=== PATIENT | male | born 1955 | race Caucasian/White ===

== ENCOUNTER 2022-09-04 12:30 | Outpatient (RCR) | payer OTHER, SELFPAY | END 2022-09-18 13:25 | disposition home or self-care (01) | LOC: PT 12:30 | PROVIDERS: PCP Nurse Practitioner Family | DX: M51.36 Other intervertebral disc degeneration, lumbar region (principal); M54.9 Dorsalgia, unspecified | CPT/HCPCS: 97010; 97014; 97110; 97140; 97163 ==

== ENCOUNTER 2022-09-06 09:55 | Outpatient (OUT) | payer OTHER, SELFPAY ==
--- NOTE | 2022-09-06 10:05 | PM.CN ---
Consult Note: HPI Data of Consult Patient: known to practice within the last 3 years Consult date: 09/06/22 Requesting Physician: CASIE THOMAS NP Primary Care Provider: KATHERINE MARTINEZ Consult Narrative Reason for consult: back pain Narrative: Patient is here for f/u of back pain . Pain today is bilat lumbar area and travels to right thigh with heaviness to right leg . He is seeing neurosurgeon for surgery eval. He is currently undergoing PT. No new sensorimotor or bowel or bladder issues. No adverse medication SE. Medication regimen assists patient with being better able to complete ADLs. cc:: CC: CASIE THOMAS NP Review of Systems ROS Status of ROS 10 or more systems reviewed and unremarkable except as noted in history and below Musculoskeletal Reports: back pain Exam Constitutional Documenting provider has reviewed patient's vital signs: yes Common normals: no apparent distress, average body habitus, oriented x3, healthy appearing, alert and well nourished General appearance: cooperative, comfortable and well developed Orientation/consciousness: Yes awake, Yes oriented to person, Yes oriented to place and Yes oriented to time HENMT Common normals: normocephalic and moist oral mucous membranes Respiratory Common normals: normal respiratory effort, no retractions and no use of accessory muscles Effort & inspection: able to speak in complete sentences and symmetric chest movement Back & Pelvis Lumbar spine/lower back: ROM limited, pain with ROM, lumbar spinal tenderness, paraspinal muscle tenderness, paraspinal muscle spasm and straight leg raise negative bilaterally Other: positive facet loading muscle strength 3/5 right LE, 4/5 left with intact sensation Assessment and Plan Assessment and Plan (1) Lumbar spondylosis: (2) Muscle spasm: Plan yearly UDS do not take NSAIDS with eliquis keep f/u with neurosurgeon
== END 2022-09-06 09:56 | disposition home or self-care (01) ==
LOC: PM 09:55
PROVIDERS: PCP Nurse Practitioner Family; Visit Provider Nurse Practitioner
DX: M47.816 Spondylosis without myelopathy or radiculopathy, lumbar region (principal); M62.838 Other muscle spasm
CPT/HCPCS: G0463

== ENCOUNTER 2022-11-08 10:52 | Observation (INO) | payer OTHER, SELFPAY ==
[2022-11-08 10:55] VITALS: BP 155/101; PULSE 77; RESP 16; TEMP 36.4; O2SAT 96; BMI 27.1
--- NOTE | 2022-11-08 11:04 | ECG_ITS ---
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
--- NOTE | 2022-11-08 11:05 | ED_ITS ---
HPI - General Adult General Chief complaint: Back Pain/Injury Stated complaint: POST OP SURGICAL PROBLEMS Time Seen by Provider: 11/08/22 10:54 Source: patient and family Mode of arrival: Wheelchair Limitations: physical limitation History of Present Illness HPI narrative: 67-year-old male presents for not being able to take care of himself. Four days ago he had lumbar surgery and had hardware installed. He was released home yesterday and he feels he was released too early and he can't take care of himself. He does have a physical complaints such as a fever or vomiting. He is on oxycodone at home for the pain. He's having trouble getting up and moving around and caring for himself. His physicians office directed here. Related Data Home Medications Medication Instructions Recorded Confirmed acetaminophen 325 mg tablet 325 mg PO Q6H PRN pain 09/06/22 11/08/22 (Tylenol) albuterol sulfate 90 mcg/actuation 2 puff inhalation Q4H PRN 09/06/22 11/08/22 aerosol inhaler shortness of breath or wheezing apixaban 5 mg tablet (Eliquis) 5 mg PO Q12H 09/06/22 11/08/22 atorvastatin 40 mg tablet 40 mg PO QDAY 09/06/22 11/08/22 baclofen 10 mg tablet 10 mg PO QDAY 09/06/22 11/08/22 eye promise QDAY 09/06/22 furosemide 20 mg tablet 20 mg PO QDAY 09/06/22 11/08/22 lisinopril 20 mg tablet 20 mg PO QDAY 09/06/22 11/08/22 metoprolol tartrate 25 mg tablet 25 mg PO QDAY 09/06/22 11/08/22 naloxone 4 mg/actuation nasal spray intranasal Q3M 09/06/22 nortriptyline 25 mg capsule 25 mg PO .hs 09/06/22 11/08/22 omeprazole 40 mg capsule,delayed 40 mg PO QDAY 09/06/22 11/08/22 release oxybutynin chloride 10 mg 10 mg PO QDAY 09/06/22 11/08/22 tablet,extended release 24 hr oxycodone-acetaminophen 5 mg-325 1 tab PO BID PRN pain 09/06/22 11/08/22 mg tablet potassium chloride 10 mEq 10 meq PO QDAY 09/06/22 11/08/22 tablet,extended release celecoxib 200 mg capsule (Celebrex) 200 mg PO BID 11/08/22 11/08/22 docusate sodium 100 mg capsule 100 mg PO BID 11/08/22 11/08/22 Previous Rx's Medication Instructions Recorded nortriptyline 25 mg capsule 25 mg PO DAILY pain #30 caps 10/07/22 oxycodone-acetaminophen 5 mg-325 1 tab PO BID PRN pain #60 tabs 10/07/22 mg tablet (Percocet) Allergies Allergy/AdvReac Type Severity Reaction Status Date / Time No Known Drug Allergies Allergy Verified 11/08/22 11:02 Review of Systems ROS Narrative A ten point review of systems is negative except as noted above. Exam Narrative Exam Narrative: Nurses note and vital signs reviewed and patient is not hypoxic. General: The patient appears well and in no apparent distress. Patient is resting comfortably on cart. Skin: Warm, dry, no pallor noted. There is no rash noted. Head: Normocephalic, atraumatic Eye: Normal conjunctiva, no drainage Ears, Nose, Mouth, and Throat: oral mucosa is moist. Nares patent. Cardiovascular: Regular Rate and Rhythm Respiratory: Patient is in no distress, no accessory muscle use, lungs are clear to auscultation, no wheezing, rales or rhonchi Back: surgical dressing in place. No visible erythema GI: soft and nontender Musculoskeletal: The patient has no evidence of calf tenderness, no pitting edema, symmetrical pulses noted bilaterally Neurological: A&O, normal speech Psychiatric: Cooperative Constitutional Vital Signs, click to edit/add: Last Vital Signs Temp 97.5 F L 11/08/22 10:55 Pulse 64 11/08/22 12:31 Resp 16 11/08/22 10:55 BP 153/81 H 11/08/22 12:31 Pulse Ox 96 11/08/22 12:31 O2 Del Method Room Air 11/08/22 10:55 Course Vital Signs Vital signs: Vital Signs Temperature 97.5 F L 11/08/22 10:55 Pulse Rate 77 11/08/22 10:55 Respiratory Rate 16 11/08/22 10:55 Blood Pressure 155/101 H 11/08/22 10:55 Pulse Oximetry 96 11/08/22 10:55 Oxygen Delivery Method Room Air 11/08/22 10:55 Temperature 97.5 F L 11/08/22 10:55 Pulse Rate 64 11/08/22 12:31 Respiratory Rate 16 11/08/22 10:55 Blood Pressure 153/81 H 11/08/22 12:31 Pulse Oximetry 96 11/08/22 12:31 Oxygen Delivery Method Room Air 11/08/22 10:55 Medical Decision Making MDM Narrative Medical decision making narrative: the patient is unable to take care of himself and he'll be admitted for probable ECF placement. Differential Diagnosis Differential Diagnosis: generalized weakness, anemia Lab Data Lab results reviewed: Yes I reviewed the patient's lab results Labs: Lab Results 11/08/22 11/08/22 Range/Units 11:15 12:05 WBC 9.9 (4.0-11.0) 10^3/uL RBC 4.03 L (4.70-6.10) 10^6/uL Hgb 12.6 L (14.0-18.0) g/dL Hct 38.1 L (42.0-54.0) % MCV 94.5 H (80.0-94.0) fL MCH 31.3 (25.9-34.0) pg MCHC 33.1 (29.9-35.2) g/dL RDW 13.7 (11.0-15.0) % Plt Count 222 (150-450) 10^3/uL MPV 10.5 (9.5-13.5) fL Neut % (Auto) 76.7 H (43.0-75.0) % Lymph % (Auto) 11.1 L (20.5-60.0) % [place] % (Auto) 8.6 (1.7-12.0) % Eos % (Auto) 2.2 (0.9-7.0) % Baso % (Auto) 0.8 (0.2-2.0) % Neut # (Auto) 7.6 H (1.4-6.5) 10^3/uL Lymph # (Auto) 1.1 L (1.2-3.8) 10^3/uL [place] # (Auto) 0.9 H (0.3-0.8) 10^3/uL Eos # (Auto) 0.2 (0.0-0.7) 10^3/uL Baso # (Auto) 0.1 (0.0-0.1) 10^3/uL Abs Immat Gran (auto) 0.06 H (0.00-0.03) 10^3/uL Imm/Tot Granulo (auto) 0.6 H (0.0-0.5) % Sodium 136 (136-145) mmol/L Potassium 3.9 (3.5-5.1) mmol/L Chloride 102 (98-107) mmol/L Carbon Dioxide 27.0 (21.0-32.0) mmol/L Anion Gap 10.9 BUN 11.0 (7.0-18.0) mg/dL Creatinine 1.29 (0.70-1.30) mg/dL Est GFR ( Amer) >60 (>=60) Est GFR (Non-Af Amer) 56 L (>=60) BUN/Creatinine Ratio 8.5 Glucose 97 (74-106) mg/dL Calcium 8.5 (8.5-10.1) mg/dL Urine Color Yellow (YELLOW) Urine Clarity Clear (CLEAR) Urine pH 7.0 (5.0-9.0) Ur Specific [place] 1.020 (1.005-1.025) Urine Protein Negative (NEG/TRACE) mg/dL Urine Glucose (UA) Negative (NEGATIVE) mg/dL Urine Ketones Trace A (NEGATIVE) mg/dL Urine Occult Blood Negative (NEGATIVE) Urine Nitrite Negative (NEGATIVE) Urine Bilirubin Negative (NEGATIVE) Urine Urobilinogen 0.2 (0.2-1.0) EU/dL Ur Leukocyte Esterase Negative (NEGATIVE) ECG Data Attestation: I personally reviewed and interpreted this ECG as follows: (EKG on my interpretation shows normal sinus rhythm) Discharge Plan Discharge Chief Complaint: Back Pain/Injury Clinical Impression: Generalized weakness Patient Disposition: Admitted as Observation Time of Disposition Decision: 12:38 Condition: Good Prescriptions / Home Meds: No Action nortriptyline 25 mg capsule 25 mg PO DAILY Qty: 30 2RF oxycodone-acetaminophen [Percocet] 5-325 mg tablet 1 tab PO BID PRN (Reason: pain) Qty: 60 0RF albuterol sulfate 90 mcg/actuation HFA aerosol inhaler 2 puff INHALATION Q4H PRN (Reason: shortness of breath or wheezing) Hold Instructions: Doctor's Order Eliquis 5 mg tablet 5 mg PO Q12H atorvastatin 40 mg tablet 40 mg PO QDAY baclofen 10 mg tablet 10 mg PO QDAY furosemide 20 mg tablet 20 mg PO QDAY lisinopril 20 mg tablet 20 mg PO QDAY metoprolol tartrate 25 mg tablet 25 mg PO QDAY naloxone 4 mg/actuation spray,non-aerosol INTRANASAL Q3M nortriptyline 25 mg capsule 25 mg PO .hs omeprazole 40 mg capsule,delayed release(DR/EC) 40 mg PO QDAY oxybutynin chloride 10 mg tablet extended release 24hr 10 mg PO QDAY oxycodone-acetaminophen 5-325 mg tablet 1 tab PO BID PRN (Reason: pain) potassium chloride 10 mEq tablet extended release 10 meq PO QDAY acetaminophen [Tylenol] 325 mg tablet 325 mg PO Q6H PRN (Reason: pain) eye promise QDAY celecoxib [Celebrex] 200 mg capsule 200 mg PO BID docusate sodium 100 mg capsule 100 mg PO BID Referrals: KATHERINE MARTINEZ [Primary Care Provider] - 1 week
--- NOTE | 2022-11-08 11:12 | PC.NURSE ---
pt had back surgery to correct bulging discs on 11/04. had stayed in hospital for the last few days, and was d/c'd yesterday. Pt worried he is unable to take care of himself at home at this time and believes he needs to go to a rehab facility.
[2022-11-08 11:47] LABS: Basophils Absolute Auto 0.1 10^3/uL (0.0-0.1); Basophils Percent Auto 0.8 % (0.2-2.0); Eosinophils Absolute Auto 0.2 10^3/uL (0.0-0.7); Eosinophils Percent Auto 2.2 % (0.9-7.0); Hematocrit 38.1 % (42.0-54.0); Hemoglobin 12.6 g/dL (14.0-18.0); Immature Granulocytes Abs Auto 0.06 10^3/uL (0.00-0.03); Immature Granulocytes Pct Auto 0.6 % (0.0-0.5); Lymphocytes Absolute Auto 1.1 10^3/uL (1.2-3.8); Lymphocytes Percent Auto 11.1 % (20.5-60.0); Mean Corpuscular HGB Conc 33.1 g/dL (29.9-35.2); Mean Corpuscular Hemoglobin 31.3 pg (25.9-34.0); Mean Corpuscular Volume 94.5 fL (80.0-94.0); Mean Platelet Volume 10.5 fL (9.5-13.5); Monocytes Absolute Auto 0.9 10^3/uL (0.3-0.8); Monocytes Percent Auto 8.6 % (1.7-12.0); Neutrophils Absolute Auto 7.6 10^3/uL (1.4-6.5); Neutrophils Percent Auto 76.7 % (43.0-75.0); Platelet Count 222 10^3/uL (150-450); Red Blood Count 4.03 10^6/uL (4.70-6.10); Red Cell Distribution Width 13.7 % (11.0-15.0); White Blood Count 9.9 10^3/uL (4.0-11.0)
[2022-11-08 11:57] LABS: Anion Gap 10.9; BUN Creatinine Ratio 8.5; Calcium 8.5 mg/dL (8.5-10.1); Chloride 102 mmol/L (98-107); Estimated GFR (African America >60 (>=60); Estimated GFR (Non-African Ame 56 (>=60); Glucose 97 mg/dL (74-106); Potassium 3.9 mmol/L (3.5-5.1); Sodium 136 mmol/L (136-145)
[2022-11-08 12:20] LABS: Bilirubin Urine NEGATIVE (NEGATIVE); Blood Urine NEGATIVE (NEGATIVE); Clarity Urine CLEAR (CLEAR); Color Urine YELLOW (YELLOW); Glucose Urine UA NEGATIVE (NEGATIVE); Ketones Urine TRACE mg/dL (NEGATIVE); Leukocyte Esterase Urine NEGATIVE (NEGATIVE); Nitrite Urine NEGATIVE (NEGATIVE); Protein Urine NEGATIVE (NEG/TRACE); Urobilinogen Urine 0.2 EU/dL (0.2-1.0)
[2022-11-08 12:31] VITALS: BP 153/81; PULSE 64; O2SAT 96
[2022-11-08 12:52] VITALS: BP 154/85; PULSE 65; RESP 18; TEMP 36.5; O2SAT 94
[2022-11-08 13:31] VITALS: BMI 30.7
[2022-11-08 13:46] LABS: Bacteria Urine NONE SEEN #/HPF (NONE SEEN); Cast Seen? NONE SEEN #/LPF (NONE SEEN); Crystals Seen? None Seen #/HPF (None Seen); Mucus Urine NONE SEEN (NONE SEEN); RBC Urine NONE SEEN #/HPF (0-2); Squamous Epithelial Cell Urine RARE #/LPF (NONE/RARE); Urine Culture Indicated NO; WBC Urine NONE SEEN #/HPF (NONE SEEN)
--- NOTE | 2022-11-08 14:23 | SWNOTE1 ---
ARABELLA met with pt to discuss dc needs. Pt lives at home with his brother currently. He had back surgery a few days ago and was discharged yesterday. He was not able to care for himself at home. He stated he was using a walker, but it was not going very good. Pt stated his brother is in worse shape than him so he was not able to help much. Pt wants to go to rehab. 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 Pt would like to go to [facility]. ARABELLA explained to pt he is a precert and SW to see if therapy can see him today to get precert started. SW did let him know it may be a few days before the insurance company approves or denies pt. SW let him know it is possible insurance could deny. Pt voiced understanding. ARABELLA spoke with OT and they are going to see pt and will let PT know as well. ARABELLA sent referral to [facility].
--- NOTE | 2022-11-08 15:52 | SWNOTE1 ---
[facility] can accept once precert goes through. They will start precert once PT/OT is received.
[2022-11-08 16:00] VITALS: O2SAT 92
--- NOTE | 2022-11-08 16:25 | SWNOTE1 ---
PT/OT notes were sent to [facility] for them to start precert.
[2022-11-08 20:10] VITALS: O2SAT 93
[2022-11-08 20:28] VITALS: BP 133/68; PULSE 74; RESP 18; TEMP 36.5; O2SAT 92
[2022-11-08] MEDS: APIXABAN 5 MG TABLET PO (21:53)
[2022-11-08] MEDS: CELECOXIB 200 MG CAPSULE PO (21:53)
[2022-11-08] MEDS: DOCUSATE SODIUM 100 MG CAPSULE PO (21:53)
[2022-11-08] MEDS: METOPROLOL TARTRATE 25 MG TABLET PO (21:53)
[2022-11-08] MEDS: NORTRIPTYLINE HCL 25 MG CAPSULE PO (21:53)
[2022-11-09 04:51] VITALS: BP 130/76; PULSE 66; RESP 16; TEMP 36.5; O2SAT 94
[2022-11-09] MEDS: OXYBUTYNIN CHLORIDE 5 MG TAB XL 10 MG PO (09:47)
[2022-11-09] MEDS: POTASSIUM CHLORIDE 10 MEQ ER TABLET PO (09:47)
[2022-11-09] MEDS: DOCUSATE SODIUM 100 MG CAPSULE PO (09:47)
[2022-11-09] MEDS: APIXABAN 5 MG TABLET PO (09:47)
[2022-11-09] MEDS: METOPROLOL TARTRATE 25 MG TABLET PO (09:47)
[2022-11-09] MEDS: LISINOPRIL 20 MG TABLET PO (09:47)
[2022-11-09] MEDS: ATORVASTATIN CALCIUM 40 MG TABLET PO (09:47)
[2022-11-09] MEDS: OMEPRAZOLE 40 MG CAPSULE.DR PO (09:47)
[2022-11-09] MEDS: FUROSEMIDE 20 MG TABLET PO (09:47)
[2022-11-09] MEDS: CELECOXIB 200 MG CAPSULE PO (09:50)
--- NOTE | 2022-11-09 10:30 | PT.DAILY ---
Physical Therapy Daily Note PT Daily Note/Assess Start: 11/09/22 10:26 Freq: Status: Active Protocol: Document 11/09/22 09:50 RODY (Rec: 11/09/22 10:30 RODY [id number]) Physical Therapy Daily Note/Assessment Time In/Time Out Time In 09:50 Time Out 10:05 Pain In Pain Level 4 Pain Out Pain Level 4 Subjective Subjective Patient reports feeling better , want's to get up and moving. This back surgery has been harder than I thought it would be. Therapeutic Activity Time Therapeutic Activity Minutes (minutes) 15 Therapeutic Activity Units 1 Therapeutic Activity Treatment Bed Mobility Ability Minimum Assist Chair Transfer Ability Standby Assistance Therapeutic Activity Comments Patient requires verbal cues for safe back transfers requiring min assist. Sit to stand at RW SBA. Gait with RW 45 ft. initially with CGA, but as patient fatigues and legs become shaky needed min assist at times with extended standing rest breaks. Total Physical Therapy Time Total Therapy Minutes 15 Total Physical Therapy Units 1 Summary Daily Note Summary Gait is limited with fatigue as legs become shaky after short distances requiring increased assistance. Patient is having increased difficulty completing ADL's in timely manner post SX and would recommend SNF at discharge from acute care facility to improve patient's safety and ability to completed ADL's.
[2022-11-09 10:40] VITALS: O2SAT 94
--- NOTE | 2022-11-09 12:43 | P.HP_ITS ---
H&P: HPI History of Present Illness Chief complaint: POST OP SURGICAL PROBLEMS, GENERALIZED WEAKNESS Narrative: Patient presented to the emergency room with increasing back pain since his back surgery. This can able to manage himself at home. Due to pain control and inability to ambulate safely. Review of Systems ROS Status of ROS 10 or more systems reviewed and unremarkable except as noted in history and below [facility] Medical History (Updated 11/08/22 @ 14:27 by Penelope Yin) Meds Home Medications and Allergies Home Medications Medication Instructions Recorded Confirmed Type acetaminophen 325 mg tablet 325 mg PO Q6H PRN pain 09/06/22 11/08/22 History (Tylenol) albuterol sulfate 90 mcg/actuation 2 puff inhalation Q4H PRN 09/06/22 11/08/22 History aerosol inhaler shortness of breath or wheezing apixaban 5 mg tablet (Eliquis) 5 mg PO Q12H 09/06/22 11/08/22 History atorvastatin 40 mg tablet 40 mg PO QDAY 09/06/22 11/08/22 History baclofen 10 mg tablet 10 mg PO QDAY 09/06/22 11/08/22 History eye promise QDAY 09/06/22 History furosemide 20 mg tablet 20 mg PO QDAY 09/06/22 11/08/22 History lisinopril 20 mg tablet 20 mg PO QDAY 09/06/22 11/08/22 History metoprolol tartrate 25 mg tablet 25 mg PO Q12H 09/06/22 11/08/22 History naloxone 4 mg/actuation nasal spray intranasal Q3M 09/06/22 History nortriptyline 25 mg capsule 25 mg PO BEDTIME 09/06/22 11/08/22 History omeprazole 40 mg capsule,delayed 40 mg PO QDAY 09/06/22 11/08/22 History release oxybutynin chloride 10 mg 10 mg PO QDAY 09/06/22 11/08/22 History tablet,extended release 24 hr oxycodone-acetaminophen 5 mg-325 1 tab PO BID PRN pain 09/06/22 11/08/22 History mg tablet potassium chloride 10 mEq 10 meq PO QDAY 09/06/22 11/08/22 History tablet,extended release celecoxib 200 mg capsule (Celebrex) 200 mg PO BID 09/15/23 09/15/23 History docusate sodium 100 mg capsule 100 mg PO BID 11/08/22 11/08/22 History Allergies Allergy/AdvReac Type Severity Reaction Status Date / Time No Known Drug Allergies Allergy Verified 11/08/22 11:02 Exam Constitutional Vital Signs, click to edit/add: Last Vital Signs Temp 97.7 F 11/09/22 04:51 Pulse 66 11/09/22 04:51 Resp 16 11/09/22 04:51 BP 130/76 11/09/22 04:51 Pulse Ox 94 L 11/09/22 04:51 O2 Del Method Room Air 11/09/22 04:51 Documenting provider has reviewed patient's vital signs: yes Common normals: apparent distress Chest Common normals: inspection of chest normal Respiratory Common normals: normal respiratory effort Cardio Common normals: regular rate, regular rhythm and S2 normal heart sound Back & Pelvis Common normals: no CVA tenderness (Weakness in lower extremity secondary to the pain.) Assessment and Plan Assessment and Plan (1) Muscle spasm: (2) Lumbar spondylosis: (3) Generalized weakness: Plan Weakness in lower extremity secondary to pain secondary to recent back surgery with failed home management. Patient needs rehab for patient safety. Will discuss with the [facility] for discharge once approved by insurance. Follow-up with PCP at discharge from rehab. Medications see list.
[2022-11-09 14:00] VITALS: BP 138/77; PULSE 65; RESP 18; TEMP 36.7; O2SAT 94
== END 2022-11-09 18:01 ==
LOC: ER 13:09 → MS 13:14
PROVIDERS: Admitting Provider Family Medicine; Emergency Provider Emergency Medicine; PCP Nurse Practitioner Family; Visit Provider Family Medicine
DX: R53.1 Weakness (principal); M62.838 Other muscle spasm; M47.816 Spondylosis without myelopathy or radiculopathy, lumbar region; M54.9 Dorsalgia, unspecified; Z79.899 Other long term (current) drug therapy; Z79.01 Long term (current) use of anticoagulants; Z98.890 Other specified postprocedural states
CPT/HCPCS: 36415; 80048; 81001; 85025; 93005; 94761; 97163; 97165; 97530; 99285; G0378

== ENCOUNTER 2022-12-12 09:50 | Outpatient (OUT) | payer OTHER, SELFPAY ==
--- NOTE | 2022-12-12 10:19 | PM.CN ---
Consult Note: HPI Data of Consult Patient: known to practice within the last 3 years Requesting Physician: CASIE THOMAS NP Primary Care Provider: Radames Ricks MD Consult Narrative Reason for consult: F/u Narrative: uGstavo Morales a pleasant 67 year old male presents for evaluation and management of chronic back pain. Patient recently had back surgery, lumbar fusion, and is currently in PT. Patient following up with [facility] in January. Reports 85% pain relief post surgery, continues to benefit from current medication regimen. cc:: CC: CASIE THOMAS NP Review of Systems ROS Status of ROS 10 or more systems reviewed and unremarkable except as noted in history and below Musculoskeletal Reports: back pain PFSH PFSH Medical History Fixation hardware in spine ?Z96.7 - Presence of other bone and tendon implants (ICD-10) Fusion of lumbar spine ?M43.26 - Fusion of spine, lumbar region (ICD-10) Generalized weakness ?R53.1 - Weakness (ICD-10) Pulmonary embolism ?I26.99 - Other pulmonary embolism without acute cor pulmonale (ICD-10) Meds Home Medications and Allergies Home Medications Medication Instructions Recorded Confirmed Type acetaminophen 325 mg tablet 325 mg PO Q6H PRN pain 09/06/22 11/08/22 History (Tylenol) albuterol sulfate 90 mcg/actuation 2 puff inhalation Q4H PRN 09/06/22 11/08/22 History aerosol inhaler shortness of breath or wheezing apixaban 5 mg tablet (Eliquis) 5 mg PO Q12H 09/06/22 11/08/22 History atorvastatin 40 mg tablet 40 mg PO QDAY 09/06/22 11/08/22 History baclofen 10 mg tablet 10 mg PO QDAY 09/06/22 11/08/22 History eye promise QDAY 09/06/22 History furosemide 20 mg tablet 20 mg PO QDAY 09/06/22 11/08/22 History lisinopril 20 mg tablet 20 mg PO QDAY 09/06/22 11/08/22 History metoprolol tartrate 25 mg tablet 25 mg PO Q12H 09/06/22 11/08/22 History naloxone 4 mg/actuation nasal spray intranasal Q3M 09/06/22 History nortriptyline 25 mg capsule 25 mg PO BEDTIME 09/06/22 11/08/22 History omeprazole 40 mg capsule,delayed 40 mg PO QDAY 09/06/22 11/08/22 History release oxybutynin chloride 10 mg 10 mg PO QDAY 09/06/22 11/08/22 History tablet,extended release 24 hr oxycodone-acetaminophen 5 mg-325 1 tab PO BID PRN pain 09/06/22 11/08/22 History mg tablet potassium chloride 10 mEq 10 meq PO QDAY 09/06/22 11/08/22 History tablet,extended release celecoxib 200 mg capsule (Celebrex) 200 mg PO BID 11/08/22 11/08/22 History docusate sodium 100 mg capsule 100 mg PO BID 11/08/22 11/08/22 History oxycodone-acetaminophen 5 mg-325 1 tab PO BID PRN pain #60 tabs 12/12/22 Rx mg tablet (Percocet) Allergies Allergy/AdvReac Type Severity Reaction Status Date / Time No Known Drug Allergies Allergy Verified 11/08/22 11:02 Exam Constitutional Documenting provider has reviewed patient's vital signs: yes Common normals: no apparent distress, oriented x3, healthy appearing, alert and well nourished General appearance: cooperative HENNY Common normals: normocephalic, hearing grossly normal bilaterally and moist oral mucous membranes Head and scalp: normocephalic Eye Common normals: PERRL Pupil: PERRL Neck & C-Spine Common normals: full ROM General: normal visual inspection Chest Common normals: inspection of chest normal Respiratory Common normals: normal respiratory effort, no retractions and no use of accessory muscles Back & Pelvis Lumbar spine/lower back: ROM limited and straight leg raise negative bilaterally Other: surgical scar healed, no redness tenderness or warmth mild back pain no radiculopathy Neuro Common normals: oriented x3, CN's II-XII intact bilaterally, moves all extremities, no focal motor deficits, no sensory deficits noted and deep tendon reflexes 2+ bilaterally Sensorium/orientation: alert Motor exam: strength 5/5 throughout and no movement abnormalities noted Psych Common normals: mental status grossly normal, thought process normal, cooperative, affect normal, speech normal and activity/motor behavior normal Speech: normal speech Thought process: normal thought process Results Additional Findings Additional findings: I have checked an [facility] report on this patient today and there are no aberrancies noted in the prescribing history.?? A drug screen was completed and reviewed within the last year, and if there has not been a drug screen completed we ordered one today to monitor higher risk, state monitored pain medication use. As part of providing excellent, safe, comprehensive care, the following was completed at our patient's visit: 1. A medication reconciliation and review to ensure accurate knowledge of current/active medications, including asking our patients to inform us about any [id number] medications or herbal remedies/nutritional supplements/alternative remedies. 2. A review to specifically ensure our patients have had annual screening for: elevated body mass index (BMI), tobacco use, screening for depression, and screening for unhealthy alcohol use. When screening is concerning, patients are provided with education and the specific recommendation to discuss the concerning health issue and treatment options with their primary care provider. Assessment and Plan Assessment and Plan (1) Lumbar spondylosis: (2) Fusion of lumbar spine: Plan continue current medication regimen, tolerating well without side effects discussed using percocet BID PRN, consistently takes BID f/u with neurosurgery as planned in january f/u 3 months
== END 2022-12-12 09:51 | disposition home or self-care (01) ==
PROVIDERS: PCP Family Medicine; Visit Provider Nurse Practitioner
DX: M47.896 Other spondylosis, lumbar region (principal); M43.27 Fusion of spine, lumbosacral region
CPT/HCPCS: G0463

== ENCOUNTER 2022-12-21 11:49 | Outpatient (OUT) | payer OTHER, SELFPAY ==
[2022-12-21 16:03] LABS: Prostate Specific Antigen Dx <0.13 ng/mL (<=4.00)
== END 2022-12-21 11:50 | disposition home or self-care (01) ==
PROVIDERS: PCP Family Medicine; Visit Provider Urology
DX: Z85.46 Personal history of malignant neoplasm of prostate (principal)
CPT/HCPCS: 36415; 84153

== ENCOUNTER 2023-03-19 09:38 | Outpatient (OUT) | payer OTHER, SELFPAY ==
--- OUTSIDE RECORDS SUMMARY | 2023-03-19 09:43 | XMS_ITS | CCD ---
Author Name Unknown Address [address] [place] [address] Organization [facility] Care Team Providers Care [employer] Con[employer] Finishing Supervisor Name Role Phone Jean Nicholson Unavailable Unavailable Unavailable Julian Matthews Unavailable [phone] Bianka Garcia Unavailable Danna Mcdaniel Unavailable Carmen Witt Unavailable BAMUANN .LAUREN Consulting Unavailable JUAN, KATHERINE Primary Care Unavailable ANDERSON ., DR LORENA Dunham Attending Unavailable ANDERSON ., DR LORENA Dunham Admitting Unavailable BAUMANN .LAUREN Consulting Unavailable JEAN NICHOLSON Primary Care Unavailable ANDERSON ., DR LORENA Dunham Attending Unavailable ANDERSON ., DR LORENA Dunham Admitting Unavailable JUAN, KATHERINE Primary Care Unavailable LAKSHMIPATHY ., MIKE Attending Aracely vailable LAKSHMIPATHY ., MIKE Admitting Aracely vailable HOY ., DR MORALES Consulting Unavailable JUAN, KATHERINE Primary Care Unavailable HOY ., DR MORALES Attending Unavailable HOY ., DR MORALES Admitting Unavailable ZIEBER, DR BRITANY Calabrese Consulting Unavailable ZITOSHA, DR BRITANY Calabrese Consulting Unavailable JUAN, KATHERINE Primary Care Unavailable JUAN, KATHERINE Attending Unavailable JUAN, AKTHERINE Admitting Unavailable JUAN, KATHERINE Consulting Unavailable RAINER ., DR PICHARDO Consulting Unavailable JUAN, KATHERINE Primary Care Unavailable RAINER ., DR PICHARDO Attending Unavailable RAINER ., DR PICHARDO Admitting Unavailable ZIEBER, DR BRITANY Calabrese Consulting Unavailable JUAN, KATHERINE Primary Care Unavailable KATHERINE MARTINEZ Attending Unavailable JUAN, KATHERINE Admitting Unavailable JUAN, KATHERINE Consulting Unavailable SALOMÓN, DR IRAIS Ramos Consulting Unavailable JUAN, KATHERINE Primary Care Unavailable JUAN, KATHERINE Attending Unavailable JUAN, KATHERINE Admitting Unavailable JUAN, KATHERINE Consulting Unavailable JUAN, KATHERINE Consulting Unavailable JUAN, KATHERINE Primary Care Unavailable JUAN, KATHERINE Attending Unavailable JUAN, KATHERINE Admitting Unavailable KUNAL, CYNDI Consulting Unavailable KUNAL, CYNDI Attending Unavailable KUNAL, CYNDI Admitting Unavailable JEAN NICHOLSON Primary Care Unavailable DRAGAN PALENCIA Consulting Unavailable JUSTIN ., DR LORENA Dunham Consulting Unavailable JUAN, KATHERINE Primary Care Unavailable ANDERSON ., DR LORENA Dunham Attending Unavailable ANDERSON ., DR LORENA Dunham Admitting Unavailable BAUMANN ., LAUREN Consulting Unavailable BAUMANN ., LAUREN Consulting Unavailable JUAN, KATHERINE Primary Care Unavailable ANDERSON ., DR LORENA Dunham Attending Unavailable ANDERSON ., DR LORENA Dunham Admitting Unavailable MD Jean Nicholson Primary Care Provider EDEL Garcia Attending Provider Dr. eJan Nicholson Primary Care Leonor Go, Dr. Cecilio Harman Referring Aracely vailable Lyla, Dr. Cecilio Harman Attending Aracely vamaya Witt, Dr. Carmen Fabian Primary Care Unavail able Lyla, Dr. Cecilio Harman Referring Aracely vailable Lyla, Dr. Cecilio Harman Attending Aracely Carmen Connor Unavailable Curtis Meléndez Unavailable Cayden Flores Unavailable Unavailable Cecilio Go Unavailable CECILIO GO Attending Unavailable CARMEN WITT Primary Care Unavailable Millicent, Dr. Carmen Fabian Primary Care Unavail able Ángela, Dr. Curtis Keys Attending Leonor Meléndze, Dr. Curtis Keys Attending Leonor Witt, Dr. Carmen Fabian Primary Care Unavail able Millicent, Dr. Carmen Fabian Primary Care Unavail able Ángela, Dr. Curtis Keys Attending Leonor Meléndez, Dr. Curtis Keys Attending Leonor Witt, Dr. Carmen Fabian Primary Care Unavail harini Witt, Dr. Carmen Fabian Primary Care Unavail harini Meléndez, Dr. Curtis Keys Attending Leonor Go, Dr. Cecilio Harman Attending Aracely Witt, Dr. Carmen Fabian Primary Care Unavail harini Meléndez, Dr. Curtis Keys Attending Leonor Meléndez, Dr. Curtis Keys Admitting Leonor Witt, Dr. Carmen Fabian Referring Unavail harini Witt, Dr. Carmen Fabian Primary Care Unavail Carmen Li Primary Care Physician Marino SPEAR Attending Unavailable Marino SPEAR Attending Unavailable Carmen Witt MD Primary Care Provider [phone] CURTIS MELÉNDEZ Attending Unavailable CARMEN WITT Primary Care Unavailable CURTIS MELÉNDEZ Referring Unavailable CARMEN WITT Primary Care Unavailable MD Jean Nicholson Primary Care Provider JESSICA Mcdaniel Attending Provider Danna Mcdaniel Attending Unavailable Jean Nicholson Primary Care Unavailable Danna Mcdaniel Admitting Unavailable Bianka Garcia Admitting Unavailable Bianka Garcia Attending Unavailable Jean Nicholson [facility] Unavailable Allergies Allergy Classification Reported Allergen(s) Allergy Type Date of Onset Reaction(s) Facility (20 sources) Nitroglycerin; Translations: [nitroglycerin] Drug Allergy 2 Other [facility] (9 sources) Nitroglycerin Drug Allergy Unknown [facility] Other (1 source) Aminolevulinic Acid Drug Allergy [facility] Rep[facility] (1 source) Nitroglycerin Drug Allergy 2 [facility] Repository Medications Current Medications Medication Drug Class(es) Dates Sig (Normalized) Sig (Original) acetaminophen 325 mg / oxyCODONE hydrochloride 5 mg oral tablet (20 sources) Opioid Agonist Start: 11-07-2022 End: 11-13-2022 take 1 tablet by mouth every six hours as needed oxycodone-acetamino phen 5 mg-325 mg oral tablet ; 1 tab(s) orally every 6 hours x 7 days, As Needed Quantity: 28 Refills: 0 Ordered: 07-Nov-2022 Gilda Mcmahon Start: 07-Nov-2022 End: 13-Nov-2022 Generic Substitution Allowed Comments: Caution federal law prohibits the transfer of this drug to any person other than the person for whom it was prescribed.May cause drowsiness. Alcohol may intensify this effect. Use care when operating dangerous machinery.This prescription cannot be refilled.This product contains acetaminophen. Do not use with any other product containing acetaminophen to prevent possible liver damage.Using more of this medication than prescribed may cause serious breathing problems. Start: 02-01-2021 take 1 tablet by siobhan th twice daily Oxycodone-Acetaminophen Active 1 TAB PO Twice daily July 13, 2021 11:00pm Start: 02-01-2021 oxyCODONE-Acet aminophen 5-325 MG Oral Tablet Quantity: 60 Refills: 0 Ordered: 01-Feb-2021 DO Start : 01-Feb-2021 Active Start: 11-16-2018 take 1 tablet by siobhan th every six hours Percocet 325 mg-5 mg Tab tab(s), Oral, q6hr, Refill(s) 0 Start Date: 11/16/18 Status: Ordered Comment on above: Caution federal law prohibits the transfer of this drug to any person other than the person for whom it was prescribed.May cause drowsiness. Alcohol may intensify this effect. Use care when operating dangerous machinery.This prescription cannot be refilled.This product contains acetaminophen. Do not use with any other product containing acetaminophen to prevent possible liver damage.Using more of this medication than prescribed may cause serious breathing problems. [id number] 200 actuat albuterol 0.09 mg/actuat metered dose inhaler (20 sources) beta2-Adrenergic Agonist Start: 07-15-19 take 1 puff(s) by inhalation every four hours Albuterol Sulfate Active 2 PUFF INHALATION Q4H July 13, 2021 11:00pm Start: 01-26-2021 Albuterol Sulf ate HFA 108 (90 Base) MCG/ACT Inhalation Aerosol Solution as directed Quantity: 0 Refills: 0 Ordered: 26-Jan-2021 DO Start : 26-Jan-2021 Active Start: 01-26-2021 Albuterol Sulf ate HFA 108 (90 Base) MCG/ACT Inhalation Aerosol Solution as directed Quantity: 0 Refills: 0 Ordered: 26-Jan-2021 DO Start : 26-Jan-2021 Active take 1 puff(s) by in halation every four hours as needed Albuterol Sulfate HFA 108 (90 Base) MCG/ACT 1 puff as needed Inhalation every 4 hrs Active take 1 puff(s) by in halation every four hours as needed Albuterol Sulfate HFA 108 (90 Base) MCG/ACT 1 puff as needed Inhalation every 4 hrs Active ProAir HFA 108 ( 90 Base) MCG/ACT Inhalation for 17 Active apixaban 5 mg oral tablet (20 sources) Factor Xa Inhibitor Start: 07-16-2021 take 1 tablet by mouth twice daily Apixaban (Eliquis Dvt-Pe Treat 30d Start) 5 mg (74 tabs) Tablets,Dose Pack Active 0 .ROUTE .COMPLEX 74 July 15, 2021 11:00pm orally per package directions then 5mg twice daily after completion of starter pack atorvastatin 40 mg oral tablet (20 sources) HMG-CoA Reductase Inhibitor Start: 07-16-2021 atorvastatin 40 mg Tab Refills(s) 0 Start Date: 12/23/22 Status: Ordered Baclofen (11 sources) gamma-Aminobutyr ic Acid-ergic Agonist Start: 12-23-2022 BACLOFEN 10MG TAB BACLOFEN 10MG TAB Start Date: 12/23/22 Status: Ordered Start: 07-14-2021 take 10 mg by mouth once daily Baclofen Active 10 MG PO Daily July 13, 2021 11:00pm Baclofen Active celecoxib 200 mg oral capsule (1 source) Nonsteroidal Anti-inflammatory Drug Start: 11-07-2022 End: 11-20-2022 take 1 capsule by mouth twice daily at mealtime CeleBREX 200 mg oral capsule ; 1 cap(s) orally 2 times a day x 14 days Quantity: 28 Refills: 0 Ordered: 07-Nov-2022 Gilda Mcmahon Start: 07-Nov-2022 End: 20-Nov-2022 Generic Substitution Allowed Comments: Do not take this drug if you are .Medication should be taken with plenty of water.Obtain medical advice before taking any non-prescription drugs as some may affect the action of this medication.Take with food or milk. Comment on above: Do not take this drug if you are pregnan t.Medication should be taken with plenty of water.Obtain medical advice before taking any non-prescription drugs as some may affect the action of this medication.Take with food or milk. docusate sodium 100 mg oral capsule (2 sources) Start: 11-07-2022 End: 11-07-2023 take 1 capsule by mouth twice daily docusate sodium (Colace) 100 mg capsule TAKE 1 CAPSULE BY MOUTH TWO TIMES A DAY FOR 30 DAYS 60 capsule 0 11/07/2022 11/07/2023 Active Comment on above: Medication should be taken with plenty o f water. furosemide 20 mg oral tablet (20 sources) Loop Diuretic Start: 12-18-2020 take 20 mg by mouth once daily Furosemide Active 20 MG PO Daily at 08July 13, 2021 11:00pm lisinopril 20 mg oral tablet (20 sources) Angiotensin Converting Enzyme Inhibitor Start: 12-18-2020 take 20 mg by mouth once daily Lisinopril Active 20 MG PO Daily July 13, 2021 11:00pm melatonin 10 mg extended release oral tablet (4 sources) Melatonin 10 MG as directed Orally Active metoprolol tartrate 25 mg oral tablet (20 sources) beta-Adrenergic Sushant Start: 02-06-2021 Lopressor 25 mg oral tablet Refills(s) 0 Start Date: 12/23/22 Status: Ordered take 1 tablet by [facility] every twenty-four hours Metoprolol Succinate ER 25 MG 1 tablet Oral Once a day for 30 Active Metoprolol Succi acacia ER 50 MG Oral for 30 Not-Taking Multivitamin preparation (1 source) take 1 tablet by mouth once daily Multiple Vitamins oral tablet ; 1 tab(s) orally once a day Quantity: 0 Refills: 0 Ordered: 21-Oct-2022 Nelli Aj Generic Substitution Allowed nortriptyline 25 mg oral capsule (20 sources) Tricyclic Antidepressant Start: 01-30-20 take 25 mg by mouth at bedtime Nortriptyline Active 25 MG PO Bedtime July 13, 2021 11:00pm omeprazole 40 mg delayed release oral capsule (20 sources) Proton Pump Inhibitor Start: 01-12-20 take 40 mg by mouth once daily Omeprazole Active 40 MG PO Daily at 0800 July 13, 2021 11:00pm Start: 12-18-2020 omeprazole Ora l, Daily, Refills(s) 0 Start Date: 12/18/20 Status: Ordered ondansetron 4 mg disintegrating oral tablet (2 sources) Serotonin-3 Receptor Antagonist Start: 11-07-2022 End: 11-07-2023 take 1 tablet by mouth every eight hours as needed for nausea ondansetron ODT (Zofran-ODT) 4 mg disintegrating tablet DISSOLVE 1 TABLET IN MOUTH EVERY 8 HOURS NEEDED FOR NAUSEA FOR 7 DAYS 12 tablet 0 11/07/2022 11/07/2023 Active 24 hr oxybutynin chloride 10 mg extended release oral tablet (20 sources) Cholinergic Muscarinic Antagonist Start: 12-18-2020 take 10 mg by mouth once daily Oxybutynin Chloride Active 10 MG PO Daily July 13, 2021 11:00pm potassium chloride 10 meq extended release oral tablet (20 sources) Start: 12-18-2020 take 1 tablet by mouth twice daily potassium chloride 10 mEq ER Tab mEq tab(s), Oral, BID, Refills(s) 0 Start Date: 12/18/20 Status: Ordered Start: 10-24-2020 take 10 mEq by mouth once skye y Potassium Chloride Active 10 MEQ PO Daily July 13, 2021 11:00pm predniSONE 10 mg oral tablet (13 sources) Start: 02-01-2021 predniSONE 10 MG Oral Tablet 1 TAB DAILR FIR 90 DAYS Quantity: 0 Refills: 0 Ordered: 01-Feb-2021 DO Start : 01-Feb-2021 Active Start: 11-30-2020 take 10 mg by mouth once daily Prednisone Active 10 MG PO Daily July 15, 2021 11:00pm temazepam 30 mg oral capsule (20 sources) Benzodiazepine Start: 01-11-2021 take 30 mg by mouth at bedtime Temazepam Active 30 MG PO Bedtime July 13, 2021 11:00pm tiZANidine 4 mg oral capsule (20 sources) Central alpha-2 Adrenergic Agonist Start: 07-14-2021 take 4 mg by mouth at bedtime Tizanidine Active 4 MG PO Bedtime July 13, 2021 11:00pm Start: 02-01-2021 take 1 tablet by siobhan th once daily at bedtime tiZANidine (Zanaflex) 4 mg tablet Take 1 tablet (4 mg) by mouth once daily at bedtime. 0 02/01/2021 Active Start: 02-01-2021 take 1 tablet by siobhan th at bedtime tiZANidine HCl - 4 MG Oral Tablet TAKE 1 TABLET AT BEDTIME. Quantity: 0 Refills: 0 Ordered: 01-Feb-2021 DO Start : 01-Feb-2021 Active Start: 12-18-2020 take 1 mg by mouth e very eight hours tiZANidine 4 mg Tab mg tab(s), Oral, q8hr, Refills(s) 0 Start Date: 12/18/20 Status: Ordered traZODone hydrochloride 50 mg oral tablet (1 source) Serotonin Reuptake Inhibitor Start: 12-23-2022 traZODONE 50 mg Tab Refills(s) 0 Start Date: 12/23/22 Status: Ordered Completed/Discontinued Medications Medication Drug Class(es) Dates Sig (Normalized) Sig (Original) aspirin 500 mg oral tablet (3 sources) Platelet Aggregation Inhibitor, Nonsteroidal Anti-inflammatory Drug Aspirin 500 MG TA BS as directed Quantity: 0 Refills: 0 Ordered: 30-Apr-2021 DO Active Aspirin 500 MG T ABS as directed Quantity: 0 Refills: 0 Ordered: 06-Feb-2021 DO Active Eye Vitamins CAPS (4 sources) take 1 capsule into the eye(s) once daily Eye Vitamins CAPS TAKE 1 CAPSULE Daily Quantity: 0 Refills: 0 Ordered: 30-Apr-2021 DO Active Problems Active Problems Problem Classification Problem Date Documented Date Episodic/Chronic Acute and unspecified renal failure (3 sources) Injury of kidney; Translations: [Acute kidney failure, unspecified] Onset: 3 11-05-2022 Episodic Acute myocardial infarction (1 source) Myocardial infarction 09-12-2018 Chronic Aortic; peripheral; and visceral artery aneurysms (20 sources) Abdominal aortic aneurysm; Translations: [Abdominal aneurysm without mention of rupture] Onset: 2 Resolved: 2 Chronic Cancer of prostate (2 sources) Malignant neoplasm of prostate; Translations: [Malignant tumor of prostate] Onset: 3 Chronic Cancer of prostate (6 sources) Personal history of malignant neoplasm of prostate; Translations: [History of malignant neoplasm of prostate] Onset: 2 Episodic Chronic kidney disease (1 source) Chronic kidney disease, unspecified; Translations: [CHRONIC KIDNEY DISEASE UNSPECIFIED] Onset: 2 Chronic Chronic obstructive pulmonary disease and bronchiectasis (9 sources) Chronic obstructive lung disease; Translations: [Chronic obstructive pulmonary disease, unspecified] Onset: 2 Chronic Congestive heart failure; nonhypertensive (1 source) Unspecified diastolic (congestive) heart failure; Translations: [UNSPECIFIED DIASTOLIC HEART FAILURE] Onset: 2 Chronic Coronary atherosclerosis and other heart disease (1 source) Atherosclerotic heart disease of [place] coronary artery without angina pectoris; Translations: [ASHD [place] CA W/O ANGINA PECTORIS] Onset: 2 Chronic Cystic fibrosis (3 sources) Cystic fibrosis, unspecified; Translations: [Cystic fibrosis] Onset: 2 07-14-2021 Chronic Disorders of lipid metabolism (20 sources) Hyperlipidemia; Translations: [Other and unspecified hyperlipidemia] Onset: 3 11-04-2022 Chronic Esophageal disorders (3 sources) Gastroesophageal reflux disease; Translations: [Esophageal reflux] Onset: 3 11-04-2022 Chronic Essential hypertension (20 sources) Essential hypertension; Translations: [Unspecified essential hypertension] Onset: 3 07-14-2021 Chronic Genitourinary symptoms and ill-defined conditions (2 sources) Male urinary stress incontinence; Translations: [Nocturnal enuresis] 09-12-2018 Chronic Genitourinary symptoms and ill-defined conditions (3 sources) Urgent desire to urinate; Translations: [Urgency of urination] Onset: 3 Episodic Heart valve disorders (20 sources) Mitral valve regurgitation; Translations: [Mitral valve disorders] Onset: 3 Chronic Comment on above: mild/moderate; Hypertension with complications and secondary hypertension (5 sources) Hypertensive heart disease with heart failure; Translations: [Hypertensive chronic kidney disease with stage 1 through stage 4 chronic kidney disease, or unspecified chronic kidney disease] Onset: 2 Chronic Osteoarthritis (1 source) Arthritis 09-12-2018 Chronic Other acquired deformities (1 source) Spondylolisthesis, lumbar region; Translations: [Spondylolisthesis, lumbar region] Onset: 3 Episodic Other aftercare (14 sources) Drug therapy finding; Translations: [Long-term (current) use of other medications] Episodic Other aftercare (2 sources) prison (current) use of anticoagulants; Translations: [SHELTER CURRNT USE ANTICOAGULANTS] Onset: 2 Episodic Other and ill-defined heart disease (8 sources) Diastolic dysfunction; Translations: [Other ill-defined heart diseases] Chronic Other and ill-defined heart disease (4 sources) Other ill-defined heart diseases Onset: 2 Resolved: 2 Chronic Other connective tissue disease (1 source) Arthrodesis status; Translations: [Arthrodesis status] Onset: 3 Episodic Other hematologic conditions (1 source) High troponin I level; Translations: [Other specified abnormalities of plasma proteins] 07-14-2021 Episodic Other lower respiratory disease (20 sources) Fibrosis of lung; Translations: [Postinflammatory pulmonary fibrosis] Onset: 3 07-14-2021 Chronic Other lower respiratory disease (9 sources) Parietoalveolar pneumopathy; Translations: [Interstitial pulmonary disease, unspecified] Chronic Other lower respiratory disease (5 sources) Interstitial pulmonary disease, unspecified; Translations: [ILD (interstitial lung disease) J84.9] Onset: 1 Resolved: 2 Chronic Other lower respiratory disease (1 source) Pulmonary fibrosis, unspecified; Translations: [Pulmonary fibrosis, unspecified] Onset: 3 Chronic Other lower respiratory disease (18 sources) History of chronic obstructive airway disease; Translations: [Personal history of other diseases of respiratory system] Resolved: 1 09-12-2018 Episodic Other lower respiratory disease (4 sources) Dyspnea, unspecified; Translations: [Dyspnea R06.00] Onset: 1 Resolved: 1 Episodic Other male genital disorders (1 source) Impotence 07-26-2019 Chronic Other nervous system disorders (1 source) Other chronic pain; Translations: [OTHER CHRONIC PAIN] Onset: 2 Chronic Other nutritional; endocrine; and metabolic disorders (20 sources) Obesity; Translations: [Obesity, unspecified] Onset: 3 Resolved: 1 11-07-2022 Chronic Other nutritional; endocrine; and metabolic disorders (2 sources) Obesity, unspecified; Translations: [Obesity, unspecified] Onset: 3 Chronic Other nutritional; endocrine; and metabolic disorders (2 sources) Body mass index (BMI) 30.0-30.9, adult; Translations: [Body mass index (BMI) 30.0-30.9, adult] Onset: 3 Chronic Other nutritional; endocrine; and metabolic disorders (4 sources) Overweight in adulthood with body mass index of 25 or more but less than 30; Translations: [Overweight] Episodic Other screening for suspected conditions (not mental disorders or infectious disease) (9 sources) Radiology result abnormal; Translations: [Abnormal findings on diagnostic imaging of other specified body structures] Onset: 1 Resolved: 1 Chronic Other screening for suspected conditions (not mental disorders or infectious disease) (19 sources) Electrocardiogram abnormal; Translations: [Nonspecific abnormal electrocardiogram [ECG] [EKG]] Onset: 3 11-07-2022 Episodic Pulmonary heart disease (8 sources) Saddle embolus of pulmonary artery; Translations: [Saddle embolus of pulmonary artery with acute cor pulmonale] Onset: 2 Resolved: 2 Chronic Pulmonary heart disease (20 sources) Pulmonary embolism; Translations: [Other pulmonary embolism and infarction] Onset: 2 07-14-2021 Episodic Residual codes; unclassified (9 sources) Sleep apnea; Translations: [Sleep apnea, unspecified] Chronic Residual codes; unclassified (1 source) Sleep apnea, unspecified; Translations: [Sleep apnea G47.30] Onset: 1 Resolved: 1 Chronic Residual codes; unclassified (1 source) Obstructive sleep apnea (adult) (pediatric); Translations: [OBSTRUCTIVE SLEEP APNEA] Onset: 2 Chronic Screening and history of mental health and substance abuse codes (18 sources) Ex-smoker; Translations: [Personal history of tobacco use] 07-26-2019 Episodic Spondylosis; intervertebral disc disorders; other back problems (9 sources) Spondylosis without myelopathy or radiculopathy, lumbar region; Translations: [Other intervertebral disc degeneration, lumbar region] Onset: 3 11-07-2022 Chronic Spondylosis; intervertebral disc disorders; other back problems (17 sources) Dorsalgia, unspecified; Translations: [Intervertebral disc disorders with radiculopathy, lumbar region] Onset: 2 Episodic Substance-related disorders (1 source) Nicotine dependence, cigarettes, uncomplicated; Translations: [NICOTINE DEPEND CIGARETTES UNCOMP] Onset: 2 Chronic Unclassified (3 sources) LOW BACK PAIN, UNSPECIFIED; Translations: [LOW BACK PAIN, UNSPECIFIED] Onset: 3 Unclassified (1 source) CONTACT W/AND (SUSP) EXPOS COVID-19; Translations: [CONTACT W/AND (SUSP) EXPOS COVID-19] Onset: 2 Unclassified (3 sources) SPINAL STENOSIS, LUMBAR REGION WITHOUT NEUROGENIC EMETERIO 09-19-2022 Comment on above: SPINAL STENOSIS, LUM BAR REGION WITHOUT NEUROGENIC EMETERIO Unclassified (1 source) 6M 06-04-2022 Comment on above: 6M Unclassified (1 source) Primary hypertension 11-04-2022 Unclassified (1 source) Abdominal aortic aneurysm, without rupture, unspecified (CMS/HCC); Translations: [Abdominal aortic aneurysm, without rupture, unspecified (CMS/HCC)] Onset: 3 Unclassified (1 source) Abdominal aortic aneurysm, without rupture, unspecified; Translations: [Abdominal aortic aneurysm, without rupture, unspecified] Onset: 3 Unclassified (1 source) Low back pain, unspecified; Translations: [Low back pain, unspecified] Onset: 4 Unclassified (1 source) Interstitial pulmonary disease, unspecified; Translations: [Interstitial pulmonary disease, unspecified] Onset: 4 Unclassified (1 source) Abdominal aortic aneurysm, without rupture, unspecified; Translations: [Abdominal aortic aneurysm, without rupture, unspecified] Onset: 3 Past or Other Problems Problem Classification Problem Date Documented Date Episodic/Chronic Cardiac dysrhythmias (20 sources) Sinus tachycardia; Translations: [Other specified cardiac dysrhythmias] Onset: 11-07-2022 Episodic Hyperplasia of prostate (1 source) Benign prostatic hypertrophy with outflow obstruction Resolved: 09-12-2018 11-23-2018 Chronic Nonspecific chest pain (3 sources) Other chest pain; Translations: [OTHER CHEST PAIN] Onset: 07-14-2021 Episodic Other aftercare (1 source) Other quality control analyst (current) drug therapy; Translations: [OTH SHELTER CURRENT DRUG THERAPY] Onset: 07-17-2021 Episodic Other circulatory disease (18 sources) Respiratory crackles; Translations: [Abnormal chest sounds] Onset: 11-07-2022 11-07-2022 Episodic Other connective tissue disease (1 source) Pain in right leg; Translations: [Pain in right leg] Onset: 08-23-2022 Episodic Other connective tissue disease (1 source) Pain in left leg; Translations: [Pain in left leg] Onset: 08-23-2022 Episodic Other hematologic conditions (1 source) Other specified abnormalities of plasma proteins; Translations: [OTH SPEC ABNORM PLASMA PROTEINS] Onset: 07-17-2021 Episodic Other lower respiratory disease (20 sources) Dyspnea; Translations: [Other respiratory abnormalities] Onset: 11-07-2022 11-07-2022 Episodic Other lower respiratory disease (4 sources) Other nonspecific abnormal finding of lung field; Translations: [OTH NONSPECIFIC ABN FIND LNG FIELD] Onset: 02-18-2022 Episodic Other lower respiratory disease (1 source) Shortness of breath; Translations: [SHORTNESS OF BREATH] Onset: 02-22-2022 Episodic Other lower respiratory disease (4 sources) Other forms of dyspnea; Translations: [OTHER FORMS OF DYSPNEA] Onset: 11-05-2021 Episodic Other nervous system disorders (17 sources) H/O: respiratory disease; Translations: [Personal history of other specified diseases] Resolved: 02-06-2021 Episodic Other nutritional; endocrine; and metabolic disorders (17 sources) Body mass index 30+ - obesity; Translations: [Body Mass Index 31.0-31.9, adult] Resolved: 02-06-2021 Chronic Unclassified (2 sources) LOW BACK PAIN, UNSPECIFIED; Translations: [LOW BACK PAIN, UNSPECIFIED] Onset: 05-09-2022 Unclassified (1 source) Abdominal aortic aneurysm (AAA) without rupture, unspecified part I71.40 Unclassified (1 source) Abdominal aortic aneurysm, without rupture, unspecified (CMS/HCC); Translations: [Abdominal aortic aneurysm, without rupture, unspecified (CMS/HCC)] Onset: 12-09-2022 Unclassified (1 source) Onset: 12-09-2022 12-09-2022 Results Test Name Value Interpretation Reference Range Facility XR LUMBAR SPINE 2-3 VIEWSon 02-28-2023 XR LUMBAR SPINE 2-3 VIEWS Interpreted By: Curtis Meléndez, STUDY: XR LUMBAR SPINE 2-3 VIEWS; ; 02/28/2023 1:37 pm INDICATION: Signs/Symptoms:low back pain. ACCESSION NUMBER(S): [id number] ORDERING CLINICIAN: CURTIS MELÉNDEZ FINDINGS: AP lateral x-rays of the lumbar spine show a midline laminectomy from L2 down through L4. There is a dowel shaped interbody cage at L4-5 and instrumentation at L4-5 and L5-S1. there is a lateral lumbar fusion at L3-4 with lateral plate and screw construct. The hardware is in good position without any evidence of hardware failure. There is a grade 1 spondylolisthesis at L3-4. There is moderate to severe degenerative changes above the level of the fusion. There is no fractures. Lumbar lordosis is maintained. There is a scoliosis of 10 degrees of the lumbar spine. Bony pelvis is partially visualized and shows surgical clips within the pelvis as well as moderate bilateral SI joint degenerative changes. There is calcification of the anterior vasculature. Signed by: Curtis Meléndez 02/28/2023 3:09 PM Dictation workstation: [id number] [facility] Lab Reportson 12-24-2022 Lab Reports [id number] [facility] Patient Educationon 12-24-19 23 Patient Education Oncology Prostate Cancer Screening Prostate cancer screening is testing that is done to check for the presence of prostate cancer in men. The prostate gland is a walnut-sized gland that is located below the bladder and in front of the rectum in males. The function of the prostate is to add fluid to semen during ejaculation. Prostate cancer is one of the most common types of cancer in men. Who should have prostate cancer screening? Screening recommendations vary based on age and other risk factors, as well as between the professional organizations who make the recommendations. In general, screening is recommended if: ? You are age 50 to 70 and have an average risk for prostate cancer. You should talk with your health care provider about your need for screening and how often screening should be done. Because most prostate cancers are slow growing and will not cause , screening in this age group is generally reserved for men who have a 10- to 15-year life expectancy. ? You are younger than age 50, and you have these risk factors: ? Having a father, brother, or uncle who has been diagnosed with prostate cancer. The risk is higher if your family member's cancer occurred at an early age or if you have multiple family members with prostate cancer at an early age. ? Being a male who is Black or is of [place] or sub-Saharan descent. In general, screening is not recommended if: ? You are younger than age 40. ? You are between the ages of 40 and 49 and you have no risk factors. ? You are 70 years of age or older. At this age, the risks that screening can cause are greater than the benefits that it may provide. If you are at high risk for prostate cancer, your health care provider may recommend that you have screenings more often or that you start screening at a younger age. How is screening for prostate cancer done? The recommended prostate cancer screening test is a blood test called the prostate-specific antigen (PSA) test. PSA is a protein that is made in the prostate. As you age, your prostate naturally produces more PSA. Abnormally high PSA levels may be caused by: ? Prostate cancer. ? An enlarged prostate that is not caused by cancer (benign prostatic hyperplasia, or BPH). This condition is very common in older men. ? A prostate gland infection (prostatitis) or urinary tract infection. ? Certain medicines such as male hormones (like testosterone) or other medicines that raise testosterone levels. A rectal exam may be done as part of prostate cancer screening to help provide information about the size of your prostate gland. When a rectal exam is performed, it should be done after the PSA level is drawn to avoid any effect on the results. Depending on the PSA results, you may need more tests, such as: ? A physical exam to check the size of your prostate gland, if not done as part of screening. ? Blood and imaging tests. ? A procedure to remove tissue samples from your prostate gland for testing (biopsy). This is the only way to know for certain if you have prostate cancer. What are the benefits of prostate cancer screening? ? Screening can help to identify cancer at an early stage, before symptoms start and when the cancer can be treated more easily. ? There is a small chance that screening may lower your risk of dying from prostate cancer. The chance is small because prostate cancer is a slow-growing cancer, and most men with prostate cancer from a different cause. What are the risks of prostate cancer screening? The main risk of prostate cancer screening is diagnosing and treating prostate cancer that would never have caused any symptoms or problems. This is called overdiagnosisand overtreatment. PSA screening cannot tell you if your PSA is high due to cancer or a different cause. A prostate biopsy is the only procedure to diagnose prostate cancer. Even the results of a biopsy may not tell you if your cancer needs to be treated. Slow-growing prostate cancer may not need any treatment other than monitoring, so diagnosing and treating it may cause unnecessary stress or other side effects. Questions to ask your health care provider ? When should I start prostate cancer screening? ? What is my risk for prostate cancer? ? How often do I need screening? ? What type of screening tests do I need? ? How do I get my test results? ? What do my results mean? ? Do I need treatment? Where to find more information ? The [place] [employer]: www.cancer.org ? [employer]: www.auanet.org Contact a health care provider if: ? You have difficulty urinating. ? You have pain when you urinate or ejaculate. ? You have blood in your urine or semen. ? You have pain in your back or in the area of your prostate. Summary ? Prostate cancer is a common type of cancer in men. The prostate gland is located below the bladder and in front of the rectum. This gland adds flu (more content not included)... Normal [facility] Physician Orderon 12-23-2022 Physician Order [id number] Normal [facility] Urology Office/Clinic Noteon 12-23-2022 Urology Office/Clinic Note Chief Complaint Hx of prostate cancer (prostatectomy 2017) HPI Staff 67 yo male here for 1yr f/u with PSA. Previous Dx: h/o prostate ca, nocturia, urgency of urination, pulmonary embolus. S/p prostatectomy 03/21/16. Previous PSA 12/20/21 was <0.13. Current PSA 12/21/22- <0.13. Taking Oxybutynin ER 10mg qd. Dysuria: no Incomplete bladder emptying: no Hematuria: no Frequency: no Urgency: no Nocturia: depends on amount he drinks before bed usually 1x Stream: good stream no straining Leaking: no Post void dripping: no Wearing pads/ Depends: no Urge incontinence: no Stress incontinence: no Incontinence without Sensory Awareness: no Abdominal pain: no Flank pain: recently had a lumbar fusion Sexual complaints: no History of Present Illness Tests reviewed: reviewed UA, PSA I have reviewed the previous health record information and history for this patient from Dr. Spear. I have reviewed and verified the staff HPI to be accurate for this encounter. Review of Systems PHQ Score Initial Depression Screen Score: 0 ROS - Provider Constitutional: denies weight loss, denies hot flashes. Eyes: denies eye problems. Gastrointestinal: denies nausea, denies vomiting. Cardiovascular: denies chest pain or angina. Integumentary: no dryness Musculoskeletal: denies musculoskeletal symptoms. ENMT: denies otolaryngeal symptoms. Respiratory: no shortness of breath. Heme/Lymph: denies easy bleeding tendency, denies easy bruising tendency. Psychiatric: no confusion, no anxiety. Genitourinary: See HPI. Physical Exam Vitals & Measurements HR: 69(Peripheral) RR: 16 BP: 95/62 HT: 69 in HT: 175 cm WT: 81.7 kg WT: 179.74 lb BMI: 26.68 General Appearance: alert, no distress, well nourished, well developed male. Genitourinary: normal scrotum, normal testes, normal urethra, normal epididymis, normal vas deferens/spermatic cord. Flank Pain: none. Bladder: nonpalpable. Assessment/Plan 1. Prostate cancer (C61: Malignant neoplasm of prostate) S/p Prostatectomy done 02/2016. PSA 07/22/19 - <0.05 04/26/20 - <0.05 10/05/20 - <0.05 12/20/21 - <0.13 12/21/22 - <0.13 Discussed PSA levels which remain stable and undetectable. Follow up with PSA in 1 year or sooner if needed. All questions/concerns were discussed. Pt to call the office if he encounters any issues prior. Pt acknowledges understanding. 2. Urgency of urination (R39.15: Urgency of urination) Good stream. Feels he empties completely. Admits he does have to strain some to ensure he is empty. Denies any urgency. UA today negative for blood and infection. Taking Oxybutynin ER 10mg qd. Works well. Cont med wo changes. Follow-up With When Contact Information RAINER JIMENEZ, Marino Calabrese, URL [facility] [address], [place] [phone] Additional Instructions: 1 yr w/ PSA Patient Education Prostate Cancer Screening I, Skye Miller, personally scribed for Dr. Spear on 12/23/2022 11:57:50. . Documentation recorded by the scribe, Skye Miller, accurately reflects the services(s) I performed and decisions made by me. Authenticated by Dr. Spear on 12/23/2022 12:00:59. 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 Medications atorvastatin 40 mg Tab BACLOFEN 10MG TAB, 0 Eliquis 5 mg oral tablet, Oral, BID furosemide 20 mg Tab, Oral, Daily lisinopril 20 mg Tab, Oral, Daily Lopressor 25 mg oral tablet nortriptyline 25 mg Cap omeprazole, Oral, Daily oxybutynin 10 mg ER Tab, 10 mg= 1 tab(s), Oral, Daily, 3 refills Percocet 325 mg-5 mg Tab, Oral, q6hr potassium chloride 10 mEq ER Tab, Oral, BID tiZANidine 4 mg Tab, Oral, q8hr traZODONE 50 mg Tab Allergies nitroglycerin (Hypotension) Social History Alcohol Current, Liquor, Daily, 09/12/2018 Tobacco Former smoker, quit more than 30 days ago Tobacco Use:., 12/18/2020 Former smoker, quit more than 30 days ago Tobacco Use:., 04/21/2020 Former smoker, quit more than 30 days ago Tobacco Use:. Never Smokeless Tobacco Use:. Cigarettes, 07/26/2019 Family History Heart disease: Mother. Hyperlipidemia: Mother. Hypertension: Mother. Kidney disease: Father. Primary malignant neoplasm of female breast: Mother. Lab Results Ambulatory Point of Care Results Bilirubin Urine Dipstick: Negative (more content not included)... Normal [facility] Comment on above: Result Comment: Elec tronically Signed By: Marino SPEAR MD\.br\Date and Time Signed: 12/23/22 12:01 EDT\.br\Electronically Co-Signed By: Skye Miller\.br\Date and Time Co-Signed: 12/23/22 11:59 EDT Post Op (Orthopaedic Surgery )on 11-19-2022 Post Op (Orthopaedic Surgery) Orders Back pain Xray BN Spine, Lumbosacral; 2 or 3 Views; Status:Complete; Done: [id number] 02:21PM Radiologist to Determine Optimal Study : Y What are the patient's signs and symptoms? : pain Provider Impressions ASSESSMENT: Patient is doing well from an L3-L4 lateral lumbar fusion above a prior L4-L5 fusion. We then did an L2-L3, L3-L4 midline laminectomy with a noninstrumented posterolateral fusion. He is doing well. TREATMENT PLAN: We will let him engage in light activities as tolerated, continue with BLT restrictions and using the brace. We will see him back in three months for AP and lateral x-rays of the lumbar spine. Chief Complaint Two weeks out, L3-L4 lateral lumbar fusion with lateral plate and screws, and then an L2-L3, L3-L4 laminectomy with a posterolateral fusion, noninstrumented. L3-4 Lateral Fusion w/Instrumentation Laterally/L2-3, L3-4 Lami 11/04/22, 15 days PO doing good. History of Present IllnessGarry is here for followup. He says he feels good. He is about 70% better with regards to his legs. His back is achy and sore but already feeling better as well. No bowel or bladder changes. No fevers, chills, nausea or vomiting. All in all, he is doing well. Active Problems Problems AAA (abdominal aortic aneurysm) (441.4) (I71.40) Abnormal EKG (794.31) (R94.31) Back pain (724.5) (M54.9) Class 1 obesity with body mass index (BMI) of 30.0 to 30.9 in adult (278.00,V85.30) (E66.9,Z68.30) Dyspnea (786.09) (R06.00) Essential hypertension (401.9) (I10) Former smoker (V15.82) (Z87.891) High risk medication use (V58.69) (Z79.899) Hyperlipidemia (272.4) (E78.5) Lung crackles (786.7) (R09.89) Mitral regurgitation (424.0) (I34.0) mild/moderate Other intervertebral disc degeneration, lumbar region (722.52) (M51.36) Pulmonary embolism (415.19) (I26.99) Pulmonary fibrosis (515) (J84.10) Sinus tachycardia (427.89) (R00.0) Past Medical History Problems History of BMI 31.0-31.9,adult (V85.31) (Z68.31) Resolved Date: 06 Feb 2021 History of Class 1 obesity without serious comorbidity with body mass index (BMI) of 31.0 to 31.9 in adult (278.00,V85.31) (E66.9,Z68.31) Resolved Date: 06 Feb 2021 History of chronic obstructive lung disease (V12.69) (Z87.09) Resolved Date: 06 Feb 2021 History of sleep apnea (V13.89) (Z86.69) Resolved Date: 06 Feb 2021 Surgical History Problems History of Ankle surgery History of Colonoscopy Feb 2017 History of Lung surgery History of Neck surgery History of Prostate surgery History of Prostatectomy History of Spinal surgery History of Tonsillectomy with adenoidectomy Family History Mother Family history of cardiac disorder (V17.49) (Z82.49) Family history of malignant neoplasm (V16.9) (Z80.9) Father Family history of angina pectoris (V17.49) (Z82.49) Family history of hypertension (V17.49) (Z82.49) Family history of malignant neoplasm (V16.9) (Z80.9) Brother Family history of malignant neoplasm (V16.9) (Z80.9) Social History Problems Caffeine use (V49.89) (Z78.9) Former smoker (V15.82) (Z87.891) No alcohol use No illicit drug use Allergies Medication nitroglycerin Adverse Reaction; Hypotension;; Recorded By: Paulette Whitley; 01/23/2021 1:48:33 PM Current Meds Medication NameInstruction Albuterol Sulfate HFA 108 (90 Base) MCG/ACT Inhalation Aerosol Solutionas directed Eliquis 5 MG Oral TabletTake 1 tablet twice daily Furosemide 20 MG Oral TabletTAKE ONE TABLET BY MOUTH DAILY AT 9AM Lipitor 40 MG Oral TabletTAKE 1 TABLET AT BEDTIME. Lisinopril 20 MG Oral TabletTAKE 1 TABLET DAILY. Metoprolol Tartrate 25 MG Oral TabletTake 1 tablet twice a day Nortriptyline HCl - 25 MG Oral CapsuleTAKE 1 CAPSULE AT BEDTIME. Omeprazole 40 MG Oral Capsule Delayed ReleaseTAKE 1 CAPSULE DAILY. oxyBUTYnin Chloride ER 10 MG Oral Tablet Extended Release 24 Hour1 TAB DAILY oxyCODONE-Acetaminophen 5-325 MG Oral TabletTAKE 1 TABLET Twice daily PRN Potassium Chloride ER 10 MEQ Oral Tablet Extended ReleaseTAKE 1 TABLET BY MOUTH EVERY DAY Temazepam 30 MG Oral CapsuleTAKE 1 CAPSULE AT BEDTIME. tiZANidine HCl - 4 MG Oral TabletTAKE 1 TABLET AT BEDTIME. Physical Exam On physical examination, both incisions look good, and they are nicely healed. No redness, warmth, or swelling. He has appropriate back range of motion. He walks appropriately. He has good strength in his legs. Results/Data Xray BN Spine, Lumbosacral; 2 or 3 [id number] 02:21PMCurtis Meléndez Test NameResultFlagReference Xray Lumbar Spine AP + Lateral(Report) FINAL REPORT Interpreted by: CURTIS MELÉNDEZ JON, MD 11/19/22 16:41 Patient Name: ERIK MORALES STUDY: SPINE, LUMBOSACRAL; 2 OR 3 VIEWS; ; 11/19/2022 2:21 pm INDICATION: pain M54.9: Back pain. ACCESSION NUMBER(S): [id number] ORDERING CLINICIAN: CURTIS MELÉNDEZ FINDINGS: AP lateral x-rays of the lumbar spine show an L3-4 lateral lumbar fusion with lateral plate and cage configuration. Cage pl (more content not included)... Normal [facility] 11-[facility]-2022 XR Lumbar spine AP and Lateral [facility]: SPINE, LUMBOSACRAL 2 OR 3 EWSon 11-19-2022 SPINE, LUMBOSACRAL 2 OR 3 VIEWS Patient Name: ERIK MORALES STUDY: SPINE, LUMBOSACRAL; 2 OR 3 VIEWS; ; 11/19/2022 2:21 pm INDICATION: pain M54.9: Back pain. ACCESSION NUMBER(S): [id number] ORDERING CLINICIAN: CURTIS MELÉNDEZ FINDINGS: AP lateral x-rays of the lumbar spine show an L3-4 lateral lumbar fusion with lateral plate and cage configuration. Cage plate and cages are in good position. There is a prior L4-5 L5-S1 fusion which is unchanged from prior x-rays. There is a midline laminectomy from L2 down through L4. Posterolateral fusion masses present from L2 down through L4. Lumbar lordosis is maintained. There is a grade 1 spondylolisthesis at L3-4. There is mild degenerative changes above the levels of the fusion. There is no fractures. There is no scoliosis. Pedicles are visualized at all levels. Bony pelvis and hips are partially visualized and show multiple surgical clips in the pelvis and minimal hip degenerative changes. Electronically signed by: CURTIS MELÉNDEZ MD Normal [facility] BASIC METABOLIC PANELon 10-25 Anion gap [Moles/Vol] 10 mmol/L Normal 10 - 20 [facility] Comment on above: Performed By: #### B MP #### [address] [id number] Calcium [Mass/Vol] 8.9 mg/dL Normal 8.6 - 10.3 [facility] Comment on above: Performed By: #### B MP #### [address] [id number] Chloride [Moles/Vol] 101 mmol/L Normal 98 - 107 [facility] Comment on above: Performed By: #### B MP #### [address] [id number] Creatinine [Mass/Vol] 1.15 mg/dL Normal 0.50 - 1.30 [facility] Comment on above: Performed By: #### B MP #### [address] [id number] GFR/1.73 sq M.predicted among non-blacks MDRD (S/P/Bld) [Vol rate/Area] 70 mL/min/{1.73_m2} Normal >90 [facility] Comment on above: Result Comment: CALC ULATIONS OF ESTIMATED GFR ARE PERFORMED USING THE 2020 CKD-EPI STUDY REFIT EQUATION WITHOUT THE RACE VARIABLE FOR THE IDMS-TRACEABLE CREATININE METHODS. https://jasn.asnjournals.org/content/early//ASN.0153262 988 Performed By: #### B MP #### [address] [id number] Glucose [Mass/Vol] 106 mg/dL High 74 - 99 [facility] Comment on above: Performed By: #### B MP #### [address] [id number] HCO3 (Bld) [Moles/Vol] 29 mmol/L Normal 21 - 32 [facility] Comment on above: Performed By: #### B MP #### [address] [id number] Potassium [Moles/Vol] 4.5 mmol/L Normal 3.5 - 5.3 [facility] Comment on above: Performed By: #### B MP #### [address] [id number] Sodium [Moles/Vol] 135 mmol/L Low 136 - 145 [facility] Comment on above: Performed By: #### B MP #### [address] [id number] Urea nitrogen [Mass/Vol] 13 mg/dL Normal 6 - 23 [facility] Comment on above: Performed By: #### B MP #### [facility] [address] [place], [place] [id number] Daily Progress Note-General Internal Medicineon 11-07-2022 Daily Progress Note-General Internal Medicine Consult Type: subsequent visit/care Service: General Internal Medicine Subjective Data: ERIK MORALES is a 67 year old Male who is Hospital Day # 4 and POD #3 for 1. ;2. ;3. ;4. ;5. Patient examined and seen. Alert and oriented x3, resting comfortably. Patient denies chest pain, shortness of breath, palpitations, abdominal pain, fever or chills. Patient is agreeable to go home when cleared. Reports support system is intact. Objective Data: Objective Information: T PRBPMAPSpO2 [id number]% Date/Time11/07 8: 8: 8: 8: 21:0811/07 8:56 Range(36.7C - 37.1C ) (63 - 97 ) (16 - 18 ) (113 - 145 )/ (69 - 81 ) (97 - 108 ) (94% - 96% ) Highest temp of 37.1 C was recorded at 11/06 8:18 Pain reported at 11/06 23:49: sleeping Physical Exam Narrative: Physical Exam: Constitutional: awake/alert/oriented x3, cooperative Respiratory/Thorax: Patent airways, normal breath sounds Cardiovascular: Regular, rate and rhythm, no murmurs, 2+ equal pulses of the extremities, normal S 1and S 2 Gastrointestinal: Nondistended, soft, non-tender, Musculoskeletal: mild decrease range of motion to lumbar spine s/p sx intervention, good capillary refills bilaterally, Neurological: alert/oriented x 3, speech clear Medication: Medications: CARDIOVASCULAR AGENTS: 1. Metoprolol Tartrate: 25 mg Oral 2 Times a Day CENTRAL NERVOUS SYSTEM AGENTS: 1. Acetaminophen: 650 mg Oral Every 6 Hours 2. Celecoxib (CELEBREX): 200 mg Oral 2 Times a Day With Meals 3. Morphine Injectable: 2 mg IntraVenous Push Every 2 Hours PRN 4. oxyCODONE Immediate Release: 5 mg Oral Every 4 Hours PRN 5. oxyCODONE Immediate Release: 10 mg Oral Every 4 Hours PRN 6. Ondansetron Injectable: 4 mg IntraVenous Push Every 3 Hours PRN 7. diazePAM (VALIUM): 5 mg Oral Every 6 Hours PRN GASTROINTESTINAL AGENTS: 1. Bisacodyl Enteric Coated: 10 mg Oral Daily PRN 2. Docusate: 100 mg Oral 2 Times a Day 3. Polyethylene Glycol: 17 gram(s) Oral 2 Times a Day 4. Pantoprazole: 40 mg Oral Daily METABOLIC AGENTS: 1. Atorvastatin: 40 mg Oral At Bedtime NUTRITIONAL PRODUCTS: 1. Lactated Ringers Infusion: 1000 mL IntraVenous 2. Multivitamin with Minerals: 1 tablet(s) Oral Daily PSYCHOTHERAPEUTIC AGENTS: 1. Nortriptyline: 25 mg Oral Daily RESPIRATORY AGENTS: 1. diphenhydrAMINE: 25 mg Oral Every 6 Hours PRN TOPICAL AGENTS: 1. Sore Throat Lozenge: 1 lozenge(s) Oral Every 4 Hours PRN Currently Suspended Medications ------ 1. Lisinopril: 20 mg Oral Daily 2. Furosemide: 20 mg Oral Daily Recent Lab Results: Results: I have reviewed these laboratory results: Basic Metabolic Panel Trending View [id number] 10:23:00 -Oct-2022 05:48:00 Glucose, [id number] H 95 NA135 L 138 K4.5 4.1 CL101 105 Bicarbonate, Serum29 28 Anion Gap, Serum10 9 L BUN13 14 CREAT1.15 1.37 H GFR Male70 57 A Calcium, Serum8.9 8.6 Assessment and Plan: Code Status: Code StatusFull Code Assessment: Hospitalist team consulted for post op management of HTN. # Lumbar Stenosis, spondylolisthesis Back Pain Orthopedic Team Primary Pain and DVT Prophylaxis per Ortho team PT/OT treatment evaluation Fall precautions Incentive spirometer education and demonstration addressed Discharge planning CBC BMP reviewed Vital signs every 8 # HTN / HLD / Mitral valve regurgitation Hold Lisinopril Continue Lopressor and statin Add Telemetry for arrythmia monitoring Hold Lasix Hemodynamically stable # GERD Continue PPI Stay upright for 30minutes Take pain medications with food # Hx of PEs Eliquis to be resumed per Orthopedics team # JO - Resolved trending down. Today 1.15, WNL Thank you for consult MEDICINE TO SIGN OFF CALL FOR ACUTE NEEDS Hemodynamically stable Time spent 26 minutes obtaining labs, imaging, recommendations, interview, assessment, examination, medication review/ordering, and EMR review. Plan of care was discussed extensively with patient, RN and Ortho ENGINEERING DOCUMENTATION SPECIALIST. Patient verbalized understanding through teach back method. All questions and concerns addressed upon examination. Of note, this documentation is completed using the [employer] system (voice recognition software). There may be spelling and/or grammatical errors that were not corrected prior to final submission. Plan of Care Reviewed With: Plan of Care Reviewed With: patient Electronic Signatures: Heidy Escobar (QUALITY ASSURANCE PROJECT MANAGER-PRINCIPAL LAW CLERK) (Signed 07-Nov-2022 14:59) Authored: Service, Subjective Data, Objective Data, Assessment and Plan, Note Completion Last Updated: 07-Nov-2022 14:59 by Heidy Escobar (QUALITY ASSURANCE PROJECT MANAGER-PRINCIPAL LAW CLERK) Normal [facility] Daily Progress Note-Orthopae dicson 11-07-2022 Daily Progress Note-Orthopaedics Service: Orthopaedics Subjective Data: ERIK MORALES is a 67 year old Male who is Hospital Day # 4 and POD #3 for 1. ;2. ;3. ;4. ;5. Patient seen and examined this morning. No acute events overnight. Objective Data: Objective Information: T PRBPMAPSpO2 [id number]% Date/Time11/06 21: 21: 21: 21: 21: 21:08 Range(36.7C - 37.1C ) (63 - 79 ) (16 - 18 ) (127 - 145 )/ (75 - 81 ) (97 - 108 ) (94% - 95% ) Highest temp of 37.1 C was recorded at 11/06 8:18 Pain reported at 11/06 23:49: sleeping Physical Exam by System: Constitutional: Well developed, awake/alert/oriented x3, no distress, alert and cooperative Eyes: PERRL, EOMI, clear sclera ENMT: mucous membranes moist, no apparent injury, no lesions seen Head/Neck: Neck supple, no apparent injury, thyroid without mass or tenderness, No JVD, trachea midline, no bruits Respiratory/Thorax: Patent airways, CTAB, normal breath sounds with good chest expansion, thorax symmetric Cardiovascular: Regular, rate and rhythm, no murmurs, 2+ equal pulses of the extremities, normal S 1and S 2 Gastrointestinal: Nondistended, soft, non-tender, no rebound tenderness or guarding, no masses palpable, no organomegaly, +BS, no bruits Genitourinary: No Discharge, vesicles or other abnormalities Musculoskeletal: Lumbar dressing clean, dry, and intact. Sensations intact and pedal pulses palpable. Extremities: normal extremities, no cyanosis edema, contusions or wounds, no clubbing Neurological: alert and oriented x3, intact senses, motor, response and reflexes, normal strength Psychological: Appropriate mood and behavior Skin: Warm and dry, no lesions, no rashes Medication: Medications: Continuous Medications ------ 1. Lactated Ringers Infusion: 1000 mL IntraVenous Scheduled Medications ------ 1. Acetaminophen: 650 mg Oral Every 6 Hours 2. Atorvastatin: 40 mg Oral At Bedtime 3. Celecoxib (CELEBREX): 200 mg Oral 2 Times a Day With Meals 4. Docusate: 100 mg Oral 2 Times a Day 5. Metoprolol Tartrate: 25 mg Oral 2 Times a Day 6. Multivitamin with Minerals: 1 tablet(s) Oral Daily 7. Nortriptyline: 25 mg Oral Daily 8. Pantoprazole: 40 mg Oral Daily 9. Polyethylene Glycol: 17 gram(s) Oral 2 Times a Day PRN Medications ------ 1. Bisacodyl Enteric Coated: 10 mg Oral Daily 2. diazePAM (VALIUM): 5 mg Oral Every 6 Hours 3. diphenhydrAMINE: 25 mg Oral Every 6 Hours 4. Morphine Injectable: 2 mg IntraVenous Push Every 2 Hours 5. Ondansetron Injectable: 4 mg IntraVenous Push Every 3 Hours 6. oxyCODONE Immediate Release: 5 mg Oral Every 4 Hours 7. oxyCODONE Immediate Release: 10 mg Oral Every 4 Hours 8. Sore Throat Lozenge: 1 lozenge(s) Oral Every 4 Hours Currently Suspended Medications ------ 1. Furosemide: 20 mg Oral Daily 2. Lisinopril: 20 mg Oral Daily Assessment and Plan: Code Status: Code StatusFull Code Assessment: Subjective Patient resting comfortably in bed. Patient aware of plan of care. Impression S/P laminectomy fusion POD3 Dura tear repair PLAN Pain control TLSO brace when out of bed PT/OT DVT prophylaxis Discharge planning to home today Electronic Signatures: Gilda Mcmahon (QUALITY ASSURANCE PROJECT MANAGER-PRINCIPAL LAW CLERK) (Signed 07-Nov-2022 08:00) Authored: Service, Subjective Data, Objective Data, Assessment and Plan, Note Completion Abner Maldonado) (Signed 07-Nov-2022 11:31) Co-Signer: Service, Subjective Data, Objective Data, Assessment and Plan, Note Completion Last Updated: 07-Nov-2022 11:31 by Abner Maldonado) Normal [facility] Laboratory - Chemistry and C hemistry - challengeon 11-07-2022 Anion gap [Moles/Vol] 10 mmol/L 10 - 20 [facility] Work Phone: Calcium [Mass/Vol] 8.9 mg/dL 8.6 - 10.3 -[facility] [place] Work Phone: Chloride [Moles/Vol] 101 mmol/L 98 - 107 [facility] [place] Work Phone: CO2 [Moles/Vol] 29 mmol/L 21 - 32 -[facility] [place] Work Phone: Creatinine [Mass/Vol] 1.15 mg/dL See Below [facility] Work Phone: Comment on above: Reference Range: 0.5 0 - 1.30 Glucose [Mass/Vol] 106 mg/dL above high threshold 74 - 99 [facility] [place] Work Phone: Potassium [Moles/Vol] 4.5 mmol/L 3.5 - 5.3 [facility] Work Phone: Sodium [Moles/Vol] 135 mmol/L below low threshold 136 - 145 [facility] Work Phone: Urea nitrogen [Mass/Vol] 13 mg/dL 6 - 23 [facility] Work Phone: No Panel Informationon 11-07 70 {mL/min/1.73m2} >90 [facility] Work Phone: Comment on above: CALCULATIONS OF MEGAN MATED GFR ARE PERFORMED USING THE 2020 CKD-EPI STUDY REFIT EQUATION WITHOUT THE RACE VARIABLE FOR THE IDMS-TRACEABLE CREATININE METHODS.https://jasn.asnjournals.org/content//ASN .2351464620 Order Reconciliationon 11-07 Order Reconciliation Page 1 Discharge Reconciliation Document Reconciliation Type: Discharge requested on behalf of Gilda Mcmahon (Advanced Practice Nurse-Admit) done by Gilda Mcmahon (QUALITY ASSURANCE PROJECT MANAGER-[facility]) Discharge - Reconciliation: 07-Nov-2022 09:21 by: Gilda Mcmahon (QUALITY ASSURANCE PROJECT MANAGER-[facility]) Home Medications EnteredHOME MEDICATIONS AT DISCHARGE DateReconciliation Comment/ Additional Information atorvastatin 40 mg oral tablet 1 tab(s) orally once a day (at bedtime) 21-Oct-2022 14:02 atorvastatin 40 mg oral tablet 1 tab(s) orally once a day (at bedtime) 21-Oct-2022 14:02 atorvastatin 40 mg oral tablet is continued as atorvastatin 40 mg oral tablet baclofen 10 mg oral tablet 1 tab(s) orally once a day 21-Oct-2022 14:01 baclofen 10 mg oral tablet 1 tab(s) orally once a day 21-Oct-2022 14:01 baclofen 10 mg oral tablet is continued as baclofen 10 mg oral tablet Eliquis 5 mg oral tablet 1 tab(s) orally 2 times a day---AWARE TO HOLD PRIOR TO PROCEDURE 21-Oct-2022 13:56 Eliquis 5 mg oral tablet 1 tab(s) orally 2 times a day. Resume 11/11/22 Discontinued; Copy/Discontinue Eliquis 5 mg oral tablet is continued and modified furosemide 20 mg oral tablet 1 tab(s) orally once a day 21-Oct-2022 13:56 furosemide 20 mg oral tablet 1 tab(s) orally once a day 21-Oct-2022 13:56 furosemide 20 mg oral tablet is continued as furosemide 20 mg oral tablet lisinopril 20 mg oral tablet 1 tab(s) orally once a day 21-Oct-2022 13:56 lisinopril 20 mg oral tablet 1 tab(s) orally once a day. Resume 11/08/22 Discontinued; Copy/Discontinue lisinopril 20 mg oral tablet is continued and modified metoprolol tartrate 25 mg oral tablet 1 tab(s) orally 2 times a day---AWARE TO TAKE MORNING OF PROCEDUE WITH A SIP OF WATER 21-Oct-2022 13:57 metoprolol tartrate 25 mg oral tablet 1 tab(s) orally 2 times a day---AWARE TO TAKE MORNING OF PROCEDUE WITH A SIP OF WATER 21-Oct-2022 13:57 metoprolol tartrate 25 mg oral tablet is continued as metoprolol tartrate 25 mg oral tablet Multiple Vitamins oral tablet 1 tab(s) orally once a day 21-Oct-2022 14:02 Multiple Vitamins oral tablet 1 tab(s) orally once a day 21-Oct-2022 14:02 Multiple Vitamins oral tablet is continued as Multiple Vitamins oral tablet nortriptyline 25 mg oral capsule orally once a day 04-Nov-2022 05:52 nortriptyline 25 mg oral capsule orally once a day 04-Nov-2022 05:52 nortriptyline 25 mg oral capsule is continued as nortriptyline 25 mg oral capsule omeprazole 40 mg oral delayed release capsule 1 cap(s) orally once a day 21-Oct-2022 13:58 omeprazole 40 mg oral delayed release capsule 1 cap(s) orally once a day 21-Oct-2022 13:58 omeprazole 40 mg oral delayed release capsule is continued as omeprazole 40 mg oral delayed release capsule oxyBUTYnin 10 mg/24 hr oral tablet, extended release 1 tab(s) orally once a day 21-Oct-2022 13:58 oxyBUTYnin 10 mg/24 hr oral tablet, extended release 1 tab(s) orally once a day 21-Oct-2022 13:58 oxyBUTYnin 10 mg/24 hr oral tablet, extended release is continued as oxyBUTYnin 10 mg/24 hr oral tablet, extended release oxycodone-acetaminophen 5 mg-325 mg oral tablet 1 tab(s) orally 2 times a day, As Needed 21-Oct-2022 13:59 Discontinued; Discontinue from ORM oxycodone-acetaminophen 5 mg-325 mg oral tablet is not required Potassium Chloride (Rtd-Tzzj-Erg 10) 10 mEq oral tablet, extended release 1 tab(s) orally once a day 21-Oct-2022 13:59 Potassium Chloride (Fze-Ninz-Qhf 10) 10 mEq oral tablet, extended release 1 tab(s) orally once a day 21-Oct-2022 13:59 Potassium Chloride (Ksd-Lvxe-Wsy 10) 10 mEq oral tablet, extended release is continued as Potassium Chloride (Djc-Ojoc-Rhb 10) 10 mEq oral tablet, extended release Current OrdersDateHOME MEDICATIONS AT DISCHARGE DateReconciliation Comment/ Additional Information Acetaminophen Tablet (TYLENOL)DOSE = 650 mg Oral Every 6 Hours 04-Nov-2022 07:21 Acetaminophen is not required Atorvastatin Tablet (LIPITOR)DOSE = 40 mg Oral At Bedtime 04-Nov-2022 15:50 Atorvastatin is not required Bisacodyl Enteric Coated Enteric Coated Tablet (DULCOLAX)DOSE = 10 mg Oral Daily, PRN ConstipationClinician Notes: If NO result from Senokot. Do NOT use with Senokot. 04-Nov-2022 07:21 Bisacodyl Enteric Coated is not required Celecoxib (CELEBREX) CapsuleDOSE = 200 mg Oral 2 Times a Day With Meals 04-Nov-2022 07:21 Celecoxib (CELEBREX) is not required diazePAM (VALIUM) TabletDOSE = 5 mg Oral Every 6 Hours, PRN Muscle Spasms 04-Nov-2022 07:21 diazePAM (VALIUM) is not required diphenhydrAMINE Capsule (BENADRYL)DOSE = 25 mg Oral Every 6 Hours, PRN Itching 04-Nov-2022 07:21 diphenhydrAMINE is not required Docusate Capsule (COLACE)DOSE = 100 mg Oral 2 Times a Day 04-Nov-2022 07:21 Docusate is not required Furosemide Tablet (LASIX)DOSE = 20 mg Oral Daily 04-Nov-2022 15:48 Furosemide is not required Lactated Ringers Infusion IV Bag Volume = 1,000 mL Run at: 30 mL/hr IntraVenous 21-Oct-2022 14:46 Lactated Ringers (more content not included)... Normal [facility] Rehab Note-senior occupational therapist rohit 11-07-2022 Rehab Note-occupational therapy Rehab: Info: Mode of Treatmentoccupational therapy Time IN07:31 Time OUT08:00 Total Treatment [id number] Patient in ... at end of sessionchair; alarm on; Pt positioned in chair, all needs met and call light within reach. All questions and concerns addressed. Communicated with ... at end of sessionbedside nurse Patient Effortexcellent Treatment Considerations/CommentsL2- 3, L3-4 lami, L3-4 lateral lumbar interbody fusion, L 2-3, L3-4 posterior lateral fusion, thermal ablation L2-3, L3-4 Ángela 11/04/22 TLSO brace when OOB Spinal precautions Falls precautions Patient Response to TreatmentPt seen for skilled OT, cleared by RN for tx. Pt continues to progress towards goals this date. Pt required SBA with adl's and functional transfers. Patient/Family/Caregiver Comments/ObservationsPt reports that he spoke with his brother and confirmed that he will assist with adl's as needed. He also states that his brother located his two reachers and has them ready for him once discharged. Post Treatment SpO2 (%)94 % Post Treatment Oxygen Deliveryroom air Vision/Cognition: Affect/Mental Status (Cognitive)Improved cognition and anxiety this date Mobility/Tone: Bed Mobility Assessment/Interventionssu pine to sit Znknnp-lh-Oef Edgar (Bed Mobility)standby assist; verbal cues; nonverbal cues (demo/gesture) Comment, Bed MobilityEducated pt on log roll technique to maintain spinal precautions. Simulated home s/u and transferred towards right side. Transfer Assessment/Interventionssi t to stand transfer; stand to sit transfer; bed to chair transfer; toilet transfer; shower transfer Comment, TransfersMin verbal cues for hand placement with sit <>stand transfers. Bed-Chair Edgar (Transfers)standby assist Bed-Chair Assistive Device (Transfers)walker, front-wheeled Sit-Stand Edgar (Transfers)standby assist; Multiple sit <>stand transfers performed from various surfaces and surface heights. Pt benefits from elevated surfaces however is able to complete transfers from standard surface heights. Sit-Stand Assistive Device (Transfers)walker, front-wheeled Stand-Sit Edgar (Transfers)standby assist Stand-Sit Assistive Device (Transfers)walker, front-wheeled Shower Edgar (Transfers)Pt reports having shower chair at home which he has used prior to admission. Verbal education provided on safe transfer techniques. Pt also educated to have someone present with transfer for fall prevention. Toilet Edgar (Transfers)standby assist Toilet Assistive Device (Transfer)grab bars/safety frame; Pt reports having elevated toilet with B/L hand rails at home Comment, Gait/Stairs TrainingFunctional/ADL ambulation in room with FWW between ADL tasks (ambulation between bed, chair, toilet, sink) with SBA. Pt educated on ww safety and positioning with functional mobility. Pt tends to lift walker up when taking steps. Pt also educated on PLB with mobility and adl transfers. Pt demo'd fair return demonstration. ADL: BADL Assessment/Interventionlow er body dressing; toileting; grooming; bathing Edgar Level (Bathing)Pt educated on using a food vendor to complete LB bathing vs purchasing a LH sponge. Verbal and visual education provided on technique from seated position on shower chair. Pt verbalized understanding. Edgar Level (Lower Body Dressing)don; pants/bottoms; shoes/slippers Assistive Devices (Lower Body Dressing)food vendor Comment (Lower Body Dressing)Reviewed education on use of food vendor. Wilfredo pants while seated EOB with fair (+) balance. Pt donned LB clothing with SBA. Educated pt on how to use food vendor to wilfredo slip on shoes. Pt reports brother can also assist with donning shoes. Pt educated to not walk in tedhose only, always wear shoes or non-slip socks Edgar Level (Grooming)standby assist Position (Grooming)standing Edgar Level (Toileting)standby assist Position (Toileting)sitting Skilled BADL Treatment/Interventionadap tive equipment training; BADL process/adaptation training; compensatory training; energy conservation Motor: Cfa-mb-Ryqsb (Balance)F+ Standing, Static (Balance)F+ Standing, Dynamic (Balance)F+ Sensory: Pre-Treatment Pain Rating3/10 Post-Treatment Pain Rating3/10 Comment, Pre/Post Treatment Painlow back pain Ice provided at end of tx Outcomes Tools: Putting on and taking off regular lower body clothinga little Bathing (including washing, rinsing, drying)a little Toileting, which includes using toilet, bedpan or urinala little Putting on and taking off regular upper body clothinga little Taking care of personal grooming such as brushing teethnone Eating Mealsnone AM-PAC (OT) Total Score20 Short Term Goals: Functional Transfer: Established [id number] Functional Transfer: Goal Detailspt will transfer to bed ,chair, toilet with modified indep Functional Transfer: Time Frame for Go (more content not included)... Normal [facility] Rehab Note-physical therapyo n 11-07-2022 Rehab Note-physical therapy Rehab: Info: Disciplinephysical therapist Mode of Treatmentphysical therapy Time IN08:16 Time OUT08:48 Total Treatment [id number] Patient in ... at end of sessionchair; alarm on Patient Effortexcellent Treatment Considerations/CommentsSer vices provided by Alta Velez, SPT with direct supervision and guidance from Daniela Scott, PT Patient Response to TreatmentPt cooperative and expresses readiness to return home Mobility/Tone: Bed Mobility Assessment/InterventionsSi tting edge of bed <> sidelying <> supine: 4 trials SBA. Pt required minimal verbal cues during 1st trail for body positioning. Pt able to perform remaining 3 trials with no verbal cues. Pt benefits from positive feedback of his performance Transfer Assessment/InterventionsSi tting in recliner <> stand: SBA with FWW. TLSO brace in place. Pt required no verbal cues for hand placement or walker placement. Pt did not display SOB of dizziness upon standing. Stand <> sit: 4 trials SBA with FWW. TLSO brace in place. Pt was able to demonstrate understanding of hand placement and walker placement during all trials. Stand <> sitting edge of bed: SBA with FWW. TLSO brace in place. PT placed hands over lay out carpenter on walker to cue pt of his hand placement, pt able to self-correct. Gait/Stairs LocomotionTLSO brace in place. Pt ambulated 75'x2 SBA with FWW. Pt ambulated 20' x4 around obstacles making 3 right turns. Pt able to demonstrate proper body position within walker during all trials. Verbal cues required for step length, pt able to correct. Outcomes Tools: Turning from your back to your side while in a flat bed without using bedrails a little Moving from lying on your back to sitting on the side of a flat bed without using bedrailsa little Moving to and from bed to chair (including a wheelchair)a little Standing up from a chair using your arms (e.g. wheelchair or bedside chair)a little To walk in hospital rooma little Climbing 3-5 steps with railinga little AM-PAC (PT) Total Score18 Short Term Goals: Bed Mobility: Date [id number] Bed Mobility: Edgar Level Goalmodified independent; supine <> sidelying <> sitting Transfer: Established [id number] Transfer: Transfer Type Bxhcufh-ex-tzyqo/chair-to- bed; shc-vm-llmzm/qkoya-lt-mzt Transfer: Edgar Level Goalmodified independent Transfer: Assistive Device Goalrolling walker Gait: Established [id number] Gait: Edgar Level Goalmodified independent Gait: Assistive Device Goalrolling walker Gait: Distance [id number]' Education: Learnerpatient Barriers to Learningno barrier Methodverbal Outcome Evaluation1=partially meets; needs review Topicrehab plan of care; precautions; discharge recommendations including destination and/or equipment; fall prevention Education - Topicproper use of FWW for transfers and gait to reduce the risk of fall, reviewed spinal precautions and body mechanics for getting in and out of bed, concerns for discharging home Outcome Summary: Predicted Duration of Therapy [id number] days Progress: Physical Therapyprogress toward functional goals as expected Therapy Frequency (PT Eval)2 times/day Predicted Duration of Therapy [id number] days DC Recommendations: Discharge Recommendation (PT Eval)Pt would benefit from [facility] Electronic Signatures: Daniela Scott (PT) (Signed 07-Nov-2022 15:34) Co-Signer: Info, Mobility/Tone, Outcomes Tools, Short Term Goals, Education, Outcome Summary, DC Recommendations Fior Velez (SPT) (Signed 07-Nov-2022 13:43) Authored: Info, Mobility/Tone, Outcomes Tools, Short Term Goals, Education, Outcome Summary, DC Recommendations Last Updated: 07-Nov-2022 15:34 by Daniela Scott (PT) Normal [facility] BASIC METABOLIC PANELon - Anion gap [Moles/Vol] 9 mmol/L Low 10 - 20 [facility] Comment on above: Performed By: #### B MP #### [address] [id number] Calcium [Mass/Vol] 8.6 mg/dL Normal 8.6 - 10.3 [facility] Comment on above: Performed By: #### B MP #### [address] [id number] Chloride [Moles/Vol] 105 mmol/L Normal 98 - 107 [facility] Comment on above: Performed By: #### B MP #### [address] [id number] Creatinine [Mass/Vol] 1.37 mg/dL High 0.50 - 1.30 [facility] Comment on above: Performed By: #### B MP #### [address] [id number] GFR/1.73 sq M.predicted among non-blacks MDRD (S/P/Bld) [Vol rate/Area] 57 mL/min/{1.73_m2} Abnormal >90 [facility] Comment on above: Result Comment: CALC ULATIONS OF ESTIMATED GFR ARE PERFORMED USING THE 2020 CKD-EPI STUDY REFIT EQUATION WITHOUT THE RACE VARIABLE FOR THE IDMS-TRACEABLE CREATININE METHODS. https://jasn.asnjournals.org/content/early/ASN.4964555 988 Performed By: #### B MP #### [address] [id number] Glucose [Mass/Vol] 95 mg/dL Normal 74 - 99 [facility] Comment on above: Performed By: #### B MP #### [address] [id number] HCO3 (Bld) [Moles/Vol] 28 mmol/L Normal 21 - 32 [facility] Comment on above: Performed By: #### B MP #### [address] [id number] Potassium [Moles/Vol] 4.1 mmol/L Normal 3.5 - 5.3 [facility] Comment on above: Performed By: #### B MP #### [facility] [address] [place], [place] [id number] Sodium [Moles/Vol] 138 mmol/L Normal 136 - 145 [facility] Comment on above: Performed By: #### B MP #### [facility] [address] [place], [place] [id number] Urea nitrogen [Mass/Vol] 14 mg/dL Normal 6 - 23 [facility] Comment on above: Performed By: #### B MP #### [address] [id number] Daily Progress Note-General Internal Medicineon 11-06-2022 Daily Progress Note-General Internal Medicine Service: General Internal Medicine Subjective Data: ERIK MORALES is a 67 year old Male who is Hospital Day # 3 and POD #2 for 1. ;2. ;3. ;4. ;5. Patient examined and seen. Alert and oriented x3, resting comfortably. Patient denies chest pain, shortness of breath, palpitations, abdominal pain, fever or chills. Patient is agreeable to go home when cleared. Reports support system is intact. Objective Data: Objective Information: T PRBPMAPSpO2 [id number]% Date/Time11/06 8: 8: 8: 8: 8: 8:18 Range(36.2C - 37.4C ) (63 - 79 ) (16 - 18 ) (104 - 132 )/ (58 - 77 ) (76 - 97 ) (94% - 96% ) Highest temp of 37.4 C was recorded at 11/05 19:08 Pain reported at 11/06 7:23: sleeping ---- Intake and Output ----- Mn/Dy/Year TimeIntakeOutpres[facility] Nov 06, 2022 6:00 [id number] Nov 05, 2022 10:00 [id number] Nov 05, 2022 2:00 [id number] The Intake and Output Totals for the last 24 hours are: IntakeOutputNet [id number] Physical Exam Narrative: Physical Exam: Constitutional: awake/alert/oriented x3, cooperative Respiratory/Thorax: Patent airways, normal breath sounds Cardiovascular: Regular, rate and rhythm, no murmurs, 2+ equal pulses of the extremities, normal S 1and S 2 Gastrointestinal: Nondistended, soft, non-tender, Musculoskeletal: mild decrease range of motion to lumbar spine s/p sx intervention, good capillary refills bilaterally, +2 pulses, good sensation Extremities: normal extremities, incision covered CDI Skin: warm, dry, intact Neurological: alert/oriented x 3, speech clear Psychiatric: appropriate mood and behavior Medication: Medications: CARDIOVASCULAR AGENTS: 1. Metoprolol Tartrate: 25 mg Oral 2 Times a Day CENTRAL NERVOUS SYSTEM AGENTS: 1. Acetaminophen: 650 mg Oral Every 6 Hours 2. Celecoxib (CELEBREX): 200 mg Oral 2 Times a Day With Meals 3. Morphine Injectable: 2 mg IntraVenous Push Every 2 Hours PRN 4. oxyCODONE Immediate Release: 5 mg Oral Every 4 Hours PRN 5. oxyCODONE Immediate Release: 10 mg Oral Every 4 Hours PRN 6. Ondansetron Injectable: 4 mg IntraVenous Push Every 3 Hours PRN 7. diazePAM (VALIUM): 5 mg Oral Every 6 Hours PRN GASTROINTESTINAL AGENTS: 1. Bisacodyl Enteric Coated: 10 mg Oral Daily PRN 2. Docusate: 100 mg Oral 2 Times a Day 3. Polyethylene Glycol: 17 gram(s) Oral 2 Times a Day 4. Pantoprazole: 40 mg Oral Daily IMMUNOLOGIC AGENTS: 1. Influenza Virus (Inactive) HIGH DOSE Adult Vaccine: 0.7 mL IntraMuscular Once METABOLIC AGENTS: 1. Atorvastatin: 40 mg Oral At Bedtime NUTRITIONAL PRODUCTS: 1. Lactated Ringers Infusion: 1000 mL IntraVenous 2. Multivitamin with Minerals: 1 tablet(s) Oral Daily PSYCHOTHERAPEUTIC AGENTS: 1. Nortriptyline: 25 mg Oral Daily RESPIRATORY AGENTS: 1. diphenhydrAMINE: 25 mg Oral Every 6 Hours PRN TOPICAL AGENTS: 1. Sore Throat Lozenge: 1 lozenge(s) Oral Every 4 Hours PRN Currently Suspended Medications ------ 1. Lisinopril: 20 mg Oral Daily 2. Furosemide: 20 mg Oral Daily Recent Lab Results: Results: BMP: 11/06/2022 05:48 NA+ Cl- BUN / 138 105 14 / ------ Glucose - 95 K+ HCO3- Creat \ 4.1 28 1.37 H \ Calcium : 8.6 Anion Gap : 9 L Assessment and Plan: Code Status: Code StatusFull Code Assessment: Hospitalist team consulted for post op management of HTN. # Lumbar Stenosis, spondylolisthesis Back Pain Orthopedic Team Primary Pain and DVT Prophylaxis per Ortho team PT/OT treatment evaluation Fall precautions Incentive spirometer education and demonstration addressed Discharge planning [facility] reviewed Vital signs every 8 # HTN / HLD / Mitral valve regurgitation Hold Lisinopril Continue Lopressor and statin Add Telemetry for arrythmia monitoring Hold Lasix Hemodynamically stable # GERD Continue PPI Stay upright for 30minutes Take pain medications with food # Hx of PEs Eliquis to be resumed per Orthopedics team # JO 1.75 yesterday IVF given repeat labs shows 1.37 and trending down. on PAT labs 1.29, baseline Thank you for consult MEDICINE TO SIGN OFF CALL FOR ACUTE NEEDS Hemodynamically stable Time spent 36 minutes obtaining labs, imaging, recommendations, interview, assessment, examination, medication review/ordering, and EMR review. Plan of care was discussed extensively with patient, RN and Ortho ENGINEERING DOCUMENTATION SPECIALIST. Patient verbalized understanding through teach back method. All questions and concerns addressed upon examination. Of note, this documentation is completed using the [employer] Dictation system (voice recognition software). There may be spelling and/or grammatical errors that were not corrected prior to final submission. Plan of Care Reviewed With: Plan of Care Reviewed With: patient Elec (more content not included)... [facility] Daily Progress Note-Orthopae frederic 11-06-2022 Daily Progress Note-Orthopaedics Service: Orthopaedics Subjective Data: ERIK MORALES is a 67 year old Male who is Hospital Day # 3 and POD #2 for 1. ;2. ;3. ;4. ;5. Overnight Events: Patient had an uneventful night. Objective Data: Objective Information: T PRBPMAPSpO2 [id number]% Date/Time11/06 8: 8: 8: 8: 8: 8:18 Range(36.2C - 37.4C ) (63 - 79 ) (16 - 18 ) (104 - 132 )/ (58 - 77 ) (76 - 97 ) (94% - 96% ) Highest temp of 37.4 C was recorded at 11/05 19:08 Pain reported at 11/06 7:23: sleeping ---- Intake and Output ----- Mn/Dy/Year TimeIntakeOutputNet Nov 06, 2022 6:00 [id number] Nov 05, 2022 10:00 [id number] Nov 05, 2022 2:00 [id number] The Intake and Output Totals for the last 24 hours are: IntakeOutputNet [id number] T PRBPMAPSpO2 [id number]% Date/Time11/06 8: 8: 8: 8: 8: 8:18 Range(36.2C - 37.4C ) (63 - 79 ) (16 - 18 ) (104 - 132 )/ (58 - 77 ) (76 - 97 ) (94% - 96% ) Highest temp of 37.4 C was recorded at 11/05 19:08 Pain reported at 11/06 7:23: sleeping Physical Exam by System: Eyes: PERRL, EOMI, clear sclera ENMT: mucous membranes moist, no apparent injury, no lesions seen Head/Neck: Neck supple, no apparent injury, thyroid without mass or tenderness, No JVD, trachea midline, no bruits Respiratory/Thorax: Patent airways, CTAB, normal breath sounds with good chest expansion, thorax symmetric Cardiovascular: Regular, rate and rhythm, no murmurs, 2+ equal pulses of the extremities, normal S 1and S 2 Gastrointestinal: Nondistended, soft, non-tender, no rebound tenderness or guarding, no masses palpable, no organomegaly, +BS, no bruits Musculoskeletal: back dressing clean and dry Extremities: Moving all extremities Neurological: alert and oriented x3, intact senses, motor, response and reflexes, normal strength Skin: Warm and dry, no lesions, no rashes Medication: Medications: Continuous Medications ------ 1. Lactated Ringers Infusion: 1000 mL IntraVenous Scheduled Medications ------ 1. Acetaminophen: 650 mg Oral Every 6 Hours 2. Atorvastatin: 40 mg Oral At Bedtime 3. Celecoxib (CELEBREX): 200 mg Oral 2 Times a Day With Meals 4. Docusate: 100 mg Oral 2 Times a Day 5. Influenza Virus (Inactive) HIGH DOSE Adult Vaccine: 0.7 mL IntraMuscular Once 6. Metoprolol Tartrate: 25 mg Oral 2 Times a Day 7. Multivitamin with Minerals: 1 tablet(s) Oral Daily 8. Nortriptyline: 25 mg Oral Daily 9. Pantoprazole: 40 mg Oral Daily 10. Polyethylene Glycol: 17 gram(s) Oral 2 Times a Day PRN Medications ------ 1. Bisacodyl Enteric Coated: 10 mg Oral Daily 2. diazePAM (VALIUM): 5 mg Oral Every 6 Hours 3. diphenhydrAMINE: 25 mg Oral Every 6 Hours 4. Morphine Injectable: 2 mg IntraVenous Push Every 2 Hours 5. Ondansetron Injectable: 4 mg IntraVenous Push Every 3 Hours 6. oxyCODONE Immediate Release: 5 mg Oral Every 4 Hours 7. oxyCODONE Immediate Release: 10 mg Oral Every 4 Hours 8. Sore Throat Lozenge: 1 lozenge(s) Oral Every 4 Hours Currently Suspended Medications ------ 1. Furosemide: 20 mg Oral Daily 2. Lisinopril: 20 mg Oral Daily Recent Lab Results: Results: BMP: 11/06/2022 05:48 NA+ Cl- BUN / 138 105 14 / ------ Glucose - 95 K+ HCO3- Creat \ 4.1 28 1.37 H \ Calcium : 8.6 Anion Gap : 9 L I have reviewed these laboratory results: Basic Metabolic Panel 06-Nov-2022 05:48:00 ResultValue Glucose, Serum 95 NA 138 K 4.1 CL 105 Bicarbonate, Serum 28 Anion Gap, Serum 9 L BUN 14 CREAT 1.37 H GFR Male 57 A Calcium, Serum 8.6 Magnesium, Serum 06-Nov-2022 05:48:00 ResultValue Magnesium, Serum 2.06 Assessment and Plan: Daily Risk Screen: Does patient have an indwelling urinary catheteryes Plan for indwelling urinary catheter removal todayyes Code Status: Code StatusFull Code Assessment: Subjective. Patient's resting quietly states he feels pretty good today he denies having any headaches he is well informed of plan of care Objective. Vital signs stable. Back dressings clean and dry. Impression Laminectomy fusion postop day 2 Dura tear repair plan -PT/OT evaluation and treatment -Pain control -TLSO brace when up out of bed -home today Electronic Signatures: Derrick Cunningham (QUALITY ASSURANCE PROJECT MANAGER-PRINCIPAL LAW CLERK) (Signed 06-Nov-2022 09:07) Authored: Service, Subjective Data, Objective Data, Assessment and Plan, Note Completion Last Updated: 06-Nov-2022 09:07 by Derrick Cunningham (QUALITY ASSURANCE PROJECT MANAGER-PRINCIPAL LAW CLERK) [facility] Discharge [id number] Discharge Profile2 Discharge Orders: Anticipated Discharge Date: Anticipated Discharge [id number] Anticipated Discharge Time12:00 Problem List: Admitting Dx: Back pain: Catalog Name: Dorsalgia, unspecified Hospital Providers: Provider RoleProvider Name Curtis Lira Code Status: Code Status at Discharge: Full Code DNR Order Additional Instructions (peds only): Activity: activity as tolerated. May shower. May not return to school/work until follow-up visit with Instructions: May not drive until follow-up visit. Weight-bearing Instructions: full weight bearing. Other activity instructions: log roll into and out of bed. Diet: Dietresume normal diet Wound Care 1: Wound Siteback Wound Typesurgical incision Change Dressing1 time remove dressing on 11/11/22 Instructionsno lotions, creams, or tub soaks Additional Orders: Additional Instructions Discharge instructions Remove the dressing on your back on 11/11/22 Use the pain medication as needed Use the incentive spirometer ten times every hour Use ice every hour for 15-30 minutes Wear the surgical hose for three weeks Call Provider If (Homegoing Patients): Breathing faster than normal. Breathing harder than normal or having retractions. Fever of 100.4 F (38 C) or higher. Chills. Drinking less than normal. Urinating less than normal, over 1 day. Acting very sleepy and difficult to awaken. Vomiting (throwing up) and not able to eat or drink for 12 hours. 3 or more loose, watery bowel movements in 24 hours (diarrhea). Any new concerning symptoms. Provider FINAL REVIEW of Orders: Final Review: Final Review of Medication Reconciliation and Orders Completedby QUALITY ASSURANCE PROJECT MANAGER Reviewing ProviderFAINA Dwyer at 07-Nov-2022 09:17:40 Appointments: Follow-Up Appointment 01: Physician/Dept/ServiceDr. Meléndez Reason for Referralback Call to Schedule in2 weeks, please call ahead and schedule appointment [id number] Transportation [facility] Phone [phone] Electronic Signatures: Gilda Mcmahon (JESSICA-TRAY) (Signed 07-Nov-2022 09:17) Authored: Discharge Orders, Home Care Orders, Provider FINAL REVIEW of Orders, Appointments, Gold Form - Cannon Pinion Adjuster Summary Last Updated: 07-Nov-2022 09:17 by Gilda Mcmahon (JESSICA-PRINCIPAL LAW CLERK) [facility] Laboratory - Chemistry and C hemistry - challengeon 11-06-2022 Anion gap [Moles/Vol] 9 mmol/L below low threshold 10 - 20 -[place] [facility] Work Phone: Calcium [Mass/Vol] 8.6 mg/dL 8.6 - 10.3 [facility] Work Phone: Chloride [Moles/Vol] 105 mmol/L 98 - 107 [facility] [place] Work Phone: CO2 [Moles/Vol] 28 mmol/L 21 - 32 [facility] [place] Work Phone: Creatinine [Mass/Vol] 1.37 mg/dL above high threshold See Below [facility] Work Phone: Comment on above: Reference Range: 0.5 0 - 1.30 Glucose [Mass/Vol] 95 mg/dL 74 - 99 [facility] [facility] [place] Work Phone: Potassium [Moles/Vol] 4.1 mmol/L 3.5 - 5.3 [facility] [place] Work Phone: Sodium [Moles/Vol] 138 mmol/L 136 - 145 [address] [facility] Work Phone: Urea nitrogen [Mass/Vol] 14 mg/dL 6 - 23 [facility] Work Phone: MAGNESIUMon 11-06-2022 Magnesium [Mass/Vol] 2.06 mg/dL Normal 1.60 - 2.40 [facility] Comment on above: Performed By: #### M G #### [address] [phone] Magnesium, Serumon Magnesium [Mass/Vol] 2.06 mg/dL See Below MP[facility] Work Phone: Comment on above: Reference Range: 1.6 0 - 2.40 No Panel Informationon 11-06 57 {mL/min/1.73m2} Abnormal >[address] [facility] [place] Work Phone: Comment on above: CALCULATIONS OF MEGAN MATED GFR ARE PERFORMED USING THE 2020 CKD-EPI STUDY REFIT EQUATION WITHOUT THE RACE VARIABLE FOR THE IDMS-TRACEABLE CREATININE METHODS.https://jasn.asnjournals.org/content//ASN .2183798752 Rehab Note-senior occupational therapist rohit 11-06-2022 Rehab Note-occupational therapy Rehab: Info: Mode of Treatmentoccupational therapy Time IN10:20 Time OUT10:58 Total Treatment [id number] Patient in ... at end of sessionchair; alarm on; Pt positioned in chair, all needs met and call light within reach. All questions and concerns addressed. Communicated with ... at end of sessionbedside nurse Treatment Considerations/CommentsL2- 3, L3-4 lami, L3-4 lateral lumbar interbody fusion, L 2-3, L3-4 posterior lateral fusion, thermal ablation L2-3, L3-4 Ángela 11/04/22 TLSO brace when OOB Spinal precautions Falls precautions Patient Response to TreatmentPt seen for skilled OT treatment this date. Presents in chair, pt just finished with PT tx. Cleared by nursing for participation. Pt is pleasant and agreeable to OT. Pt concerned with adl impairments and lack of assistance from brother. Pt educated on different types of AE and compensatory techniques to increase independence and safety. Line and Tubestelemetry During Treatment SpO2 (%)94 % During Treatment Oxygen Deliveryroom air Vision/Cognition: Affect/Mental Status (Cognitive)WNL; Mild confusion Orientation Status (Cognition)oriented x 3 Mobility/Tone: Transfer Assessment/Interventionssi t to stand transfer; stand to sit transfer; toilet transfer Comment, TransfersPt requires min verbal cues for safety and hand placement with sit<>stand transfers. Pt aware to sit in chairs with armrests and avoid sitting on sofas and armless chairs. Sit-Stand Edgar (Transfers)contact guard Sit-Stand Assistive Device (Transfers)walker, front-wheeled Stand-Sit Edgar (Transfers)contact guard Stand-Sit Assistive Device (Transfers)walker, front-wheeled Toilet Edgar (Transfers)contact guard Toilet Assistive Device (Transfer)grab bars/safety frame; Pt reports having elevated toilet seat with b/l hand rails Comment, Gait/Stairs TrainingFunctional/ADL ambulation in room with FWW between ADL tasks (ambulation between bed, chair, toilet, sink) with CGA ADL: BADL Assessment/Interventionlow er body dressing; upper body dressing; toileting; grooming Comment (Upper Body Dressing)Pt able to doff/wilfredo TLSO brace from seated level, min assist to readjust brace for proper fit and alignment. UB bathing and dressing with SBA Edgar Level (Lower Body Dressing)don; pants/bottoms; shoes/slippers; minimum assist (75% patient effort) Assistive Devices (Lower Body Dressing)food vendor Comment (Lower Body Dressing)Pt educated on use of food vendor and sock aid for LB dressing with fair understanding and return demonstration. Edgar Level (Grooming)contact guard Comment (Grooming)Pt performed G/H tasks in stance at sink with fair balance x 2 1/2 min Motor: Zry-mb-Zmjeb (Balance)fair balance Standing, Static (Balance)fair balance Standing, Dynamic (Balance)fair balance Balance ActivitiesPt completed stand balance activities at FWW level with fair stand balance; max stand endurance ~3 min with completion of functional activities Sensory: Pre-Treatment Pain Rating4/10 Post-Treatment Pain Rating4/10 Comment, Pre/Post Treatment Painlow back pain and left LE pain Pt declined ice; encouraged pt to use ice later today Outcomes Tools: Putting on and taking off regular lower body clothinga little Bathing (including washing, rinsing, drying)a little Toileting, which includes using toilet, bedpan or urinala little Putting on and taking off regular upper body clothinga little Taking care of personal grooming such as brushing teetha little Eating Mealsa little AM-PAC (OT) Total Score18 Short Term Goals: Functional Transfer: Established Functional Transfer: Goal Detailspt will transfer to bed ,chair, toilet with modified indep Functional Transfer: Time Frame for Goal2 wks Balance: Established Balance: Goal DetailsPt will demo fair + dyn std balance with ADLS Balance: Time Frame for Goal2 wks Upper Body Dressing: Established Upper Body Dressing: Edgar Level Goalstand-by assist Upper Body Dressing: Time Frame for Goal2 wks Lower Body Dressing: Established Lower Body Dressing: Edgar Level Goalminimum assist (75% patients effort) Lower Body Dressing: Time Frame for Goal2 wks Following Precautions: Established Following Precautions: Goal Detailspt will verbalize and adhere to spinal precautions indep Following Precautions: Time Frame for Goal2 wks Education: Learnerpatient Barriers to Learningacuteness of illness barrier; cognitive limitations barrier; physical limitations barrier Methoddemonstration; verbal Outcome Evaluation1=partially meets; needs review Topicrehab plan of care; precautions; ADL/IADL adaptive equipment; discharge recommendations including destination and/or equipment; fall prevention; activity/rest routine to decrease pain; proper positioning to d (more content not included)... [facility] Rehab Note-physical therapyo n 11-06-2022 Rehab Note-physical therapy Rehab: Info: Disciplinephysical therapist Mode of Treatmentphysical therapy Time IN13:41 Time OUT14:07 Total Treatment [id number] Patient in ... at end of sessionbed, 3 railings up; alarm on Patient Effortexcellent Treatment Considerations/CommentsSer vices provided by RAFAEL Holt with direct supervision and guidance from Daniela Scott, PT Patient Response to TreatmentPt cooperative during treatment. Able to implement verbal cues from previous session with less than 25% cueing. Mobility/Tone: Bed Mobility Assessment/InterventionsSu pine <> sidelying <> sitting edge of bed: SBA. Pt able to recall instructions on technique and execute with minimal cueing. Verbal cue required to bring both LEs off the bed during sidelying>sitting transition. Transfer Assessment/InterventionsSi tting edge of bed >stand: SBA with FWW. TLSO brace in place. Verbal cue required for hand placement prior to transition. Pt tries to stand as soon as told without waiting for FWW to be in front of him, needs reminder to not try and stand up without the FWW Stand <> sit in chair: 3 trials. SBA with FWW. Pt able to demonstrate proper hand placement during all transitions. Verbal cues given for pt to bring walker all the way to edge of chair before trying to sit. Stand>sitting edge of bed: SBA with FWW. Pt demonstrated proper walker placement with verbal cues. Failed to release hands from walker and reach back for surface during transition. Gait/Stairs LocomotionTLSO brace in place. Pt ambulated 75'x2 CGA with FWW. Verbal cues required for body position in walker required both times. Pt ambulated 20' x2 around obstacles making 3 right turns. Verbal cues required for pt positioning in walker during turns. Sensory: Pre-Treatment Pain Rating2/10 Post-Treatment Pain Rating2/10 Comment, Pre/Post Treatment PainPt reported 2/10 in his mid-low back at end of session. Ice pack wrapped in a pillowcase put in place after session. Outcomes Tools: Turning from your back to your side while in a flat bed without using bedrails a little Moving from lying on your back to sitting on the side of a flat bed without using bedrailsa little Moving to and from bed to chair (including a wheelchair)a little Standing up from a chair using your arms (e.g. wheelchair or bedside chair)a little To walk in hospital rooma little Climbing 3-5 steps with railinga little AM-PAC (PT) Total Score18 Short Term Goals: Bed Mobility: Date [id number] Bed Mobility: Edgar Level Goalmodified independent; supine <> sidelying <> sitting Transfer: Established Transfer: Transfer Type Vwoytyj-am-qocrn/chair-to- bed; rxx-nl-zmiwb/ticqh-vg-rjn Transfer: Edgar Level Goalmodified independent Transfer: Assistive Device Goalrolling walker Gait: Established Gait: Edgar Level Goalmodified independent Gait: Assistive Device Goalrolling walker Gait: Distance [id number]' Education: Learnerpatient Barriers to Learningno barrier Methodverbal Outcome Evaluation1=partially meets; needs review Topicrehab plan of care; precautions; discharge recommendations including destination and/or equipment; fall prevention Education - Topicproper use of FWW for transfers and gait to reduce the risk of fall, reviewed spinal precautions and body mechanics for getting in and out of bed, concerns for discharging home Outcome Summary: Predicted Duration of Therapy Jfhpvaftafby12 days Progress: Physical Therapyprogress toward functional goals as expected Therapy Frequency (PT Eval)2 times/day Predicted Duration of Therapy [id number] days DC Recommendations: Discharge Recommendation (PT Eval)Pt would benefit from [facility] Electronic Signatures: Daniela Scott (PT) (Signed 07-Nov-2022 03:43) Co-Signer: Info, Mobility/Tone, Motor, Sensory, Outcomes Tools, Short Term Goals, Education, Outcome Summary, DC Recommendations Fior Velez (SPT) (Signed 06-Nov-2022 14:31) Authored: Info, Mobility/Tone, Motor, Sensory, Outcomes Tools, Short Term Goals, Education, Outcome Summary, DC Recommendations Last Updated: 07-Nov-2022 03:43 by Daniela Scott (PT) [facility] Rehab Note-physical therapy Rehab: Info: Mode of Treatmentphysical therapy Time IN09:36 Time OUT10:17 Total Treatment [id number] Patient in ... at end of sessionchair; alarm on Patient Effortgood Symptoms Noted During/After Treatmentfatigue Treatment Considerations/CommentsSer vices provided by Alta Velez, [facility] with direct supervision and guidance from Daniela Scott, PT Patient Response to TreatmentPt cooperative but fatigued very quickly. Began to decline in performance with repetitive tasks Patient/Family/Caregiver Comments/ObservationsPt expressed concerns with returning home due to living with brother who is in questionable health. Is fearful of falling and being able to care for himself at home Pre Treatment Patient Positionstanding Mobility/Tone: Bed Mobility Assessment/InterventionsSi tting edge of bed <> sidelying <> supine: 4 trials CGA. Pt required numerous verbal cues for body mechanics and maintaining spinal precautions. Pt shifted body further into bed during each trail, verbal cues required for pt to reposition his body in both supine and sitting edge of bed. Transfer Assessment/InterventionsSi tting in recliner > stand: SBA with FWW. TLSO brace in place. Pt required verbal cues to push from armrest of chair during transition. Stand <> sitting in chair: CGA with FWW. TLSO brace in place. Pt required verbal cueing to use armrests of chair for transitioning instead of using FWW. Stand <> sitting edge of bed: SBA with FWW. TLSO brace in place. Pt was able to push from bed with UEs during transition. Gait/Stairs LocomotionTLSO brace in place. Pt ambulated 75'x2 CGA with FWW. Verbal cues provided to push walker instead of lifting, keep body within the walker base, and use bigger steps that correlate with distance he pushes out the walker. Outcomes Tools: Turning from your back to your side while in a flat bed without using bedrails a little Moving from lying on your back to sitting on the side of a flat bed without using bedrailsa little Moving to and from bed to chair (including a wheelchair)a little Standing up from a chair using your arms (e.g. wheelchair or bedside chair)a little To walk in hospital rooma little Climbing 3-5 steps with railinga jessica AM-PAC (PT) Total Score18 Short Term Goals: Bed Mobility: Date [id number] Bed Mobility: Edgar Level Goalmodified independent; supine <> sidelying <> sitting Transfer: Established [id number] Transfer: Transfer Type Udmknqg-bf-bmuot/chair-to- bed; xpz-ci-fpcgv/givcp-hk-quy Transfer: Edgar Level Goalmodified independent Transfer: Assistive Device Goalrolling walker Gait: Established [id number] Gait: Edgar Level Goalmodified independent Gait: Assistive Device Goalrolling walker Gait: Distance [id number]' Education: Learnerpatient Methodverbal Topicrehab plan of care; precautions; discharge recommendations including destination and/or equipment; fall prevention Education - Topicproper use of FWW for transfers and gait to reduce the risk of fall, reviewed spinal precautions and body mechanics for getting in and out of bed, concerns for discharging home Outcome Summary: Predicted Duration of Therapy Sbdfogvlckmn08 days Progress: Physical Therapyprogress towards functional goals is fair Therapy Frequency (PT Eval)2 times/day Predicted Duration of Therapy [id number] days DC Recommendations: Discharge Recommendation (PT Eval)Pt would benefit from [facility] Electronic Signatures: Daniela Scott (PT) (Signed 07-Nov-2022 03:43) Co-Signer: Info, Mobility/Tone, Outcomes Tools, Short Term Goals, Education, Outcome Summary, DC Recommendations Fior Velez (SPT) (Signed 06-Nov-2022 14:30) Authored: Info, Mobility/Tone, Outcomes Tools, Short Term Goals, Education, Outcome Summary, DC Recommendations Last Updated: 07-Nov-2022 03:43 by Daniela Scott (PT) Normal [facility] BASIC METABOLIC PANELon - Anion gap [Moles/Vol] 12 mmol/L Normal 10 - 20 [facility] Comment on above: Performed By: #### B MP #### [address] [id number] Calcium [Mass/Vol] 8.8 mg/dL Normal 8.6 - 10.3 [facility] Comment on above: Performed By: #### B MP #### [address] [id number] Chloride [Moles/Vol] 101 mmol/L Normal 98 - 107 [facility] Comment on above: Performed By: #### B MP #### [address] [id number] Creatinine [Mass/Vol] 1.75 mg/dL High 0.50 - 1.30 [facility] Comment on above: Performed By: #### B MP #### [address] [id number] GFR/1.73 sq M.predicted among non-blacks MDRD (S/P/Bld) [Vol rate/Area] 42 mL/min/{1.73_m2} Abnormal >90 [facility] Comment on above: Result Comment: CALC ULATIONS OF ESTIMATED GFR ARE PERFORMED USING THE 2020 CKD-EPI STUDY REFIT EQUATION WITHOUT THE RACE VARIABLE FOR THE IDMS-TRACEABLE CREATININE METHODS. https://jasn.asnjournals.org/content/early//ASN.1142891 988 Performed By: #### B MP #### [address] [id number] Glucose [Mass/Vol] 131 mg/dL High 74 - 99 [facility] Comment on above: Performed By: #### B MP #### [address] [id number] HCO3 (Bld) [Moles/Vol] 26 mmol/L Normal 21 - 32 [facility] Comment on above: Performed By: #### B MP #### [address] [id number] Potassium [Moles/Vol] 4.0 mmol/L Normal 3.5 - 5.3 [facility] Comment on above: Performed By: #### B MP #### [address] [id number] Sodium [Moles/Vol] 135 mmol/L Low 136 - 145 [facility] Comment on above: Performed By: #### B MP #### [address] [id number] Urea nitrogen [Mass/Vol] 14 mg/dL Normal 6 - 23 [facility] Comment on above: Performed By: #### B MP #### [address] [id number] CBCon 11-05-2022 Erythrocyte distribution width (RBC) [Ratio] 13.4 % Normal 11.5 - 14.5 [facility] Comment on above: Performed By: #### C BC #### [address] [id number] Hematocrit (Bld) [Volume fraction] 43.6 % Normal 41.0 - 52.0 [facility] Comment on above: Performed By: #### C BC #### [address] [id number] Hemoglobin (Bld) [Mass/Vol] 14.3 g/dL Normal 13.5 - 17.5 [facility] Comment on above: Performed By: #### C BC #### [address] [id number] MCHC (RBC) [Mass/Vol] 32.8 g/dL Normal 32.0 - 36.0 [facility] Comment on above: Performed By: #### C BC #### [address] [id number] MCV (RBC) [Entitic vol] 96 fL Normal 80 - 100 [facility] Comment on above: Performed By: #### C BC #### [address] [id number] Platelets (Bld) [#/Vol] 244 10*3/uL Normal 150 - 450 [facility] Comment on above: Performed By: #### C BC #### [address] [id number] RBC 4.54 x10E12/L Normal 4.50 - 5.90 [facility] Comment on above: Performed By: #### C BC #### [address] [id number] WBC (Bld) [#/Vol] 16.4 10*3/uL High 4.4 - 11.3 [facility] Comment on above: Performed By: #### C BC #### [address] [id number] Daily Progress Note-General Internal Medicineon 11-05-2022 Daily Progress Note-General Internal Medicine Consult Type: subsequent visit/care Service: General Internal Medicine Subjective Data: ERIK MORALES is a 67 year old Male who is Hospital Day # 2 and POD #1 for 1. ;2. ;3. ;4. ;5. Patient examined and seen. Alert and oriented x3, resting comfortably sitting in chair. Patient denies chest pain, shortness of breath, palpitations, abdominal pain, fever or chills. Patient is agreeable to go home when cleared. Reports support system is intact. Objective Data: Objective Information: T PRBPMAPSpO2 [id number]% Date/Time11/05 7: 0: 0: 7: 7: 7:33 Range(36.1C - 36.8C ) (62 - 79 ) (16 - 20 ) (119 - 144 )/ (70 - 85 ) (92 - 101 ) (95% - 97% ) As of 04-Nov-2022 19:50:00, patient is on 2 L/min of oxygen via room air. Pain reported at 11/05 8:43: 3 = Mild ---- Intake and Output ----- Mn/Dy/Year TimeIntakeOutputNet Nov 05, 2022 6:00 [id number] Nov 04, 2022 10:00 [id number] Nov 04, 2022 2:00 [id number] The Intake and Output Totals for the last 24 hours are: IntakeOutputNet [id number] Physical Exam Narrative: Physical Exam: Constitutional: awake/alert/oriented x3, cooperative Respiratory/Thorax: Patent airways, normal breath sounds Cardiovascular: Regular, rate and rhythm, no murmurs, normal S 1and S 2 Gastrointestinal: Nondistended, soft, non-tender, Musculoskeletal: mild decrease range of motion to lumbar spine s/p sx intervention, good capillary refills bilaterally, +2 pulses, good sensation MICHAEL drain with serosanguineous drainage Extremities: normal extremities, incision covered CDI , brace in place Skin: warm, dry, intact Neurological: alert/oriented x 3, speech clear Psychiatric: appropriate mood and behavior Medication: Medications: CARDIOVASCULAR AGENTS: 1. Metoprolol Tartrate: 25 mg Oral 2 Times a Day CENTRAL NERVOUS SYSTEM AGENTS: 1. Acetaminophen: 650 mg Oral Every 6 Hours 2. Celecoxib (CELEBREX): 200 mg Oral 2 Times a Day With Meals 3. Morphine Injectable: 2 mg IntraVenous Push Every 2 Hours PRN 4. oxyCODONE Immediate Release: 5 mg Oral Every 4 Hours PRN 5. oxyCODONE Immediate Release: 10 mg Oral Every 4 Hours PRN 6. Ondansetron Injectable: 4 mg IntraVenous Push Every 3 Hours PRN 7. diazePAM (VALIUM): 5 mg Oral Every 6 Hours PRN GASTROINTESTINAL AGENTS: 1. Bisacodyl Enteric Coated: 10 mg Oral Daily PRN 2. Docusate: 100 mg Oral 2 Times a Day 3. Polyethylene Glycol: 17 gram(s) Oral 2 Times a Day 4. Pantoprazole: 40 mg Oral Daily IMMUNOLOGIC AGENTS: 1. Influenza Virus (Inactive) HIGH DOSE Adult Vaccine: 0.7 mL IntraMuscular Once METABOLIC AGENTS: 1. Atorvastatin: 40 mg Oral At Bedtime NUTRITIONAL PRODUCTS: 1. Lactated Ringers Infusion: 1000 mL IntraVenous 2. Lactated Ringers Infusion: 1000 mL IntraVenous 3. Multivitamin with Minerals: 1 tablet(s) Oral Daily PSYCHOTHERAPEUTIC AGENTS: 1. Nortriptyline: 25 mg Oral Daily RESPIRATORY AGENTS: 1. diphenhydrAMINE: 25 mg Oral Every 6 Hours PRN TOPICAL AGENTS: 1. Sore Throat Lozenge: 1 lozenge(s) Oral Every 4 Hours PRN Currently Suspended Medications ------ 1. Lisinopril: 20 mg Oral Daily 2. Furosemide: 20 mg Oral Daily Recent Lab Results: Results: I have reviewed these laboratory results: Basic Metabolic Panel 05-Nov-2022 08:44:00 ResultValue Glucose, Serum 131 H NA 135 L K 4.0 CL 101 Bicarbonate, Serum 26 Anion Gap, Serum 12 BUN 14 CREAT 1.75 H GFR Male 42 A Calcium, Serum 8.8 Complete Blood Count 05-Nov-2022 08:43:00 ResultValue White Blood Cell Count 16.4 H Red Blood Cell Count 4.54 HGB 14.3 HCT 43.6 MCV 96 MCHC 32.8 PLT 244 RDW-CV 13.4 Assessment and Plan: Daily Risk Screen: Does patient have an indwelling urinary catheteryes Plan for indwelling urinary catheter removal todayyes Code Status: Code StatusFull Code Assessment: Hospitalist team consulted for post op management of HTN. # Lumbar Stenosis, spondylolisthesis Back Pain Orthopedic Team Primary Pain and DVT Prophylaxis per Ortho team PT/OT treatment evaluation Fall precautions Incentive spirometer education and demonstration addressed Discharge planning CBC BMP reviewed Vital signs every 8 # HTN / HLD / Mitral valve regurgitation Hold Lisinopril Continue Lopressor and statin Add Telemetry for arrythmia monitoring Hold Lasix Hemodynamically stable # GERD Continue PPI Stay upright for 30minutes Take pain medications with food # Hx of PEs Eliquis to be resumed per Orthopedics team # JO Give IVF bolus baseline 1.29 today 1.75 likely pre renal due to ELIZABETH and Diuretic use Hold Lisinopril Repeat labs in AM Thank you for consult Medicine will continue to follow Hemodynamically stable Time spent 37 minutes obtaining labs, imaging, recommendations, interview, assessm (more content not included)... Normal [facility] Daily Progress Note-Orthopae frederic 11-05-2022 Daily Progress Note-Orthopaedics Service: Orthopaedics Subjective Data: ERIK MORALES is a 67 year old Male who is Hospital Day # 2 and POD #1 for 1. ;2. ;3. ;4. ;5. Overnight Events: Patient had an uneventful night. Objective Data: Objective Information: T PRBPMAPSpO2 [id number]% Date/Time11/05 7: 0:40912 0:40912 7:339 7: 7:33 Range(36.1C - 36.8C ) (62 - 79 ) (16 - 20 ) (119 - 144 )/ (70 - 85 ) (92 - 101 ) (95% - 97% ) As of 04-Nov-2022 19:50:00, patient is on 2 L/min of oxygen via nasal cannula. Pain reported at 11/05 7:33: 2 = Mild ---- Intake and Output ----- Mn/Dy/Year TimeIntakeOutputNet Nov 05, 2022 6:00 [id number] Nov 04, 2022 10:00 [id number] Nov 04, 2022 2:00 [id number] The Intake and Output Totals for the last 24 hours are: IntakeOutputNet [id number] T PRBPMAPSpO2 [id number]% Date/Time11/05 7: 0: 0: 7: 7: 7:33 Range(36.1C - 36.8C ) (62 - 79 ) (16 - 20 ) (119 - 144 )/ (70 - 85 ) (92 - 101 ) (95% - 97% ) As of 04-Nov-2022 19:50:00, patient is on 2 L/min of oxygen via nasal cannula. Pain reported at 11/05 7:33: 2 = Mild Physical Exam by System: Eyes: PERRL, EOMI, clear sclera ENMT: mucous membranes moist, no apparent injury, no lesions seen Head/Neck: Neck supple, no apparent injury, thyroid without mass or tenderness, No JVD, trachea midline, no bruits Respiratory/Thorax: Patent airways, CTAB, normal breath sounds with good chest expansion, thorax symmetric Cardiovascular: Regular, rate and rhythm, no murmurs, 2+ equal pulses of the extremities, normal S 1and S 2 Gastrointestinal: Nondistended, soft, non-tender, no rebound tenderness or guarding, no masses palpable, no organomegaly, +BS, no bruits Musculoskeletal: back dressing clean and dry MICHAEL drain in place Extremities: Moving all extremities Neurological: alert and oriented x3, intact senses, motor, response and reflexes, normal strength Skin: Warm and dry, no lesions, no rashes Medication: Medications: Continuous Medications ------ 1. Lactated Ringers Infusion: 1000 mL IntraVenous 2. Lactated Ringers Infusion: 1000 mL IntraVenous Scheduled Medications ------ 1. Acetaminophen: 650 mg Oral Every 6 Hours 2. Atorvastatin: 40 mg Oral At Bedtime 3. Celecoxib (CELEBREX): 200 mg Oral 2 Times a Day With Meals 4. Docusate: 100 mg Oral 2 Times a Day 5. Influenza Virus (Inactive) HIGH DOSE Adult Vaccine: 0.7 mL IntraMuscular Once 6. Metoprolol Tartrate: 25 mg Oral 2 Times a Day 7. Multivitamin with Minerals: 1 tablet(s) Oral Daily 8. Nortriptyline: 25 mg Oral Daily 9. Pantoprazole: 40 mg Oral Daily 10. Polyethylene Glycol: 17 gram(s) Oral 2 Times a Day 11. Vancomycin 1 gram IVPB/ Premixed Soln 200 mL: 1 gram(s) IntraVenous Piggyback Every 12 Hours PRN Medications ------ 1. Bisacodyl Enteric Coated: 10 mg Oral Daily 2. diazePAM (VALIUM): 5 mg Oral Every 6 Hours 3. diphenhydrAMINE: 25 mg Oral Every 6 Hours 4. Morphine Injectable: 2 mg IntraVenous Push Every 2 Hours 5. Ondansetron Injectable: 4 mg IntraVenous Push Every 3 Hours 6. oxyCODONE Immediate Release: 5 mg Oral Every 4 Hours 7. oxyCODONE Immediate Release: 10 mg Oral Every 4 Hours 8. Sore Throat Lozenge: 1 lozenge(s) Oral Every 4 Hours Currently Suspended Medications ------ 1. Furosemide: 20 mg Oral Daily 2. Lisinopril: 20 mg Oral Daily Assessment and Plan: Daily Risk Screen: Does patient have an indwelling urinary catheteryes Plan for indwelling urinary catheter removal todayyes Code Status: Code StatusFull Code Advance Care Planning: Advance Care Planning: I evaluated the patient and determined the patient's capacity to understand the risks, benefits and alternatives to treatment. I elicited the patient's goals for treatment and reviewed advance directives and medical orders for life sustaining treatment. The patient was given an opportunity to review a blank advance directive as appropriate. Assessment: Subjective. Patient's resting quietly states he feels pretty good today he denies having any headaches he is well informed of plan of care Objective. Vital signs stable. Back dressings clean and dry. MICHAEL drain in place Impression Laminectomy fusion postop day 1 Dura tear repair plan -PT/OT evaluation and treatment -Pain control -TLSO brace when up out of bed Electronic Signatures: Derrick Cunningham (QUALITY ASSURANCE PROJECT MANAGER-PRINCIPAL LAW CLERK) (Signed 05-Nov-2022 08:16) Authored: Service, Subjective Data, Objective Data, Assessment and Plan, Note Completion Curtis Maldonado) (Signed 05-Nov-2022 09:30) Co-Signer: Service, Subjective Data, Objective Data, Assessment and Plan, Note Completion Last Updated: 05-Nov-2022 09:30 by Curtis Maldonado) [facility] Laboratory - Chemistry and C hemistry - challengeon 11-05-2022 Anion gap [Moles/Vol] 12 mmol/L 10 - 20 [facility] [place] Work Phone: Calcium [Mass/Vol] 8.8 mg/dL 8.6 - 10.[address] [facility] [place] Work Phone: Chloride [Moles/Vol] 101 mmol/L 98 - 107 [facility] [place] Work Phone: CO2 [Moles/Vol] 26 mmol/L 21 - 32 [facility] [place] Work Phone: Creatinine [Mass/Vol] 1.75 mg/dL above high threshold See Below [facility] [place] Work Phone: Comment on above: Reference Range: 0.5 0 - 1.30 Glucose [Mass/Vol] 131 mg/dL above high threshold 74 - 99 -[place] [facility] [place] [place] Work Phone: Potassium [Moles/Vol] 4.0 mmol/L 3.5 - 5.3 [facility] [place] [place] Work Phone: Sodium [Moles/Vol] 135 mmol/L below low threshold 136 - 145 [facility] [place] [place] Work Phone: Urea nitrogen [Mass/Vol] 14 mg/dL 6 - 23 [facility] [place] Work Phone: Laboratory - Hematology and Cell countson 11-05-2022 Erythrocyte distribution width (RBC) [Ratio] 13.4 % See Below [facility] Work Phone: Comment on above: Reference Range: 11. 5 - 14.5 Hematocrit (Bld) [Volume fraction] 43.6 % See Below [facility] Work Phone: Comment on above: Reference Range: 41. 0 - 52.0 Hemoglobin (Bld) [Mass/Vol] 14.3 g/dL See Below [facility] Work Phone: [phone] Comment on above: Reference Range: 13. 5 - 17.5 MCHC (RBC) [Mass/Vol] 32.8 g/dL See Below [facility] Work Phone: Comment on above: Reference Range: 32. 0 - 36.0 MCV (RBC) [Entitic vol] 96 fL 80 - 100 [facility] Work Phone: [phone] Platelets (Bld) [#/Vol] 244 10*3/uL 150 - 450 [facility] Work Phone: [phone] RBC (Bld) [#/Vol] 4.54 {x10E12/L} See Below [facility] Work Phone: [phone] Comment on above: Reference Range: 4.5 0 - 5.90 WBC (Bld) [#/Vol] 16.4 10*3/uL above high threshold 4.4 - 11.3 [facility] Work Phone: No Panel Informationon 11-05 42 {mL/min/1.73m2} Abnormal >[address] [facility] Work Phone: Comment on above: CALCULATIONS OF MEGAN MATED GFR ARE PERFORMED USING THE 2020 CKD-EPI STUDY REFIT EQUATION WITHOUT THE RACE VARIABLE FOR THE IDMS-TRACEABLE CREATININE METHODS.https://jasn.asnjournals.org/content/early/ASN .2231918461 OT Evaluation v2-occupationa l therapyon 11-05-2022 OT Evaluation v2-occupational therapy Rehab: Info: Mode of Treatmentoccupational therapy Time IN07:41 Time OUT08:05 Total Treatment Minutes0 Patient Effortgood Symptoms Noted During/After Treatmentnone Patient Profile Reviewedyes Onset of Illness/Injury or Date of [id number] Reason for ReferralL2-3, L3-4 lami, L3-4 lateral lumbar interbody fusion, L 2-3, L3-4 posterior lateral fusion, thermal ablation L2-3, L3-4 Ángela 11/04/22 Referring PhysicianÁngela PT/OT eval and tx 11/04/22 General Observations of PatientPt supine in bed, agreeable to OT/PT evals. Pt has MICHAEL drain Pertinent History of Current Functional ProblemPt adm for elective L spine surgery PMH: dyslipidemia, HTN, arthritis, AAA, valvular disease, eliquis, L ankle surgery, PE, neck surgery, prostate CA Hearing Precautions/LimitationsWNL Precautions/Limitationsfal l precautions; spinal precautions; back brace on when OOB Ambulation Skills - Previous Level of Functionindependent owns cane and rollator, denies falls, drives Transfer Skills - Previous Level of Functionindependent ADL Skills - Previous Level of Functionindependent; indep with IADLS including med mgmt Living Arrangementslives with brother, 2 story, bed and bath on 1st floor. Ramp to enter Vision/Cognition: Affect/Mental Status (Cognitive)WNL Orientation Status (Cognition)oriented x 3 Able to Follow Commands (Receptive)follows one step commands; over 90% accuracy; easily distracted ROM: Upper Extremity: Range of MotionB UE AROM and strength WFL 4/5 throughout Mobility/Tone: Bed Mobility Assessment/Interventionssu p to sit CGA with log roll technique Transfer Assessment/Interventionssi t to stand CGA At EOB Gait/Stairs Locomotionpt ambulated 20' with CGA with ww ADL: BADL Assessment/Interventionfee addison indep grooming indep UB ADLs min A to don back brace LB ADLS mod A to don underwear and pants using recaher toileting CGA Motor: Sitting, Static (Balance)good balance Sitting, Dynamic (Balance)good balance Mtn-mq-Hdfcd (Balance)good balance Standing, Static (Balance)fair balance Standing, Dynamic (Balance)fair balance Sensory: Pre-Treatment Pain Rating3/10 Post-Treatment Pain Rating3/10 Comment, Pre/Post Treatment Painlow back pain Sensory General Assessmentno sensation deficits identified Impression: Criteria for Skilled Therapeutic Interventions Met (OT Eval)treatment indicated OT DiagnosisADL impairment Rehab Potential (OT Eval)good, to achieve stated therapy goals Therapy Frequency (OT Eval)2 times/wk Predicted Duration of Therapy [id number] days Functional Limitations in Following Categoriesself-care Planned Therapy Interventions (OT Eval)ADL retraining; balance training; transfer training Outcomes Tools: Putting on and taking off regular lower body clothinga lot Bathing (including washing, rinsing, drying)a lot Toileting, which includes using toilet, bedpan or urinala lot Putting on and taking off regular upper body clothinga little Taking care of personal grooming such as brushing teetha little Eating Mealsnone AM-PAC (OT) Total Score16 Short Term Goals: Functional Transfer: Established Functional Transfer: Goal Detailspt will transfer to bed ,chair, toilet with modified indep Functional Transfer: Time Frame for Goal2 wks Balance: Established Balance: Goal DetailsPt will demo fair + dyn std balance with ADLS Balance: Time Frame for Goal2 wks Upper Body Dressing: Established Upper Body Dressing: Edgar Level Goalstand-by assist Upper Body Dressing: Time Frame for Goal2 wks Lower Body Dressing: Established Lower Body Dressing: Edgar Level Goalminimum assist (75% patients effort) Lower Body Dressing: Time Frame for Goal2 wks Following Precautions: Established Following Precautions: Goal Detailspt will verbalize and adhere to spinal precautions indep Following Precautions: Time Frame for Goal2 wks Education: Learnerpatient Barriers to Learningno barrier Methoddemonstration; verbal Outcome Evaluation0=unable to meet; needs instruction Topicrehab plan of care DC Recommendations: Discharge Recommendationrecommend low intensity OT at dc to address impairments in ADLS and safety with functional transfers in home environment Electronic Signatures: Marianna Hayes (OT) (Signed 05-Nov-2022 09:56) Authored: Info, Vision/Cognition, ROM, Mobility/Tone, ADL, Motor, Sensory, Impression, Outcomes Tools, Short Term Goals, Education, DC Recommendations Last Updated: 05-Nov-2022 09:56 by Marianna Hayes (OT) Normal [facility] PT Evaluation v2-physical th erapyon 11-05-2022 PT Evaluation v2-physical therapy Rehab: Info: Mode of Treatmentphysical therapy Time IN07:45 Time OUT08:05 Patient in ... at end of sessionchair; alarm on Patient Effortgood Patient Profile Reviewedyes Onset of Illness/Injury or Date of [id number] Reason for ReferralSurgery 11.04.2022 L3-4 lateral interbody fusion, L2-3 and L3-4 laminectomy and posterior lateral fusion, L3-4 lateral instrumentation, thermal ablation of median nerve to L2-3 and L3-4 Referring PhysicianPT/OT 11.04.2022 Ángela Lumbosacral brace up Spinal precautions Patient/Family/Caregiver Comments/ObservationsServi bari provided by Alta Velez, SPT with direct supervision and guidance from Daniela Scott, PT General Observations of PatientPt supine in bed with head of bed elevated 50deg. NC in place, 3L O2. Agreeable to PT/OT Pertinent History of Current Functional ProblemRecent L2-4 surgery 11.04.2022 due to L2-3 and L3-4 stenosis and L3-4 spondylolisthesis PMH: hyperlipemia, HTN, OA, GERD, PE, AAA, MVR, PF, prostate cancer, left ankle surgery, PE lung surgery, neck surgery, spinal surgery, prostatectomy Hearing Precautions/LimitationsWFL Precautions/LimitationsLum bosacral brace up Spinal precautions Ambulation Skills - Previous Level of FunctionPer pt report independent with ambulation and transfers with no AD, ADLs, IADLS, and medication management. Pt owns a rollator and QC. No falls within the past [address] Living ArrangementsPer pt report lives with brother in a 2-story home and a ramp to enter. Bed and bath located on the 1st floor with a tub shower that has a shower chair and grab bars. During Treatment Patient Positionsitting During Treatment Heart Rate (beats/min)63 During Treatment SpO2 (%)93 % During Treatment Oxygen Deliveryroom air During Treatment CommentsAfter pt ambulated 15' CGA with FWW Vision/Cognition: Affect/Mental Status (Cognitive)WFL Able to Follow Commands (Receptive)Easily distracted, requires 1-step commands for safety ROM: Upper Extremity: Range of Motionleft upper extremity ROM WFL; right upper extremity ROM WFL Lower Extremity: Range of Motionleft lower extremity ROM WFL; right lower extremity ROM WFL MMT: Upper Extremity: Manual Muscle Testing (MMT)left upper extremity strength WFL; right upper extremity strength WFL Lower Extremity: Manual Muscle Testing (MMT)BLE knee extensor and DF 5/5, hip flexors not assessed secondary to recent spinal surgery Mobility/Tone: Bed Mobility Assessment/InterventionsLo g rolling: Pt educated on log rolling technique, demonstrated understanding. Verbal cues required to move LLE with rest of the body. Supine > sidelying > sitting edge of bed: CGA and use of upper bed rails. Pt required verbal cues for proper body mechanics Transfer Assessment/InterventionsSi tting edge of bed > stand: CGA with FWW. PT able to maintain balance while donning pants and brace. Stand > sitting on toilet: SBA with FWW. Verbal cues required to use grab bar by toilet during transition Sitting on toilet > stand: SBA with FWW. Verbal cues required to use grab bar by toilet during transition Stand > sitting in recliner: SBA with FWW. Pt able to reach back for armrests of recliner and control trunk during transition. Gait/Stairs LocomotionPt ambulated CGA with FWW 15'x2 from edge of bed, to toilet, to recliner. Observed decreased step length and step clearance. Easily distracted. Continuous verbal cues provided for gait dynamics, pt able to correct 25% of the time. Motor: Sitting, Static (Balance)good balance Sitting, Dynamic (Balance)fair balance Axu-zm-Vilct (Balance)fair + Standing, Static (Balance)fair + Standing, Dynamic (Balance)fair + Sensory: Pre-Treatment Pain Rating3/10 Post-Treatment Pain Rating3/10 Comment, Pre/Post Treatment PainPt reports sore in back and left side Sensory General Assessmentno sensation deficits identified Impression: Criteria for Skilled Therapeutic Interventions Met (PT Eval)yes; treatment indicated PT DiagnosisImpaired mobility, gait training Physical Therapy PrognosisPatient will benefit from physical therapy intervention to improve bed mobility, transfer dependence, and gait. System Pathology/Pathophysiology Noted (PT Eval)musculoskeletal Impairments Found (PT Eval)gait, locomotion, and balance Functional Limitations in Following Categoriesmobility/gait Rehab Potential (PT Eval)good, to achieve stated therapy goals Therapy Frequency (PT Eval)2 times/day Predicted Duration of Therapy [id number] days Outcomes Tools: Turning from your back to your side while in a flat bed without using bedrails a little Moving from lying on your back to sitting on the side of a flat bed without using bedrailsa little Moving to and from bed to chair (including a wheelchair)a little Standing up from a chair using your arms (e.g. wheelchair or bedside chair)a little To walk in hosp (more content not included)... Normal [facility] Rehab Note-physical therapyo n 11-05-2022 Rehab Note-physical therapy Rehab: Info: Disciplinephysical physical therapy professor Mode of Treatmentphysical therapy Time IN14:19 Time OUT14:44 Total Treatment Islisay14 Patient in ... at end of sessionbed, 3 railings up; alarm on; call light within reach Patient Effortexcellent Treatment Considerations/Commentscle ared by nursing to participate , pt's brother present , pt supine with TLSO brace in place upon arrival , instructed that he should remove the brae when in bed , needs it for gait , may have it in place or off when seated Patient/Family/Caregiver Comments/Observationsagree able to participate , states that he denies any home going concerns and that his brother can help as needed , brother also denies any concerns Mobility/Tone: Comment, Bed Mobilitytransfers supine <--> sit with CGA and bed flat using log rolling technique with vc for technique Comment, Transferstransfers sit <--> stand with Min A improving to CGA with vc for hand placement Comment, Gait/Stairs Trainingpt ambulating 65 ft with WW and slow slightly uneven gait with CGA, pt needs vc for walker placement and to stay inside WW Sensory: Pain Locationrates pain at surgical sit 4/10 at rest , increasing to 5-6/10 with movement Outcomes Tools: Turning from your back to your side while in a flat bed without using bedrails a little Moving from lying on your back to sitting on the side of a flat bed without using bedrailsa little Moving to and from bed to chair (including a wheelchair)a little Standing up from a chair using your arms (e.g. wheelchair or bedside chair)a little To walk in hospital rooma little Climbing 3-5 steps with railinga jessica AM-PAC (PT) Total Score18 Short Term Goals: Bed Mobility: Date [id number] Bed Mobility: Edgar Level Goalmodified independent; supine <> sidelying <> sitting Transfer: Established [id number] Transfer: Transfer Type Auknyqr-jd-dfzcf/chair-to- bed; dle-cq-qjfey/rnddt-js-qrq Transfer: Edgar Level Goalmodified independent Transfer: Assistive Device Goalrolling walker Gait: Established [id number] Gait: Edgar Level Goalmodified independent Gait: Assistive Device Goalrolling walker Gait: Distance Sipv821' Education: Learnerpatient; family member Methodverbal Outcome Evaluation1=partially meets; needs review Education - Topicpt able to recall spinal precautions , Able to don and doff TLSO brace Outcome Summary: Progress: Physical Therapyprogress toward functional goals as expected Electronic Signatures: Kelsea Cueto (WASHER MACHINE) (Signed 05-Nov-2022 16:34) Authored: Info, Mobility/Tone, Sensory, Outcomes Tools, Short Term Goals, Education, Outcome Summary Daniela Scott (PT) (Signed 06-Nov-2022 03:32) Co-Signer: Info, Mobility/Tone, Sensory, Outcomes Tools, Short Term Goals, Education, Outcome Summary Last Updated: 06-Nov-2022 03:32 by Daniela Scott (PT) Normal [facility] Admission Risk Screen - Adul ton 11-04-2022 Admission Risk Screen - Adult Allergies: Intolerances: nitroglycerin: Unknown Patient Verification: New W ID Band Applied in my Departmentno Type of ID Patient is WearingW wristband, but not applied here Patient Transferred from Other Facility ([facility], [facility],etc)no Patient Identity Verified Bypatient ID Band FULL Name, include Middle, spelling matches patient's ID used for verificationyes ID Band Matches Patient ID used for Verficationyes ID Band MRN Matches EMR MRNyes Visitor Restriction: Coronavirus Visitor Restriction: Reasonable restrictions to in-person visitors will be observed due to current coronavirus pandemic. Travel History: COVID-19 Screening Completedno exposure or symptoms Travel or Exposure Past 30 DaysNO travel to International locations in the past 30 days Ebola AlertFor Ebola-like Symptoms: Isolate Patient and Notify Provider/Artist Consultant For Contact: Notify Provider/Artist Consultant Advance Directive: Advance Directive/DNRyes Advance Directive typeLiving Will, Durable Power of Business Integration Manager for Healthcare Living Will AvailabilityLiving Will not available now Living Will [id number] Durable Power of Business Integration Manager AvailabilityDPOA not available now Durable Power of Business Integration Manager [id number] Durable Power of Business Integration Manager contact (name and number)Dana [phone] [place] Fall Screen: History of falling (immediate or previous)yes (25) Secondary Diagnosisyes (15) Intravenous Therapy/ Heparin/Saline Lockyes (20) Gait/Transferringweak (10) Ambulatory Aidscrutches/walker/cane (15) Mental Statusoriented to own ability (0) Score: Low risk (<25). Moderate risk (25-44). High risk (>44).85 [place] InterventionsHIGH INTERVENTIONS *Low and Moderate Interventions Plus: * supervised toileting at all times Family Violence Screen: Are you or have you been threatened or abused physically, emotionally, or sexually by anyoneno Has anyone ever threatened to hurt your family or your petsno Does anyone try to keep you from having/contacting other friends or doing things outside your homeno Do you feel UNSAFE going back to the place where you are livingno Do you feel anyone has exploited or taken advantage of you financially or of your personal propertyno Clinical assessment: Are there any apparent signs of injuries/behaviors that could be related to abuse/neglectno Social Service Consult for abuse/neglect needed this visitno Functional Screen: Functional Screen: In the recent/past 2-4 weeks, patient or family have noticedno issues that require a speech/language consult at this time AM-PAC- Basic Mobility/Daily Activity: Patient baseline bedboundno Turning from your back to your side while in a flat bed without using bedrailsa little Moving from lying on your back to sitting on the side of a flat bed without using bedrailsa little Moving to and from bed to chair (including a wheelchair)a lot Standing up from a chair using your arms (e.g. wheelchair or bedside chair)a lot To walk in hospital rooma lot Climbing 3-5 steps with railinga lot Basic Mobility - Total Score14 Learning Assessment (Patient): Patient is Able to be Assessed for Learningyes Factors Influencing Readiness to Learnlethargy Factors that Impact Ability to Learnnone Devices/Methods Used to Communicateglasses Learning Preferenceswritten material; verbal instruction; skill demonstration Cultural Considerationsnone Developmental Considerationsnone Methodist Considerationsnone Learning Assessment (Other Learner): Other learner availableno Depression Screen: During the past month, have you often been bothered by feeling down, depressed or hopelessno During the past month, have you often had little interest or pleasure in doing thingsno Have you had any thoughts of harming anyone elseno [place] Suicide: Risk Screen Not Applicable/Able to Answerable to be screened In the Past Month: Have you wished you were or could go to sleep and not wake upno In the Past Month: Have you had any actual thoughts of killing yourselfno Lifetime: Have you ever done, started to do, or prepared to do anything to end your lifeno [place] Suicide Risknegative Adult Nutrition Screen: Have you recently lost weight without tryingno Have you been eating poorly because of a decreased appetiteno Malnutrition Screening Tool Score0 Malnutrition Screening Tool RiskMST = 0 or 1 Not at risk. Eating well with little or no weight loss Nutrition Consult needed this visitno Can Patient Participate in Room Serviceyes Patient requires Paper Dishes/Plastic Utensilsno Pain Screen: Pain Scalenumerical 0-10 Pain Scale Educationteaching provided Current Pain Level6 = Moderate Acceptable Pain Level4 = Moderate Expression of Pain (nonverbal)none Chronic Painyes Chronic Back pain locationlumbar spine Description of Pain (frequency/quality)frequen t; (more content not included)... Normal [facility] Consult-General Internal Med sotero 11-04-2022 Consult-General Internal Medicine Service: Service: General Internal Medicine Consult: Consult requested by (Attending Name): Curtis Meléndez Reason: Medical managment, post op- HTN History of Present Illness: Admission Reason: Lumbar stenosis and spondylolisthesis HPI: ERIK MORALES is a 67 year old Male presents to the Orthopedics team with increase pain and decreased ability to perform ADLS due to lumbar stenosis. After failed conservative treatment, patient underwent surgery with no immediate post op complications, reports minimal pain to site described as dull in nature, mild in severity, responding well to pain meds. No other complaints. Hospitalist services were consulted for management of the patient's medical conditions post/op. Patient examined and seen, resting comfortably. Denies chest pain, shortness of breath, abdominal pain, dizziness, fever or chills. Currently patient vital signs are stable. Plan of care was discussed with patient, verbalized understanding through teach back method. Hospitalist team will continue to follow until discharge. Hospitalist team consulted for post op management of HTN. Past medical history: mitral valve regurgitation, HLD, AAA, pulmonary fibrosis, HTN, prostate CA, pulmonary embolism, left ankle sx, PE lung sx, neck sx, prostatectomy, spinal sx, tonsillecomty Social history: former smoker, denies drug or alcohol use Family history: reviewed, non contributory Review of systems: 10 system were reviewed and were negative except what was mentioned in history of present illness Intolerances: nitroglycerin: Unknown Objective: Objective Information: T PRBPMAPSpO2 [id number]/4802170% Date/Time11/04 15: 15: 15: 15: 15: 15:32 Range(36.1C - 36.1C ) (62 - 62 ) (20 - 20 ) (144 - 144 )/ (70 - 70 ) (101 - 101 ) (97% - 97% ) Physical Exam Narrative: Physical Exam: Constitutional: awake/alert/oriented x3, cooperative Eyes: PERRL, clear sclera ENMT: mucous membranes moist, no apparent injury, no lesions seen Head/Neck: Neck supple, no apparent injury, Respiratory/Thorax: Patent airways, normal breath sounds Cardiovascular: Regular, rate and rhythm, no murmurs, 2+ equal pulses of the extremities, normal S 1and S 2 Gastrointestinal: Nondistended, soft, non-tender, Musculoskeletal: mild decrease range of motion to lumbar spine s/p sx intervention, good capillary refills bilaterally, +2 pulses, good sensation Extremities: normal extremities, incision covered CDI Skin: warm, dry, intact Neurological: alert/oriented x 3, speech clear Psychiatric: appropriate mood and behavior Medications: Medications: ANTI-INFECTIVES: 1. ceFAZolin 2 gram/ D5W 100 mL Premix IVPB: 100 mL IntraVenous Piggyback Every 6 Hours 2. Vancomycin IV Piggy Back: 1 gram(s) IntraVenous Piggyback Every 12 Hours CARDIOVASCULAR AGENTS: 1. Metoprolol Tartrate: 25 mg Oral 2 Times a Day CENTRAL NERVOUS SYSTEM AGENTS: 1. Acetaminophen: 650 mg Oral Every 6 Hours 2. Celecoxib (CELEBREX): 200 mg Oral 2 Times a Day With Meals 3. Morphine Injectable: 2 mg IntraVenous Push Every 2 Hours PRN 4. oxyCODONE Immediate Release: 5 mg Oral Every 4 Hours PRN 5. oxyCODONE Immediate Release: 10 mg Oral Every 4 Hours PRN 6. Ondansetron Injectable: 4 mg IntraVenous Push Every 3 Hours PRN 7. diazePAM (VALIUM): 5 mg Oral Every 6 Hours PRN GASTROINTESTINAL AGENTS: 1. Bisacodyl Enteric Coated: 10 mg Oral Daily PRN 2. Docusate: 100 mg Oral 2 Times a Day 3. Polyethylene Glycol: 17 gram(s) Oral 2 Times a Day 4. Pantoprazole: 40 mg Oral Daily IMMUNOLOGIC AGENTS: 1. Influenza Virus (Inactive) HIGH DOSE Adult Vaccine: 0.7 mL IntraMuscular Once NUTRITIONAL PRODUCTS: 1. Lactated Ringers Infusion: 1000 mL IntraVenous 2. Lactated Ringers Infusion: 1000 mL IntraVenous 3. Multivitamin with Minerals: 1 tablet(s) Oral Daily PSYCHOTHERAPEUTIC AGENTS: 1. Nortriptyline: 25 mg Oral Daily RESPIRATORY AGENTS: 1. diphenhydrAMINE: 25 mg Oral Every 6 Hours PRN TOPICAL AGENTS: 1. Sore Throat Lozenge: 1 lozenge(s) Oral Every 4 Hours PRN Currently Suspended Medications ------ 1. Lisinopril: 20 mg Oral Daily 2. Furosemide: 20 mg Oral Daily Assessment: Hospitalist team consulted for post op management of HTN. # Lumbar Stenosis, spondylolisthesis Back Pain Orthopedic Team Primary Pain and DVT Prophylaxis per Ortho team PT/OT treatment evaluation Fall precautions Incentive spirometer education and demonstration addressed Discharge planning CBC BMP in a.m. Vital signs every 8 # HTN / HLD / Mitral valve regurgitation Hold Lisinopril Continue Lopressor and statin Add Telemetry for arrythnmia monitoring Hold Lasix Hemodynamically stable # GERD Continue PPI Stay upright for 30minutes Take pain medications with food # Hx of PEs Eliquis to b (more content not included)... Normal [facility] Discharge Planning Rjug2hd 0 11-04-2022 Discharge Planning Note2 Discharge Planning: Planned Dispositionhome Discharge Destinationhome [place] Choice Explainedyes Anticipated Discharge [id number] Discharge Planning 11/04/22 @ 1508 hours: Received social work consult for dc planning. Reviewed chart, no social work needs identified. TCC to follow for assessment and discharge planning. TCC will reconsult Social Work if any social work needs should arise. AME Escobedo 11/05/22 1142 TC NOTE: Met with pt , introduced self and explained role. Verified pt information, including visit address and contact numbers. Pt POD 1 Lami and fusions of Lumbar 2-3 and 3-[address] Meléndez. Pt lives with his brother in a 2 story home with a ramp to enter. Bed/bath is on the first floor. 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 Drives. Pt plans to dc home. CT team will continue to monitor care progression and potential dc needs. Darya Jay RN TCC 11/06/22 0900 TCC UPDATE: [facility] score is PT (18) OT (16), PT recommends home no further PT needs. Per rounding report with David Cunningham CNP and team, pt is s/p Lami fusion and dura tear, pt has lumbosacral brace, will DC marian no needs, ADOD today vs tomorrow. CT team will continue monitoring case for progression and potential DC needs. Sultana Jones RN TCC. Assessment: Discharge Planning Assessment [id number] Primary Contact Name and NumberDale (brother) [phone] Lives Withsibling(s) Living Arrangementsmargie PCPHoy [facility]ated [facility] Anticipated at Transitionnone InsuranceDevoted Anticipated Changes Related to Illnessnone Equipment Needed After Dischargenone Anticipated Discharge Facility/Level of Care Needs.Home Discharge Documentation: Code StatusCode Status order at time of discharge: Full Code Electronic Signatures: Darya Jay (RN) (Signed 05-Nov-2022 15:16) Authored: Discharge Planning, Assessment Tanya Quick (ARABELLA) (Signed 04-Nov-2022 15:08) Authored: Discharge Planning, Assessment Sultana Jones (CLIN COOR) (Signed 06-Nov-2022 15:26) Authored: Discharge Planning, Discharge Documentation Last Updated: 06-Nov-2022 15:26 by Sultana Jones (CLIN COOR) [facility] Order Reconciliationon 11-04 Order Reconciliation Page 1 Admission Reconciliation Document Reconciliation Type: Admission requested on behalf of Heidy Escobar (Advanced Practice Nurse) done by Heidy Escobar ([facility]) Admission - Partial Reconciliation: 04-Nov-2022 15:50 by: Heidy Escobar ([facility]) Admission - Reconciliation: 04-Nov-2022 15:50 by: Heidy Escobar ([facility]) Home MedicationsEnteredLast Dose TakenReconciled with current Order Reconciliation Comment/ Additional Information atorvastatin 40 mg oral tablet 1 tab(s) orally once a day (at bedtime) [id number] PM Atorvastatin Tablet (LIPITOR)DOSE = 40 mg Oral At Bedtimeatorvastatin 40 mg oral tablet continued as the inpatient order Atorvastatin baclofen 10 mg oral tablet 1 tab(s) orally once a [id number] PM Reviewed and Held Eliquis 5 mg oral tablet 1 tab(s) orally 2 times a day---AWARE TO HOLD PRIOR TO PROCEDURE Reviewed and Held furosemide 20 mg oral tablet 1 tab(s) orally once a [id number] AM Furosemide Tablet (LASIX)DOSE = 20 mg Oral Dailyfurosemide 20 mg oral tablet is continued and suspended as Furosemide lisinopril 20 mg oral tablet 1 tab(s) orally once a [id number] PM Lisinopril Tablet (PRINIVIL, ZESTRIL)DOSE = 20 mg Oral Dailylisinopril 20 mg oral tablet is continued and suspended as Lisinopril metoprolol tartrate 25 mg oral tablet 1 tab(s) orally 2 times a day---AWARE TO TAKE MORNING OF PROCEDUE WITH A SIP OF [id number]-456 3 02:30 AM Reviewed and Held Multiple Vitamins oral tablet 1 tab(s) orally once a [id number]-Nov-2022 AM Multivitamin with Minerals TabletDOSE = 1 tablet(s) Oral Daily Multiple Vitamins oral tablet continued as the inpatient order Multivitamin with Minerals nortriptyline 25 mg oral capsule orally once a [id number] PM Nortriptyline Capsule (PAMELOR)DOSE = 25 mg Oral Dailynortriptyline 25 mg oral capsule continued as the inpatient order Nortriptyline omeprazole 40 mg oral delayed release capsule 1 cap(s) orally once a day AM Pantoprazole Enteric Coated Tablet (PROTONIX)DOSE = 40 mg Oral Dailyomeprazole 40 mg oral delayed release capsule continued as the inpatient order Pantoprazole oxyBUTYnin 10 mg/24 hr oral tablet, extended release 1 tab(s) orally once a day Reviewed and Held oxycodone-acetaminophen 5 mg-325 mg oral tablet 1 tab(s) orally 2 times a day, As [id number]-05 23 Reviewed and Held Potassium Chloride (Bhw-Zoyw-Rxq 10) 10 mEq oral tablet, extended release 1 tab(s) orally once a [id number] PM Reviewed and Held Additional Current Orders Acetaminophen Tablet (TYLENOL)DOSE = 650 mg Oral Every 6 Hours Bisacodyl Enteric Coated Enteric Coated Tablet (DULCOLAX)DOSE = 10 mg Oral Daily, PRN ConstipationClinician Notes: If NO result from Senokot. Do NOT use with Senokot. ceFAZolin 2 gram/ D5W 100 mL Premix IVPB (ANCEF)Every 6 HoursRecommended Infusion Time: 30 minute(s)Stop After 3 Doses Celecoxib (CELEBREX) CapsuleDOSE = 200 mg Oral 2 Times a Day With Meals diazePAM (VALIUM) TabletDOSE = 5 mg Oral Every 6 Hours, PRN Muscle Spasms diphenhydrAMINE Capsule (BENADRYL)DOSE = 25 mg Oral Every 6 Hours, PRN Itching Docusate Capsule (COLACE)DOSE = 100 mg Oral 2 Times a Day Influenza Virus (Inactive) HIGH DOSE Adult Vaccine (FLUZONE HIGH DOSE)DOSE = 0.7 mL IntraMuscular OnceClinician Notes: :: Must be given prior to discharge. Order entered from Admission Screen. Lactated Ringers Infusion IV Bag Volume = 1,000 mL Run at: 30 mL/hr IntraVenous Lactated Ringers Infusion IV Bag Volume = 1,000 mL Run at: 50 mL/hr IntraVenous Stop After 24 Hours Metoprolol Tartrate Tablet (LOPRESSOR)DOSE = 25 mg Oral 2 Times a Day Morphine Injectable DOSE = 2 mg IntraVenous Push Every 2 Hours, PRN Breakthrough painClinician Notes: If oral and IV narcotics ordered, use oral first and only use IV if oral is ineffective or cannot take oral. Do NOT give oral and IV within one hour of each other unless specificaly ordered. Ondansetron Injectable (ZOFRAN)DOSE = 4 mg IntraVenous Push Every 3 Hours, PRN Nausea and/or Vomiting oxyCODONE Immediate Release Tablet (OXYIR, ROXICODONE)DOSE = 10 mg Oral Every 4 Hours, PRN Pain - Mod (4-6) oxyCODONE Immediate Release Tablet (OXYIR, ROXICODONE)DOSE = 5 mg Oral Every 4 Hours, PRN Pain - Mild (1-3) Polyethylene Glycol Powder for Reconstitution (MIRALAX)DOSE = 17 gram(s) Oral 2 Times a Day Sore Throat Lozenge LozengeDOSE = 1 lozenge(s) Oral Every 4 Hours, PRN Sore ThroatCa lozenge(s)/DOSE x 1 = 1 lozenge(s)/Dose (Daily Total is 6 lozenge(s)) Vancomycin IV Piggy Back in Dextrose 5% in Water 250 mLDOSE = 1 gram(s) Every 12 HoursRecommended Infusion Time: 60 minute(s) Normal [facility] Radiologyon 11-04-2022 Fluoroscopy duration Please click on the link to view the study images [facility]: Established Visit (Orthopaed ic Surgery)on 10-22-2022 Established Visit (Orthopaedic Surgery) Provider Impressions Assessment: A 67-year-old gentleman here for preop visit. He is scheduled to undergo an L3-4 lateral interbody fusion with a lateral plate and then a flip to an open L2-3, L3-4 midline laminectomy with posterolateral fusion. Pre and postoperative information and instructions were given to the patient. The brace was fitted today and brace instructions were given. Risks and benefits were discussed on September 19, 2022, with Dr. Meléndez. Postoperative bending, lifting, and twisting restrictions were discussed. All questions were answered. Treatment Plan: The patient will stop his Eliquis according to his physician four days before the surgery and for four days after the surgery. We will see him back in the office two weeks after the surgery for his postop visit. If he is doing well, we will not need x-rays at that time. Chief Complaint f/u pre op sx 11/04/22, lumbar History of Present IllnessGarry is a 67-year-old gentleman here for preop visit. He is scheduled to undergo an L3-4 lateral fusion with an L3-4 lateral plate and then a flip for an L2-3 and L3-4 midline laminectomy with posterolateral fusion. Pre and postoperative information and instructions were given to the patient. The risks and benefits were discussed with Dr. Meléndez September 19, 2022. The brace was fitted today and brace instructions were given. Lifting, twisting, and bending restrictions were discussed. Postoperative care was discussed. All questions were answered. Patient is ready to proceed with surgery. He will stop his Eliquis according to his doctor four days before the surgery and for four days after. He denies any fever, chills, nausea, vomiting, or night sweats. He has no bowel or bladder complaints. Active Problems Problems AAA (abdominal aortic aneurysm) (441.4) (I71.40) Abnormal EKG (794.31) (R94.31) Back pain (724.5) (M54.9) Class 1 obesity with body mass index (BMI) of 30.0 to 30.9 in adult (278.00,V85.30) (E66.9,Z68.30) Dyspnea (786.09) (R06.00) Essential hypertension (401.9) (I10) Former smoker (V15.82) (Z87.891) High risk medication use (V58.69) (Z79.899) Hyperlipidemia (272.4) (E78.5) Lung crackles (786.7) (R09.89) Mitral regurgitation (424.0) (I34.0) mild/moderate Other intervertebral disc degeneration, lumbar region (722.52) (M51.36) Pulmonary embolism (415.19) (I26.99) Pulmonary fibrosis (515) (J84.10) Sinus tachycardia (427.89) (R00.0) Past Medical History Problems History of BMI 31.0-31.9,adult (V85.31) (Z68.31) Resolved Date: 06 Feb 2021 History of Class 1 obesity without serious comorbidity with body mass index (BMI) of 31.0 to 31.9 in adult (278.00,V85.31) (E66.9,Z68.31) Resolved Date: 06 Feb 2021 History of chronic obstructive lung disease (V12.69) (Z87.09) Resolved Date: 06 Feb 2021 History of sleep apnea (V13.89) (Z86.69) Resolved Date: 06 Feb 2021 Surgical History Problems History of Ankle surgery History of Colonoscopy Feb 2017 History of Lung surgery History of Neck surgery History of Prostate surgery History of Prostatectomy History of Spinal surgery History of Tonsillectomy with adenoidectomy Family History Mother Family history of cardiac disorder (V17.49) (Z82.49) Family history of malignant neoplasm (V16.9) (Z80.9) Father Family history of angina pectoris (V17.49) (Z82.49) Family history of hypertension (V17.49) (Z82.49) Family history of malignant neoplasm (V16.9) (Z80.9) Brother Family history of malignant neoplasm (V16.9) (Z80.9) Social History Problems Caffeine use (V49.89) (Z78.9) Former smoker (V15.82) (Z87.891) No alcohol use No illicit drug use Allergies Medication nitroglycerin Adverse Reaction; Hypotension;; Recorded By: Paulette Whitley; 01/23/2021 1:48:33 PM Current Meds Medication NameInstruction Albuterol Sulfate HFA 108 (90 Base) MCG/ACT Inhalation Aerosol Solutionas directed Eliquis 5 MG Oral TabletTake 1 tablet twice daily Furosemide 20 MG Oral TabletTAKE ONE TABLET BY MOUTH DAILY AT 9AM Lipitor 40 MG Oral TabletTAKE 1 TABLET AT BEDTIME. Lisinopril 20 MG Oral TabletTAKE 1 TABLET DAILY. Metoprolol Tartrate 25 MG Oral TabletTake 1 tablet twice a day Nortriptyline HCl - 25 MG Oral CapsuleTAKE 1 CAPSULE AT BEDTIME. Omeprazole 40 MG Oral Capsule Delayed ReleaseTAKE 1 CAPSULE DAILY. Oxybutynin Chloride ER 10 MG Oral Tablet Extended Release 24 Hour1 TAB DAILY oxyCODONE-Acetaminophen 5-325 MG Oral TabletTAKE 1 TABLET Twice daily PRN Potassium Chloride ER 10 MEQ Oral Tablet Extended ReleaseTAKE 1 TABLET BY MOUTH EVERY DAY Temazepam 30 MG Oral CapsuleTAKE 1 CAPSULE AT BEDTIME. tiZANidine HCl - 4 MG Oral TabletTAKE 1 TABLET AT BEDTIME. Physical Exam Erik is a 67-year-old gentleman here for preop visit. He is scheduled to undergo an L3-4 lateral fusion with an L3-4 lateral plate and then a flip for an L2-3 and L3-4 midline laminectomy with posterolateral fusion. Pre and postoperative information and instructions were (more content not included)... Normal [employer] APTTon 10-21-2022 aPTT Coag (Bld) [Time] 34 s Normal 27 - 38 [facility] Comment on above: Result Comment: Note new reference range as of 08/13/2022 at 10:00am. Performed By: #### A PTT #### [address] [id number] Activated Partial Thrombopla stin Timeon 10-21-2022 aPTT Coag (PPP) [Time] 34 s 27 - 38 [facility] Work Phone: Comment on above: Note new reference r jana as of 08/13/2022 at 10:00am. CBC AND DIFFERENTIALon 10-21 % AUTOMATED IMMATURE GRAN 0.3 % Normal 0.0 - 0.9 [facility] Comment on above: Result Comment: Jovanna ture Granulocyte Count (IG) includes promyelocytes, myelocytes and metamyelocytes but does not include bands. Percent differential counts (%) should be interpreted in the context of the absolute cell counts (cells/L). Performed By: #### C BCDF #### [address] [id number] Basophils (Bld) [#/Vol] 0.11 10*3/uL High 0.00 - 0.10 [facility] Comment on above: Performed By: #### C BCDF #### [address] [id number] Basophils/100 WBC (Bld) 1.2 % Normal 0.0 - 2.0 [facility] Comment on above: Performed By: #### C BCDF #### [address] [id number] Eosinophils (Bld) [#/Vol] 0.21 10*3/uL Normal 0.00 - 0.70 [facility] Comment on above: Performed By: #### C BCDF #### [address] [id number] Eosinophils/100 WBC (Bld) 2.2 % Normal 0.0 - 6.0 [facility] Comment on above: Performed By: #### C BCDF #### [address] [id number] Erythrocyte distribution width (RBC) [Ratio] 13.5 % Normal 11.5 - 14.5 [facility] Comment on above: Performed By: #### C BCDF #### [address] [id number] Hematocrit (Bld) [Volume fraction] 44.9 % Normal 41.0 - 52.0 [facility] Comment on above: Performed By: #### C BCDF #### [address] [id number] Hemoglobin (Bld) [Mass/Vol] 14.8 g/dL Normal 13.5 - 17.5 [facility] Comment on above: Performed By: #### C BCDF #### [address] [id number] Lymphocytes (Bld) [#/Vol] 1.28 10*3/uL Normal 1.20 - 4.80 [facility] Comment on above: Performed By: #### C BCDF #### [address] [id number] Lymphocytes/100 WBC (Bld) 13.6 % Normal 13.0 - 44.0 [facility] Comment on above: Performed By: #### C BCDF #### [address] [id number] MCHC (RBC) [Mass/Vol] 33.0 g/dL Normal 32.0 - 36.0 [facility] Comment on above: Performed By: #### C BCDF #### [address] [id number] MCV (RBC) [Entitic vol] 94 fL Normal 80 - 100 [facility] Comment on above: Performed By: #### C BCDF #### [address] [id number] Monocytes (Bld) [#/Vol] 0.72 10*3/uL Normal 0.10 - 1.00 [facility] Comment on above: Performed By: #### C BCDF #### [address] [id number] Monocytes/100 WBC (Bld) 7.7 % Normal 2.0 - 10.0 [facility] Comment on above: Performed By: #### C BCDF #### [address] [id number] Neutrophils (Bld) [#/Vol] 7.04 10*3/uL Normal 1.20 - 7.70 [facility] Comment on above: Performed By: #### C BCDF #### [address] [id number] Neutrophils/100 WBC (Bld) 75.0 % Normal 40.0 - 80.0 [facility] Comment on above: Performed By: #### C BCDF #### [address] [id number] Platelets (Bld) [#/Vol] 251 10*3/uL Normal 150 - 450 [facility] Comment on above: Performed By: #### C BCDF #### [address] [id number] RBC 4.78 x10E12/L Normal 4.50 - 5.90 [facility] Comment on above: Performed By: #### C BCDF #### [address] [id number] WBC (Bld) [#/Vol] 9.4 10*3/uL Normal 4.4 - 11.3 [facility] Comment on above: Performed By: #### C BCDF #### [address] [id number] COMPREHENSIVE PANELon 2022 Albumin [Mass/Vol] 4.0 g/dL Normal 3.4 - 5.0 [facility] Comment on above: Performed By: #### C BC #### [address] [id number] ALP [Catalytic activity/Vol] 127 U/L Normal 33 - 136 [facility] Comment on above: Performed By: #### C BC #### [address] [id number] ALT [Catalytic activity/Vol] 16 U/L Normal 10 - 52 [facility] Comment on above: Result Comment: Becca ents treated with Sulfasalazine may generate falsely decreased results for ALT. Performed By: #### C BC #### [address] [id number] Anion gap [Moles/Vol] 12 mmol/L Normal 10 - 20 [facility] Comment on above: Performed By: #### C BC #### [address] [id number] AST [Catalytic activity/Vol] 21 U/L Normal 9 - 39 [facility] Comment on above: Performed By: #### C BC #### [address] [id number] Bilirubin [Mass/Vol] 0.6 mg/dL Normal 0.0 - 1.2 [facility] Comment on above: Performed By: #### C BC #### [address] [id number] Calcium [Mass/Vol] 9.3 mg/dL Normal 8.6 - 10.3 [facility] Comment on above: Performed By: #### C BC #### [address] [id number] Chloride [Moles/Vol] 103 mmol/L Normal 98 - 107 [facility] Comment on above: Performed By: #### C BC #### [address] [id number] Creatinine [Mass/Vol] 1.29 mg/dL Normal 0.50 - 1.30 [facility] Comment on above: Performed By: #### C BC #### [address] [id number] GFR/1.73 sq M.predicted among non-blacks MDRD (S/P/Bld) [Vol rate/Area] 61 mL/min/{1.73_m2} Normal >90 [facility] Comment on above: Result Comment: CALC ULATIONS OF ESTIMATED GFR ARE PERFORMED USING THE 2020 CKD-EPI STUDY REFIT EQUATION WITHOUT THE RACE VARIABLE FOR THE IDMS-TRACEABLE CREATININE METHODS. https://jasn.asnjournals.org/content//ASN.3281940 988 Performed By: #### C BC #### [address] [id number] Glucose [Mass/Vol] 103 mg/dL High 74 - 99 [facility] Comment on above: Performed By: #### C BC #### [address] [id number] HCO3 (Bld) [Moles/Vol] 27 mmol/L Normal 21 - 32 [facility] Comment on above: Performed By: #### C BC #### [address] [id number] Potassium [Moles/Vol] 3.8 mmol/L Normal 3.5 - 5.3 [facility] Comment on above: Performed By: #### C BC #### [address] [id number] Protein [Mass/Vol] 7.4 g/dL Normal 6.4 - 8.2 [facility] Comment on above: Performed By: #### C BC #### [address] [id number] Sodium [Moles/Vol] 138 mmol/L Normal 136 - 145 [facility] Comment on above: Performed By: #### C BC #### [address] [id number] Urea nitrogen [Mass/Vol] 11 mg/dL Normal 6 - 23 [facility] Comment on above: Performed By: #### C BC #### [address] [id number] Complete Blood Count + Diffe rentialon 10-21-2022 Basophils/100 WBC (Bld) 1.2 % 0.0 - 2.0 [facility] Work Phone: Erythrocyte distribution width (RBC) [Ratio] 13.5 % See Below [facility] Work Phone: Comment on above: Reference Range: 11. 5 - 14.5 Hematocrit (Bld) [Volume fraction] 44.9 % See Below [facility] Work Phone: Comment on above: Reference Range: 41. 0 - 52.0 Hemoglobin (Bld) [Mass/Vol] 14.8 g/dL See Below [facility] [place] Work Phone: Comment on above: Reference Range: 13. 5 - 17.5 Lymphocytes/100 WBC (Bld) 13.6 % See Below [facility] [place] Work Phone: [phone] Comment on above: Reference Range: 13. 0 - 44.0 MCHC (RBC) [Mass/Vol] 33.0 g/dL See Below [facility] [place] Work Phone: [phone] Comment on above: Reference Range: 32. 0 - 36.0 MCV (RBC) [Entitic vol] 94 fL 80 - 100 [facility] [place] Work Phone: [phone] Monocytes/100 WBC (Bld) 7.7 % 2.0 - 10.0 [facility] [place] Work Phone: [phone] Neutrophils/100 WBC (Bld) 75.0 % See Below [facility] [place] Work Phone: [phone] Comment on above: Reference Range: 40. 0 - 80.0 Platelets (Bld) [#/Vol] 251 10*3/uL 150 - 450 [facility] [place] Work Phone: [phone] RBC (Bld) [#/Vol] 4.78 {x10E12/L} See Below [facility] [place] Work Phone: [phone] Comment on above: Reference Range: 4.5 0 - 5.90 WBC (Bld) [#/Vol] 9.4 10*3/uL 4.4 - 11.3 [facility] [place] Work Phone: [phone] Complete Blood Count + Differential 0.11 {x10E9/L} above high threshold See Below [facility] [place] Work Phone: [phone] Comment on above: Reference Range: 0.0 0 - 0.10 Complete Blood Count + Differential 0.21 {x10E9/L} See Below [facility] Work Phone: Comment on above: Reference Range: 0.0 0 - 0.70 Complete Blood Count + Differential 0.72 {x10E9/L} See Below [facility] Work Phone: Comment on above: Reference Range: 0.1 0 - 1.00 Complete Blood Count + Differential 1.28 {x10E9/L} See Below [facility] Work Phone: Comment on above: Reference Range: 1.2 0 - 4.80 Complete Blood Count + Differential 7.04 {x10E9/L} See Below [facility] Work Phone: Comment on above: Reference Range: 1.2 0 - 7.70 Complete Blood Count + Differential 2.2 % 0.0 - 6.0 [facility] Work Phone: Complete Blood Count + Differential 0.3 % 0.0 - 0.9 [facility] Work Phone: Comment on above: Immature Granulocyte Count (IG) includes promyelocytes, myelocytes and metamyelocytes but does not include bands. Percent differential counts (%) should be interpreted in the context of the absolute cell counts (cells/L). Electrocardiogram 12 Leadon 10-21-2022 Electrocardiogram 12 Lead Ventricular Rate 64 Atrial Rate 64 P-R Interval 172 QRS Duration 84 Q-T Interval 398 QTC Calculation(Bazett) 410 P Rogers 22 R Rogers 17 T Rogers 32 QRS Count 11 Q Onset 225 P Onset 139 P Offset 198 T Offset 424 QTC Fredericia 406 Diagnosis Class Borderline Normal Diagnosis Normal sinus rhythm Early transition Otherwise normal ECG No previous ECGs available Confirmed by Curtis Trejo ([id number]) on 10/24/2022 9:27:12 AM Normal [facility] - Chemistry and C hemistry - challengeon 10-21-2022 Albumin BCP dye [Mass/Vol] 4.0 g/dL 3.4 - 5.0 [facility] Work Phone: [phone] ALP [Catalytic activity/Vol] 127 U/L 33 - 136 -[facility] Work Phone: [phone] ALT With P-5'-P [Catalytic activity/Vol] 16 U/L 10 - 52 -[facility] Work Phone: [phone] Comment on above: Patients treated wit h Sulfasalazine may generate falsely decreased results for ALT. Anion gap [Moles/Vol] 12 mmol/L 10 - 20 -[facility] Work Phone: [phone] AST With P-5'-P [Catalytic activity/Vol] 21 U/L 9 - 39 -[facility] Work Phone: [phone] Bilirubin [Mass/Vol] 0.6 mg/dL 0.0 - 1.2 [facility] Work Phone: [phone] Calcium [Mass/Vol] 9.3 mg/dL 8.6 - 10.[address] Work Phone: [phone] Chloride [Moles/Vol] 103 mmol/L 98 - 107 [facility] Work Phone: [phone] CO2 [Moles/Vol] 27 mmol/L 21 - 32 -[facility] Work Phone: [phone] Creatinine [Mass/Vol] 1.29 mg/dL See Below -[facility] Work Phone: [phone] Comment on above: Reference Range: 0.5 0 - 1.30 Glucose [Mass/Vol] 103 mg/dL above high threshold 74 - 99 -[facility] Work Phone: [phone] Potassium [Moles/Vol] 3.8 mmol/L 3.5 - 5.3 -[facility] [place] Work Phone: [phone] Protein [Mass/Vol] 7.4 g/dL 6.4 - 8.[address] [place] Work Phone: [phone] Sodium [Moles/Vol] 138 mmol/L 136 - [address] [place] Work Phone: [phone] Urea nitrogen [Mass/Vol] 11 mg/dL 6 - 23 -[facility] [place] Work Phone: [phone] - Coagulationon 0 10-21-2022 INR Coag (PPP) [Relative time] 1.4 {INR} above high threshold 0.9 - 1.1 [facility] [place] Work Phone: [phone] PT Coag (PPP) [Time] 16.2 s above high threshold 9.8 - 12.8 [facility] [place] Work Phone: [phone] Comment on above: Note new reference yrn bates as of 08/13/2022 at 10:00am. MRSA Screenon 10-21-2022 Staphylococcus sp identified Org specific cx Nom (Unsp spec) Abnormal [facility] [place] Work Phone: [phone] Panel Informationon 10-21 [email or web address] ?RetrieveTestByDateTime?Pa [email or web address]=[id number]&Date=&Time=14%3a28%3a16% 3a00&TestType=ECG&Site=1&O utputType=PDF&Ext=PDF [facility] [place] Work Phone: [phone] Normal sinus rhythm [facility] [place] Work Phone: [phone] Borderline Normal [facility] [place] Work Phone: -[facility] [place] Work Phone: [phone] -[facility] [place] Work Phone: [phone] [facility] [place] Work Phone: [phone] [facility] [place] Work Phone: [phone] [facility] [place] Work Phone: [phone] [facility] [place] Work Phone: [phone] [facility] [place] Work Phone: [phone] [facility] [place] Work Phone: [phone] [facility] [place] Work Phone: [phone] [facility] [place] Work Phone: [phone] [facility] [place] Work Phone: [phone] [facility] [place] Work Phone: [phone] [facility] [place] Work Phone: [phone] [facility] [place] Work Phone: 61 {mL/min/1.73m2} >90 [facility] [place] Work Phone: Comment on above: CALCULATIONS OF MEGAN MATED GFR ARE PERFORMED USING THE 2020 CKD-EPI STUDY REFIT EQUATION WITHOUT THE RACE VARIABLE FOR THE IDMS-TRACEABLE CREATININE METHODS.https://jasn.asnjournals.org/content/early//ASN .2078249873 PT/INRon 10-21-2022 PT Coag (PPP) [Time] 16.2 s High 9.8 - 12.8 [facility] Comment on above: Result Comment: Note new reference range as of 08/13/2022 at 10:00am. 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 (procedure may be cancelled if no forklift driver), center location, insurance information Prep Instructions Reviewedyes Prep TypeCHG wipes Instructed to Have No Fluids AfterNPO after midnight How to be AddressedGarry Spoken Language PreferredEnglish Source of Informationpatient Stated Reason for AdmissionBack surgery Primary Contact Name and NumberJose Carlos (brother) [phone] Other Contact Names and NumbersDerick Garsia (friend) [phone] Limitations on Visitors/Phone Callsnone Medications Brought to Hospitalno General Health: Weight in kg90.4 kilogram(s) Weight in uqz611.2 pound(s) Weight Methodactual (measured) Scale Typestanding Height in feet5 feet Height in inches8.98 inch(es) Height in cm175.2 centimeter(s) Height Methodstated BMI (kg/m2)29.451 square meter Patient or Family Member Reaction to Anesthesiano previous reaction; no previous family member reaction; metal-lower back, left ankle left ankle surgery colonoscopy PE lung surgery neck surgery prostatectomy spinal surgery tonsillectomy with adenoids teeth extraction Blood Avoidance/Restrictionsnone Previous Transfusion Reactionno Health Mgmt: Symptoms/Conditions Managed at Homecancer; cardiovascular; chronic pain; genitourinary; HEENT (head, eyes, ears, nose, throat); peripheral/neurovascular; musculoskeletal; respiratory Cancer Symptoms/Conditions Commentprostatectomy Cardiovascular Symptoms/Conditionshyperte nsion; valvular disease Cardiovascular Management Strategiesmedication therapy; routine screening Cardiovascular Symptoms/Conditions Commentmitral valve regurgitation, AAA, hyperlipidemia Genitourinary Symptoms/Conditionsinconti nence Genitourinary Management Strategiesincontinence garment/pad; medication therapy Genitourinary Symptoms/Conditions Commentprostatectomy HEENT Symptoms/Conditions Commentglasses, all teeth extracted Musculoskeletal Symptoms/Conditionsback pain; osteoarthritis Musculoskeletal Management Strategiesmedication therapy Chronic Pain Locationback Chronic Pain Relieving Factorsmedication Chronic Pain Symptoms/Conditions CommentPain management Peripheral Neurovascular Management Strategiesmedication therapy Peripheral Neurovascular Symptoms/Conditions Commenth/o PE on Eliquis Respiratory Symptoms/Conditions Commentsnores, COVID vaccinated Barriers to Managing Healthnone Relationship/Environ: Lives Withsibling(s) Living Arrangementshouse Living Environment CommentsLives with brother Resource/Environmental Concernsnone Anticipated Transition [facility] Anticipated at Transitionnone Tobacco Use: Tobacco Useno former cigar smoker, quit 15 years ago Pre-op Checklist: Arrival [id number] Arrival Time09:25 Procedure TypeL2-3, L3-4 LAMINECTOMY, L3-4 INSTRUMENTATION, L2-3, L3-4 POSTERIOR LATERAL FUSION, L3-4LATERAL LUMBAR INTERBODY FUSION NPOyes Last Food [id number] 18:30 Last Clear Fluid [id number] 19:00 ID Band On Patientpatient ID (name), falls risk Consent Signedyes H&P Completeyes Anesthesia Assessment Completedpending EKG Performedsee results tab Chest X-Ray Performednot ordered Preop Antibioticssent to OR Beta-sushant Last Dose Date/[id number] 02:30 Glucose Resultn/a Type and Screen Resultedn/a Chlorhexadine Bath Givencompleted at home, completed morning of surgery Nasal Antiseptic Appliedcompleted in pre-op Soap and Water Bath the Night Before Surgeryyes Hair Washed with Shampooyes Bowel Prepno Otherlower back has hardware but unsure exactly what Surgical Site Infection Preventionyes Pain Scales and Managementyes Additional Information: Information Review: Allergies, Home Meds and Significant Events have been Reviewed and Verified with Patient/Familyyes Allergy, Intolerance, Adverse Event: Allergies: Allergy Status Unknown: Active Electronic Signatures: Moira Marsh) (Signed 04-Nov-2022 05:56) Authored: Initial Info, General Health, Pre-op Checklist, Additional Information Nelli AjRN) (Signed 21-Oct-2022 13:51) Authored: Initial Info, General Health, Health Mgmt, Relationship/Environ, Tobacco Use, Additional Information Last Updated: 04-Nov-2022 05:56 by Moira Marsh (SANTI) Normal [facility] STAPH/MRSA SCREENon 10-22-19 STAPH/MRSA SCREEN PATIENT: ERIK MORALES LOCATION: [facility] BILL#: [id number] : 55 AGE: SEX: M ORDERED BY: CURTIS MELÉNDEZ SOURCE: MISC COLLECTED: 10/21/22 14:18 ANTIBIOTICS AT TEDDY.: RECEIVED : 10/21/22 21:56 SITE: R E S U L T S STAPH/MRSA SCREEN FINAL 10/23/22 12:12 ISOLATE1 : Staphylococcus aureus METHICILLIN SENSITIVE STAPHYLOCOCCUS AUREUS (MSSA) Normal [facility] Comment on above: Performed By: #### S TAPH #### [facility] [address] [place] [address] URINALYSIS WITH CULTURE IF I NDICATEDon 10-21-2022 Appearance (U) CLEAR Normal CLEAR [facility] Comment on above: Performed By: #### U ARFX #### [address] [id number] Bilirubin Ql (U) Negative Normal NEGATIVE [facility] Comment on above: Performed By: #### U ARFX #### [address] [id number] Color (U) YELLOW Normal STRAW,YELLO W [facility] Comment on above: Performed By: #### U ARFX #### [address] [id number] Glucose Ql (U) Negative Normal NEGATIVE [facility] Comment on above: Performed By: #### U ARFX #### [address] [id number] Hemoglobin Ql (U) Negative Normal NEGATIVE [facility] Comment on above: Performed By: #### U ARFX #### [address] [place] [id number] Ketones Ql (U) Negative Normal NEGATIVE [facility] Comment on above: Performed By: #### U ARFX #### [address] [id number] Leukocyte esterase Test strip Ql (U) Negative Normal NEGATIVE [facility] Comment on above: Performed By: #### U ARFX #### [address] [id number] Nitrite Ql (U) Negative Normal NEGATIVE [facility] Comment on above: Performed By: #### U ARFX #### [address] [id number] pH (U) 6.0 [pH] Normal 5.0 - 8.0 [facility] Comment on above: Performed By: #### U ARFX #### [address] [id number] Protein Ql (U) Negative Normal NEGATIVE [facility] Comment on above: Performed By: #### U ARFX #### [address] [id number] Specific gravity (U) [Rel density] 1.010 Normal 1.005 - 1.035 [facility] Comment on above: Performed By: #### U ARFX #### [address] [id number] Urobilinogen (U) [Mass/Vol] mg/dL Normal 0.0 - 1.9 [facility] Comment on above: Performed By: #### U ARFX #### [address] [id number] Color (U) YELLOW See Below -[facility] [place] Work Phone: Comment on above: Reference Range: STR AW,YELLOW Glucose Ql (U) Negative NEGATIVE [facility] Work Phone: Ketones Ql (U) Negative NEGATIVE [facility] Work Phone: Leukocyte esterase Test strip Ql (U) Negative NEGATIVE -[facility] Orientation Phone: pH (U) 6.0 [pH] 5.0 - 8.0 -[facility] [employer] Phone: Protein (U) [Mass/Vol] Negative NEGATIVE -[facility] [employer] Work Phone: [phone] RBC (U) [#/Vol] Negative NEGATIVE -[facility] [employer] Work Phone: Specific gravity (U) [Rel density] 1.010 1 See Below -[facility] [employer] Phone: Comment on above: Reference Range: 1.0 05 - 1.035 URINALYSIS WITH CULTURE IF INDICATED Negative NEGATIVE -[facility] [employer] Phone: URINALYSIS WITH CULTURE IF INDICATED <2.0 0.0 - 1.9 -[facility] [place] Work Phone: URINALYSIS WITH CULTURE IF INDICATED CLEAR CLEAR -[facility] [employer] Phone: Established Visit (Orthopaed ic Surgery)on 09-19-2022 Established Visit (Orthopaedic Surgery) Orders Back pain, Other intervertebral disc degeneration, lumbar region [place] [employer]ace; Status:Need Information - Financial Authorization; Requested for:[id number]; Osteogenesic Stimulator; Status:Active; Requested for:[id number]; Provider Impressions Assessment: At this time, I think if we were to do an operation on him it would be to come in and do a lateral cage at L3-4 with a standalone plate and then roll the patient over and do an L2-3 and L3-4 open laminectomy without any posterolateral fusion or instrumentation. Treatment Plan: For complete plan details, please refer to Dr. Meléndez?s portion of this dictation. In a face to face encounter, I performed a history and physical examination, discussed pertinent diagnostic studies if indicated, and discussed diagnosis and management strategies with both the patient and the midlevel provider. I reviewed the midlevel?s note and agree with the documented findings and plan of care. Erik is here for followup. He had his x-rays at last visit and an MRI this time. He has a history of a TLIF at L4-L5 and instrumentation at L4-L5 and L5-S1. He is now having neurogenic claudication symptoms with heaviness and weakness in his legs and difficulty walking any sort of distance. This is slowly getting progressively worse. He has no bowel or bladder changes. On exam, his posterior incision is well healed. He is clear in his lateral flank. He has got decreased back range of motion. Pretty good strength. No instability. Examination of the lower extremities reveals no point tenderness, swelling, or deformity. Range of motion of the hips, knees, and ankles are full without crepitus, instability, or exacerbation of pain. Strength is 5/5 throughout. X-rays do show a grade 1 spondylolisthesis, which is dynamic at L3-L4, which is above the prior L4-L5 TLIF and L5-S1 instrumented fusion. MRI shows moderate stenosis centrally, approaching severe stenosis centrally at L2-L3 and L3-L4. No real stenosis above that. Assessment is patient with stenosis at L2-L3, L3-L4 and spondylolisthesis at L3-L4, prior fusion at L4-L5 and L5-S1. I told him at this point the options are to live with it, physical therapy, pain management or surgery. He says he cannot live with it. He has failed physical therapy, as he has done that and he is not doing well. He failed pain management and injections. He just wants to proceed with surgery. He understands surgery is elective. He understands surgery comes with more risks than not doing surgery, but he still wants to proceed with surgery. We then talked about surgical options. Option 1 is to do an L2-L3, L3-L4 laminectomy and see how that spondylolisthesis evolves. It is possible it will not move, but it is possible that it will. Option 2 is we could do a fusion also at the L3-L4 level. He wants to proceed on with the most definitive operation possible, even if it requires a more invasive approach. The plan is: All of the risks, benefits, and potential complications for operative and non-operative treatment were discussed at length with the patient. Risks of operative intervention include, but are not limited to: 1) anesthesia complications, 2) extensive blood loss, 3) infection, 4) damage to uninjured structures including, but not limited to the dural sack and nerve roots, 5) blood clots, and 6) lack of improvement or worsening of symptoms. These complications could result in , permanent disability including paralysis, swallowing or speech difficulty, or need for re-operation. Upon leaving the office today, the patient completely understood these risks and wishes to proceed with operative intervention. In addition, this procedure is only done for extremity symptoms and this was explicitly explained to the patient. We are going to do an L3-L4 lateral lumbar fusion coming in from the left side. We will then roll the patient onto his belly in the prone position and do an L2-L3, L3-L4 midline laminectomy with a posterolateral fusion at both levels. When the patient is in the lateral position, we will do a lateral plate and screw construct as well. Chief Complaint F/U Lumbar after therapy, says that he feels about the same. History of Present IllnessGarry is here for followup. He was last seen August 23, 2022. He is having low back pain and he is having claudication-type symptoms in both of his legs. He states that he cannot walk any long distance. He did four visits of physical therapy in the month of August and he feels like it is not helping him. He has no change in symptoms from his previous visit. This is significantly affecting his bodily function and he is here to discuss surgery today. He denies any fever, chills, nausea, vomiting, or night sweats. He has no bowel or bladder complaints. Active Problems Problems AAA (abdominal aortic aneurysm) (441.4) (I71.40) Abnormal EKG (794.31) (R94.31) Back pain (724.5) (M54.9) Class 1 obesity with body mass index (BMI) of 30.0 to 30.9 in adult (278.00,V (more content not included)... Normal [facility] Initial Visit (Orthopaedic S urgery)on 08-23-2022 Initial Visit (Orthopaedic Surgery) Provider Impressions ASSESSMENT: This is a patient with low back pain, radicular pain to both legs, stenosis-type symptoms down the legs. He cannot stand or walk for long periods of time. He is here with his friend who also gives a history on the patient; te patient's symptoms and onset and treatment that he has had. TREATMENT PLAN: Please refer to Dr. Mleéndez?s final assessment and plan for this patient. In a face to face encounter, I performed a history and physical examination, discussed pertinent diagnostic studies if indicated, and discussed diagnosis and management strategies with both the patient and the midlevel provider. I reviewed the midlevel?s note and agree with the documented findings and plan of care. Erik has neurogenic claudication symptoms with heaviness and weakness in his legs, as well as back pain. He had a surgery in the past, which was an L4-L5 and L5-S1 midline laminectomy with instrumentation at both levels and an interbody cage at L4-L5. This surgery was likely many years ago based upon the fact that the plate and screws are Steffee plates and the interbody cage is a Norbert cage. He currently has stenosis at L2-L3 and L3-L4, moderately centrally. In fact, at L2-L3 it is moderate to severe. I do not see any significant foraminal stenosis. There is no clear evidence of a spondylolisthesis on his x-rays, but he does not have flexion and extension x-rays. Assessment is patient with the above described MRI with just stenosis centrally at L2-L3 and L3-L4. I do not think he has any significant instability. I told him at this point his options are to live with it, physical therapy, pain management, or surgery. He says he cannot live with it. He will try some physical therapy. He has already failed epidurals. An operation on him would be an L2-L3 and L3-L4 midline laminectomy. I do not think we need to do any posterolateral fusion or anything like that, but we could consider that given the fact that he does have a fusion adjacent to that with Steffee plates. We could consider a noninstrumented posterolateral fusion. The plan is he will do physical therapy and follow up in a month. We will get some flexion and extension x-rays on the way out. If we ever need to do surgery, we will have an idea if he does have any instability, it is not showing up on his plain AP and lateral x-rays. Chief Complaint new patient. low back pain with RT sided pain to nee x 2 months. h/o sx in 1998. thoracic and lumbar xrays and MRI in [place]. brought a disc. History of Present IllnessErik is a new patient to us, new to the practice. He comes to the office complaining of low back pain. It will go down to both of his legs, especially when he starts to walk. He cannot stand or walk for long periods of time. He feels like there is a ball in the middle of his back. When he walks, it radiates out to the sides. He has no bowel or bladder complaints. No saddle anesthesia. No trauma, accidents or falls to cause it. He had surgery back in 1998, he thinks at the L4-L5 level. It started about two months ago. He has had no recent treatment for it. No therapy. He has had epidurals about four months ago, and he got a couple of hours of relief. Otherwise, no therapy. He has had MRIs and x-rays done. He goes to the pain management center down in [place]. Review of Systems Review of systems, past medical history, social history and family history documented and initialed on the patient information form dated August 23, 2022 and pertinent for eye issues, chest pain, angina, high blood pressure, bleeding problems, clots, numbness and tingling, lung issues. Height, weight, and pulse documented in the office chart and dated August 23, 2022. Active Problems Problems AAA (abdominal aortic aneurysm) (441.4) (I71.40) Abnormal EKG (794.31) (R94.31) Class 1 obesity with body mass index (BMI) of 30.0 to 30.9 in adult (278.00,V85.30) (E66.9,Z68.30) Dyspnea (786.09) (R06.00) Essential hypertension (401.9) (I10) Former smoker (V15.82) (Z87.891) High risk medication use (V58.69) (Z79.899) Hyperlipidemia (272.4) (E78.5) Lung crackles (786.7) (R09.89) Mitral regurgitation (424.0) (I34.0) mild/moderate Pulmonary embolism (415.19) (I26.99) Pulmonary fibrosis (515) (J84.10) Sinus tachycardia (427.89) (R00.0) Past Medical History Problems History of BMI 31.0-31.9,adult (V85.31) (Z68.31) Resolved Date: 06 Feb 2021 History of Class 1 obesity without serious comorbidity with body mass index (BMI) of 31.0 to 31.9 in adult (278.00,V85.31) (E66.9,Z68.31) Resolved Date: 06 Feb 2021 History of chronic obstructive lung disease (V12.69) (Z87.09) Resolved Date: 06 Feb 2021 History of sleep apnea (V13.89) (Z86.69) Resolved Date: 06 Feb 2021 Surgical History Problems History of Ankle surgery History of Colonoscopy Feb 2017 History of Lung surgery History of Neck surgery History of Prostate surgery History of Prostatectomy History of Spinal surgery Histo (more content not included)... Normal [facility] Radiologyon 08-23-2022 XR Lumbar spine AP and Lateral [facility]: SPINE, LUMBOSACRAL 2 OR 3 EWSon 08-23-2022 SPINE, LUMBOSACRAL 2 OR 3 VIEWS Patient Name: ERIK MORALES STUDY: SPINE, LUMBOSACRAL; 2 OR 3 VIEWS; ; 08/23/2022 1:37 pm INDICATION: pain M51.36: Other intervertebral disc degeneration, lumbar region M54.9: Back pain. ACCESSION NUMBER(S): [id number] ORDERING CLINICIAN: CURTIS MELÉNDEZ FINDINGS: Flexion-extension x-rays of the lumbar spine show an L4-5 L5-S1 instrumentation with interbody cage at L4-5. There is a grade 1 spondylolisthesis at L3-4. There is moderate degenerative changes above the L3-4 level. Lumbar lordosis is maintained. There are no fractures. Range of motion with flexion extension is decreased with extension. There is calcification of the anterior vasculature. Electronically signed by: CURTIS MELÉNDEZ MD Normal [facility] US aortaon 08-16-2022 aorta [facility] [place] [address] Ultrasound Report Signed Patient: Erik Morales MR#: [id number] : 1955 Acct:[id number] Age/Sex: 66 / M ADM Date: 08/15/22 Loc: [facility] Room: Type: [facility] Attending Dr: Bianka Garcia ENGINEERING DOCUMENTATION SPECIALIST-C Ordering Provider: Bianka Garcia APRN Date of Service: 08/15/22 US/US aorta: I71.4 Copies to: Bianka Garcia APRN Abdominal aortic ultrasound Indication for study: Abdominal aortic aneurysm PROCEDURE: Color-flow duplex scanning is used to interrogate the infrarenal abdominal aorta. There is a small infrarenal abdominal aortic aneurysm with the largest transverse diameter of 3.4 cm. The iliacs are mildly dilated at 14 mm on the right and 12 mm on the left. US/US aorta IMPRESSION: Small infrarenal abdominal aortic aneurysm at 3.4 cm Impression dictated by: Christopher Thao M.D.08/16/2022 10:23 AM Dictation Location: [facility] Tech: Blanquita Gianna Transcribed By: LUIS 08/16/22 1023 Dictated By: Christopher Thao MD 08/16/22 1022 Signed By: 08/16/22 1023 [facility] VASC LAB Abdominal Aorta/Nancy ac/IVC Ultraon 07-31-2022 VASC LAB Abdominal Aorta/Iliac/IVC Ultra [address], [address] [place] [address] Vascular Lab Report Abdominal Aorta Iliac Ultrasound/IVC Ultrasound Patient Name: ERIK Mckoy Physician: [id number] Cecilio Go MD, [facility] Study Date: 07/31/2022 Referring CECILIO GO Physician: N/PID: [id number] PCP: Carmen Witt Accession/Order#: [id number] CC Report to: Date of : 1955 Technologist: Karol Hull RDCS Dali Gender: M Technologist 2: Admission Status: Outpatient Location Performed: [facility] Diagnosis/ICD: I71.43-Infrarenal abdominal aortic aneurysm, without rupture Indication: HTN, Hyperlipidemia, Obesity, Former Smoker, Dyspnea, Pulmonary Fibrosis Procedure/CPT: 31543 Duplex Aorta/IVC/Iliac/Bypass Graft-[id number] CONCLUSIONS: Aorta/Common Iliac Arteries/IVC: Infrarenal fusiform abdominal aortic aneurysm measuring 3.26 x 3.34 cm in the AP/transverse diameters and 4.17 in length with layered thrombus. When compared to study from 2020 the size of the aneurysm has slightly increased, repeat study in 1 years recommended. Imaging AND Doppler Findings: AORTA AP Lateral PSV Proximal 1.76 cm 2.17 cm 101.0 cm/s Mid 1.90 cm 2.73 cm 112.0 cm/s Distal 3.26 cm 3.34 cm 83.0 cm/s RIGHT AP Lateral PSV KARMA Proximal 1.09 cm 1.50 cm 100.00 cm/s LEFT AP Lateral PSV KARMA Proximal 0.71 cm 0.96 cm 0.96 cm/s [id number] Cecilio Go MD, FACC Final Normal [facility] VASC LAB Abdominal Aorta/Nancy ac/IVC Ultrasoundon 07-31-2022 VASC LAB Abdominal Aorta/Iliac/IVC Ultrasound [facility] [address] DO Work Phone: XR LSPINE 2_3 VIEWSon 2022 XR LSPINE 2_3 VIEWS EXAMINATION: XR LSPI NE 2_3 VIEWS, XR TSPINE 3 VIEWS HISTORY: Pain in thoracic spine COMPARISON: No relevant comparison available. FINDINGS: BONES: Mild dextrocurvature of the thoracic spine. No acute fracture or spondylolisthesis. Mild to moderate diffuse degenerative spondylosis most significant at L2-L3. Moderate facet osteophyte arthropathy. Posterior decompression bilateral transpedicular fusion L4-S1 DISC SPACES: Multilevel narrowing. Interbody spacer L4-L5 PARASPINOUS: Negative. No paraspinous abnormality is seen. OTHER: Extensive atherosclerosis. Dilation of the abdominal aorta only partially visualized IMPRESSION: Moderate diffuse degenerative changes of the thoracic and lumbar spine Electronically authenticated by: IRAIS LORENZANA Date: 2022-07-02 13:50 Normal [facility] Office Visit (Cardiology)on 06-04-2022 Follow-up visit Diagnoses/Problems Assessed Essential hypertension (401.9) (I10) Sinus tachycardia (427.89) (R00.0) Mitral regurgitation (424.0) (I34.0) mild/moderate Pulmonary embolism (415.19) (I26.99) High risk medication use (V58.69) (Z79.899) Hyperlipidemia (272.4) (E78.5) AAA (abdominal aortic aneurysm) (441.4) (I71.40) Class 1 obesity with body mass index (BMI) of 30.0 to 30.9 in adult (278.00,V85.30) (E66.9,Z68.30) Former smoker (V15.82) (Z87.891) Dyspnea (786.09) (R06.00) Lung crackles (786.7) (R09.89) Pulmonary fibrosis (515) (J84.10) Orders Class 1 obesity with body mass index (BMI) of 30.0 to 30.9 in adult Healthy Weight Tips; Status:Complete - Retrospective Authorization; Done: [id number] Some eating tips that can help you lose weight.; Status:Complete - Retrospective Authorization; Done: [id number] SocHx: Former smoker Tobacco Use Screening; Status:Complete; Done: [id number] Patient Instructions Please bring all medicines, vitamins, and herbal supplements with you when you come to the office. Prescriptions will not be filled unless you are compliant with your follow up appointments or have a follow up appointment scheduled as per instruction of your physician. Refills should be requested at the time of your visit. Can hold Eliquis 3 days before dental work Retrieve lab work from pcp Follow up in 6 months Chief Complaint ERIK MORALES is being seen for a 6 month follow-up of. Patient is in the office for follow-up for the problems noted below. Since he was last seen in the office several months ago he has had no events whatsoever. He denies any orthopnea PND or palpitations. He does have abdominal aortic aneurysm that is in need for follow-up with ultrasound. His examination was only remarkable for obesity. Encouragement provided to lose weight. He is currently anticoagulated for history of pulmonary embolism. The patient has pulmonary fibrosis and follows with pulmonary medicine. He does not need oxygen and has only mild crackles on his lung examination today. Assessment/recommendations : 1? 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 The event was unprovoked, will continue to monitor CBC 3-mild mitral regurgitation , last echo 2021, will follow echo in 3 years 4?prostate cancer status post surgery in remission 5?nuclear stress test 2021 normal 6?mild obesity advised patient to reduce calorie intake, he cannot do much exercise due to dyspnea. 7?small abdominal aortic aneurysm less than 3.5 cm by ultrasound May 2020. Patient is reformed smoker, follow-up testing is scheduled ultrasound 8?high risk medication with anticoagulation to be monitored closely Surgical History Problems History of Ankle surgery History of Colonoscopy Feb 2017 History of Lung surgery History of Neck surgery History of Prostate surgery History of Prostatectomy History of Spinal surgery History of Tonsillectomy with adenoidectomy Past Medical History Problems History of BMI 31.0-31.9,adult (V85.31) (Z68.31) Resolved Date: 06 Feb 2021 History of Class 1 obesity without serious comorbidity with body mass index (BMI) of 31.0 to 31.9 in adult (278.00,V85.31) (E66.9,Z68.31) Resolved Date: 06 Feb 2021 History of chronic obstructive lung disease (V12.69) (Z87.09) Resolved Date: 06 Feb 2021 History of sleep apnea (V13.89) (Z86.69) Resolved Date: 06 Feb 2021 Current Meds Medication NameInstruction Albuterol Sulfate HFA 108 (90 Base) MCG/ACT Inhalation Aerosol Solutionas directed Eliquis 5 MG Oral TabletTake 1 tablet twice daily Furosemide 20 MG Oral TabletTAKE ONE TABLET BY MOUTH DAILY AT 9AM Lipitor 40 MG Oral TabletTAKE 1 TABLET AT BEDTIME. Lisinopril 20 MG Oral TabletTAKE 1 TABLET DAILY. Metoprolol Tartrate 25 MG Oral TabletTake 1 tablet twice a day Nortriptyline HCl - 25 MG Oral CapsuleTAKE 1 CAPSULE AT BEDTIME. Omeprazole 40 MG Oral Capsule Delayed ReleaseTAKE 1 CAPSULE DAILY. Oxybutynin Chloride ER 10 MG Oral Tablet Extended Release 24 Hour1 TAB DAILY oxyCODONE-Acetaminophen 5-325 MG Oral TabletTAKE 1 TABLET Twice daily PRN Potassium Chloride ER 10 MEQ Oral Tablet Extended ReleaseTAKE 1 TABLET BY MOUTH EVERY DAY Temazepam 30 MG Oral CapsuleTAKE 1 CAPSULE AT BEDTIME. tiZANidine HCl - 4 MG Oral TabletTAKE 1 TABLET AT BEDTIME. Allergies Medication nitroglycerin Adverse Reaction; Hypotension;; Recorded By: Paulette Whitley; 01/23/2021 1:48:33 PM Social History Problems Caffeine use (V49.89) (Z78.9) Former smoker (V15.82) (Z87.891) No alcohol use No illicit drug use Review of Systems Constitutional: not feeling tired. Cardiovascular: no intermittent leg claudication and as noted in HPI. Respiratory: no cough and no shortness of breath. Gastrointestinal: no change in bowel habits and no blood in stools. Integumentary: no skin rashes. Neurologic (more content not included)... Normal [employer] Tobacco Screening.on 023 Adult depression screening assessment No [facility] [employer] DO Work Phone: Fall risk assessment a) No falls within the last year [facility] [employer] DO Work Phone: Tobacco use status [facility] b) No [facility] [employer] DO Work Phone: CREATININEon 02-18-2022 Creatinine [Mass/Vol] 1.23 mg/dL Normal 0.70-1.30 [facility] Comment on above: Performed By: #### E RUR #### [facility] [address] [address] [address] Arielle Biswas EGFR-AF CONGOLESE >60 Normal >=60 [facility] Comment on above: Performed By: #### E RUR #### [facility] [address] [address] [address] Arielle Biswas EGFR-NON AF CONGOLESE 59 mL/min/1.73m2 Critically low >=60 [facility] Comment on above: Performed By: #### E RUR #### [facility] [address] [place] [address] CHEST W CONon 02-18-2022 CT CHEST W CON EXAMINATION: CT CHES T W CON HISTORY: Lung field abnormal ; follow-up lung base opacities; shortness of breath with exertion COMPARISON: CTA chest 11/05/2021 TECHNIQUE: Multi-planar CT images were created with IV contrast. Axial, Coronal, and Sagittal images. Dose reduction techniques were achieved by using automated exposure control and/or adjustment of mA and/or kV according to patient size and/or use of iterative reconstruction technique. FINDINGS: LUNGS: Stable right apical pleural scarring. Multiple small patchy nodular opacities within right lung base posterior course phrenic angle which have decreased in size. Near complete clearing of left posterior lung base opacities. PLEURA: No mass, effusion, or pneumothorax. VASCULATURE: No abnormality. WILLIE: No mass or adenopathy. MEDIASTINUM: No mass or adenopathy. CARDIAC: No enlargement, pericardial thickening, or significant calcification. AORTA: No aneurysm or dissection. CHEST WALL: No mass or axillary adenopathy. BONES: No bone lesion or fracture. LIMITED ABDOMEN: Stable small round opacity within anterior right hepatic lobe favoring a cyst or hemangioma. The Limited images of the upper abdomen. OTHER: Negative. IMPRESSION: 1. Improved appearance of bibasilar opacities, likely representing resolving infiltrates. Consider additional follow-up in 6 months to document continued improvement/stability. Electronically authenticated by: BRITANY TSANG Date: 2022-02-18 15:28 Normal [facility] Office Visit (Cardiology)on 12-11-2021 Follow-up visit Diagnoses/Problems Assessed AAA (abdominal aortic aneurysm) (441.4) (I71.40) Essential hypertension (401.9) (I10) Hyperlipidemia (272.4) (E78.5) Mitral regurgitation (424.0) (I34.0) mild/moderate Pulmonary embolism (415.19) (I26.99) Pulmonary fibrosis (515) (J84.10) Sinus tachycardia (427.89) (R00.0) High risk medication use (V58.69) (Z79.899) Former smoker (V15.82) (Z87.891) Class 1 obesity with body mass index (BMI) of 30.0 to 30.9 in adult (278.00,V85.30) (E66.9,Z68.30) Dyspnea (786.09) (R06.00) Orders Class 1 obesity with body mass index (BMI) of 30.0 to 30.9 in adult Healthy Weight Tips; Status:Complete - Retrospective Authorization; Done: [id number] Some eating tips that can help you lose weight.; Status:Complete - Retrospective Authorization; Done: [id number] SocHx: Former smoker Tobacco Use Screening; Status:Complete; Done: [id number] Patient Instructions Please bring all medicines, vitamins, and herbal supplements with you when you come to the office. Prescriptions will not be filled unless you are compliant with your follow up appointments or have a follow up appointment scheduled as per instruction of your physician. Refills should be requested at the time of your visit. Patient advised to have dental office send a request to hold Eliquis. Follow up in 6 months Chief Complaint ERIK MORALES is being seen for a 7 month follow-up of. Patient is in the office for follow-up for for pulmonary embolism. Recently follow-up CT scan at [facility] revealed resolution of the pulmonary emboli. Some other pathology was noted with densities requiring follow-up imaging in 3 to 6 months which has been arranged through his PCP. He is currently anticoagulated with Eliquis. The patient is contemplating further dental work in December which he should be able to hold anticoagulation prior to. Recent nuclear stress test at [facility] was reviewed and shared with the patient and was normal. He is also known to have normal ejection fraction. He currently has no complaint to report physical examination was only remarkable for 8 pounds weight gain from last visit. He is now in the obesity range recent medical record from [facility] were reviewed with the patient and reviewed by myself. Assessment/recommendations : 1? 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 The event was unprovoked, will continue to monitor CBC 3-mild mitral regurgitation , last echo 2021 4?prostate cancer status post surgery in remission 5?nuclear stress test 2021 normal 6?mild obesity advised patient to reduce calorie intake, he cannot do much exercise due to dyspnea. 7?small abdominal aortic aneurysm less than 3.5 cm by ultrasound May 2020. Patient is reformed smoker, follow-up testing couple years will be scheduled 8?high risk medication with anticoagulation to be monitored closely Surgical History Problems History of Ankle surgery History of Colonoscopy Feb 2017 History of Lung surgery History of Neck surgery History of Prostate surgery History of Prostatectomy History of Spinal surgery History of Tonsillectomy with adenoidectomy Past Medical History Problems History of BMI 31.0-31.9,adult (V85.31) (Z68.31) Resolved Date: 06 Feb 2021 History of Class 1 obesity without serious comorbidity with body mass index (BMI) of 31.0 to 31.9 in adult (278.00,V85.31) (E66.9,Z68.31) Resolved Date: 06 Feb 2021 History of chronic obstructive lung disease (V12.69) (Z87.09) Resolved Date: 06 Feb 2021 History of sleep apnea (V13.89) (Z86.69) Resolved Date: 06 Feb 2021 Current Meds Medication NameInstruction Albuterol Sulfate HFA 108 (90 Base) MCG/ACT Inhalation Aerosol Solutionas directed Eliquis 5 MG Oral TabletTake 1 tablet twice daily Furosemide 20 MG Oral TabletTAKE ONE TABLET BY MOUTH DAILY AT 9AM Lipitor 40 MG Oral TabletTAKE 1 TABLET AT BEDTIME. Lisinopril 20 MG Oral TabletTAKE 1 TABLET DAILY. Metoprolol Tartrate 25 MG Oral TabletTake 1 tablet twice a day Nortriptyline HCl - 25 MG Oral CapsuleTAKE 1 CAPSULE AT BEDTIME. Omeprazole 40 MG Oral Capsule Delayed ReleaseTAKE 1 CAPSULE DAILY. Oxybutynin Chloride ER 10 MG Oral Tablet Extended Release 24 Hour1 TAB DAILY oxyCODONE-Acetaminophen 5-325 MG Oral TabletTAKE 1 TABLET Twice daily PRN Potassium Chloride ER 10 MEQ Oral Tablet Extended ReleaseTAKE 1 TABLET DAILY. Temazepam 30 MG Oral CapsuleTAKE 1 CAPSULE AT BEDTIME. tiZANidine HCl - 4 MG Oral TabletTAKE 1 TABLET AT BEDTIME. Allergies Medication nitroglycerin Adverse Reaction; Hypotension;; Recorded By: Paulette Whitley; 01/23/2021 1:48:33 PM Social History Problems Caffeine use (V49.89) (Z78.9) Former smoker (V15.82) (Z87.891) No alcohol use No illicit drug use Review of Systems Constitutional: not feeling tired. Cardiovascular: chest pain and palpitations, but (more content not included)... Normal [employer] Tobacco Screening.on 022 Fall risk assessment a) No falls within the last year [facility] [address] DO Work Phone: Tobacco use status [facility] b) No [facility] [address] DO Work Phone: Tobacco Screening. Yes -[facility] [address] DO Work Phone: CTA CHEST WO W CONon 022 CTA CHEST WO W CON EXAMINATION: CTA RIKA ST WO W CON HISTORY: H/O: pulmonary embolus ; acute midsternal chest pain COMPARISON: CT chest 07/13/2021 TECHNIQUE: Multi-planar CT images were created with IV contrast. Axial, Coronal, and Sagittal images. Dose reduction techniques were achieved by using automated exposure control and/or adjustment of mA and/or kV according to patient size and/or use of iterative reconstruction technique. 3-D reconstruction was performed on a separate workstation. FINDINGS: VASCULATURE: Clearing of previously seen pulmonary emboli. LUNGS: Several small irregular nodular opacities within the posterior lung bases, left greater than right; stable on right and slightly improved on left. PLEURA: Right apical pleural scarring. No pleural effusion or pneumothorax. WILLIE: A few small calcified left hilar lymph nodes. MEDIASTINUM: No mass or adenopathy. CARDIAC: No enlargement, pericardial effusion, or pericardial thickening. AORTA: No aneurysm or dissection. CHEST WALL: No mass or axillary adenopathy. BONES: No bone lesion or fracture. LIMITED ABDOMEN: No suspicious findings. Limited images of the upper abdomen. OTHER: Negative. IMPRESSION: 1. Clearing of previously seen pulmonary emboli. 2. Multiple irregular small soft tissue opacities within the posterior lung bases, slightly improved on left; areas of infarction, infiltrates, scarring, or less likely neoplasm. Additional follow-up in 3-6 months to document stability versus change. Electronically authenticated by: BRITANY TSANG Date: 2021-11-05 11:08 Normal [facility] NM STRESS/REST MULTIon 10-17 NM STRESS/REST MULTI Patient: ERIK MORALES Exam Date: 10/17/2021 : 1955 Gender:M Ordering : DR CARMEN WITT . Admission #: [id number] Family : Order #: [id number] CLICK HERE TO VIEW EXAM RADIOLOGY REPORT PROCEDURE: RADIONUCLIDE IMAGING STRESS/REST MULTI COMPARISON: None. INDICATIONS: Dyspnea on exertion TECHNIQUE: Exam Description: Stress/Rest one day protocol gated SPECT Rest Imagin.3 mCi Tc-99m Cardiolite IV on 10/17/2021 Stress Imaging 30.0 mCi Tc-99m Cardiolite IV on 10/17/2021 Exercise Protocol: 0.4 mg Lexiscan given IV Heart Rate (bpm): Rest: 62 Max: 82 PMHR: 52 Blood Pressure: Rest: 142/88 Max: 164/92 Symptoms: Rest and peak stress ECG findings were normal and the exercise portion of the study was normal per attending physician Dr. Luciano . For more details please see separate cardiac stress test report. FINDINGS: QUALITY OF STUDY: Excellent. PERFUSION DEFECT: None. LOCATION: N/A SIZE: N/A. SEVERITY: N/A. TYPE: N/A. WALL MOTION: Normal. LV SIZE: Normal. 90 mL. TID / TCD: None; 0.8 LVEF: Normal. Calculated EF 75%. SUMMARY: Myocardial perfusion imaging study is NORMAL. CONCLUSION: 1. Normal nuclear medicine myocardial perfusion scan. Dictated by: Britany Tsang M.D. on 10/17/2021 at 13:44 Approved by: Britany Tsang M.D. on 10/17/2021 at 13:48 Normal [facility] T4, T3U, FTI LABCORPon 10-10 Free Thyroxine Index 2.1 Normal 1.2-4.9 [facility] Comment on above: Performed By: #### E RUR #### [facility] [address] [address] [address] Arielle Biswas T3 Uptake 28 % Normal 24-39 [facility] Comment on above: Performed By: #### E RUR #### [facility] [address], [place] [address] Dr. Arielle Biswas T4 [Mass/Vol] 7.5 ug/dL Normal 4.5-12.0 [facility] Comment on above: Performed By: #### E RUR #### [facility] [address], [place] [address] Dr. Arielle Biswas BNPon 10-09-2021 Natriuretic peptide B (Bld) [Mass/Vol] 319.0 pg/mL Normal <=900.0 [facility] Comment on above: Performed By: #### B ENGINEERING DOCUMENTATION SPECIALIST, TSH, CMP #### [facility] [address] [place] [address] Dr. Arielle Biswas CBC AUTO DIFFon 10-09-2021 BASO # 0.1 103/ul Normal 0.0-0.1 [facility] Comment on above: Performed By: #### C BC #### [facility] [address] [place] [address] Dr. Arielle Biswas Basophils/100 WBC (Bld) 1.3 % Normal 0.2-2.0 [facility] Comment on above: Performed By: #### C BC #### [facility] [address] [place] [address] Dr. Arielle Biswas EO # 0.2 103/ul Normal 0.0-0.7 [facility] Comment on above: Performed By: #### C BC #### [facility] [address] [place] [address] Dr. Arielle Biswas Eosinophils/100 WBC (Bld) 3.0 % Normal 0.9-7.0 [facility] Comment on above: Performed By: #### C BC #### [facility] [address] [place] [address] Dr. Arielle Biswas Erythrocyte distribution width (RBC) [Ratio] 13.5 % Normal 11.0-15.0 [facility] Comment on above: Performed By: #### C BC #### [facility] [address] [place] [address] Dr. Arielle Biswas Hematocrit (Bld) [Volume fraction] 41.8 % Critically low 42.0-54.0 [facility] Comment on above: Performed By: #### C BC #### [facility] [address] [place] [address] Dr. Arielle Biswas Hemoglobin (Bld) [Mass/Vol] 13.6 g/dL Critically low 14.0-18.0 [facility] Comment on above: Performed By: #### C BC #### [facility] [address] [place] [address] Dr. Arielle Biswas IG # 0.03 10e3/ul Normal 0.00-0.03 [facility] Comment on above: Performed By: #### C BC #### [facility] [address] [place] [address] Dr. Arielle Biswas IG % 0.4 % Normal 0.0-0.5 [facility] Comment on above: Performed By: #### C BC #### [facility] [address] [place] [address] Dr. Arielle Biswas LYMPH # 1.2 103/ul Normal 1.2-3.8 [facility] Comment on above: Performed By: #### C BC #### [facility] [address] [place] [address] Dr. Arielle Biswas Lymphocytes/100 WBC (Bld) 16.5 % Critically low 20.5-60.0 [facility] Comment on above: Performed By: #### C BC #### [facility] [address] [place] [address] Dr. Arielle Biswas MANUAL DIFF REQ NO Normal [facility] Comment on above: Performed By: #### C BC #### [facility] [address] [place] [address] Dr. Arielle Biswas MCH (RBC) [Entitic mass] 31.2 pg Normal 25.9-34.0 [facility] Comment on above: Performed By: #### C BC #### [facility] [address] [place] [address] Dr. Arielle Biswas MCHC (RBC) [Mass/Vol] 32.5 g/dL Normal 29.9-35.2 [facility] Comment on above: Performed By: #### C BC #### [facility] [address] [place] [address] Dr. Arielle Biswas MCV (RBC) [Entitic vol] 95.9 fL Critically high 80.0-94.0 [facility] Comment on above: Performed By: #### C BC #### [facility] [address] [place] [address] Dr. Arielle Biswas MONO # 0.8 103/ul Normal 0.3-0.8 [facility] Comment on above: Performed By: #### C BC #### [facility] [address] [address] [address] Arielle Biswas Monocytes/100 WBC (Bld) 11.5 % Normal 1.7-12.0 [facility] Comment on above: Performed By: #### C BC #### [facility] [address] [address] [address] Arielle Biswas NEUT # 4.7 103/ul Normal 1.4-6.5 [facility] Comment on above: Performed By: #### C BC #### [facility] [address] [place] [address] Dr. Arielle Biswas Neutrophils/100 WBC (Bld) 67.3 % Normal 43.0-75.0 [facility] Comment on above: Performed By: #### C BC #### [facility] [address] [place] [address] Dr. Arielle Biswas Platelet mean volume (Bld) [Entitic vol] 10.2 fL Normal 9.5-13.5 [facility] Comment on above: Performed By: #### C BC #### [facility] [address] [place] [address] Dr. Arielle Biswas PLT 243 103/ul Normal 150-450 [facility] Comment on above: Performed By: #### C BC #### [facility] [address] [place] [address] Dr. Arielle Biswas RBC 4.36 106/ul Critically low 4.70-6.10 [facility] Comment on above: Performed By: #### C BC #### [facility] [address] [place] [address] Dr. Arielle Biswas WBC 7.0 103/ul Normal 4.0-11.0 [facility] Comment on above: Performed By: #### C BC #### [facility] [address] [place] [address] Dr. Arielle Biswas D-DIMERon 10-09-2021 D-DIMER 0.30 mg/L FEU Normal <=0.59 [facility] Comment on above: Performed By: #### E RUR #### [facility] [address] [place] [address] Dr. Arielle Biswas D-DIMER COMMENTS SEE BELOW Normal [facility] Comment on above: Result Comment: Incr eases in D-Dimer concentration observed with thromboembolic events can be variable due to localization, size, and age of the thrombus. Therefore, a thromboembolic event cannot be diagnosed with certainty on the basis of the reference range. D-Dimers may also be elevated for a variety of disorders including: advanced age, , coronary disease, cancer, liver disease, infection, inflammation, hematoma, DIC, trauma, post-surgery, diabetes, thrombolytic or anticoagulant therapy, stress, and generalized hospitalization. Performed By: #### E RUR #### [facility] [address] [place] [address] Dr. Arielle Biswas PROF 14(COMP METB)on 022 Albumin [Mass/Vol] 3.0 g/dL Critically low 3.4-5.0 [facility] Comment on above: Performed By: #### B ENGINEERING DOCUMENTATION SPECIALIST, TSH, CMP #### [facility] [address] [place] [address] Dr. Arielle Biswas Albumin/Globulin [Mass ratio] 0.8 {ratio} Normal [facility] Comment on above: Performed By: #### B ENGINEERING DOCUMENTATION SPECIALIST, TSH, CMP #### [facility] [address] [place] [address] Dr. Arielle Biswas ALP [Catalytic activity/Vol] 120 U/L Critically high 46-116 [facility] Comment on above: Performed By: #### B ENGINEERING DOCUMENTATION SPECIALIST, TSH, CMP #### [facility] [address] [place] [address] Dr. Arielle Biswas ALT [Catalytic activity/Vol] 21 U/L Normal 16-63 [facility] Comment on above: Performed By: #### B ENGINEERING DOCUMENTATION SPECIALIST, TSH, CMP #### [facility] [address] [place] [address] Dr. Arielle Biswas Anion gap [Moles/Vol] 9.9 mmol/L Normal [facility] Comment on above: Performed By: #### B ENGINEERING DOCUMENTATION SPECIALIST, TSH, CMP #### [facility] [address] [address] [address] Arielle Biswas AST [Catalytic activity/Vol] 20 U/L Normal 15-37 [facility] Comment on above: Performed By: #### B ENGINEERING DOCUMENTATION SPECIALIST, TSH, CMP #### [facility] [address] [address] [address] Arielle Biswas Bilirubin [Mass/Vol] 0.6 mg/dL Normal 0.2-1.0 [facility] Comment on above: Performed By: #### B ENGINEERING DOCUMENTATION SPECIALIST, TSH, CMP #### [facility] [address] [address] [address] Arielle Biswas Calcium [Mass/Vol] 8.8 mg/dL Normal 8.5-10.1 [facility] Comment on above: Performed By: #### B ENGINEERING DOCUMENTATION SPECIALIST, TSH, CMP #### [facility] [address] [place] [address] Dr. Arielle Biswas Chloride [Moles/Vol] 103 mmol/L Normal 98-107 [facility] Comment on above: Performed By: #### B ENGINEERING DOCUMENTATION SPECIALIST, TSH, CMP #### [facility] [address] [address] [address] Arielle Biswas CO2 [Moles/Vol] 29.0 mmol/L Normal 21.0-32.0 [facility] Comment on above: Performed By: #### B ENGINEERING DOCUMENTATION SPECIALIST, TSH, CMP #### [facility] [address] [address] [address] Arielle Biswas Creatinine [Mass/Vol] 1.23 mg/dL Normal 0.70-1.30 [facility] Comment on above: Performed By: #### B ENGINEERING DOCUMENTATION SPECIALIST, TSH, CMP #### [facility] [address] [address] [address] Arielle Biswas EGFR-AF CONGOLESE >60 Normal >=60 [facility] Comment on above: Performed By: #### B ENGINEERING DOCUMENTATION SPECIALIST, TSH, CMP #### [facility] [address] [place] [address] Dr. Arielle Biswas EGFR-NON AF CONGOLESE 59 mL/min/1.73m2 Critically low >=60 [facility] Comment on above: Performed By: #### B ENGINEERING DOCUMENTATION SPECIALIST, TSH, CMP #### [facility] [address] [place] [address] Dr. Arielle Biswas Globulin (S) [Mass/Vol] 3.7 g/dL Normal [facility] Comment on above: Performed By: #### B ENGINEERING DOCUMENTATION SPECIALIST, TSH, CMP #### [facility] [address] [place] [address] Dr. Arielle Biswas Glucose [Mass/Vol] 95 mg/dL Normal 74-106 [facility] Comment on above: Performed By: #### B ENGINEERING DOCUMENTATION SPECIALIST, TSH, CMP #### [facility] [address] [place] [address] Dr. Arielle Biswas Potassium [Moles/Vol] 3.9 mmol/L Normal 3.5-5.1 [facility] Comment on above: Performed By: #### B ENGINEERING DOCUMENTATION SPECIALIST, TSH, CMP #### [facility] [address] [place] [address] Dr. Arielle Biswas Protein [Mass/Vol] 6.7 g/dL Normal 6.4-8.2 [facility] Comment on above: Performed By: #### B ENGINEERING DOCUMENTATION SPECIALIST, TSH, CMP #### [facility] [address] [place] [address] Dr. Arielle Biswas Sodium [Moles/Vol] 138 mmol/L Normal 136-145 [facility] Comment on above: Performed By: #### B ENGINEERING DOCUMENTATION SPECIALIST, TSH, CMP #### [facility] [address] [place] [address] Dr. Arielle Biswas Urea nitrogen [Mass/Vol] 13.0 mg/dL Normal 7.0-18.0 [facility] Comment on above: Performed By: #### B ENGINEERING DOCUMENTATION SPECIALIST, TSH, CMP #### [facility] [address] [place] [address] Dr. Arielle Biswas Urea nitrogen/Creatinine [Mass ratio] 10.6 mg/mg Normal [facility] Comment on above: Performed By: #### B ENGINEERING DOCUMENTATION SPECIALIST, TSH, CMP #### [facility] [address] [place] [address] Dr. Arielle Biswas TSHon 10-09-2021 TSH 0.393 uIU/mL Normal 0.358-3.740 [facility] Comment on above: Performed By: #### B ENGINEERING DOCUMENTATION SPECIALIST, TSH, CMP #### [facility] [address] [place] [address] Dr. Arielle Biswas Tobacco Screening.on 022 Adult depression screening assessment No [facility] [address] DO Work Phone: Fall risk assessment a) No falls within the last year [facility] [address] DO Work Phone: Tobacco use status [facility] b) No [facility] [address] DO Work Phone: CARDIAC DAVON 3-6on 2 CK [Catalytic activity/Vol] 80 U/L Normal 39-308 [facility] Comment on above: Performed By: #### E RUR #### [facility] [address] [place] [address] Dr. Arielle Biswas CK.MB [Mass/Vol] 2.19 ng/mL Normal <=3.60 [facility] Comment on above: Performed By: #### E RUR #### [facility] [address] [place] [address] Dr. Arielle Biswas HSTROP 152.1 pg/mL Critically high 4.0-76.1 [facility] Comment on above: Result Comment: CUT- OFF POINTS HAVE BEEN ESTABLISHED BASED ON THE FOURTH UNIVERSAL DEFINITIONS OF MYOCARDIAL INFARCTION. THE UPPER REFERENCE LIMIT (URL) OF TROPONIN, DEFINED THE 99TH PERCENTILE OF cTnI DISTRIBUTION IN A REFERENCE POPULATION, HAS BEEN CONFIRMED THE DECISION THRESHOLD FOR ME DIAGNOSIS. repeated Performed By: #### E RUR #### [facility] [address] [place] [address] Dr. Arielle Biswas CARDIAC DAVON ADMITon 022 CK [Catalytic activity/Vol] 32 U/L Critically low 39-308 [facility] Comment on above: Performed By: #### B MP, CMADM #### [facility] [address] [place] [address] Dr. Arielle Biswas CK.MB [Mass/Vol] 2.01 ng/mL Normal <=3.60 [facility] Comment on above: Performed By: #### B AMANDA ESTES #### [facility] [address] [place] [address] Dr. Arielle Biswas HSTROP 144.5 pg/mL Critically high 4.0-76.1 [facility] Comment on above: Result Comment: CUT- OFF POINTS HAVE BEEN ESTABLISHED BASED ON THE FOURTH UNIVERSAL DEFINITIONS OF MYOCARDIAL INFARCTION. THE UPPER REFERENCE LIMIT (URL) OF TROPONIN, DEFINED THE 99TH PERCENTILE OF cTnI DISTRIBUTION IN A REFERENCE POPULATION, HAS BEEN CONFIRMED THE DECISION THRESHOLD FOR ME DIAGNOSIS. repeated Performed By: #### B AMANDA ESTES #### [facility] [address] [place] [address] Dr. Arielle Biswas PJ 39 ng/mL Normal 16-96 [facility] Comment on above: Performed By: #### B AMANDA ESTES #### [facility] [address] [place] [address] Dr. Arielle Biswas CBC AUTO DIFFon 07-14-2021 BASO # 0.1 103/ul Normal 0.0-0.1 [facility] Comment on above: Performed By: #### E RUR #### [facility] [address] [place] [address] Dr. Arielle Biswas Basophils/100 WBC (Bld) 0.5 % Normal 0.2-2.0 [facility] Comment on above: Performed By: #### E RUR #### [facility] [address] [place] [address] Dr. Arielle Biswas EO # 0.1 103/ul Normal 0.0-0.7 [facility] Comment on above: Performed By: #### E RUR #### [facility] [address] [place] [address] Dr. Arielle Biswas Eosinophils/100 WBC (Bld) 0.6 % Critically low 0.9-7.0 [facility] Comment on above: Performed By: #### E RUR #### [facility] [address] [place] [address] Dr. Arielle Biswas Erythrocyte distribution width (RBC) [Ratio] 14.6 % Normal 11.0-15.0 [facility] Comment on above: Performed By: #### E RUR #### [facility] [address] [place] [address] Dr. Arielle Biswas Hematocrit (Bld) [Volume fraction] 45.5 % Normal 42.0-54.0 [facility] Comment on above: Performed By: #### E RUR #### [facility] [address] [place] [address] Dr. Arielle Biswas Hemoglobin (Bld) [Mass/Vol] 14.5 g/dL Normal 14.0-18.0 [facility] Comment on above: Performed By: #### E RUR #### [facility] [address] [place] [address] Dr. Arielle Biswas IG # 0.13 10e3/ul Critically high 0.00-0.03 [facility] Comment on above: Performed By: #### E RUR #### [facility] [address] [place] [address] Dr. Arielle Biswas IG % 0.8 % Critically high 0.0-0.5 [facility] Comment on above: Performed By: #### E RUR #### [facility] [address] [place] [address] Dr. Arielle Biswas LYMPH # 1.4 103/ul Normal 1.2-3.8 [facility] Comment on above: Performed By: #### E RUR #### [facility] [address] [place] [address] Dr. Arielle Biswas Lymphocytes/100 WBC (Bld) 8.7 % Critically low 20.5-60.0 [facility] Comment on above: Performed By: #### E RUR #### [facility] [address] [place] [address] Dr. Arielle Biswas MANUAL DIFF REQ NO Normal [facility] Comment on above: Performed By: #### E RUR #### [facility] [address] [place] [address] Dr. Arielle Biswas MCH (RBC) [Entitic mass] 30.5 pg Normal 25.9-34.0 [facility] Comment on above: Performed By: #### E RUR #### [facility] [address] [place] [address] Dr. Arielle Biswas MCHC (RBC) [Mass/Vol] 31.9 g/dL Normal 29.9-35.2 [facility] Comment on above: Performed By: #### E RUR #### [facility] [address] [place] [address] Dr. Arielle Biswas MCV (RBC) [Entitic vol] 95.6 fL Critically high 80.0-94.0 [facility] Comment on above: Performed By: #### E RUR #### [facility] [address] [place] [address] Dr. Arielle Biswas MONO # 1.1 103/ul Critically high 0.3-0.8 The [facility] Comment on above: Performed By: #### E RUR #### [facility] [address] [place] [address] Dr. Arielle Biswas Monocytes/100 WBC (Bld) 7.1 % Normal 1.7-12.0 [facility] Comment on above: Performed By: #### E RUR #### [facility] [address] [place] [address] Dr. Arielle Biswas NEUT # 12.9 103/ul Critically high 1.4-6.5 The [facility] Comment on above: Performed By: #### E RUR #### [facility] [address] [place] [address] Dr. Arielle Biswas Neutrophils/100 WBC (Bld) 82.3 % Critically high 43.0-75.0 [facility] Comment on above: Performed By: #### E RUR #### [facility] [address] [place] [address] Dr. Arielle Biswas Platelet mean volume (Bld) [Entitic vol] 9.7 fL Normal 9.5-13.5 [facility] Comment on above: Performed By: #### E RUR #### [facility] [address] [address] [address] Arielle Biswas PLT 206 103/ul Normal 150-450 [facility] Comment on above: Performed By: #### E RUR #### [facility] [address] [address] [address] Arielle Biswas RBC 4.76 106/ul Normal 4.70-6.10 [facility] Comment on above: Performed By: #### E RUR #### [facility] [id number] Arielle Biswas WBC 15.6 103/ul Critically high 4.0-11.0 [facility] Comment on above: Performed By: #### E RUR #### [facility] [address] [place] [address] Dr. Arielle Biswas CTA CHEST WO W CONon 07-14-2 022 CTA CHEST WO W CON EXAM: CTA CHEST WITH IV CONTRAST CTA CHEST WO W CON, CTA ABD/PELVIS WO W CON, EXAM: CTA SCAN OF THE ABDOMEN AND PELVIS WITH INTRAVENOUS CONTRAST DATE: 07/13/2021 10:33 PM EDT HISTORY: CHEST PAIN, UNSPECIFIED in a 65-year-old male COMPARISON: Chest x-ray dated 01/23/2021 TECHNIQUE: Multiple axial images are taken from the level of the thyroid down through the upper abdomen with the use of IV contrast. Images are then reconstructed in the sagittal and coronal planes. This exam was performed according to our departmental dose-optimization program which includes use of Automated Exposure Control, adjustment of the mA and/or kV according to patient size and/or use of iterative reconstruction technique. Postprocessing was performed for CTA with the following as per hospital protocol: Maximum intensity projection (MIPs) Contrast Used: 100 ml of Omnipaque 350 FINDINGS: CTA CHEST: Lungs: Axial series 5 demonstrates Air space opacities are demonstrated in bilateral lower lobes. Bilateral lower lobe nodules are demonstrated with the largest as follows:. Right lung: Axial image 53, there is a cluster of small nodules with the largest measuring 4 mm. Left lung: Axial image 56, there is a 4 mm pulmonary nodule LLL. Pleura: Normal Thyroid: Normal Mediastinum: Aorta: Normal. Pulmonary artery: Bilateral pulmonary emboli are demonstrated. Heart: Mildly enlarged right heart with backflow of contrast into the IVC Trachea/Bronchi: Well aerated. No intraluminal masses. Esophagus: Decompressed which limits evaluation. Normal for the lack of distention. Lymph Nodes: Normal. Chest wall: Normal. Axilla: Normal. Osseous Structures: Postoperative changes of the cervical spine is incompletely imaged. CTA ABDOMEN: Lines and Tubes: None Free Air: None. Liver: On coronal image 18, axial image 85, there is an area decreased attenuation in the right lobe of the liver there are measures 13 mm. Gallbladder: Fluid-filled level in the gallbladder. Common Bile Duct: Normal Pancreas: Fatty infiltration of the pancreas. Spleen: Punctate calcifications in the spleen Adrenal Glands: Right: Normal Left: Normal Kidneys: Right Kidney: Normal. Right Ureter: Normal. Left Kidney: Normal. Left Ureter: Normal. GI Tract: Stomach: Normal Small Bowel: Fluid-filled small bowel measures within normal. Appendix: Normal on axial image 161 Large Bowel: Air-filled rectum Mesentery/Peritoneum: Normal Vasculature: Aorta: The infrarenal aorta is aneurysmal with mural thrombus measuring 3.2 x 3.0 x 2.7cm. Total distance is 3.5 cm. IVC: Normal. Jayme Vein: Normal. Retroperitoneum: Normal Abdominal/Pelvic Wall: Bilateral fat inguinal hernias. CTA PELVIS: Bladder: Normal Reproductive: Normal prostate. Musculoskeletal: Multilevel degenerative disc disease with postoperative changes of the lumbosacral spine. Free Fluid: None. CTA Aorta: Ascending aorta measures 33 x 34 mm. Thoracic aorta: Normal. Descending thoracic aorta: The infrarenal aorta is aneurysmal with mural thrombus measuring 3.2 x 3.0 x 2.7cm. Total distance is 3.5 cm. Abdominal aorta: Normal. Celiac artery: Patent. SMA: Patent. CHRIS: Patent. Renal arteries: Patent. Bilateral common iliacs: Normal. Vascular calcifications present throughout the course of the aorta. IMPRESSION: CTA CHEST: 1. Positive for bilateral acute pulmonary emboli with early right-sided heart strain. 2. Airspace opacities in bilateral lower lobes. Although these may be due to bilateral acute PE, please correlate for pneumonia. 3. Bilateral lung nodules. Short-term follow-up in 3-6 months. CTA ABDOMEN PELVIS: 1. Infrarenal abdominal aortic aneurysm measures up to 3.2 cm with mural thrombus. 2. Fluid-filled small bowel. Please correlate for enteritis. 3. Gallbladder sludge. 4. Normal appendix. 5. Decreased attenuation in the liver incompletely imaged. May represent a cyst and/or hemangioma. However, other etiologies not excluded. Please correlate with patient's LFTs. If clinically indicated MRI may help better delineate. CRITICAL findings: Spoke with Dr. Sibley at 12:50 am EST [facility]NER CRITERIA 2017 SOLID NODULES: Multiple: When multiple nodules are present, the most suspicious nodule should guide further individualized management. Multiple solid nodules <6 mm (<100 mm3) Low-risk patients: no routine follow-up required High-risk patients: optional CT at 12 months Multiple solid nodules >6 mm (>100 mm3) Low-risk patients: CT at 3-6 months, then consider CT at 18-24 months High-risk patients: CT at 3-6 months, then CT at 18-24 months Guideline Exclusions: 1. Patients aged 35 years or younger 2. Patients with known malignancy 3. Immunocompromised patients 4. Lung cancer screening population Low risk: no (or minimal) smoking history, no prior cancer, smooth margin nodule H (more content not included)... Normal [facility] Covid-19 PCR ([facility])on 06-25 SARS-CoV-2 (COVID-19) RNA ELKIN+probe Ql (Unsp spec) Not detected Normal NOT DETECTED [facility] Comment on above: Result Comment: When diagnostic testing is negative, the possibility of a false negative should be considered in the context of a patient's recent exposures and the presence of clinical signs and symptoms consistent with SARS-CoV-2. This test is not yet approved or cleared by the [place] Food and Drug Administration (FDA). This test was developed by [employer], [place], [place]. The performance characteristics of this test were validated by [facility]. The results are not intended to be used as the sole means for clinical diagnosis or patient management decisions. The [facility] is authorized under Clinical Laboratory Improvement Amendments (CLIA) to perform high- complexity testing. This test is not yet approved or cleared by the [place] FDA. When there are no FDA-approved or cleared tests available, and other criteria are met, FDA can make tests available under an emergency access mechanism called an Emergency Use Authorization (EUA). The EUA for this test is supported by the [place] Health and Human Service's declaration that circumstances exist to justify the emergency use of in vitro diagnostics for the detection and/or diagnosis of the virus that causes COVID-19. This EUA will remain in effect for the duration of the COVID-19 declaration justifying emergency of IVDs, unless it is terminated or revoked by the FDA (after which the test may no longer be used). Performed By: #### E RUR #### [facility] [address] [place] [address] Dr. Arielle Biswas ER URINE PROFILEon 2 Bilirubin Ql (U) Negative Normal NEGATIVE [facility] Comment on above: Performed By: #### E RUR #### [facility] [address] [place] [address] Dr. Arielle Biswas Clarity (U) CLEAR Normal CLEAR [facility] Comment on above: Performed By: #### E RUR #### [facility] [address] [place] [address] Dr. Arielle Biswas Color (U) LT. YELLOW Normal YELLOW [facility] Comment on above: Performed By: #### E RUR #### [facility] [address] [place] [address] Dr. Arielle Biswas ERUAHD A micrscopic examina tion will be performed if indicated. Normal [facility] Comment on above: Performed By: #### E RUR #### [facility] [address] [place] [address] Dr. Arielle Biswas Glucose Ql (U) Negative Normal NEGATIVE The [facility] Comment on above: Performed By: #### E RUR #### [facility] [address] [place] [address] Dr. Arielle Biswas Hemoglobin Ql (U) Negative Normal NEGATIVE [facility] Comment on above: Performed By: #### E RUR #### [facility] [address] [place] [address] Dr. Arielle Biswas Ketones Ql (U) Negative Normal NEGATIVE [facility] Comment on above: Performed By: #### E RUR #### [facility] [address] [place] [address] Dr. Arielle Biswas LEUKOCYTES Negative Normal NEGATIVE [facility] Comment on above: Performed By: #### E RUR #### [facility] [address] [place] [address] Dr. Arielle Biswas Nitrite Ql (U) Negative Normal NEGATIVE [facility] Comment on above: Performed By: #### E RUR #### [facility] [address] [place] [address] Dr. Arielle Biswas pH (U) 6.0 [pH] Normal 5-9 [facility] Comment on above: Performed By: #### E RUR #### [facility] [address] [place] [address] Dr. Arielle Biswas SPEC GRAVITY 1.005 Normal 1.005-<=1.0 25 [facility] Comment on above: Performed By: #### E RUR #### [facility] [address] [place] [address] Dr. Arielle Biswas UA PROTEIN Negative Normal NEGATIVE/ TRACE [facility] Comment on above: Performed By: #### E RUR #### [facility] [address] [place] [address] Dr. Arielle Biswas UR MICRO IND NOT INDICATED Normal [facility] Comment on above: Performed By: #### E RUR #### [facility] [address] [place] [address] Dr. Arielle Biswas Urobilinogen Qn (U) 0.2 {Fernando'U}/dL Normal 0.2 - 1. 0 [facility] Comment on above: Performed By: #### E RUR #### [facility] [address] [place] [address] Dr. Arielle Biswas LACTATE/LACTIC ACIDon 2021 Lactate [Moles/Vol] 3.0 mmol/L Critically high 0.4-1.9 [facility] Comment on above: Result Comment: repe ated Performed By: #### E RUR #### [facility] [address] [address] [address] Arielle Biswas PROF CHEM 8 (BAS METB)on Anion gap [Moles/Vol] 14.0 mmol/L Normal [facility] Comment on above: Performed By: #### B FRANKLYN, CMADM #### [facility] [address] [place] [address] Dr. Arielle Biswas Calcium [Mass/Vol] 8.9 mg/dL Normal 8.5-10.1 [facility] Comment on above: Performed By: #### B FRANKLYN, CMADM #### [facility] [address] [address] [address] Arielle Biswas Chloride [Moles/Vol] 96 mmol/L Critically low 98-107 [facility] Comment on above: Performed By: #### B FRANKLYN, CMADM #### [facility] [address] [place] [address] Dr. Arielle Biswas CO2 [Moles/Vol] 26.5 mmol/L Normal 21.0-32.0 [facility] Comment on above: Performed By: #### B FRANKYLN, CMADM #### [facility] [address] [address] [address] Arielle Biswas Creatinine [Mass/Vol] 1.43 mg/dL Critically high 0.70-1.30 [facility] Comment on above: Performed By: #### B FRANKLYN, CMADM #### [facility] [address] [address] [address] Arielle Biswas EGFR-AF CONGOLESE 60 mL/min/1.73m2 Normal >=60 [facility] Comment on above: Performed By: #### B FRANKLYN, CMADM #### [facility] [address] [address] [address] Arielle Biswas EGFR-NON AF CONGOLESE 50 mL/min/1.73m2 Critically low >=60 [facility] Comment on above: Performed By: #### B FRANKLYN, CMADM #### [facility] [address] [address] [address] Arielle Biswas Glucose [Mass/Vol] 122 mg/dL Critically high 74-106 T [facility] Comment on above: Performed By: #### B FRANKLYN, CMADM #### [facility] [address] [place] [address] Dr. Arielle Biswas Potassium [Moles/Vol] 3.5 mmol/L Normal 3.5-5.1 [facility] Comment on above: Performed By: #### B FRANKLYN, CMADM #### [facility] [address] [place] [address] Dr. Arielle Biswas Sodium [Moles/Vol] 133 mmol/L Critically low 136-145 Th [facility] Comment on above: Performed By: #### B FRANKLYN, CMADM #### [facility] [address] [place] [address] Dr. Arielle Biswas Urea nitrogen [Mass/Vol] 12.0 mg/dL Normal 7.0-18.0 [facility] Comment on above: Performed By: #### B FRANKLYN, CMADM #### [facility] [address] [place] [address] Dr. Arielle Biswas Urea nitrogen/Creatinine [Mass ratio] 8.4 mg/mg Normal [facility] Comment on above: Performed By: #### B FRANKLYN, CMADM #### [facility] [address] [place] [address] Dr. Arielle Biswas PROTIMEon 07-14-2021 INR Coag (PPP) [Relative time] 0.99 {INR} Normal [facility] Comment on above: Performed By: #### P TT, PT #### [facility] [address] [place] [address] Dr. Arielle Biswas INR GUIDELINES SEE BELOW Normal [facility] Comment on above: Result Comment: YANG RED INR: 2.0 - 3.0 CONDITIONS NOT LISTED BELOW 2.5 - 3.5 FOR PROSTHETIC HEART VALVE REPLACEMENT 2.5 - 3.5 RECURRENT THROMBOSIS Performed By: #### P TT, PT #### [facility] [address] [place] [address] Dr. Areille Biswas PT Coag (PPP) [Time] 10.7 s Normal 9.0-11.6 [facility] Comment on above: Performed By: #### P TT, PT #### [facility] [address], [place] [address] Dr. Arielle Biswas PTTon 07-14-2021 aPTT Coag (Bld) [Time] 26.6 s Normal 22.3-36.2 [facility] Comment on above: Performed By: #### P TT, PT #### [facility] [address] [place], [place] [address] Dr. Arielle Biswas Tobacco Screening.on 022 Fall risk assessment a) No falls within the last year [facility] [address] DO Work Phone: Tobacco use status [facility] b) No [facility] [address] DO Work Phone: [phone] Tobacco Screening. Yes [facility] [address] DO Work Phone: [phone] Tobacco Screening.on 021 Fall risk assessment a) No falls within the last year [facility] [address] DO Work Phone: [phone] Tobacco use status [facility] b) No [facility] [address] DO Work Phone: [phone] Tobacco Screening.on 021 Fall risk assessment a) No falls within the last year [facility] [address] DO Work Phone: [phone] Tobacco use status [facility] b) No [facility] [place] [address] DO Work Phone: [phone] Vital Signs Date Time Vital Sign Value Performing Clinician Facility 12-23-2022 10:50-0400 Blood Pressure Location Marino SPEAR [facility] 12-23-2022 10:50-0400 Diastolic blood pressure 62 mm[Hg] Marino SPEAR [facility] 12-23-2022 10:50-0400 Heart rate 69 /min Marino SPEAR [facility] 12-23-2022 10:50-0400 Respiratory rate 16 /min Marino SPEAR [facility] 12-23-2022 10:50-0400 Systolic blood pressure 95 mm[Hg] Marino SPEAR [facility] 11-07-2022 10:56-0400 Body temperature 98.6 [degF] Carmen Hoy Other Phone: [facility] 11-07-2022 10:56-0400 Diastolic blood pressure 69 mm[Hg] Carmen Hoy Other Phone: [facility] 11-07-2022 10:56-0400 Heart rate 97 /min Carmen Hoy Other Phone: [facility] 11-07-2022 10:56-0400 Respiratory rate 16 /min Carmen Hoy Other Phone: [facility] 11-07-2022 10:56-0400 SaO2% (BldA) [Mass fraction] 96 % Carmen Hoy Other Phone: [facility] 11-07-2022 10:56-0400 Systolic blood pressure 113 mm[Hg] Carmen Hoy Other Phone: [facility] 10-30-2022 10:00-0400 Body height 175.26 cm Danna Violeta Other [employer] [facility] [employer] Other 10-30-2022 10:00-0400 Body mass index (BMI) [Ratio] 30.27 kg/m2 Danna Violeta Other [employer] Other 10-30-2022 10:00-0400 Body temperature 97 [degF] Danna Violeta Other [employer] Other 10-30-2022 10:00-0400 Body weight 92.99 kg Danna Violeta Other [employer] Other 10-30-2022 10:00-0400 Diastolic blood pressure 75 mm[Hg] Danna Violeta Other [employer] Other 10-30-2022 10:00-0400 Respiratory rate 20 /min Danna Violeta Other [employer] Other 10-30-2022 10:00-0400 SaO2% (BldA) [Mass fraction] 96 % Danna Violeta Other [employer] Other 10-30-2022 10:00-0400 Systolic blood pressure 116 mm[Hg] Danna Violeta Other [employer] Other 08-23-2022 12:57-0400 Body height 175.26 cm [employer] Work Phone: [facility] Work Phone: 08-23-2022 12:57-0400 Body mass index (BMI) [Ratio] 30.57 kg/m2 Carmen [email or web address] [place] Work Phone: [facility] [place] Work Phone: 08-23-2022 12:57-0400 Body surface area Derived from formula 2.1 m2 Ac[email or web address] Work Phone: [facility] Work Phone: 08-23-2022 12:57-0400 Body weight 93.9 kg Carmen M Hoy Work Phone: [facility] [facility] [place] Work Phone: 08-20-2022 11:30-0400 Body height 175.26 cm Danna Violeta Other [employer] Other 08-20-2022 11:30-0400 Body mass index (BMI) [Ratio] 30.42 kg/m2 Danna Violeta Other [employer] Other 08-20-2022 11:30-0400 Body temperature 96.8 [degF] Danna Violeta Other [employer] Other 08-20-2022 11:30-0400 Body weight 93.44 kg Danna Violeta Other [employer] Other 08-20-2022 11:30-0400 Diastolic blood pressure 80 mm[Hg] Danna Violeta Other [employer] Other 08-20-2022 11:30-0400 Respiratory rate 20 /min Danna Violeta Other [employer] Other 08-20-2022 11:30-0400 SaO2% (BldA) [Mass fraction] 97 % Danna Violeta Other [employer] Other 08-20-2022 11:30-0400 Systolic blood pressure 142 mm[Hg] Danna Violeta Other [employer] Other 08-15-2022 09:30-0400 Body height 175.26 cm Bianka Garcia Other [employer] Other 08-15-2022 09:30-0400 Body mass index (BMI) [Ratio] 30.57 kg/m2 Bianka Garcia Other [employer] Other 08-15-2022 09:30-0400 Body temperature 96.7 [degF] Bianka Garcia Other [facility] [employer] Other 08-15-2022 09:30-0400 Body weight 93.9 kg Bianka Garcia Other [employer] Other 08-15-2022 09:30-0400 Diastolic blood pressure 70 mm[Hg] Bianka Garcia Other [employer] Other 08-15-2022 09:30-0400 SaO2% (BldA) [Mass fraction] 98 % Bianka Garcia Other [employer] Other 08-15-2022 09:30-0400 Systolic blood pressure 118 mm[Hg] Bianka Garcia Other [employer] Other 06-04-2022 11:33-0400 Body height 175.26 cm Carmen [employer] Work Phone: [facility] [employer] [address] DO Work Phone: 06-04-2022 11:33-0400 Body mass index (BMI) [Ratio] 30.13 kg/m2 Carmen [email or web address] Work Phone: [facility] [address] DO Work Phone: 06-04-2022 11:33-0400 Body surface area Derived from formula 2.08 m2 Carmen [email or web address] Work Phone: [facility] 250 DO Work Phone: 06-04-2022 11:33-0400 Body weight 92.53 kg Carmen M Hoy Work Phone: [facility] 250 DO Work Phone: 06-04-2022 11:33-0400 Diastolic blood pressure 72 mm[Hg] Carmen M Hoy Work Phone: [facility] [employer] 250 DO Work Phone: 06-04-2022 11:33-0400 Heart rate 68 /min Carmen Witt Work Phone: [facility] 250 DO Work Phone: 06-04-2022 11:33-0400 Systolic blood pressure 110 mm[Hg] Carmen Witt Work Phone: [facility] DO Work Phone: 02-05-2022 15:30-0500 Body height 175.26 cm Danna Violeta Other [employer] Other 02-05-2022 15:30-0500 Body mass index (BMI) [Ratio] 29.97 kg/m2 Danna Violeta Other [employer] Other 02-05-2022 15:30-0500 Body temperature 98.4 [degF] Danna Violeta Other [employer] Other 02-05-2022 15:30-0500 Body weight 92.08 kg Danna Violeta Other [employer] Other 02-05-2022 15:30-0500 Diastolic blood pressure 83 mm[Hg] Danna Violeta Other [employer] Other 02-05-2022 15:30-0500 Respiratory rate 20 /min Danna Violeta Other [employer] Other 02-05-2022 15:30-0500 SaO2% (BldA) [Mass fraction] 96 % Danna Violeta Other [employer] Other 02-05-2022 15:30-0500 Systolic blood pressure 143 mm[Hg] Danna Violeta Other [employer] Other 12-11-2021 11:39-0400 Body height 175.26 cm Jean Saeed Naderer Work Phone: [facility] [facility] DO Work Phone: 12-11-2021 11:39-0400 Body mass index (BMI) [Ratio] 30.72 kg/m2 Jean Saeed Naderer Work Phone: [facility] 250 DO Work Phone: 12-11-2021 11:39-0400 Body surface area Derived from formula 2.1 m2 Jean Saeed Naderer Work Phone: [facility] [employer] 250 DO Work Phone: 12-11-2021 11:39-0400 Body weight 94.35 kg Jean Saeed Naderer Work Phone: [facility] 250 DO Work Phone: 12-11-2021 11:39-0400 Diastolic blood pressure 72 mm[Hg] Jean Christophe Naderer Work Phone: [facility] DO Work Phone: 12-11-2021 11:39-0400 Heart rate 72 /min Jean Saeed Naderer Work Phone: [facility] DO Work Phone: 12-11-2021 11:39-0400 Systolic blood pressure 124 mm[Hg] Jean A Naderer Work Phone: [facility] 250 DO Work Phone: 08-21-2021 15:00-0400 Body height 175.26 cm Danna Mcdaniel Other [employer] Other 08-21-2021 15:00-0400 Body mass index (BMI) [Ratio] 28.35 kg/m2 Danna Violeta Other [employer] Other 08-21-2021 15:00-0400 Body temperature 97.5 [degF] Danna Violeta Other [employer] Other 08-21-2021 15:00-0400 Body weight 87.09 kg Danna Violeta Other [employer] Other 08-21-2021 15:00-0400 Diastolic blood pressure 70 mm[Hg] Danna Violeta Other [employer] Other 08-21-2021 15:00-0400 Respiratory rate 20 /min Danna Violeta Other [employer] Other 08-21-2021 15:00-0400 SaO2% (BldA) [Mass fraction] 94 % Danna Violeta Other [employer] Other 08-21-2021 15:00-0400 Systolic blood pressure 110 mm[Hg] Danna Violeta Other [employer] Other 08-15-2021 11:30-0400 Body height 175.26 cm Julian Matthews Other [employer] Other 08-15-2021 11:30-0400 Body mass index (BMI) [Ratio] 28.06 kg/m2 Julian Matthews Other [employer] Other 08-15-2021 11:30-0400 Body temperature 97.5 [degF] Julian Matthews Other [employer] Other 08-15-2021 11:30-0400 Body weight 86.18 kg Julian Matthews Other [employer] Other 08-15-2021 11:30-0400 Diastolic blood pressure 68 mm[Hg] Julian Matthews Other [employer] Other 08-15-2021 11:30-0400 SaO2% (BldA) [Mass fraction] 98 % Julian Matthews Other [employer] Other 08-15-2021 11:30-0400 Systolic blood pressure 102 mm[Hg] Julian Matthews Other [employer] Other 08-02-2021 08:32-0400 Body height 175.26 cm Jean Saeed Naderer Work Phone: [employer] 250 DO Work Phone: 08-02-2021 08:32-0400 Body mass index (BMI) [Ratio] 28.8 kg/m2 Jean Saeed Naderer Work Phone: [employer] 250 DO Work Phone: 08-02-2021 08:32-0400 Body surface area Derived from formula 2.04 m2 Jean Saeed Naderer Work Phone: [email or web address] 250 DO Work Phone: 08-02-2021 08:32-0400 Body weight 88.45 kg Jean A Naderer Work Phone: [email or web address] 250 DO Work Phone: 08-02-2021 08:32-0400 Diastolic blood pressure 62 mm[Hg] Jean Saeed Naderer Work Phone: [facility] [employer] 250 DO Work Phone: 08-02-2021 08:32-0400 Heart rate 68 /min Jean A Naderer Work Phone: [facility] 250 DO Work Phone: 08-02-2021 08:32-0400 Systolic blood pressure 108 mm[Hg] Jean A Naderer Work Phone: [facility] 250 DO Work Phone: 07-14-2021 00:00-0400 60 1 Jean A Naderer Work Phone: [facility] 250 DO Work Phone: Comment on above: [id number] 04-30-2021 13:22-0500 Body height 175.26 cm Jean A Naderer Work Phone: [facility] 250 DO Work Phone: 04-30-2021 13:22-0500 Body mass index (BMI) [Ratio] 29.45 kg/m2 Jean A Naderer Work Phone: [facility] 250 DO Work Phone: 04-30-2021 13:22-0500 Body surface area Derived from formula 2.06 m2 Jean A Naderer Work Phone: [facility] 250 DO Work Phone: 04-30-2021 13:22-0500 Body weight 90.45 kg Jean A Naderer Work Phone: [facility] 250 DO Work Phone: 04-30-2021 13:22-0500 Diastolic blood pressure 90 mm[Hg] Jean A Naderer Work Phone: [facility] 250 DO Work Phone: 04-30-2021 13:22-0500 Heart rate 69 /min Jean A Naderer Work Phone: [facility] 250 DO Work Phone: 04-30-2021 13:22-0500 Systolic blood pressure 134 mm[Hg] Jean Saeed Naderer Work Phone: [facility] 250 DO Work Phone: 02-20-2021 14:06-0500 Body height 175.26 cm Jean Saeed Naderer Work Phone: [facility] 250 DO Work Phone: 02-20-2021 14:06-0500 Body mass index (BMI) [Ratio] 29.98 kg/m2 Jean Saeed Naderer Work Phone: [facility] 250 DO Work Phone: 02-20-2021 14:06-0500 Body surface area Derived from formula 2.08 m2 Jean Saeed Naderer Work Phone: [facility] 250 DO Work Phone: 02-20-2021 14:06-0500 Body weight 92.08 kg Jean Saeed Naderer Work Phone: [facility] 250 DO Work Phone: 02-20-2021 14:06-0500 Diastolic blood pressure 76 mm[Hg] Jean Christophe Naderer Work Phone: [facility] 250 DO Work Phone: 02-20-2021 14:06-0500 Heart rate 80 /min Jean Christophe Naderer Work Phone: [facility] 250 DO Work Phone: 02-20-2021 14:06-0500 Systolic blood pressure 110 mm[Hg] Jean Christophe Naderer Work Phone: [facility] 250 DO Work Phone: 02-06-2021 16:10-0500 Diastolic blood pressure 84 mm[Hg] Jean Christophe Naderer Work Phone: [facility] 250 DO Work Phone: 02-06-2021 16:10-0500 Systolic blood pressure 130 mm[Hg] Jean A Naderer Work Phone: [facility] 250 DO Work Phone: 02-06-2021 15:37-0500 Body height 175.26 cm Jean A Naderer Work Phone: [facility] 250 DO Work Phone: 02-06-2021 15:37-0500 Body mass index (BMI) [Ratio] 30.13 kg/m2 Jean A Naderer Work Phone: [facility] 250 DO Work Phone: 02-06-2021 15:37-0500 Body surface area Derived from formula 2.08 m2 Jean A Naderer Work Phone: [facility] [employer] 250 DO Work Phone: 02-06-2021 15:37-0500 Body weight 92.53 kg Jean A Naderer Work Phone: [facility] 250 DO Work Phone: 02-06-2021 15:37-0500 Diastolic blood pressure 90 mm[Hg] Jean A Naderer Work Phone: [facility] 250 DO Work Phone: 02-06-2021 15:37-0500 Heart rate 125 /min Jean A Naderer Work Phone: [facility] 250 DO Work Phone: 02-06-2021 15:37-0500 Systolic blood pressure 128 mm[Hg] Jean Nicholson Work Phone: [facility] 250 DO Work Phone: 11-30-2020 11:30-0400 Body height 175.26 cm Danna Violeta Other [employer] Other 11-30-2020 11:30-0400 Body mass index (BMI) [Ratio] 29.68 kg/m2 Danna Violeta Other [employer] Other 11-30-2020 11:30-0400 Body weight 91.17 kg Danna Violeta Other [employer] Other 11-30-2020 11:30-0400 Diastolic blood pressure 83 mm[Hg] Danna Violeta Other [employer] Other 11-30-2020 11:30-0400 Respiratory rate 20 /min Danna Violeta Other [employer] Other 11-30-2020 11:30-0400 SaO2% (BldA) [Mass fraction] 98 % Danna Violeta Other [employer] Other 11-30-2020 11:30-0400 Systolic blood pressure 126 mm[Hg] Danna Violeta Other [employer] Other Encounters Encounter Date Encounter Type Care Provider Facility Start: 12-26-2023 ambulatory Marino Colmenares ty:CHRISTIANO Werner Start: 03-04-2023 End: 03-04-2023 ambulatory Danna Violeta Facility:[facility] Start: 03-04-2023 End: 03-04-2023 ambulatory MD Jean Nicholson Work Phone: [facility] Work Phone: Start: 03-04-2023 End: 03-04-2023 Patient encounter procedure MD Jean Nicholson Work Phone: [facility] Work Phone: Start: 02-28-2023 End: 03-01-2023 ambulatory [facility] Start: 02-28-2023 End: 02-28-2023 Office outpatient visit 15 minutes Curtis Meléndez MD Work Phone: [facility] Comment on above: Low back pain, unspe cified back pain laterality, unspecified chronicity, unspecified whether sciatica present (Primary Dx) Start: 12-23-2022 End: 12-24-2022 ambulatory Marino SPEAR Facility:[facility] [place] Start: 12-23-2022 End: 12-23-2022 Patient encounter procedure Marino SPEAR [facility] Start: 12-09-2022 End: 12-09-2022 ambulatory [facility] Start: 11-19-2022 Patient encounter procedure Carmen Witt Work Phone: [facility] Work Phone: Start: 11-19-[address] Curtis Meléndez Facility:[id number] Start: 11-04-2022 End: 11-07-2022 Evaluation and management of inpatient [facility] 610 [id number] Start: 10-30-2022 End: 10-30-2022 ambulatory Danna Violeta Other [employer] Other Start: 10-30-2022 Office outpatient vi sit 25 minutes Danna Violeta [facility] Start: 10-22-2022 Patient encounter procedure Carmen Witt Work Phone: [facility] Work Phone: Start: 10-22-[address] Curtis Meléndez Facility:[id number] Start: 10-22-2022 Encounter for other preprocedural examination Dr. Curtis Meléndez [facility] Start: 10-21-[address] Carmen Witt Facility:[id number] Start: 10-21-2022 Encounter for preprocedural cardiovascular examination Dr. Curtis Meléndez [facility] Start: 10-21-2022 Encounter for preprocedural laboratory examination Dr. Curtis Meléndez [facility] Start: 09-19-2022 Patient encounter procedure Carmen Witt Work Phone: [facility] Work Phone: Start: 09-19-[address] Carmen Witt Facility:[id number] Start: 08-23-2022 Chart Update Carmen Witt Work Phone: [facility] Work Phone: Start: 08-23-2022 Patient encounter procedure Carmen Witt Work Phone: [facility] Work Phone: Start: 08-23-[address] Carmen Witt Facility:[id number] Start: 08-20-2022 End: 08-20-2022 ambulatory Danna Violeta Other [facility] [facility] [employer] Other Start: 08-20-2022 Office outpatient vi sit 25 minutes Danna Viloeta [facility] Start: 08-15-2022 End: 08-15-2022 Patient encounter procedure Bianka Garcia [facility] Start: 08-15-2022 End: 08-15-2022 ambulatory MD Jean Nicholson Work Phone: [facility] [employer] Other Start: 07-31-2022 Chart Update Carmen Witt Work Phone: [facility] 250 DO Work Phone: Start: 07-31-[address] Cecilio Go Facility:[id number] Start: 07-02-2022 End: 07-03-[address] IRAIS LORENZANA Facility:H1 Start: 06-05-2022 AUDIT Carmen Witt Work Phone: [facility] Work Phone: Start: 06-04-2022 Patient encounter procedure Carmen Álvarez Millicent Work Phone: [facility] 250 DO Work Phone: Start: 06-04-[address] Carmen Witt Facility: Start: 05-09-2022 End: 05-10-2022 ambulatory LAUREN BAUMANN . Facility:H1 Start: 04-19-2022 Rx Renewal Jean Nicholson Work Phone: [facility] 250 DO Work Phone: Start: 02-18-2022 End: 02-19-[address] BRITANY TSANG Facility:H1 Start: 02-07-2022 End: 02-08-2022 ambulatory LAUREN BAUMANN . Facility:H1 Start: 02-05-2022 End: 02-05-2022 ambulatory Danna Mcdaniel Other [facility] [employer] Other Start: 02-05-2022 Office outpatient vi sit 25 minutes Danna Mcdaniel [facility] Start: 12-20-2021 End: 12-21-[address] MARINO SPEAR . Facility:H1 Start: 12-11-2021 Office outpatient vi sit 25 minutes Jean Nicholson Work Phone: [facility] 250 DO Work Phone: Start: 12-11-[address] Jean Nicholson Facility: Start: 11-27-2021 End: 11-28-[address] LORENA ANDERSON . Facility:H1 Start: 11-27-2021 Rx Renewal Jean Nicholson Work Phone: [facility] 250 DO Work Phone: Start: 11-05-2021 End: 11-06-[address] BRITANY TSANG Facility:H1 Start: 10-17-2021 End: 10-18-[address] CARMEN WITT . Facility:H1 Start: 10-12-2021 Rx Renewal Jean Nicholson Work Phone: [facility] 250 DO Work Phone: Start: 10-09-2021 End: 10-10-2021 ambulatory KATHERINE MARTINEZ Facility:H1 Start: 08-30-2021 End: 08-31-2021 ambulatory LAUREN BAUMANN . Facility:H1 Start: 08-21-2021 End: 08-21-2021 ambulatory Danna Violeta Other [employer] Other Start: 08-21-2021 Office outpatient vi sit 25 minutes Danna Violeta [facility] Start: 08-16-2021 End: 08-16-2021 ambulatory Bianka Garcia Other [employer] Other Start: 08-16-2021 Telephone encounter Bianka Lira [facility] Start: 08-15-2021 End: 08-15-2021 ambulatory Julian Matthews Other [employer] Other Start: 08-15-2021 Office outpatient vi sit 25 minutes Julian Matthews [facility] Start: 08-02-2021 Office outpatient vi sit 25 minutes Jean Nicholson Work Phone: [facility] 250 DO Work Phone: Start: 07-20-2021 End: 07-20-2021 ambulatory Bianka Garcia Other [employer] Other Start: 07-20-2021 Telephone encounter Bianka Ruttino [facility] Start: 07-14-2021 End: 07-14-2021 ambulatory CYNDI SIBLEY Facility: Start: 04-30-2021 Office outpatient vi sit 25 minutes Jean Saeed Nadiwonar Work Phone: [facility] [employer] 250 DO Work Phone: Start: 03-26-2021 Rx Renewal Jean A Naderer Work Phone: [facility] [email or web address] 250 DO Work Phone: Start: 02-20-2021 Patient encounter procedure Jean A [facility]aderer [facility]: [facility] 250 DO Work Phone: Start: 11-30-2020 Office outpatient vi sit 25 minutes Danna Violeta [facility] Procedures Date Procedure Procedure Detail Performing Clinician Start: 02-28-2023 XR LUMBAR SPINE 2-3 VIEWS CURTIS MELÉNDEZ Start: 11-04-2022 Lumbar spinal fusion Keaton SPEAR Start: 12-20-2021 PSA screening LAUREN Olmstead Comment on above: Performed By: #### P SAD #### [facility] [address] [place] [address] Dr. Arielle Biswas Start: 07-14-2021 Operation for pulmon brian embolism Marino SPEAR Start: 03-21-2016 Radical prostatectomy P marino SPEAR Start: 01-15-2016 Cystoscopy Marino BATISTA Start: 01-15-2016 Transrectal biopsy o f prostate using ultrasound guidance Marino SPEAR Colonoscopy Jean A Naderer Work Phone: Comment on above: Feb 2017; Colonoscopy Marino SPEAR Extraction of cataract Mario SPEAR Operation on lung Jean A Nad erer Work Phone: Operative procedure on ankle Jean A Naderer Work Phone: Operative procedure on spinal structure Jean Saeed Naderer Work Phone: Procedure on neck Jean Saeed Nad erer Work Phone: Procedure on prostate Jean Saeed Naderer Work Phone: Prostatectomy Jean Saeed Naderer Work Phone: Tonsillectomy and adenoidectomy Jean Saeed Naderer Work Phone: Tooth extraction Marino LIANG Plan of Treatment Date Care Activity Detail Author Start: 01-03-2025 Pneumococcal Vaccine : 65+ Years (3 - PPSV23 or PCV20) Pneumococcal Vaccine: 65+ Years (3 - PPSV23 or PCV20) [facility] Start: 06-17-2023 End: 06-17-2023 Patient encounter procedure 06/17/2023 10:20 AM EDT Office Visit [facility] [address] [id number] Cecilio Go MD [address] [facility] [address], [address] [address] [facility] Start: 02-28-2023 End: 02-29-2024 XR Lumbar spine 2 or 3 Views [facility] Service Area Work Phone: Comment on above: Expected: 02/28/2023 , Expires: 02/29/2024 Start: 12-10-2022 FUV, Provider: Cecilio Go, Status: Pen, Time: 11:10 AM FUV, Provider: Cecilio Go, Status: Pen, Time: 11:10 AM -[place] [address] DO Work Phone: Start: 12-09-2022 FUV, Provider: Cecilio Go, Status: Pen, Time: 3:00 PM FUV, Provider: Cecilio Go, Status: Pen, Time: 3:00 PM [facility] Work Phone: Start: 12-09-2022 Patient encounter procedure [facility] [place] Start: 11-19-2022 Patient encounter procedure [facility] Start: 11-19-2022 POV, Provider: Curtis Meléndez, Status: Pen, Time: 1:30 PM POV, Provider: Curtis Meléndez, Status: Pen, Time: 1:30 PM [facility] [place] Work Phone: Start: 11-05-2022 End: 11-05-2023 [facility] Start: 11-04-2022 End: 11-05-2023 [facility] Comment on above: If oral and IV lucita cotics ordered, use oral first and only use IV if oral is ineffective or cannot take oral. Do NOT give oral and IV within one hour of each other unless specificaly ordered. If NO result from Se nokot. Do NOT use with Senok[employer]. Start: 11-04-2022 [facility], Provider: Curtis Meléndez, Status: Pen, Time: 7:30 AM [facility], Provider: Curtis Meléndez, Status: Pen, Time: 7:30 AM [facility] [place] Work Phone: Start: 10-22-2022 [facility], Provider: Curtis Meléndez, Status: Pen, Time: 1:30 PM [facility], Provider: Curtis Meléndez, Status: Pen, Time: 1:30 PM [facility] [place] Work Phone: Start: 09-24-2022 FUV, Provider: Curtis Meléndez, Status: Pen, Time: 1:30 PM [facility], Provider: Curtis Meléndez, Status: Pen, Time: 1:30 PM [facility] [place] Work Phone: Start: 08-23-2022 NPV, Provider: Curtis Meléndez, Status: Pen, Time: 1:15 PM NPV, Provider: Curtis Meléndez, Status: Pen, Time: 1:15 PM [facility] 250 DO Work Phone: Start: 08-15-2022 US scan of aorta US aorta [facility] Start: 08-15-2022 US Thoracic and abdominal aorta [facility] Start: 08-08-2022 ambulatory Ambulatory Facility:H 1 Start: 07-31-2022 [facility], Provider: FRANKIE LOYAI ULTRASOUND 01,[id number], Status: Pen, Time: 1:30 PM [facility], Provider: FRANKIE HHVI ULTRASOUND 01,[id number], Status: Pen, Time: 1:30 PM [facility] Work Phone: Start: 06-04-2022 FUV, Provider: Cecilio Go, Status: Pen, Time: 11:30 AM [facility]UV, Provider: Cecilio Go, Status: Pen, Time: 11:30 AM -[facility] 250 DO Work Phone: Start: 02-06-2022 FUV, Provider: Cecilio Go, Status: Pen, Time: 8:50 AM [facility]UV, Provider: Cecilio Go, Status: Pen, Time: 8:50 AM -[facility] 250 DO Work Phone: Start: 12-11-2021 FUV, Provider: Cecilio Go, Status: Pen, Time: 11:20 AM [facility]UV, Provider: Cecilio Go, Status: Pen, Time: 11:20 AM [facility] 250 DO Work Phone: Start: 04-30-2021 FUV, Provider: Cecilio Go, Status: Pen, Time: 1:20 PM [facility]UV, Provider: Cecilio Go, Status: Pen, Time: 1:20 PM -[facility] 250 DO Work Phone: Start: 02-15-2021 COVID-19 Vaccine (4 - Moderna series) COVID-19 Vaccine (4 - Moderna series) [facility] Start: 10-18-2005 Zoster Vaccines (1 o f 2) Zoster Vaccines (1 of 2) [facility] Start: 10-18-1977 DTaP/Tdap/Td Vaccine s (1 - Tdap) DTaP/Tdap/Td Vaccines (1 - Tdap) [facility] Start: 10-18-1973 Diabetes mellitus screening Diabetes Screening [facility] Start: 10-18-1973 Hepatitis C screening Hepatitis C Sc lori [facility] Start: 1955 Lipid panel Lipid Panel [facility] Start: 1955 Medicare Annual Wellness Visit Medicare Annual Wellness Visit (AWV) [facility] Start: 1955 Screening for malign ant neoplasm of colon [facility] Immunizations Immunization Date Immunization Notes Care Provider Rhys estevez 11-06-2022 influenza, high dose seasonal, preservative-free Carmen Hoy Other Phone: [facility] 12-26-2021 Fluad Quadrivalent 0 .5 ML Intramuscular Prefilled Syringe Jean Harrisr Work Phone: [facility] [employer] 984 DO Work Phone: 12-26-2021 influenza, seasonal, injectable Curtis Meléndez MD Work Phone: [facility] Work Phone: 12-21-2020 Pfizer-BioNTDinamundo COVID-19 Vacc 30 MCG/0.3ML Intramuscular Suspension Jean Harrisr Work Phone: [facility] 12-21-2020 pneumococcal conjuga te vaccine, 13 valent Jean Nicholson Work Phone: [facility] 12-21-2020 zoster vaccine recombinant Jean Nicholson Work Phone: [facility] DO Work Phone: 12-21-2020 zoster vaccine, unspecified formulation Curtis Meléndez MD Work Phone: [facility] Work Phone: 12-10-2020 Fluad Quadrivalent 0 .5 ML Intramuscular Prefilled Syringe Jean Saede [employer] Work Phone: [place] [address] DO Work Phone: 12-10-2020 influenza, seasonal, injectable Curtis Meléndez MD Work Phone: [facility] Work Phone: 06-21-2020 COVID-19 Vaccine Moderna - Documentation Purposes Only Danna Violeta Other [facility] [employer] Other 05-09-2020 COVID-19 Vaccine Moderna - Documentation Purposes Only Danna Violeta Other [facility] [employer] Other 01-04-2020 influenza, injectabl e, quadrivalent, preservative free Jean A Naderer Work Phone: [place] [address] DO Work Phone: 01-04-2020 influenza, seasonal, injectable Curtis Meléndez MD Work Phone: [facility] Work Phone: 01-04-2020 pneumococcal polysaccharide vaccine, 23 valent Jean A Naderer Work Phone: [facility] 12-20-2019 influenza, seasonal, injectable Jean A Naderer Work Phone: [facility] 10-25-2018 influenza, injectabl e, quadrivalent, preservative free Curtis Meléndez MD Work Phone: [facility] Work Phone: 10-25-2018 influenza, seasonal, injectable Jean A Naderer Work Phone: [place] [address] DO Work Phone: 11-24-2017 influenza virus vaccine, unspecified formulation Jean A Naderer Work Phone: [place] [address] DO Work Phone: 02-25-2016 pneumococcal polysaccharide vaccine, 23 valent Jean A Naderer Work Phone: [facility] Payers Date Payer Category Payer Self-pay [id number] 2022 Unknown 2020 Unknown [id number] [id number] 2020 Unknown [id number] 2.16.840 .[id number] 1959 Unknown [id number] 1955 Unknown [id number] 2.16.84 0.1.737769.3.579.2.593 1955 Unknown [id number] 2.16.84 0.1.441420.3.579.2.593 1955 Unknown [id number] 2.16.84 0.1.948523.3.579.2.593 1955 Unknown [id number] 2.16.84 0.1.681114.3.579.2.593 1955 Unknown [id number] 2.16.84 0.1.001875.3.579.2.593 1955 Unknown [id number] 2.16.84 0.1.936771.3.579.2.593 1955 Unknown [id number] 2.16.84 0.1.250879.3.579.2.593 1955 Unknown [id number] 2.16.84 0.1.758242.3.579.2.593 1955 Unknown [id number] 2.16.84 0.1.619780.3.579.2.593 1955 Unknown [id number] 2.16.84 0.1.957664.3.579.2.593 1955 Unknown [id number] 2.16.84 0.1.553278.3.579.2.593 1955 Unknown [id number] 2.16.84 0.1.549845.3.579.2.593 1955 Unknown [id number] 2.16. 840.1.283207.3.579.2.356 1955 Unknown [id number] 2.16. 840.1.387422.3.579.2.356 1955 Unknown [id number] 2.16.8 40.1.894029.3.579.2.1244 1955 Unknown [id number] 2.16.8 40.1.890824.3.579.2.1068 1955 Unknown [id number] 2.16.8 40.1.902136.3.579.2.1068 1955 Unknown [id number] 2.16.8 40.1.856847.3.579.2.1068 1955 Unknown [id number] 2.16.8 40.1.329341.3.579.2.1068 1955 Unknown [id number] 2.16.8 40.1.976309.3.579.2.1068 1955 Unknown [id number] 2.16.8 40.1.416236.3.579.2.1068 1955 Unknown [id number] 2.16.8 40.1.895077.3.579.2.1068 1955 Unknown [id number] 2.16.8 40.1.582000.3.579.2.727 1955 Unknown [id number] 2.16.8 40.1.711009.3.579.2.727 1955 Unknown [id number] 2.16.84 0.1.283919.3.579.2.1246 1955 Unknown [id number] 2.16.84 0.1.172493.3.579.2.1246 Medicare [id number] 2.1 6.840.1.440031.19 Medicare Bryan MCR PFFS [id number] Medicare [id number] Unknown [id number] 2.16.8 40.1.538090.3.579.2.531 Unknown [id number] 2.16.8 40.1.049224.3.579.2.531 Social History Date Type Detail Facility Start: 12-09-2022 Former smoker Former smoker [facility] 250 DO Work Phone: Start: 12-09-2022 Sex Assigned At F [facility] Start: 07-14-2021 End: 07-14-2021 Tobacco smoking status NHIS Never smoked tobacco (finding) [facility] Start: 1955 Sex Assigned At Male F [facility] Tobacco smoking consumption unknown [facility] Start: 12-18-2020 Tobacco smoking status Ex-smoker (finding) [facility] Start: 12-09-2022 Tobacco use and exposure Smokeless tobacco non-user [facility] Work Phone: Start: 12-09-2022 Alcohol intake Lifetime non-d lalo (finding) [facility] Work Phone: Start: 1955 Sex Assigned At Not on file [facility] Work Phone: Start: 02-18-2023 End: 02-28-2023 Exposure to SARS-CoV-2 (event) Not sure [facility] Functional Status Date Assessment Result Facility 12-23-2022 Functional Status N/A [facility] [place] Functional observable [facility] Mental Status Date Assessment Result Facility 11-06-2022 Cognitive functions [id number] [facility] Clinical Notes 11-30-2020 to 02-28-2023 Curtis Meléndez MD - 02/28/2023 1:15 PM EST Note Date & Type Note Facility 02-28-2023 History of Present illness Narrative Erik Morales is a 67 y.o. male who presents for Follow-up of the Lower Back (L3-4 Lateral lumbar Fusion above prior L4-5 Fusion/L2-3, L3-4 Midline Lami from 11/04/22/3 1/2 months out w/x-rays). HPI: 67-year-old gentleman 3-1/2 months out from lumbar fusion. L3-4 Lateral Fusion w/Instrumentation Laterally/L2-3, L3-4 Lami 11/04/22, He denies any fever chills nausea vomiting night sweats. He has no bowel or bladder complaints. Is here with a family member who is a helpful historian. Physical exam: Well-nourished, well kept.No lymphangitis or lymphadenopathy in the examined extremities. Gait normal. Can walk on heels and toes. Examination of the back shows no tenderness in the paraspinous musculature. There is no decreased range of motion There is good strength and no instability. Examination of the lower extremities reveals no point tenderness, swelling, or deformity. Range of motion of the hips, knees, and ankles are full without crepitance, instability, or exacerbation of pain. Strength is 5/5 throughout. No redness, abrasions, or lesions on extremities Gross sensation intact in the extremities. Affect normal. Alert and oriented 3. Coordination normal. Imaging studies: We ordered and reviewed AP lateral plain films of the lumbar spine. Assessment: 67-year-old gentleman here for follow-up. He is 3 months out from an L3-4 Lateral Fusion w/Instrumentation Laterally/L2-3, L3-4 Lami. Overall he says he is doing much better today, he thinks he is 80% better than he was before surgery. He is engaging in most activities that he likes up to the limitations of his surgical restrictions. He feels like he is improving. He has been wearing his brace as instructed and following postop restrictions. Plan: For complete plan and/or surgical details, please refer to Dr. Meléndez's portion of this split dictation. In a [id number] encounter, I performed a history and physical examination, discussed pertinent diagnostic studies if indicated, and discussed diagnosis and management strategies with both the patient and the midlevel provider. I reviewed the midlevel's note and agree with the documented findings and plan of care. Patient doing quite well after L3-4 lateral lumbar fusion with a laminectomy. He is at least 80% better. Happy with how his legs feels. No bowel or bladder changes. X-rays look good with good positioning of cage and lateral plate and screws. We will let him engage in 50 as tolerated. He says when he stands up without the brace he feels a little tilted and would not mind some physical therapy. Therefore, we will get him into some physical therapy. Will see him back in 3 months for AP lateral x-rays of the lumbar spine. documented in this encounter [facility] Work Phone: 12-23-2022 Hospital Discharge instructions Patient Education 12/23/2022 11:56:06 Prostate Cancer Screening Prostate Cancer Screening Prostate cancer screening is testing that is done to check for the presence of prostate cancer in men. The prostate gland is a walnut-sized gland that is located below the bladder and in front of the rectum in males. The function of the prostate is to add fluid to semen during ejaculation. Prostate cancer is one of the most common types of cancer in men. Who should have prostate cancer screening? Screening recommendations vary based on age and other risk factors, as well as between the professional organizations who make the recommendations. In general, screening is recommended if: You are age 50 to 70 and have an average risk for prostate cancer. You should talk with your health care provider about your need for screening and how often screening should be done. Because most prostate cancers are slow growing and will not cause , screening in this age group is generally reserved for men who have a 10- to 15-year life expectancy. You are younger than age 50, and you have these risk factors: ?Having a father, brother, or uncle who has been diagnosed with prostate cancer. The risk is higher if your family member's cancer occurred at an early age or if you have multiple family members with prostate cancer at an early age. ?Being a male who is Black or is of [place] or sub-Saharan descent. In general, screening is not recommended if: You are younger than age 40. You are between the ages of 40 and 49 and you have no risk factors. You are 70 years of age or older. At this age, the risks that screening can cause are greater than the benefits that it may provide. If you are at high risk for prostate cancer, your health care provider may recommend that you have screenings more often or that you start screening at a younger age. How is screening for prostate cancer done? The recommended prostate cancer screening test is a blood test called the prostate-specific antigen (PSA) test. PSA is a protein that is made in the prostate. As you age, your prostate naturally produces more PSA. Abnormally high PSA levels may be caused by: Prostate cancer. An enlarged prostate that is not caused by cancer (benign prostatic hyperplasia, or BPH). This condition is very common in older men. A prostate gland infection (prostatitis) or urinary tract infection. Certain medicines such as male hormones (like testosterone) or other medicines that raise testosterone levels. A rectal exam may be done as part of prostate cancer screening to help provide information about the size of your prostate gland. When a rectal exam is performed, it should be done after the PSA level is drawn to avoid any effect on the results. Depending on the PSA results, you may need more tests, such as: A physical exam to check the size of your prostate gland, if not done as part of screening. Blood and imaging tests. A procedure to remove tissue samples from your prostate gland for testing (biopsy). This is the only way to know for certain if you have prostate cancer. What are the benefits of prostate cancer screening? Screening can help to identify cancer at an early stage, before symptoms start and when the cancer can be treated more easily. There is a small chance that screening may lower your risk of dying from prostate cancer. The chance is small because prostate cancer is a slow-growing cancer, and most men with prostate cancer from a different cause. What are the risks of prostate cancer screening? The main risk of prostate cancer screening is diagnosing and treating prostate cancer that would never have caused any symptoms or problems. This is called overdiagnosisand overtreatment. PSA screening cannot tell you if your PSA is high due to cancer or a different cause. A prostate biopsy is the only procedure to diagnose prostate cancer. Even the results of a biopsy may not tell you if your cancer needs to be treated. Slow-growing prostate cancer may not need any treatment other than monitoring, so diagnosing and treating it may cause unnecessary stress or other side effects. Questions to ask your health care provider When should I start prostate cancer screening? What is my risk for prostate cancer? How often do I need screening? What type of screening tests do I need? How do I get my test results? What do my results mean? Do I need treatment? Where to find more information The [place] [employer]: www.cancer.org [employer] [employer]: www.auanet.org Contact a health care provider if: You have difficulty urinating. You have pain when you urinate or ejaculate. You have blood in your urine or semen. You have pain in your back or in the area of your prostate. Summary Prostate cancer is a common type of cancer in men. The prostate gland is located below the bladder and in front of the rectum. This gland adds fluid to semen during ejaculation. Prostate cancer screening may identify cancer at an early stage, when the cancer can be treated more easily and is less likely to have spread to other areas of the body. The prostate-specific antigen (PSA) test is the recommended screening test for prostate cancer, but it has associated risks. Discuss the risks and benefits of prostate cancer screening with your health care provider. If you are age 70 or older, the risks that screening can cause are greater than the benefits that it may provide. This information is not intended to replace advice given to you by your health care provider. Make sure you discuss any questions you have with your health care provider. Document Revised: 08/06/2021 Document Reviewed: 08/06/2021 [facility] Patient Education 2022 GoodApril. Follow Up Care 12/21/2021 12:26:12 With:RAINER JIMENEZ, Marino Calabrese, URL Address: [facility] [address] , [place] [address]- [phone] When: Unknown Comments:1 yr w/ PSA [facility] 11-07-2022 Note Send Summary: Discharge Summary Providers: Provider RoleProvider Name Carmen Conner Robert ConsultingKher, Chirag PrimaryHoy, Douglas M Note Recipients: Curtis Meléndez MD - [id number] [Preferred] Carmen Witt MD - [id number] [] Cayden Flores MD Discharge: Summary: Admission Date: .04-Nov-2022 05:14:00 Discharge Date: 07-Nov-2022 Attending Physician at Discharge: Curtis Meléndez Admission Reason: Lumbar stenosis and spondylolisthesis(1) Final Discharge Diagnoses: Back pain Procedures: Date: 04-Nov-2022 13:07:00 Procedure Name: 1. 2. 3. 4. 5. Condition at Discharge: Satisfactory Disposition at Discharge: .Home Vital Signs: T PRBPMAPSpO2 [id number]% Date/Time11/07 8: 8: 8:5611/07 8: 21: 8:56 Range(36.7C - 37.1C ) (63 - 97 ) (16 - 18 ) (113 - 145 )/ (69 - 81 ) (97 - 108 ) (94% - 96% ) Highest temp of 37.1 C was recorded at 11/06 8:18 Date: Weight/Scale Type:Height: 04-Nov-2022 05:4190.4 kg / standing Hospital Course: 67 year old male presented to the clinic with back pain. Risks verus benefits were discussed and it was decided to proceed with a laminectomy and fusion procedure. His hospitalization was without complication. He will be discharged to home in stable condition. Discharge instructions Remove the dressing on your back on 11/11/22 Use the pain medication as needed Use the incentive spirometer ten times every hour Use ice every hour for 15-30 minutes Wear robert hose for three weeks Immunizations: Immunizations: 06-Nov-2022 .Influenza- Influenza Virus: Immunizations, 06-Nov-2022 Discharge Information: and Continuing Care: Lab Results - Pending: None Radiology Results - Pending: None Discharge Instructions: Activity: activity as tolerated. May shower.. May not return to school/work until follow-up visit with. May not drive until follow-up visit. Weight-bearing Instructions: full weight bearing. log roll into and out of bed Nutrition/Diet: resume normal diet Wound Care: Wound Site: back Wound Type: surgical incision Change Dressin time remove dressing on 11/11/22 Instructions: no lotions, creams, or tub soaks Additional Orders: Additional Instructions: Discharge instructions Remove the dressing on your back on 11/11/22 Use the pain medication as needed Use the incentive spirometer ten times every hour Use ice every hour for 15-30 minutes Wear the surgical hose for three weeks Follow Up Appointments: Follow-Up Appointment 01: Physician/Dept/Service: Dr. Meléndez Reason for Referral: back Call to Schedule in: 2 weeks, please call ahead and schedule appointment Location: [address] [facility] Phone Number: [phone] Discharge Medications: Home Medication furosemide 20 mg oral tablet - 1 tab(s) orally once a day metoprolol tartrate 25 mg oral tablet - 1 tab(s) orally 2 times a day---AWARE TO TAKE MORNING OF PROCEDUE WITH A SIP OF WATER omeprazole 40 mg oral delayed release capsule - 1 cap(s) orally once a day oxyBUTYnin 10 mg/24 hr oral tablet, extended release - 1 tab(s) orally once a day Potassium Chloride (Dbu-Pxfa-Hrw 10) 10 mEq oral tablet, extended release - 1 tab(s) orally once a day baclofen 10 mg oral tablet - 1 tab(s) orally once a day atorvastatin 40 mg oral tablet - 1 tab(s) orally once a day (at bedtime) Multiple Vitamins oral tablet - 1 tab(s) orally once a day nortriptyline 25 mg oral capsule - orally once a day lisinopril 20 mg oral tablet - 1 tab(s) orally once a day. Resume 11/08/22 Eliquis 5 mg oral tablet - 1 tab(s) orally 2 times a day. Resume 11/11/22 CeleBREX 200 mg oral capsule - 1 cap(s) orally 2 times a day x 14 days Colace 100 mg oral capsule - 1 cap(s) orally 2 times a day x 30 days PRN Medication ondansetron 4 mg oral tablet, disintegrating - 1 tab(s) orally every 8 hours x 7 days, As Needed oxycodone-acetaminophen 5 mg-325 mg oral tablet - 1 tab(s) orally every 6 hours x 7 days, As Needed DNR Status: Code StatusCode Status order at time of discharge: Full Code Electronic Signatures: Gilda Mcmahon (QUALITY ASSURANCE PROJECT MANAGER-PRINCIPAL LAW CLERK) (Signed 07-Nov-2022 09:26) Authored: Send Summary, Summary Content, Immunizations, Ongoing Care, DNR Status, Note Completion Last Updated: 07-Nov-2022 09:26 by Gilda Mcmahon (QUALITY ASSURANCE PROJECT MANAGER-PRINCIPAL LAW CLERK) References: 1. Data Referenced From Consult-General Internal Medicine 04-Nov-2022 16:29 [facility] 11-04-2022 Note Post Operative Note: Post-Procedure Diagnosis: Lumbar stenosis and spondylolisthesis Procedure: 1. 2. 3. 4. 5. Surgeon: Ángela Resident/Fellow/Other Equity Director: Alice Estimated Blood Loss (mL): 100 cc Specimen: no Findings: Lumbar stenosis and spondylolisthesis Operative Report Dictated: Dictation: not applicable - note contains Operative Report Note Recipients: Curtis Meléndez MD - [id number] [Preferred] Carmen Witt MD - [id number] [] Operative Report: Preoperative diagnosis: L2-3 and L3-4 stenosis. L3-4 spondylolisthesis. Prior L4-5 and L5-S1 instrumented fusion. Lumbar spondylosis Postop diagnosis: Above Procedure: L2-3 and L3-4 laminectomy decompressing the L2, L3 and L4 vertebral segments. L3-4 lateral lumbar interbody fusion. L2-3 and L3-4 posterior lateral fusion. L3-4 lateral instrumentation. Thermal ablation of the medial nerve branch supplying the L2-3 and L3-4 bilateral facets. Surgeon: Curtis Meléndez M.D. Asst.: Sonu HillThe physician retail administrative assistant was present through the entire case. Given the nature of the disease process and the procedure to be performed a skilled surgical supplies sterilizer was necessary during the case. The retail administrative assistant was necessary in order to hold retractors and directly assist in the operation. A certified detention deputy was at the back table managing instruments and supplies for the surgical case. Anesthesia: Gen. HPI: The patient had leg pain from the above-described condition. All of the risks, benefits, and potential complications for operative and nonoperative treatment were discussed at length with the patient. Risks of operative intervention include, but are not limited to: Anesthesia complications, excessive blood loss, infection, damaged to uninjured structures including, but not limited to, the dural sac and nerve roots, blood clots, and lack of improvement or worsening of symptoms. These complications could result in , permanent disability, or need for reoperation. The patient completely understood those risks and wished to proceed with operative intervention. Operative implants: Globus Jelena expandable interbody cage. Globus Signify bone graft. Actifuse putty bone graft Operative procedure: The patient was wheeled from the preanesthesia care unit to the theater. The patient was placed in supine position and all bony prominences were well-padded. For the entire procedure anesthesia maintained control of the patient's head neck. The patient was then rolled to the lateral decubitus position with the left side up. Axillary roll was placed just distal to the axilla. Downside was well-padded. A pillow was placed between the patient's legs. The patient was then taped in a vertical position using tape across the thorax and across the pelvis. Tape was then placed from the greater trochanter down along the knee which was flexed to 60 around the table and up back along across the foot leg and knee and back around the patient's pelvis. This nicely secured the patient to the bed. The bed was then cracked at the patient's waist. This was done minimally. AP lateral x-rays confirmed appropriate positioning of the patient. The bed was manipulated to get perfect perpendicular AP and lateral x-rays with the C-arm. Using a lateral x-ray a wire was then used to davon out the operative level on the skin. Side was then prepped and draped in normal sterile fashion. Timeout was performed, site verification marking was verified, and appropriate antibiotic administration was confirmed. Next, a longitudinal incision over the operative field was performed. Dissection was carried down through the skin with a knife. Bovie was used to dissect down through the superficial fat. Pickups and scissors were used to dissect down to expose the abdominal musculature and the external oblique fascia. Pickups and scissors were used to dissect down through the external oblique to identify the internal oblique. Dissection was taken down to the internal oblique to expose the deep transverse abdominis. Dissection was taken down through the transversus abdominis in line with its fibers. No superficial nerves were identified. Dissection was taken down transversus abdominis fascia into the retroperitoneal space. The retroperitoneal fat was then swept gently from posterior to anterior exposing the psoas muscle. Kitners were then used to spread the psoas muscle in line with its fibers over the L3-4 disc space. Using the small dilator after the disc space was identified x-ray was then used to place a guidewire into the slightly posterior aspect of the disc space centered on lateral x-ray. Spinal cord monitoring was used for the small dilator appropriate readings were obtained. A larger dilator was then placed in appropriate spinal cord monitoring readings were obtained as well. Next, the retractor was placed over the large dilat (more content not included)... [facility] 11-04-2022 Reason for referral (narrative) Reason for Referral: Surgery 11.04.2022 L3-4 lateral interbody fusion, L2-3 and L3-4 laminectomy and posterior lateral fusion, L3-4 lateral instrumentation, thermal ablation of median nerve to L2-3 and L3-4 [facility] 10-30-2022 Evaluation note Encounter Date Diagnosis Assessment Notes Oct, Diastolic dysfunction (ICD-10 - I51.89) Continue all recommendati on/medicatio ns per your Thermal Cutter Helper . Oct, ILD (interstitial lung disease) (ICD-10 - J84.9) Pulmonary Function Test as scheudled prior to next office appointment. [facility] Other 07-27-2023 History of Present illness NarrativeGarelena is a 67-year-old gentleman here for preop visit. He is scheduled to undergo an L3-4 lateral fusion with an L3-4 lateral plate and then a flip for an L2-3 and L3-4 midline laminectomy with posterolateral fusion. Pre and postoperative information and instructions were given to the patient. The risks and benefits were discussed with Dr. Meléndez September 19, 2022. The brace was fitted today and brace instructions were given. Lifting, twisting, and bending restrictions were discussed. Postoperative care was discussed. All questions were answered. Patient is ready to proceed with surgery. He will stop his Eliquis according to his doctor four days before the surgery and for four days after. Hedenies any fever, chills, nausea, vomiting, or night sweats. He has no bowel or bladder complaints.-[facility] Work Phone: [phone] Evaluation note* Encounter Date Diagnosis Assessment Notes Treatment Notes Treatment Clinical Notes Jul, Diastolic dysfunction (ICD-10 - I51.89) Jul, ILD (interstitial lung disease) (ICD-10 - J84.9) I reviewed results and images of your Chest CT completed at [facility] 10/2021 and 01/2022. There is evidence of very mild fibrosis (scarring). Continue with physcial activity as you are. [facility] Other 06-22-2023 Evaluation note* Encounter Date Diagnosis Assessment Notes Treatment Notes Treatment Clinical Notes Jul, Abdominal aortic aneurysm (AAA) without rupture, unspecified part (ICD-10 - I71.40) This patient has a very small AAA. We reviewed his ultrasound findings today which show abdominal aortic aneurysm 3.4 cm in greatest diameter. He has no abdominal complaints whatsoever. We will continue to follow him along and see him again next year with repeat studies. He denies any family history of AAA. He is a non-smoker and his blood pressure is well controlled. His risk for growth are minimum. If aneurysm remains stable will consider every 2-year follow-up from that point. He verbalizes understanding of all discussion, agrees with plan, and denies any questions. [facility] Other 03-16-2023 NoteCONSULTATION CONSULTATION DATE: 05/09/2022 HISTORY: This is a 66-year-old gentleman who returns to the Pain Clinic for a three month follow up for chronic lower back pain. One year ago, the patient did have a #1 and #2 successful medial branch block to his lower lumbar, but was unable to progress to radiofrequency ablation due to multiple PEs. Patient did have a long hospitalization, is currently on Eliquis and not able to hold it for the procedure, and is currently under the care of a director home health. Most recent physician appointment does show that his lungs are slowly improving. He does have a Cardiology appointment on 06/13/2022, and at that time, he will discuss with the senior investment analyst regarding possible use of sedation and holding Eliquis for a procedure. He does rate his pain 3/10 today. It does increase with standing, walking, lifting and physical activity. Medications include ibuprofen 200 mg daily, baclofen 10 mg q.h.s., nortriptyline 25 mg q.h.s., Eliquis, melatonin and Percocet 5/325 b.i.d. He denies any new pain pattern or vasomotor weakness. Patient's REVIEW OF SYSTEMS / PAST MEDICAL HISTORY / ALLERGIES and IMAGES have been reviewed and noted on the chart. PHYSICAL EXAM: VITAL SIGNS: Blood pressure is 139/79. Heart rate is 116. Temperature is 96.8. He is 5'9 , weighs 94 kg. GENERAL IMPRESSION: Pleasant, appropriate, in no acute distress. FOCUSED EXAM - BACK: Range of motion is functional in lateral rotation and flexion/extension. Paravertebral muscles are non-spasmodic. Mild spinal axial pain reproduced upon deep compression along the lumbar facets of L2, L3 and L4, L5, with pain that does not radiate below the knees. MUSCULOSKELETAL: Motor is 4/5 bilaterally. Patient walks unassisted with an antalgic gait. Slight muscle atrophy noted bilateral quadriceps. NEUROLOGICAL: Radicular sensory is intact. Negative polyneuropathy. 2/2 patellar reflexes. DIAGNOSIS: Spinal axial lower back pain, lumbar spondylosis and lumbar degenerative disc disease. PLAN: We will refill his Percocet 5/325 b.i.d. He is to continue his heat application with a menthol heat rub, as well as increasing activity as tolerated daily. U-Tox will be obtained in the clinic today as well. We will see him in three months' time unless otherwise indicated. Patient agrees with this care.[id number] NoteCONSULTATION CONSULTATION DATE: 02/07/2022 HISTORY OF PRESENT ILLNESS: This is a 66-year-old gentleman, well known to our Pain Clinic, who returns for a three month follow up and medication management appointment. He does have chronic lower back pain and was receiving lumbar medial branch blocks in the past, until he had complications from a blood clot. He is still being followed up with Pulmonology in [facility] and, most recently, they feel he is going hypoxic during his sleep. He has additional oxygen sleep studies pending. He has been diagnosed with cystic fibrosis. In regards to his back, he feels that his pain is managed with his medications. He rates his pain 3/10 today, aggravated by standing, walking, pushing, pulling and lifting. He does use heat, which he finds helpful. Medications include Percocet 5/325 b.i.d., nortriptyline 25 mg q.h.s., baclofen 10 mg q.h.s. He denies any new pain pattern. Patient's REVIEW OF SYSTEMS / PAST MEDICAL HISTORY / ALLERGIES and IMAGES have been reviewed and noted in the chart. PHYSICAL EXAM: VITAL SIGNS: Blood pressure is 153/93. Heart rate is 92. Temperature is 96.9. He is 5'9 , weighs 92 kg. GENERAL APPEARANCE: Pleasant, appropriate, no acute distress. FOCUSED EXAM - BACK: Range of motion is functional in lateral rotation and flexion/extension. Minimal spinal axial pain is reproduced with deep compression along the lower lumbar facets of L3, L4, L5. Pain is non-radiating below the knee. Mohsen's point non-tender bilaterally, with negative FABERs and compression tests. MUSCULOSKELETAL: Slight muscle atrophy diffusely noted to bilateral lower extremities. Patient does walk with a slow but steady gait, unassisted. Muscle tone is fair. NEUROLOGICAL: Negative polyneuropathy. Patient is cognitively intact. Bilateral reflexes are +1. DIAGNOSIS: Chronic lower back pain, lumbar spondylosis, lumbar degenerative disc disease. PLAN: We will refill his Percocet and nortriptyline at the set dose and frequency. There will be no additional changes today. I did encourage him to increase the amount of walking exercise he does in addition to home stretches. He will be seen in the clinic for follow up in three months, unless otherwise indicated.[id number]* Encounter Date Diagnosis Assessment Notes Treatment Notes Treatment Clinical Notes Jan, Diastolic dysfunction (ICD-10 - I51.89) Jan, ILD (interstitial lung disease) (ICD-10 - J84.9) I will look at Chest CT from [place] and let you know if any further testing is needed. Jan, Dyspnea (ICD-10 - R06.00) [facility] Other 10-04-2022 NoteCONSULTATION CONSULTATION DATE: 11/27/2021 CHIEF COMPLAINT: Low back pain. HISTORY OF PRESENT ILLNESS: This is a 66-year-old gentleman who has been seen chronically with regards to his pain management. Currently, the patient is being managed with his Percocet 5/325 b.i.d. He rates the pain as a 4/10, a stabbing sensation. Activities aggravate the pain. Lifting, carrying also aggravate the pain. The patient takes Motrin, temazepam, baclofen, nortriptyline and Percocet, along with a recent diagnosis of cystic fibrosis for which he is taking prednisone and is on Eliquis. The patient also takes tizanidine 4 mg h.s. The patient is under the care of Dr. Go, senior investment analyst, who has suggested that the patient not hold the Eliquis for any treatment right now and, as such, we will maintain a conservative approach. IMPRESSION: As such, the patient's current working diagnosis is chronic low back pain, new diagnosis of cystic fibrosis. A recent CT of the lung was performed and the patient is under the care of [facility]. The patient is also under anticoagulation therapy. PLAN: We will refill the patient's Percocet 5/325 b.i.d. The patient will be returning in clinic as needed. The patient has had a rhizotomy, radiofrequency along the low back and, as such, is stable with regards to his low back.[id number] NoteCONSULTATION CONSULTATION DATE: 08/30/2021 This is a pleasant 65-year-old gentleman returning to the clinic for a 3-month follow-up. He was last seen on 05/31/2021 which at that time he was having increased back pain. The patient currently takes Percocet 5/325 b.i.d. which he does need a refill of today. Since his last office visit, the patient was brought to the emergency department with upper thoracic back pain and shortness of breath. The patient states he had a friend drive him to the emergency room as he thought he was having a heart attack. Within the past he had been diagnosed with an ME in addition to an aneurysm and cystic fibrosis. The patient was worked up in the emergency department and it was found that he had multiple PEs in his lungs and in his right lower leg. The patient was transferred to [facility] where the large PE was surgically removed. He was in the ICU for a number of days and has been discharged on Eliquis. The patient is overall doing well but needs to build up endurance with his breathing. In addition to Eliquis he was on Percocet 5/325 b.i.d., temazepam 30 mg q. h.s. and tizanidine 4 mg q.h.s. They did put him on prednisone and a statin. Activities that aggravate his pain are standing, walking, evening hours, lifting, housework and bending. Currently the patient is doing just minimal walking exercise to build up his pulmonary endurance as directed by his cardiovascular surgeon. The patient does apply heat to his back which decreases his pain. REVIEW OF SYSTEMS, PAST MEDICAL HISTORY, ALLERGIES AND IMAGES: Have been reviewed and noted in the chart. PHYSICAL EXAM: VITAL SIGNS: Blood pressure 143/87, heart rate is 85, temperature is 98.2. Height is 5'9 , weighs 87.7 kg. GENERAL APPEARANCE: Pleasant, appropriate, no acute distress. Color is good and pink, able to speak in full but short sentences. FOCUSED EXAM: BACK: Range of motion is functional, lateral rotation flexion extension. No reproduction of spinoaxial pain to direct compression along the posterior elements of the facets. Mohsen's point mildly tender to the left. The patient with no radiating pain. MUSCULOSKELETAL: Diffuse muscle atrophy noted to bilateral lower extremities. The patient walks with an antalgic gait. Does not use assistive device. NEUROLOGICAL: Radicular sensory is intact. Negative polyneuropathy. Bilateral patellar reflexes are +1. DIAGNOSIS: Chronic lower back pain, lumbar radiculitis and lumbar degenerative disk disease. PLAN: We will just continue to medically manage him at that time and hold off on any future interventions until cleared by his vascular and cardiac physicians. We will refill her Percocet 5/325 b.i.d. and maintain him on tizanidine 4 mg q.h.s. He was encouraged to continue with his short walks in addition to vitamins. The patient agrees to the plan of care and will be followed up in three months' time. [facility] Signed and Approved by: LAUREN BAUMANN . 09/06/2021 09:46:00[facility]06-28-2022 Evaluation note* Encounter Date Diagnosis Assessment Notes Treatment Notes Treatment Clinical Notes Jul, Diastolic dysfunction (ICD-10 - I51.89) Jul, ILD (interstitial lung disease) (ICD-10 - J84.9) Begin taking (1/2 tablet) 5mg of prednisone for next 2-3 weeks then stop prednisone completely. Call office if you have questions. Your pulmonary function test showed no obstruction or restriction. Increase daily physcial activity....walk 3-4x a day to start. [employer] Other 06-22-2022 Evaluation note* Encounter Date Diagnosis Assessment Notes Treatment Notes Treatment Clinical Notes Jul, Abdominal aortic aneurysm (AAA) 3.0 cm to 5.5 cm in diameter in male (ICD-10 - I71.4) This patient is a small infrarenal abdominal aortic aneurysm which is currently stable. I recommend repeat abdominal duplex in 1 year for surveillance. There is no indication for any operative repair at this time. Jul, Acute saddle pulmonary embolism with acute cor pulmonale (ICD-10 - I26.02) With regards to the PE the patient should remain on anticoagulation at this time probably for life. As long as he tolerates anticoagulation I suggest he continue its use. The risk-benefit ratio favors long-term anticoagulation for this patient. He understands agrees the plan all his questions were addressed. [facility] Other 10-07-2021 Evaluation note* Encounter Date Diagnosis Assessment Notes Treatment Notes Treatment Clinical Notes Nov, Abnormal chest CT (ICD-10 - R93.89) There is evidence of small amount of scarring to bottom of lungs. Will trial 4 weeks of prednisone to see if this helps with shortness of breath. Nov, ILD (interstitial lung disease) (ICD-10 - J84.9) Nov, Sleep apnea (ICD-10 - G47.30) No evidence of sleep apnea on testing completed. Nov, Dyspnea (ICD-10 - R06.00) Nov, Other Try Mylanta for acid reflux. [facility] Other Evaluation + Plan note Future Appointments Appointment Date:12/26/2023 11:00:00 AM Scheduled Provider:Marino SPEAR MD Location:[facility] Appointment Type:URO Office Visit Diagnostic Tests Pending * PSA Total 12/23/22 [facility] evaluation noteNo InformationNort [employer] Other Evaluation noteNo assessment information available [facility] Work Phone: Evaluation note* Constitutional: Well developed, awake/alert/oriented x3, no distress, alert and cooperativeRespiratory/Thorax: Patent airways, CTAB, normal breath sounds with good chest expansion, thorax symmetricHead/Neck: Neck supple, no apparent injury, thyroid without mass or tenderness, No JVD, trachea midline, no bruitsENMT: mucous membranes moist, no apparent injury, no lesions seenEyes: PERRL, EOMI, clear scleraSkin: Warm and dry, no lesions, no rashesMusculoskeletal: Lumbar dressing clean, dry, and intact. Sensations intact and pedal pulses palpable.Genitourinary: No Discharge, vesicles or other abnormalitiesGastrointestinal: Nondistended, soft, non-tender, no rebound tenderness or guarding, no masses palpable, no organomegaly, +BS, no bruitsCardiovascular: Regular, rate and rhythm, no murmurs, 2+ equal pulses of the extremities, normal S 1and S 2Extremities: normal extremities, no cyanosis edema, contusions or wounds, no clubbingPsychological: Appropriate mood and behaviorNeurological: alert and oriented x3, intact senses, motor, response and reflexes, normal strength [facility]* Diagnosis Low back pain, unspecified back pain laterality, unspecified chronicity, unspecified whether sciatica present- Primary documented in this encounter [facility] Work Phone: History general Narrative - Reported* Type Description Date Medical History COPD Medical History asthma Medical History sleep apnea (negative PSG) Medical History aaa Medical History pe Surgical History spine 2001 Surgical History neck 2004 Surgical History prostate biopsy 2017 Surgical History dental extraction Hospitalization History as above Hospitalization History pe 2021 [facility] Other Hissodl general Narrative - Reported* Type Description Date Medical History NOEL Medical History COPD Medical History asthma Medical History sleep apnea Surgical History spine 2001 Surgical History neck 2004 Surgical History prostate biopsy 2017 Hospitalization History as above [facility] Other Hissgqi general Narrative - Reported* Type Description Date Medical History COPD Medical History asthma Medical History sleep apnea (negative PSG) Surgical History spine 2001 Surgical History neck 2004 Surgical History prostate biopsy 2017 Hospitalization History as above [facility] Other History general Narrative - Reported* Type Description Date Medical History COPD Medical History asthma Medical History sleep apnea (negative PSG) Medical History aaa Medical History pulmonary embolism Surgical History spine 2001 Surgical History neck 2004 Surgical History prostate biopsy 2017 Surgical History dental extraction Hospitalization History as above Hospitalization History pulmonary embolism [facility] 06/2021 [facility] Other Hisastb general Narrative - Reported* Type Description Date Medical History COPD Medical History asthma Medical History sleep apnea (negative PSG) Medical History aaa Medical History pulmonary embolism Medical History interstitial lung disease Medical History diastolic dysfunction Surgical History spine 2001 Surgical History neck 2004 Surgical History prostate biopsy 2017 Surgical History dental extraction Hospitalization History as above Hospitalization History pulmonary embolism [facility] 06/2021 [facility] Other History of Present illness NarrativeErik is a new patient to us, new to the practice. He comes to the office complaining of low back pain. It will go down to both of his legs, especially when he starts to walk. He cannot stand or walkfor long periods of time. He feels like there is a ball in the middle of his back. When he walks, it radiates out to the sides. He has no bowel or bladder complaints. No saddle anesthesia. No trauma,accidents or falls to cause it. He had surgery back in 1998, he thinks at the L4-L5 level. It started about two months ago. He has had no recent treatment for it. No therapy. He has had epidurals about four months ago, and he got a couple of hours of relief. Otherwise, no therapy. He has had MRIs and x-rays done. He goes to the pain management center down in [place].[facility] Work Phone: Hospital course Narrative No data available for this section [facility] Discharge instructions* Activity:activity as tolerated. May shower. May not return to school/work until follow-up visit with Instructions:. May not drive until follow-up visit. Weight-bearing Instructions: full weight bearing. Other activity instructions: log roll into and out of bed. * Wound Care 1:Wound Site: backWound Type: surgical incisionChange Dressin time, remove dressing on 11/11/22Instructions: no lotions, creams, or tub soaks * Additional Orders:Additional Instructions: Discharge instructionsRemove the dressing on your back on 11/11/22Use the pain medication as neededUse the incentive spirometer ten times every hourUse ice every hour for 15-30 minutesWear the surgical hose for three weeks * Call Provider If:Breathing faster than normal. Breathing harder than normal or having retractions. Fever of 100.4 F (38 C) or higher. Chills. Drinking less than normal. Urinating less than normal, over 1 day. Acting very sleepy and difficult to awaken. Vomiting (throwing up) and not able to eat or drink for 12 hours. 3 or more loose, watery bowel movements in 24 hours (diarrhea). Any new concerning symptoms. * Follow Up Appointment 1:Physician/Dept/Service: Dr. Felton for Referral: backCall to Schedule in: 2 weeks, please call ahead and schedule appointmentLocation: [address] [place]Phone Number: [phone] [facility] CenterProgress note No data available for this section [facility] [place] Chief Complaint Pt came in today for EKG due to starting Metoprolol Tartrate by order of Dr. Cecilio Go MD forTachycardia. Patient has been having symptoms at home with increased palpations, SOB and having to sleep at an incline. Verbally reviewed meds with pt. EKG reviewed by Mariola Singer RN.* ERIK MORALES is being seen for a 3 month follow-up of. * Patient is in the office for follow-up for the problems noted below. With beta-sushant therapy and other measures were taken his heart rate has become under control. His blood pressure is also under control. He reports mild dyspnea from his COPD. He denies any orthopnea PND or lower extremity edema. He is somewhat limited physically because of his underlying COPD. His lungs sounded normal and hisheart sounds are normal. 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 Controlled on metoprolol * 4-mild to moderate mitral regurgitation unchanged from previously based on echocardiogram in June 2020, no prolapse is noted * 4 prostate cancer status post surgery in remission * 6 mild obesity advised patient to reduce calorie intake, he cannot do much exercise due to dyspnea. * 7 small abdominal aortic aneurysm less than 3.5 cm by ultrasound May 2020. Patient is reformed smoker, follow-up testing couple years will be scheduled * ERIK MORALES is being seen for follow-up of a hospitalization for s/p ekos. * Patient is in the office for follow-up for recent admission to [facility] with bilateral pulmonary embolism leading to RV dysfunction and pulmonary hypertension. He did well afterwards and has been onEliquis 5 mg twice daily. Has had no bleeding problems and he does not have significant changes in d yspnea from baseline. He is known to have pulmonary fibrosis which has been followed by pulmonary medicine as well. His blood pressure is under control. Recent echocardiogram while he had pulmonary embolism revealed near severe pulmonary hypertension and RV dysfunction. He does have mild mitral regu rgitation. This is chronic. * Assessment/recommendations: * 1 dyspnea caused by pulmonary fibrosis currently on steroid therapy managed by pulmonary medicine * 2-essential hypertension under control * 3 pulmonary embolism that is bilateral 2021 on Eliquis which will be on a long-term basis. The event was unprovoked, will continue to monitor CBC * 4-mild mitral regurgitation , last echo June 2021 * 4 prostate cancer status post surgery in remission * 6 overweight advised patient to reduce calorie intake, he cannot do much exercise due to dyspnea. * 7 small abdominal aortic aneurysm less than 3.5 cm by ultrasound May 2020. Patient is reformed smoker, follow-up testing couple years will be scheduled * 8 high risk medication with anticoagulation to be monitored closely * ERIK MORALES is being seen for a 7 month follow-up of. * Patient is in the office for follow-up for for pulmonary embolism. Recently follow-[facility] CT scan at [facility] revealed resolution of the pulmonary emboli. Some other pathology was noted with densities requiring follow-up imaging in 3 to 6 months which has been arranged through his PCP. He is cu rrently anticoagulated with Eliquis. The patient is contemplating further dental work in December which he should be able to hold anticoagulation prior to. Recent nuclear stress test at [facility] was reviewed and shared with the patient and was normal. He is also known to have normal ejection fraction. He currently has no complaint to report physical examination was only remarkable for 8 pounds weight gain from last visit. He is now in the obesity range recent medical record from [facility] were reviewed with the patient and reviewed by myself. * Assessment/recommendations: * 1 dyspnea caused by pulmonary fibrosis managed through PCP * 2 pulmonary embolism that is bilateral 2021 on Eliquis which will be on a long-term basis. The event was unprovoked, will continue to monitor CBC * 3-mild mitral regurgitation , last echo 2021 * 4 prostate cancer status post surgery in remission * 5 nuclear stress test 2021 normal * 6 mild obesity advised patient to reduce calorie intake, he cannot do much exercise due to dyspnea. * 7 small abdominal aortic aneurysm less than 3.5 cm by ultrasound May 2020. Patient is reformed smoker, follow-up testing couple years will be scheduled * 8 high risk medication with anticoagulation to be monitored closely ERIK THOMASDALILALISA is being seen for a 6 month follow-up of.new patient. low back pain with RT sided pain to nee x 2 months. h/o sx in 1998. thoracic and lumbar xrays and MRI in [place]. brought a disc.new patient. low back pain with RT sided pain to nee x 2 months. h/o sx in 1998. thoracic and lumbar xrays and MRI in [place]. brought a disc.F/U Lumbar after therapy, says that he feels about the same.f/u pre op sx 11/04/22, lumbarL3-4 Lateral Fusion w/Instrumentation Laterally/L2-3, L3-4 Lami 11/04/22, 15 days PO doing good. Family History No Family History Records FoundUnknown Family Member Name Dates Details Family history of malignant neoplasm: Mother, Father, Brother(V16.9, Z80.9) Status:Active Family history of hypertensi on: Father(V17.49, Z82.49) Status:Active Family history of cardiac di sorder: Mother(V17.49, Z82.49) Status:Active Family history of angina pec toris: Father(V17.49, Z82.49) Status:Active Unknown Family Member Name Dates Details Family history of malignant neoplasm: Mother, Father, Brother(V16.9, Z80.9) Status:Active Family history of hypertensi on: Father(V17.49, Z82.49) Status:Active Family history of cardiac di sorder: Mother(V17.49, Z82.49) Status:Active Family history of angina pec toris: Father(V17.49, Z82.49) Status:Active Unknown Family Member Name Dates Details Family history of angina pec toris: Father(V17.49, Z82.49) Status:Active Family history of cardiac di sorder: Mother(V17.49, Z82.49) Status:Active Family history of hypertensi on: Father(V17.49, Z82.49) Status:Active Family history of malignant neoplasm: Mother, Father, Brother(V16.9, Z80.9) Status:Active Unknown Family Member Name Dates Details Family history of angina pec toris: Father(V17.49, Z82.49) Status:Active Family history of cardiac di sorder: Mother(V17.49, Z82.49) Status:Active Family history of hypertensi on: Father(V17.49, Z82.49) Status:Active Family history of malignant neoplasm: Mother, Father, Brother(V16.9, Z80.9) Status:Active Unknown Family Member Name Dates Details Family history of angina pec toris: Father(V17.49, Z82.49) Status:Active Family history of cardiac di sorder: Mother(V17.49, Z82.49) Status:Active Family history of hypertensi on: Father(V17.49, Z82.49) Status:Active Family history of malignant neoplasm: Mother, Father, Brother(V16.9, Z80.9) Status:Active Unknown Family Member Name Dates Details Family history of malignant neoplasm: Mother, Father, Brother(V16.9, Z80.9) Status:Active Family history of hypertensi on: Father(V17.49, Z82.49) Status:Active Family history of cardiac di sorder: Mother(V17.49, Z82.49) Status:Active Family history of angina pec toris: Father(V17.49, Z82.49) Status:Active Unknown Family Member Name Dates Details Family history of angina pec toris: Father(V17.49, Z82.49) Status:Active Family history of cardiac di sorder: Mother(V17.49, Z82.49) Status:Active Family history of hypertensi on: Father(V17.49, Z82.49) Status:Active Family history of malignant neoplasm: Mother, Father, Brother(V16.9, Z80.9) Status:Active Unknown Family Member Name Dates Details Family history of angina pec toris: Father(V17.49, Z82.49) Status:Active Family history of cardiac di sorder: Mother(V17.49, Z82.49) Status:Active Family history of hypertensi on: Father(V17.49, Z82.49) Status:Active Family history of malignant neoplasm: Mother, Father, Brother(V16.9, Z80.9) Status:Active Unknown Family Member Name Dates Details Family history of angina pec toris: Father(V17.49, Z82.49) Status:Active Family history of cardiac di sorder: Mother(V17.49, Z82.49) Status:Active Family history of hypertensi on: Father(V17.49, Z82.49) Status:Active Family history of malignant neoplasm: Mother, Father, Brother(V16.9, Z80.9) Status:Active Unknown Family Member Name Dates Details Family history of angina pec toris: Father(V17.49, Z82.49) Status:Active Family history of cardiac di sorder: Mother(V17.49, Z82.49) Status:Active Family history of hypertensi on: Father(V17.49, Z82.49) Status:Active Family history of malignant neoplasm: Mother, Father, Brother(V16.9, Z80.9) Status:Active Unknown Family Member Name Dates Details Family history of angina pec toris: Father(V17.49, Z82.49) Status:Active Family history of cardiac di sorder: Mother(V17.49, Z82.49) Status:Active Family history of hypertensi on: Father(V17.49, Z82.49) Status:Active Family history of malignant neoplasm: Mother, Father, Brother(V16.9, Z80.9) Status:Active Relationship Condition Age at Onset Recorded Date/T crista Not Specified Malignant neoplasm Unknown Heart disease Unknown father Malignant neoplasm Unknown brother Malignant neoplasm Unknown Unknown Family Member Name Dates Details Family history of angina pec toris: Father(V17.49, Z82.49) Status:Active Family history of cardiac di sorder: Mother(V17.49, Z82.49) Status:Active Family history of hypertensi on: Father(V17.49, Z82.49) Status:Active Family history of malignant neoplasm: Mother, Father, Brother(V16.9, Z80.9) Status:Active Unknown Family Member Name Dates Details Family history of angina pec toris: Father(V17.49, Z82.49) Status:Active Family history of cardiac di sorder: Mother(V17.49, Z82.49) Status:Active Family history of hypertensi on: Father(V17.49, Z82.49) Status:Active Family history of malignant neoplasm: Mother, Father, Brother(V16.9, Z80.9) Status:Active Unknown Family Member Name Dates Details Family history of angina pec toris: Father(V17.49, Z82.49) Status:Active Family history of cardiac di sorder: Mother(V17.49, Z82.49) Status:Active Family history of hypertensi on: Father(V17.49, Z82.49) Status:Active Family history of malignant neoplasm: Mother, Father, Brother(V16.9, Z80.9) Status:Active Unknown Family Member Name Dates Details Family history of angina pec toris: Father(V17.49, Z82.49) Status:Active Family history of cardiac di sorder: Mother(V17.49, Z82.49) Status:Active Family history of hypertensi on: Father(V17.49, Z82.49) Status:Active Family history of malignant neoplasm: Mother, Father, Brother(V16.9, Z80.9) Status:Active Unknown Family Member Name Dates Details Family history of malignant neoplasm: Mother, Father, Brother(V16.9, Z80.9) Status:Active Family history of hypertensi on: Father(V17.49, Z82.49) Status:Active Family history of cardiac di sorder: Mother(V17.49, Z82.49) Status:Active Family history of angina pec toris: Father(V17.49, Z82.49) Status:Active Unknown Family Member Name Dates Details Family history of angina pec toris: Father(V17.49, Z82.49) Status:Active Family history of cardiac di sorder: Mother(V17.49, Z82.49) Status:Active Family history of hypertensi on: Father(V17.49, Z82.49) Status:Active Family history of malignant neoplasm: Mother, Father, Brother(V16.9, Z80.9) Status:Active Summary Purpose Advance Directives No Advanced Directives Records Found Advance Directive Response Recorded Date/ Time Advance Directives No July 27 12:04pm Advance Directive Response Recorded Date/ Time Advance Directives No July 27 11:04am Chief Complaint and Reason for Visit Chief Complaint I71.4 Chief Complaint j84.9 Reason for Referral Specialty Diagnoses / Procedures Referred By Contac t Referred To Contact Radiology Diagnoses Low back pain, unspecified back pain laterality, unspecified chronicity, unspecified whether sciatica present Procedures XR lumbar spine 2-3 views Curtis Meléndez MD [address] [facility], [address] [place] [id number] Referral ID Status Reason Start Date Expiration Date Visits Requested Visits Authorized [id number] Authorized Perform Procedure 02/28/2023 02/28/2024 1 1 Additional Source Comments REASON FOR VISIT (unrecogniz ed section and content) Reason Comments Follow-up L3-4 Lateral lumbar Fusion above prior L4-5 Fusion/L2-3, L3-4 Midline Lami from 1/2 months out w/x-rays (unrecognized sect ion and content) No Status Records FoundNo Status Records FoundNo Status Records FoundNo Status Records FoundNo Status Records FoundNo Status Records FoundNo Status Records FoundNo Status Records Found INFORMATION SOURCE (unrecogn ized section and content) DATE CREATED AUTHOR 07/07/2022 [facility]zog DATE CREATED AUTHOR AUTHOR'S ORGANIZ ATION 10/25/2022 [facility] DATE CREATED AUTHOR AUTHOR'S ORGANIZ ATION 11/29/2022 [employer] DATE CREATED AUTHOR AUTHOR'S ORGANIZ ATION 12/11/2022 [facility] DATE CREATED AUTHOR AUTHOR'S ORGANIZ ATION 12/14/2022 [facility] DATE CREATED AUTHOR AUTHOR'S ORGANIZ ATION 12/24/2022 Kameron Del Angel [facility] DATE CREATED AUTHOR AUTHOR'S ORGANIZ ATION 03/04/2023 [facility] DATE CREATED AUTHOR AUTHOR'S ORGANIZ ATION 03/10/2023 [facility] Care Teams (unrecognized sec tion and content) Team Status: Active Member Role Status Dates Jean Nicholson MD Primary Care Provider Active Team Status: Inactive Member Role Status Dates Jean Nicholson MD Primary Care Provider Active Bianka Garcia NP-C Attending Provider Active [employer] Supervisor Relationship Specialty Start Date End Date Carmen Witt MD [address] [phone] PCP - General 06/04/22 Team Status: Inactive Member Role Status Dates Jean Nicholson MD Primary Care Provider Active Danna Mcdaniel APRN [facility] Attending Provider Active Goals (unrecognized section and content) Goals may be documented in a n alternate section <item> Privacy Markings (unrecogniz ed section and content) Section Author: Tete Kapadia PROHIBITION ON REDISCLOSURE OF CONFIDENTIAL INFORMATION This notice accompanies a disclosure of information concerning a client made to you with the consent of such client. FOR RECORDS PERTAINING TO PATIENTS WHO ARE OR HAVE BEEN ENROLLED IN A CHEMICAL DEPENDENCY/SUBSTANCEABUSE PROGRAM, SOME INFORMATION MAY BE OMITTED. This clinical summary was aggregated from multiple sources. Caution should be exercised in using it in the provision of clinical care. This summary normalizes information from multiple sources, and as a consequence, information in this document may materially change the coding, format and clinical context of patient data. In addition, data may be omitted in some cases. CLINICAL DECISIONS SHOULD BE BASED ON THE PRIMARY CLINICAL RECORDS. [facility]. provides no warranty or guarantee of the accuracy or completeness of information in this document.
--- NOTE | 2023-03-19 09:56 | P.CN_ITS ---
Consult Note: HPI Data of Consult Patient: known to practice within the last 3 years Requesting Physician: Mercedes Massey NP Primary Care Provider: Radames Ricks MD Consult Narrative Reason for consult: F/u Narrative: Gustavo Morales a pleasant 67 year old male presents for evaluation and management of chronic back pain. Patient recently had back surgery, lumbar fusion, and is currently in PT without benefit. Patient has been cleared by NS post lumbar fusion, doing well overall. Continues to have mild to moderate pain daily, intermittently severe, finds great benefit to current medication regimen. Patient would like to discuss chronic right low back and right hip pain today as this pain has increased post surgery and with PT. cc:: CC: Mercedes Massey NP Review of Systems ROS Status of ROS 10 or more systems reviewed and unremark able except as noted in history and below Musculoskeletal Reports: back pain PFSH PFSH Medical History Fixation hardware in spine ?Z96.7 - Presence of other bone and tendon implants (ICD-10) Fusion of lumbar spine ?M43.26 - Fusion of spine, lumbar region (ICD-10) Generalized weakness ?R53.1 - Weakness (ICD-10) Pulmonary embolism ?I26.99 - Other pulmonary embolism without acute cor pulmonale (ICD-10) Meds Home Medications and Allergies Home Medications Medication Instructions Recorded Confirmed Type acetaminophen 325 mg tablet 325 mg PO Q6H PRN pain 09/06/22 11/08/22 History (Tylenol) albuterol sulfate 90 mcg/actuation 2 puff inhalation Q4H PRN 09/06/22 11/08/22 History aerosol inhaler shortness of breath or wheezing apixaban 5 mg tablet (Eliquis) 5 mg PO Q12H 09/06/22 11/08/22 History atorvastatin 40 mg tablet 40 mg PO QDAY 09/06/22 11/08/22 History baclofen 10 mg tablet 10 mg PO QDAY 09/06/22 11/08/22 History eye promise QDAY 09/06/22 History furosemide 20 mg tablet 20 mg PO QDAY 09/06/22 11/08/22 History lisinopril 20 mg tablet 20 mg PO QDAY 09/06/22 11/08/22 History metoprolol tartrate 25 mg tablet 25 mg PO Q12H 09/06/22 11/08/22 History naloxone 4 mg/actuation nasal spray intranasal Q3M 09/06/22 History nortriptyline 25 mg capsule 25 mg PO BEDTIME 09/06/22 11/08/22 History omeprazole 40 mg capsule,delayed 40 mg PO QDAY 09/06/22 11/08/22 History release oxybutynin chloride 10 mg 10 mg PO QDAY 09/06/22 11/08/22 History tablet,extended release 24 hr oxycodone-acetaminophen 5 mg-325 1 tab PO BID PRN pain 09/06/22 11/08/22 History mg tablet potassium chloride 10 mEq 10 meq PO QDAY 09/06/22 11/08/22 History tablet,extended release celecoxib 200 mg capsule (Celebrex) 200 mg PO BID 11/08/22 11/08/22 History docusate sodium 100 mg capsule 100 mg PO BID 11/08/22 11/08/22 History oxycodone-acetaminophen 5 mg-325 1 tab PO BID PRN pain #60 tabs 12/12/22 Rx mg tablet (Percocet) oxycodone-acetaminophen 5 mg-325 1 tab PO BID PRN pain #60 tabs 01/13/23 Rx mg tablet (Percocet) oxycodone-acetaminophen 5 mg-325 1 tab PO BID PRN pain #60 tabs 02/13/23 Rx mg tablet (Percocet) Allergies Allergy/AdvReac Type Severity Reaction Status Date / Time No Known Drug Allergies Allergy Verified 11/08/22 11:02 Exam Constitutional Documenting provider has reviewed patient's vital signs: yes Common normals: no apparent distress, oriented x3, healthy appearing, alert and well nourished General appearance: cooperative [facility] Common normals: normocephalic, hearing grossly normal bilaterally and moist oral mucous membranes Head and scalp: normocephalic Eye Common normals: PERRL Pupil: PERRL Neck & C-Spine Common normals: full ROM General: normal visual inspection Chest Common normals: inspection of chest normal Respiratory Common normals: normal respiratory effort, no retractions and no use of accessory muscles Back & Pelvis Lumbar spine/lower back: ROM limited and straight leg raise negative bilaterally Sacroiliac joints: SI joint(s) abnormal Other: surgical scar healed, no redness tenderness or warmth mild back pain no radiculopathy pain over right PSIS, pain increased with CAS/FAIDIR thigh thrust and gaenslens maneuvers negative internal and external log roll of right hip, no tenderness over right GTB Neuro Common normals: oriented x3, CN's II-XII intact bilaterally, moves all extremities, no focal motor deficits, no sensory deficits noted and deep tendon reflexes 2+ bilaterally Sensorium/orientation: alert Motor exam: strength 5/5 throughout and no movement abnormalities noted Psych Common normals: mental status grossly normal, thought process normal, cooperative, affect normal, speech normal and activity/motor behavior normal Speech: normal speech Thought process: normal thought process Assessment and Plan Assessment and Plan (1) Bilateral sacroiliitis: (2) Lumbar spondylosis: (3) Fusion of lumbar spine: (4) 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 The patient does not report intolerable side effects. The patient is NOT opioid naive and non-pharmacologic and non-opioid treatment has failed to significantly relieve the patient's pain and improve functionality. The patient has a diagnosis that is related to a somatic or visceral pain etiology. ? ?? I reviewed with the patient the potential risks and side effects with the use of? opioid medications including but not limited to respiratory depression,? sedation, and even . I verified the patient has access to naloxone should? these effects occur. I advised the patient to avoid the use of any other? sedation substances including alcohol, THC, and benzodiazepines while? taking opioid medications due to the risk of compounding side effects and? detrimental outcomes. I reviewed the [employer], pain treatment agreement, urine? drug screen, and opioid start talking forms. The patient was advised to let? their family know they had Naloxone in case they would need to administer? the medication.? ?? A drug screen was completed within the last year, and no aberrancies were noted regarding their use of controlled substances. The patient understands they are subject to the terms and conditions of the pain contract that they have signed. ? ?? I have checked an [place] report on this patient today and there are no aberrancies noted in the prescribing history.? (5) Muscle spasm: (6) Failed back syndrome: (7) Obesity: Assessment and Plan: The patient was counseled that proper dietary changes and consistent participation in a home exercise plan can lead to weight loss. Weight loss can help to improve functionality in patients with chronic pain.? Plan nerve block of right nerve innervating the SIJ under fluoroscopy with Dr Leigh continue current medication regimen, tolerating well without side effects discussed using percocet BID PRN has been cleared by NS f/u 2 weeks after injetion
== END 2023-03-19 09:39 | disposition home or self-care (01) ==
PROVIDERS: PCP Family Medicine; Visit Provider Nurse Practitioner
DX: M47.816 Spondylosis without myelopathy or radiculopathy, lumbar region (principal); M46.1 Sacroiliitis, not elsewhere classified; Z79.891 Long term (current) use of opiate analgesic; Z98.1 Arthrodesis status
CPT/HCPCS: G0463

== ENCOUNTER 2023-03-24 07:45 | Day surgery (SDC) | payer OTHER, SELFPAY ==
--- OUTSIDE RECORDS SUMMARY | 2023-03-24 07:49 | XMS_ITS | CCD ---
Author Name Unknown Address [address] [place] [address] Organization [facility] Care Team Providers Care Pre Press Proofer Name Role Phone Jean Nicholson Unavailable Unavailable Unavailable Julian Matthews Unavailable [phone] Bianka Garcia Unavailable Danna Mcdaniel Unavailable Carmen Witt Unavailable BAUMANN .LAUREN Consulting Unavailable JUAN, KATHERINE Primary Care [...] KATHERINE Admitting Unavailable JUAN, KATHERINE Consulting Unavailable RAINER ., DR PICHARDO Consulting Unavailable JUAN, KATHERINE Primary Care Unavailable RAINER ., DR PICHARDO Attending Unavailable RAINER ., DR PICHARDO Admitting Unavailable ZIEBER, DR BRITANY Calabrese Consulting Unavailable JUAN, KATHERINE Primary Care Unavailable KATHERINE MARTINEZ Attending Unavailable JUAN, KATHERINE Admitting Unavailable JUAN, KATHERINE Consulting Unavailable SALOMÓN, DR IRASI Ramos Consulting Unavailable JUAN, KATHERINE Primary Care [...] ANDERSON ., DR LORENA Dunham Attending Unavailable ANDESRON ., DR LORENA Dunham Admitting Unavailable BAUMANN ., LAUREN Consulting Unavailable BAUMANN ., LAUREN Consulting Unavailable JUAN, KATHERINE Primary Care Unavailable ANDERSON ., DR LORENA Dunham Attending Unavailable ANDERSON ., DR LORENA Dunham Admitting Unavailable MD Jean Nicholson Primary Care Provider EDEL Garcia Attending Provider Dr. Jean Nicholson Primary Care Leonor Go, Dr. Cecilio [...] Carmen Witt MD Primary Care Provider [phone]( [phone] CURTIS MELÉNDEZ Attending Unavailable CARMEN WITT Primary Care Unavailable CURTIS MELÉNDEZ Referring Unavailable CARMEN WITT Primary Care Unavailable MD Jean Nicholson Primary Care Provider JESSICA Mcdaniel Attending Provider [phone] Danna Mcdaniel Attending Unavailable Jean Nicholson Primary Care Unavailable Danna Mcdaniel Admitting Unavailable Bianka Garcia Admitting Unavailable Bianka Garcia Attending Unavailable Jean [facility] Unavailable Allergies Allergy Classification Reported Allergen(s) Allergy Type Date of Onset Reaction(s) Facility (20 sources) Nitroglycerin; Translations: [nitroglycerin] Drug Allergy 2 Other (9 sources) Nitroglycerin Drug Allergy Unknown [employer] Other (1 source) Aminolevulinic Acid Drug Allergy [facility] Repository (1 source) Nitroglycerin Drug Allergy 2 Repository Medications Current Medications Medication Drug Class(es) [...] than prescribed may cause serious breathing problems. [id number] actuat albuterol 0.09 mg/actuat metered dose [...] 12/23/22 Status: Ordered take 1 tablet by [facility] every twenty-four hours Metoprolol Succinate ER 25 [...] disease (1 source) Atherosclerotic heart disease of [place] coronary artery without angina pectoris; Translations: [ASHD [place] W/O ANGINA PECTORIS] Onset: 2 Chronic [...] other medications] Episodic Other aftercare (2 sources) [facility] (current) use of anticoagulants; Translations: [SENIOR CARE CURRNT USE ANTICOAGULANTS] Onset: 2 Episodic Other [...] 07-14-2021 Episodic Other aftercare (1 source) 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 ACCESSION NUMBER(S): [id number] ORDERING CLINICIAN: CURTIS MELÉNDEZ FINDINGS: AP lateral [...] Curtis Meléndez 02/28/2023 3:09 PM Dictation workstation: [id number] [facility] Lab Reportson 12-24-2022 Lab Reports [id number] [facility] Patient Educationon 12-24-19 23 Patient Education Oncology [...] Where to find more information ? The [employer]: www.cancer.org ? [employer]: www.auanet.org Contact a health care [...] adds flu (more content not included)... Normal [facility] Physician Orderon 12-23-2022 Physician Order [id number] Normal [facility] Urology Office/Clinic Noteon 12-23-2022 Urology Office/Clinic [...] Urology [address], [place] [address] [id number] Additional Instructions: 1 yr w/ PSA Patient [...] Dipstick: Negative (more content not included)... Normal [facility] Comment on above: Result Comment: Elec tronically Signed By: Marino SPEAR MD\.br\Date and Time Signed: 12/23/22 12:01 EDT\.br\Electronically Co-Signed By: Skye Miller\.br\Date and Time Co-Signed: 12/23/22 11:59 EDT Post Op (Orthopaedic Surgery )on 11-19-2022 Post Op (Orthopaedic Surgery) Orders Back pain Xray BN Spine, Lumbosacral; 2 or 3 Views; Status:Complete; Done: [id number] 02:21PM Radiologist to Determine Optimal Study : [...] Xray BN Spine, Lumbosacral; 2 or 3 [id number] 02:21PMCurtis Meléndez Test NameResultFlagReference Xray Lumbar Spine AP + Lateral(Report) FINAL REPORT Interpreted by: CURTIS MELÉNDEZ JON, MD 11/19/22 16:41 Patient Name: ERIK MORALES STUDY: SPINE, LUMBOSACRAL; 2 OR 3 VIEWS; ; 11/19/2022 2:21 pm INDICATION: pain M54.9: Back pain. ACCESSION NUMBER(S): [id number] ORDERING CLINICIAN: CURTIS MELÉNDEZ FINDINGS: AP lateral x-rays of the lumbar spine show an L3-4 lateral lumbar fusion with lateral plate and cage configuration. Cage pl (more content not included)... Normal [facility] 11-19-2022 XR Lumbar spine AP and Lateral Normal [facility] [facility] Work Phone: SPINE, LUMBOSACRAL 2 OR 3 EWSon 11-19-2022 SPINE, LUMBOSACRAL 2 OR 3 VIEWS Patient Name: ERIK MORALES STUDY: SPINE, LUMBOSACRAL; 2 OR 3 VIEWS; ; 11/19/2022 2:21 pm INDICATION: pain M54.9: Back pain. ACCESSION NUMBER(S): [id number] ORDERING CLINICIAN: CURTIS MELÉNDEZ FINDINGS: AP lateral [...] Electronically signed by: CURTIS MELÉNDEZ MD Normal [facility] BASIC METABOLIC PANELon 10-25 Anion gap [Moles/Vol] 10 mmol/L Normal 10 - 20 [facility] Comment on above: Performed By: #### B MP #### [address] [id number] Calcium [Mass/Vol] 8.9 mg/dL Normal 8.6 - 10.3 [facility] Comment on above: Performed By: #### B MP #### [address] [id number] Chloride [Moles/Vol] 101 mmol/L Normal 98 - 107 [facility] Comment on above: Performed By: #### B MP #### [address] [id number] Creatinine [Mass/Vol] 1.15 mg/dL Normal 0.50 - 1.30 [facility] Comment on above: Performed By: #### B MP #### [address] [id number] GFR/1.73 sq M.predicted among non-blacks MDRD (S/P/Bld) [Vol rate/Area] 70 mL/min/{1.73_m2} Normal >90 [facility] Comment on above: Result Comment: CALC ULATIONS OF ESTIMATED GFR ARE PERFORMED USING THE 2020 CKD-EPI STUDY REFIT EQUATION WITHOUT THE RACE VARIABLE FOR THE IDMS-TRACEABLE CREATININE METHODS. https://jasn.asnjournals.org/content/early//ASN.5909004 988 Performed By: #### B MP #### [address] [id number] Glucose [Mass/Vol] 106 mg/dL High 74 - 99 [facility] Comment on above: Performed By: #### B MP #### [address] [id number] HCO3 (Bld) [Moles/Vol] 29 mmol/L Normal 21 - 32 [facility] Comment on above: Performed By: #### B MP #### [address] [id number] Potassium [Moles/Vol] 4.5 mmol/L Normal 3.5 - 5.3 [facility] Comment on above: Performed By: #### B MP #### [address] [id number] Sodium [Moles/Vol] 135 mmol/L Low 136 - 145 [facility] Comment on above: Performed By: #### B MP #### [address] [id number] Urea nitrogen [Mass/Vol] 13 mg/dL Normal 6 - 23 [facility] Comment on above: Performed By: #### B MP #### [facility] [address] [place], [place] [id number] Daily Progress Note-General Internal Medicineon 11-07-2022 Daily [...] intact. Objective Data: Objective Information: T PRBPMAPSpO2 [id number]/7264002% Date/Time11/07 8: 8: 8: 8: 21:0811/07 8:56 [...] laboratory results: Basic Metabolic Panel Trending View Itcrdv92-Rwe-7329 10:23:00 -Oct-2022 05:48:00 Glucose, Jxdrv253 H 95 NA135 L 138 K4.5 4.1 [...] discussed extensively with patient, RN and Ortho SECTION HAND HELPER. Patient verbalized understanding through teach back method. All questions and concerns addressed upon examination. Of note, this documentation is completed using the [employer] system (voice recognition software). There may be spelling and/or grammatical errors that were not corrected prior to final submission. Plan of Care Reviewed With: Plan of Care Reviewed With: patient Electronic Signatures: Heidy Escobar (MACHINE BINDING FOLDER-STRUCTURAL STEEL DETAILER) (Signed 07-Nov-2022 14:59) Authored: Service, Subjective Data, Objective Data, Assessment and Plan, Note Completion Last Updated: 07-Nov-2022 14:59 by Heidy Escobar (MACHINE BINDING FOLDER-STRUCTURAL STEEL DETAILER) Normal [facility] Daily Progress Note-Orthopae dicson 11-07-2022 Daily Progress Note-Orthopaedics Service: Orthopaedics Subjective Data: ERIK MORALES is a 67 year old Male who is Hospital Day # 4 and POD #3 for 1. ;2. ;3. ;4. ;5. Patient seen and examined this morning. No acute events overnight. Objective Data: Objective Information: T PRBPMAPSpO2 Value36.49349853/5267320% Date/Time11/06 21: 21: 21: 21: 21: 21:08 [...] to home today Electronic Signatures: Gilda Mcmahon (MACHINE BINDING FOLDER-STRUCTURAL STEEL DETAILER) (Signed 07-Nov-2022 08:00) Authored: Service, Subjective Data, Objective Data, Assessment and Plan, Note Completion Abner Maldonado) (Signed 07-Nov-2022 11:31) Co-Signer: Service, Subjective Data, Objective Data, Assessment and Plan, Note Completion Last Updated: 07-Nov-2022 11:31 by Abner Maldonado) Normal [facility] Laboratory - Chemistry and C hemistry - challengeon 11-07-2022 Anion gap [Moles/Vol] 10 mmol/L 10 - 20 [facility] Work Phone: Calcium [Mass/Vol] 8.9 mg/dL 8.6 - 10.3 -[facility] [place] Work Phone: Chloride [Moles/Vol] 101 mmol/L 98 - 107 [facility] [place] Work Phone: CO2 [Moles/Vol] 29 mmol/L 21 - 32 [facility] [place] Work Phone: Creatinine [Mass/Vol] 1.15 mg/dL See Below [facility] Work Phone: Comment on above: Reference Range: 0.5 0 - 1.30 Glucose [Mass/Vol] 106 mg/dL above high threshold 74 - 99 [facility] [place] Work Phone: Potassium [Moles/Vol] 4.5 mmol/L 3.5 - 5.3 [facility] Work Phone: Sodium [Moles/Vol] 135 mmol/L below low threshold 136 - 145 [facility] Work Phone: Urea nitrogen [Mass/Vol] 13 mg/dL 6 - 23 [facility] Work Phone: No Panel Informationon 11-07 70 {mL/min/1.73m2} >90 [facility] Work Phone: Comment on above: CALCULATIONS OF MEGAN MATED GFR ARE PERFORMED USING THE 2020 CKD-EPI STUDY REFIT EQUATION WITHOUT THE RACE VARIABLE FOR THE IDMS-TRACEABLE CREATININE METHODS.https://jasn.asnjournals.org/content//ASN .4335555448 Order Reconciliationon 11-07 Order Reconciliation Page 1 Discharge Reconciliation Document Reconciliation Type: Discharge requested on behalf of Gilda Mcmahon (Advanced Practice Nurse-Admit) done by Gilda Mcmahon (MACHINE BINDING FOLDER-[facility]) Discharge - Reconciliation: 07-Nov-2022 09:21 by: Gilda Mcmahon (MACHINE BINDING FOLDER-[facility]) Home Medications EnteredHOME MEDICATIONS AT DISCHARGE [...] oral tablet is not required Potassium Chloride (Lwe-Xrtb-Gui 10) 10 mEq oral tablet, extended release 1 tab(s) orally once a day 21-Oct-2022 13:59 Potassium Chloride (Qqm-Cbep-Nwz 10) 10 mEq oral tablet, extended release 1 tab(s) orally once a day 21-Oct-2022 13:59 Potassium Chloride (Jyx-Vhht-Goo 10) 10 mEq oral tablet, extended release is continued as Potassium Chloride (Rxy-Xobn-Atq 10) 10 mEq oral tablet, extended release [...] Lactated Ringers (more content not included)... Normal [facility] Rehab Note-occupational therapy co director rohit 11-07-2022 Rehab Note-occupational therapy Rehab: Info: Mode of Treatmentoccupational therapy Time IN07:31 Time OUT08:00 Total Treatment Naigkds41 Patient in ... at end of sessionchair; [...] Mobility/Tone: Bed Mobility Assessment/Interventionssu pine to sit Qnknvl-mo-Sct [place] (Bed Mobility)standby assist; verbal cues; nonverbal cues (demo/gesture) Comment, Bed MobilityEducated pt on log roll technique to maintain spinal precautions. Simulated home s/u and transferred towards right side. Transfer Assessment/Interventionssi t to stand transfer; stand to sit transfer; bed to chair transfer; toilet transfer; shower transfer Comment, TransfersMin verbal cues for hand placement with sit <>stand transfers. Bed-Chair [place] (Transfers)standby assist Bed-Chair Assistive Device (Transfers)walker, front-wheeled Sit-Stand [place] (Transfers)standby assist; Multiple sit <>stand transfers performed from various surfaces and surface heights. Pt benefits from elevated surfaces however is able to complete transfers from standard surface heights. Sit-Stand Assistive Device (Transfers)walker, front-wheeled Stand-Sit [place] (Transfers)standby assist Stand-Sit Assistive Device (Transfers)walker, front-wheeled Shower [place] (Transfers)Pt reports having shower chair at home which he has used prior to admission. Verbal education provided on safe transfer techniques. Pt also educated to have someone present with transfer for fall prevention. Toilet [place] (Transfers)standby assist Toilet Assistive Device (Transfer)grab bars/safety [...] Assessment/Interventionlow er body dressing; toileting; grooming; bathing [place] Level (Bathing)Pt educated on using a pipe joints supervisor to complete LB bathing vs purchasing a LH sponge. Verbal and visual education provided on technique from seated position on shower chair. Pt verbalized understanding. [place] Level (Lower Body Dressing)don; pants/bottoms; shoes/slippers Assistive Devices (Lower Body Dressing)pipe joints supervisor Comment (Lower Body Dressing)Reviewed education on use of pipe joints supervisor. Wilfredo pants while seated EOB with fair (+) balance. Pt donned LB clothing with SBA. Educated pt on how to use pipe joints supervisor to wilfredo slip on shoes. Pt reports brother can also assist with donning shoes. Pt educated to not walk in tedhose only, always wear shoes or non-slip socks [place] Level (Grooming)standby assist Position (Grooming)standing [place] Level (Toileting)standby assist Position (Toileting)sitting Skilled BADL Treatment/Interventionadap tive equipment training; BADL process/adaptation training; compensatory training; energy conservation Motor: Mbj-vd-Wmqgq (Balance)F+ Standing, Static (Balance)F+ Standing, Dynamic (Balance)F+ [...] Score20 Short Term Goals: Functional Transfer: Established Sjbn94-Uvm-4579 Functional Transfer: Goal Detailspt will transfer to bed ,chair, toilet with modified indep Functional Transfer: Time Frame for Go (more content not included)... Normal [facility] Rehab Note-physical therapyo n 11-07-2022 Rehab Note-physical therapy Rehab: Info: Disciplinephysical therapist Mode of Treatmentphysical therapy Time IN08:16 Time OUT08:48 Total Treatment Oopubra70 Patient in ... at end of sessionchair; [...] brace in place. PT placed hands over lap winding machine operator on walker to cue pt of his [...] Score18 Short Term Goals: Bed Mobility: Date Rggcyhywxuf85-Ock-1259 Bed Mobility: Bolivar Level Goalmodified independent; supine <> sidelying <> sitting Transfer: Established Vnbx12-Wfe-9965 Transfer: Transfer Type Banwyen-pk-wkwtr/chair-to- bed; lsc-ep-psxwx/uznpj-ao-dhz Transfer: [place]ar Level Goalmodified independent Transfer: Assistive Device Goalrolling walker Gait: Established Ftei60-Nml-6164 Gait: Bol[place]ar Level Goalmodified independent Gait: Assistive Device Goalrolling walker Gait: Distance Caou192' Education: Learnerpatient Barriers to Learningno barrier Methodverbal [...] home Outcome Summary: Predicted Duration of Therapy Doxbdtkwixjb69 days Progress: Physical Therapyprogress toward functional goals as expected Therapy Frequency (PT Eval)2 times/day Predicted Duration of Therapy Gacfuwbqyyfg64 days DC Recommendations: Discharge Recommendation (PT Eval)Pt would benefit from [facility] Electronic Signatures: Daniela Scott (PT) (Signed 07-Nov-2022 15:34) Co-Signer: Info, Mobility/Tone, Outcomes Tools, Short Term Goals, Education, Outcome Summary, DC Recommendations Fior Velez (SPT) (Signed 07-Nov-2022 13:43) Authored: Info, Mobility/Tone, Outcomes Tools, Short Term Goals, Education, Outcome Summary, DC Recommendations Last Updated: 07-Nov-2022 15:34 by Daniela Scott (PT) Normal [facility] BASIC METABOLIC PANELon - Anion gap [Moles/Vol] 9 mmol/L Low 10 - 20 [facility] Comment on above: Performed By: #### B MP #### [address] [id number] Calcium [Mass/Vol] 8.6 mg/dL Normal 8.6 - 10.3 [facility] Comment on above: Performed By: #### B MP #### [address] [id number] Chloride [Moles/Vol] 105 mmol/L Normal 98 - 107 [facility] Comment on above: Performed By: #### B MP #### [address] [id number] Creatinine [Mass/Vol] 1.37 mg/dL High 0.50 - 1.30 [facility] Comment on above: Performed By: #### B MP #### [address] [id number] GFR/1.73 sq M.predicted among non-blacks MDRD (S/P/Bld) [Vol rate/Area] 57 mL/min/{1.73_m2} Abnormal >90 [facility] Comment on above: Result Comment: CALC ULATIONS OF ESTIMATED GFR ARE PERFORMED USING THE 2020 CKD-EPI STUDY REFIT EQUATION WITHOUT THE RACE VARIABLE FOR THE IDMS-TRACEABLE CREATININE METHODS. https://jasn.asnjournals.org/content/early/ASN.7788732 988 Performed By: #### B MP #### [address] [id number] Glucose [Mass/Vol] 95 mg/dL Normal 74 - 99 [facility] Comment on above: Performed By: #### B MP #### [address] [id number] HCO3 (Bld) [Moles/Vol] 28 mmol/L Normal 21 - 32 [facility] Comment on above: Performed By: #### B MP #### [address] [id number] Potassium [Moles/Vol] 4.1 mmol/L Normal 3.5 - 5.3 [facility] Comment on above: Performed By: #### B MP #### [facility] [address], [place] [id number] Sodium [Moles/Vol] 138 mmol/L Normal 136 - 145 [facility] Comment on above: Performed By: #### B MP #### [facility] [address], [place] [id number] Urea nitrogen [Mass/Vol] 14 mg/dL Normal 6 - 23 [facility] Comment on above: Performed By: #### B MP #### [address] [id number] Daily Progress Note-General Internal Medicineon 11-06-2022 Daily [...] intact. Objective Data: Objective Information: T PRBPMAPSpO2 Value37.21473594/566451% Date/Time11/06 8: 8: 8: 8: 8: 8:18 Range(36.2C - 37.4C ) (63 - 79 ) (16 - 18 ) (104 - 132 )/ (58 - 77 ) (76 - 97 ) (94% - 96% ) Highest temp of 37.4 C was recorded at 11/05 19:08 Pain reported at 11/06 7:23: sleeping ---- Intake and Output ----- Mn/Dy/Year TimeIntakeOutdzilth-na-o-dith-hle health centerNet Nov 06, 2022 6:00 [id number] Nov 05, 2022 10:00 [id number] Nov 05, 2022 2:00 [id number] The Intake and Output Totals for the last 24 hours are: IntakeOutputNet [id number] Physical Exam Narrative: Physical Exam: Constitutional: awake/alert/oriented [...] spirometer education and demonstration addressed Discharge planning [facility] reviewed Vital signs every 8 # HTN [...] discussed extensively with patient, RN and Ortho SECTION HAND HELPER. Patient verbalized understanding through teach back method. All questions and concerns addressed upon examination. Of note, this documentation is completed using the [employer] Dictation system (voice recognition software). There may be spelling and/or grammatical errors that were not corrected prior to final submission. Plan of Care Reviewed With: Plan of Care Reviewed With: patient Elec (more content not included)... Normal [facility] Daily Progress Note-Orthopae frederic 11-06-2022 Daily Progress Note-Orthopaedics Service: Orthopaedics Subjective Data: ERIK MORALES is a 67 year old Male who is Hospital Day # 3 and POD #2 for 1. ;2. ;3. ;4. ;5. Overnight Events: Patient had an uneventful night. Objective Data: Objective Information: T PRBPMAPSpO2 Value37.64419952/853607% Date/Time11/06 8: 8: 8: 8: 8: 8:18 Range(36.2C - 37.4C ) (63 - 79 ) (16 - 18 ) (104 - 132 )/ (58 - 77 ) (76 - 97 ) (94% - 96% ) Highest temp of 37.4 C was recorded at 11/05 19:08 Pain reported at 11/06 7:23: sleeping ---- Intake and Output ----- Mn/Dy/Year TimeIntakeOutputNet Nov 06, 2022 6:00 [id number] Nov 05, 2022 10:00 [id number] Nov 05, 2022 2:00 [id number] The Intake and Output Totals for the last 24 hours are: IntakeOutputNet [id number] T PRBPMAPSpO2 Value37.36221874/048649% Date/Time11/06 8: 8: 8: 8: 8: 8:18 [...] bed -home today Electronic Signatures: Derrick Cunningham (MACHINE BINDING FOLDER-STRUCTURAL STEEL DETAILER) (Signed 06-Nov-2022 09:07) Authored: Service, Subjective Data, Objective Data, Assessment and Plan, Note Completion Last Updated: 06-Nov-2022 09:07 by Derrick Cunningham (MACHINE BINDING FOLDER-STRUCTURAL STEEL DETAILER) Normal [facility] Discharge [id number] 023 Discharge Profile2 Discharge Orders: Anticipated Discharge Date: Anticipated Discharge [id number]-[id number] Anticipated Discharge Time12:00 Problem List: Admitting Dx: [...] Review of Medication Reconciliation and Orders Completedby MACHINE BINDING FOLDER Reviewing ProviderFAINA Dwyer at 07-Nov-2022 09:17:40 Appointments: Follow-Up Appointment 01: Physician/Dept/ServiceDr. Meléndez Reason for Referralback Call to Schedule in2 weeks, please call ahead and schedule appointment [id number] Transportation [facility] Phone [phone] Electronic Signatures: Gilda Mcmahon (JESSICA-TRAY) (Signed 07-Nov-2022 09:17) Authored: Discharge Orders, Home Care Orders, Provider FINAL REVIEW of Orders, Appointments, Gold Form - Peanut Cleaner Summary Last Updated: 07-Nov-2022 09:17 by Gilda Mcmahon (JESSICA-STRUCTURAL STEEL DETAILER) Normal [facility] Laboratory - Chemistry and C hemistry - challengeon 11-06-2022 Anion gap [Moles/Vol] 9 mmol/L below low threshold 10 - 20 -[place] [facility] Work Phone: Calcium [Mass/Vol] 8.6 mg/dL 8.6 - 10.3 [facility] Work Phone: Chloride [Moles/Vol] 105 mmol/L 98 - 107 [facility] [place] Work Phone: CO2 [Moles/Vol] 28 mmol/L 21 - 32 [facility] [place] Work Phone: Creatinine [Mass/Vol] 1.37 mg/dL above high threshold See Below [facility] Work Phone: Comment on above: Reference Range: 0.5 0 - 1.30 Glucose [Mass/Vol] 95 mg/dL 74 - 99 [facility] [facility] [place] Work Phone: Potassium [Moles/Vol] 4.1 mmol/L 3.5 - 5.3 [facility] [place] Work Phone: Sodium [Moles/Vol] 138 mmol/L 136 - 145 [address] [facility] Work Phone: Urea nitrogen [Mass/Vol] 14 mg/dL 6 - 23 [facility] Work Phone: MAGNESIUMon 11-06-2022 Magnesium [Mass/Vol] 2.06 mg/dL Normal 1.60 - 2.40 [facility] Comment on above: Performed By: #### M G #### [address] [id number] Magnesium, Serumon Magnesium [Mass/Vol] 2.06 mg/dL See Below [facility] Work Phone: Comment on above: Reference Range: 1.6 0 - 2.40 No Panel Informationon 11-06 57 {mL/min/1.73m2} Abnormal >[address] [facility] [place] Work Phone: Comment on above: CALCULATIONS OF MEGAN MATED GFR ARE PERFORMED USING THE 2020 CKD-EPI STUDY REFIT EQUATION WITHOUT THE RACE VARIABLE FOR THE IDMS-TRACEABLE CREATININE METHODS.https://jasn.asnjournals.org/content//ASN .1922029163 Rehab Note-occupational therapy co director rohit 11-06-2022 Rehab Note-occupational therapy Rehab: Info: Mode of Treatmentoccupational therapy Time IN10:20 Time OUT10:58 Total Treatment Xoeikur43 Patient in ... at end of sessionchair; [...] sitting on sofas and armless chairs. Sit-Stand [place] (Transfers)contact guard Sit-Stand Assistive Device (Transfers)walker, front-wheeled Stand-Sit [place] (Transfers)contact guard Stand-Sit Assistive Device (Transfers)walker, front-wheeled Toilet Bol[place]ar (Transfers)contact guard Toilet Assistive Device (Transfer)grab bars/safety [...] alignment. UB bathing and dressing with SBA [place] Level (Lower Body Dressing)don; pants/bottoms; shoes/slippers; minimum assist (75% patient effort) Assistive Devices (Lower Body Dressing)pipe joints supervisor Comment (Lower Body Dressing)Pt educated on use of pipe joints supervisor and sock aid for LB dressing with fair understanding and return demonstration. [place]ar Level (Grooming)contact guard Comment (Grooming)Pt performed G/H tasks in stance at sink with fair balance x 2 1/2 min Motor: Fdm-vv-Rrmkg (Balance)fair balance Standing, Static (Balance)fair balance Standing, [...] Upper Body Dressing: Established Upper Body Dressing: Bolivar Level Goalstand-by assist Upper Body Dressing: Time Frame for Goal2 wks Lower Body Dressing: Established Lower Body Dressing: Bol[place]ar Level Goalminimum assist (75% patients effort) Lower [...] to d (more content not included)... Normal [facility] Rehab Note-physical therapyo n 11-06-2022 Rehab Note-physical therapy Rehab: Info: Disciplinephysical therapist Mode of Treatmentphysical therapy Time IN13:41 Time OUT14:07 Total Treatment Lrvglwr37 Patient in ... at end of sessionbed, [...] Score18 Short Term Goals: Bed Mobility: Date Zavlkfhwxfo83-Dhy-4568 Bed Mobility: [place] Level Goalmodified independent; supine <> sidelying <> sitting Transfer: Established Transfer: Transfer Type Scclidg-sb-zekwo/chair-to- bed; jai-pd-dxbdc/fjnca-po-tcf Transfer: [place] Level Goalmodified independent Transfer: Assistive Device Goalrolling walker Gait: Established Gait: [place]ar Level Goalmodified independent Gait: Assistive Device Goalrolling walker Gait: Distance [id number]' Education: Learnerpatient Barriers to Learningno barrier Methodverbal [...] home Outcome Summary: Predicted Duration of Therapy Vpqftezeomuy10 days Progress: Physical Therapyprogress toward functional goals as expected Therapy Frequency (PT Eval)2 times/day Predicted Duration of Therapy Fwmkdoojecot66 days DC Recommendations: Discharge Recommendation (PT Eval)Pt would benefit from [facility] Electronic Signatures: Daniela Scott (PT) (Signed 07-Nov-2022 03:43) Co-Signer: Info, Mobility/Tone, Motor, Sensory, Outcomes Tools, Short Term Goals, Education, Outcome Summary, DC Recommendations Fior Velez (SPT) (Signed 06-Nov-2022 14:31) Authored: Info, Mobility/Tone, Motor, Sensory, Outcomes Tools, Short Term Goals, Education, Outcome Summary, DC Recommendations Last Updated: 07-Nov-2022 03:43 by Daniela Scott (PT) Normal [facility] Rehab Note-physical therapy Rehab: Info: Mode of Treatmentphysical therapy Time IN09:36 Time OUT10:17 Total Treatment Pixvelx59 Patient in ... at end of sessionchair; alarm on Patient Effortgood Symptoms Noted During/After Treatmentfatigue Treatment Considerations/CommentsSer vices provided by Alta Velez, [facility] with direct supervision and guidance from Daniela [...] Score18 Short Term Goals: Bed Mobility: Date Utscrqhksgm21-Xqc-5688 Bed Mobility: [place]ar Level Goalmodified independent; supine <> sidelying <> sitting Transfer: Established Efka17-Nym-9167 Transfer: Transfer Type Ssrdltn-xj-irtck/chair-to- bed; ksh-jq-etugj/quwoz-kx-zni Transfer: [place] Level Goalmodified independent Transfer: Assistive Device Goalrolling walker Gait: Established Ccda97-Ouk-0243 Gait: [place]ar Level Goalmodified independent Gait: Assistive Device Goalrolling walker Gait: Distance [id number]' Education: Learnerpatient Methodverbal Topicrehab plan of care; precautions; discharge recommendations including destination and/or equipment; fall prevention Education - Topicproper use of FWW for transfers and gait to reduce the risk of fall, reviewed spinal precautions and body mechanics for getting in and out of bed, concerns for discharging home Outcome Summary: Predicted Duration of Therapy Xiydhhnjjpdw58 days Progress: Physical Therapyprogress towards functional goals is fair Therapy Frequency (PT Eval)2 times/day Predicted Duration of Therapy Beovascrfomq85 days DC Recommendations: Discharge Recommendation (PT Eval)Pt would benefit from [facility] Electronic Signatures: Daniela Scott (PT) (Signed 07-Nov-2022 03:43) Co-Signer: Info, Mobility/Tone, Outcomes Tools, Short Term Goals, Education, Outcome Summary, DC Recommendations Fior Velez (SPT) (Signed 06-Nov-2022 14:30) Authored: Info, Mobility/Tone, Outcomes Tools, Short Term Goals, Education, Outcome Summary, DC Recommendations Last Updated: 07-Nov-2022 03:43 by Daniela Scott (PT) Normal [facility] BASIC METABOLIC PANELon - Anion gap [Moles/Vol] 12 mmol/L Normal 10 - 20 [facility] Comment on above: Performed By: #### B MP #### [address] [id number] Calcium [Mass/Vol] 8.8 mg/dL Normal 8.6 - 10.3 [facility] Comment on above: Performed By: #### B MP #### [address] [id number] Chloride [Moles/Vol] 101 mmol/L Normal 98 - 107 [facility] Comment on above: Performed By: #### B MP #### [address] [id number] Creatinine [Mass/Vol] 1.75 mg/dL High 0.50 - 1.30 [facility] Comment on above: Performed By: #### B MP #### [address] [id number] GFR/1.73 sq M.predicted among non-blacks MDRD (S/P/Bld) [Vol rate/Area] 42 mL/min/{1.73_m2} Abnormal >90 [facility] Comment on above: Result Comment: CALC ULATIONS OF ESTIMATED GFR ARE PERFORMED USING THE 2020 CKD-EPI STUDY REFIT EQUATION WITHOUT THE RACE VARIABLE FOR THE IDMS-TRACEABLE CREATININE METHODS. https://jasn.asnjournals.org/content/early//ASN.9028220 988 Performed By: #### B MP #### [address] [id number] Glucose [Mass/Vol] 131 mg/dL High 74 - 99 [facility] Comment on above: Performed By: #### B MP #### [address] [id number] HCO3 (Bld) [Moles/Vol] 26 mmol/L Normal 21 - 32 [facility] Comment on above: Performed By: #### B MP #### [address] [id number] Potassium [Moles/Vol] 4.0 mmol/L Normal 3.5 - 5.3 [facility] Comment on above: Performed By: #### B MP #### [address] [id number] Sodium [Moles/Vol] 135 mmol/L Low 136 - 145 [facility] Comment on above: Performed By: #### B MP #### [address] [id number] Urea nitrogen [Mass/Vol] 14 mg/dL Normal 6 - 23 [facility] Comment on above: Performed By: #### B MP #### [address] [id number] CBCon 11-05-2022 Erythrocyte distribution width (RBC) [Ratio] 13.4 % Normal 11.5 - 14.5 [facility] Comment on above: Performed By: #### C BC #### [address] [id number] Hematocrit (Bld) [Volume fraction] 43.6 % Normal 41.0 - 52.0 [facility] Comment on above: Performed By: #### C BC #### [address] [id number] Hemoglobin (Bld) [Mass/Vol] 14.3 g/dL Normal 13.5 - 17.5 [facility] Comment on above: Performed By: #### C BC #### [address] [id number] MCHC (RBC) [Mass/Vol] 32.8 g/dL Normal 32.0 - 36.0 [facility] Comment on above: Performed By: #### C BC #### [address] [id number] MCV (RBC) [Entitic vol] 96 fL Normal 80 - 100 [facility] Comment on above: Performed By: #### C BC #### [address] [id number] Platelets (Bld) [#/Vol] 244 10*3/uL Normal 150 - 450 [facility] Comment on above: Performed By: #### C BC #### [address] [id number] RBC 4.54 x10E12/L Normal 4.50 - 5.90 [facility] Comment on above: Performed By: #### C BC #### [address] [id number] WBC (Bld) [#/Vol] 16.4 10*3/uL High 4.4 - 11.3 [facility] Comment on above: Performed By: #### C BC #### [address] [id number] Daily Progress Note-General Internal Medicineon 11-05-2022 Daily [...] intact. Objective Data: Objective Information: T PRBPMAPSpO2 Value36.97180066/356422% Date/Time11/05 7: 0: 0: 7: 7: 7:33 [...] ----- Mn/Dy/Year TimeIntakeOutputNet Nov 05, 2022 6:00 [id number] Nov 04, 2022 10:00 [id number] Nov 04, 2022 2:00 [id number] The Intake and Output Totals for the last 24 hours are: IntakeOutputNet [id number] Physical Exam Narrative: Physical Exam: Constitutional: awake/alert/oriented [...] interview, assessm (more content not included)... Normal [facility] Daily Progress Note-Orthopae frederic 11-05-2022 Daily Progress Note-Orthopaedics Service: Orthopaedics Subjective Data: ERIK MORALES is a 67 year old Male who is Hospital Day # 2 and POD #1 for 1. ;2. ;3. ;4. ;5. Overnight Events: Patient had an uneventful night. Objective Data: Objective Information: T PRBPMAPSpO2 Value36.79680134/915050% Date/Time11/05 7: 0:40912 0:40912 7:339 7: 7:33 [...] ----- Mn/Dy/Year TimeIntakeOutputNet Nov 05, 2022 6:00 [id number] Nov 04, 2022 10:00 [id number] Nov 04, 2022 2:00 [id number] The Intake and Output Totals for the last 24 hours are: IntakeOutputNet [id number] T PRBPMAPSpO2 Value36.49603223/571639% Date/Time11/05 7: 0: 0: 7: 7: 7:33 [...] out of bed Electronic Signatures: Derrick Cunningham (MACHINE BINDING FOLDER-STRUCTURAL STEEL DETAILER) (Signed 05-Nov-2022 08:16) Authored: Service, Subjective Data, Objective Data, Assessment and Plan, Note Completion Curtis Maldonado) (Signed 05-Nov-2022 09:30) Co-Signer: Service, Subjective Data, Objective Data, Assessment and Plan, Note Completion Last Updated: 05-Nov-2022 09:30 by Curtis Maldonado) [facility] - Chemistry and C hemistry - challengeon 11-05-2022 Anion gap [Moles/Vol] 12 mmol/L 10 - 20 [facility] [place] Work Phone: Calcium [Mass/Vol] 8.8 mg/dL 8.6 - 10.[address] [facility] [place] Work Phone: Chloride [Moles/Vol] 101 mmol/L 98 - 107 [facility] [place] Work Phone: CO2 [Moles/Vol] 26 mmol/L 21 - 32 [facility] [place] Work Phone: Creatinine [Mass/Vol] 1.75 mg/dL above high threshold See Below [facility] [place] Work Phone: Comment on above: Reference Range: 0.5 0 - 1.30 Glucose [Mass/Vol] 131 mg/dL above high threshold 74 - 99 -[place] [facility] [place] Work Phone: Potassium [Moles/Vol] 4.0 mmol/L 3.5 - 5.3 [facility] [place] Work Phone: Sodium [Moles/Vol] 135 mmol/L below low threshold 136 - 145 [facility] [place] Work Phone: Urea nitrogen [Mass/Vol] 14 mg/dL 6 - 23 [facility] [place] Work Phone: Laboratory - Hematology and Cell countson 11-05-2022 Erythrocyte distribution width (RBC) [Ratio] 13.4 % See Below [facility] Work Phone: Comment on above: Reference Range: 11. 5 - 14.5 Hematocrit (Bld) [Volume fraction] 43.6 % See Below [facility] Work Phone: Comment on above: Reference Range: 41. 0 - 52.0 Hemoglobin (Bld) [Mass/Vol] 14.3 g/dL See Below [facility] Work Phone: [phone] Comment on above: Reference Range: 13. 5 - 17.5 MCHC (RBC) [Mass/Vol] 32.8 g/dL See Below [facility] Work Phone: Comment on above: Reference Range: 32. 0 - 36.0 MCV (RBC) [Entitic vol] 96 fL 80 - 100 [facility] Work Phone: [phone] Platelets (Bld) [#/Vol] 244 10*3/uL 150 - 450 [facility] Work Phone: [phone] RBC (Bld) [#/Vol] 4.54 {x10E12/L} See Below [facility] Work Phone: [phone] Comment on above: Reference Range: 4.5 0 - 5.90 WBC (Bld) [#/Vol] 16.4 10*3/uL above high threshold 4.4 - 11.3 [facility] Work Phone: No Panel Informationon 11-05 42 {mL/min/1.73m2} Abnormal >[address] [facility] Work Phone: Comment on above: CALCULATIONS OF MEGAN MATED GFR ARE PERFORMED USING THE 2020 CKD-EPI STUDY REFIT EQUATION WITHOUT THE RACE VARIABLE FOR THE IDMS-TRACEABLE CREATININE METHODS.https://jasn.asnjournals.org/content/early/ASN .6559900360 OT Evaluation v2-occupationa l therapyon 11-05-2022 OT Evaluation v2-occupational therapy Rehab: Info: Mode of Treatmentoccupational therapy Time IN07:41 Time OUT08:05 Total Treatment Minutes0 Patient Effortgood Symptoms Noted During/After Treatmentnone Patient Profile Reviewedyes Onset of Illness/Injury or Date of Eqomogc55-Mqz-5607 Reason for ReferralL2-3, L3-4 lami, L3-4 lateral [...] Static (Balance)good balance Sitting, Dynamic (Balance)good balance Zyi-fd-Zqqqv (Balance)good balance Standing, Static (Balance)fair balance Standing, Dynamic (Balance)fair balance Sensory: Pre-Treatment Pain Rating3/10 Post-Treatment Pain Rating3/10 Comment, Pre/Post Treatment Painlow back pain Sensory General Assessmentno sensation deficits identified Impression: Criteria for Skilled Therapeutic Interventions Met (OT Eval)treatment indicated OT DiagnosisADL impairment Rehab Potential (OT Eval)good, to achieve stated therapy goals Therapy Frequency (OT Eval)2 times/wk Predicted Duration of Therapy Ymkvbznksxpw73 days Functional Limitations in Following Categoriesself-care Planned [...] Upper Body Dressing: Established Upper Body Dressing: Bolivar Level Goalstand-by assist Upper Body Dressing: Time Frame for Goal2 wks Lower Body Dressing: Established Lower Body Dressing: [place]ar Level Goalminimum assist (75% patients effort) Lower [...] 05-Nov-2022 09:56 by Marianna Hayes (OT) Normal [facility] PT Evaluation v2-physical th erapyon 11-05-2022 PT Evaluation v2-physical therapy Rehab: Info: Mode of Treatmentphysical therapy Time IN07:45 Time OUT08:05 Patient in ... at end of sessionchair; alarm on Patient Effortgood Patient Profile Reviewedyes Onset of Illness/Injury or Date of Yqlzdfo77-Aye-7744 Reason for ReferralSurgery 11.04.2022 L3-4 lateral interbody [...] Static (Balance)good balance Sitting, Dynamic (Balance)fair balance Uui-yw-Jjbon (Balance)fair + Standing, Static (Balance)fair + Standing, [...] (PT Eval)2 times/day Predicted Duration of Therapy Jpvpwnhvxdmw97 days Outcomes Tools: Turning from your back [...] in hosp (more content not included)... 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 at end of sessionbed, [...] Score18 Short Term Goals: Bed Mobility: Date Rjpczrzrufo13-Qjo-0866 Bed Mobility: [place]ar Level Goalmodified independent; supine <> sidelying <> sitting Transfer: Established Uiyl69-Wjr-4092 Transfer: Transfer Type Tdatkpr-ta-txlcz/chair-to- bed; pqs-if-wkakn/mtegt-nc-wxh Transfer: [place]ar Level Goalmodified independent Transfer: Assistive Device Goalrolling walker Gait: Established Whij46-Aiq-1408 Gait: [place]ar Level Goalmodified independent Gait: Assistive Device Goalrolling walker Gait: Distance Qcxg123' Education: Learnerpatient; family member Methodverbal Outcome Evaluation1=partially meets; needs review Education - Topicpt able to recall spinal precautions , Able to don and doff TLSO brace Outcome Summary: Progress: Physical Therapyprogress toward functional goals as expected Electronic Signatures: Kelsea Cueto (LOOP CUTTER) (Signed 05-Nov-2022 16:34) Authored: Info, Mobility/Tone, Sensory, Outcomes Tools, Short Term Goals, Education, Outcome Summary Daniela Scott (PT) (Signed 06-Nov-2022 03:32) Co-Signer: Info, Mobility/Tone, Sensory, Outcomes Tools, Short Term Goals, Education, Outcome Summary Last Updated: 06-Nov-2022 03:32 by Daniela Scott (PT) Normal [facility] Admission Risk Screen - Adul ton 11-04-2022 Admission Risk Screen - Adult Allergies: Intolerances: nitroglycerin: Unknown Patient Verification: New W ID Band Applied in my Departmentno Type of ID Patient is WearingW wristband, but not applied here Patient Transferred from Other Facility ([facility], [facility],etc)no Patient Identity Verified Bypatient [...] AlertFor Ebola-like Symptoms: Isolate Patient and Notify Provider/Fiber Worker For Contact: Notify Provider/Fiber Worker Advance Directive: Advance Directive/DNRyes Advance Directive typeLiving Will, Durable Power of Bmet for Healthcare Living Will AvailabilityLiving Will not available now Living Will Cpdpeepmu99-Zxb-8861 Durable Power of Bmet AvailabilityDPOA not available now Durable Power of Bmet Yrflxpvfg85-Vmu-3033 Durable Power of Bmet contact (name and number)Dana [phone] [place] Fall Screen: History of falling (immediate [...] instruction; skill demonstration Cultural Considerationsnone Developmental Considerationsnone Jehovah'S Witness Considerationsnone Learning Assessment (Other Learner): Other learner availableno Depression Screen: During the past month, have you often been bothered by feeling down, depressed or hopelessno During the past month, have you often had little interest or pleasure in doing thingsno Have you had any thoughts of harming anyone elseno [place] Suicide: Risk Screen Not Applicable/Able to Answerable to be screened In the Past Month: Have you wished you were or could go to sleep and not wake upno In the Past Month: Have you had any actual thoughts of killing yourselfno Lifetime: Have you ever done, started to do, or prepared to do anything to end your lifeno [place] Suicide Risknegative Adult Nutrition Screen: Have you [...] (frequency/quality)frequen t; (more content not included)... Normal [facility] Consult-General Internal Med sotero 11-04-2022 Consult-General Internal [...] nitroglycerin: Unknown Objective: Objective Information: T PRBPMAPSpO2 Value36.53122354/8801428% Date/Time11/04 15: 15: 15: 15: 15: 15:32 [...] to b (more content not included)... Normal [facility] Discharge Planning Ldta2gq 0 11-04-2022 Discharge Planning Note2 Discharge Planning: Planned Dispositionhome Discharge Destinationhome [place] of Choice Explainedyes Anticipated Discharge Jqfn51-Pqa-2815 Discharge Planning 11/04/22 @ 1508 hours: Received [...] he is independent of ADLs and IADLs LOOP CUTTER and does not use AD. Drives. Pt plans to dc home. CT team will continue to monitor care progression and potential dc needs. Darya Jay RN TCC 11/06/22 0900 TCC UPDATE: [facility] score is PT (18) OT (16), [...] Jones RN TCC. Assessment: Discharge Planning Assessment Soxe41-Mel-2104 Primary Contact Name and NumberDale (brother) [phone] Lives Withsibling(s) Living Arrangementscedar PCPHoy [facility]ticipated [facility] Anticipated at Transitionnone InsuranceDevoted Anticipated Changes [...] 06-Nov-2022 15:26 by Sultana Jones (CLIN COOR) [facility] Order Reconciliationon 11-04 Order Reconciliation Page 1 Admission Reconciliation Document Reconciliation Type: Admission requested on behalf of Heidy Escobar (Advanced Practice Nurse) done by Heidy Escobar ([facility]) Admission - Partial Reconciliation: 04-Nov-2022 15:50 by: Heidy Escobar ([facility]) Admission - Reconciliation: 04-Nov-2022 15:50 by: Heidy Escobar ([facility]) Home MedicationsEnteredLast Dose TakenReconciled with current Order Reconciliation Comment/ Additional Information atorvastatin 40 mg oral tablet 1 tab(s) orally once a day (at bedtime) [id number]-0403 PM Atorvastatin Tablet (LIPITOR)DOSE = 40 mg Oral At Bedtimeatorvastatin 40 mg oral tablet continued as the inpatient order Atorvastatin baclofen 10 mg oral tablet 1 tab(s) orally once a mpl44-Dqr-539276-Rhn-8929 PM Reviewed and Held Eliquis 5 mg oral tablet 1 tab(s) orally 2 times a day---AWARE TO HOLD PRIOR TO PROCEDURE Reviewed and Held furosemide 20 mg oral tablet 1 tab(s) orally once a aup41-Lka-654500-Hba-4230 AM Furosemide Tablet (LASIX)DOSE = 20 mg Oral Dailyfurosemide 20 mg oral tablet is continued and suspended as Furosemide lisinopril 20 mg oral tablet 1 tab(s) orally once a ofm82-Mzs-993721-Atd-4073 PM Lisinopril Tablet (PRINIVIL, ZESTRIL)DOSE = 20 mg Oral Dailylisinopril 20 mg oral tablet is continued and suspended as Lisinopril metoprolol tartrate 25 mg oral tablet 1 tab(s) orally 2 times a day---AWARE TO TAKE MORNING OF PROCEDUE WITH A SIP OF FKAVC14-Iax-590452-Flc-903 3 02:30 AM Reviewed and Held Multiple Vitamins oral tablet 1 tab(s) orally once a jnv76-Hnf-494004-Nov-2022 AM Multivitamin with Minerals TabletDOSE = 1 tablet(s) Oral Daily Multiple Vitamins oral tablet continued as the inpatient order Multivitamin with Minerals nortriptyline 25 mg oral capsule orally once a xuv69-Mlq-932969-Aur-8423 PM Nortriptyline Capsule (PAMELOR)DOSE = 25 mg [...] tab(s) orally 2 times a day, As Wglnhr84-Eyz-343114-Gfw-03 23 Reviewed and Held Potassium Chloride (Tvf-Bptv-Ttj 10) 10 mEq oral tablet, extended release 1 tab(s) orally once a dee16-Dtd-377243-Fov-9995 PM Reviewed and Held Additional Current Orders [...] HoursRecommended Infusion Time: 60 minute(s) Normal [facility] Radiologyon 11-04-2022 Fluoroscopy duration Please click on the link to view the study images Normal -[place] [facility] Work Phone: Established Visit (Orthopaed ic Surgery)on [...] instructions were (more content not included)... Normal [employer] APTTon 10-21-2022 aPTT Coag (Bld) [Time] 34 s Normal 27 - 38 [facility] Comment on above: Result Comment: Note new reference range as of 08/13/2022 at 10:00am. Performed By: #### A PTT #### [address] [id number] Activated Partial Thrombopla stin Timeon 10-21-2022 aPTT Coag (PPP) [Time] 34 s 27 - 38 -[facility] Work Phone: Comment on above: Note new reference r jana as of 08/13/2022 at 10:00am. CBC AND DIFFERENTIALon 10-21 % AUTOMATED IMMATURE GRAN 0.3 % Normal 0.0 - 0.9 [facility] Comment on above: Result Comment: Jovanna ture Granulocyte Count (IG) includes promyelocytes, myelocytes and metamyelocytes but does not include bands. Percent differential counts (%) should be interpreted in the context of the absolute cell counts (cells/L). Performed By: #### C BCDF #### [address] [id number] Basophils (Bld) [#/Vol] 0.11 10*3/uL High 0.00 - 0.10 [facility] Comment on above: Performed By: #### C BCDF #### [address] [id number] Basophils/100 WBC (Bld) 1.2 % Normal 0.0 - 2.0 [facility] Comment on above: Performed By: #### C BCDF #### [address] [id number] Eosinophils (Bld) [#/Vol] 0.21 10*3/uL Normal 0.00 - 0.70 [facility] Comment on above: Performed By: #### C BCDF #### [address] [id number] Eosinophils/100 WBC (Bld) 2.2 % Normal 0.0 - 6.0 [facility] Comment on above: Performed By: #### C BCDF #### [address] [id number] Erythrocyte distribution width (RBC) [Ratio] 13.5 % Normal 11.5 - 14.5 [facility] Comment on above: Performed By: #### C BCDF #### [address] [id number] Hematocrit (Bld) [Volume fraction] 44.9 % Normal 41.0 - 52.0 [facility] Comment on above: Performed By: #### C BCDF #### [address] [id number] Hemoglobin (Bld) [Mass/Vol] 14.8 g/dL Normal 13.5 - 17.5 [facility] Comment on above: Performed By: #### C BCDF #### [address] [id number] Lymphocytes (Bld) [#/Vol] 1.28 10*3/uL Normal 1.20 - 4.80 [facility] Comment on above: Performed By: #### C BCDF #### [address] [id number] Lymphocytes/100 WBC (Bld) 13.6 % Normal 13.0 - 44.0 [facility] Comment on above: Performed By: #### C BCDF #### [address] [id number] MCHC (RBC) [Mass/Vol] 33.0 g/dL Normal 32.0 - 36.0 [facility] Comment on above: Performed By: #### C BCDF #### [address] [id number] MCV (RBC) [Entitic vol] 94 fL Normal 80 - 100 [facility] Comment on above: Performed By: #### C BCDF #### [address] [id number] Monocytes (Bld) [#/Vol] 0.72 10*3/uL Normal 0.10 - 1.00 [facility] Comment on above: Performed By: #### C BCDF #### [address] [id number] Monocytes/100 WBC (Bld) 7.7 % Normal 2.0 - 10.0 [facility] Comment on above: Performed By: #### C BCDF #### [address] [id number] Neutrophils (Bld) [#/Vol] 7.04 10*3/uL Normal 1.20 - 7.70 [facility] Comment on above: Performed By: #### C BCDF #### [address] [id number] Neutrophils/100 WBC (Bld) 75.0 % Normal 40.0 - 80.0 [facility] Comment on above: Performed By: #### C BCDF #### [address] [id number] Platelets (Bld) [#/Vol] 251 10*3/uL Normal 150 - 450 [facility] Comment on above: Performed By: #### C BCDF #### [address] [id number] RBC 4.78 x10E12/L Normal 4.50 - 5.90 [facility] Comment on above: Performed By: #### C BCDF #### [address] [id number] WBC (Bld) [#/Vol] 9.4 10*3/uL Normal 4.4 - 11.3 [facility] Comment on above: Performed By: #### C BCDF #### [address] [id number] COMPREHENSIVE PANELon 2022 Albumin [Mass/Vol] 4.0 g/dL Normal 3.4 - 5.0 [facility] Comment on above: Performed By: #### C BC #### [address] [id number] ALP [Catalytic activity/Vol] 127 U/L Normal 33 - 136 [facility] Comment on above: Performed By: #### C BC #### [address] [id number] ALT [Catalytic activity/Vol] 16 U/L Normal 10 - 52 [facility] Comment on above: Result Comment: Becca ents treated with Sulfasalazine may generate falsely decreased results for ALT. Performed By: #### C BC #### [address] [id number] Anion gap [Moles/Vol] 12 mmol/L Normal 10 - 20 [facility] Comment on above: Performed By: #### C BC #### [address] [id number] AST [Catalytic activity/Vol] 21 U/L Normal 9 - 39 [facility] Comment on above: Performed By: #### C BC #### [address] [id number] Bilirubin [Mass/Vol] 0.6 mg/dL Normal 0.0 - 1.2 [facility] Comment on above: Performed By: #### C BC #### [address] [id number] Calcium [Mass/Vol] 9.3 mg/dL Normal 8.6 - 10.3 [facility] Comment on above: Performed By: #### C BC #### [address] [id number] Chloride [Moles/Vol] 103 mmol/L Normal 98 - 107 [facility] Comment on above: Performed By: #### C BC #### [address] [id number] Creatinine [Mass/Vol] 1.29 mg/dL Normal 0.50 - 1.30 [facility] Comment on above: Performed By: #### C BC #### [address] [id number] GFR/1.73 sq M.predicted among non-blacks MDRD (S/P/Bld) [Vol rate/Area] 61 mL/min/{1.73_m2} Normal >90 [facility] Comment on above: Result Comment: CALC ULATIONS OF ESTIMATED GFR ARE PERFORMED USING THE 2020 CKD-EPI STUDY REFIT EQUATION WITHOUT THE RACE VARIABLE FOR THE IDMS-TRACEABLE CREATININE METHODS. https://jasn.asnjournals.org/content//ASN.0068359 988 Performed By: #### C BC #### [address] [id number] Glucose [Mass/Vol] 103 mg/dL High 74 - 99 [facility] Comment on above: Performed By: #### C BC #### [address] [id number] HCO3 (Bld) [Moles/Vol] 27 mmol/L Normal 21 - 32 [facility] Comment on above: Performed By: #### C BC #### [address] [id number] Potassium [Moles/Vol] 3.8 mmol/L Normal 3.5 - 5.3 [facility] Comment on above: Performed By: #### C BC #### [address] [id number] Protein [Mass/Vol] 7.4 g/dL Normal 6.4 - 8.2 [facility] Comment on above: Performed By: #### C BC #### [address] [id number] Sodium [Moles/Vol] 138 mmol/L Normal 136 - 145 [facility] Comment on above: Performed By: #### C BC #### [address] [id number] Urea nitrogen [Mass/Vol] 11 mg/dL Normal 6 - 23 [facility] Comment on above: Performed By: #### C BC #### [address] [id number] Complete Blood Count + Diffe rentialon 10-21-2022 Basophils/100 WBC (Bld) 1.2 % 0.0 - 2.0 [facility] Work Phone: Erythrocyte distribution width (RBC) [Ratio] 13.5 % See Below [facility] Work Phone: Comment on above: Reference Range: 11. 5 - 14.5 Hematocrit (Bld) [Volume fraction] 44.9 % See Below [facility] Work Phone: Comment on above: Reference Range: 41. 0 - 52.0 Hemoglobin (Bld) [Mass/Vol] 14.8 g/dL See Below [facility] [place] Work Phone: Comment on above: Reference Range: 13. 5 - 17.5 Lymphocytes/100 WBC (Bld) 13.6 % See Below [facility] [place] Work Phone: [phone] Comment on above: Reference Range: 13. 0 - 44.0 MCHC (RBC) [Mass/Vol] 33.0 g/dL See Below [facility] [place] Work Phone: [phone] Comment on above: Reference Range: 32. 0 - 36.0 MCV (RBC) [Entitic vol] 94 fL 80 - 100 [facility] [place] Work Phone: [phone] Monocytes/100 WBC (Bld) 7.7 % 2.0 - 10.0 [facility] [place] Work Phone: [phone] Neutrophils/100 WBC (Bld) 75.0 % See Below [facility] [place] Work Phone: [phone] Comment on above: Reference Range: 40. 0 - 80.0 Platelets (Bld) [#/Vol] 251 10*3/uL 150 - 450 [facility] [place] Work Phone: [phone] RBC (Bld) [#/Vol] 4.78 {x10E12/L} See Below [facility] [place] Work Phone: [phone] Comment on above: Reference Range: 4.5 0 - 5.90 WBC (Bld) [#/Vol] 9.4 10*3/uL 4.4 - 11.[address] [facility] [place] Work Phone: [phone] Complete Blood Count + Differential 0.11 {x10E9/L} above high threshold See Below [facility] [place] Work Phone: [phone] Comment on above: Reference Range: 0.0 0 - 0.10 Complete Blood Count + Differential 0.21 {x10E9/L} See Below [facility] Work Phone: Comment on above: Reference Range: 0.0 0 - 0.70 Complete Blood Count + Differential 0.72 {x10E9/L} See Below [facility] Work Phone: Comment on above: Reference Range: 0.1 0 - 1.00 Complete Blood Count + Differential 1.28 {x10E9/L} See Below [facility] Work Phone: Comment on above: Reference Range: 1.2 0 - 4.80 Complete Blood Count + Differential 7.04 {x10E9/L} See Below [facility] Work Phone: Comment on above: Reference Range: 1.2 0 - 7.70 Complete Blood Count + Differential 2.2 % 0.0 - 6.0 [facility] Work Phone: Complete Blood Count + Differential 0.3 % 0.0 - 0.9 [facility] Work Phone: Comment on above: Immature Granulocyte Count (IG) includes promyelocytes, myelocytes and metamyelocytes but does not include bands. Percent differential counts (%) should be interpreted in the context of the absolute cell counts (cells/L). Electrocardiogram 12 Leadon 10-21-2022 Electrocardiogram 12 Lead Ventricular Rate 64 Atrial Rate 64 P-R Interval 172 QRS Duration 84 Q-T Interval 398 QTC Calculation(Bazett) 410 P [place] 22 R [place] 17 T [place] 32 QRS Count 11 Q Onset 225 P Onset 139 P Offset 198 T Offset 424 QTC Fredericia 406 Diagnosis Class Borderline Normal Diagnosis Normal sinus rhythm Early transition Otherwise normal ECG No previous ECGs available Confirmed by Curtis Trejo ([id number]) on 10/24/2022 9:27:[address] [facility] Laboratory - Chemistry and C hemistry - challengeon 10-21-2022 Albumin BCP dye [Mass/Vol] 4.0 g/dL 3.4 - 5.0 [facility] Work Phone: [phone] ALP [Catalytic activity/Vol] 127 U/L 33 - 136 -[facility] Work Phone: [phone] ALT With P-5'-P [Catalytic activity/Vol] 16 U/L 10 - 52 -[facility] Work Phone: [phone] Comment on above: Patients treated wit h Sulfasalazine may generate falsely decreased results for ALT. Anion gap [Moles/Vol] 12 mmol/L 10 - 20 -[facility] Work Phone: [phone] AST With P-5'-P [Catalytic activity/Vol] 21 U/L 9 - 39 -[facility] Work Phone: [phone] Bilirubin [Mass/Vol] 0.6 mg/dL 0.0 - 1.2 [facility] Work Phone: [phone] Calcium [Mass/Vol] 9.3 mg/dL 8.6 - 10.[address] Work Phone: [phone] Chloride [Moles/Vol] 103 mmol/L 98 - 107 [facility] Work Phone: [phone] CO2 [Moles/Vol] 27 mmol/L 21 - 32 -[facility] Work Phone: [phone] Creatinine [Mass/Vol] 1.29 mg/dL See Below -[facility] Work Phone: [phone] Comment on above: Reference Range: 0.5 0 - 1.30 Glucose [Mass/Vol] 103 mg/dL above high threshold 74 - 99 -[facility] Work Phone: [phone] Potassium [Moles/Vol] 3.8 mmol/L 3.5 - 5.3 [facility] [place] Work Phone: [phone] Protein [Mass/Vol] 7.4 g/dL 6.4 - 8.[address] [place] Work Phone: [phone] Sodium [Moles/Vol] 138 mmol/L 136 - [address] [facility] [place] Work Phone: [phone] Urea nitrogen [Mass/Vol] 11 mg/dL 6 - 23 [facility] [place] Work Phone: [phone] - Coagulationon 0 10-21-2022 INR Coag (PPP) [Relative time] 1.4 {INR} above high threshold 0.9 - 1.1 [facility] [place] Work Phone: [phone] PT Coag (PPP) [Time] 16.2 s above high threshold 9.8 - 12.8 [facility] [place] Work Phone: [phone] Comment on above: Note new reference yrn bates as of 08/13/2022 at 10:00am. MRSA Screenon 10-21-2022 Staphylococcus sp identified Org specific cx Nom (Unsp spec) Abnormal [facility] [employer] Work Phone: [phone] Panel Informationon 10-21 [email or web address] ?RetrieveTestByDateTime?Pa [id number]&Date=&Time=14%3a28%3a16% 3a00&TestType=ECG&Site=1&O utputType=PDF&Ext=PDF [facility] [place] Work Phone: [phone] Normal sinus rhythm [facility] [place] Work Phone: [phone] Borderline Normal [facility] [place] Work Phone: -[facility] [place] Work Phone: [phone] -[facility] [place] Work Phone: [phone] [facility] [place] Work Phone: [phone] [facility] [place] Work Phone: [phone] [facility] [place] Work Phone: [phone] [facility] [place] Work Phone: [phone] [facility] [place] Work Phone: [phone] [facility] [place] Work Phone: [phone] [facility] [place] Work Phone: [phone] [facility] [place] Work Phone: [phone] [facility] [place] Work Phone: [phone] [facility] [place] Work Phone: [phone] [facility] [place] Work Phone: [phone] [facility] [place] Work Phone: 61 {mL/min/1.73m2} >[address] [facility] [place] Work Phone: Comment on above: CALCULATIONS OF MEGAN MATED GFR ARE PERFORMED USING THE 2020 CKD-EPI STUDY REFIT EQUATION WITHOUT THE RACE VARIABLE FOR THE IDMS-TRACEABLE CREATININE METHODS.https://jasn.asnjournals.org/content/early//ASN .3430251471 PT/INRon 10-21-2022 PT Coag (PPP) [Time] 16.2 s High 9.8 - 12.8 [facility] Comment on above: Result Comment: Note new reference range as of 08/13/2022 at 10:00am. 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 (procedure may be cancelled if no production truck driver), center location, insurance information Prep Instructions Reviewedyes Prep TypeCHG wipes Instructed to Have No Fluids AfterNPO after midnight How to be AddressedGarry Spoken Language PreferredEnglish Source of Informationpatient Stated Reason for AdmissionBack surgery Primary Contact Name and NumberJose Carlos (brother) [phone] Other Contact Names and NumbersDerick Garsia (friend) [phone] Limitations on Visitors/Phone Callsnone Medications Brought to Hospitalno General Health: Weight in kg90.4 kilogram(s) Weight in wyx936.2 pound(s) Weight Methodactual (measured) Scale Typestanding Height [...] CommentsLives with brother Resource/Environmental Concernsnone Anticipated Transition Tojenison Services Anticipated at Transitionnone Tobacco Use: Tobacco Useno former cigar smoker, quit 15 years ago Pre-op Checklist: Arrival [id number] Arrival Time09:25 Procedure TypeL2-3, L3-4 LAMINECTOMY, L3-4 INSTRUMENTATION, L2-3, L3-4 POSTERIOR LATERAL FUSION, L3-4LATERAL LUMBAR INTERBODY FUSION NPOyes Last Food [id number] 18:30 Last Clear Fluid [id number] 19:00 ID Band On Patientpatient ID (name), falls risk Consent Signedyes H&P Completeyes Anesthesia Assessment Completedpending EKG Performedsee results tab Chest X-Ray Performednot ordered Preop Antibioticssent to OR Beta-sushant Last Dose Date/Yqyp30-Rtl-1365 02:30 Glucose Resultn/a Type and Screen Resultedn/a [...] 04-Nov-2022 05:56 by Moira Marsh (SANTI) Normal [facility] STAPH/MRSA SCREENon 10-22-19 STAPH/MRSA SCREEN PATIENT: ERIK MORALES LOCATION: [facility] BILL#: [id number] : [birth year] AGE: SEX: M ORDERED BY: CURTIS MELÉNDEZ SOURCE: MISC COLLECTED: 10/21/22 14:18 ANTIBIOTICS AT TEDDY.: RECEIVED : 10/21/22 21:56 SITE: R E S U L T S STAPH/MRSA SCREEN FINAL 10/23/22 12:12 ISOLATE1 : Staphylococcus aureus METHICILLIN SENSITIVE STAPHYLOCOCCUS AUREUS (MSSA) Normal [facility] Comment on above: Performed By: #### S TAPH #### [facility] [address] [place] [address] URINALYSIS WITH CULTURE IF I NDICATEDon 10-21-2022 Appearance (U) CLEAR Normal CLEAR [facility] Comment on above: Performed By: #### U ARFX #### [address] [id number] Bilirubin Ql (U) Negative Normal NEGATIVE [facility] Comment on above: Performed By: #### U ARFX #### [address] [id number] Color (U) YELLOW Normal STRAW,YELLO W [facility] Comment on above: Performed By: #### U ARFX #### [address] [id number] Glucose Ql (U) Negative Normal NEGATIVE [facility] Comment on above: Performed By: #### U ARFX #### [address] [id number] Hemoglobin Ql (U) Negative Normal NEGATIVE [facility] Comment on above: Performed By: #### U ARFX #### [address] [place] [id number] Ketones Ql (U) Negative Normal NEGATIVE [facility] Comment on above: Performed By: #### U ARFX #### [address] [id number] Leukocyte esterase Test strip Ql (U) Negative Normal NEGATIVE [facility] Comment on above: Performed By: #### U ARFX #### [address] [id number] Nitrite Ql (U) Negative Normal NEGATIVE [facility] Comment on above: Performed By: #### U ARFX #### [address] [id number] pH (U) 6.0 [pH] Normal 5.0 - 8.0 [facility] Comment on above: Performed By: #### U ARFX #### [address] [id number] Protein Ql (U) Negative Normal NEGATIVE [facility] Comment on above: Performed By: #### U ARFX #### [address] [id number] Specific gravity (U) [Rel density] 1.010 Normal 1.005 - 1.035 [facility] Comment on above: Performed By: #### U ARFX #### [address] [id number] Urobilinogen (U) [Mass/Vol] mg/dL Normal 0.0 - 1.9 [facility] Comment on above: Performed By: #### U ARFX #### [address] [id number] Color (U) YELLOW See Below -[facility] Work Phone: Comment on above: Reference Range: STR AW,YELLOW Glucose Ql (U) Negative NEGATIVE [facility] Work Phone: Ketones Ql (U) Negative NEGATIVE [facility] Work Phone: Leukocyte esterase Test strip Ql (U) Negative NEGATIVE -[facility] [employer] Phone: pH (U) 6.0 [pH] 5.0 - 8.0 -[facility] [employer] Phone: Protein (U) [Mass/Vol] Negative NEGATIVE -[facility] [employer] Work Phone: [phone] RBC (U) [#/Vol] Negative NEGATIVE -[facility] [employer] Work Phone: Specific gravity (U) [Rel density] 1.010 1 See Below -[facility] [employer] Phone: Comment on above: Reference Range: 1.0 05 - 1.035 URINALYSIS WITH CULTURE IF INDICATED Negative NEGATIVE -[facility] [employer] Phone: URINALYSIS WITH CULTURE IF INDICATED <2.0 0.0 - 1.9 -[facility] [employer] Work Phone: URINALYSIS WITH CULTURE IF INDICATED CLEAR CLEAR -[facility] [employer] Phone: Established Visit (Orthopaed ic Surgery)on 09-19-2022 Established Visit (Orthopaedic Surgery) Orders Back pain, Other intervertebral disc degeneration, lumbar region [place] [facility]; Status:Need Information - Financial Authorization; Requested for:[id number]; Osteogenesic Stimulator; Status:Active; Requested for:[id number]; Provider Impressions Assessment: At this time, I [...] had. TREATMENT PLAN: Please refer to Dr. Meléndez?s final assessment and plan for this patient. [...] thoracic and lumbar xrays and MRI in [place]. brought a disc. History of Present IllnessErik [...] to the pain management center down in [place]. Review of Systems Review of systems, past [...] XR Lumbar spine AP and Lateral Normal [facility] [facility] Work Phone: SPINE, LUMBOSACRAL 2 OR 3 EWSon 08-23-2022 SPINE, LUMBOSACRAL 2 OR 3 VIEWS Patient Name: ERIK MORALES STUDY: SPINE, LUMBOSACRAL; 2 OR 3 VIEWS; ; 08/23/2022 1:37 pm INDICATION: pain M51.36: Other intervertebral disc degeneration, lumbar region M54.9: Back pain. ACCESSION NUMBER(S): [id number] ORDERING CLINICIAN: CURTIS MELÉNDEZ FINDINGS: Flexion-extension x-rays [...] Electronically signed by: CURTIS MELÉNDEZ MD Normal [facility] US aortaon 08-16-2022 aorta [facility] [address] Ultrasound Report Signed Patient: Erik Morales MR#: [id number] : 1955 Acct:[id number] Age/Sex: 66 / M ADM Date: 08/15/22 Loc: [facility] Room: Type: [facility] Attending Dr: Bianka Garcia SECTION HAND HELPER-C Ordering Provider: Bianka Garcia APRN Date of [...] Christopher Thao M.D.08/16/2022 10:23 AM Dictation Location: [facility] Tech: Blanquita Gianna Transcribed By: LUIS 08/16/22 1023 Dictated By: Christopher Thao MD 08/16/22 1022 Signed By: 08/16/22 1023 [facility] Abdominal Aorta/Nancy ac/IVC Ultraon 07-31-2022 V[facility] LAB Abdominal Aorta/Iliac/IVC Ultra [address], [address] [place] [address] Vascular Lab Report Abdominal Aorta Iliac Ultrasound/IVC Ultrasound Patient Name: ERIK Mckoy Physician: [id number] Cecilio Go MD, [facility]ER [facility] Study Date: 07/31/2022 Referring CECILIO GO Physician: N/PID: [id number] PCP: Carmen Witt Accession/Order#: [id number] CC Report to: Date of : 1955 Technologist: Karol Hull RDCS Dali Gender: M Technologist 2: Admission Status: Outpatient Location Performed: [facility] Diagnosis/ICD: I71.43-Infrarenal abdominal aortic aneurysm, without rupture Indication: HTN, Hyperlipidemia, Obesity, Former Smoker, Dyspnea, Pulmonary Fibrosis Procedure/CPT: 59468 Duplex Aorta/IVC/Iliac/Bypass Graft-[id number] CONCLUSIONS: Aorta/Common Iliac Arteries/IVC: Infrarenal fusiform abdominal [...] Proximal 0.71 cm 0.96 cm 0.96 cm/s [id number] Cecilio Go MD, FACC Final Normal [facility] Abdominal Aorta/Nancy ac/IVC Ultrasoundon 07-31-2022 [facility] LAB Abdominal Aorta/Iliac/IVC Ultrasound [facility] [address] DO Work Phone: XR [...] IRAIS LORENZANA Date: 2022-07-02 13:50 Normal [facility] Office Visit (Cardiology)on 06-04-2022 Follow-up visit Diagnoses/Problems [...] Weight Tips; Status:Complete - Retrospective Authorization; Done: [id number] Some eating tips that can help you lose weight.; Status:Complete - Retrospective Authorization; Done: [id number] SocHx: Former smoker Tobacco Use Screening; Status:Complete; Done: [id number] Patient Instructions Please bring all medicines, vitamins, [...] rashes. Neurologic (more content not included)... Normal [facility] Tobacco Screening.on 023 Adult depression screening assessment No [facility] 250 DO Work Phone: Fall risk assessment a) No falls within the last year [facility] 250 DO Work Phone: Tobacco use status CPHS b) No [facility] 250 DO Work Phone: CREATININEon 02-18-2022 Creatinine [Mass/Vol] 1.23 mg/dL Normal 0.70-1.30 [facility] Comment on above: Performed By: #### E RUR #### [facility] [address] [address] [address] Arielle Biswas EGFR-AF BHUTANESE >60 Normal >=60 [facility] Comment on above: Performed By: #### E RUR #### [facility] [address] [address] [address] Arielle Biswas EGFR-NON AF BHUTANESE 59 mL/min/1.73m2 Critically low >=60 [facility] Comment on above: Performed By: #### E RUR #### [facility] [address] [place] [address] CHEST W CONon [...] BRITANY TSANG Date: 2022-02-18 15:28 Normal [facility] Office Visit (Cardiology)on 12-11-2021 Follow-up visit Diagnoses/Problems [...] Weight Tips; Status:Complete - Retrospective Authorization; Done: [id number] Some eating tips that can help you lose weight.; Status:Complete - Retrospective Authorization; Done: [id number] SocHx: Former smoker Tobacco Use Screening; Status:Complete; Done: [id number] Patient Instructions Please bring all medicines, vitamins, [...] pulmonary embolism. Recently follow-up CT scan at [facility] revealed resolution of the pulmonary emboli. Some other pathology was noted with densities requiring follow-up imaging in 3 to 6 months which has been arranged through his PCP. He is currently anticoagulated with Eliquis. The patient is contemplating further dental work in December which he should be able to hold anticoagulation prior to. Recent nuclear stress test at [facility] was reviewed and shared with the patient and was normal. He is also known to have normal ejection fraction. He currently has no complaint to report physical examination was only remarkable for 8 pounds weight gain from last visit. He is now in the obesity range recent medical record from [facility] were reviewed with the patient and reviewed [...] palpitations, but (more content not included)... Normal [facility] Tobacco Screening.on 022 Fall risk assessment a) No falls within the last year [facility] [place] 250 DO Work Phone: Tobacco use status CPHS b) No [facility] 250 DO Work Phone: Tobacco Screening. Yes -[facility] [place] 250 DO Work Phone: CTA [...] by: BRITANY TSANG Date: 2021-11-05 11:08 Normal [facility] NM STRESS/REST MULTIon 10-17 NM STRESS/REST MULTI Patient: ERIK MORALES Exam Date: 10/17/2021 : 1955 Gender:M Ordering : DR CARMEN WITT . Admission #: [id number] Family : Order #: [id number] CLICK HERE TO VIEW EXAM RADIOLOGY REPORT [...] M.D. on 10/17/2021 at 13:48 Normal [facility] T4, T3U, FTI LABCORPon 10-10 Free Thyroxine Index 2.1 Normal 1.2-4.9 [facility] Comment on above: Performed By: #### E RUR #### [facility] [address] [address] [address] Arielle Biswas T3 Uptake 28 % Normal 24-39 [facility] Comment on above: Performed By: #### E RUR #### [facility] [address] [place], [place] [address] Dr. Arielle Biswas T4 [Mass/Vol] 7.5 ug/dL Normal 4.5-12.[address] [facility] Comment on above: Performed By: #### E RUR #### [facility] [address] [place], [place] [address] Dr. Arielle Biswas BNPon 10-09-2021 Natriuretic peptide B (Bld) [Mass/Vol] 319.0 pg/mL Normal <=900.0 [facility] Comment on above: Performed By: #### B SECTION HAND HELPER, TSH, CMP #### [facility] [address] [place] [address] Dr. Arielle Biswas CBC AUTO DIFFon 10-09-2021 BASO # 0.1 103/ul Normal 0.0-0.1 [facility] Comment on above: Performed By: #### C BC #### [facility] [address] [place] [address] Dr. Arielle Biswas Basophils/100 WBC (Bld) 1.3 % Normal 0.2-2.0 [facility] Comment on above: Performed By: #### C BC #### [facility] [address] [place] [address] Dr. Arielle Biswas EO # 0.2 103/ul Normal 0.0-0.7 [facility] Comment on above: Performed By: #### C BC #### [facility] [address] [place] [address] Dr. Arielle Biswas Eosinophils/100 WBC (Bld) 3.0 % Normal 0.9-7.0 [facility] Comment on above: Performed By: #### C BC #### [facility] [address] [place] [address] Dr. Arielle Biswas Erythrocyte distribution width (RBC) [Ratio] 13.5 % Normal 11.0-15.0 [facility] Comment on above: Performed By: #### C BC #### [facility] [address] [place] [address] Dr. Arielle Biswas Hematocrit (Bld) [Volume fraction] 41.8 % Critically low 42.0-54.0 [facility] Comment on above: Performed By: #### C BC #### [facility] [address] [place] [address] Dr. Arielle Biswas Hemoglobin (Bld) [Mass/Vol] 13.6 g/dL Critically low 14.0-18.0 [facility] Comment on above: Performed By: #### C BC #### [facility] [address] [place] [address] Dr. Arielle Biswas IG # 0.03 10e3/ul Normal 0.00-0.03 [facility] Comment on above: Performed By: #### C BC #### [facility] [address] [place] [address] Dr. Arielle Biswas IG % 0.4 % Normal 0.0-0.5 [facility] Comment on above: Performed By: #### C BC #### [facility] [address] [place] [address] Dr. Arielle Biswas LYMPH # 1.2 103/ul Normal 1.2-3.8 [facility] Comment on above: Performed By: #### C BC #### [facility] [address] [place] [address] Dr. Arielle Biswas Lymphocytes/100 WBC (Bld) 16.5 % Critically low 20.5-60.0 [facility] Comment on above: Performed By: #### C BC #### [facility] [address] [place] [address] Dr. Arielle Biswas MANUAL DIFF REQ NO Normal [facility] Comment on above: Performed By: #### C BC #### [facility] [address] [place] [address] Dr. Arielle Biswas MCH (RBC) [Entitic mass] 31.2 pg Normal 25.9-34.0 [facility] Comment on above: Performed By: #### C BC #### [facility] [address] [place] [address] Dr. Arielle Biswas MCHC (RBC) [Mass/Vol] 32.5 g/dL Normal 29.9-35.2 [facility] Comment on above: Performed By: #### C BC #### [facility] [address] [place] [address] Dr. Arielle Biswas MCV (RBC) [Entitic vol] 95.9 fL Critically high 80.0-94.0 [facility] Comment on above: Performed By: #### C BC #### [facility] [address] [place] [address] Dr. Arielle Biswas MONO # 0.8 103/ul Normal 0.3-0.8 [facility] Comment on above: Performed By: #### C BC #### [facility] [address] [address] [address] Arielle Biswas Monocytes/100 WBC (Bld) 11.5 % Normal 1.7-12.0 [facility] Comment on above: Performed By: #### C BC #### [facility] [address] [address] [address] Arielle Biswas NEUT # 4.7 103/ul Normal 1.4-6.5 [facility] Comment on above: Performed By: #### C BC #### [facility] [address] [place] [address] Dr. Arielle Biswas Neutrophils/100 WBC (Bld) 67.3 % Normal 43.0-75.0 [facility] Comment on above: Performed By: #### C BC #### [facility] [address] [place] [address] Dr. Arielle Biswas Platelet mean volume (Bld) [Entitic vol] 10.2 fL Normal 9.5-13.5 [facility] Comment on above: Performed By: #### C BC #### [facility] [address] [place] [address] Dr. Arielle Biswas PLT 243 103/ul Normal 150-450 [facility] Comment on above: Performed By: #### C BC #### [facility] [address] [place] [address] Dr. Arielle Biswas RBC 4.36 106/ul Critically low 4.70-6.10 [facility] Comment on above: Performed By: #### C BC #### [facility] [address] [place] [address] Dr. Arielle Biswas WBC 7.0 103/ul Normal 4.0-11.0 [facility] Comment on above: Performed By: #### C BC #### [facility] [address] [place] [address] Dr. Arielle Biswas D-DIMERon 10-09-2021 D-DIMER 0.30 mg/L FEU Normal <=0.[address] [facility] Comment on above: Performed By: #### E RUR #### [facility] [address] [place] [address] Dr. Arielle Biswas D-DIMER COMMENTS SEE BELOW Normal [facility] Comment on above: Result Comment: Incr eases [...] hospitalization. Performed By: #### E RUR #### [facility] [address] [place] [address] Dr. Arielle Biswas PROF 14(COMP METB)on 022 Albumin [Mass/Vol] 3.0 g/dL Critically low 3.4-5.0 [facility] Comment on above: Performed By: #### B SECTION HAND HELPER, TSH, CMP #### [facility] [address] [place] [address] Dr. Arielle Biswas Albumin/Globulin [Mass ratio] 0.8 {ratio} Normal [facility] Comment on above: Performed By: #### B SECTION HAND HELPER, TSH, CMP #### [facility] [address] [place] [address] Dr. Arielle Biswas ALP [Catalytic activity/Vol] 120 U/L Critically high 46-116 [facility] Comment on above: Performed By: #### B SECTION HAND HELPER, TSH, CMP #### [facility] [address] [place] [address] Dr. Arielle Biswas ALT [Catalytic activity/Vol] 21 U/L Normal 16-63 [facility] Comment on above: Performed By: #### B SECTION HAND HELPER, TSH, CMP #### [facility] [address] [place] [address] Dr. Arielle Biswas Anion gap [Moles/Vol] 9.9 mmol/L Normal [facility] Comment on above: Performed By: #### B SECTION HAND HELPER, TSH, CMP #### [facility] [address] [address] [address] Arielle Biswas AST [Catalytic activity/Vol] 20 U/L Normal 15-37 [facility] Comment on above: Performed By: #### B SECTION HAND HELPER, TSH, CMP #### [facility] [address] [address] [address] Arielle Biswas Bilirubin [Mass/Vol] 0.6 mg/dL Normal 0.2-1.0 [facility] Comment on above: Performed By: #### B SECTION HAND HELPER, TSH, CMP #### [facility] [address] [address] [address] Arielle Biswas Calcium [Mass/Vol] 8.8 mg/dL Normal 8.5-10.1 [facility] Comment on above: Performed By: #### B SECTION HAND HELPER, TSH, CMP #### [facility] [address] [place] [address] Dr. Arielle Biswas Chloride [Moles/Vol] 103 mmol/L Normal 98-107 [facility] Comment on above: Performed By: #### B SECTION HAND HELPER, TSH, CMP #### [facility] [address] [address] [address] Arielle Biswas CO2 [Moles/Vol] 29.0 mmol/L Normal 21.0-32.0 [facility] Comment on above: Performed By: #### B SECTION HAND HELPER, TSH, CMP #### [facility] [address] [address] [address] Arielle Biswas Creatinine [Mass/Vol] 1.23 mg/dL Normal 0.70-1.30 [facility] Comment on above: Performed By: #### B SECTION HAND HELPER, TSH, CMP #### [facility] [address] [address] [address] Arielle Biswas EGFR-AF BHUTANESE >60 Normal >=60 [facility] Comment on above: Performed By: #### B SECTION HAND HELPER, TSH, CMP #### [facility] [address] [place] [address] Dr. Arielle Biswas EGFR-NON AF BHUTANESE 59 mL/min/1.73m2 Critically low >=60 [facility] Comment on above: Performed By: #### B SECTION HAND HELPER, TSH, CMP #### [facility] [address] [place] [address] Dr. Arielle Biswas Globulin (S) [Mass/Vol] 3.7 g/dL Normal [facility] Comment on above: Performed By: #### B SECTION HAND HELPER, TSH, CMP #### [facility] [address] [place] [address] Dr. Arielle Biswas Glucose [Mass/Vol] 95 mg/dL Normal 74-106 [facility] Comment on above: Performed By: #### B SECTION HAND HELPER, TSH, CMP #### [facility] [address] [place] [address] Dr. Arielle Biswas Potassium [Moles/Vol] 3.9 mmol/L Normal 3.5-5.1 [facility] Comment on above: Performed By: #### B SECTION HAND HELPER, TSH, CMP #### [facility] [address] [place] [address] Dr. Arielle Biswas Protein [Mass/Vol] 6.7 g/dL Normal 6.4-8.2 [facility] Comment on above: Performed By: #### B SECTION HAND HELPER, TSH, CMP #### [facility] [address] [place] [address] Dr. Arielle Biswas Sodium [Moles/Vol] 138 mmol/L Normal 136-145 [facility] Comment on above: Performed By: #### B SECTION HAND HELPER, TSH, CMP #### [facility] [address] [place] [address] Dr. Arielle Biswas Urea nitrogen [Mass/Vol] 13.0 mg/dL Normal 7.0-18.0 [facility] Comment on above: Performed By: #### B SECTION HAND HELPER, TSH, CMP #### [facility] [address] [place] [address] Dr. Arielle Biswas Urea nitrogen/Creatinine [Mass ratio] 10.6 mg/mg Normal [facility] Comment on above: Performed By: #### B SECTION HAND HELPER, TSH, CMP #### [facility] [address] [place] [address] Dr. Arielle Biswas TSHon 10-09-2021 TSH 0.393 uIU/mL Normal 0.358-3.[address] [facility] Comment on above: Performed By: #### B SECTION HAND HELPER, TSH, CMP #### [facility] [address] [place] [address] Dr. Arielle Biswas Tobacco Screening.on 022 Adult depression screening assessment No [facility] 250 DO Work Phone: Fall risk assessment a) No falls within the last year [facility] 250 DO Work Phone: Tobacco use status CPHS b) No [facility] [place] 250 DO Work Phone: CARDIAC DAVON 3-6on 2 CK [Catalytic activity/Vol] 80 U/L Normal 39-308 [facility] Comment on above: Performed By: #### E RUR #### [facility] [address] [place] [address] Dr. Arielle Biswas CK.MB [Mass/Vol] 2.19 ng/mL Normal <=3.60 [facility] Comment on above: Performed By: #### E RUR #### [facility] [address] [place] [address] Dr. Arielle Biswas HSTROP 152.1 pg/mL Critically high 4.0-76.1 [facility] Comment on above: Result Comment: CUT- OFF POINTS HAVE BEEN ESTABLISHED BASED ON THE FOURTH UNIVERSAL DEFINITIONS OF MYOCARDIAL INFARCTION. THE UPPER REFERENCE LIMIT (URL) OF TROPONIN, DEFINED THE 99TH PERCENTILE OF cTnI DISTRIBUTION IN A REFERENCE POPULATION, HAS BEEN CONFIRMED THE DECISION THRESHOLD FOR NM DIAGNOSIS. repeated Performed By: #### E RUR #### [facility] [address] [place] [address] Dr. Arielle Biswas CARDIAC DAVON ADMITon 022 CK [Catalytic activity/Vol] 32 U/L Critically low 39-308 [facility] Comment on above: Performed By: #### B MP, CMADM #### [facility] [address] [place] [address] Dr. Arielle Biswas CK.MB [Mass/Vol] 2.01 ng/mL Normal <=3.60 [facility] Comment on above: Performed By: #### B AMANDA ESTES #### [facility] [address] [place] [address] Dr. Arielle Biswas HSTROP 144.5 pg/mL Critically high 4.0-76.1 [facility] Comment on above: Result Comment: CUT- OFF POINTS HAVE BEEN ESTABLISHED BASED ON THE FOURTH UNIVERSAL DEFINITIONS OF MYOCARDIAL INFARCTION. THE UPPER REFERENCE LIMIT (URL) OF TROPONIN, DEFINED THE 99TH PERCENTILE OF cTnI DISTRIBUTION IN A REFERENCE POPULATION, HAS BEEN CONFIRMED THE DECISION THRESHOLD FOR NM DIAGNOSIS. repeated Performed By: #### B AMANDA ESTES #### [facility] [address] [place] [address] Dr. Arielle Biswas PJ 39 ng/mL Normal 16-96 [facility] Comment on above: Performed By: #### B AMANDA ESTES #### [facility] [address] [place] [address] Dr. Arielle Biswas CBC AUTO DIFFon 07-14-2021 BASO # 0.1 103/ul Normal 0.0-0.1 [facility] Comment on above: Performed By: #### E RUR #### [facility] [address] [place] [address] Dr. Arielle Biswas Basophils/100 WBC (Bld) 0.5 % Normal 0.2-2.0 [facility] Comment on above: Performed By: #### E RUR #### [facility] [address] [place] [address] Dr. Arielle Biswas EO # 0.1 103/ul Normal 0.0-0.7 [facility] Comment on above: Performed By: #### E RUR #### [facility] [address] [place] [address] Dr. Arielle Biswas Eosinophils/100 WBC (Bld) 0.6 % Critically low 0.9-7.0 [facility] Comment on above: Performed By: #### E RUR #### [facility] [address] [place] [address] Dr. Arielle Biswas Erythrocyte distribution width (RBC) [Ratio] 14.6 % Normal 11.0-15.0 [facility] Comment on above: Performed By: #### E RUR #### [facility] [address] [place] [address] Dr. Arielle Biswas Hematocrit (Bld) [Volume fraction] 45.5 % Normal 42.0-54.0 [facility] Comment on above: Performed By: #### E RUR #### [facility] [address] [place] [address] Dr. Arielle Biswas Hemoglobin (Bld) [Mass/Vol] 14.5 g/dL Normal 14.0-18.0 [facility] Comment on above: Performed By: #### E RUR #### [facility] [address] [place] [address] Dr. Arielle Biswas IG # 0.13 10e3/ul Critically high 0.00-0.03 [facility] Comment on above: Performed By: #### E RUR #### [facility] [address] [place] [address] Dr. Arielle Biswas IG % 0.8 % Critically high 0.0-0.5 [facility] Comment on above: Performed By: #### E RUR #### [facility] [address] [place] [address] Dr. Arielle Biswas LYMPH # 1.4 103/ul Normal 1.2-3.8 [facility] Comment on above: Performed By: #### E RUR #### [facility] [address] [place] [address] Dr. Arielle Biswas Lymphocytes/100 WBC (Bld) 8.7 % Critically low 20.5-60.0 [facility] Comment on above: Performed By: #### E RUR #### [facility] [address] [place] [address] Dr. Arielle Biswas MANUAL DIFF REQ NO Normal [facility] Comment on above: Performed By: #### E RUR #### [facility] [address] [place] [address] Dr. Arielle Biswas MCH (RBC) [Entitic mass] 30.5 pg Normal 25.9-34.0 [facility] Comment on above: Performed By: #### E RUR #### [facility] [address] [place] [address] Dr. Arielle Biswas MCHC (RBC) [Mass/Vol] 31.9 g/dL Normal 29.9-35.2 [facility] Comment on above: Performed By: #### E RUR #### [facility] [address] [place] [address] Dr. Arielle Biswas MCV (RBC) [Entitic vol] 95.6 fL Critically high 80.0-94.0 [facility] Comment on above: Performed By: #### E RUR #### [facility] [address] [place] [address] Dr. Arielle Biswas MONO # 1.1 103/ul Critically high 0.3-0.8 [facility] Comment on above: Performed By: #### E RUR #### [facility] [address] [place] [address] Dr. Arielle Biswas Monocytes/100 WBC (Bld) 7.1 % Normal 1.7-12.0 [facility] Comment on above: Performed By: #### E RUR #### [facility] [address] [place] [address] Dr. Arielle Biswas NEUT # 12.9 103/ul Critically high 1.4-6.5 [facility] Comment on above: Performed By: #### E RUR #### [facility] [address] [place] [address] Dr. Arielle Biswas Neutrophils/100 WBC (Bld) 82.3 % Critically high 43.0-75.0 [facility] Comment on above: Performed By: #### E RUR #### [facility] [address] [place] [address] Dr. Arielle Biswas Platelet mean volume (Bld) [Entitic vol] 9.7 fL Normal 9.5-13.5 [facility] Comment on above: Performed By: #### E RUR #### [facility] [address] [address] [address] Arielle Biswas PLT 206 103/ul Normal 150-450 [facility] Comment on above: Performed By: #### E RUR #### [facility] [address] [address] [address] Arielle Biswas RBC 4.76 106/ul Normal 4.70-6.10 [facility] Comment on above: Performed By: #### E RUR #### [facility] [id number] Arielle Biswas WBC 15.6 103/ul Critically high 4.0-11.0 [facility] Comment on above: Performed By: #### E RUR #### [facility] [address] [place] [address] Dr. Arielle Biswas CTA CHEST WO W [...] H (more content not included)... Normal [facility] Covid-19 PCR ([facility])on 06-25 SARS-CoV-2 (COVID-19) RNA ELKIN+probe Ql (Unsp spec) Not detected Normal NOT DETECTED [facility] Comment on above: Result Comment: When diagnostic testing is negative, the possibility of a false negative should be considered in the context of a patient's recent exposures and the presence of clinical signs and symptoms consistent with SARS-CoV-2. This test is not yet approved or cleared by the [place] Food and Drug Administration (FDA). This test was developed by [employer], [place], [place]. The performance characteristics of this test were validated by [facility]. The results are not intended to be used as the sole means for clinical diagnosis or patient management decisions. [facility] is authorized under Clinical Laboratory Improvement Amendments [...] for this test is supported by the [place] of Health and Human Service's declaration that [...] used). Performed By: #### E RUR #### [facility] [address] [place] [address] Dr. Arielle Biswas ER URINE PROFILEon 2 Bilirubin Ql (U) Negative Normal NEGATIVE [facility] Comment on above: Performed By: #### E RUR #### [facility] [address] [place] [address] Dr. Arielle Biswas Clarity (U) CLEAR Normal CLEAR [facility] Comment on above: Performed By: #### E RUR #### [facility] [address] [place] [address] Dr. Arielle Biswas Color (U) LT. YELLOW Normal YELLOW [facility] Comment on above: Performed By: #### E RUR #### [facility] [address] [place] [address] Dr. Arielle Biwsas ERUAHD A micrscopic examina tion will be performed if indicated. Normal [facility] Comment on above: Performed By: #### E RUR #### [facility] [address] [place] [address] Dr. Arielle Biswas Glucose Ql (U) Negative Normal NEGATIVE The [facility] Comment on above: Performed By: #### E RUR #### [facility] [address] [place] [address] Dr. Arielle Biswas Hemoglobin Ql (U) Negative Normal NEGATIVE The [facility] [place] Comment on above: Performed By: #### E RUR #### [facility] [address] [place] [address] Dr. Arielle Biwsas Ketones Ql (U) Negative Normal NEGATIVE The [facility] Comment on above: Performed By: #### E RUR #### [facility] [address] [place] [address] Dr. Arielle Biswas LEUKOCYTES Negative Normal NEGATIVE [facility] Comment on above: Performed By: #### E RUR #### [facility] [address] [place] [address] Dr. Arielle Biswas Nitrite Ql (U) Negative Normal NEGATIVE The [facility] Comment on above: Performed By: #### E RUR #### [facility] [address] [place] [address] Dr. Arielle Biswas pH (U) 6.0 [pH] Normal 5-9 [facility] Comment on above: Performed By: #### E RUR #### [facility] [address] [place] [address] Dr. Arielle Biswas SPEC GRAVITY 1.005 Normal 1.005-<=1.0 25 [facility] Comment on above: Performed By: #### E RUR #### [facility] [address] [place] [address] Dr. Arielle Biswas UA PROTEIN Negative Normal NEGATIVE/ TRACE [facility] Comment on above: Performed By: #### E RUR #### [facility] [address] [place] [address] Dr. Arielle Biswas UR MICRO IND NOT INDICATED Normal The [facility] Comment on above: Performed By: #### E RUR #### [facility] [address] [place] [address] Dr. Arielle Biswas Urobilinogen Qn (U) 0.2 {Fernando'U}/dL Normal 0.2 - 1. 0 [facility] Comment on above: Performed By: #### E RUR #### [facility] [address] [place] [address] Dr. Arielle Biswas LACTATE/LACTIC ACIDon 2021 Lactate [Moles/Vol] 3.0 mmol/L Critically high 0.4-1.9 [facility] Comment on above: Result Comment: repe ated Performed By: #### E RUR #### [facility] [address] [address] [address] Arielle Biswas PROF CHEM 8 (BAS METB)on Anion gap [Moles/Vol] 14.0 mmol/L Normal [facility] Comment on above: Performed By: #### B FRANKLYN, CMADM #### [facility] [address] [place] [address] Dr. Arielle Biswas Calcium [Mass/Vol] 8.9 mg/dL Normal 8.5-10.1 [facility] Comment on above: Performed By: #### B FRANKLYN, CMADM #### [facility] [address] [address] [address] Arielle Biswas Chloride [Moles/Vol] 96 mmol/L Critically low 98-107 [facility] Comment on above: Performed By: #### B FRANKLYN, CMADM #### [facility] [address] [place] [address] Dr. Arielle Biswas CO2 [Moles/Vol] 26.5 mmol/L Normal 21.0-32.0 [facility] Comment on above: Performed By: #### B FRANKLYN, CMADM #### [facility] [address] [address] [address] Arielle Biswas Creatinine [Mass/Vol] 1.43 mg/dL Critically high 0.70-1.30 [facility] Comment on above: Performed By: #### B FRANKLYN, CMADM #### [facility] [address] [address] [address] Arielle Biswas EGFR-AF BHUTANESE 60 mL/min/1.73m2 Normal >=60 [facility] Comment on above: Performed By: #### B FRANKLYN, CMADM #### [facility] [address] [address] [address] Arielle Biswas EGFR-NON AF BHUTANESE 50 mL/min/1.73m2 Critically low >=60 [facility] Comment on above: Performed By: #### B FRNAKLYN, CMADM #### [facility] [address] [address] [address] Arielle Biswas Glucose [Mass/Vol] 122 mg/dL Critically high 74-106 T [facility] Comment on above: Performed By: #### B FRANKLYN, CMADM #### [facility] [address] [place] [address] Dr. Arielle Biswas Potassium [Moles/Vol] 3.5 mmol/L Normal 3.5-5.1 [facility] Comment on above: Performed By: #### B FRANKLYN, CMADM #### [facility] [address] [place] [address] Dr. Arielle Biswas Sodium [Moles/Vol] 133 mmol/L Critically low 136-145 [facility] Comment on above: Performed By: #### B FRANKLYN, CMADM #### [facility] [address] [place] [address] Dr. Arielle Biswas Urea nitrogen [Mass/Vol] 12.0 mg/dL Normal 7.0-18.0 [facility] Comment on above: Performed By: #### B FRANKLYN, CMADM #### [facility] [address] [place] [address] Dr. Arielle Biswas Urea nitrogen/Creatinine [Mass ratio] 8.4 mg/mg Normal [facility] Comment on above: Performed By: #### B FRANKLYN, CMADM #### [facility] [address] [place] [address] Dr. Arielle Biswas PROTIMEon 07-14-2021 INR Coag (PPP) [Relative time] 0.99 {INR} Normal [facility] Comment on above: Performed By: #### P TT, PT #### [facility] [address] [place] [address] Dr. Arielle Biswas INR GUIDELINES SEE BELOW Normal [facility] Comment on above: Result Comment: YANG RED INR: 2.0 - 3.0 CONDITIONS NOT LISTED BELOW 2.5 - 3.5 FOR PROSTHETIC HEART VALVE REPLACEMENT 2.5 - 3.5 RECURRENT THROMBOSIS Performed By: #### P TT, PT #### [facility] [address] [place] [address] Dr. Arielle Biswas PT Coag (PPP) [Time] 10.7 s Normal 9.0-11.6 [facility] Comment on above: Performed By: #### P TT, PT #### [facility] [address] [place], [place] [address] Dr. Arielle Biswas PTTon 07-14-2021 aPTT Coag (Bld) [Time] 26.6 s Normal 22.3-36.2 [facility] Comment on above: Performed By: #### P TT, PT #### [facility] [address] [place], [place] [address] Dr. Arielle Biswas Tobacco Screening.on 022 Fall risk assessment a) No falls within the last year [facility] [place] [address] DO Work Phone: Tobacco use status CPHS b) No [facility] [place] [address] DO Work Phone: [phone] Tobacco Screening. Yes [facility] [address] DO Work Phone: [phone] Tobacco Screening.on 021 Fall risk assessment a) No falls within the last year [facility] [place] [address] DO Work Phone: [phone] Tobacco use status CPHS b) No [facility] [place] [address] DO Work Phone: [phone] Tobacco Screening.on 021 Fall risk assessment a) No falls within the last year [facility] [place] 250 DO Work Phone: [phone] Tobacco use status CPHS b) No [facility] [place] 250 DO Work Phone: [phone] Vital Signs Date Time Vital Sign Value Performing Clinician Facility 12-23-2022 10:50-0400 Blood Pressure Location Marino SPEAR [facility] 12-23-2022 10:50-0400 Diastolic blood pressure 62 mm[Hg] Marino SPEAR [facility] 12-23-2022 10:50-0400 Heart rate 69 /min Marino SPEAR [facility] 12-23-2022 10:50-0400 Respiratory rate 16 /min Marino SPEAR [facility] 12-23-2022 10:50-0400 Systolic blood pressure 95 mm[Hg] Marino SPEAR [facility] 11-07-2022 10:56-0400 Body temperature 98.6 [degF] Carmen Hoy Other Phone: [facility] 11-07-2022 10:56-0400 Diastolic blood pressure 69 mm[Hg] Carmen Hoy Other Phone: [facility] 11-07-2022 10:56-0400 Heart rate 97 /min Carmen Hoy Other Phone: [facility] 11-07-2022 10:56-0400 Respiratory rate 16 /min Carmen Hoy Other Phone: [facility] 11-07-2022 10:56-0400 SaO2% (BldA) [Mass fraction] 96 % Carmen Hoy Other Phone: [facility] 11-07-2022 10:56-0400 Systolic blood pressure 113 mm[Hg] Carmen Hoy Other Phone: [facility] 10-30-2022 10:00-0400 Body height 175.26 cm Danna Violeta Other [employer] [facility] Other 10-30-2022 10:00-0400 Body mass index (BMI) [Ratio] 30.27 kg/m2 Danna Violeta Other [employer] Other 10-30-2022 10:00-0400 Body temperature 97 [degF] Danna Violeta Other [employer] Other 10-30-2022 10:00-0400 Body weight 92.99 kg Danna Violeta Other [employer] Other 10-30-2022 10:00-0400 Diastolic blood pressure 75 mm[Hg] Danna Violeta Other [employer] Other 10-30-2022 10:00-0400 Respiratory rate 20 /min Danna Violeta Other [employer] Other 10-30-2022 10:00-0400 SaO2% (BldA) [Mass fraction] 96 % Danna Violeta Other [employer] Other 10-30-2022 10:00-0400 Systolic blood pressure 116 mm[Hg] Danna Violeta Other [employer] Other 08-23-2022 12:57-0400 Body height 175.26 cm [employer] Work Phone: [facility] [place] Work Phone: 08-23-2022 12:57-0400 Body mass index (BMI) [Ratio] 30.57 kg/m2 Carmen [employer] [place] Work Phone: [facility] [place] Work Phone: 08-23-2022 12:57-0400 Body surface area Derived from formula 2.1 m2 Carmen [employer] [place] Work Phone: [facility] [place] Work Phone: 08-23-2022 12:57-0400 Body weight 93.9 kg Carmen M Hoy Work Phone: [facility] [place] Work Phone: 08-20-2022 11:30-0400 Body height 175.26 cm Danna Violeta Other [employer] Other 08-20-2022 11:30-0400 Body mass index (BMI) [Ratio] 30.42 kg/m2 Danna Violeta Other [employer] Other 08-20-2022 11:30-0400 Body temperature 96.8 [degF] Danna Violeta Other [employer] Other 08-20-2022 11:30-0400 Body weight 93.44 kg Danna Violeta Other [employer] Other 08-20-2022 11:30-0400 Diastolic blood pressure 80 mm[Hg] Danna Violeta Other [employer] Other 08-20-2022 11:30-0400 Respiratory rate 20 /min Danna Violeta Other [employer] Other 08-20-2022 11:30-0400 SaO2% (BldA) [Mass fraction] 97 % Danna Violeta Other [employer] Other 08-20-2022 11:30-0400 Systolic blood pressure 142 mm[Hg] Danna Violeta Other [employer] Other 08-15-2022 09:30-0400 Body height 175.26 cm Bianka Garcia Other [employer] Other 08-15-2022 09:30-0400 Body mass index (BMI) [Ratio] 30.57 kg/m2 Bianka Garcia Other [employer] Other 08-15-2022 09:30-0400 Body temperature 96.7 [degF] Bianka Garcia Other [facility] Other 08-15-2022 09:30-0400 Body weight 93.9 kg Bianka Garcia Other [employer] Other 08-15-2022 09:30-0400 Diastolic blood pressure 70 mm[Hg] Bianka Garcia Other [employer] Other 08-15-2022 09:30-0400 SaO2% (BldA) [Mass fraction] 98 % Bianka Garcia Other [employer] Other 08-15-2022 09:30-0400 Systolic blood pressure 118 mm[Hg] Bianka Garcia Other [employer] Other 06-04-2022 11:33-0400 Body height 175.26 cm Carmen [employer] Work Phone: [facility] [address] DO Work Phone: 06-04-2022 11:33-0400 Body mass index (BMI) [Ratio] 30.13 kg/m2 Carmen [employer] [place] Work Phone: [facility] [address] DO Work Phone: 06-04-2022 11:33-0400 Body surface area Derived from formula 2.08 m2 Carmen [employer] [place] Work Phone: [facility] 250 DO Work Phone: 06-04-2022 11:33-0400 Body weight 92.53 kg Carmen M Hoy Work Phone: [facility] 250 DO Work Phone: 06-04-2022 11:33-0400 Diastolic blood pressure 72 mm[Hg] Carmen M Hoy Work Phone: [facility] [address] DO Work Phone: 06-04-2022 11:33-0400 Heart rate 68 /min Carmen Witt Work Phone: [facility] 250 DO Work Phone: 06-04-2022 11:33-0400 Systolic blood pressure 110 mm[Hg] Carmen Witt Work Phone: [facility] 250 DO Work Phone: 02-05-2022 15:30-0500 Body height 175.26 cm Danna Violeta Other [employer] Other 02-05-2022 15:30-0500 Body mass index (BMI) [Ratio] 29.97 kg/m2 Danna Violeta Other [employer] Other 02-05-2022 15:30-0500 Body temperature 98.4 [degF] Danna Violeta Other [employer] Other 02-05-2022 15:30-0500 Body weight 92.08 kg Danna Violeta Other [employer] Other 02-05-2022 15:30-0500 Diastolic blood pressure 83 mm[Hg] Danna Violeta Other [employer] Other 02-05-2022 15:30-0500 Respiratory rate 20 /min Danna Violeta Other [employer] Other 02-05-2022 15:30-0500 SaO2% (BldA) [Mass fraction] 96 % Danna Violeta Other [employer] Other 02-05-2022 15:30-0500 Systolic blood pressure 143 mm[Hg] Danna Violeta Other [employer] Other 12-11-2021 11:39-0400 Body height 175.26 cm Jean Saeed Naderer Work Phone: [facility] 250 DO Work Phone: 12-11-2021 11:39-0400 Body mass index (BMI) [Ratio] 30.72 kg/m2 Jean Saeed Naderer Work Phone: [facility] 250 DO Work Phone: 12-11-2021 11:39-0400 Body surface area Derived from formula 2.1 m2 Jean Saeed Naderer Work Phone: [facility] [facility] DO Work Phone: 12-11-2021 11:39-0400 Body weight 94.35 kg Jean Saeed Naderer Work Phone: [facility] [place] 250 DO Work Phone: 12-11-2021 11:39-0400 Diastolic blood pressure 72 mm[Hg] Jean Christophe Naderer Work Phone: [facility] DO Work Phone: 12-11-2021 11:39-0400 Heart rate 72 /min Jean Saeed Naderer Work Phone: [facility] DO Work Phone: 12-11-2021 11:39-0400 Systolic blood pressure 124 mm[Hg] Jean A Naderer Work Phone: [facility] 250 DO Work Phone: 08-21-2021 15:00-0400 Body height 175.26 cm Danna Mcdaniel Other [employer] Other 08-21-2021 15:00-0400 Body mass index (BMI) [Ratio] 28.35 kg/m2 Danna Violeta Other [employer] Other 08-21-2021 15:00-0400 Body temperature 97.5 [degF] Danna Violeta Other [employer] Other 08-21-2021 15:00-0400 Body weight 87.09 kg Danna Violeta Other [employer] Other 08-21-2021 15:00-0400 Diastolic blood pressure 70 mm[Hg] Danna Violeta Other [employer] Other 08-21-2021 15:00-0400 Respiratory rate 20 /min Danna Violeta Other [employer] Other 08-21-2021 15:00-0400 SaO2% (BldA) [Mass fraction] 94 % Danna Violeta Other [employer] Other 08-21-2021 15:00-0400 Systolic blood pressure 110 mm[Hg] Danna Violeta Other [employer] Other 08-15-2021 11:30-0400 Body height 175.26 cm Julian Matthews Other [employer] Other 08-15-2021 11:30-0400 Body mass index (BMI) [Ratio] 28.06 kg/m2 Julian Matthews Other [employer] Other 08-15-2021 11:30-0400 Body temperature 97.5 [degF] Julian Matthews Other [employer] Other 08-15-2021 11:30-0400 Body weight 86.18 kg Julian Matthews Other [employer] Other 08-15-2021 11:30-0400 Diastolic blood pressure 68 mm[Hg] Julian Matthews Other [employer] Other 08-15-2021 11:30-0400 SaO2% (BldA) [Mass fraction] 98 % Julian Matthews Other [employer] Other 08-15-2021 11:30-0400 Systolic blood pressure 102 mm[Hg] Julian Matthews Other [employer] Other 08-02-2021 08:32-0400 Body height 175.26 cm Jean Saeed Naderer Work Phone: [employer] [address] DO Work Phone: 08-02-2021 08:32-0400 Body mass index (BMI) [Ratio] 28.8 kg/m2 Jean Saeed Naderer Work Phone: [facility] 250 DO Work Phone: 08-02-2021 08:32-0400 Body surface area Derived from formula 2.04 m2 Jean Saeed Naderer Work Phone: [employer] [employer] 250 DO Work Phone: 08-02-2021 08:32-0400 Body weight 88.45 kg Jean A Naderer Work Phone: [facility] [employer] 250 DO Work Phone: 08-02-2021 08:32-0400 Diastolic blood pressure 62 mm[Hg] Jean Saeed Naderer Work Phone: [facility] Work Phone: 08-02-2021 08:32-0400 Heart rate 68 /min Jean A Naderer Work Phone: [facility] DO Work Phone: 08-02-2021 08:32-0400 Systolic blood pressure 108 mm[Hg] Jean A Naderer Work Phone: [facility] 250 DO Work Phone: 07-14-2021 00:00-0400 60 1 Jean A Naderer Work Phone: [facility] DO Work Phone: Comment on above: [id number] 04-30-2021 13:22-0500 Body height 175.26 cm Jean A Naderer Work Phone: [facility] [place] 250 DO Work Phone: 04-30-2021 13:22-0500 Body mass index (BMI) [Ratio] 29.45 kg/m2 Jean A Naderer Work Phone: [facility] 250 DO Work Phone: 04-30-2021 13:22-0500 Body surface area Derived from formula 2.06 m2 Jean A Naderer Work Phone: [facility] [place] 250 DO Work Phone: 04-30-2021 13:22-0500 Body weight 90.45 kg Jean A Naderer Work Phone: [facility] DO Work Phone: 04-30-2021 13:22-0500 Diastolic blood pressure 90 mm[Hg] Jean A Naderer Work Phone: [facility] DO Work Phone: 04-30-2021 13:22-0500 Heart rate 69 /min Jean A Naderer Work Phone: [facility] [place] 250 DO Work Phone: 04-30-2021 13:22-0500 Systolic blood pressure 134 mm[Hg] Jean Saeed Naderer Work Phone: [facility] 250 DO Work Phone: 02-20-2021 14:06-0500 Body height 175.26 cm Jean Saeed Naderer Work Phone: [facility] DO Work Phone: 02-20-2021 14:06-0500 Body mass index (BMI) [Ratio] 29.98 kg/m2 Jean Saeed Naderer Work Phone: [facility] DO Work Phone: 02-20-2021 14:06-0500 Body surface area Derived from formula 2.08 m2 Jean Saeed Naderer Work Phone: [facility] [place] 250 DO Work Phone: 02-20-2021 14:06-0500 Body weight 92.08 kg Jean Saeed Naderer Work Phone: [facility] 250 DO Work Phone: 02-20-2021 14:06-0500 Diastolic blood pressure 76 mm[Hg] Jean Christophe Naderer Work Phone: [facility] 250 DO Work Phone: 02-20-2021 14:06-0500 Heart rate 80 /min Jean Christophe Naderer Work Phone: [facility] 250 DO Work Phone: 02-20-2021 14:06-0500 Systolic blood pressure 110 mm[Hg] Jean Christophe Naderer Work Phone: [facility] DO Work Phone: 02-06-2021 16:10-0500 Diastolic blood pressure 84 mm[Hg] Jean Christophe Naderer Work Phone: [facility] DO Work Phone: 02-06-2021 16:10-0500 Systolic blood pressure 130 mm[Hg] Jean A Naderer Work Phone: [facility] 250 DO Work Phone: 02-06-2021 15:37-0500 Body height 175.26 cm Jean A Naderer Work Phone: [facility] DO Work Phone: 02-06-2021 15:37-0500 Body mass index (BMI) [Ratio] 30.13 kg/m2 Jean A Naderer Work Phone: [facility] 250 DO Work Phone: 02-06-2021 15:37-0500 Body surface area Derived from formula 2.08 m2 Jean A Naderer Work Phone: [facility] 250 DO Work Phone: 02-06-2021 15:37-0500 Body weight 92.53 kg Jean A Naderer Work Phone: [facility] 250 DO Work Phone: 02-06-2021 15:37-0500 Diastolic blood pressure 90 mm[Hg] Jean A Naderer Work Phone: [facility] 250 DO Work Phone: 02-06-2021 15:37-0500 Heart rate 125 /min Jean A Naderer Work Phone: [facility] 250 DO Work Phone: 02-06-2021 15:37-0500 Systolic blood pressure 128 mm[Hg] Jean Nicholson Work Phone: [facility] 250 DO Work Phone: 11-30-2020 11:30-0400 Body height 175.26 cm Danna Violeta Other [employer] Other 11-30-2020 11:30-0400 Body mass index (BMI) [Ratio] 29.68 kg/m2 Danna Violeta Other [employer] Other 11-30-2020 11:30-0400 Body weight 91.17 kg Danna Violeta Other [employer] Other 11-30-2020 11:30-0400 Diastolic blood pressure 83 mm[Hg] Danna Violeta Other [employer] Other 11-30-2020 11:30-0400 Respiratory rate 20 /min Danna Violeta Other [employer] Other 11-30-2020 11:30-0400 SaO2% (BldA) [Mass fraction] 98 % Danna Violeta Other [employer] Other 11-30-2020 11:30-0400 Systolic blood pressure 126 mm[Hg] Danna Violeta Other [employer] Other Encounters Encounter Date Encounter Type Care Provider Facility Start: 12-26-2023 ambulatory Marino Colmenares ty:CHRISTIANO Werner Start: 03-04-2023 End: 03-04-2023 ambulatory Danna Violeta Facility: Start: 03-04-2023 End: 03-04-2023 ambulatory MD Jean Nicholson Work Phone: [facility] Work Phone: Start: 03-04-2023 End: 03-04-2023 Patient encounter procedure MD Jean Nicholson Work Phone: [facility] Work Phone: Start: 02-28-2023 End: 03-01-2023 ambulatory [facility] Start: 02-28-2023 End: 02-28-2023 Office outpatient visit 15 minutes Curtis Meléndez MD Work Phone: [facility] Comment on above: Low back pain, unspe cified back pain laterality, unspecified chronicity, unspecified whether sciatica present (Primary Dx) Start: 12-23-2022 End: 12-24-2022 ambulatory Marino SPEAR Facility:[facility] Start: 12-23-2022 End: 12-23-2022 Patient encounter procedure Marino SPEAR [facility] Start: 12-09-2022 End: 12-09-2022 ambulatory [facility] Ambulatory Start: 11-19-2022 Patient encounter procedure Carmen Witt Work Phone: [facility] Work Phone: Start: 11-19-[address] Curtis Meléndez Facility:[id number] Start: 11-04-2022 End: 11-07-2022 Evaluation and management of inpatient [facility] 610 01 Start: 10-30-2022 End: 10-30-2022 ambulatory Danna Violeta Other [employer] Other Start: 10-30-2022 Office outpatient vi sit 25 minutes Danna Violeta [facility] Start: 10-22-2022 Patient encounter procedure Carmen Witt Work Phone: [facility] Work Phone: Start: 10-22-[address] Curtis Meléndez Facility:[id number] Start: 10-22-2022 Encounter for other preprocedural examination Dr. Curtis Meléndez [facility] Start: 10-21-[address] Carmen Witt Facility:[id number] Start: 10-21-2022 Encounter for preprocedural cardiovascular examination Dr. Curtis Meléndez [facility] Start: 10-21-2022 Encounter for preprocedural laboratory examination Dr. Curtis Meléndez [facility] Start: 09-19-2022 Patient encounter procedure Carmen Witt Work Phone: [facility] Work Phone: Start: 09-19-[address] Carmen Witt Facility:[id number] Start: 08-23-2022 Chart Update Carmen Witt Work Phone: [facility] [place] Work Phone: Start: 08-23-2022 Patient encounter procedure Carmen Witt Work Phone: [facility] [place] Work Phone: Start: 08-23-[address] Carmen Witt Facility:[id number] Start: 08-20-2022 End: 08-20-2022 ambulatory Danna Violeta Other [employer] [facility] [place] Other Start: 08-20-2022 Office outpatient vi sit 25 minutes Danna Violeta [facility] Start: 08-15-2022 End: 08-15-2022 Patient encounter procedure Bianka Garcia [facility] Start: 08-15-2022 End: 08-15-2022 ambulatory MD Jean Nicholson Work Phone: [facility] [place] Other Start: 07-31-2022 Chart Update Carmen Witt Work Phone: [facility] 250 DO Work Phone: Start: 07-31-[address] Cecilio Go Facility:[id number] Start: 07-02-2022 End: 07-03-[address] IRAIS LORENZANA Facility:H1 Start: 06-05-2022 AUDIT Carmen Witt Work Phone: [facility] Work Phone: Start: 06-04-2022 Patient encounter procedure Carmen Álvarez Millicent Work Phone: [facility] 250 DO Work Phone: Start: 06-04-[address] Carmen Witt Facility: Start: 05-09-2022 End: 05-10-2022 ambulatory LAUREN BAUMANN . Facility:H1 Start: 04-19-2022 Rx Renewal Jean Nicholson Work Phone: [facility] 250 DO Work Phone: Start: 02-18-2022 End: 02-19-[address] BRITANY TSANG Facility:H1 Start: 02-07-2022 End: 02-08-2022 ambulatory LAUREN BAUMANN . Facility:H1 Start: 02-05-2022 End: 02-05-2022 ambulatory Danna Mcdaniel Other [facility] [place] Other Start: 02-05-2022 Office outpatient vi sit 25 minutes Danna Mcdaniel [facility] Start: 12-20-2021 End: 12-21-[address] MARINO SPEAR . Facility:H1 Start: 12-11-2021 Office outpatient vi sit 25 minutes Jean Nicholson Work Phone: [facility] 250 DO Work Phone: Start: 12-11-[address] Jean Nicholson Facility: Start: 11-27-2021 End: 11-28-[address] LORENA ANDERSON . Facility:H1 Start: 11-27-2021 Rx Renewal Jean Nicholson Work Phone: [facility] 250 DO Work Phone: Start: 11-05-2021 End: 11-06-[address] BRITANY TSANG Facility:H1 Start: 10-17-2021 End: 10-18-[address] CARMEN WITT . Facility:H1 Start: 10-12-2021 Rx Renewal Jean Nicholson Work Phone: [facility] 250 DO Work Phone: Start: 10-09-2021 End: 10-10-2021 ambulatory KATHERINE MARTINEZ Facility:H1 Start: 08-30-2021 End: 08-31-2021 ambulatory LAUREN BAUMANN . Facility:H1 Start: 08-21-2021 End: 08-21-2021 ambulatory Danna Violeta Other [employer] Other Start: 08-21-2021 Office outpatient vi sit 25 minutes Danna Violeta [facility] Start: 08-16-2021 End: 08-16-2021 ambulatory Bianka Garcia Other [employer] Other Start: 08-16-2021 Telephone encounter Bianka Lira [facility] Start: 08-15-2021 End: 08-15-2021 ambulatory Julina Matthews Other [employer] Other Start: 08-15-2021 Office outpatient vi sit 25 minutes Julian Matthews [facility] Start: 08-02-2021 Office outpatient vi sit 25 minutes Jean Nicholson Work Phone: [facility] 250 DO Work Phone: Start: 07-20-2021 End: 07-20-2021 ambulatory Bianka Garcia Other [employer] Other Start: 07-20-2021 Telephone encounter Bianka Ruttino [facility] Start: 07-14-2021 End: 07-14-2021 ambulatory CYNDI SIBLEY Facility: Start: 04-30-2021 Office outpatient vi sit 25 minutes Jean Saeed Nadiwonar Work Phone: [facility] 250 DO Work Phone: Start: 03-26-2021 Rx Renewal Jean A Naderer Work Phone: [facility] [place] 250 DO Work Phone: Start: 02-20-2021 Patient encounter procedure Jean [facility]aderer [facility] Work Phone: Start: 11-30-2020 Office outpatient vi sit 25 minutes Danna Violeta [facility] Procedures Date Procedure Procedure Detail Performing Clinician Start: 02-28-2023 XR LUMBAR SPINE 2-3 VIEWS CURTIS MELÉNDEZ Start: 11-04-2022 Lumbar spinal fusion Keaton SPEAR Start: 12-20-2021 PSA screening LAUREN Olmstead Comment on above: Performed By: #### P SAD #### [facility] [address] [place] [address] Dr. Arielle Biswas Start: 07-14-2021 Operation for [...] 65+ Years (3 - PPSV23 or PCV20) [facility] Start: 06-17-2023 End: 06-17-2023 Patient encounter procedure 06/17/2023 10:20 AM EDT Office Visit [facility] [address] [id number] Cecilio Go MD [address] [facility] [address], [address] [address] [facility] Start: 02-28-2023 End: 02-29-2024 XR Lumbar spine 2 or 3 Views [facility] Service Area Work Phone: Comment on above: Expected: 02/28/2023 , Expires: 02/29/2024 Start: 12-10-2022 FUV, Provider: Cecilio Go, Status: Pen, Time: 11:10 AM FUV, Provider: Cecilio Go, Status: Pen, Time: 11:10 AM -[place] [address] DO Work Phone: Start: 12-09-2022 FUV, Provider: Cecilio Go, Status: Pen, Time: 3:00 PM FUV, Provider: Cecilio Go, Status: Pen, Time: 3:00 PM -[place] [facility] Work Phone: Start: 12-09-2022 Patient encounter procedure [facility] Cardiology Frankie Start: 11-19-2022 Patient encounter procedure [facility] Orth[facility] Start: 11-19-2022 POV, Provider: Curtis Meléndez, Status: Pen, Time: 1:30 PM POV, Provider: Curtis Meléndez, Status: Pen, Time: 1:30 PM [facility] [place] Work Phone: Start: 11-05-2022 End: 11-05-2023 [facility] Start: 11-04-2022 End: 11-05-2023 [facility] Comment on above: If oral and IV lucita cotics ordered, use oral first and only use IV if oral is ineffective or cannot take oral. Do NOT give oral and IV within one hour of each other unless specificaly ordered. If NO result from Se nokot. Do NOT use with Senokot. Start: 11-04-2022 [facility], Provider: Curtis Meléndez, Status: Pen, Time: 7:30 AM [facility], Provider: Curtis Meléndez, Status: Pen, Time: 7:30 [...] Curtis Meléndez, Status: Pen, Time: 1:15 PM [facility] 250 DO Work Phone: Start: 08-15-2022 US scan of aorta US aorta [facility] Start: 08-15-2022 US Thoracic and abdominal aorta Start: 08-08-2022 ambulatory Ambulatory Facility:H 1 Start: 07-31-2022 [facility], Provider: FRANKIE LOAYI ULTRASOUND 01,[id number], Status: Pen, Time: 1:30 PM [facility], Provider: FRANKIE HHVI ULTRASOUND 01,[id number], Status: Pen, Time: 1:30 PM [facility] Work Phone: Start: 06-04-2022 FUV, Provider: Cecilio Go, Status: Pen, Time: 11:30 AM FUV, Provider: Cecilio Go, Status: Pen, Time: 11:30 AM -[facility] 250 DO Work Phone: Start: 02-06-2022 FUV, Provider: Cecilio Go, Status: Pen, Time: 8:50 AM FUV, Provider: Cecilio Go, Status: Pen, Time: 8:50 AM -[facility] 250 DO Work Phone: Start: 12-11-2021 FUV, Provider: Cecilio Go, Status: Pen, Time: 11:20 AM FUV, Provider: Cecilio Go, Status: Pen, Time: 11:20 AM [facility] 250 DO Work Phone: Start: 04-30-2021 FUV, Provider: Cecilio Go, Status: Pen, Time: 1:20 PM FUV, Provider: Cecilio Go, Status: Pen, Time: 1:20 PM -[facility] 250 DO Work Phone: Start: 02-15-2021 COVID-19 Vaccine (4 - Moderna series) COVID-19 Vaccine (4 - Moderna series) [facility] Start: 10-18-2005 Zoster Vaccines (1 o f 2) Zoster Vaccines (1 of 2) [facility] Start: 10-18-1977 DTaP/Tdap/Td Vaccine s (1 - Tdap) DTaP/Tdap/Td Vaccines (1 - Tdap) [facility] Start: 10-18-1973 Diabetes mellitus screening Diabetes Screening [facility] Start: 10-18-1973 Hepatitis C screening Hepatitis C Sc lori [facility] Start: 1955 Lipid panel Lipid Panel [facility] Start: 1955 Medicare Annual Wellness Visit Medicare Annual Wellness Visit (AWV) [facility] Start: 1955 Screening for malign ant neoplasm of colon [facility] Immunizations Immunization Date Immunization Notes Care Provider Rhys estevez 11-06-2022 influenza, high dose seasonal, preservative-free Carmen Hoy Other Phone: [facility] 12-26-2021 Fluad Quadrivalent 0 .5 ML Intramuscular Prefilled Syringe Jean Harrisr Work Phone: [facility] 271 DO Work Phone: 12-26-2021 influenza, seasonal, injectable Curtis Meléndez MD Work Phone: [facility] Work Phone: 12-21-2020 Pfizer-BioNTMahindra REVA COVID-19 Vacc 30 MCG/0.3ML Intramuscular Suspension Jean Harrisr Work Phone: [facility] 12-21-2020 pneumococcal conjuga te vaccine, 13 valent Jean Nicholson Work Phone: [facility] 12-21-2020 zoster vaccine recombinant Jean Nicholson Work Phone: [facility] DO Work Phone: 12-21-2020 zoster vaccine, unspecified formulation Curtis Meléndez MD Work Phone: [facility] Work Phone: 12-10-2020 Fluad Quadrivalent 0 .5 ML Intramuscular Prefilled Syringe Jean Saeed [facility] [employer] Work Phone: [place] [address] DO Work Phone: 12-10-2020 influenza, seasonal, injectable Curtis Meléndez MD Work Phone: [facility] Work Phone: 06-21-2020 COVID-19 Vaccine Moderna - Documentation Purposes Only Danna Violeta Other [facility] [place] Other 05-09-2020 COVID-19 Vaccine Moderna - Documentation Purposes Only Danna Violeta Other [facility] Other 01-04-2020 influenza, injectabl e, quadrivalent, preservative free Jean A Naderer Work Phone: [place] [address] DO Work Phone: 01-04-2020 influenza, seasonal, injectable Curtis Meléndez MD Work Phone: [facility] Work Phone: 01-04-2020 pneumococcal polysaccharide vaccine, 23 valent Jean A Naderer Work Phone: [facility] 12-20-2019 influenza, seasonal, injectable Jean A Naderer Work Phone: [facility] 10-25-2018 influenza, injectabl e, quadrivalent, preservative free Curtis Meléndez MD Work Phone: [facility] Work Phone: 10-25-2018 influenza, seasonal, injectable Jean A Naderer Work Phone: [place] [address] DO Work Phone: 11-24-2017 influenza virus vaccine, unspecified formulation Jean A Naderer Work Phone: [place] [address] DO Work Phone: 02-25-2016 pneumococcal polysaccharide vaccine, 23 valent Jean A Naderer Work Phone: [facility] Payers Date Payer Category Payer Self-pay [id number] 2022 Unknown 2020 Unknown [id number] 2.16 .[id number] 2020 Unknown [id number] 2.16.840 .1.561782.19 1959 Unknown [id number] 1955 Unknown [id number] 2.16.84 0.1.481551.3.579.2.593 1955 Unknown [id number] 2.16.84 0.1.317722.3.579.2.593 1955 Unknown [id number] 2.16.84 0.1.514455.3.579.2.593 1955 Unknown [id number] 2.16.84 0.1.094769.3.579.2.593 1955 Unknown [id number] 2.16.84 0.1.873560.3.579.2.593 1955 Unknown [id number] 2.16.84 0.1.706431.3.579.2.593 1955 Unknown [id number] 2.16.84 0.1.900246.3.579.2.593 1955 Unknown [id number] 2.16.84 0.1.818339.3.579.2.593 1955 Unknown [id number] 2.16.84 0.1.140407.3.579.2.593 1955 Unknown [id number] 2.16.84 0.1.254324.3.579.2.593 1955 Unknown [id number] 2.16.84 0.1.533949.3.579.2.593 1955 Unknown [id number] 2.16.84 0.1.008887.3.579.2.593 1955 Unknown [id number] 2.16. 840.1.193108.3.579.2.356 1955 Unknown [id number] 2.16. 840.1.735601.3.579.2.356 1955 Unknown [id number] 2.16.8 40.1.113527.3.579.2.1244 1955 Unknown [id number] 2.16.8 40.1.908356.3.579.2.1068 1955 Unknown [id number] 2.16.8 40.1.839220.3.579.2.1068 1955 Unknown [id number] 2.16.8 40.1.156478.3.579.2.1068 1955 Unknown [id number] 2.16.8 40.1.881536.3.579.2.1068 1955 Unknown [id number] 2.16.8 40.1.610166.3.579.2.1068 1955 Unknown [id number] 2.16.8 40.1.574708.3.579.2.1068 1955 Unknown [id number] 2.16.8 40.1.345768.3.579.2.1068 1955 Unknown [id number] 2.16.8 40.1.636586.3.579.2.727 1955 Unknown [id number] 2.16.8 40.1.111174.3.579.2.727 1955 Unknown [id number] 2.16.84 0.1.340294.3.579.2.1246 1955 Unknown [id number] 2.16.84 0.1.620091.3.579.2.1246 Medicare [id number] 2.1 6.840.1.489153.19 Medicare [place] M[place] PFFS [id number] Medicare [id number] Unknown [id number] 2.16.8 40.1.705184.3.579.2.531 Unknown [id number] 2.16.8 40.1.268564.3.579.2.531 Social History Date Type Detail Facility Start: 12-09-2022 Former smoker Former smoker [facility] 250 DO Work Phone: Start: 12-09-2022 Sex Assigned At F [facility] Start: 07-14-2021 End: 07-14-2021 Tobacco smoking status NHIS Never smoked tobacco (finding) Start: 1955 Sex Assigned At Male F [facility] Tobacco smoking consumption unknown [facility] Start: 12-18-2020 Tobacco smoking status Ex-smoker (finding) [facility] Start: 12-09-2022 Tobacco use and exposure Smokeless tobacco non-user [facility] Work Phone: Start: 12-09-2022 Alcohol intake Lifetime non-d lalo (finding) [facility] Work Phone: Start: 1955 Sex Assigned At Not on file U [facility] Work Phone: Start: 02-18-2023 End: 02-28-2023 Exposure to SARS-CoV-2 (event) Not sure [facility] Functional Status Date Assessment Result Facility 12-23-2022 Functional Status N/A [facility] [place] Functional observable [facility] Mental Status Date Assessment Result Facility 11-06-2022 Cognitive functions [id number] [facility] Clinical Notes 11-30-2020 to 02-28-2023 Curtis Meléndez [...] portion of this split dictation. In a zreh-cc-[id number] encounter, I performed a history and physical [...] the lumbar spine. documented in this encounter [facility] Work Phone: 12-23-2022 Hospital Discharge instructions Patient [...] treatment? Where to find more information [employer]: www.cancer.org [employer]: www.auanet.org Contact a health care [...] provider. Document Revised: 08/06/2021 Document Reviewed: 08/06/2021 [employer] Patient Education 2022 [employer]. Follow Up Care 12/21/2021 12:26:12 With:RAINER JIMENEZ, Marino Calabrese, URL Address: [facility] [address] , [place] [address]- [phone] When: Unknown Comments:1 yr w/ PSA [facility] 11-07-2022 Note Send Summary: Discharge Summary Providers: Provider RoleProvider Name Carmen Conner Robert ConsultingKher, Chirag PrimaryHoy, Douglas M Note Recipients: Curtis Meléndez MD - [id number] [Preferred] Carmen Witt MD - [id number] [] Cayden Flores MD Discharge: Summary: Admission Date: .04-Nov-2022 05:14:00 Discharge Date: 07-Nov-2022 Attending Physician at Discharge: Curtis Meléndez Admission Reason: Lumbar stenosis and spondylolisthesis(1) Final Discharge Diagnoses: Back pain Procedures: Date: 04-Nov-2022 13:07:00 Procedure Name: 1. 2. 3. 4. 5. Condition at Discharge: Satisfactory Disposition at Discharge: .Home Vital Signs: T PRBPMAPSpO2 [id number]% Date/Time11/07 8: 8: 8:5611/07 8: 21: 8:56 [...] please call ahead and schedule appointment Location: [address] [facility] Phone Number: [phone] Discharge Medications: Home Medication furosemide 20 mg [...] tab(s) orally once a day Potassium Chloride (Cwu-Kbjk-Sdq 10) 10 mEq oral tablet, extended release [...] discharge: Full Code Electronic Signatures: Gilda Mcmahon (MACHINE BINDING FOLDER-STRUCTURAL STEEL DETAILER) (Signed 07-Nov-2022 09:26) Authored: Send Summary, Summary Content, Immunizations, Ongoing Care, DNR Status, Note Completion Last Updated: 07-Nov-2022 09:26 by Gilda Mcmahon (MACHINE BINDING FOLDER-STRUCTURAL STEEL DETAILER) References: 1. Data Referenced From Consult-General Internal Medicine 04-Nov-2022 16:29 [facility] 11-04-2022 Note Post Operative Note: Post-Procedure Diagnosis: Lumbar stenosis and spondylolisthesis Procedure: 1. 2. 3. 4. 5. Surgeon: Ángela Resident/Fellow/Other Jewel Stripper: Alice Estimated Blood Loss (mL): 100 cc Specimen: no Findings: Lumbar stenosis and spondylolisthesis Operative Report Dictated: Dictation: not applicable - note contains Operative Report Note Recipients: Curtis Meléndez MD - [id number] [Preferred] Carmen Witt MD - [id number] [] Operative Report: Preoperative diagnosis: L2-3 and [...] Curtis Meléndez M.D. Asst.: Sonu HillThe physician optometric assistant was present through the entire case. Given the nature of the disease process and the procedure to be performed a skilled surgical manager was necessary during the case. The optometric assistant was necessary in order to hold retractors and directly assist in the operation. A certified pharmacist assistant was at the back table managing instruments [...] the large dilat (more content not included)... [facility] 11-04-2022 Reason for referral (narrative) Reason for Referral: Surgery 11.04.2022 L3-4 lateral interbody fusion, L2-3 and L3-4 laminectomy and posterior lateral fusion, L3-4 lateral instrumentation, thermal ablation of median nerve to L2-3 and L3-4 [facility] 10-30-2022 Evaluation note Encounter Date Diagnosis Assessment Notes Oct, Diastolic dysfunction (ICD-10 - I51.89) Continue all recommendati on/medicatio ns per your Shipping Receiving Clerk . Oct, ILD (interstitial lung disease) (ICD-10 - J84.9) Pulmonary Function Test as scheudled prior to next office appointment. [employer] Other 07-27-2023 History of Present illness NarrativeGarelena [...] has no bowel or bladder complaints.-[facility] Work Phone: 1(403) 497-845206-27-2023 Evaluation note* Encounter Date Diagnosis Assessment Notes Treatment Notes Treatment Clinical Notes Jul, Diastolic dysfunction (ICD-10 - I51.89) Jul, ILD (interstitial lung disease) (ICD-10 - J84.9) I reviewed results and images of your Chest CT completed at [facility] 10/2021 and 01/2022. There is evidence of very mild fibrosis (scarring). Continue with physcial activity as you are. [employer] Other 06-22-2023 Evaluation note* Encounter Date Diagnosis [...] agrees with plan, and denies any questions. [employer] Other 03-16-2023 NoteCONSULTATION CONSULTATION DATE: 05/09/2022 HISTORY: [...] is currently under the care of a dietary aid. Most recent physician appointment does show that his lungs are slowly improving. He does have a Cardiology appointment on 06/13/2022, and at that time, he will discuss with the hash slinger regarding possible use of sedation and holding [...] otherwise indicated. Patient agrees with this care.[facility] [id number] NoteCONSULTATION CONSULTATION DATE: 02/07/2022 HISTORY OF PRESENT [...] still being followed up with Pulmonology in [facility] and, most recently, they feel he [...] up in three months, unless otherwise indicated.[facility] [id number] Evaluation note* Encounter Date Diagnosis Assessment Notes Treatment Notes Treatment Clinical Notes Jan, Diastolic dysfunction (ICD-10 - I51.89) Jan, ILD (interstitial lung disease) (ICD-10 - J84.9) I will look at Chest CT from [place] and let you know if any further testing is needed. Jan, Dyspnea (ICD-10 - R06.00) [employer] Other 10-04-2022 NoteCONSULTATION CONSULTATION DATE: 11/27/2021 CHIEF [...] is under the care of Dr. Go, hash slinger, who has suggested that the patient not hold the Eliquis for any treatment right now and, as such, we will maintain a conservative approach. IMPRESSION: As such, the patient's current working diagnosis is chronic low back pain, new diagnosis of cystic fibrosis. A recent CT of the lung was performed and the patient is under the care of [facility]. The patient is also under anticoagulation therapy. PLAN: We will refill the patient's Percocet 5/325 b.i.d. The patient will be returning in clinic as needed. 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 The patient was worked up in the emergency department and it was found that he had multiple PEs in his lungs and in his right lower leg. The patient was transferred to [facility] where the large PE was surgically removed. [...] be followed up in three months' time. [facility] Signed and Approved by: LAUREN BAUMANN . 09/06/2021 09:46:00[facility]06-28-2022 Evaluation note* Encounter Date Diagnosis Assessment Notes [...] the plan all his questions were addressed. [employer] Other 10-07-2021 Evaluation note* Encounter Date Diagnosis [...] Nov, Other Try Mylanta for acid reflux. [employer] Other Evaluation + Plan note Future Appointments Appointment Date:12/26/2023 11:00:00 AM Scheduled Provider:Marino SPEAR MD Location:[facility] Appointment Type:URO Office Visit Diagnostic Tests Pending * PSA Total 12/23/22 [facility] evaluation noteNo InformationNort Holidu Other Evaluation noteNo assessment information available [facility] Work Phone: Evaluation note* Constitutional: Well [...] senses, motor, response and reflexes, normal strength [facility]* Diagnosis Low back pain, unspecified back pain laterality, unspecified chronicity, unspecified whether sciatica present- Primary documented in this encounter [facility] Work Phone: History general Narrative - Reported* Type Description Date Medical History COPD Medical History asthma Medical History sleep apnea (negative PSG) Medical History aaa Medical History pe Surgical History spine 2001 Surgical History neck 2004 Surgical History prostate biopsy 2017 Surgical History dental extraction Hospitalization History as above Hospitalization History pe 2021 [employer] Other Hisjmuj general Narrative - Reported* Type Description Date Medical History NOEL Medical History COPD Medical History asthma Medical History sleep apnea Surgical History spine 2001 Surgical History neck 2004 Surgical History prostate biopsy 2017 Hospitalization History as above [employer] Other Hisheqn general Narrative - Reported* Type Description Date Medical History COPD Medical History asthma Medical History sleep apnea (negative PSG) Surgical History spine 2001 Surgical History neck 2004 Surgical History prostate biopsy 2017 Hospitalization History as above [employer] Other History general Narrative - Reported* Type Description Date Medical History COPD Medical History asthma Medical History sleep apnea (negative PSG) Medical History aaa Medical History pulmonary embolism Surgical History spine 2001 Surgical History neck 2004 Surgical History prostate biopsy 2017 Surgical History dental extraction Hospitalization History as above Hospitalization History pulmonary embolism [facility] 06/2021 [employer] Other Hisbyak general Narrative - Reported* Type Description Date Medical History COPD Medical History asthma Medical History sleep apnea (negative PSG) Medical History aaa Medical History pulmonary embolism Medical History interstitial lung disease Medical History diastolic dysfunction Surgical History spine 2001 Surgical History neck 2004 Surgical History prostate biopsy 2017 Surgical History dental extraction Hospitalization History as above Hospitalization History pulmonary embolism [facility] 06/2021 [employer] Other History of Present illness NarrativeErik is [...] to the pain management center down in [place] Work Phone: Hospital course Narrative No data available for this section [facility] Hospital Discharge instructions* Activity:activity as [...] ahead and schedule appointmentLocation: [address] [place]Phone Number: [phone] [facility] No data available for this section [facility] Chief Complaint Pt came in today [...] office for follow-up for recent admission to [facility] with bilateral pulmonary embolism leading to RV [...] pulmonary embolism. Recently follow-up CT scan at [facility] revealed resolution of the pulmonary emboli. Some other pathology was noted with densities requiring follow-up imaging in 3 to 6 months which has been arranged through his PCP. He is cu rrently anticoagulated with Eliquis. The patient is contemplating further dental work in December which he should be able to hold anticoagulation prior to. Recent nuclear stress test at [facility] was reviewed and shared with the patient and was normal. He is also known to have normal ejection fraction. He currently has no complaint to report physical examination was only remarkable for 8 pounds weight gain from last visit. He is now in the obesity range recent medical record from [facility] were reviewed with the patient and reviewed [...] thoracic and lumbar xrays and MRI in [place]. brought a disc.new patient. low back pain with RT sided pain to nee x 2 months. h/o sx in 1998. thoracic and lumbar xrays and MRI in [place]. brought a disc.F/U Lumbar after therapy, says [...] 2-3 views Curtis Meléndez MD [address] [facility], [address] [place] [id number] Referral ID Status Reason Start Date Expiration Date Visits Requested Visits Authorized [id number] Authorized Perform Procedure 02/28/2023 02/28/2024 1 1 [...] DATE CREATED AUTHOR AUTHOR'S ORGANIZ ATION 10/25/2022 [facility] DATE CREATED AUTHOR AUTHOR'S ORGANIZ ATION 11/29/2022 [employer] DATE CREATED AUTHOR AUTHOR'S ORGANIZ ATION 12/11/2022 [facility] DATE CREATED AUTHOR AUTHOR'S ORGANIZ ATION 12/14/2022 [facility] DATE CREATED AUTHOR AUTHOR'S ORGANIZ ATION 12/24/2022 K[facility] Del Angel [facility] DATE CREATED AUTHOR AUTHOR'S ORGANIZ ATION 03/04/2023 [facility] DATE CREATED AUTHOR AUTHOR'S ORGANIZ ATION 03/10/2023 [facility] Care Teams (unrecognized sec tion and content) Team Status: Active Member Role Status Dates Jean Nicholson MD Primary Care Provider Active Team Status: Inactive Member Role Status Dates Jean Nicholson MD Primary Care Provider Active Bianka Garcia NP-C Attending Provider Active Pre [employer] Proofer Relationship Specialty Start Date End Date Carmen Witt MD [address] [phone] PCP - General 06/04/22 Team Status: Inactive Member Role Status Dates Jean Nicholson MD Primary Care Provider Active Danna Mcdaniel APRN [facility] Attending Provider Active Goals (unrecognized section and [...] BE BASED ON THE PRIMARY CLINICAL RECORDS. [facility]. provides no warranty or guarantee of the accuracy or completeness of information in this document.
[2023-03-24 08:20] VITALS: BP 143/75; PULSE 77; RESP 18; TEMP 36.6; O2SAT 98
[2023-03-24 08:55] VITALS: RESP 18
[2023-03-24] MEDS: IOHEXOL 240 MG/ML - 10 ML VIAL INJ (08:59)
[2023-03-24] MEDS: BUPIVACAINE HCL 0.25% PF 25 MG/10 ML VIAL INJ (08:59)
[2023-03-24] MEDS: TRIAMCINOLONE ACETONIDE 40 MG/ML VIAL INJ (08:59)
[2023-03-24] MEDS: LIDOCAINE HCL 2% PF 100 MG/5 ML VIAL INJ (08:59)
[2023-03-24 09:00] VITALS: BP 137/83; PULSE 72; O2SAT 97
[2023-03-24 09:01] VITALS: BP 123/73; PULSE 73; O2SAT 97
--- NOTE | 2023-03-24 09:02 | W.PM.PROCNOT ---
Date of procedure: 03/24/23 Pre-op diagnosis: Sacroiliitis, right Post-op diagnosis: same as pre-op Procedure: Procedure: Right block of the nerve innervating the sacroiliac joint Medications: Bupivacaine 0.25% 3cc, kenalog 40mg After informed consent was obtained, the patient was brought to the medical procedure unit and placed in the prone position, when a timeout was completed verifying correct patient, procedure, site, positioning, implant, and/or special equipment.? The skin overlying the area was prepped and draped in standard sterile fashion using alcohol.? A 25-gauge needle was inserted towards the right nerve innervating the sacroiliac joint under direct fluoroscopic imaging.? Needle tip was advanced until the nerve was encountered.? We instilled a total of 3 mL of solution.? Postoperatively needles were removed.? The patient tolerated the procedure well without complication.? The patient reported reduction in pain symptoms postoperatively. Anesthesia: Local Surgeon: Maribell Leigh Pathology: none sent Condition: stable Disposition: no change
== END 2023-03-24 09:08 | disposition home or self-care (01) ==
PROVIDERS: PCP Family Medicine; Visit Provider Anesthesiology
DX: M46.1 Sacroiliitis, not elsewhere classified (principal)
CPT/HCPCS: 64451; J0665; J3301; Q9966

== ENCOUNTER 2023-04-03 10:14 | Outpatient (OUT) | payer OTHER, SELFPAY ==
--- NOTE | 2023-04-03 10:48 | P.CN_ITS ---
Consult Note: HPI Data of Consult Patient: known to practice within the last 3 years Requesting Physician: Mercedes Massey NP Primary Care Provider: Radames Ricks MD Consult Narrative Reason for consult: F/u Narrative: Gustavo Morales a pleasant 67 year old male presents for evaluation and management of chronic back pain and right hip pain. Today pain 4-5 sharp in mid low back and right hip. Pain is increased with walking, twisting, bending, and activity. recently underwent right SIJ injection with 90% improvement for 2 days, continues to have moderate to severe low back and right hip pain. Patient would like to discuss additional options at this time cc:: CC: Mercedes Massey NP Review of Systems ROS Status of ROS 10 or more systems reviewed and unremark able except as noted in h istory and below Musculoskeletal Reports: back pain and joint pain PFSH PFSH Medical History Fixation hardware in spine ?Z96.7 - Presence of other bone and tendon implants (ICD-10) Fusion of lumbar spine ?M43.26 - Fusion of spine, lumbar region (ICD-10) Generalized weakness ?R53.1 - Weakness (ICD-10) Pulmonary embolism ?I26.99 - Other pulmonary embolism without acute cor pulmonale (ICD-10) Meds Home Medications and Allergies Home Medications Medication Instructions Recorded Confirmed Type acetaminophen 325 mg tablet 325 mg PO Q6H PRN pain 09/06/22 03/24/23 History (Tylenol) albuterol sulfate 90 mcg/actuation 2 puff inhalation Q4H PRN 09/06/22 03/24/23 History aerosol inhaler shortness of breath or wheezing apixaban 5 mg tablet (Eliquis) 5 mg PO Q12H 09/06/22 03/24/23 History atorvastatin 40 mg tablet 40 mg PO QDAY 09/06/22 03/24/23 History baclofen 10 mg tablet 10 mg PO QDAY 09/06/22 03/24/23 History eye promise QDAY 09/06/22 History furosemide 20 mg tablet 20 mg PO QDAY 09/06/22 03/24/23 History lisinopril 20 mg tablet 20 mg PO QDAY 09/06/22 03/24/23 History metoprolol tartrate 25 mg tablet 25 mg PO Q12H 09/06/22 03/24/23 History nortriptyline 25 mg capsule 25 mg PO BEDTIME 09/06/22 03/24/23 History omeprazole 40 mg capsule,delayed 40 mg PO QDAY 09/06/22 03/24/23 History release oxybutynin chloride 10 mg 10 mg PO QDAY 09/06/22 03/24/23 History tablet,extended release 24 hr oxycodone-acetaminophen 5 mg-325 1 tab PO BID PRN pain 09/06/22 03/24/23 History mg tablet potassium chloride 10 mEq 10 meq PO QDAY 09/06/22 03/24/23 History tablet,extended release celecoxib 200 mg capsule (Celebrex) 200 mg PO BID 11/08/22 03/24/23 History docusate sodium 100 mg capsule 100 mg PO BID 11/08/22 03/24/23 History oxycodone-acetaminophen 5 mg-325 1 tab PO BID PRN pain #60 tabs 01/13/23 03/24/23 Rx mg tablet (Percocet) Allergies Allergy/AdvReac Type Severity Reaction Status Date / Time No Known Drug Allergies Allergy Verified 03/24/23 08:14 Exam Constitutional Documenting provider has reviewed patient's vital signs: yes Common normals: no apparent distress, oriented x3, healthy appearing, alert and well nourished General appearance: cooperative HENMT Common normals: normocephalic, hearing grossly normal bilaterally and moist oral mucous membranes Head and scalp: normocephalic Eye Common normals: PERRL Pupil: PERRL Neck & C-Spine Common normals: full ROM General: normal visual inspection Chest Common normals: inspection of chest normal Respiratory Common normals: normal respiratory effort, no retractions and no use of accessory muscles Back & Pelvis Lumbar spine/lower back: ROM limited and straight leg raise negative bilaterally Sacroiliac joints: SI joint(s) abnormal Other: surgical scar healed, no redness tenderness or warmth mild back pain no radiculopathy positive facet loading, pain over l4-5 l5-s1 facets pain over right PSIS, pain increased with CAS/FAIDIR thigh thrust and gaenslens maneuvers negative internal and external log roll of right hip, moderate to severe tenderness over right GTB Extremity Common normals: normal to inspection and full ROM Neuro Common normals: oriented x3, CN's II-XII intact bilaterally, moves all extremities, no focal motor deficits, no sensory deficits noted and deep tendon reflexes 2+ bilaterally Sensorium/orientation: alert Motor exam: strength 5/5 throughout and no movement abnormalities noted Psych Common normals: mental status grossly normal, thought process normal, cooperative, affect normal, speech normal and activity/motor behavior normal Speech: normal speech Thought process: normal thought process Assessment and Plan Assessment and Plan (1) Lumbar spondylosis: Assessment and Plan: The patient has had over 3 months of moderate to severe low back pain with functional impairment and inadequate response to conservative care including NSAIDS (unless there are contraindication such as concurrent blood thinners), multiple oral or topical pain medications, and home exercise program/physical therapy.? Patient has completed >6 weeks of guided home exercise program and/or formal physical therapy program without relief of their symptoms.? I have reviewed the imaging of the lumbar spine and no red flags were identified.? The imaging reveals radiographic findings consistent with lumbar spondylosis We discussed the risks and benefits of the procedure with the patient, and we are NOT planning on using sedation as outlined in the guidelines from Medicare unless there is a documented reason that sedation would be strongly recommended.?? ?The procedure will be completed with fluoroscopic guidance.? (2) Greater trochanteric bursitis: (3) Muscle spasm: (4) 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 The patient does not report intolerable side effects. The patient is NOT opioid naive and non-pharmacologic and non-opioid treatment has failed to significantly relieve the patient's pain and improve functionality. The patient has a diagnosis that is related to a somatic or visceral pain etiology. ? ?? I reviewed with the patient the potential risks and side effects with the use of? opioid medications including but not limited to respiratory depression,? sedation, and even . I verified the patient has access to naloxone should? these effects occur. I advised the patient to avoid the use of any other? sedation substances including alcohol, THC, and benzodiazepines while? taking opioid medications due to the risk of compounding side effects and? detrimental outcomes. I reviewed the [employer], pain treatment agreement, urine? drug screen, and opioid start talking forms. The patient was advised to let? their family know they had Naloxone in case they would need to administer? the medication.? ?? A drug screen was completed within the last year, and no aberrancies were noted regarding their use of controlled substances. The patient understands they are subject to the terms and conditions of the pain contract that they have signed. ? ?? I have checked an [place]AR[place] report on this patient today and there are no aberrancies noted in the prescribing history.? (5) Bilateral sacroiliitis: (6) Failed back syndrome: Plan right GTB injection bilateral L4-5 L5-S1 facet medial branch block x2 working towards thermal RFA continue PT/HEP as tolerated continue current medications, finding benefit without side effects f/u after injection
== END 2023-04-03 10:15 | disposition home or self-care (01) ==
LOC: PM 10:14
PROVIDERS: PCP Family Medicine; Visit Provider Nurse Practitioner
DX: M47.816 Spondylosis without myelopathy or radiculopathy, lumbar region (principal); M70.60 Trochanteric bursitis, unspecified hip; M62.838 Other muscle spasm; Z79.891 Long term (current) use of opiate analgesic; M46.1 Sacroiliitis, not elsewhere classified
CPT/HCPCS: G0463

== ENCOUNTER 2023-04-07 11:55 | Outpatient (OUT) | payer OTHER, SELFPAY ==
--- OUTSIDE RECORDS SUMMARY | 2023-04-07 11:58 | XMS_ITS | CCD ---
Author Name Unknown Address [address] [place] [address] Organization [facility] Care Team Providers Care Telegraphic Typewriter Repairer Name Role Phone Jean Nicholson Unavailable Unavailable Unavailable Julian Matthews Unavailable Bianka Garcia Unavailable Danna Mcdaniel Unavailable Carmen [...] KATHERINE Primary Care Unavailable ANDERSON ., DR LROENA Dunham Attending Unavailable ANDERSON ., DR LORENA [...] Go Unavailable CECILIO GO Attending Unavailable CARMEN WTIT Primary Care Unavailable Millicent, Dr. Carmen Fabian [...] Unavailable Carmen Witt MD Primary Care Provider CURTIS MELÉNDEZ Attending Unavailable CARMEN WITT Primary Care Unavailable CURTIS MELÉNDEZ Referring Unavailable CARMEN WITT Primary Care Unavailable MD Jean Nicholson Primary Care Provider JESSICA Mcdaniel Attending Provider Danna Mcdaniel Attending Unavailable Jean Nicholson Primary Care Unavailable Danna Mcdaniel Admitting Unavailable Bianka Garcia Admitting Unavailable Bianka Garcia Attending Unavailable Jean Nicholson [facility] Unavailable Allergies Allergy Classification Reported Allergen(s) Allergy Type Date of Onset Reaction(s) Facility (20 sources) Nitroglycerin; Translations: [nitroglycerin] Drug Allergy 2 Other [facility] (9 sources) Nitroglycerin Drug Allergy Unknown [employer] Other (1 source) Aminolevulinic Acid Drug Allergy [facility] (1 source) Nitroglycerin Drug Allergy 2 [facility] Repository Medications Current Medications Medication Drug Class(es) [...] than prescribed may cause serious breathing problems. 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 ACCESSION NUMBER(S): [id number] ORDERING CLINICIAN: CURTIS MELÉNDEZ FINDINGS: AP lateral [...] Curtis Meléndez 02/28/2023 3:09 PM Dictation workstation: [id number] [facility] Lab Reportson 12-24-2022 Lab Reports [id number] [facility] Patient Educationon 12-24-19 23 Patient [...] Where to find more information ? The [place] [employer]: www.cancer.org ? [place] [employer]: www.auanet.org Contact a health care [...] adds flu (more content not included)... [facility] Physician Orderon 12-23-2022 Physician Order [id number] [facility] Urology Office/Clinic Noteon 12-23-2022 Urology Office/Clinic [...] Urology [address], [place] [address] [phone] Additional Instructions: 1 yr w/ PSA Patient [...] Dipstick: Negative (more content not included)... [facility] Comment on above: Result Comment: Elec tronically Signed By: Marino SPEAR MD\.br\Date and Time Signed: 12/23/22 12:01 EDT\.br\Electronically Co-Signed By: Skye Miller\.br\Date and Time Co-Signed: 12/23/22 11:59 EDT Post Op (Orthopaedic Surgery )on 11-19-2022 Post Op (Orthopaedic Surgery) Orders Back pain Xray BN Spine, Lumbosacral; 2 or 3 Views; Status:Complete; Done: [id number] 02:21PM Radiologist to Determine Optimal Study : [...] Xray BN Spine, Lumbosacral; 2 or 3 [id number] 02:21PMCurtis Meléndez Test NameResultFlagReference Xray Lumbar Spine AP + Lateral(Report) FINAL REPORT Interpreted by: CURTIS MELÉNDEZ JON, MD 11/19/22 16:41 Patient Name: ERIK MORALES STUDY: SPINE, LUMBOSACRAL; 2 OR 3 VIEWS; ; 11/19/2022 2:21 pm INDICATION: pain M54.9: Back pain. ACCESSION NUMBER(S): [id number] ORDERING CLINICIAN: CURTIS MELÉNDEZ FINDINGS: AP lateral x-rays of the lumbar spine show an L3-4 lateral lumbar fusion with lateral plate and cage configuration. Cage pl (more content not included)... Normal [facility] 11-19-2022 XR Lumbar spine AP and Lateral Normal [facility] [facility] Work Phone: SPINE, LUMBOSACRAL 2 OR 3 EWSon 11-19-2022 SPINE, LUMBOSACRAL 2 OR 3 VIEWS Patient Name: ERIK MORALES STUDY: SPINE, LUMBOSACRAL; 2 OR 3 VIEWS; ; 11/19/2022 2:21 pm INDICATION: pain M54.9: Back pain. ACCESSION NUMBER(S): [id number] ORDERING CLINICIAN: CURTIS MELÉNDEZ FINDINGS: AP lateral [...] Electronically signed by: CURTIS MELÉNDEZ MD Normal [facility] BASIC METABOLIC PANELon 10-25 Anion gap [Moles/Vol] 10 mmol/L Normal 10 - 20 [facility] Comment on above: Performed By: #### B MP #### [address] [id number] Calcium [Mass/Vol] 8.9 mg/dL Normal 8.6 - 10.3 [facility] Comment on above: Performed By: #### B MP #### [address] [id number] Chloride [Moles/Vol] 101 mmol/L Normal 98 - 107 [facility] Comment on above: Performed By: #### B MP #### [address] [id number] Creatinine [Mass/Vol] 1.15 mg/dL Normal 0.50 - 1.30 [facility] Comment on above: Performed By: #### B MP #### [address] [id number] GFR/1.73 sq M.predicted among non-blacks MDRD (S/P/Bld) [Vol rate/Area] 70 mL/min/{1.73_m2} Normal >90 [facility] Comment on above: Result Comment: CALC ULATIONS OF ESTIMATED GFR ARE PERFORMED USING THE 2020 CKD-EPI STUDY REFIT EQUATION WITHOUT THE RACE VARIABLE FOR THE IDMS-TRACEABLE CREATININE METHODS. https://jasn.asnjournals.org/content/early//ASN.3112121 988 Performed By: #### B MP #### [address] [id number] Glucose [Mass/Vol] 106 mg/dL High 74 - 99 [facility] Comment on above: Performed By: #### B MP #### [address] [id number] HCO3 (Bld) [Moles/Vol] 29 mmol/L Normal 21 - 32 [facility] Comment on above: Performed By: #### B MP #### [address] [id number] Potassium [Moles/Vol] 4.5 mmol/L Normal 3.5 - 5.3 [facility] Comment on above: Performed By: #### B MP #### [address] [id number] Sodium [Moles/Vol] 135 mmol/L Low 136 - 145 [facility] Comment on above: Performed By: #### B MP #### [address] [id number] Urea nitrogen [Mass/Vol] 13 mg/dL Normal 6 - 23 [facility] Comment on above: Performed By: #### B MP #### [facility] [address] [place], [place] [id number] Daily Progress Note-General Internal Medicineon 11-07-2022 Daily [...] intact. Objective Data: Objective Information: T PRBPMAPSpO2 [id number]/[id number]% Date/Time11/07 8: 8: 8: 8: 21:0811/07 8:56 [...] laboratory results: Basic Metabolic Panel Trending View [id number] 10:23:00 -Oct-2022 05:48:00 Glucose, Rjwqc577 H 95 NA135 L 138 K4.5 4.1 [...] discussed extensively with patient, RN and Ortho CORRECTIONAL SUPPLY SUPERVISOR. Patient verbalized understanding through teach back method. All questions and concerns addressed upon examination. Of note, this documentation is completed using the WorkWith.meation system (voice recognition software). There may be spelling and/or grammatical errors that were not corrected prior to final submission. Plan of Care Reviewed With: Plan of Care Reviewed With: patient Electronic Signatures: Heidy Escobar (INSTRUCTIONAL TECHNOLOGY INSTRUCTOR-CASE MANAGEMENT ASSOCIATE) (Signed 07-Nov-2022 14:59) Authored: Service, Subjective Data, Objective Data, Assessment and Plan, Note Completion Last Updated: 07-Nov-2022 14:59 by Heidy Escobar (INSTRUCTIONAL TECHNOLOGY INSTRUCTOR-CASE MANAGEMENT ASSOCIATE) Normal [facility] Daily Progress Note-Orthopae dicson 11-07-2022 Daily Progress Note-Orthopaedics Service: Orthopaedics Subjective Data: ERIK MORALES is a 67 year old Male who is Hospital Day # 4 and POD #3 for 1. ;2. ;3. ;4. ;5. Patient seen and examined this morning. No acute events overnight. Objective Data: Objective Information: T PRBPMAPSpO2 Value36.20719980/7837818% Date/Time11/06 21: 21: 21: 21: 21: 21:08 [...] to home today Electronic Signatures: Gilda Mcmahon (INSTRUCTIONAL TECHNOLOGY INSTRUCTOR-CASE MANAGEMENT ASSOCIATE) (Signed 07-Nov-2022 08:00) Authored: Service, Subjective Data, Objective Data, Assessment and Plan, Note Completion Abner Maldonado) (Signed 07-Nov-2022 11:31) Co-Signer: Service, Subjective Data, Objective Data, Assessment and Plan, Note Completion Last Updated: 07-Nov-2022 11:31 by Abner Maldonado) Normal [facility] Laboratory - Chemistry and C hemistry - challengeon 11-07-2022 Anion gap [Moles/Vol] 10 mmol/L 10 - 20 [facility] Work Phone: Calcium [Mass/Vol] 8.9 mg/dL 8.6 - 10.3 [facility] [place] Work Phone: Chloride [Moles/Vol] 101 mmol/L 98 - 107 [facility] [place] Work Phone: CO2 [Moles/Vol] 29 mmol/L 21 - 32 [facility] [place] Work Phone: Creatinine [Mass/Vol] 1.15 mg/dL See Below [facility] Work Phone: Comment on above: Reference Range: 0.5 0 - 1.30 Glucose [Mass/Vol] 106 mg/dL above high threshold 74 - 99 [facility] [place] Work Phone: Potassium [Moles/Vol] 4.5 mmol/L 3.5 - 5.3 [facility] Work Phone: Sodium [Moles/Vol] 135 mmol/L below low threshold 136 - 145 [facility] Work Phone: Urea nitrogen [Mass/Vol] 13 mg/dL 6 - 23 [facility] Work Phone: No Panel Informationon 11-07 70 {mL/min/1.73m2} >90 [facility] Work Phone: Comment on above: CALCULATIONS OF MEGAN MATED GFR ARE PERFORMED USING THE 2020 CKD-EPI STUDY REFIT EQUATION WITHOUT THE RACE VARIABLE FOR THE IDMS-TRACEABLE CREATININE METHODS.https://jasn.asnjournals.org/content//ASN .7071031586 Order Reconciliationon 11-07 Order Reconciliation Page 1 Discharge Reconciliation Document Reconciliation Type: Discharge requested on behalf of Gilda Mcmahon (Advanced Practice Nurse-Admit) done by Gilda Mcmahon (INSTRUCTIONAL TECHNOLOGY INSTRUCTOR-[facility]) Discharge - Reconciliation: 07-Nov-2022 09:21 by: Gilda Mcmahon (INSTRUCTIONAL TECHNOLOGY INSTRUCTOR-[facility]) Home Medications EnteredHOME MEDICATIONS AT DISCHARGE [...] oral tablet is not required Potassium Chloride (Tpq-Bpmi-Aij 10) 10 mEq oral tablet, extended release 1 tab(s) orally once a day 21-Oct-2022 13:59 Potassium Chloride (Brv-Fxed-Dba 10) 10 mEq oral tablet, extended release 1 tab(s) orally once a day 21-Oct-2022 13:59 Potassium Chloride (Wnw-Zicm-Ibs 10) 10 mEq oral tablet, extended release is continued as Potassium Chloride (Rvj-Ioji-Oea 10) 10 mEq oral tablet, extended release [...] Lactated Ringers (more content not included)... Normal [facility] Rehab Note-occupational therapist aide rohit 11-07-2022 Rehab Note-occupational therapy Rehab: Info: Mode of Treatmentoccupational therapy Time IN07:31 Time OUT08:00 Total Treatment [id number] Patient in ... at end of sessionchair; [...] Mobility/Tone: Bed Mobility Assessment/Interventionssu pine to sit Xcmhgc-bi-Vct [place] (Bed Mobility)standby assist; verbal cues; nonverbal cues (demo/gesture) Comment, Bed MobilityEducated pt on log roll technique to maintain spinal precautions. Simulated home s/u and transferred towards right side. Transfer Assessment/Interventionssi t to stand transfer; stand to sit transfer; bed to chair transfer; toilet transfer; shower transfer Comment, TransfersMin verbal cues for hand placement with sit <>stand transfers. Bed-Chair [place] (Transfers)standby assist Bed-Chair Assistive Device (Transfers)walker, front-wheeled Sit-Stand [place] (Transfers)standby assist; Multiple sit <>stand transfers performed from various surfaces and surface heights. Pt benefits from elevated surfaces however is able to complete transfers from standard surface heights. Sit-Stand Assistive Device (Transfers)walker, front-wheeled Stand-Sit [place] (Transfers)standby assist Stand-Sit Assistive Device (Transfers)walker, front-wheeled Shower [place] (Transfers)Pt reports having shower chair at home which he has used prior to admission. Verbal education provided on safe transfer techniques. Pt also educated to have someone present with transfer for fall prevention. Toilet [place] (Transfers)standby assist Toilet Assistive Device (Transfer)grab bars/safety [...] Assessment/Interventionlow er body dressing; toileting; grooming; bathing [place] Level (Bathing)Pt educated on using a sound controller to complete LB bathing vs purchasing a LH sponge. Verbal and visual education provided on technique from seated position on shower chair. Pt verbalized understanding. [place] Level (Lower Body Dressing)don; pants/bottoms; shoes/slippers Assistive Devices (Lower Body Dressing)sound controller Comment (Lower Body Dressing)Reviewed education on use of sound controller. Wilfredo pants while seated EOB with fair (+) balance. Pt donned LB clothing with SBA. Educated pt on how to use sound controller to wilfredo slip on shoes. Pt reports brother can also assist with donning shoes. Pt educated to not walk in tedhose only, always wear shoes or non-slip socks [place] Level (Grooming)standby assist Position (Grooming)standing [place] Level (Toileting)standby assist Position (Toileting)sitting Skilled BADL Treatment/Interventionadap tive equipment training; BADL process/adaptation training; compensatory training; energy conservation Motor: Pmb-za-Qzjep (Balance)F+ Standing, Static (Balance)F+ Standing, Dynamic (Balance)F+ [...] Score20 Short Term Goals: Functional Transfer: Established [id number] Functional Transfer: Goal Detailspt will transfer to bed ,chair, toilet with modified indep Functional Transfer: Time Frame for Go (more content not included)... Normal [facility] Rehab Note-physical therapyo n 11-07-2022 Rehab Note-physical therapy Rehab: Info: Disciplinephysical therapist Mode of Treatmentphysical therapy Time IN08:16 Time OUT08:48 Total Treatment Bmrqzli25 Patient in ... at end of sessionchair; [...] brace in place. PT placed hands over statuary painter on walker to cue pt of his [...] Score18 Short Term Goals: Bed Mobility: Date Tsfgbzwwcvi65-Wvd-0857 Bed Mobility: [place] Level Goalmodified independent; supine <> sidelying <> sitting Transfer: Established Eivq45-Yyd-0546 Transfer: Transfer Type Dkscavh-kq-gmgdw/chair-to- bed; qmg-vc-ylkot/prslc-ov-hdb Transfer: [place] Level Goalmodified independent Transfer: Assistive Device Goalrolling walker Gait: Established Lvsp42-Keh-4275 Gait: [place] Level Goalmodified independent Gait: Assistive Device Goalrolling walker Gait: Distance Fhhd052' Education: Learnerpatient Barriers to Learningno barrier Methodverbal [...] home Outcome Summary: Predicted Duration of Therapy Hktziwviqgpj04 days Progress: Physical Therapyprogress toward functional goals as expected Therapy Frequency (PT Eval)2 times/day Predicted Duration of Therapy Xhpsydreiudu02 days DC Recommendations: Discharge Recommendation (PT Eval)Pt would benefit from [facility] Electronic Signatures: Daniela Scott (PT) (Signed 07-Nov-2022 15:34) Co-Signer: Info, Mobility/Tone, Outcomes Tools, Short Term Goals, Education, Outcome Summary, DC Recommendations Fior Velez (SPT) (Signed 07-Nov-2022 13:43) Authored: Info, Mobility/Tone, Outcomes Tools, Short Term Goals, Education, Outcome Summary, DC Recommendations Last Updated: 07-Nov-2022 15:34 by Daniela Scott (PT) Normal [facility] BASIC METABOLIC PANELon - Anion gap [Moles/Vol] 9 mmol/L Low 10 - 20 [facility] Comment on above: Performed By: #### B MP #### [address] [id number] Calcium [Mass/Vol] 8.6 mg/dL Normal 8.6 - 10.3 [facility] Comment on above: Performed By: #### B MP #### [address] [id number] Chloride [Moles/Vol] 105 mmol/L Normal 98 - 107 [facility] Comment on above: Performed By: #### B MP #### [address] [id number] Creatinine [Mass/Vol] 1.37 mg/dL High 0.50 - 1.30 [facility] Comment on above: Performed By: #### B MP #### [address] [id number] GFR/1.73 sq M.predicted among non-blacks MDRD (S/P/Bld) [Vol rate/Area] 57 mL/min/{1.73_m2} Abnormal >90 [facility] Comment on above: Result Comment: CALC ULATIONS OF ESTIMATED GFR ARE PERFORMED USING THE 2020 CKD-EPI STUDY REFIT EQUATION WITHOUT THE RACE VARIABLE FOR THE IDMS-TRACEABLE CREATININE METHODS. https://jasn.asnjournals.org/content/early/ASN.0031306 988 Performed By: #### B MP #### [address] [id number] Glucose [Mass/Vol] 95 mg/dL Normal 74 - 99 [facility] Comment on above: Performed By: #### B MP #### [address] [id number] HCO3 (Bld) [Moles/Vol] 28 mmol/L Normal 21 - 32 [facility] Comment on above: Performed By: #### B MP #### [address] [id number] Potassium [Moles/Vol] 4.1 mmol/L Normal 3.5 - 5.3 [facility] Comment on above: Performed By: #### B MP #### [facility] [address] [place], [place] [id number] Sodium [Moles/Vol] 138 mmol/L Normal 136 - 145 [facility] Comment on above: Performed By: #### B MP #### [facility] [address] [place], [place] [id number] Urea nitrogen [Mass/Vol] 14 mg/dL Normal 6 - 23 [facility] Comment on above: Performed By: #### B MP #### [address] [id number] Daily Progress Note-General Internal Medicineon 11-06-2022 Daily [...] intact. Objective Data: Objective Information: T PRBPMAPSpO2 Value37.74705633/409833% Date/Time11/06 8: 8: 8: 8: 8: 8:18 Range(36.2C - 37.4C ) (63 - 79 ) (16 - 18 ) (104 - 132 )/ (58 - 77 ) (76 - 97 ) (94% - 96% ) Highest temp of 37.4 C was recorded at 11/05 19:08 Pain reported at 11/06 7:23: sleeping ---- Intake and Output ----- Mn/Dy/Year TimeIntakeOutgu[facility] hospitalNet Nov 06, 2022 6:00 [id number] Nov 05, 2022 10:00 [id number] Nov 05, 2022 2:00 [id number] The Intake and Output Totals for the last 24 hours are: IntakeOutputNet [id number] Physical Exam Narrative: Physical Exam: Constitutional: awake/alert/oriented [...] spirometer education and demonstration addressed Discharge planning [facility] reviewed Vital signs every 8 # HTN [...] discussed extensively with patient, RN and Ortho CORRECTIONAL SUPPLY SUPERVISOR. Patient verbalized understanding through teach back method. All questions and concerns addressed upon examination. Of note, this documentation is completed using the Dr. Scribbles Dictation system (voice recognition software). There may be spelling and/or grammatical errors that were not corrected prior to final submission. Plan of Care Reviewed With: Plan of Care Reviewed With: patient Elec (more content not included)... Normal [facility] Daily Progress Note-Orthopae frederic 11-06-2022 Daily Progress Note-Orthopaedics Service: Orthopaedics Subjective Data: ERIK MORALES is a 67 year old Male who is Hospital Day # 3 and POD #2 for 1. ;2. ;3. ;4. ;5. Overnight Events: Patient had an uneventful night. Objective Data: Objective Information: T PRBPMAPSpO2 Value37.04010153/857018% Date/Time11/06 8: 8: 8: 8: 8: 8:18 Range(36.2C - 37.4C ) (63 - 79 ) (16 - 18 ) (104 - 132 )/ (58 - 77 ) (76 - 97 ) (94% - 96% ) Highest temp of 37.4 C was recorded at 11/05 19:08 Pain reported at 11/06 7:23: sleeping ---- Intake and Output ----- Mn/Dy/Year TimeIntakeOutputNet Nov 06, 2022 6:00 [id number] Nov 05, 2022 10:00 [id number] Nov 05, 2022 2:00 [id number] The Intake and Output Totals for the last 24 hours are: IntakeOutputNet [id number] T PRBPMAPSpO2 Value37.16293653/220105% Date/Time11/06 8: 8: 8: 8: 8: 8:18 [...] bed -home today Electronic Signatures: Derrick Cunningham (INSTRUCTIONAL TECHNOLOGY INSTRUCTOR-CASE MANAGEMENT ASSOCIATE) (Signed 06-Nov-2022 09:07) Authored: Service, Subjective Data, Objective Data, Assessment and Plan, Note Completion Last Updated: 06-Nov-2022 09:07 by Derrick Cunningham (INSTRUCTIONAL TECHNOLOGY INSTRUCTOR-CASE MANAGEMENT ASSOCIATE) Normal [facility] Discharge Upjwibr5id 023 Discharge Profile2 Discharge Orders: Anticipated Discharge Date: Anticipated Discharge [id number]-4757 Anticipated Discharge Time12:00 Problem List: Admitting Dx: [...] Review of Medication Reconciliation and Orders Completedby INSTRUCTIONAL TECHNOLOGY INSTRUCTOR Reviewing ProviderFAINA Dwyer at 07-Nov-2022 09:17:40 Appointments: Follow-Up Appointment 01: Physician/Dept/ServiceDr. Meléndez Reason for Referralback Call to Schedule in2 weeks, please call ahead and schedule appointment [id number] Transportation [facility] Phone [phone] Electronic Signatures: Gilda Mcmahon (JESSICA-TRAY) (Signed 07-Nov-2022 09:17) Authored: Discharge Orders, Home Care Orders, Provider FINAL REVIEW of Orders, Appointments, Gold Form - Dance Historian Summary Last Updated: 07-Nov-2022 09:17 by Gilda Mcmahon (JESSICA-CASE MANAGEMENT ASSOCIATE) Normal [facility] Laboratory - Chemistry and C hemistry - challengeon 11-06-2022 Anion gap [Moles/Vol] 9 mmol/L below low threshold 10 - 20 -[facility] [facility] Work Phone: Calcium [Mass/Vol] 8.6 mg/dL 8.6 - 10.3 [facility] Work Phone: Chloride [Moles/Vol] 105 mmol/L 98 - 107 [facility] [place] Work Phone: CO2 [Moles/Vol] 28 mmol/L 21 - 32 [facility] [place] Work Phone: Creatinine [Mass/Vol] 1.37 mg/dL above high threshold See Below [facility] Work Phone: Comment on above: Reference Range: 0.5 0 - 1.30 Glucose [Mass/Vol] 95 mg/dL 74 - [address] [facility] [place] Work Phone: Potassium [Moles/Vol] 4.1 mmol/L 3.5 - 5.3 [facility] [place] Work Phone: Sodium [Moles/Vol] 138 mmol/L 136 - [address] [facility] [facility] Work Phone: Urea nitrogen [Mass/Vol] 14 mg/dL 6 - 23 [facility] Work Phone: MAGNESIUMon 11-06-2022 Magnesium [Mass/Vol] 2.06 mg/dL Normal 1.60 - 2.40 [facility] Comment on above: Performed By: #### M G #### [address] [id number] Magnesium, Serumon Magnesium [Mass/Vol] 2.06 mg/dL See Below [facility] Work Phone: Comment on above: Reference Range: 1.6 0 - 2.40 No Panel Informationon 11-06 57 {mL/min/1.73m2} Abnormal >90 [facility] [facility] [place] Work Phone: Comment on above: CALCULATIONS OF MEGAN MATED GFR ARE PERFORMED USING THE 2020 CKD-EPI STUDY REFIT EQUATION WITHOUT THE RACE VARIABLE FOR THE IDMS-TRACEABLE CREATININE METHODS.https://jasn.asnjournals.org/content//ASN .0662051972 Rehab Note-occupational therapist aide rohit 11-06-2022 Rehab Note-occupational therapy Rehab: Info: Mode of Treatmentoccupational therapy Time IN10:20 Time OUT10:58 Total Treatment [id number] Patient in ... at end of sessionchair; [...] sitting on sofas and armless chairs. Sit-Stand [place] (Transfers)contact guard Sit-Stand Assistive Device (Transfers)walker, front-wheeled Stand-Sit [place] (Transfers)contact guard Stand-Sit Assistive Device (Transfers)walker, front-wheeled Toilet [place] (Transfers)contact guard Toilet Assistive Device (Transfer)grab bars/safety [...] alignment. UB bathing and dressing with SBA [place] Level (Lower Body Dressing)don; pants/bottoms; shoes/slippers; minimum assist (75% patient effort) Assistive Devices (Lower Body Dressing)sound controller Comment (Lower Body Dressing)Pt educated on use of sound controller and sock aid for LB dressing with fair understanding and return demonstration. [place] Level (Grooming)contact guard Comment (Grooming)Pt performed G/H tasks in stance at sink with fair balance x 2 1/2 min Motor: Guj-vh-Qorij (Balance)fair balance Standing, Static (Balance)fair balance Standing, [...] Upper Body Dressing: Established Upper Body Dressing: [place] Level Goalstand-by assist Upper Body Dressing: Time Frame for Goal2 wks Lower Body Dressing: Established Lower Body Dressing: [place] Level Goalminimum assist (75% patients effort) Lower [...] to d (more content not included)... Normal [facility] Rehab Note-physical therapyo n 11-06-2022 Rehab Note-physical therapy Rehab: Info: Disciplinephysical therapist Mode of Treatmentphysical therapy Time IN13:41 Time OUT14:07 Total Treatment Grgtaxq69 Patient in ... at end of sessionbed, [...] Score18 Short Term Goals: Bed Mobility: Date Qacqogzzfjk24-Jgv-5998 Bed Mobility: [place] Level Goalmodified independent; supine <> sidelying <> sitting Transfer: Established Transfer: Transfer Type Ezptkxz-hb-eirul/chair-to- bed; yum-lo-aebsg/vxsoy-sl-kvc Transfer: [place] Level Goalmodified independent Transfer: Assistive Device Goalrolling walker Gait: Established Gait: [place] Level Goalmodified independent Gait: Assistive Device Goalrolling walker Gait: Distance Rcxn764' Education: Learnerpatient Barriers to Learningno barrier Methodverbal [...] home Outcome Summary: Predicted Duration of Therapy Rbvhldconggs50 days Progress: Physical Therapyprogress toward functional goals as expected Therapy Frequency (PT Eval)2 times/day Predicted Duration of Therapy Oqykggrygdnj63 days DC Recommendations: Discharge Recommendation (PT Eval)Pt would benefit from [facility] Electronic Signatures: Daniela Scott (PT) (Signed 07-Nov-2022 03:43) Co-Signer: Info, Mobility/Tone, Motor, Sensory, Outcomes Tools, Short Term Goals, Education, Outcome Summary, DC Recommendations Fior Velez (SPT) (Signed 06-Nov-2022 14:31) Authored: Info, Mobility/Tone, Motor, Sensory, Outcomes Tools, Short Term Goals, Education, Outcome Summary, DC Recommendations Last Updated: 07-Nov-2022 03:43 by Daniela Scott (PT) Normal [facility] Rehab Note-physical therapy Rehab: Info: Mode of Treatmentphysical therapy Time IN09:36 Time OUT10:17 Total Treatment Divyykn72 Patient in ... at end of sessionchair; alarm on Patient Effortgood Symptoms Noted During/After Treatmentfatigue Treatment Considerations/CommentsSer vices provided by Alta Velez, [facility] with direct supervision and guidance from Daniela [...] Score18 Short Term Goals: Bed Mobility: Date Ywaenxzltfw40-Huv-6640 Bed Mobility: [place] Level Goalmodified independent; supine <> sidelying <> sitting Transfer: Established Pgxh75-Hjv-6615 Transfer: Transfer Type Oyjxede-de-qdpas/chair-to- bed; lmy-bw-utadr/bubas-qw-jfh Transfer: [place] Level Goalmodified independent Transfer: Assistive Device Goalrolling walker Gait: Established Yfmd06-Ybx-9759 Gait: [place] Level Goalmodified independent Gait: Assistive Device Goalrolling walker Gait: Distance Mcdk862' Education: Learnerpatient Methodverbal Topicrehab plan of care; precautions; discharge recommendations including destination and/or equipment; fall prevention Education - Topicproper use of FWW for transfers and gait to reduce the risk of fall, reviewed spinal precautions and body mechanics for getting in and out of bed, concerns for discharging home Outcome Summary: Predicted Duration of Therapy Oxgasvqnwupf36 days Progress: Physical Therapyprogress towards functional goals is fair Therapy Frequency (PT Eval)2 times/day Predicted Duration of Therapy Esivwanavcwm60 days DC Recommendations: Discharge Recommendation (PT Eval)Pt would benefit from [facility] Electronic Signatures: Daniela Scott (PT) (Signed 07-Nov-2022 03:43) Co-Signer: Info, Mobility/Tone, Outcomes Tools, Short Term Goals, Education, Outcome Summary, DC Recommendations Fior Velez (SPT) (Signed 06-Nov-2022 14:30) Authored: Info, Mobility/Tone, Outcomes Tools, Short Term Goals, Education, Outcome Summary, DC Recommendations Last Updated: 07-Nov-2022 03:43 by Daniela Scott (PT) Normal [facility] BASIC METABOLIC PANELon - Anion gap [Moles/Vol] 12 mmol/L Normal 10 - 20 [facility] Comment on above: Performed By: #### B MP #### [address] [id number] Calcium [Mass/Vol] 8.8 mg/dL Normal 8.6 - 10.3 [facility] Comment on above: Performed By: #### B MP #### [address] [id number] Chloride [Moles/Vol] 101 mmol/L Normal 98 - 107 [facility] Comment on above: Performed By: #### B MP #### [address] [id number] Creatinine [Mass/Vol] 1.75 mg/dL High 0.50 - 1.30 [facility] Comment on above: Performed By: #### B MP #### [address] [id number] GFR/1.73 sq M.predicted among non-blacks MDRD (S/P/Bld) [Vol rate/Area] 42 mL/min/{1.73_m2} Abnormal >90 [facility] Comment on above: Result Comment: CALC ULATIONS OF ESTIMATED GFR ARE PERFORMED USING THE 2020 CKD-EPI STUDY REFIT EQUATION WITHOUT THE RACE VARIABLE FOR THE IDMS-TRACEABLE CREATININE METHODS. https://jasn.asnjournals.org/content/early//ASN.2151837 988 Performed By: #### B MP #### [address] [id number] Glucose [Mass/Vol] 131 mg/dL High 74 - 99 [facility] Comment on above: Performed By: #### B MP #### [address] [id number] HCO3 (Bld) [Moles/Vol] 26 mmol/L Normal 21 - 32 [facility] Comment on above: Performed By: #### B MP #### [address] [id number] Potassium [Moles/Vol] 4.0 mmol/L Normal 3.5 - 5.3 [facility] Comment on above: Performed By: #### B MP #### [address] [id number] Sodium [Moles/Vol] 135 mmol/L Low 136 - 145 [facility] Comment on above: Performed By: #### B MP #### [address] [id number] Urea nitrogen [Mass/Vol] 14 mg/dL Normal 6 - 23 [facility] Comment on above: Performed By: #### B MP #### [address] [id number] CBCon 11-05-2022 Erythrocyte distribution width (RBC) [Ratio] 13.4 % Normal 11.5 - 14.5 [facility] Comment on above: Performed By: #### C BC #### [address] [id number] Hematocrit (Bld) [Volume fraction] 43.6 % Normal 41.0 - 52.0 [facility] Comment on above: Performed By: #### C BC #### [address] [id number] Hemoglobin (Bld) [Mass/Vol] 14.3 g/dL Normal 13.5 - 17.5 [facility] Comment on above: Performed By: #### C BC #### [address] [id number] MCHC (RBC) [Mass/Vol] 32.8 g/dL Normal 32.0 - 36.0 [facility] Comment on above: Performed By: #### C BC #### [address] [id number] MCV (RBC) [Entitic vol] 96 fL Normal 80 - 100 [facility] Comment on above: Performed By: #### C BC #### [address] [id number] Platelets (Bld) [#/Vol] 244 10*3/uL Normal 150 - 450 [facility] Comment on above: Performed By: #### C BC #### [address] [id number] RBC 4.54 x10E12/L Normal 4.50 - 5.90 [facility] Comment on above: Performed By: #### C BC #### [address] [id number] WBC (Bld) [#/Vol] 16.4 10*3/uL High 4.4 - 11.3 [facility] Comment on above: Performed By: #### C BC #### [address] [id number] Daily Progress Note-General Internal Medicineon 11-05-2022 Daily [...] intact. Objective Data: Objective Information: T PRBPMAPSpO2 Value36.81984876/488589% Date/Time11/05 7: 0: 0: 7: 7: 7:33 [...] ----- Mn/Dy/Year TimeIntakeOutputNet Nov 05, 2022 6:00 [id number] Nov 04, 2022 10:00 [id number] Nov 04, 2022 2:00 [id number] The Intake and Output Totals for the last 24 hours are: IntakeOutputNet [id number] Physical Exam Narrative: Physical Exam: Constitutional: awake/alert/oriented [...] interview, assessm (more content not included)... Normal [facility] Daily Progress Note-Orthopae frederic 11-05-2022 Daily Progress Note-Orthopaedics Service: Orthopaedics Subjective Data: ERIK MORALES is a 67 year old Male who is Hospital Day # 2 and POD #1 for 1. ;2. ;3. ;4. ;5. Overnight Events: Patient had an uneventful night. Objective Data: Objective Information: T PRBPMAPSpO2 Value36.29766088/218600% Date/Time11/05 7: 0:40912 0:40912 7:339 7: 7:33 [...] ----- Mn/Dy/Year TimeIntakeOutputNet Nov 05, 2022 6:00 [id number] Nov 04, 2022 10:00 [id number] Nov 04, 2022 2:00 [id number] The Intake and Output Totals for the last 24 hours are: IntakeOutputNet [id number] T PRBPMAPSpO2 Value36.61462643/939434% Date/Time11/05 7: 0: 0: 7: 7: 7:33 [...] out of bed Electronic Signatures: Derrick Cunningham (INSTRUCTIONAL TECHNOLOGY INSTRUCTOR-CASE MANAGEMENT ASSOCIATE) (Signed 05-Nov-2022 08:16) Authored: Service, Subjective Data, Objective Data, Assessment and Plan, Note Completion Curtis Maldonado) (Signed 05-Nov-2022 09:30) Co-Signer: Service, Subjective Data, Objective Data, Assessment and Plan, Note Completion Last Updated: 05-Nov-2022 09:30 by Curtis Maldonado) [facility] Laboratory - Chemistry and C hemistry - challengeon 11-05-2022 Anion gap [Moles/Vol] 12 mmol/L 10 - 20 [facility] [place] Work Phone: Calcium [Mass/Vol] 8.8 mg/dL 8.6 - 10.[address] [facility] [place] Work Phone: Chloride [Moles/Vol] 101 mmol/L 98 - 107 [facility] [place] Work Phone: CO2 [Moles/Vol] 26 mmol/L 21 - 32 [facility] [place] Work Phone: Creatinine [Mass/Vol] 1.75 mg/dL above high threshold See Below [facility] [place] Work Phone: Comment on above: Reference Range: 0.5 0 - 1.30 Glucose [Mass/Vol] 131 mg/dL above high threshold 74 - 99 -[place] [facility] [place] Work Phone: Potassium [Moles/Vol] 4.0 mmol/L 3.5 - 5.3 [facility] [place] Work Phone: Sodium [Moles/Vol] 135 mmol/L below low threshold 136 - 145 [facility] [place] Work Phone: Urea nitrogen [Mass/Vol] 14 mg/dL 6 - 23 [facility] [place] Work Phone: Laboratory - Hematology and Cell countson 11-05-2022 Erythrocyte distribution width (RBC) [Ratio] 13.4 % See Below [facility] Work Phone: Comment on above: Reference Range: 11. 5 - 14.5 Hematocrit (Bld) [Volume fraction] 43.6 % See Below [facility] Work Phone: Comment on above: Reference Range: 41. 0 - 52.0 Hemoglobin (Bld) [Mass/Vol] 14.3 g/dL See Below [facility] Work Phone: [phone] Comment on above: Reference Range: 13. 5 - 17.5 MCHC (RBC) [Mass/Vol] 32.8 g/dL See Below [facility] Work Phone: Comment on above: Reference Range: 32. 0 - 36.0 MCV (RBC) [Entitic vol] 96 fL 80 - 100 [facility] Work Phone: [phone] Platelets (Bld) [#/Vol] 244 10*3/uL 150 - 450 [facility] Work Phone: [phone] RBC (Bld) [#/Vol] 4.54 {x10E12/L} See Below [facility] Work Phone: [phone] Comment on above: Reference Range: 4.5 0 - 5.90 WBC (Bld) [#/Vol] 16.4 10*3/uL above high threshold 4.4 - 11.3 [facility] Work Phone: No Panel Informationon 11-05 42 {mL/min/1.73m2} Abnormal >[address] [facility] Work Phone: Comment on above: CALCULATIONS OF MEGAN MATED GFR ARE PERFORMED USING THE 2020 CKD-EPI STUDY REFIT EQUATION WITHOUT THE RACE VARIABLE FOR THE IDMS-TRACEABLE CREATININE METHODS.https://jasn.asnjournals.org/content/early/ASN .6021638206 OT Evaluation v2-occupationa l therapyon 11-05-2022 OT Evaluation v2-occupational therapy Rehab: Info: Mode of Treatmentoccupational therapy Time IN07:41 Time OUT08:05 Total Treatment Minutes0 Patient Effortgood Symptoms Noted During/After Treatmentnone Patient Profile Reviewedyes Onset of Illness/Injury or Date of Kdvffdh27-Kev-5263 Reason for ReferralL2-3, L3-4 lami, L3-4 lateral [...] Static (Balance)good balance Sitting, Dynamic (Balance)good balance Bnd-dp-Ouoas (Balance)good balance Standing, Static (Balance)fair balance Standing, Dynamic (Balance)fair balance Sensory: Pre-Treatment Pain Rating3/10 Post-Treatment Pain Rating3/10 Comment, Pre/Post Treatment Painlow back pain Sensory General Assessmentno sensation deficits identified Impression: Criteria for Skilled Therapeutic Interventions Met (OT Eval)treatment indicated OT DiagnosisADL impairment Rehab Potential (OT Eval)good, to achieve stated therapy goals Therapy Frequency (OT Eval)2 times/wk Predicted Duration of Therapy Aqkfpxltqwjg09 days Functional Limitations in Following Categoriesself-care Planned [...] Upper Body Dressing: Established Upper Body Dressing: [place] Level Goalstand-by assist Upper Body Dressing: Time Frame for Goal2 wks Lower Body Dressing: Established Lower Body Dressing: [place] Level Goalminimum assist (75% patients effort) Lower [...] 05-Nov-2022 09:56 by Marianna Hayes (OT) Normal [facility] PT Evaluation v2-physical th erapyon 11-05-2022 PT Evaluation v2-physical therapy Rehab: Info: Mode of Treatmentphysical therapy Time IN07:45 Time OUT08:05 Patient in ... at end of sessionchair; alarm on Patient Effortgood Patient Profile Reviewedyes Onset of Illness/Injury or Date of Llqnffd06-Bfv-6957 Reason for ReferralSurgery 11.04.2022 L3-4 lateral interbody [...] Static (Balance)good balance Sitting, Dynamic (Balance)fair balance Obz-hh-Hklja (Balance)fair + Standing, Static (Balance)fair + Standing, [...] (PT Eval)2 times/day Predicted Duration of Therapy Zhnelceqhleb50 days Outcomes Tools: Turning from your back [...] in hosp (more content not included)... Normal [facility] Rehab Note-physical therapyo n 11-05-2022 Rehab Note-physical therapy Rehab: Info: Disciplinephysical educational therapy teacher Mode of Treatmentphysical therapy Time IN14:19 Time OUT14:44 Total Treatment Jnttxsh55 Patient in ... at end of sessionbed, [...] Score18 Short Term Goals: Bed Mobility: Date Qqbjnecdgna70-Ufz-3205 Bed Mobility: [place] Level Goalmodified independent; supine <> sidelying <> sitting Transfer: Established Cepx82-Fij-8091 Transfer: Transfer Type Wyiuyky-jg-hjgnt/chair-to- bed; fng-qf-tocjg/ldjpm-uo-gfl Transfer: [place] Level Goalmodified independent Transfer: Assistive Device Goalrolling walker Gait: Established Fzfc94-Fww-8814 Gait: [place] Level Goalmodified independent Gait: Assistive Device Goalrolling walker Gait: Distance Lffg288' Education: Learnerpatient; family member Methodverbal Outcome Evaluation1=partially meets; needs review Education - Topicpt able to recall spinal precautions , Able to don and doff TLSO brace Outcome Summary: Progress: Physical Therapyprogress toward functional goals as expected Electronic Signatures: Kelsea Cueto (ORTHOPEDIC CAST SPECIALIST) (Signed 05-Nov-2022 16:34) Authored: Info, Mobility/Tone, Sensory, Outcomes Tools, Short Term Goals, Education, Outcome Summary Daniela Scott (PT) (Signed 06-Nov-2022 03:32) Co-Signer: Info, Mobility/Tone, Sensory, Outcomes Tools, Short Term Goals, Education, Outcome Summary Last Updated: 06-Nov-2022 03:32 by Daniela Scott (PT) Normal [facility] Admission Risk Screen - Adul ton 11-04-2022 Admission Risk Screen - Adult Allergies: Intolerances: nitroglycerin: Unknown Patient Verification: New W ID Band Applied in my Departmentno Type of ID Patient is WearingW wristband, but not applied here Patient [facility] Other [facility] ([facility], [facility],etc)no Patient Identity Verified Bypatient ID [...] AlertFor Ebola-like Symptoms: Isolate Patient and Notify Provider/Business Partner For Contact: Notify Provider/Business Partner Advance Directive: Advance Directive/DNRyes Advance Directive typeLiving Will, Durable Power of Independent Driver for Healthcare Living Will AvailabilityLiving Will not available now Living Will Dnuannqqz36-Cmy-5207 Durable Power of Independent Driver AvailabilityDPOA not available now Durable Power of Independent Driver Ekymzfefx88-Aml-1092 Durable Power of Independent Driver contact (name and number)Dana [phone] [place] Fall Screen: History of falling (immediate [...] instruction; skill demonstration Cultural Considerationsnone Developmental Considerationsnone Confucianism Considerationsnone Learning Assessment (Other Learner): Other learner availableno Depression Screen: During the past month, have you often been bothered by feeling down, depressed or hopelessno During the past month, have you often had little interest or pleasure in doing thingsno Have you had any thoughts of harming anyone elseno Pettus Suicide: Risk Screen Not Applicable/Able to Answerable to be screened In the Past Month: Have you wished you were or could go to sleep and not wake upno In the Past Month: Have you had any actual thoughts of killing yourselfno Lifetime: Have you ever done, started to do, or prepared to do anything to end your lifeno Pettus Suicide Risknegative Adult Nutrition Screen: Have you [...] (frequency/quality)frequen t; (more content not included)... Normal [facility] Consult-General Internal Med sotero 11-04-2022 Consult-General [...] nitroglycerin: Unknown Objective: Objective Information: T PRBPMAPSpO2 Value36.31380449/9506961% Date/Time11/04 15: 15: 15: 15: 15: 15:32 [...] to b (more content not included)... Normal [facility] Discharge Planning Qlrj7gq 0 11-04-2022 Discharge Planning Note2 Discharge Planning: Planned Dispositionhome Discharge Destinationhome [place] of Choice Explainedyes Anticipated Discharge [place]45-Sjk-8946 Discharge Planning 11/04/22 @ 1508 hours: Received [...] he is independent of ADLs and IADLs ORTHOPEDIC CAST SPECIALIST and does not use AD. Drives. Pt plans to dc home. CT team will continue to monitor care progression and potential dc needs. Darya Jay RN TCC 11/06/22 0900 TCC UPDATE: [facility] score is PT (18) OT (16), PT recommends home no further PT needs. Per rounding report with David Cunningham CNP and team, pt is s/p Lami fusion and dura tear, pt has lumbosacral brace, will DC marian no needs, ADOD today vs tomorrow. CT team will continue monitoring case for progression and potential DC needs. Sultana Jones RN TCC. Assessment: Discharge Planning Assessment Bbdq61-Bfi-3135 Primary Contact Name and NumberDale (brother) [phone] Lives Withsibling(s) [place] [facility] Anticipated at Transitionnone InsuranceDevoted Anticipated Changes [...] 06-Nov-2022 15:26 by Sultana Jones (CLIN [employer]OR) [facility] Order Reconciliationon 11-04 Order Reconciliation Page 1 Admission Reconciliation Document Reconciliation Type: Admission requested on behalf of Heidy Escobar (Advanced Practice Nurse) done by Heidy Escobar ([facility]) Admission - Partial Reconciliation: 04-Nov-2022 15:50 by: Heidy Escobar ([facility]) Admission - Reconciliation: 04-Nov-2022 15:50 by: Heidy Escobar ([facility]) Home MedicationsEnteredLast Dose TakenReconciled with current Order Reconciliation Comment/ Additional Information atorvastatin 40 mg oral tablet 1 tab(s) orally once a day (at bedtime) [id number]-2533 PM Atorvastatin Tablet (LIPITOR)DOSE = 40 mg Oral At Bedtimeatorvastatin 40 mg oral tablet continued as the inpatient order Atorvastatin baclofen 10 mg oral tablet 1 tab(s) orally once a pdh03-Vud-926865-Tuu-0941 PM Reviewed and Held Eliquis 5 mg oral tablet 1 tab(s) orally 2 times a day---AWARE TO HOLD PRIOR TO PROCEDURE Reviewed and Held furosemide 20 mg oral tablet 1 tab(s) orally once a mco71-Mxd-552695-Par-8393 AM Furosemide Tablet (LASIX)DOSE = 20 mg Oral Dailyfurosemide 20 mg oral tablet is continued and suspended as Furosemide lisinopril 20 mg oral tablet 1 tab(s) orally once a qpl90-Fbt-095799-Qlg-7621 PM Lisinopril Tablet (PRINIVIL, ZESTRIL)DOSE = 20 mg Oral Dailylisinopril 20 mg oral tablet is continued and suspended as Lisinopril metoprolol tartrate 25 mg oral tablet 1 tab(s) orally 2 times a day---AWARE TO TAKE MORNING OF PROCEDUE WITH A SIP OF TFTYB67-Wot-855374-Gjv-451 3 02:30 AM Reviewed and Held Multiple Vitamins oral tablet 1 tab(s) orally once a kpu29-Kui-904804-Nov-2022 AM Multivitamin with Minerals TabletDOSE = 1 tablet(s) Oral Daily Multiple Vitamins oral tablet continued as the inpatient order Multivitamin with Minerals nortriptyline 25 mg oral capsule orally once a cye37-Ggv-581073-Drf-7024 PM Nortriptyline Capsule (PAMELOR)DOSE = 25 mg [...] tab(s) orally 2 times a day, As Lmkcxm77-Crr-079590-Cuc-79 23 Reviewed and Held Potassium Chloride (Kql-Pmhv-Gcd 10) 10 mEq oral tablet, extended release 1 tab(s) orally once a eja30-Btu-406832-Ezj-6718 PM Reviewed and Held Additional Current Orders [...] HoursRecommended Infusion Time: 60 minute(s) Normal [facility] Radiologyon 11-04-2022 Fluoroscopy duration Please click on the link to view the study images Normal [facility] [facility] Work Phone: Established Visit (Orthopaed ic Surgery)on [...] instructions were (more content not included)... Normal [employer] APTTon 10-21-2022 aPTT Coag (Bld) [Time] 34 s Normal 27 - 38 [facility] Comment on above: Result Comment: Note new reference range as of 08/13/2022 at 10:00am. Performed By: #### A PTT #### [address] [id number] Activated Partial Thrombopla stin Timeon 10-21-2022 aPTT Coag (PPP) [Time] 34 s 27 - 38 -[facility] Work Phone: Comment on above: Note new reference r jana as of 08/13/2022 at 10:00am. CBC AND DIFFERENTIALon 10-21 % AUTOMATED IMMATURE GRAN 0.3 % Normal 0.0 - 0.9 [facility] Comment on above: Result Comment: Jovanna ture Granulocyte Count (IG) includes promyelocytes, myelocytes and metamyelocytes but does not include bands. Percent differential counts (%) should be interpreted in the context of the absolute cell counts (cells/L). Performed By: #### C BCDF #### [address] [id number] Basophils (Bld) [#/Vol] 0.11 10*3/uL High 0.00 - 0.10 [facility] Comment on above: Performed By: #### C BCDF #### [address] [id number] Basophils/100 WBC (Bld) 1.2 % Normal 0.0 - 2.0 [facility] Comment on above: Performed By: #### C BCDF #### [address] [id number] Eosinophils (Bld) [#/Vol] 0.21 10*3/uL Normal 0.00 - 0.70 [facility] Comment on above: Performed By: #### C BCDF #### [address] [id number] Eosinophils/100 WBC (Bld) 2.2 % Normal 0.0 - 6.0 [facility] Comment on above: Performed By: #### C BCDF #### [address] [id number] Erythrocyte distribution width (RBC) [Ratio] 13.5 % Normal 11.5 - 14.5 [facility] Comment on above: Performed By: #### C BCDF #### [address] [id number] Hematocrit (Bld) [Volume fraction] 44.9 % Normal 41.0 - 52.0 [facility] Comment on above: Performed By: #### C BCDF #### [address] [id number] Hemoglobin (Bld) [Mass/Vol] 14.8 g/dL Normal 13.5 - 17.5 [facility] Comment on above: Performed By: #### C BCDF #### [address] [id number] Lymphocytes (Bld) [#/Vol] 1.28 10*3/uL Normal 1.20 - 4.80 [facility] Comment on above: Performed By: #### C BCDF #### [address] [id number] Lymphocytes/100 WBC (Bld) 13.6 % Normal 13.0 - 44.0 [facility] Comment on above: Performed By: #### C BCDF #### [address] [id number] MCHC (RBC) [Mass/Vol] 33.0 g/dL Normal 32.0 - 36.0 [facility] Comment on above: Performed By: #### C BCDF #### [address] [id number] MCV (RBC) [Entitic vol] 94 fL Normal 80 - 100 [facility] Comment on above: Performed By: #### C BCDF #### [address] [id number] Monocytes (Bld) [#/Vol] 0.72 10*3/uL Normal 0.10 - 1.00 [facility] Comment on above: Performed By: #### C BCDF #### [address] [id number] Monocytes/100 WBC (Bld) 7.7 % Normal 2.0 - 10.0 [facility] Comment on above: Performed By: #### C BCDF #### [address] [id number] Neutrophils (Bld) [#/Vol] 7.04 10*3/uL Normal 1.20 - 7.70 [facility] Comment on above: Performed By: #### C BCDF #### [address] [id number] Neutrophils/100 WBC (Bld) 75.0 % Normal 40.0 - 80.0 [facility] Comment on above: Performed By: #### C BCDF #### [address] [id number] Platelets (Bld) [#/Vol] 251 10*3/uL Normal 150 - 450 [facility] Comment on above: Performed By: #### C BCDF #### [address] [id number] RBC 4.78 x10E12/L Normal 4.50 - 5.90 [facility] Comment on above: Performed By: #### C BCDF #### [address] [id number] WBC (Bld) [#/Vol] 9.4 10*3/uL Normal 4.4 - 11.3 [facility] Comment on above: Performed By: #### C BCDF #### [address] [id number] COMPREHENSIVE PANELon 2022 Albumin [Mass/Vol] 4.0 g/dL Normal 3.4 - 5.0 [facility] Comment on above: Performed By: #### C BC #### [address] [id number] ALP [Catalytic activity/Vol] 127 U/L Normal 33 - 136 [facility] Comment on above: Performed By: #### C BC #### [address] [id number] ALT [Catalytic activity/Vol] 16 U/L Normal 10 - 52 [facility] Comment on above: Result Comment: Becca ents treated with Sulfasalazine may generate falsely decreased results for ALT. Performed By: #### C BC #### [address] [id number] Anion gap [Moles/Vol] 12 mmol/L Normal 10 - 20 [facility] Comment on above: Performed By: #### C BC #### [address] [id number] AST [Catalytic activity/Vol] 21 U/L Normal 9 - 39 [facility] Comment on above: Performed By: #### C BC #### [address] [id number] Bilirubin [Mass/Vol] 0.6 mg/dL Normal 0.0 - 1.2 [facility] Comment on above: Performed By: #### C BC #### [address] [id number] Calcium [Mass/Vol] 9.3 mg/dL Normal 8.6 - 10.3 [facility] Comment on above: Performed By: #### C BC #### [address] [id number] Chloride [Moles/Vol] 103 mmol/L Normal 98 - 107 [facility] Comment on above: Performed By: #### C BC #### [address] [id number] Creatinine [Mass/Vol] 1.29 mg/dL Normal 0.50 - 1.30 [facility] Comment on above: Performed By: #### C BC #### [address] [id number] GFR/1.73 sq M.predicted among non-blacks MDRD (S/P/Bld) [Vol rate/Area] 61 mL/min/{1.73_m2} Normal >90 [facility] Comment on above: Result Comment: CALC ULATIONS OF ESTIMATED GFR ARE PERFORMED USING THE 2020 CKD-EPI STUDY REFIT EQUATION WITHOUT THE RACE VARIABLE FOR THE IDMS-TRACEABLE CREATININE METHODS. https://jasn.asnjournals.org/content//ASN.7240934 988 Performed By: #### C BC #### [address] [id number] Glucose [Mass/Vol] 103 mg/dL High 74 - 99 [facility] Comment on above: Performed By: #### C BC #### [address] [id number] HCO3 (Bld) [Moles/Vol] 27 mmol/L Normal 21 - 32 [facility] Comment on above: Performed By: #### C BC #### [address] [id number] Potassium [Moles/Vol] 3.8 mmol/L Normal 3.5 - 5.3 [facility] Comment on above: Performed By: #### C BC #### [address] [id number] Protein [Mass/Vol] 7.4 g/dL Normal 6.4 - 8.2 [facility] Comment on above: Performed By: #### C BC #### [address] [id number] Sodium [Moles/Vol] 138 mmol/L Normal 136 - 145 [facility] Comment on above: Performed By: #### C BC #### [address] [id number] Urea nitrogen [Mass/Vol] 11 mg/dL Normal 6 - 23 [facility] Comment on above: Performed By: #### C BC #### [address] [id number] Complete Blood Count + Diffe rentialon 10-21-2022 Basophils/100 WBC (Bld) 1.2 % 0.0 - 2.0 [facility] Work Phone: Erythrocyte distribution width (RBC) [Ratio] 13.5 % See Below [facility] Work Phone: Comment on above: Reference Range: 11. 5 - 14.5 Hematocrit (Bld) [Volume fraction] 44.9 % See Below [facility] Work Phone: Comment on above: Reference Range: 41. 0 - 52.0 Hemoglobin (Bld) [Mass/Vol] 14.8 g/dL See Below [facility] [place] Work Phone: Comment on above: Reference Range: 13. 5 - 17.5 Lymphocytes/100 WBC (Bld) 13.6 % See Below [facility] [place] Work Phone: [phone] Comment on above: Reference Range: 13. 0 - 44.0 MCHC (RBC) [Mass/Vol] 33.0 g/dL See Below [facility] [place] Work Phone: [phone] Comment on above: Reference Range: 32. 0 - 36.0 MCV (RBC) [Entitic vol] 94 fL 80 - 100 [facility] [place] Work Phone: [phone] Monocytes/100 WBC (Bld) 7.7 % 2.0 - 10.0 [facility] [place] Work Phone: [phone] Neutrophils/100 WBC (Bld) 75.0 % See Below [facility] [place] Work Phone: [phone] Comment on above: Reference Range: 40. 0 - 80.0 Platelets (Bld) [#/Vol] 251 10*3/uL 150 - 450 [facility] [place] Work Phone: [phone] RBC (Bld) [#/Vol] 4.78 {x10E12/L} See Below [facility] [place] Work Phone: [phone] Comment on above: Reference Range: 4.5 0 - 5.90 WBC (Bld) [#/Vol] 9.4 10*3/uL 4.4 - 11.3 [facility] [place] Work Phone: [phone] Complete Blood Count + Differential 0.11 {x10E9/L} above high threshold See Below [facility] [place] Work Phone: [phone] Comment on above: Reference Range: 0.0 0 - 0.10 Complete Blood Count + Differential 0.21 {x10E9/L} See Below [facility] Work Phone: Comment on above: Reference Range: 0.0 0 - 0.70 Complete Blood Count + Differential 0.72 {x10E9/L} See Below [facility] Work Phone: Comment on above: Reference Range: 0.1 0 - 1.00 Complete Blood Count + Differential 1.28 {x10E9/L} See Below [facility] Work Phone: Comment on above: Reference Range: 1.2 0 - 4.80 Complete Blood Count + Differential 7.04 {x10E9/L} See Below [facility] Work Phone: Comment on above: Reference Range: 1.2 0 - 7.70 Complete Blood Count + Differential 2.2 % 0.0 - 6.0 [facility] Work Phone: Complete Blood Count + Differential 0.3 % 0.0 - 0.9 [facility] Work Phone: Comment on above: Immature Granulocyte Count (IG) includes promyelocytes, myelocytes and metamyelocytes but does not include bands. Percent differential counts (%) should be interpreted in the context of the absolute cell counts (cells/L). Electrocardiogram 12 Leadon 10-21-2022 Electrocardiogram 12 Lead Ventricular Rate 64 Atrial Rate 64 P-R Interval 172 QRS Duration 84 Q-T Interval 398 QTC Calculation(Bazett) 410 P Rudyard 22 R Rudyard 17 T Rudyard 32 QRS Count 11 Q Onset 225 P Onset 139 P Offset 198 T Offset 424 QTC Fredericia 406 Diagnosis Class Borderline Normal Diagnosis Normal sinus rhythm Early transition Otherwise normal ECG No previous ECGs available Confirmed by Curtis Trejo ([id number]) on 10/24/2022 9:27:12 AM Normal [facility] - Chemistry and C hemistry - challengeon 10-21-2022 Albumin BCP dye [Mass/Vol] 4.0 g/dL 3.4 - 5.0 [facility] Work Phone: [phone] ALP [Catalytic activity/Vol] 127 U/L 33 - 136 [facility] Work Phone: [phone] ALT With P-5'-P [Catalytic activity/Vol] 16 U/L 10 - 52 [facility] Work Phone: [phone] Comment on above: Patients treated wit h Sulfasalazine may generate falsely decreased results for ALT. Anion gap [Moles/Vol] 12 mmol/L 10 - 20 [facility] Work Phone: [phone] AST With P-5'-P [Catalytic activity/Vol] 21 U/L 9 - 39 [facility] Work Phone: [phone] Bilirubin [Mass/Vol] 0.6 mg/dL 0.0 - 1.2 [facility] Work Phone: [phone] Calcium [Mass/Vol] 9.3 mg/dL 8.6 - 10.[address] [facility] Work Phone: [phone] Chloride [Moles/Vol] 103 mmol/L 98 - 107 [facility] Work Phone: [phone] CO2 [Moles/Vol] 27 mmol/L 21 - 32 [facility] Work Phone: [phone] Creatinine [Mass/Vol] 1.29 mg/dL See Below -[facility] Work Phone: [phone] Comment on above: Reference Range: 0.5 0 - 1.30 Glucose [Mass/Vol] 103 mg/dL above high threshold 74 - 99 -[facility] Work Phone: [phone] Potassium [Moles/Vol] 3.8 mmol/L 3.5 - 5.3 -[facility] [place] Work Phone: [phone] Protein [Mass/Vol] 7.4 g/dL 6.4 - 8.[address] [facility] [place] Work Phone: [phone] Sodium [Moles/Vol] 138 mmol/L 136 - [address] [facility] [place] Work Phone: [phone] Urea nitrogen [Mass/Vol] 11 mg/dL 6 - 23 [facility] [place] Work Phone: [phone] - Coagulationon 0 10-21-2022 INR Coag (PPP) [Relative time] 1.4 {INR} above high threshold 0.9 - 1.1 [facility] [place] Work Phone: [phone] PT Coag (PPP) [Time] 16.2 s above high threshold 9.8 - 12.8 [facility] [place] Work Phone: [phone] Comment on above: Note new reference yrn bates as of 08/13/2022 at 10:00am. MRSA Screenon 10-21-2022 Staphylococcus sp identified Org specific cx Nom (Unsp spec) Abnormal [facility] [employer] Work Phone: [phone] Panel Informationon 10-21 [email or web address] ?RetrieveTestByDateTime?Pa jyeguPP=[id number]&Date=&Time=14%3a28%3a16% 3a00&TestType=ECG&Site=1&O utputType=PDF&Ext=PDF [facility] [place] Work Phone: [phone] Normal sinus rhythm [facility] [place] Work Phone: [phone] Borderline Normal [facility] [place] Work Phone: -[facility] [place] Work Phone: [phone] -[facility] [place] Work Phone: [phone] [facility] [place] Work Phone: [phone] [facility] [place] Work Phone: [phone] [facility] [place] Work Phone: [phone] [facility] [place] Work Phone: [phone] [facility] [place] Work Phone: [phone] [facility] [place] Work Phone: [phone] [facility] [place] Work Phone: [phone] [facility] [place] Work Phone: [phone] [facility] [place] Work Phone: [phone] [facility] [place] Work Phone: [phone] [facility] [place] Work Phone: [phone] [facility] [place] Work Phone: 61 {mL/min/1.73m2} >90 [facility] [place] Work Phone: Comment on above: CALCULATIONS OF MEGAN MATED GFR ARE PERFORMED USING THE 2020 CKD-EPI STUDY REFIT EQUATION WITHOUT THE RACE VARIABLE FOR THE IDMS-TRACEABLE CREATININE METHODS.https://jasn.asnjournals.org/content/early//ASN .8364710729 PT/INRon 10-21-2022 PT Coag (PPP) [Time] 16.2 s High 9.8 - 12.8 [facility] Comment on above: Result Comment: Note new reference range as of 08/13/2022 at 10:00am. Performed By: #### P TINR #### [address] [id number] PT, INR 1.4 High 0.9 - 1.1 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 (procedure may be cancelled if no route driver coin machines), center location, insurance information Prep Instructions Reviewedyes Prep TypeCHG wipes Instructed to Have No Fluids AfterNPO after midnight How to be AddressedGarry Spoken Language PreferredEnglish Source of Informationpatient Stated Reason for AdmissionBack surgery Primary Contact Name and NumberJose Carlos (brother) [phone] Other Contact Names and NumbersDerick Garsia (friend) [phone] Limitations on Visitors/Phone Callsnone Medications Brought to Hospitalno General Health: Weight in kg90.4 kilogram(s) Weight in qtk189.2 pound(s) Weight Methodactual (measured) Scale Typestanding Height [...] CommentsLives with brother Resource/Environmental Concernsnone Anticipated Transition [facility] Anticipated at Transitionnone Tobacco Use: Tobacco Useno former cigar smoker, quit 15 years ago Pre-op Checklist: Arrival [id number] Arrival Time09:25 Procedure TypeL2-3, L3-4 LAMINECTOMY, L3-4 INSTRUMENTATION, L2-3, L3-4 POSTERIOR LATERAL FUSION, L3-4LATERAL LUMBAR INTERBODY FUSION NPOyes Last Food Maslnx42-[id number]-2080 18:30 Last Clear Fluid Dhnica45-Fdv-8134 19:00 ID Band On Patientpatient ID (name), falls risk Consent Signedyes H&P Completeyes Anesthesia Assessment Completedpending EKG Performedsee results tab Chest X-Ray Performednot ordered Preop Antibioticssent to OR Beta-sushant Last Dose Date/Gkda07-Exn-6305 02:30 Glucose Resultn/a Type and Screen Resultedn/a [...] 04-Nov-2022 05:56 by Moira [place] (SANTI) Normal [facility] STAPH/MRSA SCREENon 10-22-19 STAPH/MRSA SCREEN PATIENT: ERIK MORALES LOCATION: [facility] BILL#: [id number] : [birth year] AGE: SEX: M ORDERED BY: CURTIS MELÉNDEZ SOURCE: MISC COLLECTED: 10/21/22 14:18 ANTIBIOTICS AT TEDDY.: RECEIVED : 10/21/22 21:56 SITE: R E S U L T S STAPH/MRSA SCREEN FINAL 10/23/22 12:12 ISOLATE1 : Staphylococcus aureus METHICILLIN SENSITIVE STAPHYLOCOCCUS AUREUS (MSSA) Normal [facility] Comment on above: Performed By: #### S TAPH #### [facility] [address] [place] [address] URINALYSIS WITH CULTURE IF I NDICATEDon 10-21-2022 Appearance (U) CLEAR Normal CLEAR [facility] Comment on above: Performed By: #### U ARFX #### [address] [id number] Bilirubin Ql (U) Negative Normal NEGATIVE [facility] Comment on above: Performed By: #### U ARFX #### [address] [id number] Color (U) YELLOW Normal STRAW,YELLO W [facility] Comment on above: Performed By: #### U ARFX #### [address] [id number] Glucose Ql (U) Negative Normal NEGATIVE [facility] Comment on above: Performed By: #### U ARFX #### [address] [id number] Hemoglobin Ql (U) Negative Normal NEGATIVE [facility] Comment on above: Performed By: #### U ARFX #### [address] [place] [id number] Ketones Ql (U) Negative Normal NEGATIVE [facility] Comment on above: Performed By: #### U ARFX #### [address] [id number] Leukocyte esterase Test strip Ql (U) Negative Normal NEGATIVE [facility] Comment on above: Performed By: #### U ARFX #### [address] [id number] Nitrite Ql (U) Negative Normal NEGATIVE [facility] Comment on above: Performed By: #### U ARFX #### [address] [id number] pH (U) 6.0 [pH] Normal 5.0 - 8.0 [facility] Comment on above: Performed By: #### U ARFX #### [address] [id number] Protein Ql (U) Negative Normal NEGATIVE [facility] Comment on above: Performed By: #### U ARFX #### [address] [id number] Specific gravity (U) [Rel density] 1.010 Normal 1.005 - 1.035 [facility] Comment on above: Performed By: #### U ARFX #### [address] [id number] Urobilinogen (U) [Mass/Vol] mg/dL Normal 0.0 - 1.9 [facility] Comment on above: Performed By: #### U ARFX #### [address] [id number] Color (U) YELLOW See Below -[facility] Work Phone: Comment on above: Reference Range: STR AW,YELLOW Glucose Ql (U) Negative NEGATIVE [facility] Work Phone: Ketones Ql (U) Negative NEGATIVE [facility] Work Phone: Leukocyte esterase Test strip Ql (U) Negative NEGATIVE -[facility] [employer] Phone: pH (U) 6.0 [pH] 5.0 - 8.0 -[facility] [employer] Phone: Protein (U) [Mass/Vol] Negative NEGATIVE -[place] [facility] [employer] Work Phone: [phone] RBC (U) [#/Vol] Negative NEGATIVE -[place] [facility] [employer] Work Phone: Specific gravity (U) [Rel density] 1.010 1 See Below -[facility] [employer] Phone: Comment on above: Reference Range: 1.0 05 - 1.035 URINALYSIS WITH CULTURE IF INDICATED Negative NEGATIVE -[place] [facility] [employer] Phone: URINALYSIS WITH CULTURE IF INDICATED <2.0 0.0 - 1.9 -[place] [facility] [employer] Work Phone: URINALYSIS WITH CULTURE IF INDICATED CLEAR CLEAR -[place] [facility] [employer] Phone: Established Visit (Orthopaed ic Surgery)on 09-19-2022 Established Visit (Orthopaedic Surgery) Orders Back pain, Other intervertebral disc degeneration, lumbar region [place] [facility]; Status:Need Information - Financial Authorization; Requested for:[id number]; Osteogenesic Stimulator; Status:Active; Requested for:[id number]; Provider Impressions Assessment: At this time, I [...] plates and the interbody cage is a Hampton cage. He currently has stenosis at L2-L3 [...] thoracic and lumbar xrays and MRI in [place]. brought a disc. History of Present IllnessErik [...] to the pain management center down in [place]. Review of Systems Review of systems, past [...] XR Lumbar spine AP and Lateral Normal [facility] [facility] Work Phone: SPINE, LUMBOSACRAL 2 OR 3 EWSon 08-23-2022 SPINE, LUMBOSACRAL 2 OR 3 VIEWS Patient Name: ERIK MORALES STUDY: SPINE, LUMBOSACRAL; 2 OR 3 VIEWS; ; 08/23/2022 1:37 pm INDICATION: pain M51.36: Other intervertebral disc degeneration, lumbar region M54.9: Back pain. ACCESSION NUMBER(S): [id number] ORDERING CLINICIAN: CURTIS MELÉNDEZ FINDINGS: Flexion-extension x-rays [...] Electronically signed by: CURTIS MELÉNDEZ MD Normal [facility] US aortaon 08-16-2022 aorta [facility] [place] [address] Ultrasound Report Signed Patient: Erik Morales MR#: [id number] : 1955 Acct:[id number] Age/Sex: 66 / M ADM Date: 08/15/22 Loc: [facility] Room: Type: [facility] Attending Dr: Bianka Garcia [employer]CTION[employer]Y SUPERVISOR-C Ordering Provider: Bianka Garcia APRN Date of [...] Christopher Thao M.D.08/16/2022 10:23 AM Dictation Location: [facility] Tech: Blanquita Gianna Transcribed By: LUIS 08/16/22 1023 Dictated By: Christopher Thao MD 08/16/22 1022 Signed By: 08/16/22 1023 [facility] V[facility] Abdominal Aorta/Nancy ac/IVC Ultraon 07-31-2022 VASC LAB Abdominal Aorta/Iliac/IVC Ultra [address], [address] [place] [address] Vascular Lab Report Abdominal Aorta Iliac Ultrasound/IVC Ultrasound Patient Name: ERIK Mckoy Physician: [id number] Cecilio Go MD, [facility] Study Date: 07/31/2022 Referring CECILIO GO Physician: N/PID: [id number] PCP: Carmen Witt Accession/Order#: [id number] CC Report to: Date of : 1955 Technologist: Karol Hull RDCS Dali Gender: M Technologist 2: Admission Status: Outpatient Location Performed: [facility] Diagnosis/ICD: I71.43-Infrarenal abdominal aortic aneurysm, without rupture Indication: HTN, Hyperlipidemia, Obesity, Former Smoker, Dyspnea, Pulmonary Fibrosis Procedure/CPT: 68892 Duplex Aorta/IVC/Iliac/Bypass Graft-30324 CONCLUSIONS: Aorta/Common Iliac Arteries/IVC: Infrarenal fusiform abdominal [...] cm 83.0 cm/s RIGHT AP Lateral PSV KRAMA Proximal 1.09 cm 1.50 cm 100.00 cm/s LEFT AP Lateral PSV KARMA Proximal 0.71 cm 0.96 cm 0.96 cm/s [id number] Cceilio Go MD, FACC Final Normal [facility]ASC LAB Abdominal Aorta/Nancy ac/IVC Ultrasoundon 07-31-2022 VASC LAB Abdominal Aorta/Iliac/IVC Ultrasound [facility] [address] DO Work Phone: [...] IRAIS LORENZANA Date: 2022-07-02 13:50 Normal [facility] Office Visit (Cardiology)on 06-04-2022 Follow-up [...] Weight Tips; Status:Complete - Retrospective Authorization; Done: [id number] Some eating tips that can help you lose weight.; Status:Complete - Retrospective Authorization; Done: [id number] SocHx: Former smoker Tobacco Use Screening; Status:Complete; Done: 07Ali1750 Patient Instructions Please bring all medicines, vitamins, [...] rashes. Neurologic (more content not included)... Normal [facility] Tobacco Screening.on 023 Adult depression screening assessment No [facility] 250 DO Work Phone: Fall risk assessment a) No falls within the last year [facility] 250 DO Work Phone: Tobacco use status [facility] b) No [facility] 250 DO Work Phone: CREATININEon 02-18-2022 Creatinine [Mass/Vol] 1.23 mg/dL Normal 0.70-1.30 [facility] Comment on above: Performed By: #### E RUR #### [facility] [address] [address] [address] Arielle Biswas EGFR-AF MONTSERRATIAN >60 Normal >=60 [facility] Comment on above: Performed By: #### E RUR #### [facility] [address] [address] [address] Arielle Biswas EGFR-NON AF MONTSERRATIAN 59 mL/min/1.73m2 Critically low >=60 [facility] Comment on above: Performed By: #### E RUR #### [facility] [address] [place] [address] CHEST W CONon [...] BRITANY TSANG Date: 2022-02-18 15:28 Normal [facility] Office Visit (Cardiology)on 12-11-2021 Follow-up [...] Weight Tips; Status:Complete - Retrospective Authorization; Done: [id number] Some eating tips that can help you lose weight.; Status:Complete - Retrospective Authorization; Done: [id number] SocHx: Former smoker Tobacco Use Screening; Status:Complete; Done: [id number] Patient Instructions Please bring all medicines, vitamins, [...] pulmonary embolism. Recently follow-up CT scan at [facility] revealed resolution of the pulmonary emboli. Some other pathology was noted with densities requiring follow-up imaging in 3 to 6 months which has been arranged through his PCP. He is currently anticoagulated with Eliquis. The patient is contemplating further dental work in December which he should be able to hold anticoagulation prior to. Recent nuclear stress test at [facility] was reviewed and shared with the patient and was normal. He is also known to have normal ejection fraction. He currently has no complaint to report physical examination was only remarkable for 8 pounds weight gain from last visit. He is now in the obesity range recent medical record from [facility] were reviewed with the patient [...] palpitations, but (more content not included)... Normal [facility] Tobacco Screening.on 022 Fall risk assessment a) No falls within the last year [facility] [address] DO Work Phone: Tobacco use status [facility] b) No [facility] [address] DO Work Phone: Tobacco Screening. Yes -[facility] [address] DO Work Phone: [...] by: BRITANY TSANG Date: 2021-11-05 11:08 Normal [facility] NM STRESS/REST MULTIon 10-17 NM STRESS/REST MULTI Patient: ERIK MORALES Exam Date: 10/17/2021 : 1955 Gender:M Ordering : DR CARMEN WITT . Admission #: [id number] Family : Order #: [id number] CLICK HERE TO VIEW EXAM RADIOLOGY REPORT [...] M.D. on 10/17/2021 at 13:48 Normal [facility] T4, T3U, FTI LABCORPon 10-10 Free Thyroxine Index 2.1 Normal 1.2-4.9 [facility] Comment on above: Performed By: #### E RUR #### [facility] [address] [address] [address] Arielle Biswas T3 Uptake 28 % Normal 24-39 [facility] Comment on above: Performed By: #### E RUR #### [facility] [address] [place], [place] [address] Dr. Arielle Biswas T4 [Mass/Vol] 7.5 ug/dL Normal 4.5-12.0 [facility] Comment on above: Performed By: #### E RUR #### [facility] [address] [place], [place] [address] Dr. Arielle Biswas BNPon 10-09-2021 Natriuretic peptide B (Bld) [Mass/Vol] 319.0 pg/mL Normal <=900.0 [facility] Comment on above: Performed By: #### B CORRECTIONAL SUPPLY SUPERVISOR, TSH, CMP #### [facility] [address] [place] [address] Dr. Arielle Biswas CBC AUTO DIFFon 10-09-2021 BASO # 0.1 103/ul Normal 0.0-0.1 [facility] Comment on above: Performed By: #### C BC #### [facility] [address] [place] [address] Dr. Arielle Biswas Basophils/100 WBC (Bld) 1.3 % Normal 0.2-2.0 [facility] Comment on above: Performed By: #### C BC #### [facility] [address] [place] [address] Dr. Arielle Biswas EO # 0.2 103/ul Normal 0.0-0.7 [facility] Comment on above: Performed By: #### C BC #### [facility] [address] [place] [address] Dr. Arielle Biswas Eosinophils/100 WBC (Bld) 3.0 % Normal 0.9-7.0 [facility] Comment on above: Performed By: #### C BC #### [facility] [address] [place] [address] Dr. Arielle Biswas Erythrocyte distribution width (RBC) [Ratio] 13.5 % Normal 11.0-15.0 [facility] Comment on above: Performed By: #### C BC #### [facility] [address] [place] [address] Dr. Arielle Biswas Hematocrit (Bld) [Volume fraction] 41.8 % Critically low 42.0-54.0 [facility] Comment on above: Performed By: #### C BC #### [facility] [address] [place] [address] Dr. Arielle Biswas Hemoglobin (Bld) [Mass/Vol] 13.6 g/dL Critically low 14.0-18.0 [facility] Comment on above: Performed By: #### C BC #### [facility] [address] [place] [address] Dr. Arielle Biswas IG # 0.03 10e3/ul Normal 0.00-0.03 [facility] Comment on above: Performed By: #### C BC #### [facility] [address] [place] [address] Dr. Arielle Biswas IG % 0.4 % Normal 0.0-0.5 [facility] Comment on above: Performed By: #### C BC #### [facility] [address] [place] [address] Dr. Arielle Biswas LYMPH # 1.2 103/ul Normal 1.2-3.8 [facility] Comment on above: Performed By: #### C BC #### [facility] [address] [place] [address] Dr. Arielle Biswas Lymphocytes/100 WBC (Bld) 16.5 % Critically low 20.5-60.0 [facility] Comment on above: Performed By: #### C BC #### [facility] [address] [place] [address] Dr. Arielle Biswas MANUAL DIFF REQ NO Normal [facility] Comment on above: Performed By: #### C BC #### [facility] [address] [place] [address] Dr. Arielle Biswas MCH (RBC) [Entitic mass] 31.2 pg Normal 25.9-34.0 [facility] Comment on above: Performed By: #### C BC #### [facility] [address] [place] [address] Dr. Arielle Biswas MCHC (RBC) [Mass/Vol] 32.5 g/dL Normal 29.9-35.2 [facility] Comment on above: Performed By: #### C BC #### [facility] [address] [place] [address] Dr. Arielle Biswas MCV (RBC) [Entitic vol] 95.9 fL Critically high 80.0-94.0 [facility] Comment on above: Performed By: #### C BC #### [facility] [address] [place] [address] Dr. Arielle Biswas MONO # 0.8 103/ul Normal 0.3-0.8 [facility] Comment on above: Performed By: #### C BC #### [facility] [address] [address] [address] Arielle Biswas Monocytes/100 WBC (Bld) 11.5 % Normal 1.7-12.0 [facility] Comment on above: Performed By: #### C BC #### [facility] [address] [address] [address] Arielle Biswas NEUT # 4.7 103/ul Normal 1.4-6.5 [facility] Comment on above: Performed By: #### C BC #### [facility] [address] [place] [address] Dr. Arielle Biswas Neutrophils/100 WBC (Bld) 67.3 % Normal 43.0-75.0 [facility] Comment on above: Performed By: #### C BC #### [facility] [address] [place] [address] Dr. Arielle Biswas Platelet mean volume (Bld) [Entitic vol] 10.2 fL Normal 9.5-13.5 [facility] Comment on above: Performed By: #### C BC #### [facility] [address] [place] [address] Dr. Arielle Biswas PLT 243 103/ul Normal 150-450 [facility] Comment on above: Performed By: #### C BC #### [facility] [address] [place] [address] Dr. Arielle Biswas RBC 4.36 106/ul Critically low 4.70-6.10 [facility] Comment on above: Performed By: #### C BC #### [facility] [address] [place] [address] Dr. Arielle Biswas WBC 7.0 103/ul Normal 4.0-11.0 [facility] Comment on above: Performed By: #### C BC #### [facility] [address] [place] [address] Dr. Arielle Biswas D-DIMERon 10-09-2021 D-DIMER 0.30 mg/L FEU Normal <=0.59 [facility] Comment on above: Performed By: #### E RUR #### [facility] [address] [place] [address] Dr. Arielle Biswas D-DIMER COMMENTS SEE BELOW Normal [facility] Comment on above: Result Comment: Incr eases [...] hospitalization. Performed By: #### E RUR #### [facility] [address] [place] [address] Dr. Arielle Biswas PROF 14(COMP METB)on 022 Albumin [Mass/Vol] 3.0 g/dL Critically low 3.4-5.0 [facility] Comment on above: Performed By: #### B CORRECTIONAL SUPPLY SUPERVISOR, TSH, CMP #### [facility] [address] [place] [address] Dr. Arielle Biswas Albumin/Globulin [Mass ratio] 0.8 {ratio} Normal [facility] Comment on above: Performed By: #### B CORRECTIONAL SUPPLY SUPERVISOR, TSH, CMP #### [facility] [address] [place] [address] Dr. Arielle Biswas ALP [Catalytic activity/Vol] 120 U/L Critically high 46-116 [facility] Comment on above: Performed By: #### B CORRECTIONAL SUPPLY SUPERVISOR, TSH, CMP #### [facility] [address] [place] [address] Dr. Arielle Biswas ALT [Catalytic activity/Vol] 21 U/L Normal 16-63 [facility] Comment on above: Performed By: #### B CORRECTIONAL SUPPLY SUPERVISOR, TSH, CMP #### [facility] [address] [place] [address] Dr. Arielle Biswas Anion gap [Moles/Vol] 9.9 mmol/L Normal [facility] Comment on above: Performed By: #### B CORRECTIONAL SUPPLY SUPERVISOR, TSH, CMP #### [facility] [address] [address] [address] Arielle Biswas AST [Catalytic activity/Vol] 20 U/L Normal 15-37 [facility] Comment on above: Performed By: #### B CORRECTIONAL SUPPLY SUPERVISOR, TSH, CMP #### [facility] [address] [address] [address] Arielle Biswas Bilirubin [Mass/Vol] 0.6 mg/dL Normal 0.2-1.0 [facility] Comment on above: Performed By: #### B CORRECTIONAL SUPPLY SUPERVISOR, TSH, CMP #### [facility] [address] [address] [address] Arielle Biswas Calcium [Mass/Vol] 8.8 mg/dL Normal 8.5-10.1 [facility] Comment on above: Performed By: #### B CORRECTIONAL SUPPLY SUPERVISOR, TSH, CMP #### [facility] [address] [place] [address] Dr. Arielle Biswas Chloride [Moles/Vol] 103 mmol/L Normal 98-107 [facility] Comment on above: Performed By: #### B CORRECTIONAL SUPPLY SUPERVISOR, TSH, CMP #### [facility] [address] [address] [address] Arielle Biswas CO2 [Moles/Vol] 29.0 mmol/L Normal 21.0-32.0 [facility] Comment on above: Performed By: #### B CORRECTIONAL SUPPLY SUPERVISOR, TSH, CMP #### [facility] [address] [address] [address] Arielle Biswas Creatinine [Mass/Vol] 1.23 mg/dL Normal 0.70-1.30 [facility] Comment on above: Performed By: #### B CORRECTIONAL SUPPLY SUPERVISOR, TSH, CMP #### [facility] [address] [address] [address] Arielle Biswas EGFR-AF MONTSERRATIAN >60 Normal >=60 [facility] Comment on above: Performed By: #### B CORRECTIONAL SUPPLY SUPERVISOR, TSH, CMP #### [facility] [address] [place] [address] Dr. Arielle Biswas EGFR-NON AF MONTSERRATIAN 59 mL/min/1.73m2 Critically low >=60 [facility] Comment on above: Performed By: #### B CORRECTIONAL SUPPLY SUPERVISOR, TSH, CMP #### [facility] [address] [place] [address] Dr. Arielle Biswas Globulin (S) [Mass/Vol] 3.7 g/dL Normal [facility] Comment on above: Performed By: #### B CORRECTIONAL SUPPLY SUPERVISOR, TSH, CMP #### [facility] [address] [place] [address] Dr. Arielle Biswas Glucose [Mass/Vol] 95 mg/dL Normal 74-106 [facility] Comment on above: Performed By: #### B CORRECTIONAL SUPPLY SUPERVISOR, TSH, CMP #### [facility] [address] [place] [address] Dr. Arielle Biswas Potassium [Moles/Vol] 3.9 mmol/L Normal 3.5-5.1 [facility] Comment on above: Performed By: #### B CORRECTIONAL SUPPLY SUPERVISOR, TSH, CMP #### [facility] [address] [place] [address] Dr. Arielle Biswas Protein [Mass/Vol] 6.7 g/dL Normal 6.4-8.2 [facility] Comment on above: Performed By: #### B CORRECTIONAL SUPPLY SUPERVISOR, TSH, CMP #### [facility] [address] [place] [address] Dr. Arielle Biswas Sodium [Moles/Vol] 138 mmol/L Normal 136-145 [facility] Comment on above: Performed By: #### B CORRECTIONAL SUPPLY SUPERVISOR, TSH, CMP #### [facility] [address] [place] [address] Dr. Arielle Biswas Urea nitrogen [Mass/Vol] 13.0 mg/dL Normal 7.0-18.0 [facility] Comment on above: Performed By: #### B CORRECTIONAL SUPPLY SUPERVISOR, TSH, CMP #### [facility] [address] [place] [address] Dr. Arielle Biswas Urea nitrogen/Creatinine [Mass ratio] 10.6 mg/mg Normal [facility] Comment on above: Performed By: #### B CORRECTIONAL SUPPLY SUPERVISOR, TSH, CMP #### [facility] [address] [place] [address] Dr. Arielle Biswas TSHon 10-09-2021 TSH 0.393 uIU/mL Normal 0.358-3.740 [facility] Comment on above: Performed By: #### B CORRECTIONAL SUPPLY SUPERVISOR, TSH, CMP #### [facility] [address] [place] [address] Dr. Arielle Biswas Tobacco Screening.on 022 Adult depression screening assessment No [facility] [place] [address] DO Work Phone: Fall risk assessment a) No falls within the last year [facility] [place] [address] DO Work Phone: Tobacco use status [facility] b) No [facility] [place] [address] DO Work Phone: CARDIAC DAVON 3-6on 2 CK [Catalytic activity/Vol] 80 U/L Normal 39-308 [facility] Comment on above: Performed By: #### E RUR #### [facility] [address] [place] [address] Dr. Arielle Biswas CK.MB [Mass/Vol] 2.19 ng/mL Normal <=3.60 [facility] Comment on above: Performed By: #### E RUR #### [facility] [address] [place] [address] Dr. Arielle Biswas HSTROP 152.1 pg/mL Critically high 4.0-76.1 [facility] Comment on above: Result Comment: CUT- OFF POINTS HAVE BEEN ESTABLISHED BASED ON THE FOURTH UNIVERSAL DEFINITIONS OF MYOCARDIAL INFARCTION. THE UPPER REFERENCE LIMIT (URL) OF TROPONIN, DEFINED THE 99TH PERCENTILE OF cTnI DISTRIBUTION IN A REFERENCE POPULATION, HAS BEEN CONFIRMED THE DECISION THRESHOLD FOR WI DIAGNOSIS. repeated Performed By: #### E RUR #### [facility] [address] [place] [address] Dr. Arielle Biswas CARDIAC DAVON ADMITon 022 CK [Catalytic activity/Vol] 32 U/L Critically low 39-308 [facility] Comment on above: Performed By: #### B MP, CMADM #### [facility] [address] [place] [address] Dr. Arielle Biswas CK.MB [Mass/Vol] 2.01 ng/mL Normal <=3.60 [facility] Comment on above: Performed By: #### B AMANDA ESTES #### [facility] [address] [place] [address] Dr. Arielle Biswas HSTROP 144.5 pg/mL Critically high 4.0-76.1 [facility] Comment on above: Result Comment: CUT- OFF POINTS HAVE BEEN ESTABLISHED BASED ON THE FOURTH UNIVERSAL DEFINITIONS OF MYOCARDIAL INFARCTION. THE UPPER REFERENCE LIMIT (URL) OF TROPONIN, DEFINED THE 99TH PERCENTILE OF cTnI DISTRIBUTION IN A REFERENCE POPULATION, HAS BEEN CONFIRMED THE DECISION THRESHOLD FOR [place] DIAGNOSIS. repeated Performed By: #### B AMANDA ESTES #### [facility] [address] [place] [address] Dr. Arielle Biswas PJ 39 ng/mL Normal 16-96 [facility] Comment on above: Performed By: #### B AMANDA ESTES #### [facility] [address] [place] [address] Dr. Arielle Biswas CBC AUTO DIFFon 07-14-2021 BASO # 0.1 103/ul Normal 0.0-0.1 [facility] Comment on above: Performed By: #### E RUR #### [facility] [address] [place] [address] Dr. Arielle Biswas Basophils/100 WBC (Bld) 0.5 % Normal 0.2-2.0 [facility] Comment on above: Performed By: #### E RUR #### [facility] [address] [place] [address] Dr. Arielle Biswas EO # 0.1 103/ul Normal 0.0-0.7 [facility] Comment on above: Performed By: #### E RUR #### [facility] [address] [place] [address] Dr. Arielle Biswas Eosinophils/100 WBC (Bld) 0.6 % Critically low 0.9-7.0 [facility] Comment on above: Performed By: #### E RUR #### [facility] [address] [place] [address] Dr. Arielle Biswas Erythrocyte distribution width (RBC) [Ratio] 14.6 % Normal 11.0-15.0 [facility] Comment on above: Performed By: #### E RUR #### [facility] [address] [place] [address] Dr. Arielle Biswas Hematocrit (Bld) [Volume fraction] 45.5 % Normal 42.0-54.0 [facility] Comment on above: Performed By: #### E RUR #### [facility] [address] [place] [address] Dr. Arielle Biswas Hemoglobin (Bld) [Mass/Vol] 14.5 g/dL Normal 14.0-18.0 [facility] Comment on above: Performed By: #### E RUR #### [facility] [address] [place] [address] Dr. Arielle Biswas IG # 0.13 10e3/ul Critically high 0.00-0.03 [facility] Comment on above: Performed By: #### E RUR #### [facility] [address] [place] [address] Dr. Arielle Biswas IG % 0.8 % Critically high 0.0-0.5 [facility] Comment on above: Performed By: #### E RUR #### [facility] [address] [place] [address] Dr. Arielle Biswas LYMPH # 1.4 103/ul Normal 1.2-3.8 [facility] Comment on above: Performed By: #### E RUR #### [facility] [address] [place] [address] Dr. Arielle Biswas Lymphocytes/100 WBC (Bld) 8.7 % Critically low 20.5-60.0 [facility] Comment on above: Performed By: #### E RUR #### [facility] [address] [place] [address] Dr. Arielle Biswas MANUAL DIFF REQ NO Normal [facility] Comment on above: Performed By: #### E RUR #### [facility] [address] [place] [address] Dr. Arielle Biswas MCH (RBC) [Entitic mass] 30.5 pg Normal 25.9-34.0 [facility] Comment on above: Performed By: #### E RUR #### [facility] [address] [place] [address] Dr. Arielle Biswas MCHC (RBC) [Mass/Vol] 31.9 g/dL Normal 29.9-35.2 [facility] Comment on above: Performed By: #### E RUR #### [facility] [address] [place] [address] Dr. Arielle Biswas MCV (RBC) [Entitic vol] 95.6 fL Critically high 80.0-94.0 [facility] Comment on above: Performed By: #### E RUR #### [facility] [address] [place] [address] Dr. Arielle Biswas MONO # 1.1 103/ul Critically high 0.3-0.8 [facility] Comment on above: Performed By: #### E RUR #### [facility] [address] [place] [address] Dr. Arielle Biswas Monocytes/100 WBC (Bld) 7.1 % Normal 1.7-12.0 [facility] Comment on above: Performed By: #### E RUR #### [facility] [address] [place] [address] Dr. Arielle Biswas NEUT # 12.9 103/ul Critically high 1.4-6.5 [facility] Comment on above: Performed By: #### E RUR #### [facility] [address] [place] [address] Dr. Arielle Biswas Neutrophils/100 WBC (Bld) 82.3 % Critically high 43.0-75.0 [facility] Comment on above: Performed By: #### E RUR #### [facility] [address] [place] [address] Dr. Arielle Biswas Platelet mean volume (Bld) [Entitic vol] 9.7 fL Normal 9.5-13.5 [facility] Comment on above: Performed By: #### E RUR #### [facility] [address] [address] [address] Arielle Biswas PLT 206 103/ul Normal 150-450 [facility] Comment on above: Performed By: #### E RUR #### [facility] [address] [address] [address] Arielle Biswas RBC 4.76 106/ul Normal 4.70-6.10 [facility] Comment on above: Performed By: #### E RUR #### [facility] [address] [id number] Arielle Biswas WBC 15.6 103/ul Critically high 4.0-11.0 [facility] Comment on above: Performed By: #### E RUR #### [facility] [address] [place] [address] Dr. Arielle Biswas CTA CHEST WO W [...] H (more content not included)... Normal [facility] Covid-19 PCR ([facility])on 06-25 SARS-CoV-2 (COVID-19) RNA ELKIN+probe Ql (Unsp spec) Not detected Normal NOT DETECTED [facility] Comment on above: Result Comment: When diagnostic testing is negative, the possibility of a false negative should be considered in the context of a patient's recent exposures and the presence of clinical signs and symptoms consistent with SARS-CoV-2. This test is not yet approved or cleared by the [place] Food and Drug Administration (FDA). This test was developed by [employer], [place], [place]. The performance characteristics of this test were validated by [facility]. The results are not intended to be used as the sole means for clinical diagnosis or patient management decisions. [facility] is authorized under Clinical Laboratory [...] for this test is supported by the [place] of Health and Human Service's declaration that [...] used). Performed By: #### E RUR #### [facility] [address] [place] [address] Dr. Arielle Biswas ER URINE PROFILEon 2 Bilirubin Ql (U) Negative Normal NEGATIVE [facility] Comment on above: Performed By: #### E RUR #### [facility] [address] [place] [address] Dr. Arielle Biswas Clarity (U) CLEAR Normal CLEAR [facility] Comment on above: Performed By: #### E RUR #### [facility] [address] [place] [address] Dr. Arielle Biswas Color (U) LT. YELLOW Normal YELLOW [facility] Comment on above: Performed By: #### E RUR #### [facility] [address] [place] [address] Dr. Arielle Biswas ERUAHD A micrscopic examina tion will be performed if indicated. Normal [facility] Comment on above: Performed By: #### E RUR #### [facility] [address] [place] [address] Dr. Arielle Biswas Glucose Ql (U) Negative Normal NEGATIVE [facility] Comment on above: Performed By: #### E RUR #### [facility] [address] [place] [address] Dr. Arielle Biswas Hemoglobin Ql (U) Negative Normal NEGATIVE [facility] Comment on above: Performed By: #### E RUR #### [facility] [address] [place] [address] Dr. Arielle Biswas Ketones Ql (U) Negative Normal NEGATIVE [facility] Comment on above: Performed By: #### E RUR #### [facility] [address] [place] [address] Dr. Arielle Biswas LEUKOCYTES Negative Normal NEGATIVE [facility] Comment on above: Performed By: #### E RUR #### [facility] [address] [place] [address] Dr. Arielle Biswas Nitrite Ql (U) Negative Normal NEGATIVE [facility] Comment on above: Performed By: #### E RUR #### [facility] [address] [place] [address] Dr. Arielle Biswas pH (U) 6.0 [pH] Normal 5-9 [facility] Comment on above: Performed By: #### E RUR #### [facility] [address] [place] [address] Dr. Arielle Biswas SPEC GRAVITY 1.005 Normal 1.005-<=1.0 25 [facility] Comment on above: Performed By: #### E RUR #### [facility] [address] [place] [address] Dr. Arielle Biswas UA PROTEIN Negative Normal NEGATIVE/ TRACE [facility] Comment on above: Performed By: #### E RUR #### [facility] [address] [place] [address] Dr. Arielle Biswas UR MICRO IND NOT INDICATED Normal [facility] Comment on above: Performed By: #### E RUR #### [facility] [address] [place] [address] Dr. Arielle Biswas Urobilinogen Qn (U) 0.2 {Fernando'U}/dL Normal 0.2 - 1. 0 [facility] Comment on above: Performed By: #### E RUR #### [facility] [address] [place] [address] Dr. Arielle Biswas LACTATE/LACTIC ACIDon 2021 Lactate [Moles/Vol] 3.0 mmol/L Critically high 0.4-1.9 [facility] Comment on above: Result Comment: repe ated Performed By: #### E RUR #### [facility] [address] [address] [address] Arielle Biswas PROF CHEM 8 (BAS METB)on Anion gap [Moles/Vol] 14.0 mmol/L Normal [facility] Comment on above: Performed By: #### B FRANKLYN, CMADM #### [facility] [address] [place] [address] Dr. Arielle Biswas Calcium [Mass/Vol] 8.9 mg/dL Normal 8.5-10.1 [facility] Comment on above: Performed By: #### B FRANKLYN, CMADM #### [facility] [address] [address] [address] Arielle Biswas Chloride [Moles/Vol] 96 mmol/L Critically low 98-107 [facility] Comment on above: Performed By: #### B FRANKLYN, CMADM #### [facility] [address] [place] [address] Dr. Arielle Biswas CO2 [Moles/Vol] 26.5 mmol/L Normal 21.0-32.0 [facility] Comment on above: Performed By: #### B FRANKLYN, CMADM #### [facility] [address] [address] [address] Arielle Biswas Creatinine [Mass/Vol] 1.43 mg/dL Critically high 0.70-1.30 [facility] Comment on above: Performed By: #### B FRANKLYN, CMADM #### [facility] [address] [address] [address] Arielle Biswas EGFR-AF MONTSERRATIAN 60 mL/min/1.73m2 Normal >=60 [facility] Comment on above: Performed By: #### B FRANKLYN, CMADM #### [facility] [address] [address] [address] Arielle Biswas EGFR-NON AF MONTSERRATIAN 50 mL/min/1.73m2 Critically low >=60 [facility] Comment on above: Performed By: #### B FRANKLYN, CMADM #### [facility] [address] [address] [address] Arielle Biswas Glucose [Mass/Vol] 122 mg/dL Critically high 74-106 [facility] Comment on above: Performed By: #### B FRANKLYN, CMADM #### [facility] [address] [place] [address] Dr. Arielle Biswas Potassium [Moles/Vol] 3.5 mmol/L Normal 3.5-5.1 [facility] Comment on above: Performed By: #### B FRANKLYN, CMADM #### [facility] [address] [place] [address] Dr. Arielle Biswas Sodium [Moles/Vol] 133 mmol/L Critically low 136-145 [facility] Comment on above: Performed By: #### B FRANKLYN, CMADM #### [facility] [address] [place] [address] Dr. Arielle Biswas Urea nitrogen [Mass/Vol] 12.0 mg/dL Normal 7.0-18.0 [facility] Comment on above: Performed By: #### B FRANKLYN, CMADM #### [facility] [address] [place] [address] Dr. Arielle Biswas Urea nitrogen/Creatinine [Mass ratio] 8.4 mg/mg Normal [facility] Comment on above: Performed By: #### B FRANKLYN, CMADM #### [facility] [address] [place] [address] Dr. Arielle Biswas PROTIMEon 07-14-2021 INR Coag (PPP) [Relative time] 0.99 {INR} Normal [facility] Comment on above: Performed By: #### P TT, PT #### [facility] [address] [place] [address] Dr. Arielle Biswas INR GUIDELINES SEE BELOW Normal [facility] Comment on above: Result Comment: YANG RED INR: 2.0 - 3.0 CONDITIONS NOT LISTED BELOW 2.5 - 3.5 FOR PROSTHETIC HEART VALVE REPLACEMENT 2.5 - 3.5 RECURRENT THROMBOSIS Performed By: #### P TT, PT #### [facility] [address] [place] [address] Dr. Arielle Biswas PT Coag (PPP) [Time] 10.7 s Normal 9.0-11.6 [facility] Comment on above: Performed By: #### P TT, PT #### [facility] [address] [place], [place] [address] Dr. Arielle Biswas PTTon 07-14-2021 aPTT Coag (Bld) [Time] 26.6 s Normal 22.3-36.2 [facility] Comment on above: Performed By: #### P TT, PT #### [facility] [address] [place], [place] [address] Dr. Arielle Biswas Tobacco Screening.on 022 Fall risk assessment a) No falls within the last year [facility] [facility] DO Work Phone: Tobacco use status CPHS b) No [facility] [place] [facility] DO Work Phone: [phone] Tobacco Screening. Yes [facility] 250 DO Work Phone: [phone] Tobacco Screening.on 021 Fall risk assessment a) No falls within the last year [facility] 250 DO Work Phone: [phone] Tobacco use status CPHS b) No [facility] 250 DO Work Phone: [phone] Tobacco Screening.on 021 Fall risk assessment a) No falls within the last year [facility] 250 DO Work Phone: [phone] Tobacco use status CPHS b) No [facility] 250 DO Work Phone: [phone] Vital Signs Date Time Vital Sign Value Performing Clinician Facility 12-23-2022 10:50-0400 Blood Pressure Location Marino SPEAR [facility] 12-23-2022 10:50-0400 Diastolic blood pressure 62 mm[Hg] Marino SPEAR [facility] 12-23-2022 10:50-0400 Heart rate 69 /min Marino SPEAR [facility] 12-23-2022 10:50-0400 Respiratory rate 16 /min Marino SPEAR [facility] 12-23-2022 10:50-0400 Systolic blood pressure 95 mm[Hg] Marino SPEAR [facility] 11-07-2022 10:56-0400 Body temperature 98.6 [degF] Carmen Hoy Other Phone: [facility] 11-07-2022 10:56-0400 Diastolic blood pressure 69 mm[Hg] Carmen Hoy Other Phone: [facility] 11-07-2022 10:56-0400 Heart rate 97 /min Carmen Hoy Other Phone: [facility] 11-07-2022 10:56-0400 Respiratory rate 16 /min Carmen Hoy Other Phone: [facility] 11-07-2022 10:56-0400 SaO2% (BldA) [Mass fraction] 96 % Carmen Hoy Other Phone: [facility] 11-07-2022 10:56-0400 Systolic blood pressure 113 mm[Hg] Carmen Hoy Other Phone: [facility] 10-30-2022 10:00-0400 Body height 175.26 cm Danna Violeta Other [employer] [facility] [employer] Other 10-30-2022 10:00-0400 Body mass index (BMI) [Ratio] 30.27 kg/m2 Danna Violeta Other [employer] Other 10-30-2022 10:00-0400 Body temperature 97 [degF] Danna Violeta Other [employer] Other 10-30-2022 10:00-0400 Body weight 92.99 kg Danna Violeta Other [employer] Other 10-30-2022 10:00-0400 Diastolic blood pressure 75 mm[Hg] Danna Violeta Other [employer] Other 10-30-2022 10:00-0400 Respiratory rate 20 /min Danna Violeta Other [employer] Other 10-30-2022 10:00-0400 SaO2% (BldA) [Mass fraction] 96 % Danna Violeta Other [employer] Other 10-30-2022 10:00-0400 Systolic blood pressure 116 mm[Hg] Danna Violeta Other [employer] Other 08-23-2022 12:57-0400 Body height 175.26 cm Mark Forgedy Work Phone: [facility] [place] Work Phone: 08-23-2022 12:57-0400 Body mass index (BMI) [Ratio] 30.57 kg/m2 Carmen [employer] [place] Work Phone: [facility] [place] Work Phone: 08-23-2022 12:57-0400 Body surface area Derived from formula 2.1 m2 Carmen [employer] [place] Work Phone: [facility] [place] Work Phone: 08-23-2022 12:57-0400 Body weight 93.9 kg Carmen M Hoy Work Phone: [facility] [place] Work Phone: 08-20-2022 11:30-0400 Body height 175.26 cm Danna Violeta Other [employer] Other 08-20-2022 11:30-0400 Body mass index (BMI) [Ratio] 30.42 kg/m2 Danna Violeta Other [employer] Other 08-20-2022 11:30-0400 Body temperature 96.8 [degF] Danna Violeta Other [employer] Other 08-20-2022 11:30-0400 Body weight 93.44 kg Danna Violeta Other [employer] Other 08-20-2022 11:30-0400 Diastolic blood pressure 80 mm[Hg] Danna Violeta Other [employer] Other 08-20-2022 11:30-0400 Respiratory rate 20 /min Danna Violeta Other [employer] Other 08-20-2022 11:30-0400 SaO2% (BldA) [Mass fraction] 97 % Danna Violeta Other [employer] Other 08-20-2022 11:30-0400 Systolic blood pressure 142 mm[Hg] Danna Violeta Other [employer] Other 08-15-2022 09:30-0400 Body height 175.26 cm Bianka Garcia Other [employer] Other 08-15-2022 09:30-0400 Body mass index (BMI) [Ratio] 30.57 kg/m2 Bianka Garcia Other [employer] Other 08-15-2022 09:30-0400 Body temperature 96.7 [degF] Bianka Garcia Other [facility] [employer] Other 08-15-2022 09:30-0400 Body weight 93.9 kg Bianka Garcia Other [employer] Other 08-15-2022 09:30-0400 Diastolic blood pressure 70 mm[Hg] Bianka Garcia Other [employer] Other 08-15-2022 09:30-0400 SaO2% (BldA) [Mass fraction] 98 % Bianka Garcia Other [employer] Other 08-15-2022 09:30-0400 Systolic blood pressure 118 mm[Hg] Bianka Garcia Other [employer] Other 06-04-2022 11:33-0400 Body height 175.26 cm Carmen [employer] Work Phone: [facility] 250 DO Work Phone: 06-04-2022 11:33-0400 Body mass index (BMI) [Ratio] 30.13 kg/m2 [employer] Work Phone: [facility] 250 DO Work Phone: 06-04-2022 11:33-0400 Body surface area Derived from formula 2.08 m2 [employer] Work Phone: [facility] 250 DO Work Phone: 06-04-2022 11:33-0400 Body weight 92.53 kg Carmen M Hoy Work Phone: [facility] 250 DO Work Phone: 06-04-2022 11:33-0400 Diastolic blood pressure 72 mm[Hg] Carmen M Hoy Work Phone: [facility] 250 DO Work Phone: 06-04-2022 11:33-0400 Heart rate 68 /min Carmen Witt Work Phone: [facility] 250 DO Work Phone: 06-04-2022 11:33-0400 Systolic blood pressure 110 mm[Hg] Carmen Witt Work Phone: [facility] 250 DO Work Phone: 02-05-2022 15:30-0500 Body height 175.26 cm Danna Violeta Other [employer] Other 02-05-2022 15:30-0500 Body mass index (BMI) [Ratio] 29.97 kg/m2 Danna Violeta Other [employer] Other 02-05-2022 15:30-0500 Body temperature 98.4 [degF] Danna Violeta Other [employer] Other 02-05-2022 15:30-0500 Body weight 92.08 kg Danna Violeta Other [employer] Other 02-05-2022 15:30-0500 Diastolic blood pressure 83 mm[Hg] Danna Violeta Other [employer] Other 02-05-2022 15:30-0500 Respiratory rate 20 /min Danna Violeta Other [employer] Other 02-05-2022 15:30-0500 SaO2% (BldA) [Mass fraction] 96 % Danna Violeta Other [employer] Other 02-05-2022 15:30-0500 Systolic blood pressure 143 mm[Hg] Danna Violeta Other [employer] Other 12-11-2021 11:39-0400 Body height 175.26 cm Jean Saeed Naderer Work Phone: [facility] 250 DO Work Phone: 12-11-2021 11:39-0400 Body mass index (BMI) [Ratio] 30.72 kg/m2 Jean Saeed Naderer Work Phone: [facility] 250 DO Work Phone: 12-11-2021 11:39-0400 Body surface area Derived from formula 2.1 m2 Jean Saeed Naderer Work Phone: [facility] 250 DO Work Phone: 12-11-2021 11:39-0400 Body weight 94.35 kg Jean Saeed Naderer Work Phone: [facility] 250 DO Work Phone: 12-11-2021 11:39-0400 Diastolic blood pressure 72 mm[Hg] Jean Christophe Naderer Work Phone: [facility] 250 DO Work Phone: 12-11-2021 11:39-0400 Heart rate 72 /min Jean Saeed Naderer Work Phone: [facility] 250 DO Work Phone: 12-11-2021 11:39-0400 Systolic blood pressure 124 mm[Hg] Jean A Naderer Work Phone: [facility] 250 DO Work Phone: 08-21-2021 15:00-0400 Body height 175.26 cm Danna Mcdnaiel Other [employer] Other 08-21-2021 15:00-0400 Body mass index (BMI) [Ratio] 28.35 kg/m2 Danna Violeta Other [employer] Other 08-21-2021 15:00-0400 Body temperature 97.5 [degF] Danna Violeta Other [employer] Other 08-21-2021 15:00-0400 Body weight 87.09 kg Danna Violeta Other [employer] Other 08-21-2021 15:00-0400 Diastolic blood pressure 70 mm[Hg] Danna Violeta Other [employer] Other 08-21-2021 15:00-0400 Respiratory rate 20 /min Danna Violeta Other [employer] Other 08-21-2021 15:00-0400 SaO2% (BldA) [Mass fraction] 94 % Danna Violeta Other [employer] Other 08-21-2021 15:00-0400 Systolic blood pressure 110 mm[Hg] Danna Violeta Other [employer] Other 08-15-2021 11:30-0400 Body height 175.26 cm Julian Matthews Other [employer] Other 08-15-2021 11:30-0400 Body mass index (BMI) [Ratio] 28.06 kg/m2 Julian Matthews Other [employer] Other 08-15-2021 11:30-0400 Body temperature 97.5 [degF] Julian Matthews Other [employer] Other 08-15-2021 11:30-0400 Body weight 86.18 kg Julian Matthews Other [employer] Other 08-15-2021 11:30-0400 Diastolic blood pressure 68 mm[Hg] Julian Matthews Other [employer] Other 08-15-2021 11:30-0400 SaO2% (BldA) [Mass fraction] 98 % Julian Matthews Other [employer] Other 08-15-2021 11:30-0400 Systolic blood pressure 102 mm[Hg] Julian Matthews Other [employer] Other 08-02-2021 08:32-0400 Body height 175.26 cm Jean Saeed Naderer Work Phone: [employer] 250 DO Work Phone: 08-02-2021 08:32-0400 Body mass index (BMI) [Ratio] 28.8 kg/m2 Jean Saeed Naderer Work Phone: [employer] 250 DO Work Phone: 08-02-2021 08:32-0400 Body surface area Derived from formula 2.04 m2 Jean Saeed Naderer Work Phone: [employer] [place] 250 DO Work Phone: 08-02-2021 08:32-0400 Body weight 88.45 kg Jean A Naderer Work Phone: [employer] [place] 250 DO Work Phone: 08-02-2021 08:32-0400 Diastolic blood pressure 62 mm[Hg] Jean Saeed Naderer Work Phone: [facility] [facility] DO Work Phone: 08-02-2021 08:32-0400 Heart rate 68 /min Jean A Naderer Work Phone: [facility] 250 DO Work Phone: 08-02-2021 08:32-0400 Systolic blood pressure 108 mm[Hg] Jean A Naderer Work Phone: [facility] 250 DO Work Phone: 07-14-2021 00:00-0400 60 1 Jean A Naderer Work Phone: [facility] 250 DO Work Phone: Comment on above: [id number] 04-30-2021 13:22-0500 Body height 175.26 cm Jean A Naderer Work Phone: [facility] 250 DO Work Phone: 04-30-2021 13:22-0500 Body mass index (BMI) [Ratio] 29.45 kg/m2 Jean A Naderer Work Phone: [facility] 250 DO Work Phone: 04-30-2021 13:22-0500 Body surface area Derived from formula 2.06 m2 Jean A Naderer Work Phone: [facility] 250 DO Work Phone: 04-30-2021 13:22-0500 Body weight 90.45 kg Jean A Naderer Work Phone: [facility] 250 DO Work Phone: 04-30-2021 13:22-0500 Diastolic blood pressure 90 mm[Hg] Jean A Naderer Work Phone: [facility] 250 DO Work Phone: 04-30-2021 13:22-0500 Heart rate 69 /min Jean A Naderer Work Phone: [facility] 250 DO Work Phone: 04-30-2021 13:22-0500 Systolic blood pressure 134 mm[Hg] Jean Saeed Naderer Work Phone: [facility] [place] 250 DO Work Phone: 02-20-2021 14:06-0500 Body height 175.26 cm Jean Saeed Naderer Work Phone: [facility] 250 DO Work Phone: 02-20-2021 14:06-0500 Body mass index (BMI) [Ratio] 29.98 kg/m2 Jean Saeed Naderer Work Phone: [facility] [place] 250 DO Work Phone: 02-20-2021 14:06-0500 Body surface area Derived from formula 2.08 m2 Jean Saeed Naderer Work Phone: [facility] 250 DO Work Phone: 02-20-2021 14:06-0500 Body weight 92.08 kg Jean Saeed Naderer Work Phone: [facility] [place] 250 DO Work Phone: 02-20-2021 14:06-0500 Diastolic blood pressure 76 mm[Hg] Jean Christophe Naderer Work Phone: [facility] [place] 250 DO Work Phone: 02-20-2021 14:06-0500 Heart rate 80 /min Jean Christophe Naderer Work Phone: [facility] [place] 250 DO Work Phone: 02-20-2021 14:06-0500 Systolic blood pressure 110 mm[Hg] Jean Christophe Naderer Work Phone: [facility] [place] 250 DO Work Phone: 02-06-2021 16:10-0500 Diastolic blood pressure 84 mm[Hg] Jean Christophe Naderer Work Phone: [facility] 250 DO Work Phone: 02-06-2021 16:10-0500 Systolic blood pressure 130 mm[Hg] Jean A Naderer Work Phone: [facility] [place] 250 DO Work Phone: 02-06-2021 15:37-0500 Body height 175.26 cm Jean A Naderer Work Phone: [facility] 250 DO Work Phone: 02-06-2021 15:37-0500 Body mass index (BMI) [Ratio] 30.13 kg/m2 Jean A Naderer Work Phone: [facility] 250 DO Work Phone: 02-06-2021 15:37-0500 Body surface area Derived from formula 2.08 m2 Jean A Naderer Work Phone: [facility] 250 DO Work Phone: 02-06-2021 15:37-0500 Body weight 92.53 kg Jean A Naderer Work Phone: [facility] 250 DO Work Phone: 02-06-2021 15:37-0500 Diastolic blood pressure 90 mm[Hg] Jean A Naderer Work Phone: [facility] [place] 250 DO Work Phone: 02-06-2021 15:37-0500 Heart rate 125 /min Jean A Naderer Work Phone: [facility] [place] 250 DO Work Phone: 02-06-2021 15:37-0500 Systolic blood pressure 128 mm[Hg] Jean Nicholson Work Phone: [facility] [place] 250 DO Work Phone: 11-30-2020 11:30-0400 Body height 175.26 cm Danna Violeta Other [employer] Other 11-30-2020 11:30-0400 Body mass index (BMI) [Ratio] 29.68 kg/m2 Danna Violeta Other [employer] Other 11-30-2020 11:30-0400 Body weight 91.17 kg Danna Violeta Other [employer] Other 11-30-2020 11:30-0400 Diastolic blood pressure 83 mm[Hg] Danna Violeta Other [employer] Other 11-30-2020 11:30-0400 Respiratory rate 20 /min Danna Violeta Other [employer] Other 11-30-2020 11:30-0400 SaO2% (BldA) [Mass fraction] 98 % Danna Violeta Other [employer] Other 11-30-2020 11:30-0400 Systolic blood pressure 126 mm[Hg] Danna Violeta Other [employer] Other Encounters Encounter Date Encounter Type Care Provider Facility Start: 12-26-2023 ambulatory Marino Colmenares ty:CHRISTIANO Werner Start: 03-04-2023 End: 03-04-2023 ambulatory Danna Violeta Facility:[facility] Start: 03-04-2023 End: 03-04-2023 ambulatory MD Jean Nicholson Work Phone: [facility] Work Phone: Start: 03-04-2023 End: 03-04-2023 Patient encounter procedure MD Jean Nicholson Work Phone: [facility] Work Phone: Start: 02-28-2023 End: 03-01-2023 ambulatory [facility] Start: 02-28-2023 End: 02-28-2023 Office outpatient visit 15 minutes Curtis Meléndez MD Work Phone: [facility] Comment on above: Low back pain, unspe cified back pain laterality, unspecified chronicity, unspecified whether sciatica present (Primary Dx) Start: 12-23-2022 End: 12-24-2022 ambulatory Marino SPEAR Facility:[facility] [place] Start: 12-23-2022 End: 12-23-2022 Patient encounter procedure Marino SPEAR [facility] Start: 12-09-2022 End: 12-09-2022 ambulatory [facility] Start: 11-19-2022 Patient encounter procedure Carmen Witt Work Phone: [facility] Work Phone: Start: 11-19-[address] Curtis Meléndez Facility:[id number] Start: 11-04-2022 End: 11-07-2022 Evaluation and management of inpatient [facility] 610 [id number] Start: 10-30-2022 End: 10-30-2022 ambulatory Danna Violeta Other [employer] Other Start: 10-30-2022 Office outpatient vi sit 25 minutes Danna Violeta [facility] Start: 10-22-2022 Patient encounter procedure Carmen Witt Work Phone: [facility] Work Phone: Start: 10-22-[address] Curtis Meléndez Facility:[id number] Start: 10-22-2022 Encounter for other preprocedural examination Dr. Curtis Meléndez [facility] Start: 10-21-[address] Carmen Witt Facility:[id number] Start: 10-21-2022 Encounter for preprocedural cardiovascular examination Dr. Curtis Meléndez [facility] Start: 10-21-2022 Encounter for preprocedural laboratory examination Dr. Curtis Meléndez [facility] Start: 09-19-2022 Patient encounter procedure Carmen Witt Work Phone: [facility] Work Phone: Start: 09-19-[address] Carmen Witt Facility:[id number] Start: 08-23-2022 Chart Update Carmen Witt Work Phone: [facility] Work Phone: Start: 08-23-2022 Patient encounter procedure Carmen Witt Work Phone: [facility] Work Phone: Start: 08-23-[address] Carmen Witt Facility:[id number] Start: 08-20-2022 End: 08-20-2022 ambulatory Danna Violeta Other [employer] [facility] [employer] Other Start: 08-20-2022 Office outpatient vi sit 25 minutes Danna Violeta [facility] Start: 08-15-2022 End: 08-15-2022 Patient encounter procedure Bianka Garcia [facility] Start: 08-15-2022 End: 08-15-2022 ambulatory MD Jean Nicholson Work Phone: [facility] [employer] Other Start: 07-31-2022 Chart Update Carmen Witt Work Phone: [facility] 250 DO Work Phone: Start: 07-31-[address] Cecilio Go Facility:[id number] Start: 07-02-2022 End: 07-03-[address] IRAIS LORENZANA Facility:[facility]1 Start: 06-05-2022 AUDIT Carmen Witt Work Phone: [facility] Work Phone: Start: 06-04-2022 Patient encounter procedure Carmen Álvarez Millicent Work Phone: [facility] 250 DO Work Phone: Start: 06-04-[address] Carmen Witt Facility: Start: 05-09-2022 End: 05-10-2022 ambulatory LAUREN BAUMANN . Facility:[facility] Start: 04-19-2022 Rx Renewal Jean Nicholson Work Phone: [facility] 250 DO Work Phone: Start: 02-18-2022 End: 02-19-[address] BRITANY TSANG Facility:[facility] Start: 02-07-2022 End: 02-08-2022 ambulatory LAUREN BAUMANN . Facility:[facility] Start: 02-05-2022 End: 02-05-2022 ambulatory Danna Mcdaniel Other [facility] [employer] Other Start: 02-05-2022 Office outpatient vi sit 25 minutes Danna Mcdaniel [facility] Start: 12-20-2021 End: 12-21-[address] MARINO SPEAR . Facility:[facility] Start: 12-11-2021 Office outpatient vi sit 25 minutes Jean Nicholson Work Phone: [facility] 250 DO Work Phone: Start: 12-11-[address] Jean Nicholson Facility: Start: 11-27-2021 End: 11-28-[address] LORENA ANDERSON . Facility:[facility] Start: 11-27-2021 Rx Renewal Jean Nicholson Work Phone: [facility] [place] 250 DO Work Phone: Start: 11-05-2021 End: 11-06-[address] BRITANY TSANG Facility:[facility] Start: 10-17-2021 End: 10-18-[address] CARMEN WITT . Facility:[facility] Start: 10-12-2021 Rx Renewal Jean Nicholson Work Phone: [facility] 250 DO Work Phone: Start: 10-09-2021 End: 10-10-2021 ambulatory KATHERINE MARTINEZ Facility:[facility] Start: 08-30-2021 End: 08-31-2021 ambulatory LAUREN BAUMANN . Facility:[facility] Start: 08-21-2021 End: 08-21-2021 ambulatory Danna Violeta Other [employer] Other Start: 08-21-2021 Office outpatient vi sit 25 minutes Danna Violeta [facility] Start: 08-16-2021 End: 08-16-2021 ambulatory Bianka Garcia Other [employer] Other Start: 08-16-2021 Telephone encounter Bianka Lira [facility] Start: 08-15-2021 End: 08-15-2021 ambulatory Julian Matthews Other [employer] Other Start: 08-15-2021 Office outpatient vi sit 25 minutes Julian Matthews [facility] Start: 08-02-2021 Office outpatient vi sit 25 minutes Jean Nicholson Work Phone: [facility] 250 DO Work Phone: Start: 07-20-2021 End: 07-20-2021 ambulatory Bianka Garcia Other Net[employer] Other Start: 07-20-2021 Telephone encounter Bianka Ruttino [facility] Start: 07-14-2021 End: 07-14-2021 ambulatory CYNDI SIBLEY Facility: Start: 04-30-2021 Office outpatient vi sit 25 minutes Jean Saeed Nadiwonar Work Phone: [facility] 250 DO Work Phone: Start: 03-26-2021 Rx Renewal Jean A Naderer Work Phone: [facility] [place] 250 DO Work Phone: Start: 02-20-2021 Patient encounter procedure [facility] DO Work Phone: Start: 11-30-2020 Office outpatient vi sit 25 minutes Danna Violeta [facility] Procedures Date Procedure Procedure Detail Performing Clinician Start: 02-28-2023 XR LUMBAR SPINE 2-3 VIEWS CURTIS MELÉNDEZ Start: 11-04-2022 Lumbar spinal fusion Keaton SPEAR Start: 12-20-2021 PSA screening LAUREN Olmstead Comment on above: Performed By: #### P SAD #### [facility] [address] [place] [address] Dr. Arielle Biswas Start: 07-14-2021 Operation for [...] 65+ Years (3 - PPSV23 or PCV20) [facility] Start: 06-17-2023 End: 06-17-2023 Patient encounter procedure 06/17/2023 10:20 AM EDT Office Visit [facility] [address] [id number] Cecilio Go MD [address] [facility] [address], [address] [address] [facility] Start: 02-28-2023 End: 02-29-2024 XR Lumbar spine 2 or 3 Views [facility] Service Area Work Phone: Comment on above: Expected: 02/28/2023 , Expires: 02/29/2024 Start: 12-10-2022 FUV, Provider: Cecilio Go, Status: Pen, Time: 11:10 AM FUV, Provider: Cecilio Go, Status: Pen, Time: 11:10 AM -[place] [address] DO Work Phone: Start: 12-09-2022 FUV, Provider: Cecilio Go, Status: Pen, Time: 3:00 PM FUV, Provider: Cecilio Go, Status: Pen, Time: 3:00 PM [facility] Work Phone: Start: 12-09-2022 Patient encounter procedure [facility] [place] Start: 11-19-2022 Patient encounter procedure [facility] Start: 11-19-2022 POV, Provider: Curtis Meléndez, Status: Pen, Time: 1:30 PM POV, Provider: Curtis Meléndez, Status: Pen, Time: 1:30 PM [facility] [place] Work Phone: Start: 11-05-2022 End: 11-05-2023 [facility] Start: 11-04-2022 End: 11-05-2023 [facility] Comment on above: If oral and IV lucita cotics ordered, use oral first and only use IV if oral is ineffective or cannot take oral. Do NOT give oral and IV within one hour of each other unless specificaly ordered. If NO result from Se nokot. Do NOT use with Senokot. Start: 11-04-2022 [facility], Provider: Curtis Meléndez, Status: Pen, Time: 7:30 AM [facility], Provider: Curtis Meléndez, Status: Pen, Time: 7:30 AM [facility] [place] Work Phone: Start: 10-22-2022 [facility], Provider: Curtis Meléndez, Status: Pen, Time: 1:30 PM [facility], Provider: Curtis Meléndez, Status: Pen, Time: 1:30 PM [facility] [place] Work Phone: Start: 09-24-2022 FUV, Provider: Curtis Meléndez, Status: Pen, Time: 1:30 PM FUV, Provider: Curtis Meléndez, Status: Pen, Time: 1:30 PM [facility] [place] Work Phone: Start: 08-23-2022 NPV, Provider: Curtis Meléndez, Status: Pen, Time: 1:15 PM NPV, Provider: Curtis Meléndez, Status: Pen, Time: 1:15 PM [facility] 250 DO Work Phone: Start: 08-15-2022 US scan of aorta US aorta [facility] Start: 08-15-2022 US Thoracic and abdominal aorta [facility] Start: 08-08-2022 ambulatory Ambulatory Facility:H 1 Start: 07-31-2022 AOILIVC, Provider: FRANKIE LOYAI ULTRASOUND 01,[id number], Status: Pen, Time: 1:30 PM AOILIVC, Provider: FRANKIE HHVI ULTRASOUND 01,[id number], Status: Pen, Time: 1:30 PM [facility] Work Phone: Start: 06-04-2022 FUV, Provider: Cecilio Go, Status: Pen, Time: 11:30 AM FUV, Provider: Cecilio Go, Status: Pen, Time: 11:30 AM -[facility] 250 DO Work Phone: Start: 02-06-2022 FUV, Provider: Cecilio Go, Status: Pen, Time: 8:50 AM FUV, Provider: Cecilio Go, Status: Pen, Time: 8:50 AM -[facility] 250 DO Work Phone: Start: 12-11-2021 FUV, Provider: Cecilio Go, Status: Pen, Time: 11:20 AM FUV, Provider: Cecilio Go, Status: Pen, Time: 11:20 AM [facility] 250 DO Work Phone: Start: 04-30-2021 FUV, Provider: Cecilio Go, Status: Pen, Time: 1:20 PM FUV, Provider: Cecilio Go, Status: Pen, Time: 1:20 PM -[facility] 250 DO Work Phone: Start: 02-15-2021 COVID-19 Vaccine (4 - Moderna series) COVID-19 Vaccine (4 - Moderna series) [facility] Start: 10-18-2005 Zoster Vaccines (1 o f 2) Zoster Vaccines (1 of 2) [facility] Start: 10-18-1977 DTaP/Tdap/Td Vaccine s (1 - Tdap) DTaP/Tdap/Td Vaccines (1 - Tdap) [facility] Start: 10-18-1973 Diabetes mellitus screening Diabetes Screening [facility] Start: 10-18-1973 Hepatitis C screening Hepatitis C Sc lori [facility] Start: 1955 Lipid panel Lipid Panel [facility] Start: 1955 Medicare Annual Wellness Visit Medicare Annual Wellness Visit (AWV) [facility] Start: 1955 Screening for malign ant neoplasm of colon [facility] Immunizations Immunization Date Immunization Notes Care Provider Rhys estevez 11-06-2022 influenza, high dose seasonal, preservative-free Carmen Hoy Other Phone: [facility] 12-26-2021 Fluad Quadrivalent 0 .5 ML Intramuscular Prefilled Syringe Jean Harrisr Work Phone: [facility] 887 DO Work Phone: 12-26-2021 influenza, seasonal, injectable Curtis Meléndez MD Work Phone: [facility] Work Phone: 12-21-2020 Pfizer-BioNTPhotoFix [place] COVID-19 Vacc 30 MCG/0.3ML Intramuscular Suspension Jean Harrisr Work Phone: [facility] 12-21-2020 pneumococcal conjuga te vaccine, 13 valent Jean Nicholson Work Phone: [facility] 12-21-2020 zoster vaccine recombinant Jean Nicholson [facility] DO Work Phone: 12-21-2020 zoster vaccine, unspecified formulation Curtis Meléndez MD Work Phone: [facility] Work Phone: 12-10-2020 Fluad Quadrivalent 0 .5 ML Intramuscular Prefilled Syringe Jean Saeed Splasherer Work Phone: [place] [address] DO Work Phone: 12-10-2020 influenza, seasonal, injectable Curtis Meléndez MD Work Phone: [facility] Work Phone: 06-21-2020 COVID-19 Vaccine Moderna - Documentation Purposes Only Danna Violeta Other [facility] [employer] Other 05-09-2020 COVID-19 Vaccine Moderna - Documentation Purposes Only Danna Violeta Other [facility] [employer] Other 01-04-2020 influenza, injectabl e, quadrivalent, preservative free Jean A Naderer Work Phone: [place] [address] DO Work Phone: 01-04-2020 influenza, seasonal, injectable Curtis Meléndez MD Work Phone: [facility] Work Phone: 01-04-2020 pneumococcal polysaccharide vaccine, 23 valent Jean A Naderer Work Phone: [facility] 12-20-2019 influenza, seasonal, injectable Jean A Naderer Work Phone: [facility] 10-25-2018 influenza, injectabl e, quadrivalent, preservative free Curtis Meléndez MD Work Phone: [facility] Work Phone: 10-25-2018 influenza, seasonal, injectable Jean A Naderer Work Phone: [place] [address] DO Work Phone: 11-24-2017 influenza virus vaccine, unspecified formulation Jean A Naderer Work Phone: [place] [address] DO Work Phone: 02-25-2016 pneumococcal polysaccharide vaccine, 23 valent Jean A Naderer Work Phone: [facility] Payers Date Payer Category Payer Self-pay [id number] 2022 Unknown 2020 Unknown [id number] 2.16 .[id number] 2020 Unknown [id number] 2.16.840 .[id number] 1959 Unknown [id number] 1955 Unknown [id number] 2.16.84 0.1.767728.3.579.2.593 1955 Unknown [id number] 2.16.84 0.1.941541.3.579.2.593 1955 Unknown [id number] 2.16.84 0.1.111953.3.579.2.593 1955 Unknown [id number] 2.16.84 0.1.659783.3.579.2.593 1955 Unknown [id number] 2.16.84 0.1.045384.3.579.2.593 1955 Unknown [id number] 2.16.84 0.1.297541.3.579.2.593 1955 Unknown [id number] 2.16.84 0.1.351713.3.579.2.593 1955 Unknown [id number] 2.16.84 0.1.287122.3.579.2.593 1955 Unknown [id number] 2.16.84 0.1.098160.3.579.2.593 1955 Unknown [id number] 2.16.84 0.1.152153.3.579.2.593 1955 Unknown [id number] 2.16.84 0.1.730975.3.579.2.593 1955 Unknown [id number] 2.16.84 0.1.332845.3.579.2.593 1955 Unknown [id number] 2.16. 840.1.500892.3.579.2.356 1955 Unknown [id number] 2.16. 840.1.991266.3.579.2.356 1955 Unknown [id number] 2.16.8 40.1.044720.3.579.2.1244 1955 Unknown [id number] 2.16.8 40.1.108209.3.579.2.1068 1955 Unknown [id number] 2.16.8 40.1.012178.3.579.2.1068 1955 Unknown [id number] 2.16.8 40.1.943670.3.579.2.1068 1955 Unknown [id number] 2.16.8 40.1.089908.3.579.2.1068 1955 Unknown [id number] 2.16.8 40.1.048551.3.579.2.1068 1955 Unknown [id number] 2.16.8 40.1.777999.3.579.2.1068 1955 Unknown [id number] 2.16.8 40.1.358208.3.579.2.1068 1955 Unknown [id number] 2.16.8 40.1.416337.3.579.2.727 1955 Unknown [id number] 2.16.8 40.1.179282.3.579.2.727 1955 Unknown [id number] 2.16.84 0.1.399869.3.579.2.1246 1955 Unknown [id number] 2.16.84 0.1.411034.3.579.2.1246 Medicare [id number] 2.1 6.840.1.292748.19 Medicare Barnum MCR PFFS [id number] Medicare [id number] Unknown [id number] 2.16.8 40.1.441249.3.579.2.531 Unknown [id number] 2.16.8 40.1.644155.3.579.2.531 Social History Date Type Detail Facility Start: 12-09-2022 Former smoker Former smoker [facility] 250 DO Work Phone: Start: 12-09-2022 Sex Assigned At F [facility] Start: 07-14-2021 End: 07-14-2021 Tobacco smoking status NHIS Never smoked tobacco (finding) [facility] Start: 1955 Sex Assigned At Male F [facility] Tobacco smoking consumption unknown [facility] Start: 12-18-2020 Tobacco smoking status Ex-smoker (finding) [facility] Start: 12-09-2022 Tobacco use and exposure Smokeless tobacco non-user [facility] Work Phone: Start: 12-09-2022 Alcohol intake Lifetime non-d lalo (finding) [facility] Work Phone: Start: 1955 Sex Assigned At Not on file U [facility] Work Phone: Start: 02-18-2023 End: 02-28-2023 Exposure to SARS-CoV-2 (event) Not sure [facility] Functional Status Date Assessment Result Facility 12-23-2022 Functional Status N/A [facility] [place] Functional observable [facility] Mental Status Date Assessment Result Facility 11-06-2022 Cognitive functions [id number] [facility] Clinical Notes 11-30-2020 to 02-28-2023 Curtis [...] portion of this split dictation. In a dequ-nu-cmek encounter, I performed a history and physical [...] the lumbar spine. documented in this encounter [facility] Work Phone: 12-23-2022 Hospital Discharge instructions [...] treatment? Where to find more information [employer]: www.cancer.org [place] [employer]: www.auanet.org Contact a health care [...] provider. Document Revised: 08/06/2021 Document Reviewed: 08/06/2021 [employer] Patient Education 2022 App[employer]ift. Follow Up Care 12/21/2021 12:26:12 With:RAINER JIMENEZ, Marino Calabrese, URL Address: [facility] [address] , [place] [address]- [phone] When: Unknown Comments:1 yr w/ PSA [facility] 11-07-2022 Note Send Summary: Discharge Summary Providers: Provider RoleProvider Name Carmen Conner Robert ConsultingKher, Chirag PrimaryHoy, Douglas M Note Recipients: Curtis Meléndez MD - [id number] [Preferred] Carmen Witt MD - [id number] [] Cayden Flores MD Discharge: Summary: Admission Date: .04-Nov-2022 05:14:00 Discharge Date: 07-Nov-2022 Attending Physician at Discharge: Curtis Meléndez Admission Reason: Lumbar stenosis and spondylolisthesis(1) Final Discharge Diagnoses: Back pain Procedures: Date: 04-Nov-2022 13:07:00 Procedure Name: 1. 2. 3. 4. 5. Condition at Discharge: Satisfactory Disposition at Discharge: .Home Vital Signs: T PRBPMAPSpO2 [id number]% Date/Time11/07 8: 8: 8:5611/07 8: 21: 8:56 [...] please call ahead and schedule appointment Location: [address] [facility] Phone Number: [phone] Discharge Medications: Home Medication furosemide 20 mg [...] tab(s) orally once a day Potassium Chloride (Uox-Ojww-Gmr 10) 10 mEq oral tablet, extended release [...] discharge: Full Code Electronic Signatures: Gilda Mcmahon (INSTRUCTIONAL TECHNOLOGY INSTRUCTOR-CASE MANAGEMENT ASSOCIATE) (Signed 07-Nov-2022 09:26) Authored: Send Summary, Summary Content, Immunizations, Ongoing Care, DNR Status, Note Completion Last Updated: 07-Nov-2022 09:26 by Gilda Mcmahon (INSTRUCTIONAL TECHNOLOGY INSTRUCTOR-CASE MANAGEMENT ASSOCIATE) References: 1. Data Referenced From Consult-General Internal Medicine 04-Nov-2022 16:29 [facility] 11-04-2022 Note Post Operative Note: Post-Procedure Diagnosis: Lumbar stenosis and spondylolisthesis Procedure: 1. 2. 3. 4. 5. Surgeon: Ángela Resident/Fellow/Other Software Quality Test Engineer: Alice Estimated Blood Loss (mL): 100 cc Specimen: no Findings: Lumbar stenosis and spondylolisthesis Operative Report Dictated: Dictation: not applicable - note contains Operative Report Note Recipients: Curtis Meléndez MD - [id number] [Preferred] Carmen Witt MD - [id number] [] Operative Report: Preoperative diagnosis: L2-3 and [...] Curtis Meléndez M.D. Asst.: Sonu HillThe physician assistant at surgery was present through the entire case. Given the nature of the disease process and the procedure to be performed a skilled surgical nurse was necessary during the case. The assistant at surgery was necessary in order to hold retractors and directly assist in the operation. A cisco certified network professional was at the back table managing instruments [...] the large dilat (more content not included)... [facility] 11-04-2022 Reason for referral (narrative) Reason for Referral: Surgery 11.04.2022 L3-4 lateral interbody fusion, L2-3 and L3-4 laminectomy and posterior lateral fusion, L3-4 lateral instrumentation, thermal ablation of median nerve to L2-3 and L3-4 [facility] 10-30-2022 Evaluation note Encounter Date Diagnosis Assessment Notes Oct, Diastolic dysfunction (ICD-10 - I51.89) Continue all recommendati on/medicatio ns per your Technical Services Librarian . Oct, ILD (interstitial lung disease) (ICD-10 - J84.9) Pulmonary Function Test as scheudled prior to next office appointment. [employer] Other 07-27-2023 History of Present illness NarrativeGarelena [...] has no bowel or bladder complaints[facility] Work Phone: [phone]) 255-473606-27-2023 Evaluation note* Encounter Date Diagnosis Assessment Notes Treatment Notes Treatment Clinical Notes Jul, Diastolic dysfunction (ICD-10 - I51.89) Jul, ILD (interstitial lung disease) (ICD-10 - J84.9) I reviewed results and images of your Chest CT completed at [facility] 10/2021 and 01/2022. There is evidence of very mild fibrosis (scarring). Continue with physcial activity as you are. [employer] Other 06-22-2023 Evaluation note* Encounter Date Diagnosis [...] agrees with plan, and denies any questions. [employer] Other 03-16-2023 NoteCONSULTATION CONSULTATION DATE: 05/09/2022 HISTORY: [...] is currently under the care of a general cargo clerk. Most recent physician appointment does show that his lungs are slowly improving. He does have a Cardiology appointment on 06/13/2022, and at that time, he will discuss with the forest nursery supervisor regarding possible use of sedation and holding [...] otherwise indicated. Patient agrees with this care.[facility] [id number] NoteCONSULTATION CONSULTATION DATE: 02/07/2022 HISTORY OF PRESENT [...] still being followed up with Pulmonology in [facility] and, most recently, they feel he is [...] up in three months, unless otherwise indicated.[facility] [id number] Evaluation note* Encounter Date Diagnosis Assessment Notes Treatment Notes Treatment Clinical Notes Jan, Diastolic dysfunction (ICD-10 - I51.89) Jan, ILD (interstitial lung disease) (ICD-10 - J84.9) I will look at Chest CT from [place] and let you know if any further testing is needed. Jan, Dyspnea (ICD-10 - R06.00) [employer] Other 10-04-2022 NoteCONSULTATION CONSULTATION DATE: 11/27/2021 CHIEF [...] is under the care of Dr. Go, forest nursery supervisor, who has suggested that the patient not hold the Eliquis for any treatment right now and, as such, we will maintain a conservative approach. IMPRESSION: As such, the patient's current working diagnosis is chronic low back pain, new diagnosis of cystic fibrosis. A recent CT of the lung was performed and the patient is under the care of [facility]. The patient is also under anticoagulation therapy. PLAN: We will refill the patient's Percocet 5/325 b.i.d. The patient will be returning in clinic as needed. 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 The patient was worked up in the emergency department and it was found that he had multiple PEs in his lungs and in his right lower leg. The patient was transferred to [facility] where the large PE was surgically [...] and Approved by: LAUREN BAUMANN . 09/06/2021 09:46:00[facility]06-28-2022 Evaluation note* Encounter Date Diagnosis Assessment Notes [...] the plan all his questions were addressed. [employer] Other 10-07-2021 Evaluation note* Encounter Date Diagnosis [...] Nov, Other Try Mylanta for acid reflux. [employer] Other Evaluation + Plan note Future Appointments Appointment Date:12/26/2023 11:00:00 AM Scheduled Provider:Marino SPEAR MD Location:[facility] Appointment Type:URO Office Visit Diagnostic Tests Pending * PSA Total 12/23/22 [facility] evaluation noteNo InformationNort Care2Manage Other Evaluation noteNo assessment information available [facility] Work Phone: Evaluation note* Constitutional: Well [...] senses, motor, response and reflexes, normal strength [facility] Diagnosis Low back pain, unspecified back pain laterality, unspecified chronicity, unspecified whether sciatica present- Primary documented in this encounter [facility] Work Phone: History general Narrative - Reported* Type Description Date Medical History COPD Medical History asthma Medical History sleep apnea (negative PSG) Medical History aaa Medical History pe Surgical History spine 2001 Surgical History neck 2004 Surgical History prostate biopsy 2017 Surgical History dental extraction Hospitalization History as above Hospitalization History pe 2021 Netbooks Other Hisiqoh general Narrative - Reported* Type Description Date Medical History NOEL Medical History COPD Medical History asthma Medical History sleep apnea Surgical History spine 2001 Surgical History neck 2004 Surgical History prostate biopsy 2017 Hospitalization History as above [employer] Other Hiszwel general Narrative - Reported* Type Description Date Medical History COPD Medical History asthma Medical History sleep apnea (negative PSG) Surgical History spine 2001 Surgical History neck 2004 Surgical History prostate biopsy 2017 Hospitalization History as above [employer] Other History general Narrative - Reported* Type Description Date Medical History COPD Medical History asthma Medical History sleep apnea (negative PSG) Medical History aaa Medical History pulmonary embolism Surgical History spine 2001 Surgical History neck 2004 Surgical History prostate biopsy 2017 Surgical History dental extraction Hospitalization History as above Hospitalization History pulmonary embolism [facility] 06/2021 Netbooks Other Hisfgal general Narrative - Reported* Type Description Date Medical History COPD Medical History asthma Medical History sleep apnea (negative PSG) Medical History aaa Medical History pulmonary embolism Medical History interstitial lung disease Medical History diastolic dysfunction Surgical History spine 2001 Surgical History neck 2004 Surgical History prostate biopsy 2017 Surgical History dental extraction Hospitalization History as above Hospitalization History pulmonary embolism [facility] 06/2021 [employer] Other History of Present illness NarrativeErik is [...] to the pain management center [facility] [place].[facility] Work Phone: Hospital course Narrative No data available for this section [facility] Hospital Discharge instructions* Activity:activity as tolerated. May [...] ahead and schedule appointmentLocation: [address] [place]: [phone] [facility] No data available for this section [facility] [place] Chief Complaint Pt came in today [...] office for follow-up for recent admission to [facility] with bilateral pulmonary embolism leading to [...] pulmonary embolism. Recently follow-up CT scan at [facility] revealed resolution of the pulmonary emboli. Some other pathology was noted with densities requiring follow-up imaging in 3 to 6 months which has been arranged through his PCP. He is cu rrently anticoagulated with Eliquis. The patient is contemplating further dental work in December which he should be able to hold anticoagulation prior to. Recent nuclear stress test at [facility] was reviewed and shared with the patient and was normal. He is also known to have normal ejection fraction. He currently has no complaint to report physical examination was only remarkable for 8 pounds weight gain from last visit. He is now in the obesity range recent medical record from [facility] were reviewed with the patient [...] thoracic and lumbar xrays and MRI in [place]. brought a disc.new patient. low back pain with RT sided pain to nee x 2 months. h/o sx in 1998. thoracic and lumbar xrays and MRI in [place]. brought a disc.F/U Lumbar after therapy, says [...] 2-3 views Curtis Meléndez MD [address] [facility], [address] [place] [id number] Referral ID Status Reason Start Date Expiration Date Visits Requested Visits Authorized [id number] Authorized Perform Procedure 02/28/2023 02/28/2024 1 1 [...] DATE CREATED AUTHOR AUTHOR'S ORGANIZ ATION 10/25/2022 [facility] DATE CREATED AUTHOR AUTHOR'S ORGANIZ ATION 11/29/2022 [facility] DATE CREATED AUTHOR AUTHOR'S ORGANIZ ATION 12/11/2022 [facility] DATE CREATED AUTHOR AUTHOR'S ORGANIZ ATION 12/14/2022 [facility] DATE CREATED AUTHOR AUTHOR'S ORGANIZ ATION 12/24/2022 [facility]Kmeron Del Angel [facility] DATE CREATED AUTHOR AUTHOR'S ORGANIZ ATION 03/04/2023 [facility] DATE CREATED AUTHOR AUTHOR'S ORGANIZ ATION 03/10/2023 [facility] Care Teams (unrecognized sec tion and content) Team Status: Active Member Role Status Dates Jean Nicholson MD Primary Care Provider Active Team Status: Inactive Member Role Status Dates Jean Nicholson MD Primary Care Provider Active Bianka Garcia NP-C Attending Provider Active 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 [facility]. provides no warranty or guarantee of the accuracy or completeness of information in this document.
--- NOTE | 2023-04-07 13:35 | P.CN_ITS ---
Consult Note: HPI Data of Consult Patient: known to practice within the last 3 years Consult date: 04/07/23 Requesting Physician: Maribell Leigh MD Primary Care Provider: Radames Ricks MD Consult Narrative Reason for consult: right hip, right low back, right leg pain Narrative: 67yom who presents for assessment. worsening right low back, leg, hip pain. imaging reviewed, which shows multilevel degenerative changes and stenosis, as well as fusion from l4-s1. has continued in provider directed home exercise pro gram >6 weeks, with minimal benefit. tender over right greater trochanter. uses celebrex and baclofen as needed. denies adverse med side effects. cc:: CC: Maribell Leigh MD Review of Systems ROS Status of ROS 10 or more systems reviewed and unremark able except as noted in history and below PFSH PFSH Medical History Fixation hardware in spine ?Z96.7 - Presence of other bone and tendon implants (ICD-10) Fusion of lumbar spine ?M43.26 - Fusion of spine, lumbar region (ICD-10) Pulmonary embolism ?I26.99 - Other pulmonary embolism without acute cor pulmonale (ICD-10) Generalized weakness ?R53.1 - Weakness (ICD-10) Meds Home Medications and Allergies Home Medications Medication Instructions Recorded Confirmed Type acetaminophen 325 mg tablet 325 mg PO Q6H PRN pain 09/06/22 03/24/23 History (Tylenol) albuterol sulfate 90 mcg/actuation 2 puff inhalation Q4H PRN 09/06/22 03/24/23 History aerosol inhaler shortness of breath or wheezing apixaban 5 mg tablet (Eliquis) 5 mg PO Q12H 09/06/22 03/24/23 History atorvastatin 40 mg tablet 40 mg PO QDAY 09/06/22 03/24/23 History baclofen 10 mg tablet 10 mg PO QDAY 09/06/22 03/24/23 History eye promise QDAY 09/06/22 History furosemide 20 mg tablet 20 mg PO QDAY 09/06/22 03/24/23 History lisinopril 20 mg tablet 20 mg PO QDAY 09/06/22 03/24/23 History metoprolol tartrate 25 mg tablet 25 mg PO Q12H 09/06/22 03/24/23 History nortriptyline 25 mg capsule 25 mg PO BEDTIME 09/06/22 03/24/23 History omeprazole 40 mg capsule,delayed 40 mg PO QDAY 09/06/22 03/24/23 History release oxybutynin chloride 10 mg 10 mg PO QDAY 09/06/22 03/24/23 History tablet,extended release 24 hr oxycodone-acetaminophen 5 mg-325 1 tab PO BID PRN pain 09/06/22 03/24/23 History mg tablet potassium chloride 10 mEq 10 meq PO QDAY 09/06/22 03/24/23 History tablet,extended release celecoxib 200 mg capsule (Celebrex) 200 mg PO BID 11/08/22 03/24/23 History docusate sodium 100 mg capsule 100 mg PO BID 11/08/22 03/24/23 History oxycodone-acetaminophen 5 mg-325 1 tab PO BID PRN pain #60 tabs 01/13/23 03/24/23 Rx mg tablet (Percocet) Allergies Allergy/AdvReac Type Severity Reaction Status Date / Time No Known Drug Allergies Allergy Verified 03/24/23 08:14 Exam Narrative Exam Narrative: Psych-alert and oriented x 3. Attentive and appropriate, constitutionally normal, displays normal mood and affect per situation. There are no obvious deficits in memory, reasoning, or intellect.? Skin-no obvious rashes, bruising, erythema noted to the patient's area of pain.? Extremities- extremities are warm with minimal edema and palpable pulses. Tender to palpation over right greater trochanter. Lumbar-tenderness to palpation noted in the lumbar spine and paraspinal musculature. Pain is not elicited with flexion, extension, and lateral rotation of the lumbar spine. Range of motion is not diminished with these motions. Facet loading maneuvers are negative.? Strength-noted to be unremarkable Sensory-no notable sensory deficits in the bilateral lower extremities to touch or pinprick in all dermatomal distributions with the exception to decreased sensation to the right L4, 5 dermatomal distribution Coordination remains intact.? Gait remains non-antalgic. Assessment and Plan Assessment and Plan (1) Greater trochanteric bursitis: Qualifiers: Laterality: right Qualified Code(s): M70.61 - Trochanteric bursitis, right hip (2) Lumbar postlaminectomy syndrome: (3) Lumbar stenosis with neurogenic claudication: Plan 67yom who presents for assessment. worsening right hip and low back, leg pain. imaging reviewed, as noted. given tenderness over right trochanter, prudent to attempt right troch bursa injection. he is in agreement. in terms of low back and right leg pain, prudent to attempt caudal epidural steroid injection. he is in agreement. will hold eliquis x3 days. meds reviewed, no changes. follow up after procedure. Procedure: Right trochanteric bursa injection Medications: Bupivacaine 0.25% 3cc, kenalog 40mg I explained the details of the procedure to the patient including the risks, benefits and alternatives. We had an informed discussion and the patient verbalized understanding and signed the consent form. All questions were answere d appropriately.? A time out was performed.? The skin overlying the right lateral hip was prepped with alcohol x3. A sterile syringe containing the above medication was attached to a 25 gauge, 3.5 inch needle under strict aseptic technique. The greater trochanter and point of tenderness was palpated. At this point, the needle was then advanced through the subcutaneous tissue down to os. The needle was withdrawn slightly and the contents of the syringe were gently injected without any resistance. The needle was removed and pressure was applied to the injection site to decrease the incidence of ecchymosis and hematoma formation.? A sterile bandage was applied. Post procedural instructions were given to the patient.
== END 2023-04-07 11:56 | disposition home or self-care (01) ==
LOC: PM 11:55
PROVIDERS: PCP Family Medicine; Visit Provider Anesthesiology
DX: M70.61 Trochanteric bursitis, right hip (principal); M96.1 Postlaminectomy syndrome, not elsewhere classified; M48.062 Spinal stenosis, lumbar region with neurogenic claudication
CPT/HCPCS: 20610; J0665; J3301

== ENCOUNTER 2023-05-19 09:00 | Day surgery (SDC) | payer OTHER, SELFPAY ==
[2023-05-19 09:55] VITALS: BP 116/85; PULSE 70; RESP 16; TEMP 36.7; O2SAT 99
[2023-05-19 10:49] VITALS: BP 125/64; PULSE 74; RESP 18; O2SAT 96
[2023-05-19] MEDS: IOHEXOL 240 MG/ML - 10 ML VIAL 36 MG IV (10:50)
[2023-05-19] MEDS: LIDOCAINE HCL 2% PF 100 MG/5 ML VIAL 3 ML INJ (10:50)
[2023-05-19] MEDS: 0.9 % SODIUM CHLORIDE 10 ML SYRINGE - SALINE FLUSH 2 ML INJ (10:50)
[2023-05-19] MEDS: BUPIVACAINE HCL 0.25% PF 25 MG/10 ML VIAL 2 ML INJ (10:50)
[2023-05-19] MEDS: TRIAMCINOLONE ACETONIDE 40 MG/ML VIAL 80 MG INJ (10:50)
[2023-05-19 10:51] VITALS: BP 120/58; PULSE 67; RESP 18; O2SAT 97
--- NOTE | 2023-05-19 10:55 | W.PM.PROCNOT ---
Date of procedure: 05/19/23 Pre-op diagnosis: Lumbar stenosis with neurogenic claudication, M96.1 Post-op diagnosis: same as pre-op Procedure: Procedure: Caudal epidural steroid injection Medications: Bupivacaine 0.25% 4cc, kenalog 40mg After informed consent was obtained, the patient was brought to the medical procedure unit and placed in the prone position.? A timeout was completed identifying correct patient, procedure, site, positioning, and special equipment.? The skin overlying the area was prepped and draped in standard sterile fashion using alcohol, after which a 25-gauge needle was used to raise a skin wheal over the sacral hiatus identified under fluoroscopy.? Subsequently a 17-gauge Tuohy needle was inserted through anesthetized area and directed toward the sacral hiatus under fluoroscopic guidance.? After piercing the sacrococcygeal membrane, needle tip placement was confirmed by injection of Omnipaque dye.? Then 5 mL of steroid solution was instilled.? Postoperatively, needles were removed and the catheter was removed with the tip intact.? The patient was transferred to the recovery area in stable condition to be discharged after meeting criteria. Anesthesia: Local Surgeon: Maribell Leigh Pathology: none sent Condition: stable Disposition: no change
== END 2023-05-19 11:00 | disposition home or self-care (01) ==
PROVIDERS: PCP Family Medicine; Visit Provider Anesthesiology
DX: M48.062 Spinal stenosis, lumbar region with neurogenic claudication (principal); M96.1 Postlaminectomy syndrome, not elsewhere classified
CPT/HCPCS: 62323; Q9966

== ENCOUNTER 2023-05-28 13:55 | Outpatient (OUT) | payer OTHER, SELFPAY ==
--- NOTE | 2023-05-28 14:26 | P.CN_ITS ---
Consult Note: HPI Data of Consult Patient: known to practice within the last 3 years Consult date: 04/07/23 Requesting Physician: Mercedes Massey NP Primary Care Provider: Radames Ricks MD Consult Narrative Reason for consult: right hip, right low back, right leg pain Narrative: 67yom who presents for assessment. worsening right low back, leg, hip pain. imaging reviewed, which shows multilevel degenerative changes and stenosis, as well as fusion from l4-s1. has continued in provider directed home exercise program >6 weeks, with minimal benefit. tender over right greater trochanter. uses celebrex and baclofen as needed. denies adverse med side effects. recently underwent caudal BRIAN with 80% improvement ongoing. Patient find mild to moderate benefit from right GTB injection. Today pain in right hip 05/03. cc:: CC: Mercedes Massey NP Review of Systems ROS Status of ROS 10 or more systems reviewed and unremark able except as noted in history and below Musculoskeletal Reports: back pain PFSH PFSH Medical History Fixation hardware in spine ?Z96.7 - Presence of other bone and tendon implants (ICD-10) Fusion of lumbar spine ?M43.26 - Fusion of spine, lumbar region (ICD-10) Pulmonary embolism ?I26.99 - Other pulmonary embolism without acute cor pulmonale (ICD-10) Generalized weakness ?R53.1 - Weakness (ICD-10) Meds Home Medications and Allergies Home Medications ?Medication ?Instructions ?Recorded ?Confirmed ?Type acetaminophen 325 mg tablet 325 mg PO Q6H PRN pain 09/06/22 05/19/23 History (Tylenol) albuterol sulfate 90 mcg/actuation 2 puff inhalation Q4H PRN 09/06/22 05/19/23 History aerosol inhaler shortness of breath or wheezing apixaban 5 mg tablet (Eliquis) 5 mg PO Q12H 09/06/22 05/19/23 History atorvastatin 40 mg tablet 40 mg PO QDAY 09/06/22 05/19/23 History baclofen 10 mg tablet 10 mg PO QDAY 09/06/22 05/19/23 History furosemide 20 mg tablet 20 mg PO QDAY 09/06/22 05/19/23 History lisinopril 20 mg tablet 20 mg PO QDAY 09/06/22 05/19/23 History metoprolol tartrate 25 mg tablet 25 mg PO Q12H 09/06/22 05/19/23 History nortriptyline 25 mg capsule 25 mg PO BEDTIME 09/06/22 05/19/23 History omeprazole 40 mg capsule,delayed 40 mg PO QDAY 09/06/22 05/19/23 History release oxybutynin chloride 10 mg 10 mg PO QDAY 09/06/22 05/19/23 History tablet,extended release 24 hr oxycodone-acetaminophen 5 mg-325 1 tab PO BID PRN pain 09/06/22 05/19/23 History mg tablet potassium chloride 10 mEq 10 meq PO QDAY 09/06/22 05/19/23 History tablet,extended release docusate sodium 100 mg capsule 100 mg PO BID 11/08/22 05/19/23 History Allergies Allergy/AdvReac Type Severity Reaction Status Date / Time No Known Drug Allergies Allergy Verified 05/19/23 09:58 Exam Constitutional Documenting provider has reviewed patient's vital signs: yes Common normals: no apparent distress, oriented x3, healthy appearing, alert and well nourished General appearance: cooperative [facility] Common normals: normocephalic, hearing grossly normal bilaterally and moist oral mucous membranes Head and scalp: normocephalic Eye Common normals: PERRL Pupil: PERRL Neck & C-Spine Common normals: full ROM General: normal visual inspection Chest Common normals: inspection of chest normal Respiratory Common normals: normal respiratory effort, no retractions and no use of accessory muscles Back & Pelvis Lumbar spine/lower back: ROM limited and straight leg raise negative bilaterally Sacroiliac joints: SI joints normal Other: surgical scar healed, no redness tenderness or warmth mild back pain no radiculopathy on exam no pain over right PSIS, pain increased with CAS/FAIDIR thigh thrust and gaenslens maneuvers negative internal and external log roll of right hip, mild tenderness over right GTB Extremity Common normals: normal to inspection and full ROM Neuro Common normals: oriented x3, CN's II-XII intact bilaterally, moves all extremities, no focal motor deficits, no sensory deficits noted, deep tendon reflexes 2+ bilaterally and gait normal Sensorium/orientation: alert Motor exam: strength 5/5 throughout and no movement abnormalities noted Psych Common normals: mental status grossly normal, thought process normal, cooperative, affect normal, speech normal and activity/motor behavior normal Speech: normal speech Thought process: normal thought process Results Additional Findings Additional findings: If on a controlled substance or opioids, I have checked an [place] report on this patient and there are no aberrancies noted in the prescribing history.??If on a controlled substance or opioid a drug screen was completed and reviewed within the last year, and if there has not been a drug screen completed we ordered one today to monitor higher risk, state monitored pain medication use. As part of providing excellent, safe, comprehensive care, the following was completed at our patient's visit: 1. A medication reconciliation and review to ensure accurate knowledge of current/active medications, including asking our patients to inform us about any [id number] medications or herbal remedies/nutritional supplements/alternative remedies. 2. A review to specifically ensure our patients have had annual screening for screening for depression, screening for tobacco use, and screening for unhealthy alcohol use. For concerning screenings had a discussion with the patient, provided patient education, and recommended follow-up with primary care provider when appropriate. If patient noted with a risk of falling, they received education on strength, gait, and balance training to prevent future risk of falling. Assessment and Plan Assessment and Plan (1) Lumbar stenosis with neurogenic claudication: Assessment and Plan: >80% improvement ongoing from caudal BRIAN (2) Lumbar postlaminectomy syndrome: (3) Greater trochanteric bursitis: Qualifiers: Laterality: right Qualified Code(s): M70.61 - Trochanteric bursitis, right hip (4) Failed back syndrome: (5) Encounter for long-term use of opiate analgesic: Assessment and Plan: I feel these medications are improving the patient's quality of life and allow them to tolerate activities of daily living as well as participate in recreational activity.? The patient does not report intolerable side effects. The patient is NOT opioid naive and non-pharmacologic and non-opioid treatment has failed to significantly relieve the patient's pain and improve functionality. The patient has a diagnosis that is related to a somatic or visceral pain etiology. ? ?? I reviewed with the patient the potential risks and side effects with the use of? opioid medications including but not limited to respiratory depression,? sedation, and even . I verified the patient has access to naloxone should? these effects occur. I advised the patient to avoid the use of any other? sedation substances including alcohol, THC, and benzodiazepines while? taking opioid medications due to the risk of compounding side effects and? detrimental outcomes. I reviewed the PERSONAL CAREGIVER, pain treatment agreement, urine? drug screen, and opioid start talking forms. The patient was advised to let? their family know they had Naloxone in case they would need to administer? the medication.? ?? A drug screen was completed within the last year, and no aberrancies were noted regarding their use of controlled substances. The patient understands they are subject to the terms and conditions of the pain contract that they have signed. ? ?? I have checked an [place] report on this patient today and there are no aberrancies noted in the prescribing history.? Plan continue current medication regimen, reporting functional improvement without side effects f/u 3 months, sooner if needed
== END 2023-05-28 13:56 | disposition home or self-care (01) ==
PROVIDERS: PCP Family Medicine; Visit Provider Nurse Practitioner
DX: M48.062 Spinal stenosis, lumbar region with neurogenic claudication (principal); M96.1 Postlaminectomy syndrome, not elsewhere classified; M70.61 Trochanteric bursitis, right hip; Z79.891 Long term (current) use of opiate analgesic
CPT/HCPCS: G0463

== ENCOUNTER 2023-07-30 11:17 | Outpatient (OUT) | payer OTHER, SELFPAY ==
[2023-07-30 12:35] LABS: Estimated Average Glucose 126 mg/dL
[2023-07-30 12:45] LABS: Basophils Absolute Auto 0.1 10^3/uL (0.0-0.1); Basophils Percent Auto 1.4 % (0.2-2.0); Eosinophils Absolute Auto 0.2 10^3/uL (0.0-0.7); Eosinophils Percent Auto 1.9 % (0.9-7.0); Hematocrit 41.5 % (42.0-54.0); Hemoglobin 13.6 g/dL (14.0-18.0); Immature Granulocytes Abs Auto 0.03 10^3/uL (0.00-0.03); Immature Granulocytes Pct Auto 0.4 % (0.0-0.5); Lymphocytes Absolute Auto 1.1 10^3/uL (1.2-3.8); Lymphocytes Percent Auto 14.7 % (20.5-60.0); Mean Corpuscular HGB Conc 32.8 g/dL (29.9-35.2); Mean Corpuscular Hemoglobin 31.6 pg (25.9-34.0); Mean Corpuscular Volume 96.5 fL (80.0-94.0); Mean Platelet Volume 11.1 fL (9.5-13.5); Monocytes Absolute Auto 0.7 10^3/uL (0.3-0.8); Monocytes Percent Auto 9.3 % (1.7-12.0); Neutrophils Absolute Auto 5.6 10^3/uL (1.4-6.5); Neutrophils Percent Auto 72.3 % (43.0-75.0); Platelet Count 224 10^3/uL (150-450); Red Cell Distribution Width 14.1 % (11.0-15.0); White Blood Count 7.8 10^3/uL (4.0-11.0)
[2023-07-30 13:03] LABS: Alanine Aminotransferase 15 U/L (16-63); Albumin Globulin Ratio 0.8; Albumin Level 3.2 g/dL (3.4-5.0); Alkaline Phosphatase 124 U/L (46-116); Anion Gap 11.3; Aspartate Amino Transferase 14 U/L (15-37); Bilirubin Total 0.6 mg/dL (0.2-1.0); Calcium 8.9 mg/dL (8.5-10.1); Carbon Dioxide 26.8 mmol/L (21.0-32.0); Chloride 106 mmol/L (98-107); Chol HDL Ratio 3.3; Cholesterol 144 mg/dL (<=200); Estimated GFR (African America 60 (>=60); Estimated GFR (Non-African Ame 49 (>=60); Free T3 2.55 pg/mL (2.18-3.98); Globulin 3.9 g/dL; Glucose 98 mg/dL (74-106); HDL Cholesterol 44 mg/dL (40-60); LDL Cholesterol Calculated 84.2 mg/dL; Potassium 4.1 mmol/L (3.5-5.1); Sodium 140 mmol/L (136-145); Thyroid Stimulating Hormone 0.261 uIU/mL (0.358-3.740); Total Protein 7.1 g/dL (6.4-8.2); Triglycerides 79 mg/dL (<=150); VLDL CHOLESTEROL 15.8 mg/dL
[2023-07-30 13:07] LABS: Prostate Specific Antigen Scrn <0.13 ng/mL (<=4.00)
[2023-07-31 03:08] LABS: Insulin 5.4 uIU/mL (2.6-24.9)
== END 2023-07-30 11:18 | disposition home or self-care (01) ==
LOC: LAB 11:21
PROVIDERS: PCP Family Medicine; Visit Provider Nurse Practitioner Family
DX: E78.5 Hyperlipidemia, unspecified (principal); R53.83 Other fatigue; I10 Essential (primary) hypertension; M25.59 Pain in other specified joint; Z12.12 Encounter for screening for malignant neoplasm of rectum; R73.09 Other abnormal glucose
CPT/HCPCS: 36415; 80053; 80061; 83036; 83525; 84436; 84443; 84481; 84550; 85025; G0103

== ENCOUNTER 2023-08-29 08:57 | Outpatient (OUT) | payer OTHER, SELFPAY ==
--- OUTSIDE RECORDS SUMMARY | 2023-08-29 09:03 | XMS_ITS | CCD ---
Author Organization [facility] Care Team Providers Care Sweeper Operator Highways Name Role Phone Jean Nicholson Unavailable Unavailable Unavailable Julian Matthews Unavailable [phone] Bianka Garcia Unavailable Danna Mcdaniel Unavailable Carmen Witt Unavailable BAUMANN ., LAUREN Consulting Unavailable JUAN, KATHERINE Primary Care Unavailable ANDERSON ., DR LOERNA Dunham Attending Unavailable ANDERSON ., DR LORENA [...] Unavailable HOY ., DR MORALES Attending Unavailable MIRYAM ., DR MORALES Admitting Unavailable ZITOSHA, DR BRITANY Calabrese Consulting Unavailable SHARAN, DR BRITANY Calabrese Consulting Unavailable JUAN, KATHERINE [...] Admitting Unavailable JEAN NICHOLSON Primary Care Unavailable PALENCIA, DRAGAN Consulting Unavailable JUSTIN ., DR LORENA Dunham Consulting Unavailable JUAN, KATHERINE Primary Care Unavailable ANDERSON ., DR LORENA Duhnam Attending Unavailable ANDERSON ., DR LORENA Dunham Admitting Unavailable BAUMANN ., LAUREN Consulting Unavailable BAUMANN ., LAUREN Consulting Unavailable JUAN, KATHERINE Primary Care Unavailable ANDERSON ., DR LORENA Dunham Attending Unavailable ANDERSON ., DR LORENA Dunham Admitting Unavailable MD Jean Nicholson Primary Care Provider EDEL Garcia Attending Provider Gina, Dr. Jean Carvajal Primary Care Unagabbi Go, Dr. Cecilio Harman Referring Aracely vailable Lyla, Dr. Cecilio Harman Attending Aracely vailable Miryam, Dr. Carmen Fabian Primary Care Unavail able Go, Dr. Cecilio Harman Referring Aracely vailable Lyla, Dr. Cecilio Harman Attending Aracely Carmen Connor Unavailable Curtis Meléndez Unavailable Cayden Flores Unavailable Unavailable Cecilio Go Unavailable CECILIO GO Attending Unavailable CARMEN WITT Primary Care Unavailable Miryam, Dr. Carmen Fabian Primary Care Unavail able Ángela, Dr. Curtis Keys Attending Leonor Meléndez, Dr. Curtis Keys Attending Leonor Witt, Dr. Carmen Fabian Primary Care Unavail able Miryam, Dr. Carmen Fabian Primary Care Unavail able Ángela, Dr. Curtis Keys Attending Leonor Meléndez, Dr. Curtis Keys Attending Leonor Witt, Dr. Carmen Fabian Primary Care Unavail able Miryam, Dr. Carmen Fabian Primary Care Unavail able Ángela, Dr. Curtis Keys [facility]ending [facility], Dr. Cecilio Harman Attending Aracely vailable Hoy, Dr. Carmen Fabian Primary Care Unavail able Ángela, Dr. Curtis Keys Attending Leonor Meléndez, Dr. Curtis Keys Admitting Leonor Witt, Dr. Carmen Fabian Referring Unavail able Dr. Carmen Witt Primary Care Unavail able Carmen Witt Primary Care Physician Marino SPEAR Attending Unavailable Marino SPEAR Attending Unavailable Carmen Witt MD Primary Care Provider MD Jean Nicholson Primary Care Provider [phone] JESSICA Mcdaniel Attending Provider MD Carmen Witt Primary Care Provider [phone] CURTIS MELÉNDEZ Attending Unavailable CARMEN WITT Primary Care Unavailable CURTIS MELÉNDEZ Referring Unavailable CARMEN WITT Primary Care Unavailable CURTIS MELÉNDEZ Attending Unavailable CARMEN WITT Primary Care Unavailable CURTIS MELÉNDEZ Referring Unavailable CARMEN WITT Primary Care Unavailable Reese JIMENEZ, Maribell Boland Attending Unavailable Reese JIMENEZ, Maribell Boland Attending Unavailable Reese JIMENEZ, Maribell Boland Attending Unavailable MD Carmen Witt Primary Care Provider EDEL Garcia Attending Provider Bianka Garcia Attending Unavailable Bianka Garcia Admitting Unavailable Carmen Witt Primary Care Unavailable VioletaAugustinDanna Attending Unavailable Augustin Mcdanielidi Admitting Unavailable Carmen Witt Primary Care Unavailable Violeta Danna Admitting Unavailable Jean Nicholson Primary Care Unavailable Danna Mcdaniel Attending Unavailable Allergies Allergy Classification Reported Allergen(s) Allergy Type Date of Onset Reaction(s) Facility Nitrate Vasodilator (1 source) Nitroglycerin Drug Allergy 4 Unresponsive [facility] (20 sources) Nitroglycerin; Translations: [nitroglycerin] Drug Allergy 2 Other [facility] (9 sources) Nitroglycerin Drug Allergy Unknown [facility] Other (1 source) Aminolevulinic Acid Drug Allergy [facility] Repository (2 sources) Nitroglycerin Drug Allergy [address] [place] [address] Repository Medications Current Medications Medication Drug Class(es) [...] Active 1 TAB PO Twice daily July 14, 2021 12:00am Start: 02-01-2021 oxyCODONE-Acet aminophen 5-325 MG Oral [...] than prescribed may cause serious breathing problems. [id number] 200 actuat albuterol 0.09 mg/actuat metered dose inhaler (20 sources) beta2-Adrenergic Agonist Start: 07-15-19 take 1 puff(s) by inhalation every four hours Albuterol Sulfate Active 2 PUFF INHALATION Q4H July 14, 2021 12:00am Start: 01-26-2021 Albuterol Sulf ate HFA 108 [...] tablet (20 sources) Factor Xa Inhibitor Start: 04-09-2023 take 1 mg by mouth every twelve hours Apixaban (Eliquis) 5 mg tablet Active MG PO Every 12 hours April 09, 2023 1:00am Start: 07-16-2021 End: 04-09-2023 take 1 tablet by mouth twice daily Apixaban (Eliquis Dvt-Pe Treat 30d Start) 5 mg (74 tabs) Tablets,Dose Pack Discontinued 0 .ROUTE .COMPLEX July 16, 2021 12:00am April 09, 2023 11:29am orally per package directions then 5mg twice daily after completion of starter pack atorvastatin 40 mg oral tablet (20 sources) HMG-CoA Reductase Inhibitor Start: 07-16-2021 take 40 mg by mouth once daily in the evening Atorvastatin Active 40 MG PO Every evening July 16, 2021 12:00am Baclofen (14 sources) gamma-Aminobutyr ic Acid-ergic Agonist Start: 12-23-2022 BACLOFEN 10MG TAB BACLOFEN 10MG TAB Start Date: 10/30/23 Status: Ordered Start: 07-14-2021 take 10 mg by mouth once daily Baclofen Active 10 MG PO Daily July 14, 2021 12:00am Baclofen Active celecoxib 200 mg oral capsule (1 source) Nonsteroidal Anti-inflammatory Drug Start: 11-07-2022 End: 11-20-2022 take 1 capsule by mouth twice daily at mealtime CeleBREX 200 mg oral capsule ; 1 cap(s) orally 2 times a day x 14 days Quantity: 28 Refills: 0 Ordered: 07-Nov-2022 Lisandro, Gilda Start: 07-Nov-2022 End: 20-Nov-2022 Generic Substitution Allowed [...] milk. docusate sodium 100 mg oral capsule (5 sources) Start: 11-07-2022 End: 11-07-2023 take 1 capsule by mouth twice daily docusate sodium (Colace) 100 mg capsule TAKE 1 CAPSULE BY MOUTH TWO TIMES A DAY FOR 30 DAYS 60 capsule 11/07/2022 11/07/2023 Active Comment on above: Medication should be taken with plenty o f water. furosemide 20 mg oral tablet (20 sources) Loop Diuretic Start: 12-18-2020 take 20 mg by mouth once daily Furosemide Active 20 MG PO Daily at 0800 July 14, 2021 12:00am lisinopril 20 mg oral tablet (20 sources) Angiotensin Converting Enzyme Inhibitor Start: 12-18-2020 take 20 mg by mouth once daily Lisinopril Active 20 MG PO Daily July 14, 2021 12:00am melatonin 10 mg extended release oral tablet (4 sources) Melatonin 10 MG as directed Orally Active metoprolol tartrate 25 mg oral tablet (20 sources) beta-Adrenergic Sushant Start: 02-06-2021 take 25 mg by mouth twice daily Metoprolol Tartrate Active 25 MG PO Twice daily July 14, 2021 12:00am take 1 tablet by siobhan th every twenty-four hours Metoprolol Succinate ER 25 [...] Nortriptyline Active 25 MG PO Bedtime July 14, 2021 12:00am omeprazole 40 mg delayed release oral capsule (20 sources) Proton Pump Inhibitor Start: 01-12-20 take 40 mg by mouth once daily Omeprazole Active 40 MG PO Daily at 0800 July 14, 2021 12:00am Start: 12-18-2020 omeprazole Ora l, Daily, Refills(s) 0 Start Date: 12/18/20 Status: Ordered ondansetron 4 mg disintegrating oral tablet (5 sources) Serotonin-3 Receptor Antagonist Start: 11-07-2022 End: 11-07-2023 take 1 tablet by mouth every eight hours as needed for nausea ondansetron ODT (Zofran-ODT) 4 mg disintegrating tablet DISSOLVE 1 TABLET IN MOUTH EVERY 8 HOURS NEEDED FOR NAUSEA FOR 7 DAYS 12 tablet 11/07/2022 11/07/2023 Active 24 hr oxybutynin chloride 10 mg extended release oral tablet (20 sources) Cholinergic Muscarinic Antagonist Start: 12-18-2020 take 10 mg by mouth once daily Oxybutynin Chloride Active 10 MG PO Daily July 14, 2021 12:00am potassium chloride 10 meq extended release oral tablet (20 sources) Start: 12-18-2020 take 1 tablet by mouth twice daily potassium chloride 10 mEq ER Tab mEq tab(s), Oral, BID, Refills(s) 0 Start Date: 12/18/20 Status: Ordered Start: 10-24-2020 take 10 mEq by mouth once skye y Potassium Chloride Active 10 MEQ PO Daily July 14, 2021 12:00am temazepam 30 mg oral capsule (20 sources) Benzodiazepine Start: 01-11-2021 take 30 mg by mouth at bedtime Temazepam Active 30 MG PO Bedtime July 14, 2021 12:00am tiZANidine 4 mg oral capsule (20 sources) Central alpha-2 Adrenergic Agonist Start: 07-14-2021 take 4 mg by mouth at bedtime Tizanidine Active 4 MG PO Bedtime July 14, 2021 12:00am Start: 02-01-2021 take 1 tablet by siobhan th once daily at bedtime tiZANidine (Zanaflex) 4 mg tablet Take 1 tablet (4 mg) by mouth once daily at bedtime. 02/01/2021 Active Start: 02-01-2021 take 1 tablet [...] 0 Refills: 0 Ordered: 30-Apr-2021 DO Active predniSONE 10 mg oral tablet (16 sources) Start: 02-01-2021 predniSONE 10 MG Oral Tablet 1 TAB DAILR FIR 90 DAYS Quantity: 0 Refills: 0 Ordered: 01-Feb-2021 DO Start : 01-Feb-2021 Active Start: 11-30-2020 End: 04-09-2023 take 10 mg by mouth once daily Prednisone Discontinued 10 MG PO Daily July 16, 2021 12:00am April 09, 2023 11:12am Problems Active Problems Problem Classification Problem Date [...] disease (1 source) Atherosclerotic heart disease of [place] coronary artery without angina pectoris; Translations: [ASHD KAKE CA W/O ANGINA PECTORIS] Onset: 2 Chronic Cystic fibrosis (6 sources) Cystic fibrosis, unspecified; Translations: [Cystic fibrosis] [...] other medications] Episodic Other aftercare (2 sources) 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; 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] Onset: 2 Episodic Other and ill-defined heart disease (11 sources) Diastolic dysfunction; Translations: [Other ill-defined heart diseases] 04-08-2023 Chronic Other and ill-defined heart disease (6 sources) Other ill-defined heart diseases; Translations: [Heart disease, unspecified] Onset: 2 Resolved: 2 Chronic Other connective [...] Resolved: 2 Chronic Other lower respiratory disease (4 sources) Pulmonary fibrosis, unspecified; Translations: [Postinflammatory pulmonary fibrosis] Onset: 3 04-09-2023 Chronic Other lower respiratory disease (3 sources) Interstitial lung disease; Translations: [Interstitial pulmonary disease, unspecified] 04-09-2023 Chronic Other lower respiratory disease (18 sources) [...] conditions (not mental disorders or infectious disease) (20 sources) Electrocardiogram abnormal; Translations: [Nonspecific abnormal electrocardiogram [...] Spondylosis; intervertebral disc disorders; other back problems (12 sources) Spondylosis without myelopathy or radiculopathy, lumbar region; Translations: [Other intervertebral disc degeneration, lumbar region] Onset: 3 11-07-2022 Chronic Spondylosis; intervertebral disc disorders; other back problems (20 sources) Dorsalgia, unspecified; Translations: [Intervertebral disc disorders [...] Translations: [Interstitial pulmonary disease, unspecified] Onset: 4 Past or Other Problems Problem Classification Problem Date Documented Date Episodic/Chronic Cardiac dysrhythmias (20 sources) Sinus tachycardia; Translations: [Other specified cardiac dysrhythmias] Onset: 11-07-2022 Episodic Hyperplasia of prostate (1 source) Benign prostatic hypertrophy with outflow obstruction Resolved: 09-12-2018 11-23-2018 Chronic Nonspecific chest pain (3 sources) Other chest pain; Translations: [OTHER CHEST PAIN] Onset: 07-14-2021 Episodic Other aftercare (1 source) Other medical terminologist (current) drug therapy; Translations: [OTH 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 TRUCK 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 CURRENT DRUG THERAPY] Onset: 07-17-2021 Episodic Other circulatory disease (20 sources) Respiratory crackles; Translations: [Abnormal chest sounds] [...] without rupture, unspecified (CMS/HCC)] Onset: 12-09-2022 Unclassified (4 sources) Onset: 12-09-2022 12-09-2022 Results Test Name Value Interpretation Reference Range Facility US aorta 08-21-2023 US aorta [facility] [address] [place] [address] Ultrasound Report Signed Patient: Erik Morales MR#: [id number] : 1955 Acct:[id number] Age/Sex: 67 / M ADM Date: 08/21/23 Loc: [facility] Room: Type: [facility] Attending Dr: Bianka Garcia SHIFT COORDINATOR-C Ordering Provider: Bianka Garcia APRN Date of Service: 08/21/23 US/US aorta: I71.4 Copies to: Bianka Garcia APRN ULTRASOUND OF THE ABDOMINAL AORTA: CLINICAL INFORMATION: Renato aortic aneurysm. COMPARISON : 3.4 cm infrarenal abdominal aortic aneurysm based on ultrasound duplex from July 2022. TECHNIQUE AND FINDINGS: Multiple ultrasonographic scans of the abdominal aorta were obtained and show: Following measurement were obtained: Proximal height: 2.53 cm width : 2.12 cm Mid height: 2.78 cm width : 2.41 cm Distal height: 3.36 cm width : 2.96 cm US/US aorta IMPRESSION: Stable, small, 3.4 cm infrarenal abdominal aortic aneurysm without complicating features. Impression dictated by: Julian Matthews MD08/21/2023 2:21 PM Dictation Location: [place] [address] Tech: Elham Rivera Transcribed By: [facility] 08/21/23 1421 Dictated By: Julian Matthews MD 08/21/23 1419 Signed By: 08/21/23 1421 [facility] XR LUMBAR SPINE 2-3 VIEWSon 06-03-2023 XR LUMBAR SPINE 2-3 VIEWS Interpreted By: Curtis Meléndez, STUDY: XR LUMBAR SPINE 2-3 VIEWS; 06/03/2023 1:42 pm INDICATION: Signs/Symptoms:pain. ACCESSION NUMBER(S): [id number] ORDERING CLINICIAN: CURTIS MELÉNDEZ FINDINGS: AP lateral x-rays of the lumbar spine show an L3-4 lateral lumbar fusion with lateral plate and screw construct. Patient has instrumentation at L4-5 and L5-S1 with pedicle screws and stuffy plates. Interbody cage is present at L4-5. Posterolateral fusion masses present. There is moderate degenerative changes above the level of the fusion. Lumbar lordosis is maintained but decreased from normal. There is a scoliosis of 10 degrees of the lumbar spine. There is calcification and dilatation of the anterior aorta. Bony pelvis and hips are partially visualized on show multiple surgical clips in the pelvis. Signed by: Curtis Meléndez 06/03/2023 1:56 PM Dictation workstation: [id number] [facility] XR Lumbar spine 2 or 3 Views on 06-03-2023 Interpreted By: Curtis Love, STUDY: XR LUMBAR SPINE 2-3 VIEWS; 06/03/2023 1:42 pm INDICATION: Signs/Symptoms:pain. ACCESSION NUMBER(S): [id number] ORDERING CLINICIAN: CURTIS MELÉNDEZ FINDINGS: AP lateral x-rays of the lumbar spine show an L3-4 lateral lumbar fusion with lateral plate and screw construct. Patient has instrumentation at L4-5 and L5-S1 with pedicle screws and stuffy plates. Interbody cage is present at L4-5. Posterolateral fusion masses present. There is moderate degenerative changes above the level of the fusion. Lumbar lordosis is maintained but decreased from normal. There is a scoliosis of 10 degrees of the lumbar spine. There is calcification and dilatation of the anterior aorta. Bony pelvis and hips are partially visualized on show multiple surgical clips in the pelvis. Signed by: Curtis Meléndez 06/03/2023 1:56 PM Dictation workstation: [id number] [facility] Curtis Meléndez MD - 06/03/2023 Interpreted By: Curtis Meléndez, STUDY: XR LUMBAR SPINE 2-3 VIEWS; 06/03/2023 1:42 pm INDICATION: Signs/Symptoms:pain. ACCESSION NUMBER(S): [id number] ORDERING CLINICIAN: CURTIS MELÉNDEZ FINDINGS: AP lateral x-rays of the lumbar spine show an L3-4 lateral lumbar fusion with lateral plate and screw construct. Patient has instrumentation at L4-5 and L5-S1 with pedicle screws and stuffy plates. Interbody cage is present at L4-5. Posterolateral fusion masses present. There is moderate degenerative changes above the level of the fusion. Lumbar lordosis is maintained but decreased from normal. There is a scoliosis of 10 degrees of the lumbar spine. There is calcification and dilatation of the anterior aorta. Bony pelvis and hips are partially visualized on show multiple surgical clips in the pelvis. Signed by: Curtis Meléndez 06/03/2023 1:56 PM Dictation workstation: [id number] [facility] Work Phone: [facility] Work Phone: Radiology Study observation (narrative) [facility] Work Phone: CT chest wo con high reson 0 04-15-2023 CT chest wo con high res [facility] [place] [address] CT Scan Report Signed Patient: Erik Morales MR#: [id number] : 1955 Acct:[id number] Age/Sex: 67 / M ADM Date: 04/14/23 Loc: CT Room: Type: [facility] Attending Dr: Danna Mcdaniel APRN, ISATU Copies to: Danna Mcdaniel APRN, ISATU Ordering Provider: Danna Mcdaniel APRN, ACNP-BC Date of Service: 04/14/23 CT/CT chest wo con high res: J84.10 CT Chest high resolution without contrast TECHNIQUE: Axial imaging with 2-D reconstruction. The CT exam was performed using one or more the following dose reduction techniques: Automated exposure control, adjustment of the MA and/or Kv according to patient size, or use of the iterative reconstruction technique. History: Breathing problems. Pulmonary disease. COMPARISON: 12 03/21/2021 THYROID: Unremarkable TRACHEA AND BRONCHI: Central cylindrical bronchiectasis. ESOPHAGUS: Unremarkable. HEART: Within normal limits PERICARDIAL EFFUSION: None CORONARY ARTERY CALCIFICATION: None MEDIASTINUM: No adenopathy. No pneumoperitoneum. No mediastinal hematoma. Calcified mediastinal lymph nodes. PULMONARY WILLIE: No hilar mass or adenopathy is seen. Calcified hilar lymph nodes. THORACIC AORTA Unremarkable LUNG NODULE None LUNGS: Similar posterior basilar atelectasis/scarring with mild thickening of the interlobular septa present. No new findings. Central cylindrical bronchiectasis present. PLEURAL EFFUSION: None PNEUMOTHORAX: No pneumothorax seen. CHEST WALL: No abnormality AXILLA:Unremarkable BONY STRUCTURES and thoracic hyperostosis. Cervical spine fixation hardware. UPPER ABDOMEN: Images of the upper abdomen are noncontributory. CT/CT chest wo con high res IMPRESSION: Similar basilar interstitial changes. central cylindrical bronchiectasis. Impression dictated by: Christopher Cline M.D.04/15/2023 9:21 AM Dictation Location: [place] [address] Transcribed By: [facility] 04/15/23920 Dictated By: Christopher Cline DO 04/15/23 0904 Signed By: 04/15/23 09 Normal [facility] XR LUMBAR SPINE 2-3 VIEWSon 02-28-2023 XR LUMBAR SPINE 2-3 VIEWS Interpreted By: Curtis Meléndez, STUDY: XR LUMBAR SPINE 2-3 VIEWS; ; 02/28/2023 1:37 pm INDICATION: Signs/Symptoms:low back pain. ACCESSION NUMBER(S): [id number] ORDERING CLINICIAN: CURTIS MELÉNDEZ FINDINGS: AP lateral [...] Curtis Meléndez 02/28/2023 3:09 PM Dictation workstation: [id number] [facility] Lab Reportson 12-24-2022 Lab Reports [id number] [facility] Patient Educationon 12-24-19 Patient Education Oncology Prostate Cancer Screening Prostate [...] Where to find more information ? The [place] [employer]: www.cancer.org ? [place] [employer]: www.auanet.org Contact a health care [...] adds flu (more content not included)... Normal [facility] Physician Orderon 12-23-2022 Physician Order [id number] [facility] Urology Office/Clinic Noteon 12-23-2022 Urology Office/Clinic [...] URL [facility] [address], [place] [address]- [phone] Additional Instructions: 1 yr w/ PSA Patient Education Prostate Cancer Screening I, Skye Miller, personally scribed for Dr. Spear on 12/23/2022 11:57:50. . Documentation recorded by the gomezibSkye goodman, accurately reflects the services(s) I performed and [...] Dipstick: Negative (more content not included)... Normal [facility] Comment on above: Result Comment: Elec tronically Signed By: RAINER JIMENEZ, Marino R\.br\Date and Time Signed: 12/23/22 12:01 EDT\.br\Electronically Co-Signed By: Skye Miller\.br\Date and Time Co-Signed: 12/23/22 11:59 EDT Post Op (Orthopaedic Surgery )on 11-19-2022 Post Op (Orthopaedic Surgery) Orders Back pain Xray BN Spine, Lumbosacral; 2 or 3 Views; Status:Complete; Done: [id number] 02:21PM Radiologist to Determine Optimal Study : [...] Xray BN Spine, Lumbosacral; 2 or 3 [id number] 02:21PMCurtis Meléndez Test NameResultFlagReference Xray Lumbar Spine AP + Lateral(Report) FINAL REPORT Interpreted by: CURTIS MELÉNDEZ JON, MD 11/19/22 16:41 Patient Name: LANCERolyERIK SANTOYO STUDY: SPINE, LUMBOSACRAL; 2 OR 3 VIEWS; ; 11/19/2022 2:21 pm INDICATION: pain M54.9: Back pain. ACCESSION NUMBER(S): [id number] ORDERING CLINICIAN: CURTIS MELÉNDEZ FINDINGS: AP lateral x-rays of the lumbar spine show an L3-4 lateral lumbar fusion with lateral plate and cage configuration. Cage pl (more content not included)... Normal [facility] 11-19-2022 XR Lumbar spine AP and Lateral [facility]: SPINE, LUMBOSACRAL 2 OR 3 EWSon 11-19-2022 SPINE, LUMBOSACRAL 2 OR 3 VIEWS Patient Name: ERIK MORALES STUDY: SPINE, LUMBOSACRAL; 2 OR 3 VIEWS; ; 11/19/2022 2:21 pm INDICATION: pain M54.9: Back pain. ACCESSION NUMBER(S): [id number] ORDERING CLINICIAN: CURTIS MELÉNDEZ FINDINGS: AP lateral [...] Electronically signed by: CURTIS MELÉNDEZ MD Normal [facility] BASIC METABOLIC PANELon 10-25 Anion gap [Moles/Vol] 10 mmol/L Normal 10 - 20 [facility] Comment on above: Performed By: #### B MP #### [address] [id number] Calcium [Mass/Vol] 8.9 mg/dL Normal 8.6 - 10.3 [facility] Comment on above: Performed By: #### B MP #### [address] [id number] Chloride [Moles/Vol] 101 mmol/L Normal 98 - 107 [facility] Comment on above: Performed By: #### B MP #### [address] [id number] Creatinine [Mass/Vol] 1.15 mg/dL Normal 0.50 - 1.30 [facility] Comment on above: Performed By: #### B MP #### [address] [id number] GFR/1.73 sq M.predicted among non-blacks MDRD (S/P/Bld) [Vol rate/Area] 70 mL/min/{1.73_m2} Normal >90 [facility] Comment on above: Result Comment: CALC ULATIONS OF ESTIMATED GFR ARE PERFORMED USING THE 2020 CKD-EPI STUDY REFIT EQUATION WITHOUT THE RACE VARIABLE FOR THE IDMS-TRACEABLE CREATININE METHODS. https://jasn.asnjournals.org/content/early/ASN.7416148 988 Performed By: #### B MP #### [address] [id number] Glucose [Mass/Vol] 106 mg/dL High 74 - 99 [facility] Comment on above: Performed By: #### B MP #### [address] [id number] HCO3 (Bld) [Moles/Vol] 29 mmol/L Normal 21 - 32 [facility] Comment on above: Performed By: #### B MP #### [address] [id number] Potassium [Moles/Vol] 4.5 mmol/L Normal 3.5 - 5.3 [facility] Comment on above: Performed By: #### B MP #### [address] [id number] Sodium [Moles/Vol] 135 mmol/L Low 136 - 145 [facility] Comment on above: Performed By: #### B MP #### [address] [id number] Urea nitrogen [Mass/Vol] 13 mg/dL Normal 6 - 23 [facility] Comment on above: Performed By: #### B MP #### [address] [id number] Daily Progress Note-General Internal Medicineon 11-07-2022 Daily [...] intact. Objective Data: Objective Information: T PRBPMAPSpO2 [id number]% Date/Time11/07 8: 8: 8: 8: 21:0811/07 8:56 [...] laboratory results: Basic Metabolic Panel Trending View [id number] 10:23:00 06-Nov-2022 05:48:00 Glucose, [id number] H 95 NA135 L 138 K4.5 4.1 [...] discussed extensively with patient, RN and Ortho SHIFT COORDINATOR. Patient verbalized understanding through teach back method. All questions and concerns addressed upon examination. Of note, this documentation is completed using the [employer] Corporationation system (voice recognition software). There may be spelling and/or grammatical errors that were not corrected prior to final submission. Plan of Care Reviewed With: Plan of Care Reviewed With: patient Electronic Signatures: Heidy Escobar (AUTISM MOTOR SPECIALIST-LOSS PREVENTION ANALYST) (Signed 07-Nov-2022 14:59) Authored: Service, Subjective Data, Objective Data, Assessment and Plan, Note Completion Last Updated: 07-Nov-2022 14:59 by Heidy Escobar (AUTISM MOTOR SPECIALIST-LOSS PREVENTION ANALYST) Normal [facility] Daily Progress Note-Orthopae dicson 11-07-2022 Daily Progress Note-Orthopaedics Service: Orthopaedics Subjective Data: ERIK MORALES is a 67 year old Male who is Hospital Day # 4 and POD #3 for 1. ;2. ;3. ;4. ;5. Patient seen and examined this morning. No acute events overnight. Objective Data: Objective Information: T PRBPMAPSpO2 [id number]% Date/Time11/06 21: 21: 21: 21: 21: 21:08 [...] to home today Electronic Signatures: Gilda Mcmahon (AUTISM MOTOR SPECIALIST-LOSS PREVENTION ANALYST) (Signed 07-Nov-2022 08:00) Authored: Service, Subjective Data, Objective Data, Assessment and Plan, Note Completion Abner Maldonado) (Signed 07-Nov-2022 11:31) Co-Signer: Service, Subjective Data, Objective Data, Assessment and Plan, Note Completion Last Updated: 07-Nov-2022 11:31 by Abner Maldonado) [facility] - Chemistry and C hemistry - challengeon 11-07-2022 Anion gap [Moles/Vol] 10 mmol/L 10 - 20 -[facility] [place] Work Phone: Calcium [Mass/Vol] 8.9 mg/dL 8.6 - 10.[address] [facility] [place] Work Phone: Chloride [Moles/Vol] 101 mmol/L 98 - 107 [facility] [place] Work Phone: CO2 [Moles/Vol] 29 mmol/L 21 - 32 -[facility] [place] Work Phone: Creatinine [Mass/Vol] 1.15 mg/dL See Below -[facility] [place] Work Phone: Comment on above: Reference Range: 0.5 0 - 1.30 Glucose [Mass/Vol] 106 mg/dL above high threshold 74 - 99 -[facility] [place] Work Phone: Potassium [Moles/Vol] 4.5 mmol/L 3.5 - 5.3 -[facility] [place] Work Phone: Sodium [Moles/Vol] 135 mmol/L below low threshold 136 - 145 -[facility] [place] Work Phone: Urea nitrogen [Mass/Vol] 13 mg/dL 6 - 23 -[facility] [place] Work Phone: No Panel Informationon 11-07 70 {mL/min/1.73m2} >90 -[facility] Work Phone: Comment on above: CALCULATIONS OF MEGAN MATED GFR ARE PERFORMED USING THE 2020 CKD-EPI STUDY REFIT EQUATION WITHOUT THE RACE VARIABLE FOR THE IDMS-TRACEABLE CREATININE METHODS.https://jasn.asnjournals.org/content//ASN .8741126473 Order Reconciliationon 11-07 Order Reconciliation Page 1 Discharge Reconciliation Document Reconciliation Type: Discharge requested on behalf of Gilda Mcmahon (Advanced Practice Nurse-Admit) done by Gilda Mcmahon (AUTISM MOTOR SPECIALIST-LOSS PREVENTION ANALYST) Discharge - Reconciliation: 07-Nov-2022 09:21 by: Gilda Mcmahon (AUTISM MOTOR SPECIALIST-LOSS PREVENTION ANALYST) Home Medications EnteredHOME MEDICATIONS AT DISCHARGE DateReconciliation [...] oral tablet is not required Potassium Chloride (Qzb-Iwer-Ads 10) 10 mEq oral tablet, extended release 1 tab(s) orally once a day 21-Oct-2022 13:59 Potassium Chloride (Myc-Okoe-Kuk 10) 10 mEq oral tablet, extended release 1 tab(s) orally once a day 21-Oct-2022 13:59 Potassium Chloride (Eri-Fgzb-Svo 10) 10 mEq oral tablet, extended release is continued as Potassium Chloride (Jhj-Urpm-Prq 10) 10 mEq oral tablet, extended release [...] Lactated Ringers (more content not included)... Normal [facility] Rehab Note-home health occupational therapist apyon 11-07-2022 Rehab Note-occupational therapy Rehab: Info: Mode of Treatmentoccupational therapy Time IN07:31 Time OUT08:00 Total Treatment [id number] Patient in ... at end of sessionchair; [...] Mobility/Tone: Bed Mobility Assessment/Interventionssu pine to sit Zsgoig-pn-Vfw [place] (Bed Mobility)standby assist; verbal cues; nonverbal cues (demo/gesture) Comment, Bed MobilityEducated pt on log roll technique to maintain spinal precautions. Simulated home s/u and transferred towards right side. Transfer Assessment/Interventionssi t to stand transfer; stand to sit transfer; bed to chair transfer; toilet transfer; shower transfer Comment, TransfersMin verbal cues for hand placement with sit <>stand transfers. Bed-Chair [place] (Transfers)standby assist Bed-Chair Assistive Device (Transfers)walker, front-wheeled Sit-Stand [place] (Transfers)standby assist; Multiple sit <>stand transfers performed from various surfaces and surface heights. Pt benefits from elevated surfaces however is able to complete transfers from standard surface heights. Sit-Stand Assistive Device (Transfers)walker, front-wheeled Stand-Sit [place] (Transfers)standby assist Stand-Sit Assistive Device (Transfers)walker, front-wheeled Shower [place] (Transfers)Pt reports having shower chair at home which he has used prior to admission. Verbal education provided on safe transfer techniques. Pt also educated to have someone present with transfer for fall prevention. Toilet [place] (Transfers)standby assist Toilet Assistive Device (Transfer)grab bars/safety [...] Assessment/Interventionlow er body dressing; toileting; grooming; bathing [place] Level (Bathing)Pt educated on using a medical records supervisor to complete LB bathing vs purchasing a LH sponge. Verbal and visual education provided on technique from seated position on shower chair. Pt verbalized understanding. [place] Level (Lower Body Dressing)don; pants/bottoms; shoes/slippers Assistive Devices (Lower Body Dressing)medical records supervisor Comment (Lower Body Dressing)Reviewed education on use of medical records supervisor. Wilfredo pants while seated EOB with fair (+) balance. Pt donned LB clothing with SBA. Educated pt on how to use medical records supervisor to wilfredo slip on shoes. Pt reports brother can also assist with donning shoes. Pt educated to not walk in tedhose only, always wear shoes or non-slip socks [place] Level (Grooming)standby assist Position (Grooming)standing [place] Level (Toileting)standby assist Position (Toileting)sitting Skilled BADL Treatment/Interventionadap tive equipment training; BADL process/adaptation training; compensatory training; energy conservation Motor: Lno-co-Xixyy (Balance)F+ Standing, Static (Balance)F+ Standing, Dynamic (Balance)F+ [...] Score20 Short Term Goals: Functional Transfer: Established [id number]-[id number] Functional Transfer: Goal Detailspt will transfer to bed ,chair, toilet with modified indep Functional Transfer: Time Frame for Go (more content not included)... Normal [facility] Rehab Note-physical therapyo n 11-07-2022 Rehab Note-physical therapy Rehab: Info: Disciplinephysical therapist Mode of Treatmentphysical therapy Time IN08:16 Time OUT08:48 Total Treatment [id number] Patient in ... at end of sessionchair; alarm on Patient Effortexcellent Treatment Considerations/CommentsSer vices provided by Alta Velez SPT with direct supervision and guidance from [...] brace in place. PT placed hands over assembler trim on walker to cue pt of his [...] Score18 Short Term Goals: Bed Mobility: Date Sdurzvgxlfv95-Efi-4356 Bed Mobility: [place] Level Goalmodified independent; supine <> sidelying <> sitting Transfer: Established [id number]-Obv-9386 Transfer: Transfer Type Aydvdsk-tj-cvcxd/chair-to- bed; hmc-hv-dugre/iolly-oh-xko Transfer: [place] Level Goalmodified independent Transfer: Assistive Device Goalrolling walker Gait: Established Lxvu42-Fve-1410 Gait: [place] Level Goalmodified independent Gait: Assistive Device Goalrolling walker Gait: Distance [id number]' Education: Learnerpatient Barriers to Learningno barrier Methodverbal [...] home Outcome Summary: Predicted Duration of Therapy Udyslvphpefx33 days Progress: Physical Therapyprogress toward functional goals as expected Therapy Frequency (PT Eval)2 times/day Predicted Duration of Therapy Wodsgrfjfgnx54 days DC Recommendations: Discharge Recommendation (PT Eval)Pt would benefit from [facility] Electronic Signatures: Daniela Scott (PT) (Signed 07-Nov-2022 15:34) Co-Signer: Info, Mobility/Tone, Outcomes Tools, Short Term Goals, Education, Outcome Summary, DC Recommendations Fior Velez (SPT) (Signed 07-Nov-2022 13:43) Authored: Info, Mobility/Tone, Outcomes Tools, Short Term Goals, Education, Outcome Summary, DC Recommendations Last Updated: 07-Nov-2022 15:34 by Daniela Scott (PT) Normal [facility] BASIC METABOLIC PANELon 09-1 Anion gap [Moles/Vol] 9 mmol/L Low 10 - 20 [facility] Comment on above: Performed By: #### B MP #### [address] [id number] Calcium [Mass/Vol] 8.6 mg/dL Normal 8.6 - 10.3 [facility] Comment on above: Performed By: #### B MP #### [address] [id number] Chloride [Moles/Vol] 105 mmol/L Normal 98 - 107 [facility] Comment on above: Performed By: #### B MP #### [address] [id number] Creatinine [Mass/Vol] 1.37 mg/dL High 0.50 - 1.30 [facility] Comment on above: Performed By: #### B MP #### [address] [id number] GFR/1.73 sq M.predicted among non-blacks MDRD (S/P/Bld) [Vol rate/Area] 57 mL/min/{1.73_m2} Abnormal >90 [facility] Comment on above: Result Comment: CALC ULATIONS OF ESTIMATED GFR ARE PERFORMED USING THE 2020 CKD-EPI STUDY REFIT EQUATION WITHOUT THE RACE VARIABLE FOR THE IDMS-TRACEABLE CREATININE METHODS. https://jasn.asnjournals.org/content/early//ASN.3916513 988 Performed By: #### B MP #### [address] [id number] Glucose [Mass/Vol] 95 mg/dL Normal 74 - 99 [facility] Comment on above: Performed By: #### B MP #### [address] [id number] HCO3 (Bld) [Moles/Vol] 28 mmol/L Normal 21 - 32 [facility] Comment on above: Performed By: #### B MP #### [address] [id number] Potassium [Moles/Vol] 4.1 mmol/L Normal 3.5 - 5.3 [facility] Comment on above: Performed By: #### B MP #### [address] [id number] Sodium [Moles/Vol] 138 mmol/L Normal 136 - 145 [facility] Comment on above: Performed By: #### B MP #### [address] [id number] Urea nitrogen [Mass/Vol] 14 mg/dL Normal 6 - 23 [facility] Comment on above: Performed By: #### B MP #### [address] [id number] Daily Progress Note-General Internal Medicineon 11-06-2022 Daily [...] intact. Objective Data: Objective Information: T PRBPMAPSpO2 [id number]/621712% Date/Time11/06 8: 8: 8: 8: 8: 8:18 Range(36.2C - 37.4C ) (63 - 79 ) (16 - 18 ) (104 - 132 )/ (58 - 77 ) (76 - 97 ) (94% - 96% ) Highest temp of 37.4 C was recorded at 11/05 19:08 Pain reported at 11/06 7:23: sleeping ---- Intake and Output ----- Mn/Dy/Year TimeIntakeOutputNet Nov 06, 2022 6:00 [id number] Nov 05, 2022 10:00 [id number] Nov 05, 2022 2:00 [id number] The Intake and Output Totals for the last 24 hours are: IntakeOutputNet [id number] Physical Exam Narrative: Physical Exam: Constitutional: awake/alert/oriented [...] discussed extensively with patient, RN and Ortho SHIFT COORDINATOR. Patient verbalized understanding through teach back method. All questions and concerns addressed upon examination. Of note, this documentation is completed using the [employer] Dictation system (voice recognition software). There may be spelling and/or grammatical errors that were not corrected prior to final submission. Plan of Care Reviewed With: Plan of Care Reviewed With: patient Elec (more content not included)... Normal [facility] Daily Progress Note-Orthopae ibrahimason 11-06-2022 Daily Progress Note-Orthopaedics Service: Orthopaedics Subjective Data: ERIK MORALES is a 67 year old Male who is Hospital Day # 3 and POD #2 for 1. ;2. ;3. ;4. ;5. Overnight Events: Patient had an uneventful night. Objective Data: Objective Information: T PRBPMAPSpO2 [id number]/923519% Date/Time11/06 8: 8: 8: 8: 8: 8:18 Range(36.2C - 37.4C ) (63 - 79 ) (16 - 18 ) (104 - 132 )/ (58 - 77 ) (76 - 97 ) (94% - 96% ) Highest temp of 37.4 C was recorded at 11/05 19:08 Pain reported at 11/06 7:23: sleeping ---- Intake and Output ----- Mn/Dy/Year TimeIntakeOutputNet Nov 06, 2022 6:00 [id number] Nov 05, 2022 10:00 [id number] Nov 05, 2022 2:00 [id number] The Intake and Output Totals for the last 24 hours are: IntakeOutputNet [id number] T PRBPMAPSpO2 [id number]/122781% Date/Time11/06 8: 8: 8: 8: 8: 8:18 [...] bed -home today Electronic Signatures: Derrick Cunningham (AUTISM MOTOR SPECIALIST-LOSS PREVENTION ANALYST) (Signed 06-Nov-2022 09:07) Authored: Service, Subjective Data, Objective Data, Assessment and Plan, Note Completion Last Updated: 06-Nov-2022 09:07 by Derrick Cunningham (AUTISM MOTOR SPECIALIST-LOSS PREVENTION ANALYST) Normal [facility] Discharge Ornsugb7ed 023 Discharge Profile2 Discharge Orders: Anticipated Discharge Date: Anticipated Discharge [id number]-[id number] Anticipated Discharge Time12:00 Problem List: Admitting Dx: [...] Review of Medication Reconciliation and Orders Completedby AUTISM MOTOR SPECIALIST Reviewing ProviderFAINA Dwyer at 07-Nov-2022 09:17:40 Appointments: Follow-Up Appointment 01: Physician/Dept/ServiceDr. Meléndez Reason for Referralback Call to Schedule in2 weeks, please call ahead and schedule appointment [id number] [facility] Phone [phone] Electronic Signatures: Gilda Mcmahon (JESSICA-LOSS PREVENTION ANALYST) (Signed 07-Nov-2022 09:17) Authored: Discharge Orders, Home Care Orders, Provider FINAL REVIEW of Orders, Appointments, Gold Form - Wound Specialist Summary Last Updated: 07-Nov-2022 09:17 by Gilda Mcmahon (AUTISM MOTOR SPECIALIST-LOSS PREVENTION ANALYST) Normal [facility] Laboratory - Chemistry and C hemistry - challengeon 11-06-2022 Anion gap [Moles/Vol] 9 mmol/L below low threshold 10 - 20 [facility] [place] [facility]: Calcium [Mass/Vol] 8.6 mg/dL 8.6 - 10.[address] [facility] [place] Work [facility]: Chloride [Moles/Vol] 105 mmol/L 98 - 107 [facility] [place] Work [facility]: CO2 [Moles/Vol] 28 mmol[facility]L 21 - 32 [facility]: Creatinine [Mass/Vol] 1.37 mg/dL above high threshold See Below -[place] [facility] [place] Work [facility]: Comment on above: Reference Range: 0.5 0 - 1.30 Glucose [Mass/Vol] 95 mg/dL 74 - [address] [facility] [place] Work Phone: Potassium [Moles/Vol] 4.1 mmol/L 3.5 - 5.3 [facility] [place] Work Phone: Sodium [Moles/Vol] 138 mmol/L 136 - [address] [facility] [place] Work Phone: Urea nitrogen [Mass/Vol] 14 mg/dL 6 - 23 -[place] [facility] [place] Work Phone: MAGNESIUMon 11-06-2022 Magnesium [Mass/Vol] 2.06 mg/dL Normal 1.60 - 2.40 [facility] Comment on above: Performed By: #### M G #### [address] [id number] Magnesium, Serumon Magnesium [Mass/Vol] 2.06 mg/dL See Below [facility] Work [facility]: Comment on above: Reference Range: 1.6 0 - 2.40 No Panel Informationon 11-06 57 {mL/min/1.73m2} Abnormal >[address] [facility] [facility]: Comment on above: CALCULATIONS OF MEGAN MATED GFR ARE PERFORMED USING THE 2020 CKD-EPI STUDY REFIT EQUATION WITHOUT THE RACE VARIABLE FOR THE IDMS-TRACEABLE CREATININE METHODS.https://jasn.asnjournals.org/content//ASN .5464203716 Rehab Note-home health occupational therapist rohit 11-06-2022 Rehab Note-occupational therapy Rehab: Info: Mode of Treatmentoccupational therapy Time IN10:20 Time OUT10:58 Total Treatment [id number] Patient in ... at end of sessionchair; [...] sitting on sofas and armless chairs. Sit-Stand [place] (Transfers)contact guard Sit-Stand Assistive Device (Transfers)walker, front-wheeled Stand-Sit [place] (Transfers)contact guard Stand-Sit Assistive Device (Transfers)walker, front-wheeled Toilet [place] (Transfers)contact guard Toilet Assistive Device (Transfer)grab bars/safety [...] alignment. UB bathing and dressing with SBA [place] Level (Lower Body Dressing)don; pants/bottoms; shoes/slippers; minimum assist (75% patient effort) Assistive Devices (Lower Body Dressing)medical records supervisor Comment (Lower Body Dressing)Pt educated on use of medical records supervisor and sock aid for LB dressing with fair understanding and return demonstration. [place] Level (Grooming)contact guard Comment (Grooming)Pt performed G/H tasks in stance at sink with fair balance x 2 1/2 min Motor: Gno-hl-Efjrz (Balance)fair balance Standing, Static (Balance)fair balance Standing, [...] Score18 Short Term Goals: Functional Transfer: Established Gavp63-Ytd-8338 Functional Transfer: Goal Detailspt will transfer to bed ,chair, toilet with modified indep Functional Transfer: Time Frame for Goal2 wks Balance: Established Balance: Goal DetailsPt will demo fair + dyn std balance with ADLS Balance: Time Frame for Goal2 wks Upper Body Dressing: Established Upper Body Dressing: [place] Level Goalstand-by assist Upper Body Dressing: Time Frame for Goal2 wks Lower Body Dressing: Established Lower Body Dressing: [place] Level Goalminimum assist (75% patients effort) Lower Body Dressing: Time Frame for Goal2 wks Following Precautions: Established Ykzj82-Dub-0129 Following Precautions: Goal Detailspt will verbalize and [...] to d (more content not included)... Normal [facility] Rehab Note-physical therapyo n 11-06-2022 Rehab Note-physical therapy Rehab: Info: Disciplinephysical therapist Mode of Treatmentphysical therapy Time IN13:41 Time OUT14:07 Total Treatment [id number] Patient in ... at end of sessionbed, 3 railings up; alarm on Patient Effortexcellent Treatment Considerations/CommentsSer vices provided by Alta Velez SPT with direct supervision and guidance from [...] Score18 Short Term Goals: Bed Mobility: Date Oobxyrpkhhg01-Bai-0277 Bed Mobility: [place] Level Goalmodified independent; supine <> sidelying <> sitting Transfer: Established Ewtg86-Zwb-6334 Transfer: Transfer Type Bntslhh-oh-qlhgn/chair-to- bed; ipc-iz-nzgon/mgbht-mv-fkb Transfer: [place] Level Goalmodified independent Transfer: Assistive Device Goalrolling walker Gait: Established Onay87-Zny-5210 Gait: [place] Level Goalmodified independent Gait: Assistive Device Goalrolling walker Gait: Distance Bvbn310' Education: Learnerpatient Barriers to Learningno barrier Methodverbal [...] home Outcome Summary: Predicted Duration of Therapy Fuuwcjilposx09 days Progress: Physical Therapyprogress toward functional goals as expected Therapy Frequency (PT Eval)2 times/day Predicted Duration of Therapy Excljawzanof02 days DC Recommendations: Discharge Recommendation (PT Eval)Pt would benefit from [facility] Electronic Signatures: Daniela Scott (PT) (Signed 07-Nov-2022 03:43) Co-Signer: Info, Mobility/Tone, Motor, Sensory, Outcomes Tools, Short Term Goals, Education, Outcome Summary, DC Recommendations Fior Velez (SPT) (Signed 06-Nov-2022 14:31) Authored: Info, Mobility/Tone, Motor, Sensory, Outcomes Tools, Short Term Goals, Education, Outcome Summary, DC Recommendations Last Updated: 07-Nov-2022 03:43 by Daniela Scott (PT) [facility] Rehab Note-physical therapy Rehab: Info: Mode of Treatmentphysical therapy Time IN09:36 Time OUT10:17 Total Treatment Pkrizey68 Patient in ... at end of sessionchair; alarm on Patient Effortgood Symptoms Noted During/After Treatmentfatigue Treatment Considerations/CommentsSer vices provided by Alta Velez SPT with direct supervision and guidance from [...] Score18 Short Term Goals: Bed Mobility: Date Xaybvhbubnw20-Aaa-4225 Bed Mobility: [place] Level Goalmodified independent; supine <> sidelying <> sitting Transfer: Established Cdfg55-Zld-3758 Transfer: Transfer Type Fqycqsu-ld-bblhx/chair-to- bed; xqu-jc-qeuth/evbsw-ai-lkc Transfer: [place] Level Goalmodified independent Transfer: Assistive Device Goalrolling walker Gait: Established Qqke00-Yna-8478 Gait: [place] Level Goalmodified independent Gait: Assistive Device Goalrolling walker Gait: Distance Eioi873' Education: Learnerpatient Methodverbal Topicrehab plan of care; precautions; discharge recommendations including destination and/or equipment; fall prevention Education - Topicproper use of FWW for transfers and gait to reduce the risk of fall, reviewed spinal precautions and body mechanics for getting in and out of bed, concerns for discharging home Outcome Summary: Predicted Duration of Therapy Gagzgsjlcwfj70 days Progress: Physical Therapyprogress towards functional goals is fair Therapy Frequency (PT Eval)2 times/day Predicted Duration of Therapy Dadqrwresmif32 days DC Recommendations: Discharge Recommendation (PT Eval)Pt would benefit from [facility] Electronic Signatures: Daniela Scott (PT) (Signed 07-Nov-2022 03:43) Co-Signer: Info, Mobility/Tone, Outcomes Tools, Short Term Goals, Education, Outcome Summary, DC Recommendations Fior Velez (SPT) (Signed 06-Nov-2022 14:30) Authored: Info, Mobility/Tone, Outcomes Tools, Short Term Goals, Education, Outcome Summary, DC Recommendations Last Updated: 07-Nov-2022 03:43 by Daniela Scott (PT) Normal [facility] BASIC METABOLIC PANELon 09- Anion gap [Moles/Vol] 12 mmol/L Normal 10 - 20 [facility] Comment on above: Performed By: #### B MP #### [address] [id number] Calcium [Mass/Vol] 8.8 mg/dL Normal 8.6 - 10.3 [facility] Comment on above: Performed By: #### B MP #### [address] [id number] Chloride [Moles/Vol] 101 mmol/L Normal 98 - 107 [facility] Comment on above: Performed By: #### B MP #### [address] [id number] Creatinine [Mass/Vol] 1.75 mg/dL High 0.50 - 1.30 [facility] Comment on above: Performed By: #### B MP #### [address] [id number] GFR/1.73 sq M.predicted among non-blacks MDRD (S/P/Bld) [Vol rate/Area] 42 mL/min/{1.73_m2} Abnormal >90 [facility] Comment on above: Result Comment: CALC ULATIONS OF ESTIMATED GFR ARE PERFORMED USING THE 2020 CKD-EPI STUDY REFIT EQUATION WITHOUT THE RACE VARIABLE FOR THE IDMS-TRACEABLE CREATININE METHODS. https://jasn.asnjournals.org/content//ASN.3745138 988 Performed By: #### B MP #### [address] [id number] Glucose [Mass/Vol] 131 mg/dL High 74 - 99 [facility] Comment on above: Performed By: #### B MP #### [address] [id number] HCO3 (Bld) [Moles/Vol] 26 mmol/L Normal 21 - 32 [facility] Comment on above: Performed By: #### B MP #### [address] [id number] Potassium [Moles/Vol] 4.0 mmol/L Normal 3.5 - 5.3 [facility] Comment on above: Performed By: #### B MP #### [address] [id number] Sodium [Moles/Vol] 135 mmol/L Low 136 - 145 [facility] Comment on above: Performed By: #### B MP #### [address] [id number] Urea nitrogen [Mass/Vol] 14 mg/dL Normal 6 - 23 [facility] Comment on above: Performed By: #### B MP #### [address] [id number] CBCon 11-05-2022 Erythrocyte distribution width (RBC) [Ratio] 13.4 % Normal 11.5 - 14.5 [facility] Comment on above: Performed By: #### C BC #### [address] [id number] Hematocrit (Bld) [Volume fraction] 43.6 % Normal 41.0 - 52.0 [facility] Comment on above: Performed By: #### C BC #### [address] [id number] Hemoglobin (Bld) [Mass/Vol] 14.3 g/dL Normal 13.5 - 17.5 [facility] Comment on above: Performed By: #### C BC #### [address] [id number] MCHC (RBC) [Mass/Vol] 32.8 g/dL Normal 32.0 - 36.0 [facility] Comment on above: Performed By: #### C BC #### [address] [id number] MCV (RBC) [Entitic vol] 96 fL Normal 80 - 100 [facility] Comment on above: Performed By: #### C BC #### [address] [id number] Platelets (Bld) [#/Vol] 244 10*3/uL Normal 150 - 450 [facility] [facility] Comment on above: Performed By: #### C BC #### [address] [id number] RBC 4.54 x10E12/L Normal 4.50 - 5.90 [facility] Comment on above: Performed By: #### C BC #### [address] [id number] WBC (Bld) [#/Vol] 16.4 10*3/uL High 4.4 - 11.3 [facility] Comment on above: Performed By: #### C BC #### [address] [place] [id number] Daily Progress Note-General Internal Medicineon 11-05-2022 Daily [...] intact. Objective Data: Objective Information: T PRBPMAPSpO2 [id number]/811764% Date/Time11/05 7: 0: 0: 7: 7: 7:33 [...] ----- Mn/Dy/Year TimeIntakeOutputNet Nov 05, 2022 6:00 [id number] Nov 04, 2022 10:00 [id number] Nov 04, 2022 2:00 [id number] The Intake and Output Totals for the last 24 hours are: IntakeOutputNet [id number] Physical Exam Narrative: Physical Exam: Constitutional: awake/alert/oriented [...] interview, assessm (more content not included)... Normal [facility] Daily Progress Note-Orthopae ibrahimason 11-05-2022 Daily Progress Note-Orthopaedics Service: Orthopaedics Subjective Data: ERIK MORALES is a 67 year old Male who is Hospital Day # 2 and POD #1 for 1. ;2. ;3. ;4. ;5. Overnight Events: Patient had an uneventful night. Objective Data: Objective Information: T PRBPMAPSpO2 [id number]/103521% Date/Time11/05 7: 0:40912 0:40912 7:339 7:339 7:33 Range(36.1C - 36.8C ) (62 - 79 ) (16 - 20 ) (119 - 144 )/ (70 - 85 ) (92 - 101 ) (95% - 97% ) As of 04-Nov-2022 19:50:00, patient is on 2 L/min of oxygen via nasal cannula. Pain reported at 11/05 7:33: 2 = Mild ---- Intake and Output ----- Mn/Dy/Year TimeIntakeOutputNet Nov 05, 2022 6:00 [id number] Nov 04, 2022 10:00 [id number] Nov 04, 2022 2:00 [id number] The Intake and Output Totals for the last 24 hours are: IntakeOutputNet [id number] T PRBPMAPSpO2 Value36.84725092/833375% Date/Time11/05 7: 0:409 0:40912 7: 7: 7:33 Range(36.1C - 36.8C ) [...] out of bed Electronic Signatures: Derrick Cunningham (AUTISM MOTOR SPECIALIST-LOSS PREVENTION ANALYST) (Signed 05-Nov-2022 08:16) Authored: Service, Subjective Data, Objective Data, Assessment and Plan, Note Completion Curtis Maldonado) (Signed 05-Nov-2022 09:30) Co-Signer: Service, Subjective Data, Objective Data, Assessment and Plan, Note Completion Last Updated: 05-Nov-2022 09:30 by Curtis Maldonado) [facility] Laboratory - Chemistry and C hemistry - challengeon 11-05-2022 Anion gap [Moles/Vol] 12 mmol/L 10 - 20 -[facility] [place] Work Phone: Calcium [Mass/Vol] 8.8 mg/dL 8.6 - 10.[address] [facility] [place] Work Phone: Chloride [Moles/Vol] 101 mmol/L 98 - 107 [facility] [place] Work Phone: CO2 [Moles/Vol] 26 mmol/L 21 - 32 -[facility] [place] Work Phone: Creatinine [Mass/Vol] 1.75 mg/dL above high threshold See Below -[facility] [place] Work Phone: Comment on above: Reference Range: 0.5 0 - 1.30 Glucose [Mass/Vol] 131 mg/dL above high threshold 74 - 99 -[facility] [place] Work Phone: Potassium [Moles/Vol] 4.0 mmol/L 3.5 - 5.3 -[facility] [place] Work Phone: Sodium [Moles/Vol] 135 mmol/L below low threshold 136 - 145 -[facility] [place] Work Phone: Urea nitrogen [Mass/Vol] 14 mg/dL 6 - 23 -[facility] [place] Work Phone: Laboratory - Hematology and Cell countson 11-05-2022 Erythrocyte distribution width (RBC) [Ratio] 13.4 % See Below [facility] [place] Work Phone: [phone] Comment on above: Reference Range: 11. 5 - 14.5 Hematocrit (Bld) [Volume fraction] 43.6 % See Below [facility] [place] Work Phone: [phone] Comment on above: Reference Range: 41. 0 - 52.0 Hemoglobin (Bld) [Mass/Vol] 14.3 g/dL See Below [facility] [place] Work Phone: Comment on above: Reference Range: 13. 5 - 17.5 MCHC (RBC) [Mass/Vol] 32.8 g/dL See Below [facility] [place] Work Phone: Comment on above: Reference Range: 32. 0 - 36.0 MCV (RBC) [Entitic vol] 96 fL 80 - [address] [facility] [place] Work Phone: [phone] Platelets (Bld) [#/Vol] 244 10*3/uL 150 - [address] [facility] [place] Work Phone: RBC (Bld) [#/Vol] 4.54 {x10E12/L} See Below [facility] Work Phone: Comment on above: Reference Range: 4.5 0 - 5.90 WBC (Bld) [#/Vol] 16.4 10*3/uL above high threshold 4.4 - 11.[address] [facility] [place] Work Phone: No Panel Informationon 11-05 42 {mL/min/1.73m2} Abnormal >90 [facility] [place] Work Phone: [phone] Comment on above: CALCULATIONS OF MEGAN MATED GFR ARE PERFORMED USING THE 2020 CKD-EPI STUDY REFIT EQUATION WITHOUT THE RACE VARIABLE FOR THE IDMS-TRACEABLE CREATININE METHODS.https://jasn.asnjournals.org/content/early//ASN .5579720145 OT Evaluation v2-occupationa l therapyon 11-05-2022 OT Evaluation v2-occupational therapy Rehab: Info: Mode of Treatmentoccupational therapy Time IN07:41 Time OUT08:05 Total Treatment Minutes0 Patient Effortgood Symptoms Noted During/After Treatmentnone Patient Profile Reviewedyes Onset of Illness/Injury or Date of Slzfwmb84-Hoa-1597 Reason for ReferralL2-3, L3-4 lami, L3-4 lateral [...] with CGA with ww ADL: BADL Assessment/Interventionfee ding indep grooming indep UB ADLs min A to don back brace LB ADLS mod A to don underwear and pants using recaher toileting CGA Motor: Sitting, Static (Balance)good balance Sitting, Dynamic (Balance)good balance Pav-ca-Qhugx (Balance)good balance Standing, Static (Balance)fair balance Standing, Dynamic (Balance)fair balance Sensory: Pre-Treatment Pain Rating3/10 Post-Treatment Pain Rating3/10 Comment, Pre/Post Treatment Painlow back pain Sensory General Assessmentno sensation deficits identified Impression: Criteria for Skilled Therapeutic Interventions Met (OT Eval)treatment indicated OT DiagnosisADL impairment Rehab Potential (OT Eval)good, to achieve stated therapy goals Therapy Frequency (OT Eval)2 times/wk Predicted Duration of Therapy Tgnjeqhcgbbw30 days Functional Limitations in Following Categoriesself-care Planned [...] Score16 Short Term Goals: Functional Transfer: Established [id number]-3177 Functional Transfer: Goal Detailspt will transfer to bed ,chair, toilet with modified indep Functional Transfer: Time Frame for Goal2 wks Balance: Established Yzgo72-Gty-5616 Balance: Goal DetailsPt will demo fair + dyn std balance with ADLS Balance: Time Frame for Goal2 wks Upper Body Dressing: Established Upper Body Dressing: [place] Level Goalstand-by assist Upper Body Dressing: Time Frame for Goal2 wks Lower Body Dressing: Established Lower Body Dressing: [place] Level Goalminimum assist (75% patients effort) Lower Body Dressing: Time Frame for Goal2 wks Following Precautions: Established Cmok32-Dkb-0432 Following Precautions: Goal Detailspt will verbalize and [...] Updated: 05-Nov-2022 09:56 by Marianna Hayes (OT) Katerina [facility] PT Evaluation v2-physical th erajoseon 11-05-2022 PT Evaluation v2-physical therapy Rehab: Info: Mode of Treatmentphysical therapy Time IN07:45 Time OUT08:05 Patient in ... at end of sessionchair; alarm on Patient Effortgood Patient Profile Reviewedyes Onset of Illness/Injury or Date of Gauyebc80-Dyf-8909 Reason for ReferralSurgery 11.04.2022 L3-4 lateral interbody [...] Static (Balance)good balance Sitting, Dynamic (Balance)fair balance Eqp-jp-Qmqii (Balance)fair + Standing, Static (Balance)fair + Standing, [...] (PT Eval)2 times/day Predicted Duration of Therapy Pyajielhfphj81 days Outcomes Tools: Turning from your back [...] in hosp (more content not included)... Normal [facility] Rehab Note-physical therapyo n 11-05-2022 Rehab Note-physical therapy Rehab: Info: Disciplinephysical director child abuse therapy Mode of Treatmentphysical therapy Time IN14:19 Time OUT14:44 Total Treatment [id number] Patient in ... at end of sessionbed, [...] Score18 Short Term Goals: Bed Mobility: Date Koiaozzdodw59-Vkm-4495 Bed Mobility: [place] Level Goalmodified independent; supine <> sidelying <> sitting Transfer: Established Ybuq28-Txj-0389 Transfer: Transfer Type Lznuaxx-jb-bsfbi/chair-to- bed; edr-tb-ipwej/pafjd-vt-ktv Transfer: [place] Level Goalmodified independent Transfer: Assistive Device Goalrolling walker Gait: Established Zhvs85-Fci-1160 Gait: [place] Level Goalmodified independent Gait: Assistive Device Goalrolling walker Gait: Distance Nkxn811' Education: Learnerpatient; family member Methodverbal Outcome Evaluation1=partially meets; needs review Education - Topicpt able to recall spinal precautions , Able to don and doff TLSO brace Outcome Summary: Progress: Physical Therapyprogress toward functional goals as expected Electronic Signatures: Kelsea Cueto (GAS SCRUBBER OPERATOR) (Signed 05-Nov-2022 16:34) Authored: Info, Mobility/Tone, Sensory, Outcomes Tools, Short Term Goals, Education, Outcome Summary Daniela Scott (PT) (Signed 06-Nov-2022 03:32) Co-Signer: Info, Mobility/Tone, Sensory, Outcomes Tools, Short Term Goals, Education, Outcome Summary Last Updated: 06-Nov-2022 03:32 by Daniela Scott (PT) Normal [facility] Admission Risk Screen - Adul ton 11-04-2022 Admission Risk Screen - Adult Allergies: Intolerances: nitroglycerin: Unknown Patient Verification: New W ID Band Applied in my Departmentno Type of ID Patient is WearingW wristband, but not applied here Patient Transferred from Other [facility] ([facility])no Patient Identity Verified Bypatient ID Band FULL [...] AlertFor Ebola-like Symptoms: Isolate Patient and Notify Provider/Carroting Machine Operator For Contact: Notify Provider/Carroting Machine Operator Advance Directive: Advance Directive/DNRyes Advance Directive typeLiving Will, Durable Power of Sprayer Operator for Healthcare Living Will AvailabilityLiving Will not available now Living Will Uthmprntn56-Sai-4911 Durable Power of Sprayer Operator AvailabilityDPOA not available now Durable Power of Sprayer Operator Gfsbwneet27-Haq-9507 Durable Power of Sprayer Operator contact (name and number)Dana [phone] [place] Fall Screen: History of falling (immediate or previous)yes (25) Secondary Diagnosisyes (15) Intravenous Therapy/ Heparin/Saline Lockyes (20) Gait/Transferringweak (10) Ambulatory Aidscrutches/walker/cane (15) Mental Statusoriented to own ability (0) Score: Low risk (<25). Moderate risk (25-44). High risk (>44).85 Esthela InterventionsHIGH INTERVENTIONS *Low and Moderate Interventions Plus: [...] instruction; skill demonstration Cultural Considerationsnone Developmental Considerationsnone Episcopal Considerationsnone Learning Assessment (Other Learner): Other learner availableno Depression Screen: During the past month, have you often been bothered by feeling down, depressed or hopelessno During the past month, have you often had little interest or pleasure in doing thingsno Have you had any thoughts of harming anyone elseno [place] Suicide: Risk Screen Not Applicable/Able to Answerable to be screened In the Past Month: Have you wished you were or could go to sleep and not wake upno In the Past Month: Have you had any actual thoughts of killing yourselfno Lifetime: Have you ever done, started to do, or prepared to do anything to end your lifeno [place] Suicide Risknegative Adult Nutrition Screen: Have you [...] (frequency/quality)frequen t; (more content not included)... Normal [facility] Consult-General Internal Med sotero 11-04-2022 Consult-General [...] nitroglycerin: Unknown Objective: Objective Information: T PRBPMAPSpO2 Value36.77555368/0848438% Date/Time11/04 15: 15: 15: 15: 15: 15:32 [...] to b (more content not included)... Normal [facility] Discharge Planning Qndx8ha 0 11-04-2022 Discharge Planning Note2 Discharge Planning: Planned Dispositionhome Discharge Destinationhome [place] of Choice Explainedyes Anticipated Discharge Puxw70-Khw-5433 Discharge Planning 11/04/22 @ 1508 hours: Received social work consult for dc planning. Reviewed chart, no social work needs identified. TCC to follow for assessment and discharge planning. TCC will reconsult Social Work if any social work needs should arise. TanyaAME Becerra 11/05/22 1142 TC NOTE: Met with pt [...] he is independent of ADLs and IADLs GAS SCRUBBER OPERATOR and does not use AD. Drives. Pt plans to dc home. CT team will continue to monitor care progression and potential dc needs. Darya Jay RN TCC 11/06/22 0900 TCC UPDATE: [facility] [address] score is PT (18) OT (16), PT recommends home no further PT needs. Per rounding report with David Cunningham CNP and team, pt is s/p Lami fusion and dura tear, pt has lumbosacral brace, will DC marian no needs, ADOD today vs tomorrow. CT team will continue monitoring case for progression and potential DC needs. Sultana Jones RN TCC. Assessment: Discharge Planning Assessment Tlur95-Ywh-1884 Primary Contact Name and NumberDale (brother) [phone] Lives Withsibling(s) Living Arrangementshouse PCPHoy [facility] Anticipated at Transitionnone InsuranceDevoted Anticipated Changes Related to Illnessnone Equipment Needed After Dischargenone Anticipated Discharge Facility/Level of Care Needs.Home Discharge Documentation: Code StatusCode Status order at time of discharge: Full Code Electronic Signatures: Darya Jay (MARGAUX) (Signed 05-Nov-2022 15:16) Authored: Discharge Planning, Assessment Seman, Tanya () (Signed 04-Nov-2022 15:08) Authored: Discharge Planning, Assessment Sultana Jones (CLIN COOR) (Signed 06-Nov-2022 15:26) Authored: Discharge Planning, Discharge Documentation Last Updated: 06-Nov-2022 15:26 by Sultana Jones (CLIN COOR) [facility] Order Reconciliationon 11-04 Order Reconciliation Page 1 Admission Reconciliation Document Reconciliation Type: Admission requested on behalf of Heidy Escobar (Advanced Practice Nurse) done by Heidy Escobar ([facility]) Admission - Partial Reconciliation: 04-Nov-2022 15:50 by: Heidy Escobar ([facility]) Admission - Reconciliation: 04-Nov-2022 15:50 by: Heidy Escobar ([facility]) Home MedicationsEnteredLast Dose TakenReconciled with current Order Reconciliation Comment/ Additional Information atorvastatin 40 mg oral tablet 1 tab(s) orally once a day (at bedtime) [id number]-8746 PM Atorvastatin Tablet (LIPITOR)DOSE = 40 mg Oral At Bedtimeatorvastatin 40 mg oral tablet continued as the inpatient order Atorvastatin baclofen 10 mg oral tablet 1 tab(s) orally once a sed91-Add-131492-Bnn-5475 PM Reviewed and Held Eliquis 5 mg oral tablet 1 tab(s) orally 2 times a day---AWARE TO HOLD PRIOR TO PROCEDURE Reviewed and Held furosemide 20 mg oral tablet 1 tab(s) orally once a gyt58-Fmq-908948-Had-0761 AM Furosemide Tablet (LASIX)DOSE = 20 mg Oral Dailyfurosemide 20 mg oral tablet is continued and suspended as Furosemide lisinopril 20 mg oral tablet 1 tab(s) orally once a jiq65-Whz-862009-Opa-6669 PM Lisinopril Tablet (PRINIVIL, ZESTRIL)DOSE = 20 mg Oral Dailylisinopril 20 mg oral tablet is continued and suspended as Lisinopril metoprolol tartrate 25 mg oral tablet 1 tab(s) orally 2 times a day---AWARE TO TAKE MORNING OF PROCEDUE WITH A SIP OF CJTDD66-Rbs-291661-Esl-181 3 02:30 AM Reviewed and Held Multiple Vitamins oral tablet 1 tab(s) orally once a sxs37-Bgq-555604-Nov-2022 AM Multivitamin with Minerals TabletDOSE = 1 tablet(s) Oral Daily Multiple Vitamins oral tablet continued as the inpatient order Multivitamin with Minerals nortriptyline 25 mg oral capsule orally once a gko53-Rtu-605084-Kqs-8911 PM Nortriptyline Capsule (PAMELOR)DOSE = 25 mg [...] tab(s) orally 2 times a day, As Ehutrl14-Chu-276033-Hyr-62 23 Reviewed and Held Potassium Chloride (Gdl-Gdra-Qje 10) 10 mEq oral tablet, extended release 1 tab(s) orally once a ymc41-Pls-089211-Pdr-5701 PM Reviewed and Held Additional Current Orders [...] 12 HoursRecommended Infusion Time: 60 minute(s) Normal [facility] Radiologyon 11-04-2022 Fluoroscopy duration Please click on the link to view the study images Normal [facility] [facility] Work Phone: Established Visit (Orthopaed [...] instructions were (more content not included)... Normal [facility] APTTon 10-21-2022 aPTT Coag (Bld) [Time] 34 s Normal 27 - 38 [facility] Comment on above: Result Comment: Note new reference range as of 08/13/2022 at 10:00am. Performed By: #### A PTT #### [address] [id number] Activated Partial Thrombopla stin Timeon 10-21-2022 aPTT Coag (PPP) [Time] 34 s 27 - 38 [facility] Work Phone: Comment on above: Note new reference r jana as of 08/13/2022 at 10:00am. CBC AND DIFFERENTIALon 10-21 % AUTOMATED IMMATURE GRAN 0.3 % Normal 0.0 - 0.9 [facility] Comment on above: Result Comment: Jovanna ture Granulocyte Count (IG) includes promyelocytes, myelocytes and metamyelocytes but does not include bands. Percent differential counts (%) should be interpreted in the context of the absolute cell counts (cells/L). Performed By: #### C BCDF #### [address] [id number] Basophils (Bld) [#/Vol] 0.11 10*3/uL High 0.00 - 0.10 [facility] Comment on above: Performed By: #### C BCDF #### [address] [id number] Basophils/100 WBC (Bld) 1.2 % Normal 0.0 - 2.0 [facility] Comment on above: Performed By: #### C BCDF #### [address] [id number] Eosinophils (Bld) [#/Vol] 0.21 10*3/uL Normal 0.00 - 0.70 [facility] Comment on above: Performed By: #### C BCDF #### [address] [id number] Eosinophils/100 WBC (Bld) 2.2 % Normal 0.0 - 6.0 [facility] Comment on above: Performed By: #### C BCDF #### [address] [id number] Erythrocyte distribution width (RBC) [Ratio] 13.5 % Normal 11.5 - 14.5 [facility] Comment on above: Performed By: #### C BCDF #### [address] [id number] Hematocrit (Bld) [Volume fraction] 44.9 % Normal 41.0 - 52.0 [facility] Comment on above: Performed By: #### C BCDF #### [address] [id number] Hemoglobin (Bld) [Mass/Vol] 14.8 g/dL Normal 13.5 - 17.5 [facility] Comment on above: Performed By: #### C BCDF #### [address] [id number] Lymphocytes (Bld) [#/Vol] 1.28 10*3/uL Normal 1.20 - 4.80 [facility] Comment on above: Performed By: #### C BCDF #### [address] [id number] Lymphocytes/100 WBC (Bld) 13.6 % Normal 13.0 - 44.0 [facility] Comment on above: Performed By: #### C BCDF #### [address] [id number] MCHC (RBC) [Mass/Vol] 33.0 g/dL Normal 32.0 - 36.0 [facility] Comment on above: Performed By: #### C BCDF #### [address] [id number] MCV (RBC) [Entitic vol] 94 fL Normal 80 - 100 [facility] Comment on above: Performed By: #### C BCDF #### [address] [id number] Monocytes (Bld) [#/Vol] 0.72 10*3/uL Normal 0.10 - 1.00 [facility] Comment on above: Performed By: #### C BCDF #### [address] [id number] Monocytes/100 WBC (Bld) 7.7 % Normal 2.0 - 10.0 [facility] Comment on above: Performed By: #### C BCDF #### [address] [id number] Neutrophils (Bld) [#/Vol] 7.04 10*3/uL Normal 1.20 - 7.70 [facility] Comment on above: Performed By: #### C BCDF #### [address] [id number] Neutrophils/100 WBC (Bld) 75.0 % Normal 40.0 - 80.0 [facility] Comment on above: Performed By: #### C BCDF #### [address] [id number] Platelets (Bld) [#/Vol] 251 10*3/uL Normal 150 - 450 [facility] Comment on above: Performed By: #### C BCDF #### [address] [id number] RBC 4.78 x10E12/L Normal 4.50 - 5.90 [facility] Comment on above: Performed By: #### C BCDF #### [address] [id number] WBC (Bld) [#/Vol] 9.4 10*3/uL Normal 4.4 - 11.3 [facility] Comment on above: Performed By: #### C BCDF #### [address] [id number] COMPREHENSIVE PANELon 2022 Albumin [Mass/Vol] 4.0 g/dL Normal 3.4 - 5.0 [facility] Comment on above: Performed By: #### C BC #### [address] [id number] ALP [Catalytic activity/Vol] 127 U/L Normal 33 - 136 [facility] Comment on above: Performed By: #### C BC #### [address] [id number] ALT [Catalytic activity/Vol] 16 U/L Normal 10 - 52 [facility] Comment on above: Result Comment: Becca ents treated with Sulfasalazine may generate falsely decreased results for ALT. Performed By: #### C BC #### [address] [id number] Anion gap [Moles/Vol] 12 mmol/L Normal 10 - 20 [facility] Comment on above: Performed By: #### C BC #### [address] [id number] AST [Catalytic activity/Vol] 21 U/L Normal 9 - 39 [facility] Comment on above: Performed By: #### C BC #### [address] [place] [id number] Bilirubin [Mass/Vol] 0.6 mg/dL Normal 0.0 - 1.2 [facility] Comment on above: Performed By: #### C BC #### [address] [id number] Calcium [Mass/Vol] 9.3 mg/dL Normal 8.6 - 10.3 [facility] Comment on above: Performed By: #### C BC #### [address] [id number] Chloride [Moles/Vol] 103 mmol/L Normal 98 - 107 [facility] Comment on above: Performed By: #### C BC #### [address] [id number] Creatinine [Mass/Vol] 1.29 mg/dL Normal 0.50 - 1.30 [facility] Comment on above: Performed By: #### C BC #### [address] [id number] GFR/1.73 sq M.predicted among non-blacks MDRD (S/P/Bld) [Vol rate/Area] 61 mL/min/{1.73_m2} Normal >90 [facility] Comment on above: Result Comment: CALC ULATIONS OF ESTIMATED GFR ARE PERFORMED USING THE 2020 CKD-EPI STUDY REFIT EQUATION WITHOUT THE RACE VARIABLE FOR THE IDMS-TRACEABLE CREATININE METHODS. https://jasn.asnjournals.org/content/early//ASN.7410821 988 Performed By: #### C BC #### [address] [id number] Glucose [Mass/Vol] 103 mg/dL High 74 - 99 [facility] Comment on above: Performed By: #### C BC #### [address] [id number] HCO3 (Bld) [Moles/Vol] 27 mmol/L Normal 21 - 32 [facility] Comment on above: Performed By: #### C BC #### [address] [id number] Potassium [Moles/Vol] 3.8 mmol/L Normal 3.5 - 5.3 [facility] Comment on above: Performed By: #### C BC #### [address] [id number] Protein [Mass/Vol] 7.4 g/dL Normal 6.4 - 8.2 [facility] Comment on above: Performed By: #### C BC #### [address] [id number] Sodium [Moles/Vol] 138 mmol/L Normal 136 - 145 [facility] Comment on above: Performed By: #### C BC #### [address] [id number] Urea nitrogen [Mass/Vol] 11 mg/dL Normal 6 - 23 [facility] Comment on above: Performed By: #### C BC #### [address] [id number] Complete Blood Count + Diffe rentialon 10-21-2022 Basophils/100 WBC (Bld) 1.2 % 0.0 - 2.0 [facility] Work Phone: Erythrocyte distribution width (RBC) [Ratio] 13.5 % See Below [facility] Work Phone: Comment on above: Reference Range: 11. 5 - 14.5 Hematocrit (Bld) [Volume fraction] 44.9 % See Below [facility] Work Phone: Comment on above: Reference Range: 41. 0 - 52.0 Hemoglobin (Bld) [Mass/Vol] 14.8 g/dL See Below [facility] Work Phone: Comment on above: Reference Range: 13. 5 - 17.5 Lymphocytes/100 WBC (Bld) 13.6 % See Below [facility] Work Phone: Comment on above: Reference Range: 13. 0 - 44.0 MCHC (RBC) [Mass/Vol] 33.0 g/dL See Below [facility] [facility] [place] Work Phone: [phone] Comment on above: Reference Range: 32. 0 - 36.0 MCV (RBC) [Entitic vol] 94 fL 80 - 100 [facility] [place] Work Phone: [phone] Monocytes/100 WBC (Bld) 7.7 % 2.0 - 10.0 [facility] [place] Work Phone: [phone] Neutrophils/100 WBC (Bld) 75.0 % See Below [facility] [place] Work Phone: [phone] Comment on above: Reference Range: 40. 0 - 80.0 Platelets (Bld) [#/Vol] 251 10*3/uL 150 - [address] [facility] [place] Work Phone: [phone] RBC (Bld) [#/Vol] 4.78 {x10E12/L} See Below [facility] [place] Work Phone: [phone] Comment on above: Reference Range: 4.5 0 - 5.90 WBC (Bld) [#/Vol] 9.4 10*3/uL 4.4 - 11.[address] [facility] [address] [facility] [place] Work Phone: [phone] Blood Count + Differential 0.11 {x10E9/L} above high threshold See Below [facility] [place] Work Phone: [phone] Comment on above: Reference Range: 0.0 0 - 0.10 Complete Blood Count + Differential 0.21 {x10E9/L} See Below [facility] [place] Work Phone: [phone] Comment on above: Reference Range: 0.0 0 - 0.70 Complete Blood Count + Differential 0.72 {x10E9/L} See Below [facility] [place] Work Phone: Comment on above: Reference Range: 0.1 0 - 1.00 Complete Blood Count + Differential 1.28 {x10E9/L} See Below [facility] Work Phone: [phone] Comment on above: Reference Range: 1.2 0 - 4.80 Complete Blood Count + Differential 7.04 {x10E9/L} See Below [facility] Work Phone: Comment on above: Reference Range: 1.2 0 - 7.70 Complete Blood Count + Differential 2.2 % 0.0 - 6.0 [facility] Work Phone: Complete Blood Count + Differential 0.3 % 0.0 - 0.9 [facility] Work Phone: Comment on above: Immature Granulocyte Count (IG) includes promyelocytes, myelocytes and metamyelocytes but does not include bands. Percent differential counts (%) should be interpreted in the context of the absolute cell counts (cells/L). Electrocardiogram 12 Leadon 10-21-2022 Electrocardiogram 12 Lead Ventricular Rate 64 Atrial Rate 64 P-R Interval 172 QRS Duration 84 Q-T Interval 398 QTC Calculation(Bazett) 410 P Rose 22 R Rose 17 T Rose 32 QRS Count 11 Q Onset 225 P Onset 139 P Offset 198 T Offset 424 QTC Fredericia 406 Diagnosis Class Borderline Normal Diagnosis Normal sinus rhythm Early transition Otherwise normal ECG No previous ECGs available Confirmed by Curtis Trejo ([id number]) on 10/24/2022 9:27:12 AM Normal [facility] - Chemistry and C hemistry - challengeon 10-21-2022 Albumin BCP dye [Mass/Vol] 4.0 g/dL 3.4 - 5.0 [facility] Work Phone: [phone] ALP [Catalytic activity/Vol] 127 U/L 33 - 136 [facility] Work Phone: [phone] ALT With P-5'-P [Catalytic activity/Vol] 16 U/L 10 - 52 [facility] [place] Work Phone: Comment on above: Patients treated wit h Sulfasalazine may generate falsely decreased results for ALT. Anion gap [Moles/Vol] 12 mmol/L 10 - 20 [facility] Work Phone: [phone] AST With P-5'-P [Catalytic activity/Vol] 21 U/L 9 - 39 [facility] Work Phone: [phone] Bilirubin [Mass/Vol] 0.6 mg/dL 0.0 - 1.2 [facility] Work Phone: [phone] Calcium [Mass/Vol] 9.3 mg/dL 8.6 - 10.[address] [facility] Work Phone: [phone] Chloride [Moles/Vol] 103 mmol/L 98 - 107 [facility] Work Phone: [phone] CO2 [Moles/Vol] 27 mmol/L 21 - [address] [facility] Work Phone: [phone] Creatinine [Mass/Vol] 1.29 mg/dL See Below [facility] Work Phone: [phone] Comment on above: Reference Range: 0.5 0 - 1.30 Glucose [Mass/Vol] 103 mg/dL above high threshold 74 - 99 [facility] Work Phone: [phone] Potassium [Moles/Vol] 3.8 mmol/L 3.5 - 5.3 -[place] [facility] Work Phone: [phone] Protein [Mass/Vol] 7.4 g/dL 6.4 - 8.[address] [facility] [address] [facility] Work Phone: [phone] Sodium [Moles/Vol] 138 mmol/L 136 - [address] [facility] Work Phone: [phone] Urea nitrogen [Mass/Vol] 11 mg/dL 6 - 23 [facility] [place] Work Phone: Laboratory - Coagulationon 0 10-21-2022 INR Coag (PPP) [Relative time] 1.4 {INR} above high threshold 0.9 - 1.1 [facility] [place] Work Phone: [phone] PT Coag (PPP) [Time] 16.2 s above high threshold 9.8 - 12.8 [facility] [place] Work Phone: [phone] Comment on above: Note new reference r jana as of 08/13/2022 at 10:00am. MRSA Screenon 10-21-2022 Staphylococcus sp identified Org specific cx Nom (Unsp spec) Abnormal -[facility] [place] Work Phone: [phone] Panel Informationon 10-21 [email or web address] ?RetrieveTestByDateTime?Pa nbrzvCP=[id number]&Date=&Time=14%3a28%3a16% 3a00&TestType=ECG&Site=1&O utputType=PDF&Ext=PDF -[facility] [place] Work Phone: [phone] Normal sinus rhythm [facility] [place] Work Phone: [phone] Borderline Normal [facility] [place] Work Phone: [phone] -[facility] [place] Work Phone: [phone] -[facility] [place] Work Phone: [phone] [facility] [place] Work Phone: [phone] [facility] [place] Work Phone: [phone] -[facility] [place] Work Phone: 1 -[facility] [place] Work Phone: [phone] -[facility] [place] Work Phone: [phone] [facility] [place] Work Phone: [phone] [facility] [place] Work Phone: [phone] [facility] [place] Work Phone: [phone] -[facility] [place] Work Phone: [phone] -[facility] [place] Work Phone: [phone] -[facility] [place] Work Phone: [phone] -[facility] [place] Work Phone: {mL/min/1.73m2} >90 -[facility] [place] Work Phone: Comment on above: CALCULATIONS OF MEGAN MATED GFR ARE PERFORMED USING THE 2020 CKD-EPI STUDY REFIT EQUATION WITHOUT THE RACE VARIABLE FOR THE IDMS-TRACEABLE CREATININE METHODS.https://jasn.asnjournals.org/content/early//ASN .9059060745 PT/INRon 10-21-2022 PT Coag (PPP) [Time] 16.2 s High 9.8 - 12.8 [facility] Comment on above: Result Comment: Note new reference range as of 08/13/2022 at 10:00am. Performed By: #### P TINR #### [address] [id number] PT, INR 1.4 High 0.9 - 1.1 [facility] Comment on above: Performed By: #### P TINR #### [address] [id number] Patient Profile - Preop v3on 10-21-2022 Patient Profile - Preop v3 Patient Profile - Preop: Initial Info: Patient DemographicsName: ERIK MORALES Date: 1955 [address]: [address] [place] [address] Date/Time [id number] 13:33 Primary Phone [phone] Instructions Givenappropriate clothing, bring responsible adult as the stage driver (procedure may be cancelled if no stage driver), center location, insurance information Prep Instructions Reviewedyes Prep TypeCHG wipes Instructed to Have No Fluids AfterNPO after midnight How to be AddressedGarry Spoken Language PreferredEnglish Source of Informationpatient Stated Reason for AdmissionBack surgery Primary Contact Name and NumberJose Carlos (brother) [phone] Other Contact Names and NumbersDerick Garsia (friend) [phone] Limitations on Visitors/Phone Callsnone Medications Brought to Hospitalno General Health: Weight in kg90.4 kilogram(s) Weight in tbp319.2 pound(s) Weight Methodactual (measured) Scale Typestanding Height [...] CommentsLives with brother Resource/Environmental Concernsnone Anticipated Transition [place] [facility] Anticipated at Transitionnone Tobacco Use: Tobacco Useno former cigar smoker, quit 15 years ago Pre-op Checklist: Arrival [id number] Arrival Time09:25 Procedure TypeL2-3, L3-4 LAMINECTOMY, L3-4 INSTRUMENTATION, L2-3, L3-4 POSTERIOR LATERAL FUSION, L3-4LATERAL LUMBAR INTERBODY FUSION NPOyes Last Food [id number] 18:30 Last Clear Fluid [id number] 19:00 ID Band On Patientpatient ID (name), falls risk Consent Signedyes H&P Completeyes Anesthesia Assessment Completedpending EKG Performedsee results tab Chest X-Ray Performednot ordered Preop Antibioticssent to OR Beta-sushant Last Dose Date/[id number] 02:30 Glucose Resultn/a Type and Screen Resultedn/a [...] Allergy Status Unknown: Active Electronic Signatures: Moira Marsh (SANTI) (Signed 04-Nov-2022 05:56) Authored: Initial Info, General Health, Pre-op Checklist, Additional Information Nelli Aj) (Signed 21-Oct-2022 13:51) Authored: Initial Info, General Health, Health Mgmt, Relationship/Environ, Tobacco Use, Additional Information Last Updated: 04-Nov-2022 05:56 by Moira Marsh) Normal [facility] STAPH/MRSA SCREENon 10-22-19 23 STAPH/MRSA SCREEN PATIENT: ERIK MORALES LOCATION: [facility] BILL#: [id number] : 55 AGE: SEX: M ORDERED BY: CURTIS MELÉNDEZ SOURCE: MISC COLLECTED: 10/21/22 14:18 ANTIBIOTICS AT TEDDY.: RECEIVED : 10/21/22 21:56 SITE: Bharati Dunham U Ekta T S STAPH/MRSA SCREEN FINAL 10/23/22 12:12 ISOLATE1 : Staphylococcus aureus METHICILLIN SENSITIVE STAPHYLOCOCCUS AUREUS (MSSA) Normal [facility] Comment on above: Performed By: #### S TAP #### [facility] [address] [place] [address] URINALYSIS WITH CULTURE IF I NDICATEDon 10-21-2022 Appearance (U) CLEAR Normal CLEAR [facility] Comment on above: Performed By: #### U ARFX #### [address] [id number] Bilirubin Ql (U) Negative Normal NEGATIVE [facility] [place] Comment on above: Performed By: #### U ARFX #### [address] [id number] Color (U) YELLOW Normal STRAW,YELLO W [facility] Comment on above: Performed By: #### U ARFX #### [address] [id number] Glucose Ql (U) Negative Normal NEGATIVE [facility] Comment on above: Performed By: #### U ARFX #### [address] [id number] Hemoglobin Ql (U) Negative Normal NEGATIVE [facility] Comment on above: Performed By: #### U ARFX #### [address] [id number] Ketones Ql (U) Negative Normal NEGATIVE [facility] Comment on above: Performed By: #### U ARFX #### [address] [id number] Leukocyte esterase Test strip Ql (U) Negative Normal NEGATIVE [facility] Comment on above: Performed By: #### U ARFX #### [address], [place] [id number] Nitrite Ql (U) Negative Normal NEGATIVE [facility] Comment on above: Performed By: #### U ARFX #### [address] [id number] pH (U) 6.0 [pH] Normal 5.0 - 8.0 [facility] Comment on above: Performed By: #### U ARFX #### [address] [id number] Protein Ql (U) Negative Normal NEGATIVE [facility] Comment on above: Performed By: #### U ARFX #### [address] [id number] Specific gravity (U) [Rel density] 1.010 Normal 1.005 - 1.035 [facility] Comment on above: Performed By: #### U ARFX #### [address] [id number] Urobilinogen (U) [Mass/Vol] mg/dL Normal 0.0 - 1.9 [facility] Comment on above: Performed By: #### U ARFX #### [address] [id number] Color (U) YELLOW See Below [facility] Work Phone: Comment on above: Reference Range: STR AW,YELLOW Glucose Ql (U) Negative NEGATIVE [facility] [place] Work Phone: Ketones Ql (U) Negative NEGATIVE [facility] Work Phone: Leukocyte esterase Test strip Ql (U) Negative NEGATIVE [facility] Work Phone: pH (U) 6.0 [pH] 5.0 - 8.0 [facility] [place] Work Phone: Protein (U) [Mass/Vol] Negative NEGATIVE [facility] [place] Work Phone: RBC (U) [#/Vol] Negative NEGATIVE -[place] [facility] Work Phone: Specific gravity (U) [Rel density] 1.010 [address] See Below [facility] Work Phone: Comment on above: Reference Range: 1.0 05 - 1.035 URINALYSIS WITH CULTURE IF INDICATED Negative NEGATIVE -[facility] Work Phone: URINALYSIS WITH CULTURE IF INDICATED <2.0 0.0 - 1.9 -[place] [facility] Work Phone: URINALYSIS WITH CULTURE IF INDICATED CLEAR CLEAR [facility] Work Phone: Established Visit (Orthopaed ic Surgery)on 09-19-2022 Established Visit (Orthopaedic Surgery) Orders Back pain, Other intervertebral disc degeneration, lumbar region [place] [facility]; Status:Need Information - Financial Authorization; Requested for:[id number]; Osteogenesic Stimulator; Status:Active; Requested for:[id number]; Provider Impressions Assessment: At this time, I [...] complete plan details, please refer to Dr. Meléndze?s portion of this dictation. In a face [...] adult (278.00,V (more content not included)... Normal [facility] Initial [place] ([place]on 08-23-2022 Initial Visit (Orthopaedic Surgery) Provider Impressions [...] thoracic and lumbar xrays and MRI in [place]. brought a disc. History of Present IllnessErik [...] to the pain management center down in [place]. Review of Systems Review of systems, past [...] XR Lumbar spine AP and Lateral Normal -[place] [facility] Work Phone: SPINE, LUMBOSACRAL 2 OR 3 EWSon 08-23-2022 SPINE, LUMBOSACRAL 2 OR 3 VIEWS Patient Name: ERIK MORALES STUDY: SPINE, LUMBOSACRAL; 2 OR 3 VIEWS; ; 08/23/2022 1:37 pm INDICATION: pain M51.36: Other intervertebral disc degeneration, lumbar region M54.9: Back pain. ACCESSION NUMBER(S): [id number] ORDERING CLINICIAN: CURTIS MELÉNDEZ FINDINGS: Flexion-extension x-rays [...] Electronically signed by: CURTIS MELÉNDEZ MD Normal [facility] VASC LAB Abdominal Aorta/Nancy ac/IVC Ultraon 07-31-2022 VASC LAB Abdominal Aorta/Iliac/IVC Ultra [address], [address] [address] Vascular Lab Report Abdominal Aorta Iliac Ultrasound/IVC Ultrasound Patient Name: ERIK Mckoy Physician: [id number] Cecilio Go MD, [facility] Study Date: 07/31/2022 Referring CECILIO GO Physician: MRN/PID: [id number] PCP: Carmen Witt Accession/Order#: [id number] CC Report to: Date of : 1955 Technologist: Karol Hull RDCS, RVT Gender: M Technologist 2: Admission Status: Outpatient Location Performed: [facility] Diagnosis/ICD: I71.43-Infrarenal abdominal aortic aneurysm, without rupture Indication: HTN, Hyperlipidemia, Obesity, Former Smoker, Dyspnea, Pulmonary Fibrosis Procedure/CPT: 10629 Duplex Aorta/IVC/Iliac/Bypass Graft-00042 CONCLUSIONS: Aorta/Common Iliac Arteries/IVC: Infrarenal fusiform abdominal [...] Proximal 0.71 cm 0.96 cm 0.96 cm/s [id number] Cecilio Go MD, FACC Final Normal [facility] VASC LAB Abdominal Aorta/Nancy ac/IVC Ultrasoundon 07-31-2022 VASC LAB Abdominal Aorta/Iliac/IVC Ultrasound -[facility] [address] DO Work Phone: XR [...] IRAIS LORENZANA Date: 2022-07-02 13:50 Normal [facility] Office Visit (Cardiology)on 06-04-2022 Follow-up visit Diagnoses/Problems [...] Weight Tips; Status:Complete - Retrospective Authorization; Done: [id number] Some eating tips that can help you lose weight.; Status:Complete - Retrospective Authorization; Done: [id number] SocHx: Former smoker Tobacco Use Screening; Status:Complete; Done: 36Neh9599 Patient Instructions Please bring all medicines, vitamins, [...] rashes. Neurologic (more content not included)... Normal [employer] Tobacco Screening.on 023 Adult depression screening assessment No [facility] [employer] 250 DO Work Phone: Fall risk assessment a) No falls within the last year [facility] [employer] 250 DO Work Phone: Tobacco use status [facility] b) No [facility] [employer] 250 DO Work Phone: CREATININEon 02-18-2022 Creatinine [Mass/Vol] 1.23 mg/dL Normal 0.70-1.30 [facility] Comment on above: Performed By: #### E RUR #### [facility] [address] [place] [address] [address] Arielle Biswas EGFR-AF ROMANIAN >60 Normal >=60 [facility] Comment on above: Performed By: #### E RUR #### [facility] [address] [place] [address] [address] Arielle Biswas EGFR-NON AF ROMANIAN 59 mL/min/1.73m2 Critically low >=60 [facility] Comment on above: Performed By: #### E RUR #### [facility] [address] [place] [address] [address] CHEST W CONon [...] BRITANY TSANG Date: 2022-02-18 15:28 Normal [facility] Office Visit (Cardiology)on 12-11-2021 Follow-up visit Diagnoses/Problems [...] Weight Tips; Status:Complete - Retrospective Authorization; Done: 11Dec2021 Some eating tips that can help you lose weight.; Status:Complete - Retrospective Authorization; Done: 11Dec2021 SocHx: Former smoker Tobacco Use Screening; Status:Complete; Done: 11Dec2021 Patient Instructions Please bring all medicines, vitamins, [...] pulmonary embolism. Recently follow-up CT scan at [facility] revealed resolution of the pulmonary emboli. Some other pathology was noted with densities requiring follow-up imaging in 3 to 6 months which has been arranged through his PCP. He is currently anticoagulated with Eliquis. The patient is contemplating further dental work in December which he should be able to hold anticoagulation prior to. Recent nuclear stress test at [facility] was reviewed and shared with the patient and was normal. He is also known to have normal ejection fraction. He currently has no complaint to report physical examination was only remarkable for 8 pounds weight gain from last visit. He is now in the obesity range recent medical record from [facility] were reviewed with the patient and reviewed [...] palpitations, but (more content not included)... Normal [employer] Tobacco Screening.on Fall risk assessment a) No falls within the last year -[facility] [address] DO Work Phone: Tobacco use status [facility] b) No [facility] [address] DO Work Phone: [phone] Tobacco Screening. Yes [facility] [address] DO Work Phone: CTA CHEST WO W CONon CTA CHEST WO W CON EXAMINATION: CTA [...] by: BRITANY TSANG Date: 2021-11-05 11:08 Normal [facility] NM STRESS/REST MULTIon 10-17 NM STRESS/REST MULTI Patient: ERIK MORALES Exam Date: 10/17/2021 : 1955 Gender:M Ordering : DR CARMEN WITT . Admission #: [id number] Family : Order #: [id number] CLICK HERE TO VIEW EXAM RADIOLOGY REPORT [...] M.D. on 10/17/2021 at 13:48 Normal [facility] T4, T3U, FTI LABCORPon 10-10 Free Thyroxine Index 2.1 Normal 1.2-4.9 [facility] Comment on above: Performed By: #### E RUR #### [facility] [address] [place] [address] [address] Arielle Biswas T3 Uptake 28 % Normal 24-39 [facility] Comment on above: Performed By: #### E RUR #### [facility] [address] [place] [address] [address] Arielle Biswas T4 [Mass/Vol] 7.5 ug/dL Normal 4.5-12.0 [facility] Comment on above: Performed By: #### E RUR #### [facility] [address] [place] [address] Dr. Arielle Biswas BNPon 10-09-2021 Natriuretic peptide B (Bld) [Mass/Vol] 319.0 pg/mL Normal <=900.0 [facility] Comment on above: Performed By: #### B SHIFT COORDINATOR, TSH, CMP #### [facility] [address] [place] [address] Dr. Arielle Biswas CBC AUTO DIFFon 10-09-2021 BASO # 0.1 103/ul Normal 0.0-0.1 [facility] Comment on above: Performed By: #### C BC #### [facility] [address] [place] [address] Dr. Arielle Biswas Basophils/100 WBC (Bld) 1.3 % Normal 0.2-2.0 [facility] Comment on above: Performed By: #### C BC #### [facility] [address] [place] [address] Dr. Arielle Biswas EO # 0.2 103/ul Normal 0.0-0.7 [facility] Comment on above: Performed By: #### C BC #### [facility] [address] [place] [address] Dr. Arielle Biswas Eosinophils/100 WBC (Bld) 3.0 % Normal 0.9-7.0 [facility] Comment on above: Performed By: #### C BC #### [facility] [address] [place] [address] Dr. Arielle Biswas Erythrocyte distribution width (RBC) [Ratio] 13.5 % Normal 11.0-15.0 [facility] Comment on above: Performed By: #### C BC #### [facility] [address] [place] [address] Dr. Arielle Biswas Hematocrit (Bld) [Volume fraction] 41.8 % Critically low 42.0-54.0 [facility] Comment on above: Performed By: #### C BC #### [facility] [address] [place] [address] Dr. Arielle Biswas Hemoglobin (Bld) [Mass/Vol] 13.6 g/dL Critically low 14.0-18.0 [facility] Comment on above: Performed By: #### C BC #### [facility] [address] [place] [address] Dr. Arielle Biswas IG # 0.03 10e3/ul Normal 0.00-0.03 [facility] Comment on above: Performed By: #### C BC #### [facility] [address] [place] [address] Dr. Arielle Biswas IG % 0.4 % Normal 0.0-0.5 [facility] Comment on above: Performed By: #### C BC #### [facility] [address] [place] [address] Dr. Arielle Biswas LYMPH # 1.2 103/ul Normal 1.2-3.8 [facility] Comment on above: Performed By: #### C BC #### [facility] [address] [place] [address] Dr. Arielle Biswas Lymphocytes/100 WBC (Bld) 16.5 % Critically low 20.5-60.0 [facility] Comment on above: Performed By: #### C BC #### [facility] [address] [place] [address] Dr. Arielle Biswas MANUAL DIFF REQ NO Normal [facility] Comment on above: Performed By: #### C BC #### [facility] [address] [place] [address] Dr. Arielle Biswas MCH (RBC) [Entitic mass] 31.2 pg Normal 25.9-34.0 [facility] Comment on above: Performed By: #### C BC #### [facility] [address] [place] [address] Dr. Arielle Biswas MCHC (RBC) [Mass/Vol] 32.5 g/dL Normal 29.9-35.2 [facility] Comment on above: Performed By: #### C BC #### [facility] [address] [place] [address] Dr. Arielle Biswas MCV (RBC) [Entitic vol] 95.9 fL Critically high 80.0-94.0 [facility] Comment on above: Performed By: #### C BC #### [facility] [address] [place] [address] [address] Arielle Biswas MONO # 0.8 103/ul Normal 0.3-0.8 [facility] Comment on above: Performed By: #### C BC #### [facility] [address] [place] [address] [address] Arielle Biswas Monocytes/100 WBC (Bld) 11.5 % Normal 1.7-12.0 [facility] Comment on above: Performed By: #### C BC #### [facility] [address] [address] [address] Arielle Biswas NEUT # 4.7 103/ul Normal 1.4-6.5 [facility] Comment on above: Performed By: #### C BC #### [facility] [address] [place] [address] Dr. Arielle Biswas Neutrophils/100 WBC (Bld) 67.3 % Normal 43.0-75.0 [facility] Comment on above: Performed By: #### C BC #### [facility] [address] [place] [address] Dr. Arielle Biswas Platelet mean volume (Bld) [Entitic vol] 10.2 fL Normal 9.5-13.5 [facility] Comment on above: Performed By: #### C BC #### [facility] [address] [place] [address] Dr. Arielle Biswas PLT 243 103/ul Normal 150-450 [facility] Comment on above: Performed By: #### C BC #### [facility] [address] [address] [address] Arielle Biswas RBC 4.36 106/ul Critically low 4.70-6.10 [facility] Comment on above: Performed By: #### C BC #### [facility] [address] [address] [address] Arielle Biswas WBC 7.0 103/ul Normal 4.0-11.0 [facility] Comment on above: Performed By: #### C BC #### [facility] [address] [place] [address] Dr. Arielle Biswas D-DIMERon 10-09-2021 D-DIMER 0.30 mg/L FEU Normal <=0.59 [facility] Comment on above: Performed By: #### E RUR #### [facility] [address] [place] [address] Dr. Arielle Biswas D-DIMER COMMENTS SEE BELOW Normal [facility] Comment on above: Result Comment: Incr [...] hospitalization. Performed By: #### E RUR #### [facility] [address] [place] [address] Dr. Arielle Biswas PROF 14(COMP METB)on 022 Albumin [Mass/Vol] 3.0 g/dL Critically low 3.4-5.0 [facility] Comment on above: Performed By: #### B SHIFT COORDINATOR, TSH, CMP #### [facility] [address] [place] [address] Dr. Arielle Biswas Albumin/Globulin [Mass ratio] 0.8 {ratio} Normal [facility] Comment on above: Performed By: #### B SHIFT COORDINATOR, TSH, CMP #### [facility] [address] [place] [address] Dr. Arielle Biswas ALP [Catalytic activity/Vol] 120 U/L Critically high 46-116 [facility] Comment on above: Performed By: #### B SHIFT COORDINATOR, TSH, CMP #### [facility] [address] [place] [address] Dr. Arielle Biswas ALT [Catalytic activity/Vol] 21 U/L Normal 16-63 [facility] Comment on above: Performed By: #### B SHIFT COORDINATOR, TSH, CMP #### [facility] [address] [address] [address] Arielle Biswas Anion gap [Moles/Vol] 9.9 mmol/L Normal [facility] Comment on above: Performed By: #### B SHIFT COORDINATOR, TSH, CMP #### [facility] [address] [place] [address] Dr. Arielle Biswas AST [Catalytic activity/Vol] 20 U/L Normal 15-37 [facility] Comment on above: Performed By: #### B SHIFT COORDINATOR, TSH, CMP #### [facility] [address] [place] [address] Dr. Arielle Biswas Bilirubin [Mass/Vol] 0.6 mg/dL Normal 0.2-1.0 [facility] Comment on above: Performed By: #### B SHIFT COORDINATOR, TSH, CMP #### [facility] [address] [place] [address] Dr. Arielle Biswas Calcium [Mass/Vol] 8.8 mg/dL Normal 8.5-10.1 [facility] Comment on above: Performed By: #### B SHIFT COORDINATOR, TSH, CMP #### [facility] [address] [place] [address] Dr. Arielle Biswas Chloride [Moles/Vol] 103 mmol/L Normal 98-107 [facility] Comment on above: Performed By: #### B SHIFT COORDINATOR, TSH, CMP #### [facility] [address] [place] [address] Dr. Arielle Biswas CO2 [Moles/Vol] 29.0 mmol/L Normal 21.0-32.0 [facility] Comment on above: Performed By: #### B SHIFT COORDINATOR, TSH, CMP #### [facility] [address] [place] [address] Dr. Arielle Biswas Creatinine [Mass/Vol] 1.23 mg/dL Normal 0.70-1.30 [facility] Comment on above: Performed By: #### B SHIFT COORDINATOR, TSH, CMP #### [facility] [address] [place] [address] Dr. Arielle Biswas EGFR-AF ROMANIAN >60 Normal >=60 [facility] Comment on above: Performed By: #### B SHIFT COORDINATOR, TSH, CMP #### [facility] [address] [address] [address] Arielle Biswas EGFR-NON AF ROMANIAN 59 mL/min/1.73m2 Critically low >=60 [facility] Comment on above: Performed By: #### B SHIFT COORDINATOR, TSH, CMP #### [facility] [address] [address] [address] Arielle Biswas Globulin (S) [Mass/Vol] 3.7 g/dL Normal [facility] Comment on above: Performed By: #### B SHIFT COORDINATOR, TSH, CMP #### [facility] [address] [address] [address] Arielle Biswas Glucose [Mass/Vol] 95 mg/dL Normal 74-106 [facility] Comment on above: Performed By: #### B SHIFT COORDINATOR, TSH, CMP #### [facility] [address] [place] [address] Dr. Arielle Biswas Potassium [Moles/Vol] 3.9 mmol/L Normal 3.5-5.1 [facility] Comment on above: Performed By: #### B SHIFT COORDINATOR, TSH, CMP #### [facility] [address] [address] [address] Arielle Biswas Protein [Mass/Vol] 6.7 g/dL Normal 6.4-8.2 [facility] Comment on above: Performed By: #### B SHIFT COORDINATOR, TSH, CMP #### [facility] [address] [address] [address] Arielle Biswas Sodium [Moles/Vol] 138 mmol/L Normal 136-145 [facility] Comment on above: Performed By: #### B SHIFT COORDINATOR, TSH, CMP #### [facility] [address] [address] [address] Arielle Biswas Urea nitrogen [Mass/Vol] 13.0 mg/dL Normal 7.0-18.0 [facility] Comment on above: Performed By: #### B SHIFT COORDINATOR, TSH, CMP #### [facility] [address] [address] [address] Arielle Biswas Urea nitrogen/Creatinine [Mass ratio] 10.6 mg/mg Normal [facility] Comment on above: Performed By: #### B SHIFT COORDINATOR, TSH, CMP #### [facility] [address] [address] [address] Arielle Biswas TSHon 10-09-2021 TSH 0.393 uIU/mL Normal 0.358-3.740 [facility] Comment on above: Performed By: #### B SHIFT COORDINATOR, TSH, CMP #### [facility] [address] [address] [address] Arielle Biswas Tobacco Screening.on 022 Adult depression screening assessment No [facility] [place] [address] DO Work Phone: Fall risk assessment a) No falls within the last year [facility] [place] [address] DO Work Phone: Tobacco use status CPHS b) No [facility] [place] [address] DO Work Phone: CARDIAC DAVON 3-6on 2 CK [Catalytic activity/Vol] 80 U/L Normal 39-308 [facility] Comment on above: Performed By: #### E RUR #### [facility] [address] [place] [address] Dr. Arielle Biswas CK.MB [Mass/Vol] 2.19 ng/mL Normal <=3.60 [facility] Comment on above: Performed By: #### E RUR #### [facility] [address] [place] [address] Dr. Arielle Biswas HSTROP 152.1 pg/mL Critically high 4.0-76.1 [facility] Comment on above: Result Comment: CUT- OFF POINTS HAVE BEEN ESTABLISHED BASED ON THE FOURTH UNIVERSAL DEFINITIONS OF MYOCARDIAL INFARCTION. THE UPPER REFERENCE LIMIT (URL) OF TROPONIN, DEFINED THE 99TH PERCENTILE OF cTnI DISTRIBUTION IN A REFERENCE POPULATION, HAS BEEN CONFIRMED THE DECISION THRESHOLD FOR NE DIAGNOSIS. repeated Performed By: #### E RUR #### [facility] [address] [place] [address] Dr. Arielle Biswas CARDIAC DAVON ADMITon 022 CK [Catalytic activity/Vol] 32 U/L Critically low 39-308 [facility] Comment on above: Performed By: #### B FRANKLYN, CMADM #### [facility] [address] [place] [address] Dr. Arielle Biswas CK.MB [Mass/Vol] 2.01 ng/mL Normal <=3.60 [facility] Comment on above: Performed By: #### B FRANKLYN, MANJULADM #### [facility] [address] [place] [address] Dr. Arielle Biswas HSTROP 144.5 pg/mL Critically high 4.0-76.1 [facility] Comment on above: Result Comment: CUT- OFF POINTS HAVE BEEN ESTABLISHED BASED ON THE FOURTH UNIVERSAL DEFINITIONS OF MYOCARDIAL INFARCTION. THE UPPER REFERENCE LIMIT (URL) OF TROPONIN, DEFINED THE 99TH PERCENTILE OF cTnI DISTRIBUTION IN A REFERENCE POPULATION, HAS BEEN CONFIRMED THE DECISION THRESHOLD FOR NE DIAGNOSIS. repeated Performed By: #### B FRANKLYN, AMANDA #### [facility] [address] [place] [address] Dr. Arielle Biswas PJ 39 ng/mL Normal 16-96 [facility] Comment on above: Performed By: #### B AMANDA ESTES #### [facility] [address] [place] [address] Dr. Arielle Biswas CBC AUTO DIFFon 07-14-2021 BASO # 0.1 103/ul Normal 0.0-0.1 [facility] Comment on above: Performed By: #### E RUR #### [facility] [address] [place] [address] Dr. Arielle Biswas Basophils/100 WBC (Bld) 0.5 % Normal 0.2-2.0 [facility] Comment on above: Performed By: #### E RUR #### [facility] [address] [place] [address] Dr. Arielle Biswas EO # 0.1 103/ul Normal 0.0-0.7 [facility] Comment on above: Performed By: #### E RUR #### [facility] [address] [place] [address] Dr. Arielle Biswas Eosinophils/100 WBC (Bld) 0.6 % Critically low 0.9-7.0 [facility] Comment on above: Performed By: #### E RUR #### [facility] [address] [place] [address] Dr. Arielle Biswas Erythrocyte distribution width (RBC) [Ratio] 14.6 % Normal 11.0-15.0 [facility] Comment on above: Performed By: #### E RUR #### [facility] [address] [place] [address] Dr. Arielle Biswas Hematocrit (Bld) [Volume fraction] 45.5 % Normal 42.0-54.0 [facility] Comment on above: Performed By: #### E RUR #### [facility] [address] [place] [address] Dr. Arielle Biswas Hemoglobin (Bld) [Mass/Vol] 14.5 g/dL Normal 14.0-18.0 [facility] Comment on above: Performed By: #### E RUR #### [facility] [address] [place] [address] Dr. Arielle Biswas IG # 0.13 10e3/ul Critically high 0.00-0.03 [facility] Comment on above: Performed By: #### E RUR #### [facility] [address] [place] [address] Dr. Arielle Biswas IG % 0.8 % Critically high 0.0-0.5 [facility] Comment on above: Performed By: #### E RUR #### [facility] [address] [place] [address] Dr. Arielle Biswas LYMPH # 1.4 103/ul Normal 1.2-3.8 [facility] Comment on above: Performed By: #### E RUR #### [facility] [address] [place] [address] Dr. Arielle Biswas Lymphocytes/100 WBC (Bld) 8.7 % Critically low 20.5-60.0 [facility] Comment on above: Performed By: #### E RUR #### [facility] [address] [place] [address] Dr. Arielle Biswas MANUAL DIFF REQ NO Normal [facility] Comment on above: Performed By: #### E RUR #### [facility] [address] [place] [address] Dr. Arielle Biswas MCH (RBC) [Entitic mass] 30.5 pg Normal 25.9-34.0 [facility] Comment on above: Performed By: #### E RUR #### [facility] [address] [place] [address] Dr. Arielle Biswas MCHC (RBC) [Mass/Vol] 31.9 g/dL Normal 29.9-35.2 [facility] Comment on above: Performed By: #### E RUR #### [facility] [address] [place] [address] Dr. Arielle Biswas MCV (RBC) [Entitic vol] 95.6 fL Critically high 80.0-94.0 [facility] Comment on above: Performed By: #### E RUR #### [facility] [address] [place] [address] Dr. Arielle Biswas MONO # 1.1 103/ul Critically high 0.3-0.8 [facility] Comment on above: Performed By: #### E RUR #### [facility] [address] [place] [address] Dr. Arielle Biswas Monocytes/100 WBC (Bld) 7.1 % Normal 1.7-12.0 [facility] Comment on above: Performed By: #### E RUR #### [facility] [address] [place] [address] Dr. Arielle Biswas NEUT # 12.9 103/ul Critically high 1.4-6.5 [facility] Comment on above: Performed By: #### E RUR #### [facility] [address] [place] [address] Dr. Arielle Biswas Neutrophils/100 WBC (Bld) 82.3 % Critically high 43.0-75.0 [facility] Comment on above: Performed By: #### E RUR #### [facility] [address] [place] [address] Dr. Arielle Biswas Platelet mean volume (Bld) [Entitic vol] 9.7 fL Normal 9.5-13.5 [facility] Comment on above: Performed By: #### E RUR #### [facility] [address] [place] [address] Dr. Arielle Biswas PLT 206 103/ul Normal 150-450 [facility] Comment on above: Performed By: #### E RUR #### [facility] [address] [place] [address] Dr. Arielle Biswas RBC 4.76 106/ul Normal 4.70-6.10 [facility] Comment on above: Performed By: #### E RUR #### [facility] [address] [place] [address] Dr. Arielle Biswas WBC 15.6 103/ul Critically high 4.0-11.0 [facility] Comment on above: Performed By: #### E RUR #### [facility] [address] [place] [address] Dr. Arielle Biswas CTA CHEST WO W CONon 07-14- 022 CTA CHEST WO W CON EXAM: [...] H (more content not included)... Normal [facility]on 06-25 SARS-CoV-2 (COVID-19) RNA ELKIN+probe Ql (Unsp spec) Not detected Normal NOT DETECTED [facility] Comment on above: Result Comment: When diagnostic testing is negative, the possibility of a false negative should be considered in the context of a patient's recent exposures and the presence of clinical signs and symptoms consistent with SARS-CoV-2. This test is not yet approved or cleared by the [place] Food and Drug Administration (FDA). This test was developed by [employer], [place], [place]. The performance characteristics of this test were validated by [facility]. The results are not intended to be used as the sole means for clinical diagnosis or patient management decisions. [facility] is authorized under Clinical Laboratory Improvement Amendments [...] for this test is supported by the [place] of Health and Human Service's declaration that [...] used). Performed By: #### E RUR #### [facility] [address] [place] [address] Dr. Arielle Biswas ER URINE PROFILEon 2 Bilirubin Ql (U) Negative Normal NEGATIVE [facility] Comment on above: Performed By: #### E RUR #### [facility] [address] [place] [address] Dr. Arielle Biswas Clarity (U) CLEAR Normal CLEAR [facility] Comment on above: Performed By: #### E RUR #### [facility] [address] [place] [address] Dr. Arielle Biswas Color (U) LT. YELLOW Normal YELLOW [facility] Comment on above: Performed By: #### E RUR #### [facility] [address] [place] [address] Dr. Arielle Biswas ERUAHD A micrscopic examina tion will be performed if indicated. Normal [facility] Comment on above: Performed By: #### E RUR #### [facility] [address] [place] [address] Dr. Arielle Biswas Glucose Ql (U) Negative Normal NEGATIVE [facility] Comment on above: Performed By: #### E RUR #### [facility] [address] [place] [address] Dr. Arielle Biswas Hemoglobin Ql (U) Negative Normal NEGATIVE The [facility] Comment on above: Performed By: #### E RUR #### [facility] [address] [place] [address] Dr. Arielle Biswas Ketones Ql (U) Negative Normal NEGATIVE [facility] Comment on above: Performed By: #### E RUR #### [facility] [address] [place] [address] Dr. Arielle Biswas LEUKOCYTES Negative Normal NEGATIVE [facility] Comment on above: Performed By: #### E RUR #### [facility] [address] [place] [address] Dr. Arielle Biswas Nitrite Ql (U) Negative Normal NEGATIVE [facility] Comment on above: Performed By: #### E RUR #### [facility] [address] [place] [address] Dr. Arielle Biswas pH (U) 6.0 [pH] Normal 5-9 [facility] Comment on above: Performed By: #### E RUR #### [facility] [address] [place] [address] Dr. Arielle Biswas SPEC GRAVITY 1.005 Normal 1.005-<=1.0 25 [facility] Comment on above: Performed By: #### E RUR #### [facility] [address] [place] [address] Dr. Arielle Biswas UA PROTEIN Negative Normal NEGATIVE/ TRACE [facility] Comment on above: Performed By: #### E RUR #### [facility] [address] [place] [address] Dr. Arielle Biswas UR MICRO IND NOT INDICATED Normal [facility] Comment on above: Performed By: #### E RUR #### [facility] [address] [place] [address] Dr. Arielle Biswas Urobilinogen Qn (U) 0.2 {Fernando'U}/dL Normal 0.2 - 1. 0 [facility] Comment on above: Performed By: #### E RUR #### [facility] [address] [place] [address] Dr. Arielle Biswas LACTATE/LACTIC ACIDon 2021 Lactate [Moles/Vol] 3.0 mmol/L Critically high 0.4-1.9 [facility] Comment on above: Result Comment: repe ated Performed By: #### E RUR #### [facility] [address] [place] [address] Dr. Arielle Biswas PROF CHEM 8 (BAS METB)on Anion gap [Moles/Vol] 14.0 mmol/L Normal [facility] Comment on above: Performed By: #### B FRANKLYN, CMADM #### [facility] [address] [place] [address] Dr. Arielle Biswas Calcium [Mass/Vol] 8.9 mg/dL Normal 8.5-10.1 [facility] Comment on above: Performed By: #### B FRANKLNY, CMADM #### [facility] [address] [place] [address] Dr. Arielle Biswas Chloride [Moles/Vol] 96 mmol/L Critically low 98-107 [facility] Comment on above: Performed By: #### B FRANKLYN, CMADM #### [facility] [address] [place] [address] Dr. Arielle Biswas CO2 [Moles/Vol] 26.5 mmol/L Normal 21.0-32.0 [facility] Comment on above: Performed By: #### B FRANKLYN, CMADM #### [facility] [address] [place] [address] Dr. Arielle Biswas Creatinine [Mass/Vol] 1.43 mg/dL Critically high 0.70-1.30 [facility] Comment on above: Performed By: #### B FRANKLYN, CMADM #### [facility] [address] [place] [address] Dr. Arielle Biswas EGFR-AF ROMANIAN 60 mL/min/1.73m2 Normal >=60 [facility] Comment on above: Performed By: #### B FRANKLYN, CMADM #### [facility] [address] [place] [address] Dr. Arielle Biswas EGFR-NON AF ROMANIAN 50 mL/min/1.73m2 Critically low >=60 [facility] Comment on above: Performed By: #### B FRANKLYN, CMADM #### [facility] [address] [address] [address] Arielle Biswas Glucose [Mass/Vol] 122 mg/dL Critically high 74-106 T [facility] Comment on above: Performed By: #### B MP, CMADM #### [facility] [address] [place] [address] Dr. Arielle Biswas Potassium [Moles/Vol] 3.5 mmol/L Normal 3.5-5.1 [facility] Comment on above: Performed By: #### B FRANKLYN, CMADM #### [facility] [address] [place] [address] Dr. Arielle Biswas Sodium [Moles/Vol] 133 mmol/L Critically low 136-145 Th [facility] Comment on above: Performed By: #### B FRANKLYN, CMADM #### [facility] [address] [place] [address] Dr. Arielle Biswas Urea nitrogen [Mass/Vol] 12.0 mg/dL Normal 7.0-18.0 [facility] Comment on above: Performed By: #### B FRANKLYN, CMADM #### [facility] [address] [place] [address] Dr. Arielle Biswas Urea nitrogen/Creatinine [Mass ratio] 8.4 mg/mg Normal [facility] Comment on above: Performed By: #### B FRANKLYN, CMADM #### [facility] [address] [place] [address] Dr. Arielle Biswas PROTIMEon 07-14-2021 INR Coag (PPP) [Relative time] 0.99 {INR} Normal [facility] Comment on above: Performed By: #### P TT, PT #### [facility] [address] [place] [address] Dr. Arielle Biswas INR GUIDELINES SEE BELOW Normal [facility] Comment on above: Result Comment: YANG RED INR: 2.0 - 3.0 CONDITIONS NOT LISTED BELOW 2.5 - 3.5 FOR PROSTHETIC HEART VALVE REPLACEMENT 2.5 - 3.5 RECURRENT THROMBOSIS Performed By: #### P TT, PT #### [facility] [address], [place] [address] Dr. Arielle Biswas PT Coag (PPP) [Time] 10.7 s Normal 9.0-11.6 [facility] Comment on above: Performed By: #### P TT, PT #### [facility] [address], [place] [address] Dr. Arielle Biswas PTTon 07-14-2021 aPTT Coag (Bld) [Time] 26.6 s Normal 22.3-36.2 [facility] Comment on above: Performed By: #### P TT, PT #### [facility] [address], [place] [address] Dr. Arielle Biswas Tobacco Screening.on 022 Fall risk assessment a) No falls within the last year [facility] [place] [address] DO Work Phone: Tobacco use status CP b) No [facility] [place] [address] DO Work Phone: Tobacco Screening. Yes [facility] [place] [address] DO Work Phone: [phone] Tobacco Screening.on 021 Fall risk assessment a) No falls within the last year [facility] [place] [address] DO Work Phone: Tobacco use status CP b) No [facility] [place] [address] DO Work Phone: [phone] Tobacco Screening.on 021 Fall risk assessment a) No falls within the last year [facility] [facility] DO Work Phone: Tobacco use status CPHS b) No [facility] 250 DO Work Phone: Vital Signs Date Time Vital Sign Value Performing Clinician Facility 08-21-2023 11: Body height 175.26 cm MD Carmen Witt Work Phone: [facility] 08-21-2023 11: Body mass index (BMI) [Ratio] 29.9 kg/m2 MD Carmen Witt Work Phone: [facility] 08-21-2023 11:11-0400 Body temperature 96.1 [degF] MD Carmen Witt Work Phone: [facility] 08-21-2023 11:11-0400 Body weight 92.07 kg MD Carmen Witt Work Phone: [facility] 08-21-2023 11:11-0400 Diastolic blood pressure 80 mm[Hg] MD Carmen Witt Work Phone: [facility] 08-21-2023 11:11-0400 Heart rate 77 /min MD Carmen Witt Work Phone: [facility] 08-21-2023 11:11-0400 SaO2% (BldA) [Mass fraction] 97 % MD Carmen Witt Work Phone: [facility] 08-21-2023 11:11-0400 Systolic blood pressure 140 mm[Hg] MD Carmen Witt Work Phone: [facility] 04-09-2023 10:04-0500 Body height 175.26 cm MD Jean Nicholson Work Phone: [facility] 04-09-2023 10:04-0500 Body mass index (BMI) [Ratio] 29.9 kg/m2 MD Jean Nicholson Work Phone: [facility] 04-09-2023 10:04-0500 Body temperature 96.7 [degF] MD Jean Nicholson Work Phone: [facility] 04-09-2023 10:04-0500 Body weight 92.07 kg MD Jean Nicholson Work Phone: [facility] 04-09-2023 10:04-0500 Diastolic blood pressure 93 mm[Hg] MD Jean Nicholson Work Phone: [facility] 04-09-2023 10:04-0500 Heart rate 98 /min MD Jean Nicholson Work Phone: [facility] 04-09-2023 10:04-0500 Respiratory rate 20 /min MD Jean Nicholson Work Phone: [facility] 04-09-2023 10:04-0500 SaO2% (BldA) [Mass fraction] 100 % MD Jean Nicholson Work Phone: [facility] 04-09-2023 10:04-0500 Systolic blood pressure 152 mm[Hg] MD Jean Nicholson Work Phone: [facility] 12-23-2022 10:50-0400 Blood Pressure Location Marino SPEAR [facility] 12-23-2022 10:50-0400 Diastolic blood pressure 62 mm[Hg] Marino SPEAR [facility] 12-23-2022 10:50-0400 Heart rate 69 /min Marino SPEAR [facility] 12-23-2022 10:50-0400 Respiratory rate 16 /min Marino SPEAR [facility] 12-23-2022 10:50-0400 Systolic blood pressure 95 mm[Hg] Marino SPEAR [facility] 11-07-2022 10:56-0400 Body temperature 98.6 [degF] Carmen Hoy Other Phone: [facility] 11-07-2022 10:56-0400 Diastolic blood pressure 69 mm[Hg] Carmen Hoy Other Phone: [facility] 11-07-2022 10:56-0400 Heart rate 97 /min Carmen Hoy Other Phone: [facility] 11-07-2022 10:56-0400 Respiratory rate 16 /min Carmen Hoy Other Phone: [facility] 11-07-2022 10:56-0400 SaO2% (BldA) [Mass fraction] 96 % Carmen Hoy Other Phone: [facility] 11-07-2022 10:56-0400 Systolic blood pressure 113 mm[Hg] Carmen Hoy Other Phone: [facility] 10-30-2022 10:00-0400 Body height 175.26 cm Danna Violeta Other [employer] [facility] [employer] Other 10-30-2022 10:00-0400 Body mass index (BMI) [Ratio] 30.27 kg/m2 Danna Violeta Other [employer] Other 10-30-2022 10:00-0400 Body temperature 97 [degF] Danna Violeta Other [employer] Other 10-30-2022 10:00-0400 Body weight 92.99 kg Danna Violeta Other [employer] Other 10-30-2022 10:00-0400 Diastolic blood pressure 75 mm[Hg] Danna Violeta Other [facility] Other 10-30-2022 10:00-0400 Respiratory rate 20 /min Danna Violeta Other [employer] Other 10-30-2022 10:00-0400 SaO2% (BldA) [Mass fraction] 96 % Danna Violeta Other [employer] Other 10-30-2022 10:00-0400 Systolic blood pressure 116 mm[Hg] Danna Violeta Other [employer] Other 08-23-2022 12:57-0400 Body height 175.26 cm Carmen Álvarez Hoy Work Phone: [facility] [place] Work Phone: 08-23-2022 12:57-0400 Body mass index (BMI) [Ratio] 30.57 kg/m2 Carmen Álvarez Hoy Work Phone: [facility] [place] Work Phone: 08-23-2022 12:57-0400 Body surface area Derived from formula 2.1 m2 Carmen Álvarez Hoy Work Phone: [facility] [place] Work Phone: 08-23-2022 12:57-0400 Body weight 93.9 kg Carmen Álvarez Hoy Work Phone: [facility] [place] Work Phone: 08-20-2022 11:30-0400 Body height 175.26 cm Danna Violeta Other [employer] Other 08-20-2022 11:30-0400 Body mass index (BMI) [Ratio] 30.42 kg/m2 Danna Violeta Other [employer] Other 08-20-2022 11:30-0400 Body temperature 96.8 [degF] Danna Violeta Other [employer] Other 08-20-2022 11:30-0400 Body weight 93.44 kg Danna Violeta Other [employer] Other 08-20-2022 11:30-0400 Diastolic blood pressure 80 mm[Hg] Danna Violeta Other [employer] Other 08-20-2022 11:30-0400 Respiratory rate 20 /min Danna Violeta Other [employer] Other 08-20-2022 11:30-0400 SaO2% (BldA) [Mass fraction] 97 % Danna Violeta Other [employer] Other 08-20-2022 11:30-0400 Systolic blood pressure 142 mm[Hg] Danna Violeta Other [employer] Other 08-15-2022 09:30-0400 Body height 175.26 cm Bianka Rosszhnag Other [facility] Other 08-15-2022 09:30-0400 Body mass index (BMI) [Ratio] 30.57 kg/m2 Bianka Rossareliso Other [facility] Other 08-15-2022 09:30-0400 Body temperature 96.7 [degF] Bianka Merritto Other [employer] Other 08-15-2022 09:30-0400 Body weight 93.9 kg Bianka Merritto Other [employer] Other 08-15-2022 09:30-0400 Diastolic blood pressure 70 mm[Hg] Bianka Rossareliso Other [employer] Other 08-15-2022 09:30-0400 SaO2% (BldA) [Mass fraction] 98 % Bianka Rossareliso Other [employer] Other 08-15-2022 09:30-0400 Systolic blood pressure 118 mm[Hg] Bianka Rossareliso Other [employer] Other 06-04-2022 11:33-0400 Body height 175.26 cm Carmen M Hoy Work Phone: [facility] 250 DO Work Phone: 06-04-2022 11:33-0400 Body mass index (BMI) [Ratio] 30.13 kg/m2 Carmen M Hoy Work Phone: [facility] 250 DO Work Phone: 06-04-2022 11:33-0400 Body surface area Derived from formula 2.08 m2 Carmen M Hoy Work Phone: [facility] 250 DO Work Phone: 06-04-2022 11:33-0400 Body weight 92.53 kg Carmen M Hoy Work Phone: [facility] 250 DO Work Phone: 06-04-2022 11:33-0400 Diastolic blood pressure 72 mm[Hg] Carmen M Hoy Work Phone: [facility] 250 DO Work Phone: 06-04-2022 11:33-0400 Heart rate 68 /min Carmen M Hoy Work Phone: [facility] 250 DO Work Phone: 06-04-2022 11:33-0400 Systolic blood pressure 110 mm[Hg] Carmen M Hoy Work Phone: [facility] 250 DO Work Phone: 02-05-2022 15:30-0500 Body height 175.26 cm Danna Violeta Other [employer] Other 02-05-2022 15:30-0500 Body mass index (BMI) [Ratio] 29.97 kg/m2 Danna Violeta Other [employer] Other 02-05-2022 15:30-0500 Body temperature 98.4 [degF] Danna Violeta Other [employer] Other 02-05-2022 15:30-0500 Body weight 92.08 kg Danna Violeta Other [employer] Other 02-05-2022 15:30-0500 Diastolic blood pressure 83 mm[Hg] Danna Violeta Other [employer] Other 02-05-2022 15:30-0500 Respiratory rate 20 /min Danna Violeta Other [employer] Other 02-05-2022 15:30-0500 SaO2% (BldA) [Mass fraction] 96 % Danna Violeta Other [employer] Other 02-05-2022 15:30-0500 Systolic blood pressure 143 mm[Hg] Danna Violeta Other [employer] Other 12-11-2021 11:39-0400 Body height 175.26 cm Jean Saeed [employer] Work Phone: [email or web address] 250 DO Work Phone: 12-11-2021 11:39-0400 Body mass index (BMI) [Ratio] 30.72 kg/m2 Jean Saeed [employer] Work Phone: [email or web address] 250 DO Work Phone: 12-11-2021 11:39-0400 Body surface area Derived from formula 2.1 m2 Jean Saeed Naderer Work Phone: [email or web address] 250 DO Work Phone: 12-11-2021 11:39-0400 Body weight 94.35 kg Jean Saeed Naderer Work Phone: [facility] [employer] 250 DO Work Phone: 12-11-2021 11:39-0400 Diastolic blood pressure 72 mm[Hg] Jean Saeed Naderer Work Phone: [facility] [employer] [place] 250 DO Work Phone: 12-11-2021 11:39-0400 Heart rate 72 /min Jean Saeed Naderer Work Phone: [facility] [place] 250 DO Work Phone: 12-11-2021 11:39-0400 Systolic blood pressure 124 mm[Hg] Jean Saeed Naderer Work Phone: [facility] [employer] 250 DO Work Phone: 08-21-2021 15:00-0400 Body height 175.26 cm Danna Violeta Other [employer] Other 08-21-2021 15:00-0400 Body mass index (BMI) [Ratio] 28.35 kg/m2 Danna Violeta Other [employer] Other 08-21-2021 15:00-0400 Body temperature 97.5 [degF] Danna Violeta Other [employer] Other 08-21-2021 15:00-0400 Body weight 87.09 kg Danna Violeta Other [employer] Other 08-21-2021 15:00-0400 Diastolic blood pressure 70 mm[Hg] Danna Violeta Other [employer] Other 08-21-2021 15:00-0400 Respiratory rate 20 /min Danna Violeta Other [employer] Other 08-21-2021 15:00-0400 SaO2% (BldA) [Mass fraction] 94 % Danna Violeta Other [employer] Other 08-21-2021 15:00-0400 Systolic blood pressure 110 mm[Hg] Danna Violeta Other [employer] Other 08-15-2021 11:30-0400 Body height 175.26 cm Julian Matthews Other [employer] Other 08-15-2021 11:30-0400 Body mass index (BMI) [Ratio] 28.06 kg/m2 Julian Matthews Other [employer] Other 08-15-2021 11:30-0400 Body temperature 97.5 [degF] Julian Matthews Other [employer] Other 08-15-2021 11:30-0400 Body weight 86.18 kg Julian Matthews Other [employer] Other 08-15-2021 11:30-0400 Diastolic blood pressure 68 mm[Hg] Julian Matthews Other [employer] Other 08-15-2021 11:30-0400 SaO2% (BldA) [Mass fraction] 98 % Julian Matthews Other [employer] Other 08-15-2021 11:30-0400 Systolic blood pressure 102 mm[Hg] Julian Matthews Other [employer] Other 08-02-2021 08:32-0400 Body height 175.26 cm Jean Nicholson Work Phone: [facility] 250 DO Work Phone: 08-02-2021 08:32-0400 Body mass index (BMI) [Ratio] 28.8 kg/m2 Jean A Naderer Work Phone: [facility] 250 DO Work Phone: 08-02-2021 08:32-0400 Body surface area Derived from formula 2.04 m2 Jean A Naderer Work Phone: [facility] 250 DO Work Phone: 08-02-2021 08:32-0400 Body weight 88.45 kg Jean A Naderer Work Phone: [facility] 250 DO Work Phone: 08-02-2021 08:32-0400 Diastolic blood pressure 62 mm[Hg] Jean Saeed Naderer Work Phone: [facility] 250 DO Work Phone: 08-02-2021 08:32-0400 Heart rate 68 /min Jean Saeed Naderer Work Phone: [facility] 250 DO Work Phone: 08-02-2021 08:32-0400 Systolic blood pressure 108 mm[Hg] Jean Saeed Naderer Work Phone: [facility] 250 DO Work Phone: 07-14-2021 00:00-0400 60 1 Jean A Naderer Work Phone: [facility] 250 DO Work Phone: Comment on above: [id number] 04-30-2021 13:22-0500 Body height 175.26 cm Jean Saeed Naderer Work Phone: [facility] 250 DO Work Phone: 04-30-2021 13:22-0500 Body mass index (BMI) [Ratio] 29.45 kg/m2 Jean Saeed Naderer Work Phone: [facility] 250 DO Work Phone: 04-30-2021 13:22-0500 Body surface area Derived from formula 2.06 m2 Jean A Naderer Work Phone: [facility] 250 DO Work Phone: 04-30-2021 13:22-0500 Body weight 90.45 kg Jean A Naderer Work Phone: [facility] 250 DO Work Phone: 04-30-2021 13:22-0500 Diastolic blood pressure 90 mm[Hg] Jean A Naderer Work Phone: [facility] 250 DO Work Phone: 04-30-2021 13:22-0500 Heart rate 69 /min Jean Saeed Naderer Work Phone: [facility] 250 DO Work Phone: 04-30-2021 13:22-0500 Systolic blood pressure 134 mm[Hg] Jean Saeed Naderer Work Phone: [facility] 250 DO Work Phone: 02-20-2021 14:06-0500 Body height 175.26 cm Jean A Naderer Work Phone: [facility] 250 DO Work Phone: 02-20-2021 14:06-0500 Body mass index (BMI) [Ratio] 29.98 kg/m2 Jean A Naderer Work Phone: [facility] 250 DO Work Phone: 02-20-2021 14:06-0500 Body surface area Derived from formula 2.08 m2 Jean A Naderer Work Phone: [facility] 250 DO Work Phone: 02-20-2021 14:06-0500 Body weight 92.08 kg Jean Christophe Naderer Work Phone: [facility] 250 DO Work Phone: 02-20-2021 14:06-0500 Diastolic blood pressure 76 mm[Hg] Jean Saeed Naderer Work Phone: [facility] 250 DO Work Phone: 02-20-2021 14:06-0500 Heart rate 80 /min Jean Saeed Naderer Work Phone: [facility] 250 DO Work Phone: 02-20-2021 14:06-0500 Systolic blood pressure 110 mm[Hg] Jean Saeed Naderer Work Phone: [facility] 250 DO Work Phone: 02-06-2021 16:10-0500 Diastolic blood pressure 84 mm[Hg] Jean Saeed Naderer Work Phone: [facility] 250 DO Work Phone: 02-06-2021 16:10-0500 Systolic blood pressure 130 mm[Hg] Jean Saeed Naderer Work Phone: [facility] 250 DO Work Phone: 02-06-2021 15:37-0500 Body height 175.26 cm Jean Saeed Naderer Work Phone: [facility] 250 DO Work Phone: 02-06-2021 15:37-0500 Body mass index (BMI) [Ratio] 30.13 kg/m2 Jean Saeed Naderer Work Phone: [facility] 250 DO Work Phone: 02-06-2021 15:37-0500 Body surface area Derived from formula 2.08 m2 Jean Saeed Naderer Work Phone: [facility] 250 DO Work Phone: 02-06-2021 15:37-0500 Body weight 92.53 kg Jean A Naderer Work Phone: [facility] 250 DO Work Phone: 02-06-2021 15:37-0500 Diastolic blood pressure 90 mm[Hg] Jean Saeed Naderer Work Phone: [facility] 250 DO Work Phone: 02-06-2021 15:37-0500 Heart rate 125 /min Jean Saeed Naderer Work Phone: [facility] 250 DO Work Phone: 02-06-2021 15:37-0500 Systolic blood pressure 128 mm[Hg] Jean Saeed Naderer Work Phone: [facility] 250 DO Work Phone: 11-30-2020 11:30-0400 Body height 175.26 cm Danna Violeta Other [employer] Other 11-30-2020 11:30-0400 Body mass index (BMI) [Ratio] 29.68 kg/m2 Danna Violeta Other [employer] Other 11-30-2020 11:30-0400 Body weight 91.17 kg Danna Violeta Other [employer] Other 11-30-2020 11:30-0400 Diastolic blood pressure 83 mm[Hg] Danna Violeta Other [employer] Other 11-30-2020 11:30-0400 Respiratory rate 20 /min Danna Violeta Other [employer] Other 11-30-2020 11:30-0400 SaO2% (BldA) [Mass fraction] 98 % Danna Violeta Other [employer] Other 11-30-2020 11:30-0400 Systolic blood pressure 126 mm[Hg] Danna Violeta Other [employer] Other Encounters Encounter Date Encounter Type Care Provider Facility Start: 12-26-2023 ambulatory Marnio Colmenares ty:CHRISTIANO [facility] Start: 08-21-2023 End: 08-21-2023 ambulatory MD Carmen Witt Work Phone: [facility] Work Phone: Start: 08-21-2023 End: 08-21-2023 Patient encounter procedure MD Carmen Witt Work Phone: [facility] Vascular Surgery Work Phone: Start: 06-03-2023 End: 06-04-2023 ambulatory CURTIS Krista MELÉNDEZ [facility] Start: 06-03-2023 End: 06-03-2023 Office outpatient visit 15 minutes Curtis Meléndez MD Work Phone: [facility] Comment on above: Low back pain, unspe cified back pain laterality, unspecified chronicity, unspecified whether sciatica present (Primary Dx); Lumbar pain Start: 06-03-2023 End: 06-03-2023 Subsequent hospital visit by physician Serene Shetty X-Ray 2 [facility] Comment on above: Lumbar pain Start: 05-19-2023 End: 05-20-2023 ambulatory Maribell Leigh MD Facility:[facility] Start: 04-14-2023 End: 04-14-2023 Patient encounter procedure MD Jean Nicholson Work Phone: [facility] [place] Work Phone: Start: 04-14-2023 End: 04-14-2023 ambulatory MD Jean Nicholson Work Phone: [facility] Work Phone: Start: 04-09-2023 End: 04-09-2023 ambulatory MD Jean Nicholson Work Phone: [facility] Work Phone: Start: 04-09-2023 End: 04-09-2023 Patient encounter procedure MD Jean Nicholson Work Phone: [facility] Work Phone: Start: 04-07-2023 End: 04-08-2023 ambulatory Maribell Leigh MD Facility:[facility] Start: 03-24-2023 End: 03-25-2023 ambulatory Maribell Leigh MD Facility:[facility] Start: 03-04-2023 End: 03-04-2023 Patient encounter procedure MD Jean Nicholson Work Phone: [facility]Res[facility] Therapy Work Phone: Start: 03-04-2023 End: 03-04-2023 ambulatory MD Jean Nicholson Work Phone: [facility] Work Phone: Start: 02-28-2023 End: 03-01-2023 ambulatory CURTIS MELÉNDEZ [facility] Start: 02-28-2023 End: 02-28-2023 Office outpatient visit 15 minutes Curtis Meléndez MD Work Phone: [facility] Comment on above: Low back pain, unspe cified back pain laterality, unspecified chronicity, unspecified whether sciatica present (Primary Dx) Start: 12-23-2022 End: 12-24-2022 ambulatory Marino SPEAR Facility: [place] Start: 12-23-2022 End: 12-23-2022 Patient encounter procedure Marino Bharati SPEAR [facility] Start: 12-09-2022 End: 12-09-2022 ambulatory [facility] Ambulatory Start: 11-19-2022 Patient encounter procedure Carmen Witt Work Phone: [facility] Work Phone: Start: 11-19-[address] Curtis Meléndez Facility:[id number] Start: 11-04-2022 End: 11-07-2022 Evaluation and management of inpatient Curtis [facility] Start: 10-30-2022 End: 10-30-2022 ambulatory Danna Violeta Other [employer] Other Start: 10-30-2022 Office outpatient vi sit 25 minutes Danan Violeta [facility] Start: 10-22-2022 Patient encounter procedure Carmen Witt Work Phone: [facility] Work Phone: Start: 10-22-[address] Curtis Meléndez Facility:[id number] Start: 10-22-2022 Encounter for other preprocedural examination Dr. Curtis Meléndez [facility] Start: 10-21-[address] Carmen Witt Facility:[id number] Start: 10-21-2022 Encounter for preprocedural cardiovascular examination Dr. Curtis Meléndez [facility] Start: 10-21-2022 Encounter for preprocedural laboratory examination Dr. Curtis Meléndez [facility] Start: 09-19-2022 Patient encounter procedure Carmen Witt Work Phone: [facility] Work Phone: Start: 09-19-[address] Carmen Witt Facility:[id number] Start: 08-23-2022 Chart Update Carmen Witt Work Phone: [facility] Work Phone: Start: 08-23-2022 Patient encounter procedure Carmen Witt Work Phone: [facility] Work Phone: Start: 08-23-[address] Carmen Witt Facility:[id number] Start: 08-20-2022 End: 08-20-2022 ambulatory Danna Violeta Other [employer] [facility] [employer] Other Start: 08-20-2022 Office outpatient vi sit 25 minutes Danna Violeta [facility] Start: 08-15-2022 End: 08-15-2022 Patient encounter procedure Bianka Garcia [facility] Vascular Surgery Start: 08-15-2022 End: 08-15-2022 ambulatory MD Jean Nicholson Work Phone: [facility] [employer] Other Start: 07-31-2022 Chart Update Carmen Witt Work Phone: [facility] 250 DO Work Phone: Start: 07-31-[address] Cecilio Go Facility:[id number] Start: 07-02-2022 End: 07-03-[address] IRAIS LORENZANA Facility:[facility]1 Start: 06-05-2022 AUDIT Carmen Witt Work Phone: [facility] Work Phone: Start: 06-04-2022 Patient encounter procedure Carmen Witt Work Phone: [facility] 250 DO Work Phone: Start: 06-04-[address] Carmen Witt Facility:[id number] Start: 05-09-2022 End: 05-10-2022 ambulatory LAUREN BAUMANN . Facility:[facility]1 Start: 04-19-2022 Rx Renewal Jean Nicholson Work Phone: [facility] 250 DO Work Phone: Start: 02-18-2022 End: 02-19-[address] BRITANY TSANG Facility:[facility]1 Start: 02-07-2022 End: 02-08-2022 ambulatory LAUREN BAUMANN . Facility:[facility]1 Start: 02-05-2022 End: 02-05-2022 ambulatory Danna Violeta Other [facility] [employer] Other Start: 02-05-2022 Office outpatient vi sit 25 minutes Danna Violeta [facility] Start: 12-20-2021 End: 12-21-[address] MARINO SPEAR . Facility:[facility]1 Start: 12-11-2021 Office outpatient vi sit 25 minutes Jean Nicholson Work Phone: [facility] 250 DO Work Phone: Start: 12-11-[address] Jean Nicholson Facility: Start: 11-27-2021 End: 11-28-[address] LORENA ANDERSON . Facility:[facility]1 Start: 11-27-2021 Rx Renewal Jean Nicholson Work Phone: [facility] 250 DO Work Phone: Start: 11-05-2021 End: 11-06-[address] BRITANY TSANG Facility:[facility]1 Start: 10-17-2021 End: 10-18-[address] CARMEN WITT . Facility:[facility]1 Start: 10-12-2021 Rx Renewal Jean Nicholson Work Phone: [facility] 250 DO Work Phone: Start: 10-09-2021 End: 10-10-2021 ambulatory KATHERINE MARTINEZ Facility:[facility]1 Start: 08-30-2021 End: 08-31-2021 ambulatory LAUREN BAUMANN . Facility:[facility]1 Start: 08-21-2021 End: 08-21-2021 ambulatory Danna Violeta Other [employer] Other Start: 08-21-2021 Office outpatient vi sit 25 minutes Danna Violeta [facility] Start: 08-16-2021 End: 08-16-2021 ambulatory Bianka Garcia Other [employer] Other Start: 08-16-2021 Telephone encounter Bianka Lira [facility] Start: 08-15-2021 End: 08-15-2021 ambulatory Julian Matthews Other [employer] Other Start: 08-15-2021 Office outpatient vi sit 25 minutes Julian Byron [facility] Vascular Surgery Start: 08-02-2021 Office outpatient vi sit 25 minutes [facility]: [facility] Work Phone: Start: 07-20-2021 End: 07-20-2021 ambulatory Bianka Garcia Other [employer] Other Start: 07-20-2021 Telephone encounter Bianka Lira [facility] Start: 07-14-2021 End: 07-14-2021 ambulatory CYNDI SIBLEY Facility: Start: 04-30-2021 Office outpatient vi sit 25 minutes Jean A Naderer [facility] DO Work Phone: Start: 03-26-2021 Rx Renewal Jean A Naderer Work [facility]: [facility] DO Work Phone: Start: 02-20-2021 Patient encounter procedure [facility] Work Phone: Start: 10-07-2021 Office outpatient vi sit 25 minutes Danna Violeta [facility] Procedures Date Procedure Procedure Detail Performing Clinician Start: 08-21-2023 US scan of aorta MD Mike Witt Work Phone: Start: 06-03-2023 XR LUMBAR SPINE 2-3 VIEWS CURTIS MELÉNDEZ Start: 06-03-2023 Radex spine lumbosac ral 2/3 views Curtis Meléndez MD Work Phone: Start: 02-28-2023 XR LUMBAR SPINE 2-3 VIEWS CURTIS MELÉNDEZ Start: 11-04-2022 Lumbar spinal fusion Keaton SPEAR Start: 12-20-2021 PSA screening LAUREN Ol[place] Comment on above: Performed By: #### P SAD #### [facility] [address] [place] [address] Dr. Arielle Biswas Start: 07-14-2021 Operation for [...] Phone: Operative procedure on spinal structure Jean A Naderer Work Phone: Procedure on neck Jean A Nad erer Work Phone: Procedure on prostate Jean A Naderer Work Phone: Prostatectomy Jean A Naderer Work Phone: Tonsillectomy and adenoidectomy Jean A Naderer Work Phone: Tooth extraction Marino LIANG Plan of Treatment Date Care Activity Detail Author Start: 01-03-2025 Pneumococcal Vaccine : 65+ Years (3 - PPSV23 or PCV20) Pneumococcal Vaccine: 65+ Years (3 - PPSV23 or PCV20) [facility] Start: 01-03-2025 Pneumococcal Vaccine : 65+ Years (3 of 3 - PPSV23 or PCV20) Pneumococcal Vaccine: 65+ Years (3 of 3 - PPSV23 or PCV20) [facility] Start: 12-05-2023 End: 12-05-2023 Patient encounter procedure 12/05/2023 1:30 PM EDT Office Visit [facility] [address] [address] Curtis Meléndez MD [address] [facility], [address] [place] [address] [id number] [facility] Start: 06-17-2023 End: 06-17-2023 Patient encounter procedure 06/17/2023 10:20 AM EDT Office Visit [facility] [address] [facility] [address] [place] [address] Cecilio Go MD 7[address] [facility] 2, [facility] [address] [place] [address] [facility] Start: 04-14-2023 CT Chest WO contrast [facility] Start: 04-14-2023 CT of chest without contrast CT chest wo con high res [facility] Start: 02-28-2023 End: 02-29-2024 XR Lumbar spine 2 or 3 Views [facility] Service Area Work Phone: Comment on above: Expected: 02/28/2023 , Expires: 02/29/2024 Start: 12-10-2022 FUV, Provider: Cecilio Go, Status: Pen, Time: 11:10 AM FUV, Provider: Cecilio Go, Status: Pen, Time: 11:10 AM -[facility] 250 DO Work Phone: Start: 12-09-2022 FUV, Provider: Cecilio Go, Status: Pen, Time: 3:00 PM FUV, Provider: Cecilio Go, Status: Pen, Time: 3:00 PM [facility] [place] Work Phone: Start: 12-09-2022 Patient encounter procedure [facility] Cardiology Frankie Start: 11-19-2022 Patient encounter procedure [facility] Orthopedics Start: 11-19-2022 POV, Provider: Curtis Meléndez, Status: Pen, Time: 1:30 PM POV, Provider: Curtis Meléndez, Status: Pen, Time: 1:30 PM [facility] [place] Work Phone: Start: 11-05-2022 End: 11-05-2023 [facility] Start: 11-04-2022 End: 11-05-2023 [facility] Comment on above: If oral and IV lucita cotics ordered, use oral first and only use IV if oral is ineffective or cannot take oral. Do NOT give oral and IV within one hour of each other unless specificaly ordered. If NO result from Se nokot. Do NOT use with Senokot. Start: 11-04-2022 [facility], Provider: Curtis Meléndez, Status: Pen, Time: 7:30 AM [facility], Provider: Curtis Meléndez, Status: Pen, Time: 7:30 AM [facility] [place] Work Phone: Start: 10-25-2022 COVID-19 Vaccine ( season) COVID-19 Vaccine ( season) [facility] Start: 10-22-2022 PREADMIT, Provider: Curtis Meléndez, Status: Pen, Time: 1:30 PM PREADMIT, Provider: Curtis Meléndez, Status: Pen, Time: 1:30 PM [facility] [place] Work Phone: Start: 09-24-2022 FUV, Provider: Curtis Meléndez, Status: Pen, Time: 1:30 PM FUV, Provider: Curtis eMléndez, Status: Pen, Time: 1:30 PM [facility] Work Phone: Start: 08-23-2022 NPV, Provider: Curtis Meléndez, Status: Pen, Time: 1:15 PM NPV, Provider: Curtis Meléndez, Status: Pen, Time: 1:15 PM -[facility] 250 DO Work Phone: Start: 08-15-2022 US scan of aorta US aorta [facility] Start: 08-15-2022 US Thoracic and abdominal aorta [facility] Start: 08-08-2022 ambulatory Ambulatory Facility:H 1 Start: 07-31-2022 AOILIVC, Provider: FRANKIE LOYAI ULTRASOUND 01,[id number], Status: Pen, Time: 1:30 PM AOILIVC, Provider: FRANKIE HHVI ULTRASOUND 01,[id number], Status: Pen, Time: 1:30 PM [facility] Work Phone: Start: 06-04-2022 FUV, Provider: Cecilio Go, Status: Pen, Time: 11:30 AM FUV, Provider: Cecilio Go, Status: Pen, Time: 11:30 AM [facility] 250 DO Work Phone: Start: 02-06-2022 FUV, Provider: Cecilio Go, Status: Pen, Time: 8:50 AM FUV, Provider: Cecilio Go, Status: Pen, Time: 8:50 AM [facility] 250 DO Work Phone: Start: 12-11-2021 FUV, Provider: Cecilio Go, Status: Pen, Time: 11:20 AM FUV, Provider: Cecilio Go, Status: Pen, Time: 11:20 AM [facility] 250 DO Work Phone: Start: 04-30-2021 FUV, Provider: Cecilio Go, Status: Pen, Time: 1:20 PM FUV, Provider: Cecilio Go, Status: Pen, Time: 1:20 PM [facility] 250 DO Work Phone: Start: 02-15-2021 COVID-19 Vaccine (4 - Moderna series) COVID-19 Vaccine (4 - Moderna series) [facility] Start: 10-18-2005 Zoster Vaccines (1 o f 2) Zoster Vaccines (1 of 2) [facility] Start: 10-18-1977 DTaP/Tdap/Td Vaccine s (1 - Tdap) DTaP/Tdap/Td Vaccines (1 - Tdap) [facility] Start: 10-18-1973 Diabetes mellitus screening Diabetes Screening [facility] Start: 10-18-1973 Hepatitis C screening Hepatitis C [facility] Start: 1955 Lipid panel Lipid Panel [facility] Start: 1955 Medicare Annual Wellness Visit Medicare Annual Wellness Visit (AWV) [facility] Start: 1955 Screening for malignant neoplasm of colon [facility] CT Chest WO contrast [facility] Immunizations Immunization Date Immunization Notes Care Provider Rhys estevez 11-06-2022 influenza, high dose seasonal, preservative-free Carmen Miryam Other Phone: [facility] 12-26-2021 Fluad Quadrivalent 0 .5 ML Intramuscular Prefilled Syringe Jean Nicholson Work Phone: [facility] 250 DO Work Phone: 12-26-2021 influenza, seasonal, injectable Curtis Meléndez MD Work Phone: [facility] Work Phone: 12-21-2020 Pfizer-BioNTSummize COVID-19 Vacc 30 MCG/0.3ML Intramuscular Suspension Jean Nicholson Work Phone: [facility] 12-21-2020 pneumococcal conjuga te vaccine, 13 valent Jean Nicholson Work Phone: [facility] 12-21-2020 zoster vaccine recombinant Jean Nicholson Work Phone: [place] [address] DO Work Phone: 12-21-2020 zoster vaccine, unspecified formulation Curtis Meléndez MD Work Phone: [facility] Work Phone: 12-10-2020 Fluad Quadrivalent 0 .5 ML Intramuscular Prefilled Syringe Jean Nicholson Work Phone: [place] [address] DO Work Phone: 12-10-2020 influenza, seasonal, injectable Curtis Meléndez MD Work Phone: [facility] Work Phone: 06-21-2020 COVID-19 Vaccine Moderna - Documentation Purposes Only Danna Mcdaniel Other [facility] [employer] Other 05-09-2020 COVID-19 Vaccine Moderna - Documentation Purposes Only Danna Mcdaniel Other [facility] [employer] Other 01-04-2020 influenza, injectabl e, quadrivalent, preservative free Jean Nicholson Work Phone: [place] [address] DO Work Phone: 01-04-2020 influenza, seasonal, injectable Curtis Meléndez MD Work Phone: [facility] Work Phone: 01-04-2020 pneumococcal polysaccharide vaccine, 23 valent Jean Nicholson Work Phone: [facility] 12-20-2019 influenza, seasonal, injectable Jean Nicholson Work Phone: [facility] 10-25-2018 influenza, injectabl e, quadrivalent, preservative free Curtis Meléndez MD Work Phone: [facility] Work Phone: 10-25-2018 influenza, seasonal, injectable Jean Nicholson Work Phone: [facility] 250 DO Work Phone: 11-24-2017 influenza virus vaccine, unspecified formulation Jean Nicholson Work Phone: [facility] 250 DO Work Phone: 02-25-2016 pneumococcal polysaccharide vaccine, 23 valent Jean Saeed Gina Work Phone: [facility] Payers Date Payer Category Payer Medicare 2022 Self-pay [id number] 2022 Unknown 2020 Unknown [id number] 2.16 .[id number] 2020 Unknown [id number] 2.16.840 .1.692894.19 1959 Unknown [id number] 1955 Unknown [id number] 2.16.84 0.1.953126.3.579.2.593 1955 Unknown [id number] 2.16.84 0.1.396538.3.579.2.593 1955 Unknown [id number] 2.16.84 0.1.818479.3.579.2.593 1955 Unknown [id number] 2.16.84 0.1.964024.3.579.2.593 1955 Unknown [id number] 2.16.84 0.1.358056.3.579.2.593 1955 Unknown [id number] 2.16.84 0.1.799666.3.579.2.593 1955 Unknown [id number] 2.16.84 0.1.714679.3.579.2.593 1955 Unknown [id number] 2.16.84 0.1.984272.3.579.2.593 1955 Unknown [id number] 2.16.84 0.1.793805.3.579.2.593 1955 Unknown [id number] 2.16.84 0.1.397266.3.579.2.593 1955 Unknown [id number] 2.16.84 0.1.462389.3.579.2.593 1955 Unknown [id number] 2.16.84 0.1.040491.3.579.2.593 1955 Unknown [id number] 2.16. 840.1.620454.3.579.2.356 1955 Unknown [id number] 2.16. 840.1.744836.3.579.2.356 1955 Unknown [id number] 2.16.8 40.1.500329.3.579.2.1244 1955 Unknown [id number] 2.16.8 40.1.769527.3.579.2.8 1955 Unknown [id number] 2.16.8 40.1.373714.3.579.2.1068 1955 Unknown [id number] 2.16.8 40.1.676099.3.579.2.1068 1955 Unknown [id number] 2.16.8 40.1.421685.3.579.2.106 1955 Unknown [id number] 2.16.8 40.1.477723.3.579.2.8 1955 Unknown [id number] 2.16.8 40.1.481789.3.579.2.1068 1955 Unknown [id number] 2.16.8 40.1.045301.3.579.2.1068 1955 Unknown [id number] 2.16.8 40.1.190269.3.579.2.727 1955 Unknown [id number] 2.16.8 40.1.390272.3.579.2.727 1955 Unknown [id number] 2.16.84 0.1.969195.3.579.2.1246 1955 Unknown [id number] 2.16.84 0.1.159016.3.579.2.1246 1955 Unknown [id number] 2.16.84 0.1.949326.3.579.2.1246 1955 Unknown [id number] 2.16.84 0.1.725328.3.579.2.1246 1955 Unknown [id number] 2.16. 840.1.325754.3.579.2.196 1955 Unknown [id number] 2.16. 840.1.475827.3.579.2.196 1955 Unknown [id number] 2.16. 840.1.586977.3.579.2.196 Medicare [id number] 2.1 6.840.1.436213.19 Medicare [facility] [id number] Medicare [id number] Unknown [id number] 2.16.8 40.1.960676.3.579.2.531 Unknown [id number] 2.16.8 40.1.115181.3.579.2.531 Unknown [id number] 2.16.8 40.1.191831.3.579.2.531 Social History Date Type Detail Facility Start: 12-09-2022 Former smoker Former smoker -[facility] 250 DO Work Phone: Start: 12-09-2022 Sex Assigned At F [facility] Start: 07-14-2021 End: 12-09-2022 Tobacco smoking status NHIS Never smoked tobacco (finding) [facility] Start: 1955 Sex Assigned At Male F [facility] Tobacco smoking consumption unknown [facility] Start: 12-18-2020 End: 08-21-2023 Tobacco smoking status Ex-smoker (finding) [facility] Start: 12-09-2022 Tobacco use and exposure Smokeless tobacco non-user [facility] Work Phone: Start: 12-09-2022 Alcohol intake Lifetime non-d lalo (finding) [facility] Work Phone: Start: 1955 Sex Assigned At Not on file [facility] Work Phone: Start: 02-18-2023 End: 06-03-2023 Exposure to SARS-CoV-2 (event) Not sure [facility] Functional Status Date Assessment Result Facility 12-23-2022 Functional Status N/A [facility] [place] Functional observable [facility] Mental Status Date Assessment Result Facility 11-06-2022 Cognitive functions 48589:[id number] [facility] Clinical Notes 11-30-2020 to 06-03-2023 Curtis Meléndez MD - 06/03/2023 1:45 PM Melani Melnédez MD - 02/28/2023 1:15 PM EST Note Date & Type Note Facility 06-03-2023 History of Present illness Narrative Erik Morales is a 67 y.o. male who presents for Follow-up of the Lower Back ((L3-4 Lateral lumbar Fusion above prior L4-5 Fusion/L2-3, L3-4 Midline Lami from 11/04/22, xrays 6 months out). HPI: 67-year-old gentleman here for surgical follow-up. He is 6 months out from an L3-4 stand-alone lateral lumbar fusion above a prior construct. He denies any fever chills nausea vomiting night sweats. He has no bowel or bladder complaints. Physical exam: Well-nourished, well kept.No lymphangitis or lymphadenopathy in the examined extremities. Gait normal. Can can on heels and toes. Examination of the back shows minimal tenderness in the paraspinous musculature. There is no significant decreased range of motion in all directions due to guarding/muscle spasms and pain at extremes. There is good strength and no instability. Examination of the lower extremities reveals no point tenderness, swelling, or deformity. Range of motion of the hips, knees, and ankles are full without crepitance, instability, or exacerbation of pain. Strength is 5/5 throughout. No redness, abrasions, or lesions on extremities Gross sensation intact in the extremities. Affect normal. Alert and oriented 3. Coordination normal. Incision on the left lateral side is very well-healed. Imaging studies: AP lateral plain films were ordered and reviewed today of the lumbar spine. Assessment: 67-year-old gentleman is here for surgical follow-up he is 6 months out from an L3-4 stand-alone lateral lumbar fusion above a prior construct. He is doing well today. He says he is probably 90% better. He gets a little ache and stiffness here and there but overall he is doing well. He did do some physical therapy since his last visit and is doing home exercises now. For complete plan and/or surgical details, please refer to Dr. Meléndez's portion of this split dictation. -Nicolas Kohli PA-C In a [id number] encounter, I performed a history and physical examination, discussed pertinent diagnostic studies if indicated, and discussed diagnosis and management strategies with both the patient and the midlevel provider. I reviewed the midlevel's note and agree with the documented findings and plan of care. Patient doing very well 6 months out from an L3-4 lateral lumbar fusion above a prior L4-5 L5-S1 fusion. He is 90% improved. If he feels limited pain he does backs off and when he is doing and then he feels better again. He still doing his home therapy exercises. X-rays look good today with good positioning of hardware. We are going to let him engage in activities as tolerated and follow-up with us in 6 months for AP lateral x-rays of the lumbar spine. Curtis Meléndez MD Orthopedic surgery documented in this encounter [facility] Work Phone: 02-28-2023 History of Present illness Narrative Erik [...] portion of this split dictation. In a [id number] encounter, I performed a history and physical [...] the lumbar spine. documented in this encounter [facility] Work Phone: 12-23-2022 Hospital Discharge instructions [...] treatment? Where to find more information [employer]: www.cancer.org [employer]: www.auanet.org Contact a health care [...] provider. Document Revised: 08/06/2021 Document Reviewed: 08/06/2021 [employer] Patient Education 2022 [email or web address]. Follow Up Care 12/21/2021 12:26:12 With:RAINER JIMENEZ, Marino Calabrese, URL Address: [facility] [address] , [place] [phone] When: Unknown Comments:1 yr w/ PSA [facility] 11-07-2022 Note Send Summary: Discharge Summary Providers: Provider RoleProvider Name Carmen Conner Robert ConsultingKher, Cayden PrimaryHoy, Carmen M Note Recipients: Curtis Meléndez MD - [id number] [Preferred] Carmen Witt MD - [id number] [] Cayden Flores MD Discharge: Summary: Admission Date: .04-Nov-2022 05:14:00 Discharge Date: 07-Nov-2022 Attending Physician at Discharge: Curtis Meléndez Admission Reason: Lumbar stenosis and spondylolisthesis(1) Final Discharge Diagnoses: Back pain Procedures: Date: 04-Nov-2022 13:07:00 Procedure Name: 1. 2. 3. 4. 5. Condition at Discharge: Satisfactory Disposition at Discharge: .Home Vital Signs: T PRBPMAPSpO2 [id number]% Date/Time11/07 8:5611/07 8:5611/07 8:5611/07 8: 21:0811/07 8:56 Range(36.7C - 37.1C ) [...] ice every hour for 15-30 minutes Wear orbert hose for three weeks Immunizations: Immunizations: 06-Nov-2022 [...] please call ahead and schedule appointment Location: [address] [facility] Phone Number: [phone] Discharge Medications: Home Medication furosemide 20 mg [...] tab(s) orally once a day Potassium Chloride (Ggu-Nbei-Scy 10) 10 mEq oral tablet, extended release [...] time of discharge: Full Code Electronic Signatures: LisandroGilda guzmán (AUTISM MOTOR SPECIALIST-LOSS PREVENTION ANALYST) (Signed 07-Nov-2022 09:26) Authored: Send Summary, Summary Content, Immunizations, Ongoing Care, DNR Status, Note Completion Last Updated: 07-Nov-2022 09:26 by Gilda Mcmahon (AUTISM MOTOR SPECIALIST-LOSS PREVENTION ANALYST) References: 1. Data Referenced From [facility] Internal Medicine 04-Nov-2022 16:29 [facility] 11-04-2022 Note Post Operative Note: Post-Procedure Diagnosis: Lumbar stenosis and spondylolisthesis Procedure: 1. 2. 3. 4. 5. Surgeon: Ángela Resident/Fellow/Other Train Engineer: Alice Estimated Blood Loss (mL): 100 cc Specimen: no Findings: Lumbar stenosis and spondylolisthesis Operative Report Dictated: Dictation: not applicable - note contains Operative Report Note Recipients: Curtis Meléndez MD - [id number] [Preferred] Carmen Witt MD - [id number] [] Operative Report: Preoperative diagnosis: L2-3 and [...] Curtis Meléndez M.D. Asst.: Sonu HillThe physician sound assistant was present through the entire case. Given the nature of the disease process and the procedure to be performed a skilled surgical appliances salesperson was necessary during the case. The sound assistant was necessary in order to hold retractors and directly assist in the operation. A certified solid waste facility operator was at the back table managing instruments [...] the large dilat (more content not included)... [facility] 11-04-2022 Reason for referral (narrative) Reason for Referral: Surgery 11.04.2022 L3-4 lateral interbody fusion, L2-3 and L3-4 laminectomy and posterior lateral fusion, L3-4 lateral instrumentation, thermal ablation of median nerve to L2-3 and L3-4 [facility] 10-30-2022 Evaluation note Encounter Date Diagnosis Assessment Notes Oct, Diastolic dysfunction (ICD-10 - I51.89) Continue all recommendati on/medicatio ns per your Vp Director Of Creative Strategy . Oct, ILD (interstitial lung disease) (ICD-10 - J84.9) Pulmonary Function Test as scheudled prior to next office appointment. [facility] Other 07-27-2023 History of Present illness NarrativeGarry is a 67-year-old gentleman here for preop [...] has no bowel or bladder complaints[facility] Work Phone: [phone]) 621-925406-27-2023 Evaluation note* Encounter Date Diagnosis Assessment Notes Treatment Notes Treatment Clinical Notes Jul, Diastolic dysfunction (ICD-10 - I51.89) Jul, ILD (interstitial lung disease) (ICD-10 - J84.9) I reviewed results and images of your Chest CT completed at [facility] 10/2021 and 01/2022. There is evidence of very mild fibrosis (scarring). Continue with physcial activity as you are. [facility] Other 06-22-2023 Evaluation note* Encounter Date Diagnosis [...] agrees with plan, and denies any questions. [facility] Other 03-16-2023 NoteCONSULTATION CONSULTATION DATE: 05/09/2022 HISTORY: [...] is currently under the care of a masking machine operator. Most recent physician appointment does show that his lungs are slowly improving. He does have a Cardiology appointment on 06/13/2022, and at that time, he will discuss with the conference assistant regarding possible use of sedation and holding [...] otherwise indicated. Patient agrees with this care.[facility] [id number] NoteCONSULTATION CONSULTATION DATE: 02/07/2022 HISTORY OF PRESENT [...] still being followed up with Pulmonology in [place] at [facility] and, most recently, they feel he [...] up in three months, unless otherwise indicated.[facility] [id number] Evaluation note* Encounter Date Diagnosis Assessment Notes Treatment Notes Treatment Clinical Notes Jan, Diastolic dysfunction (ICD-10 - I51.89) Jan, ILD (interstitial lung disease) (ICD-10 - J84.9) I will look at Chest CT from [place] and let you know if any further testing is needed. Jan, Dyspnea (ICD-10 - R06.00) [facility] Other 10-04-2022 NoteCONSULTATION CONSULTATION DATE: 11/27/2021 CHIEF [...] is under the care of Dr. Go, conference assistant, who has suggested that the patient not hold the Eliquis for any treatment right now and, as such, we will maintain a conservative approach. IMPRESSION: As such, the patient's current working diagnosis is chronic low back pain, new diagnosis of cystic fibrosis. A recent CT of the lung was performed and the patient is under the care of [facility]. The patient is also under anticoagulation therapy. PLAN: We will refill the patient's Percocet 5/325 b.i.d. The patient will be returning in clinic as needed. The patient has had a rhizotomy, radiofrequency along the low back and, as such, is stable with regards to his low back.[facility] [id number] NoteCONSULTATION CONSULTATION DATE: 08/30/2021 This is a [...] past he had been diagnosed with an NE in addition to an aneurysm and cystic fibrosis. The patient was worked up in the emergency department and it was found that he had multiple PEs in his lungs and in his right lower leg. The patient was transferred to [facility] where the large PE was surgically removed. [...] and Approved by: LAUREN BAUMANN . 09/06/2021 09:46:00[facility]06-28-2022 Evaluation note* Encounter Date Diagnosis Assessment [...] physcial activity....walk 3-4x a day to start. [facility] Other 06-22-2022 Evaluation note* Encounter Date Diagnosis [...] the plan all his questions were addressed. [facility] Other 10-07-2021 Evaluation note* Encounter Date Diagnosis [...] Nov, Other Try Mylanta for acid reflux. [facility] Other Evaluation + Plan note Future Appointments Appointment Date:12/26/2023 11:00:00 AM Scheduled Provider:Marino SPEAR MD Location:[facility] Appointment Type:URO Office Visit Diagnostic Tests Pending * PSA Total 12/23/22 [facility] Alphonso evaluation noteNo InformationNort [employer] Other Evaluation noteNo assessment information available [facility] Work Phone: Evaluation note* Constitutional: Well [...] senses, motor, response and reflexes, normal strength [facility] Diagnosis Low back pain, unspecified back pain laterality, unspecified chronicity, unspecified whether sciatica present- Primary documented in this encounter [facility] Work Phone: Evaluation note* Diagnosis Onset Date Resolution Status Grade I diastolic dysfunction acute Pulmonary fibrosis acute [facility] Work Phone: Evaluation note* Diagnosis Low back pain, unspecified back pain laterality, unspecified chronicity, unspecified whether sciatica present- Primary Lumbar pain Lumbago documented in this encounter [facility] Work Phone: Evaluation note* Diagnosis Lumbar pain Lumbago documented in this encounter [facility] Work Phone: Evaluation note* Diagnosis Onset Date Resolution Status AAA (abdominal aortic aneurysm) acute [facility] Work Phone: Hisvehf general Narrative - Reported* Type Description Date Medical History COPD Medical History asthma Medical History sleep apnea (negative PSG) Medical History aaa Medical History pe Surgical History spine 2001 Surgical History neck 2004 Surgical History prostate biopsy 2017 Surgical History dental extraction Hospitalization History as above Hospitalization History pe 2021 [facility] Other Hiszgnr general Narrative - Reported* Type Description Date Medical History NOEL Medical History COPD Medical History asthma Medical History sleep apnea Surgical History spine 2001 Surgical History neck 2004 Surgical History prostate biopsy 2017 Hospitalization History as above [facility] Other Hisdfcb general Narrative - Reported* Type Description Date Medical History COPD Medical History asthma Medical History sleep apnea (negative PSG) Surgical History spine 2001 Surgical History neck 2004 Surgical History prostate biopsy 2017 Hospitalization History as above Skai Other Hisgkcr general Narrative - Reported* Type Description Date Medical History COPD Medical History asthma Medical History sleep apnea (negative PSG) Medical History aaa Medical History pulmonary embolism Surgical History spine 2001 Surgical History neck 2004 Surgical History prostate biopsy 2017 Surgical History dental extraction Hospitalization History as above Hospitalization History pulmonary embolism [facility] 06/2021 Skai Other Hisswdh general Narrative - Reported* Type Description Date Medical History COPD Medical History asthma Medical History sleep apnea (negative PSG) Medical History aaa Medical History pulmonary embolism Medical History interstitial lung disease Medical History diastolic dysfunction Surgical History spine 2001 Surgical History neck 2004 Surgical History prostate biopsy 2017 Surgical History dental extraction Hospitalization History as above Hospitalization History pulmonary embolism [facility] 06/2021 Skai Other History of Present illness NarrativeErik is [...] to the pain management center down in [place].[facility] Work Phone: Hospital course Narrative No data available for this section [facility] Hospital Discharge instructions* Activity:activity as tolerated. May [...] weeks, please call ahead and schedule appointmentLocation: [address] [facility]: [phone] [facility] No data available for this section [facility] Chief Complaint Pt came in today for [...] office for follow-up for recent admission to [facility] with bilateral pulmonary embolism leading to RV [...] pulmonary embolism. Recently follow-up CT scan at [facility] revealed resolution of the pulmonary emboli. Some other pathology was noted with densities requiring follow-up imaging in 3 to 6 months which has been arranged through his PCP. He is cu rrently anticoagulated with Eliquis. The patient is contemplating further dental work in December which he should be able to hold anticoagulation prior to. Recent nuclear stress test at [facility] was reviewed and shared with the patient and was normal. He is also known to have normal ejection fraction. He currently has no complaint to report physical examination was only remarkable for 8 pounds weight gain from last visit. He is now in the obesity range recent medical record from [facility] were reviewed with the patient and reviewed [...] with anticoagulation to be monitored closely ERIK MORALES is being seen for a 6 month follow-up of.new patient. low back pain with RT sided pain to nee x 2 months. h/o sx in 1998. thoracic and lumbar xrays and MRI in [place]. brought a disc.new patient. low back pain with RT sided pain to nee x 2 months. h/o sx in 1998. thoracic and lumbar xrays and MRI in [place]. brought a disc.F/U Lumbar after therapy, says [...] Malignant neoplasm Unknown brother Malignant neoplasm Unknown brother Heart disease Unknown Malignant neoplasm Unknown Hypertension Unknown Diabetes mellitus Unknown Unknown family member Unknown Not Specified Heart disease Unknown Relationship Condition Age at Onset Recorded Date/T crista mother Malignant neoplasm Unknown Heart disease Unknown father Malignant neoplasm Unknown brother Malignant neoplasm Unknown brother Heart disease Unknown Malignant neoplasm Unknown Hypertension Unknown Diabetes mellitus Unknown Unknown family member Unknown mother Heart disease Unknown Summary Purpose Advance Directives No Advanced Directives Records Found Advance Directive Response Recorded Date/ Time Advance Directives No July 27 12:04pm Advance Directive Response Recorded Date/ Time Advance Directives No July 27 11:04am Advance Directive Response Recorded Date/ Time Advance Directives Yes March 10:44am Advance Directive Response Recorded Date/ Time Advance Directives Yes March 11:44am Chief Complaint and Reason for Visit Chief Complaint I71.4 Chief Complaint j84.9 Chief Complaint j84.9 6 Month f/u- Interstitial Lung Disease Reason for Visit Grade I diastolic dy sfunction Pulmonary fibrosis Chief Complaint j84.9 6 Month f/u- Interstitial Lung Disease J84.10 Reason for Visit Grade I diastolic dy sfunction Pulmonary fibrosis Chief Complaint 1 YR F/U; ABD U/S 10 A I71.4 Reason for Visit AAA (abdominal aorti c aneurysm) Reason for Referral Specialty Diagnoses / Procedures Referred By Contac t Referred To Contact Radiology Diagnoses Lumbar pain Procedures XR lumbar spine 2-3 views Curtis Meléndez MD [address] [facility], [address] [place] [id number] Referral ID Status Reason Start Date Expiration Date Visits Requested Visits Authorized [id number] Authorized Perform Procedure 06/03/2023 06/02/2024 1 1 Specialty Diagnoses / Procedures Referred By Contac t Referred To Contact Radiology Diagnoses Low back pain, unspecified back pain laterality, unspecified chronicity, unspecified whether sciatica present Procedures XR lumbar spine 2-3 views Curtis Meléndez MD [address] [facility], [address] [place] [id number] Referral ID Status Reason Start Date Expiration Date Visits Requested Visits Authorized [id number] Authorized Perform Procedure 02/28/2023 02/28/2024 1 1 Additional Source Comments REASON FOR VISIT (unrecogniz ed section and content) Reason Comments Follow-up L3-4 Lateral lumbar Fusion above prior L4-5 Fusion/L2-3, L3-4 Midline Lami from 1/2 months out w/x-rays Reason Comments Follow-up (L3-4 Lateral lumbar Fusion above prior L4-5 Fusion/L2-3, L3-4 Midline Lami from 11/04/22, xrays 6 months out Specialty Diagnoses / Procedures Referred By Contac t Referred To Contact Radiology Diagnoses Lumbar pain Procedures XR lumbar spine 2-3 views Ángela, Curtis J, MD [address] [facility], [address] [place] [id number] Referral ID Status Reason Start Date Expiration Date Visits Requested Visits Authorized [id number] Authorized Perform Procedure 06/03/2023 06/02/2024 1 1 (unrecognized sect ion and content) No Status Records FoundNo Status Records FoundNo Status Records FoundNo Status Records FoundNo Status Records FoundNo Status Records FoundNo Status Records FoundNo Status Records FoundNo Status Records Found INFORMATION SOURCE (unrecogn ized section and content) DATE CREATED AUTHOR 07/07/2022 [facility] [place] [facility] DATE CREATED AUTHOR AUTHOR'S ORGANIZ ATION 10/25/2022 [facility] DATE CREATED AUTHOR AUTHOR'S ORGANIZ ATION 11/29/2022 [employer] DATE CREATED AUTHOR AUTHOR'S ORGANIZ ATION 12/11/2022 [facility] DATE CREATED AUTHOR AUTHOR'S ORGANIZ ATION 12/14/2022 [facility] DATE CREATED AUTHOR AUTHOR'S ORGANIZ ATION 12/24/2022 [facility] DATE CREATED AUTHOR AUTHOR'S ORGANIZ ATION 06/08/2023 [facility] DATE CREATED AUTHOR AUTHOR'S ORGANIZ ATION 07/01/2023 [facility] DATE CREATED AUTHOR AUTHOR'S ORGANIZ ATION 08/22/2023 [facility] Care Teams (unrecognized sec tion and content) Team Status: Active Member Role Status Dates Jean Nicholson MD Primary Care Provider Active Team Status: Inactive Member Role Status Dates Jean Nicholson MD Primary Care Provider Active EDEL Ervin Attending Provider Active 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 Start Date End Date Carmen Witt MD [address] [place] [address] PCP - General 06/04/22 Team Status: Inactive Member Role Status Dates Jean Nicholson MD Primary Care Provider Active Danna Mcdaniel APRN [facility] Attending Provider Active Team Status: Inactive Member Role Status Dates Jean Nicholson MD Primary Care Provider Active S tart: March 04, 2023 End: March 04, 2023 Danna Mcdaniel APRN [facility] Attending Provider Active Start: March 04, 2023 End: March 04, 2023 Team Status: Inactive Member Role Status Dates Jean Nicholson MD Primary Care Provider Active S tart: April 09, 2023 End: April 09, 2023 Danna Mcdaniel APRN [facility] Attending Provider Active Start: April 09, 2023 End: April 09, 2023 Team Status: Active Member Role Status Dates Carmen Witt MD Primary Care Provider Active Team Status: Inactive Member Role Status Dates Danna Mcdaniel APRN [facility] Attending Provider Active Start: April 14, 2023 End: April 14, 2023 Carmen Witt MD Primary Care Provider Active Start: April 14, 2023 End: April 14, 2023 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 Start Date End Date Carmen Witt MD [address] [place] [address] PCP - General 06/04/22 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 Start Date End Date Carmen Witt MD [address] [place] [address] PCP - General 06/04/22 Team Status: Inactive Member Role Status Dates Julian Matthews MD Attending Provider Active Start: August 21, 2023 End: August 21, 2023 Carmen Witt MD Primary Care Provider Active Start: August 21, 2023 End: August 21, 2023 Team Status: Inactive Member Role Status Dates Carmen Witt MD Primary Care Provider Active Start: August 21, 2023 End: August 21, 2023 Bianka Garcia NP-C Attending Provider Active Start: August 21, 2023 End: August 21, 2023 Goals (unrecognized section and content) Goals may [...] BE BASED ON THE PRIMARY CLINICAL RECORDS. [employer] [facility]. provides no warranty or guarantee of the accuracy or completeness of information in this document.
[2023-08-29 10:43] LABS: Free T3 3.13 pg/mL (2.18-3.98); Thyroid Stimulating Hormone 0.644 uIU/mL (0.358-3.740)
== END 2023-08-29 08:58 | disposition home or self-care (01) ==
LOC: LAB 08:59
PROVIDERS: PCP Family Medicine; Visit Provider Nurse Practitioner Family
DX: E03.9 Hypothyroidism, unspecified (principal)
CPT/HCPCS: 36415; 84436; 84443; 84481

== ENCOUNTER 2023-09-04 13:10 | Outpatient (OUT) | payer OTHER, SELFPAY ==
--- NOTE | 2023-09-04 13:34 | PM.CN ---
Consult Note: HPI Data of Consult Patient: known to practice within the last 3 years Consult date: 04/07/23 Requesting Physician: Mercedes Massey NP Primary Care Provider: Radames Ricks MD Consult Narrative Reason for consult: right hip, right low back, right leg pain Narrative: 67yom who presents for assessment. worsening right low back, leg, hip pain. imaging reviewed, which shows multilevel degenerative changes and stenosis, as well as fusion from l4-s1. has continued in provider directed home exercise program >6 weeks, with minimal benefit. tender over right greater trochanter. uses celebrex and baclofen as needed. denies adverse med side effects. Previously underwent caudal BRIAN with >50% improvement greater than 3 months. Patient find mild to moderate benefit from right GTB injection. Today pain in right hip 3/10. Pain in low back and legs increasing to 10/10 with standing and walking. cc:: CC: Mercedes Massey NP Review of Systems ROS Status of ROS 10 or more systems reviewed and unremarkable except as noted in history and below Musculoskeletal Reports: back pain, extremity pain and joint pain PFSH PFSH Medical History Fixation hardware in spine ?Z96.7 - Presence of other bone and tendon implants (ICD-10) Fusion of lumbar spine ?M43.26 - Fusion of spine, lumbar region (ICD-10) Pulmonary embolism ?I26.99 - Other pulmonary embolism without acute cor pulmonale (ICD-10) Generalized weakness ?R53.1 - Weakness (ICD-10) Meds Home Medications and Allergies Home Medications ?Medication ?Instructions ?Recorded ?Confirmed ?Type acetaminophen 325 mg tablet 325 mg PO Q6H PRN pain 09/06/22 05/19/23 History (Tylenol) albuterol sulfate 90 mcg/actuation 2 puff inhalation Q4H PRN 09/06/22 05/19/23 History aerosol inhaler shortness of breath or wheezing apixaban 5 mg tablet (Eliquis) 5 mg PO Q12H 09/06/22 05/19/23 History atorvastatin 40 mg tablet 40 mg PO QDAY 09/06/22 05/19/23 History baclofen 10 mg tablet 10 mg PO QDAY 09/06/22 05/19/23 History furosemide 20 mg tablet 20 mg PO QDAY 09/06/22 05/19/23 History lisinopril 20 mg tablet 20 mg PO QDAY 09/06/22 05/19/23 History metoprolol tartrate 25 mg tablet 25 mg PO Q12H 09/06/22 05/19/23 History nortriptyline 25 mg capsule 25 mg PO BEDTIME 09/06/22 05/19/23 History omeprazole 40 mg capsule,delayed 40 mg PO QDAY 09/06/22 05/19/23 History release oxybutynin chloride 10 mg 10 mg PO QDAY 09/06/22 05/19/23 History tablet,extended release 24 hr oxycodone-acetaminophen 5 mg-325 1 tab PO BID PRN pain 09/06/22 05/19/23 History mg tablet potassium chloride 10 mEq 10 meq PO QDAY 09/06/22 05/19/23 History tablet,extended release docusate sodium 100 mg capsule 100 mg PO BID 11/08/22 05/19/23 History oxycodone-acetaminophen 5 mg-325 1 tab PO BID PRN pain #60 tabs 05/28/23 Rx mg tablet (Percocet) nortriptyline 25 mg capsule 25 mg PO .hs #30 caps 06/30/23 Rx oxycodone-acetaminophen 5 mg-325 1 tab PO BID PRN pain #60 tabs 06/30/23 Rx mg tablet (Percocet) oxycodone-acetaminophen 5 mg-325 1 tab PO BID PRN pain #60 tabs 07/29/23 Rx mg tablet (Percocet) Allergies Allergy/AdvReac Type Severity Reaction Status Date / Time No Known Drug Allergies Allergy Verified 05/19/23 09:58 Exam Constitutional Documenting provider has reviewed patient's vital signs: yes Common normals: no apparent distress, oriented x3, healthy appearing, alert and well nourished General appearance: cooperative [facility] Common normals: normocephalic, hearing grossly normal bilaterally and moist oral mucous membranes Head and scalp: normocephalic Eye Common normals: PERRL Pupil: PERRL Neck & C-Spine Common normals: full ROM General: normal visual inspection Chest Common normals: inspection of chest normal Respiratory Common normals: normal respiratory effort, no retractions and no use of accessory muscles Back & Pelvis Lumbar spine/lower back: ROM limited, pain with ROM, straight leg raise positive right and straight leg raise positive left Sacroiliac joints: SI joints normal Other: surgical scar healed, no redness tenderness or warmth Extremity Common normals: normal to inspection and full ROM Neuro Common normals: oriented x3, CN's II-XII intact bilaterally, moves all extremities, no focal motor deficits, no sensory deficits noted and deep tendon reflexes 2+ bilaterally Sensorium/orientation: alert Motor exam: no movement abnormalities noted and strength abnormal (4/5 in BLE) Psych Common normals: mental status grossly normal, thought process normal, cooperative, affect normal, speech normal and activity/motor behavior normal Speech: normal speech Thought process: normal thought process Results Additional Findings Additional findings: If on a controlled substance or opioids, I have checked an [place]AR[place] report on this patient and there are no aberrancies noted in the prescribing history.??If on a controlled substance or opioid a drug screen was completed and reviewed within the last year, and if there has not been a drug screen completed we ordered one today to monitor higher risk, state monitored pain medication use. As part of providing excellent, safe, comprehensive care, the following was completed at our patient's visit: 1. A medication reconciliation and review to ensure accurate knowledge of current/active medications, including asking our patients to inform us about any [id number] medications or herbal remedies/nutritional supplements/alternative remedies. 2. A review to specifically ensure our patients have had annual screening for screening for depression, screening for tobacco use, and screening for unhealthy alcohol use. For concerning screenings had a discussion with the patient, provided patient education, and recommended follow-up with primary care provider when appropriate. If patient noted with a risk of falling, they received education on strength, gait, and balance training to prevent future risk of falling. Assessment and Plan Assessment and Plan (1) Lumbar stenosis with neurogenic claudication: Assessment and Plan: >80% improvement ongoing from caudal BRIAN (2) Lumbar postlaminectomy syndrome: (3) Greater trochanteric bursitis: Qualifiers: Laterality: right Qualified Code(s): M70.61 - Trochanteric bursitis, right hip (4) Failed back syndrome: (5) Encounter for long-term use of opiate analgesic: Assessment and Plan: I feel these medications are improving the patient's quality of life and allow them to tolerate activities of daily living as well as participate in recreational activity.? The patient does not report intolerable side effects. The patient is NOT opioid naive and non-pharmacologic and non-opioid treatment has failed to significantly relieve the patient's pain and improve functionality. The patient has a diagnosis that is related to a somatic or visceral pain etiology. ? ?? I reviewed with the patient the potential risks and side effects with the use of? opioid medications including but not limited to respiratory depression,? sedation, and even . I verified the patient has access to naloxone should? these effects occur. I advised the patient to avoid the use of any other? sedation substances including alcohol, THC, and benzodiazepines while? taking opioid medications due to the risk of compounding side effects and? detrimental outcomes. I reviewed the RECEPTION SPECIALIST, pain treatment agreement, urine? drug screen, and opioid start talking forms. The patient was advised to let? their family know they had Naloxone in case they would need to administer? the medication.? ?? A drug screen was completed within the last year, and no aberrancies were noted regarding their use of controlled substances. The patient understands they are subject to the terms and conditions of the pain contract that they have signed. ? ?? I have checked an [place]AR[place] report on this patient today and there are no aberrancies noted in the prescribing history.? Plan repeat caudal BRIAN under fluoroscopy, previous BRIAN provided >50% improvement in pain and functional ability greater than 3 months, we will request 3 day hold of eliquis continue current medications, tolerating well without side effects UDS today OFFICE SYSTEMS TECHNOLOGY INSTRUCTOR reviewed and signed f/u 2 weeks after BRIAN
== END 2023-09-04 13:11 ==
LOC: PM 13:10
PROVIDERS: PCP Family Medicine; Visit Provider Nurse Practitioner
DX: M48.062 Spinal stenosis, lumbar region with neurogenic claudication (principal); M96.1 Postlaminectomy syndrome, not elsewhere classified; M70.61 Trochanteric bursitis, right hip; Z79.899 Other long term (current) drug therapy
CPT/HCPCS: G0463

== ENCOUNTER 2023-09-22 09:30 | Day surgery (SDC) | payer OTHER, SELFPAY ==
[2023-09-22 09:38] VITALS: BP 114/75; PULSE 70; TEMP 36.2; O2SAT 95
--- OUTSIDE RECORDS SUMMARY | 2023-09-22 09:42 | XMS_ITS | CCD ---
Author Organization [facility] Care Team Providers Care Clinical Law Professor Name Role Phone Jean Nicholson Unavailable Unavailable Unavailable Julian Matthews Unavailable [phone] Bianka Garcia Unavailable Danna Mcdaniel Unavailable [...] Unavailable MD Jean Nicholson Primary Care Provider [phone] EDEL Garcia Attending Provider Gina, Dr. Jaen Carvajal Primary Care Unagabbi Go, Dr. Cecilio [...] Unavail able Ángela, Dr. Curtis Keys Attending [facility] dionna Millsahim, Dr. Cecilio Harman Attending [...] Provider MD Jean Nicholson Primary Care Provider [phone] JESSICA Mcdaniel Attending Provider [phone] MD Carmen Witt Primary Care Provider [phone] CURTIS MELÉNDEZ Attending Unavailable CARMEN WITT [...] (1 source) Nitroglycerin Drug Allergy 4 Unresponsive [facility] (20 sources) Nitroglycerin; Translations: [nitroglycerin] Drug Allergy 2 Other [facility] (9 sources) Nitroglycerin Drug Allergy Unknown [employer] Other (1 source) Aminolevulinic Acid Drug Allergy [facility] Repository (2 sources) Nitroglycerin Drug Allergy [address] [place] [address] Repository Medications Current Medications Medication Drug Class(es) [...] than prescribed may cause serious breathing problems. 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) drug therapy; Translations: [OTH HADOOP ADMINISTRATOR CURRENT DRUG THERAPY] Onset: 07-17-2021 Episodic Other [...] Range Facility US aorta 08-21-2023 US aorta [facility] [address] [place] [address] Ultrasound Report Signed Patient: Erik Morales MR#: [id number] : 1955 Acct:[id number] Age/Sex: 67 / M ADM Date: 08/21/23 Loc: [facility] Room: Type: [facility] Attending Dr: Bianka Garcia JIG WORKER-C Ordering Provider: Bianka Garcia APRN Date of Service: 08/21/23 US/US aorta: I71.4 Copies to: Bianka Garcia APRN ULTRASOUND OF THE ABDOMINAL AORTA: CLINICAL INFORMATION: [place] aortic aneurysm. COMPARISON : 3.4 cm infrarenal [...] Julian Matthews MD08/21/2023 2:21 PM Dictation Location: [place] [address] Tech: Elham Rivera Transcribed By: [facility] 08/21/23 1421 Dictated By: Julian Matthews MD 08/21/23 1419 Signed By: 08/21/23 1421 [facility] XR LUMBAR SPINE 2-3 VIEWSon 06-03-2023 XR LUMBAR SPINE 2-3 VIEWS Interpreted By: Curtis Meléndez, STUDY: XR LUMBAR SPINE 2-3 VIEWS; 06/03/2023 1:42 pm INDICATION: Signs/Symptoms:pain. ACCESSION NUMBER(S): [id number] ORDERING CLINICIAN: CURTIS MELÉNDEZ FINDINGS: AP lateral [...] Curtis Meléndez 06/03/2023 1:56 PM Dictation workstation: [id number] [facility] XR Lumbar spine 2 or 3 Views on 06-03-2023 Interpreted By: Curtis Love, STUDY: XR LUMBAR SPINE 2-3 VIEWS; 06/03/2023 1:42 pm INDICATION: Signs/Symptoms:pain. ACCESSION NUMBER(S): [id number] ORDERING CLINICIAN: CURTIS MELÉNDEZ FINDINGS: AP lateral [...] Curtis Meléndez 06/03/2023 1:56 PM Dictation workstation: [id number] Curtis Meléndez MD - 06/03/2023 Interpreted By: Curtis Meléndez, STUDY: XR LUMBAR SPINE 2-3 VIEWS; 06/03/2023 1:42 pm INDICATION: Signs/Symptoms:pain. ACCESSION NUMBER(S): [id number] ORDERING CLINICIAN: CURTIS MELÉNDEZ FINDINGS: AP lateral [...] Curtis Meléndez 06/03/2023 1:56 PM Dictation workstation: [id number] [facility] Work Phone: [facility] Work Phone: Radiology Study observation (narrative) [facility] Work Phone: CT chest wo con high reson 0 04-15-2023 CT chest wo con high res [facility] [place] [address] CT Scan Report Signed Patient: Erik Morales MR#: [id number] : 1955 Acct:[id number] Age/Sex: 67 / M ADM Date: 04/14/23 Loc: CT Room: Type: [facility] Attending Dr: Danna Mcdaniel APRN, ISATU Copies [...] Christopher Cline M.D.04/15/2023 9:21 AM Dictation Location: [place] [address] Transcribed By: [facility] 04/15/23920 Dictated By: Christopher Cline DO 04/15/23 0904 Signed By: 04/15/23 09 Normal [facility] XR LUMBAR SPINE 2-3 VIEWSon 02-28-2023 XR LUMBAR SPINE 2-3 VIEWS Interpreted By: Curtis Meléndez, STUDY: XR LUMBAR SPINE 2-3 VIEWS; ; 02/28/2023 1:37 pm INDICATION: Signs/Symptoms:low back pain. ACCESSION NUMBER(S): [id number] ORDERING CLINICIAN: CURTIS MELÉNDEZ FINDINGS: AP lateral [...] Curtis Meléndez 02/28/2023 3:09 PM Dictation workstation: [id number] [facility] Lab Reportson 12-24-2022 Lab Reports [id number]#[id number] [facility] Patient Educationon 12-24-19 Patient Education Oncology Prostate [...] Where to find more information ? The [place] [employer]: www.cancer.org ? [place] [employer]: www.auanet.org Contact a health care [...] adds flu (more content not included)... Normal [facility] Physician Orderon 12-23-2022 Physician Order [id number]#1.00TIFF [facility] Urology Office/Clinic Noteon 12-23-2022 Urology Office/Clinic Note [...] [facility] [address], [place] [phone] Additional Instructions: 1 yr w/ PSA Patient [...] Dipstick: Negative (more content not included)... Normal [facility] Comment on above: Result Comment: Elec tronically Signed By: RAINER JIMENEZ, Marino R\.br\Date and Time Signed: 12/23/22 12:01 EDT\.br\Electronically Co-Signed By: Skye Miller\.br\Date and Time Co-Signed: 12/23/22 11:59 EDT Post Op (Orthopaedic Surgery )on 11-19-2022 Post Op (Orthopaedic Surgery) Orders Back pain Xray BN Spine, Lumbosacral; 2 or 3 Views; Status:Complete; Done: [id number] 02:21PM Radiologist to Determine Optimal Study : [...] Xray BN Spine, Lumbosacral; 2 or 3 [id number] 02:21PMCurtis Meléndez Test NameResultFlagReference Xray Lumbar Spine AP + Lateral(Report) FINAL REPORT Interpreted by: CURTIS EMLÉNDEZ JON, MD 11/19/22 16:41 Patient Name: LANCERolyERIK SANTOYO STUDY: SPINE, LUMBOSACRAL; 2 OR 3 VIEWS; ; 11/19/2022 2:21 pm INDICATION: pain M54.9: Back pain. ACCESSION NUMBER(S): [id number] ORDERING CLINICIAN: CURTIS MELÉNDEZ FINDINGS: AP lateral x-rays of the lumbar spine show an L3-4 lateral lumbar fusion with lateral plate and cage configuration. Cage pl (more content not included)... Normal [facility] 11-19-2022 XR Lumbar spine AP and Lateral [facility]: SPINE, LUMBOSACRAL 2 OR 3 EWSon 11-19-2022 SPINE, LUMBOSACRAL 2 OR 3 VIEWS Patient Name: ERIK MORALES STUDY: SPINE, LUMBOSACRAL; 2 OR 3 VIEWS; ; 11/19/2022 2:21 pm INDICATION: pain M54.9: Back pain. ACCESSION NUMBER(S): [id number] ORDERING CLINICIAN: CURTIS MELÉNDEZ FINDINGS: AP lateral [...] Electronically signed by: CURTIS MELÉNDEZ MD Normal [facility] BASIC METABOLIC PANELon 10-25 Anion gap [Moles/Vol] 10 mmol/L Normal 10 - 20 [facility] Comment on above: Performed By: #### B MP #### [address] [id number] Calcium [Mass/Vol] 8.9 mg/dL Normal 8.6 - 10.3 [facility] Comment on above: Performed By: #### B MP #### [address] [id number] Chloride [Moles/Vol] 101 mmol/L Normal 98 - 107 [facility] Comment on above: Performed By: #### B MP #### [address] [id number] Creatinine [Mass/Vol] 1.15 mg/dL Normal 0.50 - 1.30 [facility] Comment on above: Performed By: #### B MP #### [address] [id number] GFR/1.73 sq M.predicted among non-blacks MDRD (S/P/Bld) [Vol rate/Area] 70 mL/min/{1.73_m2} Normal >90 [facility] Comment on above: Result Comment: CALC ULATIONS OF ESTIMATED GFR ARE PERFORMED USING THE 2020 CKD-EPI STUDY REFIT EQUATION WITHOUT THE RACE VARIABLE FOR THE IDMS-TRACEABLE CREATININE METHODS. https://jasn.asnjournals.org/content/early/ASN.7333794 988 Performed By: #### B MP #### [address] [id number] Glucose [Mass/Vol] 106 mg/dL High 74 - 99 [facility] Comment on above: Performed By: #### B MP #### [address] [id number] HCO3 (Bld) [Moles/Vol] 29 mmol/L Normal 21 - 32 [facility] Comment on above: Performed By: #### B MP #### [address] [id number] Potassium [Moles/Vol] 4.5 mmol/L Normal 3.5 - 5.3 [facility] Comment on above: Performed By: #### B MP #### [address] [id number] Sodium [Moles/Vol] 135 mmol/L Low 136 - 145 [facility] Comment on above: Performed By: #### B MP #### [address] [id number] Urea nitrogen [Mass/Vol] 13 mg/dL Normal 6 - 23 [facility] Comment on above: Performed By: #### B MP #### [address] [id number] Daily Progress Note-General Internal Medicineon 11-07-2022 Daily [...] intact. Objective Data: Objective Information: T PRBPMAPSpO2 [id number]% Date/Time11/07 8: 8: 8: 8: 21:0811/07 8:56 [...] laboratory results: Basic Metabolic Panel Trending View [id number] 10:23:00 06-Nov-2022 05:48:00 Glucose, Tcvfm085 H 95 NA135 L 138 K4.5 4.1 [...] discussed extensively with patient, RN and Ortho JIG WORKER. Patient verbalized understanding through teach back method. All questions and concerns addressed upon examination. Of note, this documentation is completed using the [employer] system (voice recognition software). There may be spelling and/or grammatical errors that were not corrected prior to final submission. Plan of Care Reviewed With: Plan of Care Reviewed With: patient Electronic Signatures: Heidy Escobar (LABORER HEADING-GREEK PROFESSOR) (Signed 07-Nov-2022 14:59) Authored: Service, Subjective Data, Objective Data, Assessment and Plan, Note Completion Last Updated: 07-Nov-2022 14:59 by Heidy Escobar (LABORER HEADING-GREEK PROFESSOR) Normal [facility] Daily Progress Note-Orthopae dicson 11-07-2022 Daily Progress Note-Orthopaedics Service: Orthopaedics Subjective Data: ERIK MORALES is a 67 year old Male who is Hospital Day # 4 and POD #3 for 1. ;2. ;3. ;4. ;5. Patient seen and examined this morning. No acute events overnight. Objective Data: Objective Information: T PRBPMAPSpO2 Value36.49001980/5330593% Date/Time11/06 21: 21: 21: 21: 21: 21:08 [...] to home today Electronic Signatures: Gilda Mcmahon (LABORER HEADING-GREEK PROFESSOR) (Signed 07-Nov-2022 08:00) Authored: Service, Subjective Data, Objective Data, Assessment and Plan, Note Completion Abner Maldonado) (Signed 07-Nov-2022 11:31) Co-Signer: Service, Subjective Data, Objective Data, Assessment and Plan, Note Completion Last Updated: 07-Nov-2022 11:31 by Abner Maldonado) [facility] - Chemistry and C hemistry - challengeon 11-07-2022 Anion gap [Moles/Vol] 10 mmol/L 10 - 20 [facility] [place] Work Phone: Calcium [Mass/Vol] 8.9 mg/dL 8.6 - 10.[address] [place] Work Phone: Chloride [Moles/Vol] 101 mmol/L 98 - 107 [facility] [place] Work Phone: CO2 [Moles/Vol] 29 mmol/L 21 - 32 -[facility] [place] Work Phone: Creatinine [Mass/Vol] 1.15 mg/dL See Below -[facility] [place] Work Phone: Comment on above: Reference Range: 0.5 0 - 1.30 Glucose [Mass/Vol] 106 mg/dL above high threshold 74 - 99 -[facility] [place] Work Phone: Potassium [Moles/Vol] 4.5 mmol/L 3.5 - 5.3 -[facility] [place] Work Phone: Sodium [Moles/Vol] 135 mmol/L below low threshold 136 - 145 -[facility] [place] Work Phone: Urea nitrogen [Mass/Vol] 13 mg/dL 6 - 23 -[facility] [place] Work Phone: No Panel Informationon 11-07 70 {mL/min/1.73m2} >90 -[facility] Work Phone: Comment on above: CALCULATIONS OF MEGAN MATED GFR ARE PERFORMED USING THE 2020 CKD-EPI STUDY REFIT EQUATION WITHOUT THE RACE VARIABLE FOR THE IDMS-TRACEABLE CREATININE METHODS.https://jasn.asnjournals.org/content//ASN .8121867691 Order Reconciliationon 11-07 Order Reconciliation Page 1 Discharge Reconciliation Document Reconciliation Type: Discharge requested on behalf of Gilda Mcmahon (Advanced Practice Nurse-Admit) done by Gilda Mcmahon (LABORER HEADING-GREEK PROFESSOR) Discharge - Reconciliation: 07-Nov-2022 09:21 by: Gilda Mcmahon (LABORER HEADING-GREEK PROFESSOR) Home Medications EnteredHOME MEDICATIONS AT DISCHARGE DateReconciliation [...] oral tablet is not required Potassium Chloride (Swq-Ctmh-Znh 10) 10 mEq oral tablet, extended release 1 tab(s) orally once a day 21-Oct-2022 13:59 Potassium Chloride (Inf-Cajf-Cdz 10) 10 mEq oral tablet, extended release 1 tab(s) orally once a day 21-Oct-2022 13:59 Potassium Chloride (Yki-Fvar-Xph 10) 10 mEq oral tablet, extended release is continued as Potassium Chloride (Elj-Udbo-Emj 10) 10 mEq oral tablet, extended release [...] Lactated Ringers (more content not included)... Normal [facility] Rehab Note-respiratory therapy aide apyon 11-07-2022 Rehab Note-occupational therapy Rehab: Info: Mode of Treatmentoccupational therapy Time IN07:31 Time OUT08:00 Total Treatment Mrnctxq44 Patient in ... at end of sessionchair; [...] Mobility/Tone: Bed Mobility Assessment/Interventionssu pine to sit Jizkbt-kf-Xbi [place] (Bed Mobility)standby assist; verbal cues; nonverbal cues (demo/gesture) Comment, Bed MobilityEducated pt on log roll technique to maintain spinal precautions. Simulated home s/u and transferred towards right side. Transfer Assessment/Interventionssi t to stand transfer; stand to sit transfer; bed to chair transfer; toilet transfer; shower transfer Comment, TransfersMin verbal cues for hand placement with sit <>stand transfers. Bed-Chair [place] (Transfers)standby assist Bed-Chair Assistive Device (Transfers)walker, front-wheeled Sit-Stand [place] (Transfers)standby assist; Multiple sit <>stand transfers performed from various surfaces and surface heights. Pt benefits from elevated surfaces however is able to complete transfers from standard surface heights. Sit-Stand Assistive Device (Transfers)walker, front-wheeled Stand-Sit [place] (Transfers)standby assist Stand-Sit Assistive Device (Transfers)walker, front-wheeled Shower [place] (Transfers)Pt reports having shower chair at home which he has used prior to admission. Verbal education provided on safe transfer techniques. Pt also educated to have someone present with transfer for fall prevention. Toilet [place] (Transfers)standby assist Toilet Assistive Device (Transfer)grab bars/safety [...] Assessment/Interventionlow er body dressing; toileting; grooming; bathing [place] Level (Bathing)Pt educated on using a junior mechanical engineer to complete LB bathing vs purchasing a LH sponge. Verbal and visual education provided on technique from seated position on shower chair. Pt verbalized understanding. [place] Level (Lower Body Dressing)don; pants/bottoms; shoes/slippers Assistive Devices (Lower Body Dressing)junior mechanical engineer Comment (Lower Body Dressing)Reviewed education on use of junior mechanical engineer. Wilfredo pants while seated EOB with fair (+) balance. Pt donned LB clothing with SBA. Educated pt on how to use junior mechanical engineer to wilfredo slip on shoes. Pt reports brother can also assist with donning shoes. Pt educated to not walk in tedhose only, always wear shoes or non-slip socks [place] Level (Grooming)standby assist Position (Grooming)standing [place] Level (Toileting)standby assist Position (Toileting)sitting Skilled BADL Treatment/Interventionadap tive equipment training; BADL process/adaptation training; compensatory training; energy conservation Motor: Cyc-bf-Dnikq (Balance)F+ Standing, Static (Balance)F+ Standing, Dynamic (Balance)F+ [...] Score20 Short Term Goals: Functional Transfer: Established Oozq29-Gwi-0428 Functional Transfer: Goal Detailspt will transfer to bed ,chair, toilet with modified indep Functional Transfer: Time Frame for Go (more content not included)... Normal [facility] Rehab Note-physical therapyo n 11-07-2022 Rehab Note-physical therapy Rehab: Info: Disciplinephysical therapist Mode of Treatmentphysical therapy Time IN08:16 Time OUT08:48 Total Treatment Qyrdxdo07 Patient in ... at end of sessionchair; [...] brace in place. PT placed hands over planner intern on walker to cue pt of his [...] Score18 Short Term Goals: Bed Mobility: Date Srbzxmxuasx87-Ddk-2819 Bed Mobility: [place] Level Goalmodified independent; supine <> sidelying <> sitting Transfer: Established Slff14-Lpr-7946 Transfer: Transfer Type Ejfryhh-ao-jeyou/chair-to- bed; esv-lj-uhzxk/szevx-un-lfx Transfer: [place] Level Goalmodified independent Transfer: Assistive Device Goalrolling walker Gait: Established Vzon57-Spr-0111 Gait: [place] Level Goalmodified independent Gait: Assistive Device Goalrolling walker Gait: Distance Ialp946' Education: Learnerpatient Barriers to Learningno barrier Methodverbal [...] home Outcome Summary: Predicted Duration of Therapy Yaepgpfetxpv99 days Progress: Physical Therapyprogress toward functional goals as expected Therapy Frequency (PT Eval)2 times/day Predicted Duration of Therapy Sbsmfciugvxa95 days DC Recommendations: Discharge Recommendation (PT Eval)Pt would benefit from [facility] Electronic Signatures: Daniela Scott (PT) (Signed 07-Nov-2022 15:34) Co-Signer: Info, Mobility/Tone, Outcomes Tools, Short Term Goals, Education, Outcome Summary, DC Recommendations Fior Velez (SPT) (Signed 07-Nov-2022 13:43) Authored: Info, Mobility/Tone, Outcomes Tools, Short Term Goals, Education, Outcome Summary, DC Recommendations Last Updated: 07-Nov-2022 15:34 by Daniela Sctot (PT) Normal [facility] BASIC METABOLIC PANELon 09-1 Anion gap [Moles/Vol] 9 mmol/L Low 10 - 20 [facility] Comment on above: Performed By: #### B MP #### [address] [id number] Calcium [Mass/Vol] 8.6 mg/dL Normal 8.6 - 10.3 [facility] Comment on above: Performed By: #### B MP #### [address] [id number] Chloride [Moles/Vol] 105 mmol/L Normal 98 - 107 [facility] Comment on above: Performed By: #### B MP #### [address] [id number] Creatinine [Mass/Vol] 1.37 mg/dL High 0.50 - 1.30 [facility] Comment on above: Performed By: #### B MP #### [address] [id number] GFR/1.73 sq M.predicted among non-blacks MDRD (S/P/Bld) [Vol rate/Area] 57 mL/min/{1.73_m2} Abnormal >90 [facility] Comment on above: Result Comment: CALC ULATIONS OF ESTIMATED GFR ARE PERFORMED USING THE 2020 CKD-EPI STUDY REFIT EQUATION WITHOUT THE RACE VARIABLE FOR THE IDMS-TRACEABLE CREATININE METHODS. https://jasn.asnjournals.org/content/early//ASN.2454425 988 Performed By: #### B MP #### [address] [id number] Glucose [Mass/Vol] 95 mg/dL Normal 74 - 99 [facility] Comment on above: Performed By: #### B MP #### [address] [id number] HCO3 (Bld) [Moles/Vol] 28 mmol/L Normal 21 - 32 [facility] Comment on above: Performed By: #### B MP #### [address] [id number] Potassium [Moles/Vol] 4.1 mmol/L Normal 3.5 - 5.3 [facility] Comment on above: Performed By: #### B MP #### [address] [id number] Sodium [Moles/Vol] 138 mmol/L Normal 136 - 145 [facility] Comment on above: Performed By: #### B MP #### [address] [id number] Urea nitrogen [Mass/Vol] 14 mg/dL Normal 6 - 23 [facility] Comment on above: Performed By: #### B MP #### [address] [id number] Daily Progress Note-General Internal Medicineon 11-06-2022 Daily [...] intact. Objective Data: Objective Information: T PRBPMAPSpO2 Value37.98847411/084754% Date/Time11/06 8: 8: 8: 8: 8: 8:18 Range(36.2C - 37.4C ) (63 - 79 ) (16 - 18 ) (104 - 132 )/ (58 - 77 ) (76 - 97 ) (94% - 96% ) Highest temp of 37.4 C was recorded at 11/05 19:08 Pain reported at 11/06 7:23: sleeping ---- Intake and Output ----- Mn/Dy/Year TimeIntakeOutputNet Nov 06, 2022 6:00 [id number] Nov 05, 2022 10:00 [id number] Nov 05, 2022 2:00 [id number] The Intake and Output Totals for the last 24 hours are: IntakeOutputNet [id number] Physical Exam Narrative: Physical Exam: Constitutional: awake/alert/oriented [...] discussed extensively with patient, RN and Ortho JIG WORKER. Patient verbalized understanding through teach back method. All questions and concerns addressed upon examination. Of note, this documentation is completed using the [employer] Dictation system (voice recognition software). There may be spelling and/or grammatical errors that were not corrected prior to final submission. Plan of Care Reviewed With: Plan of Care Reviewed With: patient Elec (more content not included)... Normal [facility] Daily Progress Note-Orthopae ibrahimason 11-06-2022 Daily Progress Note-Orthopaedics Service: Orthopaedics Subjective Data: ERIK MORALES is a 67 year old Male who is Hospital Day # 3 and POD #2 for 1. ;2. ;3. ;4. ;5. Overnight Events: Patient had an uneventful night. Objective Data: Objective Information: T PRBPMAPSpO2 Value37.97581821/602284% Date/Time11/06 8: 8: 8: 8: 8: 8:18 Range(36.2C - 37.4C ) (63 - 79 ) (16 - 18 ) (104 - 132 )/ (58 - 77 ) (76 - 97 ) (94% - 96% ) Highest temp of 37.4 C was recorded at 11/05 19:08 Pain reported at 11/06 7:23: sleeping ---- Intake and Output ----- Mn/Dy/Year TimeIntakeOutputNet Nov 06, 2022 6:00 [id number] Nov 05, 2022 10:00 [id number] Nov 05, 2022 2:00 [id number] The Intake and Output Totals for the last 24 hours are: IntakeOutputNet [id number] T PRBPMAPSpO2 Value37.17160349/685950% Date/Time11/06 8: 8: 8: 8: 8: 8:18 [...] bed -home today Electronic Signatures: Derrick Cunningham (LABORER HEADING-GREEK PROFESSOR) (Signed 06-Nov-2022 09:07) Authored: Service, Subjective Data, Objective Data, Assessment and Plan, Note Completion Last Updated: 06-Nov-2022 09:07 by Derrick Cunningham (LABORER HEADING-GREEK PROFESSOR) Normal [facility] Discharge [id number] 023 Discharge Profile2 Discharge Orders: Anticipated Discharge Date: Anticipated Discharge Sxpq73-Osy-7120 Anticipated Discharge Time12:00 Problem List: Admitting Dx: [...] Review of Medication Reconciliation and Orders Completedby LABORER HEADING Reviewing ProviderFAINA Dwyer at 07-Nov-2022 09:17:40 Appointments: Follow-Up Appointment 01: Physician/Dept/ServiceDr. Meléndez Reason for Referralback Call to Schedule in2 weeks, please call ahead and schedule appointment [id number] [facility] Phone [phone] Electronic Signatures: Gilda Mcmahon (JESSICA-GREEK PROFESSOR) (Signed 07-Nov-2022 09:17) Authored: Discharge Orders, Home Care Orders, Provider FINAL REVIEW of Orders, Appointments, Gold Form - Sodium Chlorite Operator Summary Last Updated: 07-Nov-2022 09:17 by Gilda Mcmahon (LABORER HEADING-GREEK PROFESSOR) Normal [facility] Laboratory - Chemistry and C hemistry - challengeon 11-06-2022 Anion gap [Moles/Vol] 9 mmol/L below low threshold 10 - 20 [facility] [place] Work Phone: Calcium [Mass/Vol] 8.6 mg/dL 8.6 - 10.[address] [facility] [place] Work [facility]: Chloride [Moles/Vol] 105 mmol/L 98 - 107 [facility] [place] Work [facility]: CO2 [Moles/Vol] 28 mmol/L 21 - 32 [facility] Work [facility]: Creatinine [Mass/Vol] 1.37 mg/dL above high threshold See Below [facility] [facility] [place] Work Phone: Comment on above: Reference Range: 0.5 0 - 1.30 Glucose [Mass/Vol] 95 mg/dL 74 - [address] [facility] [place] Work Phone: Potassium [Moles/Vol] 4.1 mmol/L 3.5 - 5.3 [facility] [place] Work Phone: Sodium [Moles/Vol] 138 mmol/L 136 - [address] [facility] [place] Work Phone: Urea nitrogen [Mass/Vol] 14 mg/dL 6 - 23 -[place] [facility] [place] Work Phone: MAGNESIUMon 11-06-2022 Magnesium [Mass/Vol] 2.06 mg/dL Normal 1.60 - 2.40 [facility] Comment on above: Performed By: #### M G #### [address] [id number] Magnesium, Serumon Magnesium [Mass/Vol] 2.06 mg/dL See Below [facility] Work Phone: Comment on above: Reference Range: 1.6 0 - 2.40 No Panel Informationon 11-06 57 {mL/min/1.73m2} Abnormal >[address] Work Phone: Comment on above: CALCULATIONS OF MEGAN MATED GFR ARE PERFORMED USING THE 2020 CKD-EPI STUDY REFIT EQUATION WITHOUT THE RACE VARIABLE FOR THE IDMS-TRACEABLE CREATININE METHODS.https://jasn.asnjournals.org/content//ASN .0167600374 Rehab Note-respiratory therapy aide rohit 11-06-2022 Rehab Note-occupational therapy Rehab: Info: Mode of Treatmentoccupational therapy Time IN10:20 Time OUT10:58 Total Treatment Nvwuegz82 Patient in ... at end of sessionchair; [...] sitting on sofas and armless chairs. Sit-Stand Cypress (Transfers)contact guard Sit-Stand Assistive Device (Transfers)walker, front-wheeled Stand-Sit [place] (Transfers)contact guard Stand-Sit Assistive Device (Transfers)walker, front-wheeled Toilet Cypress (Transfers)contact guard Toilet Assistive Device (Transfer)grab bars/safety [...] alignment. UB bathing and dressing with SBA Cypress Level (Lower Body Dressing)don; pants/bottoms; shoes/slippers; minimum assist (75% patient effort) Assistive Devices (Lower Body Dressing)junior mechanical engineer Comment (Lower Body Dressing)Pt educated on use of junior mechanical engineer and sock aid for LB dressing with fair understanding and return demonstration. Cypress Level (Grooming)contact guard Comment (Grooming)Pt performed G/H tasks in stance at sink with fair balance x 2 1/2 min Motor: Frs-pd-Prukt (Balance)fair balance Standing, Static (Balance)fair balance Standing, [...] Score18 Short Term Goals: Functional Transfer: Established Uief35-Yhq-4300 Functional Transfer: Goal Detailspt will transfer to bed ,chair, toilet with modified indep Functional Transfer: Time Frame for Goal2 wks Balance: Established Balance: Goal DetailsPt will demo fair + dyn std balance with ADLS Balance: Time Frame for Goal2 wks Upper Body Dressing: Established Upper Body Dressing: Cypress Level Goalstand-by assist Upper Body Dressing: Time Frame for Goal2 wks Lower Body Dressing: Established Lower Body Dressing: Cypress Level Goalminimum assist (75% patients effort) Lower Body Dressing: Time Frame for Goal2 wks Following Precautions: Established Fldr06-Tiy-1795 Following Precautions: Goal Detailspt will verbalize and [...] to d (more content not included)... Normal [facility] Rehab Note-physical therapyo n 11-06-2022 Rehab Note-physical therapy Rehab: Info: Disciplinephysical therapist Mode of Treatmentphysical therapy Time IN13:41 Time OUT14:07 Total Treatment Bwfnubf62 Patient in ... at end of sessionbed, [...] Score18 Short Term Goals: Bed Mobility: Date Fqmjmzkjmxk08-Xke-4423 Bed Mobility: Cypress Level Goalmodified independent; supine <> sidelying <> sitting Transfer: Established Snti32-Ncx-1024 Transfer: Transfer Type Porqjbt-qv-iqoai/chair-to- bed; sue-qp-prrla/vowxy-av-qmf Transfer: [place] Level Goalmodified independent Transfer: Assistive Device Goalrolling walker Gait: Established Vkvf40-Ops-9364 Gait: Cypress Level Goalmodified independent Gait: Assistive Device Goalrolling walker Gait: Distance Ehxf027' Education: Learnerpatient Barriers to Learningno barrier Methodverbal [...] home Outcome Summary: Predicted Duration of Therapy Wgdijhbgupaz16 days Progress: Physical Therapyprogress toward functional goals as expected Therapy Frequency (PT Eval)2 times/day Predicted Duration of Therapy Jfgkzuhovotk42 days DC Recommendations: Discharge Recommendation (PT Eval)Pt would benefit from [facility] Electronic Signatures: Daniela Scott (PT) (Signed 07-Nov-2022 03:43) Co-Signer: Info, Mobility/Tone, Motor, Sensory, Outcomes Tools, Short Term Goals, Education, Outcome Summary, DC Recommendations Fior Velez (SPT) (Signed 06-Nov-2022 14:31) Authored: Info, Mobility/Tone, Motor, Sensory, Outcomes Tools, Short Term Goals, Education, Outcome Summary, DC Recommendations Last Updated: 07-Nov-2022 03:43 by Daniela Scott (PT) [facility] Rehab Note-physical therapy Rehab: Info: Mode of Treatmentphysical therapy Time IN09:36 Time OUT10:17 Total Treatment Iccghfj21 Patient in ... at end of sessionchair; [...] Score18 Short Term Goals: Bed Mobility: Date Ylqoxoqnmuv52-Skd-1003 Bed Mobility: Cypress Level Goalmodified independent; supine <> sidelying <> sitting Transfer: Established Eolm65-Gta-3956 Transfer: Transfer Type Gypbyeq-vm-lapae/chair-to- bed; hyb-ws-bfmko/yuopd-mx-rvu Transfer: [place] Level Goalmodified independent Transfer: Assistive Device Goalrolling walker Gait: Established Owma13-Raw-1183 Gait: Cypress Level Goalmodified independent Gait: Assistive Device Goalrolling walker Gait: Distance Ovsl336' Education: Learnerpatient Methodverbal Topicrehab plan of care; precautions; discharge recommendations including destination and/or equipment; fall prevention Education - Topicproper use of FWW for transfers and gait to reduce the risk of fall, reviewed spinal precautions and body mechanics for getting in and out of bed, concerns for discharging home Outcome Summary: Predicted Duration of Therapy Gegjeicnzjyf87 days Progress: Physical Therapyprogress towards functional goals is fair Therapy Frequency (PT Eval)2 times/day Predicted Duration of Therapy Bgslwxamgvpk23 days DC Recommendations: Discharge Recommendation (PT Eval)Pt would benefit from [facility] Electronic Signatures: Daniela Scott (PT) (Signed 07-Nov-2022 03:43) Co-Signer: Info, Mobility/Tone, Outcomes Tools, Short Term Goals, Education, Outcome Summary, DC Recommendations Fior Velez (SPT) (Signed 06-Nov-2022 14:30) Authored: Info, Mobility/Tone, Outcomes Tools, Short Term Goals, Education, Outcome Summary, DC Recommendations Last Updated: 07-Nov-2022 03:43 by Daniela Scott (PT) Normal [facility] BASIC METABOLIC PANELon 09- Anion gap [Moles/Vol] 12 mmol/L Normal 10 - 20 [facility] Comment on above: Performed By: #### B MP #### [address] [id number] Calcium [Mass/Vol] 8.8 mg/dL Normal 8.6 - 10.3 [facility] Comment on above: Performed By: #### B MP #### [address] [id number] Chloride [Moles/Vol] 101 mmol/L Normal 98 - 107 [facility] Comment on above: Performed By: #### B MP #### [address] [id number] Creatinine [Mass/Vol] 1.75 mg/dL High 0.50 - 1.30 [facility] Comment on above: Performed By: #### B MP #### [address] [id number] GFR/1.73 sq M.predicted among non-blacks MDRD (S/P/Bld) [Vol rate/Area] 42 mL/min/{1.73_m2} Abnormal >90 [facility] Comment on above: Result Comment: CALC ULATIONS OF ESTIMATED GFR ARE PERFORMED USING THE 2020 CKD-EPI STUDY REFIT EQUATION WITHOUT THE RACE VARIABLE FOR THE IDMS-TRACEABLE CREATININE METHODS. https://jasn.asnjournals.org/content//ASN.8805544 988 Performed By: #### B MP #### [address] [id number] Glucose [Mass/Vol] 131 mg/dL High 74 - 99 [facility] Comment on above: Performed By: #### B MP #### [address] [id number] HCO3 (Bld) [Moles/Vol] 26 mmol/L Normal 21 - 32 [facility] Comment on above: Performed By: #### B MP #### [address] [id number] Potassium [Moles/Vol] 4.0 mmol/L Normal 3.5 - 5.3 [facility] Comment on above: Performed By: #### B MP #### [address] [id number] Sodium [Moles/Vol] 135 mmol/L Low 136 - 145 [facility] Comment on above: Performed By: #### B MP #### [address] [id number] Urea nitrogen [Mass/Vol] 14 mg/dL Normal 6 - 23 [facility] Comment on above: Performed By: #### B MP #### [address] [id number] CBCon 11-05-2022 Erythrocyte distribution width (RBC) [Ratio] 13.4 % Normal 11.5 - 14.5 [facility] Comment on above: Performed By: #### C BC #### [address] [id number] Hematocrit (Bld) [Volume fraction] 43.6 % Normal 41.0 - 52.0 [facility] Comment on above: Performed By: #### C BC #### [address] [id number] Hemoglobin (Bld) [Mass/Vol] 14.3 g/dL Normal 13.5 - 17.5 [facility] Comment on above: Performed By: #### C BC #### [address] [id number] MCHC (RBC) [Mass/Vol] 32.8 g/dL Normal 32.0 - 36.0 [facility] Comment on above: Performed By: #### C BC #### [address] [id number] MCV (RBC) [Entitic vol] 96 fL Normal 80 - 100 [facility] Comment on above: Performed By: #### C BC #### [address] [id number] Platelets (Bld) [#/Vol] 244 10*3/uL Normal 150 - 450 [facility] Comment on above: Performed By: #### C BC #### [address] [id number] RBC 4.54 x10E12/L Normal 4.50 - 5.90 [facility] Comment on above: Performed By: #### C BC #### [address] [id number] WBC (Bld) [#/Vol] 16.4 10*3/uL High 4.4 - 11.3 [facility] Comment on above: Performed By: #### C BC #### [address] [place] [id number] Daily Progress Note-General Internal Medicineon 11-05-2022 Daily [...] intact. Objective Data: Objective Information: T PRBPMAPSpO2 Value36.20252245/127271% Date/Time11/05 7: 0: 0: 7: 7: 7:33 [...] ----- Mn/Dy/Year TimeIntakeOutputNet Nov 05, 2022 6:00 [id number] Nov 04, 2022 10:00 [id number] Nov 04, 2022 2:00 [id number] The Intake and Output Totals for the last 24 hours are: IntakeOutputNet [id number] Physical Exam Narrative: Physical Exam: Constitutional: awake/alert/oriented [...] interview, assessm (more content not included)... Normal [facility] Daily Progress Note-Orthopae ibrahimason 11-05-2022 Daily Progress Note-Orthopaedics Service: Orthopaedics Subjective Data: ERIK MORALES is a 67 year old Male who is Hospital Day # 2 and POD #1 for 1. ;2. ;3. ;4. ;5. Overnight Events: Patient had an uneventful night. Objective Data: Objective Information: T PRBPMAPSpO2 Value36.77476331/885744% Date/Time11/05 7: 0:40912 0:40912 7:339 7:339 7:33 [...] ----- Mn/Dy/Year TimeIntakeOutputNet Nov 05, 2022 6:00 [id number] Nov 04, 2022 10:00 [id number] Nov 04, 2022 2:00 [id number] The Intake and Output Totals for the last 24 hours are: IntakeOutputNet [id number] T PRBPMAPSpO2 Value36.65919065/754863% Date/Time11/05 7: 0:409 0:40912 7: 7: 7:33 [...] out of bed Electronic Signatures: Derrick Cunningham (LABORER HEADING-GREEK PROFESSOR) (Signed 05-Nov-2022 08:16) Authored: Service, Subjective Data, Objective Data, Assessment and Plan, Note Completion Curtis Maldonado) (Signed 05-Nov-2022 09:30) Co-Signer: Service, Subjective Data, Objective Data, Assessment and Plan, Note Completion Last Updated: 05-Nov-2022 09:30 by Curtis Maldonado) [facility] - Chemistry and C hemistry - challengeon 11-05-2022 Anion gap [Moles/Vol] 12 mmol/L 10 - 20 [facility] [place] Work Phone: Calcium [Mass/Vol] 8.8 mg/dL 8.6 - 10.[address] [place] Work Phone: Chloride [Moles/Vol] 101 mmol/L 98 - 107 [facility] [place] Work Phone: CO2 [Moles/Vol] 26 mmol/L 21 - 32 [facility] [place] Work Phone: Creatinine [Mass/Vol] 1.75 mg/dL above high threshold See Below -[facility] [place] Work Phone: Comment on above: Reference Range: 0.5 0 - 1.30 Glucose [Mass/Vol] 131 mg/dL above high threshold 74 - 99 -[facility] [place] Work Phone: Potassium [Moles/Vol] 4.0 mmol/L 3.5 - 5.3 [facility] [place] Work Phone: Sodium [Moles/Vol] 135 mmol/L below low threshold 136 - 145 -[facility] [place] Work Phone: Urea nitrogen [Mass/Vol] 14 mg/dL 6 - 23 -[facility] [place] Work Phone: Laboratory - Hematology and Cell countson 11-05-2022 Erythrocyte distribution width (RBC) [Ratio] 13.4 % See Below [facility] [place] Work Phone: [phone] Comment on above: Reference Range: 11. 5 - 14.5 Hematocrit (Bld) [Volume fraction] 43.6 % See Below [facility] [place] Work Phone: [phone] Comment on above: Reference Range: 41. 0 - 52.0 Hemoglobin (Bld) [Mass/Vol] 14.3 g/dL See Below [facility] [place] Work Phone: Comment on above: Reference Range: 13. 5 - 17.5 MCHC (RBC) [Mass/Vol] 32.8 g/dL See Below [facility] [place] Work Phone: Comment on above: Reference Range: 32. 0 - 36.0 MCV (RBC) [Entitic vol] 96 fL 80 - 100 [facility] [place] Work Phone: [phone] Platelets (Bld) [#/Vol] 244 10*3/uL 150 - 450 [facility] For [facility] [place] Work Phone: RBC (Bld) [#/Vol] 4.54 {x10E12/L} See Below [facility] Work Phone: Comment on above: Reference Range: 4.5 0 - 5.90 WBC (Bld) [#/Vol] 16.4 10*3/uL above high threshold 4.4 - 11.3 [facility] For [facility] [place] Work Phone: No Panel Informationon 11-05 42 {mL/min/1.73m2} Abnormal >90 [facility] [place] Work Phone: [phone] Comment on above: CALCULATIONS OF MEGAN MATED GFR ARE PERFORMED USING THE 2020 CKD-EPI STUDY REFIT EQUATION WITHOUT THE RACE VARIABLE FOR THE IDMS-TRACEABLE CREATININE METHODS.https://jasn.asnjournals.org/content/early//ASN .7093354470 OT Evaluation v2-occupationa l therapyon 11-05-2022 OT Evaluation v2-occupational therapy Rehab: Info: Mode of Treatmentoccupational therapy Time IN07:41 Time OUT08:05 Total Treatment Minutes0 Patient Effortgood Symptoms Noted During/After Treatmentnone Patient Profile Reviewedyes Onset of Illness/Injury or Date of Qbeajvy07-Tqy-5224 Reason for ReferralL2-3, L3-4 lami, L3-4 lateral [...] Static (Balance)good balance Sitting, Dynamic (Balance)good balance Iwm-sy-Sfqwx (Balance)good balance Standing, Static (Balance)fair balance Standing, Dynamic (Balance)fair balance Sensory: Pre-Treatment Pain Rating3/10 Post-Treatment Pain Rating3/10 Comment, Pre/Post Treatment Painlow back pain Sensory General Assessmentno sensation deficits identified Impression: Criteria for Skilled Therapeutic Interventions Met (OT Eval)treatment indicated OT DiagnosisADL impairment Rehab Potential (OT Eval)good, to achieve stated therapy goals Therapy Frequency (OT Eval)2 times/wk Predicted Duration of Therapy Ftsmyoejchuc94 days Functional Limitations in Following Categoriesself-care Planned [...] Score16 Short Term Goals: Functional Transfer: Established Rgti51-Cfw-8421 Functional Transfer: Goal Detailspt will transfer to bed ,chair, toilet with modified indep Functional Transfer: Time Frame for Goal2 wks Balance: Established Nadz88-Sbc-2501 Balance: Goal DetailsPt will demo fair + dyn std balance with ADLS Balance: Time Frame for Goal2 wks Upper Body Dressing: Established Upper Body Dressing: Cypress Level Goalstand-by assist Upper Body Dressing: Time Frame for Goal2 wks Lower Body Dressing: Established Lower Body Dressing: Cypress Level Goalminimum assist (75% patients effort) Lower Body Dressing: Time Frame for Goal2 wks Following Precautions: Established Frgp43-Lgc-8692 Following Precautions: Goal Detailspt will verbalize and [...] 05-Nov-2022 09:56 by Marianna Hayes (OT) Katerina [facility] PT Evaluation v2-physical th erajoseon 11-05-2022 PT Evaluation v2-physical therapy Rehab: Info: Mode of Treatmentphysical therapy Time IN07:45 Time OUT08:05 Patient in ... at end of sessionchair; alarm on Patient Effortgood Patient Profile Reviewedyes Onset of Illness/Injury or Date of Csiphax58-Iqf-8100 Reason for ReferralSurgery 11.04.2022 L3-4 lateral interbody [...] Static (Balance)good balance Sitting, Dynamic (Balance)fair balance Pgg-bz-Tcidg (Balance)fair + Standing, Static (Balance)fair + Standing, [...] (PT Eval)2 times/day Predicted Duration of Therapy Rffttsdbgdtv58 days Outcomes Tools: Turning from your back [...] in hosp (more content not included)... Normal [facility] Rehab Note-physical therapyo n 11-05-2022 Rehab Note-physical therapy Rehab: Info: Disciplinephysical respiratory therapy aide Mode of Treatmentphysical therapy Time IN14:19 Time OUT14:44 Total Treatment Gflxnit52 Patient in ... at end of sessionbed, [...] Score18 Short Term Goals: Bed Mobility: Date Litxuqcgoep96-Kur-0031 Bed Mobility: Cypress Level Goalmodified independent; supine <> sidelying <> sitting Transfer: Established Krgw02-Bpl-9282 Transfer: Transfer Type Ftgkndo-fy-iprkc/chair-to- bed; hwv-js-sprwm/ipfga-dg-uhs Transfer: [place]ress Level Goalmodified independent Transfer: Assistive Device Goalrolling walker Gait: Established Jlla23-Qkb-8433 Gait: [place]ress Level Goalmodified independent Gait: Assistive Device Goalrolling walker Gait: Distance Rywq053' Education: Learnerpatient; family member Methodverbal Outcome Evaluation1=partially meets; needs review Education - Topicpt able to recall spinal precautions , Able to don and doff TLSO brace Outcome Summary: Progress: Physical Therapyprogress toward functional goals as expected Electronic Signatures: Kelsea Cueto (DIE CAST SUPERVISOR) (Signed 05-Nov-2022 16:34) Authored: Info, Mobility/Tone, Sensory, Outcomes Tools, Short Term Goals, Education, Outcome Summary Daniela Scott (PT) (Signed 06-Nov-2022 03:32) Co-Signer: Info, Mobility/Tone, Sensory, Outcomes Tools, Short Term Goals, Education, Outcome Summary Last Updated: 06-Nov-2022 03:32 by Daniela Scott (PT) Normal [facility] Admission Risk Screen - Adul ton 11-04-2022 Admission Risk Screen - Adult Allergies: Intolerances: nitroglycerin: Unknown Patient Verification: New W ID Band Applied in my Departmentno Type of ID Patient is WearingW wristband, but not applied here Patient Transferred from Other Facility ([facility], [facility],etc)no Patient Identity Verified Bypatient ID Band [...] AlertFor Ebola-like Symptoms: Isolate Patient and Notify Provider/Fabrication Manager For Contact: Notify Provider/Fabrication Manager Advance Directive: Advance Directive/DNRyes Advance Directive typeLiving Will, Durable Power of Clinical Science Consultant for Healthcare Living Will AvailabilityLiving Will not available now Living Will Vvpchhmql56-Llo-6837 Durable Power of Clinical Science Consultant AvailabilityDPOA not available now Durable Power of Clinical Science Consultant Hfuuzsaou65-Qyk-5954 Durable Power of Clinical Science Consultant contact (name and number)Dana [phone] [place] Fall Screen: History of falling (immediate [...] instruction; skill demonstration Cultural Considerationsnone Developmental Considerationsnone Amish Considerationsnone Learning Assessment (Other Learner): Other learner availableno Depression Screen: During the past month, have you often been bothered by feeling down, depressed or hopelessno During the past month, have you often had little interest or pleasure in doing thingsno Have you had any thoughts of harming anyone elseno [place] Suicide: Risk Screen Not Applicable/Able to Answerable to be screened In the Past Month: Have you wished you were or could go to sleep and not wake upno In the Past Month: Have you had any actual thoughts of killing yourselfno Lifetime: Have you ever done, started to do, or prepared to do anything to end your lifeno [place] Suicide Risknegative Adult Nutrition Screen: Have you [...] (frequency/quality)frequen t; (more content not included)... Normal [facility] Consult-General Internal Med sotero 11-04-2022 Consult-General [...] nitroglycerin: Unknown Objective: Objective Information: T PRBPMAPSpO2 Value36.22976171/6407669% Date/Time11/04 15: 15: 15: 15: 15: 15:32 [...] to b (more content not included)... Normal [facility] Discharge Planning Rjho4fh 0 11-04-2022 Discharge Planning Note2 Discharge Planning: Planned Dispositionhome Discharge Destinationhome [place] of Choice Explainedyes Anticipated Discharge Ylxj62-Mcm-5417 Discharge Planning 11/04/22 @ 1508 hours: Received [...] he is independent of ADLs and IADLs DIE CAST SUPERVISOR and does not use AD. Drives. Pt plans to dc home. CT team will continue to monitor care progression and potential dc needs. Darya Jay RN TCC 11/06/22 0900 TCC UPDATE: [facility] score is PT (18) OT (16), [...] Jones RN TCC. Assessment: Discharge Planning Assessment Qkkf89-Cub-6878 Primary Contact Name and NumberDale (brother) [phone] Lives Withsibling(s) Living Arrangementshouse PCPHoy [facility] Anticipated at Transitionnone InsuranceDevoted [...] 06-Nov-2022 15:26 by Sultana Jones (CLIN COOR) [facility] Order Reconciliationon 11-04 Order Reconciliation Page 1 Admission Reconciliation Document Reconciliation Type: Admission requested on behalf of Heidy Escobar (Advanced Practice Nurse) done by Heidy Escobar ([facility]) Admission - Partial Reconciliation: 04-Nov-2022 15:50 by: Heidy Escobar ([facility]) Admission - Reconciliation: 04-Nov-2022 15:50 by: Heidy Escobar ([facility]) Home MedicationsEnteredLast Dose TakenReconciled with current Order Reconciliation Comment/ Additional Information atorvastatin 40 mg oral tablet 1 tab(s) orally once a day (at bedtime) [id number]-[id number]-2046 PM Atorvastatin Tablet (LIPITOR)DOSE = 40 mg Oral At Bedtimeatorvastatin 40 mg oral tablet continued as the inpatient order Atorvastatin baclofen 10 mg oral tablet 1 tab(s) orally once a sgk66-Hdn-445979-Fcb-2680 PM Reviewed and Held Eliquis 5 mg oral tablet 1 tab(s) orally 2 times a day---AWARE TO HOLD PRIOR TO PROCEDURE Reviewed and Held furosemide 20 mg oral tablet 1 tab(s) orally once a xuq56-Qkw-976105-Cre-8670 AM Furosemide Tablet (LASIX)DOSE = 20 mg Oral Dailyfurosemide 20 mg oral tablet is continued and suspended as Furosemide lisinopril 20 mg oral tablet 1 tab(s) orally once a rax07-Mlc-948297-Qqh-8819 PM Lisinopril Tablet (PRINIVIL, ZESTRIL)DOSE = 20 mg Oral Dailylisinopril 20 mg oral tablet is continued and suspended as Lisinopril metoprolol tartrate 25 mg oral tablet 1 tab(s) orally 2 times a day---AWARE TO TAKE MORNING OF PROCEDUE WITH A SIP OF XMEXE52-Lch-967615-Bot-920 3 02:30 AM Reviewed and Held Multiple Vitamins oral tablet 1 tab(s) orally once a ysb32-Qtu-884804-Nov-2022 AM Multivitamin with Minerals TabletDOSE = 1 tablet(s) Oral Daily Multiple Vitamins oral tablet continued as the inpatient order Multivitamin with Minerals nortriptyline 25 mg oral capsule orally once a pjv35-Vfw-348337-Qzu-5855 PM Nortriptyline Capsule (PAMELOR)DOSE = 25 mg [...] tab(s) orally 2 times a day, As Tjtmuf40-Erc-824299-Hlg-89 23 Reviewed and Held Potassium Chloride (Wzc-Unuv-Ryb 10) 10 mEq oral tablet, extended release 1 tab(s) orally once a bdy42-Wlr-041543-Apu-3364 PM Reviewed and Held Additional Current Orders [...] 12 HoursRecommended Infusion Time: 60 minute(s) Normal [facility] Radiologyon 11-04-2022 Fluoroscopy duration Please click on the link to view the study images Normal [facility] [facility] Work Phone: Established Visit (Orthopaed [...] [Time] 34 s Normal 27 - 38 [facility] Comment on above: Result Comment: Note new reference range as of 08/13/2022 at 10:00am. Performed By: #### A PTT #### [address] [id number] Activated Partial Thrombopla stin Timeon 10-21-2022 aPTT Coag (PPP) [Time] 34 s 27 - 38 [facility] Work Phone: Comment on above: Note new reference r jana as of 08/13/2022 at 10:00am. CBC AND DIFFERENTIALon 10-21 % AUTOMATED IMMATURE GRAN 0.3 % Normal 0.0 - 0.9 [facility] Comment on above: Result Comment: Jovanna ture Granulocyte Count (IG) includes promyelocytes, myelocytes and metamyelocytes but does not include bands. Percent differential counts (%) should be interpreted in the context of the absolute cell counts (cells/L). Performed By: #### C BCDF #### [address] [id number] Basophils (Bld) [#/Vol] 0.11 10*3/uL High 0.00 - 0.10 [facility] Comment on above: Performed By: #### C BCDF #### [address] [id number] Basophils/100 WBC (Bld) 1.2 % Normal 0.0 - 2.0 [facility] Comment on above: Performed By: #### C BCDF #### [address] [id number] Eosinophils (Bld) [#/Vol] 0.21 10*3/uL Normal 0.00 - 0.70 [facility] Comment on above: Performed By: #### C BCDF #### [address] [id number] Eosinophils/100 WBC (Bld) 2.2 % Normal 0.0 - 6.0 [facility] Comment on above: Performed By: #### C BCDF #### [address] [id number] Erythrocyte distribution width (RBC) [Ratio] 13.5 % Normal 11.5 - 14.5 [facility] Comment on above: Performed By: #### C BCDF #### [address] [id number] Hematocrit (Bld) [Volume fraction] 44.9 % Normal 41.0 - 52.0 [facility] Comment on above: Performed By: #### C BCDF #### [address] [id number] Hemoglobin (Bld) [Mass/Vol] 14.8 g/dL Normal 13.5 - 17.5 [facility] Comment on above: Performed By: #### C BCDF #### [address] [id number] Lymphocytes (Bld) [#/Vol] 1.28 10*3/uL Normal 1.20 - 4.80 [facility] Comment on above: Performed By: #### C BCDF #### [address] [id number] Lymphocytes/100 WBC (Bld) 13.6 % Normal 13.0 - 44.0 [facility] Comment on above: Performed By: #### C BCDF #### [address] [id number] MCHC (RBC) [Mass/Vol] 33.0 g/dL Normal 32.0 - 36.0 [facility] Comment on above: Performed By: #### C BCDF #### [address] [id number] MCV (RBC) [Entitic vol] 94 fL Normal 80 - 100 [facility] Comment on above: Performed By: #### C BCDF #### [address] [id number] Monocytes (Bld) [#/Vol] 0.72 10*3/uL Normal 0.10 - 1.00 [facility] Comment on above: Performed By: #### C BCDF #### [address] [id number] Monocytes/100 WBC (Bld) 7.7 % Normal 2.0 - 10.0 [facility] Comment on above: Performed By: #### C BCDF #### [address] [id number] Neutrophils (Bld) [#/Vol] 7.04 10*3/uL Normal 1.20 - 7.70 [facility] Comment on above: Performed By: #### C BCDF #### [address] [id number] Neutrophils/100 WBC (Bld) 75.0 % Normal 40.0 - 80.0 [facility] Comment on above: Performed By: #### C BCDF #### [address] [id number] Platelets (Bld) [#/Vol] 251 10*3/uL Normal 150 - 450 [facility] Comment on above: Performed By: #### C BCDF #### [address] [id number] RBC 4.78 x10E12/L Normal 4.50 - 5.90 [facility] Comment on above: Performed By: #### C BCDF #### [address] [id number] WBC (Bld) [#/Vol] 9.4 10*3/uL Normal 4.4 - 11.3 [facility] Comment on above: Performed By: #### C BCDF #### [address] [id number] COMPREHENSIVE PANELon 2022 Albumin [Mass/Vol] 4.0 g/dL Normal 3.4 - 5.0 [facility] Comment on above: Performed By: #### C BC #### [address] [id number] ALP [Catalytic activity/Vol] 127 U/L Normal 33 - 136 [facility] Comment on above: Performed By: #### C BC #### [address] [id number] ALT [Catalytic activity/Vol] 16 U/L Normal 10 - 52 [facility] Comment on above: Result Comment: Becca ents treated with Sulfasalazine may generate falsely decreased results for ALT. Performed By: #### C BC #### [address] [id number] Anion gap [Moles/Vol] 12 mmol/L Normal 10 - 20 [facility] Comment on above: Performed By: #### C BC #### [address] [id number] AST [Catalytic activity/Vol] 21 U/L Normal 9 - 39 [facility] Comment on above: Performed By: #### C BC #### [address] [place] [id number] Bilirubin [Mass/Vol] 0.6 mg/dL Normal 0.0 - 1.2 [facility] Comment on above: Performed By: #### C BC #### [address] [id number] Calcium [Mass/Vol] 9.3 mg/dL Normal 8.6 - 10.3 [facility] Comment on above: Performed By: #### C BC #### [address] [id number] Chloride [Moles/Vol] 103 mmol/L Normal 98 - 107 [facility] Comment on above: Performed By: #### C BC #### [address] [id number] Creatinine [Mass/Vol] 1.29 mg/dL Normal 0.50 - 1.30 [facility] Comment on above: Performed By: #### C BC #### [address] [id number] GFR/1.73 sq M.predicted among non-blacks MDRD (S/P/Bld) [Vol rate/Area] 61 mL/min/{1.73_m2} Normal >90 [facility] Comment on above: Result Comment: CALC ULATIONS OF ESTIMATED GFR ARE PERFORMED USING THE 2020 CKD-EPI STUDY REFIT EQUATION WITHOUT THE RACE VARIABLE FOR THE IDMS-TRACEABLE CREATININE METHODS. https://jasn.asnjournals.org/content/early//ASN.2258416 988 Performed By: #### C BC #### [address] [id number] Glucose [Mass/Vol] 103 mg/dL High 74 - 99 [facility] Comment on above: Performed By: #### C BC #### [address] [id number] HCO3 (Bld) [Moles/Vol] 27 mmol/L Normal 21 - 32 [facility] Comment on above: Performed By: #### C BC #### [address] [id number] Potassium [Moles/Vol] 3.8 mmol/L Normal 3.5 - 5.3 [facility] Comment on above: Performed By: #### C BC #### [address] [id number] Protein [Mass/Vol] 7.4 g/dL Normal 6.4 - 8.2 [facility] Comment on above: Performed By: #### C BC #### [address] [id number] Sodium [Moles/Vol] 138 mmol/L Normal 136 - 145 [facility] Comment on above: Performed By: #### C BC #### [address] [id number] Urea nitrogen [Mass/Vol] 11 mg/dL Normal 6 - 23 [facility] Comment on above: Performed By: #### C BC #### [address] [id number] Complete Blood Count + Diffe rentialon 10-21-2022 Basophils/100 WBC (Bld) 1.2 % 0.0 - 2.0 [facility] Work Phone: Erythrocyte distribution width (RBC) [Ratio] 13.5 % See Below [facility] Work Phone: Comment on above: Reference Range: 11. 5 - 14.5 Hematocrit (Bld) [Volume fraction] 44.9 % See Below [facility] Work Phone: Comment on above: Reference Range: 41. 0 - 52.0 Hemoglobin (Bld) [Mass/Vol] 14.8 g/dL See Below [facility] Work Phone: Comment on above: Reference Range: 13. 5 - 17.5 Lymphocytes/100 WBC (Bld) 13.6 % See Below [facility] Work Phone: Comment on above: Reference Range: 13. 0 - 44.0 MCHC (RBC) [Mass/Vol] 33.0 g/dL See Below [facility] [place] Work Phone: [phone] Comment on above: Reference Range: 32. 0 - 36.0 MCV (RBC) [Entitic vol] 94 fL 80 - 100 [facility] [place] Work Phone: [phone] Monocytes/100 WBC (Bld) 7.7 % 2.0 - 10.0 [facility] [place] Work Phone: [phone] Neutrophils/100 WBC (Bld) 75.0 % See Below [facility] [place] Work Phone: [phone] Comment on above: Reference Range: 40. 0 - 80.0 Platelets (Bld) [#/Vol] 251 10*3/uL 150 - 450 [facility] [place] Work Phone: [phone] RBC (Bld) [#/Vol] 4.78 {x10E12/L} See Below [facility] [place] Work Phone: [phone] Comment on above: Reference Range: 4.5 0 - 5.90 WBC (Bld) [#/Vol] 9.4 10*3/uL 4.4 - 11.3 [facility] [place] Work Phone: [phone] Blood Count + Differential 0.11 {x10E9/L} above high threshold See Below [facility] [place] Work Phone: [phone] Comment on above: Reference Range: 0.0 0 - 0.10 Complete Blood Count + Differential 0.21 {x10E9/L} See Below [facility] [place] Work Phone: [phone] Comment on above: Reference Range: 0.0 0 - 0.70 Complete Blood Count + Differential 0.72 {x10E9/L} See Below [facility] [place] Work Phone: Comment on above: Reference Range: 0.1 0 - 1.00 Complete Blood Count + Differential 1.28 {x10E9/L} See Below [facility] Work Phone: [phone] Comment on above: Reference Range: 1.2 0 - 4.80 Complete Blood Count + Differential 7.04 {x10E9/L} See Below [facility] Work Phone: Comment on above: Reference Range: 1.2 0 - 7.70 Complete Blood Count + Differential 2.2 % 0.0 - 6.0 [facility] Work Phone: Complete Blood Count + Differential 0.3 % 0.0 - 0.9 [facility] Work Phone: Comment on above: Immature Granulocyte Count (IG) includes promyelocytes, myelocytes and metamyelocytes but does not include bands. Percent differential counts (%) should be interpreted in the context of the absolute cell counts (cells/L). Electrocardiogram 12 Leadon 10-21-2022 Electrocardiogram 12 Lead Ventricular Rate 64 Atrial Rate 64 P-R Interval 172 QRS Duration 84 Q-T Interval 398 QTC Calculation(Bazett) 410 P Bejou 22 R Bejou 17 T Bejou 32 QRS Count 11 Q Onset 225 P Onset 139 P Offset 198 T Offset 424 QTC Fredericia 406 Diagnosis Class Borderline Normal Diagnosis Normal sinus rhythm Early transition Otherwise normal ECG No previous ECGs available Confirmed by Curtis Trejo ([id number]) on 10/24/2022 9:27:12 AM Normal [facility] - Chemistry and C hemistry - challengeon 10-21-2022 Albumin BCP dye [Mass/Vol] 4.0 g/dL 3.4 - 5.0 [facility] Work Phone: [phone] ALP [Catalytic activity/Vol] 127 U/L 33 - 136 [facility] Work Phone: [phone] ALT With P-5'-P [Catalytic activity/Vol] 16 U/L 10 - 52 [facility] [place] Work Phone: Comment on above: Patients treated wit h Sulfasalazine may generate falsely decreased results for ALT. Anion gap [Moles/Vol] 12 mmol/L 10 - 20 [facility] Work Phone: [phone] AST With P-5'-P [Catalytic activity/Vol] 21 U/L 9 - 39 [facility] Work Phone: [phone] Bilirubin [Mass/Vol] 0.6 mg/dL 0.0 - 1.2 [facility] Work Phone: [phone] Calcium [Mass/Vol] 9.3 mg/dL 8.6 - 10.[address] [facility] Work Phone: [phone] Chloride [Moles/Vol] 103 mmol/L 98 - 107 [facility] Work Phone: [phone] CO2 [Moles/Vol] 27 mmol/L 21 - 32 [facility] Work Phone: [phone] Creatinine [Mass/Vol] 1.29 mg/dL See Below [facility] Work Phone: [phone] Comment on above: Reference Range: 0.5 0 - 1.30 Glucose [Mass/Vol] 103 mg/dL above high threshold 74 - 99 [facility] Work Phone: [phone] Potassium [Moles/Vol] 3.8 mmol/L 3.5 - 5.3 -[place] [facility] Work Phone: [phone] Protein [Mass/Vol] 7.4 g/dL 6.4 - 8.[address] [facility] Work Phone: [phone] Sodium [Moles/Vol] 138 mmol/L 136 - [address] [facility] Work Phone: [phone] Urea nitrogen [Mass/Vol] 11 mg/dL 6 - 23 [facility] [place] Work Phone: Laboratory - Coagulationon 0 10-21-2022 INR Coag (PPP) [Relative time] 1.4 {INR} above high threshold 0.9 - 1.1 [facility] [place] Work Phone: [phone] PT Coag (PPP) [Time] 16.2 s above high threshold 9.8 - 12.8 [facility] [place] Work Phone: [phone] Comment on above: Note new reference r jana as of 08/13/2022 at 10:00am. MRSA Screenon 10-21-2022 Staphylococcus sp identified Org specific cx Nom (Unsp spec) Abnormal -[facility] [place] Work Phone: [phone] No Panel Informationon 10-21 [email or web address] ?RetrieveTestByDateTime?Pa [email or web address]&Date=&Time=14%3a28%3a16% 3a00&TestType=ECG&Site=1&O utputType=PDF&Ext=PDF -[facility] [place] Work Phone: [phone] Normal sinus rhythm [facility] [place] Work Phone: [phone] Borderline Normal [facility] [place] Work Phone: [phone] 1 -[facility] [place] Work Phone: [phone] 1 -[facility] [place] Work Phone: [phone] [facility] [place] Work Phone: [phone] [facility] [place] Work Phone: [phone] 1 -[facility] [place] Work Phone: 1 -[facility] [place] Work Phone: [phone] -[facility] [place] Work Phone: [phone] [facility] [place] Work Phone: [phone] [facility] [place] Work Phone: [phone] [facility] [place] Work Phone: [phone] -[facility] [place] Work Phone: [phone] -[facility] [place] Work Phone: [phone] -[facility] [place] Work Phone: [phone] -[facility] [place] Work Phone: {mL/min/1.73m2} >90 -[facility] [place] Work Phone: Comment on above: CALCULATIONS OF MEGAN MATED GFR ARE PERFORMED USING THE 2020 CKD-EPI STUDY REFIT EQUATION WITHOUT THE RACE VARIABLE FOR THE IDMS-TRACEABLE CREATININE METHODS.https://jasn.asnjournals.org/content/early//ASN .5505871997 PT/INRon 10-21-2022 PT Coag (PPP) [Time] 16.2 s High 9.8 - 12.8 [facility] Comment on above: Result Comment: Note new reference range as of 08/13/2022 at 10:00am. Performed By: #### P TINR #### [address] [id number] PT, INR 1.4 High 0.9 - 1.1 [facility] Comment on above: Performed By: #### P TINR #### [address] [id number] Patient Profile - Preop v3on 10-21-2022 Patient Profile - Preop v3 Patient Profile - Preop: Initial Info: Patient DemographicsName: ERIK MORALES Date: 1955 Address: [address] [place] [address] Date/Time [id number] 13:33 Primary Phone [phone] Instructions Givenappropriate clothing, bring responsible adult as the dray driver (procedure may be cancelled if no dray driver), center location, insurance information Prep Instructions Reviewedyes Prep TypeCHG wipes Instructed to Have No Fluids AfterNPO after midnight How to be AddressedGarry Spoken Language PreferredEnglish Source of Informationpatient Stated Reason for AdmissionBack surgery Primary Contact Name and NumberJose Carlos (brother) [phone] Other Contact Names and NumbersDerick Garsia (friend) [phone] Limitations on Visitors/Phone Callsnone Medications Brought to Hospitalno General Health: Weight in kg90.4 kilogram(s) Weight in xxj476.2 pound(s) Weight Methodactual (measured) Scale Typestanding Height [...] CommentsLives with brother Resource/Environmental Concernsnone Anticipated Transition [place] [facility] Anticipated at Transitionnone Tobacco Use: Tobacco Useno former cigar smoker, quit 15 years ago Pre-op Checklist: Arrival [id number] Arrival Time09:25 Procedure TypeL2-3, L3-4 LAMINECTOMY, L3-4 INSTRUMENTATION, L2-3, L3-4 POSTERIOR LATERAL FUSION, L3-4LATERAL LUMBAR INTERBODY FUSION NPOyes Last Food [id number] 18:30 Last Clear Fluid [id number] 19:00 ID Band On Patientpatient ID (name), falls risk Consent Signedyes H&P Completeyes Anesthesia Assessment Completedpending EKG Performedsee results tab Chest X-Ray Performednot ordered Preop Antibioticssent to OR Beta-sushant Last Dose Date/[id number] 02:30 Glucose Resultn/a Type and Screen Resultedn/a [...] Updated: 04-Nov-2022 05:56 by Moira Marsh) Normal [facility] STAPH/MRSA SCREENon 10-22-19 23 STAPH/MRSA SCREEN PATIENT: ERIK MORALES [facility] BILL#: [id number] : 55 AGE: SEX: M ORDERED BY: CURTIS MELÉNDEZ SOURCE: MISC COLLECTED: 10/21/22 14:18 ANTIBIOTICS AT TEDDY.: RECEIVED : 10/21/22 21:56 SITE: Bharati Dunham U Ekta T S STAPH/MRSA SCREEN FINAL 10/23/22 12:12 ISOLATE1 : Staphylococcus aureus METHICILLIN SENSITIVE STAPHYLOCOCCUS AUREUS (MSSA) Normal [facility] Comment on above: Performed By: #### S TAP #### [facility] [id number] [place] [address] URINALYSIS WITH CULTURE IF I NDICATEDon 10-21-2022 Appearance (U) CLEAR Normal CLEAR [facility] Comment on above: Performed By: #### U ARFX #### [address] [id number] Bilirubin Ql (U) Negative Normal NEGATIVE [facility] Comment on above: Performed By: #### U ARFX #### [address] [id number] Color (U) YELLOW Normal STRAW,YELLO W [facility] Comment on above: Performed By: #### U ARFX #### [address] [id number] Glucose Ql (U) Negative Normal NEGATIVE [facility] Comment on above: Performed By: #### U ARFX #### [address] [id number] Hemoglobin Ql (U) Negative Normal NEGATIVE [facility] Comment on above: Performed By: #### U ARFX #### [address] [id number] Ketones Ql (U) Negative Normal NEGATIVE [facility] Comment on above: Performed By: #### U ARFX #### [address] [id number] Leukocyte esterase Test strip Ql (U) Negative Normal NEGATIVE [facility] Comment on above: Performed By: #### U ARFX #### [address], [place] [id number] Nitrite Ql (U) Negative Normal NEGATIVE [facility] Comment on above: Performed By: #### U ARFX #### [address] [id number] pH (U) 6.0 [pH] Normal 5.0 - 8.0 [facility] Comment on above: Performed By: #### U ARFX #### [address] [id number] Protein Ql (U) Negative Normal NEGATIVE [facility] Comment on above: Performed By: #### U ARFX #### [address] [id number] Specific gravity (U) [Rel density] 1.010 Normal 1.005 - 1.035 [facility] Comment on above: Performed By: #### U ARFX #### [address] [id number] Urobilinogen (U) [Mass/Vol] mg/dL Normal 0.0 - 1.9 [facility] Comment on above: Performed By: #### U ARFX #### [address] [id number] Color (U) YELLOW See Below [facility] Work Phone: Comment on above: Reference Range: STR AW,YELLOW Glucose Ql (U) Negative NEGATIVE -[facility] [place] Work Phone: Ketones Ql (U) Negative NEGATIVE [facility] Work Phone: Leukocyte esterase Test strip Ql (U) Negative NEGATIVE [facility] Work Phone: pH (U) 6.0 [pH] 5.0 - 8.0 -[facility] [place] Work Phone: Protein (U) [Mass/Vol] Negative NEGATIVE -[facility] [place] Work Phone: RBC (U) [#/Vol] Negative NEGATIVE -[place] [facility] Work Phone: Specific gravity (U) [Rel density] 1.010 1 See Below [facility] Work Phone: Comment on above: Reference Range: 1.0 05 - 1.035 URINALYSIS WITH CULTURE IF INDICATED Negative NEGATIVE -[facility] Work Phone: URINALYSIS WITH CULTURE IF INDICATED <2.0 0.0 - 1.9 -[place] [facility] Work Phone: URINALYSIS WITH CULTURE IF INDICATED CLEAR CLEAR [facility] Work Phone: Established Visit (Orthopaed ic Surgery)on 09-19-2022 Established Visit (Orthopaedic Surgery) Orders Back pain, Other intervertebral disc degeneration, lumbar region Walker Back Brace; Status:Need Information - Financial Authorization; Requested for:[id number]; Osteogenesic Stimulator; Status:Active; Requested for:[id number]; Provider Impressions Assessment: At this time, I [...] included)... Normal [facility] [place]on 08-23-2022 Initial Visit (Orthopaedic Surgery) Provider [...] thoracic and lumbar xrays and MRI in [place]. brought a disc. History of Present IllnessErik [...] to the pain management center down in [place]. Review of Systems Review of systems, past [...] XR Lumbar spine AP and Lateral Normal -[place] [facility] Work Phone: SPINE, LUMBOSACRAL 2 OR 3 EWSon 08-23-2022 SPINE, LUMBOSACRAL 2 OR 3 VIEWS Patient Name: ERIK MORALES STUDY: SPINE, LUMBOSACRAL; 2 OR 3 VIEWS; ; 08/23/2022 1:37 pm INDICATION: pain M51.36: Other intervertebral disc degeneration, lumbar region M54.9: Back pain. ACCESSION NUMBER(S): [id number] ORDERING CLINICIAN: CURTIS MELÉNDEZ FINDINGS: Flexion-extension x-rays [...] Electronically signed by: CURTIS MELÉNDEZ MD Normal [facility] Abdominal Aorta/Nancy ac/IVC Ultraon 07-31-2022 VASC LAB Abdominal Aorta/Iliac/IVC Ultra [address], [address] [address] Vascular Lab Report Abdominal Aorta Iliac Ultrasound/IVC Ultrasound Patient Name: ERIK Mckoy Physician: [id number] Cecilio Go MD, [facility] Study Date: 07/31/2022 Referring CECILIO GO Physician: MRN/PID: [id number] PCP: Carmen Witt Accession/Order#: [id number] CC Report to: Date of : 1955 Technologist: Karol Hull RDCS, RVT Gender: M Technologist 2: Admission Status: Outpatient Location Performed: [facility] Diagnosis/ICD: I71.43-Infrarenal abdominal aortic aneurysm, without rupture Indication: HTN, Hyperlipidemia, Obesity, Former Smoker, Dyspnea, Pulmonary Fibrosis Procedure/CPT: 73727 Duplex Aorta/IVC/Iliac/Bypass [id number] CONCLUSIONS: Aorta/Common Iliac Arteries/IVC: Infrarenal fusiform abdominal [...] Proximal 0.71 cm 0.96 cm 0.96 cm/s [id number] Cecilio Go MD, FACC Final Normal [facility] Abdominal Aorta/Nancy ac/IVC Ultrasoundon 07-31-2022 VASC LAB Abdominal Aorta/Iliac/IVC Ultrasound -[facility] [address] DO Work [...] IRAIS LORENZANA Date: 2022-07-02 13:50 Normal [facility] Office Visit (Cardiology)on 06-04-2022 Follow-up [...] Weight Tips; Status:Complete - Retrospective Authorization; Done: [id number] Some eating tips that can help you lose weight.; Status:Complete - Retrospective Authorization; Done: [id number] SocHx: Former smoker Tobacco Use Screening; Status:Complete; Done: [id number] Patient Instructions Please bring all medicines, vitamins, [...] rashes. Neurologic (more content not included)... Normal Hyperoptic Tobacco Screening.on 023 Adult depression screening assessment No [facility] [employer] 250 DO Work Phone: Fall risk assessment a) No falls within the last year [facility] [employer] 250 DO Work Phone: Tobacco use status [facility] b) No [facility] [employer] 250 DO Work Phone: CREATININEon 02-18-2022 Creatinine [Mass/Vol] 1.23 mg/dL Normal 0.70-1.30 [facility] Comment on above: Performed By: #### E RUR #### [facility] [address] [place] [address] [address] Arielle Biswas EGFR-AF SWISS >60 Normal >=60 [facility] Comment on above: Performed By: #### E RUR #### [facility] [address] [place] [address] [address] Arielle Biswas EGFR-NON AF SWISS 59 mL/min/1.73m2 Critically low >=60 [facility] Comment on above: Performed By: #### E RUR #### [facility] [address] [place] [address] [address] CHEST W CONon [...] BRITANY TSANG Date: 2022-02-18 15:28 Normal [facility] Office Visit (Cardiology)on 12-11-2021 Follow-up [...] pulmonary embolism. Recently follow-up CT scan at [facility] revealed resolution of the pulmonary emboli. Some other pathology was noted with densities requiring follow-up imaging in 3 to 6 months which has been arranged through his PCP. He is currently anticoagulated with Eliquis. The patient is contemplating further dental work in December which he should be able to hold anticoagulation prior to. Recent nuclear stress test at [facility] was reviewed and shared with the patient and was normal. He is also known to have normal ejection fraction. He currently has no complaint to report physical examination was only remarkable for 8 pounds weight gain from last visit. He is now in the obesity range recent medical record from [facility] were reviewed with the patient [...] palpitations, but (more content not included)... Normal Hyperoptic Tobacco Screening.on Fall risk assessment a) No falls within the last year -[facility] [address] DO Work Phone: Tobacco use status [facility]PH[facility] b) No [facility] [address] DO Work Phone: [phone] Tobacco Screening. Yes [facility] [...] by: BRITANY TSANG Date: 2021-11-05 11:08 Normal [facility] NM STRESS/REST MULTIon 10-17 NM STRESS/REST MULTI Patient: ERIK MORALES Exam Date: 10/17/2021 : 1955 Gender:M Ordering : DR CARMEN WITT . Admission #: [id number] Family : Order #: [id number] CLICK HERE TO VIEW EXAM RADIOLOGY REPORT [...] M.D. on 10/17/2021 at 13:48 Normal [facility] T4, T3U, FTI LABCORPon 10-10 Free Thyroxine Index 2.1 Normal 1.2-4.9 [facility] Comment on above: Performed By: #### E RUR #### [facility] [address] [address] [address] Arielle Biwsas T3 Uptake 28 % Normal 24-39 [facility] Comment on above: Performed By: #### E RUR #### [facility] [address] [address] [address] Arielle Biswas T4 [Mass/Vol] 7.5 ug/dL Normal 4.5-12.0 [facility] Comment on above: Performed By: #### E RUR #### [facility] [address] [place] [address] Dr. Arielle Biswas BNPon 10-09-2021 Natriuretic peptide B (Bld) [Mass/Vol] 319.0 pg/mL Normal <=900.0 [facility] Comment on above: Performed By: #### B JIG WORKER, TSH, CMP #### [facility] [address] [place] [address] Dr. Arielle Biswas CBC AUTO DIFFon 10-09-2021 BASO # 0.1 103/ul Normal 0.0-0.1 [facility] Comment on above: Performed By: #### C BC #### [facility] [address] [place] [address] Dr. Arielle Biswas Basophils/100 WBC (Bld) 1.3 % Normal 0.2-2.0 [facility] Comment on above: Performed By: #### C BC #### [facility] [address] [place] [address] Dr. Arielle Biswas EO # 0.2 103/ul Normal 0.0-0.7 [facility] Comment on above: Performed By: #### C BC #### [facility] [address] [place] [address] Dr. Arielle Biswas Eosinophils/100 WBC (Bld) 3.0 % Normal 0.9-7.0 [facility] Comment on above: Performed By: #### C BC #### [facility] [address] [place] [address] Dr. Arielle Biswas Erythrocyte distribution width (RBC) [Ratio] 13.5 % Normal 11.0-15.0 [facility] Comment on above: Performed By: #### C BC #### [facility] [address] [place] [address] Dr. Arielle Biswas Hematocrit (Bld) [Volume fraction] 41.8 % Critically low 42.0-54.0 [facility] Comment on above: Performed By: #### C BC #### [facility] [address] [place] [address] Dr. Arielle Biswas Hemoglobin (Bld) [Mass/Vol] 13.6 g/dL Critically low 14.0-18.0 [facility] Comment on above: Performed By: #### C BC #### [facility] [address] [place] [address] Dr. Arielle Biswas IG # 0.03 10e3/ul Normal 0.00-0.03 [facility] Comment on above: Performed By: #### C BC #### [facility] [address] [place] [address] Dr. Arielle Biswas IG % 0.4 % Normal 0.0-0.5 [facility] Comment on above: Performed By: #### C BC #### [facility] [address] [place] [address] Dr. Arielle Biswas LYMPH # 1.2 103/ul Normal 1.2-3.8 [facility] Comment on above: Performed By: #### C BC #### [facility] [address] [place] [address] Dr. Arielle Biswas Lymphocytes/100 WBC (Bld) 16.5 % Critically low 20.5-60.0 [facility] Comment on above: Performed By: #### C BC #### [facility] [address] [place] [address] Dr. Arielle Biswas MANUAL DIFF REQ NO Normal [facility] Comment on above: Performed By: #### C BC #### [facility] [address] [place] [address] Dr. Arielle Biswas MCH (RBC) [Entitic mass] 31.2 pg Normal 25.9-34.0 [facility] Comment on above: Performed By: #### C BC #### [facility] [address] [place] [address] Dr. Arielle Biswas MCHC (RBC) [Mass/Vol] 32.5 g/dL Normal 29.9-35.2 [facility] Comment on above: Performed By: #### C BC #### [facility] [address] [place] [address] Dr. Arielle Biswas MCV (RBC) [Entitic vol] 95.9 fL Critically high 80.0-94.0 [facility] Comment on above: Performed By: #### C BC #### [facility] [address] [address] [address] Arielle Biswas MONO # 0.8 103/ul Normal 0.3-0.8 [facility] Comment on above: Performed By: #### C BC #### [facility] [address] [address] [address] Arielle Biswas Monocytes/100 WBC (Bld) 11.5 % Normal 1.7-12.0 [facility] Comment on above: Performed By: #### C BC #### [facility] [address] [address] [address] Arielle Biswas NEUT # 4.7 103/ul Normal 1.4-6.5 [facility] Comment on above: Performed By: #### C BC #### [facility] [address] [place] [address] Dr. Arielle Biswas Neutrophils/100 WBC (Bld) 67.3 % Normal 43.0-75.0 [facility] Comment on above: Performed By: #### C BC #### [facility] [address] [place] [address] Dr. Arielle Biswas Platelet mean volume (Bld) [Entitic vol] 10.2 fL Normal 9.5-13.5 [facility] Comment on above: Performed By: #### C BC #### [facility] [address] [place] [address] Dr. Arielle Biswas PLT 243 103/ul Normal 150-450 [facility] Comment on above: Performed By: #### C BC #### [facility] [address] [address] [address] Arielle Biswas RBC 4.36 106/ul Critically low 4.70-6.10 [facility] Comment on above: Performed By: #### C BC #### [facility] [address] [address] [address] Arielle Biswas WBC 7.0 103/ul Normal 4.0-11.0 [facility] Comment on above: Performed By: #### C BC #### [facility] [address] [place] [address] Dr. Arielle Biswas D-DIMERon 10-09-2021 D-DIMER 0.30 mg/L FEU Normal <=0.59 [facility] Comment on above: Performed By: #### E RUR #### [facility] [address] [place] [address] Dr. Arielle Biswas D-DIMER COMMENTS SEE BELOW [facility] Comment on above: Result Comment: Incr [...] hospitalization. Performed By: #### E RUR #### [facility] [address] [place] [address] Dr. Arielle Biswas PROF 14(COMP METB)on 022 Albumin [Mass/Vol] 3.0 g/dL Critically low 3.4-5.0 [facility] Comment on above: Performed By: #### B JIG WORKER, TSH, CMP #### [facility] [address] [place] [address] Dr. Arielle Biswas Albumin/Globulin [Mass ratio] 0.8 {ratio} Normal [facility] Comment on above: Performed By: #### B JIG WORKER, TSH, CMP #### [facility] [address] [place] [address] Dr. Arielle Biswas ALP [Catalytic activity/Vol] 120 U/L Critically high 46-116 [facility] Comment on above: Performed By: #### B JIG WORKER, TSH, CMP #### [facility] [address] [place] [address] Dr. Arielle Biswas ALT [Catalytic activity/Vol] 21 U/L Normal 16-63 [facility] Comment on above: Performed By: #### B JIG WORKER, TSH, CMP #### [facility] [address] [address] [address] Arielle Biswas Anion gap [Moles/Vol] 9.9 mmol/L Normal [facility] Comment on above: Performed By: #### B JIG WORKER, TSH, CMP #### [facility] [address] [place] [address] Dr. Arielle Biswas AST [Catalytic activity/Vol] 20 U/L Normal 15-37 [facility] Comment on above: Performed By: #### B JIG WORKER, TSH, CMP #### [facility] [address] [place] [address] Dr. Arielle Biswas Bilirubin [Mass/Vol] 0.6 mg/dL Normal 0.2-1.0 [facility] Comment on above: Performed By: #### B JIG WORKER, TSH, CMP #### [facility] [address] [place] [address] Dr. Arielle Biswas Calcium [Mass/Vol] 8.8 mg/dL Normal 8.5-10.1 [facility] Comment on above: Performed By: #### B JIG WORKER, TSH, CMP #### [facility] [address] [place] [address] Dr. Arielle Biswas Chloride [Moles/Vol] 103 mmol/L Normal 98-107 [facility] Comment on above: Performed By: #### B JIG WORKER, TSH, CMP #### [facility] [address] [place] [address] Dr. Arielle Biswas CO2 [Moles/Vol] 29.0 mmol/L Normal 21.0-32.0 [facility] Comment on above: Performed By: #### B JIG WORKER, TSH, CMP #### [facility] [address] [place] [address] Dr. Arielle Biswas Creatinine [Mass/Vol] 1.23 mg/dL Normal 0.70-1.30 [facility] Comment on above: Performed By: #### B JIG WORKER, TSH, CMP #### [facility] [address] [place] [address] Dr. Arielle Biswas EGFR-AF SWISS >60 Normal >=60 [facility] Comment on above: Performed By: #### B JIG WORKER, TSH, CMP #### [facility] [address] [address] [address] Arielle Biswas EGFR-NON AF SWISS 59 mL/min/1.73m2 Critically low >=60 [facility] Comment on above: Performed By: #### B JIG WORKER, TSH, CMP #### [facility] [address] [address] [address] Arielle Biswas Globulin (S) [Mass/Vol] 3.7 g/dL Normal [facility] Comment on above: Performed By: #### B JIG WORKER, TSH, CMP #### [facility] [address] [address] [address] Arielle Biswas Glucose [Mass/Vol] 95 mg/dL Normal 74-106 [facility] Comment on above: Performed By: #### B JIG WORKER, TSH, CMP #### [facility] [address] [place] [address] Dr. Arielle Biswas Potassium [Moles/Vol] 3.9 mmol/L Normal 3.5-5.1 [facility] Comment on above: Performed By: #### B JIG WORKER, TSH, CMP #### [facility] [address] [address] [address] Arielle Biswas Protein [Mass/Vol] 6.7 g/dL Normal 6.4-8.2 [facility] Comment on above: Performed By: #### B JIG WORKER, TSH, CMP #### [facility] [address] [address] [address] Arielle Biswas Sodium [Moles/Vol] 138 mmol/L Normal 136-145 [facility] Comment on above: Performed By: #### B JIG WORKER, TSH, CMP #### [facility] [address] [address] [address] Arielle Biswas Urea nitrogen [Mass/Vol] 13.0 mg/dL Normal 7.0-18.0 [facility] Comment on above: Performed By: #### B JIG WORKER, TSH, CMP #### [facility] [address] [address] [address] Arielle Biswas Urea nitrogen/Creatinine [Mass ratio] 10.6 mg/mg Normal [facility] Comment on above: Performed By: #### B JIG WORKER, TSH, CMP #### [facility] [address] [address] [address] Arielle Biswas TSHon 10-09-2021 TSH 0.393 uIU/mL Normal 0.358-3.[address] [facility] Comment on above: Performed By: #### B JIG WORKER, TSH, CMP #### [facility] [address] [address] [address] Arielle Biswas Tobacco Screening.on 022 Adult depression screening assessment No [facility] [address] DO Work Phone: Fall risk assessment a) No falls within the last year [facility] [address] DO Work Phone: Tobacco use status [facility]PHS b) No [facility] [address] DO Work Phone: CARDIAC DAVON 3-6on 2 CK [Catalytic activity/Vol] 80 U/L Normal 39-308 [facility] Comment on above: Performed By: #### E RUR #### [facility] [address] [place] [address] Dr. Arielle Biswas CK.MB [Mass/Vol] 2.19 ng/mL Normal <=3.60 [facility] Comment on above: Performed By: #### E RUR #### [facility] [address] [place] [address] Dr. Arielle Biswas HSTROP 152.1 pg/mL Critically high 4.0-76.1 [facility] Comment on above: Result Comment: CUT- OFF POINTS HAVE BEEN ESTABLISHED BASED ON THE FOURTH UNIVERSAL DEFINITIONS OF MYOCARDIAL INFARCTION. THE UPPER REFERENCE LIMIT (URL) OF TROPONIN, DEFINED THE 99TH PERCENTILE OF cTnI DISTRIBUTION IN A REFERENCE POPULATION, HAS BEEN CONFIRMED THE DECISION THRESHOLD FOR [place] DIAGNOSIS. repeated Performed By: #### E RUR #### [facility] [address] [place] [address] Dr. Arielle Biswas CARDIAC DAVON ADMITon 022 CK [Catalytic activity/Vol] 32 U/L Critically low 39-308 [facility] Comment on above: Performed By: #### B FRANKLYN, CMADM #### [facility] [address] [place] [address] Dr. Arielle Biswas CK.MB [Mass/Vol] 2.01 ng/mL Normal <=3.60 [facility] Comment on above: Performed By: #### B FRANKLYN, MANJULADM #### [facility] [address] [place] [address] Dr. Arielle Biswas HSTROP 144.5 pg/mL Critically high 4.0-76.1 [facility] Comment on above: Result Comment: CUT- OFF POINTS HAVE BEEN ESTABLISHED BASED ON THE FOURTH UNIVERSAL DEFINITIONS OF MYOCARDIAL INFARCTION. THE UPPER REFERENCE LIMIT (URL) OF TROPONIN, DEFINED THE 99TH PERCENTILE OF cTnI DISTRIBUTION IN A REFERENCE POPULATION, HAS BEEN CONFIRMED THE DECISION THRESHOLD FOR TN DIAGNOSIS. repeated Performed By: #### B FRANKLYN, AMANDA #### [facility] [address] [place] [address] Dr. Arielle Biswas PJ 39 ng/mL Normal 16-96 [facility] Comment on above: Performed By: #### B AMANDA ESTES #### [facility] [address] [place] [address] Dr. Arielle Biswas CBC AUTO DIFFon 07-14-2021 BASO # 0.1 103/ul Normal 0.0-0.1 [facility] Comment on above: Performed By: #### E RUR #### [facility] [address] [place] [address] Dr. Arielle Biswas Basophils/100 WBC (Bld) 0.5 % Normal 0.2-2.0 [facility] Comment on above: Performed By: #### E RUR #### [facility] [address] [place] [address] Dr. Arielle Biswas EO # 0.1 103/ul Normal 0.0-0.7 [facility] Comment on above: Performed By: #### E RUR #### [facility] [address] [place] [address] Dr. Arielle Biswas Eosinophils/100 WBC (Bld) 0.6 % Critically low 0.9-7.0 [facility] Comment on above: Performed By: #### E RUR #### [facility] [address] [place] [address] Dr. Arielle Biswas Erythrocyte distribution width (RBC) [Ratio] 14.6 % Normal 11.0-15.0 [facility] Comment on above: Performed By: #### E RUR #### [facility] [address] [place] [address] Dr. Arielle Biswas Hematocrit (Bld) [Volume fraction] 45.5 % Normal 42.0-54.0 [facility] Comment on above: Performed By: #### E RUR #### [facility] [address] [place] [address] Dr. Arielle Biswas Hemoglobin (Bld) [Mass/Vol] 14.5 g/dL Normal 14.0-18.0 [facility] Comment on above: Performed By: #### E RUR #### [facility] [address] [place] [address] Dr. Arielle Biswas IG # 0.13 10e3/ul Critically high 0.00-0.03 [facility] Comment on above: Performed By: #### E RUR #### [facility] [address] [place] [address] Dr. Arielle Biswas IG % 0.8 % Critically high 0.0-0.5 [facility] Comment on above: Performed By: #### E RUR #### [facility] [address] [place] [address] Dr. Arielle Biswas LYMPH # 1.4 103/ul Normal 1.2-3.8 [facility] Comment on above: Performed By: #### E RUR #### [facility] [address] [place] [address] Dr. Arielle Biswas Lymphocytes/100 WBC (Bld) 8.7 % Critically low 20.5-60.0 [facility] Comment on above: Performed By: #### E RUR #### [facility] [address] [place] [address] Dr. Arielle Biswas MANUAL DIFF REQ NO Normal [facility] Comment on above: Performed By: #### E RUR #### [facility] [address] [place] [address] Dr. Arielle Biswas MCH (RBC) [Entitic mass] 30.5 pg Normal 25.9-34.0 [facility] Comment on above: Performed By: #### E RUR #### [facility] [address] [place] [address] Dr. Arielle Biswas MCHC (RBC) [Mass/Vol] 31.9 g/dL Normal 29.9-35.2 [facility] Comment on above: Performed By: #### E RUR #### [facility] [address] [place] [address] Dr. Arielle Biswas MCV (RBC) [Entitic vol] 95.6 fL Critically high 80.0-94.0 [facility] Comment on above: Performed By: #### E RUR #### [facility] [address] [place] [address] Dr. Arielle Biswas MONO # 1.1 103/ul Critically high 0.3-0.8 [facility] Comment on above: Performed By: #### E RUR #### [facility] [address] [place] [address] Dr. Arielle Biswas Monocytes/100 WBC (Bld) 7.1 % Normal 1.7-12.0 [facility] Comment on above: Performed By: #### E RUR #### [facility] [address] [place] [address] Dr. Arielle Biswas NEUT # 12.9 103/ul Critically high 1.4-6.5 [facility] Comment on above: Performed By: #### E RUR #### [facility] [address] [place] [address] Dr. Arielle Biswas Neutrophils/100 WBC (Bld) 82.3 % Critically high 43.0-75.0 [facility] Comment on above: Performed By: #### E RUR #### [facility] [address] [place] [address] Dr. Arielle Biswas Platelet mean volume (Bld) [Entitic vol] 9.7 fL Normal 9.5-13.5 [facility] Comment on above: Performed By: #### E RUR #### [facility] [address] [place] [address] Dr. Arielle Biswas PLT 206 103/ul Normal 150-450 [facility] Comment on above: Performed By: #### E RUR #### [facility] [address] [place] [address] Dr. Arielle Biswas RBC 4.76 106/ul Normal 4.70-6.10 [facility] Comment on above: Performed By: #### E RUR #### [facility] [address] [place] [address] Dr. Arielle Biswas WBC 15.6 103/ul Critically high 4.0-11.0 [facility] Comment on above: Performed By: #### E RUR #### [facility] [address] [place] [address] Dr. Arielle Biswas CTA CHEST WO W [...] H (more content not included)... Normal [facility] SARS-CoV-2 (COVID-19) RNA ELKIN+probe Ql (Unsp spec) Not detected Normal NOT DETECTED [facility] Comment on above: Result Comment: When diagnostic testing is negative, the possibility of a false negative should be considered in the context of a patient's recent exposures and the presence of clinical signs and symptoms consistent with SARS-CoV-2. This test is not yet approved or cleared by the [place] Food and Drug Administration (FDA). This test was developed by [employer], [place], [place]. The performance characteristics of this test were validated by [facility]. The results are not intended to be used as the sole means for clinical diagnosis or patient management decisions. [facility] is authorized under Clinical Laboratory [...] for this test is supported by the Field Service Analyst of Health and Human Service's declaration that [...] used). Performed By: #### E RUR #### [facility] [address] [place] [address] Dr. Arielle Biswas ER URINE PROFILEon 2 Bilirubin Ql (U) Negative Normal NEGATIVE [facility] Comment on above: Performed By: #### E RUR #### [facility] [address] [place] [address] Dr. Arielle Biswas Clarity (U) CLEAR Normal CLEAR [facility] Comment on above: Performed By: #### E RUR #### [facility] [address] [place] [address] Dr. Arielle Biswas Color (U) LT. YELLOW Normal YELLOW [facility] Comment on above: Performed By: #### E RUR #### [facility] [address] [place] [address] Dr. Arielle Biswas ERUAHD A micrscopic examina tion will be performed if indicated. Normal [facility] Comment on above: Performed By: #### E RUR #### [facility] [address] [place] [address] Dr. Arielle Biswas Glucose Ql (U) Negative Normal NEGATIVE [facility] Comment on above: Performed By: #### E RUR #### [facility] [address] [place] [address] Dr. Arielle Biswas Hemoglobin Ql (U) Negative Normal NEGATIVE [facility] Comment on above: Performed By: #### E RUR #### [facility] [address] [place] [address] Dr. Arielle Biswas Ketones Ql (U) Negative Normal NEGATIVE [facility] Comment on above: Performed By: #### E RUR #### [facility] [address] [place] [address] Dr. Arielle Biswas LEUKOCYTES Negative Normal NEGATIVE [facility] Comment on above: Performed By: #### E RUR #### [facility] [address] [place] [address] Dr. Arielle Biswas Nitrite Ql (U) Negative Normal NEGATIVE [facility] Comment on above: Performed By: #### E RUR #### [facility] [address] [place] [address] Dr. Arielle Biswas pH (U) 6.0 [pH] Normal 5-9 [facility] Comment on above: Performed By: #### E RUR #### [facility] [address] [place] [address] Dr. Arielle Biswas SPEC GRAVITY 1.005 Normal 1.005-<=1.0 25 [facility] Comment on above: Performed By: #### E RUR #### [facility] [address] [place] [address] Dr. Arielle Biswas UA PROTEIN Negative Normal NEGATIVE/ TRACE [facility] Comment on above: Performed By: #### E RUR #### [facility] [address] [place] [address] Dr. Arielle Biswas UR MICRO IND NOT INDICATED Normal [facility] Comment on above: Performed By: #### E RUR #### [facility] [address] [place] [address] Dr. Arielle Biswas Urobilinogen Qn (U) 0.2 {Fernando'U}/dL Normal 0.2 - 1. 0 [facility] Comment on above: Performed By: #### E RUR #### [facility] [address] [place] [address] Dr. Arielle Biswas LACTATE/LACTIC ACIDon 2021 Lactate [Moles/Vol] 3.0 mmol/L Critically high 0.4-1.9 [facility] Comment on above: Result Comment: repe ated Performed By: #### E RUR #### [facility] [address] [place] [address] Dr. Arielle Biswas PROF CHEM 8 (BAS METB)on Anion gap [Moles/Vol] 14.0 mmol/L Normal [facility] Comment on above: Performed By: #### B FRANKLYN, CMADM #### [facility] [address] [place] [address] Dr. Arielle Biswas Calcium [Mass/Vol] 8.9 mg/dL Normal 8.5-10.1 [facility] Comment on above: Performed By: #### B FRANKLYN, CMADM #### [facility] [address] [place] [address] Dr. Arielle Biswas Chloride [Moles/Vol] 96 mmol/L Critically low 98-107 [facility] Comment on above: Performed By: #### B FRANKLYN, CMADM #### [facility] [address] [place] [address] Dr. Arielle Biswas CO2 [Moles/Vol] 26.5 mmol/L [facility] 21[facility]0-32.0 [facility] Comment on above: Performed By: #### B FRANKLYN, CMADM #### [facility] [address] [place] [address] Dr. Arielle Biswas Creatinine [Mass/Vol] 1.43 mg/dL Critically high 0.70-1.30 [facility] Comment on above: Performed By: #### B FRANKLYN, CMADM #### [facility] [address] [place] [address] Dr. Arielle Biswas EGFR-AF SWISS 60 mL/min/1.73m2 Normal >=60 [facility] Comment on above: Performed By: #### B FRANKLYN, CMADM #### [facility] [address] [place] [address] Dr. Arielle Biswas EGFR-NON AF SWISS 50 mL/min/1.73m2 Critically low >=60 [facility] Comment on above: Performed By: #### B FRANKLYN, CMADM #### [facility] [address] [address] [address] Arielle Biswas Glucose [Mass/Vol] 122 mg/dL Critically high 74-106 [facility] Comment on above: Performed By: #### B MP, CMADM #### [facility] [address] [place] [address] Dr. Arielle Biswas Potassium [Moles/Vol] 3.5 mmol/L Normal 3.5-5.1 [facility] Comment on above: Performed By: #### B FRANKLYN, CMADM #### [facility] [address] [place] [address] Dr. Arielle Biswas Sodium [Moles/Vol] 133 mmol/L Critically low 136-145 Th [facility] Comment on above: Performed By: #### B FRANKLYN, CMADM #### [facility] [address] [place] [address] Dr. Arielle Biswas Urea nitrogen [Mass/Vol] 12.0 mg/dL Normal 7.0-18.0 [facility] Comment on above: Performed By: #### B FRANKLYN, CMADM #### [facility] [address] [place] [address] Dr. Arielle Biswas Urea nitrogen/Creatinine [Mass ratio] 8.4 mg/mg Normal [facility] Comment on above: Performed By: #### B FRANKLYN, CMADM #### [facility] [address] [place] [address] Dr. Arielle Biswas PROTIMEon 07-14-2021 INR Coag (PPP) [Relative time] 0.99 {INR} Normal [facility] Comment on above: Performed By: #### P TT, PT #### [facility] [address] [place] [address] Dr. Arielle Biswas INR GUIDELINES SEE BELOW Normal [facility] Comment on above: Result Comment: YANG RED INR: 2.0 - 3.0 CONDITIONS NOT LISTED BELOW 2.5 - 3.5 FOR PROSTHETIC HEART VALVE REPLACEMENT 2.5 - 3.5 RECURRENT THROMBOSIS Performed By: #### P TT, PT #### [facility] [address] [place], [place] [address] Dr. Arielle Biswas PT Coag (PPP) [Time] 10.7 s Normal 9.0-11.6 [facility] Comment on above: Performed By: #### P TT, PT #### [facility] [address] [place], [place] [address] Dr. Arielle Biswas PTTon 07-14-2021 aPTT Coag (Bld) [Time] 26.6 s Normal 22.3-36.2 [facility] Comment on above: Performed By: #### P TT, PT #### [facility] [address] [place], [place] [address] Dr. Arielle Biswas Tobacco Screening.on 022 Fall risk assessment a) No falls within the last year [facility] [place] [facility] DO Work Phone: Tobacco use status CP b) No [facility] [facility] DO Work Phone: Tobacco Screening. Yes [facility] [facility] DO Work Phone: [phone] Tobacco Screening.on 021 Fall risk assessment a) No falls within the last year [facility] 250 DO Work Phone: Tobacco use status CP b) No [facility] 250 DO Work Phone: [phone] Tobacco Screening.on 021 Fall risk assessment a) No falls within the last year [facility] 250 DO Work Phone: Tobacco use status CPHS b) No [facility] [facility] DO Work Phone: Vital Signs Date Time Vital Sign Value Performing Clinician Facility 08-21-2023 11: Body height 175.26 cm MD Carmen Witt Work Phone: [facility] 08-21-2023 11: Body mass index (BMI) [Ratio] 29.9 kg/m2 MD Carmen Witt Work Phone: [facility] 08-21-2023 11:11-0400 Body temperature 96.1 [degF] MD Carmen Witt Work Phone: [facility] 08-21-2023 11:11-0400 Body weight 92.07 kg MD Carmen Witt Work Phone: [facility] 08-21-2023 11:11-0400 Diastolic blood pressure 80 mm[Hg] MD Carmen Witt Work Phone: [facility] 08-21-2023 11:11-0400 Heart rate 77 /min MD Carmen Witt Work Phone: [facility] 08-21-2023 11:11-0400 SaO2% (BldA) [Mass fraction] 97 % MD Carmen Witt Work Phone: [facility] 08-21-2023 11:11-0400 Systolic blood pressure 140 mm[Hg] MD Carmen Witt Work Phone: [facility] 04-09-2023 10:04-0500 Body height 175.26 cm MD Jean Nicholson Work Phone: [facility] 04-09-2023 10:04-0500 Body mass index (BMI) [Ratio] 29.9 kg/m2 MD Jean Nicholson Work Phone: [facility] 04-09-2023 10:04-0500 Body temperature 96.7 [degF] MD Jean Nicholson Work Phone: [facility] 04-09-2023 10:04-0500 Body weight 92.07 kg MD Jean Nicholson Work Phone: [facility] 04-09-2023 10:04-0500 Diastolic blood pressure 93 mm[Hg] MD Jean Nicholson Work Phone: [facility] 04-09-2023 10:04-0500 Heart rate 98 /min MD Jean Nicholson Work Phone: [facility] 04-09-2023 10:04-0500 Respiratory rate 20 /min MD Jean Nicholson Work Phone: [facility] 04-09-2023 10:04-0500 SaO2% (BldA) [Mass fraction] 100 % MD Jean Nicholson Work Phone: [facility] 04-09-2023 10:04-0500 Systolic blood pressure 152 mm[Hg] MD Jean Nicholson Work Phone: [facility] 12-23-2022 10:50-0400 Blood Pressure Location Marino SPEAR [facility] 12-23-2022 10:50-0400 Diastolic blood pressure 62 mm[Hg] Marino SPEAR [facility] 12-23-2022 10:50-0400 Heart rate 69 /min Marino SPEAR [facility] 12-23-2022 10:50-0400 Respiratory rate 16 /min Marino SPEAR [facility] 12-23-2022 10:50-0400 Systolic blood pressure 95 mm[Hg] Marino SPEAR [facility] 11-07-2022 10:56-0400 Body temperature 98.6 [degF] Carmen Hoy Other Phone: [facility] 11-07-2022 10:56-0400 Diastolic blood pressure 69 mm[Hg] Carmen Hoy Other Phone: [facility] 11-07-2022 10:56-0400 Heart rate 97 /min Carmen Hoy Other Phone: [facility] 11-07-2022 10:56-0400 Respiratory rate 16 /min Carmen Hoy Other Phone: [facility] 11-07-2022 10:56-0400 SaO2% (BldA) [Mass fraction] 96 % Carmen Hoy Other Phone: [facility] 11-07-2022 10:56-0400 Systolic blood pressure 113 mm[Hg] Carmen Hoy Other Phone: [facility] 10-30-2022 10:00-0400 Body height 175.26 cm Danna Violeta Other [employer] [facility] [employer] Other 10-30-2022 10:00-0400 Body mass index (BMI) [Ratio] 30.27 kg/m2 Danna Violeta Other [employer] Other 10-30-2022 10:00-0400 Body temperature 97 [degF] Danna Violeta Other [employer] Other 10-30-2022 10:00-0400 Body weight 92.99 kg Danna Violeta Other [employer] Other 10-30-2022 10:00-0400 Diastolic blood pressure 75 mm[Hg] Danna Violeta Other [employer] Other 10-30-2022 10:00-0400 Respiratory rate 20 /min Danna Violeta Other [employer] Other 10-30-2022 10:00-0400 SaO2% (BldA) [Mass fraction] 96 % Danna Violeta Other [employer] Other 10-30-2022 10:00-0400 Systolic blood pressure 116 mm[Hg] Danna Violeta Other [employer] Other 08-23-2022 12:57-0400 Body height 175.26 cm Carmen Álvarez Hoy Work Phone: [facility] [place] Work Phone: 08-23-2022 12:57-0400 Body mass index (BMI) [Ratio] 30.57 kg/m2 Carmen Álvarez Hoy Work Phone: [facility] [place] Work Phone: 08-23-2022 12:57-0400 Body surface area Derived from formula 2.1 m2 Carmen Álvarez Hoy Work Phone: [facility] [place] Work Phone: 08-23-2022 12:57-0400 Body weight 93.9 kg Carmen Álvarez Hoy Work Phone: [facility] [place] Work Phone: 08-20-2022 11:30-0400 Body height 175.26 cm Danna Violeta Other [employer] Other 08-20-2022 11:30-0400 Body mass index (BMI) [Ratio] 30.42 kg/m2 Danna Violeta Other [employer] Other 08-20-2022 11:30-0400 Body temperature 96.8 [degF] Danna Violeta Other [employer] Other 08-20-2022 11:30-0400 Body weight 93.44 kg Danna Violeta Other [employer] Other 08-20-2022 11:30-0400 Diastolic blood pressure 80 mm[Hg] Danna Violeta Other [employer] Other 08-20-2022 11:30-0400 Respiratory rate 20 /min Danna Violeta Other [employer] Other 08-20-2022 11:30-0400 SaO2% (BldA) [Mass fraction] 97 % Danna Violeta Other [employer] Other 08-20-2022 11:30-0400 Systolic blood pressure 142 mm[Hg] Danna Violeta Other [employer] Other 08-15-2022 09:30-0400 Body height 175.26 cm Bianka Rosszhang Other [employer] Other 08-15-2022 09:30-0400 Body mass index (BMI) [Ratio] 30.57 kg/m2 Bianka Rossareliso Other [employer] Other 08-15-2022 09:30-0400 Body temperature 96.7 [degF] Bianka Merritto Other [employer] Other 08-15-2022 09:30-0400 Body weight 93.9 kg Bianka Merritto Other [employer] Other 08-15-2022 09:30-0400 Diastolic blood pressure 70 mm[Hg] Bianka Rossareliso Other [employer] Other 08-15-2022 09:30-0400 SaO2% (BldA) [Mass fraction] 98 % Bianka Rossareliso Other [employer] Other 08-15-2022 09:30-0400 Systolic blood pressure 118 mm[Hg] Bianka Rossareliso Other [employer] Other 06-04-2022 11:33-0400 Body height 175.26 cm Carmen M Hoy Work Phone: [facility] DO Work Phone: 06-04-2022 11:33-0400 Body mass index (BMI) [Ratio] 30.13 kg/m2 Carmen M Hoy Work Phone: [facility] 250 DO Work Phone: 06-04-2022 11:33-0400 Body surface area Derived from formula 2.08 m2 Carmen M Hoy Work Phone: [facility] 250 DO Work Phone: 06-04-2022 11:33-0400 Body weight 92.53 kg Carmen M Hoy Work Phone: [facility] 250 DO Work Phone: 06-04-2022 11:33-0400 Diastolic blood pressure 72 mm[Hg] Carmen M Hoy Work Phone: [facility] 250 DO Work Phone: 06-04-2022 11:33-0400 Heart rate 68 /min Carmen M Hoy Work Phone: [facility] 250 DO Work Phone: 06-04-2022 11:33-0400 Systolic blood pressure 110 mm[Hg] Carmen M Hoy Work Phone: [facility] 250 DO Work Phone: 02-05-2022 15:30-0500 Body height 175.26 cm Danna Violeta Other [employer] Other 02-05-2022 15:30-0500 Body mass index (BMI) [Ratio] 29.97 kg/m2 Danna Violeta Other [employer] Other 02-05-2022 15:30-0500 Body temperature 98.4 [degF] Danna Violeta Other [employer] Other 02-05-2022 15:30-0500 Body weight 92.08 kg Danna Violeta Other [employer] Other 02-05-2022 15:30-0500 Diastolic blood pressure 83 mm[Hg] Danna Violeta Other [employer] Other 02-05-2022 15:30-0500 Respiratory rate 20 /min Danna Violeta Other [employer] Other 02-05-2022 15:30-0500 SaO2% (BldA) [Mass fraction] 96 % Danna Violeta Other [employer] Other 02-05-2022 15:30-0500 Systolic blood pressure 143 mm[Hg] Danna Violeta Other [employer] Other 12-11-2021 11:39-0400 Body height 175.26 cm Jean Saeed [email or web address] Work Phone: [employer] 250 DO Work Phone: 12-11-2021 11:39-0400 Body mass index (BMI) [Ratio] 30.72 kg/m2 Jean Saeed [employer] Work Phone: [employer] 250 DO Work Phone: 12-11-2021 11:39-0400 Body surface area Derived from formula 2.1 m2 Jean Saeed Naderer Work Phone: [employer] 250 DO Work Phone: 12-11-2021 11:39-0400 Body weight 94.35 kg Jean Saeed Naderer Work Phone: [facility] [email or web address] 250 DO Work Phone: 12-11-2021 11:39-0400 Diastolic blood pressure 72 mm[Hg] Jean Saeed Naderer Work Phone: [facility] [email or web address] 250 DO Work Phone: 12-11-2021 11:39-0400 Heart rate 72 /min Jean Saeed Naderer Work Phone: [facility] [email or web address] 250 DO Work Phone: 12-11-2021 11:39-0400 Systolic blood pressure 124 mm[Hg] Jean Saeed Naderer Work Phone: [facility] [employer] 250 DO Work Phone: 08-21-2021 15:00-0400 Body height 175.26 cm Danna Violeta Other [employer] Other 08-21-2021 15:00-0400 Body mass index (BMI) [Ratio] 28.35 kg/m2 Danna Violeta Other [employer] Other 08-21-2021 15:00-0400 Body temperature 97.5 [degF] Danna Violeta Other [employer] Other 08-21-2021 15:00-0400 Body weight 87.09 kg Danna Violeta Other [employer] Other 08-21-2021 15:00-0400 Diastolic blood pressure 70 mm[Hg] Danna Violeta Other [employer] Other 08-21-2021 15:00-0400 Respiratory rate 20 /min Danna Violeta Other [employer] Other 08-21-2021 15:00-0400 SaO2% (BldA) [Mass fraction] 94 % Danna Violeta Other [employer] Other 08-21-2021 15:00-0400 Systolic blood pressure 110 mm[Hg] Danna Violeta Other [employer] Other 08-15-2021 11:30-0400 Body height 175.26 cm Julian Matthews Other [employer] Other 08-15-2021 11:30-0400 Body mass index (BMI) [Ratio] 28.06 kg/m2 Julian Matthews Other [employer] Other 08-15-2021 11:30-0400 Body temperature 97.5 [degF] Julian Matthews Other [employer] Other 08-15-2021 11:30-0400 Body weight 86.18 kg Julian Matthews Other [employer] Other 08-15-2021 11:30-0400 Diastolic blood pressure 68 mm[Hg] Julian Matthews Other [employer] Other 08-15-2021 11:30-0400 SaO2% (BldA) [Mass fraction] 98 % Julian Matthews Other [employer] Other 08-15-2021 11:30-0400 Systolic blood pressure 102 mm[Hg] Julian Matthews Other [employer] Other 08-02-2021 08:32-0400 Body height 175.26 cm Jean Nicholson Work Phone: [facility] 250 DO Work Phone: 08-02-2021 08:32-0400 Body mass index (BMI) [Ratio] 28.8 kg/m2 Jean A Naderer Work Phone: [facility] 250 DO Work Phone: 08-02-2021 08:32-0400 Body surface area Derived from formula 2.04 m2 Jean A Naderer Work Phone: [facility] 250 DO Work Phone: 08-02-2021 08:32-0400 Body weight 88.45 kg Jean A Naderer Work Phone: [facility] 250 DO Work Phone: 08-02-2021 08:32-0400 Diastolic blood pressure 62 mm[Hg] Jean Saeed Naderer Work Phone: [facility] 250 DO Work Phone: 08-02-2021 08:32-0400 Heart rate 68 /min Jean Saeed Naderer Work Phone: [facility] 250 DO Work Phone: 08-02-2021 08:32-0400 Systolic blood pressure 108 mm[Hg] Jean Saeed Naderer Work Phone: [facility] 250 DO Work Phone: 07-14-2021 00:00-0400 60 1 Jean A Naderer Work Phone: [facility] 250 DO Work Phone: Comment on above: [id number] 04-30-2021 13:22-0500 Body height 175.26 cm Jean Saeed Naderer Work Phone: [facility] 250 DO Work Phone: 04-30-2021 13:22-0500 Body mass index (BMI) [Ratio] 29.45 kg/m2 Jean Saeed Naderer Work Phone: [facility] 250 DO Work Phone: 04-30-2021 13:22-0500 Body surface area Derived from formula 2.06 m2 Jean A Naderer Work Phone: [facility] 250 DO Work Phone: 04-30-2021 13:22-0500 Body weight 90.45 kg Jean A Naderer Work Phone: [facility] 250 DO Work Phone: 04-30-2021 13:22-0500 Diastolic blood pressure 90 mm[Hg] Jean A Naderer Work Phone: [facility] 250 DO Work Phone: 04-30-2021 13:22-0500 Heart rate 69 /min Jean Saeed Naderer Work Phone: [facility] 250 DO Work Phone: 04-30-2021 13:22-0500 Systolic blood pressure 134 mm[Hg] Jean Saeed Naderer Work Phone: [facility] DO Work Phone: 02-20-2021 14:06-0500 Body height 175.26 cm Jean A Naderer Work Phone: [facility] 250 DO Work Phone: 02-20-2021 14:06-0500 Body mass index (BMI) [Ratio] 29.98 kg/m2 Jean A Naderer Work Phone: [facility] 250 DO Work Phone: 02-20-2021 14:06-0500 Body surface area Derived from formula 2.08 m2 Jean A Naderer Work Phone: [facility] 250 DO Work Phone: 02-20-2021 14:06-0500 Body weight 92.08 kg Jean Christophe Naderer Work Phone: [facility] 250 DO Work Phone: 02-20-2021 14:06-0500 Diastolic blood pressure 76 mm[Hg] Jean Saeed Naderer Work Phone: [facility] 250 DO Work Phone: 02-20-2021 14:06-0500 Heart rate 80 /min Jean Saeed Naderer Work Phone: [facility] 250 DO Work Phone: 02-20-2021 14:06-0500 Systolic blood pressure 110 mm[Hg] Jean Saeed Naderer Work Phone: [facility] 250 DO Work Phone: 02-06-2021 16:10-0500 Diastolic blood pressure 84 mm[Hg] Jean Saeed Naderer Work Phone: [facility] 250 DO Work Phone: 02-06-2021 16:10-0500 Systolic blood pressure 130 mm[Hg] Jean Saeed Naderer Work Phone: [facility] 250 DO Work Phone: 02-06-2021 15:37-0500 Body height 175.26 cm Jean Saeed Naderer Work Phone: [facility] 250 DO Work Phone: 02-06-2021 15:37-0500 Body mass index (BMI) [Ratio] 30.13 kg/m2 Jean Saeed Naderer Work Phone: [facility] 250 DO Work Phone: 02-06-2021 15:37-0500 Body surface area Derived from formula 2.08 m2 Jean Saeed Naderer Work Phone: [facility] 250 DO Work Phone: 02-06-2021 15:37-0500 Body weight 92.53 kg Jean A Naderer Work Phone: [facility] 250 DO Work Phone: 02-06-2021 15:37-0500 Diastolic blood pressure 90 mm[Hg] Jean Saeed Naderer Work Phone: [facility] [facility] DO Work Phone: 02-06-2021 15:37-0500 Heart rate 125 /min Jean Saeed Naderer Work Phone: [facility] 250 DO Work Phone: 02-06-2021 15:37-0500 Systolic blood pressure 128 mm[Hg] Jean Saeed Naderer Work Phone: [facility] [facility] DO Work Phone: 11-30-2020 11:30-0400 Body height 175.26 cm Danna Violeta Other [employer] Other 11-30-2020 11:30-0400 Body mass index (BMI) [Ratio] 29.68 kg/m2 Danna Violeta Other [employer] Other 11-30-2020 11:30-0400 Body weight 91.17 kg Danna Violeta Other [employer] Other 11-30-2020 11:30-0400 Diastolic blood pressure 83 mm[Hg] Danna Violeta Other [employer] Other 11-30-2020 11:30-0400 Respiratory rate 20 /min Danna Violeta Other [employer] Other 11-30-2020 11:30-0400 SaO2% (BldA) [Mass fraction] 98 % Danna Violeta Other [employer] Other 11-30-2020 11:30-0400 Systolic blood pressure 126 mm[Hg] Danna Violeta Other [employer] Other Encounters Encounter Date Encounter Type Care Provider Facility Start: 12-26-2023 ambulatory Marino Colmenares ty:[facility] Start: 08-21-2023 End: 08-21-2023 ambulatory MD Carmen Witt Work Phone: [facility] Work Phone: Start: 08-21-2023 End: 08-21-2023 Patient encounter procedure MD Carmen Witt Work Phone: [facility] V[facility] Work Phone: Start: 06-03-2023 End: 06-04-2023 ambulatory [facility] Start: 06-03-2023 End: 06-03-2023 Office outpatient visit 15 minutes Curtis Meléndez MD Work Phone: [facility] Comment on above: Low back pain, unspe cified back pain laterality, unspecified chronicity, unspecified whether sciatica present (Primary Dx); Lumbar pain Start: 06-03-2023 End: 06-03-2023 Subsequent hospital visit by physician Serene Shetty X-Ray 2 [facility] Comment on above: Lumbar pain Start: 05-19-2023 End: 05-20-2023 ambulatory Maribell Leigh MD Facility:[facility] Start: 04-14-2023 End: 04-14-2023 Patient encounter procedure MD Jean Nicholson Work Phone: [facility] [place] Work Phone: Start: 04-14-2023 End: 04-14-2023 ambulatory MD Jean Nicholson Work Phone: [facility] Work Phone: Start: 04-09-2023 End: 04-09-2023 ambulatory MD Jean Nicholson Work Phone: [facility] Work Phone: Start: 04-09-2023 End: 04-09-2023 Patient encounter procedure MD Jean Nicholson Work Phone: [facility] Work Phone: Start: 04-07-2023 End: 04-08-2023 ambulatory Maribell Leigh MD Facility:[facility] Start: 03-24-2023 End: 03-25-2023 ambulatory Maribell Leigh MD Facility:[facility] Start: 03-04-2023 End: 03-04-2023 Patient encounter procedure MD Jean Nicholson Work Phone: [facility] Work Phone: Start: 03-04-2023 End: 03-04-2023 ambulatory MD Jean Nicholson Work Phone: [facility] Work Phone: Start: 02-28-2023 End: 03-01-2023 ambulatory [facility] Start: 02-28-2023 End: 02-28-2023 Office outpatient visit 15 minutes Curtis Meléndez MD Work Phone: [facility] Comment on above: Low back pain, unspe cified back pain laterality, unspecified chronicity, unspecified whether sciatica present (Primary Dx) Start: 12-23-2022 End: 12-24-2022 ambulatory Marino SPEAR Facility: [facility] Start: 12-23-2022 End: 12-23-2022 Patient encounter procedure Marino Bharati SPEAR [facility] Start: 12-09-2022 End: 12-09-2022 ambulatory [facility] Start: 11-19-2022 Patient encounter procedure Carmen Witt Work Phone: [facility] Work Phone: Start: 11-19-[address] Curtis Meléndez Facility:[id number] Start: 11-04-2022 End: 11-07-2022 Evaluation and management of inpatient Curtis [facility] Start: 10-30-2022 End: 10-30-2022 ambulatory Danna Violeta Other [employer] Other Start: 10-30-2022 Office outpatient vi sit 25 minutes Danna Violeta [facility] Start: 10-22-2022 Patient encounter procedure Carmen Witt Work Phone: [facility] [place] Work Phone: Start: 10-22-[address] Curtis Meléndez Facility:[id number] Start: 10-22-2022 Encounter for other preprocedural examination Dr. Curtis Meléndez [facility] Start: 10-21-[address] Carmen Witt Facility:[id number] Start: 10-21-2022 Encounter for preprocedural cardiovascular examination Dr. Curtis Meléndez [facility] Start: 10-21-2022 Encounter for preprocedural laboratory examination Dr. Curtis Meléndez [facility] Start: 09-19-2022 Patient encounter procedure Carmen Witt Work Phone: [facility] [place] Work Phone: Start: 09-19-[address] Carmen Witt Facility:[id number] Start: 08-23-2022 Chart Update Carmen Witt Work Phone: [facility] [place] Work Phone: Start: 08-23-2022 Patient encounter procedure Carmen Witt Work Phone: [facility] [place] Work Phone: Start: 08-23-[address] Carmen Witt Facility:[id number] Start: 08-20-2022 End: 08-20-2022 ambulatory Danna Violeta Other [facility] Other Start: 08-20-2022 Office outpatient vi sit 25 minutes Danna Violeta [facility] Start: 08-15-2022 End: 08-15-2022 Patient encounter procedure Bianka Garcia [facility] Vascular Surgery Start: 08-15-2022 End: 08-15-2022 ambulatory MD Jean Nicholson Work Phone: [facility] [employer] Other Start: 07-31-2022 Chart Update Carmen Witt Work Phone: [facility] 250 DO Work Phone: Start: 07-31-[address] Cecilio Go Facility:[id number] Start: 07-02-2022 End: 07-03-[address] IRAIS LORENZANA Facility:H1 Start: 06-05-2022 AUDIT Carmen Witt Work Phone: [facility] Work Phone: Start: 06-04-2022 Patient encounter procedure Carmen Witt Work Phone: [facility] DO Work Phone: Start: 06-04-[address] Carmen Witt Facility:[id number] Start: 05-09-2022 End: 05-10-2022 ambulatory LAUREN BAUMANN . Facility:H1 Start: 04-19-2022 Rx Renewal Jean Nicholson Work Phone: [facility] 250 DO Work Phone: Start: 02-18-2022 End: 02-19-[address] BRITANY TSANG Facility:H1 Start: 02-07-2022 End: 02-08-2022 ambulatory LAUREN BAUMANN . Facility:H1 Start: 02-05-2022 End: 02-05-2022 ambulatory Danna Violeta Other [facility] Other Start: 02-05-2022 Office outpatient vi sit 25 minutes Danna Violeta [facility] Start: 12-20-2021 End: 12-21-[address] MARINO SPEAR . Facility:H1 Start: 12-11-2021 Office outpatient vi sit 25 minutes Jean Nicholson Work Phone: [facility] 250 DO Work Phone: Start: 12-11-[address] Jean Nicholson Facility: Start: 11-27-2021 End: 11-28-[address] LORENA ANDERSON . Facility:H1 Start: 11-27-2021 Rx Renewal Jean Nicholson Work Phone: [facility] 250 DO Work Phone: Start: 11-05-2021 End: 11-06-[address] BRITANY TSANG Facility:H1 Start: 10-17-2021 End: 10-18-[address] CARMEN WITT . Facility:H1 Start: 10-12-2021 Rx Renewal Jean Nicholson Work Phone: [facility] 250 DO Work Phone: Start: 10-09-2021 End: 10-10-2021 ambulatory KATHERINE MARTINEZ Facility:H1 Start: 08-30-2021 End: 08-31-2021 ambulatory LAUREN BAUMANN . Facility:H1 Start: 08-21-2021 End: 08-21-2021 ambulatory Danna Violeta Other [employer] Other Start: 08-21-2021 Office outpatient vi sit 25 minutes Danna Violeta [facility] Start: 08-16-2021 End: 08-16-2021 ambulatory Bianka Garcia Other [employer] Other Start: 08-16-2021 Telephone encounter Bianka Lira [facility] Start: 08-15-2021 End: 08-15-2021 ambulatory Julian Matthews Other [employer] Other Start: 08-15-2021 Office outpatient vi sit 25 minutes Julian Byron [facility] Vascular Surgery Start: 08-02-2021 Office outpatient vi sit 25 minutes [facility] DO Work Phone: Start: 07-20-2021 End: 07-20-2021 ambulatory Bianka Garcia Other [employer] Other Start: 07-20-2021 Telephone encounter Bianka Lira [facility] Start: 07-14-2021 End: 07-14-2021 ambulatory CYNDI SIBLEY Facility: Start: 04-30-2021 Office outpatient vi sit 25 minutes [facility] Work Phone: Start: 03-26-2021 Rx Renewal Jean [facility] DO Work Phone: Start: 02-20-2021 Patient encounter procedure Jean [facility]rer [facility] [employer] 250 DO Work Phone: Start: 10-07-2021 Office [...] above: Performed By: #### P SAD #### [facility] [address] [place] [address] Dr. Arielle Biswas Start: 07-14-2021 Operation for [...] 65+ Years (3 - PPSV23 or PCV20) [facility] Start: 01-03-2025 Pneumococcal Vaccine : 65+ Years (3 of 3 - PPSV23 or PCV20) Pneumococcal Vaccine: 65+ Years (3 of 3 - PPSV23 or PCV20) [facility] Start: 12-05-2023 End: 12-05-2023 Patient encounter procedure 12/05/2023 1:30 PM EDT Office Visit [facility] [address] [address] Curtis Meléndez MD [address] [facility], [address] [place] [address] [id number] [facility] Start: 06-17-2023 End: 06-17-2023 Patient encounter procedure 06/17/2023 10:20 AM EDT Office Visit [facility] [address] [facility] [address] [place] [address] Cecilio Go MD [address] [facility] 2, [email or web address] [address] [place] [address] [facility] Start: 04-14-2023 CT Chest WO contrast [facility] Start: 04-14-2023 CT of chest without contrast CT chest wo con high res [facility] Start: 02-28-2023 End: 02-29-2024 XR Lumbar spine 2 or 3 Views [facility] Service Area Work Phone: Comment on above: Expected: 02/28/2023 , Expires: 02/29/2024 Start: 12-10-2022 FUV, Provider: Cecilio Go, Status: Pen, Time: 11:10 AM FUV, Provider: Cecilio Go, Status: Pen, Time: 11:10 AM -[facility] 250 DO Work Phone: Start: 12-09-2022 FUV, Provider: Cecilio Go, Status: Pen, Time: 3:00 PM FUV, Provider: Cecilio Go, Status: Pen, Time: 3:00 PM [facility] [place] Work Phone: Start: 12-09-2022 Patient encounter procedure [facility] Cardiology Frankie Start: 11-19-2022 Patient encounter procedure [facility] Start: 11-19-2022 POV, Provider: Curtis Meléndez, Status: Pen, Time: 1:30 PM POV, Provider: Curtis Meléndez, Status: Pen, Time: 1:30 PM [facility] [place] Work Phone: Start: 11-05-2022 End: 11-05-2023 [facility] Start: 11-04-2022 End: 11-05-2023 [facility] Comment on above: If oral and IV lucita cotics ordered, use oral first and only use IV if oral is ineffective or cannot take oral. Do NOT give oral and IV within one hour of each other unless specificaly ordered. If NO result from Se nokot. Do NOT use with Senokot. Start: 11-04-2022 [facility], Provider: Curtis Meléndez, Status: Pen, Time: 7:30 AM [facility], Provider: Curtis Melédnez, Status: Pen, Time: 7:30 AM [facility] [place] Work Phone: Start: 10-25-2022 COVID-19 Vaccine ( season) COVID-19 Vaccine ( season) [facility] Start: 10-22-2022 [facility], Provider: Curtis Meléndez, Status: Pen, Time: 1:30 PM [facility], Provider: Curtis Meléndez, Status: Pen, Time: 1:30 PM [facility] [place] Work Phone: Start: 09-24-2022 FUV, Provider: Curtis Meléndez, Status: Pen, Time: 1:30 PM [facility]UV, Provider: Curtis Meléndez, Status: Pen, Time: 1:30 PM [facility] Work Phone: Start: 08-23-2022 NPV, Provider: Curtis Meléndez, Status: Pen, Time: 1:15 PM NPV, Provider: Curtis Meléndez, Status: Pen, Time: 1:15 PM -[facility] 250 DO Work Phone: Start: 08-15-2022 US scan of aorta US aorta [facility] Start: 08-15-2022 US Thoracic and abdominal aorta [facility] Start: 08-08-2022 ambulatory Ambulatory Facility:H 1 Start: 07-31-2022 AOIL[facility]C, Provider: FRANKIE LOYAI ULTRASOUND 01,[id number], Status: Pen, Time: 1:30 PM [facility], Provider: FRANKIE HHVI ULTRASOUND 01,[id number], Status: Pen, Time: 1:30 PM [facility] Work Phone: Start: 06-04-2022 FUV, Provider: Cecilio Go, Status: Pen, Time: 11:30 AM FUV, Provider: Cecilio Go, Status: Pen, Time: 11:30 AM [facility] 250 DO Work Phone: Start: 02-06-2022 FUV, Provider: Cecilio Go, Status: Pen, Time: 8:50 AM FUV, Provider: Cecilio Go, Status: Pen, Time: 8:50 AM [facility] 250 DO Work Phone: Start: 12-11-2021 FUV, Provider: Cecilio Go, Status: Pen, Time: 11:20 AM FUV, Provider: Cecilio Go, Status: Pen, Time: 11:20 AM [facility] 250 DO Work Phone: Start: 04-30-2021 FUV, Provider: Cecilio Go, Status: Pen, Time: 1:20 PM FUV, Provider: Cecilio Go, Status: Pen, Time: 1:20 PM [facility] 250 DO Work Phone: Start: 02-15-2021 COVID-19 Vaccine (4 - Moderna series) COVID-19 Vaccine (4 - Moderna series) [facility] Start: 10-18-2005 Zoster Vaccines (1 o f 2) Zoster Vaccines (1 of 2) [facility] Start: 10-18-1977 DTaP/Tdap/Td Vaccine s (1 - Tdap) DTaP/Tdap/Td Vaccines (1 - Tdap) [facility] Start: 10-18-1973 Diabetes mellitus screening Diabetes Screening [facility] Start: 10-18-1973 Hepatitis C screening Hepatitis C [facility] Start: 1955 Lipid panel Lipid Panel [facility] Start: 1955 Medicare Annual Wellness Visit Medicare Annual Wellness Visit (AWV) [facility] Start: 1955 Screening for malignant neoplasm of colon [facility] CT Chest WO contrast [facility] Immunizations Immunization Date Immunization Notes Care Provider Rhys estevez 11-06-2022 influenza, high dose seasonal, preservative-free Carmen Miryam Other Phone: [facility] 12-26-2021 Fluad Quadrivalent 0 .5 ML Intramuscular Prefilled Syringe Jean Nicholson Work Phone: [facility] 250 DO Work Phone: 12-26-2021 influenza, seasonal, injectable Curtis Meléndez MD Work Phone: [facility] Work Phone: 12-21-2020 [employer] COVID-19 Vacc 30 MCG/0.3ML Intramuscular Suspension Jean Nicholson Work Phone: [facility] 12-21-2020 pneumococcal conjuga te vaccine, 13 valent Jean Nicholson Work Phone: [facility] 12-21-2020 zoster vaccine recombinant Jean Nicholson Work Phone: [place] [address] DO Work Phone: 12-21-2020 zoster vaccine, unspecified formulation Curtis Meléndez MD Work Phone: [facility] Work Phone: 12-10-2020 Fluad Quadrivalent 0 .5 ML Intramuscular Prefilled Syringe Jean Nicholson Work Phone: [place] [address] DO Work Phone: 12-10-2020 influenza, seasonal, injectable Curtis Meléndez MD Work Phone: [facility] Work Phone: 06-21-2020 COVID-19 Vaccine Moderna - Documentation Purposes Only Danna Mcdaniel Other [facility] [employer] Other 05-09-2020 COVID-19 Vaccine Moderna - Documentation Purposes Only Danna Mcdaniel Other [facility] Other 01-04-2020 influenza, injectabl e, quadrivalent, preservative free Jean Nicholson Work Phone: [place] [address] DO Work Phone: 01-04-2020 influenza, seasonal, injectable Curtis Meléndez MD Work Phone: [facility] Work Phone: 01-04-2020 pneumococcal polysaccharide vaccine, 23 valent Jean Nicholson Work Phone: [facility] 12-20-2019 influenza, seasonal, injectable Jean Nicholson Work Phone: [facility] 10-25-2018 influenza, injectabl e, quadrivalent, preservative free Curtis Meléndez MD Work Phone: [facility] Work Phone: 10-25-2018 influenza, seasonal, injectable Jean Nicholson Work Phone: [facility] 250 DO Work Phone: 11-24-2017 influenza virus vaccine, unspecified formulation Jean Nicholson Work Phone: [facility] 250 DO Work Phone: 02-25-2016 pneumococcal polysaccharide vaccine, 23 valent Jean Saeed Gina Work Phone: [facility] Payers Date Payer Category Payer Medicare 2022 Self-pay [id number] 2022 Unknown 2020 Unknown [id number] 2.16 .[id number] 2020 Unknown [id number] 2.16.840 .1.475049.19 1959 Unknown [id number] 1955 Unknown [id number] 2.16.84 0.1.954438.3.579.2.593 1955 Unknown [id number] 2.16.84 0.1.924853.3.579.2.593 1955 Unknown [id number] 2.16.84 0.1.401803.3.579.2.593 1955 Unknown [id number] 2.16.84 0.1.404489.3.579.2.593 1955 Unknown [id number] 2.16.84 0.1.710186.3.579.2.593 1955 Unknown [id number] 2.16.84 0.1.261201.3.579.2.593 1955 Unknown [id number] 2.16.84 0.1.165301.3.579.2.593 1955 Unknown [id number] 2.16.84 0.1.051094.3.579.2.593 1955 Unknown [id number] 2.16.84 0.1.107077.3.579.2.593 1955 Unknown [id number] 2.16.84 0.1.060185.3.579.2.593 1955 Unknown [id number] 2.16.84 0.1.979405.3.579.2.593 1955 Unknown [id number] 2.16.84 0.1.842839.3.579.2.593 1955 Unknown [id number] 2.16. 840.1.209650.3.579.2.356 1955 Unknown [id number] 2.16. 840.1.347601.3.579.2.356 1955 Unknown [id number] 2.16.8 40.1.876741.3.579.2.1244 1955 Unknown [id number] 2.16.8 40.1.940752.3.579.2.8 1955 Unknown [id number] 2.16.8 40.1.115590.3.579.2.1068 1955 Unknown [id number] 2.16.8 40.1.285729.3.579.2.1068 1955 Unknown [id number] 2.16.8 40.1.797511.3.579.2.106 1955 Unknown [id number] 2.16.8 40.1.642590.3.579.2.8 1955 Unknown [id number] 2.16.8 40.1.298011.3.579.2.1068 1955 Unknown [id number] 2.16.8 40.1.283038.3.579.2.1068 1955 Unknown [id number] 2.16.8 40.1.042214.3.579.2.727 1955 Unknown [id number] 2.16.8 40.1.334891.3.579.2.727 1955 Unknown [id number] 2.16.84 0.1.533902.3.579.2.1246 1955 Unknown [id number] 2.16.84 0.1.803117.3.579.2.1246 1955 Unknown [id number] 2.16.84 0.1.935493.3.579.2.1246 1955 Unknown [id number] 2.16.84 0.1.091863.3.579.2.1246 1955 Unknown [id number] 2.16. 840.1.607932.3.579.2.196 1955 Unknown [id number] 2.16. 840.1.456319.3.579.2.196 1955 Unknown [id number] 2.16. 840.1.885155.3.579.2.196 Medicare [id number] 2.1 6.840.1.883036.19 Medicare [facility] [id number] Medicare [id number] Unknown [id number] 2.16.8 40.1.348070.3.579.2.531 Unknown [id number] 2.16.8 40.1.454991.3.579.2.531 Unknown [id number] 2.16.8 40.1.619590.3.579.2.531 Social History Date Type Detail Facility Start: 12-09-2022 Former smoker Former smoker -[facility] 250 DO Work Phone: Start: 12-09-2022 Sex Assigned At F [facility] Start: 07-14-2021 End: 12-09-2022 Tobacco smoking status NHIS Never smoked tobacco (finding) [facility] Start: 1955 Sex Assigned At Male F [facility] Tobacco smoking consumption unknown [facility] Start: 12-18-2020 End: 08-21-2023 Tobacco smoking status Ex-smoker (finding) [facility] Start: 12-09-2022 Tobacco use and exposure Smokeless tobacco non-user [facility] Work Phone: Start: 12-09-2022 Alcohol intake Lifetime non-d lalo (finding) [facility] Work Phone: Start: 1955 Sex Assigned At Not on file [facility] Work Phone: Start: 02-18-2023 End: 06-03-2023 Exposure to SARS-CoV-2 (event) Not sure [facility] Functional Status Date Assessment Result Facility 12-23-2022 Functional Status N/A [facility] Functional observable [facility] Mental Status Date Assessment Result Facility 11-06-2022 Cognitive functions [id number] [facility] Clinical Notes 11-30-2020 to 06-03-2023 Curtis Meléndez MD - 06/03/2023 1:45 PM Melani Meléndez MD - 02/28/2023 1:15 PM EST [...] split dictation. -Nicolas Kohli PA-C In a cnfv-bd-[id number] encounter, I performed a history and physical [...] MD Orthopedic surgery documented in this encounter [facility] Work Phone: 02-28-2023 History of Present [...] portion of this split dictation. In a [id number] encounter, I performed a history and physical [...] the lumbar spine. documented in this encounter [facility] Work Phone: 12-23-2022 Hospital Discharge instructions [...] treatment? Where to find more information [employer]: www.cancer.org [employer] [employer]: www.auanet.org Contact a health care [...] provider. Document Revised: 08/06/2021 Document Reviewed: 08/06/2021 [email or web address] Patient Education 2022 Health Global Connect. Follow Up Care 12/21/2021 12:26:12 With:RAINER JIMENEZ, Marino Calabrese, URL Address: [facility] [address] , [place] [phone] When: Unknown Comments:1 yr w/ PSA [facility] 11-07-2022 Note Send Summary: Discharge Summary Providers: Provider RoleProvider Name Carmen Conner Robert ConsultingKher, Cayden PrimaryHoy, Carmen M Note Recipients: Curtis Meléndez MD - [id number] [Preferred] Carmen Witt MD - [id number] [] Cayden Flores MD Discharge: Summary: Admission Date: .04-Nov-2022 05:14:00 Discharge Date: 07-Nov-2022 Attending Physician at Discharge: Curtis Meléndez Admission Reason: Lumbar stenosis and spondylolisthesis(1) Final Discharge Diagnoses: Back pain Procedures: Date: 04-Nov-2022 13:07:00 Procedure Name: 1. 2. 3. 4. 5. Condition at Discharge: Satisfactory Disposition at Discharge: .Home Vital Signs: T PRBPMAPSpO2 [id number]% Date/Time11/07 8:5611/07 8:5611/07 8:5611/07 8: 21:0811/07 8:56 [...] please call ahead and schedule appointment Location: [address] [facility] Phone Number: [phone] Discharge Medications: Home Medication furosemide 20 mg [...] tab(s) orally once a day Potassium Chloride (Mxv-Qjfe-Hfc 10) 10 mEq oral tablet, extended release [...] discharge: Full Code Electronic Signatures: LisandroGilda guzmán (LABORER HEADING-GREEK PROFESSOR) (Signed 07-Nov-2022 09:26) Authored: Send Summary, Summary Content, Immunizations, Ongoing Care, DNR Status, Note Completion Last Updated: 07-Nov-2022 09:26 by Gilda Mcmahon (LABORER HEADING-GREEK PROFESSOR) References: 1. Data Referenced From [facility] 04-Nov-2022 16:29 [facility] 11-04-2022 Note Post Operative Note: Post-Procedure Diagnosis: Lumbar stenosis and spondylolisthesis Procedure: 1. 2. 3. 4. 5. Surgeon: Ángela Resident/Fellow/Other Certified Alcohol Drug Counselor: Alice Estimated Blood Loss (mL): 100 cc Specimen: no Findings: Lumbar stenosis and spondylolisthesis Operative Report Dictated: Dictation: not applicable - note contains Operative Report Note Recipients: Curtis Meléndez MD - [id number] [Preferred] Carmen Witt MD - [id number] [] Operative Report: Preoperative diagnosis: L2-3 and [...] Curtis Meléndez M.D. Asst.: Sonu HillThe physician medical receptionist assistant was present through the entire case. Given the nature of the disease process and the procedure to be performed a skilled surgical dressing maker was necessary during the case. The medical receptionist assistant was necessary in order to hold retractors and directly assist in the operation. A certified shorthand reporter was at the back table managing instruments [...] the large dilat (more content not included)... [facility] 11-04-2022 Reason for referral (narrative) Reason for Referral: Surgery 11.04.2022 L3-4 lateral interbody fusion, L2-3 and L3-4 laminectomy and posterior lateral fusion, L3-4 lateral instrumentation, thermal ablation of median nerve to L2-3 and L3-4 [facility] 10-30-2022 Evaluation note Encounter Date Diagnosis Assessment Notes Oct, Diastolic dysfunction (ICD-10 - I51.89) Continue all recommendati on/medicatio ns per your Art Specialist . Oct, ILD (interstitial lung disease) (ICD-10 - J84.9) Pulmonary Function Test as scheudled prior to next office appointment. [employer] Other 07-27-2023 History of Present illness NarrativeGarry [...] has no bowel or bladder complaints[facility] Work Phone: [phone]) 393-324306-27-2023 Evaluation note* Encounter Date Diagnosis Assessment Notes Treatment Notes Treatment Clinical Notes Jul, Diastolic dysfunction (ICD-10 - I51.89) Jul, ILD (interstitial lung disease) (ICD-10 - J84.9) I reviewed results and images of your Chest CT completed at [facility] 10/2021 and 01/2022. There is evidence of very mild fibrosis (scarring). Continue with physcial activity as you are. [employer] Other 06-22-2023 Evaluation note* Encounter Date Diagnosis [...] agrees with plan, and denies any questions. [employer] Other 03-16-2023 NoteCONSULTATION CONSULTATION DATE: 05/09/2022 HISTORY: [...] is currently under the care of a clinical supervisor. Most recent physician appointment does show that his lungs are slowly improving. He does have a Cardiology appointment on 06/13/2022, and at that time, he will discuss with the home theatre technician regarding possible use of sedation and holding [...] otherwise indicated. Patient agrees with this care.[facility] [id number] NoteCONSULTATION CONSULTATION DATE: 02/07/2022 HISTORY OF PRESENT [...] still being followed up with Pulmonology in [place] at [facility] and, most recently, they feel [...] up in three months, unless otherwise indicated.[facility] [id number] Evaluation note* Encounter Date Diagnosis Assessment Notes Treatment Notes Treatment Clinical Notes Jan, Diastolic dysfunction (ICD-10 - I51.89) Jan, ILD (interstitial lung disease) (ICD-10 - J84.9) I will look at Chest CT from [place] and let you know if any further testing is needed. Jan, Dyspnea (ICD-10 - R06.00) [employer] Other 10-04-2022 NoteCONSULTATION CONSULTATION DATE: 11/27/2021 CHIEF [...] is under the care of Dr. Go, home theatre technician, who has suggested that the patient not hold the Eliquis for any treatment right now and, as such, we will maintain a conservative approach. IMPRESSION: As such, the patient's current working diagnosis is chronic low back pain, new diagnosis of cystic fibrosis. A recent CT of the lung was performed and the patient is under the care of [facility]. The patient is also under anticoagulation therapy. PLAN: We will refill the patient's Percocet 5/325 b.i.d. The patient will be returning in clinic as needed. The patient has had a rhizotomy, radiofrequency along the low back and, as such, is stable with regards to his low back.[facility] [id number] NoteCONSULTATION CONSULTATION DATE: 08/30/2021 This is a [...] past he had been diagnosed with an TN in addition to an aneurysm and cystic fibrosis. The patient was worked up in the emergency department and it was found that he had multiple PEs in his lungs and in his right lower leg. The patient was transferred to [facility] where the large PE was surgically [...] be followed up in three months' time. [facility] Signed and Approved by: LAUREN BAUMANN . 09/06/2021 09:46:00[facility]06[facility]28-20[facility] Evaluation note* Encounter Date Diagnosis [...] physcial activity....walk 3-4x a day to start. [employer] Other 06-22-2022 Evaluation note* Encounter Date Diagnosis [...] the plan all his questions were addressed. [employer] Other 10-07-2021 Evaluation note* Encounter Date Diagnosis [...] Nov, Other Try Mylanta for acid reflux. [employer] Other Evaluation + Plan note Future Appointments Appointment Date:12/26/2023 11:00:00 AM Scheduled Provider:Marino SPEAR MD Location:[facility] Appointment Type:URO Office Visit Diagnostic Tests Pending * PSA Total 12/23/22 [facility] evaluation noteNo InformationNort Host Committee Other Evaluation noteNo assessment information available [facility] Work Phone: Evaluation note* Constitutional: Well [...] senses, motor, response and reflexes, normal strength [facility] Diagnosis Low back pain, unspecified back pain laterality, unspecified chronicity, unspecified whether sciatica present- Primary documented in this encounter [facility] Work Phone: Evaluation note* Diagnosis Onset Date Resolution Status Grade I diastolic dysfunction acute Pulmonary fibrosis acute [facility] Work Phone: Evaluation note* Diagnosis Low back pain, unspecified back pain laterality, unspecified chronicity, unspecified whether sciatica present- Primary Lumbar pain Lumbago documented in this encounter [facility] Work Phone: Evaluation note* Diagnosis Lumbar pain Lumbago documented in this encounter [facility] Work Phone: Evaluation note* Diagnosis Onset Date Resolution Status AAA (abdominal aortic aneurysm) acute [facility] Work Phone: Hisupwh general Narrative - Reported* Type Description Date Medical History COPD Medical History asthma Medical History sleep apnea (negative PSG) Medical History aaa Medical History pe Surgical History spine 2001 Surgical History neck 2004 Surgical History prostate biopsy 2017 Surgical History dental extraction Hospitalization History as above Hospitalization History pe 2021 [employer] Other Hisaxig general Narrative - Reported* Type Description Date Medical History NOEL Medical History COPD Medical History asthma Medical History sleep apnea Surgical History spine 2001 Surgical History neck 2004 Surgical History prostate biopsy 2017 Hospitalization History as above [employer] Other Hisezbe general Narrative - Reported* Type Description Date Medical History COPD Medical History asthma Medical History sleep apnea (negative PSG) Surgical History spine 2001 Surgical History neck 2004 Surgical History prostate biopsy 2017 Hospitalization History as above [employer] Other Hisyvqi general Narrative - Reported* Type Description Date Medical History COPD Medical History asthma Medical History sleep apnea (negative PSG) Medical History aaa Medical History pulmonary embolism Surgical History spine 2001 Surgical History neck 2004 Surgical History prostate biopsy 2017 Surgical History dental extraction Hospitalization History as above Hospitalization History pulmonary embolism [facility] 06/2021 [employer] Other Hisoqsm general Narrative - Reported* Type Description Date Medical History COPD Medical History asthma Medical History sleep apnea (negative PSG) Medical History aaa Medical History pulmonary embolism Medical History interstitial lung disease Medical History diastolic dysfunction Surgical History spine 2001 Surgical History neck 2004 Surgical History prostate biopsy 2017 Surgical History dental extraction Hospitalization History as above Hospitalization History pulmonary embolism [facility] 06/2021 [employer] Other History of Present illness NarrativeErik is [...] to the pain management center down in [place].[facility] Work Phone: Hospital course Narrative No data available for this section [facility] Hospital Discharge instructions* Activity:activity as tolerated. [...] weeks, please call ahead and schedule appointmentLocation: [address] [facility]: [phone] [facility] No data available for this section [facility] Chief Complaint Pt came in today for [...] office for follow-up for recent admission to [facility] with bilateral pulmonary embolism leading to [...] pulmonary embolism. Recently follow-up CT scan at [facility] revealed resolution of the pulmonary emboli. Some other pathology was noted with densities requiring follow-up imaging in 3 to 6 months which has been arranged through his PCP. He is cu rrently anticoagulated with Eliquis. The patient is contemplating further dental work in December which he should be able to hold anticoagulation prior to. Recent nuclear stress test at [facility] was reviewed and shared with the patient and was normal. He is also known to have normal ejection fraction. He currently has no complaint to report physical examination was only remarkable for 8 pounds weight gain from last visit. He is now in the obesity range recent medical record from [facility] were reviewed with the patient [...] thoracic and lumbar xrays and MRI in [place]. brought a disc.new patient. low back pain with RT sided pain to nee x 2 months. h/o sx in 1998. thoracic and lumbar xrays and MRI in [place]. brought a disc.F/U Lumbar after therapy, says [...] lumbar spine 2-3 views Curtis Meléndez MD [address] [facility], [address] [place] [id number] Referral ID Status Reason Start Date Expiration Date Visits Requested Visits Authorized [id number] Authorized Perform Procedure 06/03/2023 06/02/2024 1 1 Specialty Diagnoses / Procedures Referred By Contac t Referred To Contact Radiology Diagnoses Low back pain, unspecified back pain laterality, unspecified chronicity, unspecified whether sciatica present Procedures XR lumbar spine 2-3 views Curtis Meléndez MD [address] [facility], [address] [place] [id number] Referral ID Status Reason Start Date Expiration Date Visits Requested Visits Authorized [id number] Authorized Perform Procedure 02/28/2023 02/28/2024 1 1 [...] spine 2-3 views Ángela, Curtis J, MD [address] [facility], [address] [place] [id number] Referral ID Status Reason Start Date Expiration Date Visits Requested Visits Authorized [id number] Authorized Perform Procedure 06/03/2023 06/02/2024 1 1 (unrecognized sect ion and content) No Status Records FoundNo Status Records FoundNo Status Records FoundNo Status Records FoundNo Status Records FoundNo Status Records FoundNo Status Records FoundNo Status Records FoundNo Status Records Found INFORMATION SOURCE (unrecogn ized section and content) DATE CREATED AUTHOR 07/07/2022 [facility] DATE CREATED AUTHOR AUTHOR'S ORGANIZ ATION 10/25/2022 [facility] DATE CREATED AUTHOR AUTHOR'S ORGANIZ ATION 11/29/2022 [employer] DATE CREATED AUTHOR AUTHOR'S ORGANIZ ATION 12/11/2022 [facility] DATE CREATED AUTHOR AUTHOR'S ORGANIZ ATION 12/14/2022 [facility] DATE CREATED AUTHOR AUTHOR'S ORGANIZ ATION 12/24/2022 [facility] DATE CREATED AUTHOR AUTHOR'S ORGANIZ ATION 06/08/2023 [facility] DATE CREATED AUTHOR AUTHOR'S ORGANIZ ATION 07/01/2023 [facility] DATE CREATED AUTHOR AUTHOR'S ORGANIZ ATION 08/22/2023 [facility] Care Teams (unrecognized sec tion and content) Team Status: Active Member Role Status Dates Jean Nicholson MD Primary Care Provider Active Team Status: Inactive Member Role Status Dates Jean Nicholson MD Primary Care Provider Active EDEL Ervin Attending Provider Active Clinical Law Professor Relationship Specialty Start Date End Date Carmen Witt MD [address] [facility] [place] [address] PCP - General 06/04/22 Team Status: Inactive Member Role Status Dates Jean Nicholson MD Primary Care Provider Active Danna Mcdaniel APRN [facility] Attending Provider Active Team Status: Inactive Member Role Status Dates Jean Nicholson MD Primary Care Provider Active S tart: March 04, 2023 End: March 04, 2023 Danna Mcdaniel APRN [facility] Attending Provider Active Start: March 04, 2023 End: March 04, 2023 Team Status: Inactive Member Role Status Dates Jean Nicholson MD Primary Care Provider Active S tart: April 09, 2023 End: April 09, 2023 Danna Mcdaniel APRN [facility] Attending Provider Active Start: April 09, 2023 End: April 09, 2023 Team Status: Active Member Role Status Dates Carmen Witt MD Primary Care Provider Active Team Status: Inactive Member Role Status Dates Danna Mcdaniel APRN [facility] Attending Provider Active Start: April 14, 2023 End: April 14, 2023 Carmen Witt MD Primary Care Provider Active Start: April 14, 2023 End: April 14, 2023 Clinical Law Professor Relationship Specialty Start Date End Date Carmen Witt MD [address] [place] [address] PCP - General 06/04/22 Clinical Law Professor Relationship Specialty Start Date End Date Carmen Witt MD [address] [place] [address] PCP - General 06/04/22 Team Status: Inactive [...] BE BASED ON THE PRIMARY CLINICAL RECORDS. [employer] [facility]. provides no warranty or guarantee of the accuracy or completeness of information in this document.
[2023-09-22 10:40] VITALS: BP 124/68; PULSE 73; O2SAT 92
[2023-09-22] MEDS: 0.9 % SODIUM CHLORIDE 10 ML SYRINGE - SALINE FLUSH 7 ML INJ (10:42)
[2023-09-22] MEDS: BUPIVACAINE HCL 0.25% PF 25 MG/10 ML VIAL 2 ML INJ (10:42)
[2023-09-22] MEDS: IOHEXOL 240 MG/ML - 10 ML VIAL 24 MG IV (10:43)
[2023-09-22] MEDS: LIDOCAINE HCL 2% 400 MG/20 ML MDV 3 ML INJ (10:43)
[2023-09-22] MEDS: TRIAMCINOLONE ACETONIDE 40 MG/ML VIAL 80 MG INJ (10:43)
[2023-09-22 10:45] VITALS: BP 127/71; PULSE 57; O2SAT 96
--- NOTE | 2023-09-22 10:47 | P.ON_ITS ---
Date of procedure: 09/22/23 Pre-op diagnosis: Pain due to lumbar stenosis with neurogenic claudication Post-op diagnosis: same as pre-op Procedure: Procedure: Caudal epidural steroid injection Medications: Bupivacaine 0.25% 4cc, normal saline 0.9% 4cc, kenalog 80mg After informed consent was obtained, the patient was brought to the medical procedure unit and placed in the prone position.? A timeout was completed identifying correct patient, procedure, site, positioning, and special equipment.? The skin overlying the area was prepped and draped in standard sterile fashion using alcohol, after which a 25-gauge needle was used to raise a skin wheal over the sacral hiatus identified under fluoroscopy.? Subsequently a 17-gauge Tuohy needle was inserted through anesthetized area and directed toward the sacral hiatus under fluoroscopic guidance.? After piercing the sacrococc ygeal membrane, needle tip placement was confirmed by injection of Omnipaque dye.? Then 10 mL of steroid solution was instilled.? Postoperatively, needles were removed and the catheter was removed with the tip intact.? The patient was transferred to the recovery area in stable condition to be discharged after meeting criteria. Anesthesia: Local Surgeon: Maribell Leigh Pathology: none sent Condition: stable Disposition: no change
== END 2023-09-22 10:51 | disposition home or self-care (01) ==
LOC: SURGOUT 09:31
PROVIDERS: PCP Family Medicine; Visit Provider Anesthesiology
DX: M48.062 Spinal stenosis, lumbar region with neurogenic claudication (principal)
CPT/HCPCS: 62323; J0665; J3301; Q9966

== ENCOUNTER 2023-10-09 12:18 | Outpatient (OUT) | payer OTHER, SELFPAY ==
--- OUTSIDE RECORDS SUMMARY | 2023-10-09 12:29 | XMS_ITS | CCD ---
Author Organization [facility] Care Team Providers Care Lithographic Retoucher Apprentice Name Role Phone Jean Nicholson Christophe Unavailable Unavailable Unavailable Julian Matthews Unavailable [phone] Bianka Garcia Unavailable Danna Mcdaniel Unavailable [...] vailable HOY ., DR MORALES Consulting Unavailable JUNA, KATHERINE Primary Care Unavailable HOY ., DR [...] Consulting Unavailable JUAN, KATHERINE Primary Care Unavailable JUSTIN ., DR LORENA Dunham Attending Unavailable ANDERSON ., DR LORENA Dunham Admitting Unavailable MD Jean Nicholson Primary Care Provider EDEL Garcia Attending Provider Dr. Jean Nicholson Primary Care Unagabbi Go, Dr. Cecilio Harman [...] able Ángela, Dr. Curtis Keys Attending Leonor Go, Dr. Cecilio Harman Attending Aracely olga Witt, Dr. Carmen Fabian Primary Care Unavail able Ángela, Dr. Curtis Keys Attending Leonor Meléndez, Dr. Curtis Keys Admitting Leonor Witt, Dr. Carmen Fabian Referring Unavail harini Witt, Dr. Carmen Fabian Primary Care Unavail able Carmen Witt Primary Care Physician [phone] Marino SPEAR Attending Unavailable Marino SPEAR Attending Unavailable Carmen Witt MD Primary Care Provider [phone] MD Jean Nicholson Primary Care Provider [phone] JESSICA Mcdaniel Attending Provider [phone] MD Carmen Witt Primary Care Provider [phone] CURTIS MELÉNDEZ Attending Unavailable CARMEN WITT Primary Care Unavailable CURTIS MELÉNDEZ Referring Unavailable CARMEN WITT Primary Care Unavailable CURTIS MELÉNDEZ Attending Unavailable CARMEN WITT Primary Care Unavailable CURTIS MELÉNDEZ Referring Unavailable CARMEN WITT Primary Care Unavailable MD Carmen Witt Primary Care Provider [phone] EDEL Garcia Attending Provider Bianka Garcia Attending Unavailable Bianka Garcia Admitting Unavailable Carmen Witt Primary Care Unavailable Danna Mcdaniel Attending Unavailable Danna Mcdaniel Admitting Unavailable Carmen Witt Primary Care Unavailable Danna Mcdaniel Admitting Unavailable Jean Nicholson Primary Care Unavailable Danna Mcdaniel Attending Unavailable Reese JIMENEZ, Maribell Boland Attending Unavailable Reese JIMENEZ, Andrius Boland Attending Unavailable Reese JIMENEZ, Andrius Boland Attending Unavailable Reese JIMENEZ, Maribell Boland Attending Unavailable Allergies Allergy Classification Reported Allergen(s) Allergy Type Date of Onset Reaction(s) Facility Nitrate Vasodilator (1 source) Nitroglycerin Drug Allergy 4 Unresponsive [facility] (20 sources) Nitroglycerin; Translations: [nitroglycerin] Drug Allergy 2 Other [facility] (9 sources) Nitroglycerin Drug Allergy Unknown [facility] Other (1 source) Aminolevulinic Acid Drug Allergy [facility] (2 sources) Nitroglycerin Drug Allergy 2 [facility] Repository Medications Current Medications Medication [...] 11/16/18 Status: Ordered Comment on above: Caution [place] law prohibits the transfer of this drug [...] than prescribed may cause serious breathing problems. [id number] actuat albuterol 0.09 mg/actuat metered dose [...] Atorvastatin Active 40 MG PO Every evening 30 July 16, 2021 12:00am Baclofen (14 sources) [...] 2021 12:00am take 1 tablet by siobhan every twenty-four hours Metoprolol Succinate ER 25 [...] disease (1 source) Atherosclerotic heart disease of [place] coronary artery without angina pectoris; Translations: [ASHD FL[place]RE[place] CA W/O ANGINA PECTORIS] Onset: 2 Chronic [...] other medications] Episodic Other aftercare (2 sources) longterm (current) use of anticoagulants; Translations: [FCI CURRNT USE ANTICOAGULANTS] Onset: 2 Episodic Other [...] sources) SPINAL STENOSIS, LUMBAR REGION WITHOUT NEUROGENIC EMETREIO 09-19-2022 Comment on above: SPINAL STENOSIS, LUM [...] 07-14-2021 Episodic Other aftercare (1 source) Other detention (current) drug therapy; Translations: [OTH [facility]CI CURRENT DRUG THERAPY] Onset: 07-17-2021 Episodic Other [...] Name Value Interpretation Reference Range Facility US aortaon 08-21-2023 US aorta [facility] [address] [place] [address] Ultrasound Report Signed Patient: Erik Morales MR#: [id number] : 1955 Acct:[id number] Age/Sex: 67 / M ADM Date: 08/21/23 Loc: [facility] Room: Type: [facility] Attending Dr: Bianka Garcia SPEECH LANGUAGE PATHOLOGY ASSISTANT-C Ordering Provider: Bianka Garcia APRN Date of [...] Julian Matthews MD08/21/2023 2:21 PM Dictation Location: [place] [address] Tech: Elham Rivera Transcribed By: LUIS 08/21/23 1421 Dictated By: Julian Matthews MD 08/21/23 1419 Signed By: 08/21/23 1421 Normal [facility] XR LUMBAR SPINE 2-3 VIEWSon 06-03-2023 XR LUMBAR SPINE 2-3 VIEWS Interpreted By: Curtis Meléndez, STUDY: XR LUMBAR SPINE 2-3 VIEWS; 06/03/2023 1:42 pm INDICATION: Signs/Symptoms:pain. ACCESSION NUMBER(S): [id number] ORDERING CLINICIAN: CURTIS MELÉNDEZ FINDINGS: AP lateral [...] Curtis Meléndez 06/03/2023 1:56 PM Dictation workstation: [id number] [facility] XR Lumbar spine 2 or 3 Views on 06-03-2023 Interpreted By: Curtis Love, STUDY: XR LUMBAR SPINE 2-3 VIEWS; 06/03/2023 1:42 pm INDICATION: Signs/Symptoms:pain. ACCESSION NUMBER(S): [id number] ORDERING CLINICIAN: CURTIS MELÉNDEZ FINDINGS: AP lateral [...] Curtis Meléndez 06/03/2023 1:56 PM Dictation workstation: [id number] [id number] Curtis Meléndez MD - 06/03/2023 Interpreted By: Curtis Meléndez, STUDY: XR LUMBAR SPINE 2-3 VIEWS; 06/03/2023 1:42 pm INDICATION: Signs/Symptoms:pain. ACCESSION NUMBER(S): [id number] ORDERING CLINICIAN: CURTIS MELÉNDEZ FINDINGS: AP lateral [...] Curtis Meléndez 06/03/2023 1:56 PM Dictation workstation: [id number] [facility] Work Phone: [facility] Work Phone: Radiology Study observation (narrative) [facility] Work Phone: CT chest wo con high reson 0 04-15-2023 CT chest wo con high res [facility] [address] CT Scan Report Signed Patient: Erik Morales MR#: [id number] : 1955 Acct:[id number] Age/Sex: 67 / M ADM Date: 04/14/23 Loc: CT Room: Type: DEP CLI Attending Dr: ISATU Gomez APRN Copies to: Danna Mcdaniel APRN, ACNP-BC Ordering Provider: Danna Mcdaniel APRN, ACNP-BC Date [...] Christopher Cline M.D.04/15/2023 9:21 AM Dictation Location: [place] [address] Transcribed By: [facility] 04/15/23920 Dictated By: Christopher Cline DO 04/15/23 0904 Signed By: 04/15/23920 Normal [facility] XR LUMBAR SPINE 2-3 VIEWSon 02-28-2023 XR LUMBAR SPINE 2-3 VIEWS Interpreted By: Curtis Meléndez, STUDY: XR LUMBAR SPINE 2-3 VIEWS; ; 02/28/2023 1:37 pm INDICATION: Signs/Symptoms:low back pain. ACCESSION NUMBER(S): [id number] ORDERING CLINICIAN: CURTIS MELÉNDEZ FINDINGS: AP lateral [...] Curtis Meléndez 02/28/2023 3:09 PM Dictation workstation: [id number] [facility] Lab Reportson 12-24-2022 Lab Reports [id number] [facility] Patient Educationon 12-24-19 23 Patient [...] Where to find more information ? [employer] [place] [employer]: www.cancer.org ? [place] [employer]: www.auanet.org Contact a health care [...] adds flu (more content not included)... Normal [facility] Physician Orderon 12-23-2022 Physician Order [id number] Normal [facility] Urology Office/Clinic Noteon 12-23-2022 Urology [...] [facility] [address], [place] [address]- [id number] Additional Instructions: 1 yr w/ PSA Patient [...] Dipstick: Negative (more content not included)... Normal [facility] Comment on above: Result Comment: Elec tronically Signed By: Marino SPEAR MD\.br\Date and Time Signed: 12/23/22 12:01 EDT\.br\Electronically Co-Signed By: Skye Miller\.br\Date and Time Co-Signed: 12/23/22 11:59 EDT Post Op (Orthopaedic Surgery )on 11-19-2022 Post Op (Orthopaedic Surgery) Orders Back pain Xray BN Spine, Lumbosacral; 2 or 3 Views; Status:Complete; Done: [id number] 02:21PM Radiologist to Determine Optimal Study : [...] Xray BN Spine, Lumbosacral; 2 or 3 [id number] 02:21PMCurtis Meléndez Test NameResultFlagReference Xray Lumbar Spine AP + Lateral(Report) FINAL REPORT Interpreted by: CURTIS MELÉNDEZ JON, MD 11/19/22 16:41 Patient Name: ERIK MORALES STUDY: SPINE, LUMBOSACRAL; 2 OR 3 VIEWS; ; 11/19/2022 2:21 pm INDICATION: pain M54.9: Back pain. ACCESSION NUMBER(S): [id number] ORDERING CLINICIAN: CURTIS MELÉNDEZ FINDINGS: AP lateral x-rays of the lumbar spine show an L3-4 lateral lumbar fusion with lateral plate and cage configuration. Cage pl (more content not included)... Normal [facility] 11-19-2022 XR Lumbar spine AP and Lateral [facility] Phone: SPINE, LUMBOSACRAL 2 OR 3 EWSon 11-19-2022 SPINE, LUMBOSACRAL 2 OR 3 VIEWS Patient Name: ERIK MORALES STUDY: SPINE, LUMBOSACRAL; 2 OR 3 VIEWS; ; 11/19/2022 2:21 pm INDICATION: pain M54.9: Back pain. ACCESSION NUMBER(S): [id number] ORDERING CLINICIAN: CURTIS MELÉNDEZ FINDINGS: AP lateral [...] above: Performed By: #### B MP #### [address] [id number] Calcium [Mass/Vol] 8.9 mg/dL Normal 8.6 - 10.3 [facility] Comment on above: Performed By: #### B MP #### [address] [id number] Chloride [Moles/Vol] 101 mmol/L Normal 98 - 107 [facility] Comment on above: Performed By: #### B MP #### [address] [id number] Creatinine [Mass/Vol] 1.15 mg/dL Normal 0.50 - 1.30 [facility] Comment on above: Performed By: #### B MP #### [address] [id number] GFR/1.73 sq M.predicted among non-blacks MDRD (S/P/Bld) [Vol rate/Area] 70 mL/min/{1.73_m2} Normal >90 [facility] Comment on above: Result Comment: CALC ULATIONS OF ESTIMATED GFR ARE PERFORMED USING THE 2020 CKD-EPI STUDY REFIT EQUATION WITHOUT THE RACE VARIABLE FOR THE IDMS-TRACEABLE CREATININE METHODS. https://jasn.asnjournals.org/content/early//ASN.3539122 988 Performed By: #### B MP #### [address] [id number] Glucose [Mass/Vol] 106 mg/dL High 74 - 99 [facility] Comment on above: Performed By: #### B MP #### [address] [id number] HCO3 (Bld) [Moles/Vol] 29 mmol/L Normal 21 - 32 [facility] Comment on above: Performed By: #### B MP #### [address] [id number] Potassium [Moles/Vol] 4.5 mmol/L Normal 3.5 - 5.3 [facility] Comment on above: Performed By: #### B MP #### [address] [id number] Sodium [Moles/Vol] 135 mmol/L Low 136 - 145 [facility] Comment on above: Performed By: #### B MP #### [address] [id number] Urea nitrogen [Mass/Vol] 13 mg/dL Normal 6 - 23 [facility] Comment on above: Performed By: #### B MP #### [address] [id number] Daily Progress Note-General Internal Medicineon 11-07-2022 Daily [...] intact. Objective Data: Objective Information: T PRBPMAPSpO2 [id number]/[id number]% Date/Time11/07 8: 8: 8: 8: 21: 8:56 Range(36.7C - 37.1C ) [...] laboratory results: Basic Metabolic Panel Trending View [id number] 10:23:00 06-Nov-2022 05:48:00 Glucose, Knbeo235 H 95 NA135 L 138 K4.5 4.1 [...] discussed extensively with patient, RN and Ortho SPEECH LANGUAGE PATHOLOGY ASSISTANT. Patient verbalized understanding through teach back method. All questions and concerns addressed upon examination. Of note, this documentation is completed using the Dragon Dictation system (voice recognition software). There may be spelling and/or grammatical errors that were not corrected prior to final submission. Plan of Care Reviewed With: Plan of Care Reviewed With: patient Electronic Signatures: Heidy Escobar (BUFFING AND SUEDING MACHINE OPERATOR-AIRCRAFT INSTRUMENT REPAIRER) (Signed 07-Nov-2022 14:59) Authored: Service, Subjective Data, Objective Data, Assessment and Plan, Note Completion Last Updated: 07-Nov-2022 14:59 by Heidy Escobar (BUFFING AND SUEDING MACHINE OPERATOR-AIRCRAFT INSTRUMENT REPAIRER) Normal [facility] Daily Progress Note-Orthopae dicson 11-07-2022 Daily Progress Note-Orthopaedics Service: Orthopaedics Subjective Data: ERIK MORALES is a 67 year old Male who is Hospital Day # 4 and POD #3 for 1. ;2. ;3. ;4. ;5. Patient seen and examined this morning. No acute events overnight. Objective Data: Objective Information: T PRBPMAPSpO2 [id number]/0580019% Date/Time11/06 21: 21: 21: 21: 21: 21:08 [...] Discharge planning to home today Electronic Signatures: LisandroGilda (BUFFING AND SUEDING MACHINE OPERATOR-AIRCRAFT INSTRUMENT REPAIRER) (Signed 07-Nov-2022 08:00) Authored: Service, Subjective Data, Objective Data, Assessment and Plan, Note Completion Abner Maldonado) (Signed 07-Nov-2022 11:31) Co-Signer: Service, Subjective Data, Objective Data, Assessment and Plan, Note Completion Last Updated: 07-Nov-2022 11:31 by Abner Maldonado) Normal [facility] Laboratory - Chemistry and C hemistry - challengeon 11-07-2022 Anion gap [Moles/Vol] 10 mmol/L 10 - 20 [facility] [place] Work Phone: Calcium [Mass/Vol] 8.9 mg/dL 8.6 - 10.[address] [place] Work Phone: Chloride [Moles/Vol] 101 mmol/L 98 - 107 [facility] [place] Work Phone: CO2 [Moles/Vol] 29 mmol/L 21 - 32 -[place] [facility] [place] Work Phone: Creatinine [Mass/Vol] 1.15 mg/dL See Below [facility] [place] Work Phone: Comment on above: Reference Range: 0.5 0 - 1.30 Glucose [Mass/Vol] 106 mg/dL above high threshold 74 - 99 -[facility] [place] Work Phone: Potassium [Moles/Vol] 4.5 mmol/L 3.5 - 5.3 [facility] [place] Work Phone: Sodium [Moles/Vol] 135 mmol/L below low threshold 136 - 145 -[place] [facility] [place] Work Phone: Urea nitrogen [Mass/Vol] 13 mg/dL 6 - 23 [facility] Work Phone: No Panel Informationon 11-07 70 {mL/min/1.73m2} >90 [facility] Work Phone: Comment on above: CALCULATIONS OF MEGAN MATED GFR ARE PERFORMED USING THE 2020 CKD-EPI STUDY REFIT EQUATION WITHOUT THE RACE VARIABLE FOR THE IDMS-TRACEABLE CREATININE METHODS.https://jasn.asnjournals.org/content/early//ASN .7314710702 Order Reconciliationon 11-07 Order Reconciliation Page 1 Discharge Reconciliation Document Reconciliation Type: Discharge requested on behalf of Gilda Mcmahon (Advanced Practice Nurse-Admit) done by Gilda Mcmahon (BUFFING AND SUEDING MACHINE OPERATOR-[facility]) Discharge - Reconciliation: 07-Nov-2022 09:21 by: Gilda Mcmahon (BUFFING AND SUEDING MACHINE OPERATOR-[facility]) Home Medications EnteredHOME MEDICATIONS AT DISCHARGE [...] oral tablet is not required Potassium Chloride (Vix-Tzml-Auq 10) 10 mEq oral tablet, extended release 1 tab(s) orally once a day 21-Oct-2022 13:59 Potassium Chloride (Wvt-Jstd-Kmg 10) 10 mEq oral tablet, extended release 1 tab(s) orally once a day 21-Oct-2022 13:59 Potassium Chloride (Kpy-Ypkv-Cxx 10) 10 mEq oral tablet, extended release is continued as Potassium Chloride (Zny-Stfv-Eak 10) 10 mEq oral tablet, extended release [...] Lactated Ringers (more content not included)... Normal [facility] Rehab Note-occupational therapy manager rohit 11-07-2022 Rehab Note-occupational therapy Rehab: Info: Mode of Treatmentoccupational therapy Time IN07:31 Time OUT08:00 Total Treatment [id number] Patient in ... at end of sessionchair; [...] Mobility/Tone: Bed Mobility Assessment/Interventionssu pine to sit Fbyhqz-wo-Jww Armstrong (Bed Mobility)standby assist; verbal cues; nonverbal cues (demo/gesture) Comment, Bed MobilityEducated pt on log roll technique to maintain spinal precautions. Simulated home s/u and transferred towards right side. Transfer Assessment/Interventionssi t to stand transfer; stand to sit transfer; bed to chair transfer; toilet transfer; shower transfer Comment, TransfersMin verbal cues for hand placement with sit <>stand transfers. Bed-Chair Armstrong (Transfers)standby assist Bed-Chair Assistive Device (Transfers)walker, front-wheeled Sit-Stand Armstrong (Transfers)standby assist; Multiple sit <>stand transfers performed from various surfaces and surface heights. Pt benefits from elevated surfaces however is able to complete transfers from standard surface heights. Sit-Stand Assistive Device (Transfers)walker, front-wheeled Stand-Sit Armstrong (Transfers)standby assist Stand-Sit Assistive Device (Transfers)walker, front-wheeled Shower Armstrong (Transfers)Pt reports having shower chair at home which he has used prior to admission. Verbal education provided on safe transfer techniques. Pt also educated to have someone present with transfer for fall prevention. Toilet Armstrong (Transfers)standby assist Toilet Assistive Device (Transfer)grab bars/safety [...] Assessment/Interventionlow er body dressing; toileting; grooming; bathing Armstrong Level (Bathing)Pt educated on using a roofing laborer to complete LB bathing vs purchasing a LH sponge. Verbal and visual education provided on technique from seated position on shower chair. Pt verbalized understanding. Armstrong Level (Lower Body Dressing)don; pants/bottoms; shoes/slippers Assistive Devices (Lower Body Dressing)roofing laborer Comment (Lower Body Dressing)Reviewed education on use of roofing laborer. Wilfredo pants while seated EOB with fair (+) balance. Pt donned LB clothing with SBA. Educated pt on how to use roofing laborer to wilfredo slip on shoes. Pt reports brother can also assist with donning shoes. Pt educated to not walk in tedhose only, always wear shoes or non-slip socks Armstrong Level (Grooming)standby assist Position (Grooming)standing Armstrong Level (Toileting)standby assist Position (Toileting)sitting Skilled BADL Treatment/Interventionadap tive equipment training; BADL process/adaptation training; compensatory training; energy conservation Motor: Zpa-in-Itgqb (Balance)F+ Standing, Static (Balance)F+ Standing, Dynamic (Balance)F+ [...] Score20 Short Term Goals: Functional Transfer: Established [id number]-2906 Functional Transfer: Goal Detailspt will transfer to bed ,chair, toilet with modified indep Functional Transfer: Time Frame for Go (more content not included)... Normal [facility] Rehab Note-physical therapyo n 11-07-2022 Rehab Note-physical therapy Rehab: Info: Disciplinephysical therapist Mode of Treatmentphysical therapy Time IN08:16 Time OUT08:48 Total Treatment [id number] Patient in ... at end of sessionchair; [...] brace in place. PT placed hands over gas welder on walker to cue pt of his [...] Score18 Short Term Goals: Bed Mobility: Date Gihrwnithga84-Shh-2892 Bed Mobility: Armstrong Level Goalmodified independent; supine <> sidelying <> sitting Transfer: Established [id number]-6220 Transfer: Transfer Type Iaslmlv-ld-djpzu/chair-to- bed; wqk-hz-zvldv/klymv-ck-cup Transfer: Armstrong Level Goalmodified independent Transfer: Assistive Device Goalrolling walker Gait: Established [id number]-Ogj-8966 Gait: Armstrong Level Goalmodified independent Gait: Assistive Device Goalrolling walker Gait: Distance Psyb210' Education: Learnerpatient Barriers to Learningno barrier Methodverbal [...] home Outcome Summary: Predicted Duration of Therapy Iqvzqxdaxpun33 days Progress: Physical Therapyprogress toward functional goals as expected Therapy Frequency (PT Eval)2 times/day Predicted Duration of Therapy Hutfsjufiamo21 days DC Recommendations: Discharge Recommendation (PT Eval)Pt would benefit from [facility] Electronic Signatures: Daniela Scott (PT) (Signed 07-Nov-2022 15:34) Co-Signer: Info, Mobility/Tone, Outcomes Tools, Short Term Goals, Education, Outcome Summary, DC Recommendations Fior Velez (SPT) (Signed 07-Nov-2022 13:43) Authored: Info, Mobility/Tone, Outcomes Tools, Short Term Goals, Education, Outcome Summary, DC Recommendations Last Updated: 07-Nov-2022 15:34 by Daniela Scott (PT) Normal [facility] BASIC METABOLIC PANELon 09-1 Anion gap [Moles/Vol] 9 mmol/L Low 10 - 20 [facility] Comment on above: Performed By: #### B MP #### [address] [id number] Calcium [Mass/Vol] 8.6 mg/dL Normal 8.6 - 10.3 [facility] Comment on above: Performed By: #### B MP #### [address] [id number] Chloride [Moles/Vol] 105 mmol/L Normal 98 - 107 [facility] Comment on above: Performed By: #### B MP #### [address] [id number] Creatinine [Mass/Vol] 1.37 mg/dL High 0.50 - 1.30 [facility] Comment on above: Performed By: #### B MP #### [address] [id number] GFR/1.73 sq M.predicted among non-blacks MDRD (S/P/Bld) [Vol rate/Area] 57 mL/min/{1.73_m2} Abnormal >90 [facility] Comment on above: Result Comment: CALC ULATIONS OF ESTIMATED GFR ARE PERFORMED USING THE 2020 CKD-EPI STUDY REFIT EQUATION WITHOUT THE RACE VARIABLE FOR THE IDMS-TRACEABLE CREATININE METHODS. https://jasn.asnjournals.org/content/early//ASN.3489424 988 Performed By: #### B MP #### [address] [id number] Glucose [Mass/Vol] 95 mg/dL Normal 74 - 99 [facility] Comment on above: Performed By: #### B MP #### [address] [id number] HCO3 (Bld) [Moles/Vol] 28 mmol/L Normal 21 - 32 [facility] Comment on above: Performed By: #### B MP #### [address] [id number] Potassium [Moles/Vol] 4.1 mmol/L Normal 3.5 - 5.3 [facility] Comment on above: Performed By: #### B MP #### [address] [id number] Sodium [Moles/Vol] 138 mmol/L Normal 136 - 145 [facility] Comment on above: Performed By: #### B MP #### [facility] [address] [place], [place] [id number] Urea nitrogen [Mass/Vol] 14 mg/dL Normal 6 - 23 [facility] Comment on above: Performed By: #### B MP #### [facility] [address] [place], [place] [id number] Daily Progress Note-General Internal Medicineon 11-06-2022 Daily [...] intact. Objective Data: Objective Information: T PRBPMAPSpO2 Value37.48483997/049856% Date/Time11/06 8: 8: 8: 8: 8: 8:18 Range(36.2C - 37.4C ) (63 - 79 ) (16 - 18 ) (104 - 132 )/ (58 - 77 ) (76 - 97 ) (94% - 96% ) Highest temp of 37.4 C was recorded at 11/05 19:08 Pain reported at 11/06 7:23: sleeping ---- Intake and Output ----- Mn/Dy/Year TimeIntakeOutputNet Nov 06, 2022 6:00 [id number] Nov 05, 2022 10:00 [id number] Nov 05, 2022 2:00 [id number] The Intake and Output Totals for the last 24 hours are: IntakeOutputNet [id number] Physical Exam Narrative: Physical Exam: Constitutional: awake/alert/oriented [...] discussed extensively with patient, RN and Ortho SPEECH LANGUAGE PATHOLOGY ASSISTANT. Patient verbalized understanding through teach back method. All questions and concerns addressed upon examination. Of note, this documentation is completed using the Playroom Dictation system (voice recognition software). There may be spelling and/or grammatical errors that were not corrected prior to final submission. Plan of Care Reviewed With: Plan of Care Reviewed With: patient Elec (more content not included)... Normal [facility] Daily Progress Note-Orthopae dicson 11-06-2022 Daily Progress Note-Orthopaedics Service: Orthopaedics Subjective Data: ERIK MORALES is a 67 year old Male who is Hospital Day # 3 and POD #2 for 1. ;2. ;3. ;4. ;5. Overnight Events: Patient had an uneventful night. Objective Data: Objective Information: T PRBPMAPSpO2 Value37.51848945/811112% Date/Time11/06 8: 8: 8: 8: 8: 8:18 Range(36.2C - 37.4C ) (63 - 79 ) (16 - 18 ) (104 - 132 )/ (58 - 77 ) (76 - 97 ) (94% - 96% ) Highest temp of 37.4 C was recorded at 11/05 19:08 Pain reported at 11/06 7:23: sleeping ---- Intake and Output ----- Mn/Dy/Year TimeIntakeOutputNet Nov 06, 2022 6:00 [id number] Nov 05, 2022 10:00 [id number] Nov 05, 2022 2:00 [id number] The Intake and Output Totals for the last 24 hours are: IntakeOutputNet [id number] T PRBPMAPSpO2 [id number]/408362% Date/Time11/06 8: 8: 8: 8: 8: 8:18 [...] bed -home today Electronic Signatures: Derrick Cunningham (BUFFING AND SUEDING MACHINE OPERATOR-AIRCRAFT INSTRUMENT REPAIRER) (Signed 06-Nov-2022 09:07) Authored: Service, Subjective Data, Objective Data, Assessment and Plan, Note Completion Last Updated: 06-Nov-2022 09:07 by Derrick Cunningham (BUFFING AND SUEDING MACHINE OPERATOR-AIRCRAFT INSTRUMENT REPAIRER) Normal [facility] Discharge Lxvzwyg3yb 023 Discharge Profile2 Discharge Orders: Anticipated Discharge Date: Anticipated Discharge Eelg55-Wto-5693 Anticipated Discharge Time12:00 Problem List: Admitting Dx: [...] Review of Medication Reconciliation and Orders Completedby BUFFING AND SUEDING MACHINE OPERATOR Reviewing ProviderFAINA Dwyer at 07-Nov-2022 09:17:40 Appointments: Follow-Up Appointment 01: Physician/Dept/ServiceDr. Meléndez Reason for Referralback Call to Schedule in2 weeks, please call ahead and schedule appointment Dbybldmk2873 Transportation [facility] Phone [phone] Electronic Signatures: Gilda Mcmahon (JESSICA-AIRCRAFT INSTRUMENT REPAIRER) (Signed 07-Nov-2022 09:17) Authored: Discharge Orders, Home Care Orders, Provider FINAL REVIEW of Orders, Appointments, Gold Form - Sort Supervisor Summary Last Updated: 07-Nov-2022 09:17 by Gilda Mcmahon (BUFFING AND SUEDING MACHINE OPERATOR-AIRCRAFT INSTRUMENT REPAIRER) Normal [facility] Laboratory - Chemistry and C hemistry - challengeon 11-06-2022 Anion gap [Moles/Vol] 9 mmol/L below low threshold 10 - 20 [facility] Work Phone: Calcium [Mass/Vol] 8.6 mg/dL 8.6 - 10.[address] [facility] Work Phone: Chloride [Moles/Vol] 105 mmol/L 98 - 107 [facility] Work Phone: CO2 [Moles/Vol] 28 mmol/L 21 - 32 [facility] Work Phone: Creatinine [Mass/Vol] 1.37 mg/dL above high threshold See Below -[facility] [place] Work Phone: Comment on above: Reference Range: 0.5 0 - 1.30 Glucose [Mass/Vol] 95 mg/dL 74 - [address] [address] [facility] [place] Work Phone: Potassium [Moles/Vol] 4.1 mmol/L 3.5 - 5.3 -[facility] [place] Work Phone: Sodium [Moles/Vol] 138 mmol/L 136 - [address] [facility] [place] Work Phone: Urea nitrogen [Mass/Vol] 14 mg/dL 6 - 23 [facility] [place] Work Phone: MAGNESIUMon 11-06-2022 Magnesium [Mass/Vol] 2.06 mg/dL Normal 1.60 - 2.40 [facility] Comment on above: Performed By: #### M G #### [address] [id number] Magnesium, Serumon Magnesium [Mass/Vol] 2.06 mg/dL See Below - [facility] [place] Work Phone: Comment on above: Reference Range: 1.6 0 - 2.40 No Panel Informationon 11-06 57 {mL/min/1.73m2} Abnormal >90 -[facility] [place] Work Phone: Comment on above: CALCULATIONS OF MEGAN MATED GFR ARE PERFORMED USING THE 2020 CKD-EPI STUDY REFIT EQUATION WITHOUT THE RACE VARIABLE FOR THE IDMS-TRACEABLE CREATININE METHODS.https://jasn.asnjournals.org/content//ASN .2049430140 Rehab Note-occupational therapy manager apyon 11-06-2022 Rehab Note-occupational therapy Rehab: Info: Mode of Treatmentoccupational therapy Time IN10:20 Time OUT10:58 Total Treatment Wqnirtr03 Patient in ... at end of sessionchair; [...] sitting on sofas and armless chairs. Sit-Stand Armstrong (Transfers)contact guard Sit-Stand Assistive Device (Transfers)walker, front-wheeled Stand-Sit Armstrong (Transfers)contact guard Stand-Sit Assistive Device (Transfers)walker, front-wheeled Toilet Armstrong (Transfers)contact guard Toilet Assistive Device (Transfer)grab bars/safety [...] alignment. UB bathing and dressing with SBA Armstrong Level (Lower Body Dressing)don; pants/bottoms; shoes/slippers; minimum assist (75% patient effort) Assistive Devices (Lower Body Dressing)roofing laborer Comment (Lower Body Dressing)Pt educated on use of roofing laborer and sock aid for LB dressing with fair understanding and return demonstration. Armstrong Level (Grooming)contact guard Comment (Grooming)Pt performed G/H tasks in stance at sink with fair balance x 2 1/2 min Motor: Kgs-td-Xtrfn (Balance)fair balance Standing, Static (Balance)fair balance Standing, [...] Score18 Short Term Goals: Functional Transfer: Established Ikhs47-Glw-1104 Functional Transfer: Goal Detailspt will transfer to bed ,chair, toilet with modified indep Functional Transfer: Time Frame for Goal2 wks Balance: Established Balance: Goal DetailsPt will demo fair + dyn std balance with ADLS Balance: Time Frame for Goal2 wks Upper Body Dressing: Established Upper Body Dressing: Armstrong Level Goalstand-by assist Upper Body Dressing: Time Frame for Goal2 wks Lower Body Dressing: Established Lower Body Dressing: Armstrong Level Goalminimum assist (75% patients effort) Lower [...] therapy Time IN13:41 Time OUT14:07 Total Treatment Irzgrpo00 Patient in ... at end of sessionbed, [...] Score18 Short Term Goals: Bed Mobility: Date Vdvoffpcvns83-Gme-7999 Bed Mobility: Armstrong Level Goalmodified independent; supine <> sidelying <> sitting Transfer: Established Bsue63-Vua-9975 Transfer: Transfer Type Fqhbcgq-ky-plqfk/chair-to- bed; lbc-wv-opnry/numoh-av-tvj Transfer: Armstrong Level Goalmodified independent Transfer: Assistive Device Goalrolling walker Gait: Established Utin74-Bvf-4052 Gait: Armstrong Level Goalmodified independent Gait: Assistive Device Goalrolling walker Gait: Distance Fofe648' Education: Learnerpatient Barriers to Learningno barrier Methodverbal [...] home Outcome Summary: Predicted Duration of Therapy Qbwbhfwzuwxa47 days Progress: Physical Therapyprogress toward functional goals as expected Therapy Frequency (PT Eval)2 times/day Predicted Duration of Therapy Hkytsyiuzptg73 days DC Recommendations: Discharge Recommendation (PT Eval)Pt would benefit from [facility] Electronic Signatures: Daniela Scott (PT) (Signed 07-Nov-2022 03:43) Co-Signer: Info, Mobility/Tone, Motor, Sensory, Outcomes Tools, Short Term Goals, Education, Outcome Summary, DC Recommendations Fior Velez (SPT) (Signed 06-Nov-2022 14:31) Authored: Info, Mobility/Tone, Motor, Sensory, Outcomes Tools, Short Term Goals, Education, Outcome Summary, DC Recommendations Last Updated: 07-Nov-2022 03:43 by Danieal Scott (PT) [facility] Rehab Note-physical therapy Rehab: Info: Mode of Treatmentphysical therapy Time IN09:36 Time OUT10:17 Total Treatment Nlbnwaf23 Patient in ... at end of sessionchair; [...] Score18 Short Term Goals: Bed Mobility: Date Ovwcgyrttqs98-Dzb-1406 Bed Mobility: Armstrong Level Goalmodified independent; supine <> sidelying <> sitting Transfer: Established Hqce46-Ogz-0721 Transfer: Transfer Type Hsenfqj-eb-yhcth/chair-to- bed; ool-ay-dxzvu/bojno-sh-mko Transfer: Armstrong Level Goalmodified independent Transfer: Assistive Device Goalrolling walker Gait: Established Kkvs61-Dtc-6949 Gait: Armstrong Level Goalmodified independent Gait: Assistive Device Goalrolling walker Gait: Distance Txsa054' Education: Learnerpatient Methodverbal Topicrehab plan of care; precautions; discharge recommendations including destination and/or equipment; fall prevention Education - Topicproper use of FWW for transfers and gait to reduce the risk of fall, reviewed spinal precautions and body mechanics for getting in and out of bed, concerns for discharging home Outcome Summary: Predicted Duration of Therapy Dldaragamflh30 days Progress: Physical Therapyprogress towards functional goals is fair Therapy Frequency (PT Eval)2 times/day Predicted Duration of Therapy Ydnckizuzaor12 days DC Recommendations: Discharge Recommendation (PT Eval)Pt would benefit from [facility] Electronic Signatures: Daniela Scott (PT) (Signed 07-Nov-2022 03:43) Co-Signer: Info, Mobility/Tone, Outcomes Tools, Short Term Goals, Education, Outcome Summary, DC Recommendations Fior Velez (SPT) (Signed 06-Nov-2022 14:30) Authored: Info, Mobility/Tone, Outcomes Tools, Short Term Goals, Education, Outcome Summary, DC Recommendations Last Updated: 07-Nov-2022 03:43 by Daniela Scott (PT) Normal [facility] BASIC METABOLIC PANELon 09- Anion gap [Moles/Vol] 12 mmol/L Normal 10 - 20 [facility] Comment on above: Performed By: #### B MP #### [address] [id number] Calcium [Mass/Vol] 8.8 mg/dL Normal 8.6 - 10.3 [facility] Comment on above: Performed By: #### B MP #### [address] [id number] Chloride [Moles/Vol] 101 mmol/L Normal 98 - 107 [facility] Comment on above: Performed By: #### B MP #### [address] [id number] Creatinine [Mass/Vol] 1.75 mg/dL High 0.50 - 1.30 [facility] Comment on above: Performed By: #### B MP #### [address] [id number] GFR/1.73 sq M.predicted among non-blacks MDRD (S/P/Bld) [Vol rate/Area] 42 mL/min/{1.73_m2} Abnormal >90 [facility] Comment on above: Result Comment: CALC ULATIONS OF ESTIMATED GFR ARE PERFORMED USING THE 2020 CKD-EPI STUDY REFIT EQUATION WITHOUT THE RACE VARIABLE FOR THE IDMS-TRACEABLE CREATININE METHODS. https://jasn.asnjournals.org/content/early/ASN.2298208 988 Performed By: #### B MP #### [address] [id number] Glucose [Mass/Vol] 131 mg/dL High 74 - 99 [facility] Comment on above: Performed By: #### B MP #### [address] [id number] HCO3 (Bld) [Moles/Vol] 26 mmol/L Normal 21 - 32 [facility] Comment on above: Performed By: #### B MP #### [address] [id number] Potassium [Moles/Vol] 4.0 mmol/L Normal 3.5 - 5.3 [facility] Comment on above: Performed By: #### B MP #### [address] [id number] Sodium [Moles/Vol] 135 mmol/L Low 136 - 145 [facility] Comment on above: Performed By: #### B MP #### [address] [id number] Urea nitrogen [Mass/Vol] 14 mg/dL Normal 6 - 23 [facility] Comment on above: Performed By: #### B MP #### [address] [id number] CBCon 11-05-2022 Erythrocyte distribution width (RBC) [Ratio] 13.4 % Normal 11.5 - 14.5 [facility] Comment on above: Performed By: #### C BC #### [address] [id number] Hematocrit (Bld) [Volume fraction] 43.6 % Normal 41.0 - 52.0 [facility] Comment on above: Performed By: #### C BC #### [address] [id number] Hemoglobin (Bld) [Mass/Vol] 14.3 g/dL Normal 13.5 - 17.5 [facility] Comment on above: Performed By: #### C BC #### [address] [id number] MCHC (RBC) [Mass/Vol] 32.8 g/dL Normal 32.0 - 36.0 [facility] Comment on above: Performed By: #### C BC #### [address] [id number] MCV (RBC) [Entitic vol] 96 fL Normal 80 - 100 [facility] Comment on above: Performed By: #### C BC #### [address] [id number] Platelets (Bld) [#/Vol] 244 10*3/uL Normal 150 - 450 [facility] Comment on above: Performed By: #### C BC #### [address] [id number] RBC 4.54 x10E12/L Normal 4.50 - 5.90 [facility] Comment on above: Performed By: #### C BC #### [address] [id number] WBC (Bld) [#/Vol] 16.4 10*3/uL High 4.4 - 11.3 [facility] Comment on above: Performed By: #### C #### [address] [id number] Daily Progress Note-General Internal Medicineon 11-05-2022 Daily [...] intact. Objective Data: Objective Information: T PRBPMAPSpO2 Value36.33693414/451592% Date/Time11/05 7: 0: 0: 7: 7: 7:33 [...] ----- Mn/Dy/Year TimeIntakeOutputNet Nov 05, 2022 6:00 [id number] Nov 04, 2022 10:00 [id number] Nov 04, 2022 2:00 [id number] The Intake and Output Totals for the last 24 hours are: IntakeOutputNet [id number] Physical Exam Narrative: Physical Exam: Constitutional: awake/alert/oriented [...] night. Objective Data: Objective Information: T PRBPMAPSpO2 Value36.79933661/452638% Date/Time11/05 7: 0: 0:409 7: 7: 7:33 Range(36.1C - 36.8C ) [...] ----- Mn/Dy/Year TimeIntakeOutputNet Nov 05, 2022 6:00 [id number] Nov 04, 2022 10:00 [id number] Nov 04, 2022 2:00 [id number] The Intake and Output Totals for the last 24 hours are: IntakeOutputNet [id number] T PRBPMAPSpO2 Value36.37610853/336742% Date/Time11/05 7: 0: 0: 7: 7: 7:33 [...] out of bed Electronic Signatures: Derrick Cunningham (BUFFING AND SUEDING MACHINE OPERATOR-AIRCRAFT INSTRUMENT REPAIRER) (Signed 05-Nov-2022 08:16) Authored: Service, Subjective Data, Objective Data, Assessment and Plan, Note Completion Curtis Maldonado) (Signed 05-Nov-2022 09:30) Co-Signer: Service, Subjective Data, Objective Data, Assessment and Plan, Note Completion Last Updated: 05-Nov-2022 09:30 by Curtis Maldonado) [facility] Laboratory - Chemistry and C hemistry - challengeon 11-05-2022 Anion gap [Moles/Vol] 12 mmol/L 10 - 20 -[facility] [place] Work Phone: Calcium [Mass/Vol] 8.8 mg/dL 8.6 - 10.[address] [facility] [place] Work Phone: Chloride [Moles/Vol] 101 mmol/L 98 - 107 [facility] [place] Work Phone: CO2 [Moles/Vol] 26 mmol/L 21 - 32 -[facility] [place] Work Phone: Creatinine [Mass/Vol] 1.75 mg/dL above high threshold See Below -[facility] [place] Work Phone: Comment on above: Reference Range: 0.5 0 - 1.30 Glucose [Mass/Vol] 131 mg/dL above high threshold 74 - 99 -[facility] [place] Work Phone: Potassium [Moles/Vol] 4.0 mmol/L 3.5 - 5.3 -[facility] [place] Work Phone: Sodium [Moles/Vol] 135 mmol/L below low threshold 136 - 145 -[facility] [place] Work Phone: Urea nitrogen [Mass/Vol] 14 mg/dL 6 - 23 [facility] [place] Work Phone: [phone] Laboratory - Hematology and Cell countson 11-05-2022 Erythrocyte distribution width (RBC) [Ratio] 13.4 % See Below [facility] Work Phone: Comment on above: Reference Range: 11. 5 - 14.5 Hematocrit (Bld) [Volume fraction] 43.6 % See Below [facility] [place] Work Phone: [phone] Comment on above: Reference Range: 41. 0 - 52.0 Hemoglobin (Bld) [Mass/Vol] 14.3 g/dL See Below [facility] [place] Work Phone: [phone] Comment on above: Reference Range: 13. 5 - 17.5 MCHC (RBC) [Mass/Vol] 32.8 g/dL See Below [facility] Work Phone: [phone] Comment on above: Reference Range: 32. 0 - 36.0 MCV (RBC) [Entitic vol] 96 fL 80 - 100 [facility] Work Phone: [phone] Platelets (Bld) [#/Vol] 244 10*3/uL 150 - 450 [facility] Work Phone: [phone] RBC (Bld) [#/Vol] 4.54 {x10E12/L} See Below [facility] [place] Work Phone: [phone] Comment on above: Reference Range: 4.5 0 - 5.90 WBC (Bld) [#/Vol] 16.4 10*3/uL above high threshold 4.4 - 11.3 [facility] [place] Work Phone: [phone] No Panel Informationon 11-05 42 {mL/min/1.73m2} Abnormal >90 [facility] [place] Work Phone: Comment on above: CALCULATIONS OF MEGAN MATED GFR ARE PERFORMED USING THE 2020 CKD-EPI STUDY REFIT EQUATION WITHOUT THE RACE VARIABLE FOR THE IDMS-TRACEABLE CREATININE METHODS.https://jasn.asnjournals.org/content/early/ASN .3117932440 OT Evaluation v2-occupationa l therapyon 11-05-2022 OT Evaluation v2-occupational therapy Rehab: Info: Mode of Treatmentoccupational therapy Time IN07:41 Time OUT08:05 Total Treatment Minutes0 Patient Effortgood Symptoms Noted During/After Treatmentnone Patient Profile Reviewedyes Onset of Illness/Injury or Date of Rvzuvsu83-Wdi-4653 Reason for ReferralL2-3, L3-4 lami, L3-4 lateral [...] Static (Balance)good balance Sitting, Dynamic (Balance)good balance Csk-nt-Uvdgc (Balance)good balance Standing, Static (Balance)fair balance Standing, Dynamic (Balance)fair balance Sensory: Pre-Treatment Pain Rating3/10 Post-Treatment Pain Rating3/10 Comment, Pre/Post Treatment Painlow back pain Sensory General Assessmentno sensation deficits identified Impression: Criteria for Skilled Therapeutic Interventions Met (OT Eval)treatment indicated OT DiagnosisADL impairment Rehab Potential (OT Eval)good, to achieve stated therapy goals Therapy Frequency (OT Eval)2 times/wk Predicted Duration of Therapy Tntokzbtyztk93 days Functional Limitations in Following Categoriesself-care Planned [...] Score16 Short Term Goals: Functional Transfer: Established Jvyp75-Qbj-1515 Functional Transfer: Goal Detailspt will transfer to bed ,chair, toilet with modified indep Functional Transfer: Time Frame for Goal2 wks Balance: Established Balance: Goal DetailsPt will demo fair + dyn std balance with ADLS Balance: Time Frame for Goal2 wks Upper Body Dressing: Established Upper Body Dressing: Armstrong Level Goalstand-by assist Upper Body Dressing: Time Frame for Goal2 wks Lower Body Dressing: Established Lower Body Dressing: Armstrong Level Goalminimum assist (75% patients effort) Lower Body Dressing: Time Frame for Goal2 wks Following Precautions: Established Following Precautions: Goal Detailspt will verbalize and adhere to spinal precautions indep Following Precautions: Time Frame for Goal2 wks Education: Learnerpatient Barriers to Learningno barrier Methoddemonstration; verbal Outcome Evaluation0=unable to meet; needs instruction Topicrehab plan of care DC Recommendations: Discharge Recommendationrecommend low intensity OT at md to address impairments in ADLS and safety [...] Reviewedyes Onset of Illness/Injury or Date of Gvvcezf78-Uvw-2731 Reason for ReferralSurgery 11.04.2022 L3-4 lateral interbody fusion, L2-3 and L3-4 laminectomy and posterior lateral fusion, L3-4 lateral instrumentation, thermal ablation of median nerve to L2-3 and L3-4 Referring PhysicianPT/OT 11.04.2022 Ángela Lumbosacral brace up Spinal precautions Patient/Family/Caregiver Comments/ObservationsServi bari provided by Alta Velez, SPT with direct supervision and guidance from Daniela Scott PT General Observations of PatientPt supine in [...] Static (Balance)good balance Sitting, Dynamic (Balance)fair balance Bwm-hu-Bqpqr (Balance)fair + Standing, Static (Balance)fair + Standing, [...] (PT Eval)2 times/day Predicted Duration of Therapy Adebtlvzivsf04 days Outcomes Tools: Turning from your back [...] 11-05-2022 Rehab Note-physical therapy Rehab: Info: Disciplinephysical therapy director Mode of Treatmentphysical therapy Time IN14:19 Time OUT14:44 Total Treatment Clwnsbt90 Patient in ... at end of sessionbed, [...] Score18 Short Term Goals: Bed Mobility: Date Rnzkixqyuaq78-Hnf-1066 Bed Mobility: Armstrong Level Goalmodified independent; supine <> sidelying <> sitting Transfer: Established Jyyr07-Xvy-7994 Transfer: Transfer Type Ioistat-sq-qozfw/chair-to- bed; upz-wg-buwzc/hgvgs-va-epb Transfer: Armstrong Level Goalmodified independent Transfer: Assistive Device Goalrolling walker Gait: Established Atbc01-Rkj-9691 Gait: Armstrong Level Goalmodified independent Gait: Assistive Device Goalrolling walker Gait: Distance Gsck378' Education: Learnerpatient; family member Methodverbal Outcome Evaluation1=partially meets; needs review Education - Topicpt able to recall spinal precautions , Able to don and doff TLSO brace Outcome Summary: Progress: Physical Therapyprogress toward functional goals as expected Electronic Signatures: Kelsea Cueto (EMBLEM MAKER) (Signed 05-Nov-2022 16:34) Authored: Info, Mobility/Tone, Sensory, [...] applied here Patient Transferred from Other Facility ([facility], [facility],etc)no Patient Identity Verified Bypatient ID Band [...] AlertFor Ebola-like Symptoms: Isolate Patient and Notify Provider/Hotel Maintenance Engineer For Contact: Notify Provider/Hotel Maintenance Engineer Advance Directive: Advance Directive/DNRyes Advance Directive typeLiving Will, Durable Power of Ecd for Healthcare Living Will AvailabilityLiving Will not available now Living Will Cbzmzgvmr59-Pir-2735 Durable Power of Ecd AvailabilityDPOA not available now Durable Power of Ecd Mhclwrysj97-Eoa-3304 Durable Power of Ecd contact (name and number)Dana [phone] [place] Fall Screen: History of falling (immediate [...] instruction; skill demonstration Cultural Considerationsnone Developmental Considerationsnone Sabianist Considerationsnone Learning Assessment (Other Learner): Other learner availableno Depression Screen: During the past month, have you often been bothered by feeling down, depressed or hopelessno During the past month, have you often had little interest or pleasure in doing thingsno Have you had any thoughts of harming anyone elseno [place] Suicide: Risk Screen Not Applicable/Able to Answerable to be screened In the Past Month: Have you wished you were or could go to sleep and not wake upno In the Past Month: Have you had any actual thoughts of killing yourselfno Lifetime: Have you ever done, started to do, or prepared to do anything to end your lifeno [place] Suicide Risknegative Adult Nutrition Screen: Have you [...] nitroglycerin: Unknown Objective: Objective Information: T PRBPMAPSpO2 Value36.26117735/4781287% Date/Time11/04 15: 15: 15: 15: 15: 15:32 [...] included)... Normal [facility] Discharge Planning Vrbo8ox 0 11-04-2022 Discharge Planning Note2 Discharge Planning: Planned Dispositionhome Discharge Destinationhome [place] [facility] Explainedyes Anticipated Discharge Yffz35-Jut-0449 Discharge Planning 11/04/22 @ 1508 hours: Received [...] he is independent of ADLs and IADLs EMBLEM MAKER and does not use AD. Drives. Pt plans to dc home. CT team will continue to monitor care progression and potential dc needs. Darya Jay RN TCC 11/06/22 0900 TCC UPDATE: [facility] score is PT (18) OT (16), [...] Jones RN TCC. Assessment: Discharge Planning Assessment Gdcf84-Gsd-2325 Primary Contact Name and NumberDale (brother) [phone] Lives Withsibling(s) Living Arrangementshouse PCPHoy [facility] Anticipated at Transitionnone [...] 06-Nov-2022 15:26 by Sultana Jones (CLIN COOR) [facility] Order Reconciliationon 11-04 Order Reconciliation Page 1 Admission Reconciliation Document Reconciliation Type: Admission requested on behalf of Heidy Escobar (Advanced Practice Nurse) done by Heidy Escobar ([facility]) Admission - Partial Reconciliation: 04-Nov-2022 15:50 by: Heidy Escobar ([facility]) Admission - Reconciliation: 04-Nov-2022 15:50 by: Heidy Escobar ([facility]) Home MedicationsEnteredLast Dose TakenReconciled with current Order Reconciliation Comment/ Additional Information atorvastatin 40 mg oral tablet 1 tab(s) orally once a day (at bedtime) PM Atorvastatin Tablet (LIPITOR)DOSE = 40 mg Oral At Bedtimeatorvastatin 40 mg oral tablet continued as the inpatient order Atorvastatin baclofen 10 mg oral tablet 1 tab(s) orally once a kzy54-Ngv-603388-Kup-7592 PM Reviewed and Held Eliquis 5 mg oral tablet 1 tab(s) orally 2 times a day---AWARE TO HOLD PRIOR TO PROCEDURE Reviewed and Held furosemide 20 mg oral tablet 1 tab(s) orally once a aht51-Lhd-355601-Zai-4021 AM Furosemide Tablet (LASIX)DOSE = 20 mg Oral Dailyfurosemide 20 mg oral tablet is continued and suspended as Furosemide lisinopril 20 mg oral tablet 1 tab(s) orally once a ppj59-Nwf-833540-Jqm-0066 PM Lisinopril Tablet (PRINIVIL, ZESTRIL)DOSE = 20 mg Oral Dailylisinopril 20 mg oral tablet is continued and suspended as Lisinopril metoprolol tartrate 25 mg oral tablet 1 tab(s) orally 2 times a day---AWARE TO TAKE MORNING OF PROCEDUE WITH A SIP OF [id number] 3 02:30 AM Reviewed and Held Multiple Vitamins oral tablet 1 tab(s) orally once a [id number]-Nov-2022 AM Multivitamin with Minerals TabletDOSE = 1 tablet(s) Oral Daily Multiple Vitamins oral tablet continued as the inpatient order Multivitamin with Minerals nortriptyline 25 mg oral capsule orally once a [id number]-[id number]-0465 PM Nortriptyline Capsule (PAMELOR)DOSE = 25 mg [...] tab(s) orally 2 times a day, As [id number]-[id number] 23 Reviewed and Held Potassium Chloride (Lcp-Eqju-Wjs 10) 10 mEq oral tablet, extended release 1 tab(s) orally once a [id number]-[id number]-Tse-4252 PM Reviewed and Held Additional Current Orders [...] 12 HoursRecommended Infusion Time: 60 minute(s) Normal [facility] Radiologyon 11-04-2022 Fluoroscopy duration Please click on the link to view the study images Normal [facility] [facility] Work Phone: Established Visit (Orthopaed ic Surgery)on [...] instructions were (more content not included)... Normal [place] APTTon 10-21-2022 aPTT Coag (Bld) [Time] 34 s Normal 27 - 38 [facility] Comment on above: Result Comment: Note new reference range as of 08/13/2022 at 10:00am. Performed By: #### A PTT #### [address] [id number] Activated Partial Thrombopla stin Timeon 10-21-2022 aPTT Coag (PPP) [Time] 34 s 27 - 38 [facility] Work Phone: Comment on above: Note new [...] (cells/L). Performed By: #### C BCDF #### [address] [id number] Basophils (Bld) [#/Vol] 0.11 10*3/uL High 0.00 - 0.10 [facility] Comment on above: Performed By: #### C BCDF #### [address] [id number] Basophils/100 WBC (Bld) 1.2 % Normal 0.0 - 2.0 [facility] Comment on above: Performed By: #### C BCDF #### [address] [id number] Eosinophils (Bld) [#/Vol] 0.21 10*3/uL Normal 0.00 - 0.70 [facility] Comment on above: Performed By: #### C BCDF #### [address] [id number] Eosinophils/100 WBC (Bld) 2.2 % Normal 0.0 - 6.0 [facility] Comment on above: Performed By: #### C BCDF #### [address] [id number] Erythrocyte distribution width (RBC) [Ratio] 13.5 % Normal 11.5 - 14.5 [facility] Comment on above: Performed By: #### C BCDF #### [address] [id number] Hematocrit (Bld) [Volume fraction] 44.9 % Normal 41.0 - 52.0 [facility] Comment on above: Performed By: #### C BCDF #### [address] [id number] Hemoglobin (Bld) [Mass/Vol] 14.8 g/dL Normal 13.5 - 17.5 [facility] Comment on above: Performed By: #### C BCDF #### [address] [id number] Lymphocytes (Bld) [#/Vol] 1.28 10*3/uL Normal 1.20 - 4.80 [facility] Comment on above: Performed By: #### C BCDF #### [address] [id number] Lymphocytes/100 WBC (Bld) 13.6 % Normal 13.0 - 44.0 [facility] Comment on above: Performed By: #### C BCDF #### [address] [id number] MCHC (RBC) [Mass/Vol] 33.0 g/dL Normal 32.0 - 36.0 [facility] Comment on above: Performed By: #### C BCDF #### [address] [id number] MCV (RBC) [Entitic vol] 94 fL Normal 80 - 100 [facility] Comment on above: Performed By: #### C BCDF #### [address] [id number] Monocytes (Bld) [#/Vol] 0.72 10*3/uL Normal 0.10 - 1.00 [facility] Comment on above: Performed By: #### C BCDF #### [address] [id number] Monocytes/100 WBC (Bld) 7.7 % Normal 2.0 - 10.0 [facility] Comment on above: Performed By: #### C BCDF #### [address] [id number] Neutrophils (Bld) [#/Vol] 7.04 10*3/uL Normal 1.20 - 7.70 [facility] Comment on above: Performed By: #### C BCDF #### [address] [id number] Neutrophils/100 WBC (Bld) 75.0 % Normal 40.0 - 80.0 [facility] Comment on above: Performed By: #### C BCDF #### [address] [id number] Platelets (Bld) [#/Vol] 251 10*3/uL Normal 150 - 450 [facility] Comment on above: Performed By: #### C BCDF #### [address] [id number] RBC 4.78 x10E12/L Normal 4.50 - 5.90 [facility] Comment on above: Performed By: #### C BCDF #### [address] [id number] WBC (Bld) [#/Vol] 9.4 10*3/uL Normal 4.4 - 11.3 [facility] Comment on above: Performed By: #### C BCDF #### [address] [id number] COMPREHENSIVE PANELon 2022 Albumin [Mass/Vol] 4.0 g/dL Normal 3.4 - 5.0 [facility] Comment on above: Performed By: #### C BC #### [address] [id number] ALP [Catalytic activity/Vol] 127 U/L Normal 33 - 136 [facility] Comment on above: Performed By: #### C BC #### [address] [id number] ALT [Catalytic activity/Vol] 16 U/L Normal 10 - 52 [facility] Comment on above: Result Comment: Becca ents treated with Sulfasalazine may generate falsely decreased results for ALT. Performed By: #### C BC #### [address] [id number] Anion gap [Moles/Vol] 12 mmol/L Normal 10 - 20 [facility] Comment on above: Performed By: #### C BC #### [address] [id number] AST [Catalytic activity/Vol] 21 U/L Normal 9 - 39 [facility] Comment on above: Performed By: #### C BC #### [address] [id number] Bilirubin [Mass/Vol] 0.6 mg/dL Normal 0.0 - 1.2 [facility] Comment on above: Performed By: #### C BC #### [address] [id number] Calcium [Mass/Vol] 9.3 mg/dL Normal 8.6 - 10.3 [facility] Comment on above: Performed By: #### C BC #### [address] [id number] Chloride [Moles/Vol] 103 mmol/L Normal 98 - 107 [facility] Comment on above: Performed By: #### C BC #### [address] [id number] Creatinine [Mass/Vol] 1.29 mg/dL Normal 0.50 - 1.30 [facility] Comment on above: Performed By: #### C BC #### [address] [id number] GFR/1.73 sq M.predicted among non-blacks MDRD (S/P/Bld) [Vol rate/Area] 61 mL/min/{1.73_m2} Normal >90 [facility] Comment on above: Result Comment: CALC ULATIONS OF ESTIMATED GFR ARE PERFORMED USING THE 2020 CKD-EPI STUDY REFIT EQUATION WITHOUT THE RACE VARIABLE FOR THE IDMS-TRACEABLE CREATININE METHODS. https://jasn.asnjournals.org/content//ASN.0388417 988 Performed By: #### C BC #### [address] [id number] Glucose [Mass/Vol] 103 mg/dL High 74 - 99 [facility] Comment on above: Performed By: #### C BC #### [address] [id number] HCO3 (Bld) [Moles/Vol] 27 mmol/L Normal 21 - 32 [facility] Comment on above: Performed By: #### C BC #### [address] [id number] Potassium [Moles/Vol] 3.8 mmol/L Normal 3.5 - 5.3 [facility] Comment on above: Performed By: #### C BC #### [address] [id number] Protein [Mass/Vol] 7.4 g/dL Normal 6.4 - 8.2 [facility] Comment on above: Performed By: #### C BC #### [address] [id number] Sodium [Moles/Vol] 138 mmol/L Normal 136 - 145 [facility] Comment on above: Performed By: #### C BC #### [address] [id number] Urea nitrogen [Mass/Vol] 11 mg/dL Normal 6 - 23 [facility] Comment on above: Performed By: #### C BC #### [address] [id number] Complete Blood Count + Diffe rentialon 10-21-2022 Basophils/100 WBC (Bld) 1.2 % 0.0 - 2.0 [facility] Work Phone: Erythrocyte distribution width (RBC) [Ratio] 13.5 % See Below [facility] Work Phone: Comment on above: Reference Range: 11. 5 - 14.5 Hematocrit (Bld) [Volume fraction] 44.9 % See Below [facility] Work Phone: Comment on above: Reference Range: 41. 0 - 52.0 Hemoglobin (Bld) [Mass/Vol] 14.8 g/dL See Below [facility] Work Phone: Comment on above: Reference Range: 13. 5 - 17.5 Lymphocytes/100 WBC (Bld) 13.6 % See Below [facility] [place] Work Phone: Comment on above: Reference Range: 13. 0 - 44.0 MCHC (RBC) [Mass/Vol] 33.0 g/dL See Below [facility] [place] Work Phone: [phone] Comment on above: Reference Range: 32. 0 - 36.0 MCV (RBC) [Entitic vol] 94 fL 80 - 100 [facility] [place] Work Phone: [phone] Monocytes/100 WBC (Bld) 7.7 % 2.0 - 10.0 [facility] [place] Work Phone: Neutrophils/100 WBC (Bld) 75.0 % See Below [facility] [place] Work Phone: [phone] Comment on above: Reference Range: 40. 0 - 80.0 Platelets (Bld) [#/Vol] 251 10*3/uL 150 - 450 [facility] [place] Work Phone: [phone] RBC (Bld) [#/Vol] 4.78 {x10E12/L} See Below [facility] [place] Work Phone: Comment on above: Reference Range: 4.5 0 - 5.90 WBC (Bld) [#/Vol] 9.4 10*3/uL 4.4 - 11.3 [facility] [place] Work Phone: Complete Blood Count + Differential 0.11 {x10E9/L} above high threshold See Below [facility] [place] Work Phone: [phone] Comment on above: Reference Range: 0.0 0 - 0.10 Complete Blood Count + Differential 0.21 {x10E9/L} See Below [facility] [place] Work Phone: [phone] Comment on above: Reference Range: 0.0 0 - 0.70 Complete Blood Count + Differential 0.72 {x10E9/L} See Below [facility] Work Phone: Comment on above: Reference Range: 0.1 0 - 1.00 Complete Blood Count + Differential 1.28 {x10E9/L} See Below [facility] Work Phone: Comment on above: Reference Range: 1.2 0 - 4.80 Complete Blood Count + Differential 7.04 {x10E9/L} See Below [facility] Work Phone: Comment on above: Reference Range: 1.2 0 - 7.70 Complete Blood Count + Differential 2.2 % 0.0 - 6.0 [facility] Work Phone: Complete Blood Count + Differential 0.3 % 0.0 - 0.9 [facility] Work Phone: Comment on above: Immature Granulocyte Count (IG) includes promyelocytes, myelocytes and metamyelocytes but does not include bands. Percent differential counts (%) should be interpreted in the context of the absolute cell counts (cells/L). Electrocardiogram 12 Leadon 10-21-2022 Electrocardiogram 12 Lead Ventricular Rate 64 Atrial Rate 64 P-R Interval 172 QRS Duration 84 Q-T Interval 398 QTC Calculation(Bazett) 410 P Sycamore 22 R Sycamore 17 T Sycamore 32 QRS Count 11 Q Onset 225 P Onset 139 P Offset 198 T Offset 424 QTC Fredericia 406 Diagnosis Class Borderline Normal Diagnosis Normal sinus rhythm Early transition Otherwise normal ECG No previous ECGs available Confirmed by Curtis Trejo ([id number]) on 10/24/2022 9:27:12 AM Normal [facility] Laboratory - Chemistry and C hemistry - challengeon 10-21-2022 Albumin BCP dye [Mass/Vol] 4.0 g/dL 3.4 - 5.0 [facility] Work Phone: ALP [Catalytic activity/Vol] 127 U/L 33 - 136 [facility] Work Phone: [phone] ALT With P-5'-P [Catalytic activity/Vol] 16 U/L 10 - 52 [facility] Work Phone: [phone] Comment on above: Patients treated wit h Sulfasalazine may generate falsely decreased results for ALT. Anion gap [Moles/Vol] 12 mmol/L 10 - 20 [facility] Work Phone: [phone] AST With P-5'-P [Catalytic activity/Vol] 21 U/L 9 - 39 [facility] Work Phone: [phone] Bilirubin [Mass/Vol] 0.6 mg/dL 0.0 - 1.2 [facility] Work Phone: [phone] Calcium [Mass/Vol] 9.3 mg/dL 8.6 - 10.[address] [facility] Work Phone: [phone] Chloride [Moles/Vol] 103 mmol/L 98 - 107 [facility] Work Phone: [phone] CO2 [Moles/Vol] 27 mmol/L 21 - 32 -[facility] Work Phone: [phone] Creatinine [Mass/Vol] 1.29 mg/dL See Below -[facility] Work Phone: [phone] Comment on above: Reference Range: 0.5 0 - 1.30 Glucose [Mass/Vol] 103 mg/dL above high threshold 74 - 99 [facility] Work Phone: [phone] Potassium [Moles/Vol] 3.8 mmol/L 3.5 - 5.3 [facility] Work Phone: [phone] Protein [Mass/Vol] 7.4 g/dL 6.4 - 8.[address] [facility] Work Phone: [phone] Sodium [Moles/Vol] 138 mmol/L 136 - [address] [address] [facility] [place] Work Phone: [phone] nitrogen [Mass/Vol] 11 mg/dL 6 - 23 [facility] [place] Work Phone: [phone] Laboratory - Coagulationon 0 10-21-2022 INR Coag (PPP) [Relative time] 1.4 {INR} above high threshold 0.9 - 1.1 [facility] [place] Work Phone: [phone] PT Coag (PPP) [Time] 16.2 s above high threshold 9.8 - 12.8 [facility] [place] Work Phone: [phone] Comment on above: Note new reference yrn duponte as of 08/13/2022 at 10:00am. MRSA Screenon 10-21-2022 Staphylococcus sp identified Org specific cx Nom (Unsp spec) Abnormal -[facility] Work Phone: [phone] Panel Informationon 10-21 [email or web address] ?RetrieveTestByDateTime?Pa ermofZP=[id number]&Date=&Time=14%3a28%3a16% 3a00&TestType=ECG&Site=1&O utputType=PDF&Ext=PDF -[facility] [place] Work Phone: [phone] Normal sinus rhythm [facility] [place] Work Phone: [phone] Borderline Normal [facility] [place] Work Phone: [phone] -[facility] [place] Work Phone: [phone] -[facility] [place] Work Phone: [phone] -[facility] [place] Work Phone: [phone] -[facility] [place] Work Phone: [phone] [facility] [place] Work Phone: [phone] [facility] [place] Work Phone: [phone] [facility] [place] Work Phone: [phone] [facility] [place] Work Phone: [phone] [facility] [place] Work Phone: [phone] [facility] [place] Work Phone: [phone] [facility] [place] Work Phone: [phone] [facility] [place] Work Phone: [phone] [facility] [place] Work Phone: [phone] [facility] [place] Work Phone: [phone] {mL/min/1.73m2} >[address] [place] Work Phone: Comment on above: CALCULATIONS OF MEGAN MATED GFR ARE PERFORMED USING THE 2020 CKD-EPI STUDY REFIT EQUATION WITHOUT THE RACE VARIABLE FOR THE IDMS-TRACEABLE CREATININE METHODS.https://jasn.asnjournals.org/content/early/ASN .6788195650 PT/INRon 10-21-2022 PT Coag (PPP) [Time] 16.2 s High 9.8 - 12.8 [facility] Comment on above: Result Comment: Note new reference range as of 08/13/2022 at 10:00am. Performed By: #### P TINR #### [address] [id number] PT, INR 1.4 High 0.9 - 1.1 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 (procedure may be cancelled if no hydraulic lift driver), center location, insurance information Prep Instructions Reviewedyes Prep TypeCHG wipes Instructed to Have No Fluids AfterNPO after midnight How to be AddressedGarry Spoken Language PreferredEnglish Source of Informationpatient Stated Reason for AdmissionBack surgery Primary Contact Name and NumberJose Carlos (brother) [phone] Other Contact Names and NumbersDerick Garsia (friend) [phone] Limitations on Visitors/Phone Callsnone Medications Brought to Hospitalno General Health: Weight in kg90.4 kilogram(s) Weight in fhz171.2 pound(s) Weight Methodactual (measured) Scale Typestanding Height [...] CommentsLives with brother Resource/Environmental Concernsnone Anticipated [place] [facility] Anticipated at Transitionnone Tobacco Use: Tobacco Useno former cigar smoker, quit 15 years ago Pre-op Checklist: Arrival [id number] Arrival Time09:25 Procedure TypeL2-3, L3-4 LAMINECTOMY, L3-4 INSTRUMENTATION, L2-3, L3-4 POSTERIOR LATERAL FUSION, L3-4LATERAL LUMBAR INTERBODY FUSION NPOyes Last Food Rdghrs07-Egm-1525 18:30 Last Clear Fluid Pbgbvo93-Qub-5173 19:00 ID Band On Patientpatient ID (name), falls risk Consent Signedyes H&P Completeyes Anesthesia Assessment Completedpending EKG Performedsee results tab Chest X-Ray Performednot ordered Preop Antibioticssent to OR Beta-sushant Last Dose Date/Ymak75-Sdd-9576 02:30 Glucose Resultn/a Type and Screen Resultedn/a [...] Last Updated: 04-Nov-2022 05:56 by Moira Marsh) [facility] STAPH/MRSA SCREENon 08-28-20 23 STAPH/MRSA SCREEN PATIENT: ERIK MORALES LOCATION: [facility] BILL#: [id number] : 55 AGE: SEX: M ORDERED BY: CURTIS MELÉNDEZ SOURCE: MISC COLLECTED: 10/21/22 14:18 ANTIBIOTICS AT TEDDY.: RECEIVED : 10/21/22 21:56 SITE: R E S U L T S STAPH/MRSA SCREEN FINAL 10/23/22 12:12 ISOLATE1 : Staphylococcus aureus METHICILLIN SENSITIVE STAPHYLOCOCCUS AUREUS (MSSA) Normal [facility] Comment on above: Performed By: #### S TAPH #### [facility] [address] [place] [address] URINALYSIS WITH CULTURE IF I NDICATEDon 10-21-2022 Appearance (U) CLEAR Normal CLEAR [facility] Comment on above: Performed By: #### U ARFX #### [address] [id number] Bilirubin Ql (U) Negative Normal NEGATIVE [facility] Comment on above: Performed By: #### U ARFX #### [address] [id number] Color (U) YELLOW Normal STRAW,YELLO W [facility] Comment on above: Performed By: #### U ARFX #### [address] [id number] Glucose Ql (U) Negative Normal NEGATIVE [facility] Comment on above: Performed By: #### U ARFX #### [address] [id number] Hemoglobin Ql (U) Negative Normal NEGATIVE [facility] Comment on above: Performed By: #### U ARFX #### [address] [id number] Ketones Ql (U) Negative Normal NEGATIVE [facility] Comment on above: Performed By: #### U ARFX #### [address] [id number] Leukocyte esterase Test strip Ql (U) Negative Normal NEGATIVE [facility] Comment on above: Performed By: #### U ARFX #### [address] [id number] Nitrite Ql (U) Negative Normal NEGATIVE [facility] Comment on above: Performed By: #### U ARFX #### [address] [id number] pH (U) 6.0 [pH] Normal 5.0 - 8.0 [facility] Comment on above: Performed By: #### U ARFX #### [address] [id number] Protein Ql (U) Negative Normal NEGATIVE [facility] Comment on above: Performed By: #### U ARFX #### [address] [id number] Specific gravity (U) [Rel density] 1.010 Normal 1.005 - 1.035 [facility] Comment on above: Performed By: #### U ARFX #### [address] [id number] Urobilinogen (U) [Mass/Vol] mg/dL Normal 0.0 - 1.9 [facility] Comment on above: Performed By: #### U ARFX #### [address] [id number] Color (U) YELLOW See Below -[facility] Work Phone: Comment on above: Reference Range: STR AW,YELLOW Glucose Ql (U) Negative NEGATIVE -[facility] Work Phone: Ketones Ql (U) Negative NEGATIVE -[place] [facility] Work Phone: Leukocyte esterase Test strip Ql (U) Negative NEGATIVE -[place] [facility] Work Phone: pH (U) 6.0 [pH] 5.0 - 8.0 -[facility] Work Phone: Protein (U) [Mass/Vol] Negative NEGATIVE -[facility] Work Phone: RBC (U) [#/Vol] Negative NEGATIVE -[facility] Work Phone: Specific gravity (U) [Rel density] 1.010 1 See Below -[facility] Work Phone: Comment on above: Reference Range: 1.0 05 - 1.035 URINALYSIS WITH CULTURE IF INDICATED Negative NEGATIVE -[facility] Work Phone: URINALYSIS WITH CULTURE IF INDICATED <2.0 0.0 - 1.9 -[place] [facility] Work Phone: URINALYSIS WITH CULTURE IF INDICATED CLEAR CLEAR -[place] [facility] Work Phone: Established Visit (Orthopaed ic Surgery)on 09-19-2022 Established Visit (Orthopaedic Surgery) Orders Back pain, Other intervertebral disc degeneration, lumbar region [place] [facility]; Status:Need Information - Financial Authorization; Requested for:[id number]; Osteogenesic Stimulator; Status:Active; Requested for:[id number]; Provider Impressions Assessment: At this time, I [...] adult (278.00,V (more content not included)... Normal [facility] Initial Visit (Orthopaedic S urgery)on 08-23-2022 Initial [...] plates and the interbody cage is a Boron cage. He currently has stenosis at L2-L3 [...] thoracic and lumbar xrays and MRI in [place]. brought a disc. History of Present IllnessErik [...] to the pain management center down in [place]. Review of Systems Review of systems, past [...] XR Lumbar spine AP and Lateral Normal -[place] [facility] Work Phone: SPINE, LUMBOSACRAL 2 OR 3 EWSon 08-23-2022 SPINE, LUMBOSACRAL 2 OR 3 VIEWS Patient Name: ERIK MORALES STUDY: SPINE, LUMBOSACRAL; 2 OR 3 VIEWS; ; 08/23/2022 1:37 pm INDICATION: pain M51.36: Other intervertebral disc degeneration, lumbar region M54.9: Back pain. ACCESSION NUMBER(S): [id number] ORDERING CLINICIAN: CURTIS MELÉNDEZ FINDINGS: Flexion-extension x-rays [...] CURTIS MELÉNDEZ MD Normal [facility] VASC LAB Abdominal Aorta/Nancy ac/IVC Ultraon 07-31-2022 VASC LAB Abdominal Aorta/Iliac/IVC Ultra [address], [address], [place] [address] Vascular Lab Report Abdominal Aorta Iliac Ultrasound/IVC Ultrasound Patient Name: ERIK Mckoy Physician: [id number] Cecilio Go MD, [facility] Study Date: 07/31/2022 Referring CECILIO GO Physician: MRN/PID: [id number] PCP: Carmen Witt Accession/Order#: [id number] CC Report to: Date of : 1955 Technologist: Karol Hull RDCS T Gender: M Technologist 2: Admission Status: Outpatient Location Performed: [facility] Diagnosis/ICD: I71.43-Infrarenal abdominal aortic aneurysm, without rupture Indication: HTN, Hyperlipidemia, Obesity, Former Smoker, Dyspnea, Pulmonary Fibrosis Procedure/CPT: 34932 Duplex Aorta/IVC/Iliac/Bypass Graft-[id number] CONCLUSIONS: Aorta/Common Iliac Arteries/IVC: Infrarenal fusiform abdominal [...] Proximal 0.71 cm 0.96 cm 0.96 cm/s [id number] Cecilio Go MD, FACC Final Normal [facility] VASC LAB Abdominal Aorta/Nancy ac/IVC Ultrasoundon 07-31-2022 VASC LAB Abdominal Aorta/Iliac/IVC Ultrasound -[facility] [address] DO Work Phone: [...] IRAIS LORENZANA Date: 2022-07-02 13:50 Normal [facility] Office Visit (Cardiology)on 06-04-2022 Follow-up visit [...] Weight Tips; Status:Complete - Retrospective Authorization; Done: [id number] Some eating tips that can help you lose weight.; Status:Complete - Retrospective Authorization; Done: [id number] SocHx: Former smoker Tobacco Use Screening; Status:Complete; Done: [id number] Patient Instructions Please bring all medicines, vitamins, [...] rashes. Neurologic (more content not included)... Normal [place] Tobacco Screening.on 023 Adult depression screening assessment No [facility] [employer] DO Work Phone: Fall risk assessment a) No falls within the last year [facility] [employer] 250 DO Work Phone: Tobacco use status [facility] b) No [facility] [employer] 250 DO Work Phone: CREATININEon 02-18-2022 Creatinine [Mass/Vol] 1.23 mg/dL Normal 0.70-1.30 [facility] Comment on above: Performed By: #### E RUR #### [facility] [address] [address] [address] Arielle Biswas EGFR-AF UKRAINIAN >60 Normal >=[address] [facility] Comment on above: Performed By: #### E RUR #### [facility] [address] [address] [address] Arielle Biswas EGFR-NON AF UKRAINIAN 59 mL/min/1.73m2 Critically low >=60 [facility] Comment on above: Performed By: #### E RUR #### [facility] [address] [address] [address] CHEST W CONon [...] BRITANY TSANG Date: 2022-02-18 15:28 Normal [facility] Office Visit (Cardiology)on 12-11-2021 Follow-up visit [...] Weight Tips; Status:Complete - Retrospective Authorization; Done: [id number] Some eating tips that can help you lose weight.; Status:Complete - Retrospective Authorization; Done: [id number] SocHx: Former smoker Tobacco Use Screening; Status:Complete; Done: [id number] Patient Instructions Please bring all medicines, vitamins, [...] pulmonary embolism. Recently follow-up CT scan at [facility] revealed resolution of the pulmonary emboli. Some other pathology was noted with densities requiring follow-up imaging in 3 to 6 months which has been arranged through his PCP. He is currently anticoagulated with Eliquis. The patient is contemplating further dental work in December which he should be able to hold anticoagulation prior to. Recent nuclear stress test at [facility] was reviewed and shared with the patient and was normal. He is also known to have normal ejection fraction. He currently has no complaint to report physical examination was only remarkable for 8 pounds weight gain from last visit. He is now in the obesity range recent medical record from [facility] were reviewed with the patient and [...] palpitations, but (more content not included)... Normal [place] Tobacco Screening.on Fall risk assessment a) No falls within the last year [facility] [address] DO Work Phone: [phone] Tobacco use status CPHS b) No [facility] [address] DO Work Phone: [phone] Tobacco Screening. Yes [facility] [...] by: BRITANY TSANG Date: 2021-11-05 11:08 Normal [facility] NM STRESS/REST MULTIon 10-17 NM STRESS/REST MULTI Patient: ERIK MORALES Exam Date: 10/17/2021 : 1955 Gender:M Ordering : DR CARMEN WITT . Admission #: [id number] Family : Order #: [id number] CLICK HERE TO VIEW EXAM RADIOLOGY REPORT [...] Tsang M.D. on 10/17/2021 at 13:48 Normal [facility] T4, T3U, FTI LABCORPon 10-10 Free Thyroxine Index 2.1 Normal 1.2-4.9 [facility] Comment on above: Performed By: #### E RUR #### [facility] [address] [place] [address] Dr. Arielle Biswas T3 Uptake 28 % Normal 24-39 [facility] Comment on above: Performed By: #### E RUR #### [facility] [address] [address] [address] Arielle Biswas T4 [Mass/Vol] 7.5 ug/dL Normal 4.5-12.0 [facility] Comment on above: Performed By: #### E RUR #### [facility] [address] [place] [address] Dr. Arielle Biswas BNPon 10-09-2021 Natriuretic peptide B (Bld) [Mass/Vol] 319.0 pg/mL Normal <=900.0 [facility] Comment on above: Performed By: #### B SPEECH LANGUAGE PATHOLOGY ASSISTANT, TSH, CMP #### [facility] [address] [place] [address] Dr. Arielle Biswas CBC AUTO DIFFon 10-09-2021 BASO # 0.1 103/ul Normal 0.0-0.1 [facility] Comment on above: Performed By: #### C BC #### [facility] [address] [place] [address] Dr. Arielle Biswas Basophils/100 WBC (Bld) 1.3 % Normal 0.2-2.0 [facility] Comment on above: Performed By: #### C BC #### [facility] [address] [place] [address] Dr. Arielle Biswas EO # 0.2 103/ul Normal 0.0-0.7 [facility] Comment on above: Performed By: #### C BC #### [facility] [address] [place] [address] Dr. Arielle Biswas Eosinophils/100 WBC (Bld) 3.0 % Normal 0.9-7.0 [facility] Comment on above: Performed By: #### C BC #### [facility] [address] [place] [address] Dr. Arielle Biswas Erythrocyte distribution width (RBC) [Ratio] 13.5 % Normal 11.0-15.0 [facility] Comment on above: Performed By: #### C BC #### [facility] [address] [place] [address] Dr. Arielle Biswas Hematocrit (Bld) [Volume fraction] 41.8 % Critically low 42.0-54.0 [facility] Comment on above: Performed By: #### C BC #### [facility] [address] [address] [address] Arielle Biswas Hemoglobin (Bld) [Mass/Vol] 13.6 g/dL Critically low 14.0-18.0 [facility] Comment on above: Performed By: #### C BC #### [facility] [address] [address] [address] Arielle Biswas IG # 0.03 10e3/ul Normal 0.00-0.03 [facility] Comment on above: Performed By: #### C BC #### [facility] [address] [place] [address] Dr. Arielle Biswas IG % 0.4 % Normal 0.0-0.5 [facility] Comment on above: Performed By: #### C BC #### [facility] [address] [place] [address] Dr. Arielle Biswas LYMPH # 1.2 103/ul Normal 1.2-3.8 [facility] Comment on above: Performed By: #### C BC #### [facility] [address] [place] [address] Dr. Arielle Biswas Lymphocytes/100 WBC (Bld) 16.5 % Critically low 20.5-60.0 [facility] Comment on above: Performed By: #### C BC #### [facility] [address] [place] [address] Dr. Arielle Biswas MANUAL DIFF REQ NO Normal [facility] Comment on above: Performed By: #### C BC #### [facility] [address] [place] [address] Dr. Arielle Biswas MCH (RBC) [Entitic mass] 31.2 pg Normal 25.9-34.0 [facility] Comment on above: Performed By: #### C BC #### [facility] [address] [place] [address] Dr. Arielle Biswas MCHC (RBC) [Mass/Vol] 32.5 g/dL Normal 29.9-35.2 [facility] Comment on above: Performed By: #### C BC #### [facility] [address] [place] [address] Dr. Arielle Biswas MCV (RBC) [Entitic vol] 95.9 fL Critically high 80.0-94.0 [facility] Comment on above: Performed By: #### C BC #### [facility] [address] [place] [address] Dr. Arielle Biswas MONO # 0.8 103/ul Normal 0.3-0.8 [facility] Comment on above: Performed By: #### C BC #### [facility] [address] [place] [address] Dr. Arielle Biswas Monocytes/100 WBC (Bld) 11.5 % Normal 1.7-12.0 [facility] Comment on above: Performed By: #### C BC #### [facility] [address] [place] [address] Dr. Arielle Biswas NEUT # 4.7 103/ul Normal 1.4-6.5 [facility] Comment on above: Performed By: #### C BC #### [facility] [address] [place] [address] Dr. Arielle Biswas Neutrophils/100 WBC (Bld) 67.3 % Normal 43.0-75.0 [facility] Comment on above: Performed By: #### C BC #### [facility] [address] [place] [address] Dr. Arielle Biswas Platelet mean volume (Bld) [Entitic vol] 10.2 fL Normal 9.5-13.5 [facility] Comment on above: Performed By: #### C BC #### [facility] [address] [place] [address] Dr. Arielle Biswas PLT 243 103/ul Normal 150-450 [facility] Comment on above: Performed By: #### C BC #### [facility] [address] [place], [place] [id number] Dr. Arielle Biswas RBC 4.36 106/ul Critically low 4.70-6.10 [facility] Comment on above: Performed By: #### C BC #### [facility] [address] [place] [address] Dr. Arielle Biswas WBC 7.0 103/ul Normal 4.0-11.0 [facility] Comment on above: Performed By: #### C BC #### [facility] [address] [place] [address] Dr. Arielle Biswas D-DIMERon 10-09-2021 D-DIMER 0.30 mg/L FEU Normal <=0.59 [facility] Comment on above: Performed By: #### E RUR #### [facility] [address] [place] [address] Dr. Arielle Biswas D-DIMER COMMENTS SEE BELOW Normal [facility] Comment on above: Result Comment: [...] hospitalization. Performed By: #### E RUR #### [facility] [address] [place] [address] Dr. Arielle Biswas PROF 14(COMP METB)on 022 Albumin [Mass/Vol] 3.0 g/dL Critically low 3.4-5.0 [facility] Comment on above: Performed By: #### B SPEECH LANGUAGE PATHOLOGY ASSISTANT, TSH, CMP #### [facility] [address] [place] [address] Dr. Arielle Biswas Albumin/Globulin [Mass ratio] 0.8 {ratio} Normal [facility] Comment on above: Performed By: #### B SPEECH LANGUAGE PATHOLOGY ASSISTANT, TSH, CMP #### [facility] [address] [place] [address] Dr. Arielle Biswas ALP [Catalytic activity/Vol] 120 U/L Critically high 46-116 [facility] Comment on above: Performed By: #### B SPEECH LANGUAGE PATHOLOGY ASSISTANT, TSH, CMP #### [facility] [address] [place] [address] Dr. Arielle Biswas ALT [Catalytic activity/Vol] 21 U/L Normal 16-63 [facility] Comment on above: Performed By: #### B SPEECH LANGUAGE PATHOLOGY ASSISTANT, TSH, CMP #### [facility] [address] [place] [address] Dr. Arielle Biswas Anion gap [Moles/Vol] 9.9 mmol/L Normal [facility] Comment on above: Performed By: #### B SPEECH LANGUAGE PATHOLOGY ASSISTANT, TSH, CMP #### [facility] [address] [place] [address] Dr. Arielle Biswas AST [Catalytic activity/Vol] 20 U/L Normal 15-37 [facility] Comment on above: Performed By: #### B SPEECH LANGUAGE PATHOLOGY ASSISTANT, TSH, CMP #### [facility] [address] [place] [address] Dr. Arielle Biswas Bilirubin [Mass/Vol] 0.6 mg/dL Normal 0.2-1.0 [facility] Comment on above: Performed By: #### B SPEECH LANGUAGE PATHOLOGY ASSISTANT, TSH, CMP #### [facility] [address] [place] [address] Dr. Arielle Biswas Calcium [Mass/Vol] 8.8 mg/dL Normal 8.5-10.1 [facility] Comment on above: Performed By: #### B SPEECH LANGUAGE PATHOLOGY ASSISTANT, TSH, CMP #### [facility] [address] [place] [address] Dr. Arielle Biswas Chloride [Moles/Vol] 103 mmol/L Normal 98-107 [facility] Comment on above: Performed By: #### B SPEECH LANGUAGE PATHOLOGY ASSISTANT, TSH, CMP #### [facility] [address] [place] [address] Dr. Arielle Biswas CO2 [Moles/Vol] 29.0 mmol/L Normal 21.0-32.[address] [facility] Comment on above: Performed By: #### B SPEECH LANGUAGE PATHOLOGY ASSISTANT, TSH, CMP #### [facility] [address] [place] [address] Dr. Arielle Biswas Creatinine [Mass/Vol] 1.23 mg/dL Normal 0.70-1.30 [facility] Comment on above: Performed By: #### B SPEECH LANGUAGE PATHOLOGY ASSISTANT, TSH, CMP #### [facility] [address] [address] [address] Arielle Biswas EGFR-AF UKRAINIAN >60 Normal >=[address] [facility] Comment on above: Performed By: #### B SPEECH LANGUAGE PATHOLOGY ASSISTANT, TSH, CMP #### [facility] [address] [place] [address] Dr. Arielle Biswas EGFR-NON AF UKRAINIAN 59 mL/min/1.73m2 Critically low >=60 [facility] Comment on above: Performed By: #### B SPEECH LANGUAGE PATHOLOGY ASSISTANT, TSH, CMP #### [facility] [address] [place] [address] Dr. Arielle Biswas Globulin (S) [Mass/Vol] 3.7 g/dL Normal [facility] Comment on above: Performed By: #### B SPEECH LANGUAGE PATHOLOGY ASSISTANT, TSH, CMP #### [facility] [address] [place] [address] Dr. Arielle Biswas Glucose [Mass/Vol] 95 mg/dL Normal 74-106 [facility] Comment on above: Performed By: #### B SPEECH LANGUAGE PATHOLOGY ASSISTANT, TSH, CMP #### [facility] [address] [place] [address] Dr. Arielle Biswas Potassium [Moles/Vol] 3.9 mmol/L Normal 3.5-5.1 [facility] Comment on above: Performed By: #### B SPEECH LANGUAGE PATHOLOGY ASSISTANT, TSH, CMP #### [facility] [address] [place] [address] Dr. Arielle Biswas Protein [Mass/Vol] 6.7 g/dL Normal 6.4-8.2 [facility] Comment on above: Performed By: #### B SPEECH LANGUAGE PATHOLOGY ASSISTANT, TSH, CMP #### [facility] [address] [place] [address] Dr. Arielle Biswas Sodium [Moles/Vol] 138 mmol/L Normal 136-145 [facility] Comment on above: Performed By: #### B SPEECH LANGUAGE PATHOLOGY ASSISTANT, TSH, CMP #### [facility] [address] [place] [address] Dr. Arielle Biswas Urea nitrogen [Mass/Vol] 13.0 mg/dL Normal 7.0-18.0 [facility] Comment on above: Performed By: #### B SPEECH LANGUAGE PATHOLOGY ASSISTANT, TSH, CMP #### [facility] [address] [address] [address] Arielle Biswas Urea nitrogen/Creatinine [Mass ratio] 10.6 mg/mg Normal [facility] Comment on above: Performed By: #### B SPEECH LANGUAGE PATHOLOGY ASSISTANT, TSH, CMP #### [facility] [address] [address] [address] Arielle Biswas TSHon 10-09-2021 TSH 0.393 uIU/mL Normal 0.358-3.740 [facility] Comment on above: Performed By: #### B SPEECH LANGUAGE PATHOLOGY ASSISTANT, TSH, CMP #### [facility] [address] [place] [address] Dr. Arielle Biswas Tobacco Screening.on 022 Adult depression screening assessment No [facility] [place] [facility] Work Phone: Fall risk assessment a) No falls within the last year [facility] [employer] [place] [facility] [place] Work Phone: Tobacco use status CPHS b) No [facility] [address] DO Work Phone: CARDIAC DAVON 3-6on 2 CK [Catalytic activity/Vol] 80 U/L Normal 39-308 [facility] Comment on above: Performed By: #### E RUR #### [facility] [address] [place] [address] Dr. Arielle Biswas CK.MB [Mass/Vol] 2.19 ng/mL Normal <=3.[address] [facility] Comment on above: Performed By: #### E RUR #### [facility] [address] [place] [address] Dr. Arielle Biswas HSTROP 152.1 pg/mL Critically high 4.0-76.[address] [facility] Comment on above: Result Comment: CUT- OFF POINTS HAVE BEEN ESTABLISHED BASED ON THE FOURTH UNIVERSAL DEFINITIONS OF MYOCARDIAL INFARCTION. THE UPPER REFERENCE LIMIT (URL) OF TROPONIN, DEFINED THE 99TH PERCENTILE OF cTnI DISTRIBUTION IN A REFERENCE POPULATION, HAS BEEN CONFIRMED THE DECISION THRESHOLD FOR OH DIAGNOSIS. repeated Performed By: #### E RUR #### [facility] [address] [place] [address] Dr. Arielle Biswas CARDIAC DAVON ADMITon 022 CK [Catalytic activity/Vol] 32 U/L Critically low 39-308 [facility] Comment on above: Performed By: #### B FRANKLYN, CMADM #### [facility] [address] [place] [address] Dr. Arielle Biswas CK.MB [Mass/Vol] 2.01 ng/mL Normal <=3.[address] [facility] Comment on above: Performed By: #### B FRANKLYN, MANJULADM #### [facility] [address] [place] [address] Dr. Arielle Biswas HSTROP 144.5 pg/mL Critically high 4.0-76.[address] [facility] Comment on above: Result Comment: CUT- OFF POINTS HAVE BEEN ESTABLISHED BASED ON THE FOURTH UNIVERSAL DEFINITIONS OF MYOCARDIAL INFARCTION. THE UPPER REFERENCE LIMIT (URL) OF TROPONIN, DEFINED THE 99TH PERCENTILE OF cTnI DISTRIBUTION IN A REFERENCE POPULATION, HAS BEEN CONFIRMED THE DECISION THRESHOLD FOR OH DIAGNOSIS. repeated Performed By: #### B FRANKLYN, MANJULADM #### [facility] [address] [place] [address] Dr. Arielle Biswas PJ 39 ng/mL Normal 16-96 [facility] Comment on above: Performed By: #### B FRANKLYN, MANJULADM #### [facility] [address] [place] [address] Dr. Arielle Biswas CBC AUTO DIFFon 07-14-2021 BASO # 0.1 103/ul Normal 0.0-0.1 [facility] Comment on above: Performed By: #### E RUR #### [facility] [address] [place] [address] Dr. Arielle Biswas Basophils/100 WBC (Bld) 0.5 % Normal 0.2-2.0 [facility] Comment on above: Performed By: #### E RUR #### [facility] [address] [place] [address] Dr. Arielle Biswas EO # 0.1 103/ul Normal 0.0-0.7 [facility] Comment on above: Performed By: #### E RUR #### [facility] [address] [address] [address] Arielle Biswas Eosinophils/100 WBC (Bld) 0.6 % Critically low 0.9-7.0 [facility] Comment on above: Performed By: #### E RUR #### [facility] [address] [place] [address] Dr. Arielle Biswas Erythrocyte distribution width (RBC) [Ratio] 14.6 % Normal 11.0-15.0 [facility] Comment on above: Performed By: #### E RUR #### [facility] [address] [place] [address] Dr. Arielle Biswas Hematocrit (Bld) [Volume fraction] 45.5 % Normal 42.0-54.0 [facility] Comment on above: Performed By: #### E RUR #### [facility] [address] [place] [address] Dr. Arielle Biswas Hemoglobin (Bld) [Mass/Vol] 14.5 g/dL Normal 14.0-18.0 [facility] Comment on above: Performed By: #### E RUR #### [facility] [address] [place] [address] Dr. Arielle Biswas IG # 0.13 10e3/ul Critically high 0.00-0.03 [facility] Comment on above: Performed By: #### E RUR #### [facility] [address] [place] [address] Dr. Arielle Biswas IG % 0.8 % Critically high 0.0-0.[address] [facility] Comment on above: Performed By: #### E RUR #### [facility] [address] [place] [address] Dr. Arielle Biswas LYMPH # 1.4 103/ul Normal 1.2-3.8 [facility] Comment on above: Performed By: #### E RUR #### [facility] [address] [place] [address] Dr. Arielle Biswas Lymphocytes/100 WBC (Bld) 8.7 % Critically low 20.5-60.0 [facility] Comment on above: Performed By: #### E RUR #### [facility] [address] [address] [address] Arielle Biswas MANUAL DIFF REQ NO Normal [facility] Comment on above: Performed By: #### E RUR #### [facility] [address] [place] [address] Dr. Arielle Biswas MCH (RBC) [Entitic mass] 30.5 pg Normal 25.9-34.0 [facility] Comment on above: Performed By: #### E RUR #### [facility] [address] [place] [address] Dr. Arielle Biswas MCHC (RBC) [Mass/Vol] 31.9 g/dL Normal 29.9-35.2 [facility] Comment on above: Performed By: #### E RUR #### [facility] [address] [place] [address] Dr. Arielle Biswas MCV (RBC) [Entitic vol] 95.6 fL Critically high 80.0-94.0 [facility] Comment on above: Performed By: #### E RUR #### [facility] [address] [place] [address] Dr. Arielle Biswas MONO # 1.1 103/ul Critically high 0.3-0.[address] [facility] Comment on above: Performed By: #### E RUR #### [facility] [address] [place] [address] Dr. Arielle Biswas Monocytes/100 WBC (Bld) 7.1 % Normal 1.7-12.0 [facility] Comment on above: Performed By: #### E RUR #### [facility] [address] [place] [address] Dr. Arielle Biswas NEUT # 12.9 103/ul Critically high 1.4-6.[address] [facility] Comment on above: Performed By: #### E RUR #### [facility] [address] [place] [address] Dr. Arielle Biswas Neutrophils/100 WBC (Bld) 82.3 % Critically high 43.0-75.0 [facility] Comment on above: Performed By: #### E RUR #### [facility] [address] [address] [address] Arielle Biswas Platelet mean volume (Bld) [Entitic vol] 9.7 fL Normal 9.5-13.5 [facility] Comment on above: Performed By: #### E RUR #### [facility] [address] [address] [address] Arielle Biswas PLT 206 103/ul Normal 150-450 [facility] Comment on above: Performed By: #### E RUR #### [facility] [address] [address] [address] Arielle Biswas RBC 4.76 106/ul Normal 4.70-6.10 [facility] Comment on above: Performed By: #### E RUR #### [facility] [address] [address] [address] Arielle Biswas WBC 15.6 103/ul Critically high 4.0-11.[address] [facility] Comment on above: Performed By: #### E RUR #### [facility] [address] [address] [address] Arielle Biswas CTA CHEST WO W CONon 05-21-2 022 CTA CHEST WO W CON EXAM: [...] better delineate. CRITICAL findings: Spoke with Dr. Syed at 12:50 am EST [facility] CRITERIA 2017 [...] H (more content not included)... Normal [facility] Covid-19 PCR (CVDTB)on 06-25 SARS-CoV-2 (COVID-19) RNA ELKIN+probe Ql (Unsp spec) Not detected Normal NOT DETECTED [facility] Comment on above: Result Comment: When diagnostic testing is negative, the possibility of a false negative should be considered in the context of a patient's recent exposures and the presence of clinical signs and symptoms consistent with SARS-CoV-2. This test is not yet approved or cleared by the [place] Food and Drug Administration (FDA). This test was developed by [employer] [place], [place]. The performance characteristics of this test were validated by [facility]. The results are not intended to be used as the sole means for clinical diagnosis or patient management decisions. [facility] is authorized under Clinical Laboratory Improvement [...] for this test is supported by the [place] of Health and Human Service's declaration that [...] used). Performed By: #### E RUR #### [facility] [address] [place] [address] Dr. Arielle Biswas ER URINE PROFILEon 2 Bilirubin Ql (U) Negative Normal NEGATIVE [facility] Comment on above: Performed By: #### E RUR #### [facility] [address] [place] [address] Dr. Arielle Biswas Clarity (U) CLEAR Normal CLEAR [facility] Comment on above: Performed By: #### E RUR #### [facility] [address] [place] [address] Dr. Arielle Biswas Color (U) LT. YELLOW Normal YELLOW [facility] Comment on above: Performed By: #### E RUR #### [facility] [address] [place] [address] Dr. Arielle Biswas ERUAHD A micrscopic examina tion will be performed if indicated. Normal [facility] Comment on above: Performed By: #### E RUR #### [facility] [address] [place] [address] Dr. Arielle Biswas Glucose Ql (U) Negative Normal NEGATIVE [facility] Comment on above: Performed By: #### E RUR #### [facility] [address] [place] [address] Dr. Arielle Biswas Hemoglobin Ql (U) Negative Normal NEGATIVE [facility] Comment on above: Performed By: #### E RUR #### [facility] [address] [place] [address] Dr. Arielle Biswas Ketones Ql (U) Negative Normal NEGATIVE [facility] Comment on above: Performed By: #### E RUR #### [facility] [address] [place] [address] Dr. Arielle Biswas LEUKOCYTES Negative Normal NEGATIVE [facility] Comment on above: Performed By: #### E RUR #### [facility] [address] [place] [address] Dr. Arielle Biswas Nitrite Ql (U) Negative Normal NEGATIVE [facility] Comment on above: Performed By: #### E RUR #### [facility] [address] [place] [address] Dr. Arielle Biswas pH (U) 6.0 [pH] Normal 5-9 [facility] [facility] Comment on above: Performed By: #### E RUR #### [facility] [address] [place] [address] Dr. Arielle Biswas SPEC GRAVITY 1.005 Normal 1.005-<=1.0 25 [facility] Comment on above: Performed By: #### E RUR #### [facility] [address] [place] [address] Dr. Arielle Biswas UA PROTEIN Negative Normal NEGATIVE/ TRACE [facility] Comment on above: Performed By: #### E RUR #### [facility] [address] [place] [address] Dr. Arielle Biswas UR MICRO IND NOT INDICATED Normal [facility] Comment on above: Performed By: #### E RUR #### [facility] [address] [place] [address] Dr. Arielle Biswas Urobilinogen Qn (U) 0.2 {Fernando'U}/dL Normal 0.2 - 1. 0 [facility] Comment on above: Performed By: #### E RUR #### [facility] [address] [address] [address] Arielle Biswas LACTATE/LACTIC ACIDon 2021 Lactate [Moles/Vol] 3.0 mmol/L Critically high 0.4-1.9 [facility] Comment on above: Result Comment: repe ated Performed By: #### E RUR #### [facility] [address] [place] [address] Dr. Arielle Biswas PROF CHEM 8 (BAS METB)on Anion gap [Moles/Vol] 14.0 mmol/L Normal [facility] Comment on above: Performed By: #### B AMANDA ESTES #### [facility] [address] [place] [address] Dr. Arielle Biswas Calcium [Mass/Vol] 8.9 mg/dL Normal 8.5-10.1 [facility] Comment on above: Performed By: #### AMANDA Lindsay MP #### [facility] [address] [address] [address] Arielle Biswas Chloride [Moles/Vol] 96 mmol/L Critically low 98-107 [facility] Comment on above: Performed By: #### AMANDA Lindsay MP #### [facility] [address] [place] [address] Dr. Arielle Biswas CO2 [Moles/Vol] 26.5 mmol/L Normal 21.0-32.0 [facility] Comment on above: Performed By: #### AMANDA Lindsay MP #### [facility] [address] [place] [address] Dr. Arielle Biswas Creatinine [Mass/Vol] 1.43 mg/dL Critically high 0.70-1.30 [facility] Comment on above: Performed By: #### AMANDA Lindsay MP #### [facility] [address] [place] [address] Dr. Arielle Biswas EGFR-AF UKRAINIAN 60 mL/min/1.73m2 Normal >=60 [facility] Comment on above: Performed By: #### AMANDA Lindsay MP #### [facility] [address] [address] [address] Arielle Biswas EGFR-NON AF UKRAINIAN 50 mL/min/1.73m2 Critically low >=60 [facility] Comment on above: Performed By: #### B FRANKLYN, CMADM #### [facility] [address] [place] [address] Dr. Arielle Biswas Glucose [Mass/Vol] 122 mg/dL Critically high 74-106 T [facility] Comment on above: Performed By: #### B FRANKLYN, CMADM #### [facility] [address] [place] [address] Dr. Arielle Biswas Potassium [Moles/Vol] 3.5 mmol/L Normal 3.5-5.1 [facility] Comment on above: Performed By: #### B FRANKLYN, CMADM #### [facility] [address] [place] [address] Dr. Arielle Biswas Sodium [Moles/Vol] 133 mmol/L Critically low 136-145 Th [facility] Comment on above: Performed By: #### B FRANKLYN, CMADM #### [facility] [address] [place] [address] Dr. Arielle Biswas Urea nitrogen [Mass/Vol] 12.0 mg/dL Normal 7.0-18.0 [facility] Comment on above: Performed By: #### B FRANKLYN, CMADM #### [facility] [address] [place] [address] Dr. Arielle Biswas Urea nitrogen/Creatinine [Mass ratio] 8.4 mg/mg Normal [facility] Comment on above: Performed By: #### B FRANKLYN, CMADM #### [facility] [address] [place] [address] Dr. Arielle Biswas PROTIMEon 07-14-2021 INR Coag (PPP) [Relative time] 0.99 {INR} Normal [facility] Comment on above: Performed By: #### P TT, PT #### [facility] [address] [place] [address] Dr. Arielle Biswas INR GUIDELINES SEE BELOW Normal [facility] Comment on above: Result Comment: YANG RED INR: 2.0 - 3.0 CONDITIONS NOT LISTED BELOW 2.5 - 3.5 FOR PROSTHETIC HEART VALVE REPLACEMENT 2.5 - 3.5 RECURRENT THROMBOSIS Performed By: #### P TT, PT #### [facility] [address] [address] [address] Arielle Biswas PT Coag (PPP) [Time] 10.7 s Normal 9.0-11.6 [facility] Comment on above: Performed By: #### P TT, PT #### [facility] [address] [address] [address] Arielle Biswas PTTon 07-14-2021 aPTT Coag (Bld) [Time] 26.6 s Normal 22.3-36.2 [facility] Comment on above: Performed By: #### P TT, PT #### [facility] [address] [place] [address] Dr. Arielle Biswas Tobacco Screening.on Fall risk assessment a) No falls within the last year [facility] [address] DO Work Phone: [phone] Tobacco use status CP b) No [facility] [address] DO Work Phone: Tobacco Screening. Yes [facility] [address] DO Work Phone: Tobacco Screening.on Fall risk assessment a) No falls within the last year [facility] [address] DO Work Phone: Tobacco use status CP b) No [facility] [address] DO Work Phone: Tobacco Screening.on Fall risk assessment a) No falls within the last year [facility] [address] DO Work Phone: Tobacco use status CPHS b) No [facility] [address] DO Work Phone: Vital Signs Date Time Vital Sign Value Performing Clinician Facility 08-21-2023 [id number] Body height 175.26 cm MD Carmen Witt Work Phone: [facility] 08-21-2023 11:11-0400 Body mass index (BMI) [Ratio] 29.9 kg/m2 MD Carmen Witt Work Phone: [facility] 08-21-2023 11:11-0400 Body temperature 96.1 [degF] MD Carmen Witt Work Phone: [facility] 08-21-2023 11:11-0400 Body weight 92.07 kg MD Carmen Witt Work Phone: [facility] 08-21-2023 11:11-0400 Diastolic blood pressure 80 mm[Hg] MD Carmen Witt Work Phone: [facility] 08-21-2023 11:11-0400 Heart rate 77 /min MD Carmen Witt Work Phone: [facility] 08-21-2023 11:11-0400 SaO2% (BldA) [Mass fraction] 97 % MD Carmen Witt Work Phone: [facility] 08-21-2023 11:11-0400 Systolic blood pressure 140 mm[Hg] MD Carmen Witt Work Phone: [facility] 04-09-2023 10:04-0500 Body height 175.26 cm MD Jean Nicholson Work Phone: [facility] 04-09-2023 10:04-0500 Body mass index (BMI) [Ratio] 29.9 kg/m2 MD Jean Nicholson Work Phone: [facility] 04-09-2023 10:04-0500 Body temperature 96.7 [degF] MD Jean Nicholson Work Phone: [facility] 04-09-2023 10:04-0500 Body weight 92.07 kg MD Jean Nicholson Work Phone: [facility] 04-09-2023 10:04-0500 Diastolic blood pressure 93 mm[Hg] MD Jean Nicholson Work Phone: [facility] 04-09-2023 10:04-0500 Heart rate 98 /min MD Jean Nicholson Work Phone: [facility] 04-09-2023 10:04-0500 Respiratory rate 20 /min MD Jean Nicholson Work Phone: [facility] 04-09-2023 10:04-0500 SaO2% (BldA) [Mass fraction] 100 % MD Jean Nicholson Work Phone: [facility] 04-09-2023 10:04-0500 Systolic blood pressure 152 mm[Hg] MD Jean Nicholson Work Phone: [facility] 12-23-2022 10:50-0400 Blood Pressure Location Marinoantoinette SPEAR [facility] 12-23-2022 10:50-0400 Diastolic blood pressure 62 mm[Hg] Marino SPEAR [facility] 12-23-2022 10:50-0400 Heart rate 69 /min Marino SPEAR [facility] 12-23-2022 10:50-0400 Respiratory rate 16 /min Marino SPEAR [facility] 12-23-2022 10:50-0400 Systolic blood pressure 95 mm[Hg] Marino SPEAR [facility] 11-07-2022 10:56-0400 Body temperature 98.6 [degF] [...] Body height 175.26 cm Danna Violeta Other [employer] [employer] Other 10-30-2022 10:00-0400 Body mass index (BMI) [Ratio] 30.27 kg/m2 Danna Violeta Other [employer] Other 10-30-2022 10:00-0400 Body temperature 97 [degF] Danna Violeta Other [employer] Other 10-30-2022 10:00-0400 Body weight 92.99 kg Danna Violeta Other [employer] Other 10-30-2022 10:00-0400 Diastolic blood pressure 75 mm[Hg] Danna Violeta Other [employer] Other 10-30-2022 10:00-0400 Respiratory rate 20 /min Danna Violeta Other [employer] Other 10-30-2022 10:00-0400 SaO2% (BldA) [Mass fraction] 96 % Danna Violeta Other [employer] Other 10-30-2022 10:00-0400 Systolic blood pressure 116 mm[Hg] Danna Violeta Other [employer] Other 08-23-2022 12:57-0400 Body height 175.26 cm Carmen Witt Work Phone: [facility] [place] Work Phone: 08-23-2022 12:57-0400 Body mass index (BMI) [Ratio] 30.57 kg/m2 Carmen Álvarez Hoy Work Phone: [facility] [place] Work Phone: 08-23-2022 12:57-0400 Body surface area Derived from formula 2.1 m2 Carmen Gloriay Work Phone: [facility] [place] Work Phone: 08-23-2022 12:57-0400 Body weight 93.9 kg Carmen Witt Work Phone: [facility] [place] Work Phone: 08-20-2022 11:30-0400 Body height 175.26 cm Danna Violeta Other [employer] Other 08-20-2022 11:30-0400 Body mass index (BMI) [Ratio] 30.42 kg/m2 Danna Violeta Other [employer] Other 08-20-2022 11:30-0400 Body temperature 96.8 [degF] Danna Violeta Other [employer] Other 08-20-2022 11:30-0400 Body weight 93.44 kg Danna Violeta Other [employer] Other 08-20-2022 11:30-0400 Diastolic blood pressure 80 mm[Hg] Danna Violeta Other [employer] Other 08-20-2022 11:30-0400 Respiratory rate 20 /min Danna Violeta Other [employer] Other 08-20-2022 11:30-0400 SaO2% (BldA) [Mass fraction] 97 % Danna Violeta Other [employer] Other 08-20-2022 11:30-0400 Systolic blood pressure 142 mm[Hg] Danna Violeta Other [employer] Other 08-15-2022 09:30-0400 Body height 175.26 cm Biankaomar Garcia Other [employer] Other 08-15-2022 09:30-0400 Body mass index (BMI) [Ratio] 30.57 kg/m2 Bianka Garcia Other [employer] Other 08-15-2022 09:30-0400 Body temperature 96.7 [degF] Biankaomar Garcia Other [employer] Other 08-15-2022 09:30-0400 Body weight 93.9 kg Bianka Jose Other [employer] Other 08-15-2022 09:30-0400 Diastolic blood pressure 70 mm[Hg] Bianka Garcia Other [employer] Other 08-15-2022 09:30-0400 SaO2% (BldA) [Mass fraction] 98 % Bianka Garcia Other [employer] Other 08-15-2022 09:30-0400 Systolic blood pressure 118 mm[Hg] Bianka Garcia Other [employer] Other 06-04-2022 11:33-0400 Body height 175.26 cm Carmen M Hoy Work Phone: [facility] [address] DO Work Phone: 06-04-2022 11:33-0400 Body mass index (BMI) [Ratio] 30.13 kg/m2 Carmen M Hoy Work Phone: [facility] [address] DO Work Phone: 06-04-2022 11:33-0400 Body surface area Derived from formula 2.08 m2 Carmen M Hoy Work Phone: [facility] [facility] DO Work Phone: 06-04-2022 11:33-0400 Body weight 92.53 kg Carmen M Hoy Work Phone: [facility] [address] DO Work Phone: 06-04-2022 11:33-0400 Diastolic blood pressure 72 mm[Hg] Carmen M Hoy Work Phone: [facility] [facility] DO Work Phone: 06-04-2022 11:33-0400 Heart rate 68 /min Carmen M Hoy Work Phone: [facility] [facility] DO Work Phone: 06-04-2022 11:33-0400 Systolic blood pressure 110 mm[Hg] Carmen M Hoy Work Phone: [facility] [facility] DO Work Phone: 02-05-2022 15:30-0500 Body height 175.26 cm Danna Mcdaniel Other [facility] [employer] Other 02-05-2022 15:30-0500 Body mass index (BMI) [Ratio] 29.97 kg/m2 Danna Violeta Other [employer] Other 02-05-2022 15:30-0500 Body temperature 98.4 [degF] Danna Violeta Other [employer] Other 02-05-2022 15:30-0500 Body weight 92.08 kg Danna Violeta Other [employer] Other 02-05-2022 15:30-0500 Diastolic blood pressure 83 mm[Hg] Danna Violeta Other [employer] Other 02-05-2022 15:30-0500 Respiratory rate 20 /min Danna Violeta Other [employer] Other 02-05-2022 15:30-0500 SaO2% (BldA) [Mass fraction] 96 % Danna Violeta Other [employer] Other 02-05-2022 15:30-0500 Systolic blood pressure 143 mm[Hg] Danna Violeta Other [employer] Other 12-11-2021 11:39-0400 Body height 175.26 cm Jean Saeed [employer] Work Phone: [employer] [place] Work Phone: 12-11-2021 11:39-0400 Body mass index (BMI) [Ratio] 30.72 kg/m2 Jean Saeed [employer] Phone: [employer] DO Work Phone: 12-11-2021 11:39-0400 Body surface area Derived from formula 2.1 m2 Jean Saeed [place] [employer] Work Phone: [employer] [place] Work Phone: 12-11-2021 11:39-0400 Body weight 94.35 kg Jean Saeed [employer] Work Phone: [facility] [employer] [facility] DO Work Phone: 12-11-2021 11:39-0400 Diastolic blood pressure 72 mm[Hg] Jean Saeed Naderer Work Phone: [facility] [employer] [facility] DO Work Phone: 12-11-2021 11:39-0400 Heart rate 72 /min Jena Saeed Naderer Work Phone: [facility] [employer] [facility] DO Work Phone: 12-11-2021 11:39-0400 Systolic blood pressure 124 mm[Hg] Jean Saeed Naderer Work Phone: [facility] [employer] 250 DO Work Phone: 08-21-2021 15:00-0400 Body height 175.26 cm Danna Violeta Other [employer] Other 08-21-2021 15:00-0400 Body mass index (BMI) [Ratio] 28.35 kg/m2 Danna Violeta Other [employer] Other 08-21-2021 15:00-0400 Body temperature 97.5 [degF] Danna Violeta Other [employer] Other 08-21-2021 15:00-0400 Body weight 87.09 kg Danna Violeta Other [employer] Other 08-21-2021 15:00-0400 Diastolic blood pressure 70 mm[Hg] Danna Violeta Other [employer] Other 08-21-2021 15:00-0400 Respiratory rate 20 /min Danna Violeta Other [employer] Other 08-21-2021 15:00-0400 SaO2% (BldA) [Mass fraction] 94 % Danna Violeta Other [employer] Other 08-21-2021 15:00-0400 Systolic blood pressure 110 mm[Hg] Danna Violeta Other [employer] Other 08-15-2021 11:30-0400 Body height 175.26 cm Julian Matthews Other [employer] Other 08-15-2021 11:30-0400 Body mass index (BMI) [Ratio] 28.06 kg/m2 Julian Matthews Other [employer] Other 08-15-2021 11:30-0400 Body temperature 97.5 [degF] Julian Matthews Other [employer] Other 08-15-2021 11:30-0400 Body weight 86.18 kg Julian Matthews Other [employer] Other 08-15-2021 11:30-0400 Diastolic blood pressure 68 mm[Hg] Julian Matthews Other [employer] Other 08-15-2021 11:30-0400 SaO2% (BldA) [Mass fraction] 98 % Julian Matthews Other [employer] Other 08-15-2021 11:30-0400 Systolic blood pressure 102 mm[Hg] Julian Matthews Other [employer] Other 08-02-2021 08:32-0400 Body height 175.26 cm Jean A Naderer Work Phone: [facility] [facility] DO Work Phone: 08-02-2021 08:32-0400 Body mass index (BMI) [Ratio] 28.8 kg/m2 Jean A Naderer Work Phone: [facility] [facility] DO Work Phone: 08-02-2021 08:32-0400 Body surface area Derived from formula 2.04 m2 Jean A Naderer Work Phone: [facility] [facility] DO Work Phone: 08-02-2021 08:32-0400 Body weight 88.45 kg Jean A Naderer Work Phone: [facility] [facility] DO Work Phone: 08-02-2021 08:32-0400 Diastolic blood pressure 62 mm[Hg] Jean A Naderer Work Phone: [facility] [facility] DO Work Phone: 08-02-2021 08:32-0400 Heart rate 68 /min Jean A Naderer Work Phone: [facility] [facility] DO Work Phone: 08-02-2021 08:32-0400 Systolic blood pressure 108 mm[Hg] Jean A Naderer Work Phone: [facility] [facility] DO Work Phone: 07-14-2021 00:00-0400 60 1 Jean A Naderer Work Phone: [facility] [facility] DO Work Phone: Comment on above: [id number] 04-30-2021 13:22-0500 Body height 175.26 cm Jean A Naderer Work Phone: [facility] [facility] DO Work Phone: 04-30-2021 13:22-0500 Body mass index (BMI) [Ratio] 29.45 kg/m2 Jean Saeed Naderer Work Phone: [facility] [facility] DO Work Phone: 04-30-2021 13:22-0500 Body surface area Derived from formula 2.06 m2 Jean Saeed Naderer Work Phone: [facility] [facility] DO Work Phone: 04-30-2021 13:22-0500 Body weight 90.45 kg Jean Saeed Naderer Work Phone: [facility] [facility] DO Work Phone: 04-30-2021 13:22-0500 Diastolic blood pressure 90 mm[Hg] Jean Saeed Naderer Work Phone: [facility] [facility] DO Work Phone: 04-30-2021 13:22-0500 Heart rate 69 /min Jean Mejiaerer Work Phone: [facility] [facility] DO Work Phone: 04-30-2021 13:22-0500 Systolic blood pressure 134 mm[Hg] Jean Christophe Naderer Work Phone: [facility] [facility] DO Work Phone: 02-20-2021 14:06-0500 Body height 175.26 cm Jean Saeed Naderer Work Phone: [facility] [facility] DO Work Phone: 02-20-2021 14:06-0500 Body mass index (BMI) [Ratio] 29.98 kg/m2 Jean Christophe Naderer Work Phone: [facility] [facility] DO Work Phone: 02-20-2021 14:06-0500 Body surface area Derived from formula 2.08 m2 Jean A Naderer Work Phone: [facility] [facility] DO Work Phone: 02-20-2021 14:06-0500 Body weight 92.08 kg Jean A Naderer Work Phone: [facility] [facility] DO Work Phone: 02-20-2021 14:06-0500 Diastolic blood pressure 76 mm[Hg] Jean A Naderer Work Phone: [facility] [facility] DO Work Phone: 02-20-2021 14:06-0500 Heart rate 80 /min Jean A Naderer Work Phone: [facility] [facility] DO Work Phone: 02-20-2021 14:06-0500 Systolic blood pressure 110 mm[Hg] Jean A Naderer Work Phone: [facility] [facility] DO Work Phone: 02-06-2021 16:10-0500 Diastolic blood pressure 84 mm[Hg] Jean A Naderer Work Phone: [facility] [facility] DO Work Phone: 02-06-2021 16:10-0500 Systolic blood pressure 130 mm[Hg] Jean A Naderer Work Phone: [facility] [facility] DO Work Phone: 02-06-2021 15:37-0500 Body height 175.26 cm Jean A Naderer Work Phone: [facility] [facility] DO Work Phone: 02-06-2021 15:37-0500 Body mass index (BMI) [Ratio] 30.13 kg/m2 Jean Saeed Naderer Work Phone: [facility] [facility] DO Work Phone: 02-06-2021 15:37-0500 Body surface area Derived from formula 2.08 m2 Jean Saeed Naderer Work Phone: [facility] [employer] [facility] DO Work Phone: 02-06-2021 15:37-0500 Body weight 92.53 kg Jean Saeed Naderer Work Phone: [facility] [facility] DO Work Phone: 02-06-2021 15:37-0500 Diastolic blood pressure 90 mm[Hg] Jean Saeed Naderer Work Phone: [facility] [employer] [facility] DO Work Phone: 02-06-2021 15:37-0500 Heart rate 125 /min Jean Saeed Naderer Work Phone: [facility] [facility] DO Work Phone: 02-06-2021 15:37-0500 Systolic blood pressure 128 mm[Hg] Jean Saeed Naderer Work Phone: [facility] [employer] [facility] DO Work Phone: 11-30-2020 11:30-0400 Body height 175.26 cm Danna Violeta Other [employer] Other 11-30-2020 11:30-0400 Body mass index (BMI) [Ratio] 29.68 kg/m2 Danna Violeta Other [employer] Other 11-30-2020 11:30-0400 Body weight 91.17 kg Danna Violeta Other [employer] Other 11-30-2020 11:30-0400 Diastolic blood pressure 83 mm[Hg] Danna Violeta Other [facility] Other 11-30-2020 11:30-0400 Respiratory rate 20 /min Danna Violeta Other [employer] Other 11-30-2020 11:30-0400 SaO2% (BldA) [Mass fraction] 98 % Danna Violeta Other [facility] Other 11-30-2020 11:30-0400 Systolic blood pressure 126 mm[Hg] Danna Violeta Other [employer] Other Encounters Encounter Date Encounter Type Care Provider Facility Start: 12-26-2023 ambulatory Marino Colmenares ty:[facility] Start: 09-22-2023 End: 09-22-2023 ambulatory Maribell Leigh MD Facility:[facility] Start: 08-21-2023 End: 08-21-2023 ambulatory MD Carmen Witt Work Phone: [facility] Work Phone: Start: 08-21-2023 End: 08-21-2023 Patient encounter procedure MD Carmen Witt Work Phone: [facility] Work Phone: Start: 06-03-2023 End: 06-04-2023 ambulatory CURTIS MELÉNDEZ [facility] Start: 06-03-2023 End: 06-03-2023 Office outpatient visit 15 minutes Curtis Meléndez MD Work Phone: [facility] Comment on above: Low back pain, unspe cified back pain laterality, unspecified chronicity, unspecified whether sciatica present (Primary Dx); Lumbar pain Start: 06-03-2023 End: 06-03-2023 Subsequent hospital visit by physician Serene Ayers101 X-Ray 2 [facility] Comment on above: Lumbar pain Start: 05-19-2023 End: 05-19-2023 ambulatory Maribell Leigh MD Facility: [facility] Start: 04-14-2023 End: 04-14-2023 Patient encounter procedure MD Jean Nicholson Work Phone: [facility] [place] Work Phone: Start: 04-14-2023 End: 04-14-2023 ambulatory MD Jean Nicholson Work Phone: [facility] Work Phone: Start: 04-09-2023 End: 04-09-2023 ambulatory MD Jean Nicholson Work Phone: [facility] Work Phone: Start: 04-09-2023 End: 04-09-2023 Patient encounter procedure MD Jean Nicholson Work Phone: [facility] Work Phone: Start: 04-07-2023 End: 04-07-2023 ambulatory Maribell Leigh MD Facility:[facility] Start: 03-24-2023 End: 03-24-2023 ambulatory Maribell Leigh MD Facility: [facility] Start: 03-04-2023 End: 03-04-2023 Patient encounter procedure MD Jean Nicholson Work Phone: [facility] Work Phone: Start: 03-04-2023 End: 03-04-2023 ambulatory MD Jean Nicholson Work Phone: [facility] Work Phone: Start: 02-28-2023 End: 03-01-2023 ambulatory CURTIS MELÉNDEZ [facility] Start: 02-28-2023 End: 02-28-2023 Office outpatient visit 15 minutes Curtis Meléndez MD Work Phone: [facility] Comment on above: Low back pain, unspe cified back pain laterality, unspecified chronicity, unspecified whether sciatica present (Primary Dx) Start: 12-23-2022 End: 12-24-2022 ambulatory Marino SPEAR Facility:[facility] Start: 12-23-2022 End: 12-23-2022 Patient encounter procedure Marino SPEAR [facility] Start: 12-09-2022 End: 12-09-2022 ambulatory [facility]ulatory Start: 11-19-2022 Patient encounter procedure Carmen Witt Work Phone: [facility] Work Phone: Start: 11-19-[address] Curtis Meléndez Facility:[id number] Start: 11-04-2022 End: 11-07-2022 Evaluation and management of inpatient Curtis Miller [id number] Start: 10-30-2022 End: 10-30-2022 ambulatory Danna Violeta Other [employer] Other Start: 10-30-2022 Office outpatient vi sit 25 minutes Danna Violeta [facility] Start: 10-22-2022 Patient encounter procedure Carmen Witt Work Phone: [facility] [place] Work Phone: Start: 10-22-[address] Curtis Meléndez Facility:[id number] Start: 10-22-2022 Encounter for other preprocedural examination Dr. Curtis Meléndez [facility] Start: 10-21-[address] Carmen Witt Facility:[id number] Start: 10-21-2022 Encounter for preprocedural cardiovascular examination Dr. Curtis Meléndez [facility] Start: 10-21-2022 Encounter for preprocedural laboratory examination Dr. Curtis Meléndez [facility] Start: 09-19-2022 Patient encounter procedure Carmen Witt Work Phone: [facility] Work Phone: Start: 09-19-[address] Carmen Witt Facility:[id number] Start: 08-23-2022 Chart Update Carmen Witt Work Phone: [facility] Work Phone: Start: 08-23-2022 Patient encounter procedure Carmen Witt Work Phone: [facility] Work Phone: Start: 08-23-[address] Carmen Witt Facility:[id number] Start: 08-20-2022 End: 08-20-2022 ambulatory Danna Violeta Other [facility] Other Start: 08-20-2022 Office outpatient vi sit 25 minutes Danna Violeta [facility] Start: 08-15-2022 End: 08-15-2022 Patient encounter procedure Bianka Garcia [facility] V[facility] Surgery Start: 08-15-2022 End: 08-15-2022 ambulatory MD Jean Nicholson Work Phone: [facility] Other Start: 07-31-2022 Chart Update Carmen Witt Work Phone: [facility] 250 DO Work Phone: Start: 07-31-[address] Cecilio Go Facility:[id number] Start: 07-02-2022 End: 07-03-[address] IRAIS LORENZANA Facility:H1 Start: 06-05-2022 AUDIT Carmen Witt Work Phone: [facility] Work Phone: Start: 06-04-2022 Patient encounter procedure Carmen Witt Work Phone: [facility] DO Work Phone: Start: 06-04-[address] Carmen Witt Facility: Start: 05-09-2022 End: 05-10-2022 ambulatory LAUREN BAUMANN . Facility:H1 Start: 04-19-2022 Rx Renewal Jean Nicholson Work Phone: [facility] DO Work Phone: Start: 02-18-2022 End: 02-19-[address] BRITANY TSANG Facility:H1 Start: 02-07-2022 End: 02-08-2022 ambulatory LAUREN BAUMANN . Facility:H1 Start: 02-05-2022 End: 02-05-2022 ambulatory Danna Violeta Other [facility] [employer] Other Start: 02-05-2022 Office outpatient vi sit 25 minutes Danna Violeta [facility] Start: 12-20-2021 End: 12-21-[address] MARINO SPEAR . Facility:H1 Start: 12-11-2021 Office outpatient vi sit 25 minutes Jean Nicholson [facility]: [facility] Work Phone: Start: 12-11-[address] Jean Nicholson Facility: Start: 11-27-2021 End: 11-28-[address] LORENA ANDERSON . Facility:H1 Start: 11-27-2021 Rx Renewal Jean Nicholson Work Phone: [facility] DO Work Phone: Start: 11-05-2021 End: 11-06-[address] BRITANY TSANG Facility:H1 Start: 10-17-2021 End: 10-18-[address] CARMEN WITT . Facility:H1 Start: 10-12-2021 Rx Renewal Jean Nicholson Work Phone: [facility] 250 DO Work Phone: Start: 10-09-2021 End: 10-10-2021 ambulatory KATHERINE MARTINEZ Facility:H1 Start: 08-30-2021 End: 08-31-2021 ambulatory LAUREN BAUMANN . Facility:H1 Start: 08-21-2021 End: 08-21-2021 ambulatory Danna Violeta Other [facility] Other Start: 08-21-2021 Office outpatient vi sit 25 minutes Danna Violeta [facility] Start: 08-16-2021 End: 08-16-2021 ambulatory Bianka Garcia Other [facility] Other Start: 08-16-2021 Telephone encounter Bianka Lira [facility] Start: 08-15-2021 End: 08-15-2021 ambulatory Julian Matthews Other [facility] Other Start: 08-15-2021 Office outpatient vi sit 25 minutes Julian Matthews [facility] Start: 08-02-2021 Office outpatient vi sit 25 minutes Jean A Naderer Work Phone: [facility] 250 DO Work Phone: Start: 07-20-2021 End: 07-20-2021 ambulatory Bianka Garcia Other [facility] Other Start: 07-20-2021 Telephone encounter Bianka Lira [facility] Start: 07-14-2021 End: 07-14-2021 ambulatory CYNDI SYED Facility:H1 Start: 04-30-2021 Office outpatient vi sit 25 minutes Jean A Naderer Work Phone: [facility] 250 DO Work Phone: Start: 03-26-2021 Rx Renewal Jean A [facility]aderer Work Phone: [facility] Work Phone: Start: 02-20-2021 Patient encounter procedure Jean A Naderer Work Phone: [facility] 250 DO Work Phone: Start: 11-30-2020 Office [...] above: Performed By: #### P SAD #### [facility] [address] [place] [address] Dr. Arielle Biswas Start: 07-14-2021 Operation for [...] Jean A Naderer Work Phone: Prostatectomy Jean Saeed Naderer Work Phone: Tonsillectomy and adenoidectomy Jean Saeed Naderer Work Phone: Tooth extraction Marino LIANG Plan of Treatment Date Care Activity Detail Author Start: 01-03-2025 Pneumococcal Vaccine : 65+ Years (3 - PPSV23 or PCV20) Pneumococcal Vaccine: 65+ Years (3 - PPSV23 or PCV20) [facility] Start: 01-03-2025 Pneumococcal Vaccine : 65+ Years (3 of 3 - PPSV23 or PCV20) Pneumococcal Vaccine: 65+ Years (3 of 3 - PPSV23 or PCV20) [facility] Start: 12-05-2023 End: 12-05-2023 Patient encounter procedure 12/05/2023 1:30 PM EDT Office Visit [facility] [address] [phone] Curtis Meléndez MD [address] [facility], [address] [place] [address] [facility] Start: 06-17-2023 End: 06-17-2023 Patient encounter procedure 06/17/2023 10:20 AM EDT Office Visit [facility] [address] [facility] [address] [place] [address] Cecilio Go MD [address] [facility] [address] [place] [address] [facility] Start: 04-14-2023 CT Chest WO contrast [facility] Start: 04-14-2023 CT of chest without contrast CT chest wo con high res [facility] Start: 02-28-2023 End: 02-29-2024 XR Lumbar spine 2 or 3 Views [facility] Service Area Work Phone: Comment on above: Expected: 02/28/2023 , Expires: 02/29/2024 Start: 12-10-2022 FUV, Provider: Cecilio Go, Status: Pen, Time: 11:10 AM FUV, Provider: Cecilio Go, Status: Pen, Time: 11:10 AM [facility] 250 DO Work Phone: Start: 12-09-2022 FUV, Provider: Cecilio Go, Status: Pen, Time: 3:00 PM FUV, Provider: Cecilio Go, Status: Pen, Time: 3:00 PM [facility] Work Phone: Start: 12-09-2022 Patient encounter procedure [facility] [place] Start: 11-19-2022 Patient encounter procedure [facility] Start: 11-19-2022 POV, Provider: Curtis Meléndez, Status: Pen, Time: 1:30 PM POV, Provider: Curtis Meléndez, Status: Pen, Time: 1:30 PM [facility] Work Phone: Start: 11-05-2022 End: 11-05-2023 St. [...] Do NOT use with Senokot. Start: 11-04-2022 [facility], Provider: Curtis Meléndez, Status: Pen, Time: 7:30 AM [facility], Provider: Curtis Meléndez, Status: Pen, Time: 7:30 AM [facility] Work Phone: Start: 10-25-2022 COVID-19 Vaccine ( season) COVID-19 Vaccine ( season) [facility] Start: 10-22-2022 [facility], Provider: Curtis eMléndez, Status: Pen, Time: 1:30 PM [facility], Provider: Curtis Meléndez, Status: Pen, Time: 1:30 PM [facility] Work Phone: Start: 09-24-2022 FUV, Provider: Curtis Meléndez, Status: Pen, Time: 1:30 PM FUV, Provider: Curtis Meléndez, Status: Pen, Time: 1:30 PM [facility] Work Phone: Start: 08-23-2022 NPV, Provider: Curtis Meléndez, Status: Pen, Time: 1:15 PM NPV, Provider: Curtis Meléndez, Status: Pen, Time: 1:15 PM [facility] 250 DO Work Phone: Start: 08-15-2022 US scan of aorta US aorta [facility] Start: 08-15-2022 US Thoracic and abdominal aorta [facility] Start: 08-08-2022 ambulatory Ambulatory Facility:H 1 Start: 07-31-2022 AOILIVC, Provider: FRANKIE KEE ULTRASOUND 01,[id number], Status: Pen, Time: 1:30 PM AOILIVC, Provider: FRANKIE LOYAI ULTRASOUND 01,[id number], Status: Pen, Time: 1:[address] [facility] Work Phone: Start: 06-04-2022 FUV, Provider: Cecilio Go, Status: Pen, Time: 11:30 AM FUV, Provider: Cecilio Go, Status: Pen, Time: 11:30 AM [facility] Work Phone: Start: 02-06-2022 FUV, Provider: Cecilio Go, Status: Pen, Time: 8:50 AM FUV, Provider: Cecilio Go, Status: Pen, Time: 8:50 AM [facility] 250 DO Work Phone: Start: 12-11-2021 FUV, Provider: Cecilio Go, Status: Pen, Time: 11:20 AM FUV, Provider: Cecilio Go, Status: Pen, Time: 11:20 AM [facility] 250 DO Work Phone: Start: 04-30-2021 FUV, Provider: Cecilio Go, Status: Pen, Time: 1:20 PM FUV, Provider: Cecilio Go, Status: Pen, Time: 1:20 PM [facility] 250 DO Work Phone: Start: 02-15-2021 COVID-19 Vaccine (4 - Moderna series) COVID-19 Vaccine (4 - Moderna series) [facility] Start: 10-18-2005 Zoster Vaccines (1 o f 2) Zoster Vaccines (1 of 2) [facility] Start: 10-18-1977 DTaP/Tdap/Td Vaccine s (1 - Tdap) DTaP/Tdap/Td Vaccines (1 - Tdap) [facility] Start: 10-18-1973 Diabetes mellitus screening Diabetes Screening [facility] Start: 10-18-1973 Hepatitis C screening Hepatitis C Sc reening [facility] Start: 1955 Lipid panel Lipid Panel [facility] Start: 1955 Medicare Annual Wellness Visit Medicare Annual Wellness Visit (AWV) [facility] Start: 1955 Screening for malignant neoplasm of colon [facility] Immunizations Immunization Date Immunization Notes Care Provider Rhys estevez 11-06-2022 influenza, high dose seasonal, preservative-free Carmen Witt Other Phone: [facility] 12-26-2021 Fluad Quadrivalent 0 .5 ML Intramuscular Prefilled Syringe Jean Nicholson Work Phone: [facility] 250 DO Work Phone: 12-26-2021 influenza, seasonal, injectable Curtis Meléndez MD Work Phone: [facility] Work Phone: 12-21-2020 [employer] COVID-19 Vacc 30 MCG/0.3ML Intramuscular Suspension Jean Christophe Jackieiwonayrn Work Phone: [facility] 12-21-2020 pneumococcal conjuga te vaccine, 13 valent Jean Christophe Gina Work Phone: [facility] 12-21-2020 zoster vaccine recombinant Jean Nicholson Work Phone: [facility] Work Phone: 12-21-2020 zoster vaccine, unspecified formulation Curtis Meléndez MD Work Phone: [facility] Work Phone: 12-10-2020 Fluad Quadrivalent 0 .5 ML Intramuscular Prefilled Syringe Jean Christophe Gina Work Phone: [facility] [employer] DO Work Phone: 12-10-2020 influenza, seasonal, injectable Curtis Meléndez MD Work Phone: [facility] Work Phone: 06-21-2020 COVID-19 Vaccine Moderna - Documentation Purposes Only [employer] Other [employer] [facility] [employer] Other 05-09-2020 COVID-19 Vaccine Moderna - Documentation Purposes Only Danna Violeta Other [facility] [employer] Other 01-04-2020 influenza, injectabl e, quadrivalent, preservative free Jean Saeed Jackieiwonayrn Work Phone: [facility] 250 DO Work Phone: 01-04-2020 influenza, seasonal, injectable Curtis Meléndez MD Work Phone: [facility] Work Phone: 01-04-2020 pneumococcal polysaccharide vaccine, 23 valent Jean Harrisr Work Phone: [facility] 12-20-2019 influenza, seasonal, injectable Jean Harrisr Work Phone: [facility] 10-25-2018 influenza, injectabl e, quadrivalent, preservative free Curtis Meléndez MD Work Phone: [facility] Work Phone: 10-25-2018 influenza, seasonal, injectable Jean Harrisr Work Phone: [facility] 250 DO Work Phone: 11-24-2017 influenza virus vaccine, unspecified formulation Jean Harrisr Work Phone: [facility] 250 DO Work Phone: 02-25-2016 pneumococcal polysaccharide vaccine, 23 valent Jean Nicholson Work Phone: [facility] Payers Date Payer Category Payer Medicare 2022 Self-pay [id number] 2022 Unknown 2020 Unknown [id number] . [id number] 2020 Unknown [id number] 1959 Unknown [id number] 1955 Unknown [id number] 2.16.84 0.1.031048.3.579.2.593 1955 Unknown [id number] 2.16.84 0.1.167832.3.579.2.593 1955 Unknown [id number] 2.16.84 0.1.527423.3.579.2.593 1955 Unknown [id number] 2.16.84 0.1.065628.3.579.2.593 1955 Unknown [id number] 2.16.84 0.1.808843.3.579.2.593 1955 Unknown [id number] 2.16.84 0.1.365248.3.579.2.593 1955 Unknown [id number] 2.16.84 0.1.179533.3.579.2.593 1955 Unknown [id number] 2.16.84 0.1.422783.3.579.2.593 1955 Unknown [id number] 2.16.84 0.1.564336.3.579.2.593 1955 Unknown [id number] 2.16.84 0.1.198143.3.579.2.593 1955 Unknown [id number] 2.16.84 0.1.186858.3.579.2.593 1955 Unknown [id number] 2.16.84 0.1.607332.3.579.2.593 1955 Unknown [id number] 2.16. 840.1.940945.3.579.2.356 1955 Unknown [id number] 2.16. 840.1.087281.3.579.2.356 1955 Unknown [id number] 2.16.8 40.1.810305.3.579.2.1244 1955 Unknown [id number] 2.16.8 40.1.486265.3.579.2.1068 1955 Unknown [id number] 2.16.8 40.1.495804.3.579.2.1068 1955 Unknown [id number] 2.16.8 40.1.609352.3.579.2.1068 1955 Unknown [id number] 2.16.8 40.1.745284.3.579.2.1068 1955 Unknown [id number] 2.16.8 40.1.451248.3.579.2.1068 1955 Unknown [id number] 2.16.8 40.1.407130.3.579.2.8 1955 Unknown [id number] 2.16.8 40.1.805132.3.579.2.8 1955 Unknown [id number] 2.16.8 40.1.589012.3.579.2.727 1955 Unknown [id number] 2.16.8 40.1.928983.3.579.2.727 1955 Unknown [id number] 2.16.84 0.1.958431.3.579.2.6 1955 Unknown [id number] 2.16.84 0.1.782810.3.579.2.6 1955 Unknown [id number] 2.16.84 0.1.280851.3.579.2.6 1955 Unknown [id number] 2.16.84 0.1.572168.3.579.2.6 1955 Unknown [id number] 2.16. 840.1.113451.3.579.2.196 1955 Unknown [id number] 2.16. 840.1.873268.3.579.2.196 1955 Unknown [id number] 2.16. 840.1.335384.3.579.2.196 1955 Unknown [id number] 2.16. 840.1.088848.3.579.2.196 Medicare [id number] 2.1 6.840.1.055524.19 Medicare [place] [facility] PFFS [id number] Medicare [id number] Unknown [id number] 2.16.8 40.1.888556.3.579.2.531 Unknown [id number] 2.16.8 40.1.042808.3.579.2.531 Unknown [id number] 2.16.8 40.1.050806.3.579.2.531 Social History Date Type Detail Facility Start: 12-09-2022 Former smoker Former smoker -[facility] 250 DO Work Phone: Start: 12-09-2022 Sex Assigned At F [facility] Start: 07-14-2021 End: 12-09-2022 Tobacco smoking status NHIS Never smoked tobacco (finding) [facility] Start: 1955 Sex Assigned At Male F [facility] Tobacco smoking consumption unknown [facility] Start: 12-18-2020 End: 08-21-2023 Tobacco smoking status Ex-smoker (finding) [facility] Start: 12-09-2022 Tobacco use and exposure Smokeless tobacco non-user [facility] Work Phone: Start: 12-09-2022 Alcohol intake Lifetime non-d lalo (finding) [facility] Work Phone: Start: 1955 Sex Assigned At Not on file [facility] Work Phone: Start: 02-18-2023 End: 06-03-2023 Exposure to SARS-CoV-2 (event) Not sure [facility] Functional Status Date Assessment Result Facility 12-23-2022 Functional Status N/A [facility] [place] Functional observable [facility] Mental Status Date Assessment Result Facility 11-06-2022 Cognitive functions [id number]:[id number] [facility] Clinical Notes 11-30-2020 to 06-03-2023 Curtis [...] split dictation. -Nicolas Kohli PA-C In a card-vc-pfan encounter, I performed a history and physical [...] MD Orthopedic surgery documented in this encounter [facility] Work Phone: 02-28-2023 History of Present [...] portion of this split dictation. In a tbxm-dg-qngp encounter, I performed a history and physical [...] the lumbar spine. documented in this encounter [facility] Work Phone: 12-23-2022 Hospital Discharge instructions [...] treatment? Where to find more information [employer]: www.cancer.org [employer]: www.auanet.org Contact a health care [...] provider. Document Revised: 08/06/2021 Document Reviewed: 08/06/2021 [employer] Patient Education 2022 [employer]. Follow Up Care 12/21/2021 12:26:12 With:RAINER JIMENEZ, Marino Calabrese, URL Address: [facility] [address], [place] [address] [phone] When: Unknown Comments:1 yr w/ PSA [facility] 11-07-2022 Note Send Summary: Discharge Summary Providers: Provider RoleProvider Name Carmen Conner AttendingCurtis Meléndez Chirag PrimaryHoy, Douglas M Note Recipients: Curtis Meléndez MD - [id number] [Preferred] Carmen Witt MD - [id number] [] Cayden Flores MD Discharge: Summary: Admission Date: .04-Nov-2022 05:14:00 Discharge Date: 07-Nov-2022 Attending Physician at Discharge: Curtis Meléndez Admission Reason: Lumbar stenosis and spondylolisthesis(1) Final Discharge Diagnoses: Back pain Procedures: Date: 04-Nov-2022 13:07:00 Procedure Name: 1. 2. 3. 4. 5. Condition at Discharge: Satisfactory Disposition at Discharge: .Home Vital Signs: T PRBPMAPSpO2 [id number]% Date/Time11/07 8:5611/07 8:5611/07 8:5611/07 8:5611/06 21:0811/07 8:56 Range(36.7C - 37.1C ) (63 [...] please call ahead and schedule appointment Location: [address] [facility] Phone Number: [phone] Discharge Medications: Home Medication furosemide 20 mg [...] tab(s) orally once a day Potassium Chloride (Uya-Gmgp-Yyv 10) 10 mEq oral tablet, extended release [...] discharge: Full Code Electronic Signatures: Gilda Mcmahon (BUFFING AND SUEDING MACHINE OPERATOR-AIRCRAFT INSTRUMENT REPAIRER) (Signed 07-Nov-2022 09:26) Authored: Send Summary, Summary Content, Immunizations, Ongoing Care, DNR Status, Note Completion Last Updated: 07-Nov-2022 09:26 by Gilda Mcmahon (BUFFING AND SUEDING MACHINE OPERATOR-[facility]) References: 1. Data Referenced From Consult-General Internal Medicine 04-Nov-2022 16:29 [facility] 11-04-2022 Note Post Operative Note: Post-Procedure Diagnosis: Lumbar stenosis and spondylolisthesis Procedure: 1. 2. 3. 4. 5. Surgeon: Ángela Resident/Fellow/Other Assembler Clip On Sunglasses: Alice Estimated Blood Loss (mL): 100 cc Specimen: no Findings: Lumbar stenosis and spondylolisthesis Operative Report Dictated: Dictation: not applicable - note contains Operative Report Note Recipients: Curtis Meléndez MD - [id number] [Preferred] Carmen Witt MD - [id number] [] Operative Report: Preoperative diagnosis: L2-3 and [...] Curtis Meléndez M.D. Asst.: Sonu HillThe physician speech language pathology assistant was present through the entire case. Given the nature of the disease process and the procedure to be performed a skilled medical library assistant was necessary during the case. The speech language pathology assistant was necessary in order to hold retractors and directly assist in the operation. A certified pharmacy tech was at the back table managing instruments [...] Continue all recommendati on/medicatio ns per your Lighter Captain . Oct, ILD (interstitial lung disease) (ICD-10 - J84.9) Pulmonary Function Test as scheudled prior to next office appointment. [facility] Other 07-27-2023 History of Present illness NarrativeGarry [...] sweats. He has no bowel or bladder complaints.-[facility] Work Phone: 1(364) 615-480606-27-2023 Evaluation note* Encounter Date Diagnosis Assessment Notes Treatment Notes Treatment Clinical Notes Jul, Diastolic dysfunction (ICD-10 - I51.89) Jul, ILD (interstitial lung disease) (ICD-10 - J84.9) I reviewed results and images of your Chest CT completed at [facility] 10/2021 and 01/2022. There is evidence of very mild fibrosis (scarring). Continue with physcial activity as you are. [facility] Other 06-22-2023 Evaluation note* Encounter Date Diagnosis [...] agrees with plan, and denies any questions. [facility] Other 03-16-2023 NoteCONSULTATION CONSULTATION DATE: 05/09/2022 HISTORY: [...] is currently under the care of a oil well service operator. Most recent physician appointment does show that his lungs are slowly improving. He does have a Cardiology appointment on 06/13/2022, and at that time, he will discuss with the events associate regarding possible use of sedation and holding [...] otherwise indicated. Patient agrees with this care.[facility] [id number] NoteCONSULTATION CONSULTATION DATE: 02/07/2022 HISTORY OF PRESENT [...] still being followed up with Pulmonology in [facility] and, most recently, they feel he [...] up in three months, unless otherwise indicated.[facility] [id number] Evaluation note* Encounter Date Diagnosis Assessment Notes Treatment Notes Treatment Clinical Notes Jan, Diastolic dysfunction (ICD-10 - I51.89) Jan, ILD (interstitial lung disease) (ICD-10 - J84.9) I will look at Chest CT from [place] and let you know if any further testing is needed. Jan, Dyspnea (ICD-10 - R06.00) [facility] Other 10-04-2022 NoteCONSULTATION CONSULTATION DATE: 11/27/2021 CHIEF [...] is under the care of Dr. Go, events associate, who has suggested that the patient not hold the Eliquis for any treatment right now and, as such, we will maintain a conservative approach. IMPRESSION: As such, the patient's current working diagnosis is chronic low back pain, new diagnosis of cystic fibrosis. A recent CT of the lung was performed and the patient is under the care of [facility]. The patient is also under anticoagulation therapy. PLAN: We will refill the patient's Percocet 5/325 b.i.d. The patient will be returning in clinic as needed. The patient has had a rhizotomy, radiofrequency along the low back and, as such, is stable with regards to his low back.[facility] [id number] NoteCONSULTATION CONSULTATION DATE: 08/30/2021 This is a [...] past he had been diagnosed with an OH in addition to an aneurysm and cystic fibrosis. The patient was worked up in the emergency department and it was found that he had multiple PEs in his lungs and in his right lower leg. The patient was transferred to [facility] where the large PE was surgically removed. [...] be followed up in three months' time. [facility] Signed and Approved by: LAUREN BAUMANN . 09/06/2021 09:46:00[facility]06-28-2022 Evaluation note* Encounter Date Diagnosis Assessment [...] physcial activity....walk 3-4x a day to start. [facility] Other 06-22-2022 Evaluation note* Encounter Date Diagnosis [...] the plan all his questions were addressed. [facility] Other 10-07-2021 Evaluation note* Encounter Date Diagnosis [...] Nov, Other Try Mylanta for acid reflux. [facility] Other Evaluation + Plan note Future Appointments Appointment Date:12/26/2023 11:00:00 AM Scheduled Provider:Marino SPEAR MD Location:[facility] Appointment Type:URO Office Visit Diagnostic Tests Pending * PSA Total 12/23/22 [facility] evaluation noteNo InformationNort GI-View Other Evaluation noteNo assessment information available [facility] Work Phone: Evaluation note* Constitutional: Well [...] sciatica present- Primary documented in this encounter [facility] Work Phone: Evaluation note* Diagnosis Onset Date Resolution Status Grade I diastolic dysfunction acute Pulmonary fibrosis acute [facility] Work Phone: Evaluation note* Diagnosis Low back pain, unspecified back pain laterality, unspecified chronicity, unspecified whether sciatica present- Primary Lumbar pain Lumbago documented in this encounter [facility] Work Phone: Evaluation note* Diagnosis Lumbar pain Lumbago documented in this encounter [facility] Work Phone: Evaluation note* Diagnosis Onset Date Resolution Status AAA (abdominal aortic aneurysm) [facility] Work Phone: History general Narrative - Reported* Type Description Date Medical History COPD Medical History asthma Medical History sleep apnea (negative PSG) Medical History aaa Medical History pe Surgical History spine 2001 Surgical History neck 2003 Surgical History prostate biopsy 2017 Surgical History dental extraction Hospitalization History as above Hospitalization History pe 2021 [facility] general Narrative - Reported* Type Description Date Medical History NOEL Medical History COPD Medical History asthma Medical History sleep apnea Surgical History spine 2001 Surgical History neck 2004 Surgical History prostate biopsy 2017 Hospitalization History as above [facility] Other [facility] general Narrative - Reported* Type Description Date Medical History COPD Medical History asthma Medical History sleep apnea (negative PSG) Surgical History spine 2001 Surgical History neck 2004 Surgical History prostate biopsy 2017 Hospitalization History as above [facility] Other [facility] general Narrative - Reported* Type Description Date Medical History COPD Medical History asthma Medical History sleep apnea (negative PSG) Medical History aaa Medical History pulmonary embolism Surgical History spine 2001 Surgical History neck 2004 Surgical History prostate biopsy 2017 Surgical History dental extraction Hospitalization History as above Hospitalization History pulmonary embolism [facility] 06/2021 [facility] Other [facility] general Narrative - Reported* Type Description Date Medical History COPD Medical History asthma Medical History sleep apnea (negative PSG) Medical History aaa Medical History pulmonary embolism Medical History interstitial lung disease Medical History diastolic dysfunction Surgical History spine 2001 Surgical History neck 2004 Surgical History prostate biopsy 2017 Surgical History dental extraction Hospitalization History as above Hospitalization History pulmonary embolism [facility] 06/2021 [facility] Other History of Present illness NarrativeGarry is a new patient to us, new [...] to the pain management center down in [place].[facility] Work Phone: Hospital course Narrative No data available for this section [facility] Hospital Discharge instructions* Activity:activity as tolerated. [...] ahead and schedule appointmentLocation: [address] SpannPhone Number: [phone] [facility] No data available for this section [facility] [employer] Chief Complaint Pt came in today for [...] office for follow-up for recent admission to [facility] with bilateral pulmonary embolism leading to RV [...] pulmonary embolism. Recently follow-up CT scan at [facility] revealed resolution of the pulmonary emboli. Some other pathology was noted with densities requiring follow-up imaging in 3 to 6 months which has been arranged through his PCP. He is cu rrently anticoagulated with Eliquis. The patient is contemplating further dental work in December which he should be able to hold anticoagulation prior to. Recent nuclear stress test at [facility] was reviewed and shared with the patient and was normal. He is also known to have normal ejection fraction. He currently has no complaint to report physical examination was only remarkable for 8 pounds weight gain from last visit. He is now in the obesity range recent medical record from [facility] were reviewed with the patient and [...] thoracic and lumbar xrays and MRI in [place]. brought a disc.new patient. low back pain with RT sided pain to nee x 2 months. h/o sx in 1998. thoracic and lumbar xrays and MRI in [place]. brought a disc.F/U Lumbar after therapy, says [...] 2-3 views Curtis Meléndez MD [address] [facility], [address] [place], [place] [id number] Referral ID Status Reason Start Date Expiration Date Visits Requested Visits Authorized [id number] Authorized Perform Procedure 06/03/2023 06/02/2024 1 1 Specialty Diagnoses / Procedures Referred By Contac t Referred To Contact Radiology Diagnoses Low back pain, unspecified back pain laterality, unspecified chronicity, unspecified whether sciatica present Procedures XR lumbar spine 2-3 views Curtis Meléndez MD [address] [facility], [address] [place] [id number] Referral ID Status Reason Start Date Expiration Date Visits Requested Visits Authorized [id number] Authorized Perform Procedure 02/28/2023 02/28/2024 1 1 [...] lumbar spine 2-3 views Curtis Meléndez MD [address] [facility], [address] [place] [id number] Referral ID Status Reason Start Date Expiration Date Visits Requested Visits Authorized [id number] Authorized Perform Procedure 06/03/2023 06/02/2024 1 1 (unrecognized sect ion and content) No Status Records FoundNo Status Records FoundNo Status Records FoundNo Status Records FoundNo Status Records FoundNo Status Records FoundNo Status Records FoundNo Status Records FoundNo Status Records Found INFORMATION SOURCE (unrecogn ized section and content) DATE CREATED AUTHOR 07/07/2022 [facility] [place] [facility] DATE CREATED AUTHOR AUTHOR'S ORGANIZ ATION 10/25/2022 [facility] DATE CREATED AUTHOR AUTHOR'S ORGANIZ ATION 11/29/2022 [employer] DATE CREATED AUTHOR AUTHOR'S ORGANIZ ATION 12/11/2022 [facility] DATE CREATED AUTHOR AUTHOR'S ORGANIZ ATION 12/14/2022 [facility] DATE CREATED AUTHOR AUTHOR'S ORGANIZ ATION 12/24/2022 [facility] DATE CREATED AUTHOR AUTHOR'S ORGANIZ ATION 06/08/2023 [facility] DATE CREATED AUTHOR AUTHOR'S ORGANIZ ATION 08/22/2023 [facility] DATE CREATED AUTHOR AUTHOR'S ORGANIZ ATION 10/07/2023 [facility] Care Teams (unrecognized sec tion and content) Team Status: Active Member Role Status Dates Jean Nicholson MD Primary Care Provider Active Team Status: Inactive Member Role Status Dates Jean Nicholson MD Primary Care Provider Active Bianka Garcia SPEECH LANGUAGE PATHOLOGY ASSISTANT-C Attending Provider Active Lithographic Retoucher Apprentice Relationship Specialty Start Date End Date Carmen Witt MD [address] [place] [address] [place] [address] PCP - General 06/04/22 Team Status: Inactive Member Role Status Dates Jean Nicholson MD Primary Care Provider Active Danna Mcdaniel APRN ACNP-BC Attending Provider Active Team Status: Inactive Member Role Status Dates Jean Nicholson MD Primary Care Provider Active S tart: March 04, 2023 End: March 04, 2023 Danna Mcdaniel APRN ACNP-BC Attending Provider Active Start: March 04, 2023 End: March 04, 2023 Team Status: Inactive Member Role Status Dates Jean Nicholson MD Primary Care Provider Active S tart: April 09, 2023 End: April 09, 2023 Danna Mcdaniel APRN ACNP-BC Attending Provider Active Start: April 09, 2023 End: April 09, 2023 Team Status: Active Member Role Status Dates Carmen Witt MD Primary Care Provider Active Team Status: Inactive Member Role Status Dates Danna Mcdaniel APRN ACNP-BC Attending Provider Active Start: April 14, 2023 End: April 14, 2023 Carmen Witt MD Primary Care Provider Active Start: April 14, 2023 End: April 14, 2023 Lithographic Retoucher Apprentice Relationship Specialty Start Date End Date Carmen Witt MD [address] [place] [address] [place] [address] PCP - General 06/04/22 Lithographic Retoucher Apprentice Relationship Specialty Start Date End Date Carmen Witt MD [address] [place] [address] [place] [address] PCP - General 06/04/22 Team Status: Inactive [...] BE BASED ON THE PRIMARY CLINICAL RECORDS. [employer] provides no warranty or guarantee of the accuracy or completeness of information in this document.
--- NOTE | 2023-10-09 12:32 | P.CN_ITS ---
Consult Note: HPI Data of Consult Patient: known to practice within the last 3 years Consult date: 04/07/23 Requesting Physician: Mercedes Massey NP Primary Care Provider: Radames Ricks MD Consult Narrative Reason for consult: right hip, right low back, right leg pain Narrative: 67yom who presents for assessment. worsening right low back, leg, hip pain. imaging reviewed, which shows multilevel degenerative changes and stenosis, as well as fusion from l4-s1. has continued in provider directed home exercise program >6 weeks, with minimal benefit. uses percocet 5-325mg BID PRN, nortriptyline 25mg hs, celebrex and baclofen as needed. denies adverse med side effects. Today pain in right hip 3/10. Pain in low back and legs increasing to 5/10 with standing and walking. recent caudal BRIAN providing 80% improvement in pain and functional ability ongoing per patient, noticing improvement in ability to stand and walk for longer periods of time. cc:: CC: Mercedes Massey NP Review of Systems ROS Status of ROS 10 or more systems reviewed and unremark able except as noted in history and below PFSH PFSH Medical History Fixation hardware in spine ?Z96.7 - Presence of other bone and tendon implants (ICD-10) Fusion of lumbar spine ?M43.26 - Fusion of spine, lumbar region (ICD-10) Pulmonary embolism ?I26.99 - Other pulmonary embolism without acute cor pulmonale (ICD-10) Generalized weakness ?R53.1 - Weakness (ICD-10) Meds Home Medications and Allergies Home Medications ?Medication ?Instructions ?Recorded ?Confirmed ?Type acetaminophen 325 mg tablet 325 mg PO Q6H PRN pain 09/06/22 09/22/23 History (Tylenol) albuterol sulfate 90 mcg/actuation 2 puff inhalation Q4H PRN 09/06/22 09/22/23 History aerosol inhaler shortness of breath or wheezing apixaban 5 mg tablet (Eliquis) 5 mg PO Q12H 09/06/22 09/22/23 History atorvastatin 40 mg tablet 40 mg PO QDAY 09/06/22 09/22/23 History baclofen 10 mg tablet 10 mg PO QDAY 09/06/22 09/22/23 History furosemide 20 mg tablet 20 mg PO QDAY 09/06/22 09/22/23 History lisinopril 20 mg tablet 20 mg PO QDAY 09/06/22 09/22/23 History metoprolol tartrate 25 mg tablet 25 mg PO Q12H 09/06/22 09/22/23 History nortriptyline 25 mg capsule 25 mg PO BEDTIME 09/06/22 09/22/23 History omeprazole 40 mg capsule,delayed 40 mg PO QDAY 09/06/22 09/22/23 History release oxybutynin chloride 10 mg 10 mg PO QDAY 09/06/22 09/22/23 History tablet,extended release 24 hr potassium chloride 10 mEq 10 meq PO QDAY 09/06/22 09/22/23 History tablet,extended release docusate sodium 100 mg capsule 100 mg PO BID 11/08/22 09/22/23 History nortriptyline 25 mg capsule 25 mg PO .hs #30 caps 06/30/23 09/22/23 Rx oxycodone-acetaminophen 5 mg-325 1 tab PO BID PRN pain #60 tabs 07/29/23 09/22/23 Rx mg tablet (Percocet) oxycodone-acetaminophen 5 mg-325 1 tab PO BID PRN pain #60 tabs 10/02/23 Rx mg tablet (Percocet) Allergies Allergy/AdvReac Type Severity Reaction Status Date / Time No Known Drug Allergies Allergy Verified 05/19/23 09:58 Exam Constitutional Documenting provider has reviewed patient's vital signs: yes Common normals: no apparent distress, oriented x3, healthy appearing, alert and well nourished General appearance: cooperative [facility] Common normals: normocephalic, hearing grossly normal bilaterally and moist oral mucous membranes Head and scalp: normocephalic Eye Common normals: PERRL Pupil: PERRL Neck & C-Spine Common normals: full ROM General: normal visual inspection Chest Common normals: inspection of chest normal Respiratory Common normals: normal respiratory effort, no retractions and no use of accessory muscles Back & Pelvis Lumbar spine/lower back: ROM limited and straight leg raise negative bilaterally Sacroiliac joints: SI joints normal Other: surgical scar healed, no redness tenderness or warmth Extremity Common normals: normal to inspection and full ROM Neuro Common normals: oriented x3, CN's II-XII intact bilaterally, moves all extremities, no focal motor deficits, no sensory deficits noted and deep tendon reflexes 2+ bilaterally Sensorium/orientation: alert Motor exam: strength 5/5 throughout and no movement abnormalities noted Psych Common normals: mental status grossly normal, thought process normal, cooperative, affect normal, speech normal and activity/motor behavior normal Speech: normal speech Thought process: normal thought process Results Additional Findings Additional findings: If on a controlled substance or opioids, I have checked an [place]AR[place] report on this patient and there are no aberrancies noted in the prescribing history.??If on a controlled substance or opioid a drug screen was completed and reviewed within the last year, and if there has not been a drug screen completed we ordered one today to monitor higher risk, state monitored pain medication use. As part of providing excellent, safe, comprehensive care, the following was completed at our patient's visit: 1. A medication reconciliation and review to ensure accurate knowledge of current/active medications, including asking our patients to inform us about any [id number] medications or herbal remedies/nutritional supplements/alternative remedies. 2. A review to specifically ensure our patients have had annual screening for screening for depression, screening for tobacco use, and screening for unhealthy alcohol use. For concerning screenings had a discussion with the patient, provided patient education, and recommended follow-up with primary care provider when appropriate. If patient noted with a risk of falling, they received education on strength, gait, and balance training to prevent future risk of falling. Assessment and Plan Assessment and Plan (1) Lumbar stenosis with neurogenic claudication: Assessment and Plan: >80% improvement ongoing from caudal BRIAN (2) Lumbar postlaminectomy syndrome: (3) Failed back syndrome: (4) Encounter for long-term use of opiate analgesic: Assessment and Plan: I feel these medications are improving the patient's quality of life and allow them to tolerate activities of daily living as well as participate in recreational activity.? The patient does not report intolerable side effects. The patient is NOT opioid naive and non-pharmacologic and non-opioid treatment has failed to significantly relieve the patient's pain and improve functionality. The patient has a diagnosis that is related to a somatic or visceral pain etiology. ? ?? I reviewed with the patient the potential risks and side effects with the use of? opioid medications including but not limited to respiratory depression,? sedation, and even . I verified the patient has access to naloxone should? these effects occur. I advised the patient to avoid the use of any other? sedation substances including alcohol, THC, and benzodiazepines while? taking opioid medications due to the risk of compounding side effects and? detrimental outcomes. I reviewed the FITNESS SALES CONSULTANT, pain treatment agreement, urine? drug screen, and opioid start talking forms. The patient was advised to let? their family know they had Naloxone in case they would need to administer? the medication.? ?? A drug screen was completed within the last year, and no aberrancies were noted regarding their use of controlled substances. The patient understands they are subject to the terms and conditions of the pain contract that they have signed. ? ?? I have checked an OARRS report on this patient today and there are no aberrancies noted in the prescribing history.? Plan continue current medications, tolerating well without side effects continue HEP as tolerated f/u 3 months, sooner if needed
== END 2023-10-09 12:19 | disposition home or self-care (01) ==
LOC: PM 12:19
PROVIDERS: PCP Family Medicine; Visit Provider Nurse Practitioner
DX: M48.062 Spinal stenosis, lumbar region with neurogenic claudication (principal); M96.1 Postlaminectomy syndrome, not elsewhere classified; Z79.891 Long term (current) use of opiate analgesic
CPT/HCPCS: G0463

== ENCOUNTER 2023-12-09 10:36 | Outpatient (OUT) | payer MEDICARE, SELFPAY ==
--- OUTSIDE RECORDS SUMMARY | 2023-12-09 10:50 | XMS_ITS | CCD ---
Author Organization [facility] Care Team Providers Care Varnishing Machine Operator Name Role Phone Jean Nicholson Unavailable Unavailable Unavailable Julian Matthews Unavailable Bianka Garcia Unavailable Danna Mcdaniel Unavailable Carmen Witt Unavailable BAUMANN ., LAUREN Consulting Unavailable JUAN, KATHERINE Primary Care Unavailable ANDERSON ., DR LORENA Dunham Attending Unavailable ANDERSON ., DR LORENA Dunham Admitting Unavailable BAUMANN .LAUREN Consulting Unavailable JENA NICHOLSON Primary Care Unavailable ANDERSON ., DR LORENA Dunham Attending Unavailable ANDERSON ., DR LORENA Dunham Admitting Unavailable JUAN, KATHERINE Primary Care Unavailable LAKSHMIPATHY ., MIKE Attending Aracely vailable LAKSHMIPATHY ., MIKE Admitting Aracely vailable HOY ., DR MORALES Consulting Unavailable JUAN, KATHERINE Primary Care Unavailable HOY ., DR MORALES Attending Unavailable HOMargie ., DR MORALES Admitting Unavailable ZITOSHA, DR [...] Lyla, Dr. Cecilio Harman Attending Aracely vailable Millicent, Dr. Carmen Fabian Primary Care Unavail [...] Unavail able Ángela, Dr. Curtis Keys [facility] dionna Millsahim, Dr. Cecilio Harman Attending Aracely vailable Hoy, Dr. Carmen Fabian Primary Care Unavail harini Meléndez, Dr. Curtis Keys Attending Leonor Meléndez, Dr. Curtis Keys Admitting Leonor Witt, Dr. Carmen Fabian Referring Unavail able Millicent, Dr. Carmen Fabian Primary Care Unavail able Carmen Witt Primary Care Physician Marino SPEAR Attending Unavailable Marino SPEAR Attending Unavailable Carmen Witt MD Primary Care Provider [phone] MD Jean Nicholson Primary Care Provider [phone] Violeta MARINE FUEL DOCK ATTENDANT Danna Attending Provider [phone] MD Carmen Witt Primary Care Provider [id number] MD Carmen Witt Primary Care Provider EDEL Garcia Attending Provider Bianka Garcia Attending Unavailable Bianka Garcia Admitting Unavailable Carmen Witt Primary Care Unavailable Violeta, Danna Attending Unavailable Violeta, Danna Admitting Unavailable Carmen Witt Primary Care Unavailable Violeta, Danna Admitting Unavailable Jean Nicholson Primary Care Unavailable Violeta, Danna Attending Unavailable Reese JIMENEZ, Andrius Boland Attending Unavailable Reese JIMENEZ, Andregla Boland Attending Unavailable Reese JIMENEZ, Andrius Boland Attending Unavailable Reese JIMENEZ, Andrius Boland Attending Unavailable CURTIS MELÉNDEZ Attending Unavailable CARMEN WITT Primary Care Unavailable CURTIS MELÉNDEZ Referring Unavailable CARMEN WITT Primary Care Unavailable CURTIS MELÉNDEZ Attending Unavailable CECILIO GO Referring Unavailable CARMEN WITT Primary Care Unavailable CURTIS MELÉNDEZ Referring Unavailable CARMEN WITT Primary Care Unavailable CURTIS MELÉNDEZ Attending Unavailable CARMEN WITT Primary Care Unavailable CURTIS MELÉNDEZ Referring Unavailable CARMEN WITT Primary Care Unavailable Allergies Allergy Classification Reported Allergen(s) Allergy Type Date of Onset Reaction(s) Facility Nitrate Vasodilator (1 source) Nitroglycerin Drug Allergy 4 [facility] (20 sources) Nitroglycerin; Translations: [nitroglycerin] Drug Allergy 2 Other [facility] (9 sources) Nitroglycerin Drug Allergy Unknown [employer] Other (1 source) Aminolevulinic Acid Drug Allergy [facility] (2 sources) Nitroglycerin Drug Allergy 2 [facility] Medications Current Medications Medication Drug Class(es) [...] than prescribed may cause serious breathing problems. albuterol 0.83 mg/ml inhalation solution (20 sources) beta2-Adrenergic Agonist Start: 11-17-19 take 2.5 mg by inhalation every six hours Albuterol Sulfate Active 2.5 MG INHALATION Q6H 360 30 November 17, 2023 12:00am Start: 07-14-2021 take 1 puff(s) by in halation every four hours Albuterol Sulfate Active 2 [...] tabs) Tablets,Dose Pack Discontinued 0 .ROUTE .COMPLEX 74 July 16, 2021 12:00am April 09, 2023 11:29am orally per package directions then 5mg twice daily after completion of starter pack atorvastatin 40 mg oral tablet (20 sources) HMG-CoA Reductase Inhibitor Start: 07-16-2021 take 40 mg by mouth once daily in the evening Atorvastatin Active 40 MG PO Every evening July 16, 2021 12:00am Baclofen (15 sources) gamma-Aminobutyr ic Acid-ergic Agonist Start: 12-23-2022 [...] DO Active predniSONE 10 mg oral tablet (17 sources) Start: 02-01-2021 predniSONE 10 MG Oral [...] of rupture] Onset: 2 Resolved: 2 Chronic Asthma (1 source) Asthma; Translations: [Unspecified asthma, uncomplicated] 11-04-2023 Chronic Cancer of prostate (2 sources) Malignant neoplasm of prostate; Translations: [Malignant tumor of prostate] Onset: 3 Chronic Cancer of prostate (6 sources) Personal history of malignant neoplasm of prostate; Translations: [History of malignant neoplasm of prostate] Onset: 2 Episodic Chronic kidney disease (1 source) Chronic kidney disease, unspecified; Translations: [CHRONIC KIDNEY DISEASE UNSPECIFIED] Onset: 2 Chronic Chronic obstructive pulmonary disease and bronchiectasis (11 sources) Chronic obstructive lung disease; Translations: [Chronic obstructive pulmonary disease, unspecified] Onset: 2 11-17-2023 Chronic Congestive heart failure; nonhypertensive (1 source) Unspecified diastolic (congestive) heart failure; Translations: [UNSPECIFIED DIASTOLIC HEART FAILURE] Onset: 2 Chronic Coronary atherosclerosis and other heart disease (1 source) Atherosclerotic heart disease of [place] coronary artery without angina pectoris; Translations: [ASHD [place] W/O ANGINA PECTORIS] Onset: 2 Chronic Cystic fibrosis (7 sources) Cystic fibrosis, unspecified; Translations: [Cystic fibrosis] [...] other medications] Episodic Other aftercare (2 sources) [facility] (current) use of anticoagulants; Translations: [[facility] CURRNT USE ANTICOAGULANTS] Onset: 2 Episodic Other and ill-defined heart disease (13 sources) Diastolic dysfunction; Translations: [Other ill-defined heart diseases] 04-08-2023 Chronic Other and ill-defined heart disease (7 sources) Other ill-defined heart diseases; Translations: [Heart disease, unspecified] Onset: 2 Resolved: 2 Chronic Other connective tissue disease (1 source) Arthrodesis status; Translations: [Arthrodesis status] Onset: 3 Episodic Other hematologic conditions (1 source) High troponin I level; Translations: [Other specified abnormalities of plasma proteins] 05-21-2022 Episodic Other lower respiratory disease (20 sources) Fibrosis of lung; Translations: [Postinflammatory pulmonary fibrosis] Onset: 3 07-14-2021 Chronic Other lower respiratory disease (9 sources) Parietoalveolar pneumopathy; Translations: [Interstitial pulmonary disease, unspecified] Chronic Other lower respiratory disease (5 sources) Interstitial pulmonary disease, unspecified; Translations: [ILD (interstitial lung disease) J84.9] Onset: 1 Resolved: 2 Chronic Other lower respiratory disease (5 sources) Pulmonary fibrosis, unspecified; Translations: [Postinflammatory pulmonary fibrosis] Onset: 3 04-09-2023 Chronic Other lower respiratory disease (4 sources) Interstitial lung disease; Translations: [Interstitial pulmonary [...] Onset: 2 07-14-2021 Episodic Residual codes; unclassified (10 sources) Sleep apnea; Translations: [Sleep apnea, unspecified] 11-04-2023 Chronic Residual codes; unclassified (1 source) Sleep [...] rupture, unspecified] Onset: 3 Unclassified (1 source) Interstitial pulmonary disease, unspecified; Translations: [Interstitial pulmonary disease, unspecified] Onset: 4 Unclassified (1 source) Low back pain, unspecified; Translations: [Low back pain, unspecified] Onset: 4 Past or Other Problems Problem Classification Problem Date Documented Date Episodic/Chronic Cardiac dysrhythmias (20 sources) Sinus tachycardia; Translations: [Other specified cardiac dysrhythmias] Onset: 11-07-2022 Episodic Hyperplasia of prostate (1 source) Benign prostatic hypertrophy with outflow obstruction Resolved: 09-12-2018 11-23-2018 Chronic Nonspecific chest pain (3 sources) Other chest pain; Translations: [OTHER CHEST PAIN] Onset: 07-14-2021 Episodic Other aftercare (1 source) 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 ACCESSION NUMBER(S): [id number] ORDERING CLINICIAN: CURTIS MELÉNDEZ FINDINGS: AP lateral x-rays of the lumbar spine show L3-4 lateral lumbar fusion above a prior L4-5 L5-S1 fusion. Lateral cage plate and screw construct are in good position without any evidence of failure. There is moderate degenerative changes above the level of the fusion. There is no fractures. Lumbar lordosis is maintained. Scoliosis of 10 degrees persists. Pedicles are visualized above the level of fusion. Midline laminectomy appears to go up to the L2 level. Bony pelvis and hips are partially visualized on show mild bilateral hip degenerative changes and multiple surgical clips. Signed by: Curtis Meléndez 11/11/2023 9:36 AM Dictation workstation: [id number] [facility] US aortaon 08-21-2023 US aorta [facility] [address] [place] [address] Ultrasound Report Signed Patient: Erik Morales MR#: [id number] : 1955 Acct:[id number] Age/Sex: 67 / M ADM Date: 08/21/23 Loc: [facility] Room: Type: [facility] Attending Dr: Bianka Garcia STATEMENT CLERKS SUPERVISOR-C Ordering Provider: Bianka Garcia APRN Date [...] Julian Matthews MD08/21/2023 2:21 PM Dictation Location: RAD-DOC-04 Tech: Elham Rivera Transcribed By: LUIS 08/21/23 1421 Dictated By: Julian Matthews MD 08/21/23 1419 Signed By: 08/21/23 1421 [place] [facility] XR LUMBAR SPINE 2-3 VIEWSon 06-03-2023 XR LUMBAR SPINE 2-3 VIEWS Interpreted By: Curtis Meléndez, STUDY: XR LUMBAR SPINE 2-3 VIEWS; 06/03/2023 1:42 pm INDICATION: Signs/Symptoms:pain. ACCESSION NUMBER(S): [id number] ORDERING CLINICIAN: CURTIS MELÉNDEZ FINDINGS: AP lateral [...] Curtis Meléndez 06/03/2023 1:56 PM Dictation workstation: [id number] [facility] XR Lumbar spine 2 or 3 Views on 06-03-2023 Interpreted By: Curtis Love, STUDY: XR LUMBAR SPINE 2-3 VIEWS; 06/03/2023 1:42 pm INDICATION: Signs/Symptoms:pain. ACCESSION NUMBER(S): [id number] ORDERING CLINICIAN: CURTIS MELÉNDEZ FINDINGS: AP lateral [...] Curtis Meléndez 06/03/2023 1:56 PM Dictation workstation: [id number] Curtis Wise MD - 06/03/2023 Interpreted By: Curtis Meléndez, STUDY: XR LUMBAR SPINE 2-3 VIEWS; 06/03/2023 1:42 pm INDICATION: Signs/Symptoms:pain. ACCESSION NUMBER(S): [id number] ORDERING CLINICIAN: CURTIS MELÉNDEZ FINDINGS: AP lateral [...] Curtis Meléndez 06/03/2023 1:56 PM Dictation workstation: [id number] [facility] Work Phone: [facility] Work Phone: Radiology Study observation (narrative) [facility] Work Phone: CT chest wo con high reson 0 04-15-2023 CT chest wo con high res [facility] [place] [place] [address] CT Scan Report Signed Patient: Erik Morales MR#: [id number] : 1955 Acct:[id number] Age/Sex: 67 / M ADM Date: 04/14/23 Loc: CT Room: Type: [facility] Attending Dr: ISATU Gomez APRN Copies to: [...] Christopher Cline M.D.04/15/2023 9:21 AM Dictation Location: [place] [address] Transcribed By: [facility] 04/15/23920 Dictated By: Christopher Cline DO 04/15/23903 Signed By: 04/15/23920 [facility] XR LUMBAR SPINE 2-3 VIEWSon 02-28-2023 XR LUMBAR SPINE 2-3 VIEWS Interpreted By: Curtis Meléndez, STUDY: XR LUMBAR SPINE 2-3 VIEWS; ; 02/28/2023 1:37 pm INDICATION: Signs/Symptoms:low back pain. ACCESSION NUMBER(S): [id number] ORDERING CLINICIAN: CURTIS MELÉNDEZ FINDINGS: AP lateral [...] Curtis Meléndez 02/28/2023 3:09 PM Dictation workstation: [id number] [facility] Lab Reportson 12-24-2022 Lab Reports [id number] Katerina [facility] Patient Educationon 12-24-19 23 Patient Education [...] Where to find more information ? [employer]: www.cancer.org ? [employer]: www.auanet.org Contact a health care [...] adds flu (more content not included)... Normal [facility] Physician Orderon 12-23-2022 Physician Order [id number]#[id number] Normal [facility] Urology Office/Clinic Noteon 12-23-2022 Urology Office/Clinic [...] changes. Follow-up With When Contact Information RAINER JIMNEEZ, Marino Calabrese, [facility] [address] [place] [address] [phone] Additional Instructions: 1 yr w/ PSA Patient Education Prostate Cancer Screening Skye Edwards, personally scribed for Dr. Spear on 12/23/2022 [...] Dipstick: Negative (more content not included)... Normal [facility] Comment on above: Result Comment: Elec tronically Signed By: Marino SPEAR MD\.br\Date and Time Signed: 12/23/22 12:01 EDT\.br\Electronically Co-Signed By: Skye Miller\.br\Date and Time Co-Signed: 12/23/22 11:59 EDT Post Op (Orthopaedic Surgery )on 11-19-2022 Post Op (Orthopaedic Surgery) Orders Back pain Xray BN Spine, Lumbosacral; 2 or 3 Views; Status:Complete; Done: [id number] 02:21PM Radiologist to Determine Optimal Study : [...] Xray BN Spine, Lumbosacral; 2 or 3 [id number] 02:21PMCurtis Meléndez Test NameResultFlagReference Xray Lumbar Spine AP + Lateral(Report) FINAL REPORT Interpreted by: CURTIS MELÉNDEZ JON, MD 11/19/22 16:41 Patient Name: ERIK MORALES STUDY: SPINE, LUMBOSACRAL; 2 OR 3 VIEWS; ; 11/19/2022 2:21 pm INDICATION: pain M54.9: Back pain. ACCESSION NUMBER(S): [id number] ORDERING CLINICIAN: CURTIS MELÉNDEZ FINDINGS: AP lateral x-rays of the lumbar spine show an L3-4 lateral lumbar fusion with lateral plate and cage configuration. Cage pl (more content not included)... Normal [facility] 11-19-2022 XR Lumbar spine AP and Lateral [facility] Work [facility]: SPINE, LUMBOSACRAL 2 OR 3 EWSon 11-19-2022 SPINE, LUMBOSACRAL 2 OR 3 VIEWS Patient Name: ERIK MORALES STUDY: SPINE, LUMBOSACRAL; 2 OR 3 VIEWS; ; 11/19/2022 2:21 pm INDICATION: pain M54.9: Back pain. ACCESSION NUMBER(S): [id number] ORDERING CLINICIAN: CURTIS MELÉNDEZ FINDINGS: AP lateral [...] BASIC METABOLIC PANELon 09- Anion gap [Moles/Vol] 10 mmol/L Normal 10 - 20 [facility] Comment on above: Performed By: #### B MP #### [address] [id number] Calcium [Mass/Vol] 8.9 mg/dL Normal 8.6 - 10.3 [facility] Comment on above: Performed By: #### B MP #### [address] [id number] Chloride [Moles/Vol] 101 mmol/L Normal 98 - 107 [facility] Comment on above: Performed By: #### B MP #### [address] [id number] Creatinine [Mass/Vol] 1.15 mg/dL Normal 0.50 - 1.30 [facility] Comment on above: Performed By: #### B MP #### [address] [id number] GFR/1.73 sq M.predicted among non-blacks MDRD (S/P/Bld) [Vol rate/Area] 70 mL/min/{1.73_m2} Normal >90 [facility] Comment on above: Result Comment: CALC ULATIONS OF ESTIMATED GFR ARE PERFORMED USING THE 2020 CKD-EPI STUDY REFIT EQUATION WITHOUT THE RACE VARIABLE FOR THE IDMS-TRACEABLE CREATININE METHODS. https://jasn.asnjournals.org/content/early//ASN.8280512 988 Performed By: #### B MP #### [address] [id number] Glucose [Mass/Vol] 106 mg/dL High 74 - 99 [facility] Comment on above: Performed By: #### B MP #### [address] [id number] HCO3 (Bld) [Moles/Vol] 29 mmol/L Normal 21 - 32 [facility] Comment on above: Performed By: #### B MP #### [address] [id number] Potassium [Moles/Vol] 4.5 mmol/L Normal 3.5 - 5.3 [facility] Comment on above: Performed By: #### B MP #### [address] [id number] Sodium [Moles/Vol] 135 mmol/L Low 136 - 145 [facility] Comment on above: Performed By: #### B MP #### [address] [id number] Urea nitrogen [Mass/Vol] 13 mg/dL Normal 6 - 23 [facility] Comment on above: Performed By: #### B MP #### [address] [id number] Daily Progress Note-General Internal Medicineon 11-07-2022 Daily [...] intact. Objective Data: Objective Information: T PRBPMAPSpO2 [id number]/2428224% Date/Time11/07 8: 8: 8: 8: 21: 8:56 [...] laboratory results: Basic Metabolic Panel Trending View [id number] 10:23:00 06-Nov-2022 05:48:00 Glucose, Qpjdu805 H 95 NA135 L 138 K4.5 4.1 [...] discussed extensively with patient, RN and Ortho STATEMENT CLERKS SUPERVISOR. Patient verbalized understanding through teach back method. All questions and concerns addressed upon examination. Of note, this documentation is completed using the [employer] Dictation system (voice recognition software). There may be spelling and/or grammatical errors that were not corrected prior to final submission. Plan of Care Reviewed With: Plan of Care Reviewed With: patient Electronic Signatures: Heidy Escobar (MARINE FUEL DOCK ATTENDANT-ORACLE HRMS DEVELOPER) (Signed 07-Nov-2022 14:59) Authored: Service, Subjective Data, Objective Data, Assessment and Plan, Note Completion Last Updated: 07-Nov-2022 14:59 by Heidy Escobar (MARINE FUEL DOCK ATTENDANT-ORACLE HRMS DEVELOPER) Normal [facility] Daily Progress Note-Orthopae ibrahimason 11-07-2022 Daily Progress Note-Orthopaedics Service: Orthopaedics Subjective Data: ERIK MORALES is a 67 year old Male who is Hospital Day # 4 and POD #3 for 1. ;2. ;3. ;4. ;5. Patient seen and examined this morning. No acute events overnight. Objective Data: Objective Information: T PRBPMAPSpO2 Value36.02566684/1225165% Date/Time11/06 20: 21: 21: 21: 21: 21:08 Range(36.7C - [...] to home today Electronic Signatures: Gilda Mcmahon (MARINE FUEL DOCK ATTENDANT-ORACLE HRMS DEVELOPER) (Signed 07-Nov-2022 08:00) Authored: Service, Subjective Data, Objective Data, Assessment and Plan, Note Completion Abner Maldonado) (Signed 07-Nov-2022 11:31) Co-Signer: Service, Subjective Data, Objective Data, Assessment and Plan, Note Completion Last Updated: 07-Nov-2022 11:31 by Abner Maldonado) Normal [facility] Laboratory - Chemistry and C hemistry - challengeon 11-07-2022 Anion gap [Moles/Vol] 10 mmol/L 10 - 20 [facility] [place] Work Phone: Calcium [Mass/Vol] 8.9 mg/dL 8.6 - 10.[address] [facility] [place] Work Phone: Chloride [Moles/Vol] 101 mmol/L 98 - 107 [facility] [place] Work Phone: CO2 [Moles/Vol] 29 mmol/L 21 - 32 [facility] [place] Work Phone: Creatinine [Mass/Vol] 1.15 mg/dL See Below [facility] [place] Work Phone: Comment on above: Reference Range: 0.5 0 - 1.30 Glucose [Mass/Vol] 106 mg/dL above high threshold 74 - 99 [facility] [place] Work Phone: Potassium [Moles/Vol] 4.5 mmol/L 3.5 - 5.3 [facility] [place] Work Phone: Sodium [Moles/Vol] 135 mmol/L below low threshold 136 - 145 [facility] [place] Work Phone: Urea nitrogen [Mass/Vol] 13 mg/dL 6 - 23 [facility] [place] Work Phone: No Panel Informationon 11-07 70 {mL/min/1.73m2} >90 -[facility] [place] Work Phone: Comment on above: CALCULATIONS OF MEGAN MATED GFR ARE PERFORMED USING THE 2020 CKD-EPI STUDY REFIT EQUATION WITHOUT THE RACE VARIABLE FOR THE IDMS-TRACEABLE CREATININE METHODS.https://jasn.asnjournals.org/content//ASN .8778327847 Order Reconciliationon 11-07 Order Reconciliation Page 1 Discharge Reconciliation Document Reconciliation Type: Discharge requested on behalf of Gilda Mcmahon (Advanced Practice Nurse-Admit) done by Gilda Mcmahon (MARINE FUEL DOCK ATTENDANT-[facility]) Discharge - Reconciliation: 07-Nov-2022 09:21 by: Gilda Mcmahon (MARINE FUEL DOCK ATTENDANT-[facility]) Home Medications EnteredHOME MEDICATIONS AT DISCHARGE [...] oral tablet is not required Potassium Chloride (Qxx-Qxmd-Gal 10) 10 mEq oral tablet, extended release 1 tab(s) orally once a day 21-Oct-2022 13:59 Potassium Chloride (Fsr-Vclj-Bvx 10) 10 mEq oral tablet, extended release 1 tab(s) orally once a day 21-Oct-2022 13:59 Potassium Chloride (Gop-Vohw-Mxo 10) 10 mEq oral tablet, extended release is continued as Potassium Chloride (Peu-Ijya-Diz 10) 10 mEq oral tablet, extended release [...] not included)... Normal [facility] Rehab Note-occupational physician rohit 11-07-2022 Rehab Note-occupational therapy Rehab: Info: Mode of Treatmentoccupational therapy Time IN07:31 Time OUT08:00 Total Treatment [id number] Patient in ... at end of sessionchair; [...] Mobility/Tone: Bed Mobility Assessment/Interventionssu pine to sit Ckycxr-zx-Gep Gifford (Bed Mobility)standby assist; verbal cues; nonverbal cues (demo/gesture) Comment, Bed MobilityEducated pt on log roll technique to maintain spinal precautions. Simulated home s/u and transferred towards right side. Transfer Assessment/Interventionssi t to stand transfer; stand to sit transfer; bed to chair transfer; toilet transfer; shower transfer Comment, TransfersMin verbal cues for hand placement with sit <>stand transfers. Bed-Chair [place] (Transfers)standby assist Bed-Chair Assistive Device (Transfers)walker, front-wheeled Sit-Stand [place] (Transfers)standby assist; Multiple sit <>stand transfers performed from various surfaces and surface heights. Pt benefits from elevated surfaces however is able to complete transfers from standard surface heights. Sit-Stand Assistive Device (Transfers)walker, front-wheeled Stand-Sit [place]ifford (Transfers)standby assist Stand-Sit Assistive Device (Transfers)walker, front-wheeled Shower Gifford (Transfers)Pt reports having shower chair at home which he has used prior to admission. Verbal education provided on safe transfer techniques. Pt also educated to have someone present with transfer for fall prevention. Toilet [place] (Transfers)standby assist Toilet Assistive Device (Transfer)grab bars/safety [...] Assessment/Interventionlow er body dressing; toileting; grooming; bathing Gifford Level (Bathing)Pt educated on using a dural mechanic to complete LB bathing vs purchasing a LH sponge. Verbal and visual education provided on technique from seated position on shower chair. Pt verbalized understanding. [place]ifford Level (Lower Body Dressing)don; pants/bottoms; shoes/slippers Assistive Devices (Lower Body Dressing)dural mechanic Comment (Lower Body Dressing)Reviewed education on use of dural mechanic. Wilfredo pants while seated EOB with fair (+) balance. Pt donned LB clothing with SBA. Educated pt on how to use dural mechanic to wilfredo slip on shoes. Pt reports brother can also assist with donning shoes. Pt educated to not walk in tedhose only, always wear shoes or non-slip socks [place]ifford Level (Grooming)standby assist Position (Grooming)standing [place] Level (Toileting)standby assist Position (Toileting)sitting Skilled BADL Treatment/Interventionadap tive equipment training; BADL process/adaptation training; compensatory training; energy conservation Motor: Uho-rb-Eibva (Balance)F+ Standing, Static (Balance)F+ Standing, Dynamic (Balance)F+ [...] Score20 Short Term Goals: Functional Transfer: Established [id number] Functional Transfer: Goal Detailspt will transfer to bed ,chair, toilet with modified indep Functional Transfer: Time Frame for Go (more content not included)... Normal [facility] Rehab Note-physical therapyo n 11-07-2022 Rehab Note-physical therapy Rehab: Info: Disciplinephysical therapist Mode of Treatmentphysical therapy Time IN08:16 Time OUT08:48 Total Treatment [id number] Patient in ... at end of sessionchair; [...] brace in place. PT placed hands over marble machine operator on walker to cue pt [...] Score18 Short Term Goals: Bed Mobility: Date [id number]-2237 Bed Mobility: Gifford Level Goalmodified independent; supine <> sidelying <> sitting Transfer: Established Transfer: Transfer Type Urinhur-xm-mgydg/chair-to- bed; bsc-rv-oxnns/hrqmh-jd-jor Transfer: Gifford Level Goalmodified independent Transfer: Assistive Device Goalrolling walker Gait: Established Gait: Gifford Level Goalmodified independent Gait: Assistive Device Goalrolling walker Gait: Distance Lwaw770' Education: Learnerpatient Barriers to Learningno barrier Methodverbal [...] home Outcome Summary: Predicted Duration of Therapy Oignlewvkupu83 days Progress: Physical Therapyprogress toward functional goals as expected Therapy Frequency (PT Eval)2 times/day Predicted Duration of Therapy Volncifsbopx35 days DC Recommendations: Discharge Recommendation (PT Eval)Pt would benefit from [facility] [place] Electronic Signatures: Daniela Scott (PT) (Signed 07-Nov-2022 15:34) Co-Signer: Info, Mobility/Tone, Outcomes Tools, Short Term Goals, Education, Outcome Summary, DC Recommendations Fior Velez (SPT) (Signed 07-Nov-2022 13:43) Authored: Info, Mobility/Tone, Outcomes Tools, Short Term Goals, Education, Outcome Summary, DC Recommendations Last Updated: 07-Nov-2022 15:34 by Daniela Scott (PT) Normal [facility] BASIC METABOLIC PANELon 09-1 Anion gap [Moles/Vol] 9 mmol/L Low 10 - 20 [facility] Comment on above: Performed By: #### B MP #### [address] [id number] Calcium [Mass/Vol] 8.6 mg/dL Normal 8.6 - 10.3 [facility] Comment on above: Performed By: #### B MP #### [address] [id number] Chloride [Moles/Vol] 105 mmol/L Normal 98 - 107 [facility] Comment on above: Performed By: #### B MP #### [address] [id number] Creatinine [Mass/Vol] 1.37 mg/dL High 0.50 - 1.30 [facility] Comment on above: Performed By: #### B MP #### [address] [id number] GFR/1.73 sq M.predicted among non-blacks MDRD (S/P/Bld) [Vol rate/Area] 57 mL/min/{1.73_m2} Abnormal >90 [facility] Comment on above: Result Comment: CALC ULATIONS OF ESTIMATED GFR ARE PERFORMED USING THE 2020 CKD-EPI STUDY REFIT EQUATION WITHOUT THE RACE VARIABLE FOR THE IDMS-TRACEABLE CREATININE METHODS. https://jasn.asnjournals.org/content/early//ASN.6438348 988 Performed By: #### B MP #### [address] [id number] Glucose [Mass/Vol] 95 mg/dL Normal 74 - 99 [facility] Comment on above: Performed By: #### B MP #### [address] [id number] HCO3 (Bld) [Moles/Vol] 28 mmol/L Normal 21 - 32 [facility] Comment on above: Performed By: #### B MP #### [address] [id number] Potassium [Moles/Vol] 4.1 mmol/L Normal 3.5 - 5.3 [facility] Comment on above: Performed By: #### B MP #### [address] [id number] Sodium [Moles/Vol] 138 mmol/L Normal 136 - 145 [facility] Comment on above: Performed By: #### B MP #### [address] [id number] Urea nitrogen [Mass/Vol] 14 mg/dL Normal 6 - 23 [facility] Comment on above: Performed By: #### B MP #### [address] [id number] Daily Progress Note-General Internal Medicineon 11-06-2022 Daily Progress Note-General Internal Medicine Service: General Internal Medicine Subjective Data: RAIFSNIDER, ERIK is a 67 year old Male who is Hospital Day # 3 and POD #2 for 1. ;2. ;3. ;4. ;5. Patient examined and seen. Alert and oriented x3, resting comfortably. Patient denies chest pain, shortness of breath, palpitations, abdominal pain, fever or chills. Patient is agreeable to go home when cleared. Reports support system is intact. Objective Data: Objective Information: T PRBPMAPSpO2 [id number]/950491% Date/Time11/06 8: 8: 8: 8: 8: 8:18 Range(36.2C - 37.4C ) (63 - 79 ) (16 - 18 ) (104 - 132 )/ (58 - 77 ) (76 - 97 ) (94% - 96% ) Highest temp of 37.4 C was recorded at 11/05 19:08 Pain reported at 11/06 7:23: sleeping ---- Intake and Output ----- Mn/Dy/Year TimeIntakeOutputNet Nov 06, 2022 6:00 [id number] Nov 05, 2022 10:00 [id number] Nov 05, 2022 2:00 [id number] The Intake and Output Totals for the last 24 hours are: IntakeOutputNet [id number] Physical Exam Narrative: Physical Exam: Constitutional: awake/alert/oriented [...] discussed extensively with patient, RN and Ortho STATEMENT CLERKS SUPERVISOR. Patient verbalized understanding through teach back method. All questions and concerns addressed upon examination. Of note, this documentation is completed using the Postmasteration system (voice recognition software). There may be spelling and/or grammatical errors that were not corrected prior to final submission. Plan of Care Reviewed With: Plan of Care Reviewed With: patient Elec (more content not included)... Normal [facility] Daily Progress Note-Orthopae frederic 11-06-2022 Daily Progress Note-Orthopaedics Service: Orthopaedics Subjective Data: ERIK MORALES is a 67 year old Male who is Hospital Day # 3 and POD #2 for 1. ;2. ;3. ;4. ;5. Overnight Events: Patient had an uneventful night. Objective Data: Objective Information: T PRBPMAPSpO2 [id number]/494204% Date/Time11/06 8: 8: 8: 8: 8: 8:18 Range(36.2C - 37.4C ) (63 - 79 ) (16 - 18 ) (104 - 132 )/ (58 - 77 ) (76 - 97 ) (94% - 96% ) Highest temp of 37.4 C was recorded at 11/05 19:08 Pain reported at 11/06 7:23: sleeping ---- Intake and Output ----- Mn/Dy/Year TimeIntakeOutputNet Nov 06, 2022 6:00 [id number] Nov 05, 2022 10:00 [id number] Nov 05, 2022 2:00 [id number] The Intake and Output Totals for the last 24 hours are: IntakeOutputNet [id number] T PRBPMAPSpO2 Value37.63561977/281691% Date/Time11/06 8: 8: 8: 8: 8: 8:18 [...] bed -home today Electronic Signatures: Derrick Cunningham (MARINE FUEL DOCK ATTENDANT-ORACLE HRMS DEVELOPER) (Signed 06-Nov-2022 09:07) Authored: Service, Subjective Data, Objective Data, Assessment and Plan, Note Completion Last Updated: 06-Nov-2022 09:07 by Derrick Cunningham (MARINE FUEL DOCK ATTENDANT-ORACLE HRMS DEVELOPER) Normal [facility] Discharge Kvnssyr1ag 023 Discharge Profile2 Discharge Orders: Anticipated Discharge Date: Anticipated Discharge [id number]-[id number]-9529 Anticipated Discharge Time12:00 Problem List: Admitting Dx: [...] Review of Medication Reconciliation and Orders Completedby MARINE FUEL DOCK ATTENDANT Reviewing ProviderFAINA Dwyer at 07-Nov-2022 09:17:40 Appointments: Follow-Up Appointment 01: Physician/Dept/ServiceDr. Meléndez Reason for Referralback Call to Schedule in2 weeks, please call ahead and schedule appointment [id number] [facility] Phone [phone] Electronic Signatures: Gilda Mcmahon (JESSICA-TRAY) (Signed 07-Nov-2022 09:17) Authored: Discharge Orders, Home Care Orders, Provider FINAL REVIEW of Orders, Appointments, Gold Form - Director Mobile Summary Last Updated: 07-Nov-2022 09:17 by Gilda Mcmahon (MARINE FUEL DOCK ATTENDANT-ORACLE HRMS DEVELOPER) Normal [facility] Laboratory - Chemistry and C hemistry - challengeon 11-06-2022 Anion gap [Moles/Vol] 9 mmol/L below low threshold 10 - 20 [facility] [place] Work Phone: Calcium [Mass/Vol] 8.6 mg/dL 8.6 - 10.[address] [facility] [place] Work Phone: Chloride [Moles/Vol] 105 mmol/L 98 - 107 [facility] [place] Work Phone: CO2 [Moles/Vol] 28 mmol/L 21 - 32 [facility] [place] Work Phone: Creatinine [Mass/Vol] 1.37 mg/dL above high threshold See Below [facility] [place] Work Phone: Comment on above: Reference Range: 0.5 0 - 1.30 Glucose [Mass/Vol] 95 mg/dL 74 - [address] [facility] [place] Work Phone: Potassium [Moles/Vol] 4.1 mmol/L 3.5 - 5.3 -[facility] [place] Work Phone: Sodium [Moles/Vol] 138 mmol/L 136 - [address] [facility] [place] Work Phone: Urea nitrogen [Mass/Vol] 14 mg/dL 6 - [facility] Work Phone: MAGNESIUMon 11-06-2022 Magnesium [Mass/Vol] 2.06 mg/dL Normal 1.60 - 2.40 [facility] Comment on above: Performed By: #### M G #### [facility] [address] [place], [place] [id number] Magnesium, Serumon 3 Magnesium [Mass/Vol] 2.06 mg/dL See Below [facility] Work Phone: Comment on above: Reference Range: 1.6 0 - 2.40 No Panel Informationon 11-06 57 {mL/min/1.73m2} Abnormal >90 [facility] Work Phone: Comment on above: CALCULATIONS OF MEGAN MATED GFR ARE PERFORMED USING THE 2020 CKD-EPI STUDY REFIT EQUATION WITHOUT THE RACE VARIABLE FOR THE IDMS-TRACEABLE CREATININE METHODS.https://jasn.asnjournals.org/content/early//ASN .8248672613 Rehab Note-occupational physician rohit 11-06-2022 Rehab Note-occupational therapy Rehab: Info: Mode of Treatmentoccupational therapy Time IN10:20 Time OUT10:58 Total Treatment Pxznkgj74 Patient in ... at end of sessionchair; [...] sitting on sofas and armless chairs. Sit-Stand Gifford (Transfers)contact guard Sit-Stand Assistive Device (Transfers)walker, front-wheeled Stand-Sit Gifford (Transfers)contact guard Stand-Sit Assistive Device (Transfers)walker, front-wheeled Toilet Gifford (Transfers)contact guard Toilet Assistive Device (Transfer)grab bars/safety [...] alignment. UB bathing and dressing with SBA Gifford Level (Lower Body Dressing)don; pants/bottoms; shoes/slippers; minimum assist (75% patient effort) Assistive Devices (Lower Body Dressing)dural mechanic Comment (Lower Body Dressing)Pt educated on use of dural mechanic and sock aid for LB dressing with fair understanding and return demonstration. Gifford Level (Grooming)contact guard Comment (Grooming)Pt performed G/H tasks in stance at sink with fair balance x 2 1/2 min Motor: Zub-go-Xbirl (Balance)fair balance Standing, Static (Balance)fair balance Standing, [...] Score18 Short Term Goals: Functional Transfer: Established Aukx28-Evu-1469 Functional Transfer: Goal Detailspt will transfer to bed ,chair, toilet with modified indep Functional Transfer: Time Frame for Goal2 wks Balance: Established Balance: Goal DetailsPt will demo fair + dyn std balance with ADLS Balance: Time Frame for Goal2 wks Upper Body Dressing: Established Upper Body Dressing: Gifford Level Goalstand-by assist Upper Body Dressing: Time Frame for Goal2 wks Lower Body Dressing: Established Lower Body Dressing: Gifford Level Goalminimum assist (75% patients effort) Lower [...] therapy Time IN13:41 Time OUT14:07 Total Treatment Hhanspz96 Patient in ... at end of sessionbed, [...] Score18 Short Term Goals: Bed Mobility: Date Lxapmqjvesp39-Pfb-5905 Bed Mobility: Gifford Level Goalmodified independent; supine <> sidelying <> sitting Transfer: Established [id number]-9486 Transfer: Transfer Type Nsrlgea-ha-sfltx/chair-to- bed; ugq-dh-vozxh/qcasn-zv-rpx Transfer: Gifford Level Goalmodified independent Transfer: Assistive Device Goalrolling walker Gait: Established [id number]-2655 Gait: Gifford Level Goalmodified independent Gait: Assistive Device Goalrolling walker Gait: Distance Msee301' Education: Learnerpatient Barriers to Learningno barrier Methodverbal [...] home Outcome Summary: Predicted Duration of Therapy Matlgyvzcela73 days Progress: Physical Therapyprogress toward functional goals as expected Therapy Frequency (PT Eval)2 times/day Predicted Duration of Therapy Gjjrhpuidzdx13 days DC Recommendations: Discharge Recommendation (PT Eval)Pt would benefit from [facility] [place] Electronic Signatures: Daniela Scott (PT) (Signed 07-Nov-2022 03:43) Co-Signer: Info, Mobility/Tone, Motor, Sensory, Outcomes Tools, Short Term Goals, Education, Outcome Summary, DC Recommendations Fior Velez (SPT) (Signed 06-Nov-2022 14:31) Authored: Info, Mobility/Tone, Motor, Sensory, Outcomes Tools, Short Term Goals, Education, Outcome Summary, DC Recommendations Last Updated: 07-Nov-2022 03:43 by Daniela Scott (PT) Normal [facility] Rehab Note-physical therapy Rehab: Info: Mode of Treatmentphysical therapy Time IN09:36 Time OUT10:17 Total Treatment Stqodej00 Patient in ... at end of sessionchair; alarm on Patient Effortgood Symptoms Noted During/After Treatmentfatigue Treatment Considerations/CommentsSer vices provided by RAFAEL Holt [...] Score18 Short Term Goals: Bed Mobility: Date Egwcmkizdkg06-Vpp-5183 Bed Mobility: Gifford Level Goalmodified independent; supine <> sidelying <> sitting Transfer: Established Transfer: Transfer Type Xbbwmfx-fk-qkgpo/chair-to- bed; dih-ie-rrdmb/lnrac-lm-omw Transfer: Gifford Level Goalmodified independent Transfer: Assistive Device Goalrolling walker Gait: Established Rulx15-Spt-9338 Gait: Gifford Level Goalmodified independent Gait: Assistive Device Goalrolling walker Gait: Distance Ahku346' Education: Learnerpatient Methodverbal Topicrehab plan of care; precautions; discharge recommendations including destination and/or equipment; fall prevention Education - Topicproper use of FWW for transfers and gait to reduce the risk of fall, reviewed spinal precautions and body mechanics for getting in and out of bed, concerns for discharging home Outcome Summary: Predicted Duration of Therapy Pflyqpdmibcs31 days Progress: Physical Therapyprogress towards functional goals is fair Therapy Frequency (PT Eval)2 times/day Predicted Duration of Therapy Cyhjaxpwebnq29 days DC Recommendations: Discharge Recommendation (PT Eval)Pt would benefit from [facility] [place] Electronic Signatures: Daniela Scott (PT) (Signed 07-Nov-2022 03:43) Co-Signer: Info, Mobility/Tone, Outcomes Tools, Short Term Goals, Education, Outcome Summary, DC Recommendations Fior Velez (SPT) (Signed 06-Nov-2022 14:30) Authored: Info, Mobility/Tone, Outcomes Tools, Short Term Goals, Education, Outcome Summary, DC Recommendations Last Updated: 07-Nov-2022 03:43 by Daniela Scott (PT) Normal [facility] BASIC METABOLIC PANELon 10-25 Anion gap [Moles/Vol] 12 mmol/L Normal 10 - 20 [facility] Comment on above: Performed By: #### B MP #### [address] [id number] Calcium [Mass/Vol] 8.8 mg/dL Normal 8.6 - 10.3 [facility] Comment on above: Performed By: #### B MP #### [address] [id number] Chloride [Moles/Vol] 101 mmol/L Normal 98 - 107 [facility] Comment on above: Performed By: #### B MP #### [address] [id number] Creatinine [Mass/Vol] 1.75 mg/dL High 0.50 - 1.30 [facility] Comment on above: Performed By: #### B MP #### [address] [id number] GFR/1.73 sq M.predicted among non-blacks MDRD (S/P/Bld) [Vol rate/Area] 42 mL/min/{1.73_m2} Abnormal >90 [facility] Comment on above: Result Comment: CALC ULATIONS OF ESTIMATED GFR ARE PERFORMED USING THE 2020 CKD-EPI STUDY REFIT EQUATION WITHOUT THE RACE VARIABLE FOR THE IDMS-TRACEABLE CREATININE METHODS. https://jasn.asnjournals.org/content//ASN.4720856 988 Performed By: #### B MP #### [address] [id number] Glucose [Mass/Vol] 131 mg/dL High 74 - 99 [facility] Comment on above: Performed By: #### B MP #### [address] [id number] HCO3 (Bld) [Moles/Vol] 26 mmol/L Normal 21 - 32 [facility] Comment on above: Performed By: #### B MP #### [address] [id number] Potassium [Moles/Vol] 4.0 mmol/L Normal 3.5 - 5.3 [facility] Comment on above: Performed By: #### B MP #### [address] [id number] Sodium [Moles/Vol] 135 mmol/L Low 136 - 145 [facility] Comment on above: Performed By: #### B MP #### [address] [id number] Urea nitrogen [Mass/Vol] 14 mg/dL Normal 6 - 23 [facility] Comment on above: Performed By: #### B MP #### [address] [id number] CBCon 11-05-2022 Erythrocyte distribution width (RBC) [Ratio] 13.4 % Normal 11.5 - 14.5 [facility] Comment on above: Performed By: #### C BC #### [address] [id number] Hematocrit (Bld) [Volume fraction] 43.6 % Normal 41.0 - 52.0 [facility] Comment on above: Performed By: #### C BC #### [address] [id number] Hemoglobin (Bld) [Mass/Vol] 14.3 g/dL Normal 13.5 - 17.5 [facility] Comment on above: Performed By: #### C BC #### [address] [id number] MCHC (RBC) [Mass/Vol] 32.8 g/dL Normal 32.0 - 36.0 [facility] Comment on above: Performed By: #### C BC #### [address] [id number] MCV (RBC) [Entitic vol] 96 fL Normal 80 - 100 [facility] Comment on above: Performed By: #### C BC #### [address] [id number] Platelets (Bld) [#/Vol] 244 10*3/uL Normal 150 - 450 [facility] Comment on above: Performed By: #### C BC #### [address] [id number] RBC 4.54 x10E12/L Normal 4.50 - 5.90 [facility] Comment on above: Performed By: #### C BC #### [address] [id number] WBC (Bld) [#/Vol] 16.4 10*3/uL High 4.4 - 11.3 [facility] Comment on above: Performed By: #### C BC #### [address] [id number] Daily Progress Note-General Internal Medicineon 11-05-2022 Daily [...] intact. Objective Data: Objective Information: T PRBPMAPSpO2 Value36.56155436/274476% Date/Time11/05 7: 0: 0: 7: 7: 7:33 [...] ----- Mn/Dy/Year TimeIntakeOutputNet Nov 05, 2022 6:00 [id number] Nov 04, 2022 10:00 [id number] Nov 04, 2022 2:00 [id number] The Intake and Output Totals for the last 24 hours are: IntakeOutputNet [id number] Physical Exam Narrative: Physical Exam: Constitutional: awake/alert/oriented [...] [facility] Daily Progress Note-Orthopae dicson 11-05-2022 Daily Progress Note-Orthopaedics Service: Orthopaedics Subjective Data: ERIK MORALES is a 67 year old Male who is Hospital Day # 2 and POD #1 for 1. ;2. ;3. ;4. ;5. Overnight Events: Patient had an uneventful night. Objective Data: Objective Information: T PRBPMAPSpO2 Value36.23248279/102786% Date/Time11/05: 0: 0: 7: 7: 7:33 Range(36.1C - [...] ----- Mn/Dy/Year TimeIntakeOutputNet Nov 05, 2022 6:00 [id number] Nov 04, 2022 10:00 [id number] Nov 04, 2022 2:00 [id number] The Intake and Output Totals for the last 24 hours are: IntakeOutputNet [id number] T PRBPMAPSpO2 Value36.46273606/873715% Date/Time11/05: 0: 0: 7: 7: 7:33 Range(36.1C - [...] out of bed Electronic Signatures: Derrick Cunningham (MARINE FUEL DOCK ATTENDANT-ORACLE HRMS DEVELOPER) (Signed 05-Nov-2022 08:16) Authored: Service, Subjective Data, Objective Data, Assessment and Plan, Note Completion Curtis Maldonado) (Signed 05-Nov-2022 09:30) Co-Signer: Service, Subjective Data, Objective Data, Assessment and Plan, Note Completion Last Updated: 05-Nov-2022 09:30 by Curtis Maldonado) [facility] Laboratory - Chemistry and C hemistry - challengeon 11-05-2022 Anion gap [Moles/Vol] 12 mmol/L 10 - 20 [facility] [place] Work Phone: Calcium [Mass/Vol] 8.8 mg/dL 8.6 - 10.[address] [facility] [place] Work Phone: Chloride [Moles/Vol] 101 mmol/L 98 - 107 [facility] [place] Work Phone: CO2 [Moles/Vol] 26 mmol/L 21 - 32 [facility] [place] Work Phone: Creatinine [Mass/Vol] 1.75 mg/dL above high threshold See Below [facility] [place] Work Phone: Comment on above: Reference Range: 0.5 0 - 1.30 Glucose [Mass/Vol] 131 mg/dL above high threshold 74 - 99 [facility] [place] Work Phone: Potassium [Moles/Vol] 4.0 mmol/L 3.5 - 5.3 [facility] [place] Work Phone: Sodium [Moles/Vol] 135 mmol/L below low threshold 136 - 145 [facility] [place] Work Phone: Urea nitrogen [Mass/Vol] 14 mg/dL 6 - 23 [facility] [place] Work Phone: Laboratory - Hematology and Cell countson 11-05-2022 Erythrocyte distribution width (RBC) [Ratio] 13.4 % See Below [facility] [place] Work Phone: Comment on above: Reference Range: 11. 5 - 14.5 Hematocrit (Bld) [Volume fraction] 43.6 % See Below [facility] [place] Work Phone: Comment on above: Reference Range: 41. 0 - 52.0 Hemoglobin (Bld) [Mass/Vol] 14.3 g/dL See Below [facility] Work Phone: Comment on above: Reference Range: 13. 5 - 17.5 MCHC (RBC) [Mass/Vol] 32.8 g/dL See Below [facility] Work Phone: Comment on above: Reference Range: 32. 0 - 36.0 MCV (RBC) [Entitic vol] 96 fL 80 - 100 [facility] Work Phone: Platelets (Bld) [#/Vol] 244 10*3/uL 150 - 450 [facility] Work Phone: RBC (Bld) [#/Vol] 4.54 {x10E12/L} See Below [facility] Work Phone: Comment on above: Reference Range: 4.5 0 - 5.90 WBC (Bld) [#/Vol] 16.4 10*3/uL above high threshold 4.4 - 11.3 [facility] Work Phone: No Panel Informationon 11-05 42 {mL/min/1.73m2} Abnormal >90 [facility] Work Phone: Comment on above: CALCULATIONS OF MEGAN MATED GFR ARE PERFORMED USING THE 2020 CKD-EPI STUDY REFIT EQUATION WITHOUT THE RACE VARIABLE FOR THE IDMS-TRACEABLE CREATININE METHODS.https://jasn.asnjournals.org/content//ASN .1091640651 OT Evaluation v2-occupationa l therapyon 11-05-2022 OT Evaluation v2-occupational therapy Rehab: Info: Mode of Treatmentoccupational therapy Time IN07:41 Time OUT08:05 Total Treatment Minutes0 Patient Effortgood Symptoms Noted During/After Treatmentnone Patient Profile Reviewedyes Onset of Illness/Injury or Date of Ozbrmjr58-Haw-4001 Reason for ReferralL2-3, L3-4 lami, L3-4 lateral [...] Static (Balance)good balance Sitting, Dynamic (Balance)good balance Axf-mc-Ntdve (Balance)good balance Standing, Static (Balance)fair balance Standing, Dynamic (Balance)fair balance Sensory: Pre-Treatment Pain Rating3/10 Post-Treatment Pain Rating3/10 Comment, Pre/Post Treatment Painlow back pain Sensory General Assessmentno sensation deficits identified Impression: Criteria for Skilled Therapeutic Interventions Met (OT Eval)treatment indicated OT DiagnosisADL impairment Rehab Potential (OT Eval)good, to achieve stated therapy goals Therapy Frequency (OT Eval)2 times/wk Predicted Duration of Therapy Panvnxpdwidl40 days Functional Limitations in Following Categoriesself-care Planned [...] Score16 Short Term Goals: Functional Transfer: Established Awdr57-Ntv-0789 Functional Transfer: Goal Detailspt will transfer to bed ,chair, toilet with modified indep Functional Transfer: Time Frame for Goal2 wks Balance: Established Ozmo52-Rue-3752 Balance: Goal DetailsPt will demo fair + dyn std balance with ADLS Balance: Time Frame for Goal2 wks Upper Body Dressing: Established Upper Body Dressing: Gifford Level Goalstand-by assist Upper Body Dressing: Time Frame for Goal2 wks Lower Body Dressing: Established Lower Body Dressing: Gifford Level Goalminimum assist (75% patients effort) Lower Body Dressing: Time Frame for Goal2 wks Following Precautions: Established Bkys38-Mld-0909 Following Precautions: Goal Detailspt will verbalize and [...] Updated: 05-Nov-2022 09:56 by Marianna Hayes (OT) [facility] PT Evaluation v2-physical th erapyon 11-05-2022 PT Evaluation v2-physical therapy Rehab: Info: Mode of Treatmentphysical therapy Time IN07:45 Time OUT08:05 Patient in ... at end of sessionchair; alarm on Patient Effortgood Patient Profile Reviewedyes Onset of Illness/Injury or Date of Befszhk97-Ece-3838 Reason for ReferralSurgery 9.11.2023 L3-4 lateral interbody fusion, L2-3 and L3-4 laminectomy and posterior lateral fusion, L3-4 lateral instrumentation, thermal ablation of median nerve to L2-3 and L3-4 Referring PhysicianPT/OT 11.04.2022 Ángela Lumbosacral brace up Spinal precautions Patient/Family/Caregiver Comments/ObservationsServi bari provided by Alta Velez SPT with direct [...] Static (Balance)good balance Sitting, Dynamic (Balance)fair balance Vdi-ef-Ptaze (Balance)fair + Standing, Static (Balance)fair + Standing, [...] (PT Eval)2 times/day Predicted Duration of Therapy Klszuveipzvp08 days Outcomes Tools: Turning from your back [...] Note-physical therapy Rehab: Info: Disciplinephysical respiratory therapy assistant Mode of Treatmentphysical therapy Time IN14:19 Time OUT14:44 Total Treatment [id number] Patient in ... at end of sessionbed, [...] Score18 Short Term Goals: Bed Mobility: Date Axcwmhtjfhw59-Fsc-1682 Bed Mobility: Gifford Level Goalmodified independent; supine <> sidelying <> sitting Transfer: Established Cdpj14-Uxn-6011 Transfer: Transfer Type Tuuviwg-ic-cljfz/chair-to- bed; nxd-lb-zyzbn/ceais-zz-fqq Transfer: Gifford Level Goalmodified independent Transfer: Assistive Device Goalrolling walker Gait: Established Bgwi75-Suy-9381 Gait: Gifford Level Goalmodified independent Gait: Assistive Device Goalrolling walker Gait: Distance Wyxs300' Education: Learnerpatient; family member Methodverbal Outcome Evaluation1=partially meets; needs review Education - Topicpt able to recall spinal precautions , Able to don and doff TLSO brace Outcome Summary: Progress: Physical Therapyprogress toward functional goals as expected Electronic Signatures: Kelsea Cueto ([employer]CHOOL MATH TEACHER) (Signed 05-Nov-2022 16:34) Authored: Info, Mobility/Tone, Sensory, [...] applied here Patient Transferred from Other Facility ([facility], [facility], [place],etc)no Patient Identity Verified Bypatient ID Band FULL [...] AlertFor Ebola-like Symptoms: Isolate Patient and Notify Provider/Waste Recycler For Contact: Notify Provider/Waste Recycler Advance Directive: Advance Directive/DNRyes Advance Directive typeLiving Will, Durable Power of Hand Crocheter for Healthcare Living Will AvailabilityLiving Will not available now Living Will Ucswtweve15-Hgq-6609 Durable Power of Hand Crocheter AvailabilityDPOA not available now Durable Power of Hand Crocheter Xqazknnju29-Qrh-8835 Durable Power of Hand Crocheter contact (name and number)Dana [phone] [place] Fall Screen: History of falling (immediate [...] instruction; skill demonstration Cultural Considerationsnone Developmental Considerationsnone Samaritan Considerationsnone Learning Assessment (Other Learner): Other learner availableno Depression Screen: During the past month, have you often been bothered by feeling down, depressed or hopelessno During the past month, have you often had little interest or pleasure in doing thingsno Have you had any thoughts of harming anyone elseno [place] Suicide: Risk Screen Not Applicable/Able to Answerable to be screened In the Past Month: Have you wished you were or could go to sleep and not wake upno In the Past Month: Have you had any actual thoughts of killing yourselfno Lifetime: Have you ever done, started to do, or prepared to do anything to end your lifeno [place] Suicide Risknegative Adult Nutrition Screen: Have you [...] Normal [facility] Consult-General Internal Med [facility] 11-04-2022 Consult-General Internal Medicine Service: Service: General [...] nitroglycerin: Unknown Objective: Objective Information: T PRBPMAPSpO2 [id number]% Date/Time11/04 15: 15: 15: 15: 15: 15:32 [...] included)... Normal [facility] Discharge Planning Tybp2md 0 11-04-2022 Discharge Planning Note2 Discharge Planning: Planned Dispositionhome Discharge Destinationhome Porter of Choice Explainedyes Anticipated Discharge Gnni49-Fkj-7409 Discharge Planning 11/04/22 @ 1508 hours: Received social work consult for dc planning. Reviewed chart, no social work needs identified. TCC to follow for assessment and discharge planning. TCC will reconsult Social Work if any social work needs should arise. 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 Drives. Pt plans to dc home. CT team will continue to monitor care progression and potential dc needs. Darya Jay RN TCC 11/06/22 0900 TCC UPDATE: [facility] score is PT (18) OT (16), PT recommends home no further PT needs. Per rounding report with David Cunningham CNP and team, pt is s/p Lami fusion and dura tear, pt has lumbosacral brace, will DC marian no needs, ADOD today vs tomorrow. CT team will continue monitoring case for progression and potential DC needs. Sultana Jones RN TCC. Assessment: Discharge Planning Assessment Eysw01-Trs-5172 Primary Contact Name and NumberDale (brother) [phone] Lives Withsibling(s) Living Arrangementshouse PCPHoy Anticipated Transition [facility] Anticipated at Transitionnone InsuranceDevoted Anticipated [...] 06-Nov-2022 15:26 by Sultana Jones (CLIN COOR) Normal [facility] Order Reconciliationon 11-04 Order Reconciliation Page 1 Admission Reconciliation Document Reconciliation Type: Admission requested on behalf of Heidy Escobar (Advanced Practice Nurse) done by Heidy Escobar ([facility]) Admission - Partial Reconciliation: 04-Nov-2022 15:50 by: Heidy Escobar ([facility]) Admission - Reconciliation: 04-Nov-2022 15:50 by: Heidy Escobar ([facility]) Home MedicationsEnteredLast Dose TakenReconciled with current Order Reconciliation Comment/ Additional Information atorvastatin 40 mg oral tablet 1 tab(s) orally once a day (at bedtime) PM Atorvastatin Tablet (LIPITOR)DOSE = 40 mg Oral At Bedtimeatorvastatin 40 mg oral tablet continued as the inpatient order Atorvastatin baclofen 10 mg oral tablet 1 tab(s) orally once a huw63-Rwg-486925-Nwq-8907 PM Reviewed and Held Eliquis 5 mg oral tablet 1 tab(s) orally 2 times a day---AWARE TO HOLD PRIOR TO PROCEDURE Reviewed and Held furosemide 20 mg oral tablet 1 tab(s) orally once a vla67-Slp-646074-Roo-9565 AM Furosemide Tablet (LASIX)DOSE = 20 mg Oral Dailyfurosemide 20 mg oral tablet is continued and suspended as Furosemide lisinopril 20 mg oral tablet 1 tab(s) orally once a tep38-Syo-464820-Fpe-5534 PM Lisinopril Tablet (PRINIVIL, ZESTRIL)DOSE = 20 mg Oral Dailylisinopril 20 mg oral tablet is continued and suspended as Lisinopril metoprolol tartrate 25 mg oral tablet 1 tab(s) orally 2 times a day---AWARE TO TAKE MORNING OF PROCEDUE WITH A SIP OF KNAIS52-Akm-326035-Hzy-576 3 02:30 AM Reviewed and Held Multiple Vitamins oral tablet 1 tab(s) orally once a slm77-Bpt-936904-Nov-2022 AM Multivitamin with Minerals TabletDOSE = 1 tablet(s) Oral Daily Multiple Vitamins oral tablet continued as the inpatient order Multivitamin with Minerals nortriptyline 25 mg oral capsule orally once a wgf88-Sil-578677-Sqw-5614 PM Nortriptyline Capsule (PAMELOR)DOSE = 25 mg [...] release 1 tab(s) orally once a day PM Reviewed and Held oxycodone-acetaminophen 5 mg-325 mg oral tablet 1 tab(s) orally 2 times a day, As Wfqoay82-Vnz-997161-Jhe-46 23 Reviewed and Held Potassium Chloride (Dxy-Lnzm-Stw 10) 10 mEq oral tablet, extended release 1 tab(s) orally once a yrt12-Owr-511607-Gfh-3897 PM Reviewed and Held Additional Current Orders [...] link to view the study images [facility] Work Phone: Established Visit (Orthopaed ic [...] op sx 11/04/22, lumbar History of Present IllnessGiorgiry is a 67-year-old gentleman here for preop [...] 10:00am. Performed By: #### A PTT #### [address] [id number] Activated Partial Thrombopla stin Timeon 10-21-2022 aPTT Coag (PPP) [Time] 34 s 27 - 38 [facility] Work Phone: Comment on above: Note [...] (cells/L). Performed By: #### C BCDF #### [address] [id number] Basophils (Bld) [#/Vol] 0.11 10*3/uL High 0.00 - 0.10 [facility] Comment on above: Performed By: #### C BCDF #### [address] [id number] Basophils/100 WBC (Bld) 1.2 % Normal 0.0 - 2.0 [facility] Comment on above: Performed By: #### C BCDF #### [address] [place] [id number] Eosinophils (Bld) [#/Vol] 0.21 10*3/uL Normal 0.00 - 0.70 [facility] Comment on above: Performed By: #### C BCDF #### [address] [id number] Eosinophils/100 WBC (Bld) 2.2 % Normal 0.0 - 6.0 [facility] Comment on above: Performed By: #### C BCDF #### [address] [id number] Erythrocyte distribution width (RBC) [Ratio] 13.5 % Normal 11.5 - 14.5 [facility] Comment on above: Performed By: #### C BCDF #### [address] [id number] Hematocrit (Bld) [Volume fraction] 44.9 % Normal 41.0 - 52.0 [facility] Comment on above: Performed By: #### C BCDF #### [address] [id number] Hemoglobin (Bld) [Mass/Vol] 14.8 g/dL Normal 13.5 - 17.5 [facility] Comment on above: Performed By: #### C BCDF #### [address] [id number] Lymphocytes (Bld) [#/Vol] 1.28 10*3/uL Normal 1.20 - 4.80 [facility] Comment on above: Performed By: #### C BCDF #### [address] [id number] Lymphocytes/100 WBC (Bld) 13.6 % Normal 13.0 - 44.0 [facility] Comment on above: Performed By: #### C BCDF #### [address] [id number] MCHC (RBC) [Mass/Vol] 33.0 g/dL Normal 32.0 - 36.0 [facility] Comment on above: Performed By: #### C BCDF #### [address] [id number] MCV (RBC) [Entitic vol] 94 fL Normal 80 - 100 [facility] Comment on above: Performed By: #### C BCDF #### [address] [id number] Monocytes (Bld) [#/Vol] 0.72 10*3/uL Normal 0.10 - 1.00 [facility] Comment on above: Performed By: #### C BCDF #### [address] [id number] Monocytes/100 WBC (Bld) 7.7 % Normal 2.0 - 10.0 [facility] Comment on above: Performed By: #### C BCDF #### [address] [id number] Neutrophils (Bld) [#/Vol] 7.04 10*3/uL Normal 1.20 - 7.70 [facility] Comment on above: Performed By: #### C BCDF #### [address] [id number] Neutrophils/100 WBC (Bld) 75.0 % Normal 40.0 - 80.0 [facility] Comment on above: Performed By: #### C BCDF #### [address] [id number] Platelets (Bld) [#/Vol] 251 10*3/uL Normal 150 - 450 [facility] Comment on above: Performed By: #### C BCDF #### [address] [id number] RBC 4.78 x10E12/L Normal 4.50 - 5.90 [facility] Comment on above: Performed By: #### C BCDF #### [address] [id number] WBC (Bld) [#/Vol] 9.4 10*3/uL Normal 4.4 - 11.3 [facility] Comment on above: Performed By: #### C BCDF #### [address] [id number] COMPREHENSIVE PANELon 2022 Albumin [Mass/Vol] 4.0 g/dL Normal 3.4 - 5.0 [facility] Comment on above: Performed By: #### C BC #### [address] [id number] ALP [Catalytic activity/Vol] 127 U/L Normal 33 - 136 [facility] Comment on above: Performed By: #### C BC #### [address] [id number] ALT [Catalytic activity/Vol] 16 U/L Normal 10 - 52 [facility] Comment on above: Result Comment: Becca ents treated with Sulfasalazine may generate falsely decreased results for ALT. Performed By: #### C BC #### [address] [id number] Anion gap [Moles/Vol] 12 mmol/L Normal 10 - 20 [facility] Comment on above: Performed By: #### C BC #### [address] [id number] AST [Catalytic activity/Vol] 21 U/L Normal 9 - 39 [facility] Comment on above: Performed By: #### C BC #### [address] [id number] Bilirubin [Mass/Vol] 0.6 mg/dL Normal 0.0 - 1.2 [facility] Comment on above: Performed By: #### C BC #### [address] [id number] Calcium [Mass/Vol] 9.3 mg/dL Normal 8.6 - 10.3 [facility] Comment on above: Performed By: #### C BC #### [address] [id number] Chloride [Moles/Vol] 103 mmol/L Normal 98 - 107 [facility] Comment on above: Performed By: #### C BC #### [address] [id number] Creatinine [Mass/Vol] 1.29 mg/dL Normal 0.50 - 1.30 [facility] Comment on above: Performed By: #### C BC #### [address] [id number] GFR/1.73 sq M.predicted among non-blacks MDRD (S/P/Bld) [Vol rate/Area] 61 mL/min/{1.73_m2} Normal >90 [facility] Comment on above: Result Comment: CALC ULATIONS OF ESTIMATED GFR ARE PERFORMED USING THE 2020 CKD-EPI STUDY REFIT EQUATION WITHOUT THE RACE VARIABLE FOR THE IDMS-TRACEABLE CREATININE METHODS. https://jasn.asnjournals.org/content//ASN.5932911 988 Performed By: #### C BC #### [address] [id number] Glucose [Mass/Vol] 103 mg/dL High 74 - 99 [facility] Comment on above: Performed By: #### C BC #### [address] [id number] HCO3 (Bld) [Moles/Vol] 27 mmol/L Normal 21 - 32 [facility] Comment on above: Performed By: #### C BC #### [address] [id number] Potassium [Moles/Vol] 3.8 mmol/L Normal 3.5 - 5.3 [facility] Comment on above: Performed By: #### C BC #### [address] [id number] Protein [Mass/Vol] 7.4 g/dL Normal 6.4 - 8.2 [facility] Comment on above: Performed By: #### C BC #### [address] [id number] Sodium [Moles/Vol] 138 mmol/L Normal 136 - 145 [facility] Comment on above: Performed By: #### C BC #### [address] [id number] Urea nitrogen [Mass/Vol] 11 mg/dL Normal 6 - 23 [facility] Comment on above: Performed By: #### C BC #### [address] [id number] Complete Blood Count + Diffe rentialon 10-21-2022 Basophils/100 WBC (Bld) 1.2 % 0.0 - 2.0 [facility] Work Phone: [phone] distribution width (RBC) [Ratio] 13.5 % See Below [facility] Work Phone: Comment on above: Reference Range: 11. 5 - 14.5 Hematocrit (Bld) [Volume fraction] 44.9 % See Below [facility] Work Phone: Comment on above: Reference Range: 41. 0 - 52.0 Hemoglobin (Bld) [Mass/Vol] 14.8 g/dL See Below [facility] Work Phone: Comment on above: Reference Range: 13. 5 - 17.5 Lymphocytes/100 WBC (Bld) 13.6 % See Below [facility] Work Phone: Comment on above: Reference Range: 13. 0 - 44.0 MCHC (RBC) [Mass/Vol] 33.0 g/dL See Below [facility] Work Phone: [phone] Comment on above: Reference Range: 32. 0 - 36.0 MCV (RBC) [Entitic vol] 94 fL 80 - 100 [facility] Work Phone: [phone] Monocytes/100 WBC (Bld) 7.7 % 2.0 - 10.0 [facility] Work Phone: Neutrophils/100 WBC (Bld) 75.0 % See Below [facility] Work Phone: [phone] Comment on above: Reference Range: 40. 0 - 80.0 Platelets (Bld) [#/Vol] 251 10*3/uL 150 - 450 [facility] Work Phone: [phone] RBC (Bld) [#/Vol] 4.78 {x10E12/L} See Below [facility] Work Phone: [phone] Comment on above: Reference Range: 4.5 0 - 5.90 WBC (Bld) [#/Vol] 9.4 10*3/uL 4.4 - 11.3 [facility] Work Phone: [phone] Complete Blood Count + Differential 0.11 {x10E9/L} above high threshold See Below [facility] Work Phone: [phone] Comment on above: Reference Range: 0.0 0 - 0.10 Complete Blood Count + Differential 0.21 {x10E9/L} See Below [facility] Work Phone: [phone] Comment on above: Reference Range: 0.0 0 - 0.70 Complete Blood Count + Differential 0.72 {x10E9/L} See Below [facility] Work Phone: [phone] Comment on above: Reference Range: 0.1 0 - 1.00 Complete Blood Count + Differential 1.28 {x10E9/L} See Below [facility] Work Phone: [phone] Comment on above: Reference Range: 1.2 0 - 4.80 Complete Blood Count + Differential 7.04 {x10E9/L} See Below [facility] Work Phone: [phone] Comment on above: Reference Range: 1.2 0 - 7.70 Complete Blood Count + Differential 2.2 % 0.0 - 6.0 [facility] Work Phone: Complete Blood Count + Differential 0.3 % 0.0 - 0.9 [facility] Work Phone: Comment on above: Immature Granulocyte Count (IG) includes promyelocytes, myelocytes and metamyelocytes but does not include bands. Percent differential counts (%) should be interpreted in the context of the absolute cell counts (cells/L). Electrocardiogram 12 Leadon 10-21-2022 Electrocardiogram 12 Lead Ventricular Rate 64 Atrial Rate 64 P-R Interval 172 QRS Duration 84 Q-T Interval 398 QTC Calculation(Bazett) 410 P [place] 22 R [place] 17 T [place] 32 QRS Count 11 Q Onset 225 P Onset 139 P Offset 198 T Offset 424 QTC Fredericia 406 Diagnosis Class Borderline Normal Diagnosis Normal sinus rhythm Early transition Otherwise normal ECG No previous ECGs available Confirmed by Curtis Trejo ([id number]) on 10/24/2022 9:27:12 AM Normal [facility] [place] [facility] - Chemistry and C hemistry - challengeon 10-21-2022 Albumin BCP dye [Mass/Vol] 4.0 g/dL 3.4 - 5.0 [facility] Work Phone: ALP [Catalytic activity/Vol] 127 U/L 33 - 136 [facility] Work Phone: ALT With P-5'-P [Catalytic activity/Vol] 16 U/L 10 - 52 [facility] Work Phone: Comment on above: Patients treated wit h Sulfasalazine may generate falsely decreased results for ALT. Anion gap [Moles/Vol] 12 mmol/L 10 - 20 [facility] Work Phone: AST With P-5'-P [Catalytic activity/Vol] 21 U/L 9 - 39 [facility] Work Phone: Bilirubin [Mass/Vol] 0.6 mg/dL 0.0 - 1.2 [facility] [place] Work Phone: Calcium [Mass/Vol] 9.3 mg/dL 8.6 - 10.[address] [facility] [place] Work Phone: Chloride [Moles/Vol] 103 mmol/L 98 - 107 [facility] [place] Work Phone: CO2 [Moles/Vol] 27 mmol/L 21 - 32 [facility] [place] Work Phone: Creatinine [Mass/Vol] 1.29 mg/dL See Below -[facility] [place] Work Phone: Comment on above: Reference Range: 0.5 0 - 1.30 Glucose [Mass/Vol] 103 mg/dL above high threshold 74 - 99 [facility] [place] Work Phone: Potassium [Moles/Vol] 3.8 mmol/L 3.5 - 5.3 [facility] [place] Work Phone: Protein [Mass/Vol] 7.4 g/dL 6.4 - 8.[address] [facility] [place] Work Phone: Sodium [Moles/Vol] 138 mmol/L 136 - [address] [facility] [place] Work Phone: Urea nitrogen [Mass/Vol] 11 mg/dL 6 - 23 [facility] [place] Work Phone: Laboratory - Coagulationon 0 - INR Coag (PPP) [Relative time] 1.4 {INR} above high threshold 0.9 - 1.1 [facility] [place] Work Phone: PT Coag (PPP) [Time] 16.2 s above high threshold 9.8 - 12.8 [facility] [place] Work Phone: Comment on above: Note new reference r jana as of 08/13/2022 at 10:00am. MRSA Screenon 10-21-2022 Staphylococcus sp identified Org specific cx Nom (Unsp spec) Abnormal [facility] [place] Work Phone: No Panel Informationon 10-21 [email or web address] ?RetrieveTestByDateTime?Pa brozzSM=[id number]&Date=&Time=14%3a28%3a16% 3a00&TestType=ECG&Site=1&O utputType=PDF&Ext=PDF [facility] [place] Work Phone: Normal sinus rhythm [facility] [place] Work Phone: [phone] Borderline Normal [facility] [place] Work Phone: [phone] [facility] [place] Work Phone: [phone] [facility] [place] Work Phone: [phone] [facility] [place] Work Phone: [phone] [facility] [place] Work Phone: [phone] [facility] [place] Work Phone: [phone] [facility] [place] Work Phone: [phone] [facility] [place] Work Phone: [phone] [facility] [place] Work Phone: [phone] [facility] [place] Work Phone: [phone] [facility] [place] Work Phone: [phone] [facility] [place] Work Phone: [phone] [facility] [place] Work Phone: [phone] [facility] [place] Work Phone: 1 -[facility] [place] Work Phone: {mL/min/1.73m2} >90 [facility] [place] Work Phone: Comment on above: CALCULATIONS OF MEGAN MATED GFR ARE PERFORMED USING THE 2020 CKD-EPI STUDY REFIT EQUATION WITHOUT THE RACE VARIABLE FOR THE IDMS-TRACEABLE CREATININE METHODS.https://jasn.asnjournals.org/content/early/ASN .6768264494 PT/INRon 10-21-2022 PT Coag (PPP) [Time] 16.2 s High 9.8 - 12.8 [facility] Comment on above: Result Comment: Note new reference range as of 08/13/2022 at 10:00am. 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 (procedure may be cancelled if no regional intermodal truck driver), center location, insurance information Prep Instructions Reviewedyes Prep TypeCHG wipes Instructed to Have No Fluids AfterNPO after midnight How to be AddressedGarry Spoken Language PreferredEnglish Source of Informationpatient Stated Reason for AdmissionBack surgery Primary Contact Name and NumberJose Carlos (brother) [phone] Other Contact Names and NumbersDon Ady (friend) [phone] Limitations on Visitors/Phone Callsnone Medications Brought to Hospitalno General Health: Weight in kg90.4 kilogram(s) Weight in wir528.2 pound(s) Weight Methodactual (measured) Scale Typestanding Height [...] CommentsLives with brother Resource/Environmental Concernsnone Anticipated Transition Toorion Services Anticipated at Transitionnone Tobacco Use: Tobacco Useno former cigar smoker, quit 15 years ago Pre-op Checklist: Arrival [id number]-Tmz-0266 Arrival Time09:25 Procedure TypeL2-3, L3-4 LAMINECTOMY, L3-4 INSTRUMENTATION, L2-3, L3-4 POSTERIOR LATERAL FUSION, L3-4LATERAL LUMBAR INTERBODY FUSION NPOyes Last Food Sshxlz89-Tvs-0178 18:30 Last Clear Fluid Afmrij83-Aut-4515 19:00 ID Band On Patientpatient ID (name), falls risk Consent Signedyes H&P Completeyes Anesthesia Assessment Completedpending EKG Performedsee results tab Chest X-Ray Performednot ordered Preop Antibioticssent to OR Beta-sushant Last Dose Date/Bhcx30-Qjf-7737 02:30 Glucose Resultn/a Type and Screen Resultedn/a [...] 04-Nov-2022 05:56 by Moira Marsh (SANTI) Normal [facility] STAPH/MRSA SCREENon 10-22-19 STAPH/MRSA SCREEN PATIENT: ERIK MORALES LOCATION: [facility]#: [id number] : 55 AGE: SEX: M ORDERED BY: CURTIS MELÉNDEZ SOURCE: [facility] COLLECTED: 10/21/22 14:18 ANTIBIOTICS AT TEDDY.: RECEIVED : 10/21/22 21:56 SITE: R E S U L T S STAPH/MRSA SCREEN FINAL 10/23/22 12:12 ISOLATE1 : Staphylococcus aureus METHICILLIN SENSITIVE STAPHYLOCOCCUS AUREUS (MSSA) Normal [facility] Comment on above: Performed By: #### S TAPH #### [facility] [address] [place] [address] URINALYSIS WITH CULTURE IF I NDICATEDon 10-21-2022 Appearance (U) CLEAR Normal CLEAR [facility] Comment on above: Performed By: #### U ARFX #### [address] [id number] Bilirubin Ql (U) Negative Normal NEGATIVE [facility] Comment on above: Performed By: #### U ARFX #### [address] [id number] Color (U) YELLOW Normal STRAW,YELLO W [facility] Comment on above: Performed By: #### U ARFX #### [address] [id number] Glucose Ql (U) Negative Normal NEGATIVE [facility] Comment on above: Performed By: #### U ARFX #### [address] [id number] Hemoglobin Ql (U) Negative Normal NEGATIVE [facility] Comment on above: Performed By: #### U ARFX #### [address] [id number] Ketones Ql (U) Negative Normal NEGATIVE [facility] Comment on above: Performed By: #### U ARFX #### [address] [id number] Leukocyte esterase Test strip Ql (U) Negative Normal NEGATIVE [facility] Comment on above: Performed By: #### U ARFX #### [address] [id number] Nitrite Ql (U) Negative Normal NEGATIVE [facility] Comment on above: Performed By: #### U ARFX #### [address] [id number] pH (U) 6.0 [pH] Normal 5.0 - 8.0 [facility] Comment on above: Performed By: #### U ARFX #### [address] [id number] Protein Ql (U) Negative Normal NEGATIVE [facility] Comment on above: Performed By: #### U ARFX #### [address] [id number] Specific gravity (U) [Rel density] 1.010 Normal 1.005 - 1.035 [facility] Comment on above: Performed By: #### U ARFX #### [address] [id number] Urobilinogen (U) [Mass/Vol] mg/dL Normal 0.0 - 1.9 [facility] Comment on above: Performed By: #### U ARFX #### [address] [id number] Color (U) YELLOW See Below [facility] Work Phone: [phone] Comment on above: Reference Range: STR AW,YELLOW Glucose Ql (U) Negative NEGATIVE [facility] Work Phone: [phone] Ketones Ql (U) Negative NEGATIVE [facility] [place] Work Phone: [phone] Leukocyte esterase Test strip Ql (U) Negative NEGATIVE [facility] Work Phone: [phone] pH (U) 6.0 [pH] 5.0 - 8.0 [facility] Work Phone: [phone] Protein (U) [Mass/Vol] Negative NEGATIVE -[facility] [place] Work Phone: [phone] RBC (U) [#/Vol] Negative NEGATIVE [facility] [place] Work Phone: [phone] Specific gravity (U) [Rel density] 1.010 1 See Below -[facility] Work Phone: [phone] Comment on above: Reference Range: 1.0 05 - 1.035 URINALYSIS WITH CULTURE IF INDICATED Negative NEGATIVE [facility] [place] Work Phone: [phone] URINALYSIS WITH CULTURE IF INDICATED <2.0 0.0 - 1.9 [facility] Work Phone: URINALYSIS WITH CULTURE IF INDICATED CLEAR CLEAR [facility] Work Phone: Established Visit (Orthopaed ic Surgery)on 09-19-2022 Established Visit (Orthopaedic Surgery) Orders Back pain, Other intervertebral disc degeneration, lumbar region [facility]; Status:Need Information - Financial Authorization; Requested for:[id number]; Osteogenesic Stimulator; Status:Active; Requested for:[id number]; Provider Impressions Assessment: At this time, I [...] included)... Normal [employer] Initial Visit (Orthopaedic [facility])on 08-23-2022 Initial Visit (Orthopaedic Surgery) Provider Impressions [...] plates and the interbody cage is a [place] cage. He currently has stenosis at L2-L3 [...] back pain with RT sided pain to [facility] x 2 months. h/o sx in 1998. thoracic and lumbar xrays and MRI in [place]. brought a disc. History of Present IllnessGarry is a new patient to us, new [...] to the pain management center down in [place]. Review of Systems Review of systems, past [...] XR Lumbar spine AP and Lateral Normal [facility] Work Phone: SPINE, LUMBOSACRAL 2 OR 3 EWSon 08-23-2022 SPINE, LUMBOSACRAL 2 OR 3 VIEWS Patient Name: ERIK MORALES STUDY: SPINE, LUMBOSACRAL; 2 OR 3 VIEWS; ; 08/23/2022 1:37 pm INDICATION: pain M51.36: Other intervertebral disc degeneration, lumbar region M54.9: Back pain. ACCESSION NUMBER(S): [id number] ORDERING CLINICIAN: CURTIS MELÉNDEZ FINDINGS: Flexion-extension x-rays [...] vasculature. Electronically signed by: CURTIS MELÉNDEZ MD [facility] VASC LAB Abdominal Aorta/Nancy ac/IVC Ultraon 07-31-2022 VASC LAB Abdominal Aorta/Iliac/IVC Ultra [address], [address] [place] [address] Vascular Lab Report Abdominal Aorta Iliac Ultrasound/IVC Ultrasound Patient Name: ERIK Mckoy Physician: [id number] Cecilio Go MD, [facility] Study Date: 07/31/2022 Referring CECILIO GO Physician: MRN/PID: [id number] PCP: Carmen Witt Accession/Order#: [id number] CC Report to: Date of : 1955 Technologist: Karol Hull RDCS Dali Gender: M Technologist 2: Admission Status: Outpatient Location Performed: [facility] Diagnosis/ICD: I71.43-Infrarenal abdominal aortic aneurysm, without rupture Indication: HTN, Hyperlipidemia, Obesity, Former Smoker, Dyspnea, Pulmonary Fibrosis Procedure/CPT: 34190 Duplex Aorta/IVC/Iliac/Bypass Graft-[id number] CONCLUSIONS: Aorta/Common Iliac Arteries/IVC: Infrarenal fusiform abdominal [...] Proximal 0.71 cm 0.96 cm 0.96 cm/s [id number] Cecilio Go MD, FACC Final Normal [facility] VAS LAB Abdominal Aorta/Nancy ac/IVC Ultrasoundon 07-31-2022 VAS LAB Abdominal Aorta/Iliac/IVC Ultrasound -[facility] [address] DO Work Phone: [...] IRAIS LORENZANA Date: 2022-07-02 13:50 Normal [facility] Office Visit (Cardiology)on 06-04-2022 Follow-up visit [...] Weight Tips; Status:Complete - Retrospective Authorization; Done: [id number] Some eating tips that can help you lose weight.; Status:Complete - Retrospective Authorization; Done: [id number] SocHx: Former smoker Tobacco Use Screening; Status:Complete; Done: [id number] Patient Instructions Please bring all medicines, vitamins, [...] rashes. Neurologic (more content not included)... Normal [employer] Tobacco Screening.on 023 Adult depression screening assessment No [facility] [address] DO Work Phone: Fall risk assessment a) No falls within the last year [facility] [employer] [place] [address] DO Work Phone: Tobacco use status [facility] b) No [facility] [place] [facility] [place] Work Phone: CREATININEon 02-18-2022 Creatinine [Mass/Vol] 1.23 mg/dL Normal 0.70-1.30 [facility] Comment on above: Performed By: #### E RUR #### [facility] [address] [address] [address] Arielle Biswas EGFR-AF ARGENTINE >60 Normal >=60 [facility] Comment on above: Performed By: #### E RUR #### [facility] [address] [place] [address] Dr. Arielle Biswas EGFR-NON AF ARGENTINE 59 mL/min/1.73m2 Critically low >=60 [facility] Comment on above: Performed By: #### E RUR #### [facility] [address] [place] [address] CHEST W CONon [...] BRITANY TSANG Date: 2022-02-18 15:28 Normal [facility] Office Visit (Cardiology)on 12-11-2021 Follow-up visit [...] pulmonary embolism. Recently follow-up CT scan at [facility] revealed resolution of the pulmonary emboli. Some other pathology was noted with densities requiring follow-up imaging in 3 to 6 months which has been arranged through his PCP. He is currently anticoagulated with Eliquis. The patient is contemplating further dental work in December which he should be able to hold anticoagulation prior to. Recent nuclear stress test at [facility] was reviewed and shared with the patient and was normal. He is also known to have normal ejection fraction. He currently has no complaint to report physical examination was only remarkable for 8 pounds weight gain from last visit. He is now in the obesity range recent medical record from [facility] were reviewed with the patient and [...] palpitations, but (more content not included)... Normal [employer] Tobacco Screening.on Fall risk assessment a) No falls within the last year [facility] [employer] 250 DO Work Phone: Tobacco use status [facility] b) No [facility] [employer] 250 DO Work Phone: Tobacco Screening. Yes [facility] [employer] [place] 250 DO Work Phone: CTA CHEST [...] by: BRITANY TSANG Date: 2021-11-05 11:08 Normal [facility] NM STRESS/REST MULTIon 10-17 HI STRESS/REST MULTI Patient: ERIK MORALES Exam Date: 10/17/2021 : 1955 Gender:M Ordering : DR CARMEN WITT . Admission #: [id number] Family : Order #: [id number] CLICK HERE TO VIEW EXAM RADIOLOGY REPORT [...] M.D. on 10/17/2021 at 13:48 Normal [facility] T4, T3U, FTI LABCORPon 10-10 Free Thyroxine Index 2.1 Normal 1.2-4.9 [facility] Comment on above: Performed By: #### E RUR #### [facility] [address] [place] [address] Dr. Arielle Biswas T3 Uptake 28 % Normal 24-39 [facility] Comment on above: Performed By: #### E RUR #### [facility] [address] [place] [address] Dr. Arielle Biswas T4 [Mass/Vol] 7.5 ug/dL Normal 4.5-12.0 [facility] Comment on above: Performed By: #### E RUR #### [facility] [address] [place] [address] Dr. Arielle Biswas BNPon 10-09-2021 Natriuretic peptide B (Bld) [Mass/Vol] 319.0 pg/mL Normal <=900.0 [facility] Comment on above: Performed By: #### B STATEMENT CLERKS SUPERVISOR, TSH, CMP #### [facility] [address] [place] [address] Dr. Arielle Biswas CBC AUTO DIFFon 10-09-2021 BASO # 0.1 103/ul Normal 0.0-0.1 [facility] Comment on above: Performed By: #### C BC #### [facility] [address] [place] [address] Dr. Arielle Biswas Basophils/100 WBC (Bld) 1.3 % Normal 0.2-2.0 [facility] Comment on above: Performed By: #### C BC #### [facility] [address] [place] [address] Dr. Arielle Biswas EO # 0.2 103/ul Normal 0.0-0.7 [facility] Comment on above: Performed By: #### C BC #### [facility] [address] [place] [address] Dr. Arielle Biswas Eosinophils/100 WBC (Bld) 3.0 % Normal 0.9-7.0 [facility] Comment on above: Performed By: #### C BC #### [facility] [address] [place] [address] Dr. Arielle Biswas Erythrocyte distribution width (RBC) [Ratio] 13.5 % Normal 11.0-15.0 [facility] Comment on above: Performed By: #### C BC #### [facility] [address] [place] [address] Dr. Arielle Biswas Hematocrit (Bld) [Volume fraction] 41.8 % Critically low 42.0-54.0 [facility] Comment on above: Performed By: #### C BC #### [facility] [address] [place] [address] Dr. Arielle Biswas Hemoglobin (Bld) [Mass/Vol] 13.6 g/dL Critically low 14.0-18.0 [facility] Comment on above: Performed By: #### C BC #### [facility] [address] [place] [address] Dr. Arielle Biswas IG # 0.03 10e3/ul Normal 0.00-0.03 [facility] Comment on above: Performed By: #### C BC #### [facility] [address] [place] [address] Dr. Arielle Biswas IG % 0.4 % Normal 0.0-0.5 [facility] Comment on above: Performed By: #### C BC #### [facility] [address] [address] [address] Arielle Biswas LYMPH # 1.2 103/ul Normal 1.2-3.8 [facility] Comment on above: Performed By: #### C BC #### [facility] [address] [address] [address] Arielle Biswas Lymphocytes/100 WBC (Bld) 16.5 % Critically low 20.5-60.0 [facility] Comment on above: Performed By: #### C BC #### [facility] [address] [place] [address] Dr. Arielle Biswas MANUAL DIFF REQ NO Normal [facility] Comment on above: Performed By: #### C BC #### [facility] [address] [place] [address] Dr. Arielle Biswas MCH (RBC) [Entitic mass] 31.2 pg Normal 25.9-34.0 [facility] Comment on above: Performed By: #### C BC #### [facility] [address] [place] [address] Dr. Arielle Biswas MCHC (RBC) [Mass/Vol] 32.5 g/dL Normal 29.9-35.2 [facility] Comment on above: Performed By: #### C BC #### [facility] [address] [place] [address] Dr. Arielle Biswas MCV (RBC) [Entitic vol] 95.9 fL Critically high 80.0-94.0 [facility] Comment on above: Performed By: #### C BC #### [facility] [address] [place] [address] Dr. Arielle Biswas MONO # 0.8 103/ul Normal 0.3-0.8 [facility] Comment on above: Performed By: #### C BC #### [facility] [address] [place] [address] Dr. Arielle Biswas Monocytes/100 WBC (Bld) 11.5 % Normal 1.7-12.0 [facility] Comment on above: Performed By: #### C BC #### [facility] [address] [address] [address] Arielle Biswas NEUT # 4.7 103/ul Normal 1.4-6.5 [facility] Comment on above: Performed By: #### C BC #### [facility] [address] [address] [address] Arielle Biswas Neutrophils/100 WBC (Bld) 67.3 % Normal 43.0-75.0 [facility] Comment on above: Performed By: #### C BC #### [facility] [address] [place] [address] Dr. Arielle Biswas Platelet mean volume (Bld) [Entitic vol] 10.2 fL Normal 9.5-13.5 [facility] Comment on above: Performed By: #### C BC #### [facility] [address] [place] [address] Dr. Arielle Biswas PLT 243 103/ul Normal 150-450 [facility] Comment on above: Performed By: #### C BC #### [facility] [address] [place] [address] Dr. Arielle Biswas RBC 4.36 106/ul Critically low 4.70-6.10 [facility] Comment on above: Performed By: #### C BC #### [facility] [address] [place] [address] Dr. Arielle Biswas WBC 7.0 103/ul Normal 4.0-11.0 [facility] Comment on above: Performed By: #### C BC #### [facility] [address] [place] [address] Dr. Arielle Biswas D-DIMERon 10-09-2021 D-DIMER 0.30 mg/L FEU Normal <=0.59 [facility] Comment on above: Performed By: #### E RUR #### [facility] [address] [place] [address] Dr. Arielle Biswas D-DIMER COMMENTS SEE BELOW Normal [facility] Comment on above: Result Comment: Incr [...] hospitalization. Performed By: #### E RUR #### [facility] [address] [place] [address] Dr. Arielle Biswas PROF 14(COMP METB)on 022 Albumin [Mass/Vol] 3.0 g/dL Critically low 3.4-5.0 [facility] Comment on above: Performed By: #### B STATEMENT CLERKS SUPERVISOR, TSH, CMP #### [facility] [address] [place] [address] Dr. Arielle Biswas Albumin/Globulin [Mass ratio] 0.8 {ratio} Normal [facility] Comment on above: Performed By: #### B STATEMENT CLERKS SUPERVISOR, TSH, CMP #### [facility] [address] [place] [address] Dr. Arielle Biswas ALP [Catalytic activity/Vol] 120 U/L Critically high 46-116 [facility] Comment on above: Performed By: #### B STATEMENT CLERKS SUPERVISOR, TSH, CMP #### [facility] [address] [place] [address] Dr. Arielle Biswas ALT [Catalytic activity/Vol] 21 U/L Normal 16-63 [facility] Comment on above: Performed By: #### B STATEMENT CLERKS SUPERVISOR, TSH, CMP #### [facility] [address] [place] [address] Dr. Arielle Biswas Anion gap [Moles/Vol] 9.9 mmol/L Normal [facility] Comment on above: Performed By: #### B STATEMENT CLERKS SUPERVISOR, TSH, CMP #### [facility] [address] [place] [address] Dr. Arielle Biswas AST [Catalytic activity/Vol] 20 U/L Normal 15-37 [facility] Comment on above: Performed By: #### B STATEMENT CLERKS SUPERVISOR, TSH, CMP #### [facility] [address] [place] [address] Dr. Arielle Biswas Bilirubin [Mass/Vol] 0.6 mg/dL Normal 0.2-1.0 [facility] Comment on above: Performed By: #### B STATEMENT CLERKS SUPERVISOR, TSH, CMP #### [facility] [address] [place] [address] Dr. Arielle Biswas Calcium [Mass/Vol] 8.8 mg/dL Normal 8.5-10.1 [facility] Comment on above: Performed By: #### B STATEMENT CLERKS SUPERVISOR, TSH, CMP #### [facility] [address] [place] [address] Dr. Arielle Biswas Chloride [Moles/Vol] 103 mmol/L Normal 98-107 [facility] Comment on above: Performed By: #### B STATEMENT CLERKS SUPERVISOR, TSH, CMP #### [facility] [address] [place] [address] Dr. Arielle Biswas CO2 [Moles/Vol] 29.0 mmol/L Normal 21.0-32.0 [facility] Comment on above: Performed By: #### B STATEMENT CLERKS SUPERVISOR, TSH, CMP #### [facility] [address] [place] [address] Dr. Arielle Biswas Creatinine [Mass/Vol] 1.23 mg/dL Normal 0.70-1.30 [facility] Comment on above: Performed By: #### B STATEMENT CLERKS SUPERVISOR, TSH, CMP #### [facility] [address] [place] [address] Dr. Arielle Biswas EGFR-AF ARGENTINE >60 Normal >=60 [facility] Comment on above: Performed By: #### B STATEMENT CLERKS SUPERVISOR, TSH, CMP #### [facility] [address] [place] [address] Dr. Arielle Biswas EGFR-NON AF ARGENTINE 59 mL/min/1.73m2 Critically low >=60 [facility] Comment on above: Performed By: #### B STATEMENT CLERKS SUPERVISOR, TSH, CMP #### [facility] [address] [place] [address] Dr. Arielle Biswas Globulin (S) [Mass/Vol] 3.7 g/dL Normal [facility] Comment on above: Performed By: #### B STATEMENT CLERKS SUPERVISOR, TSH, CMP #### [facility] [address] [address] [address] Arielle Biswas Glucose [Mass/Vol] 95 mg/dL Normal 74-106 [facility] Comment on above: Performed By: #### B STATEMENT CLERKS SUPERVISOR, TSH, CMP #### [facility] [address] [address] [address] Arielle Biswas Potassium [Moles/Vol] 3.9 mmol/L Normal 3.5-5.1 [facility] Comment on above: Performed By: #### B STATEMENT CLERKS SUPERVISOR, TSH, CMP #### [facility] [address] [address] [address] Arielle Biswas Protein [Mass/Vol] 6.7 g/dL Normal 6.4-8.2 [facility] Comment on above: Performed By: #### B STATEMENT CLERKS SUPERVISOR, TSH, CMP #### [facility] [address] [place] [address] Dr. Arielle Biswas Sodium [Moles/Vol] 138 mmol/L Normal 136-145 [facility] Comment on above: Performed By: #### B STATEMENT CLERKS SUPERVISOR, TSH, CMP #### [facility] [address] [address] [address] Arielle Biswas Urea nitrogen [Mass/Vol] 13.0 mg/dL Normal 7.0-18.0 [facility] Comment on above: Performed By: #### B STATEMENT CLERKS SUPERVISOR, TSH, CMP #### [facility] [address] [place] [address] Dr. Arielle Biswas Urea nitrogen/Creatinine [Mass ratio] 10.6 mg/mg Normal [facility] Comment on above: Performed By: #### B STATEMENT CLERKS SUPERVISOR, TSH, CMP #### [facility] [address] [place] [address] Dr. Arielle Biswas TSHon 10-09-2021 TSH 0.393 uIU/mL Normal 0.358-3.740 [facility] Comment on above: Performed By: #### B STATEMENT CLERKS SUPERVISOR, TSH, CMP #### [facility] [address] [place] [address] Dr. Arielle Biswas Tobacco Screening.on 022 [facility] depression [facility] [place] [facility] [place] Work Phone: Fall risk assessment a) No falls within the last year [facility] [place] [address] DO Work Phone: Tobacco use status [facility] b) No [facility] [place] [address] DO Work Phone: CARDIAC DAVON 3-6on 2 CK [Catalytic activity/Vol] 80 U/L Normal 39-308 [facility] Comment on above: Performed By: #### E RUR #### [facility] [address] [place] [address] Dr. Arielle Biswas CK.MB [Mass/Vol] 2.19 ng/mL Normal <=3.60 [facility] Comment on above: Performed By: #### E RUR #### [facility] [address] [place] [address] Dr. Arielle Biswas HSTROP 152.1 pg/mL Critically high 4.0-76.1 [facility] Comment on above: Result Comment: CUT- OFF POINTS HAVE BEEN ESTABLISHED BASED ON THE FOURTH UNIVERSAL DEFINITIONS OF MYOCARDIAL INFARCTION. THE UPPER REFERENCE LIMIT (URL) OF TROPONIN, DEFINED THE 99TH PERCENTILE OF cTnI DISTRIBUTION IN A REFERENCE POPULATION, HAS BEEN CONFIRMED THE DECISION THRESHOLD FOR [place] DIAGNOSIS. repeated Performed By: #### E RUR #### [facility] [address] [place] [address] Dr. Arielle Biswas CARDIAC DAVON ADMITon 022 CK [Catalytic activity/Vol] 32 U/L Critically low 39-308 [facility] Comment on above: Performed By: #### B MANJULA ESTESDM #### [facility] [address] [place] [address] Dr. Arielle Biswas CK.MB [Mass/Vol] 2.01 ng/mL Normal <=3.60 [facility] Comment on above: Performed By: #### B MANJULA ESTESDM #### [facility] [address] [place] [address] Dr. Arielle Biswas HSTROP 144.5 pg/mL Critically high 4.0-76.1 [facility] Comment on above: Result Comment: CUT- OFF POINTS HAVE BEEN ESTABLISHED BASED ON THE FOURTH UNIVERSAL DEFINITIONS OF MYOCARDIAL INFARCTION. THE UPPER REFERENCE LIMIT (URL) OF TROPONIN, DEFINED THE 99TH PERCENTILE OF cTnI DISTRIBUTION IN A REFERENCE POPULATION, HAS BEEN CONFIRMED THE DECISION THRESHOLD FOR [place] DIAGNOSIS. repeated Performed By: #### B FRANKLYN, CMADM #### [facility] [address] [place] [address] Dr. Arielle Biswas PJ 39 ng/mL Normal 16-96 [facility] Comment on above: Performed By: #### B FRANKLYN, CMADM #### [facility] [address] [place] [address] Dr. Arielle Biswas CBC AUTO DIFFon 07-14-2021 BASO # 0.1 103/ul Normal 0.0-0.1 [facility] Comment on above: Performed By: #### E RUR #### [facility] [address] [place] [address] Dr. Arielle Biswas Basophils/100 WBC (Bld) 0.5 % Normal 0.2-2.0 [facility] Comment on above: Performed By: #### E RUR #### [facility] [address] [place] [address] Dr. Arielle Biswas EO # 0.1 103/ul Normal 0.0-0.7 [facility] Comment on above: Performed By: #### E RUR #### [facility] [address] [place] [address] Dr. Arielle Biswas Eosinophils/100 WBC (Bld) 0.6 % Critically low 0.9-7.0 [facility] Comment on above: Performed By: #### E RUR #### [facility] [address] [place] [address] Dr. Arielle Biswas Erythrocyte distribution width (RBC) [Ratio] 14.6 % Normal 11.0-15.0 [facility] Comment on above: Performed By: #### E RUR #### [facility] [address] [place] [address] Dr. Arielle Biswas Hematocrit (Bld) [Volume fraction] 45.5 % Normal 42.0-54.0 [facility] Comment on above: Performed By: #### E RUR #### [facility] [address] [address] [address] Arielle Biswas Hemoglobin (Bld) [Mass/Vol] 14.5 g/dL Normal 14.0-18.0 [facility] Comment on above: Performed By: #### E RUR #### [facility] [address] [address] [address] Arielle Biswas IG # 0.13 10e3/ul Critically high 0.00-0.03 [facility] Comment on above: Performed By: #### E RUR #### [facility] [address] [place] [address] Dr. Arielle Biswas IG % 0.8 % Critically high 0.0-0.5 [facility] Comment on above: Performed By: #### E RUR #### [facility] [address] [place] [address] Dr. Arielle Biswas LYMPH # 1.4 103/ul Normal 1.2-3.8 [facility] Comment on above: Performed By: #### E RUR #### [facility] [facility] [address] [place] [address] Dr. Arielle Biswas Lymphocytes/100 WBC (Bld) 8.7 % Critically low 20.5-60.0 [facility] Comment on above: Performed By: #### E RUR #### [facility] [address] [place] [address] Dr. Arielle Biswas MANUAL DIFF REQ NO Normal [facility] Comment on above: Performed By: #### E RUR #### [facility] [address] [place] [address] Dr. Arielle Biswas MCH (RBC) [Entitic mass] 30.5 pg Normal 25.9-34.0 [facility] Comment on above: Performed By: #### E RUR #### [facility] [address] [place] [address] Dr. Arielle Biswas MCHC (RBC) [Mass/Vol] 31.9 g/dL Normal 29.9-35.2 [facility] Comment on above: Performed By: #### E RUR #### [facility] [address] [address] [address] Arielle Biswas MCV (RBC) [Entitic vol] 95.6 fL Critically high 80.0-94.0 [facility] Comment on above: Performed By: #### E RUR #### [facility] [address] [address] [address] Arielle Biswas MONO # 1.1 103/ul Critically high 0.3-0.8 [facility] Comment on above: Performed By: #### E RUR #### [facility] [address] [address] [address] Arielle Biswas Monocytes/100 WBC (Bld) 7.1 % Normal 1.7-12.0 [facility] Comment on above: Performed By: #### E RUR #### [facility] [address] [place] [address] Dr. Arielle Biswas NEUT # 12.9 103/ul Critically high 1.4-6.5 [facility] Comment on above: Performed By: #### E RUR #### [facility] [address] [place] [address] Dr. Arielle Biswas Neutrophils/100 WBC (Bld) 82.3 % Critically high 43.0-75.0 [facility] Comment on above: Performed By: #### E RUR #### [facility] [address] [place] [address] Dr. Arielle Biswas Platelet mean volume (Bld) [Entitic vol] 9.7 fL Normal 9.5-13.5 [facility] Comment on above: Performed By: #### E RUR #### [facility] [address] [place] [address] Dr. Arielle Biswas PLT 206 103/ul Normal 150-450 [facility] Comment on above: Performed By: #### E RUR #### [facility] [address] [place] [address] Dr. Arielle Biswas RBC 4.76 106/ul Normal 4.70-6.10 [facility] Comment on above: Performed By: #### E RUR #### [facility] [address] [place], [place] [address] Dr. Arielle Biswas WBC 15.6 103/ul Critically high 4.0-11.0 [facility] Comment on above: Performed By: #### E RUR #### [facility] [address] [place], [place] [address] Dr. Arielle Biswas CTA CHEST WO W CONon 022 CTA CHEST WO W CON EXAM: [...] H (more content not included)... Normal [facility] Covid-19 PCR (CVDTBH)on 06-25 SARS-CoV-2 (COVID-19) RNA ELKIN+probe Ql (Unsp spec) Not detected Normal NOT DETECTED [facility] Comment on above: Result Comment: When diagnostic testing is negative, the possibility of a false negative should be considered in the context of a patient's recent exposures and the presence of clinical signs and symptoms consistent with SARS-CoV-2. This test is not yet approved or cleared by the [place] Food and Drug Administration (FDA). This test was developed by [employer], [place], [place]. The performance characteristics of this test were validated by [facility]. The results are not intended to be used as the sole means for clinical diagnosis or patient management decisions. [facility] is authorized under Clinical Laboratory Improvement [...] for this test is supported by the [employer] of Health and Human Service's declaration that [...] used). Performed By: #### E RUR #### [facility] [address] [place] [address] Dr. Arielle Biswas ER URINE PROFILEon 2 Bilirubin Ql (U) Negative Normal NEGATIVE [facility] Comment on above: Performed By: #### E RUR #### [facility] [address] [place] [address] Dr. Arielle Biswas Clarity (U) CLEAR Normal CLEAR [facility] Comment on above: Performed By: #### E RUR #### [facility] [address] [place] [address] Dr. Arielle Biswas Color (U) LT. YELLOW Normal YELLOW [facility] Comment on above: Performed By: #### E RUR #### [facility] [address] [place] [address] Dr. Arielle Biswas ERUAHD A micrscopic examina tion will be performed if indicated. Normal [facility] Comment on above: Performed By: #### E RUR #### [facility] [address] [place] [address] Dr. Arielle Biswas Glucose Ql (U) Negative Normal NEGATIVE [facility] Comment on above: Performed By: #### E RUR #### [facility] [address] [place] [address] Dr. Arielle Biswas Hemoglobin Ql (U) Negative Normal NEGATIVE [facility] Comment on above: Performed By: #### E RUR #### [facility] [address] [place] [address] Dr. Arielle Biswas Ketones Ql (U) Negative Normal NEGATIVE [facility] Comment on above: Performed By: #### E RUR #### [facility] [address] [place] [address] Dr. Arielle Biswas LEUKOCYTES Negative Normal NEGATIVE [facility] Comment on above: Performed By: #### E RUR #### [facility] [address] [place] [address] Dr. Arielle Biswas Nitrite Ql (U) Negative Normal NEGATIVE [facility] Comment on above: Performed By: #### E RUR #### [facility] [address] [place] [address] Dr. Arielle Biswas pH (U) 6.0 [pH] Normal 5-9 [facility] Comment on above: Performed By: #### E RUR #### [facility] [address] [place] [address] Dr. Arielle Biswas SPEC GRAVITY 1.005 Normal 1.005-<=1.0 25 [facility] Comment on above: Performed By: #### E RUR #### [facility] [address] [place] [address] Dr. Arielle Biswas UA PROTEIN Negative Normal NEGATIVE/ TRACE [facility] Comment on above: Performed By: #### E RUR #### [facility] [address] [place] [address] Dr. Arielle Biswas UR MICRO IND NOT INDICATED Normal [facility] Comment on above: Performed By: #### E RUR #### [facility] [address] [place] [address] Dr. Arielle Biswas Urobilinogen Qn (U) 0.2 {Fernando'U}/dL Normal 0.2 - 1. 0 [facility] Comment on above: Performed By: #### E RUR #### [facility] [address] [place] [address] Dr. Arielle Biswas LACTATE/LACTIC ACIDon 2021 Lactate [Moles/Vol] 3.0 mmol/L Critically high 0.4-1.9 [facility] Comment on above: Result Comment: repe ated Performed By: #### E RUR #### [facility] [address] [place] [address] Dr. Arielle Biswas PROF CHEM 8 (BAS METB)on Anion gap [Moles/Vol] 14.0 mmol/L Normal [facility] Comment on above: Performed By: #### B MP, CMADM #### [facility] [address] [place] [address] Dr. Arielle Biswas Calcium [Mass/Vol] 8.9 mg/dL Normal 8.5-10.1 [facility] Comment on above: Performed By: #### B FRANKLYN, CMADM #### [facility] [address] [address] [address] Arielle Biswas Chloride [Moles/Vol] 96 mmol/L Critically low 98-107 [facility] Comment on above: Performed By: #### B FRANKLYN, CMADM #### [facility] [address] [address] [address] Arielle Biswas CO2 [Moles/Vol] 26.5 mmol/L Normal 21.0-32.0 [facility] Comment on above: Performed By: #### B FRANKLYN, CMADM #### [facility] [address] [place] [address] Dr. Arielle Biswas Creatinine [Mass/Vol] 1.43 mg/dL Critically high 0.70-1.30 [facility] Comment on above: Performed By: #### B FRANKLYN, CMADM #### [facility] [address] [place] [address] Dr. Arielle Biswas EGFR-AF ARGENTINE 60 mL/min/1.73m2 Normal >=60 [facility] Comment on above: Performed By: #### B FRANKLYN, CMADM #### [facility] [address] [place] [address] Dr. Arielle Biswas EGFR-NON AF ARGENTINE 50 mL/min/1.73m2 Critically low >=60 [facility] Comment on above: Performed By: #### B FRANKLYN, CMADM #### [facility] [address] [address] [address] Arielle Biswas Glucose [Mass/Vol] 122 mg/dL Critically high 74-106 [facility] Comment on above: Performed By: #### B FRANKLYN, CMADM #### [facility] [address] [place] [address] Dr. Arielle Biswas Potassium [Moles/Vol] 3.5 mmol/L Normal 3.5-5.1 [facility] Comment on above: Performed By: #### B FRANKLYN, CMADM #### [facility] [address] [place] [address] Dr. Arielle Biswas Sodium [Moles/Vol] 133 mmol/L Critically low 136-145 [facility] Comment on above: Performed By: #### B FRANKLYN, CMADM #### [facility] [address] [place] [address] Dr. Arielle Biswas Urea nitrogen [Mass/Vol] 12.0 mg/dL Normal 7.0-18.0 [facility] Comment on above: Performed By: #### B FRANKLYN, CMADM #### [facility] [address] [place] [address] Dr. Arielle Biswas Urea nitrogen/Creatinine [Mass ratio] 8.4 mg/mg Normal [facility] Comment on above: Performed By: #### B FRANKLYN, MANJULADM #### [facility] [address] [place] [address] Dr. Arielle Biswas PROTIMEon 07-14-2021 INR Coag (PPP) [Relative time] 0.99 {INR} Normal [facility] Comment on above: Performed By: #### P TT, PT #### [facility] [address] [place] [address] Dr. Arielle Biswas INR GUIDELINES SEE BELOW Normal [facility] Comment on above: Result Comment: YANG RED INR: 2.0 - 3.0 CONDITIONS NOT LISTED BELOW 2.5 - 3.5 FOR PROSTHETIC HEART VALVE REPLACEMENT 2.5 - 3.5 RECURRENT THROMBOSIS Performed By: #### P TT, PT #### [facility] [address] [place] [address] Dr. Arielle Biswas PT Coag (PPP) [Time] 10.7 s Normal 9.0-11.6 [facility] Comment on above: Performed By: #### P TT, PT #### [facility] [address] [place] [address] Dr. Arielle Biswas PTTon 07-14-2021 aPTT Coag (Bld) [Time] 26.6 s Normal 22.3-36.2 [facility] Comment on above: Performed By: #### P TT, PT #### [facility] [address] [address] [address] Arielle Biswas Tobacco Screening.on Fall risk assessment a) No falls within the last year [facility] [address] DO Work Phone: [phone] Tobacco use status CPHS b) No [facility] [address] DO Work Phone: [phone] Tobacco Screening. Yes [facility] [address] DO Work Phone: [phone] Tobacco Screening.on Fall risk assessment a) No falls within the last year [facility] [address] DO Work Phone: [phone] Tobacco use status CPHS b) No [facility] [address] DO Work Phone: [phone] Tobacco Screening.on Fall risk assessment a) No falls within the last year [facility] [address] DO Work Phone: [phone] Tobacco use status CPHS b) No [facility] [address] DO Work Phone: [phone] Vital Signs Date Time Vital Sign Value Performing Clinician Facility 11-17-2023 10:20-0400 Body height 175.26 cm MD Carmen Witt Work Phone: [facility] 11-17-2023 10:20-0400 Body mass index (BMI) [Ratio] 30.4 kg/m2 MD Carmen Witt Work Phone: [facility] 11-17-2023 10:20-0400 Body temperature 97.4 [degF] MD Carmen Witt Work Phone: [facility] 11-17-2023 10:20-0400 Body weight 93.44 kg MD Carmen Witt Work Phone: [facility] 11-17-2023 10:20-0400 Diastolic blood pressure 83 mm[Hg] MD Carmen Witt Work Phone: [facility] 11-17-2023 10:20-0400 Heart rate 69 /min MD Carmen Bess Phone: [facility] 11-17-2023 10:20-0400 Respiratory rate 20 /min MD Carmen Witt Work Phone: [facility] 11-17-2023 10:20-0400 SaO2% (BldA) [Mass fraction] 95 % MD Carmen Witt Work Phone: [facility] 11-17-2023 10:20-0400 Systolic blood pressure 164 mm[Hg] MD Carmen Witt Work Phone: [facility] 08-21-2023 11:11-0400 Body height 175.26 cm MD Carmen Witt Work Phone: [facility] 08-21-2023 11:11-0400 Body mass index (BMI) [Ratio] 29.9 kg/m2 MD Carmen Witt Work Phone: [facility] 08-21-2023 11:11-0400 Body temperature 96.1 [degF] MD Carmen Witt Work Phone: [facility] 08-21-2023 11:11-0400 Body weight 92.07 kg MD Carmen Witt Work Phone: [facility] 08-21-2023 11:11-0400 Diastolic blood pressure 80 mm[Hg] MD Carmen Witt Work Phone: [facility] 08-21-2023 11:11-0400 Heart rate 77 /min MD Carmen Witt Work Phone: [facility] 08-21-2023 11:11-0400 SaO2% (BldA) [Mass fraction] 97 % MD Carmen Witt Work Phone: [facility] 08-21-2023 11:11-0400 Systolic blood pressure 140 mm[Hg] MD Carmen Witt Work Phone: [facility] 04-09-2023 10:04-0500 Body height 175.26 cm MD Jean Nicholson Work Phone: [facility] 04-09-2023 10:04-0500 Body mass index (BMI) [Ratio] 29.9 kg/m2 MD Jean Nicholson Work Phone: [facility] 04-09-2023 10:04-0500 Body temperature 96.7 [degF] MD Jean Nicholson Work Phone: [facility] 04-09-2023 10:04-0500 Body weight 92.07 kg MD Jean Nicholson Work Phone: [facility] 04-09-2023 10:04-0500 Diastolic blood pressure 93 mm[Hg] MD Jean Nicholson Work Phone: [facility] 04-09-2023 10:04-0500 Heart rate 98 /min MD Jean Nicholson Work Phone: [facility] 04-09-2023 10:04-0500 Respiratory rate 20 /min MD Jean Nicholson Work Phone: [facility] 04-09-2023 10:04-0500 SaO2% (BldA) [Mass fraction] 100 % MD Jean Nicholson Work Phone: [facility] 04-09-2023 10:04-0500 Systolic blood pressure 152 mm[Hg] MD Jean Nicholson Work Phone: [facility] 12-23-2022 10:50-0400 Blood Pressure Location Marino SPEAR [facility] 12-23-2022 10:50-0400 Diastolic blood pressure 62 mm[Hg] Marino SPEAR [facility] 12-23-2022 10:50-0400 Heart rate 69 /min Marino SPEAR [facility] 12-23-2022 10:50-0400 Respiratory rate 16 /min Marino SPEAR [facility] 12-23-2022 10:50-0400 Systolic blood pressure 95 mm[Hg] Marino SPEAR [facility] 11-07-2022 10:56-0400 Body temperature 98.6 [degF] [...] Body height 175.26 cm Danna Violeta Other [facility] [employer] Other 10-30-2022 10:00-0400 Body mass index (BMI) [Ratio] 30.27 kg/m2 Danna Violeta Other [employer] Other 10-30-2022 10:00-0400 Body temperature 97 [degF] Danna Violeta Other [facility] [employer] Other 10-30-2022 10:00-0400 Body weight 92.99 kg Danna Violeta Other [employer] Other 10-30-2022 10:00-0400 Diastolic blood pressure 75 mm[Hg] Danna Violeta Other [employer] Other 10-30-2022 10:00-0400 Respiratory rate 20 /min Danna Violeta Other [employer] Other 10-30-2022 10:00-0400 SaO2% (BldA) [Mass fraction] 96 % Danna Violeta Other [employer] Other 10-30-2022 10:00-0400 Systolic blood pressure 116 mm[Hg] Danna Violeta Other [employer] Other 08-23-2022 12:57-0400 Body height 175.26 cm Carmen Preeti Hoy Work Phone: [facility] [place] Work Phone: 08-23-2022 12:57-0400 Body mass index (BMI) [Ratio] 30.57 kg/m2 Carmen M Hoy Work Phone: [facility] [place] Work Phone: 08-23-2022 12:57-0400 Body surface area Derived from formula 2.1 m2 Carmen M Hoy Work Phone: [facility] [facility] [place] Work Phone: 08-23-2022 12:57-0400 Body weight 93.9 kg Carmen M Hoy Work Phone: [facility] [place] Work Phone: 08-20-2022 11:30-0400 Body height 175.26 cm Danna Violeta Other [employer] Other 08-20-2022 11:30-0400 Body mass index (BMI) [Ratio] 30.42 kg/m2 Danna Violeta Other [employer] Other 08-20-2022 11:30-0400 Body temperature 96.8 [degF] Danna Violeta Other [employer] Other 08-20-2022 11:30-0400 Body weight 93.44 kg Danna Violeta Other [employer] Other 08-20-2022 11:30-0400 Diastolic blood pressure 80 mm[Hg] Danna Violeta Other [employer] Other 08-20-2022 11:30-0400 Respiratory rate 20 /min Danna Violeta Other [employer] Other 08-20-2022 11:30-0400 SaO2% (BldA) [Mass fraction] 97 % Danna Violeta Other [employer] Other 08-20-2022 11:30-0400 Systolic blood pressure 142 mm[Hg] Danna Violeta Other [employer] Other 08-15-2022 09:30-0400 Body height 175.26 cm Bianka Garcia Other [employer] Other 08-15-2022 09:30-0400 Body mass index (BMI) [Ratio] 30.57 kg/m2 Bianka Garcia Other [employer] Other 08-15-2022 09:30-0400 Body temperature 96.7 [degF] Bianka Garcia Other [employer] Other 08-15-2022 09:30-0400 Body weight 93.9 kg Bianka Garcia Other [facility] [employer] Other 08-15-2022 09:30-0400 Diastolic blood pressure 70 mm[Hg] Bianka Garcia Other [facility] [employer] Other 08-15-2022 09:30-0400 SaO2% (BldA) [Mass fraction] 98 % Bianka Garcia Other [facility] [employer] Other 08-15-2022 09:30-0400 Systolic blood pressure 118 mm[Hg] Bianka Garcia Other [facility] [employer] Other 06-04-2022 11:33-0400 Body height 175.26 cm Carmen [employer] Work Phone: [facility] [employer] [address] DO Work Phone: 06-04-2022 11:33-0400 Body mass index (BMI) [Ratio] 30.13 kg/m2 Carmen [employer] Hoy Work Phone: [facility] [employer] 250 DO Work Phone: 06-04-2022 11:33-0400 Body surface area Derived from formula 2.08 m2 Carmen [employer] Hoy Work Phone: [facility] 250 DO Work Phone: 06-04-2022 11:33-0400 Body weight 92.53 kg Carmen M Hoy Work Phone: [facility] 250 DO Work Phone: 06-04-2022 11:33-0400 Diastolic blood pressure 72 mm[Hg] Carmen M Hoy Work Phone: [facility] 250 DO Work Phone: 06-04-2022 11:33-0400 Heart rate 68 /min Carmen Álvarez Hoy Work Phone: [facility] [employer] 250 DO Work Phone: 06-04-2022 11:33-0400 Systolic blood pressure 110 mm[Hg] Carmen Álvarez Hoy Work Phone: [facility] [employer] 250 DO Work Phone: 02-05-2022 15:30-0500 Body height 175.26 cm Danna Violeta Other [employer] Other 02-05-2022 15:30-0500 Body mass index (BMI) [Ratio] 29.97 kg/m2 Danna Violeta Other [employer] Other 02-05-2022 15:30-0500 Body temperature 98.4 [degF] Danna Violeta Other [employer] Other 02-05-2022 15:30-0500 Body weight 92.08 kg Danna Violeta Other [employer] Other 02-05-2022 15:30-0500 Diastolic blood pressure 83 mm[Hg] Danna Violeta Other [employer] Other 02-05-2022 15:30-0500 Respiratory rate 20 /min Danna Violeta Other [employer] Other 02-05-2022 15:30-0500 SaO2% (BldA) [Mass fraction] 96 % Danna Violeta Other [employer] Other 02-05-2022 15:30-0500 Systolic blood pressure 143 mm[Hg] Danna Violeta Other [employer] Other 12-11-2021 11:39-0400 Body height 175.26 cm Jean Saeed Naderer Work Phone: [facility] [employer] 250 DO Work Phone: 12-11-2021 11:39-0400 Body mass index (BMI) [Ratio] 30.72 kg/m2 Jean Christophe Naderer Work Phone: [facility] 250 DO Work Phone: 12-11-2021 11:39-0400 Body surface area Derived from formula 2.1 m2 Jean Christophe Naderer Work Phone: [facility] 250 DO Work Phone: 12-11-2021 11:39-0400 Body weight 94.35 kg Jean Saeed Naderer Work Phone: [facility] 250 DO Work Phone: 12-11-2021 11:39-0400 Diastolic blood pressure 72 mm[Hg] Jean Saeed Naderer Work Phone: [facility] [employer] 250 DO Work Phone: 12-11-2021 11:39-0400 Heart rate 72 /min Jean Christophe Naderer Work Phone: [facility] 250 DO Work Phone: 12-11-2021 11:39-0400 Systolic blood pressure 124 mm[Hg] Jean Saeed Naderer Work Phone: [facility] 250 DO Work Phone: 08-21-2021 15:00-0400 Body height 175.26 cm Danna Mcdaniel Other [employer] Other 08-21-2021 15:00-0400 Body mass index (BMI) [Ratio] 28.35 kg/m2 Danna Violeta Other [employer] Other 08-21-2021 15:00-0400 Body temperature 97.5 [degF] Danna Violeta Other [employer] Other 08-21-2021 15:00-0400 Body weight 87.09 kg Danna Violeta Other [employer] Other 08-21-2021 15:00-0400 Diastolic blood pressure 70 mm[Hg] Danna Violeta Other [employer] Other 08-21-2021 15:00-0400 Respiratory rate 20 /min Danna Violeta Other [employer] Other 08-21-2021 15:00-0400 SaO2% (BldA) [Mass fraction] 94 % Danna Violeta Other [employer] Other 08-21-2021 15:00-0400 Systolic blood pressure 110 mm[Hg] Danna Violeta Other [employer] Other 08-15-2021 11:30-0400 Body height 175.26 cm Julian Matthews Other [employer] Other 08-15-2021 11:30-0400 Body mass index (BMI) [Ratio] 28.06 kg/m2 Julian Matthews Other [employer] Other 08-15-2021 11:30-0400 Body temperature 97.5 [degF] Julian Matthews Other [employer] Other 08-15-2021 11:30-0400 Body weight 86.18 kg Julian Matthews Other [employer] Other 08-15-2021 11:30-0400 Diastolic blood pressure 68 mm[Hg] Julian Matthews Other [employer] Other 08-15-2021 11:30-0400 SaO2% (BldA) [Mass fraction] 98 % Julian Byron Other [employer] Other 08-15-2021 11:30-0400 Systolic blood pressure 102 mm[Hg] Julian Byron Other [employer] Other 08-02-2021 08:32-0400 Body height 175.26 cm Jean Saeed Naderer Work Phone: [employer] [address] DO Work Phone: 08-02-2021 08:32-0400 Body mass index (BMI) [Ratio] 28.8 kg/m2 Jean Saeed Naderer Work Phone: [employer] [employer] 250 DO Work Phone: 08-02-2021 08:32-0400 Body surface area Derived from formula 2.04 m2 Jean Saeed Naderer Work Phone: [facility] [employer] [address] DO Work Phone: 08-02-2021 08:32-0400 Body weight 88.45 kg Jean A Naderer Work Phone: [employer] [employer] [address] DO Work Phone: 08-02-2021 08:32-0400 Diastolic blood pressure 62 mm[Hg] Jean Saeed Naderer Work Phone: [facility] [employer] [address] DO Work Phone: 08-02-2021 08:32-0400 Heart rate 68 /min Jean Saeed Naderer Work Phone: [facility] 250 DO Work Phone: 08-02-2021 08:32-0400 Systolic blood pressure 108 mm[Hg] Jean Saeed Naderer Work Phone: [facility] 250 DO Work Phone: 07-14-2021 00:00-0400 60 1 Jean Saeed Naderer Work Phone: [facility] 250 DO Work Phone: Comment on above: [id number] 04-30-2021 13:22-0500 Body height 175.26 cm Jean Saeed Naderer Work Phone: [facility] 250 DO Work Phone: 04-30-2021 13:22-0500 Body mass index (BMI) [Ratio] 29.45 kg/m2 Jean Saeed Naderer Work Phone: [facility] 250 DO Work Phone: 04-30-2021 13:22-0500 Body surface area Derived from formula 2.06 m2 Jean Saeed Naderer Work Phone: [facility] 250 DO Work Phone: 04-30-2021 13:22-0500 Body weight 90.45 kg Jean Saeed Naderer Work Phone: [facility] 250 DO Work Phone: 04-30-2021 13:22-0500 Diastolic blood pressure 90 mm[Hg] Jean Saeed Naderer Work Phone: [facility] 250 DO Work Phone: 04-30-2021 13:22-0500 Heart rate 69 /min Jean Saeed Naderer Work Phone: [facility] 250 DO Work Phone: 04-30-2021 13:22-0500 Systolic blood pressure 134 mm[Hg] Jean Saeed Naderer Work Phone: [facility] 250 DO Work Phone: 02-20-2021 14:06-0500 Body height 175.26 cm Jean Saeed Naderer Work Phone: [facility] 250 DO Work Phone: 02-20-2021 14:06-0500 Body mass index (BMI) [Ratio] 29.98 kg/m2 Jean Saeed Naderer Work Phone: [facility] 250 DO Work Phone: 02-20-2021 14:06-0500 Body surface area Derived from formula 2.08 m2 Jean Saeed Naderer Work Phone: [facility] 250 DO Work Phone: 02-20-2021 14:06-0500 Body weight 92.08 kg Jean Saeed Naderer Work Phone: [facility] 250 DO Work Phone: 02-20-2021 14:06-0500 Diastolic blood pressure 76 mm[Hg] Jean Saeed Naderer Work Phone: [facility] 250 DO Work Phone: 02-20-2021 14:06-0500 Heart rate 80 /min Jean Saeed Naderer Work Phone: [facility] 250 DO Work Phone: 02-20-2021 14:06-0500 Systolic blood pressure 110 mm[Hg] Jean Saeed Naderer Work Phone: [facility] 250 DO Work Phone: 02-06-2021 16:10-0500 Diastolic blood pressure 84 mm[Hg] Jean Saeed Naderer Work Phone: [facility] 250 DO Work Phone: 02-06-2021 16:10-0500 Systolic blood pressure 130 mm[Hg] Jean A Naderer Work Phone: [facility] 250 DO Work Phone: 02-06-2021 15:37-0500 Body height 175.26 cm Jean A Naderer Work Phone: [facility] 250 DO Work Phone: 02-06-2021 15:37-0500 Body mass index (BMI) [Ratio] 30.13 kg/m2 Jean A Naderer Work Phone: [facility] [employer] 250 DO Work Phone: 02-06-2021 15:37-0500 Body surface area Derived from formula 2.08 m2 Jean Saeed Naderer Work Phone: [facility] 250 DO Work Phone: 02-06-2021 15:37-0500 Body weight 92.53 kg Jean Saeed Naderer Work Phone: [facility] 250 DO Work Phone: 02-06-2021 15:37-0500 Diastolic blood pressure 90 mm[Hg] Jean A Naderer Work Phone: [facility] 250 DO Work Phone: 02-06-2021 15:37-0500 Heart rate 125 /min Jean A Naderer Work Phone: [facility] 250 DO Work Phone: 02-06-2021 15:37-0500 Systolic blood pressure 128 mm[Hg] Jean A Naderer Work Phone: [facility] 250 DO Work Phone: 11-30-2020 11:30-0400 Body height 175.26 cm Danna Violeta Other [employer] Other 11-30-2020 11:30-0400 Body mass index (BMI) [Ratio] 29.68 kg/m2 Danna Violeta Other [employer] Other 11-30-2020 11:30-0400 Body weight 91.17 kg Danna Violeta Other [employer] Other 11-30-2020 11:30-0400 Diastolic blood pressure 83 mm[Hg] Danna Violeta Other [employer] Other 11-30-2020 11:30-0400 Respiratory rate 20 /min Danna Violeta Other [employer] Other 11-30-2020 11:30-0400 SaO2% (BldA) [Mass fraction] 98 % Danna Violeta Other [employer] Other 11-30-2020 11:30-0400 Systolic blood pressure 126 mm[Hg] Danna Violeta Other [employer] Other Encounters Encounter Date Encounter Type Care Provider Facility Start: 12-26-2023 ambulatory Marino Colmenares ty:[facility] Start: 11-17-2023 End: 11-17-2023 ambulatory MD Carmen Witt Work Phone: [facility] Work Phone: Start: 11-17-2023 End: 11-17-2023 Patient encounter procedure MD Carmen Witt Work Phone: [facility] Work Phone: Start: 11-11-2023 End: 11-11-2023 ambulatory [facility] Start: 09-22-2023 End: 09-22-2023 ambulatory Maribell Leigh MD Facility:[facility] [place] Start: 08-21-2023 End: 08-21-2023 ambulatory MD Carmen Witt Work Phone: [facility] Work Phone: Start: 08-21-2023 End: 08-21-2023 Patient encounter procedure MD Carmen Witt Work Phone: [facility] Vascular Surgery Work Phone: Start: 06-03-2023 End: 06-03-2023 Office outpatient visit 15 minutes Curtis Meléndez MD Work Phone: [facility] Comment on above: Low back pain, unspe cified back pain laterality, unspecified chronicity, unspecified whether sciatica present (Primary Dx); Lumbar pain Start: 06-03-2023 End: 06-03-2023 Subsequent hospital visit by physician Serene Ayers101 X-Ray 2 [facility] Comment on above: Lumbar pain Start: 06-03-2023 End: 06-03-2023 ambulatory [facility] Start: 05-19-2023 End: 05-19-2023 ambulatory Maribell Leigh MD Facility:[facility] Start: 04-14-2023 End: 04-14-2023 Patient encounter procedure MD Jean Nicholson Work Phone: [facility] [place] Work Phone: Start: 04-14-2023 End: 04-14-2023 ambulatory MD Jean Nicholson Work Phone: [facility] Work Phone: Start: 04-09-2023 End: 04-09-2023 ambulatory MD Jean Nicholson Work Phone: [facility] Work Phone: Start: 04-09-2023 End: 04-09-2023 Patient encounter procedure MD Jean Nicholson Work Phone: [facility] Work Phone: Start: 04-07-2023 End: 04-07-2023 ambulatory Joseus Kya Goodmanitis Facility:[facility] [place] Start: 03-24-2023 End: 03-24-2023 ambulatory Maribell Leigh MD Facility:[facility] [place] Start: 03-04-2023 End: 03-04-2023 Patient encounter procedure MD Jean Nicholson Work Phone: [facility]Respiratory Therapy Work Phone: Start: 03-04-2023 End: 03-04-2023 ambulatory MD Jean Nicholson Work Phone: [facility] Work Phone: Start: 02-28-2023 End: 02-28-2023 Office outpatient visit 15 minutes Curtis Meléndez MD Work Phone: [facility] Comment on above: Low back pain, unspe cified back pain laterality, unspecified chronicity, unspecified whether sciatica present (Primary Dx) Start: 02-28-2023 End: 02-28-2023 ambulatory [facility] Start: 12-23-2022 End: 12-24-2022 ambulatory Marino SPEAR Facility: [place] Start: 12-23-2022 End: 12-23-2022 Patient encounter procedure Marino SPEAR [facility] Start: 12-09-2022 End: 12-09-2022 ambulatory [facility] Ambulatory Start: 11-19-2022 Patient encounter procedure Carmen Witt [facility] [place] Work Phone: Start: 11-19-[address] Curtis Meléndez Facility:[id number] Start: 11-04-2022 End: 11-07-2022 Evaluation and management of inpatient Curtis Hernandezwimalina Miller [facility] 610 01 Start: 10-30-2022 End: 10-30-2022 ambulatory Danna Violeta Other [facility] [employer] Other Start: 10-30-2022 Office outpatient vi sit 25 minutes Danna Violeta [facility] Start: 10-22-2022 Patient encounter procedure Carmen Witt Work Phone: [facility] [place] Work Phone: Start: 10-22-[address] Curtis Meléndez Facility:[id number] Start: 10-22-2022 Encounter for other preprocedural examination Dr. uCrtis Meléndez [facility] Start: 10-21-[address] Carmen Witt Facility:[id number] Start: 10-21-2022 Encounter for preprocedural cardiovascular examination Dr. Curtis Meléndez [facility] Start: 10-21-2022 Encounter for preprocedural laboratory examination Dr. Curtis Meléndez [facility] Start: 09-19-2022 Patient encounter procedure Carmen Witt Work Phone: [facility] [place] Work Phone: Start: 09-19-[address] Carmen Witt Facility:[id number] Start: 08-23-2022 Chart Update Carmen Witt Work Phone: [facility] [place] Work Phone: Start: 08-23-2022 Patient encounter procedure Carmen Witt Work Phone: [facility] [place] Work Phone: Start: 08-23-[address] Carmen Witt Facility:[id number] Start: 08-20-2022 End: 08-20-2022 ambulatory Danna Violeta Other [facility] [employer] Other Start: 08-20-2022 Office outpatient vi sit 25 minutes Danna Violeta [facility] Start: 08-15-2022 End: 08-15-2022 Patient encounter procedure Bianka Garcia [facility] Start: 08-15-2022 End: 08-15-2022 ambulatory MD Jean Nicholson Work Phone: [facility] [employer] Other Start: 07-31-2022 Chart Update [facility] Witt [facility] Work Phone: Start: 07-31-[address] Cecilio Go Facility:[id number] Start: 07-02-2022 End: 07-03-[address] IRAIS LORENZANA Facility:H1 Start: 06-05-2022 AUDIT Carmen Witt Work Phone: [facility] Work Phone: Start: 06-04-2022 Patient encounter procedure Carmen Witt Work Phone: [facility] Work Phone: Start: 06-04-[address] Carmen Witt Facility: Start: 05-09-2022 End: 05-10-2022 ambulatory LAUREN BAUMANN . Facility:H1 Start: 04-19-2022 Rx Renewal [facility] Work Phone: Start: 02-18-2022 End: 02-19-[address] BRITANY TSANG Facility:H1 Start: 02-07-2022 End: 02-08-2022 ambulatory LAUREN BAUMANN . Facility:H1 Start: 02-05-2022 End: 02-05-2022 ambulatory Danna Violeta Other [facility] [employer] Other Start: 02-05-2022 Office outpatient vi sit 25 minutes Danna Violeta [facility] Start: 12-20-2021 End: 12-21-[address] MARINO SPEAR . Facility:H1 Start: 12-11-2021 Office outpatient vi sit 25 minutes Jean Nicholson [facility] Work Phone: Start: 12-11-[address] Jean Nicholson Facility: Start: 11-27-2021 End: 11-28-[address] LORENA ANDERSON . Facility:H1 Start: 11-27-2021 Rx Renewal Jean Nicholson Work Phone: [facility] 250 DO Work Phone: Start: 11-05-2021 End: 11-06-[address] BRITANY TSANG Facility:H1 Start: 10-17-2021 End: 10-18-[address] CARMEN WITT . Facility:H1 Start: 10-12-2021 Rx Renewal [facility]: [facility] Work Phone: Start: 10-09-2021 End: 10-10-2021 ambulatory KATHERINE MARTINEZ Facility:H1 Start: 08-30-2021 End: 08-31-2021 ambulatory LAUREN BAUMANN . Facility:H1 Start: 08-21-2021 End: 08-21-2021 ambulatory Danna Violeta Other [employer] Other Start: 08-21-2021 Office outpatient vi sit 25 minutes Danna Violeta [facility] Start: 08-16-2021 End: 08-16-2021 ambulatory Bianka Garcia Other [employer] Other Start: 08-16-2021 Telephone encounter Bianka Lira [facility] Start: 08-15-2021 End: 08-15-2021 ambulatory Julian Matthews Other [facility] [employer] Other Start: 08-15-2021 Office outpatient vi sit 25 minutes Julian Matthews [facility] Vascular Surgery Start: 08-02-2021 Office outpatient vi sit 25 minutes Jean A Naderer Work Phone: [facility] Work Phone: Start: 07-20-2021 End: 07-20-2021 ambulatory Bianka Garcia Other [facility] [employer] Other Start: 07-20-2021 Telephone encounter Bianka Lira [facility] Start: 07-14-2021 End: 07-14-2021 ambulatory CYNDI WASHINGTON Facility: Start: 04-30-2021 Office outpatient vi sit 25 minutes Jean A Naderer Work Phone: [facility] 250 DO Work Phone: Start: 03-26-2021 Rx Renewal Jean A Naderer Work Phone: [facility] 250 DO Work Phone: Start: 02-20-2021 Patient encounter procedure Jean A [facility]aderer [facility] Work Phone: Start: 11-30-2020 Office outpatient vi sit 25 minutes Danna Mcdaniel [facility] Procedures Date Procedure Procedure [...] above: Performed By: #### P SAD #### [facility] [address] [address] [address] Arielle Biswas Start: 07-14-2021 Operation for pulmon brian embolism Marino SPEAR Start: 03-21-2016 Radical prostatectomy Cesario SPEAR Start: 01-15-2016 Cystoscopy Marino BATISTA Start: 01-15-2016 Transrectal biopsy o f prostate using ultrasound guidance Marino SPEAR Colonoscopy Jean Saeed Naderer Work Phone: Comment on above: Feb [...] 65+ Years (3 - PPSV23 or PCV20) [facility] Start: 01-03-2025 Pneumococcal Vaccine : 65+ Years (3 of 3 - PPSV23 or PCV20) Pneumococcal Vaccine: 65+ Years (3 of 3 - PPSV23 or PCV20) [facility] Start: 12-05-2023 End: 12-05-2023 Patient encounter procedure 12/05/2023 1:30 PM EDT Office Visit [facility] [address] [place] [id number] Curtis Meléndez MD [address] [facility], [address] [place] [address], [place] [address] [facility] Start: 06-17-2023 End: 06-17-2023 Patient encounter procedure 06/17/2023 10:20 AM EDT Office Visit [facility] [address] [facility] [address] [place] [address] Cecilio Go MD [address] [facility] [address], [facility] [address] [place] [address] [facility] Start: 04-14-2023 CT Chest WO contrast [facility] Start: 04-14-2023 CT of chest without contrast CT chest wo con high res [facility] Start: 02-28-2023 End: 02-29-2024 XR Lumbar spine 2 or 3 Views [facility] Service Area Work Phone: Comment on above: Expected: 02/28/2023 , Expires: 02/29/2024 Start: 12-10-2022 FUV, Provider: Cecilio Go, Status: Pen, Time: 11:10 AM FUV, Provider: Cecilio Go, Status: Pen, Time: 11:10 AM [place] [address] DO Work Phone: Start: 12-09-2022 FUV, Provider: Cecilio Go, Status: Pen, Time: 3:00 PM FUV, Provider: Cecilio Go, Status: Pen, Time: 3:00 PM [facility] Work Phone: Start: 12-09-2022 Patient encounter procedure [facility] [place] Start: 11-19-2022 Patient encounter procedure [facility] Start: 11-19-2022 POV, Provider: Curtis Meléndez, Status: Pen, Time: 1:30 PM POV, Provider: Curtis Meléndez, Status: Pen, Time: 1:30 PM -[facility] Work Phone: Start: 11-05-2022 End: 11-05-2023 [place] [...] Curtis Meléndez, Status: Pen, Time: 7:30 AM [facility] Work Phone: Start: 10-25-2022 COVID-19 Vaccine ( season) COVID-19 Vaccine ( season) [facility] Start: 10-22-2022 PREADMIT, Provider: Curtis Meléndez, Status: Deven, Time: 1:30 PM PREADMIT, Provider: Curtis Meléndez, Status: Pen, Time: 1:30 PM -[facility] [place] Work Phone: Start: 09-24-2022 FUV, Provider: Curtis Meléndez, Status: Deven, Time: 1:30 PM FUV, Provider: Curtis Meléndez, Status: Pen, Time: 1:30 PM -[facility] Work Phone: Start: 08-23-2022 NPV, Provider: Curtis Meléndez, Status: Pen, Time: 1:15 PM NPV, Provider: Curtis Meléndez, Status: Pen, Time: 1:15 PM -[facility] 250 DO Work Phone: Start: 08-15-2022 US scan of aorta US aorta [facility] Start: 08-15-2022 US Thoracic and abdominal aorta [facility] Start: 08-08-2022 ambulatory Ambulatory Facility:H 1 Start: 07-31-2022 AOILIVC, Provider: [facility] ULTRASOUND 01,[id number], Status: Pen, Time: 1:30 PM AOILIVC, Provider: [facility]TR[facility] 01,[id number], Status: Pen, Time: 1:30 PM [facility] Work Phone: Start: 06-04-2022 FUV, Provider: Cecilio Go, Status: Pen, Time: 11:30 AM FUV, Provider: Cecilio Go, Status: Pen, Time: 11:[address] [facility] 250 DO Work Phone: Start: 02-06-2022 FUV, Provider: Cecilio Go, Status: Pen, Time: 8:50 AM FUV, Provider: Cecilio Go, Status: Pen, Time: 8:50 AM [facility] 250 DO Work Phone: Start: 12-11-2021 FUV, Provider: Cecilio Go, Status: Pen, Time: 11:20 AM FUV, Provider: Cecilio Go, Status: Pen, Time: 11:[address] [facility] 250 DO Work Phone: Start: 04-30-2021 FUV, Provider: Cecilio Go, Status: Pen, Time: 1:20 PM FUV, Provider: Cecilio Go, Status: Pen, Time: 1:[address] [facility] 250 DO Work Phone: Start: 02-15-2021 COVID-19 Vaccine (4 - Moderna series) COVID-19 Vaccine (4 - Moderna series) [facility] Start: 10-18-2005 Zoster Vaccines (1 o f 2) Zoster Vaccines (1 of 2) [facility] Start: 10-18-1977 DTaP/Tdap/Td Vaccine s (1 - Tdap) DTaP/Tdap/Td Vaccines (1 - Tdap) [facility] Start: 10-18-1973 Diabetes mellitus screening Diabetes Screening [facility] Start: 10-18-1973 Hepatitis C screening Hepatitis C Sc reening [facility] Start: 1955 Lipid panel Lipid Panel [facility] Start: 1955 Medicare Annual Wellness Visit Medicare Annual Wellness Visit (AWV) [facility] Start: 1955 Screening for malignant neoplasm of colon [facility] CT Chest WO contrast [facility] Immunizations Immunization Date Immunization Notes Care Provider Fa zenaida 11-06-2022 influenza, high dose seasonal, preservative-free Carmen Witt Other Phone: [facility] 12-26-2021 Fluad Quadrivalent 0 .5 ML Intramuscular Prefilled Syringe Jean Nicholson Work Phone: [facility] 563 DO Work Phone: 12-26-2021 influenza, seasonal, injectable Curtis Meléndez MD Work Phone: [facility] Work Phone: 12-21-2020 [email or web address] COVID-19 Vacc 30 MCG/0.3ML Intramuscular Suspension Jean Nicholson Work Phone: [facility] 12-21-2020 pneumococcal conjuga te vaccine, 13 valent Jean Nicholson Work Phone: [facility] 12-21-2020 zoster vaccine recombinant Jean Nicholson Work Phone: [facility] 250 DO Work Phone: 12-21-2020 zoster vaccine, unspecified formulation Curtis Meléndez MD Work Phone: [facility] Work Phone: 12-10-2020 Fluad Quadrivalent 0 .5 ML Intramuscular Prefilled Syringe Jean Harrisr Work Phone: [place] [address] DO Work Phone: 12-10-2020 influenza, seasonal, injectable Curtis Meléndez MD Work Phone: [facility] Work Phone: 06-21-2020 COVID-19 Vaccine Moderna - Documentation Purposes Only Danna Violeta Other [facility] [employer] Other 05-09-2020 COVID-19 Vaccine Moderna - Documentation Purposes Only Danna Violeta Other [facility] [employer] Other 01-04-2020 influenza, injectabl e, quadrivalent, preservative free Jean Harrisr Work Phone: [place] [address] DO Work Phone: 01-04-2020 influenza, seasonal, injectable Curtis Meléndez MD Work Phone: [facility] Work Phone: 01-04-2020 pneumococcal polysaccharide vaccine, 23 valent Jean Nicholson Work Phone: [facility] 12-20-2019 influenza, seasonal, injectable Jean Harrisr Work Phone: [facility] 10-25-2018 influenza, injectabl e, quadrivalent, preservative free Curtis Meléndez MD Work Phone: [facility] Work Phone: 10-25-2018 influenza, seasonal, injectable Jean A Jackieerer Work Phone: [place] [address] DO Work Phone: 11-24-2017 influenza virus vaccine, unspecified formulation Jean Nicholson Work Phone: -[facility] 250 DO Work Phone: 02-25-2016 pneumococcal polysaccharide vaccine, 23 valent Jean Nicholson Work Phone: [facility] Payers Date Payer Category Payer Private Health Insurance [id number] 2023 Medicare 2022 Self-pay [id number] 2022 Unknown 2020 Unknown [id number] 2.16 .840.1.170529.19 2020 Medicaid [id number] 2020 Unknown [id number] 2.16.840 .1.999440.19 1959 Unknown [id number] 1955 Unknown [id number] 2.16.840.1.414222.3.579.2.593 1955 Unknown [id number] 2.16.840.1.903770.3.579.2.593 1955 Unknown [id number] 2.16.840.1.900197.3.579.2.593 1955 Unknown [id number] 2.16.840.1.746318.3.579.2.593 1955 Unknown [id number] 2.16.840.1.927505.3.579.2.593 1955 Unknown [id number] 2.16.840.1.330704.3.579.2.593 1955 Unknown [id number] 2.16.840.1.000228.3.579.2.593 1955 Unknown [id number] 2.16.840.1.199816.3.579.2.593 1955 Unknown [id number] 2.16.840.1.699700.3.579.2.593 1955 Unknown [id number] 2.16.840.1.220179.3.579.2.593 1955 Unknown [id number] 2.16.840.1.459112.3.579.2.593 1955 Unknown [id number] 2.16840.1.652017.3.579.2.593 1955 Unknown [id number] 2.16840.1.754121.3.579.2.356 1955 Unknown [id number] 2.16840.1.982648.3.579.2.356 1955 Unknown [id number] 2.840.1.148664.3.579.2.1244 1955 Unknown [id number] 2.840.1.942699.3.579.2.1068 1955 Unknown [id number] 2.840.1.952434.3.579.2.8 1955 Unknown [id number] 2.840.1.659678.3.579.2.1068 1955 Unknown [id number] 2.840.1.562785.3.579.2.106 1955 Unknown [id number] 2.16840.1.501865.3.579.2.1068 1955 Unknown [id number] 2.16840.1.518517.3.579.2.1067 1955 Unknown [id number] 2.16.840.1.221100.3.579.2.1068 1955 Unknown [id number] 2.16840.1.880086.3.579.2.727 1955 Unknown [id number] 2.16.840.1.795736.3.579.2.727 1955 Unknown [id number] 2.16.840.1.162696.3.579.2.196 1955 Unknown [id number] 2.16.840.1.857019.3.579.2.196 1955 Unknown [id number] 2.16.840.1.325134.3.579.2.196 1955 Unknown [id number] 2.16.840.1.983351.3.579.2.196 1955 Unknown [id number] 2.16.840.1.418909.3.579.2.1246 1955 Unknown [id number] 2.16.840.1.225245.3.579.2.1246 1955 Unknown [id number] 2.16.840.1.073524.3.579.2.124 1955 Unknown [id number] 2.16.840.1.600062.3.579.2.124 1955 Unknown [id number] 2.16.840.1.834537.3.579.2.124 1955 Unknown [id number] 2.16.840.1.700147.3.579.2.1246 Medicare [id number] 2.1 6.840.1.255753.19 Medicare Anthem MCR PFFS [id number] Medicare [id number] Unknown [id number] 2.16.840.1.538418.3.579.2.531 Unknown [id number] 2.16.840.1.134051.3.579.2.531 Unknown [id number] 2.16.840.1.370491.3.579.2.531 Social History Date Type Detail Facility Start: 12-09-2022 Former smoker Former smoker [facility] 250 DO Work Phone: Start: 12-09-2022 Sex Assigned At F [facility] Start: 07-14-2021 End: 12-09-2022 Tobacco smoking status NHIS Never smoked tobacco (finding) [facility] Start: 1955 Sex Assigned At Male F [facility] Tobacco smoking consumption unknown [facility] Start: 12-18-2020 End: 11-17-2023 Tobacco smoking status Ex-smoker (finding) [facility] Start: 12-09-2022 Tobacco use and exposure Smokeless tobacco non-user [facility] Work Phone: Start: 12-09-2022 Alcohol intake Lifetime non-d lalo (finding) [facility] Work Phone: Start: 1955 Sex Assigned At Not on file [facility] Work Phone: Start: 02-18-2023 End: 06-03-2023 Exposure to SARS-CoV-2 (event) Not sure [facility] Functional Status Date Assessment Result Facility 12-23-2022 Functional Status N/A [facility] [place] Functional observable [facility] Mental Status Date Assessment Result Facility 11-06-2022 Cognitive functions 18607:[id number] [facility] Clinical Notes 11-30-2020 to [...] split dictation. -Nicolas Kohli PA-C In a [id number] encounter, I performed a history and physical [...] MD Orthopedic surgery documented in this encounter [facility] Work Phone: 02-28-2023 History of Present illness [...] portion of this split dictation. In a [id number] encounter, I performed a history and physical [...] the lumbar spine. documented in this encounter [facility] Work Phone: 12-23-2022 Hospital Discharge instructions Patient [...] treatment? Where to find more information [employer]: www.cancer.org [employer]: www.auanet.org Contact a health care [...] provider. Document Revised: 08/06/2021 Document Reviewed: 08/06/2021 [employer] Patient Education 2022 [employer]. Follow Up Care 12/21/2021 12:26:12 With:RAINER JIMENEZ, Marino Calabrese, URL Address: [facility] [address] [place] [phone] When: Unknown Comments:1 yr w/ PSA [facility] 11-07-2022 Note Send Summary: Discharge Summary Providers: Provider RoleProvider Name Carmen Conner Robert ConsultingKher, Chirag PrimaryHoy, Douglas M Note Recipients: Curtis Meléndez MD - [id number] [Preferred] Carmen Witt MD - [id number] [] Cayden Flores MD Discharge: Summary: Admission Date: .04-Nov-2022 05:14:00 Discharge Date: 07-Nov-2022 Attending Physician at Discharge: Curtis Meléndez Admission Reason: Lumbar stenosis and spondylolisthesis(1) Final Discharge Diagnoses: Back pain Procedures: Date: 04-Nov-2022 13:07:00 Procedure Name: 1. 2. 3. 4. 5. Condition at Discharge: Satisfactory Disposition at Discharge: .Home Vital Signs: T PRBPMAPSpO2 [id number]% Date/Time11/07 8: 8:5611/07 8:5611/07 8:5611/06 21:0811/07 8:56 Range(36.7C - [...] please call ahead and schedule appointment Location: [facility] [address] [facility] Phone Number: [phone] Discharge Medications: Home Medication furosemide 20 mg [...] tab(s) orally once a day Potassium Chloride (Xvi-Ikhu-Ysz 10) 10 mEq oral tablet, extended release [...] discharge: Full Code Electronic Signatures: Gilda Mcmahon (MARINE FUEL DOCK ATTENDANT-ORACLE HRMS DEVELOPER) (Signed 07-Nov-2022 09:26) Authored: Send Summary, Summary Content, Immunizations, Ongoing Care, DNR Status, Note Completion Last Updated: 07-Nov-2022 09:26 by Gilda Mcmahon (MARINE FUEL DOCK ATTENDANT-ORACLE HRMS DEVELOPER) References: 1. Data Referenced From Consult-General Internal Medicine 04-Nov-2022 16:29 [facility] 11-04-2022 Note Post Operative Note: Post-Procedure Diagnosis: Lumbar stenosis and spondylolisthesis Procedure: 1. 2. 3. 4. 5. Surgeon: Ángela Resident/Fellow/Other Control Specialist: Alice Estimated Blood Loss (mL): 100 cc Specimen: no Findings: Lumbar stenosis and spondylolisthesis Operative Report Dictated: Dictation: not applicable - note contains Operative Report Note Recipients: Curtis Meléndez MD - [id number] [Preferred] Carmen Witt MD - [id number] [] Operative Report: Preoperative diagnosis: L2-3 and [...] Curtis Meléndez M.D. Asst.: Sonu HillThe physician respiratory therapy assistant was present through the entire case. Given the nature of the disease process and the procedure to be performed a skilled certified surgical tech/first assistant was necessary during the case. The respiratory therapy assistant was necessary in order to hold [...] Continue all recommendati on/medicatio ns per your Dynamometer Tuner . Oct, ILD (interstitial lung disease) (ICD-10 - J84.9) Pulmonary Function Test as scheudled prior to next office appointment. [employer] Other 07-27-2023 History of Present illness NarrativeGarry [...] the surgery and for four days after. [place] any fever, chills, nausea, vomiting, or night sweats. He has no bowel or bladder complaints.-[facility] Work Phone: [phone] 604-897406-27-2023 Evaluation note* Encounter Date Diagnosis Assessment Notes Treatment Notes Treatment Clinical Notes Jul, Diastolic dysfunction (ICD-10 - I51.89) Jul, ILD (interstitial lung disease) (ICD-10 - J84.9) I reviewed results and images of your Chest CT completed at [facility] 10/2021 and 01/2022. There is evidence of very mild fibrosis (scarring). Continue with physcial activity as you are. [employer] Other 06-22-2023 Evaluation note* Encounter Date Diagnosis [...] agrees with plan, and denies any questions. [employer] Other 03-16-2023 NoteCONSULTATION CONSULTATION DATE: 05/09/2022 HISTORY: [...] is currently under the care of a hand tennis ball coverer. Most recent physician appointment does show that his lungs are slowly improving. He does have a Cardiology appointment on 06/13/2022, and at that time, he will discuss with the elastic assembler regarding possible use of sedation and holding [...] otherwise indicated. Patient agrees with this care.[facility] [id number] NoteCONSULTATION CONSULTATION DATE: 02/07/2022 HISTORY OF PRESENT [...] still being followed up with Pulmonology in [facility] and, most recently, they feel [...] up in three months, unless otherwise indicated.[facility] [id number] Evaluation note* Encounter Date Diagnosis Assessment Notes Treatment Notes Treatment Clinical Notes Jan, Diastolic dysfunction (ICD-10 - I51.89) Jan, ILD (interstitial lung disease) (ICD-10 - J84.9) I will look at Chest CT from [place] and let you know if any further testing is needed. Jan, Dyspnea (ICD-10 - R06.00) [employer] Other 10-04-2022 NoteCONSULTATION CONSULTATION DATE: 11/27/2021 CHIEF [...] is under the care of Dr. Go, elastic assembler, who has suggested that the patient not hold the Eliquis for any treatment right now and, as such, we will maintain a conservative approach. IMPRESSION: As such, the patient's current working diagnosis is chronic low back pain, new diagnosis of cystic fibrosis. A recent CT of the lung was performed and the patient is under the care of [facility]. The patient is also under anticoagulation therapy. PLAN: We will refill the patient's Percocet 5/325 b.i.d. The patient will be returning in clinic as needed. The patient has had a rhizotomy, radiofrequency along the low back and, as such, is stable with regards to his low back.[facility] [id number] NoteCONSULTATION CONSULTATION DATE: 08/30/2021 This is a [...] The patient was transferred to [facility] where the large PE was [...] be followed up in three months' time. [facility] Signed and Approved by: LAUREN BAUMANN . 09/06/2021 09:46:00[facility]06-28-20[facility] Evaluation note* Encounter Date Diagnosis [...] physcial activity....walk 3-4x a day to start. [employer] Other 06-22-2022 Evaluation note* Encounter Date Diagnosis [...] the plan all his questions were addressed. [employer] Other 10-07-2021 Evaluation note* Encounter Date Diagnosis [...] Nov, Other Try Mylanta for acid reflux. [employer] Other Evaluation + Plan note Future Appointments Appointment Date:12/26/2023 11:00:00 AM Scheduled Provider:Marino SPEAR MD Location:[facility] Appointment Type:URO Office Visit Diagnostic Tests Pending * PSA Total 12/23/22 [facility] evaluation noteNo InformationNort Fitfu Other Evaluation noteNo assessment information available [facility] Work Phone: Evaluation note* Constitutional: Well developed, [...] sciatica present- Primary documented in this encounter [facility] Work Phone: Evaluation note* Diagnosis Onset Date Resolution Status Grade I diastolic dysfunction acute Pulmonary fibrosis acute [facility] Work Phone: Evaluation note* Diagnosis Low back pain, unspecified back pain laterality, unspecified chronicity, unspecified whether sciatica present- Primary Lumbar pain Lumbago documented in this encounter [facility] Work Phone: Evaluation note* Diagnosis Lumbar pain Lumbago documented in this encounter [facility] Work Phone: Evaluation note* Diagnosis Onset Date Resolution Status AAA (abdominal aortic aneurysm) acute [facility] Work Phone: Evaluation note* Diagnosis Onset Date Resolution Status AAA (abdominal aortic aneurysm) acute Bronchiectasis acute Grade I diastolic dysfunction acute Pulmonary fibrosis acute [facility] Work Phone: Hishozz general Narrative - Reported* Type Description Date Medical History COPD Medical History asthma Medical History sleep apnea (negative PSG) Medical History aaa Medical History pe Surgical History spine 2001 Surgical History neck 2004 Surgical History prostate biopsy 2017 Surgical History dental extraction Hospitalization History as above Hospitalization History pe 2021 [employer] Other Hiswqeb general Narrative - Reported* Type Description Date Medical History NOEL Medical History COPD Medical History asthma Medical History sleep apnea Surgical History spine 2001 Surgical History neck 2004 Surgical History prostate biopsy 2017 Hospitalization History as above [employer] Other Hisztrv general Narrative - Reported* Type Description Date Medical History COPD Medical History asthma Medical History sleep apnea (negative PSG) Surgical History spine 2001 Surgical History neck 2004 Surgical History prostate biopsy 2017 Hospitalization History as above [employer] Other history general Narrative - Reported* Type Description Date Medical History COPD Medical History asthma Medical History sleep apnea (negative PSG) Medical History aaa Medical History pulmonary embolism Surgical History spine 2001 Surgical History neck 2004 Surgical History prostate biopsy 2017 Surgical History dental extraction Hospitalization History as above Hospitalization History pulmonary embolism [facility] 06/2021 [employer] Other Hisqyjc general Narrative - Reported* Type Description Date Medical History COPD Medical History asthma Medical History sleep apnea (negative PSG) Medical History aaa Medical History pulmonary embolism Medical History interstitial lung disease Medical History diastolic dysfunction Surgical History spine 2001 Surgical History neck 2004 Surgical History prostate biopsy 2017 Surgical History dental extraction Hospitalization History as above Hospitalization History pulmonary embolism [facility] 06/2021 [employer] Other History of Present illness Xi is a new patient to us, new [...] to the pain management center down in [place].[facility] Work Phone: Hospital course Narrative No data available for this section [facility] Hospital Discharge instructions* Activity:activity as [...] ahead and schedule appointmentLocation: [address] [place]Phone Number: [phone] [facility] No data available for this section [facility] Chief Complaint Pt came in [...] follow-up for recent admission to [facility] with bilateral pulmonary embolism leading [...] pulmonary embolism. Recently follow-up CT scan at [facility] revealed resolution of the pulmonary emboli. Some other pathology was noted with densities requiring follow-up imaging in 3 to 6 months which has been arranged through his PCP. He is cu rrently anticoagulated with Eliquis. The patient is contemplating further dental work in December which he should be able to hold anticoagulation prior to. Recent nuclear stress test at [facility] was reviewed and shared with the patient and was normal. He is also known to have normal ejection fraction. He currently has no complaint to report physical examination was only remarkable for 8 pounds weight gain from last visit. He is now in the obesity range recent medical record from [facility] were reviewed with the patient and [...] thoracic and lumbar xrays and MRI in [place]. brought a disc.new patient. low back pain with RT sided pain to nee x 2 months. h/o sx in 1998. thoracic and lumbar xrays and MRI in [place]. brought a disc.F/U Lumbar after therapy, says [...] family member Unknown mother Heart disease Unknown Relationship Condition Age at Onset Recorded Date/T crista mother Malignant neoplasm Unknown Heart disease Unknown Unknown father Malignant neoplasm Unknown brother Malignant neoplasm Unknown Diabetes mellitus Unknown Hypertension Unknown family member Unknown Summary Purpose Advance Directives No Advanced [...] for Visit AAA (abdominal aorti c aneurysm) Chief Complaint 1 YR F/U; ABD U/S 10 A I71.4 H mo f/u ILD Reason for Visit AAA (abdominal aorti c aneurysm) Bronchiectasis Grade I diastolic dysfunction Pulmonary fibrosis Reason for Referral Specialty Diagnoses / Procedures Referred By Rona t Referred To Contact Radiology Diagnoses Lumbar pain Procedures XR lumbar spine 2-3 views Curtis Meléndez MD [address] [facility], [address] [place] [id number] Referral ID Status Reason Start Date Expiration Date Visits Requested Visits Authorized [id number] Authorized Perform Procedure 06/03/2023 06/02/2024 1 1 Specialty Diagnoses / Procedures Referred By Contac t Referred To Contact Radiology Diagnoses Low back pain, unspecified back pain laterality, unspecified chronicity, unspecified whether sciatica present Procedures XR lumbar spine 2-3 views Curtis Meléndez MD [address] [facility], [address] [place] [id number] Referral ID Status Reason Start Date Expiration Date Visits Requested Visits Authorized [id number] Authorized Perform Procedure 02/28/2023 02/28/2024 1 1 [...] 2-3 views Curtis Meléndez MD [address] [facility], [address] [place] [id number] Referral ID Status Reason Start Date Expiration Date Visits Requested Visits Authorized [id number] Authorized Perform Procedure 06/03/2023 06/02/2024 1 1 (unrecognized sect ion and content) No Status Records FoundNo Status Records FoundNo Status Records FoundNo Status Records FoundNo Status Records FoundNo Status Records FoundNo Status Records FoundNo Status Records FoundNo Status Records Found INFORMATION SOURCE (unrecogn ized section and content) DATE CREATED AUTHOR 07/07/2022 [facility] DATE CREATED AUTHOR AUTHOR'S ORGANIZ ATION 10/25/2022 [facility] DATE CREATED AUTHOR AUTHOR'S ORGANIZ ATION 11/29/2022 [employer] DATE CREATED AUTHOR AUTHOR'S ORGANIZ ATION 12/11/2022 [facility] DATE CREATED AUTHOR AUTHOR'S ORGANIZ ATION 12/14/[address] [facility] DATE CREATED AUTHOR AUTHOR'S ORGANIZ ATION 12/24/2022 [facility] DATE CREATED AUTHOR AUTHOR'S ORGANIZ ATION 08/22/2023 [facility] DATE CREATED AUTHOR AUTHOR'S ORGANIZ ATION 10/07/2023 [facility] DATE CREATED AUTHOR AUTHOR'S ORGANIZ ATION 11/17/2023 [facility] Care Teams (unrecognized sec tion and content) Team Status: Active Member Role Status Dates Jean Nicholson MD Primary Care Provider Active Team Status: Inactive Member Role Status Dates Jean Nicholson MD Primary Care Provider Active Bianka Garcia STATEMENT CLERKS SUPERVISOR-C Attending Provider Active Varnishing Machine Operator Relationship Specialty Start Date End Date Carmen Witt MD [address] [place] [address] PCP - General 06/04/22 Team Status: Inactive [...] April 14, 2023 End: April 14, 2023 Varnishing Machine Operator Relationship Specialty Start Date End Date Carmen Witt MD [address] [place] [address] PCP - General 06/04/22 Varnishing Machine Operator Relationship Specialty Start Date End Date Carmen Witt MD [address] [place] [address] PCP - General 06/04/22 Team Status: Inactive Member Role Status Dates Julian Matthews MD Attending Provider Active Start: August 21, 2023 End: August 21, 2023 Carmen Witt MD Primary Care Provider Active Start: August 21, 2023 End: August 21, 2023 Team Status: Inactive Member Role Status Dates Carmen Witt MD Primary Care Provider Active Start: August 21, 2023 End: August 21, 2023 CIRO ErvinC Attending Provider Active Start: August 21, 2023 End: August 21, 2023 Team Status: Inactive Member Role Status Dates Carmen Witt MD Primary Care Provider Active Start: November 17, 2023 End: November 17, 2023 Danna Mcdaniel APRN [facility] Attending Provider Active Start: November 17, 2023 End: November 17, 2023 Goals (unrecognized section and content) Goals [...] BE BASED ON THE PRIMARY CLINICAL RECORDS. [facility]. provides no warranty or guarantee of the accuracy or completeness of information in this document.
[2023-12-09 11:02] LABS: Basophils Absolute Auto 0.1 10^3/uL (0.0-0.1); Basophils Percent Auto 1.2 % (0.2-2.0); Eosinophils Absolute Auto 0.2 10^3/uL (0.0-0.7); Eosinophils Percent Auto 2.2 % (0.9-7.0); Hematocrit 44.9 % (42.0-54.0); Hemoglobin 14.8 g/dL (14.0-18.0); Immature Granulocytes Abs Auto 0.03 10^3/uL (0.00-0.03); Immature Granulocytes Pct Auto 0.4 % (0.0-0.5); Lymphocytes Absolute Auto 1.1 10^3/uL (1.2-3.8); Lymphocytes Percent Auto 14.1 % (20.5-60.0); Mean Corpuscular Hemoglobin 32.1 pg (25.9-34.0); Mean Corpuscular Volume 97.4 fL (80.0-94.0); Mean Platelet Volume 10.4 fL (9.5-13.5); Monocytes Absolute Auto 0.8 10^3/uL (0.3-0.8); Monocytes Percent Auto 9.6 % (1.7-12.0); Neutrophils Absolute Auto 5.8 10^3/uL (1.4-6.5); Neutrophils Percent Auto 72.5 % (43.0-75.0); Platelet Count 218 10^3/uL (150-450); Red Blood Count 4.61 10^6/uL (4.70-6.10); Red Cell Distribution Width 13.8 % (11.0-15.0)
[2023-12-09 12:07] LABS: Alanine Aminotransferase 15 U/L (16-63); Albumin Globulin Ratio 0.8; Albumin Level 3.1 g/dL (3.4-5.0); Alkaline Phosphatase 152 U/L (46-116); Aspartate Amino Transferase 14 U/L (15-37); BUN Creatinine Ratio 11.6; Bilirubin Total 0.5 mg/dL (0.2-1.0); Calcium 9.4 mg/dL (8.5-10.1); Carbon Dioxide 28.1 mmol/L (21.0-32.0); Chloride 105 mmol/L (98-107); Estimated GFR (African America >60 (>=60 mL/min/1.73m^2); Estimated GFR (Non-African Ame 55 (>=60 mL/min/1.73m^2); Globulin 4.1 g/dL; Glucose 107 mg/dL (74-106); Potassium 4.1 mmol/L (3.5-5.1); Sodium 139 mmol/L (136-145); Total Protein 7.2 g/dL (6.4-8.2)
== END 2023-12-09 10:37 | disposition home or self-care (01) ==
LOC: LAB 10:40
PROVIDERS: PCP Family Medicine; Visit Provider Nurse Practitioner Family
DX: D64.9 Anemia, unspecified (principal); N18.2 Chronic kidney disease, stage 2 (mild)
CPT/HCPCS: 36415; 80053; 85025

== ENCOUNTER 2024-01-08 12:14 | Outpatient (OUT) | payer MEDICARE, SELFPAY ==
--- OUTSIDE RECORDS SUMMARY | 2024-01-08 12:20 | XMS_ITS | CCD ---
Author Organization [facility] Care Team Providers Care Union Representative Name Role Phone Jean Nicholson Unavailable Unavailable [...] ., DR LORENA Dunham Admitting Unavailable JUAN, KATHERNIE Primary Care Unavailable LAKSHMIPATHY ., MIKE Attending [...] KATHERINE Admitting Unavailable JUAN, KATHERINE Consulting Unavailable ANTIOCH, DR IRAIS Ramos Consulting Unavailable JUAN, KATHERINE Primary Care Unavailable JUAN, KATHERINE Attending Unavailable JUAN, KATHERINE Admitting Unavailable JUAN, KATHERINE Consulting Unavailable JUAN, KATHERINE Consulting Unavailable JUAN, KATHERINE Primary Care Unavailable JUAN, KATHERINE Attending Unavailable JUAN, KATHERINE Admitting Unavailable KUNAL, CYNDI Consulting Unavailable KUNAL, CYNDI Attending Unavailable KUNAL, CYNDI Admitting Unavailable JEAN NICHOLSON Primary Care Unavailable DRAGAN PALENCIA Unavailable JUSTIN ., DR LORENA Dunham Consulting [...] Lyla, Dr. Cecilio Harman Referring Aracely vailable Go, Dr. Cecilio Harman Attending Aracely vaCarmen Pollack Unavailable Curtis Meléndez Unavailable Cayden Flores Unavailable [...] Leonor Go, Dr. Cecilio Harman Attending Aracely vailamk Witt, Dr. Carmen Fabian Primary Care Unavail able Ángela, Dr. Curtis Keys Attending Leonor Meléndez, Dr. Curtis Keys Admitting Leonor Witt, Dr. Carmen Fabian Referring Unavail able Millicent, Dr. Carmen Fabian Primary Care Unavail able Carmen Witt Primary Care Physician [phone] Marino SPEAR Attending Unavailable Marino SPEAR Attending Unavailable Carmen Witt MD Primary Care Provider [phone] MD Jean Nihcolson Primary Care Provider JESISCA Mcdaniel Attending Provider MD Carmen Witt Primary Care Provider [phone] MD Carmen Witt Primary Care Provider [phone] EDEL Garcia Attending Provider Bianka Garcia Attending Unavailable Bianka Gacria Admitting Unavailable Carmen Witt Primary Care Unavailable VioletaAugustinDanna Attending Unavailable VioletaAugustinDanna Admitting Unavailable Carmen Witt Primary Care Unavailable Violeta Danna Admitting Unavailable Jean Nicholson [facility] Unavailable Danna Mcdaniel Attending Unavailable Reese JIMENEZ, Maribell Boland Attending Unavailable Reese JIMENEZ, Maribell Boland Attending Unavailable Reese JIMENEZ, Maribell Boland Attending Unavailable Reese JIMENEZ, Maribell Boland Attending Unavailable CURTIS MELÉNDEZ Attending Unavailable [...] (1 source) Nitroglycerin Drug Allergy 4 Unresponsive [facility] (20 sources) Nitroglycerin; Translations: [nitroglycerin] Drug Allergy 2 Other [facility] (9 sources) Nitroglycerin Drug Allergy Unknown [facility] Other (1 source) Aminolevulinic Acid Drug Allergy [facility] Rep[facility] (2 sources) Nitroglycerin Drug Allergy 2 [facility] Medications Current Medications Medication Drug Class(es) [...] may cause serious breathing problems. Start: 02-01-2021 oxyCODONE-acet aminophen (Percocet) 5-325 mg tablet TAKE 1 TABLET Twice daily PRN 02/01/2021 Active Start: 02-01-2021 oxyCODONE-Acet aminophen 5-325 MG Oral [...] Albuterol Sulfate Active 2.5 MG INHALATION Q6H November 17, 2023 12:00am Start: 07-14-2021 take [...] tablet (20 sources) Loop Diuretic Start: 12-18-2020 End: 11-05-2024 take 1 tablet by mouth once daily before mealtime furosemide (Lasix) 20 mg tablet Indications: Essential hypertension Take 1 tablet (20 mg) by mouth once daily in the morning. Take before meals. 90 tablet 11/06/2023 11/05/2024 Active lisinopril 20 mg oral tablet (20 sources) Angiotensin Converting Enzyme Inhibitor Start: 12-18-2020 take 1 tablet by mouth once daily lisinopril 20 mg tablet Take 1 tablet (20 mg) by mouth once daily. 01/11/2021 Active melatonin 10 mg extended release oral tablet (4 sources) Melatonin 10 MG as directed Orally Active metoprolol tartrate 25 mg oral tablet (20 sources) beta-Adrenergic Sushant Start: 02-06-2021 End: 11-05-2024 take 1 tablet by mouth twice daily metoprolol tartrate (Lopressor) 25 mg tablet Indications: Sinus tachycardia , Essential hypertension Take 1 tablet (25 mg) by mouth 2 times a day. 180 tablet 11/06/2023 11/05/2024 Active take 1 tablet by siobhan th every [...] (20 sources) Tricyclic Antidepressant Start: 01-30-20 take 1 capsule by mouth once daily at bedtime nortriptyline (Pamelor) 25 mg capsule Take 1 capsule (25 mg) by mouth once daily at bedtime. 01/29/2021 Active omeprazole 40 mg delayed release oral capsule (20 sources) Proton Pump Inhibitor Start: 01-12-20 take 1 capsule by mouth once daily omeprazole (PriLOSEC) [address] capsule Take 1 capsule (40 mg) by mouth once daily. 01/11/2021 Active Start: 12-18-2020 omeprazole Ora l, Daily, Refills(s) [...] sources) Cholinergic Muscarinic Antagonist Start: 12-18-2020 take 1 tablet by mouth once daily oxybutynin XL (Ditropan-XL) 10 mg 24 hr tablet Take 1 tablet (10 mg) by mouth once daily. 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 or intermediate school principal (current) drug therapy TAKE 1 TABLET BY MOUTH EVERY DAY 90 tablet 3 04/11/2023 Active temazepam 30 mg oral capsule (20 sources) [...] tab(s), Oral, q8hr, Refills(s) 0 Start Date: 10/25/21 Status: Ordered traZODone hydrochloride 50 mg oral [...] kidney; Translations: [Acute kidney failure, unspecified] Onset: 11-07-2022 11-05-2022 Episodic Acute myocardial infarction (1 source) Myocardial infarction 09-12-2018 Chronic Aortic; peripheral; and visceral artery aneurysms (20 sources) Abdominal aortic aneurysm; Translations: [Abdominal aneurysm without mention of rupture] Onset: 08-15-2021 Resolved: 08-15-2021 Chronic Asthma (1 source) Asthma; Translations: [Unspecified asthma, uncomplicated] 11-04-2023 Chronic Cancer of prostate (2 sources) Malignant neoplasm of prostate; Translations: [Malignant tumor of prostate] Onset: 12-23-2022 Chronic Cancer of prostate (6 sources) Personal history of malignant neoplasm of prostate; Translations: [History of malignant neoplasm of prostate] Onset: 12-20-2021 Episodic Chronic kidney disease (1 source) Chronic kidney disease, unspecified; Translations: [CHRONIC KIDNEY DISEASE UNSPECIFIED] Onset: 07-17-2021 Chronic Chronic obstructive pulmonary disease and bronchiectasis (11 sources) Chronic obstructive lung disease; Translations: [Chronic obstructive pulmonary disease, unspecified] Onset: 07-17-2021 11-17-2023 Chronic Congestive heart failure; nonhypertensive (1 source) Unspecified diastolic (congestive) heart failure; Translations: [UNSPECIFIED DIASTOLIC HEART FAILURE] Onset: 10-10-2021 Chronic Coronary atherosclerosis and other heart disease (1 source) Atherosclerotic heart disease of [place] coronary artery without angina pectoris; Translations: [ASHD [place] W/O ANGINA PECTORIS] Onset: 07-17-2021 Chronic Cystic fibrosis (7 sources) Cystic fibrosis, unspecified; Translations: [Cystic fibrosis] Onset: 11-29-2021 07-14-2021 Chronic Disorders of lipid metabolism (20 sources) Hyperlipidemia; Translations: [Other and unspecified hyperlipidemia] Onset: 11-07-2022 11-04-2022 Chronic Esophageal disorders (3 sources) Gastroesophageal reflux disease; Translations: [Esophageal reflux] Onset: 11-07-2022 11-04-2022 Chronic Essential hypertension (20 sources) Essential hypertension; Translations: [Unspecified essential hypertension] Onset: 11-07-2022 07-14-2021 Chronic Genitourinary symptoms and ill-defined conditions (2 sources) Male urinary stress incontinence; Translations: [Nocturnal enuresis] 09-12-2018 Chronic Genitourinary symptoms and ill-defined conditions (3 sources) Urgent desire to urinate; Translations: [Urgency of urination] Onset: 12-23-2022 Episodic Heart valve disorders (20 sources) Mitral valve regurgitation; Translations: [Mitral valve disorders] Onset: 11-07-2022 Chronic Comment on above: mild/moderate; Hypertension with complications and secondary hypertension (5 sources) Hypertensive heart disease with heart failure; Translations: [Hypertensive chronic kidney disease with stage 1 through stage 4 chronic kidney disease, or unspecified chronic kidney disease] Onset: 07-17-2021 Chronic Osteoarthritis (1 source) Arthritis 09-12-2018 Chronic Other acquired deformities (1 source) Spondylolisthesis, lumbar region; Translations: [Spondylolisthesis, lumbar region] Onset: 11-19-2022 Episodic Other aftercare (14 sources) Drug therapy finding; Translations: [Long-term (current) use of other medications] Episodic Other aftercare (2 sources) middle or intermediate school principal (current) use of anticoagulants; Translations: [EQUIPMENT PROCESSOR CURRNT USE ANTICOAGULANTS] Onset: 11-29-2021 Episodic Other and ill-defined heart disease (13 sources) Diastolic dysfunction; Translations: [Other ill-defined heart diseases] 04-08-2023 Chronic Other and ill-defined heart disease (7 sources) Other ill-defined heart diseases; Translations: [Heart disease, unspecified] Onset: 08-21-2021 Resolved: 08-21-2021 Chronic Other circulatory disease (20 sources) Respiratory crackles; Translations: [Abnormal chest sounds] Onset: 11-07-2022 11-07-2022 Episodic Other connective tissue disease (1 source) Arthrodesis status; Translations: [Arthrodesis status] Onset: 09-19-2022 Episodic Other hematologic conditions (1 source) High troponin I level; Translations: [Other specified abnormalities of plasma proteins] 07-14-2021 Episodic Other lower respiratory disease (20 sources) Fibrosis of lung; Translations: [Postinflammatory pulmonary fibrosis] Onset: 11-07-2022 07-14-2021 Chronic Other lower respiratory disease (9 sources) Parietoalveolar pneumopathy; Translations: [Interstitial pulmonary disease, unspecified] Chronic Other lower respiratory disease (5 sources) Interstitial pulmonary disease, unspecified; Translations: [ILD (interstitial lung disease) J84.9] Onset: 11-30-2020 Resolved: 08-21-2021 Chronic Other lower respiratory disease (5 sources) Pulmonary fibrosis, unspecified; Translations: [Postinflammatory pulmonary fibrosis] Onset: 11-07-2022 04-09-2023 Chronic Other lower respiratory disease (4 sources) Interstitial lung disease; Translations: [Interstitial pulmonary disease, unspecified] 04-09-2023 Chronic Other lower respiratory disease (18 sources) History of chronic obstructive airway disease; Translations: [Personal history of other diseases of respiratory system] Resolved: 02-06-2021 09-12-2018 Episodic Other lower respiratory disease (4 sources) Dyspnea, unspecified; Translations: [Dyspnea R06.00] Onset: 11-30-2020 Resolved: 11-30-2020 Episodic Other male genital disorders (1 source) Impotence 07-26-2019 Chronic Other nervous system disorders (1 source) Other chronic pain; Translations: [OTHER CHRONIC PAIN] Onset: 11-29-2021 Chronic Other nutritional; endocrine; and metabolic disorders (20 sources) Obesity; Translations: [Obesity, unspecified] Onset: 11-07-2022 Resolved: 02-06-2021 11-07-2022 Chronic Other nutritional; endocrine; and metabolic disorders (2 sources) Obesity, unspecified; Translations: [Obesity, unspecified] Onset: 11-07-2022 Chronic Other nutritional; endocrine; and metabolic disorders (2 sources) Body mass index (BMI) 30.0-30.9, adult; Translations: [Body mass index (BMI) 30.0-30.9, adult] Onset: 11-07-2022 Chronic Other nutritional; endocrine; and metabolic disorders (1 source) Obesity caused by energy imbalance; Translations: [Class 1 obesity due to excess calories without serious comorbidity with body mass index (BMI) of 30.0 to 30.9 in adult] 01-08-2024 Chronic Other nutritional; endocrine; and metabolic disorders (4 sources) Overweight in adulthood with body mass index of 25 or more but less than 30; Translations: [Overweight] Episodic Other screening for suspected conditions (not mental disorders or infectious disease) (9 sources) Radiology result abnormal; Translations: [Abnormal findings on diagnostic imaging of other specified body structures] Onset: 11-30-2020 Resolved: 11-30-2020 Chronic Pulmonary heart disease (8 sources) Saddle embolus of pulmonary artery; Translations: [Saddle embolus of pulmonary artery with acute cor pulmonale] Onset: 08-15-2021 Resolved: 08-15-2021 Chronic Pulmonary heart disease (20 sources) Pulmonary embolism; Translations: [Other pulmonary embolism and infarction] Onset: 07-17-2021 07-14-2021 Episodic Residual codes; unclassified (10 sources) Sleep apnea; Translations: [Sleep apnea, unspecified] 11-04-2023 Chronic Residual codes; unclassified (1 source) Sleep apnea, unspecified; Translations: [Sleep apnea G47.30] Onset: 11-30-2020 Resolved: 11-30-2020 Chronic Residual codes; unclassified (1 source) Obstructive sleep apnea (adult) (pediatric); Translations: [OBSTRUCTIVE SLEEP APNEA] Onset: 07-17-2021 Chronic Screening and history of mental health and substance abuse codes (18 sources) Ex-smoker; Translations: [Personal history of tobacco use] 07-26-2019 Episodic Spondylosis; intervertebral disc disorders; other back problems (13 sources) Spondylosis without myelopathy or radiculopathy, lumbar region; Translations: [Other intervertebral disc degeneration, lumbar region] Onset: 05-17-2022 11-07-2022 Chronic Spondylosis; intervertebral disc disorders; other back problems (20 sources) Dorsalgia, unspecified; Translations: [Intervertebral disc disorders with radiculopathy, lumbar region] Onset: 09-04-2021 Episodic Substance-related disorders (1 source) Nicotine dependence, cigarettes, uncomplicated; Translations: [NICOTINE DEPEND CIGARETTES UNCOMP] Onset: 07-17-2021 Chronic Unclassified (3 sources) LOW BACK PAIN, UNSPECIFIED; Translations: [LOW BACK PAIN, UNSPECIFIED] Onset: 05-17-2022 Unclassified (1 source) CONTACT W/AND (SUSP) EXPOS COVID-19; Translations: [CONTACT W/AND (SUSP) EXPOS COVID-19] Onset: 07-17-2021 Unclassified (3 sources) SPINAL STENOSIS, LUMBAR REGION WITHOUT NEUROGENIC EMETERIO 09-19-2022 Comment on above: SPINAL STENOSIS, LUM BAR REGION WITHOUT NEUROGENIC EMETERIO Unclassified (1 source) 6M 06-04-2022 Comment on above: 6M Unclassified (1 source) Primary hypertension 11-04-2022 Unclassified (1 source) Abdominal aortic aneurysm, without rupture, unspecified (CMS/HCC); Translations: [Abdominal aortic aneurysm, without rupture, unspecified (CMS/HCC)] Onset: 11-07-2022 Unclassified (1 source) Abdominal aortic aneurysm, without rupture, unspecified; Translations: [Abdominal aortic aneurysm, without rupture, unspecified] Onset: 07-31-2022 Unclassified (1 source) Interstitial pulmonary disease, unspecified; Translations: [Interstitial pulmonary disease, unspecified] Onset: 03-04-2023 Unclassified (1 source) Low back pain, unspecified; Translations: [Low back pain, unspecified] Onset: 06-03-2023 Past or Other Problems Problem Classification Problem Date Documented Date Episodic/Chronic Cardiac dysrhythmias (20 sources) Sinus tachycardia; Translations: [Other specified cardiac dysrhythmias] Onset: 11-07-2022 Episodic Hyperplasia of prostate (1 source) Benign prostatic hypertrophy with outflow obstruction Resolved: 09-12-2018 11-23-2018 Chronic Nonspecific chest pain (3 sources) Other chest pain; Translations: [OTHER CHEST PAIN] Onset: 07-14-2021 Episodic Other aftercare (1 source) Other middle or intermediate school principal (current) drug therapy; Translations: [OTH FDC CURRENT DRUG THERAPY] Onset: 07-17-2021 Episodic Other connective tissue disease (1 source) [...] Mass Index 31.0-31.9, adult] Resolved: 02-06-2021 Chronic Other screening for suspected conditions (not mental disorders or infectious disease) (20 sources) Electrocardiogram abnormal; Translations: [Nonspecific abnormal electrocardiogram [ECG] [EKG]] Onset: 11-07-2022 11-07-2022 Episodic Unclassified (2 sources) LOW BACK PAIN, UNSPECIFIED; Translations: [LOW BACK PAIN, UNSPECIFIED] Onset: 05-09-2022 Unclassified (1 source) Abdominal aortic aneurysm (AAA) without rupture, unspecified part I71.40 Unclassified (1 source) Abdominal aortic aneurysm, without rupture, unspecified (CMS/HCC); Translations: [Abdominal aortic aneurysm, without rupture, unspecified (CMS/HCC)] Onset: 12-09-2022 Unclassified (5 sources) Onset: 12-09-2022 Resolved: 01-08-2024 12-09-2022 Results Test Name Value Interpretation Reference Range Facility XR LUMBAR SPINE 2-3 VIEWSon 11-11-2023 XR LUMBAR SPINE 2-3 VIEWS Interpreted By: Curtis Meléndez, STUDY: XR LUMBAR SPINE 2-3 VIEWS; 11/11/2023 8:52 am INDICATION: Signs/Symptoms:pain. ACCESSION NUMBER(S): [id number] ORDERING CLINICIAN: CURTIS MELÉNDEZ FINDINGS: AP lateral [...] Curtis Meléndez 11/11/2023 9:36 AM Dictation workstation: [id number] [facility] US aortaon 08-21-2023 aorta [facility] [address] [place] [address] Ultrasound Report Signed Patient: Erik Morales MR#: [id number] : 1955 Acct:[id number] Age/Sex: 67 / M ADM Date: 08/21/23 Loc: [facility] Room: Type: [facility] Attending Dr: Bianka Garcia VOLUNTEER RECRUITER-C Ordering Provider: Bianka Garcia APRN Date of [...] Julian Matthews MD08/21/2023 2:21 PM [facility]ation [facility] Tech: Elham Rivera Transcribed By: LUIS 08/21/23 1421 Dictated By: Julian Matthews MD 08/21/23 1419 Signed By: 08/21/[address] [facility] XR LUMBAR SPINE 2-3 VIEWSon 06-03-2023 XR LUMBAR SPINE 2-3 VIEWS Interpreted By: Curtis Meléndez, STUDY: XR LUMBAR SPINE 2-3 VIEWS; 06/03/2023 1:42 pm INDICATION: Signs/Symptoms:pain. ACCESSION NUMBER(S): [id number] ORDERING CLINICIAN: CURTIS MELÉNDEZ FINDINGS: AP lateral [...] Curtis Meléndez 06/03/2023 1:56 PM Dictation workstation: [id number] [facility] XR Lumbar spine 2 or 3 Views on 06-03-2023 Interpreted By: Curtis Love, STUDY: XR LUMBAR SPINE 2-3 VIEWS; 06/03/2023 1:42 pm INDICATION: Signs/Symptoms:pain. ACCESSION NUMBER(S): [id number] ORDERING CLINICIAN: CURTIS MELÉNDEZ FINDINGS: AP lateral [...] Curtis Meléndez 06/03/2023 1:56 PM Dictation workstation: [id number] Curtis Wise MD - 06/03/2023 Interpreted By: Curtis Meléndez, STUDY: XR LUMBAR SPINE 2-3 VIEWS; 06/03/2023 1:42 pm INDICATION: Signs/Symptoms:pain. ACCESSION NUMBER(S): [id number] ORDERING CLINICIAN: CURTIS MELÉNDEZ FINDINGS: AP lateral [...] Curtis Meléndez 06/03/2023 1:56 PM Dictation workstation: [id number] [facility] Work Phone: [facility] Work Phone: Radiology Study observation (narrative) [facility] Work Phone: CT chest wo con high reson 0 04-15-2023 CT chest wo con high res [facility] Main [place] [address] [place] [address] CT Scan Report Signed Patient: Erik Morales MR#: [id number] : 1955 Acct:[id number] Age/Sex: 67 / M ADM Date: 04/14/23 Loc: CT Room: Type: [facility] Attending Dr: ISATU Gomez APRN Copies to: [...] Christopher Cline M.D.04/15/2023 9:21 AM Dictation Location: [place] [address] Transcribed By: [facility] 04/15/23920 Dictated By: Christopher Cline DO 04/15/23903 Signed By: 04/15/23920 Normal [facility] XR LUMBAR SPINE 2-3 VIEWSon 02-28-2023 XR LUMBAR SPINE 2-3 VIEWS Interpreted By: Curtis Meléndez, STUDY: XR LUMBAR SPINE 2-3 VIEWS; ; 02/28/2023 1:37 pm INDICATION: Signs/Symptoms:low back pain. ACCESSION NUMBER(S): [id number] ORDERING CLINICIAN: CURTIS MELÉNDEZ FINDINGS: AP lateral [...] Curtis Meléndez 02/28/2023 3:09 PM Dictation workstation: [id number] [facility] Lab Reportson 12-24-2022 Lab Reports [id number] [facility] Patient Educationon 12-24-19 23 Patient Education Oncology [...] Where to find more information ? The [place] [employer]: www.cancer.org ? [place] [employer]: www.auanet.org Contact a health care [...] flu (more content not included)... Normal [facility] Physician Orderon 12-23-2022 Physician Order [id number] Normal [facility] Urology Office/Clinic Noteon 12-23-2022 Urology Office/Clinic Note Chief Complaint Hx of prostate cancer (prostatectomy 2017) [facility] Staff 67 yo male here for 1yr [...] Urology [address], [place] [address]- [phone] Additional Instructions: 1 yr w/ PSA Patient [...] Negative (more content not included)... Normal [facility] Comment on above: Result Comment: Elec tronically Signed By: Marino SPEAR MD\.br\Date and Time Signed: 12/23/22 12:01 EDT\.br\Electronically Co-Signed By: Skye Miller\.br\Date and Time Co-Signed: 12/23/22 11:59 EDT Post Op (Orthopaedic Surgery )on 11-19-2022 Post Op (Orthopaedic Surgery) Orders Back pain Xray BN Spine, Lumbosacral; 2 or 3 Views; Status:Complete; Done: 19Nov2022 02:21PM Radiologist to Determine Optimal Study : [...] Xray BN Spine, Lumbosacral; 2 or 3 [id number] 02:21PMCurtis Meléndez Test NameResultFlagReference Xray Lumbar Spine AP + Lateral(Report) FINAL REPORT Interpreted by: CURTIS MELÉNDEZ JON, MD 11/19/22 16:41 Patient Name: ERIK MORALES STUDY: SPINE, LUMBOSACRAL; 2 OR 3 VIEWS; ; 11/19/2022 2:21 pm INDICATION: pain M54.9: Back pain. ACCESSION NUMBER(S): [id number] ORDERING CLINICIAN: CURTIS MELÉNDEZ FINDINGS: AP lateral x-rays of the lumbar spine show an L3-4 lateral lumbar fusion with lateral plate and cage configuration. Cage pl (more content not included)... Normal [facility] 11-19-2022 XR Lumbar spine AP and Lateral [facility]: SPINE, LUMBOSACRAL 2 OR 3 EWSon 11-19-2022 SPINE, LUMBOSACRAL 2 OR 3 VIEWS Patient Name: ERIK MORALES STUDY: SPINE, LUMBOSACRAL; 2 OR 3 VIEWS; ; 11/19/2022 2:21 pm INDICATION: pain M54.9: Back pain. ACCESSION NUMBER(S): [id number] ORDERING CLINICIAN: CURTIS MELÉNDEZ FINDINGS: AP lateral [...] Electronically signed by: CURTIS MELÉNDEZ MD Normal [facility] BASIC METABOLIC PANELon 10-25 Anion gap [Moles/Vol] 10 mmol/L Normal 10 - 20 [facility] Comment on above: Performed By: #### B MP #### [address] [phone] Calcium [Mass/Vol] 8.9 mg/dL Normal 8.6 - 10.3 [facility] Comment on above: Performed By: #### B MP #### [address] [id number] Chloride [Moles/Vol] 101 mmol/L Normal 98 - 107 [facility] Comment on above: Performed By: #### B MP #### [address] [id number] Creatinine [Mass/Vol] 1.15 mg/dL Normal 0.50 - 1.30 [facility] Comment on above: Performed By: #### B MP #### [address] [phone] GFR/1.73 sq M.predicted among non-blacks MDRD (S/P/Bld) [Vol rate/Area] 70 mL/min/{1.73_m2} Normal >90 [facility] Comment on above: Result Comment: CALC ULATIONS OF ESTIMATED GFR ARE PERFORMED USING THE 2020 CKD-EPI STUDY REFIT EQUATION WITHOUT THE RACE VARIABLE FOR THE IDMS-TRACEABLE CREATININE METHODS. https://jasn.asnjournals.org/content/early//ASN.8339619 988 Performed By: #### B MP #### [address] [id number] Glucose [Mass/Vol] 106 mg/dL High 74 - 99 [facility] Comment on above: Performed By: #### B MP #### [address] [id number] HCO3 (Bld) [Moles/Vol] 29 mmol/L Normal 21 - 32 [facility] Comment on above: Performed By: #### B MP #### [address] [id number] Potassium [Moles/Vol] 4.5 mmol/L Normal 3.5 - 5.3 [facility] Comment on above: Performed By: #### B MP #### [address] [id number] Sodium [Moles/Vol] 135 mmol/L Low 136 - 145 [facility] Comment on above: Performed By: #### B MP #### [address] [id number] Urea nitrogen [Mass/Vol] 13 mg/dL Normal 6 - 23 [facility] Comment on above: Performed By: #### B MP #### [address] [id number] Daily Progress Note-General Internal Medicineon 11-07-2022 Daily [...] intact. Objective Data: Objective Information: T PRBPMAPSpO2 [id number]% Date/Time11/07 8: 8: 8: 8: 21: 8:56 [...] laboratory results: Basic Metabolic Panel Trending View Efhetm14-Wmy-7000 10:23:00 -Oct-2022 05:48:00 Glucose, Jrypl201 H 95 NA135 L 138 K4.5 4.1 [...] discussed extensively with patient, RN and Ortho VOLUNTEER RECRUITER. Patient verbalized understanding through teach back method. All questions and concerns addressed upon examination. Of note, this documentation is completed using the [employer] system (voice recognition software). There may be spelling and/or grammatical errors that were not corrected prior to final submission. Plan of Care Reviewed With: Plan of Care Reviewed With: patient Electronic Signatures: Heidy Escobar (DOOR CORE ASSEMBLER-SERVICE LINE COORDINATOR) (Signed 07-Nov-2022 14:59) Authored: Service, Subjective Data, Objective Data, Assessment and Plan, Note Completion Last Updated: 07-Nov-2022 14:59 by Heidy Escobar (DOOR CORE ASSEMBLER-SERVICE LINE COORDINATOR) Normal [facility] Daily Progress Note-Orthopae dicson 11-07-2022 Daily Progress Note-Orthopaedics Service: Orthopaedics Subjective Data: ERIK MORALES is a 67 year old Male who is Hospital Day # 4 and POD #3 for 1. ;2. ;3. ;4. ;5. Patient seen and examined this morning. No acute events overnight. Objective Data: Objective Information: T PRBPMAPSpO2 [id number]% Date/Time11/06 21: 21: 21: 21: 21: 21:08 [...] to home today Electronic Signatures: Gilda Mcmahon (DOOR CORE ASSEMBLER-SERVICE LINE COORDINATOR) (Signed 07-Nov-2022 08:00) Authored: Service, Subjective Data, Objective Data, Assessment and Plan, Note Completion Abner Maldonado) (Signed 07-Nov-2022 11:31) Co-Signer: Service, Subjective Data, Objective Data, Assessment and Plan, Note Completion Last Updated: 07-Nov-2022 11:31 by Abner Maldonado) Normal [facility] Laboratory - Chemistry and C hemistry - challengeon 11-07-2022 Anion gap [Moles/Vol] 10 mmol/L 10 - 20 [facility] [place] Work Phone: Calcium [Mass/Vol] 8.9 mg/dL 8.6 - 10.[address] [facility] [place] Work Phone: Chloride [Moles/Vol] 101 mmol/L 98 - 107 [facility] [place] Work Phone: CO2 [Moles/Vol] 29 mmol/L 21 - 32 -[facility] [place] Work Phone: Creatinine [Mass/Vol] 1.15 mg/dL See Below [facility] [place] Work Phone: Comment on above: Reference Range: 0.5 0 - 1.30 Glucose [Mass/Vol] 106 mg/dL above high threshold 74 - 99 -[facility] [place] Work Phone: Potassium [Moles/Vol] 4.5 mmol/L 3.5 - 5.3 [facility] Work Phone: Sodium [Moles/Vol] 135 mmol/L below low threshold 136 - 145 [facility] Work Phone: Urea nitrogen [Mass/Vol] 13 mg/dL 6 - 23 [facility] Work Phone: No Panel Informationon 11-07 70 {mL/min/1.73m2} >90 [facility] Work Phone: Comment on above: CALCULATIONS OF MEGAN MATED GFR ARE PERFORMED USING THE 2020 CKD-EPI STUDY REFIT EQUATION WITHOUT THE RACE VARIABLE FOR THE IDMS-TRACEABLE CREATININE METHODS.https://jasn.asnjournals.org/content//09/22/ASN .5122595171 Order Reconciliationon 11-07 Order Reconciliation Page 1 Discharge Reconciliation Document Reconciliation Type: Discharge requested on behalf of Gilda Mcmahon (Advanced Practice Nurse-Admit) done by Gilda Mcmahon (DOOR CORE ASSEMBLER-SERVICE LINE COORDINATOR) Discharge - Reconciliation: 07-Nov-2022 09:21 by: Gilda Mcmahon (DOOR CORE ASSEMBLER-[facility]) Home Medications EnteredHOME MEDICATIONS AT DISCHARGE [...] oral tablet is not required Potassium Chloride (Ljq-Rueo-Jgn 10) 10 mEq oral tablet, extended release 1 tab(s) orally once a day 21-Oct-2022 13:59 Potassium Chloride (Wwr-Vois-Ocj 10) 10 mEq oral tablet, extended release 1 tab(s) orally once a day 21-Oct-2022 13:59 Potassium Chloride (Hok-Zcsj-Uxl 10) 10 mEq oral tablet, extended release is continued as Potassium Chloride (Dpz-Zvuw-Ktt 10) 10 mEq oral tablet, extended release [...] Lactated Ringers (more content not included)... Normal [facility] Rehab Note-occupational therapy assist rohit 11-07-2022 Rehab Note-occupational therapy Rehab: Info: Mode of Treatmentoccupational therapy Time IN07:31 Time OUT08:00 Total Treatment [id number] Patient in ... at end of sessionchair; [...] Mobility/Tone: Bed Mobility Assessment/Interventionssu pine to sit Gndsor-qo-Imo Miracle (Bed Mobility)standby assist; verbal cues; nonverbal cues (demo/gesture) Comment, Bed MobilityEducated pt on log roll technique to maintain spinal precautions. Simulated home s/u and transferred towards right side. Transfer Assessment/Interventionssi t to stand transfer; stand to sit transfer; bed to chair transfer; toilet transfer; shower transfer Comment, TransfersMin verbal cues for hand placement with sit <>stand transfers. Bed-Chair Miracle (Transfers)standby assist Bed-Chair Assistive Device (Transfers)walker, front-wheeled Sit-Stand Miracle (Transfers)standby assist; Multiple sit <>stand transfers performed from various surfaces and surface heights. Pt benefits from elevated surfaces however is able to complete transfers from standard surface heights. Sit-Stand Assistive Device (Transfers)walker, front-wheeled Stand-Sit Miracle (Transfers)standby assist Stand-Sit Assistive Device (Transfers)walker, front-wheeled Shower Miracle (Transfers)Pt reports having shower chair at home which he has used prior to admission. Verbal education provided on safe transfer techniques. Pt also educated to have someone present with transfer for fall prevention. Toilet Miracle (Transfers)standby assist Toilet Assistive Device (Transfer)grab bars/safety [...] Assessment/Interventionlow er body dressing; toileting; grooming; bathing Miracle Level (Bathing)Pt educated on using a site monitor to complete LB bathing vs purchasing a LH sponge. Verbal and visual education provided on technique from seated position on shower chair. Pt verbalized understanding. Miracle Level (Lower Body Dressing)don; pants/bottoms; shoes/slippers Assistive Devices (Lower Body Dressing)site monitor Comment (Lower Body Dressing)Reviewed education on use of site monitor. Wilfredo pants while seated EOB with fair (+) balance. Pt donned LB clothing with SBA. Educated pt on how to use site monitor to wilfredo slip on shoes. Pt reports brother can also assist with donning shoes. Pt educated to not walk in tedhose only, always wear shoes or non-slip socks Miracle Level (Grooming)standby assist Position (Grooming)standing Miracle Level (Toileting)standby assist Position (Toileting)sitting Skilled BADL Treatment/Interventionadap tive equipment training; BADL process/adaptation training; compensatory training; energy conservation Motor: Gam-ii-Amhsm (Balance)F+ Standing, Static (Balance)F+ Standing, Dynamic (Balance)F+ [...] Score20 Short Term Goals: Functional Transfer: Established Zqnh42-Bsf-8480 Functional Transfer: Goal Detailspt will transfer to bed ,chair, toilet with modified indep Functional Transfer: Time Frame for Go (more content not included)... Normal [facility] Rehab Note-physical therapyo n 11-07-2022 Rehab Note-physical therapy Rehab: Info: Disciplinephysical therapist Mode of Treatmentphysical therapy Time IN08:16 Time OUT08:48 Total Treatment Omhzdmr65 Patient in ... at end of sessionchair; [...] brace in place. PT placed hands over production control planner on walker to cue pt of his [...] Score18 Short Term Goals: Bed Mobility: Date Qvusvxtjigh19-Ore-0852 Bed Mobility: Miracle Level Goalmodified independent; supine <> sidelying <> sitting Transfer: Established Wxks39-Djf-9100 Transfer: Transfer Type Uqfilfy-ps-xhhst/chair-to- bed; zhn-pc-hwevq/ftsth-nt-ksp Transfer: Miracle Level Goalmodified independent Transfer: Assistive Device Goalrolling walker Gait: Established Wqwi21-Ygq-4591 Gait: Miracle Level Goalmodified independent Gait: Assistive Device Goalrolling walker Gait: Distance Lxua230' Education: Learnerpatient Barriers to Learningno barrier Methodverbal [...] home Outcome Summary: Predicted Duration of Therapy Ystzrexgkxie56 days Progress: Physical Therapyprogress toward functional goals as expected Therapy Frequency (PT Eval)2 times/day Predicted Duration of Therapy Cvfchqbnunxn03 days DC Recommendations: Discharge Recommendation (PT Eval)Pt would benefit from [facility] Electronic Signatures: Daniela Scott (PT) (Signed 07-Nov-2022 15:34) Co-Signer: Info, Mobility/Tone, Outcomes Tools, Short Term Goals, Education, Outcome Summary, DC Recommendations Fior Velez (SPT) (Signed 07-Nov-2022 13:43) Authored: Info, Mobility/Tone, Outcomes Tools, Short Term Goals, Education, Outcome Summary, DC Recommendations Last Updated: 07-Nov-2022 15:34 by Daniela Scott (PT) Normal [facility] BASIC METABOLIC PANELon 09- Anion gap [Moles/Vol] 9 mmol/L Low 10 - 20 [facility] Comment on above: Performed By: #### B MP #### [address] [id number] Calcium [Mass/Vol] 8.6 mg/dL Normal 8.6 - 10.3 [facility] Comment on above: Performed By: #### B MP #### [address] [id number] Chloride [Moles/Vol] 105 mmol/L Normal 98 - 107 [facility] Comment on above: Performed By: #### B MP #### [address] [id number] Creatinine [Mass/Vol] 1.37 mg/dL High 0.50 - 1.30 [facility] Comment on above: Performed By: #### B MP #### [address] [id number] GFR/1.73 sq M.predicted among non-blacks MDRD (S/P/Bld) [Vol rate/Area] 57 mL/min/{1.73_m2} Abnormal >90 [facility] Comment on above: Result Comment: CALC ULATIONS OF ESTIMATED GFR ARE PERFORMED USING THE 2020 CKD-EPI STUDY REFIT EQUATION WITHOUT THE RACE VARIABLE FOR THE IDMS-TRACEABLE CREATININE METHODS. https://jasn.asnjournals.org/content/early//ASN.9753832 988 Performed By: #### B MP #### [address] [id number] Glucose [Mass/Vol] 95 mg/dL Normal 74 - 99 [facility] Comment on above: Performed By: #### B MP #### [address] [id number] HCO3 (Bld) [Moles/Vol] 28 mmol/L Normal 21 - 32 [facility] Comment on above: Performed By: #### B MP #### [address] [id number] Potassium [Moles/Vol] 4.1 mmol/L Normal 3.5 - 5.3 [facility] Comment on above: Performed By: #### B MP #### [facility] [address] [place], [place] [id number] Sodium [Moles/Vol] 138 mmol/L Normal 136 - 145 [facility] Comment on above: Performed By: #### B MP #### [address] [id number] Urea nitrogen [Mass/Vol] 14 mg/dL Normal 6 - 23 [facility] Comment on above: Performed By: #### B MP #### [address] [id number] Daily Progress Note-General Internal Medicineon 11-06-2022 Daily [...] intact. Objective Data: Objective Information: T PRBPMAPSpO2 [id number]/437503% Date/Time11/06 8: 8: 8: 8: 8: 8:18 Range(36.2C - 37.4C ) (63 - 79 ) (16 - 18 ) (104 - 132 )/ (58 - 77 ) (76 - 97 ) (94% - 96% ) Highest temp of 37.4 C was recorded at 11/05 19:08 Pain reported at 11/06 7:23: sleeping ---- Intake and Output ----- Mn/Dy/[facility]Out[facility] Nov 06, 2022 6:00 [id number] Nov 05, 2022 10:00 [id number] Nov 05, 2022 2:00 [id number] The Intake and Output Totals for the last 24 hours are: IntakeOutputNet [id number] Physical Exam Narrative: Physical Exam: Constitutional: awake/alert/oriented [...] spirometer education and demonstration addressed Discharge planning [facility] reviewed Vital signs every 8 # HTN [...] discussed extensively with patient, RN and Ortho VOLUNTEER RECRUITER. Patient verbalized understanding through teach back method. All questions and concerns addressed upon examination. Of note, this documentation is completed using the [employer] Dictation system (voice recognition software). There may be spelling and/or grammatical errors that were not corrected prior to final submission. Plan of Care Reviewed With: Plan of Care Reviewed With: patient Elec (more content not included)... Normal [facility] Daily Progress Note-Orthopae frederic 11-06-2022 Daily Progress Note-Orthopaedics Service: Orthopaedics Subjective Data: ERIK MORALES is a 67 year old Male who is Hospital Day # 3 and POD #2 for 1. ;2. ;3. ;4. ;5. Overnight Events: Patient had an uneventful night. Objective Data: Objective Information: T PRBPMAPSpO2 Value37.07284637/098154% Date/Time11/06 8: 8: 8: 8: 8: 8:18 Range(36.2C - 37.4C ) (63 - 79 ) (16 - 18 ) (104 - 132 )/ (58 - 77 ) (76 - 97 ) (94% - 96% ) Highest temp of 37.4 C was recorded at 11/05 19:08 Pain reported at 11/06 7:23: sleeping ---- Intake and Output ----- Mn/Dy/Year TimeIntakeOutputNet Nov 06, 2022 6:00 [id number] Nov 05, 2022 10:00 [id number] Nov 05, 2022 2:00 [id number] The Intake and Output Totals for the last 24 hours are: IntakeOutputNet [id number] T PRBPMAPSpO2 [id number]/261465% Date/Time11/06 8: 8: 8: 8: 8: 8:18 [...] bed -home today Electronic Signatures: Derrick Cunningham (DOOR CORE ASSEMBLER-SERVICE LINE COORDINATOR) (Signed 06-Nov-2022 09:07) Authored: Service, Subjective Data, Objective Data, Assessment and Plan, Note Completion Last Updated: 06-Nov-2022 09:07 by Derrick Cunningham (DOOR CORE ASSEMBLER-SERVICE LINE COORDINATOR) Normal [facility] Discharge Mtopejw7nr 023 Discharge Profile2 Discharge Orders: Anticipated Discharge Date: Anticipated Discharge Dirb20-Qwv-5704 Anticipated Discharge Time12:00 Problem List: Admitting Dx: [...] Review of Medication Reconciliation and Orders Completedby DOOR CORE ASSEMBLER Reviewing ProviderFAINA Dwyer at 07-Nov-2022 09:17:40 Appointments: Follow-Up Appointment 01: Physician/Dept/ServiceDr. Meléndez Reason for Referralback Call to Schedule in2 weeks, please call ahead and schedule appointment [id number] Transportation [facility] Phone [phone] Electronic Signatures: Gilda Mcmahon (JESSICA-TRAY) (Signed 07-Nov-2022 09:17) Authored: Discharge Orders, Home Care Orders, Provider FINAL REVIEW of Orders, Appointments, Gold Form - Conductor Pullman Summary Last Updated: 07-Nov-2022 09:17 by Gilda Mcmahon (JESSICA-SERVICE LINE COORDINATOR) Normal [facility] Laboratory - Chemistry and C hemistry - challengeon 11-06-2022 Anion gap [Moles/Vol] 9 mmol/L below low threshold 10 - 20 [facility] Work Phone: Calcium [Mass/Vol] 8.6 mg/dL 8.6 - 10.3 [facility] Work Phone: Chloride [Moles/Vol] 105 mmol/L 98 - 107 [facility] [place] Work Phone: CO2 [Moles/Vol] 28 mmol/L 21 - 32 [facility] [place] Work Phone: Creatinine [Mass/Vol] 1.37 mg/dL above high threshold See Below [facility] Work Phone: Comment on above: Reference Range: 0.5 0 - 1.30 Glucose [Mass/Vol] 95 mg/dL 74 - [address] [facility] [place] Work Phone: Potassium [Moles/Vol] 4.1 mmol/L 3.5 - 5.3 [facility] Work Phone: Sodium [Moles/Vol] 138 mmol/L 136 - 145 [facility] Work Phone: Urea nitrogen [Mass/Vol] 14 mg/dL 6 - 23 -[facility] Work Phone: MAGNESIUMon 11-06-2022 Magnesium [Mass/Vol] 2.06 mg/dL Normal 1.60 - 2.40 [facility] Comment on above: Performed By: #### M G #### [address] [id number] Magnesium, Serumon Magnesium [Mass/Vol] 2.06 mg/dL See Below [facility] Work Phone: Comment on above: Reference Range: 1.6 0 - 2.40 No Panel Informationon 11-06 57 {mL/min/1.73m2} Abnormal >[address] [facility] Work Phone: Comment on above: CALCULATIONS OF MEGAN MATED GFR ARE PERFORMED USING THE 2020 CKD-EPI STUDY REFIT EQUATION WITHOUT THE RACE VARIABLE FOR THE IDMS-TRACEABLE CREATININE METHODS.https://jasn.asnjournals.org/content//ASN .1902851176 Rehab Note-occupational therapy assist rohit 11-06-2022 Rehab Note-occupational therapy Rehab: Info: Mode of Treatmentoccupational therapy Time IN10:20 Time OUT10:58 Total Treatment [id number] Patient in ... at end of sessionchair; [...] sitting on sofas and armless chairs. Sit-Stand Miracle (Transfers)contact guard Sit-Stand Assistive Device (Transfers)walker, front-wheeled Stand-Sit Miracle (Transfers)contact guard Stand-Sit Assistive Device (Transfers)walker, front-wheeled Toilet Miracle (Transfers)contact guard Toilet Assistive Device (Transfer)grab bars/safety [...] alignment. UB bathing and dressing with SBA Miracle Level (Lower Body Dressing)don; pants/bottoms; shoes/slippers; minimum assist (75% patient effort) Assistive Devices (Lower Body Dressing)site monitor Comment (Lower Body Dressing)Pt educated on use of site monitor and sock aid for LB dressing with fair understanding and return demonstration. Miracle Level (Grooming)contact guard Comment (Grooming)Pt performed G/H tasks in stance at sink with fair balance x 2 1/2 min Motor: Yna-xa-Lrhwq (Balance)fair balance Standing, Static (Balance)fair balance Standing, [...] Score18 Short Term Goals: Functional Transfer: Established Jglg38-Exs-5410 Functional Transfer: Goal Detailspt will transfer to bed ,chair, toilet with modified indep Functional Transfer: Time Frame for Goal2 wks Balance: Established Balance: Goal DetailsPt will demo fair + dyn std balance with ADLS Balance: Time Frame for Goal2 wks Upper Body Dressing: Established Upper Body Dressing: Miracle Level Goalstand-by assist Upper Body Dressing: Time Frame for Goal2 wks Lower Body Dressing: Established Lower Body Dressing: Miracle Level Goalminimum assist (75% patients effort) Lower [...] to d (more content not included)... Normal [facility] Rehab Note-physical therapyo n 11-06-2022 Rehab Note-physical therapy Rehab: Info: Disciplinephysical therapist Mode of Treatmentphysical therapy Time IN13:41 Time OUT14:07 Total Treatment Ntnownv78 Patient in ... at end of sessionbed, [...] Score18 Short Term Goals: Bed Mobility: Date Mvkxryuiknq43-Gtq-6513 Bed Mobility: Miracle Level Goalmodified independent; supine <> sidelying <> sitting Transfer: Established Jqqj33-Jrd-8990 Transfer: Transfer Type Gstfgaj-pk-luqjn/chair-to- bed; zfj-vr-pxxrp/jkrov-yt-vmc Transfer: Miracle Level Goalmodified independent Transfer: Assistive Device Goalrolling walker Gait: Established Cidk39-Gnb-5664 Gait: Miracle Level Goalmodified independent Gait: Assistive Device Goalrolling walker Gait: Distance Oatw359' Education: Learnerpatient Barriers to Learningno barrier Methodverbal [...] home Outcome Summary: Predicted Duration of Therapy Utdnzguwdsgc30 days Progress: Physical Therapyprogress toward functional goals as expected Therapy Frequency (PT Eval)2 times/day Predicted Duration of Therapy Wztmmynhewtp64 days DC Recommendations: Discharge Recommendation (PT Eval)Pt would benefit from [facility] Electronic Signatures: Daniela Scott (PT) (Signed 07-Nov-2022 03:43) Co-Signer: Info, Mobility/Tone, Motor, Sensory, Outcomes Tools, Short Term Goals, Education, Outcome Summary, DC Recommendations Fior Velez (SPT) (Signed 06-Nov-2022 14:31) Authored: Info, Mobility/Tone, Motor, Sensory, Outcomes Tools, Short Term Goals, Education, Outcome Summary, DC Recommendations Last Updated: 07-Nov-2022 03:43 by Daniela Scott (PT) Normal [facility] Rehab Note-physical therapy Rehab: Info: Mode of Treatmentphysical therapy Time IN09:36 Time OUT10:17 Total Treatment Reqzpnq59 Patient in ... at end of sessionchair; alarm on Patient Effortgood Symptoms Noted During/After Treatmentfatigue Treatment Considerations/CommentsSer vices provided by Alta Velez, [facility] with direct supervision and guidance from [...] Score18 Short Term Goals: Bed Mobility: Date Lyhqpbecbpv25-Dvl-1802 Bed Mobility: Miracle Level Goalmodified independent; supine <> sidelying <> sitting Transfer: Established Ckcd77-Adv-4257 Transfer: Transfer Type Belcqvu-eq-fnrdr/chair-to- bed; knn-yo-xoksn/jauft-qe-xaf Transfer: Miracle Level Goalmodified independent Transfer: Assistive Device Goalrolling walker Gait: Established Gnwl74-Rqn-5278 Gait: Miracle Level Goalmodified independent Gait: Assistive Device Goalrolling walker Gait: Distance Gjwm613' Education: Learnerpatient Methodverbal Topicrehab plan of care; precautions; discharge recommendations including destination and/or equipment; fall prevention Education - Topicproper use of FWW for transfers and gait to reduce the risk of fall, reviewed spinal precautions and body mechanics for getting in and out of bed, concerns for discharging home Outcome Summary: Predicted Duration of Therapy Jgldubaeumil27 days Progress: Physical Therapyprogress towards functional goals is fair Therapy Frequency (PT Eval)2 times/day Predicted Duration of Therapy Jcxvyjvaowgt97 days DC Recommendations: Discharge Recommendation (PT Eval)Pt would benefit from [facility] Electronic Signatures: Daniela Scott (PT) (Signed 07-Nov-2022 03:43) Co-Signer: Info, Mobility/Tone, Outcomes Tools, Short Term Goals, Education, Outcome Summary, DC Recommendations Fior Velez (SPT) (Signed 06-Nov-2022 14:30) Authored: Info, Mobility/Tone, Outcomes Tools, Short Term Goals, Education, Outcome Summary, DC Recommendations Last Updated: 07-Nov-2022 03:43 by Daniela Scott (PT) Normal [facility] BASIC METABOLIC PANELon 10-25 Anion gap [Moles/Vol] 12 mmol/L Normal 10 - 20 [facility] Comment on above: Performed By: #### B MP #### [address] [id number] Calcium [Mass/Vol] 8.8 mg/dL Normal 8.6 - 10.3 [facility] Comment on above: Performed By: #### B MP #### [address] [id number] Chloride [Moles/Vol] 101 mmol/L Normal 98 - 107 [facility] Comment on above: Performed By: #### B MP #### [address] [id number] Creatinine [Mass/Vol] 1.75 mg/dL High 0.50 - 1.30 [facility] Comment on above: Performed By: #### B MP #### [address] [id number] GFR/1.73 sq M.predicted among non-blacks MDRD (S/P/Bld) [Vol rate/Area] 42 mL/min/{1.73_m2} Abnormal >90 [facility] Comment on above: Result Comment: CALC ULATIONS OF ESTIMATED GFR ARE PERFORMED USING THE 2020 CKD-EPI STUDY REFIT EQUATION WITHOUT THE RACE VARIABLE FOR THE IDMS-TRACEABLE CREATININE METHODS. https://jasn.asnjournals.org/content/early/ASN.0031571 988 Performed By: #### B MP #### [address] [id number] Glucose [Mass/Vol] 131 mg/dL High 74 - 99 [facility] Comment on above: Performed By: #### B MP #### [address] [id number] HCO3 (Bld) [Moles/Vol] 26 mmol/L Normal 21 - 32 [facility] Comment on above: Performed By: #### B MP #### [address] [id number] Potassium [Moles/Vol] 4.0 mmol/L Normal 3.5 - 5.3 [facility] Comment on above: Performed By: #### B MP #### [address] [id number] Sodium [Moles/Vol] 135 mmol/L Low 136 - 145 [facility] Comment on above: Performed By: #### B MP #### [address] [id number] Urea nitrogen [Mass/Vol] 14 mg/dL Normal 6 - 23 [facility] Comment on above: Performed By: #### B MP #### [address] [id number] CBCon 11-05-2022 Erythrocyte distribution width (RBC) [Ratio] 13.4 % Normal 11.5 - 14.5 [facility] [facility] Comment on above: Performed By: #### C BC #### [address] [id number] Hematocrit (Bld) [Volume fraction] 43.6 % Normal 41.0 - 52.0 [facility] Comment on above: Performed By: #### C BC #### [address] [id number] Hemoglobin (Bld) [Mass/Vol] 14.3 g/dL Normal 13.5 - 17.5 [facility] Comment on above: Performed By: #### C BC #### [address] [id number] MCHC (RBC) [Mass/Vol] 32.8 g/dL Normal 32.0 - 36.0 [facility] Comment on above: Performed By: #### C BC #### [address] [id number] MCV (RBC) [Entitic vol] 96 fL Normal 80 - 100 [facility] Comment on above: Performed By: #### C BC #### [address] [id number] Platelets (Bld) [#/Vol] 244 10*3/uL Normal 150 - 450 [facility] Comment on above: Performed By: #### C BC #### [address] [id number] RBC 4.54 x10E12/L Normal 4.50 - 5.90 [facility] Comment on above: Performed By: #### C BC #### [address] [id number] WBC (Bld) [#/Vol] 16.4 10*3/uL High 4.4 - 11.3 [facility] Comment on above: Performed By: #### C BC #### [address] [id number] Daily Progress Note-General Internal Medicineon 11-05-2022 Daily [...] intact. Objective Data: Objective Information: T PRBPMAPSpO2 [id number]/658375% Date/Time11/05 7: 0: 0: 7: 7: 7:33 [...] ----- Mn/Dy/Year TimeIntakeOutputNet Nov 05, 2022 6:00 [id number] Nov 04, 2022 10:00 [id number] Nov 04, 2022 2:00 [id number] The Intake and Output Totals for the last 24 hours are: IntakeOutputNet [id number] Physical Exam Narrative: Physical Exam: Constitutional: awake/alert/oriented [...] interview, assessm (more content not included)... Normal [facility] Daily Progress Note-Orthopae frederic 11-05-2022 Daily Progress Note-Orthopaedics Service: Orthopaedics Subjective Data: ERIK MORALES is a 67 year old Male who is Hospital Day # 2 and POD #1 for 1. ;2. ;3. ;4. ;5. Overnight Events: Patient had an uneventful night. Objective Data: Objective Information: T PRBPMAPSpO2 Value36.35872877/908374% Date/Time11/05 7:339 0:40912 0:40912 7:339 7: 7:33 Range(36.1C - [...] ----- Mn/Dy/Year TimeIntakeOutputNet Nov 05, 2022 6:00 [id number] Nov 04, 2022 10:00 [id number] Nov 04, 2022 2:00 [id number] The Intake and Output Totals for the last 24 hours are: IntakeOutputNet [id number] T PRBPMAPSpO2 Value36.35939140/612077% Date/Time11/05 7: 0: 0: 7: 7: 7:33 [...] out of bed Electronic Signatures: Derrick Cunningham (DOOR CORE ASSEMBLER-SERVICE LINE COORDINATOR) (Signed 05-Nov-2022 08:16) Authored: Service, Subjective Data, Objective Data, Assessment and Plan, Note Completion Curtis Maldonado) (Signed 05-Nov-2022 09:30) Co-Signer: Service, Subjective Data, Objective Data, Assessment and Plan, Note Completion Last Updated: 05-Nov-2022 09:30 by Curtis Maldonado) [facility] Laboratory - Chemistry and C hemistry - challengeon 11-05-2022 Anion gap [Moles/Vol] 12 mmol/L 10 - 20 [facility] [place] Work Phone: Calcium [Mass/Vol] 8.8 mg/dL 8.6 - 10.[address] [place] Work Phone: Chloride [Moles/Vol] 101 mmol/L 98 - 107 [facility] [place] Work Phone: CO2 [Moles/Vol] 26 mmol/L 21 - 32 -[facility] [place] Work Phone: Creatinine [Mass/Vol] 1.75 mg/dL above high threshold See Below -[facility] [place] Work Phone: Comment on above: Reference Range: 0.5 0 - 1.30 Glucose [Mass/Vol] 131 mg/dL above high threshold 74 - 99 [facility] [place] Work Phone: Potassium [Moles/Vol] 4.0 mmol/L 3.5 - 5.3 [facility] Work Phone: [phone] Sodium [Moles/Vol] 135 mmol/L below low threshold 136 - 145 [facility] Work Phone: [phone] Urea nitrogen [Mass/Vol] 14 mg/dL 6 - 23 [facility] Work Phone: [phone] Laboratory - Hematology and Cell countson 11-05-2022 Erythrocyte distribution width (RBC) [Ratio] 13.4 % See Below [facility] Work Phone: [phone] Comment on above: Reference Range: 11. 5 - 14.5 Hematocrit (Bld) [Volume fraction] 43.6 % See Below [facility] Work Phone: Comment on above: Reference Range: 41. 0 - 52.0 Hemoglobin (Bld) [Mass/Vol] 14.3 g/dL See Below [facility] Work Phone: [phone] Comment on above: Reference Range: 13. 5 - 17.5 MCHC (RBC) [Mass/Vol] 32.8 g/dL See Below [facility] Work Phone: Comment on above: Reference Range: 32. 0 - 36.0 MCV (RBC) [Entitic vol] 96 fL 80 - 100 [facility] Work Phone: [phone] Platelets (Bld) [#/Vol] 244 10*3/uL 150 - 450 [facility] Work Phone: [phone] RBC (Bld) [#/Vol] 4.54 {x10E12/L} See Below [facility] Work Phone: [phone] Comment on above: Reference Range: 4.5 0 - 5.90 WBC (Bld) [#/Vol] 16.4 10*3/uL above high threshold 4.4 - 11.3 [facility] [place] Work Phone: No Panel Informationon 11-05 42 {mL/min/1.73m2} Abnormal >90 [facility] Work Phone: Comment on above: CALCULATIONS OF MEGAN MATED GFR ARE PERFORMED USING THE 2020 CKD-EPI STUDY REFIT EQUATION WITHOUT THE RACE VARIABLE FOR THE IDMS-TRACEABLE CREATININE METHODS.https://jasn.asnjournals.org/content/early//ASN .2289159306 OT Evaluation v2-occupationa l therapyon 11-05-2022 OT Evaluation v2-occupational therapy Rehab: Info: Mode of Treatmentoccupational therapy Time IN07:41 Time OUT08:05 Total Treatment Minutes0 Patient Effortgood Symptoms Noted During/After Treatmentnone Patient Profile Reviewedyes Onset of Illness/Injury or Date of Nfpelkk39-Zbg-2962 Reason for ReferralL2-3, L3-4 lami, L3-4 lateral [...] Static (Balance)good balance Sitting, Dynamic (Balance)good balance Svp-ta-Qrwrw (Balance)good balance Standing, Static (Balance)fair balance Standing, Dynamic (Balance)fair balance Sensory: Pre-Treatment Pain Rating3/10 Post-Treatment Pain Rating3/10 Comment, Pre/Post Treatment Painlow back pain Sensory General Assessmentno sensation deficits identified Impression: Criteria for Skilled Therapeutic Interventions Met (OT Eval)treatment indicated OT DiagnosisADL impairment Rehab Potential (OT Eval)good, to achieve stated therapy goals Therapy Frequency (OT Eval)2 times/wk Predicted Duration of Therapy Xepgbsthdxsa77 days Functional Limitations in Following Categoriesself-care Planned [...] Upper Body Dressing: Established Upper Body Dressing: Miracle Level Goalstand-by assist Upper Body Dressing: Time Frame for Goal2 wks Lower Body Dressing: Established Lower Body Dressing: Miracle Level Goalminimum assist (75% patients effort) Lower [...] Updated: 05-Nov-2022 09:56 by Marianna Hayes (OT) [facility] PT Evaluation v2-physical th erapyon 11-05-2022 PT Evaluation v2-physical therapy Rehab: Info: Mode of Treatmentphysical therapy Time IN07:45 Time OUT08:05 Patient in ... at end of sessionchair; alarm on Patient Effortgood Patient Profile Reviewedyes Onset of Illness/Injury or Date of Zsmtvzj84-Rmh-1168 Reason for ReferralSurgery 11.04.2022 L3-4 lateral interbody [...] Static (Balance)good balance Sitting, Dynamic (Balance)fair balance Btw-ru-Usalp (Balance)fair + Standing, Static (Balance)fair + Standing, [...] (PT Eval)2 times/day Predicted Duration of Therapy Cmkucqqpdgwm34 days Outcomes Tools: Turning from your back [...] in hosp (more content not included)... Normal [facility] Rehab Note-physical therapyo n 11-05-2022 Rehab Note-physical therapy Rehab: Info: Disciplinephysical director physical therapy Mode of Treatmentphysical therapy Time IN14:19 Time OUT14:44 Total Treatment [id number] Patient in ... at end of sessionbed, [...] Score18 Short Term Goals: Bed Mobility: Date Ljmccfnetmr60-Rzw-4517 Bed Mobility: Miracle Level Goalmodified independent; supine <> sidelying <> sitting Transfer: Established Oxet48-Brz-0375 Transfer: Transfer Type Ehqnpyi-dg-ppgxm/chair-to- bed; vrt-mx-mswea/huayw-xo-sam Transfer: Miracle Level Goalmodified independent Transfer: Assistive Device Goalrolling walker Gait: Established Diib31-Atq-3541 Gait: Miracle Level Goalmodified independent Gait: Assistive Device Goalrolling walker Gait: Distance Jaxp194' Education: Learnerpatient; family member Methodverbal Outcome Evaluation1=partially meets; needs review Education - Topicpt able to recall spinal precautions , Able to don and doff TLSO brace Outcome Summary: Progress: Physical Therapyprogress toward functional goals as expected Electronic Signatures: Kelsea Cueto (DISTRIBUTION SUPERINTENDENT) (Signed 05-Nov-2022 16:34) Authored: Info, Mobility/Tone, Sensory, Outcomes Tools, Short Term Goals, Education, Outcome Summary Daniela Scott (PT) (Signed 06-Nov-2022 03:32) Co-Signer: Info, Mobility/Tone, Sensory, Outcomes Tools, Short Term Goals, Education, Outcome Summary Last Updated: 06-Nov-2022 03:32 by Daniela Scott (PT) Normal [facility] Admission Risk Screen - Adul ton 11-04-2022 Admission Risk Screen - Adult Allergies: Intolerances: nitroglycerin: Unknown Patient Verification: New W ID Band Applied in my Departmentno Type of ID Patient is WearingW wristband, but not applied here Patient Transferred from Other Facility ([facility], [facility],etc)no Patient Identity Verified Bypatient [...] AlertFor Ebola-like Symptoms: Isolate Patient and Notify Provider/Hose Maker For Contact: Notify Provider/Hose Maker Advance Directive: Advance Directive/DNRyes Advance Directive typeLiving Will, Durable Power of Section Housekeeper for Healthcare Living Will AvailabilityLiving Will not available now Living Will Lwpqmwskk35-Efs-1796 Durable Power of Section Housekeeper AvailabilityDPOA not available now Durable Power of Section Housekeeper Spbsmtzev98-Tvf-7908 Durable Power of Section Housekeeper contact (name and number)Dana [phone] [place] Fall Screen: History of falling (immediate [...] instruction; skill demonstration Cultural Considerationsnone Developmental Considerationsnone Judaism Considerationsnone Learning Assessment (Other Learner): Other learner availableno Depression Screen: During the past month, have you often been bothered by feeling down, depressed or hopelessno During the past month, have you often had little interest or pleasure in doing thingsno Have you had any thoughts of harming anyone elseno [place] Suicide: Risk Screen Not Applicable/Able to Answerable to be screened In the Past Month: Have you wished you were or could go to sleep and not wake upno In the Past Month: Have you had any actual thoughts of killing yourselfno Lifetime: Have you ever done, started to do, or prepared to do anything to end your lifeno [place] Suicide Risknegative Adult Nutrition Screen: Have you [...] (frequency/quality)frequen t; (more content not included)... Normal [facility] Consult-General Internal Med sotero 11-04-2022 [...] nitroglycerin: Unknown Objective: Objective Information: T PRBPMAPSpO2 Value36.19698436/8528162% Date/Time11/04 15: 15: 15: 15: 15: 15:32 [...] to b (more content not included)... Normal [facility] Discharge Planning Tyzl4bp 0 11-04-2022 Discharge Planning Note2 Discharge Planning: Planned Dispositionhome Discharge Destinationhome [place] of Choice Explainedyes Anticipated Discharge Hanj10-Ool-0965 Discharge Planning 11/04/22 @ 1508 hours: Received [...] he is independent of ADLs and IADLs DISTRIBUTION SUPERINTENDENT and does not use AD. Drives. Pt plans to dc home. CT team will continue to monitor care progression and potential dc needs. Darya Jay RN TCC 11/06/22 0900 TCC UPDATE: [facility] score is PT (18) OT (16), [...] Jones RN TCC. Assessment: Discharge Planning Assessment Dgrp82-Mcn-4461 Primary Contact Name and NumberDale (brother) [phone] Lives Withsibling(s) Living Arrangementshouse PCPHoy Anticipated Transition [facility] Services Anticipated at Transitionnone InsuranceDevoted Anticipated Changes [...] 06-Nov-2022 15:26 by Sultana Jones (CLIN COOR) [facility] Order Reconciliationon 11-04 Order Reconciliation Page 1 Admission Reconciliation Document Reconciliation Type: Admission requested on behalf of Heidy Escobar (Advanced Practice Nurse) done by Heidy Escobar (DOOR CORE ASSEMBLER-[facility]) Admission - Partial Reconciliation: 04-Nov-2022 15:50 by: Heidy Escobar (DOOR CORE ASSEMBLER-[facility]) Admission - Reconciliation: 04-Nov-2022 15:50 by: Heidy Escobar ([facility]) Home MedicationsEnteredLast Dose TakenReconciled with current Order Reconciliation Comment/ Additional Information atorvastatin 40 mg oral tablet 1 tab(s) orally once a day (at bedtime) [id number]-1063 PM Atorvastatin Tablet (LIPITOR)DOSE = 40 mg Oral At Bedtimeatorvastatin 40 mg oral tablet continued as the inpatient order Atorvastatin baclofen 10 mg oral tablet 1 tab(s) orally once a vsh76-Qkg-435097-Vwx-3813 PM Reviewed and Held Eliquis 5 mg oral tablet 1 tab(s) orally 2 times a day---AWARE TO HOLD PRIOR TO PROCEDURE Reviewed and Held furosemide 20 mg oral tablet 1 tab(s) orally once a idn99-Huy-423290-Ziv-1500 AM Furosemide Tablet (LASIX)DOSE = 20 mg Oral Dailyfurosemide 20 mg oral tablet is continued and suspended as Furosemide lisinopril 20 mg oral tablet 1 tab(s) orally once a qwh45-Ijj-604063-Fay-7367 PM Lisinopril Tablet (PRINIVIL, ZESTRIL)DOSE = 20 mg Oral Dailylisinopril 20 mg oral tablet is continued and suspended as Lisinopril metoprolol tartrate 25 mg oral tablet 1 tab(s) orally 2 times a day---AWARE TO TAKE MORNING OF PROCEDUE WITH A SIP OF IGNCO01-Xbi-590647-Phu-702 3 02:30 AM Reviewed and Held Multiple Vitamins oral tablet 1 tab(s) orally once a hfd43-Kkq-543404-Nov-2022 AM Multivitamin with Minerals TabletDOSE = 1 tablet(s) Oral Daily Multiple Vitamins oral tablet continued as the inpatient order Multivitamin with Minerals nortriptyline 25 mg oral capsule orally once a pnn76-Yfd-479472-Wiy-6146 PM Nortriptyline Capsule (PAMELOR)DOSE = 25 mg [...] tab(s) orally 2 times a day, As Fblbnl44-Lif-606555-Ygd-10 23 Reviewed and Held Potassium Chloride (Qmt-Rbpv-Hez 10) 10 mEq oral tablet, extended release 1 tab(s) orally once a wwv28-Qsm-020508-Jsm-1880 PM Reviewed and Held Additional Current Orders [...] 12 HoursRecommended Infusion Time: 60 minute(s) Normal [facility] Radiologyon 11-04-2022 Fluoroscopy duration Please click on the link to view the study images Normal [facility] Work Phone: Established Visit (Orthopaed [...] instructions were (more content not included)... Normal InformedDNAworks APTTon 10-21-2022 aPTT Coag (Bld) [Time] 34 s Normal 27 - 38 [facility] Comment on above: Result Comment: Note new reference range as of 08/13/2022 at 10:00am. Performed By: #### A PTT #### [address] [id number] Activated Partial Thrombopla stin Timeon 10-21-2022 aPTT Coag (PPP) [Time] 34 s 27 - 38 -[facility] Work Phone: Comment on above: Note new reference r jana as of 08/13/2022 at 10:00am. CBC AND DIFFERENTIALon 10-21 % AUTOMATED IMMATURE GRAN 0.3 % Normal 0.0 - 0.9 [facility] Comment on above: Result Comment: Jovanna ture Granulocyte Count (IG) includes promyelocytes, myelocytes and metamyelocytes but does not include bands. Percent differential counts (%) should be interpreted in the context of the absolute cell counts (cells/L). Performed By: #### C BCDF #### [address] [id number] Basophils (Bld) [#/Vol] 0.11 10*3/uL High 0.00 - 0.10 [facility] Comment on above: Performed By: #### C BCDF #### [address] [id number] Basophils/100 WBC (Bld) 1.2 % Normal 0.0 - 2.0 [facility] Comment on above: Performed By: #### C BCDF #### [address] [id number] Eosinophils (Bld) [#/Vol] 0.21 10*3/uL Normal 0.00 - 0.70 [facility] Comment on above: Performed By: #### C BCDF #### [address] [id number] Eosinophils/100 WBC (Bld) 2.2 % Normal 0.0 - 6.0 [facility] Comment on above: Performed By: #### C BCDF #### [address] [id number] Erythrocyte distribution width (RBC) [Ratio] 13.5 % Normal 11.5 - 14.5 [facility] Comment on above: Performed By: #### C BCDF #### [address] [id number] Hematocrit (Bld) [Volume fraction] 44.9 % Normal 41.0 - 52.0 [facility] Comment on above: Performed By: #### C BCDF #### [address] [id number] Hemoglobin (Bld) [Mass/Vol] 14.8 g/dL Normal 13.5 - 17.5 [facility] Comment on above: Performed By: #### C BCDF #### [address] [id number] Lymphocytes (Bld) [#/Vol] 1.28 10*3/uL Normal 1.20 - 4.80 [facility] Comment on above: Performed By: #### C BCDF #### [address] [id number] Lymphocytes/100 WBC (Bld) 13.6 % Normal 13.0 - 44.0 [facility] Comment on above: Performed By: #### C BCDF #### [address] [id number] MCHC (RBC) [Mass/Vol] 33.0 g/dL Normal 32.0 - 36.0 [facility] Comment on above: Performed By: #### C BCDF #### [address] [id number] MCV (RBC) [Entitic vol] 94 fL Normal 80 - 100 [facility] Comment on above: Performed By: #### C BCDF #### [address] [id number] Monocytes (Bld) [#/Vol] 0.72 10*3/uL Normal 0.10 - 1.00 [facility] Comment on above: Performed By: #### C BCDF #### [address] [id number] Monocytes/100 WBC (Bld) 7.7 % Normal 2.0 - 10.0 [facility] Comment on above: Performed By: #### C BCDF #### [address] [id number] Neutrophils (Bld) [#/Vol] 7.04 10*3/uL Normal 1.20 - 7.70 [facility] Comment on above: Performed By: #### C BCDF #### [address] [id number] Neutrophils/100 WBC (Bld) 75.0 % Normal 40.0 - 80.0 [facility] Comment on above: Performed By: #### C BCDF #### [address] [id number] Platelets (Bld) [#/Vol] 251 10*3/uL Normal 150 - 450 [facility] Comment on above: Performed By: #### C BCDF #### [address] [id number] RBC 4.78 x10E12/L Normal 4.50 - 5.90 [facility] Comment on above: Performed By: #### C BCDF #### [address] [id number] WBC (Bld) [#/Vol] 9.4 10*3/uL Normal 4.4 - 11.3 [facility] Comment on above: Performed By: #### C BCDF #### [address] [id number] COMPREHENSIVE PANELon 2022 Albumin [Mass/Vol] 4.0 g/dL Normal 3.4 - 5.0 [facility] Comment on above: Performed By: #### C BC #### [address] [id number] ALP [Catalytic activity/Vol] 127 U/L Normal 33 - 136 [facility] Comment on above: Performed By: #### C BC #### [address] [id number] ALT [Catalytic activity/Vol] 16 U/L Normal 10 - 52 [facility] Comment on above: Result Comment: Becca ents treated with Sulfasalazine may generate falsely decreased results for ALT. Performed By: #### C BC #### [address] [id number] Anion gap [Moles/Vol] 12 mmol/L Normal 10 - 20 [facility] Comment on above: Performed By: #### C BC #### [address] [id number] AST [Catalytic activity/Vol] 21 U/L Normal 9 - 39 [facility] Comment on above: Performed By: #### C BC #### [address] [id number] Bilirubin [Mass/Vol] 0.6 mg/dL Normal 0.0 - 1.2 [facility] Comment on above: Performed By: #### C BC #### [address] [id number] Calcium [Mass/Vol] 9.3 mg/dL Normal 8.6 - 10.3 [facility] Comment on above: Performed By: #### C BC #### [address] [id number] Chloride [Moles/Vol] 103 mmol/L Normal 98 - 107 [facility] Comment on above: Performed By: #### C BC #### [address] [id number] Creatinine [Mass/Vol] 1.29 mg/dL Normal 0.50 - 1.30 [facility] Comment on above: Performed By: #### C BC #### [address] [id number] GFR/1.73 sq M.predicted among non-blacks MDRD (S/P/Bld) [Vol rate/Area] 61 mL/min/{1.73_m2} Normal >90 [facility] Comment on above: Result Comment: CALC ULATIONS OF ESTIMATED GFR ARE PERFORMED USING THE 2020 CKD-EPI STUDY REFIT EQUATION WITHOUT THE RACE VARIABLE FOR THE IDMS-TRACEABLE CREATININE METHODS. https://jasn.asnjournals.org/content//ASN.5510484 988 Performed By: #### C BC #### [address] [id number] Glucose [Mass/Vol] 103 mg/dL High 74 - 99 [facility] Comment on above: Performed By: #### C BC #### [address] [id number] HCO3 (Bld) [Moles/Vol] 27 mmol/L Normal 21 - 32 [facility] Comment on above: Performed By: #### C BC #### [address] [id number] Potassium [Moles/Vol] 3.8 mmol/L Normal 3.5 - 5.3 [facility] Comment on above: Performed By: #### C BC #### [address] [id number] Protein [Mass/Vol] 7.4 g/dL Normal 6.4 - 8.2 [facility] Comment on above: Performed By: #### C BC #### [address] [id number] Sodium [Moles/Vol] 138 mmol/L Normal 136 - 145 [facility] Comment on above: Performed By: #### C BC #### [address] [id number] Urea nitrogen [Mass/Vol] 11 mg/dL Normal 6 - 23 [facility] Comment on above: Performed By: #### C BC #### [address] [id number] Complete Blood Count + Diffe rentialon 10-21-2022 Basophils/100 WBC (Bld) 1.2 % 0.0 - 2.0 [facility] Work Phone: Erythrocyte distribution width (RBC) [Ratio] 13.5 % See Below [facility] Work Phone: Comment on above: Reference Range: 11. 5 - 14.5 Hematocrit (Bld) [Volume fraction] 44.9 % See Below [facility] [place] Work Phone: Comment on above: Reference Range: 41. 0 - 52.0 Hemoglobin (Bld) [Mass/Vol] 14.8 g/dL See Below [facility] [place] Work Phone: [phone] Comment on above: Reference Range: 13. 5 - 17.5 Lymphocytes/100 WBC (Bld) 13.6 % See Below [facility] [place] Work Phone: [phone] Comment on above: Reference Range: 13. 0 - 44.0 MCHC (RBC) [Mass/Vol] 33.0 g/dL See Below [facility] [place] Work Phone: [phone] Comment on above: Reference Range: 32. 0 - 36.0 MCV (RBC) [Entitic vol] 94 fL 80 - 100 [facility] Work Phone: [phone] Monocytes/100 WBC (Bld) 7.7 % 2.0 - 10.0 [facility] Work Phone: [phone] Neutrophils/100 WBC (Bld) 75.0 % See Below [facility] Work Phone: [phone] Comment on above: Reference Range: 40. 0 - 80.0 Platelets (Bld) [#/Vol] 251 10*3/uL 150 - 450 [facility] [place] Work Phone: [phone] RBC (Bld) [#/Vol] 4.78 {x10E12/L} See Below [facility] [place] Work Phone: [phone] Comment on above: Reference Range: 4.5 0 - 5.90 WBC (Bld) [#/Vol] 9.4 10*3/uL 4.4 - 11.3 [facility] [place] Work Phone: [phone] Complete Blood Count + Differential 0.11 {x10E9/L} above high threshold See Below [facility] [place] Work Phone: Comment on above: Reference Range: 0.0 0 - 0.10 Complete Blood Count + Differential 0.21 {x10E9/L} See Below [facility] Work Phone: Comment on above: Reference Range: 0.0 0 - 0.70 Complete Blood Count + Differential 0.72 {x10E9/L} See Below [facility] Work Phone: Comment on above: Reference Range: 0.1 0 - 1.00 Complete Blood Count + Differential 1.28 {x10E9/L} See Below [facility] Work Phone: Comment on above: Reference Range: 1.2 0 - 4.80 Complete Blood Count + Differential 7.04 {x10E9/L} See Below [facility] Work Phone: Comment on above: Reference Range: 1.2 0 - 7.70 Complete Blood Count + Differential 2.2 % 0.0 - 6.0 [facility] Work Phone: Complete Blood Count + Differential 0.3 % 0.0 - 0.9 [facility] Work Phone: Comment on above: Immature Granulocyte Count (IG) includes promyelocytes, myelocytes and metamyelocytes but does not include bands. Percent differential counts (%) should be interpreted in the context of the absolute cell counts (cells/L). Electrocardiogram 12 Leadon 10-21-2022 Electrocardiogram 12 Lead Ventricular Rate 64 Atrial Rate 64 P-R Interval 172 QRS Duration 84 Q-T Interval 398 QTC Calculation(Bazett) 410 P [place] 22 R [place] 17 T [place] 32 QRS Count 11 Q Onset 225 P Onset 139 P Offset 198 T Offset 424 QTC Fredericia 406 Diagnosis Class Borderline Normal Diagnosis Normal sinus rhythm Early transition Otherwise normal ECG No previous ECGs available Confirmed by Curtis Trejo ([id number]) on 10/24/2022 9:27:12 AM Normal [facility] Laboratory - Chemistry and C hemistry - challengeon 10-21-2022 Albumin BCP dye [Mass/Vol] 4.0 g/dL 3.4 - 5.0 [facility] Work Phone: [phone] ALP [Catalytic activity/Vol] 127 U/L 33 - 136 -[facility] Work Phone: [phone] ALT With P-5'-P [Catalytic activity/Vol] 16 U/L 10 - 52 [facility] Work Phone: [phone] Comment on above: Patients treated wit h Sulfasalazine may generate falsely decreased results for ALT. Anion gap [Moles/Vol] 12 mmol/L 10 - 20 -[facility] Work Phone: [phone] AST With P-5'-P [Catalytic activity/Vol] 21 U/L 9 - 39 -[facility] Work Phone: Bilirubin [Mass/Vol] 0.6 mg/dL 0.0 - 1.2 [facility] Work Phone: Calcium [Mass/Vol] 9.3 mg/dL 8.6 - 10.[address] [facility] Work Phone: Chloride [Moles/Vol] 103 mmol/L 98 - 107 [facility] Work Phone: [phone] CO2 [Moles/Vol] 27 mmol/L 21 - 32 [facility] Work Phone: [phone] Creatinine [Mass/Vol] 1.29 mg/dL See Below [facility] Work Phone: Comment on above: Reference Range: 0.5 0 - 1.30 Glucose [Mass/Vol] 103 mg/dL above high threshold 74 - 99 -[facility] Work Phone: Potassium [Moles/Vol] 3.8 mmol/L 3.5 - 5.3 [facility] Work Phone: [phone] Protein [Mass/Vol] 7.4 g/dL 6.4 - 8.2 [facility] Work Phone: [phone] Sodium [Moles/Vol] 138 mmol/L 136 - [address] [facility] [address] [facility] Work Phone: [phone] Urea nitrogen [Mass/Vol] 11 mg/dL 6 - 23 [facility] Work Phone: [phone] Laboratory - Coagulationon 0 10-21-2022 INR Coag (PPP) [Relative time] 1.4 {INR} above high threshold 0.9 - 1.1 [facility] Work Phone: [phone] PT Coag (PPP) [Time] 16.2 s above high threshold 9.8 - 12.8 [facility] Work Phone: [phone] Comment on above: Note new reference yrn bates as of 08/13/2022 at 10:00am. MRSA Screenon 10-21-2022 Staphylococcus sp identified Org specific cx Nom (Unsp spec) Abnormal [facility] Work Phone: [phone] Panel Informationon 10-21 [email or web address] ?RetrieveTestByDateTime?Keaton rmgmdVE=[email or web address]&Date=&Time=14%3a28%3a16% 3a00&TestType=ECG&Site=1&O utputType=PDF&Ext=PDF [facility] Work Phone: [phone] Normal sinus rhythm [facility] Work Phone: [phone] Borderline Normal [facility] Work Phone: -[facility] Work Phone: [phone] [facility] [place] Work Phone: [phone] [facility] [place] Work Phone: [phone] [facility] [place] Work Phone: [phone] [facility] [place] Work Phone: [phone] [facility] [place] Work Phone: [phone] [facility] [place] Work Phone: [phone] [facility] [place] Work Phone: [phone] [facility] [place] Work Phone: [phone] [facility] [place] Work Phone: [phone] [facility] [place] Work Phone: [phone] [facility] [place] Work Phone: [phone] [facility] [place] Work Phone: [phone] [facility] [place] Work Phone: [phone] {mL/min/1.73m2} >[address] [facility] [place] Work Phone: [phone] Comment on above: CALCULATIONS OF MEGAN MATED GFR ARE PERFORMED USING THE 2020 CKD-EPI STUDY REFIT EQUATION WITHOUT THE RACE VARIABLE FOR THE IDMS-TRACEABLE CREATININE METHODS.https://jasn.asnjournals.org/content/early//ASN .0932032428 PT/INRon 10-21-2022 PT Coag (PPP) [Time] 16.2 s High 9.8 - 12.8 [facility] Comment on above: Result Comment: Note new reference range as of 08/13/2022 at 10:00am. Performed By: #### P TINR #### [address] [id number] PT, INR 1.4 High 0.9 - 1.1 [facility] Comment on above: Performed By: #### P TINR #### [facility] [address] [place], [place] [id number] Patient Profile - Preop v3on 10-21-2022 Patient Profile - Preop v3 Patient Profile - Preop: Initial Info: Patient DemographicsName: ERIK MORALES Date: 1955 Address: [address] [place] [address] Date/Time [id number] 13:33 Primary Phone [phone] Instructions Givenappropriate clothing, bring responsible adult as the motor vehicle escort driver (procedure may be cancelled if no motor vehicle escort driver), center location, insurance information Prep Instructions Reviewedyes Prep TypeCHG wipes Instructed to Have No Fluids AfterNPO after midnight How to be AddressedGarry Spoken Language PreferredEnglish Source of Informationpatient Stated Reason for AdmissionBack surgery Primary Contact Name and NumberJose Carlos (brother) [phone] Other Contact Names and NumbersDerick Garsia (friend) [phone] Limitations on Visitors/Phone Callsnone Medications Brought to Hospital[facility] General Health: Weight in kg90.4 kilogram(s) Weight in ade004.2 pound(s) Weight Methodactual (measured) Scale Typestanding Height [...] CommentsLives with brother Resource/Environmental Concernsnone Anticipated Transition Tobayside Services Anticipated at Transitionnone Tobacco Use: Tobacco Useno former cigar smoker, quit 15 years ago Pre-op Checklist: Arrival [id number] Arrival Time09:25 Procedure TypeL2-3, L3-4 LAMINECTOMY, L3-4 INSTRUMENTATION, L2-3, L3-4 POSTERIOR LATERAL FUSION, L3-4LATERAL LUMBAR INTERBODY FUSION NPOyes Last Food [id number] 18:30 Last Clear Fluid [id number] 19:00 ID Band On Patientpatient ID (name), falls risk Consent Signedyes H&P Completeyes Anesthesia Assessment Completedpending EKG Performedsee results tab Chest X-Ray Performednot ordered Preop Antibioticssent to OR Beta-sushant Last Dose Date/Fhph88-[id number]-0126 02:30 Glucose Resultn/a Type and Screen Resultedn/a [...] 04-Nov-2022 05:56 by Moira Marsh (SANTI) Normal [facility] STAPH/MRSA SCREENon 10-22-19 STAPH/MRSA SCREEN PATIENT: ERIK MORALES LOCATION: [facility] BILL#: [id number] : 55 AGE: SEX: M ORDERED BY: CURTIS MELÉNDEZ SOURCE: MISC COLLECTED: 10/21/22 14:18 ANTIBIOTICS AT TEDDY.: RECEIVED : 10/21/22 21:56 SITE: R E S U L T S STAPH/MRSA SCREEN FINAL 10/23/22 12:12 ISOLATE1 : Staphylococcus aureus METHICILLIN SENSITIVE STAPHYLOCOCCUS AUREUS (MSSA) Normal [facility] Comment on above: Performed By: #### S TAPH #### [facility] [address] [place] [address] URINALYSIS WITH CULTURE IF I NDICATEDon 10-21-2022 Appearance (U) CLEAR Normal CLEAR [facility] Comment on above: Performed By: #### U ARFX #### [address] [id number] Bilirubin Ql (U) Negative Normal NEGATIVE [facility] Comment on above: Performed By: #### U ARFX #### [address] [id number] Color (U) YELLOW Normal STRAW,YELLO W [facility] Comment on above: Performed By: #### U ARFX #### [address] [id number] Glucose Ql (U) Negative Normal NEGATIVE [facility] Comment on above: Performed By: #### U ARFX #### [address] [id number] Hemoglobin Ql (U) Negative Normal NEGATIVE [facility] Comment on above: Performed By: #### U ARFX #### [address] [id number] Ketones Ql (U) Negative Normal NEGATIVE [facility] Comment on above: Performed By: #### U ARFX #### [address] [id number] Leukocyte esterase Test strip Ql (U) Negative Normal NEGATIVE [facility] Comment on above: Performed By: #### U ARFX #### [address] [id number] Nitrite Ql (U) Negative Normal NEGATIVE [facility] Comment on above: Performed By: #### U ARFX #### [address] [id number] pH (U) 6.0 [pH] Normal 5.0 - 8.0 [facility] Comment on above: Performed By: #### U ARFX #### [address] [id number] Protein Ql (U) Negative Normal NEGATIVE [facility] Comment on above: Performed By: #### U ARFX #### [address] [id number] Specific gravity (U) [Rel density] 1.010 Normal 1.005 - 1.035 [facility] Comment on above: Performed By: #### U ARFX #### [address] [id number] Urobilinogen (U) [Mass/Vol] mg/dL Normal 0.0 - 1.9 [facility] Comment on above: Performed By: #### U ARFX #### [address] [id number] Color (U) YELLOW See Below -[facility] Work Phone: Comment on above: Reference Range: STR AW,YELLOW Glucose Ql (U) Negative NEGATIVE -[facility] Work Phone: Ketones Ql (U) Negative NEGATIVE [facility] Work Phone: Leukocyte esterase Test strip Ql (U) Negative NEGATIVE -[facility] [employer] Phone: pH (U) 6.0 [pH] 5.0 - 8.0 -[facility] Work Phone: Protein (U) [Mass/Vol] Negative NEGATIVE -[facility] Work Phone: [phone] RBC (U) [#/Vol] Negative NEGATIVE -[facility] Work Phone: Specific gravity (U) [Rel density] 1.010 1 See Below -[facility] [employer] Phone: Comment on above: Reference Range: 1.0 05 - 1.035 URINALYSIS WITH CULTURE IF INDICATED Negative NEGATIVE -[facility] [employer] Phone: URINALYSIS WITH CULTURE IF INDICATED <2.0 0.0 - 1.9 -[facility] [employer] Phone: URINALYSIS WITH CULTURE IF INDICATED CLEAR CLEAR -[facility] [employer] Phone: Established Visit (Orthopaed ic Surgery)on 09-19-2022 Established Visit (Orthopaedic Surgery) Orders Back pain, Other intervertebral disc degeneration, lumbar region [place] [facility]; Status:Need Information - Financial Authorization; Requested for:[id number]; Osteogenesic Stimulator; Status:Active; Requested for:[id number]; Provider Impressions Assessment: At this time, I [...] Normal [facility] 08-23-2022 Initial Visit (Orthopaedic Surgery) [...] plates and the interbody cage is a [place] cage. He currently has stenosis at L2-L3 [...] thoracic and lumbar xrays and MRI in [place]. brought a disc. History of Present IllnessErik [...] to the pain management center down in [place]. Review of Systems Review of systems, past [...] XR Lumbar spine AP and Lateral Normal [facility] Work Phone: SPINE, LUMBOSACRAL 2 OR 3 EWSon 08-23-2022 SPINE, LUMBOSACRAL 2 OR 3 VIEWS Patient Name: ERIK MORALES STUDY: SPINE, LUMBOSACRAL; 2 OR 3 VIEWS; ; 08/23/2022 1:37 pm INDICATION: pain M51.36: Other intervertebral disc degeneration, lumbar region M54.9: Back pain. ACCESSION NUMBER(S): [id number] ORDERING CLINICIAN: CURTIS MELÉNDEZ FINDINGS: Flexion-extension x-rays [...] Electronically signed by: CURTIS MELÉNDEZ MD Normal [facility]ASC LAB Abdominal Aorta/Nancy ac/IVC Ultraon 07-31-2022 VASC LAB Abdominal Aorta/Iliac/IVC Ultra [address], [address] [place] [address] Vascular Lab Report Abdominal Aorta Iliac Ultrasound/IVC Ultrasound Patient Name: ERIK Mckoy Physician: [id number] VICKEY Sparks MD [facility] Study Date: 07/31/2022 Referring CECILIO GO Physician: MRN/PID: [id number] PCP: Carmen Witt Accession/Order#: [id number] CC Report to: Date of : 1955 Technologist: Karol Hull RD, T Gender: M Technologist 2: Admission Status: Outpatient Location Performed: [facility] Diagnosis/ICD: I71.43-Infrarenal abdominal aortic aneurysm, without rupture Indication: HTN, Hyperlipidemia, Obesity, Former Smoker, Dyspnea, Pulmonary Fibrosis Procedure/CPT: 67959 Duplex Aorta/IVC/Iliac/Bypass Graft-[id number] CONCLUSIONS: Aorta/Common Iliac Arteries/IVC: Infrarenal fusiform abdominal [...] Proximal 0.71 cm 0.96 cm 0.96 cm/s [id number] Cecilio Go MD, [facility] Final Normal [facility] LAB Abdominal Aorta/Nancy ac/IVC Ultrasoundon 07-31-2022 VASC LAB Abdominal Aorta/Iliac/IVC Ultrasound [facility] [address] DO Work Phone: [...] IRAIS LORENZANA Date: 2022-07-02 13:50 Normal [facility] Office Visit (Cardiology)on 06-04-2022 Follow-up [...] Weight Tips; Status:Complete - Retrospective Authorization; Done: [id number] Some eating tips that can help you lose weight.; Status:Complete - Retrospective Authorization; Done: [id number] SocHx: Former smoker Tobacco Use Screening; Status:Complete; Done: [id number] Patient Instructions Please bring all medicines, vitamins, [...] rashes. Neurologic (more content not included)... Normal [facility] Tobacco Screening.on 023 Adult depression screening assessment No [facility] [place] [address] DO Work Phone: Fall risk assessment a) No falls within the last year [facility] [place] [address] DO Work Phone: Tobacco use status CPHS b) No [facility] [place] [address] DO Work Phone: CREATININEon 02-18-2022 Creatinine [Mass/Vol] 1.23 mg/dL Normal 0.70-1.30 [facility] Comment on above: Performed By: #### E RUR #### [facility] [address] [place] [address] Dr. Arielle Biswas EGFR-AF MALAYSIAN >60 Normal >=60 The [facility] Comment on above: Performed By: #### E RUR #### [facility] [address] [place], [place] [address] Dr. Arielle Biswas EGFR-NON AF MALAYSIAN 59 mL/min/1.73m2 Critically low >=60 [facility] Comment on above: Performed By: #### E RUR #### [facility] [address] [place] [id number] Arielle Biswas CT CHEST W CONon [...] BRITANY TSANG Date: 2022-02-18 15:28 Normal [facility] Office Visit (Cardiology)on 12-11-2021 Follow-up [...] Weight Tips; Status:Complete - Retrospective Authorization; Done: [id number] Some eating tips that can help you lose weight.; Status:Complete - Retrospective Authorization; Done: [id number] SocHx: Former smoker Tobacco Use Screening; Status:Complete; Done: [id number] Patient Instructions Please bring all medicines, vitamins, [...] pulmonary embolism. Recently follow-up CT scan at [facility] revealed resolution of the pulmonary emboli. Some other pathology was noted with densities requiring follow-up imaging in 3 to 6 months which has been arranged through his PCP. He is currently anticoagulated with Eliquis. The patient is contemplating further dental work in December which he should be able to hold anticoagulation prior to. Recent nuclear stress test at [facility] was reviewed and shared with the patient and was normal. He is also known to have normal ejection fraction. He currently has no complaint to report physical examination was only remarkable for 8 pounds weight gain from last visit. He is now in the obesity range recent medical record from [facility] were reviewed with the patient [...] palpitations, but (more content not included)... Normal [facility] Tobacco Screening.on Fall risk assessment a) No falls within the last year -[facility] [address] DO Work Phone: Tobacco use status CPHS b) No [facility] [address] DO Work Phone: Tobacco Screening. Yes [facility] [address] DO Work Phone: CTA [...] by: BRITANY TSANG Date: 2021-11-05 11:08 Normal [facility] NM STRESS/REST MULTIon 10-17 NM STRESS/REST MULTI Patient: ERIK MORALES Exam Date: 10/17/2021 : 1955 Gender:M Ordering : DR CARMEN WITT . Admission #: [id number] Family : Order #: [id number] CLICK HERE TO VIEW EXAM RADIOLOGY REPORT [...] M.D. on 10/17/2021 at 13:48 Normal [facility] T4, T3U, FTI LABCORPon 10-10 Free Thyroxine Index 2.1 Normal 1.2-4.9 [facility] Comment on above: Performed By: #### E RUR #### [facility] [address] [place] [address] Dr. Arielle Biswas T3 Uptake 28 % Normal 24-39 [facility] Comment on above: Performed By: #### E RUR #### [facility] [address] [place] [address] Dr. Arielle Biswas T4 [Mass/Vol] 7.5 ug/dL Normal 4.5-12.0 [facility] Comment on above: Performed By: #### E RUR #### [facility] [address] [place] [address] Dr. Arielle Biswas BNPon 10-09-2021 Natriuretic peptide B (Bld) [Mass/Vol] 319.0 pg/mL Normal <=900.0 [facility] Comment on above: Performed By: #### B VOLUNTEER RECRUITER, TSH, CMP #### [facility] [address] [place] [address] Dr. Arielle Biswas CBC AUTO DIFFon 10-09-2021 BASO # 0.1 103/ul Normal 0.0-0.1 [facility] Comment on above: Performed By: #### C BC #### [facility] [address] [place] [address] Dr. Arielle Biswas Basophils/100 WBC (Bld) 1.3 % Normal 0.2-2.0 [facility] Comment on above: Performed By: #### C BC #### [facility] [address] [place] [address] Dr. Arielle Biswas EO # 0.2 103/ul Normal 0.0-0.7 [facility] Comment on above: Performed By: #### C BC #### [facility] [address] [place] [address] Dr. Arielle Biswas Eosinophils/100 WBC (Bld) 3.0 % Normal 0.9-7.0 [facility] Comment on above: Performed By: #### C BC #### [facility] [address] [place] [address] Dr. Arielle Biswas Erythrocyte distribution width (RBC) [Ratio] 13.5 % Normal 11.0-15.0 [facility] Comment on above: Performed By: #### C BC #### [facility] [address] [place] [address] Dr. Arielle Biswas Hematocrit (Bld) [Volume fraction] 41.8 % Critically low 42.0-54.0 [facility] Comment on above: Performed By: #### C BC #### [facility] [address] [place] [address] Dr. Arielle Biswas Hemoglobin (Bld) [Mass/Vol] 13.6 g/dL Critically low 14.0-18.0 [facility] Comment on above: Performed By: #### C BC #### [facility] [address] [place] [address] Dr. Arielle Biswas IG # 0.03 10e3/ul Normal 0.00-0.03 [facility] Comment on above: Performed By: #### C BC #### [facility] [address] [place] [address] Dr. Arielle Biswas IG % 0.4 % Normal 0.0-0.5 [facility] Comment on above: Performed By: #### C BC #### [facility] [address] [place] [address] Dr. Arielle Biswas LYMPH # 1.2 103/ul Normal 1.2-3.8 [facility] Comment on above: Performed By: #### C BC #### [facility] [address] [place] [address] Dr. Arielle Biswas Lymphocytes/100 WBC (Bld) 16.5 % Critically low 20.5-60.0 [facility] Comment on above: Performed By: #### C BC #### [facility] [address] [place] [address] Dr. Arielle Biswas MANUAL DIFF REQ NO Normal [facility] Comment on above: Performed By: #### C BC #### [facility] [address] [place] [address] Dr. Arielle Biswas MCH (RBC) [Entitic mass] 31.2 pg Normal 25.9-34.0 [facility] Comment on above: Performed By: #### C BC #### [facility] [address] [place] [address] Dr. Arielle Biswas MCHC (RBC) [Mass/Vol] 32.5 g/dL Normal 29.9-35.2 [facility] Comment on above: Performed By: #### C BC #### [facility] [address] [place] [address] Dr. Arielle Biswas MCV (RBC) [Entitic vol] 95.9 fL Critically high 80.0-94.0 [facility] Comment on above: Performed By: #### C BC #### [facility] [address] [place] [address] Dr. Arielle Biswas MONO # 0.8 103/ul Normal 0.3-0.8 [facility] Comment on above: Performed By: #### C BC #### [facility] [address] [place] [address] Dr. Arielle Biswas Monocytes/100 WBC (Bld) 11.5 % Normal 1.7-12.0 [facility] Comment on above: Performed By: #### C BC #### [facility] [address] [place] [address] Dr. Arielle Biswas NEUT # 4.7 103/ul Normal 1.4-6.5 [facility] Comment on above: Performed By: #### C BC #### [facility] [address] [place] [address] Dr. Arielle Biswas Neutrophils/100 WBC (Bld) 67.3 % Normal 43.0-75.0 [facility] Comment on above: Performed By: #### C BC #### [facility] [address] [place] [address] Dr. Arielle Biswas Platelet mean volume (Bld) [Entitic vol] 10.2 fL Normal 9.5-13.5 [facility] Comment on above: Performed By: #### C BC #### [facility] [address] [place] [address] Dr. Arielle Biswas PLT 243 103/ul Normal 150-450 [facility] Comment on above: Performed By: #### C BC #### [facility] [address] [place] [address] Dr. Arielle Biswas RBC 4.36 106/ul Critically low 4.70-6.10 [facility] Comment on above: Performed By: #### C BC #### [facility] [address] [place] [address] Dr. Arielle Biswas WBC 7.0 103/ul Normal 4.0-11.0 [facility] Comment on above: Performed By: #### C BC #### [facility] [address] [place] [address] Dr. Arielle Biswas D-DIMERon 10-09-2021 D-DIMER 0.30 mg/L FEU Normal <=0.59 [facility] Comment on above: Performed By: #### E RUR #### [facility] [address] [place] [address] Dr. Arielle Biswas D-DIMER COMMENTS SEE BELOW Normal [facility] Comment on above: Result Comment: Incr [...] hospitalization. Performed By: #### E RUR #### [facility] [address] [place] [address] Dr. Arielle Biswas PROF 14(COMP METB)on 022 Albumin [Mass/Vol] 3.0 g/dL Critically low 3.4-5.0 [facility] Comment on above: Performed By: #### B VOLUNTEER RECRUITER, TSH, CMP #### [facility] [address] [place] [address] Dr. Arielle Biswas Albumin/Globulin [Mass ratio] 0.8 {ratio} Normal [facility] Comment on above: Performed By: #### B VOLUNTEER RECRUITER, TSH, CMP #### [facility] [address] [place] [address] Dr. Arielle Biswas ALP [Catalytic activity/Vol] 120 U/L Critically high 46-116 [facility] Comment on above: Performed By: #### B VOLUNTEER RECRUITER, TSH, CMP #### [facility] [address] [address] [address] Arielle Biswas ALT [Catalytic activity/Vol] 21 U/L Normal 16-63 [facility] Comment on above: Performed By: #### B VOLUNTEER RECRUITER, TSH, CMP #### [facility] [address] [address] [address] Arielle Biswas Anion gap [Moles/Vol] 9.9 mmol/L Normal [facility] Comment on above: Performed By: #### B VOLUNTEER RECRUITER, TSH, CMP #### [facility] [address] [place] [address] Dr. Arielle Biswas AST [Catalytic activity/Vol] 20 U/L Normal 15-37 [facility] Comment on above: Performed By: #### B VOLUNTEER RECRUITER, TSH, CMP #### [facility] [address] [place] [address] Dr. Arielle Biswas Bilirubin [Mass/Vol] 0.6 mg/dL Normal 0.2-1.0 [facility] Comment on above: Performed By: #### B VOLUNTEER RECRUITER, TSH, CMP #### [facility] [address] [place] [address] Dr. Arielle Biswas Calcium [Mass/Vol] 8.8 mg/dL Normal 8.5-10.1 [facility] Comment on above: Performed By: #### B VOLUNTEER RECRUITER, TSH, CMP #### [facility] [address] [place] [address] Dr. Arielle Biswas Chloride [Moles/Vol] 103 mmol/L Normal 98-107 [facility] Comment on above: Performed By: #### B VOLUNTEER RECRUITER, TSH, CMP #### [facility] [address] [place] [address] Dr. Arielle Biswas CO2 [Moles/Vol] 29.0 mmol/L Normal 21.0-32.[address] [facility] Comment on above: Performed By: #### B VOLUNTEER RECRUITER, TSH, CMP #### [facility] [address] [address] [address] Arielle Biswas Creatinine [Mass/Vol] 1.23 mg/dL Normal 0.70-1.30 [facility] Comment on above: Performed By: #### B VOLUNTEER RECRUITER, TSH, CMP #### [facility] [address] [address] [address] Arielle Biswas EGFR-AF MALAYSIAN >60 Normal >=60 [facility] Comment on above: Performed By: #### B VOLUNTEER RECRUITER, TSH, CMP #### [facility] [address] [address] [address] Arielle Biswas EGFR-NON AF MALAYSIAN 59 mL/min/1.73m2 Critically low >=60 [facility] Comment on above: Performed By: #### B VOLUNTEER RECRUITER, TSH, CMP #### [facility] [address] [place] [address] Dr. Arielle Biswas Globulin (S) [Mass/Vol] 3.7 g/dL Normal [facility] Comment on above: Performed By: #### B VOLUNTEER RECRUITER, TSH, CMP #### [facility] [address] [address] [address] Arielle Biswas Glucose [Mass/Vol] 95 mg/dL Normal 74-106 [facility] Comment on above: Performed By: #### B VOLUNTEER RECRUITER, TSH, CMP #### [facility] [address] [place] [address] Dr. Arielle Biswas Potassium [Moles/Vol] 3.9 mmol/L Normal 3.5-5.1 [facility] Comment on above: Performed By: #### B VOLUNTEER RECRUITER, TSH, CMP #### [facility] [address] [address] [address] Arielle Biswas Protein [Mass/Vol] 6.7 g/dL Normal 6.4-8.2 [facility] Comment on above: Performed By: #### B VOLUNTEER RECRUITER, TSH, CMP #### [facility] [address] [address] [address] Arielle Biswas Sodium [Moles/Vol] 138 mmol/L Normal 136-145 [facility] Comment on above: Performed By: #### B VOLUNTEER RECRUITER, TSH, CMP #### [facility] [address] [address] [address] Arielle Biswas Urea nitrogen [Mass/Vol] 13.0 mg/dL Normal 7.0-18.0 [facility] Comment on above: Performed By: #### B VOLUNTEER RECRUITER, TSH, CMP #### [facility] [address] [address] [address] Arielle Biswas Urea nitrogen/Creatinine [Mass ratio] 10.6 mg/mg Normal [facility] Comment on above: Performed By: #### B VOLUNTEER RECRUITER, TSH, CMP #### [facility] [address] [address] [address] Arielle Biswas TSHon 10-09-2021 TSH 0.393 uIU/mL Normal 0.358-3.740 [facility] Comment on above: Performed By: #### B VOLUNTEER RECRUITER, TSH, CMP #### [facility] [address] [place] [address] Dr. Arielle Biswas Tobacco Screening.on 022 Adult depression screening assessment No [facility] [address] [place] Work Phone: Fall risk assessment a) No falls within the last year [facility] [address] [place] Work Phone: Tobacco use status [facility] b) No [facility] [address] [place] Work Phone: CARDIAC DAVON 3-6on 2 CK [Catalytic activity/Vol] 80 U/L Normal 39-308 [facility] Comment on above: Performed By: #### E RUR #### [facility] [address] [place] [address] Dr. Arielle Biswas CK.MB [Mass/Vol] 2.19 ng/mL Normal <=3.60 [facility] Comment on above: Performed By: #### E RUR #### [facility] [address] [place] [address] Dr. Arielle Biswas HSTROP 152.1 pg/mL Critically high 4.0-76.1 [facility] Comment on above: Result Comment: CUT- OFF POINTS HAVE BEEN ESTABLISHED BASED ON THE FOURTH UNIVERSAL DEFINITIONS OF MYOCARDIAL INFARCTION. THE UPPER REFERENCE LIMIT (URL) OF TROPONIN, DEFINED THE 99TH PERCENTILE OF cTnI DISTRIBUTION IN A REFERENCE POPULATION, HAS BEEN CONFIRMED THE DECISION THRESHOLD FOR [place] DIAGNOSIS. repeated Performed By: #### E RUR #### [facility] [address] [place] [address] Dr. Arielle Biswas CARDIAC DAVON ADMITon 022 CK [Catalytic activity/Vol] 32 U/L Critically low 39-308 [facility] Comment on above: Performed By: #### B FRANKLYN, MANJULADM #### [facility] [address] [place] [address] Dr. Arielle Biswas CK.MB [Mass/Vol] 2.01 ng/mL Normal <=3.60 [facility] Comment on above: Performed By: #### B FRANKLYN, AMANDA #### [facility] [address] [place] [address] Dr. Arielle Biswas HSTROP 144.5 pg/mL Critically high 4.0-76.1 [facility] Comment on above: Result Comment: CUT- OFF POINTS HAVE BEEN ESTABLISHED BASED ON THE FOURTH UNIVERSAL DEFINITIONS OF MYOCARDIAL INFARCTION. THE UPPER REFERENCE LIMIT (URL) OF TROPONIN, DEFINED THE 99TH PERCENTILE OF cTnI DISTRIBUTION IN A REFERENCE POPULATION, HAS BEEN CONFIRMED THE DECISION THRESHOLD FOR [place] DIAGNOSIS. repeated Performed By: #### B FRANKLYN, AMANDA #### [facility] [address] [place] [address] Dr. Arielle Biswas PJ 39 ng/mL Normal 16-96 [facility] Comment on above: Performed By: #### B FRANKLYN, MANJULADM #### [facility] [address] [place] [address] Dr. Arielle Biswas CBC AUTO DIFFon 07-14-2021 BASO # 0.1 103/ul Normal 0.0-0.1 [facility] Comment on above: Performed By: #### E RUR #### [facility] [address] [place] [address] Dr. Arielle Biswas Basophils/100 WBC (Bld) 0.5 % Normal 0.2-2.0 [facility] Comment on above: Performed By: #### E RUR #### [facility] [address] [address] [address] Arielle Biswas EO # 0.1 103/ul Normal 0.0-0.7 [facility] Comment on above: Performed By: #### E RUR #### [facility] [address] [place] [address] Dr. Arielle Biswas Eosinophils/100 WBC (Bld) 0.6 % Critically low 0.9-7.0 [facility] Comment on above: Performed By: #### E RUR #### [facility] [address] [place] [address] Dr. Arielle Biswas Erythrocyte distribution width (RBC) [Ratio] 14.6 % Normal 11.0-15.0 [facility] Comment on above: Performed By: #### E RUR #### [facility] [address] [place] [address] Dr. Arielle Biswas Hematocrit (Bld) [Volume fraction] 45.5 % Normal 42.0-54.0 [facility] Comment on above: Performed By: #### E RUR #### [facility] [address] [place] [address] Dr. Arielle Biswas Hemoglobin (Bld) [Mass/Vol] 14.5 g/dL Normal 14.0-18.0 [facility] Comment on above: Performed By: #### E RUR #### [facility] [address] [place] [address] Dr. Arielle Biswas IG # 0.13 10e3/ul Critically high 0.00-0.03 [facility] Comment on above: Performed By: #### E RUR #### [facility] [address] [place] [address] Dr. Arielle Biswas IG % 0.8 % Critically high 0.0-0.5 [facility] Comment on above: Performed By: #### E RUR #### [facility] [address] [place] [address] Dr. Arielle Biswas LYMPH # 1.4 103/ul Normal 1.2-3.8 [facility] Comment on above: Performed By: #### E RUR #### [facility] [address] [address] [address] Arielle Biswas Lymphocytes/100 WBC (Bld) 8.7 % Critically low 20.5-60.0 [facility] Comment on above: Performed By: #### E RUR #### [facility] [address] [address] [address] Arielle Biswas MANUAL DIFF REQ NO Normal [facility] Comment on above: Performed By: #### E RUR #### [facility] [address] [address] [address] Arielle Biswas MCH (RBC) [Entitic mass] 30.5 pg Normal 25.9-34.0 [facility] Comment on above: Performed By: #### E RUR #### [facility] [address] [place] [address] Dr. Arielle Biswas MCHC (RBC) [Mass/Vol] 31.9 g/dL Normal 29.9-35.2 [facility] Comment on above: Performed By: #### E RUR #### [facility] [address] [address] [address] Arielle Biswas MCV (RBC) [Entitic vol] 95.6 fL Critically high 80.0-94.0 [facility] Comment on above: Performed By: #### E RUR #### [facility] [address] [place] [address] Dr. Arielle Biswas MONO # 1.1 103/ul Critically high 0.3-0.8 [facility] Comment on above: Performed By: #### E RUR #### [facility] [address] [place] [address] Dr. Arielle Biswas Monocytes/100 WBC (Bld) 7.1 % Normal 1.7-12.0 [facility] Comment on above: Performed By: #### E RUR #### [facility] [address] [address] [address] Arielle Biswas NEUT # 12.9 103/ul Critically high 1.4-6.5 [facility] Comment on above: Performed By: #### E RUR #### [facility] [address] [address] [address] Arielle Biswas Neutrophils/100 WBC (Bld) 82.3 % Critically high 43.0-75.0 [facility] Comment on above: Performed By: #### E RUR #### [facility] [address] [address] [address] Arielle Biswas Platelet mean volume (Bld) [Entitic vol] 9.7 fL Normal 9.5-13.5 [facility] Comment on above: Performed By: #### E RUR #### [facility] [address] [address] [address] Arielle Biswas PLT 206 103/ul Normal 150-450 [facility] Comment on above: Performed By: #### E RUR #### [facility] [address] [address] [address] Arielle Biswas RBC 4.76 106/ul Normal 4.70-6.10 [facility] Comment on above: Performed By: #### E RUR #### [facility] [address] [id number] Arielle Biswas WBC 15.6 103/ul Critically high 4.0-11.0 [facility] Comment on above: Performed By: #### E RUR #### [facility] [address] [place] [address] Dr. Arielle Biswas CTA CHEST WO W [...] H (more content not included)... Normal [facility] Covid-19 PCR ([facility])on 06-25 SARS-CoV-2 (COVID-19) RNA ELKIN+probe Ql (Unsp spec) Not detected Normal NOT DETECTED [facility] Comment on above: Result Comment: When diagnostic testing is negative, the possibility of a false negative should be considered in the context of a patient's recent exposures and the presence of clinical signs and symptoms consistent with SARS-CoV-2. This test is not yet approved or cleared by the [place] Food and Drug Administration (FDA). This test was developed by [employer], [place], [place]. The performance characteristics of this test were validated by [facility]. The results are not intended to be used as the sole means for clinical diagnosis or patient management decisions. [facility] is authorized under Clinical Laboratory [...] for this test is supported by the [place] of Health and Human Service's declaration that [...] used). Performed By: #### E RUR #### [facility] [address] [place] [address] Dr. Arielle Biswas ER URINE PROFILEon 2 Bilirubin Ql (U) Negative Normal NEGATIVE [facility] Comment on above: Performed By: #### E RUR #### [facility] [address] [place] [address] Dr. Arielle Biswas Clarity (U) CLEAR Normal CLEAR [facility] Comment on above: Performed By: #### E RUR #### [facility] [address] [place] [address] Dr. Arielle Biswas Color (U) LT. YELLOW Normal YELLOW [facility] Comment on above: Performed By: #### E RUR #### [facility] [address] [place] [address] Dr. Arielle Biswas ERUAHD A micrscopic examina tion will be performed if indicated. Normal [facility] Comment on above: Performed By: #### E RUR #### [facility] [address] [address] [address] Arielle Biswas Glucose Ql (U) Negative Normal NEGATIVE [facility] Comment on above: Performed By: #### E RUR #### [facility] [address] [place] [address] Dr. Arielle Biswas Hemoglobin Ql (U) Negative Normal NEGATIVE [facility] Comment on above: Performed By: #### E RUR #### [facility] [address] [place] [address] Dr. Arielle Biswas Ketones Ql (U) Negative Normal NEGATIVE [facility] Comment on above: Performed By: #### E RUR #### [facility] [address] [place] [address] Dr. Arielle Biswas LEUKOCYTES Negative Normal NEGATIVE [facility] Comment on above: Performed By: #### E RUR #### [facility] [address] [place] [address] Dr. Arielle Biswas Nitrite Ql (U) Negative Normal NEGATIVE [facility] Comment on above: Performed By: #### E RUR #### [facility] [address] [place] [address] Dr. Arielle Biswas pH (U) 6.0 [pH] Normal 5-9 [facility] Comment on above: Performed By: #### E RUR #### [facility] [address] [place] [address] Dr. Arielle Biswas SPEC GRAVITY 1.005 Normal 1.005-<=1.0 25 [facility] Comment on above: Performed By: #### E RUR #### [facility] [address] [place] [address] Dr. Arielle Biswas UA PROTEIN Negative Normal NEGATIVE/ TRACE [facility] Comment on above: Performed By: #### E RUR #### [facility] [address] [place] [address] Dr. Arielle Biswas UR MICRO IND NOT INDICATED Normal [facility] Comment on above: Performed By: #### E RUR #### [facility] [address] [place] [address] Dr. Arielle Biswas Urobilinogen Qn (U) 0.2 {Fernando'U}/dL Normal 0.2 - 1. 0 [facility] Comment on above: Performed By: #### E RUR #### [facility] [address] [place] [address] Dr. Arielle Biswas LACTATE/LACTIC ACIDon 2021 Lactate [Moles/Vol] 3.0 mmol/L Critically high 0.4-1.9 [facility] Comment on above: Result Comment: repe ated Performed By: #### E RUR #### [facility] [address] [place] [address] Dr. Arielle Biswas PROF CHEM 8 (BAS METB)on Anion gap [Moles/Vol] 14.0 mmol/L Normal [facility] Comment on above: Performed By: #### B AMANDA ESTES #### [facility] [address] [place] [address] Dr. Arielle Biswas Calcium [Mass/Vol] 8.9 mg/dL Normal 8.5-10.1 [facility] Comment on above: Performed By: #### AMANDA Lindsay MP #### [facility] [address] [place] [address] Dr. Arielle Biswas Chloride [Moles/Vol] 96 mmol/L Critically low 98-107 [facility] Comment on above: Performed By: #### B AMANDA ESTES #### [facility] [address] [place] [address] Dr. Arielle Biswas CO2 [Moles/Vol] 26.5 mmol/L Normal 21.0-32.0 [facility] Comment on above: Performed By: #### AMANDA Lindsay MP #### [facility] [address] [place] [address] Dr. Arielle Biswas Creatinine [Mass/Vol] 1.43 mg/dL Critically high 0.70-1.30 [facility] Comment on above: Performed By: #### AMANDA Lindsay MP #### [facility] [address] [address] [address] Arielle Biswas EGFR-AF MALAYSIAN 60 mL/min/1.73m2 Normal >=60 [facility] Comment on above: Performed By: #### B FRANKLYN, CMADM #### [facility] [address] [address] [address] Arielle Biswas EGFR-NON AF MALAYSIAN 50 mL/min/1.73m2 Critically low >=60 [facility] Comment on above: Performed By: #### B FRANKLYN, CMADM #### [facility] [address] [address] [address] Arielle Biswas Glucose [Mass/Vol] 122 mg/dL Critically high 74-106 T [facility] Comment on above: Performed By: #### B FRANKLYN, CMADM #### [facility] [address] [place] [address] Dr. Arielle Biswas Potassium [Moles/Vol] 3.5 mmol/L Normal 3.5-5.1 [facility] Comment on above: Performed By: #### B FRANKLYN, CMADM #### [facility] [address] [place] [address] Dr. Arielle Biswas Sodium [Moles/Vol] 133 mmol/L Critically low 136-145 [facility] Comment on above: Performed By: #### B FRANKLYN, CMADM #### [facility] [address] [place] [address] Dr. Arielle Biswas Urea nitrogen [Mass/Vol] 12.0 mg/dL Normal 7.0-18.0 [facility] Comment on above: Performed By: #### B FRANKLYN, CMADM #### [facility] [address] [place] [address] Dr. Arielle Biswas Urea nitrogen/Creatinine [Mass ratio] 8.4 mg/mg Normal [facility] Comment on above: Performed By: #### B FRANKLYN, CMADM #### [facility] [address] [place] [address] Dr. Arielle Biswas PROTIMEon 07-14-2021 INR Coag (PPP) [Relative time] 0.99 {INR} Normal [facility] Comment on above: Performed By: #### P TT, PT #### [facility] [address] [address] [address] Arielle Biswas INR GUIDELINES SEE BELOW Normal [facility] Comment on above: Result Comment: YANG RED INR: 2.0 - 3.0 CONDITIONS NOT LISTED BELOW 2.5 - 3.5 FOR PROSTHETIC HEART VALVE REPLACEMENT 2.5 - 3.5 RECURRENT THROMBOSIS Performed By: #### P TT, PT #### [facility] [address] [address] [address] Arielle Biswas PT Coag (PPP) [Time] 10.7 s Normal 9.0-11.6 [facility] Comment on above: Performed By: #### P TT, PT #### [facility] [address] [place] [address] Dr. Arielle Biswas PTTon 07-14-2021 aPTT Coag (Bld) [Time] 26.6 s Normal 22.3-36.2 [facility] Comment on above: Performed By: #### P TT, PT #### [facility] [address] [place] [address] Dr. Arielle Biswas Tobacco Screening.on Fall risk assessment a) No falls within the last year [facility] [place] [address] [place] Work Phone: Tobacco use status [facility] b) No [facility] [place] [address] [place] Work Phone: Tobacco Screening. Yes [facility] [address] [place] Work Phone: [phone] Tobacco Screening.on Fall risk assessment a) No falls within the last year [facility] [place] [address] [place] Work Phone: Tobacco use status [facility] b) No [facility] [place] [address] DO Work Phone: [phone] Tobacco Screening.on 021 Fall risk assessment a) No falls within the last year [facility] [address] [place] Work Phone: Tobacco use status [facility] b) No [facility] [place] [address] DO Work Phone: Vital Signs Date Time Vital Sign Value Performing Clinician Facility 01-08-2024 10:04-0500 Body height 175.3 cm Cecilio Go MD Work Phone: [facility] 01-08-2024 10:04-0500 Body mass index (BMI) [Ratio] 30.72 kg/m2 Cecilio Go MD Work Phone: [facility] 01-08-2024 10:04-0500 Body weight 94.35 kg Cecilio Go MD Work Phone: [facility] 01-08-2024 10:04-0500 Diastolic blood pressure 82 mm[Hg] Cecilio Go MD Work Phone: [facility] 01-08-2024 10:04-0500 Heart rate 60 /min Cecilio Go MD Work Phone: [facility] 01-08-2024 10:04-0500 Systolic blood pressure 120 mm[Hg] Cecilio Go MD Work Phone: [facility] 11-17-2023 10:20-0400 Body height 175.26 cm MD Carmen Witt Work Phone: [facility] 11-17-2023 10:20-0400 Body mass index (BMI) [Ratio] 30.4 kg/m2 MD Carmen Witt Work Phone: [facility] 11-17-2023 10:20-0400 Body temperature 97.4 [degF] MD Carmen Witt Work Phone: [facility] 11-17-2023 10:20-0400 Body weight 93.44 kg MD Carmen Witt Work Phone: [facility] 11-17-2023 10:20-0400 Diastolic blood pressure 83 mm[Hg] MD Carmen Witt Work Phone: [facility] 11-17-2023 10:20-0400 Heart rate 69 /min MD Carmen Witt Work Phone: [facility] 11-17-2023 10:20-0400 Respiratory rate 20 /min MD Carmen Witt Work Phone: [facility] 11-17-2023 10:20-0400 SaO2% (BldA) [Mass fraction] 95 % MD Camren Witt Work Phone: [facility] 11-17-2023 10:20-0400 Systolic blood pressure 164 mm[Hg] MD Carmen Witt Work Phone: [facility] 08-21-2023 11:11-0400 Body height 175.26 cm MD Carmen Witt Work Phone: [facility] 08-21-2023 11:11-0400 Body mass index (BMI) [Ratio] 29.9 kg/m2 MD Carmen Witt Work Phone: [facility] 08-21-2023 11:11-0400 Body temperature 96.1 [degF] MD Carmen Witt Work Phone: [facility] 08-21-2023 11:11-0400 Body weight 92.07 kg MD Carmen Witt Work Phone: [facility] 08-21-2023 11:11-0400 Diastolic blood pressure 80 mm[Hg] MD Carmen Witt Work Phone: [facility] 08-21-2023 11:11-0400 Heart rate 77 /min MD Carmen Witt Work Phone: [facility] 08-21-2023 11:11-0400 SaO2% (BldA) [Mass fraction] 97 % MD Carmen Witt Work Phone: [facility] 08-21-2023 11:11-0400 Systolic blood pressure 140 mm[Hg] MD Carmen Witt Work Phone: [facility] 04-09-2023 10:04-0500 Body height 175.26 cm MD Jean Nicholson Work Phone: [facility] 04-09-2023 10:04-0500 Body mass index (BMI) [Ratio] 29.9 kg/m2 MD Jean Nicholson Work Phone: [facility] 04-09-2023 10:04-0500 Body temperature 96.7 [degF] MD Jean Nicholson Work Phone: [facility] 04-09-2023 10:04-0500 Body weight 92.07 kg MD Jean Nicholson Work Phone: [facility] 04-09-2023 10:04-0500 Diastolic blood pressure 93 mm[Hg] MD Jean Nicholson Work Phone: [facility] 04-09-2023 10:04-0500 Heart rate 98 /min MD Jean Nicholson Work Phone: [facility] 04-09-2023 10:04-0500 Respiratory rate 20 /min MD Jean Nicholson Work Phone: [facility] 04-09-2023 10:04-0500 SaO2% (BldA) [Mass fraction] 100 % MD Jean Nicholson Work Phone: [facility] 04-09-2023 10:04-0500 Systolic blood pressure 152 mm[Hg] MD Jean Nicholson Work Phone: [facility] 12-23-2022 10:50-0400 Blood Pressure Location Marino SPEAR [facility] 12-23-2022 10:50-0400 Diastolic blood pressure 62 mm[Hg] Marino SPEAR [facility] 12-23-2022 10:50-0400 Heart rate 69 /min Marino SPEAR [facility] 12-23-2022 10:50-0400 Respiratory rate 16 /min Marino SPEAR [facility] 12-23-2022 10:50-0400 Systolic blood pressure 95 mm[Hg] Marino SPEAR [facility] 11-07-2022 10:56-0400 Body temperature 98.6 [degF] Carmen Hoy Other Phone: [facility] 11-07-2022 10:56-0400 Diastolic blood pressure 69 mm[Hg] Carmen Hoy Other Phone: [facility] 11-07-2022 10:56-0400 Heart rate 97 /min Carmen Hoy Other Phone: [facility] 11-07-2022 10:56-0400 Respiratory rate 16 /min Carmen Hoy Other Phone: [facility] 11-07-2022 10:56-0400 SaO2% (BldA) [Mass fraction] 96 % Carmen Hoy Other Phone: [facility] 11-07-2022 10:56-0400 Systolic blood pressure 113 mm[Hg] Carmen Hoy Other Phone: [facility] 10-30-2022 10:00-0400 Body height 175.26 cm Danna Violeta Other [facility] [employer] Other 10-30-2022 10:00-0400 Body mass index (BMI) [Ratio] 30.27 kg/m2 Danna Violeta Other [employer] Other 10-30-2022 10:00-0400 Body temperature 97 [degF] Danna Violeta Other [facility] [employer] Other 10-30-2022 10:00-0400 Body weight 92.99 kg Danna Violeta Other [employer] Other 10-30-2022 10:00-0400 Diastolic blood pressure 75 mm[Hg] Danna Violeta Other [employer] Other 10-30-2022 10:00-0400 Respiratory rate 20 /min Danna Violeta Other [employer] Other 10-30-2022 10:00-0400 SaO2% (BldA) [Mass fraction] 96 % Danna Violeta Other [employer] Other 10-30-2022 10:00-0400 Systolic blood pressure 116 mm[Hg] Danna Violeta Other [employer] Other 08-23-2022 12:57-0400 Body height 175.26 cm Carmen Preeti Hoy Work Phone: [facility] [place] Work Phone: 08-23-2022 12:57-0400 Body mass index (BMI) [Ratio] 30.57 kg/m2 Carmen M Hoy Work Phone: [facility] [place] Work Phone: 08-23-2022 12:57-0400 Body surface area Derived from formula 2.1 m2 Carmen M Hoy Work Phone: [facility] [place] Work Phone: 08-23-2022 12:57-0400 Body weight 93.9 kg Carmen M Hoy Work Phone: [facility] [place] Work Phone: 08-20-2022 11:30-0400 Body height 175.26 cm Danna Violeta Other [employer] Other 08-20-2022 11:30-0400 Body mass index (BMI) [Ratio] 30.42 kg/m2 Danna Violeta Other [employer] Other 08-20-2022 11:30-0400 Body temperature 96.8 [degF] Danna Violeta Other [employer] Other 08-20-2022 11:30-0400 Body weight 93.44 kg Danna Violeta Other [employer] Other 08-20-2022 11:30-0400 Diastolic blood pressure 80 mm[Hg] Danna Violeta Other [employer] Other 08-20-2022 11:30-0400 Respiratory rate 20 /min Danna Violeta Other [employer] Other 08-20-2022 11:30-0400 SaO2% (BldA) [Mass fraction] 97 % Danna Violeta Other [employer] Other 08-20-2022 11:30-0400 Systolic blood pressure 142 mm[Hg] Danna Violeta Other [employer] Other 08-15-2022 09:30-0400 Body height 175.26 cm Bianka Garcia Other [employer] Other 08-15-2022 09:30-0400 Body mass index (BMI) [Ratio] 30.57 kg/m2 Bianka Garcia Other [employer] Other 08-15-2022 09:30-0400 Body temperature 96.7 [degF] Bianka Garcia Other [employer] Other 08-15-2022 09:30-0400 Body weight 93.9 kg Bianka Garcia Other [facility] [employer] Other 08-15-2022 09:30-0400 Diastolic blood pressure 70 mm[Hg] Bianka Garcia Other [facility] [employer] Other 08-15-2022 09:30-0400 SaO2% (BldA) [Mass fraction] 98 % Bianka Garcia Other [facility] [employer] Other 08-15-2022 09:30-0400 Systolic blood pressure 118 mm[Hg] Bianka Garcia Other [facility] [employer] Other 06-04-2022 11:33-0400 Body height 175.26 cm Carmen Zumpery Work Phone: [facility] [employer] [employer] DO Work Phone: 06-04-2022 11:33-0400 Body mass index (BMI) [Ratio] 30.13 kg/m2 Carmen [employer] Hoy Work Phone: [facility] [employer] 250 DO Work Phone: 06-04-2022 11:33-0400 Body surface area Derived from formula 2.08 m2 Carmen [employer] Hoy Work Phone: [facility] 250 DO Work Phone: 06-04-2022 11:33-0400 Body weight 92.53 kg Carmen M Hoy Work Phone: [facility] 250 DO Work Phone: 06-04-2022 11:33-0400 Diastolic blood pressure 72 mm[Hg] Carmen M Hoy Work Phone: [facility] 250 DO Work Phone: 06-04-2022 11:33-0400 Heart rate 68 /min Carmen Álvarez Hoy Work Phone: [facility] [employer] 250 DO Work Phone: 06-04-2022 11:33-0400 Systolic blood pressure 110 mm[Hg] Carmen Álvarez Hoy Work Phone: [facility] [employer] 250 DO Work Phone: 02-05-2022 15:30-0500 Body height 175.26 cm Danna Violeta Other [employer] Other 02-05-2022 15:30-0500 Body mass index (BMI) [Ratio] 29.97 kg/m2 Danna Violeta Other [employer] Other 02-05-2022 15:30-0500 Body temperature 98.4 [degF] Danna Violeta Other [employer] Other 02-05-2022 15:30-0500 Body weight 92.08 kg Danna Violeta Other [employer] Other 02-05-2022 15:30-0500 Diastolic blood pressure 83 mm[Hg] Danna Violeta Other [employer] Other 02-05-2022 15:30-0500 Respiratory rate 20 /min Danna Violeta Other [employer] Other 02-05-2022 15:30-0500 SaO2% (BldA) [Mass fraction] 96 % Danna Violeta Other [employer] Other 02-05-2022 15:30-0500 Systolic blood pressure 143 mm[Hg] Danna Violeta Other [employer] Other 12-11-2021 11:39-0400 Body height 175.26 cm Jean Saeed Naderer Work Phone: [facility] [employer] 250 DO Work Phone: 12-11-2021 11:39-0400 Body mass index (BMI) [Ratio] 30.72 kg/m2 Jean Christophe Naderer Work Phone: [facility] 250 DO Work Phone: 12-11-2021 11:39-0400 Body surface area Derived from formula 2.1 m2 Jean Christophe Naderer Work Phone: [facility] 250 DO Work Phone: 12-11-2021 11:39-0400 Body weight 94.35 kg Jean Saeed Naderer Work Phone: [facility] 250 DO Work Phone: 12-11-2021 11:39-0400 Diastolic blood pressure 72 mm[Hg] Jean Saeed Naderer Work Phone: [facility] [employer] 250 DO Work Phone: 12-11-2021 11:39-0400 Heart rate 72 /min Jean Christophe Naderer Work Phone: [facility] 250 DO Work Phone: 12-11-2021 11:39-0400 Systolic blood pressure 124 mm[Hg] Jean Saeed Naderer Work Phone: [facility] 250 DO Work Phone: 08-21-2021 15:00-0400 Body height 175.26 cm Danna Mcdaniel Other [employer] Other 08-21-2021 15:00-0400 Body mass index (BMI) [Ratio] 28.35 kg/m2 Danna Violeta Other [employer] Other 08-21-2021 15:00-0400 Body temperature 97.5 [degF] Danna Violeta Other [employer] Other 08-21-2021 15:00-0400 Body weight 87.09 kg Danna Violeta Other [employer] Other 08-21-2021 15:00-0400 Diastolic blood pressure 70 mm[Hg] Danna Violeta Other [employer] Other 08-21-2021 15:00-0400 Respiratory rate 20 /min Danna Violeta Other [employer] Other 08-21-2021 15:00-0400 SaO2% (BldA) [Mass fraction] 94 % Danna Violeta Other [employer] Other 08-21-2021 15:00-0400 Systolic blood pressure 110 mm[Hg] Danna Violeta Other [employer] Other 08-15-2021 11:30-0400 Body height 175.26 cm Julian Matthews Other [employer] Other 08-15-2021 11:30-0400 Body mass index (BMI) [Ratio] 28.06 kg/m2 Julian Matthews Other [employer] Other 08-15-2021 11:30-0400 Body temperature 97.5 [degF] Julian Matthews Other [employer] Other 08-15-2021 11:30-0400 Body weight 86.18 kg Julian Matthews Other [employer] Other 08-15-2021 11:30-0400 Diastolic blood pressure 68 mm[Hg] Julian Matthews Other [employer] Other 08-15-2021 11:30-0400 SaO2% (BldA) [Mass fraction] 98 % Julian Byron Other [employer] Other 08-15-2021 11:30-0400 Systolic blood pressure 102 mm[Hg] Julian Byron Other [employer] Other 08-02-2021 08:32-0400 Body height 175.26 cm Jean Saeed Naderer Work Phone: [employer] DO Work Phone: 08-02-2021 08:32-0400 Body mass index (BMI) [Ratio] 28.8 kg/m2 Jean Saeed Naderer Work Phone: [employer] DO Work Phone: 08-02-2021 08:32-0400 Body surface area Derived from formula 2.04 m2 Jean Saeed Naderer Work Phone: [facility] [employer] DO Work Phone: 08-02-2021 08:32-0400 Body weight 88.45 kg Jean A Naderer Work Phone: [employer] DO Work Phone: 08-02-2021 08:32-0400 Diastolic blood pressure 62 mm[Hg] Jean Saeed Naderer Work Phone: [facility] [employer] DO Work Phone: 08-02-2021 08:32-0400 Heart rate 68 /min Jean Saeed Naderer Work Phone: [facility] 250 DO Work Phone: 08-02-2021 08:32-0400 Systolic blood pressure 108 mm[Hg] Jean Saeed Naderer Work Phone: [facility] 250 DO Work Phone: 07-14-2021 00:00-0400 60 1 Jean Saeed Naderer Work Phone: [facility] 250 DO Work Phone: Comment on above: [id number] 04-30-2021 13:22-0500 Body height 175.26 cm Jean Saeed Naderer Work Phone: [facility] 250 DO Work Phone: 04-30-2021 13:22-0500 Body mass index (BMI) [Ratio] 29.45 kg/m2 Jean Saeed Naderer Work Phone: [facility] 250 DO Work Phone: 04-30-2021 13:22-0500 Body surface area Derived from formula 2.06 m2 Jean Saeed Naderer Work Phone: [facility] 250 DO Work Phone: 04-30-2021 13:22-0500 Body weight 90.45 kg Jean Saeed Naderer Work Phone: [facility] 250 DO Work Phone: 04-30-2021 13:22-0500 Diastolic blood pressure 90 mm[Hg] Jean Saeed Naderer Work Phone: [facility] 250 DO Work Phone: 04-30-2021 13:22-0500 Heart rate 69 /min Jean Saeed Naderer Work Phone: [facility] 250 DO Work Phone: 04-30-2021 13:22-0500 Systolic blood pressure 134 mm[Hg] Jean Saeed Naderer Work Phone: [facility] 250 DO Work Phone: 02-20-2021 14:06-0500 Body height 175.26 cm Jean Saeed Naderer Work Phone: [facility] 250 DO Work Phone: 02-20-2021 14:06-0500 Body mass index (BMI) [Ratio] 29.98 kg/m2 Jean Saeed Naderer Work Phone: [facility] 250 DO Work Phone: 02-20-2021 14:06-0500 Body surface area Derived from formula 2.08 m2 Jean Saeed Naderer Work Phone: [facility] 250 DO Work Phone: 02-20-2021 14:06-0500 Body weight 92.08 kg Jean Saeed Naderer Work Phone: [facility] 250 DO Work Phone: 02-20-2021 14:06-0500 Diastolic blood pressure 76 mm[Hg] Jean Saeed Naderer Work Phone: [facility] 250 DO Work Phone: 02-20-2021 14:06-0500 Heart rate 80 /min Jean Saeed Naderer Work Phone: [facility] 250 DO Work Phone: 02-20-2021 14:06-0500 Systolic blood pressure 110 mm[Hg] Jean Saeed Naderer Work Phone: [facility] 250 DO Work Phone: 02-06-2021 16:10-0500 Diastolic blood pressure 84 mm[Hg] Jean Saeed Naderer Work Phone: [facility] 250 DO Work Phone: 02-06-2021 16:10-0500 Systolic blood pressure 130 mm[Hg] Jean A Naderer Work Phone: [facility] 250 DO Work Phone: 02-06-2021 15:37-0500 Body height 175.26 cm Jean A Naderer Work Phone: [facility] 250 DO Work Phone: 02-06-2021 15:37-0500 Body mass index (BMI) [Ratio] 30.13 kg/m2 Jean A Naderer Work Phone: [facility] [employer] 250 DO Work Phone: 02-06-2021 15:37-0500 Body surface area Derived from formula 2.08 m2 Jean Saeed Naderer Work Phone: [facility] 250 DO Work Phone: 02-06-2021 15:37-0500 Body weight 92.53 kg Jean Saeed Naderer Work Phone: [facility] 250 DO Work Phone: 02-06-2021 15:37-0500 Diastolic blood pressure 90 mm[Hg] Jean A Naderer Work Phone: [facility] 250 DO Work Phone: 02-06-2021 15:37-0500 Heart rate 125 /min Jean A Naderer Work Phone: [facility] 250 DO Work Phone: 02-06-2021 15:37-0500 Systolic blood pressure 128 mm[Hg] Jean A Naderer Work Phone: [facility] 250 DO Work Phone: 11-30-2020 11:30-0400 Body height 175.26 cm Danna Violeta Other [employer] Other 11-30-2020 11:30-0400 Body mass index (BMI) [Ratio] 29.68 kg/m2 Danna Violeta Other [employer] Other 11-30-2020 11:30-0400 Body weight 91.17 kg Danna Violeta Other [employer] Other 11-30-2020 11:30-0400 Diastolic blood pressure 83 mm[Hg] Danna Violeta Other [employer] Other 11-30-2020 11:30-0400 Respiratory rate 20 /min Danna Violeta Other [employer] Other 11-30-2020 11:30-0400 SaO2% (BldA) [Mass fraction] 98 % Danna Violeta Other [employer] Other 11-30-2020 11:30-0400 Systolic blood pressure 126 mm[Hg] Danna Violeta Other [employer] Other Encounters Encounter Date Encounter Type Care Provider Facility Start: 01-08-2024 End: 01-08-2024 Office outpatient visit 25 minutes Cecilio Go MD Work Phone: [facility] Comment on above: Essential hypertensi on; Mitral valve insufficiency, unspecified etiology; Pulmonary fibrosis (Multi); Pulmonary embolism, unspecified chronicity, unspecified pulmonary embolism type, unspecified whether acute cor pulmonale present (Multi); Mixed hyperlipidemia; Abdominal aortic aneurysm (AAA) without rupture, unspecified part ([facility]); Lung crackles; Class 1 obesity due to excess calories without serious comorbidity with body mass index (BMI) of 30.0 to 30.9 in adult Start: 12-26-2023 ambulatory Marino Calabrese RAINER [place] ty:[facility] [place] Start: 11-17-2023 End: 11-17-2023 ambulatory MD Carmen Witt Work Phone: [facility] Work Phone: Start: 11-17-2023 End: 11-17-2023 Patient encounter procedure MD Carmen Witt Work Phone: [facility] Work Phone: Start: 11-11-2023 End: 11-11-2023 ambulatory [facility] Start: 09-22-2023 End: 09-22-2023 ambulatory Maribell Leigh MD Facility: [facility] Start: 08-21-2023 End: 08-21-2023 ambulatory MD Carmen Witt Work Phone: [facility] Work Phone: Start: 08-21-2023 End: 08-21-2023 Patient encounter procedure MD Carmen Witt Work Phone: [facility] Work Phone: Start: 06-03-2023 End: 06-03-2023 Office outpatient visit 15 minutes Curtis Meléndez MD Work Phone: [facility] Comment on above: Low back pain, unspe cified back pain laterality, unspecified chronicity, unspecified whether sciatica present (Primary Dx); Lumbar pain Start: 06-03-2023 End: 06-03-2023 Subsequent hospital visit by physician Serene Shetty X-Ray 2 [facility] Comment on above: Lumbar pain Start: 06-03-2023 End: 06-03-2023 ambulatory [facility] Start: 05-19-2023 End: 05-19-2023 ambulatory Andregla Leigh MD Facility: [facility] Start: 04-14-2023 End: 04-14-2023 Patient encounter procedure MD Jean Nicholson Work Phone: [facility] [place] Work Phone: Start: 04-14-2023 End: 04-14-2023 ambulatory MD Jean Nicholson Work Phone: [facility] Work Phone: Start: 04-09-2023 End: 04-09-2023 ambulatory MD Jean Nicholson Work Phone: [facility] Work Phone: Start: 04-09-2023 End: 04-09-2023 Patient encounter procedure MD Jean Nicholson Work Phone: [facility] Work Phone: Start: 04-07-2023 End: 04-07-2023 ambulatory Maribell Leigh MD Facility: [facility] Start: 03-24-2023 End: 03-24-2023 ambulatory Maribell Leigh MD Facility:[facility] Start: 03-04-2023 End: 03-04-2023 Patient encounter procedure MD Jean Nicholson Work Phone: [facility]-Respiratory Therapy Work Phone: Start: 03-04-2023 End: 03-04-2023 ambulatory MD Jean Nicholson Work Phone: [facility] Work Phone: Start: 02-28-2023 End: 02-28-2023 Office outpatient visit 15 minutes Curtis Meléndez MD Work Phone: [facility] Comment on above: Low back pain, unspe cified back pain laterality, unspecified chronicity, unspecified whether sciatica present (Primary Dx) Start: 02-28-2023 End: 02-28-2023 ambulatory CURTIS MELÉNDEZ [facility] Start: 12-23-2022 End: 12-24-2022 ambulatory Marino SPEAR Facility:[facility] Start: 12-23-2022 End: 12-23-2022 Patient encounter procedure Marino Calabrese [facility] [place] Start: 12-09-2022 End: 12-09-2022 ambulatory [facility] Ambulatory Start: 11-19-2022 Patient encounter procedure Carmen Álvarez Millicent Work Phone: [facility] Work Phone: Start: 11-19-[address] Curtis Meléndez Facility:[id number] Start: 11-04-2022 End: 11-07-2022 Evaluation and management of inpatient [place] [id number] [facility] [address] [id number] Start: 10-30-2022 End: 10-30-2022 ambulatory Danna Violeta Other [employer] Other Start: 10-30-2022 Office outpatient vi sit 25 minutes Danna Violeta [facility] Start: 10-22-2022 Patient encounter procedure Carmen Álvarez Millicent Work Phone: [facility] Work Phone: Start: 10-22-[address] Curtis Meléndez Facility:[id number] Start: 10-22-2022 Encounter for other preprocedural examination Dr. Curtis Meléndez [facility] Start: 10-21-[address] Carmen Witt Facility:[id number] Start: 10-21-2022 Encounter for preprocedural cardiovascular examination Dr. Curtis Meléndez [facility] Start: 10-21-2022 Encounter for preprocedural laboratory examination Dr. Curtis Meléndez [facility] Start: 09-19-2022 Patient encounter procedure Carmen Preeti Witt Work Phone: [facility] Work Phone: Start: 09-19-[address] Carmen Witt Facility:[id number] Start: 08-23-2022 Chart Update Carmen Witt Work Phone: [facility] [place] Work Phone: Start: 08-23-2022 Patient encounter procedure Carmen Witt Work Phone: [facility] Work Phone: Start: 08-23-[address] Carmen Witt Facility:[id number] Start: 08-20-2022 End: 08-20-2022 ambulatory Danna Violeta Other [facility] [employer] Other Start: 08-20-2022 Office outpatient vi sit 25 minutes Danna Violeta [facility] Start: 08-15-2022 End: 08-15-2022 Patient encounter procedure Bianka Rosszhang [facility] Start: 08-15-2022 End: 08-15-2022 ambulatory MD Jean Nicholson Work Phone: [facility] [employer] Other Start: 07-31-2022 Chart Update Carmen Witt Work Phone: [facility] 250 DO Work Phone: Start: 07-31-[address] Cecilio Go Facility:[id number] Start: 07-02-2022 End: 07-03-[address] IRAIS LORENZANA Facility:[facility] Start: 06-05-2022 AUDIT Carmen Witt Work Phone: [facility] Work Phone: Start: 06-04-2022 Patient encounter procedure Carmen Witt Work Phone: [facility] 250 DO Work Phone: Start: 06-04-[address] Carmen Witt Facility: Start: 05-09-2022 End: 05-10-2022 ambulatory LAUREN BAUMANN . Facility:[facility] Start: 04-19-2022 Rx Renewal Jean Nicholson Work Phone: [facility] 250 DO Work Phone: Start: 02-18-2022 End: 02-19-[address] BRITANY TSANG Facility:[facility] Start: 02-07-2022 End: 02-08-2022 ambulatory LAUREN BAUMANN . Facility:[facility] Start: 02-05-2022 End: 02-05-2022 ambulatory Danna Violeta Other [facility] [employer] Other Start: 02-05-2022 Office outpatient vi sit 25 minutes Danna Violeta [facility] Start: 12-20-2021 End: 12-21-[address] MARINO SPEAR . Facility:[facility] Start: 12-11-2021 Office outpatient vi sit 25 minutes Jean Nicholson Work Phone: [facility] 250 DO Work Phone: Start: 12-11-[address] Jean Nicholson Facility: Start: 11-27-2021 End: 11-28-[address] LORENA ANDERSON . Facility:[facility] Start: 11-27-2021 Rx Renewal [facility] Work Phone: Start: 11-05-2021 End: 11-06-[address] BRITANY TSANG Facility:[facility] Start: 10-17-2021 End: 10-18-[address] CARMEN WITT . Facility:[facility] Start: 10-12-2021 Rx Renewal [facility] Work Phone: Start: 10-09-2021 End: 10-10-2021 ambulatory KATHERINE MARTINEZ Facility:[facility] Start: 08-30-2021 End: 08-31-2021 ambulatory LAUREN BAUMANN . Facility:[facility] Start: 08-21-2021 End: 08-21-2021 ambulatory Danna Violeta Other [employer] Other Start: 08-21-2021 Office outpatient vi sit 25 minutes Danna Violeta [facility] Start: 08-16-2021 End: 08-16-2021 ambulatory Bianka Rossarelissrinivasan Other [employer] Other Start: 08-16-2021 Telephone encounter Bianka Rosszhang [facility] Start: 08-15-2021 End: 08-15-2021 ambulatory Julian Matthews Other [employer] Other Start: 08-15-2021 Office outpatient vi sit 25 minutes Julian Matthews [facility] Start: 08-02-2021 Office outpatient vi sit 25 minutes Jean A Naderer Work Phone: [facility] [employer] 250 DO Work Phone: Start: 07-20-2021 End: 07-20-2021 ambulatory Bianka Garcia Other [employer] Other Start: 07-20-2021 Telephone encounter Bianka [facility] Start: 07-14-2021 End: 07-14-2021 ambulatory CYNDI SIBLEY Facility:H1 Start: 04-30-2021 Office outpatient vi sit 25 minutes Jean A Naderer Work Phone: [facility] [employer] 250 DO Work Phone: Start: 03-26-2021 Rx Renewal Jean A Naderer Work Phone: [facility] 250 DO Work Phone: Start: 02-20-2021 Patient encounter procedure Jean A Naderer Work Phone: [facility] 250 DO Work Phone: Start: 11-30-2020 Office outpatient vi sit 25 minutes Danna Violeta [facility] Pulmonary [facility] Procedures Date Procedure Procedure Detail Performing Clinician Start: 08-21-2023 US scan of aorta MD Mckeon meliton Gloriabecca Work Phone: Start: 06-03-2023 XR LUMBAR SPINE 2-3 VIEWS CURTIS MELÉNDEZ Start: 06-03-2023 Radex spine lumbosac ral 2/3 views Curtis Meléndez MD Work Phone: Start: 02-28-2023 XR LUMBAR SPINE 2-3 VIEWS CURTIS MELÉNDEZ Start: 11-04-2022 Lumbar spinal fusion Keaton SPEAR Start: 12-20-2021 PSA screening LAUREN Olmstead Comment on above: Performed By: #### P SAD #### [facility] [address] [place] [address] Dr. Arielle Biswas Start: 07-14-2021 Operation for pulmon brian embolism Marino SPEAR Start: 03-21-2016 Radical prostatectomy P marino SPEAR Start: 01-15-2016 Cystoscopy Marino BATISTA Start: 01-15-2016 Transrectal biopsy o f prostate using ultrasound guidance Marino SPEAR Colonoscopy Jean A Nadereyrn Work Phone: Comment on above: Feb 2017; Colonoscopy Marino SPEAR Extraction of cataract Mario SPEAR Operation on lung Jean A Nad erer Work Phone: Operative procedure on ankle Jean A Naderer Work Phone: Operative procedure on spinal structure Jean A Naderer Work Phone: Procedure on neck Jean A Nad erer Work Phone: Procedure on prostate Jean A Naderer Work Phone: Prostatectomy Jean Christophe Gina Work Phone: Tonsillectomy and adenoidectomy Jean Christophe Gina Work Phone: Tooth extraction Marino LIANG Plan of Treatment Date Care Activity Detail Author Start: 01-03-2025 Pneumococcal Vaccine : 65+ Years (3 - PPSV23 or PCV20) Pneumococcal Vaccine: 65+ Years (3 - PPSV23 or PCV20) [facility] Start: 01-03-2025 Pneumococcal Vaccine : 65+ Years (3 of 3 - PPSV23 or PCV20) Pneumococcal Vaccine: 65+ Years (3 of 3 - PPSV23 or PCV20) [facility] Start: 08-20-2024 End: 08-20-2024 Patient encounter procedure 08/20/2024 2:30 PM EDT Office Visit [address] [place] [address] Cecilio Go MD 703 [facility] 2, [address] [address] [facility] Start: 12-05-2023 End: 12-05-2023 Patient encounter procedure 12/05/2023 1:30 PM EDT Office Visit [facility] [address] [place] [address] [place] [phone] Curtis Meléndez MD [address] [facility], [address] [place] [address] [id number] [facility] Start: 10-26-2023 COVID-19 Vaccine ( season) COVID-19 Vaccine ( season) [facility] Start: 10-26-2023 Influenza vaccination Influenza Vacc ine (#1) [facility] Start: 06-17-2023 End: 06-17-2023 Patient encounter procedure 06/17/2023 10:20 AM EDT Office Visit [address] [place] [address] [place] [address] Cecilio Go MD [address], [place] [address] [place], [place] [id number] [facility] Start: 04-14-2023 CT Chest WO contrast Fi [facility] Start: 04-14-2023 CT of chest without contrast CT chest wo con high res [facility] Start: 02-28-2023 End: 02-29-2024 XR Lumbar spine 2 or 3 Views [facility] Service Area Work Phone: Comment on above: Expected: 02/28/2023 , Expires: 02/29/2024 Start: 12-10-2022 FUV, Provider: Cecilio Go, Status: Pen, Time: 11:10 AM FUV, Provider: Cecilio Go, Status: Pen, Time: 11:10 AM [facility] 250 DO Work Phone: Start: 12-09-2022 FUV, Provider: Cecilio Go, Status: Pen, Time: 3:00 PM FUV, Provider: Cecilio Go, Status: Pen, Time: 3:00 PM [facility] Work Phone: Start: 12-09-2022 Patient encounter procedure [facility] [place] Start: 11-19-2022 Patient encounter procedure [facility] Start: 11-19-2022 POV, Provider: Curtis Meléndez, Status: Pen, Time: 1:30 PM POV, Provider: Curtis Meléndez, Status: Pen, Time: 1:30 PM [facility] Work Phone: Start: 11-05-2022 End: 11-05-2023 [facility] Start: 11-04-2022 End: 11-05-2023 [facility] Comment on above: If oral and IV lucita cotics ordered, use oral first and only use IV if oral is ineffective or cannot take oral. Do NOT give oral and IV within one hour of each other unless specificaly ordered. If NO result from Se nokot. Do NOT use with Senokot. Start: 11-04-2022 [facility], Provider: Curtis Meléndez, Status: Pen, Time: 7:30 AM [facility], Provider: Curtis Meléndez, Status: Pen, Time: 7:30 AM [facility] Work Phone: Start: 10-25-2022 COVID-19 Vaccine () COVID-19 Vaccine () [facility] Start: 10-22-2022 [facility], Provider: Curtis Meléndez, Status: Deven, Time: 1:30 PM [facility], Provider: Curtis Meléndez, Status: Pen, Time: 1:30 PM [facility] Work Phone: Start: 09-24-2022 FUV, Provider: Curtis Meléndez, Status: Pen, Time: 1:30 PM FUV, Provider: Curtis Meléndez, Status: Pen, Time: 1:30 PM [facility] Work Phone: Start: 08-23-2022 NPV, Provider: Curtis Meléndez, Status: Pen, Time: 1:15 PM NPV, Provider: Curtis Meléndez, Status: Pen, Time: 1:15 PM [facility] 250 DO Work Phone: Start: 08-15-2022 US scan of aorta US aorta [facility] Start: 08-15-2022 US Thoracic and abdominal aorta [facility] Start: 08-08-2022 ambulatory Ambulatory Facility:H 1 Start: 07-31-2022 AOILIVC, Provider: FRANKIE KEE ULTRASOUND ,[id number], Status: Pen, Time: 1:30 PM AOILIVC, Provider: FRANKIE KEE ULTRASOUND ,[id number], Status: Pen, Time: 1:30 PM [facility] Work Phone: Start: 06-04-2022 FUV, Provider: Cecilio Go, Status: Pen, Time: 11:30 AM FUV, Provider: Cecilio Go, Status: Pen, Time: 11:30 AM -[facility] 250 DO Work Phone: Start: 02-06-2022 FUV, Provider: Cecilio oG, Status: Pen, Time: 8:50 AM FUV, Provider: Cecilio Go, Status: Pen, Time: 8:50 AM [facility] 250 DO Work Phone: Start: 12-11-2021 FUV, Provider: Cecilio Go, Status: Pen, Time: 11:20 AM FUV, Provider: Cecilio Go, Status: Pen, Time: 11:20 AM -[facility] 250 DO Work Phone: Start: 04-30-2021 FUV, Provider: Cecilio Go, Status: Pen, Time: 1:20 PM FUV, Provider: Cecilio Go, Status: Pen, Time: 1:20 PM -[facility] 250 DO Work Phone: Start: 02-15-2021 COVID-19 Vaccine (4 - Moderna series) COVID-19 Vaccine (4 - Moderna series) [facility] Start: 2015 RSV High Risk: (Elderly (60+) or Population) (1 - Risk 60-74 years 1-dose series) RSV High Risk: (Elderly (60+) or Population) (1 - Risk 60-74 years 1-dose series) [facility] Start: 10-18-2005 Zoster Vaccines (1 o f 2) Zoster Vaccines (1 of 2) [facility] Start: 10-18-1977 DTaP/Tdap/Td Vaccine s (1 - Tdap) DTaP/Tdap/Td Vaccines (1 - Tdap) [facility] Start: 10-18-1973 Diabetes mellitus screening Diabetes Screening [facility] Start: 10-18-1973 Hepatitis C [facility] Lipid panel Lipid Panel [facility] Start: 1955 Medicare Annual Wellness Visit Medicare Annual Wellness Visit (AWV) [facility] Start: 1955 Screening for malignant neoplasm of colon [facility] CT Chest WO contrast [place] [facility] Immunizations Immunization Date Immunization Notes Care Provider Fa zenaida 11-06-2022 influenza, high dose seasonal, preservative-free Carmen Witt Other Phone: [facility] 11-06-2022 influenza virus vaccine, unspecified formulation Cecilio Go MD Work Phone: [facility] Work Phone: 12-26-2021 Fluad Quadrivalent 0 .5 ML Intramuscular Prefilled Syringe Jean Nicholson [facility] Work Phone: 12-26-2021 influenza, seasonal, injectable Curtis Meléndez MD Work Phone: [facility] Work Phone: 12-21-2020 Pfizer-BioNTDotBlu COVID-19 Vacc 30 MCG/0.3ML Intramuscular Suspension Jean Nicholson Work Phone: [facility] 12-21-2020 pneumococcal conjuga te vaccine, 13 valent Jean Nicholson Work Phone: [facility] 12-21-2020 zoster vaccine recombinant Jean Nicholson [facility] [employer] 250 DO Work Phone: 12-21-2020 zoster vaccine, unspecified formulation Curtis Meléndez MD Work Phone: [facility] Work Phone: 12-10-2020 Fluad Quadrivalent 0 .5 ML Intramuscular Prefilled Syringe Jean Nicholson Work Phone: [facility] 250 DO Work Phone: 12-10-2020 influenza, seasonal, injectable Curtis Meléndez MD Work Phone: [facility] Work Phone: 06-21-2020 COVID-19 Vaccine Moderna - Documentation Purposes Only Danna Mcdaniel Other [facility] [employer] Other 05-09-2020 COVID-19 Vaccine Moderna - Documentation Purposes Only Danna Violeta Other [facility] [employer] Other 01-04-2020 influenza, injectabl e, quadrivalent, preservative free Jean A Naderer Work Phone: [place] [address] DO Work Phone: 01-04-2020 influenza, seasonal, injectable [...] seasonal, injectable Jean A Naderer Work Phone: [place] [address] DO Work Phone: 11-24-2017 influenza virus vaccine, unspecified formulation Jean A Naderer Work Phone: [place] [address] DO Work Phone: 02-25-2016 pneumococcal polysaccharide vaccine, 23 valent Jean A Naderer Work Phone: [facility] Payers Date Payer Category Payer Dual Eligibility Medicare/Medicaid Organization [facility] DUAL COMPLETE [id number] 2023 Private Health Insurance [id number] 2023 Medicare 2022 Self-pay [id number] 2022 Unknown 2020 Unknown [id number] 2.16.840.1.856993.19 2020 Medicaid MEDICAID [id number] 2020 Medicaid [id number] 2020 Unknown [id number] 2.16.840.1.671677.19 1959 Unknown [id number] 1955 Unknown [id number] 2.16.840.1.063445.3.579.2 .593 1955 Unknown [id number] 2.16.840.1.292479.3.579.2 .593 1955 Unknown [id number] 2.16.840.1.414955.3.579.2 .593 1955 Unknown [id number] 2.16.840.1.554003.3.579.2 .593 1955 Unknown [id number] 2.16.840.1.972123.3.579.2 .593 1955 Unknown [id number] 2.16.840.1.607239.3.579.2 .593 1955 Unknown [id number] 2.840.1.575603.3.579.2 .593 1955 Unknown [id number] 2.840.1.525100.3.579.2 .593 1955 Unknown [id number] 2.840.1.898069.3.579.2 .593 1955 Unknown [id number] 2.840.1.401458.3.579.2 .593 1955 Unknown [id number] 2.840.1.200078.3.579.2 .593 1955 Unknown [id number] 2.840.1.475207.3.579.2 .593 1955 Unknown [id number] 2.840.1.035028.3.579.2 .356 1955 Unknown [id number] 2.16.840.1.490818.3.579.2 .356 1955 Unknown [id number] 2.16840.1.478960.3.579.2 .1244 1955 Unknown [id number] 2.16.840.1.274423.3.579.2 .1068 1955 Unknown [id number] 2.16840.1.183990.3.579.2 .1068 1955 Unknown [id number] 2.16.840.1.578921.3.579.2 .8 1955 Unknown [id number] 2.16.840.1.415144.3.579.2 .8 1955 Unknown [id number] 2.16.840.1.890426.3.579.2 .1067 1955 Unknown [id number] 2.16.840.1.223142.3.579.2 .1068 1955 Unknown [id number] 2.16.840.1.967001.3.579.2 .1067 1955 Unknown [id number] 2.16.840.1.001840.3.579.2 .727 1955 Unknown [id number] 2.16.840.1.141580.3.579.2 .72 1955 Unknown [id number] 2.16.840.1.793971.3.579.2 .196 1955 Unknown [id number] 2.16.840.1.302076.3.579.2 .196 1955 Unknown [id number] 2.16.840.1.337002.3.579.2 .196 1955 Unknown [id number] 2.16.840.1.418469.3.579.2 .196 1955 Unknown [id number] 2.16.840.1.375226.3.579.2 .1246 1955 Unknown [id number] 2.16.840.1.611680.3.579.2 .1245 1955 Unknown [id number] 2.16.840.1.163860.3.579.2 .1245 1955 Unknown [id number] 2.16.840.1.263032.3.579.2 .1245 1955 Unknown [id number] 2.16.840.1.309947.3.579.2 .1246 1955 Unknown [id number] 2.16.840.1.254345.3.579.2 .1246 Medicare [id number] 2.16.840.1.554281.19 Medicare [facility] [id number] Medicare [id number] Unknown [id number] 2.16.840.1.081879.3.579.2 .531 Unknown [id number] 2.16.840.1.630098.3.579.2 .531 Unknown [id number] 2.16.840.1.937071.3.579.2 .531 Social History Date Type Detail Facility Start: 12-09-2022 End: 01-08-2024 Former smoker Former smoker [facility] 250 DO Work Phone: Start: 12-09-2022 End: 01-08-2024 Sex Assigned At [facility] Start: 07-14-2021 End: 12-09-2022 Tobacco smoking status NHIS Never smoked tobacco (finding) [facility] Start: 1955 Sex Assigned At Male [facility] Tobacco smoking consumption unknown [facility] Start: 12-18-2020 End: 11-17-2023 Tobacco smoking status Ex-smoker (finding) [facility] Start: 12-09-2022 Tobacco use and exposure Smokeless tobacco non-user [facility] Work Phone: Start: 12-09-2022 End: 01-08-2024 Alcohol intake Lifetime non-drinker (finding) [facility] Work Phone: Start: 1955 Sex Assigned At Not on file [facility] Work Phone: Start: 02-18-2023 End: 01-08-2024 Exposure to SARS-CoV-2 (event) Not sure [facility] Functional Status Date Assessment Result Facility 12-23-2022 Functional Status N/A [facility] Functional observable [facility] Mental Status Date Assessment Result Facility 11-06-2022 Cognitive functions [id number] [facility] Clinical Notes 11-30-2020 to 01-08-2024 Cecilio Go MD - 01/08/2024 10:10 AM ESTPatient InstructionsAttachmentsCurtis Meléndez MD - 06/03/2023 1:45 PM Melani Meléndez MD - 02/28/2023 1:15 PM EST Note Date & Type Note Facility 01-08-2024 History of Present illness Narrative Subjective Erik Morales is a 68 y.o. male Chief Complaint Follow-up HPI Patient is in the office for follow-up for the problems noted below accompanied by his friend. He continue to follow with PCP Dr. Rios who had blood work on him recently which we requested. The patient continue to follow with pulmonary medicine for pulmonary fibrosis. He is not on oxygen and he is doing very well. He is ultrasound of the abdomen revealed 3.5 cm aneurysm which we have been following noninvasively. This is asymptomatic. He has no side effect of medications. His lungs sounded normal except for basal crackles and his card examination was normal. He has not retaining any fluid. He is anticoagulated for PE and has had no bleeding complications. 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 The event was unprovoked, will continue to monitor CBC 3-mild mitral regurgitation , last echo 2021, currently inconsequential 4-prostate cancer status post surgery in remission 5-nuclear stress test 2021 normal, patient remains with no evidence of ischemic heart disease 6-class I obesity advised patient to reduce calorie intake, he cannot do much exercise due to dyspnea. 7-small abdominal aortic aneurysm less than 3.5 cm by ultrasound July 2022 patient is reformed smoker, follow-up testing will be scheduled in couple of years 8-high risk medication with anticoagulation to be monitored closely 9-history of sinus tachycardia currently heart rate is controlled on beta-blockers Review of Systems All other systems reviewed and are negative. Vitals: 01/08/24 1004 BP: 120/82 BP Location: Right arm Patient Position: Sitting Pulse: 60 Weight: 94.3 kg (208 lb) Height: 1.753 m (5' 9 ) Objective Physical Exam Constitutional: Appearance: Normal appearance. HENT: Nose: Nose normal. Neck: Vascular: No carotid bruit. Cardiovascular: Rate and Rhythm: Normal rate. Pulses: Normal pulses. Heart sounds: Normal heart sounds. Pulmonary: Effort: Pulmonary effort is normal. Comments: Crackles bilateral lung bases Abdominal: General: Bowel sounds are normal. Palpations: Abdomen is soft. Musculoskeletal: General: Normal range of motion. Cervical back: Normal range of motion. Right lower leg: No edema. Left lower leg: No edema. Skin: General: Skin is warm and dry. Neurological: General: No focal deficit present. Mental Status: He is alert. Psychiatric: Mood and Affect: Mood normal. Behavior: Behavior normal. Thought Content: Thought content normal. Judgment: Judgment normal. Allergies Nitroglycerin Current Medications Current Outpatient Medications: apixaban (Eliquis) 5 mg tablet, Take 1 tablet (5 mg) by mouth 2 times a day., Disp: , Rfl: atorvastatin (Lipitor) 40 mg tablet, Take 1 tablet (40 mg) by mouth once daily at bedtime., Disp: , Rfl: furosemide (Lasix) 20 mg tablet, Take 1 tablet (20 mg) by mouth once daily in the morning. Take before meals., Disp: 90 tablet, Rfl: 0 lisinopril 20 mg tablet, Take 1 tablet (20 mg) by mouth once daily., Disp: , Rfl: metoprolol tartrate (Lopressor) 25 mg tablet, Take 1 tablet (25 mg) by mouth 2 times a day., Disp: 180 tablet, Rfl: 0 nortriptyline (Pamelor) 25 mg capsule, Take 1 capsule (25 mg) by mouth once daily at bedtime., Disp: , Rfl: omeprazole (PriLOSEC) [address] capsule, Take 1 capsule (40 mg) by mouth once daily., Disp: , Rfl: oxybutynin XL (Ditropan-XL) 10 mg 24 hr tablet, Take 1 tablet (10 mg) by mouth once daily., Disp: , Rfl: oxyCODONE-acetaminophen (Percocet) 5-325 mg tablet, TAKE 1 TABLET Twice daily PRN, Disp: , Rfl: potassium chloride CR 10 mEq ER tablet, TAKE 1 TABLET BY MOUTH EVERY DAY, Disp: 90 tablet, Rfl: 3 tiZANidine (Zanaflex) 4 mg tablet, Take 1 tablet (4 mg) by mouth once daily at bedtime., Disp: , Rfl: Assessment/Plan 1. Essential hypertension Follow Up In Cardiology Follow Up In Cardiology 2. Mitral valve insufficiency, unspecified etiology Follow Up In Cardiology 3. Pulmonary fibrosis (Multi) 4. Pulmonary embolism, unspecified chronicity, unspecified pulmonary embolism type, unspecified whether acute cor pulmonale present (Multi) 5. Mixed hyperlipidemia 6. Abdominal aortic aneurysm (AAA) without rupture, unspecified part ([facility]) 7. Lung crackles 8. Class 1 obesity due to excess calories without serious comorbidity with body mass index (BMI) of 30.0 to 30.9 in adult Scribe Attestation By signing my name below, I, Annemarie Mckay LPN , [employer] attest that this documentation has been prepared under the direction and in the presence of Cecilio Go MD. Provider Attestation - Scribe documentation All medical record entries made by the Scribe were at my direction and personally dictated by me. I have reviewed the chart and agree that the record accurately reflects my personal performance of the history, physical exam, discussion and plan. documented in this encounter [facility] Work Phone: 01-08-2024 Instructions Annemarie Flores LPN - 01/08/2024 10:10 AM EST Please bring all medicines, vitamins, and herbal supplements with you when you come to the office. Prescriptions will not be filled unless you are compliant with your follow up appointments or have a follow up appointment scheduled as per instruction of your physician. Refills should be requested at the time of your visit. BMI was above normal measurement. Current weight: 94.3 kg (208 lb) Weight change since last visit (-) denotes wt loss 4 lbs Weight loss needed to achieve BMI 25: 39.1 Lbs Weight loss needed to achieve BMI 30: 5.3 Lbs Provided instructions on dietary changes Provided instructions on exercise. The following attachments cannot be sent through Care Everywhere.Heart Healthy Diet (Yi)documented in this encounter [facility] Work Phone: 06-03-2023 History of Present illness Narrative Erik [...] split dictation. -Nicolas Kohli PA-C In a [id number] encounter, I performed a history and physical [...] MD Orthopedic surgery documented in this encounter [facility] Work Phone: 02-28-2023 History of Present [...] portion of this split dictation. In a [id number] encounter, I performed a history and physical [...] treatment? Where to find more information [employer] [place]: www.cancer.org [employer] [place]: www.auanet.org Contact a health care [...] provider. Document Revised: 08/06/2021 Document Reviewed: 08/06/2021 [employer] Patient Education 2022 [employer]. Follow Up Care 12/21/2021 12:26:12 With:RAINER JIMENEZ, Marino Calabrese, URL Address: [facility] [address] [place] [address] [phone] When: Unknown Comments:1 yr w/ PSA [facility] 11-07-2022 Note Send Summary: Discharge Summary Providers: Provider RoleProvider Name Carmen Conner Robert ConsultingKher, Chirag [facility] Witt Note Recipients: Curtis Meléndez MD - [id number] [Preferred] Carmen Witt MD - [id number] [] Cayden Flores MD Discharge: Summary: Admission Date: .04-Nov-2022 05:14:00 Discharge Date: 07-Nov-2022 Attending Physician at Discharge: Curtis Meléndez Admission Reason: Lumbar stenosis and spondylolisthesis(1) Final Discharge Diagnoses: Back pain Procedures: Date: 04-Nov-2022 13:07:00 Procedure Name: 1. 2. 3. 4. 5. Condition at Discharge: Satisfactory Disposition at Discharge: .Home Vital Signs: T PRBPMAPSpO2 [id number]% Date/Time11/07 8:5611/07 8:5611/07 8:5611/07 8: 21:0811/07 8:56 [...] please call ahead and schedule appointment Location: [address] [facility] Phone Number: [phone] Discharge Medications: Home Medication furosemide 20 mg [...] tab(s) orally once a day Potassium Chloride (Pfz-Dvol-Aiv 10) 10 mEq oral tablet, extended release [...] discharge: Full Code Electronic Signatures: Gilda Mcmahon (DOOR CORE ASSEMBLER-SERVICE LINE COORDINATOR) (Signed 07-Nov-2022 09:26) Authored: Send Summary, Summary Content, Immunizations, Ongoing Care, DNR Status, Note Completion Last Updated: 07-Nov-2022 09:26 by Gilda Mcmahon (DOOR CORE ASSEMBLER-SERVICE LINE COORDINATOR) References: 1. Data Referenced From Consult-General Internal Medicine 04-Nov-2022 16:29 [facility] 11-04-2022 Note Post Operative Note: Post-Procedure Diagnosis: Lumbar stenosis and spondylolisthesis Procedure: 1. 2. 3. 4. 5. Surgeon: Ángela Resident/Fellow/Other Consumer Product Advisor: Alice Estimated Blood Loss (mL): 100 cc Specimen: no Findings: Lumbar stenosis and spondylolisthesis Operative Report Dictated: Dictation: not applicable - note contains Operative Report Note Recipients: Curtis Meléndez MD - [id number] [Preferred] Carmen Witt MD - [id number] [] Operative Report: Preoperative diagnosis: L2-3 and [...] Curtis Meléndez M.D. Asst.: Sonu HillThe physician patient observation assistant was present through the entire case. Given the nature of the disease process and the procedure to be performed a skilled certified medical technician assistant was necessary during the case. The patient observation assistant was necessary in order to hold retractors and directly assist in the operation. A certified endoscopy technician was at the back table managing instruments [...] the large dilat (more content not included)... [facility] 11-04-2022 Reason for referral (narrative) Reason for Referral: Surgery 11.04.2022 L3-4 lateral interbody fusion, L2-3 and L3-4 laminectomy and posterior lateral fusion, L3-4 lateral instrumentation, thermal ablation of median nerve to L2-3 and L3-4 [facility] 10-30-2022 Evaluation note Encounter Date Diagnosis Assessment Notes Oct, Diastolic dysfunction (ICD-10 - I51.89) Continue all recommendati on/medicatio ns per your Excavator Operator . Oct, ILD (interstitial lung disease) (ICD-10 - J84.9) Pulmonary Function Test as scheudled prior to next office appointment. [facility] Other 07-27-2023 History of Present illness Xi is a 67-year-old gentleman here for preop [...] has no bowel or bladder complaints.-Center [facility] Phone: 1(126) 109-968806-27-2023 Evaluation note* Encounter Date Diagnosis Assessment Notes Treatment Notes Treatment Clinical Notes Jul, Diastolic dysfunction (ICD-10 - I51.89) Jul, ILD (interstitial lung disease) (ICD-10 - J84.9) I reviewed results and images of your Chest CT completed at [facility] 10/2021 and 01/2022. There is evidence of very mild fibrosis (scarring). Continue with physcial activity as you are. [facility] Other 06-22-2023 Evaluation note* Encounter Date Diagnosis [...] agrees with plan, and denies any questions. [facility] Other 03-16-2023 NoteCONSULTATION CONSULTATION DATE: 05/09/2022 HISTORY: [...] is currently under the care of a mailroom coordinator. Most recent physician appointment does show that his lungs are slowly improving. He does have a Cardiology appointment on 06/13/2022, and at that time, he will discuss with the canary raiser regarding possible use of sedation and holding [...] otherwise indicated. Patient agrees with this care.[facility] [id number] NoteCONSULTATION CONSULTATION DATE: 02/07/2022 HISTORY OF PRESENT [...] still being followed up with Pulmonology in [facility] and, most recently, they feel he [...] up in three months, unless otherwise indicated.[facility] [id number] Evaluation note* Encounter Date Diagnosis Assessment Notes Treatment Notes Treatment Clinical Notes Jan, Diastolic dysfunction (ICD-10 - I51.89) Jan, ILD (interstitial lung disease) (ICD-10 - J84.9) I will look at Chest CT from [place] and let you know if any further testing is needed. Jan, Dyspnea (ICD-10 - R06.00) [facility] Other 10-04-2022 NoteCONSULTATION CONSULTATION DATE: 11/27/2021 CHIEF [...] is under the care of Dr. Go, canary raiser, who has suggested that the patient not hold the Eliquis for any treatment right now and, as such, we will maintain a conservative approach. IMPRESSION: As such, the patient's current working diagnosis is chronic low back pain, new diagnosis of cystic fibrosis. A recent CT of the lung was performed and the patient is under the care of [facility]. The patient is also under anticoagulation therapy. PLAN: We will refill the patient's Percocet 5/325 b.i.d. The patient will be returning in clinic as needed. The patient has had a rhizotomy, radiofrequency along the low back and, as such, is stable with regards to his low back.[facility] [id number] NoteCONSULTATION CONSULTATION DATE: 08/30/2021 This is a [...] past he had been diagnosed with an W[place] in addition to an aneurysm and cystic fibrosis. The patient was worked up in the emergency department and it was found that he had multiple PEs in his lungs and in his right lower leg. The patient was transferred to [facility] where the large PE was surgically [...] followed up in three months' time. [facility] Signed and Approved by: LAUREN BAUMANN . 09/06/2021 09:46:00[facility]06-28-2022 Evaluation note* Encounter Date Diagnosis Assessment Notes [...] physcial activity....walk 3-4x a day to start. [facility] Other 06-22-2022 Evaluation note* Encounter Date Diagnosis [...] the plan all his questions were addressed. [facility] Other 10-07-2021 Evaluation note* Encounter Date Diagnosis [...] Nov, Other Try Mylanta for acid reflux. [facility] Other Evaluation + Plan note Future Appointments Appointment Date:12/26/2023 11:00:00 AM Scheduled Provider:Marino SPEAR MD Location:[facility] Appointment Type:URO Office Visit Diagnostic Tests Pending * PSA Total 12/23/22 [facility] evaluation noteNo InformationNort [employer] Other Evaluation noteNo assessment information available [facility] Work Phone: Evaluation note* Constitutional: Well developed, [...] senses, motor, response and reflexes, normal strength [facility] Diagnosis Low back pain, unspecified back pain laterality, unspecified chronicity, unspecified whether sciatica present- Primary documented in this encounter [facility] Work Phone: Evaluation note* Diagnosis Onset Date Resolution Status Grade I diastolic dysfunction acute Pulmonary fibrosis [facility] Work Phone: Evaluation note* Diagnosis Low back pain, unspecified back pain laterality, unspecified chronicity, unspecified whether sciatica present- Primary Lumbar pain Lumbago documented in this encounter [facility] Work Phone: Evaluation note* Diagnosis Lumbar pain Lumbago documented in this encounter [facility] Work Phone: Evaluation note* Diagnosis Onset Date Resolution Status AAA (abdominal aortic aneurysm) [facility] Work Phone: Evaluation note* Diagnosis Onset Date Resolution Status AAA (abdominal aortic aneurysm) acute Bronchiectasis acute Grade I diastolic dysfunction acute Pulmonary fibrosis [facility] Work Phone: Evaluation note* Diagnosis Essential hypertension Unspecified essential hypertension Mitral valve insufficiency, unspecified etiology Pulmonary fibrosis (Multi) Postinflammatory pulmonary fibrosis Pulmonary embolism, unspecified chronicity, unspecified pulmonary embolism type, unspecified whether acute cor pulmonale present (Multi) Mixed hyperlipidemia Abdominal aortic aneurysm (AAA) without rupture, unspecified part ([facility]) Lung crackles Class 1 obesity due to excess calories without serious comorbidity with body mass index (BMI) of 30.0 to 30.9 in adult documented in this encounter [facility] Work Phone: History general Narrative - Reported* Type Description Date Medical History COPD Medical History asthma Medical History sleep apnea (negative PSG) Medical History aaa Medical History pe Surgical History spine 2001 Surgical History neck 2004 Surgical History prostate biopsy 2017 Surgical History dental extraction Hospitalization History as above Hospitalization History pe 2021 [facility] Other [place] [facility] Narrative - Reported* Type Description Date Medical History NOEL Medical History COPD Medical History asthma Medical History sleep apnea Surgical History spine 2001 Surgical History neck 2004 Surgical History prostate biopsy 2017 Hospitalization History as above [facility] Other [facility] Narrative - Reported* Type Description Date Medical History COPD Medical History asthma Medical History sleep apnea (negative PSG) Surgical History spine 2001 Surgical History neck 2004 Surgical History prostate biopsy 2017 Hospitalization History as above [facility] Other [place] [facility] Narrative - Reported* Type Description Date Medical History COPD Medical History asthma Medical History sleep apnea (negative PSG) Medical History aaa Medical History pulmonary embolism Surgical History spine 2001 Surgical History neck 2004 Surgical History prostate biopsy 2017 Surgical History dental extraction Hospitalization History as above Hospitalization History pulmonary embolism [facility] 06[facility]2021 [facility] Other [facility] Narrative - Reported* Type Description Date Medical History COPD Medical History asthma Medical History sleep apnea (negative PSG) Medical History aaa Medical History pulmonary embolism Medical History interstitial lung disease Medical History diastolic dysfunction Surgical History spine 2001 Surgical History neck 2004 Surgical History prostate biopsy 2017 Surgical History dental extraction Hospitalization History as above Hospitalization History pulmonary embolism [facility] 06/2021 [facility] Other History of Present illness NarrativeErik is [...] to the pain management center down in [place].[facility] Work Phone: Hospital course Narrative No data available for this section [facility] Hospital Discharge instructions* Activity:activity as tolerated. [...] weeks, please call ahead and schedule appointmentLocation: [address] [facility]: [phone] [facility] HospitalProgress note No data available for this section [facility] Chief Complaint Pt came in today [...] office for follow-up for recent admission to [facility] with bilateral pulmonary embolism leading to [...] pulmonary embolism. Recently follow-up CT scan at [facility] revealed resolution of the pulmonary emboli. Some other pathology was noted with densities requiring follow-up imaging in 3 to 6 months which has been arranged through his PCP. He is cu rrently anticoagulated with Eliquis. The patient is contemplating further dental work in December which he should be able to hold anticoagulation prior to. Recent nuclear stress test at [facility] was reviewed and shared with the patient and was normal. He is also known to have normal ejection fraction. He currently has no complaint to report physical examination was only remarkable for 8 pounds weight gain from last visit. He is now in the obesity range recent medical record from [facility] were reviewed with the patient [...] thoracic and lumbar xrays and MRI in [place]. brought a disc.new patient. low back pain with RT sided pain to nee x 2 months. h/o sx in 1998. thoracic and lumbar xrays and MRI in [place]. brought a disc.F/U Lumbar after therapy, says that he feels about the same.f/u pre op sx 11/04/22, lumbarL3-4 Lateral Fusion w/Instrumentation Laterally/L2-3, L3-4 Lami 11/04/22, 15 days PO doing good. Family History Unknown Family Member Name Dates Details Family [...] family member Unknown Summary Purpose Advance Directives Advance Directive Response Recorded Date/ Time Advance [...] lumbar spine 2-3 views Curtis Meléndez MD [address] [facility], [address] [place] [id number] Referral ID Status Reason Start Date Expiration Date Visits Requested Visits Authorized [id number] Authorized Perform Procedure 06/03/2023 06/02/2024 1 1 Specialty Diagnoses / Procedures Referred By Contac t Referred To Contact Radiology Diagnoses Low back pain, unspecified back pain laterality, unspecified chronicity, unspecified whether sciatica present Procedures XR lumbar spine 2-3 views Curtis Meléndez MD [address] [facility], [address] [place] [id number] Referral ID Status Reason Start Date Expiration Date Visits Requested Visits Authorized [id number] Authorized Perform Procedure 02/28/2023 02/28/2024 1 1 [...] lumbar spine 2-3 views Curtis Meléndez MD [address] [facility], [address] [place] [address] Referral ID Status Reason Start Date Expiration Date Visits Requested Visits Authorized [id number] Authorized Perform Procedure 06/03/2023 06/02/2024 1 1 Reason Comments Follow-up 6m Specialty Diagnoses / Procedures Referred By Contac t Referred To Contact Cardiology Diagnoses Essential hypertension Mitral valve insufficiency, unspecified etiology Procedures Follow Up In Cardiology Cecilio Go MD [address] [facility], [address] [address] Phone: tel: fax: Referral ID Status Reason Start Date Expiration Date Visits Re quested Visits Authorized [id number] Closed 12/09/2022 06/07/2023 1 1 (unrecognized sect ion and content) No Status Records FoundNo Status Records FoundNo Status Records FoundNo Status Records FoundNo Status Records FoundNo Status Records FoundNo Status Records FoundNo Status Records FoundNo Status Records Found INFORMATION SOURCE (unrecogn ized section and content) DATE CREATED AUTHOR 07/07/2022 [facility] DATE CREATED AUTHOR AUTHOR'S ORGANIZ ATION 10/25/2022 [facility] DATE CREATED AUTHOR AUTHOR'S ORGANIZ ATION 11/29/2022 [facility] DATE CREATED AUTHOR AUTHOR'S ORGANIZ ATION 12/11/2022 [facility] DATE CREATED AUTHOR AUTHOR'S ORGANIZ ATION 12/14/2022 [facility] DATE CREATED AUTHOR AUTHOR'S ORGANIZ ATION 12/24/2022 [facility] DATE CREATED AUTHOR AUTHOR'S ORGANIZ ATION 08/22/2023 [facility] DATE CREATED AUTHOR AUTHOR'S ORGANIZ ATION 10/07/2023 [facility] DATE CREATED AUTHOR AUTHOR'S ORGANIZ ATION 11/17/2023 [facility] Care Teams (unrecognized sec tion and content) Team Status: Active Member Role Status Dates Jean Nicholson MD Primary Care Provider Active Team Status: Inactive Member Role Status Dates Jean Nicholson MD Primary Care Provider Active Bianka Garcia , VOLUNTEER RECRUITER-C Attending Provider Active Union Representative Relationship Specialty Start Date End Date Carmen Witt MD [address] [place] [id number] PCP - General 06/04/22 Team Status: Inactive Member Role Status Dates Jean Nicholson MD Primary Care Provider Active Danna Mcdaniel APRN [facility] Attending Provider Active Team Status: Inactive Member Role Status Dates Jean Nicholson MD Primary Care Provider Active S tart: March 04, 2023 End: March 04, 2023 Danna Mcdaniel APRN [facility] Attending Provider Active Start: March 04, 2023 End: March 04, 2023 Team Status: Inactive Member Role Status Dates Jean Nicholson MD Primary Care Provider Active S tart: April 09, 2023 End: April 09, 2023 Danna Mcdaniel APRN [facility] Attending Provider Active Start: April 09, 2023 End: April 09, 2023 Team Status: Active Member Role Status Dates Carmen Witt MD Primary Care Provider Active Team Status: Inactive Member Role Status Dates Danna Mcdaniel APRN [facility] Attending Provider Active Start: April 14, 2023 End: April 14, 2023 Carmen Witt MD Primary Care Provider Active Start: April 14, 2023 End: April 14, 2023 Union Representative Relationship Specialty Start Date End Date Carmen Witt MD [address] [place] [id number] PCP - General 06/04/22 Union Representative Relationship Specialty Start Date End Date Carmen Witt MD [address] [place] [id number] PCP - General 06/04/22 Team Status: Inactive [...] End: November 17, 2023 Danna Mcdaniel APRN [facility] Attending Provider Active Start: November 17, 2023 End: November 17, 2023 Union Representative Relationship Specialty Start Date End Date Carmen Witt MD [address] [phone] PCP - General 06/04/22 Goals (unrecognized section and content) Goals may [...] BE BASED ON THE PRIMARY CLINICAL RECORDS. [facility] [employer] [facility]. provides no warranty or guarantee of the accuracy or completeness of information in this document.
--- NOTE | 2024-01-08 12:34 | P.CN_ITS ---
Consult Note: HPI Data of Consult Patient: known to practice within the last 3 years Consult date: 04/07/23 Requesting Physician: Mercedes Massey NP Primary Care Provider: Radames Ricks MD Consult Narrative Reason for consult: right hip, right low back, right leg pain Narrative: 67yom who presents for assessment. worsening right low back, leg, hip pain. imaging reviewed, which shows multilevel degenerative changes and stenosis, as well as fusion from l4-s1. has continued in provider directed home exercise program >6 weeks, with minimal benefit. uses percocet 5-325mg BID PRN, nortriptyline 25mg hs, celebrex and baclofen as needed. denies adverse med side effects. Today pain in right SIJ and low back 3/10. Pain in low back and legs increasing to 5/10 with standing and walking. recent caudal BRIAN providing >50% improvement in pain and functional ability ongoing per patient, noticing improvement in ability to stand and walk for longer periods of time. cc:: CC: Mercedes Massey NP Review of Systems ROS Status of ROS 10 or more systems reviewed and unremark able except as noted in history and below Musculoskeletal Reports: back pain and joint pain PFSH PFSH Medical History Fixation hardware in spine ?Z96.7 - Presence of other bone and tendon implants (ICD-10) Fusion of lumbar spine ?M43.26 - Fusion of spine, lumbar region (ICD-10) Pulmonary embolism ?I26.99 - Other pulmonary embolism without acute cor pulmonale (ICD-10) Generalized weakness ?R53.1 - Weakness (ICD-10) Meds Home Medications and Allergies Home Medications ?Medication ?Instructions ?Recorded ?Confirmed ?Type acetaminophen 325 mg tablet 325 mg PO Q6H PRN pain 09/06/22 09/22/23 History (Tylenol) albuterol sulfate 90 mcg/actuation 2 puff inhalation Q4H PRN 09/06/22 09/22/23 History aerosol inhaler shortness of breath or wheezing apixaban 5 mg tablet (Eliquis) 5 mg PO Q12H 09/06/22 09/22/23 History atorvastatin 40 mg tablet 40 mg PO QDAY 09/06/22 09/22/23 History baclofen 10 mg tablet 10 mg PO QDAY 09/06/22 09/22/23 History furosemide 20 mg tablet 20 mg PO QDAY 09/06/22 09/22/23 History lisinopril 20 mg tablet 20 mg PO QDAY 09/06/22 09/22/23 History metoprolol tartrate 25 mg tablet 25 mg PO Q12H 09/06/22 09/22/23 History omeprazole 40 mg capsule,delayed 40 mg PO QDAY 09/06/22 09/22/23 History release oxybutynin chloride 10 mg 10 mg PO QDAY 09/06/22 09/22/23 History tablet,extended release 24 hr potassium chloride 10 mEq 10 meq PO QDAY 09/06/22 09/22/23 History tablet,extended release docusate sodium 100 mg capsule 100 mg PO BID 11/08/22 09/22/23 History nortriptyline 25 mg capsule 25 mg PO DAILY #30 caps 10/20/23 Rx oxycodone-acetaminophen 5 mg-325 1 tab PO BID PRN pain #60 tabs 11/03/23 Rx mg tablet (Percocet) oxycodone-acetaminophen 5 mg-325 1 tab PO BID PRN pain #60 tabs 12/04/23 Rx mg tablet (Percocet) Allergies Allergy/AdvReac Type Severity Reaction Status Date / Time No Known Drug Allergies Allergy Verified 05/19/23 09:58 Exam Constitutional Documenting provider has reviewed patient's vital signs: yes Common normals: no apparent distress, oriented x3, healthy appearing, alert and well nourished General appearance: cooperative HENMN Common normals: normocephalic, hearing grossly normal bilaterally and moist oral mucous membranes Head and scalp: normocephalic Eye Common normals: PERRL Pupil: PERRL Neck & C-Spine Common normals: full ROM General: normal visual inspection Chest Common normals: inspection of chest normal Respiratory Common normals: normal respiratory effort, no retractions and no use of accessory muscles Back & Pelvis Lumbar spine/lower back: ROM limited and straight leg raise negative bilaterally Sacroiliac joints: SI joint(s) abnormal Other: surgical scar healed, no redness tenderness or warmth right SIJ positive svetlana(patricks), gaenslens, thigh thrust, compression test Extremity Common normals: normal to inspection and full ROM Neuro Common normals: oriented x3, CN's II-XII intact bilaterally, moves all extremities, no focal motor deficits, no sensory deficits noted and deep tendon reflexes 2+ bilaterally Sensorium/orientation: alert Motor exam: strength 5/5 throughout and no movement abnormalities noted Psych Common normals: mental status grossly normal, thought process normal, cooperative, affect normal, speech normal and activity/motor behavior normal Speech: normal speech Thought process: normal thought process Results Additional Findings Additional findings: If on a controlled substance or opioids, I have checked an [place]AR[place] report on this patient and there are no aberrancies noted in the prescribing history.??If on a controlled substance or opioid a drug screen was completed and reviewed within the last year, and if there has not been a drug screen completed we ordered one today to monitor higher risk, state monitored pain medication use. As part of providing excellent, safe, comprehensive care, the following was completed at our patient's visit: 1. A medication reconciliation and review to ensure accurate knowledge of current/active medications, including asking our patients to inform us about any tnrq-xci-tqrobth medications or herbal remedies/nutritional supplements/alternative remedies. 2. A review to specifically ensure our patients have had annual screening for screening for depression, screening for tobacco use, and screening for unhealthy alcohol use. For concerning screenings had a discussion with the patient, provided patient education, and recommended follow-up with primary care provider when appropriate. If patient noted with a risk of falling, they received education on strength, gait, and balance training to prevent future risk of falling. Assessment and Plan Assessment and Plan (1) Lumbar stenosis with neurogenic claudication: Assessment and Plan: >50% improvement ongoing from caudal BRIAN (2) Lumbar postlaminectomy syndrome: (3) Failed back syndrome: (4) Encounter for long-term use of opiate analgesic: Assessment and Plan: I feel these medications are improving the patient's quality of life and allow them to tolerate activities of daily living as well as participate in recreational activity.? The patient does not report intolerable side effects. The patient is NOT opioid naive and non-pharmacologic and non-opioid treatment has failed to significantly relieve the patient's pain and improve functionality. The patient has a diagnosis that is related to a somatic or visceral pain etiology. ? ?? I reviewed with the patient the potential risks and side effects with the use of? opioid medications including but not limited to respiratory depression,? sedation, and even . I verified the patient has access to naloxone should? these effects occur. I advised the patient to avoid the use of any other? sedation substances including alcohol, THC, and benzodiazepines while? taking opioid medications due to the risk of compounding side effects and? detrimental outcomes. I reviewed the SOUP MIXER, pain treatment agreement, urine? drug screen, and opioid start talking forms. The patient was advised to let? their family know they had Naloxone in case they would need to administer? the medication.? ?? A drug screen was completed within the last year, and no aberrancies were noted regarding their use of controlled substances. The patient understands they are subject to the terms and conditions of the pain contract that they have signed. ? ?? I have checked an OARRS report on this patient today and there are no aberrancies noted in the prescribing history.? (5) Sacroiliac joint dysfunction: Assessment and Plan: declining right SIJ injection at this time Plan pt and i reviewed the violation in his [employer]CH[employer] by filling an opioid after dental surgery without communicating with our office. Pt did not stop taking his percocet while on tylenol #3 post-op. Patient will be converted to a NNCP or dismissed if there are any future occurrences as discussed today. continue current medications, tolerating well without side effects. encouraged to decrease percocet 5-325mg qd-BID PRN continue HEP as tolerated f/u 3 months, sooner if needed
== END 2024-01-08 12:15 | disposition home or self-care (01) ==
LOC: PM 12:14
PROVIDERS: PCP Family Medicine; Visit Provider Nurse Practitioner
DX: M48.062 Spinal stenosis, lumbar region with neurogenic claudication (principal); M96.1 Postlaminectomy syndrome, not elsewhere classified; Z79.891 Long term (current) use of opiate analgesic; M53.3 Sacrococcygeal disorders, not elsewhere classified
CPT/HCPCS: G0463

== ENCOUNTER 2024-04-07 12:25 | Outpatient (OUT) | payer MEDICARE, SELFPAY ==
--- NOTE | 2024-04-07 12:51 | P.CN_ITS ---
Consult Note: HPI Data of Consult Patient: known to practice within the last 3 years Requesting Physician: Mercedes Massey NP Primary Care Provider: Radames Ricks MD Consult Narrative Reason for consult: back pain Narrative: 68yom who presents for assessment. worsening right low back pain. imaging reviewed, which shows multilevel degenerative changes and stenosis, as well as fusion from l4-s1. has continued in provider directed home exercise program >6 weeks, with minimal benefit. uses percocet 5-325mg BID PRN, nortriptyline 25mg hs, celebrex and baclofen as needed. denies adverse med side effects. low back pain right >left side 6/10 increasing with standing, walking. CANDACE 36% with moderate to severe pain impacting ADLs, ability to sit, ability to stand, sleep, social life, and travel. cc:: CC: Mercedes Massey NP Review of Systems ROS Status of ROS 10 or more systems reviewed and unremark able except as noted in history and below Musculoskeletal Reports: back pain PFSH PFSH Medical History Fixation hardware in spine ?Z96.7 - Presence of other bone and tendon implants (ICD-10) Fusion of lumbar spine ?M43.26 - Fusion of spine, lumbar region (ICD-10) Pulmonary embolism ?I26.99 - Other pulmonary embolism without acute cor pulmonale (ICD-10) Generalized weakness ?R53.1 - Weakness (ICD-10) Meds Home Medications and Allergies Home Medications ?Medication ?Instructions ?Recorded ?Confirmed ?Type acetaminophen 325 mg tablet 325 mg PO Q6H PRN pain 09/06/22 09/22/23 History (Tylenol) albuterol sulfate 90 mcg/actuation 2 puff inhalation Q4H PRN 09/06/22 09/22/23 History aerosol inhaler shortness of breath or wheezing apixaban 5 mg tablet (Eliquis) 5 mg PO Q12H 09/06/22 09/22/23 History atorvastatin 40 mg tablet 40 mg PO QDAY 09/06/22 09/22/23 History baclofen 10 mg tablet 10 mg PO QDAY 09/06/22 09/22/23 History furosemide 20 mg tablet 20 mg PO QDAY 09/06/22 09/22/23 History lisinopril 20 mg tablet 20 mg PO QDAY 09/06/22 09/22/23 History metoprolol tartrate 25 mg tablet 25 mg PO Q12H 09/06/22 09/22/23 History omeprazole 40 mg capsule,delayed 40 mg PO QDAY 09/06/22 09/22/23 History release oxybutynin chloride 10 mg 10 mg PO QDAY 09/06/22 09/22/23 History tablet,extended release 24 hr potassium chloride 10 mEq 10 meq PO QDAY 09/06/22 09/22/23 History tablet,extended release docusate sodium 100 mg capsule 100 mg PO BID 11/08/22 09/22/23 History nortriptyline 25 mg capsule 25 mg PO DAILY #30 caps 10/20/23 Rx oxycodone-acetaminophen 5 mg-325 1 tab PO BID PRN pain #60 tabs 11/03/23 Rx mg tablet (Percocet) oxycodone-acetaminophen 5 mg-325 1 tab PO BID PRN pain #60 tabs 12/04/23 Rx mg tablet (Percocet) oxycodone-acetaminophen 5 mg-325 1 tab PO BID PRN pain #60 tabs 02/02/24 Rx mg tablet (Percocet) oxycodone-acetaminophen 5 mg-325 1 tab PO BID PRN pain #60 tabs 03/03/24 Rx mg tablet (Percocet) oxycodone-acetaminophen 5 mg-325 1 tab PO BID PRN pain #60 tabs 04/05/24 Rx mg tablet (Percocet) Allergies Allergy/AdvReac Type Severity Reaction Status Date / Time No Known Drug Allergies Allergy Verified 05/19/23 09:58 Exam Constitutional Documenting provider has reviewed patient's vital signs: yes Common normals: no apparent distress, oriented x3, healthy appearing, alert and well nourished General appearance: cooperative [facility] Common normals: normocephalic, hearing grossly normal bilaterally and moist oral mucous membranes Head and scalp: normocephalic Eye Common normals: PERRL Pupil: PERRL Neck & C-Spine Common normals: full ROM General: normal visual inspection Chest Common normals: inspection of chest normal Respiratory Common normals: normal respiratory effort, no retractions and no use of accessory muscles Back & Pelvis Lumbar spine/lower back: ROM limited and pain with ROM Other: sensation intact BLE strength 5/5 in BLE facet loading positive pain over L2-4 facets Extremity Common normals: normal to inspection and full ROM Neuro Common normals: oriented x3, CN's II-XII intact bilaterally, moves all extremities, no focal motor deficits, no sensory deficits noted and deep tendon reflexes 2+ bilaterally Sensorium/orientation: alert Motor exam: strength 5/5 throughout and no movement abnormalities noted Psych Common normals: mental status grossly normal, thought process normal, cooperative, affect normal, speech normal and activity/motor behavior normal Speech: normal speech Thought process: normal thought process Results Additional Findings Additional findings: If on a controlled substance or opioids, I have checked an [place] report on this patient and there are no aberrancies noted in the prescribing history.??If on a controlled substance or opioid a drug screen was completed and reviewed within the last year, and if there has not been a drug screen completed we ordered one today to monitor higher risk, state monitored pain medication use. As part of providing excellent, safe, comprehensive care, the following was completed at our patient's visit: 1. A medication reconciliation and review to ensure accurate knowledge of current/active medications, including asking our patients to inform us about any [id number] medications or herbal remedies/nutritional suppl ements/alternative remedies. 2. A review to specifically ensure our patients have had annual screening for screening for depression, screening for tobacco use, and screening for unhealthy alcohol use. For concerning screenings had a discussion with the patient, provided patient education, and recommended follow-up with primary care provider when appropriate. If patient noted with a risk of falling, they received education on strength, gait, and balance training to prevent future risk of falling. Portions of this note may have been carried over from the previous visit and updated as appropriate. Please note this office utilizes paper charting in addition to the electronic medical record. A list of current medications, vitals, and PMH is available there as the clinical staff outside of myself do not have access to [employer] charting during the clinic day operations. As part of providing quality comprehensive care the current medications, vitals, and PMH were reviewed in the paper chart. Assessment and Plan Assessment and Plan (1) Lumbar spondylosis: Assessment and Plan: The patient has had over 3 months of moderate to severe low back pain with functional impairment and inadequate response to conservative care including NS AIDS (unless there are contraindication such as concurrent blood thinners), multiple oral or topical pain medications, and home exercise program/physical therapy.? Patient has completed >6 weeks of guided home exercise program and/or formal physical therapy program without relief of their symptoms.? We discussed the risks and benefits of the procedure with the patient, and we are NOT planning on using sedation as outlined in the guidelines from Medicare unless there is a documented reason that sedation would be strongly recommended.?? ?The procedure will be completed with fluroscopic guidance.? (2) Chronic use of opiate for therapeutic purpose: (3) Failed back syndrome: (4) Lumbar stenosis with neurogenic claudication: (5) Encounter for long-term use of opiate analgesic: Plan bilateral L2,3 L3,4 facet medial branch block x2 working towards RFA for axial facet mediated low back pain continue HEP as tolerated continue current medications, increase baclofen 5-10mg BID PRN pain/spasms f/u after each injection
== END 2024-04-07 12:26 | disposition home or self-care (01) ==
PROVIDERS: PCP Family Medicine; Visit Provider Nurse Practitioner
DX: M47.816 Spondylosis without myelopathy or radiculopathy, lumbar region (principal); Z79.891 Long term (current) use of opiate analgesic; M96.1 Postlaminectomy syndrome, not elsewhere classified; M48.062 Spinal stenosis, lumbar region with neurogenic claudication
CPT/HCPCS: G0463

== ENCOUNTER 2024-04-19 08:25 | Day surgery (SDC) | payer MEDICARE, SELFPAY ==
[2024-04-19 08:53] VITALS: BP 144/92; PULSE 69; TEMP 36.3; O2SAT 98
[2024-04-19 09:34] VITALS: BP 153/81; PULSE 65; O2SAT 97
[2024-04-19 09:36] VITALS: BP 150/83; PULSE 69; O2SAT 96
[2024-04-19] MEDS: LIDOCAINE HCL 2% 400 MG/20 ML MDV INJ (09:36)
[2024-04-19] MEDS: BUPIVACAINE HCL 0.25% PF 25 MG/10 ML VIAL 8 ML INJ (09:36)
--- NOTE | 2024-04-19 09:40 | W.PM.PROCNOT ---
Date of procedure: 04/19/24 Pre-op diagnosis: Pain due to lumbar spondylosis without myelopathy Post-op diagnosis: same as pre-op Procedure: Procedure: Bilateral L2-3, 3-4 medial branch block Medications: Bupivacaine 0.25% 6cc The patient was seen and examined in the preoperative holding area.? An informed consent was obtained and placed on the chart.? The patient was brought to the medical procedure unit and placed in the prone position.? A timeout was completed verifying correct patient, procedure site, positioning, plan, and special equipment.? Using aseptic technique, the needle was placed at left L2. Under direct fluoroscopic visualization a Quincke-tipped spinal needle was advanced to the junction of the superior articulating process with the transverse process at the designated medial branch segment.? Preceded by negative aspiration, the above-mentioned injectate was placed in 1 mL aliquots.? The procedure was repeated at left L3, 4.? The needle was removed and insertion site was covered. The same procedure, at the same levels, was completed on the right side. The patient was taken to the postprocedural recovery area and monitored for an appropriate length of time before found suitable for discharge in the company of a responsible adult. Anesthesia: Local Surgeon: Maribell Leigh Pathology: none sent Condition: stable Disposition: no change
== END 2024-04-19 09:44 | disposition home or self-care (01) ==
LOC: SURGOUT 08:26
PROVIDERS: PCP Family Medicine; Visit Provider Anesthesiology
DX: M47.816 Spondylosis without myelopathy or radiculopathy, lumbar region (principal)
CPT/HCPCS: 64493; 64494; J0665

== ENCOUNTER 2024-04-22 12:35 | Outpatient (OUT) | payer MEDICARE, SELFPAY ==
--- NOTE | 2024-04-22 12:47 | PM.CN ---
Consult Note: HPI Data of Consult Patient: known to practice within the last 3 years Requesting Physician: Mercedes Massey NP Primary Care Provider: Radames Ricks MD Consult Narrative Reason for consult: back pain Narrative: 68yom who presents for assessment. worsening low back pain. imaging reviewed, which shows multilevel degenerative changes and stenosis, as well as fusion from l4-s1. has continued in provider directed home exercise program >6 weeks, with minimal benefit. uses percocet 5-325mg BID PRN, nortriptyline 25mg hs, celebrex and baclofen as needed. denies adverse med side effects. low back pain right >left side 6/10 increasing with standing, walking. CANDACE 30% with moderate to severe pain impacting ADLs, ability to sit, ability to stand, sleep, social life, and travel. On 04/19/24 pt underwent bilateral L2-3 L3-4 facet medial branch block #1 with >80% improvement in pain and functional ability immediately after and 1 day following the procedure, preop pain up to 9/10 post op pain 03/05. cc:: CC: Mercedes Massey NP Review of Systems ROS Status of ROS 10 or more systems reviewed and unremarkable except as noted in history and below Musculoskeletal Reports: back pain PFSH PFSH Medical History Fixation hardware in spine ?Z96.7 - Presence of other bone and tendon implants (ICD-10) Fusion of lumbar spine ?M43.26 - Fusion of spine, lumbar region (ICD-10) Pulmonary embolism ?I26.99 - Other pulmonary embolism without acute cor pulmonale (ICD-10) Generalized weakness ?R53.1 - Weakness (ICD-10) Meds Home Medications and Allergies Home Medications ?Medication ?Instructions ?Recorded ?Confirmed ?Type acetaminophen 325 mg tablet 325 mg PO Q6H PRN pain 09/06/22 04/19/24 History (Tylenol) albuterol sulfate 90 mcg/actuation 2 puff inhalation Q4H PRN 09/06/22 04/19/24 History aerosol inhaler shortness of breath or wheezing apixaban 5 mg tablet (Eliquis) 5 mg PO Q12H 09/06/22 04/19/24 History atorvastatin 40 mg tablet 40 mg PO QDAY 09/06/22 04/19/24 History baclofen 10 mg tablet 10 mg PO QDAY 09/06/22 04/19/24 History furosemide 20 mg tablet 20 mg PO QDAY 09/06/22 04/19/24 History lisinopril 20 mg tablet 20 mg PO QDAY 09/06/22 04/19/24 History metoprolol tartrate 25 mg tablet 25 mg PO Q12H 09/06/22 04/19/24 History omeprazole 40 mg capsule,delayed 40 mg PO QDAY 09/06/22 04/19/24 History release oxybutynin chloride 10 mg 10 mg PO QDAY 09/06/22 04/19/24 History tablet,extended release 24 hr potassium chloride 10 mEq 10 meq PO QDAY 09/06/22 04/19/24 History tablet,extended release docusate sodium 100 mg capsule 100 mg PO BID 11/08/22 04/19/24 History oxycodone-acetaminophen 5 mg-325 1 tab PO BID PRN pain #60 tabs 03/03/24 04/19/24 Rx mg tablet (Percocet) nortriptyline 25 mg capsule 25 mg PO DAILY #30 caps 04/07/24 04/19/24 Rx Allergies Allergy/AdvReac Type Severity Reaction Status Date / Time No Known Drug Allergies Allergy Verified 04/19/24 08:57 Exam Constitutional Documenting provider has reviewed patient's vital signs: yes Common normals: no apparent distress, oriented x3, healthy appearing, alert and well nourished General appearance: cooperative [facility] Common normals: normocephalic, hearing grossly normal bilaterally and moist oral mucous membranes Head and scalp: normocephalic Eye Common normals: PERRL Pupil: PERRL Neck & C-Spine Common normals: full ROM General: normal visual inspection Chest Common normals: inspection of chest normal Respiratory Common normals: normal respiratory effort, no retractions and no use of accessory muscles Back & Pelvis Lumbar spine/lower back: ROM limited, pain with ROM and straight leg raise negative bilaterally Other: sensation intact BLE strength 5/5 in BLE facet loading positive pain over L2-4 facets Extremity Common normals: normal to inspection and full ROM Neuro Common normals: oriented x3, CN's II-XII intact bilaterally, moves all extremities, no focal motor deficits, no sensory deficits noted and deep tendon reflexes 2+ bilaterally Sensorium/orientation: alert Motor exam: strength 5/5 throughout and no movement abnormalities noted Psych Common normals: mental status grossly normal, thought process normal, cooperative, affect normal, speech normal and activity/motor behavior normal Speech: normal speech Thought process: normal thought process Results Additional Findings Additional findings: If on a controlled substance or opioids, I have checked an [place] report on this patient and there are no aberrancies noted in the prescribing history.??If on a controlled substance or opioid a drug screen was completed and reviewed within the last year, and if there has not been a drug screen completed we ordered one today to monitor higher risk, state monitored pain medication use. As part of providing excellent, safe, comprehensive care, the following was completed at our patient's visit: 1. A medication reconciliation and review to ensure accurate knowledge of current/active medications, including asking our patients to inform us about any [id number] medications or herbal remedies/nutritional supplements/alternative remedies. 2. A review to specifically ensure our patients have had annual screening for screening for depression, screening for tobacco use, and screening for unhealthy alcohol use. For concerning screenings had a discussion with the patient, provided patient education, and recommended follow-up with primary care provider when appropriate. If patient noted with a risk of falling, they received education on strength, gait, and balance training to prevent future risk of falling. Portions of this note may have been carried over from the previous visit and updated as appropriate. Please note this office utilizes paper charting in addition to the electronic medical record. A list of current medications, vitals, and PMH is available there as the clinical staff outside of myself do not have access to [employer] charting during the clinic day operations. As part of providing quality comprehensive care the current medications, vitals, and PMH were reviewed in the paper chart. Assessment and Plan Assessment and Plan (1) Lumbar spondylosis: Assessment and Plan: The patient has had over 3 months of moderate to severe low back pain with functional impairment and inadequate response to conservative care including NSAIDS (unless there are contraindication such as concurrent blood thinners), multiple oral or topical pain medications, and home exercise program/physical therapy.? Patient has completed >6 weeks of guided home exercise program and/or formal physical therapy program without relief of their symptoms.? We discussed the risks and benefits of the procedure with the patient, and we are NOT planning on using sedation as outlined in the guidelines from Medicare unless there is a documented reason that sedation would be strongly recommended.?? ?The procedure will be completed with fluroscopic guidance.? (2) Chronic use of opiate for therapeutic purpose: (3) Failed back syndrome: (4) Lumbar stenosis with neurogenic claudication: Assessment and Plan: >50% improvement from prior caudal BRIAN ongoing (5) Encounter for long-term use of opiate analgesic: Plan bilateral L2,3 L3,4 facet medial branch block x2 working towards RFA for axial facet mediated low back pain continue HEP as tolerated continue current medications f/u after each injection
== END 2024-04-22 12:36 | disposition home or self-care (01) ==
LOC: PM 12:36
PROVIDERS: PCP Family Medicine; Visit Provider Nurse Practitioner
DX: M47.816 Spondylosis without myelopathy or radiculopathy, lumbar region (principal); Z79.891 Long term (current) use of opiate analgesic; M96.1 Postlaminectomy syndrome, not elsewhere classified; M48.062 Spinal stenosis, lumbar region with neurogenic claudication
CPT/HCPCS: G0463

== ENCOUNTER 2024-05-03 08:51 | Day surgery (SDC) | payer MEDICARE, SELFPAY ==
[2024-05-03 09:15] VITALS: BP 127/89; PULSE 68; TEMP 36.2; O2SAT 95
[2024-05-03 09:50] VITALS: BP 124/65; PULSE 67; O2SAT 93
[2024-05-03] MEDS: BUPIVACAINE HCL 0.25% PF 25 MG/10 ML VIAL 8 ML INJ (09:53)
[2024-05-03] MEDS: LIDOCAINE HCL 2% 400 MG/20 ML MDV INJ (09:53)
[2024-05-03 09:54] VITALS: BP 124/67; PULSE 67; O2SAT 97
--- NOTE | 2024-05-03 09:57 | W.PM.PROCNOT ---
Date of procedure: 05/03/24 Pre-op diagnosis: Pain due to lumbar spondylosis without myelopathy Post-op diagnosis: same as pre-op Procedure: Procedure: Bilateral L2-3, L3-4 medial branch block Medications: Bupivacaine 0.25% 6cc The patient was seen and examined in the preoperative holding area.? An informed consent was obtained and placed on the chart.? The patient was brought to the medical procedure unit and placed in the prone position.? A timeout was completed verifying correct patient, procedure site, positioning, plan, and special equipment.? Using aseptic technique, the needle was placed at left L2. Under direct fluoroscopic visualization a Quincke-tipped spinal needle was advanced to the junction of the superior articulating process with the transverse process at the designated medial branch segment.? Preceded by negative aspiration, the above-mentioned injectate was placed in 1 mL aliquots.? The procedure was repeated at left L3, 4.? The needle was removed and insertion site was covered. The same procedure, at the same levels, was completed on the right side. The patient was taken to the postprocedural recovery area and monitored for an appropriate length of time before found suitable for discharge in the company of a responsible adult. Anesthesia: Local Surgeon: Maribell Leigh Pathology: none sent Condition: stable Disposition: no change
== END 2024-05-03 10:02 | disposition home or self-care (01) ==
PROVIDERS: PCP Family Medicine; Visit Provider Anesthesiology
DX: M47.816 Spondylosis without myelopathy or radiculopathy, lumbar region (principal)
CPT/HCPCS: 64493; 64494; J0665

== ENCOUNTER 2024-05-05 12:11 | Outpatient (OUT) | payer MEDICARE, SELFPAY ==
--- OUTSIDE RECORDS SUMMARY | 2024-05-05 12:15 | XMS_ITS | CCD ---
Author Organization [facility] Care Team Providers Care [employer] Name Role Phone Jean Nicholson Christophe Unavailable Unavailable Unavailable Julian Matthews Unavailable [phone] Bianka Garcia Unavailable Danna Mcdaniel Unavailable Radames Witt Unavailable PASTOR .LAUREN Consulting Unavailable JUAN, KATHERINE Primary Care Unavailable ANDERSON ., DR LORENA Dunham Attending Unavailable ANDERSON ., DR LORENA Dunham Admitting Unavailable BAUMANN .LAUREN Consulting Unavailable JEAN NICHOLSON Primary Care Unavailable ANDERSON ., DR LORENA Dunham Attending Unavailable ANDERSON ., DR LORENA Dunham Admitting Unavailable JUAN, KATHERINE Primary Care Unavailable LAKSHMIPATHY ., NARENDTOM Attending Aracely vailable LAKSHMIPATHY ., NARENDRANATH Admitting Aracely vailable HOY ., DR MORALES Consulting Unavailable JUAN, KATHERINE Primary Care Unavailable HOY ., DR MORALES Attending Unavailable HOY ., DR MORALES Admitting Unavailable ZIEBER, DR BRITANY Calabrese Consulting Unavailable ZIEBER, DR BRITANY Calabrese Consulting Unavailable [...] SALOMÓN, DR IRAIS Ramos Consulting Unavailable JUAN, KATHERNIE Primary Care Unavailable JUAN, KATHERINE Attending Unavailable [...] Cecilio Harman Attending Aracely vailable Millicent, Dr. Radames Fabian Primary Care Unavail able Lyla, Dr. Cecilio Harman Referring Aracely vailable Lyla, Dr. Cecilio Harman Attending Aracely vailable Radames Witt Unavailable Curtis Meléndez Unavailable Cayden Flores Unavailable Unavailable Cecilio Go Unavailable Dr. Radames Witt Primary Care Unavail able Ángela, Dr. Curtis Keys Attending Leonor Meléndez, Dr. Curtis Keys Attending Leonor Witt, Dr. Radames Fabian Primary Care Unavail able Millicent, Dr. Radames Fabian Primary Care Unavail able Ángela, Dr. Curtis Keys Attending Leonor Meléndez, Dr. Curtis Keys Attending Leonor Witt, Dr. Radames Fabian Primary Care Unavail able Millicent, Dr. Radames Fabian Primary Care Unavail able Ángela, Dr. Curtis Keys Attending Leonor Go, Dr. Cecilio Harman Attending Aracely vailamk Witt, Dr. Radames Fabian Primary Care Unavail able Ángela, Dr. Curtis Keys Attending Leonor Meléndez, Dr. Curtis Keys Admitting Leonor Witt, Dr. Radames Fabian Referring Unavail able Millicent, Dr. Radames Fabian Primary Care Unavail able Radames Witt Primary Care Physician Radames Witt MD Primary Care Provider [phone] MD Jean Nicholson Primary Care Provider Violeta NON GARMENT SEWING MACHINE OPERATORTodd Clay Attending Provider MD Radames Witt Primary Care Provider [phone] MD Radames Witt Primary Care Provider [phone] EDEL Garcia Attending Provider Bianka Garcia Attending Unavailable Bianka Garcia Admitting Unavailable Radames Witt Primary Care Unavailable Violeta, Danna Attending Unavailable Violeta, Danna Admitting Unavailable Radames Witt Primary Care Unavailable Violeta, Danna Admitting Unavailable Jean Nicholson Primary Care Unavailable Violeta, Danna Attending Unavailable CURTIS MELÉNDEZ Attending Unavailable RADAMES WITT Primary Care Unavailable CURTIS MELÉNDEZ Referring Unavailable RADAMES WITT Primary Care Unavailable CURTIS MELÉNDEZ Attending Unavailable CECILIO GO Referring Unavailable RADAMES WITT Primary Care Unavailable CURTIS MELÉNDEZ Referring Unavailable RADAMES WITT Primary Care Unavailable CURTIS MELÉNDEZ Attending Unavailable RADAMES WITT Primary Care Unavailable CURTIS MELÉNDEZ Referring Unavailable RADAMES WITT Primary Care Unavailable Marino SPEAR Attending Unavailable Marino SPEAR Attending Unavailable ALAN HURST Attending Unavailable Marino SPEAR Admitting Unavailable Marino SPEAR Attending Unavailable ALAN HURST Attending Unavailable ALAN HURST Attending Unavailable CECILIO GO Attending Unavailable CECILIO GO Referring Unavailable RADAMES WITT Primary Care Unavailable Maribell Leigh MD Attending Unavailable Reese JIMENEZ, Maribell Boland Attending Unavailable Reese JIMENEZ, Maribell Boland Attending Unavailable Allergies Allergy Classification Reported Allergen(s) Allergy Type Date of Onset Reaction(s) Facility Nitrate Vasodilator (1 source) Nitroglycerin Drug Allergy 4 Unresponsive [facility] (20 sources) Nitroglycerin; Translations: [nitroglycerin] Drug Allergy 2 Other [facility] (9 sources) Nitroglycerin Drug Allergy Unknown [facility] Other (1 source) Aminolevulinic Acid Drug Allergy [facility] (2 sources) Nitroglycerin Drug Allergy 2 [facility] Medications Current Medications Medication Drug [...] 1:00am Start: 07-16-2021 End: 04-09-2023 take 1 mg by mouth twice daily Eliquis 5 mg oral table t mg tab(s), Oral, BID, Refills(s) 0 Start Date: 12/21/21 Status: Ordered atorvastatin 40 mg oral tablet (20 sources) HMG-CoA Reductase Inhibitor Start: 07-16-2021 atorvastatin 40 mg T ab Refills(s) 0 Start Date: 12/23/22 Status: Ordered Baclofen (18 sources) gamma-Aminobutyric Acid-ergic Agonist Start: 12-23-2022 BACLOFEN 10MG TAB [...] Diuretic Start: 12-18-2020 End: 11-05-2024 take 1 mg by mouth once daily furosemide 20 mg Tab mg tab(s), Oral, Daily, Refills(s) 0 Start Date: 12/18/20 Status: Ordered lisinopril 20 mg oral tablet (20 sources) Angiotensin Converting Enzyme Inhibitor Start: 12-18-2020 take 1 mg by mouth once daily lisinopril 20 mg Tab mg tab(s), Oral, Daily, Refills(s) 0 Start Date: 12/18/20 Status: Ordered melatonin 10 mg extended release oral tablet (4 sources) Melatonin 10 MG as directed Orally Active metoprolol tartrate 25 mg oral tablet (20 sources) beta-Adrenergic Sushant Start: 02-06-2021 End: 11-05-2024 Lopressor 25 mg oral tablet Refills(s) 0 Start Date: 12/23/22 Status: Ordered take 1 tablet by siobhan th every [...] capsule (20 sources) Tricyclic Antidepressant Start: 01-30-20 nortriptyline 25 mg Cap Refills(s) 0 Start Date: 12/23/22 Status: Ordered omeprazole 40 mg delayed release oral capsule [...] tablet (20 sources) Cholinergic Muscarinic Antagonist Start: 03-01-2024 End: 03-24-2025 take 1 tablet by mouth once daily oxybutynin 10 mg ER Tab 10 mg = 1 tab(s), Oral, Daily, X 90 day(s), # 90 tab(s), Refills(s) 3, Pharmacy: [facility]/pharmacy #[id number], 175, cm, 03/29/24 12:01:00 EST, Height/Length Dosing, 87.6, kg, 03/29/24 12:01:00 EST, Weight Dosing Start Date: 03/29/24 Stop Date: 03/24/25 Status: Ordered Start: 12-18-2020 take 1 tablet by siobhan th once daily oxybutynin XL (Ditropan-XL) 10 mg 24 hr tablet Take 1 tablet (10 mg) by mouth once daily. 12/18/2020 Active potassium chloride 10 meq oral tablet (20 sources) Start: 12-18-2020 take 1 tablet by mouth twice daily potassium chloride 10 mEq ER Tab mEq tab(s), Oral, BID, Refills(s) 0 Start Date: 12/18/20 Status: Ordered Start: 10-24-2020 take 1 tablet by siobhan th once daily potassium chloride CR 10 mEq ER tablet Indications: Other oil heaterman (current) drug therapy TAKE 1 TABLET BY MOUTH EVERY DAY 90 tablet 3 04/11/2023 Active sildenafil 50 mg oral tablet (1 source) Phosphodiesterase 5 Inhibitor Start: 03-29-2024 Viagra 50 mg Tab See Instructions, 1-2 tabs po 1 hr before sexual activity. Do not exceed 2 tabs/100mg in 24 hrs., # 20 tab(s), Refills(s) 2, Pharmacy: [facility]/pharmacy #[id number], 175, cm, 03/29/24 12:01:00 EST, Height/Length Dosing, 87.6, kg, 03/29/24 12:01:00 EST, Weight Dosing Start Date: 03/29/24 Status: Ordered temazepam 30 mg oral capsule (20 sources) [...] Ordered traZODone hydrochloride 50 mg oral tablet (4 sources) Serotonin Reuptake Inhibitor Start: 12-23-2022 traZODONE 50 [...] Onset: 11-07-2022 11-05-2022 Episodic Acute myocardial infarction (4 sources) Myocardial infarction 09-12-2018 Chronic Aortic; peripheral; and visceral artery aneurysms (20 sources) Abdominal aortic aneurysm; Translations: [Abdominal aneurysm without mention of rupture] Onset: 08-15-2021 Resolved: 08-15-2021 Chronic Asthma (1 source) Asthma; Translations: [Unspecified asthma, uncomplicated] 11-04-2023 Chronic Cancer of prostate (5 sources) Malignant neoplasm of prostate; Translations: [Malignant tumor of prostate] Onset: 12-23-2022 Chronic Cancer of prostate (10 sources) Personal history of malignant neoplasm of [...] disease (1 source) Atherosclerotic heart disease of [place] coronary artery without angina pectoris; Translations: [ASHD [place] CA W/O ANGINA PECTORIS] Onset: 07-17-2021 Chronic [...] 07-14-2021 Chronic Genitourinary symptoms and ill-defined conditions (8 sources) Male urinary stress incontinence; Translations: [Nocturnal enuresis] 09-12-2018 Chronic Genitourinary symptoms and ill-defined conditions (10 sources) Urgent desire to urinate; Translations: [Urgency of urination] Onset: 12-23-2022 Episodic Heart valve disorders (20 sources) Mitral valve regurgitation; Translations: [Mitral valve disorders] Onset: 11-07-2022 11-07-2022 Chronic Comment on above: mild/moderate; Hypertension with complications and secondary hypertension (5 sources) Hypertensive heart disease with heart failure; Translations: [Hypertensive chronic kidney disease with stage 1 through stage 4 chronic kidney disease, or unspecified chronic kidney disease] Onset: 07-17-2021 Chronic Osteoarthritis (4 sources) Arthritis 09-12-2018 Chronic Other acquired deformities (1 source) Spondylolisthesis, lumbar region; Translations: [Spondylolisthesis, lumbar region] Onset: 11-19-2022 Episodic Other aftercare (14 sources) Drug therapy finding; Translations: [Long-term (current) use of other medications] Episodic Other aftercare (2 sources) intermediate (current) use of anticoagulants; Translations: [VICE PRESIDENT FINANCIAL CURRNT USE ANTICOAGULANTS] Onset: 11-29-2021 Episodic Other [...] Resolved: 08-21-2021 Chronic Other lower respiratory disease (7 sources) Pulmonary fibrosis, unspecified; Translations: [Postinflammatory pulmonary fibrosis] Onset: 11-07-2022 04-09-2023 Chronic Other lower respiratory disease (4 sources) Interstitial lung disease; Translations: [Interstitial pulmonary disease, unspecified] 04-09-2023 Chronic Other lower respiratory disease (20 sources) History of chronic obstructive airway disease; Translations: [Personal history of other diseases of respiratory system] Resolved: 02-06-2021 09-12-2018 Episodic Other lower respiratory disease (2 sources) Dyspnea, unspecified; Translations: [Dyspnea R06.00] Onset: 11-30-2020 Resolved: 11-30-2020 Episodic Other male genital disorders (4 sources) Impotence 07-26-2019 Chronic Other male genital disorders (1 source) Male erectile dysfunction, unspecified; Translations: [Erectile dysfunction] Onset: 03-29-2024 Chronic Other nervous system disorders (1 source) [...] nutritional; endocrine; and metabolic disorders (2 sources) Other obesity due to excess calories; Translations: [Other obesity due to excess calories] Onset: 11-07-2022 Chronic Other nutritional; endocrine; and [...] cor pulmonale] Onset: 08-15-2021 Resolved: 08-15-2021 Chronic Residual codes; unclassified (10 sources) Sleep apnea; Translations: [Sleep apnea, unspecified] 11-04-2023 Chronic Residual codes; unclassified (1 source) Sleep apnea, unspecified; Translations: [Sleep apnea G47.30] Onset: 11-30-2020 Resolved: 11-30-2020 Chronic Residual codes; unclassified (1 source) Obstructive sleep apnea (adult) (pediatric); Translations: [OBSTRUCTIVE SLEEP APNEA] Onset: 07-17-2021 Chronic Screening and history of mental health and substance abuse codes (20 sources) Ex-smoker; Translations: [Personal history of tobacco use] 07-26-2019 Episodic Spondylosis; intervertebral disc disorders; other back problems (15 sources) Spondylosis without myelopathy or radiculopathy, lumbar region; Translations: [Other intervertebral disc degeneration, lumbar region] Onset: 05-17-2022 11-07-2022 Chronic Substance-related disorders (1 source) Nicotine dependence, cigarettes, [...] Translations: [Low back pain, unspecified] Onset: 06-03-2023 Unclassified (1 source) Abdominal aortic aneurysm, without rupture, unspecified (CMS-HCC); Translations: [Abdominal aortic aneurysm, without rupture, unspecified (CMS-HCC)] Onset: 11-07-2022 Unclassified (1 source) Obesity, class 1; Translations: [Obesity, class 1] Onset: 11-07-2022 Past or Other Problems Problem Classification Problem Date Documented Date Episodic/Chronic Cardiac dysrhythmias (20 sources) Sinus tachycardia; Translations: [Other specified cardiac dysrhythmias] Onset: 11-07-2022 11-07-2022 Episodic Hyperplasia of prostate (4 sources) Benign prostatic hypertrophy with outflow obstruction Resolved: 09-12-2018 11-23-2018 Chronic Nonspecific chest pain (3 sources) Other chest pain; Translations: [OTHER CHEST PAIN] Onset: 07-14-2021 Episodic Other aftercare (1 source) Other fpc (current) drug therapy; Translations: [OTH RESIDENTIAL CURRENT DRUG THERAPY] Onset: 07-17-2021 Episodic Other circulatory disease (2 sources) Other specified symptoms and signs involving the circulatory and respiratory systems; Translations: [Other specified symptoms and signs involving the circulatory and respiratory systems] Onset: 11-07-2022 Episodic Other connective tissue disease (1 [...] electrocardiogram [ECG] [EKG]] Onset: 11-07-2022 11-07-2022 Episodic Pulmonary heart disease (20 sources) Pulmonary embolism; Translations: [Other pulmonary embolism and infarction] Onset: 07-17-2021 07-14-2021 Episodic Spondylosis; intervertebral disc disorders; other back problems (20 sources) Dorsalgia, unspecified; Translations: [Intervertebral disc disorders with radiculopathy, lumbar region] Onset: 09-04-2021 Episodic Unclassified (2 sources) LOW BACK PAIN, UNSPECIFIED; Translations: [LOW BACK PAIN, UNSPECIFIED] Onset: 05-09-2022 Unclassified (1 source) Abdominal aortic aneurysm (AAA) without rupture, unspecified part I71.40 Unclassified (7 sources) Onset: 12-09-2022 Resolved: 01-08-2024 12-09-2022 Unclassified (1 source) Abdominal aortic aneurysm, without rupture, unspecified (CMS-HCC); Translations: [Abdominal aortic aneurysm, without rupture, unspecified (CMS-HCC)] Onset: 01-08-2024 Unclassified (1 source) Obesity, class 1; Translations: [Obesity, class 1] Onset: 01-08-2024 Results Test Name Value Interpretation Reference Range Facility Urology Office/Clinic Noteon 03-29-2024 Urology Office/Clinic Note Urology Office/Clinic Note Chief Complaint 1 yr f/u w/ PSA HPI Staff 68yr old male pt here for 1yr f/u with PSA. S/p prostatectomy 03/21/16 Previous Dx: prostate cancer, urgency of urination *Oxybutynin ER 10mg qd, pt needs refill PSA 07/22/19 - <0.05 04/26/20 - <0.05 10/05/20 - <0.05 12/20/21 - <0.13 12/21/22 - <0.13 03/22/24 - <0.1 Dysuria: _no Incomplete bladder emptying: _no Hematuria: _no Frequency: _q3-4 hrs Urgency: _rarely Nocturia: _1x Stream: _weak, stop and go Leaking: _no Post void dripping: _no Wearing pads/ Depends: _no Urge incontinence: _no Stress incontinence: _no Incontinence without Sensory Awareness: _no Abdominal pain: _no Flank pain: _no Sexual complaints: _ Review of Systems PHQ Score Initial Depression Screen Score: 0 SCORE no fevers Physical Exam Vitals & Measurements HR: 88(Peripheral) BP: 138/86 HT: 69 in HT: 175 cm WT: 87.6 kg WT: 193.125 lb BMI: 28.6 nontoxic Assessment/Plan 1. Urgency of urination (R39.15: Urgency of urination) Pt is taking __Oxybutynin 10mg ER and is _ with overall symptom control. IPSS 10 QOL 2 Current side effects: none Today we discussed the following options: Decrease dose yes, this was discussed Increase dose yes, this was discussed Discontinue med and switch to alternative no, this was not discussed Pt has elected to: stay on same medication at same dose. Risks, benefits, side effects discussed. Refills sent. Ordered: E&M of Est. Patient Moderate 30-39 Min 53329 Urnls Dip Stick Auto w/o Microscopy POC 79260 2. H/O prostate cancer (Z85.46: Personal history of malignant neoplasm of prostate) Sp prostatectomy Feb 2016 by PRW. pre-op PSA around 3 (6 on Finasteride). Laverne 3+4=7, 5% of one lobe. Neg SV, Neg margins, Neg nodes x 8. PSA 07/22/19 - <0.05 04/26/20 - <0.05 10/05/20 - <0.05 12/20/21 - <0.13 12/21/22 - <0.13 03/22/24 - <0.1 PSA low and stable. Check in 1 yr. Ordered: E&M of Est. Patient Moderate 30-39 Min 90752 PSA Total 3. ED (erectile dysfunction) (N52.9: Male erectile dysfunction, unspecified) Pt has issues achieving erection no, firmness no, maintaining erection yes, reaching climax yes States he is able to achieve satisfactory erection but cannot maintain. ROB 1 (no sexual activity in past 6 mos). Pt has tried: vacuum device no, oral medications no Today we discussed all treatment options for ED including oral medications, erectile pumps, intracorporeal injection, and surgical options. We reviewed all of his contributing factors including those that are within his control to change and those which are not. Pt has decided that he would like to try oral medications - risks/benefits, side effects,interactions, and proper use discussed Plan was to start sildenafil 50mg 1-2 tabs PRN. Pt to call if not effective. If workin well and no intolerable side effects, he can f/u in 1 yr. Pt told me no hx heart issues/HI. Has nitro on allergy list, so we know he's not on this. However after he left I reviewed his chart and problem list says he DOES have hx HI. Will contact pharmacy and cancel sildenafil rx for now. Staff to clarify cardiac hx w pt. If sees metrology specialist, we will need to get clearance from them that his heart is healthy enough for sex/ED med. If no metrology specialist, will need clearance from PCP. Orders: oxybutynin, 10 mg = 1 tab(s), Oral, Daily, X 90 day(s), # 90 tab(s), Refills(s) 3, Pharmacy: [facility]/pharmacy #[id number], 175, cm, 03/29/24 12:01:00 EST, Height/Length Dosing, 87.6, kg, 03/29/24 12:01:00 EST, Weight Dosing sildenafil, See Instructions, 1-2 tabs po 1 hr before sexual activity. Do not exceed 2 tabs/100mg in 24 hrs., # 20 tab(s), Refills(s) 2, Pharmacy: [facility]/pharmacy #[id number], 175, cm, 03/29/24 12:01:00 EST, Height/Length Dosing, 87.6, kg, 03/29/24 12:01:00 EST, Weight Do... Follow-up With When Contact Information ALAN HURST PA-C, URL In 1 year [address] [place] [address] Additional Instructions: Patient Education Erectile Dysfunction Problem List/Past Medical History Ongoing Arthritis ED [...] oral tablet nortriptyline 25 mg Cap omeprazole, O (more content not included)... Normal [facility] Comment on above: Result Comment: Elec tronically Signed By: ALAN HURST PA-C\.br\Date and Time Signed: 03/29/24 12:28 EST PSA Totalon 03-23-2024 Prostate specific Ag [Mass/Vol] ng/mL Low 0.1-3.5 [facility] Comment on above: Result Comment: The concentration of PSA determined by different manufacturers can vary due to differences in assay methods and reagent specificity. Values obtained from different assay methods cannot be used interchangeably. The methodology used for this result was chemiluminescence using [employer] Access Hybritech PSA reagent. Performed By: #### [id number] #### [facility] [address] [place] [address] Provider Letteron 03-03-2024 Provider Letter Provider Letter March 03, 2024 ERIK MORALES [address] [place] [id number] : 1955 Dear Erik Morales, We have been trying to reach you with no success. It is important that you return our call regarding a follow up appointment upon receiving this letter. Also, at the time of your call, please provide us with your current information. Thank you for your prompt attention to this matter. Sincerely, [facility] [place] [address] [facility] XR LUMBAR SPINE 2-3 VIEWSon 11-11-2023 XR LUMBAR SPINE 2-3 VIEWS Interpreted By: Curtis Meléndez, STUDY: XR LUMBAR SPINE 2-3 VIEWS; 11/11/2023 8:52 am INDICATION: Signs/Symptoms:pain. ACCESSION NUMBER(S): [id number] ORDERING CLINICIAN: CURTIS MELÉNDEZ FINDINGS: AP lateral [...] Curtis Meléndez 11/11/2023 9:36 AM Dictation workstation: [id number] [facility] XR Lumbar spine 2 or 3 Views on 11-11-2023 Interpreted By: Curtis Love, STUDY: XR LUMBAR SPINE 2-3 VIEWS; 11/11/2023 8:52 am INDICATION: Signs/Symptoms:pain. ACCESSION NUMBER(S): [id number] ORDERING CLINICIAN: CURTIS MELÉNDEZ FINDINGS: AP lateral [...] Curtis Meléndez 11/11/2023 9:36 AM Dictation workstation: [id number] Curtis Meléndez MD - 11/11/2023 Interpreted By: Curtis Meléndez, STUDY: XR LUMBAR SPINE 2-3 VIEWS; 11/11/2023 8:52 am INDICATION: Signs/Symptoms:pain. ACCESSION NUMBER(S): [id number] ORDERING CLINICIAN: CURTIS MELÉNDEZ FINDINGS: AP lateral [...] Curtis Meléndez 11/11/2023 9:36 AM Dictation workstation: [id number] [facility] Work Phone: Radiology Study observation (narrative) [facility] Work Phone: XR Lumbar spine 2 or 3 Views Ordered By: Curtis Meléndez on 11-11-2023 [facility] Work Phone: US aortaon 08-21-2023 US aorta [facility] [address] [place] [address] Ultrasound Report Signed Patient: Erik Morales MR#: [id number] : 1955 Acct:[id number] Age/Sex: 67 / M ADM Date: 08/21/23 Loc: [facility] Room: Type: [facility] Attending Dr: Bianka Garcia METAL TRIMMER-C Ordering Provider: Bianka Garcia APRN Date of Service: 08/21/23 US/US aorta: I71.4 Copies to: Bianka Garcia APRN ULTRASOUND OF THE ABDOMINAL AORTA: CLINICAL INFORMATION: [place] aortic aneurysm. COMPARISON : 3.4 cm infrarenal [...] MD08/21/2023 2:21 PM Dictation Location: [place] [address] Tech: Elham Rivera Transcribed By: LUIS 08/21/23 1421 Dictated By: Julian Matthews MD 08/21/23 1419 Signed By: 08/21/23 1421 [facility] XR LUMBAR SPINE 2-3 VIEWSon 06-03-2023 XR LUMBAR SPINE 2-3 VIEWS Interpreted By: Curtis Meléndez, STUDY: XR LUMBAR SPINE 2-3 VIEWS; 06/03/2023 1:42 pm INDICATION: Signs/Symptoms:pain. ACCESSION NUMBER(S): [id number] ORDERING CLINICIAN: CURTIS MELÉNDEZ FINDINGS: AP lateral [...] Curtis Meléndez 06/03/2023 1:56 PM Dictation workstation: [id number] [facility] XR Lumbar spine 2 or 3 Views on 06-03-2023 Interpreted By: Curtis Love, STUDY: XR LUMBAR SPINE 2-3 VIEWS; 06/03/2023 1:42 pm INDICATION: Signs/Symptoms:pain. ACCESSION NUMBER(S): [id number] ORDERING CLINICIAN: CURTIS MELÉNDEZ FINDINGS: AP lateral [...] Curtis Meléndez 06/03/2023 1:56 PM Dictation workstation: [id number] Curtis Wise MD - 06/03/2023 Interpreted By: Curtis Meléndez, STUDY: XR LUMBAR SPINE 2-3 VIEWS; 06/03/2023 1:42 pm INDICATION: Signs/Symptoms:pain. ACCESSION NUMBER(S): [id number] ORDERING CLINICIAN: CURTIS MELÉNDEZ FINDINGS: AP lateral [...] Curtis Meléndez 06/03/2023 1:56 PM Dictation workstation: [id number] [facility] Work Phone: [facility] Work Phone: Radiology Study observation (narrative) [facility] Work Phone: CT chest wo con high reson 0 04-15-2023 CT chest wo con high res [facility] [place] [address] [place] [address] CT Scan Report Signed Patient: Erik Morales MR#: [id number] : 1955 Acct:[id number] Age/Sex: 67 / M ADM Date: 04/14/23 Loc: CT Room: Type: [facility] CLI Attending Dr: ISATU Gomez APRN Copies [...] Christopher Cline M.D.04/15/2023 9:21 AM Dictation Location: [place] [address] Transcribed By: [facility] 04/15/23 0921 Dictated By: Christopher Cline DO 04/15/2304 Signed By: 04/15/[address] [facility] XR LUMBAR SPINE 2-3 VIEWSon 02-28-2023 XR LUMBAR SPINE 2-3 VIEWS Interpreted By: Curtis Meléndez, STUDY: XR LUMBAR SPINE 2-3 VIEWS; ; 02/28/2023 1:37 pm INDICATION: Signs/Symptoms:low back pain. ACCESSION NUMBER(S): [id number] ORDERING CLINICIAN: CURTIS MELÉNDEZ FINDINGS: AP lateral [...] Curtis Meléndez 02/28/2023 3:09 PM Dictation workstation: [id number] [facility] Post Op (Orthopaedic Surgery )on 11-19-2022 Post Op (Orthopaedic Surgery) Orders Back pain Xray BN Spine, Lumbosacral; 2 or 3 Views; Status:Complete; Done: [id number] 02:21PM Radiologist to Determine Optimal Study : [...] Xray BN Spine, Lumbosacral; 2 or 3 [id number] 02:21PMCurtis Meléndez Test NameResultFlagReference Xray Lumbar Spine AP + Lateral(Report) FINAL REPORT Interpreted by: CURTIS MELÉNDEZ JON, MD 11/19/22 16:41 Patient Name: ERIK MORALES STUDY: SPINE, LUMBOSACRAL; 2 OR 3 VIEWS; ; 11/19/2022 2:21 pm INDICATION: pain M54.9: Back pain. ACCESSION NUMBER(S): [id number] ORDERING CLINICIAN: CURTIS MELÉNDEZ FINDINGS: AP lateral x-rays of the lumbar spine show an L3-4 lateral lumbar fusion with lateral plate and cage configuration. Cage pl (more content not included)... Normal [facility] 11-19-2022 XR Lumbar spine AP and Lateral Normal [facility] Work Phone: SPINE, LUMBOSACRAL 2 OR 3 EWSon 11-19-2022 SPINE, LUMBOSACRAL 2 OR 3 VIEWS Patient Name: ERIK MORALES STUDY: SPINE, LUMBOSACRAL; 2 OR 3 VIEWS; ; 11/19/2022 2:21 pm INDICATION: pain M54.9: Back pain. ACCESSION NUMBER(S): [id number] ORDERING CLINICIAN: CURTIS MELÉNDEZ FINDINGS: AP lateral [...] Electronically signed by: CURTIS MELÉNDEZ MD Normal [facility] BASIC METABOLIC PANELon 10-25 Anion gap [Moles/Vol] 10 mmol/L Normal 10 - 20 [facility] Comment on above: Performed By: #### B MP #### [address] [id number] Calcium [Mass/Vol] 8.9 mg/dL Normal 8.6 - 10.3 [facility] Comment on above: Performed By: #### B MP #### [address] [id number] Chloride [Moles/Vol] 101 mmol/L Normal 98 - 107 [facility] Comment on above: Performed By: #### B MP #### [address] [id number] Creatinine [Mass/Vol] 1.15 mg/dL Normal 0.50 - 1.30 [facility] Comment on above: Performed By: #### B MP #### [address] [id number] GFR/1.73 sq M.predicted among non-blacks MDRD (S/P/Bld) [Vol rate/Area] 70 mL/min/{1.73_m2} Normal >90 [facility] Comment on above: Result Comment: CALC ULATIONS OF ESTIMATED GFR ARE PERFORMED USING THE 2020 CKD-EPI STUDY REFIT EQUATION WITHOUT THE RACE VARIABLE FOR THE IDMS-TRACEABLE CREATININE METHODS. https://jasn.asnjournals.org/content//ASN.6066539 988 Performed By: #### B MP #### [address] [id number] Glucose [Mass/Vol] 106 mg/dL High 74 - 99 [facility] Comment on above: Performed By: #### B MP #### [address] [id number] HCO3 (Bld) [Moles/Vol] 29 mmol/L Normal 21 - 32 [facility] Comment on above: Performed By: #### B MP #### [address] [id number] Potassium [Moles/Vol] 4.5 mmol/L Normal 3.5 - 5.3 [facility] Comment on above: Performed By: #### B MP #### [address] [id number] Sodium [Moles/Vol] 135 mmol/L Low 136 - 145 [facility] Comment on above: Performed By: #### B MP #### [address] [id number] Urea nitrogen [Mass/Vol] 13 mg/dL Normal 6 - 23 [facility] Comment on above: Performed By: #### B MP #### [address] [id number] Daily Progress Note-General Internal Medicineon 11-07-2022 Daily [...] intact. Objective Data: Objective Information: T PRBPMAPSpO2 [id number]% Date/Time11/07 8: 8: 8: 8: 21: 8:56 [...] laboratory results: Basic Metabolic Panel Trending View [id number]-Ilt-1462 10:23:00 06-Nov-2022 05:48:00 Glucose, Tbgef383 H 95 NA135 L 138 K4.5 4.1 [...] discussed extensively with patient, RN and Ortho METAL TRIMMER. Patient verbalized understanding through teach back method. All questions and concerns addressed upon examination. Of note, this documentation is completed using the Velascaation system (voice recognition software). There may be spelling and/or grammatical errors that were not corrected prior to final submission. Plan of Care Reviewed With: Plan of Care Reviewed With: patient Electronic Signatures: Heidy Escobar (NON GARMENT SEWING MACHINE OPERATOR-FOOD SERVICE AIDE) (Signed 07-Nov-2022 14:59) Authored: Service, Subjective Data, Objective Data, Assessment and Plan, Note Completion Last Updated: 07-Nov-2022 14:59 by Heidy Escobar (NON GARMENT SEWING MACHINE OPERATOR-FOOD SERVICE AIDE) Normal [facility] Daily Progress Note-Orthopae ibrahimason 11-07-2022 Daily Progress Note-Orthopaedics Service: Orthopaedics Subjective Data: ERIK MORALES is a 67 year old Male who is Hospital Day # 4 and POD #3 for 1. ;2. ;3. ;4. ;5. Patient seen and examined this morning. No acute events overnight. Objective Data: Objective Information: T PRBPMAPSpO2 [id number]/4824481% Date/Time11/06 21: 21: 21: 21: 21: 21:08 [...] to home today Electronic Signatures: Gilda Mcmahon (NON GARMENT SEWING MACHINE OPERATOR-FOOD SERVICE AIDE) (Signed 07-Nov-2022 08:00) Authored: Service, Subjective Data, Objective Data, Assessment and Plan, Note Completion Abner Maldonado) (Signed 07-Nov-2022 11:31) Co-Signer: Service, Subjective Data, Objective Data, Assessment and Plan, Note Completion Last Updated: 07-Nov-2022 11:31 by Abner Maldonado) Normal [facility] Laboratory - Chemistry and C hemistry - challengeon 11-07-2022 Anion gap [Moles/Vol] 10 mmol/L 10 - 20 [facility] Work Phone: Calcium [Mass/Vol] 8.9 mg/dL 8.6 - 10.[address] [facility] Work Phone: Chloride [Moles/Vol] 101 mmol/L 98 - 107 [facility] Work Phone: CO2 [Moles/Vol] 29 mmol/L 21 - 32 [facility] Work Phone: Creatinine [Mass/Vol] 1.15 mg/dL See Below [facility] Work Phone: Comment on above: Reference Range: 0.5 0 - 1.30 Glucose [Mass/Vol] 106 mg/dL above high threshold 74 - 99 [facility] Work Phone: Potassium [Moles/Vol] 4.5 mmol/L 3.5 - 5.3 [facility] Work Phone: Sodium [Moles/Vol] 135 mmol/L below low threshold 136 - 145 [facility] Work Phone: Urea nitrogen [Mass/Vol] 13 mg/dL 6 - 23 [facility] Work Phone: No Panel Informationon 11-07 70 {mL/min/1.73m2} >90 [facility] Work Phone: Comment on above: CALCULATIONS OF MEGAN MATED GFR ARE PERFORMED USING THE 2020 CKD-EPI STUDY REFIT EQUATION WITHOUT THE RACE VARIABLE FOR THE IDMS-TRACEABLE CREATININE METHODS.https://jasn.asnjournals.org/content//ASN .7247123325 Order Reconciliationon 11-07 Order Reconciliation Page 1 Discharge Reconciliation Document Reconciliation Type: Discharge requested on behalf of Gilda Mcmahon (Advanced Practice Nurse-Admit) done by Gilda Mcmahon (NON GARMENT SEWING MACHINE OPERATOR-FOOD SERVICE AIDE) Discharge - Reconciliation: 07-Nov-2022 09:21 by: Gilda Mcmahon (NON GARMENT SEWING MACHINE OPERATOR-FOOD SERVICE AIDE) Home Medications EnteredHOME MEDICATIONS AT DISCHARGE DateReconciliation [...] oral tablet is not required Potassium Chloride (Zqn-Jihp-Qgn 10) 10 mEq oral tablet, extended release 1 tab(s) orally once a day 21-Oct-2022 13:59 Potassium Chloride (Tuz-Qurj-Nlp 10) 10 mEq oral tablet, extended release 1 tab(s) orally once a day 21-Oct-2022 13:59 Potassium Chloride (Mza-Uojl-Ghw 10) 10 mEq oral tablet, extended release is continued as Potassium Chloride (Jdb-Gfkh-Foe 10) 10 mEq oral tablet, extended release [...] Lactated Ringers (more content not included)... Normal [facility] Rehab Note-occupational therapy department chair rohit 11-07-2022 Rehab Note-occupational therapy Rehab: Info: Mode of Treatmentoccupational therapy Time IN07:31 Time OUT08:00 Total Treatment Rfcuoqf51 Patient in ... at end of sessionchair; [...] Mobility/Tone: Bed Mobility Assessment/Interventionssu pine to sit Xlrpku-uy-Kgs [place] (Bed Mobility)standby assist; verbal cues; nonverbal cues (demo/gesture) Comment, Bed MobilityEducated pt on log roll technique to maintain spinal precautions. Simulated home s/u and transferred towards right side. Transfer Assessment/Interventionssi t to stand transfer; stand to sit transfer; bed to chair transfer; toilet transfer; shower transfer Comment, TransfersMin verbal cues for hand placement with sit <>stand transfers. Bed-Chair [place] (Transfers)standby assist Bed-Chair Assistive Device (Transfers)walker, front-wheeled Sit-Stand [place] (Transfers)standby assist; Multiple sit <>stand transfers performed from various surfaces and surface heights. Pt benefits from elevated surfaces however is able to complete transfers from standard surface heights. Sit-Stand Assistive Device (Transfers)walker, front-wheeled Stand-Sit [place] (Transfers)standby assist Stand-Sit Assistive Device (Transfers)walker, front-wheeled Shower [place] (Transfers)Pt reports having shower chair at home which he has used prior to admission. Verbal education provided on safe transfer techniques. Pt also educated to have someone present with transfer for fall prevention. Toilet [place] (Transfers)standby assist Toilet Assistive Device (Transfer)grab bars/safety [...] Assessment/Interventionlow er body dressing; toileting; grooming; bathing [place] Level (Bathing)Pt educated on using a sheet finisher to complete LB bathing vs purchasing a LH sponge. Verbal and visual education provided on technique from seated position on shower chair. Pt verbalized understanding. [place] Level (Lower Body Dressing)don; pants/bottoms; shoes/slippers Assistive Devices (Lower Body Dressing)sheet finisher Comment (Lower Body Dressing)Reviewed education on use of sheet finisher. Wilfredo pants while seated EOB with fair (+) balance. Pt donned LB clothing with SBA. Educated pt on how to use sheet finisher to wilfredo slip on shoes. Pt reports brother can also assist with donning shoes. Pt educated to not walk in tedhose only, always wear shoes or non-slip socks [place] Level (Grooming)standby assist Position (Grooming)standing [place] Level (Toileting)standby assist Position (Toileting)sitting Skilled BADL Treatment/Interventionadap tive equipment training; BADL process/adaptation training; compensatory training; energy conservation Motor: Jgi-yt-Rbepf (Balance)F+ Standing, Static (Balance)F+ Standing, Dynamic (Balance)F+ [...] Score20 Short Term Goals: Functional Transfer: Established Yqdu21-Dpc-4205 Functional Transfer: Goal Detailspt will transfer to bed ,chair, toilet with modified indep Functional Transfer: Time Frame for Go (more content not included)... Normal [facility] Rehab Note-physical therapyo n 11-07-2022 Rehab Note-physical therapy Rehab: Info: Disciplinephysical therapist Mode of Treatmentphysical therapy Time IN08:16 Time OUT08:48 Total Treatment Yrstuqu88 Patient in ... at end of sessionchair; [...] brace in place. PT placed hands over wardrobe supervisor on walker to cue pt of his [...] Score18 Short Term Goals: Bed Mobility: Date Zvtdoztyvuc18-Uci-3807 Bed Mobility: [place] Level Goalmodified independent; supine <> sidelying <> sitting Transfer: Established Nhon55-Rui-8610 Transfer: Transfer Type Sdzotit-hl-rrprw/chair-to- bed; iif-bu-nqgbl/ucywx-ux-cib Transfer: [place] Level Goalmodified independent Transfer: Assistive Device Goalrolling walker Gait: Established Gait: [place] Level Goalmodified independent Gait: Assistive Device Goalrolling walker Gait: Distance Ztoo205' Education: Learnerpatient Barriers to Learningno barrier Methodverbal [...] home Outcome Summary: Predicted Duration of Therapy Vblivaaurxxl16 days Progress: Physical Therapyprogress toward functional goals as expected Therapy Frequency (PT Eval)2 times/day Predicted Duration of Therapy Cujtnoujnwkd43 days DC Recommendations: Discharge Recommendation (PT Eval)Pt would benefit from [facility] Electronic Signatures: Daniela Scott (PT) (Signed 07-Nov-2022 15:34) Co-Signer: Info, Mobility/Tone, Outcomes Tools, Short Term Goals, Education, Outcome Summary, DC Recommendations Fior Velez (SPT) (Signed 07-Nov-2022 13:43) Authored: Info, Mobility/Tone, Outcomes Tools, Short Term Goals, Education, Outcome Summary, DC Recommendations Last Updated: 07-Nov-2022 15:34 by Daniela Scott (PT) Normal [facility] BASIC METABOLIC PANELon 09- Anion gap [Moles/Vol] 9 mmol/L Low 10 - 20 [facility] Comment on above: Performed By: #### B MP #### [address] [id number] Calcium [Mass/Vol] 8.6 mg/dL Normal 8.6 - 10.3 [facility] Comment on above: Performed By: #### B MP #### [address] [id number] Chloride [Moles/Vol] 105 mmol/L Normal 98 - 107 [facility] Comment on above: Performed By: #### B MP #### [address] [id number] Creatinine [Mass/Vol] 1.37 mg/dL High 0.50 - 1.30 [facility] Comment on above: Performed By: #### B MP #### [address] [id number] GFR/1.73 sq M.predicted among non-blacks MDRD (S/P/Bld) [Vol rate/Area] 57 mL/min/{1.73_m2} Abnormal >90 [facility] Comment on above: Result Comment: CALC ULATIONS OF ESTIMATED GFR ARE PERFORMED USING THE 2020 CKD-EPI STUDY REFIT EQUATION WITHOUT THE RACE VARIABLE FOR THE IDMS-TRACEABLE CREATININE METHODS. https://jasn.asnjournals.org/content//ASN.1134022 988 Performed By: #### B MP #### [address] [id number] Glucose [Mass/Vol] 95 mg/dL Normal 74 - 99 [facility] Comment on above: Performed By: #### B MP #### [address] [id number] HCO3 (Bld) [Moles/Vol] 28 mmol/L Normal 21 - 32 [facility] Comment on above: Performed By: #### B MP #### [address] [id number] Potassium [Moles/Vol] 4.1 mmol/L Normal 3.5 - 5.3 [facility] Comment on above: Performed By: #### B MP #### [address] [id number] Sodium [Moles/Vol] 138 mmol/L Normal 136 - 145 [facility] Comment on above: Performed By: #### B MP #### [address] [id number] Urea nitrogen [Mass/Vol] 14 mg/dL Normal 6 - 23 [facility] Comment on above: Performed By: #### B MP #### [address] [id number] Daily Progress Note-General Internal Medicineon 11-06-2022 Daily [...] intact. Objective Data: Objective Information: T PRBPMAPSpO2 Value37.89899980/158140% Date/Time11/06 8: 8: 8: 8: 8: 8:18 Range(36.2C - 37.4C ) (63 - 79 ) (16 - 18 ) (104 - 132 )/ (58 - 77 ) (76 - 97 ) (94% - 96% ) Highest temp of 37.4 C was recorded at 11/05 19:08 Pain reported at 11/06 7:23: sleeping ---- Intake and Output ----- Mn/Dy/Year TimeIntakeOutputNet Nov 06, 2022 6:00 [id number] Nov 05, 2022 10:00 [id number] Nov 05, 2022 2:00 [id number] The Intake and Output Totals for the last 24 hours are: IntakeOutputNet [id number] Physical Exam Narrative: Physical Exam: Constitutional: awake/alert/oriented [...] spirometer education and demonstration addressed Discharge planning [facility] reviewed Vital signs every 8 # [...] discussed extensively with patient, RN and Ortho METAL TRIMMER. Patient verbalized understanding through teach back method. All questions and concerns addressed upon examination. Of note, this documentation is completed using the Velascaation system (voice recognition software). There may be spelling and/or grammatical errors that were not corrected prior to final submission. Plan of Care Reviewed With: Plan of Care Reviewed With: patient Elec (more content not included)... Normal [facility] Daily Progress Note-Orthopae dicson 11-06-2022 Daily Progress Note-Orthopaedics Service: Orthopaedics Subjective Data: ERIK MORALES is a 67 year old Male who is Hospital Day # 3 and POD #2 for 1. ;2. ;3. ;4. ;5. Overnight Events: Patient had an uneventful night. Objective Data: Objective Information: T PRBPMAPSpO2 Value37.19791667/527783% Date/Time11/06 8: 8: 8: 8: 8: 8:18 Range(36.2C - 37.4C ) (63 - 79 ) (16 - 18 ) (104 - 132 )/ (58 - 77 ) (76 - 97 ) (94% - 96% ) Highest temp of 37.4 C was recorded at 11/05 19:08 Pain reported at 11/06 7:23: sleeping ---- Intake and Output ----- Mn/Dy/Year TimeIntakeOutputNet Nov 06, 2022 6:00 [id number] Nov 05, 2022 10:00 [id number] Nov 05, 2022 2:00 [id number] The Intake and Output Totals for the last 24 hours are: IntakeOutputNet [id number] T PRBPMAPSpO2 Value37.04844610/236355% Date/Time11/06 8: 8: 8: 8: 8: 8:18 [...] bed -home today Electronic Signatures: Derrick Cunningham (NON GARMENT SEWING MACHINE OPERATOR-FOOD SERVICE AIDE) (Signed 06-Nov-2022 09:07) Authored: Service, Subjective Data, Objective Data, Assessment and Plan, Note Completion Last Updated: 06-Nov-2022 09:07 by Derrick Cunningham (JESSICA-FOOD SERVICE AIDE) Normal [facility] Discharge [id number] 023 Discharge Profile2 Discharge Orders: Anticipated Discharge Date: Anticipated Discharge [id number]-Tkq-3461 Anticipated Discharge Time12:00 Problem List: Admitting Dx: [...] Review of Medication Reconciliation and Orders Completedby NON GARMENT SEWING MACHINE OPERATOR Reviewing ProviderFAINA Dwyer at 07-Nov-2022 09:17:40 Appointments: Follow-Up Appointment 01: Physician/Dept/ServiceDr. Meléndez Reason for Referralback Call to Schedule in2 weeks, please call ahead and schedule appointment [id number] [facility] Phone [phone] Electronic Signatures: Gilda Mcmahon (JESSICA-TRAY) (Signed 07-Nov-2022 09:17) Authored: Discharge Orders, Home Care Orders, Provider FINAL REVIEW of Orders, Appointments, Gold Form - Hydraulic Operator Summary Last Updated: 07-Nov-2022 09:17 by Gilda Mcmahon (NON GARMENT SEWING MACHINE OPERATOR-FOOD SERVICE AIDE) Normal [facility] Laboratory - Chemistry and C hemistry - challengeon 11-06-2022 Anion gap [Moles/Vol] 9 mmol/L below low threshold 10 - 20 -[facility] [place] Work Phone: Calcium [Mass/Vol] 8.6 mg/dL 8.6 - 10.3 -[facility] [place] Work Phone: Chloride [Moles/Vol] 105 mmol/L 98 - 107 - [facility] [place] Work Phone: CO2 [Moles/Vol] 28 mmol/L 21 - 32 [facility] [place] Work Phone: Creatinine [Mass/Vol] 1.37 mg/dL above high threshold See Below [facility] [place] Work Phone: Comment on above: Reference Range: 0.5 0 - 1.30 Glucose [Mass/Vol] 95 mg/dL 74 - 99 -[facility] [place] Work Phone: Potassium [Moles/Vol] 4.1 mmol/L 3.5 - 5.3 [facility] [place] Work Phone: Sodium [Moles/Vol] 138 mmol/L 136 - 145 -[facility] [place] Work Phone: Urea nitrogen [Mass/Vol] 14 mg/dL 6 - 23 -[facility] [place] Work Phone: MAGNESIUMon 11-06-2022 Magnesium [Mass/Vol] 2.06 mg/dL Normal 1.60 - 2.40 [facility] Comment on above: Performed By: #### M G #### [address] [id number] Magnesium, Serumon 09-13-202 3 Magnesium [Mass/Vol] 2.06 mg/dL See Below [facility] Work Phone: Comment on above: Reference Range: 1.6 0 - 2.40 No Panel Informationon 11-06 57 {mL/min/1.73m2} Abnormal >[address] [facility] Work Phone: Comment on above: CALCULATIONS OF MEGAN MATED GFR ARE PERFORMED USING THE 2020 CKD-EPI STUDY REFIT EQUATION WITHOUT THE RACE VARIABLE FOR THE IDMS-TRACEABLE CREATININE METHODS.https://jasn.asnjournals.org/content/early/ASN .9187121921 Rehab Note-occupational therapy department chair rohit 11-06-2022 Rehab Note-occupational therapy Rehab: Info: Mode of Treatmentoccupational therapy Time IN10:20 Time OUT10:58 Total Treatment Ewjhygx65 Patient in ... at end of sessionchair; [...] sitting on sofas and armless chairs. Sit-Stand [place] (Transfers)contact guard Sit-Stand Assistive Device (Transfers)walker, front-wheeled Stand-Sit [place] (Transfers)contact guard Stand-Sit Assistive Device (Transfers)walker, front-wheeled Toilet [place] (Transfers)contact guard Toilet Assistive Device (Transfer)grab bars/safety [...] alignment. UB bathing and dressing with SBA [place] Level (Lower Body Dressing)don; pants/bottoms; shoes/slippers; minimum assist (75% patient effort) Assistive Devices (Lower Body Dressing)sheet finisher Comment (Lower Body Dressing)Pt educated on use of sheet finisher and sock aid for LB dressing with fair understanding and return demonstration. [place] Level (Grooming)contact guard Comment (Grooming)Pt performed G/H tasks in stance at sink with fair balance x 2 1/2 min Motor: Qxt-ti-Bnivp (Balance)fair balance Standing, Static (Balance)fair balance Standing, [...] Score18 Short Term Goals: Functional Transfer: Established Gegr75-Rvy-0691 Functional Transfer: Goal Detailspt will transfer to bed ,chair, toilet with modified indep Functional Transfer: Time Frame for Goal2 wks Balance: Established Nain08-Zig-3019 Balance: Goal DetailsPt will demo fair + dyn std balance with ADLS Balance: Time Frame for Goal2 wks Upper Body Dressing: Established Upper Body Dressing: [place] Level Goalstand-by assist Upper Body Dressing: Time Frame for Goal2 wks Lower Body Dressing: Established Lower Body Dressing: [place] Level Goalminimum assist (75% patients effort) Lower [...] to d (more content not included)... Normal [facility] Rehab Note-physical therapyo n 11-06-2022 Rehab Note-physical therapy Rehab: Info: Disciplinephysical therapist Mode of Treatmentphysical therapy Time IN13:41 Time OUT14:07 Total Treatment Yihkmde15 Patient in ... at end of sessionbed, [...] Score18 Short Term Goals: Bed Mobility: Date Akqpxqmclxp39-Bre-4302 Bed Mobility: [place] Level Goalmodified independent; supine <> sidelying <> sitting Transfer: Established Transfer: Transfer Type Nfbewrj-fb-hgewo/chair-to- bed; gkm-mf-qcgdg/gfjza-pt-boo Transfer: [place] Level Goalmodified independent Transfer: Assistive Device Goalrolling walker Gait: Established Gait: [place] Level Goalmodified independent Gait: Assistive Device Goalrolling walker Gait: Distance Vikp287' Education: Learnerpatient Barriers to Learningno barrier Methodverbal [...] home Outcome Summary: Predicted Duration of Therapy Mouwkjmsreua30 days Progress: Physical Therapyprogress toward functional goals as expected Therapy Frequency (PT Eval)2 times/day Predicted Duration of Therapy Zybamqearidb33 days DC Recommendations: Discharge Recommendation (PT Eval)Pt would benefit from [facility] Electronic Signatures: Daniela Scott (PT) (Signed 07-Nov-2022 03:43) Co-Signer: Info, Mobility/Tone, Motor, Sensory, Outcomes Tools, Short Term Goals, Education, Outcome Summary, DC Recommendations Fior Velez (SPT) (Signed 06-Nov-2022 14:31) Authored: Info, Mobility/Tone, Motor, Sensory, Outcomes Tools, Short Term Goals, Education, Outcome Summary, DC Recommendations Last Updated: 07-Nov-2022 03:43 by Daniela Scott (PT) Normal [facility] Rehab Note-physical therapy Rehab: Info: Mode of Treatmentphysical therapy Time IN09:36 Time OUT10:17 Total Treatment Gmetvno42 Patient in ... at end of sessionchair; [...] Score18 Short Term Goals: Bed Mobility: Date Sctjinwfvpr88-Jcc-0038 Bed Mobility: [place] Level Goalmodified independent; supine <> sidelying <> sitting Transfer: Established Udwr46-Vmk-8848 Transfer: Transfer Type Dihzfxm-wd-ospqq/chair-to- bed; bpl-ae-wfnfr/gppvw-wf-ncf Transfer: [place] Level Goalmodified independent Transfer: Assistive Device Goalrolling walker Gait: Established Jlvy25-Mwq-8263 Gait: [place] Level Goalmodified independent Gait: Assistive Device Goalrolling walker Gait: Distance Dnoa505' Education: Learnerpatient Methodverbal Topicrehab plan of care; precautions; discharge recommendations including destination and/or equipment; fall prevention Education - Topicproper use of FWW for transfers and gait to reduce the risk of fall, reviewed spinal precautions and body mechanics for getting in and out of bed, concerns for discharging home Outcome Summary: Predicted Duration of Therapy Yvtjjgmuzrbt37 days Progress: Physical Therapyprogress towards functional goals is fair Therapy Frequency (PT Eval)2 times/day Predicted Duration of Therapy Qwnrbyrhszvv79 days DC Recommendations: Discharge Recommendation (PT Eval)Pt would benefit from [facility] Electronic Signatures: Daniela Scott (PT) (Signed 07-Nov-2022 03:43) Co-Signer: Info, Mobility/Tone, Outcomes Tools, Short Term Goals, Education, Outcome Summary, DC Recommendations Fior Velez (SPT) (Signed 06-Nov-2022 14:30) Authored: Info, Mobility/Tone, Outcomes Tools, Short Term Goals, Education, Outcome Summary, DC Recommendations Last Updated: 07-Nov-2022 03:43 by Daniela Scott (PT) Normal [facility] BASIC METABOLIC PANELon 10-25 Anion gap [Moles/Vol] 12 mmol/L Normal 10 - 20 [facility] Comment on above: Performed By: #### B MP #### [address] [id number] Calcium [Mass/Vol] 8.8 mg/dL Normal 8.6 - 10.3 [facility] Comment on above: Performed By: #### B MP #### [address] [id number] Chloride [Moles/Vol] 101 mmol/L Normal 98 - 107 [facility] Comment on above: Performed By: #### B MP #### [address] [id number] Creatinine [Mass/Vol] 1.75 mg/dL High 0.50 - 1.30 [facility] Comment on above: Performed By: #### B MP #### [address] [id number] GFR/1.73 sq M.predicted among non-blacks MDRD (S/P/Bld) [Vol rate/Area] 42 mL/min/{1.73_m2} Abnormal >90 [facility] Comment on above: Result Comment: CALC ULATIONS OF ESTIMATED GFR ARE PERFORMED USING THE 2020 CKD-EPI STUDY REFIT EQUATION WITHOUT THE RACE VARIABLE FOR THE IDMS-TRACEABLE CREATININE METHODS. https://jasn.asnjournals.org/content/early/ASN.5606802 988 Performed By: #### B MP #### [address] [id number] Glucose [Mass/Vol] 131 mg/dL High 74 - 99 [facility] Comment on above: Performed By: #### B MP #### [address], [place] [id number] HCO3 (Bld) [Moles/Vol] 26 mmol/L Normal 21 - 32 [facility] Comment on above: Performed By: #### B MP #### [address] [id number] Potassium [Moles/Vol] 4.0 mmol/L Normal 3.5 - 5.3 [facility] Comment on above: Performed By: #### B MP #### [address] [id number] Sodium [Moles/Vol] 135 mmol/L Low 136 - 145 [facility] Comment on above: Performed By: #### B MP #### [address] [id number] Urea nitrogen [Mass/Vol] 14 mg/dL Normal 6 - 23 [facility] Comment on above: Performed By: #### B MP #### [address] [id number] CBCon 11-05-2022 Erythrocyte distribution width (RBC) [Ratio] 13.4 % Normal 11.5 - 14.5 [facility] Comment on above: Performed By: #### C BC #### [address] [id number] Hematocrit (Bld) [Volume fraction] 43.6 % Normal 41.0 - 52.0 [facility] Comment on above: Performed By: #### C BC #### [address] [id number] Hemoglobin (Bld) [Mass/Vol] 14.3 g/dL Normal 13.5 - 17.5 [facility] Comment on above: Performed By: #### C BC #### [address] [id number] MCHC (RBC) [Mass/Vol] 32.8 g/dL Normal 32.0 - 36.0 [facility] Comment on above: Performed By: #### C BC #### [address] [id number] MCV (RBC) [Entitic vol] 96 fL Normal 80 - 100 [facility] Comment on above: Performed By: #### C BC #### [address] [id number] Platelets (Bld) [#/Vol] 244 10*3/uL Normal 150 - 450 [facility] Comment on above: Performed By: #### C BC #### [address] [id number] RBC 4.54 x10E12/L Normal 4.50 - 5.90 [facility] Comment on above: Performed By: #### C BC #### [address] [id number] WBC (Bld) [#/Vol] 16.4 10*3/uL High 4.4 - 11.3 [facility] Comment on above: Performed By: #### C BC #### [address] [id number] Daily Progress Note-General Internal Medicineon 11-05-2022 Daily [...] intact. Objective Data: Objective Information: T PRBPMAPSpO2 [id number]/734543% Date/Time11/05 7: 0: 0: 7: 7: 7:33 [...] ----- Mn/Dy/Year TimeIntakeOutputNet Nov 05, 2022 6:00 [id number] Nov 04, 2022 10:00 [id number] Nov 04, 2022 2:00 [id number] The Intake and Output Totals for the last 24 hours are: IntakeOutputNet [id number] Physical Exam Narrative: Physical Exam: Constitutional: awake/alert/oriented [...] interview, assessm (more content not included)... Normal [facility] Daily Progress Note-Ilya de la garza 11-05-2022 Daily Progress Note-Orthopaedics Service: Orthopaedics Subjective Data: ERIK MORALES is a 67 year old Male who is Hospital Day # 2 and POD #1 for 1. ;2. ;3. ;4. ;5. Overnight Events: Patient had an uneventful night. Objective Data: Objective Information: T PRBPMAPSpO2 Value36.44791467/093369% Date/Time11/05 7: 0: 0: 7: 7: 7:33 [...] ----- Mn/Dy/Year TimeIntakeOutputNet Nov 05, 2022 6:00 [id number] Nov 04, 2022 10:00 [id number] Nov 04, 2022 2:00 [id number] The Intake and Output Totals for the last 24 hours are: IntakeOutputNet [id number] T PRBPMAPSpO2 Value36.03153975/546105% Date/Time11/05 7: 0: 0: 7: 7: 7:33 [...] out of bed Electronic Signatures: Derrick Cunningham (NON GARMENT SEWING MACHINE OPERATOR-FOOD SERVICE AIDE) (Signed 05-Nov-2022 08:16) Authored: Service, Subjective Data, Objective Data, Assessment and Plan, Note Completion Curtis Maldonado) (Signed 05-Nov-2022 09:30) Co-Signer: Service, Subjective Data, Objective Data, Assessment and Plan, Note Completion Last Updated: 05-Nov-2022 09:30 by Curtis Maldonado) Normal [facility] Laboratory - Chemistry and C hemistry - challengeon 11-05-2022 Anion gap [Moles/Vol] 12 mmol/L 10 - 20 [facility] Work Phone: Calcium [Mass/Vol] 8.8 mg/dL 8.6 - 10.[address] [facility] Work Phone: Chloride [Moles/Vol] 101 mmol/L 98 - 107 [facility] Work Phone: CO2 [Moles/Vol] 26 mmol/L 21 - 32 [facility] Work Phone: Creatinine [Mass/Vol] 1.75 mg/dL above high threshold See Below [facility] Work Phone: Comment on above: Reference Range: 0.5 0 - 1.30 Glucose [Mass/Vol] 131 mg/dL above high threshold 74 - 99 [facility] Work Phone: Potassium [Moles/Vol] 4.0 mmol/L 3.5 - 5.3 [facility] Work Phone: Sodium [Moles/Vol] 135 mmol/L below low threshold 136 - 145 [facility] Work Phone: Urea nitrogen [Mass/Vol] 14 mg/dL 6 - 23 [facility] Work Phone: Laboratory - Hematology and Cell countson 11-05-2022 Erythrocyte distribution width (RBC) [Ratio] 13.4 % See Below [facility] Work Phone: Comment on above: Reference Range: 11. 5 - 14.5 Hematocrit (Bld) [Volume fraction] 43.6 % See Below [facility] Work Phone: Comment on above: Reference Range: 41. 0 - 52.0 Hemoglobin (Bld) [Mass/Vol] 14.3 g/dL See Below [facility] Work Phone: Comment on above: Reference Range: 13. 5 - 17.5 MCHC (RBC) [Mass/Vol] 32.8 g/dL See Below [facility] Work Phone: Comment on above: Reference Range: 32. 0 - 36.0 MCV (RBC) [Entitic vol] 96 fL 80 - 100 [facility] Work Phone: Platelets (Bld) [#/Vol] 244 10*3/uL 150 - 450 [facility] Work Phone: RBC (Bld) [#/Vol] 4.54 {x10E12/L} See Below [facility] Work Phone: Comment on above: Reference Range: 4.5 0 - 5.90 WBC (Bld) [#/Vol] 16.4 10*3/uL above high threshold 4.4 - 11.3 [facility] Work Phone: No Panel Informationon 11-05 42 {mL/min/1.73m2} Abnormal >90 [facility] Work Phone: Comment on above: CALCULATIONS OF MEGAN MATED GFR ARE PERFORMED USING THE 2020 CKD-EPI STUDY REFIT EQUATION WITHOUT THE RACE VARIABLE FOR THE IDMS-TRACEABLE CREATININE METHODS.https://jasn.asnjournals.org/content/early//ASN .9878356268 OT Evaluation v2-occupationa l therapyon 11-05-2022 OT Evaluation v2-occupational therapy Rehab: Info: Mode of Treatmentoccupational therapy Time IN07:41 Time OUT08:05 Total Treatment Minutes0 Patient Effortgood Symptoms Noted During/After Treatmentnone Patient Profile Reviewedyes Onset of Illness/Injury or Date of [id number]-4035 Reason for ReferralL2-3, L3-4 lami, L3-4 lateral [...] Static (Balance)good balance Sitting, Dynamic (Balance)good balance Rog-he-Vzneg (Balance)good balance Standing, Static (Balance)fair balance Standing, Dynamic (Balance)fair balance Sensory: Pre-Treatment Pain Rating3/10 Post-Treatment Pain Rating3/10 Comment, Pre/Post Treatment Painlow back pain Sensory General Assessmentno sensation deficits identified Impression: Criteria for Skilled Therapeutic Interventions Met (OT Eval)treatment indicated OT DiagnosisADL impairment Rehab Potential (OT Eval)good, to achieve stated therapy goals Therapy Frequency (OT Eval)2 times/wk Predicted Duration of Therapy Eyhnajkbstwr37 days Functional Limitations in Following Categoriesself-care Planned [...] Score16 Short Term Goals: Functional Transfer: Established Rvtz67-Iko-9482 Functional Transfer: Goal Detailspt will transfer to bed ,chair, toilet with modified indep Functional Transfer: Time Frame for Goal2 wks Balance: Established Hztw69-Dnt-8204 Balance: Goal DetailsPt will demo fair + dyn std balance with ADLS Balance: Time Frame for Goal2 wks Upper Body Dressing: Established Slpz00-Hue-3256 Upper Body Dressing: [place] Level Goalstand-by assist Upper Body Dressing: Time Frame for Goal2 wks Lower Body Dressing: Established Loan95-Jor-6170 Lower Body Dressing: [place] Level Goalminimum assist (75% patients effort) Lower Body Dressing: Time Frame for Goal2 wks Following Precautions: Established Jnxn41-Csb-7657 Following Precautions: Goal Detailspt will verbalize and [...] Updated: 05-Nov-2022 09:56 by Marianna Hayes (OT) [facility] PT Evaluation v2-physical th erapyon 11-05-2022 PT Evaluation v2-physical therapy Rehab: Info: Mode of Treatmentphysical therapy Time IN07:45 Time OUT08:05 Patient in ... at end of sessionchair; alarm on Patient Effortgood Patient Profile Reviewedyes Onset of Illness/Injury or Date of [id number]-1722 Reason for ReferralSurgery 11.04.2022 L3-4 lateral interbody fusion, L2-3 and L3-4 laminectomy and posterior lateral fusion, L3-4 lateral instrumentation, thermal ablation of median nerve to L2-3 and L3-4 Referring PhysicianPT/OT 11.04.2022 Ángela Lumbosacral brace up Spinal precautions Patient/Family/Caregiver Comments/ObservationsServi bari provided by RAFAEL Holt with direct supervision and guidance from Daniela Sonia, PT General Observations of PatientPt supine in [...] Static (Balance)good balance Sitting, Dynamic (Balance)fair balance Uon-vn-Oeztk (Balance)fair + Standing, Static (Balance)fair + Standing, [...] (PT Eval)2 times/day Predicted Duration of Therapy Iisrcowmklzm93 days Outcomes Tools: Turning from your back [...] in hosp (more content not included)... Normal [facility] Rehab Note-physical therapyo n 11-05-2022 Rehab Note-physical therapy Rehab: Info: Disciplinephysical occupational therapy department chair Mode of Treatmentphysical therapy Time IN14:19 Time OUT14:44 Total Treatment Pioxdkd48 Patient in ... at end of sessionbed, [...] Score18 Short Term Goals: Bed Mobility: Date Hrzwuuzvcpv46-Jrs-5937 Bed Mobility: [place] Level Goalmodified independent; supine <> sidelying <> sitting Transfer: Established Transfer: Transfer Type Vfupivz-or-ajdqb/chair-to- bed; ydj-iw-qcsyi/vimok-pm-ojf Transfer: [place] Level Goalmodified independent Transfer: Assistive Device Goalrolling walker Gait: Established Gait: [place] Level Goalmodified independent Gait: Assistive Device Goalrolling walker Gait: Distance Dgbi008' Education: Learnerpatient; family member Methodverbal Outcome Evaluation1=partially meets; needs review Education - Topicpt able to recall spinal precautions , Able to don and doff TLSO brace Outcome Summary: Progress: Physical Therapyprogress toward functional goals as expected Electronic Signatures: Kelsea CuetoSUB PLANT MANAGER) (Signed 05-Nov-2022 16:34) Authored: Info, Mobility/Tone, Sensory, Outcomes Tools, Short Term Goals, Education, Outcome Summary Daniela Scott (PT) (Signed 06-Nov-2022 03:32) Co-Signer: Info, Mobility/Tone, Sensory, Outcomes Tools, Short Term Goals, Education, Outcome Summary Last Updated: 06-Nov-2022 03:32 by Daniela Scott (PT) Normal [facility] Admission Risk Screen - Adul ton 11-04-2022 Admission Risk Screen - Adult Allergies: Intolerances: nitroglycerin: Unknown Patient Verification: New W ID Band Applied in my Departmentno Type of ID Patient is WearingW wristband, but not applied here [facility] Patient Identity Verified Bypatient ID [...] AlertFor Ebola-like Symptoms: Isolate Patient and Notify Provider/Mechanical Technician For Contact: Notify Provider/Mechanical Technician Advance Directive: Advance Directive/DNRyes Advance Directive typeLiving Will, Durable Power of Sorting Machine Attendant for Healthcare Living Will AvailabilityLiving Will not available now Living Will Ivybbxwlg75-Txo-3501 Durable Power of Sorting Machine Attendant AvailabilityDPOA not available now Durable Power of Sorting Machine Attendant Hfejksdxi25-Gsh-0495 Durable Power of Sorting Machine Attendant contact (name and number)Jose Carlos-carmelaer [phone] [place] Fall Screen: History of falling (immediate [...] instruction; skill demonstration Cultural Considerationsnone Developmental Considerationsnone Evangelical Considerationsnone Learning Assessment (Other Learner): Other learner availableno Depression Screen: During the past month, have you often been bothered by feeling down, depressed or hopelessno During the past month, have you often had little interest or pleasure in doing thingsno Have you had any thoughts of harming anyone elseno Cross Suicide: Risk Screen Not Applicable/Able to Answerable to be screened In the Past Month: Have you wished you were or could go to sleep and not wake upno In the Past Month: Have you had any actual thoughts of killing yourselfno Lifetime: Have you ever done, started to do, or prepared to do anything to end your lifeno Cross Suicide Risknegative Adult Nutrition Screen: Have you [...] (frequency/quality)frequen t; (more content not included)... Normal [facility] Consult-General Internal Med sotero 11-04-2022 [...] nitroglycerin: Unknown Objective: Objective Information: T PRBPMAPSpO2 Value36.08895465/9049586% Date/Time11/04 15: 15: 15: 15: 15: 15:32 [...] to b (more content not included)... Normal [facility] Discharge Planning Saus1ve 0 11-04-2022 Discharge Planning Note2 Discharge Planning: Planned Dispositionhome Discharge Destinationhome [place] of Choice Explainedyes Anticipated Discharge Enlo76-Nff-2673 Discharge Planning 11/04/22 @ 1508 hours: Received [...] he is independent of ADLs and IADLs SUB PLANT MANAGER and does not use AD. Drives. Pt plans to dc home. CT team will continue to monitor care progression and potential dc needs. Darya Jay RN TCC 11/06/22 0900 TCC UPDATE: [facility] score is PT (18) OT (16), [...] Jones RN TCC. Assessment: Discharge Planning Assessment Azgp07-Loh-5553 Primary Contact Name and NumberDale (brother) [phone] Lives Withsibling(s) Living Arrangementshouse PCPHoy Anticipated Transition [facility] Anticipated at Transitionnone InsuranceDevoted Anticipated Changes [...] 06-Nov-2022 15:26 by Sultana Jones (CLIN COOR) [facility] Order Reconciliationon 11-04 Order Reconciliation Page 1 Admission Reconciliation Document Reconciliation Type: Admission requested on behalf of Heidy Escobar (Advanced Practice Nurse) done by Heidy Escobar (NON GARMENT SEWING MACHINE OPERATOR-FOOD SERVICE AIDE) Admission - Partial Reconciliation: 04-Nov-2022 15:50 by: Heidy Escobar (NON GARMENT SEWING MACHINE OPERATOR-FOOD SERVICE AIDE) Admission - Reconciliation: 04-Nov-2022 15:50 by: Heidy Escobar (NON GARMENT SEWING MACHINE OPERATOR-FOOD SERVICE AIDE) Home MedicationsEnteredLast Dose TakenReconciled with current Order Reconciliation Comment/ Additional Information atorvastatin 40 mg oral tablet 1 tab(s) orally once a day (at bedtime) 330958-Ckx-7801 PM Atorvastatin Tablet (LIPITOR)DOSE = 40 mg Oral At Bedtimeatorvastatin 40 mg oral tablet continued as the inpatient order Atorvastatin baclofen 10 mg oral tablet 1 tab(s) orally once a hjo53-Iru-546975-Wrn-4317 PM Reviewed and Held Eliquis 5 mg oral tablet 1 tab(s) orally 2 times a day---AWARE TO HOLD PRIOR TO PROCEDURE Reviewed and Held furosemide 20 mg oral tablet 1 tab(s) orally once a dtb35-Wph-826829-Jpd-9923 AM Furosemide Tablet (LASIX)DOSE = 20 mg Oral Dailyfurosemide 20 mg oral tablet is continued and suspended as Furosemide lisinopril 20 mg oral tablet 1 tab(s) orally once a jaq16-Ife-627538-Eoe-8481 PM Lisinopril Tablet (PRINIVIL, ZESTRIL)DOSE = 20 mg Oral Dailylisinopril 20 mg oral tablet is continued and suspended as Lisinopril metoprolol tartrate 25 mg oral tablet 1 tab(s) orally 2 times a day---AWARE TO TAKE MORNING OF PROCEDUE WITH A SIP OF AUBZE63-Wwn-453105-Bna-079 3 02:30 AM Reviewed and Held Multiple Vitamins oral tablet 1 tab(s) orally once a joq35-Ffd-679204-Nov-2022 AM Multivitamin with Minerals TabletDOSE = 1 tablet(s) Oral Daily Multiple Vitamins oral tablet continued as the inpatient order Multivitamin with Minerals nortriptyline 25 mg oral capsule orally once a ayw90-Rkj-930677-Exz-5743 PM Nortriptyline Capsule (PAMELOR)DOSE = 25 mg [...] tab(s) orally 2 times a day, As Fsccok05-Oll-434272-Tll-34 23 Reviewed and Held Potassium Chloride (Mre-Rqlb-Zjv 10) 10 mEq oral tablet, extended release 1 tab(s) orally once a bne42-Dwc-787930-Fkf-7814 PM Reviewed and Held Additional Current Orders [...] 12 HoursRecommended Infusion Time: 60 minute(s) Normal [facility] Radiologyon 11-04-2022 Fluoroscopy duration Please click on the link to view the study images [facility] Work Phone: Established Visit (Orthopaed ic Surgery)on [...] instructions were (more content not included)... Normal Donuts APTTon 10-21-2022 aPTT Coag (Bld) [Time] 34 s Normal 27 - 38 [facility] Comment on above: Result Comment: Note new reference range as of 08/13/2022 at 10:00am. Performed By: #### A PTT #### [address] [id number] Activated Partial Thrombopla stin Timeon 10-21-2022 aPTT Coag (PPP) [Time] 34 s 27 - 38 [facility] Work Phone: Comment on above: Note new reference r jana as of 08/13/2022 at 10:00am. CBC AND DIFFERENTIALon 10-21 % AUTOMATED IMMATURE GRAN 0.3 % Normal 0.0 - 0.9 [facility] Comment on above: Result Comment: Jovanna ture Granulocyte Count (IG) includes promyelocytes, myelocytes and metamyelocytes but does not include bands. Percent differential counts (%) should be interpreted in the context of the absolute cell counts (cells/L). Performed By: #### C BCDF #### [address] [id number] Basophils (Bld) [#/Vol] 0.11 10*3/uL High 0.00 - 0.10 [facility] Comment on above: Performed By: #### C BCDF #### [address] [id number] Basophils/100 WBC (Bld) 1.2 % Normal 0.0 - 2.0 [facility] Comment on above: Performed By: #### C BCDF #### [address] [id number] Eosinophils (Bld) [#/Vol] 0.21 10*3/uL Normal 0.00 - 0.70 [facility] Comment on above: Performed By: #### C BCDF #### [address] [id number] Eosinophils/100 WBC (Bld) 2.2 % Normal 0.0 - 6.0 [facility] Comment on above: Performed By: #### C BCDF #### [address] [id number] Erythrocyte distribution width (RBC) [Ratio] 13.5 % Normal 11.5 - 14.5 [facility] Comment on above: Performed By: #### C BCDF #### [address] [id number] Hematocrit (Bld) [Volume fraction] 44.9 % Normal 41.0 - 52.0 [facility] Comment on above: Performed By: #### C BCDF #### [address] [id number] Hemoglobin (Bld) [Mass/Vol] 14.8 g/dL Normal 13.5 - 17.5 [facility] Comment on above: Performed By: #### C BCDF #### [address] [id number] Lymphocytes (Bld) [#/Vol] 1.28 10*3/uL Normal 1.20 - 4.80 [facility] Comment on above: Performed By: #### C BCDF #### [address] [id number] Lymphocytes/100 WBC (Bld) 13.6 % Normal 13.0 - 44.0 [facility] Comment on above: Performed By: #### C BCDF #### [address] [id number] MCHC (RBC) [Mass/Vol] 33.0 g/dL Normal 32.0 - 36.0 [facility] Comment on above: Performed By: #### C BCDF #### [address] [id number] MCV (RBC) [Entitic vol] 94 fL Normal 80 - 100 [facility] Comment on above: Performed By: #### C BCDF #### [address] [id number] Monocytes (Bld) [#/Vol] 0.72 10*3/uL Normal 0.10 - 1.00 [facility] Comment on above: Performed By: #### C BCDF #### [address] [id number] Monocytes/100 WBC (Bld) 7.7 % Normal 2.0 - 10.0 [facility] Comment on above: Performed By: #### C BCDF #### [address] [id number] Neutrophils (Bld) [#/Vol] 7.04 10*3/uL Normal 1.20 - 7.70 [facility] Comment on above: Performed By: #### C BCDF #### [address] [id number] Neutrophils/100 WBC (Bld) 75.0 % Normal 40.0 - 80.0 [facility] Comment on above: Performed By: #### C BCDF #### [address] [id number] Platelets (Bld) [#/Vol] 251 10*3/uL Normal 150 - 450 [facility] Comment on above: Performed By: #### C BCDF #### [address] [id number] RBC 4.78 x10E12/L Normal 4.50 - 5.90 [facility] Comment on above: Performed By: #### C BCDF #### [address] [id number] WBC (Bld) [#/Vol] 9.4 10*3/uL Normal 4.4 - 11.3 [facility] Comment on above: Performed By: #### C BCDF #### [address] [id number] COMPREHENSIVE PANELon 2022 Albumin [Mass/Vol] 4.0 g/dL Normal 3.4 - 5.0 [facility] Comment on above: Performed By: #### C BC #### [address] [id number] ALP [Catalytic activity/Vol] 127 U/L Normal 33 - 136 [facility] Comment on above: Performed By: #### C BC #### [address] [id number] ALT [Catalytic activity/Vol] 16 U/L Normal 10 - 52 [facility] Comment on above: Result Comment: Becca ents treated with Sulfasalazine may generate falsely decreased results for ALT. Performed By: #### C BC #### [address] [id number] Anion gap [Moles/Vol] 12 mmol/L Normal 10 - 20 [facility] Comment on above: Performed By: #### C BC #### [address] [id number] AST [Catalytic activity/Vol] 21 U/L Normal 9 - 39 [facility] Comment on above: Performed By: #### C BC #### [address] [id number] Bilirubin [Mass/Vol] 0.6 mg/dL Normal 0.0 - 1.2 [facility] Comment on above: Performed By: #### C BC #### [address] [id number] Calcium [Mass/Vol] 9.3 mg/dL Normal 8.6 - 10.3 [facility] Comment on above: Performed By: #### C BC #### [address] [id number] Chloride [Moles/Vol] 103 mmol/L Normal 98 - 107 [facility] Comment on above: Performed By: #### C BC #### [address] [id number] Creatinine [Mass/Vol] 1.29 mg/dL Normal 0.50 - 1.30 [facility] Comment on above: Performed By: #### C BC #### [address] [id number] GFR/1.73 sq M.predicted among non-blacks MDRD (S/P/Bld) [Vol rate/Area] 61 mL/min/{1.73_m2} Normal >90 [facility] Comment on above: Result Comment: CALC ULATIONS OF ESTIMATED GFR ARE PERFORMED USING THE 2020 CKD-EPI STUDY REFIT EQUATION WITHOUT THE RACE VARIABLE FOR THE IDMS-TRACEABLE CREATININE METHODS. https://jasn.asnjournals.org/content/early/ASN.0918385 988 Performed By: #### C BC #### [address] [id number] Glucose [Mass/Vol] 103 mg/dL High 74 - 99 [facility] Comment on above: Performed By: #### C BC #### [address] [id number] HCO3 (Bld) [Moles/Vol] 27 mmol/L Normal 21 - 32 [facility] Comment on above: Performed By: #### C BC #### [address] [id number] Potassium [Moles/Vol] 3.8 mmol/L Normal 3.5 - 5.3 [facility] Comment on above: Performed By: #### C BC #### [address] [id number] Protein [Mass/Vol] 7.4 g/dL Normal 6.4 - 8.2 [facility] Comment on above: Performed By: #### C BC #### [address] [id number] Sodium [Moles/Vol] 138 mmol/L Normal 136 - 145 [facility] Comment on above: Performed By: #### C BC #### [address] [id number] Urea nitrogen [Mass/Vol] 11 mg/dL Normal 6 - 23 [facility] Comment on above: Performed By: #### C BC #### [address] [id number] Complete Blood Count + Diffe dominic 10-21-2022 Basophils/100 WBC (Bld) 1.2 % 0.0 - 2.0 [facility] [place] Work Phone: [phone] Erythrocyte distribution width (RBC) [Ratio] 13.5 % See Below [facility] [place] Work Phone: [phone] Comment on above: Reference Range: 11. 5 - 14.5 Hematocrit (Bld) [Volume fraction] 44.9 % See Below [facility] [place] Work Phone: [phone] Comment on above: Reference Range: 41. 0 - 52.0 Hemoglobin (Bld) [Mass/Vol] 14.8 g/dL See Below [facility] Work Phone: [phone] Comment on above: Reference Range: 13. 5 - 17.5 Lymphocytes/100 WBC (Bld) 13.6 % See Below [facility] [place] Work Phone: [phone] Comment on above: Reference Range: 13. 0 - 44.0 MCHC (RBC) [Mass/Vol] 33.0 g/dL See Below [facility] Work Phone: [phone] Comment on above: Reference Range: 32. 0 - 36.0 MCV (RBC) [Entitic vol] 94 fL 80 - 100 [facility] [place] Work Phone: [phone] Monocytes/100 WBC (Bld) 7.7 % 2.0 - 10.0 [facility] [place] Work Phone: [phone] Neutrophils/100 WBC (Bld) 75.0 % See Below [facility] Work Phone: [phone] Comment on above: Reference Range: 40. 0 - 80.0 Platelets (Bld) [#/Vol] 251 10*3/uL 150 - 450 [facility] Work Phone: RBC (Bld) [#/Vol] 4.78 {x10E12/L} See Below [facility] Work Phone: Comment on above: Reference Range: 4.5 0 - 5.90 WBC (Bld) [#/Vol] 9.4 10*3/uL 4.4 - 11.3 [facility] Work Phone: Complete Blood Count + Differential 0.11 {x10E9/L} above high threshold See Below [facility] Work Phone: Comment on above: Reference Range: 0.0 0 - 0.10 Complete Blood Count + Differential 0.21 {x10E9/L} See Below [facility] Work Phone: Comment on above: Reference Range: 0.0 0 - 0.70 Complete Blood Count + Differential 0.72 {x10E9/L} See Below [facility] Work Phone: Comment on above: Reference Range: 0.1 0 - 1.00 Complete Blood Count + Differential 1.28 {x10E9/L} See Below [facility] Work Phone: Comment on above: Reference Range: 1.2 0 - 4.80 Complete Blood Count + Differential 7.04 {x10E9/L} See Below [facility] Work Phone: Comment on above: Reference Range: 1.2 0 - 7.70 Complete Blood Count + Differential 2.2 % 0.0 - 6.0 [facility] Work Phone: Complete Blood Count + Differential 0.3 % 0.0 - 0.9 [facility] Work Phone: Comment on above: Immature Granulocyte Count (IG) includes promyelocytes, myelocytes and metamyelocytes but does not include bands. Percent differential counts (%) should be interpreted in the context of the absolute cell counts (cells/L). Electrocardiogram 12 Leadon 10-21-2022 Electrocardiogram 12 Lead Ventricular Rate 64 Atrial Rate 64 P-R Interval 172 QRS Duration 84 Q-T Interval 398 QTC Calculation(Bazett) 410 P [place] 22 R [place] 17 T [place] 32 QRS Count 11 Q Onset 225 P Onset 139 P Offset 198 T Offset 424 QTC Fredericia 406 Diagnosis Class Borderline Normal Diagnosis Normal sinus rhythm Early transition Otherwise normal ECG No previous ECGs available Confirmed by Curtis Trejo ([id number]) on 10/24/2022 9:27:12 AM Normal [facility] - Chemistry and C hemistry - challengeon 10-21-2022 Albumin BCP dye [Mass/Vol] 4.0 g/dL 3.4 - 5.0 -[facility] Work Phone: [phone] ALP [Catalytic activity/Vol] 127 U/L 33 - 136 -[facility] Work Phone: [phone] ALT With P-5'-P [Catalytic activity/Vol] 16 U/L 10 - 52 -[facility] Work Phone: [phone] Comment on above: Patients treated wit h Sulfasalazine may generate falsely decreased results for ALT. Anion gap [Moles/Vol] 12 mmol/L 10 - 20 -[facility] Work Phone: [phone] AST With P-5'-P [Catalytic activity/Vol] 21 U/L 9 - 39 -[facility] Work Phone: [phone] Bilirubin [Mass/Vol] 0.6 mg/dL 0.0 - 1.2 [facility] Work Phone: [phone] Calcium [Mass/Vol] 9.3 mg/dL 8.6 - 10.[address] [facility] Work Phone: [phone] Chloride [Moles/Vol] 103 mmol/L 98 - 107 [facility] Work Phone: [phone] CO2 [Moles/Vol] 27 mmol/L 21 - 32 [facility] [employer] Work Phone: Creatinine [Mass/Vol] 1.29 mg/dL See Below [facility] [employer] Work Phone: Comment on above: Reference Range: 0.5 0 - 1.30 Glucose [Mass/Vol] 103 mg/dL above high threshold 74 - 99 [facility] Work Phone: Potassium [Moles/Vol] 3.8 mmol/L 3.5 - 5.3 [facility] [employer] Work Phone: Protein [Mass/Vol] 7.4 g/dL 6.4 - 8.2 [facility] [place] [employer] Work Phone: Sodium [Moles/Vol] 138 mmol/L 136 - 145 [facility] Work Phone: Urea nitrogen [Mass/Vol] 11 mg/dL 6 - 23 [facility] Work Phone: Laboratory - Coagulationon 0 10-21-2022 INR Coag (PPP) [Relative time] 1.4 {INR} above high threshold 0.9 - 1.1 [facility] Work Phone: PT Coag (PPP) [Time] 16.2 s above high threshold 9.8 - 12.8 [facility] Work Phone: [phone] Comment on above: Note new reference r jana as of 08/13/2022 at 10:00am. MRSA Screenon 10-21-2022 Staphylococcus sp identified Org specific cx Nom (Unsp spec) Abnormal [facility] Work Phone: No Panel Informationon 10-21 [email or web address] ?RetrieveTestByDateTime?Pa xpteaEL=[id number]&Date=&Time=14%3a28%3a16% 3a00&TestType=ECG&Site=1&O utputType=PDF&Ext=PDF [facility] [place] Work Phone: [phone] Normal sinus rhythm [facility] [place] Work Phone: [phone] Borderline Normal [facility] [place] Work Phone: [phone] [facility] [place] Work Phone: [phone] [facility] [place] Work Phone: [phone] [facility] [place] Work Phone: [phone] [...] [phone] [facility] [place] Work Phone: [phone] [facility] [place] Work Phone: [phone] [facility] [place] Work Phone: [phone] [facility] [place] Work Phone: [phone] [facility] [place] Work Phone: [phone] {mL/min/1.73m2} >[address] [facility] [place] Work Phone: [phone] Comment on above: CALCULATIONS OF MEGAN MATED GFR ARE PERFORMED USING THE 2020 CKD-EPI STUDY REFIT EQUATION WITHOUT THE RACE VARIABLE FOR THE IDMS-TRACEABLE CREATININE METHODS.https://jasn.asnjournals.org/content/early/ASN .1160662079 PT/INRon 10-21-2022 PT Coag (PPP) [Time] 16.2 s High 9.8 - 12.8 [facility] Comment on above: Result Comment: Note new reference range as of 08/13/2022 at 10:00am. 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 (procedure may be cancelled if no straddle truck driver), center location, insurance information Prep Instructions Reviewedyes Prep TypeCHG wipes Instructed to Have No Fluids AfterNPO after midnight How to be AddressedGarry Spoken Language PreferredEnglish Source of Informationpatient Stated Reason for AdmissionBack surgery Primary Contact Name and NumberJose Carlos (brother) [phone] Other Contact Names and NumbersDerick Garsia (friend) [phone] Limitations on Visitors/Phone Callsnone Medications Brought to Hospitalno General Health: Weight in kg90.4 kilogram(s) Weight in uci094.2 pound(s) Weight Methodactual (measured) Scale Typestanding Height [...] CommentsLives with brother Resource/Environmental Concernsnone Anticipated Transition [place] [facility] Anticipated at Transitionnone Tobacco Use: Tobacco Useno former cigar smoker, quit 15 years ago Pre-op Checklist: Arrival [id number] Arrival Time09:25 Procedure TypeL2-3, L3-4 LAMINECTOMY, L3-4 INSTRUMENTATION, L2-3, L3-4 POSTERIOR LATERAL FUSION, L3-4LATERAL LUMBAR INTERBODY FUSION NPOyes Last Food [id number] 18:30 Last Clear Fluid [id number] 19:00 ID Band On Patientpatient ID (name), falls risk Consent Signedyes H&P Completeyes Anesthesia Assessment Completedpending EKG Performedsee results tab Chest X-Ray Performednot ordered Preop Antibioticssent to OR Beta-sushant Last Dose Date/Gqht03-[id number]-4940 02:30 Glucose Resultn/a Type and Screen Resultedn/a [...] 04-Nov-2022 05:56 by Moira Marsh (SANTI) Normal [facility] STAPH/MRSA SCREENon 10-22-19 23 STAPH/MRSA SCREEN PATIENT: ERIK MORALES LOCATION: [facility] [id number] : 55 AGE: SEX: M ORDERED BY: CURTIS MELÉNDEZ S[place] [facility] [place]ED: 10/21/22 14:18 ANTIBIOTICS AT TEDDY.: RECEIVED : 10/21/22 21:56 SITE: R E S U L T S STAPH/MRSA SCREEN FINAL 10/23/22 12:12 ISOLATE1 : Staphylococcus aureus METHICILLIN SENSITIVE STAPHYLOCOCCUS AUREUS (MSSA) Normal [facility] Comment on above: Performed By: #### S TAPH #### [facility] [address] [place] [address] URINALYSIS WITH CULTURE IF I NDICATEDon 10-21-2022 Appearance (U) CLEAR Normal CLEAR [facility] Comment on above: Performed By: #### U ARFX #### [address] [id number] Bilirubin Ql (U) Negative Normal NEGATIVE [facility] Comment on above: Performed By: #### U ARFX #### [address] [id number] Color (U) YELLOW Normal STRAW,YELLO W [facility] Comment on above: Performed By: #### U ARFX #### [address] [id number] Glucose Ql (U) Negative Normal NEGATIVE [facility] Comment on above: Performed By: #### U ARFX #### [address] [id number] Hemoglobin Ql (U) Negative Normal NEGATIVE [facility] Comment on above: Performed By: #### U ARFX #### [address] [id number] Ketones Ql (U) Negative Normal NEGATIVE [facility] Comment on above: Performed By: #### U ARFX #### [address] [id number] Leukocyte esterase Test strip Ql (U) Negative Normal NEGATIVE [facility] Comment on above: Performed By: #### U ARFX #### [address] [id number] Nitrite Ql (U) Negative Normal NEGATIVE [facility] Comment on above: Performed By: #### U ARFX #### [address] [id number] pH (U) 6.0 [pH] Normal 5.0 - 8.0 [facility] Comment on above: Performed By: #### U ARFX #### [address] [id number] Protein Ql (U) Negative Normal NEGATIVE [facility] Comment on above: Performed By: #### U ARFX #### [address] [id number] Specific gravity (U) [Rel density] 1.010 Normal 1.005 - 1.035 [facility] Comment on above: Performed By: #### U ARFX #### [address] [id number] Urobilinogen (U) [Mass/Vol] mg/dL Normal 0.0 - 1.9 [facility] Comment on above: Performed By: #### U ARFX #### [address] [id number] Color (U) YELLOW See Below [facility] [place] Work Phone: Comment on above: Reference Range: STR AW,YELLOW Glucose Ql (U) Negative NEGATIVE [facility] [place] Work Phone: [phone] Ketones Ql (U) Negative NEGATIVE [facility] [place] Work Phone: [phone] Leukocyte esterase Test strip Ql (U) Negative NEGATIVE [facility] Work Phone: [phone] pH (U) 6.0 [pH] 5.0 - 8.0 -[facility] [place] Work Phone: [phone] Protein (U) [Mass/Vol] Negative NEGATIVE -[facility] [place] Work Phone: [phone] RBC (U) [#/Vol] Negative NEGATIVE -[facility] [place] Work Phone: [phone] Specific gravity (U) [Rel density] 1.010 1 See Below [facility] [place] Work Phone: Comment on above: Reference Range: 1.0 05 - 1.035 URINALYSIS WITH CULTURE IF INDICATED Negative NEGATIVE -[facility] Work Phone: [phone] URINALYSIS WITH CULTURE IF INDICATED <2.0 0.0 - 1.9 -[facility] [place] Work Phone: [phone] URINALYSIS WITH CULTURE IF INDICATED CLEAR CLEAR -[facility] Work Phone: [phone] Established Visit (Orthopaed ic Surgery)on 09-19-2022 Established Visit (Orthopaedic Surgery) Orders Back pain, Other intervertebral disc degeneration, lumbar region Irene Back Brace; Status:Need Information - Financial Authorization; Requested for:[id number]; Osteogenesic Stimulator; Status:Active; Requested for:[id number]; Provider Impressions Assessment: At this time, I [...] included)... Normal [facility] Initial Visit (Orthopaedic [place])on 08-23-2022 Initial Visit (Orthopaedic Surgery) Provider [...] back [facility]. h/o sx in 1998. thoracic and lumbar xrays and MRI in [place]. brought a disc. History of Present IllnessErik [...] to the pain management center down in [place]. Review of Systems Review of systems, past [...] surgery Histo (more content not included)... [facility] 08-23-2022 XR Lumbar spine AP and Lateral Normal -[place] [facility] Work Phone: SPINE, LUMBOSACRAL 2 OR 3 EWSon 08-23-2022 SPINE, LUMBOSACRAL 2 OR 3 VIEWS Patient Name: ERIK MORALES STUDY: SPINE, LUMBOSACRAL; 2 OR 3 VIEWS; ; 08/23/2022 1:37 pm INDICATION: pain M51.36: Other intervertebral disc degeneration, lumbar region M54.9: Back pain. ACCESSION NUMBER(S): [id number] ORDERING CLINICIAN: CURTIS MELÉNDEZ FINDINGS: Flexion-extension x-rays [...] vasculature. Electronically signed by: CURTIS MELÉNDEZ MD [facility] VASC LAB Abdominal Aorta/Nancy ac/IVC Ultraon 07-31-2022 VASC LAB Abdominal Aorta/Iliac/IVC Ultra [address], [address], [place] [address] Vascular Lab Report Abdominal Aorta Iliac Ultrasound/IVC Ultrasound Patient Name: ERIK Mckoy Physician: [id number] Cecilio Go MD, [facility] Study Date: 07/31/2022 Referring CECILIO GO Physician: MRN/PID: [id number] PCP: Radames Witt Accession/Order#: [id number] CC Report to: Date of : 1955 Technologist: Karol Hull RDCS, RVT Gender: M Technologist 2: Admission Status: Outpatient Location Performed: [facility] Diagnosis/ICD: I71.43-Infrarenal abdominal aortic aneurysm, without rupture Indication: HTN, Hyperlipidemia, Obesity, Former Smoker, Dyspnea, Pulmonary Fibrosis Procedure/CPT: 50625 Duplex Aorta/IVC/Iliac/Bypass [id number] CONCLUSIONS: Aorta/Common Iliac Arteries/IVC: Infrarenal fusiform abdominal [...] Proximal 0.71 cm 0.96 cm 0.96 cm/s [id number] Cecilio Go MD, FACC Final Normal [facility] VAS LAB Abdominal Aorta/Nancy ac/IVC Ultrasoundon 07-31-2022 VASC LAB Abdominal Aorta/Iliac/IVC Ultrasound -[facility] [facility] DO Work Phone: XR [...] IRAIS LORENZANA Date: 2022-07-02 13:50 Normal [facility] Office Visit (Cardiology)on 06-04-2022 Follow-up visit [...] Weight Tips; Status:Complete - Retrospective Authorization; Done: [id number] Some eating tips that can help you lose weight.; Status:Complete - Retrospective Authorization; Done: [id number] SocHx: Former smoker Tobacco Use Screening; Status:Complete; Done: [id number] Patient Instructions Please bring all medicines, vitamins, [...] rashes. Neurologic (more content not included)... Normal [employer] Tobacco Screening.on 023 Adult depression screening assessment No [facility] [address] DO Work Phone: Fall risk assessment a) No falls within the last year [facility] DO Work Phone: Tobacco use status CP b) No [facility] [address] DO Work Phone: CREATININEon 02-18-2022 Creatinine [Mass/Vol] 1.23 mg/dL Normal 0.70-1.30 [facility] Comment on above: Performed By: #### E RUR #### [facility] Laboratory [address] [place] [address] [address] Arielle Biswas EGFR-AF MOROCCAN >60 Normal >=60 [facility] Comment on above: Performed By: #### E RUR #### [facility] [address] [place] [address] [address] Arielle Biswas EGFR-NON AF MOROCCAN 59 mL/min/1.73m2 Critically low >=60 [facility] Comment on above: Performed By: #### E RUR #### [facility] [address] [address] [address] CHEST W CONon [...] BRITANY TSANG Date: 2022-02-18 15:28 Normal [facility] Office Visit (Cardiology)on 12-11-2021 Follow-up visit [...] Weight Tips; Status:Complete - Retrospective Authorization; Done: [id number] Some eating tips that can help you lose weight.; Status:Complete - Retrospective Authorization; Done: [id number] SocHx: Former smoker Tobacco Use Screening; Status:Complete; Done: [id number] Patient Instructions Please bring all medicines, vitamins, [...] pulmonary embolism. Recently follow-up CT scan at [facility] revealed resolution of the pulmonary emboli. Some other pathology was noted with densities requiring follow-up imaging in 3 to 6 months which has been arranged through his PCP. He is currently anticoagulated with Eliquis. The patient is contemplating further dental work in December which he should be able to hold anticoagulation prior to. Recent nuclear stress test at [facility] was reviewed and shared with the patient and was normal. He is also known to have normal ejection fraction. He currently has no complaint to report physical examination was only remarkable for 8 pounds weight gain from last visit. He is now in the obesity range recent medical record from [facility] were reviewed with the patient and [...] palpitations, but (more content not included)... Normal [employer] Tobacco Screening.on Fall risk assessment a) No falls within the last year [facility] [employer] 250 DO Work Phone: Tobacco use status CP b) No [facility] [employer] 250 DO Work Phone: Tobacco Screening. Yes [facility] [employer] 250 DO Work Phone: CTA CHEST WO [...] by: BRITANY TSANG Date: 2021-11-05 11:08 Normal [facility] NM STRESS/REST MULTIon 10-17 NM STRESS/REST MULTI Patient: ERIK MORALES Exam Date: 10/17/2021 : 1955 Gender:M Ordering : DR RADAMES WITT . Admission #: [id number] Family : Order #: [id number] CLICK HERE TO VIEW EXAM RADIOLOGY REPORT [...] M.D. on 10/17/2021 at 13:48 Normal [facility] T4, T3U, FTI LABCORPon 10-10 Free Thyroxine Index 2.1 Normal 1.2-4.9 [facility] Comment on above: Performed By: #### E RUR #### [facility] [address] [place] [address] Dr. Arielle Biswas T3 Uptake 28 % Normal 24-39 [facility] Comment on above: Performed By: #### E RUR #### [facility] [address] [place] [address] Dr. Arielle Biswas T4 [Mass/Vol] 7.5 ug/dL Normal 4.5-12.0 [facility] Comment on above: Performed By: #### E RUR #### [facility] [address] [place] [address] Dr. Arielle Biswas BNPon 10-09-2021 Natriuretic peptide B (Bld) [Mass/Vol] 319.0 pg/mL Normal <=900.0 [facility] Comment on above: Performed By: #### B METAL TRIMMER, TSH, CMP #### [facility] [address] [place] [address] Dr. Arielle Biswas CBC AUTO DIFFon 10-09-2021 BASO # 0.1 103/ul Normal 0.0-0.1 [facility] Comment on above: Performed By: #### C BC #### [facility] [address] [place] [address] Dr. Arielle Biswas Basophils/100 WBC (Bld) 1.3 % Normal 0.2-2.0 [facility] Comment on above: Performed By: #### C BC #### [facility] [address] [place] [address] Dr. Arielle Biswas EO # 0.2 103/ul Normal 0.0-0.7 [facility] [place] [facility] Comment on above: Performed By: #### C BC #### [facility] [address] [place] [address] Dr. Arielle Biswas Eosinophils/100 WBC (Bld) 3.0 % Normal 0.9-7.0 [facility] Comment on above: Performed By: #### C BC #### [facility] [address] [place] [address] Dr. Arielle Bisaws Erythrocyte distribution width (RBC) [Ratio] 13.5 % Normal 11.0-15.0 [facility] Comment on above: Performed By: #### C BC #### [facility] [address] [place] [address] Dr. Arielle Biswas Hematocrit (Bld) [Volume fraction] 41.8 % Critically low 42.0-54.0 [facility] Comment on above: Performed By: #### C BC #### [facility] [address] [place] [address] Dr. Arielle Biswas Hemoglobin (Bld) [Mass/Vol] 13.6 g/dL Critically low 14.0-18.0 [facility] Comment on above: Performed By: #### C BC #### [facility] [address] [place] [address] Dr. Arielle Biswas IG # 0.03 10e3/ul Normal 0.00-0.03 [facility] Comment on above: Performed By: #### C BC #### [facility] [address] [place] [address] Dr. Arielle Biswas IG % 0.4 % Normal 0.0-0.5 [facility] Comment on above: Performed By: #### C BC #### [facility] [address] [place] [address] Dr. Arielle Biswas LYMPH # 1.2 103/ul Normal 1.2-3.8 [facility] Comment on above: Performed By: #### C BC #### [facility] [address] [place] [address] Dr. Arielle Biswas Lymphocytes/100 WBC (Bld) 16.5 % Critically low 20.5-60.0 [facility] Comment on above: Performed By: #### C BC #### [facility] [address] [place] [address] Dr. Arielle Biswas MANUAL DIFF REQ NO Normal [facility] Comment on above: Performed By: #### C BC #### [facility] [address] [place] [address] Dr. Arielle Biswas MCH (RBC) [Entitic mass] 31.2 pg Normal 25.9-34.0 [facility] Comment on above: Performed By: #### C BC #### [facility] [address] [place] [address] Dr. Arielle Biswas MCHC (RBC) [Mass/Vol] 32.5 g/dL Normal 29.9-35.2 [facility] Comment on above: Performed By: #### C BC #### [facility] [address] [place] [address] Dr. Arielle Biswas MCV (RBC) [Entitic vol] 95.9 fL Critically high 80.0-94.0 [facility] Comment on above: Performed By: #### C BC #### [facility] [address] [place] [address] Dr. Arielle Biswas MONO # 0.8 103/ul Normal 0.3-0.8 [facility] Comment on above: Performed By: #### C BC #### [facility] [address] [place] [address] Dr. Arielle Biswas Monocytes/100 WBC (Bld) 11.5 % Normal 1.7-12.0 [facility] Comment on above: Performed By: #### C BC #### [facility] [address] [place] [address] Dr. Arielle Biswas NEUT # 4.7 103/ul Normal 1.4-6.5 [facility] Comment on above: Performed By: #### C BC #### [facility] [address] [place] [address] Dr. Arielle Biswas Neutrophils/100 WBC (Bld) 67.3 % Normal 43.0-75.0 [facility] Comment on above: Performed By: #### C BC #### [facility] [address] [address] [address] Arielle Biswas Platelet mean volume (Bld) [Entitic vol] 10.2 fL Normal 9.5-13.5 [facility] Comment on above: Performed By: #### C BC #### [facility] [address] [place] [address] Dr. Arielle Biswas PLT 243 103/ul Normal 150-450 [facility] Comment on above: Performed By: #### C BC #### [facility] [address] [address] [address] Arielle Biswas RBC 4.36 106/ul Critically low 4.70-6.10 [facility] Comment on above: Performed By: #### C BC #### [facility] [address] [place] [address] Dr. Arielle Biswas WBC 7.0 103/ul Normal 4.0-11.0 [facility] Comment on above: Performed By: #### C BC #### [facility] [address] [place] [address] Dr. Arielle Biswas D-DIMERon 10-09-2021 D-DIMER 0.30 mg/L FEU Normal <=0.59 [facility] Comment on above: Performed By: #### E RUR #### [facility] [address] [place] [address] Dr. Arielle Biswas D-DIMER COMMENTS SEE BELOW Normal [facility] Comment on above: Result Comment: [...] hospitalization. Performed By: #### E RUR #### [facility] [address] [place] [address] Dr. Arielle Biswas PROF 14(COMP METB)on 022 Albumin [Mass/Vol] 3.0 g/dL Critically low 3.4-5.[address] [facility] Comment on above: Performed By: #### B METAL TRIMMER, TSH, CMP #### [facility] [address] [address] [address] Arielle Biswas Albumin/Globulin [Mass ratio] 0.8 {ratio} Normal [facility] Comment on above: Performed By: #### B METAL TRIMMER, TSH, CMP #### [facility] [address] [address] [address] Arielle Biswas ALP [Catalytic activity/Vol] 120 U/L Critically high 46-116 [facility] Comment on above: Performed By: #### B METAL TRIMMER, TSH, CMP #### [facility] [address] [address] [address] Arielle Biswas ALT [Catalytic activity/Vol] 21 U/L Normal 16-63 [facility] Comment on above: Performed By: #### B METAL TRIMMER, TSH, CMP #### [facility] [address] [address] [address] Arielle Biswas Anion gap [Moles/Vol] 9.9 mmol/L Normal [facility] Comment on above: Performed By: #### B METAL TRIMMER, TSH, CMP #### [facility] [address] [address] [address] Arielle Biswas AST [Catalytic activity/Vol] 20 U/L Normal 15-37 [facility] Comment on above: Performed By: #### B METAL TRIMMER, TSH, CMP #### [facility] [address] [address] [address] Arielle Biswas Bilirubin [Mass/Vol] 0.6 mg/dL Normal 0.2-1.0 [facility] Comment on above: Performed By: #### B METAL TRIMMER, TSH, CMP #### [facility] [address] [address] [address] Arielle Biswas Calcium [Mass/Vol] 8.8 mg/dL Normal 8.5-10.1 [facility] Comment on above: Performed By: #### B METAL TRIMMER, TSH, CMP #### [facility] [address] [address] [address] Arielle Biswas Chloride [Moles/Vol] 103 mmol/L Normal 98-107 [facility] Comment on above: Performed By: #### B METAL TRIMMER, TSH, CMP #### [facility] [address] [address] [address] Arielle Biswas CO2 [Moles/Vol] 29.0 mmol/L Normal 21.0-32.0 [facility] Comment on above: Performed By: #### B METAL TRIMMER, TSH, CMP #### [facility] [address] [address] [address] Arielle Biswas Creatinine [Mass/Vol] 1.23 mg/dL Normal 0.70-1.30 [facility] Comment on above: Performed By: #### B METAL TRIMMER, TSH, CMP #### [facility] [address] [place] [address] Dr. Arielle Biswas EGFR-AF MOROCCAN >60 Normal >=60 [facility] Comment on above: Performed By: #### B METAL TRIMMER, TSH, CMP #### [facility] [address] [place] [address] Dr. Arielle Biswas EGFR-NON AF MOROCCAN 59 mL/min/1.73m2 Critically low >=60 [facility] Comment on above: Performed By: #### B METAL TRIMMER, TSH, CMP #### [facility] [address] [place] [address] Dr. Arielle Biswas Globulin (S) [Mass/Vol] 3.7 g/dL Normal [facility] Comment on above: Performed By: #### B METAL TRIMMER, TSH, CMP #### [facility] [address] [place] [address] Dr. Arielle Biswas Glucose [Mass/Vol] 95 mg/dL Normal 74-106 [facility] Comment on above: Performed By: #### B METAL TRIMMER, TSH, CMP #### [facility] [address] [address] [address] Arielle Biswas Potassium [Moles/Vol] 3.9 mmol/L Normal 3.5-5.1 [facility] Comment on above: Performed By: #### B METAL TRIMMER, TSH, CMP #### [facility] [address] [place] [address] Dr. Arielle Biswas Protein [Mass/Vol] 6.7 g/dL Normal 6.4-8.2 [facility] Comment on above: Performed By: #### B METAL TRIMMER, TSH, CMP #### [facility] [address] [place] [address] Dr. Arielle Biswas Sodium [Moles/Vol] 138 mmol/L Normal 136-145 [facility] Comment on above: Performed By: #### B METAL TRIMMER, TSH, CMP #### [facility] [address] [place] [address] Dr. Arielle Biswas Urea nitrogen [Mass/Vol] 13.0 mg/dL Normal 7.0-18.0 [facility] Comment on above: Performed By: #### B METAL TRIMMER, TSH, CMP #### [facility] [address] [place] [address] Dr. Arielle Biswas Urea nitrogen/Creatinine [Mass ratio] 10.6 mg/mg Normal [facility] Comment on above: Performed By: #### B METAL TRIMMER, TSH, CMP #### [facility] [address] [place] [address] Dr. Arielle Biswas TSHon 10-09-2021 TSH 0.393 uIU/mL Normal 0.358-3.740 [facility] Comment on above: Performed By: #### B METAL TRIMMER, TSH, CMP #### [facility] [address] [place] [address] Dr. Arielle Biswas Tobacco Screening.on 022 Adult depression screening assessment No [facility] [place] [address] DO Work Phone: Fall risk assessment a) No falls within the last year [facility] [place] [address] DO Work Phone: Tobacco use status CPHS b) No [facility] [place] [address] DO Work Phone: CARDIAC DAVON 3-6on 2 CK [Catalytic activity/Vol] 80 U/L Normal 39-308 [facility] Comment on above: Performed By: #### E RUR #### [facility] [address] [address] [address] Arielle Biswas CK.MB [Mass/Vol] 2.19 ng/mL Normal <=3.60 [facility] Comment on above: Performed By: #### E RUR #### [facility] [address] [address] [address] Arielle Biswas HSTROP 152.1 pg/mL Critically high 4.0-76.1 [facility] Comment on above: Result Comment: CUT- OFF POINTS HAVE BEEN ESTABLISHED BASED ON THE FOURTH UNIVERSAL DEFINITIONS OF MYOCARDIAL INFARCTION. THE UPPER REFERENCE LIMIT (URL) OF TROPONIN, DEFINED THE 99TH PERCENTILE OF cTnI DISTRIBUTION IN A REFERENCE POPULATION, HAS BEEN CONFIRMED THE DECISION THRESHOLD FOR HI DIAGNOSIS. repeated Performed By: #### E RUR #### [facility] [address] [place] [address] Dr. Arielle Biswas CARDIAC DAVON ADMITon 022 CK [Catalytic activity/Vol] 32 U/L Critically low 39-308 [facility] Comment on above: Performed By: #### B MANJULA ESTESDM #### [facility] [address] [place] [address] Dr. Arielle Biswas CK.MB [Mass/Vol] 2.01 ng/mL Normal <=3.60 [facility] Comment on above: Performed By: #### B FRANKLYN, CMADM #### [facility] [address] [place] [address] Dr. Arielle Biswas HSTROP 144.5 pg/mL Critically high 4.0-76.1 [facility] Comment on above: Result Comment: CUT- OFF POINTS HAVE BEEN ESTABLISHED BASED ON THE FOURTH UNIVERSAL DEFINITIONS OF MYOCARDIAL INFARCTION. THE UPPER REFERENCE LIMIT (URL) OF TROPONIN, DEFINED THE 99TH PERCENTILE OF cTnI DISTRIBUTION IN A REFERENCE POPULATION, HAS BEEN CONFIRMED THE DECISION THRESHOLD FOR HI DIAGNOSIS. repeated Performed By: #### B FRANKLYN, CMADM #### [facility] [address] [place] [address] Dr. Arielle Bsiwas PJ 39 ng/mL Normal 16-96 [facility] Comment on above: Performed By: #### B MP, CMADM #### [facility] [address] [place] [address] Dr. Arielle Biswas CBC AUTO DIFFon 07-14-2021 BASO # 0.1 103/ul Normal 0.0-0.1 [facility] Comment on above: Performed By: #### E RUR #### [facility] [address] [place] [address] Dr. Arielle Biswas Basophils/100 WBC (Bld) 0.5 % Normal 0.2-2.0 [facility] Comment on above: Performed By: #### E RUR #### [facility] [address] [place] [address] Dr. Arielle Biswas EO # 0.1 103/ul Normal 0.0-0.7 [facility] Comment on above: Performed By: #### E RUR #### [facility] [address] [place] [address] Dr. Arielle Biswas Eosinophils/100 WBC (Bld) 0.6 % Critically low 0.9-7.0 [facility] Comment on above: Performed By: #### E RUR #### [facility] [address] [place] [address] Dr. Arielle Biswas Erythrocyte distribution width (RBC) [Ratio] 14.6 % Normal 11.0-15.0 [facility] Comment on above: Performed By: #### E RUR #### [facility] [address] [place] [address] Dr. Arielle Biswas Hematocrit (Bld) [Volume fraction] 45.5 % Normal 42.0-54.0 [facility] Comment on above: Performed By: #### E RUR #### [facility] [address] [place] [address] Dr. Arielle Biswas Hemoglobin (Bld) [Mass/Vol] 14.5 g/dL Normal 14.0-18.0 [facility] Comment on above: Performed By: #### E RUR #### [facility] [address] [place] [address] Dr. Arielle Biswas IG # 0.13 10e3/ul Critically high 0.00-0.03 [facility] Comment on above: Performed By: #### E RUR #### [facility] [address] [place] [address] Dr. Arielle Biswas IG % 0.8 % Critically high 0.0-0.5 [facility] Comment on above: Performed By: #### E RUR #### [facility] [address] [place] [address] Dr. Arielle Biswas LYMPH # 1.4 103/ul Normal 1.2-3.8 [facility] Comment on above: Performed By: #### E RUR #### [facility] [address] [place] [address] Dr. Arielle Biswas Lymphocytes/100 WBC (Bld) 8.7 % Critically low 20.5-60.0 [facility] Comment on above: Performed By: #### E RUR #### [facility] [address] [place] [address] Dr. Arielle Biswas MANUAL DIFF REQ NO Normal [facility] Comment on above: Performed By: #### E RUR #### [facility] [address] [place] [address] Dr. Arielle Biswas MCH (RBC) [Entitic mass] 30.5 pg Normal 25.9-34.0 [facility] Comment on above: Performed By: #### E RUR #### [facility] [address] [place] [address] Dr. Arielle Biswas MCHC (RBC) [Mass/Vol] 31.9 g/dL Normal 29.9-35.2 [facility] Comment on above: Performed By: #### E RUR #### [facility] [address] [place] [address] Dr. Arielle Biswas MCV (RBC) [Entitic vol] 95.6 fL Critically high 80.0-94.0 [facility] Comment on above: Performed By: #### E RUR #### [facility] [address] [place] [address] Dr. Arielle Biswas MONO # 1.1 103/ul Critically high 0.3-0.8 [facility] Comment on above: Performed By: #### E RUR #### [facility] [address] [place] [address] Dr. Arielle Biswas Monocytes/100 WBC (Bld) 7.1 % Normal 1.7-12.0 [facility] Comment on above: Performed By: #### E RUR #### [facility] [address] [place] [address] Dr. Arielle Biswas NEUT # 12.9 103/ul Critically high 1.4-6.5 [facility] Comment on above: Performed By: #### E RUR #### [facility] [address] [place] [address] Dr. Arielle Biswas Neutrophils/100 WBC (Bld) 82.3 % Critically high 43.0-75.0 [facility] Comment on above: Performed By: #### E RUR #### [facility] [address] [place] [address] Dr. Arielle Biswas Platelet mean volume (Bld) [Entitic vol] 9.7 fL Normal 9.5-13.5 [facility] Comment on above: Performed By: #### E RUR #### [facility] [address] [place] [address] Dr. Arielle Biswas PLT 206 103/ul Normal 150-450 [facility] Comment on above: Performed By: #### E RUR #### [facility] [address] [place] [address] Dr. Arielle Biswas RBC 4.76 106/ul Normal 4.70-6.10 [facility] Comment on above: Performed By: #### E RUR #### [facility] [address] [place] [address] Dr. Arielle Biswas WBC 15.6 103/ul Critically high 4.0-11.0 [facility] Comment on above: Performed By: #### E RUR #### [facility] [address] [place] [address] Dr. Arielle Biswas CTA CHEST WO W UMAon 07-14- 022 CTA CHEST WO W CON [...] H (more content not included)... Normal [facility] Covid-19 PCR (CVDTBH)on 06-25 SARS-CoV-2 (COVID-19) RNA ELKIN+probe Ql (Unsp spec) Not detected Normal NOT DETECTED [facility] Comment on above: Result Comment: When diagnostic testing is negative, the possibility of a false negative should be considered in the context of a patient's recent exposures and the presence of clinical signs and symptoms consistent with SARS-CoV-2. This test is not yet approved or cleared by the [place] Food and Drug Administration (FDA). This test was developed by [employer], [place], [place]. The performance characteristics of this test were validated by [facility]. The results are not intended to be used as the sole means for clinical diagnosis or patient management decisions. [facility] is authorized under Clinical Laboratory Improvement [...] for this test is supported by the [place] of Health and Human Service's declaration that [...] used). Performed By: #### E RUR #### [facility] [address] [address] [address] Arielle LYNCH URINE PROFILEon 2 Bilirubin Ql (U) Negative Normal NEGATIVE [facility] Comment on above: Performed By: #### E RUR #### [facility] [address] [place] [address] Dr. Arielle Biswas Clarity (U) CLEAR Normal CLEAR [facility] Comment on above: Performed By: #### E RUR #### [facility] [address] [place] [address] Dr. Arielle Biswas Color (U) LT. YELLOW Normal YELLOW [facility] Comment on above: Performed By: #### E RUR #### [facility] [address] [place] [address] Dr. Arielle Biswas ERUAHD A micrscopic examina tion will be performed if indicated. Normal [facility] Comment on above: Performed By: #### E RUR #### [facility] [address] [place] [address] Dr. Arielle Biswas Glucose Ql (U) Negative Normal NEGATIVE [facility] Comment on above: Performed By: #### E RUR #### [facility] [address] [place] [address] Dr. Arielle Biswas Hemoglobin Ql (U) Negative Normal NEGATIVE [facility] Comment on above: Performed By: #### E RUR #### [facility] [address] [place] [address] Dr. Arielle Biswas Ketones Ql (U) Negative Normal NEGATIVE [facility] Comment on above: Performed By: #### E RUR #### [facility] [address] [place] [address] Dr. Arielle Biswas LEUKOCYTES Negative Normal NEGATIVE [facility] Comment on above: Performed By: #### E RUR #### [facility] [address] [place] [address] Dr. Arielle Biswas Nitrite Ql (U) Negative Normal NEGATIVE [facility] Comment on above: Performed By: #### E RUR #### [facility] [address] [place] [address] Dr. Arielle Biswas pH (U) 6.0 [pH] Normal 5-9 [facility] Comment on above: Performed By: #### E RUR #### [facility] [address] [place] [address] Dr. Arielle Biswas SPEC GRAVITY 1.005 Normal 1.005-<=1.0 25 [facility] Comment on above: Performed By: #### E RUR #### [facility] [address] [place] [address] Dr. Arielle Biswas UA PROTEIN Negative Normal NEGATIVE/ TRACE [facility] Comment on above: Performed By: #### E RUR #### [facility] [address] [place] [address] Dr. Arielle Biswas UR MICRO IND NOT INDICATED Normal [facility] Comment on above: Performed By: #### E RUR #### [facility] [address] [place] [address] Dr. Arielle Biswas Urobilinogen Qn (U) 0.2 {Fernando'U}/dL Normal 0.2 - 1. 0 [facility] Comment on above: Performed By: #### E RUR #### [facility] [address] [place] [address] Dr. Arielle Biswas LACTATE/LACTIC ACIDon 2021 Lactate [Moles/Vol] 3.0 mmol/L Critically high 0.4-1.9 [facility] Comment on above: Result Comment: repe ated Performed By: #### E RUR #### [facility] [address] [place] [address] Dr. Arielle Biswas PROF CHEM 8 (BAS METB)on Anion gap [Moles/Vol] 14.0 mmol/L Normal [facility] Comment on above: Performed By: #### B AMANDA ESTES #### [facility] [address] [place] [address] Dr. Arielle Biswas Calcium [Mass/Vol] 8.9 mg/dL Normal 8.5-10.1 [facility] Comment on above: Performed By: #### B AMANDA ESTES #### [facility] [address] [place] [address] Dr. Arielle Biswas Chloride [Moles/Vol] 96 mmol/L Critically low 98-107 [facility] Comment on above: Performed By: #### B AMANDA ESTES #### [facility] [address] [address] [address] Arielle Biswas CO2 [Moles/Vol] 26.5 mmol/L Normal 21.0-32.0 [facility] Comment on above: Performed By: #### B MP, CMADM #### [facility] [address] [address] [address] Arielle Biswas Creatinine [Mass/Vol] 1.43 mg/dL Critically high 0.70-1.30 [facility] Comment on above: Performed By: #### B MP, CMADM #### [facility] [address] [address] [address] Arielle Biswas EGFR-AF MOROCCAN 60 mL/min/1.73m2 Normal >=[address] [facility] Comment on above: Performed By: #### B MP, CMADM #### [facility] [address] [address] [address] Arielle Biswas EGFR-NON AF MOROCCAN 50 mL/min/1.73m2 Critically low >=60 [facility] Comment on above: Performed By: #### B MP, CMADM #### [facility] [address] [address] [address] Arielle Biswas Glucose [Mass/Vol] 122 mg/dL Critically high 74-106 [facility] Comment on above: Performed By: #### B MP, CMADM #### [facility] [address] [address] [address] Arielle Biswas Potassium [Moles/Vol] 3.5 mmol/L Normal 3.5-5.1 [facility] Comment on above: Performed By: #### B MP, CMADM #### [facility] [address] [address] [address] Arielle Biswas Sodium [Moles/Vol] 133 mmol/L Critically low 136-[address] [facility] Comment on above: Performed By: #### B MP, CMADM #### [facility] [address] [address] [address] Arielle Biswas Urea nitrogen [Mass/Vol] 12.0 mg/dL Normal 7.0-18.0 [facility] Comment on above: Performed By: #### B MP, CMADM #### [facility] [address] [place] [address] Dr. Arielle Biswas Urea nitrogen/Creatinine [Mass ratio] 8.4 mg/mg Normal [facility] Comment on above: Performed By: #### B MP, CMADM #### [facility] [address] [place] [address] Dr. Arielle Biswas PROTIMEon 07-14-2021 INR Coag (PPP) [Relative time] 0.99 {INR} Normal [facility] Comment on above: Performed By: #### P TT, PT #### [facility] [address] [place] [address] Dr. Arielle Biswas INR GUIDELINES SEE BELOW Normal [facility] Comment on above: Result Comment: YANG RED INR: 2.0 - 3.0 CONDITIONS NOT LISTED BELOW 2.5 - 3.5 FOR PROSTHETIC HEART VALVE REPLACEMENT 2.5 - 3.5 RECURRENT THROMBOSIS Performed By: #### P TT, PT #### [facility] [address] [place] [address] Dr. Arielle Biswas PT Coag (PPP) [Time] 10.7 s Normal 9.0-11.6 [facility] Comment on above: Performed By: #### P TT, PT #### [facility] [address] [place] [address] Dr. Arielle Biswas PTTon 07-14-2021 aPTT Coag (Bld) [Time] 26.6 s Normal 22.3-36.2 [facility] Comment on above: Performed By: #### P TT, PT #### [facility] [address] [place] [address] Dr. Arielle Biswas Tobacco Screening.on 022 Fall risk assessment a) No falls within the last year [facility] [address] DO Work Phone: Tobacco use status CP b) No -[facility] 250 DO Work Phone: Tobacco Screening. Yes [facility] 250 DO Work Phone: Tobacco Screening.on 021 Fall risk assessment a) No falls within the last year [facility] 250 DO Work Phone: [phone] Tobacco use status [facility] b) No [facility] 250 DO Work Phone: [phone] Tobacco Screening.on 021 Fall risk assessment a) No falls within the last year [facility] 250 DO Work Phone: Tobacco use status CP b) No [facility] 250 DO Work Phone: Vital Signs Date Time Vital Sign Value Performing Clinician Facility 03-29-2024 11:47-0500 Blood Pressure Location ALAN HURST [facility] 03-29-2024 11:47-0500 Diastolic blood pressure 86 mm[Hg] ALANJANIS HURST [facility] 03-29-2024 11:47-0500 Heart rate 88 /min ALAN HURST [facility] 03-29-2024 11:47-0500 Systolic blood pressure 138 mm[Hg] ALANJANIS HURST [facility] 01-08-2024 10:04-0500 Body height 175.3 cm Cecilio Go MD Work Phone: [facility] 01-08-2024 10:04-0500 Body mass index (BMI) [Ratio] 30.72 kg/m2 Cecilio Go MD Work Phone: [facility] 01-08-2024 10:04-0500 Body weight 94.35 kg Cecilio Go MD Work Phone: [facility] 01-08-2024 10:04-0500 Diastolic blood pressure 82 mm[Hg] Cecilio Go MD Work Phone: [facility] 01-08-2024 10:04-0500 Heart rate 60 /min Cecilio Go MD Work Phone: [facility] 01-08-2024 10:04-0500 Systolic blood pressure 120 mm[Hg] Cecilio Go MD Work Phone: [facility] 11-17-2023 10:20-0400 Body height 175.26 cm MD Radames Witt Work Phone: [facility] 11-17-2023 10:20-0400 Body mass index (BMI) [Ratio] 30.4 kg/m2 MD Radames Witt Work Phone: [facility] 11-17-2023 10:20-0400 Body temperature 97.4 [degF] MD Radames Witt Work Phone: [facility] 11-17-2023 10:20-0400 Body weight 93.44 kg MD Radames Witt Work Phone: [facility] 11-17-2023 10:20-0400 Diastolic blood pressure 83 mm[Hg] MD Radames Witt Work Phone: [facility] 11-17-2023 10:20-0400 Heart rate 69 /min MD Radames Witt Work Phone: [facility] 11-17-2023 10:20-0400 Respiratory rate 20 /min MD Radames Witt Work Phone: [facility] 11-17-2023 10:20-0400 SaO2% (BldA) [Mass fraction] 95 % MD Radames Witt Work Phone: [facility] 11-17-2023 10:20-0400 Systolic blood pressure 164 mm[Hg] MD Radames Witt Work Phone: [facility] 08-21-2023 11:0400 Body height 175.26 cm MD Radames Witt Work Phone: [facility] 08-21-2023 11:11-0400 Body mass index (BMI) [Ratio] 29.9 kg/m2 MD Radames Witt Work Phone: [facility] 08-21-2023 11:11-0400 Body temperature 96.1 [degF] MD Radames Witt Work Phone: [facility] 08-21-2023 11:11-0400 Body weight 92.07 kg MD Radames Witt Work Phone: [facility] 08-21-2023 11:11-0400 Diastolic blood pressure 80 mm[Hg] MD Radames Witt Work Phone: [facility] 08-21-2023 11:11-0400 Heart rate 77 /min MD Radames Witt Work Phone: [facility] 08-21-2023 11:11-0400 SaO2% (BldA) [Mass fraction] 97 % MD Radames Witt Work Phone: [facility] 08-21-2023 11:11-0400 Systolic blood pressure 140 mm[Hg] MD Radames Witt Work Phone: [facility] [...] [facility] 12-23-2022 10:50-0400 Blood Pressure Location Marinoantoinette SPEAR [facility] 12-23-2022 10:50-0400 Diastolic blood pressure 62 mm[Hg] Marinoantoinette SPEAR [facility] 12-23-2022 10:50-0400 Heart rate 69 /min Marinoantoinette SPEAR [facility] 12-23-2022 10:50-0400 Respiratory rate 16 /min Marinoantoinette SPEAR [facility] 12-23-2022 10:50-0400 Systolic blood pressure 95 mm[Hg] Marino SPEAR [facility] 11-07-2022 10:56-0400 Body temperature 98.6 [degF] Radames Hoy Other Phone: [facility] 11-07-2022 10:56-0400 Diastolic blood pressure 69 mm[Hg] Radames Hoy Other Phone: [facility] 11-07-2022 10:56-0400 Heart rate 97 /min Radames Hoy Other Phone: [facility] 11-07-2022 10:56-0400 Respiratory rate 16 /min Radames Hoy Other Phone: [facility] 11-07-2022 10:56-0400 SaO2% (BldA) [Mass fraction] 96 % Radames Hoy Other Phone: [facility] 11-07-2022 10:56-0400 Systolic blood pressure 113 mm[Hg] Radames Hoy Other Phone: [facility] 10-30-2022 10:00-0400 Body height 175.26 cm Danna Violeta Other [employer] [facility] [employer] Other 10-30-2022 10:00-0400 Body mass index (BMI) [Ratio] 30.27 kg/m2 Danna Violeta Other [employer] Other 10-30-2022 10:00-0400 Body temperature 97 [degF] Danna Violeta Other [employer] Other 10-30-2022 10:00-0400 Body weight 92.99 kg Danna Violeta Other [employer] Other 10-30-2022 10:00-0400 Diastolic blood pressure 75 mm[Hg] Danna Violeta Other [employer] Other 10-30-2022 10:00-0400 Respiratory rate 20 /min Danna Violeta Other [employer] Other 10-30-2022 10:00-0400 SaO2% (BldA) [Mass fraction] 96 % Danna Violeta Other [employer] Other 10-30-2022 10:00-0400 Systolic blood pressure 116 mm[Hg] Danna Violeta Other [employer] Other 08-23-2022 12:57-0400 Body height 175.26 cm Radames Álvarez [employer] Work Phone: -[facility] [place] Work Phone: 08-23-2022 12:57-0400 Body mass index (BMI) [Ratio] 30.57 kg/m2 Radames Álvarez [employer] Work Phone: -[facility] [place] Work Phone: 08-23-2022 12:57-0400 Body surface area Derived from formula 2.1 m2 Radames Álvarez [employer] Work Phone: [facility] [place] Work Phone: 08-23-2022 12:57-0400 Body weight 93.9 kg Radames M [employer] Work Phone: -[facility] [place] Work Phone: 08-20-2022 11:30-0400 Body height 175.26 cm Danna Violeta Other [employer] Other 08-20-2022 11:30-0400 Body mass index (BMI) [Ratio] 30.42 kg/m2 Danna Violeta Other [employer] Other 08-20-2022 11:30-0400 Body temperature 96.8 [degF] Danna Violeta Other [employer] Other 08-20-2022 11:30-0400 Body weight 93.44 kg Danna Violeta Other [employer] Other 08-20-2022 11:30-0400 Diastolic blood pressure 80 mm[Hg] Danna Violeta Other [employer] Other 08-20-2022 11:30-0400 Respiratory rate 20 /min Danna Violeta Other [employer] Other 08-20-2022 11:30-0400 SaO2% (BldA) [Mass fraction] 97 % Danna Violeta Other [employer] Other 08-20-2022 11:30-0400 Systolic blood pressure 142 mm[Hg] Danna Violeta Other [employer] Other 08-15-2022 09:30-0400 Body height 175.26 cm Bianka Garcia Other [employer] Other 08-15-2022 09:30-0400 Body mass index (BMI) [Ratio] 30.57 kg/m2 Bianka Garcia Other [employer] Other 08-15-2022 09:30-0400 Body temperature 96.7 [degF] Bianka Merritto Other [employer] Other 08-15-2022 09:30-0400 Body weight 93.9 kg Bianka Merritto Other [employer] Other 08-15-2022 09:30-0400 Diastolic blood pressure 70 mm[Hg] Bianka Rossareliso Other [employer] Other 08-15-2022 09:30-0400 SaO2% (BldA) [Mass fraction] 98 % Bianka Rossareliso Other [employer] Other 08-15-2022 09:30-0400 Systolic blood pressure 118 mm[Hg] Bianka Garcia Other [employer] Other 06-04-2022 11:33-0400 Body height 175.26 cm Radames M Hoy Work Phone: [facility] 250 DO Work Phone: 06-04-2022 11:33-0400 Body mass index (BMI) [Ratio] 30.13 kg/m2 Radames M Hoy Work Phone: [facility] 250 DO Work Phone: 06-04-2022 11:33-0400 Body surface area Derived from formula 2.08 m2 Radames M Hoy Work Phone: [facility] 250 DO Work Phone: 06-04-2022 11:33-0400 Body weight 92.53 kg Radames Preeti Hoy Work Phone: [facility] 250 DO Work Phone: 06-04-2022 11:33-0400 Diastolic blood pressure 72 mm[Hg] Radames M Hoy Work Phone: [facility] 250 DO Work Phone: 06-04-2022 11:33-0400 Heart rate 68 /min Radames M Hoy Work Phone: [facility] 250 DO Work Phone: 06-04-2022 11:33-0400 Systolic blood pressure 110 mm[Hg] Radames M Hoy Work Phone: [facility] 250 DO Work Phone: 02-05-2022 15:30-0500 Body height 175.26 cm Danna Mcdaniel Other [employer] [facility] [employer] Other 02-05-2022 15:30-0500 Body mass index (BMI) [Ratio] 29.97 kg/m2 Danna Violeta Other [employer] Other 02-05-2022 15:30-0500 Body temperature 98.4 [degF] Danna Violeta Other [employer] Other 02-05-2022 15:30-0500 Body weight 92.08 kg Danna Vioelta Other [employer] Other 02-05-2022 15:30-0500 Diastolic blood pressure 83 mm[Hg] Danna Violeta Other [employer] Other 02-05-2022 15:30-0500 Respiratory rate 20 /min Danna Violeta Other [employer] Other 02-05-2022 15:30-0500 SaO2% (BldA) [Mass fraction] 96 % Danna Violeta Other [employer] Other 02-05-2022 15:30-0500 Systolic blood pressure 143 mm[Hg] Danna Violeta Other [employer] Other 12-11-2021 11:39-0400 Body height 175.26 cm Jean A Naderer Work Phone: [employer] [place] 250 DO Work Phone: 12-11-2021 11:39-0400 Body mass index (BMI) [Ratio] 30.72 kg/m2 Jean A Naderer [employer] Phone: [employer] [place] 250 DO Work Phone: 12-11-2021 11:39-0400 Body surface area Derived from formula 2.1 m2 Jean A Naderer Work Phone: [facility] [employer] 250 DO Work Phone: 12-11-2021 11:39-0400 Body weight 94.35 kg Jean Mejiaerer Work Phone: [facility] [employer] 250 DO Work Phone: 12-11-2021 11:39-0400 Diastolic blood pressure 72 mm[Hg] Jean Mejiaerer Work Phone: [facility] [employer] 250 DO Work Phone: 12-11-2021 11:39-0400 Heart rate 72 /min Jean Mejiaerer Work Phone: [facility] [employer] 250 DO Work Phone: 12-11-2021 11:39-0400 Systolic blood pressure 124 mm[Hg] Jean Mejiaerer Work Phone: [facility] [employer] 250 DO Work Phone: 08-21-2021 15:00-0400 Body height 175.26 cm Danna Violeta Other [employer] Other 08-21-2021 15:00-0400 Body mass index (BMI) [Ratio] 28.35 kg/m2 Danna Violeta Other [employer] Other 08-21-2021 15:00-0400 Body temperature 97.5 [degF] Danna Violeta Other [employer] Other 08-21-2021 15:00-0400 Body weight 87.09 kg Danna Violeta Other [employer] Other 08-21-2021 15:00-0400 Diastolic blood pressure 70 mm[Hg] Danna Violeta Other [employer] Other 08-21-2021 15:00-0400 Respiratory rate 20 /min Danna Violeta Other [employer] Other 08-21-2021 15:00-0400 SaO2% (BldA) [Mass fraction] 94 % Danna Violeta Other [employer] Other 08-21-2021 15:00-0400 Systolic blood pressure 110 mm[Hg] Danna Violeta Other [employer] Other 08-15-2021 11:30-0400 Body height 175.26 cm Julian Matthews Other [employer] Other 08-15-2021 11:30-0400 Body mass index (BMI) [Ratio] 28.06 kg/m2 Julian Matthews Other [employer] Other 08-15-2021 11:30-0400 Body temperature 97.5 [degF] Julian Matthews Other [employer] Other 08-15-2021 11:30-0400 Body weight 86.18 kg Julian Matthews Other [employer] Other 08-15-2021 11:30-0400 Diastolic blood pressure 68 mm[Hg] Julian Matthews Other [employer] Other 08-15-2021 11:30-0400 SaO2% (BldA) [Mass fraction] 98 % Julian Matthews Other [employer] Other 08-15-2021 11:30-0400 Systolic blood pressure 102 mm[Hg] Julian Matthews Other [employer] Other 08-02-2021 08:32-0400 Body height 175.26 cm Jean Saeed Naderer Work Phone: [facility] 250 DO Work Phone: 08-02-2021 08:32-0400 Body mass index (BMI) [Ratio] 28.8 kg/m2 Jean A Naderer Work Phone: [facility] 250 DO Work Phone: 08-02-2021 08:32-0400 Body surface area Derived from formula 2.04 m2 Jean Christophe Naderer Work Phone: [facility] 250 DO Work Phone: 08-02-2021 08:32-0400 Body weight 88.45 kg Jean Saeed Naderer Work Phone: [facility] 250 DO Work Phone: 08-02-2021 08:32-0400 Diastolic blood pressure 62 mm[Hg] Jean Saeed Naderer Work Phone: [facility] 250 DO Work Phone: 08-02-2021 08:32-0400 Heart rate 68 /min Jean A Naderer Work Phone: [facility] 250 DO Work Phone: 08-02-2021 08:32-0400 Systolic blood pressure 108 mm[Hg] Jean A Naderer Work Phone: [facility] 250 DO Work Phone: 07-14-2021 00:00-0400 60 1 Jean A Naderer Work Phone: [facility] 250 DO Work Phone: Comment on above: [id number] 04-30-2021 13:22-0500 Body height 175.26 cm Jean A Naderer Work Phone: [facility] 250 DO Work Phone: 04-30-2021 13:22-0500 Body mass index (BMI) [Ratio] 29.45 kg/m2 Jean A Naderer Work Phone: [facility] 250 DO Work Phone: 04-30-2021 13:22-0500 Body surface area Derived from formula 2.06 m2 Jean A Naderer Work Phone: [facility] 250 DO Work Phone: 04-30-2021 13:22-0500 Body weight 90.45 kg Jean A Naderer Work Phone: [facility] 250 DO Work Phone: 04-30-2021 13:22-0500 Diastolic blood pressure 90 mm[Hg] Jean A Naderer Work Phone: [facility] 250 DO Work Phone: 04-30-2021 13:22-0500 Heart rate 69 /min Jean A Naderer Work Phone: [facility] 250 DO Work Phone: 04-30-2021 13:22-0500 Systolic blood pressure 134 mm[Hg] Jean A Naderer Work Phone: [facility] 250 DO Work Phone: 02-20-2021 14:06-0500 Body height 175.26 cm Jean A Naderer Work Phone: [facility] 250 DO Work Phone: 02-20-2021 14:06-0500 Body mass index (BMI) [Ratio] 29.98 kg/m2 Jean A Naderer Work Phone: [facility] 250 DO Work Phone: 02-20-2021 14:06-0500 Body surface area Derived from formula 2.08 m2 Jean Christophe Naderer Work Phone: [facility] 250 DO Work Phone: 02-20-2021 14:06-0500 Body weight 92.08 kg Jean A Naderer Work Phone: [facility] 250 DO Work Phone: 02-20-2021 14:06-0500 Diastolic blood pressure 76 mm[Hg] Jean Saeed Naderer Work Phone: [facility] 250 DO Work Phone: 02-20-2021 14:06-0500 Heart rate 80 /min Jean Saeed Naderer Work Phone: [facility] 250 DO Work Phone: 02-20-2021 14:06-0500 Systolic blood pressure 110 mm[Hg] Jean Saeed Naderer Work Phone: [facility] 250 DO Work Phone: 02-06-2021 16:10-0500 Diastolic blood pressure 84 mm[Hg] Jean Saeed Naderer Work Phone: [facility] 250 DO Work Phone: 02-06-2021 16:10-0500 Systolic blood pressure 130 mm[Hg] Jean A Naderer Work Phone: [facility] 250 DO Work Phone: 02-06-2021 15:37-0500 Body height 175.26 cm Jean A Naderer Work Phone: [facility] 250 DO Work Phone: 02-06-2021 15:37-0500 Body mass index (BMI) [Ratio] 30.13 kg/m2 Jean Saeed Naderer Work Phone: [facility] [employer] 250 DO Work Phone: 02-06-2021 15:37-0500 Body surface area Derived from formula 2.08 m2 Jean Saeed Naderer Work Phone: [facility] [employer] 250 DO Work Phone: 02-06-2021 15:37-0500 Body weight 92.53 kg Jean A Naderer Work Phone: [facility] [employer] 250 DO Work Phone: 02-06-2021 15:37-0500 Diastolic blood pressure 90 mm[Hg] Jean Saeed Naderer Work Phone: [facility] [employer] 250 DO Work Phone: 02-06-2021 15:37-0500 Heart rate 125 /min Jean Saeed Naderer Work Phone: [facility] [employer] 250 DO Work Phone: 02-06-2021 15:37-0500 Systolic blood pressure 128 mm[Hg] Jean Christophe Naderer Work Phone: [facility] [employer] 250 DO Work Phone: 11-30-2020 11:30-0400 Body height 175.26 cm Danna Violeta Other [employer] Other 11-30-2020 11:30-0400 Body mass index (BMI) [Ratio] 29.68 kg/m2 Danna Violeta Other [employer] Other 11-30-2020 11:30-0400 Body weight 91.17 kg Danna Violeta Other [employer] Other 11-30-2020 11:30-0400 Diastolic blood pressure 83 mm[Hg] Danna Violeta Other [employer] Other 11-30-2020 11:30-0400 Respiratory rate 20 /min Danna Violeta Other [employer] Other 11-30-2020 11:30-0400 SaO2% (BldA) [Mass fraction] 98 % Danna Violeta Other [employer] Other 11-30-2020 11:30-0400 Systolic blood pressure 126 mm[Hg] Danna Violeta Other [employer] Other Encounters Encounter Date Encounter Type Care Provider Facility Start: 03-31-2025 ambulatory ALAN Colmenares ty:[facility] [place] Start: 03-24-2025 ambulatory ALAN Colmenares ty:[facility] [place] Start: 04-19-2024 End: 04-19-2024 ambulatory Maribell Leigh MD Facility:[facility] [place] Start: 03-29-2024 End: 03-29-2024 ambulatory ALAN HURST Facility:[facility] [place] Start: 03-29-2024 End: 03-29-2024 Patient encounter procedure ALAN HURST [facility] [place] Start: 03-22-2024 End: 03-22-2024 ambulatory Marino SPEAR Facility[facility] Start: 03-22-2024 End: 03-22-2024 Lab Drop off Marino SPEAR [facility] Start: 03-22-2024 End: 03-22-2024 ambulatory Marino SPEAR Facility:[facility] [place] Start: 03-22-2024 End: 03-22-2024 Patient encounter procedure Marino SPEAR [facility] [place] Start: 01-08-2024 End: 01-08-2024 Office outpatient visit 25 minutes Cecilio Go MD Work Phone: [facility] Comment on above: Essential hypertensi on; Mitral valve insufficiency, unspecified etiology; Pulmonary fibrosis (Multi); Pulmonary embolism, unspecified chronicity, unspecified pulmonary embolism type, unspecified whether acute cor pulmonale present (Multi); Mixed hyperlipidemia; Abdominal aortic aneurysm (AAA) without rupture, unspecified part ([facility]); Lung crackles; Class 1 obesity due to excess calories without serious comorbidity with body mass index (BMI) of 30.0 to 30.9 in adult Start: 01-08-2024 End: 01-08-2024 ambulatory [facility] Start: 12-26-2023 ambulatory Marino Washingtoni ty:CHRISTIANO Werner Start: 11-17-2023 End: 11-17-2023 ambulatory MD Radames Witt Work Phone: [facility] Work Phone: Start: 11-17-2023 End: 11-17-2023 Patient encounter procedure MD Radames Witt Work Phone: [facility] Work Phone: Start: 11-11-2023 End: 11-11-2023 Office outpatient visit 15 minutes Curtis Meléndez MD Work Phone: [facility] Comment on above: Lumbar pain (Primary Dx) Start: 11-11-2023 End: 11-11-2023 Subsequent hospital visit by physician Serene Shetty X-Ray 2 [facility] Comment on above: Lumbar pain Start: 11-11-2023 End: 11-11-2023 ambulatory CURTIS MELÉNDEZ [facility] Start: 09-22-2023 End: 09-22-2023 ambulatory Maribell Leigh MD Facility:[facility] [place] Start: 08-21-2023 End: 08-21-2023 ambulatory MD Radames Witt Work Phone: [facility] Work Phone: Start: 08-21-2023 End: 08-21-2023 Patient encounter procedure MD Radames Witt Work Phone: [facility] Work Phone: Start: 06-03-2023 End: 06-03-2023 Office outpatient visit 15 minutes Curtis Meléndez MD Work Phone: [facility] Comment on above: Low back pain, unspe cified back pain laterality, unspecified chronicity, unspecified whether sciatica present (Primary Dx); Lumbar pain Start: 06-03-2023 End: 06-03-2023 Subsequent hospital visit by physician Serene Ayers101 X-Ray 2 [facility] Comment on above: Lumbar pain Start: 06-03-2023 End: 06-03-2023 ambulatory CURTIS MELÉNDEZ [facility] Start: 05-19-2023 End: 05-19-2023 ambulatory Maribell Leigh MD Facility: [place] Start: 04-14-2023 End: 04-14-2023 Patient encounter procedure MD Jean Nicholson Work Phone: [facility] [place] Work Phone: Start: 04-14-2023 End: 04-14-2023 ambulatory MD Jean Nicholson Work Phone: [facility] Work Phone: Start: 04-09-2023 End: 04-09-2023 ambulatory MD Jean Nicholson Work Phone: [facility] Work Phone: Start: 04-09-2023 End: 04-09-2023 Patient encounter procedure MD Jean Nicholson Work Phone: [facility] Work Phone: Start: 03-04-2023 End: 03-04-2023 Patient encounter procedure MD Jean Nicholson Work Phone: [facility] Work Phone: Start: 03-04-2023 End: 03-04-2023 ambulatory MD Jean Nicholson Work Phone: [facility] Work Phone: Start: 02-28-2023 End: 02-28-2023 Office outpatient visit 15 minutes Cutris Meléndez MD Work Phone: [facility] Comment on above: Low back pain, unspe cified back pain laterality, unspecified chronicity, unspecified whether sciatica present (Primary Dx) Start: 02-28-2023 End: 02-28-2023 ambulatory ROANOKE RAPIDS Krista [facility] Start: 12-23-2022 End: 12-23-2022 Patient encounter procedure Marino SPEAR [facility] [facility] Start: 11-19-2022 Patient encounter procedure Radames Witt Work Phone: [facility] [place]: Start: 11-19-[address] Curtis Meléndez Facility:[id number] Start: 11-04-2022 End: 11-07-2022 Evaluation and management of inpatient [facility] [id number] Start: 10-30-2022 End: 10-30-2022 ambulatory Danna Violeta Other [employer] Other Start: 10-30-2022 Office outpatient vi sit 25 minutes Danna Violeta [facility] Start: 10-22-2022 Patient encounter procedure [facility] Work Phone: Start: 10-22-[address] Curtis Meléndez Facility:[id number] Start: 10-22-2022 Encounter for other preprocedural examination Dr. Curtis Meléndez [facility] Start: 10-21-[address] Radames Witt Facility:[id number] Start: 10-21-2022 Encounter for preprocedural cardiovascular examination Dr. Curtis Meléndez [facility] Start: 10-21-2022 Encounter for preprocedural laboratory examination Dr. Curtis Meléndez [facility] Start: 09-19-2022 Patient encounter procedure Radames Witt Work Phone: [facility] [place]: Start: 09-19-[address] Radames Witt Facility:[id number] Start: 08-23-2022 Chart Update Radames Witt Work Phone[place] [facility] [place]: Start: 08-23-2022 Patient encounter procedure Radames Witt Work Phone: [facility] [place]: Start: 08-23-[address] Radames Witt Facility:[id number] Start: 08-20-2022 End: 08-20-2022 ambulatory Danna Violeta Other [facility] [facility] [employer] Other Start: 08-20-2022 Office outpatient vi sit 25 minutes Danna Violeta [facility] Start: 08-15-2022 End: 08-15-2022 Patient encounter procedure Bianka Garcia [facility] Start: 08-15-2022 End: 08-15-2022 ambulatory MD Jean Nicholson Work Phone: [employer] [facility] [employer] Other Start: 07-31-2022 Chart Update Radames Witt Work Phone: [facility] 250 DO Work Phone: Start: 07-31-[address] Cecilio Go Facility:[id number] Start: 07-02-2022 End: 07-03-[address] IRAIS LORENZANA Facility:H1 Start: 06-05-2022 AUDIT Radames Witt Work Phone: [facility] Work Phone: Start: 06-04-2022 Patient encounter procedure Radames Álvarez Millicent Work Phone: [facility] 250 DO Work Phone: Start: 06-04-[address] Radames Witt Facility: Start: 05-09-2022 End: 05-10-2022 ambulatory LAUREN BAUMANN . Facility:H1 Start: 04-19-2022 Rx Renewal Jean Nicholson Work Phone: [facility] 250 DO Work Phone: Start: 02-18-2022 End: 02-19-[address] BRITANY TSANG Facility:H1 Start: 02-07-2022 End: 02-08-2022 ambulatory LAUREN BAUMANN . Facility:H1 Start: 02-05-2022 End: 02-05-2022 ambulatory Danna Violeta Other [facility] [employer] Other Start: 02-05-2022 Office outpatient vi sit 25 minutes Danna Violeta [facility] Start: 12-20-2021 End: 12-21-[address] MARINO SPEAR . Facility:H1 Start: 12-11-2021 Office outpatient vi sit 25 minutes Jean Nicholson Work Phone: [facility] DO Work Phone: Start: 12-11-[address] Jean Nicholson Facility: Start: 11-27-2021 End: 11-28-[address] LORENA ANDERSON . Facility:H1 Start: 11-27-2021 Rx Renewal Jean A Naderer Work Phone: [facility] 250 DO Work Phone: Start: 11-05-2021 End: 11-06-[address] BRITANY TSANG Facility:H1 Start: 10-17-2021 End: 10-18-[address] RADAMES WITT . Facility:H1 Start: 10-12-2021 Rx Renewal Jean Christophe Harrisr Work Phone: [facility] 250 DO Work Phone: Start: 10-09-2021 End: 10-10-2021 ambulatory KATHERINE MARTINEZ Facility:H1 Start: 08-30-2021 End: 08-31-2021 ambulatory LAUREN ABUMANN . Facility:H1 Start: 08-21-2021 End: 08-21-2021 ambulatory Danna Violeta Other [employer] Other Start: 08-21-2021 Office outpatient vi sit 25 minutes Danna Violeta [facility] Start: 08-16-2021 End: 08-16-2021 ambulatory Bianka Garcia Other [employer] Other Start: 08-16-2021 Telephone encounter Bianka Lira [facility] Start: 08-15-2021 End: 08-15-2021 ambulatory Julian Matthews Other [employer] Other Start: 08-15-2021 Office outpatient vi sit 25 minutes Julian Matthews [facility] Start: 08-02-2021 Office outpatient vi sit 25 minutes eJan Nicholson Work Phone: [facility] DO Work Phone: Start: 07-20-2021 End: 07-20-2021 ambulatory Bianka Garcia Other [employer] Other Start: 07-20-2021 Telephone encounter Bianka Lira [facility] Start: 07-14-2021 End: 07-14-2021 ambulatory CYNDI SIBLEY Facility: Start: 04-30-2021 Office outpatient vi sit 25 minutes Jean Nicholson Work Phone: [facility] 250 DO Work Phone: Start: 03-26-2021 Rx Renewal Jean [facility]r [facility] Work Phone: Start: 02-20-2021 Patient encounter procedure Jean Nicholson Work Phone: [facility] 250 DO Work Phone: Start: 11-30-2020 Office outpatient vi sit 25 minutes Danna Violeta [facility] Procedures Date Procedure Procedure Detail Performing Clinician Start: 11-11-2023 Radex spine lumbosac ral 2/3 views Curtis Meléndez MD Work Phone: Start: 08-21-2023 US scan of aorta MD Mike Witt Work Phone: Start: 06-03-2023 XR LUMBAR SPINE 2-3 VIEWS CURTIS MELÉNDEZ Start: 06-03-2023 Radex spine lumbosac ral 2/3 views Curtis Meléndez MD Work Phone: Start: 02-28-2023 XR LUMBAR SPINE 2-3 VIEWS CURTIS MELÉNDEZ Start: 11-04-2022 Lumbar spinal fusion Pa gemma SPEAR Start: 12-20-2021 PSA screening LAUREN Olmstead Comment on above: Performed By: #### P SAD #### [facility] [address] [place] [address] Dr. Arielle Biswas Start: 07-14-2021 Operation for pulmon brian embolism Marino SPEAR Start: 03-21-2016 Radical prostatectomy P marino SPEAR Start: 01-15-2016 Cystoscopy Marino BECKY BATISTA Start: 01-15-2016 Transrectal biopsy o f prostate using ultrasound guidance Marino SPEAR Colonoscopy Jean Mejiaerer Work Phone: Comment on above: Feb 2017; Colonoscopy Marino SPEAR Extraction of cataract Mario broussard SPEAR Operation on lung Jean A Nad erer Work Phone: Operative procedure on ankle Jean A Naderer Work Phone: Operative procedure on spinal structure Jean A Naderer Work Phone: Procedure on neck Jean A Nad erer Work Phone: Procedure on prostate Jean A Naderer Work Phone: Prostatectomy Jean A Naderer Work Phone: Tonsillectomy and adenoidectomy Jean A Naderer Work Phone: Tooth extraction Marino ALEKSANDAR LIANG Plan of Treatment Date Care Activity Detail Author Start: 01-03-2025 Pneumococcal Vaccine : 65+ Years (3 - PPSV23 or PCV20) Pneumococcal Vaccine: 65+ Years (3 - PPSV23 or PCV20) [facility] Start: 01-03-2025 Pneumococcal Vaccine : 65+ Years (3 of 3 - PPSV23 or PCV20) Pneumococcal Vaccine: 65+ Years (3 of 3 - PPSV23 or PCV20) [facility] Start: 08-20-2024 End: 08-20-2024 Patient encounter procedure 08/20/2024 2:30 PM EDT Office Visit [facility] [address] [address] Cecilio Go MD 703 [facility] [address], [address] [place] [address] [facility] Start: 01-08-2024 End: 01-08-2024 Patient encounter procedure 01/08/2024 10:10 AM EST Office Visit [facility] [address] [place] [address] Cecilio Go MD [facility] [address] [place] [address] [facility] Start: 12-05-2023 End: 12-05-2023 Patient encounter procedure 12/05/2023 1:30 PM EDT Office Visit [facility] [address] [place] [id number] Curtis Meléndez MD [address] [facility], [address] [place] [address], [place] [address] [facility] Start: 10-26-2023 COVID-19 Vaccine ( season) COVID-19 Vaccine ( season) [facility] Start: 10-26-2023 COVID-19 Vaccine ( season) COVID-19 Vaccine () [facility] Start: 10-26-2023 Influenza vaccination Influenza Vacc ine (#1) [facility] Start: 06-17-2023 End: 06-17-2023 Patient encounter procedure 06/17/2023 10:20 AM EDT Office Visit [facility] [address] [facility] [address] [place] [address] Cecilio Go MD [address] [facility] [address], [address] [place], [place] [id number] [facility] Start: 04-14-2023 CT Chest WO contrast Fi [facility] Start: 04-14-2023 CT of chest without contrast CT chest wo con high res [facility] Start: 02-28-2023 End: 02-29-2024 XR Lumbar spine 2 or 3 Views [facility] Service Area Work Phone: Comment on above: Expected: 02/28/2023 , Expires: 02/29/2024 Start: 12-10-2022 FUV, Provider: Cecilio Go, Status: Pen, Time: 11:10 AM FUV, Provider: Cecilio Go, Status: Pen, Time: 11:10 AM [facility] 250 DO Work Phone: Start: 12-09-2022 FUV, Provider: Cecilio Go, Status: Pen, Time: 3:00 PM FUV, Provider: Cecilio Go, Status: Pen, Time: 3:00 PM [facility] [place] Phone: Start: 12-09-2022 Patient encounter procedure [facility] [place] Start: 11-19-2022 Patient encounter procedure [facility] Start: 11-19-2022 POV, Provider: Curtis Meléndez, Status: Pen, Time: 1:30 PM POV, Provider: Curtis Meléndez, Status: Pen, Time: 1:30 PM [facility] [place]: Start: 11-05-2022 End: 11-05-2023 [facility] Start: 11-04-2022 End: 11-05-2023 [facility] Comment on above: If oral and IV lucita cotics ordered, use oral first and only use IV if oral is ineffective or cannot take oral. Do NOT give oral and IV within one hour of each other unless specificaly ordered. If NO result from Se nokot. Do NOT use with Senokot. Start: 11-04-2022 [facility], Provider: Curtis Meléndez, Status: Pen, Time: 7:30 AM [facility], Provider: Curtis Meléndez, Status: Pen, Time: 7:30 AM [facility] Work Phone: Start: 10-25-2022 COVID-19 Vaccine () COVID-19 Vaccine () [facility] Start: 10-22-2022 [facility], Provider: Curtis Meléndez, Status: Pen, Time: 1:30 PM [facility], Provider: Curtis Meléndez, Status: Pen, Time: 1:30 PM [facility] [place] Phone: Start: 09-24-2022 FUV, Provider: Curtis Meléndez, Status: Pen, Time: 1:30 PM FUV, Provider: Curtis Meléndez, Status: Pen, Time: 1:30 PM -[facility] Work Phone: Start: 08-23-2022 NPV, Provider: Curtis Meléndez, Status: Pen, Time: 1:15 PM NPV, Provider: Curtis Meléndez, Status: Pen, Time: 1:15 PM -[facility] 250 DO Work Phone: Start: 08-15-2022 US scan of aorta US aorta [facility] Start: 08-15-2022 US Thoracic and abdominal aorta [facility] Start: 08-08-2022 ambulatory Ambulatory Facility:H 1 Start: 07-31-2022 AOILIVC, Provider: FRANKIE LOYAI ULTRASOUND 01,[id number], Status: Pen, Time: 1:30 PM AOIL[facility]C, Provider: FRANKIE HHVI ULTRASOUND 01,[id number], Status: Pen, Time: 1:30 PM [facility] Work Phone: Start: 06-04-2022 FUV, Provider: Cecilio Go, Status: Pen, Time: 11:30 AM FUV, Provider: Cecilio Go, Status: Pen, Time: 11:30 AM [facility] 250 DO Work Phone: Start: 02-06-2022 FUV, Provider: Cecilio Go, Status: Pen, Time: 8:50 AM FUV, Provider: Cecilio Go, Status: Pen, Time: 8:50 AM [facility] 250 DO Work Phone: Start: 12-11-2021 FUV, Provider: Cecilio Go, Status: Pen, Time: 11:20 AM FUV, Provider: Cecilio Go, Status: Pen, Time: 11:20 AM [facility] 250 DO Work Phone: Start: 04-30-2021 FUV, Provider: Cecilio Go, Status: Pen, Time: 1:20 PM FUV, Provider: Cecilio Go, Status: Pen, Time: 1:20 PM -[facility] 250 DO Work Phone: Start: 02-15-2021 COVID-19 Vaccine (4 - Moderna series) COVID-19 Vaccine (4 - Moderna series) [facility] Start: 2015 RSV High Risk: (Elderly (60+) or Population) (1 - Risk 60-74 years 1-dose series) RSV High Risk: (Elderly (60+) or Population) (1 - Risk 60-74 years 1-dose series) [facility] Start: 2015 RSV patient s and/or patients aged 60+ years (1 - 1-dose 60+ series) RSV patients and/or patients aged 60+ years (1 - 1-dose 60+ series) [facility] Start: 10-18-2005 Zoster Vaccines (1 o f 2) Zoster Vaccines (1 of 2) [facility] Start: 10-18-1977 DTaP/Tdap/Td Vaccine s (1 - Tdap) DTaP/Tdap/Td Vaccines (1 - Tdap) [facility] Start: 10-18-1973 Diabetes mellitus screening Diabetes Screening [facility] Start: 10-18-1973 Hepatitis C screening Hepatitis C Co lori [facility] Start: 1955 Lipid panel Lipid Panel [facility] Start: 1955 Medicare Annual Wellness Visit Medicare Annual Wellness Visit (AWV) [facility] Start: 1955 Screening for malignant neoplasm of colon [facility] CT Chest WO contrast [facility] Immunizations Immunization Date Immunization Notes Care Provider Fa zenaida 11-06-2022 influenza, high dose seasonal, preservative-free Radames Witt Other Phone: [facility] 11-06-2022 influenza virus vaccine, unspecified formulation Curtis Meléndez MD Work Phone: [facility] Work Phone: 12-26-2021 Fluad Quadrivalent 0 .5 ML Intramuscular Prefilled Syringe Jean Harrisr Work Phone: [facility] 250 DO Work Phone: 12-26-2021 influenza, seasonal, injectable Curtis Meléndez MD Work Phone: [facility] Work Phone: 12-21-2020 Pfizer-[employer] COVID-19 Vacc 30 MCG/0.3ML Intramuscular Suspension Jean Harrisr Work Phone: [facility] 12-21-2020 pneumococcal conjuga te vaccine, 13 valent Jean Nicholson Work Phone: [facility] 12-21-2020 zoster vaccine recombinant Jean Saeed Kimberlyr Work Phone: [facility] 250 DO Work Phone: 12-21-2020 zoster vaccine, unspecified formulation Curtis Meléndez MD Work Phone: [facility] Work Phone: 12-10-2020 Fluad Quadrivalent 0 .5 ML Intramuscular Prefilled Syringe Jean Harrisr Work Phone: [facility] 250 DO Work Phone: 12-10-2020 influenza, seasonal, injectable Curtis Meléndez MD Work Phone: [facility] Work Phone: 06-21-2020 COVID-19 Vaccine Moderna - Documentation Purposes Only Danna Mcdaniel Other [employer] Other 05-09-2020 COVID-19 Vaccine Moderna - Documentation Purposes Only Danna Violeta Other [employer] Other 01-04-2020 influenza, injectabl e, quadrivalent, preservative free Jean A Naderer Work Phone: [facility] [employer] DO Work Phone: 01-04-2020 influenza, seasonal, injectable Curtis Meléndez MD Work Phone: [facility] Work Phone: 01-04-2020 pneumococcal polysaccharide vaccine, 23 valent Jean A Naderer Work Phone: [facility] 12-20-2019 influenza, seasonal, injectable Jean A Naderer Work Phone: [facility] 10-25-2018 influenza, injectabl e, quadrivalent, preservative free Curtis Meléndez MD Work Phone: [facility] Work Phone: 10-25-2018 influenza, seasonal, injectable Jean A Naderer Work Phone: [facility] [employer] DO Work Phone: 11-24-2017 influenza virus vaccine, unspecified formulation Jean A Naderer Work Phone: [facility] [employer] DO Work Phone: 02-25-2016 pneumococcal polysaccharide vaccine, 23 valent Jean A Naderer Work Phone: [facility] Payers Date Payer Category Payer Dual Eligibility Medicare/Medicaid Organization [facility] [id number] 2023 Private Health Insurance [employer] D[employer]PLETE [employer] [id number] 2023-Present [address] [address] [place] [address] [id number] 2023 Private Health Insurance [id number] 2023 Medicare 2022 Self-pay [id number] 2022 Unknown 2020 Unknown [id number] 2.16.840.1.175417.19 2020 Medicaid [id number] [id number] [id number] 2020 Medicaid [id number] 2020 Unknown [id number] 2.16.840.1.225550.19 1959 Unknown [id number] 1955 Unknown [id number] 2.16.840.1.249586.3.579.2 .593 1955 Unknown [id number] 2.16.840.1.848045.3.579.2 .593 1955 Unknown [id number] 2.16.840.1.542990.3.579.2 .593 1955 Unknown [id number] 2.16.840.1.604621.3.579.2 .593 1955 Unknown [id number] 2.16.840.1.851019.3.579.2 .593 1955 Unknown [id number] 2.16840.1.065693.3.579.2 .593 1955 Unknown [id number] 2.16840.1.390440.3.579.2 .593 1955 Unknown [id number] 2.840.1.713184.3.579.2 .593 1955 Unknown [id number] 2.840.1.645318.3.579.2 .593 1955 Unknown [id number] 2.840.1.873593.3.579.2 .593 1955 Unknown [id number] 2.840.1.190318.3.579.2 .593 1955 Unknown [id number] 2.840.1.485064.3.579.2 .593 1955 Unknown [id number] 2.840.1.466461.3.579.2 .356 1955 Unknown [id number] 2.840.1.129199.3.579.2 .356 1955 Unknown [id number] 2.840.1.776953.3.579.2 .8 1955 Unknown [id number] .840.1.053822.3.579.2 .1067 1955 Unknown [id number] 2.840.1.555017.3.579.2 .106 1955 Unknown [id number] 2.840.1.403924.3.579.2 .1067 1955 Unknown [id number] 2.840.1.544444.3.579.2 .1067 1955 Unknown [id number] 2.840.1.725061.3.579.2 .1067 1955 Unknown [id number] 2.16.840.1.158723.3.579.2 .1068 1955 Unknown [id number] 2.16.840.1.131026.3.579.2 .1246 1955 Unknown [id number] 2.16.840.1.576759.3.579.2 .1246 1955 Unknown [id number] 2.16.840.1.399247.3.579.2 .124 1955 Unknown [id number] 2.16.840.1.236396.3.579.2 .124 1955 Unknown [id number] 2.16840.1.645517.3.579.2 .124 1955 Unknown [id number] 2.16.840.1.522524.3.579.2 .1246 1955 Unknown [id number] 2.16840.1.178573.3.579.2 .727 1955 Unknown [id number] 2.16.840.1.889183.3.579.2 .727 1955 Unknown [id number] 2.16840.1.569818.3.579.2 .727 1955 Unknown [id number] 2.16840.1.401229.3.579.2 .727 1955 Unknown [id number] 2.16840.1.360462.3.579.2 .727 1955 Unknown [id number] 2.16840.1.870584.3.579.2 .727 1955 Unknown [id number] 2.16840.1.956560.3.579.2 .1244 1955 Unknown [id number] 2.16.840.1.937471.3.579.2 .196 1955 Unknown [id number] 2.16840.1.614873.3.579.2 .196 1955 Unknown [id number] 2.160.1.411280.3.579.2 .196 Medicare [id number] 2.16.840.1.405872.19 Medicare Spring [facility] [id number] Medicare [id number] Unknown [id number] 2.16840.1.994429.3.579.2 .531 Unknown [id number] 2.16840.1.491036.3.579.2 .531 Unknown [id number] 2.160.1.378090.3.579.2 .531 Social History Date Type Detail Facility Start: 12-09-2022 End: 01-08-2024 Former smoker Former smoker [facility] 250 DO Work Phone: Start: 12-09-2022 End: 01-08-2024 Sex Assigned At [facility] Start: 07-14-2021 End: 12-09-2022 Tobacco smoking status NHIS Never smoked tobacco (finding) [facility] Start: 1955 Sex Assigned At Male [facility] Tobacco smoking consumption unknown [facility] Start: 12-18-2020 End: 03-29-2024 Tobacco smoking status Ex-smoker (finding) [facility] Start: 12-09-2022 Tobacco use and exposure Smokeless tobacco non-user [facility] Work Phone: Start: 12-09-2022 End: 01-08-2024 Alcohol intake Lifetime non-drinker (finding) [facility] Work Phone: Start: 1955 Sex Assigned At Not on file [facility] Work Phone: Start: 02-18-2023 End: 01-08-2024 Exposure to SARS-CoV-2 (event) Not sure [facility] Functional Status Date Assessment Result Facility 03-29-2024 Functional Status N/A [facility] 12-23-2022 Functional Status N/A [facility] Functional observable [facility] Mental Status Date Assessment Result Facility 11-06-2022 Cognitive functions 72418:[id number] [facility] Clinical Notes 11-30-2020 to 03-29-2024 Cecilio Go MD - 01/08/2024 10:10 AM ESTPatient InstructionsAttachmentsRobert Krista Meléndez MD - 11/11/2023 9:15 AM EDTRobert Krista Meléndez MD - 06/03/2023 1:45 PM EDT Note Date & Type Note Facility 03-29-2024 Hospital Discharge instructions Patient Education 03/29/2024 12:28:25 Erectile Dysfunction Erectile Dysfunction Erectile dysfunction (ED) is the inability to get or keep an erection in order to have sexual intercourse. ED is considered a symptom of an underlying disorder and is not considered a disease. ED may include: Inability to get an erection. Lack of enough hardness of the erection to allow penetration. Loss of erection before sex is finished. What are the causes? This condition may be caused by: Physical causes, such as: ?Artery problems. This may include heart disease, high blood pressure, atherosclerosis, and diabetes. ?Hormonal problems, such as low testosterone. ?Obesity. ?Nerve problems. This may include back or pelvic injuries, multiple sclerosis, Parkinson's disease, spinal cord injury, and stroke. Certain medicines, such as: ?Pain relievers. ?Antidepressants. ?Blood pressure medicines and water pills (diuretics). ?Cancer medicines. ?Antihistamines. ?Muscle relaxants. Lifestyle factors, such as: ?Use of drugs such as marijuana, cocaine, or opioids. ?Excessive use of alcohol. ?Smoking. ?Lack of physical activity or exercise. Psychological causes, such as: ?Anxiety or stress. ?Sadness or depression. ?Exhaustion. ?Fear about sexual performance. ?Guilt. What are the signs or symptoms? Symptoms of this condition include: Inability to get an erection. Lack of enough hardness of the erection to allow penetration. Loss of the erection before sex is finished. Sometimes having normal erections, but with frequent unsatisfactory episodes. Low sexual satisfaction in either partner due to erection problems. A curved penis occurring with erection. The curve may cause pain, or the penis may be too curved to allow for intercourse. Never having nighttime or morning erections. How is this diagnosed? This condition is often diagnosed by: Performing a physical exam to find other diseases or specific problems with the penis. Asking you detailed questions about the problem. Doing tests, such as: ?Blood tests to check for diabetes mellitus or high cholesterol, or to measure hormone levels. ?Other tests to check for underlying health conditions. ?An ultrasound exam to check for scarring. ?A test to check blood flow to the penis. Doing a sleep study at home to measure nighttime erections. How is this treated? This condition may be treated by: Medicines, such as: ?Medicine taken by mouth to help you achieve an erection (oral medicine). ?Hormone replacement therapy to replace low testosterone levels. ?Medicine that is injected into the penis. Your health care provider may instruct you how to give yourself these injections at home. ?Medicine that is delivered with a short applicator tube. The tube is inserted into the opening at the tip of the penis, which is the opening of the urethra. A tiny pellet of medicine is put in the urethra. The pellet dissolves and enhances erectile function. This is also called MUSE (medicated urethral system for erections) therapy. Vacuum pump. This is a pump with a ring on it. The pump and ring are placed on the penis and used to create pressure that helps the penis become erect. Penile implant surgery. In this procedure, you may receive: ?An inflatable implant. This consists of cylinders, a pump, and a reservoir. The cylinders can be inflated with a fluid that helps to create an erection, and they can be deflated after intercourse. ?A semi-rigid implant. This consists of two silicone rubber rods. The rods provide some rigidity. They are also flexible, so the penis can both curve downward in its normal position and become straight for sexual intercourse. Blood vessel surgery to improve blood flow to the penis. During this procedure, a blood vessel from a different part of the body is placed into the penis to allow blood to flow around (bypass) damaged or blocked blood vessels. Lifestyle changes, such as exercising more, losing weight, and quitting smoking. Follow these instructions at home: Medicines Take stwn-lqo-etjafpf and prescription medicines only as told by your health care provider. Do not increase the dosage without first discussing it with your health care provider. If you are using self-injections, do injections as directed by your health care provider. Make sure you avoid any veins that are on the surface of the penis. After giving an injection, apply pressure to the injection site for 5 minutes. Talk to your health care provider about how to prevent headaches while taking ED medicines. These medicines may cause a sudden headache due to the increase in blood flow in your body. General instructions Exercise regularly, as directed by your health care provider. Work with your health care provider to lose weight, if needed. Do not use any products that contain nicotine or tobacco. These products include cigarettes, chewing tobacco, and vaping devices, such as e-cigarettes. If you need help quitting, ask your health care provider. Before using a vacuum pump, read the instructions that come with the pump and discuss any questions with your health care provider. Keep all follow-up visits. This is important. Contact a health care provider if: You feel nauseous. You are vomiting. You get sudden headaches while taking ED medicines. You have any concerns about your sexual health. Get help right away if: You are taking oral or injectable medicines and you have an erection that lasts longer than 4 hours. If your health care provider is unavailable, go to the nearest emergency room for evaluation. An erection that lasts much longer than 4 hours can result in permanent damage to your penis. You have severe pain in your groin or abdomen. You develop redness or severe swelling of your penis. You have redness spreading at your groin or lower abdomen. You are unable to urinate. You experience chest pain or a rapid heartbeat (palpitations) after taking oral medicines. These symptoms may represent a serious problem that is an emergency. Do not wait to see if the symptoms will go away. Get medical help right away. Call your local emergency services (911 in the [place] Do not drive yourself to the hospital. Summary Erectile dysfunction (ED) is the inability to get or keep an erection during sexual intercourse. This condition is diagnosed based on a physical exam, your symptoms, and tests to determine the cause. Treatment varies depending on the cause and may include medicines, hormone therapy, surgery, or a vacuum pump. You may need follow-up visits to make sure that you are using your medicines or devices correctly. Get help right away if you are taking or injecting medicines and you have an erection that lasts longer than 4 hours. This information is not intended to replace advice given to you by your health care provider. Make sure you discuss any questions you have with your health care provider. Document Revised: 05/09/2021 Document Reviewed: 05/09/2021 [employer] Patient Education 2023 Danger. Follow Up Care 03/09/2024 09:44:23 With:NATALI LEON, ALAN Abraham, URL Address: [address] [place] [address] When:Within 1 Year(s) [facility] 03-29-2024 Note Patient Education Urology Erectile Dysfunction Erectile dysfunction (ED) is the inability to get or keep an erection in order to have sexual intercourse. ED is considered a symptom of an underlying disorder and is not considered a disease. ED may include: ??? Inability to get an erection. ??? Lack of enough hardness of the erection to allow penetration. ??? Loss of erection before sex is finished. What are the causes? This condition may be caused by: ??? Physical causes, such as: ? Artery problems. This may include heart disease, high blood pressure, atherosclerosis, and diabetes. ? Hormonal problems, such as low testosterone. ? Obesity. ? Nerve problems. This may include back or pelvic injuries, multiple sclerosis, Parkinson's disease, spinal cord injury, and stroke. ??? Certain medicines, such as: ? Pain relievers. ? Antidepressants. ? Blood pressure medicines and water pills (diuretics). ? Cancer medicines. ? Antihistamines. ? Muscle relaxants. ??? Lifestyle factors, such as: ? Use of drugs such as marijuana, cocaine, or opioids. ? Excessive use of alcohol. ? Smoking. ? Lack of physical activity or exercise. ??? Psychological causes, such as: ? Anxiety or stress. ? Sadness or depression. ? Exhaustion. ? Fear about sexual performance. ? Guilt. What are the signs or symptoms? Symptoms of this condition include: ??? Inability to get an erection. ??? Lack of enough hardness of the erection to allow penetration. ??? Loss of the erection before sex is finished. ??? Sometimes having normal erections, but with frequent unsatisfactory episodes. ??? Low sexual satisfaction in either partner due to erection problems. ??? A curved penis occurring with erection. The curve may cause pain, or the penis may be too curved to allow for intercourse. ??? Never having nighttime or morning erections. How is this diagnosed? This condition is often diagnosed by: ??? Performing a physical exam to find other diseases or specific problems with the penis. ??? Asking you detailed questions about the problem. ??? Doing tests, such as: ? Blood tests to check for diabetes mellitus or high cholesterol, or to measure hormone levels. ? Other tests to check for underlying health conditions. ? An ultrasound exam to check for scarring. ? A test to check blood flow to the penis. ??? Doing a sleep study at home to measure nighttime erections. How is this treated? This condition may be treated by: ??? Medicines, such as: ? Medicine taken by mouth to help you achieve an erection (oral medicine). ? Hormone replacement therapy to replace low testosterone levels. ? Medicine that is injected into the penis. Your health care provider may instruct you how to give yourself these injections at home. ? Medicine that is delivered with a short applicator tube. The tube is inserted into the opening at the tip of the penis, which is the opening of the urethra. A tiny pellet of medicine is put in the urethra. The pellet dissolves and enhances erectile function. This is also called MUSE (medicated urethral system for erections) therapy. ??? Vacuum pump. This is a pump with a ring on it. The pump and ring are placed on the penis and used to create pressure that helps the penis become erect. ??? Penile implant surgery. In this procedure, you may receive: ? An inflatable implant. This consists of cylinders, a pump, and a reservoir. The cylinders can be inflated with a fluid that helps to create an erection, and they can be deflated after intercourse. ? A semi-rigid implant. This consists of two silicone rubber rods. The rods provide some rigidity. They are also flexible, so the penis can both curve downward in its normal position and become straight for sexual intercourse. ??? Blood vessel surgery to improve blood flow to the penis. During this procedure, a blood vessel from a different part of the body is placed into the penis to allow blood to flow around (bypass) damaged or blocked blood vessels. ??? Lifestyle changes, such as exercising more, losing weight, and quitting smoking. Follow these instructions at home: Medicines ??? Take mxqd-osb-dmwdkqt and prescription medicines only as told by your health care provider. Do not increase the dosage without first discussing it with your health care provider. ??? If you are using self-injections, do injections as directed by your health care provider. Make sure you avoid any veins that are on the surface of the penis. After giving an injection, apply pressure to the injection site for 5 minutes. ??? Talk to your health care provider about how to prevent headaches while taking ED medicines. These medicines may cause a sudden headache due to the increase in blood flow in your body. General instructions ??? Exercise regularly, as directed by your health care provider. Work with your health care provider to lose weight, if needed. ??? Do not u (more content not included)... [facility] 01-08-2024 History of Present illness Narrative Subjective [...] aortic aneurysm (AAA) without rupture, unspecified part ([facility]) 7. Lung crackles 8. Class 1 obesity due to excess calories without serious comorbidity with body mass index (BMI) of 30.0 to 30.9 in adult Scribe Attestation By signing my name below, I, Annemarie Mckay LPN , Scribe attest that this documentation has been prepared [...] discussion and plan. documented in this encounter [facility] Work Phone: 01-08-2024 Instructions Annemarie Flores [...] be sent through Care Everywhere.Heart Healthy Diet (Togolese)documented in this encounter [facility] Work Phone: 11-11-2023 History of Present illness Narrative Erik Morales is a 68 y.o. male who presents for Follow-up of the Lower Back (L3-4 Lateral lumbar Fusion above prior L4-5 Fusion/L2-3, L3-4 Midline Lami from 11/04/22, xrays 1 year out). HPI: 68-year-old gentleman here for surgical follow-up. He is 1 year out from an L3-4 lateral lumbar fusion above a prior L4-5 fusion/L2-3, L3-4 laminectomy. He denies any fever chills nausea vomiting night sweats. He has no bowel or bladder complaints. Physical exam: Well-nourished, well kept.No lymphangitis or lymphadenopathy in the examined extremities. Gait normal. Can stand on heels and toes. Examination of the [...] normal. Alert and oriented 3. Coordination normal. Posterior and left lateral incisions are very well-healed. Imaging studies: AP lateral plain films of the lumbar spine were ordered and reviewed today. Assessment: 68-year-old gentleman here for surgical follow-up. He is 1 year out from an L3-4 lateral lumbar fusion stand-alone above the prior construct. He is doing well today. He feels 80% at least. He is engaging in activities as tolerated. He has no significant complaints today. X-rays look good. For complete plan and/or surgical details, please refer to Dr. Meléndez's portion of this split dictation. -Nicolas Kohli PA-C In a zuvk-ql-tuxh encounter, I performed a history and physical examination, discussed pertinent diagnostic studies if indicated, and discussed diagnosis and management strategies with both the patient and the midlevel provider. I reviewed the midlevel's note and agree with the documented findings and plan of care. Patient doing very well at 1 year out from an L3-4 lateral lumbar fusion. He is at least 80% better. He is happy at how he is doing. He has no complaints. We will let him engage in activities as tolerated. He occasionally gets little back pain. X-rays were taken and reviewed today and his construct looks stable. Curtis Meléndez MD Orthopedic surgery documented in this encounter [facility] Work Phone: 06-03-2023 History of Present [...] split dictation. -Nicolas Kohli PA-C In a zinc-du-llcf encounter, I performed a history and physical [...] surgery documented in this encounter [facility] Work Phone: 02-28-2023 History of Present [...] portion of this split dictation. In a fovd-gb-ntfr encounter, I performed a history and physical [...] spine. documented in this encounter [facility] Work Phone: 12-23-2022 Hospital Discharge instructions [...] treatment? Where to find more information [employer]: www.cancer.org [employer]: www.auanet.org Contact a health care [...] provider. Document Revised: 08/06/2021 Document Reviewed: 08/06/2021 [employer] Patient Education 2022 Danger. Follow Up Care 12/21/2021 12:26:12 With:RAINER JIMENEZ, aMrino Calabrese, URL Address: [facility] [address], [place] [address]- [phone] When: Unknown Comments:1 yr w/ [facility] Note Send Summary: Discharge Summary Providers: Provider RoleProvider Name Radames Conner Robert ConsultingKher, Chirag PrimaryHoy, Douglas M Note Recipients: Curtis Meléndez MD - [id number] [Preferred] Radames Witt MD - [id number] [] Cayden Flores MD Discharge: Summary: Admission Date: .04-Nov-2022 05:14:00 Discharge Date: 07-Nov-2022 Attending Physician at Discharge: Curtis Meléndez Admission Reason: Lumbar stenosis and spondylolisthesis(1) Final Discharge Diagnoses: Back pain Procedures: Date: 04-Nov-2022 13:07:00 Procedure Name: 1. 2. 3. 4. 5. Condition at Discharge: Satisfactory Disposition at Discharge: .Home Vital Signs: T PRBPMAPSpO2 [id number]% Date/Time11/07 8: 8: 8:5611/07 8: 21:0811/07 8:56 Range(36.7C - 37.1C [...] please call ahead and schedule appointment Location: [address] [facility] Phone Number: [phone] Discharge Medications: Home Medication furosemide 20 mg [...] tab(s) orally once a day Potassium Chloride (Qsz-Gedy-Dyv 10) 10 mEq oral tablet, extended release [...] discharge: Full Code Electronic Signatures: Gilda Mcmahon (NON GARMENT SEWING MACHINE OPERATOR-FOOD SERVICE AIDE) (Signed 07-Nov-2022 09:26) Authored: Send Summary, Summary Content, Immunizations, Ongoing Care, DNR Status, Note Completion Last Updated: 07-Nov-2022 09:26 by Gilda Mcmahon (NON GARMENT SEWING MACHINE OPERATOR-FOOD SERVICE AIDE) References: 1. Data Referenced From Consult-General Internal Medicine 04-Nov-2022 16:29 [facility] 11-04-2022 Note Post Operative Note: Post-Procedure Diagnosis: Lumbar stenosis and spondylolisthesis Procedure: 1. 2. 3. 4. 5. Surgeon: Ángela Resident/Fellow/Other Manager Audit: Alice Estimated Blood Loss (mL): 100 cc Specimen: no Findings: Lumbar stenosis and spondylolisthesis Operative Report Dictated: Dictation: not applicable - note contains Operative Report Note Recipients: Curtis Meléndez MD - [id number] [Preferred] Radames Witt MD - [id number] [] Operative Report: Preoperative diagnosis: L2-3 and [...] Curtis Meléndez M.D. Asst.: Sonu HillThe physician roofer assistant was present through the entire case. Given the nature of the disease process and the procedure to be performed a skilled surgical dental assistant was necessary during the case. The roofer assistant was necessary in order to hold retractors and directly assist in the operation. A certified adapted physical educator was at the back table managing instruments [...] the large dilat (more content not included)... [facility] 11-04-2022 Reason for referral (narrative) Reason for Referral: Surgery 11.04.2022 L3-4 lateral interbody fusion, L2-3 and L3-4 laminectomy and posterior lateral fusion, L3-4 lateral instrumentation, thermal ablation of median nerve to L2-3 and L3-4 [facility] 10-30-2022 Evaluation note Encounter Date Diagnosis Assessment Notes Oct, Diastolic dysfunction (ICD-10 - I51.89) Continue all recommendati on/medicatio ns per your Foil Stamp Operator . Oct, ILD (interstitial lung disease) (ICD-10 - J84.9) Pulmonary Function Test as scheudled prior to next office appointment. [facility] Other 07-27-2023 History of Present illness NarrativeGarry [...] has no bowel or bladder complaints[facility] Work Phone: [phone]) 192-759706-27-2023 Evaluation note* Encounter Date Diagnosis Assessment Notes Treatment Notes Treatment Clinical Notes Jul, Diastolic dysfunction (ICD-10 - I51.89) Jul, ILD (interstitial lung disease) (ICD-10 - J84.9) I reviewed results and images of your Chest CT completed at [facility] 10/2021 and 01/2022. There is evidence of very mild fibrosis (scarring). Continue with physcial activity as you are. [facility] Other 06-22-2023 Evaluation note* Encounter Date Diagnosis [...] agrees with plan, and denies any questions. [facility] Other 03-16-2023 NoteCONSULTATION CONSULTATION DATE: 05/09/2022 HISTORY: [...] is currently under the care of a sorting livestock worker. Most recent physician appointment does show that his lungs are slowly improving. He does have a Cardiology appointment on 06/13/2022, and at that time, he will discuss with the metrology specialist regarding possible use of sedation and holding [...] otherwise indicated. Patient agrees with this care.[id number] NoteCONSULTATION CONSULTATION DATE: 02/07/2022 HISTORY OF PRESENT [...] still being followed up with Pulmonology in [facility] and, most recently, they feel he [...] up in three months, unless otherwise indicated.[id number] Evaluation note* Encounter Date Diagnosis Assessment Notes Treatment Notes Treatment Clinical Notes Jan, Diastolic dysfunction (ICD-10 - I51.89) Jan, ILD (interstitial lung disease) (ICD-10 - J84.9) I will look at Chest CT from [place] and let you know if any further testing is needed. Jan, Dyspnea (ICD-10 - R06.00) [facility] Other 10-04-2022 NoteCONSULTATION CONSULTATION DATE: 11/27/2021 CHIEF [...] is under the care of Dr. Go, metrology specialist, who has suggested that the patient not hold the Eliquis for any treatment right now and, as such, we will maintain a conservative approach. IMPRESSION: As such, the patient's current working diagnosis is chronic low back pain, new diagnosis of cystic fibrosis. A recent CT of the lung was performed and the patient is under the care of [facility]. The patient is also under anticoagulation therapy. PLAN: We will refill the patient's Percocet 5/325 b.i.d. The patient will be returning in clinic as needed. The patient has had a rhizotomy, radiofrequency along the low back and, as such, is stable with regards to his low back.[facility] [id number] NoteCONSULTATION CONSULTATION DATE: 08/30/2021 This is a [...] past he had been diagnosed with an HI in addition to an aneurysm and cystic fibrosis. The patient was worked up in the emergency department and it was found that he had multiple PEs in his lungs and in his right lower leg. The patient was transferred to [facility] where the large PE was surgically removed. [...] be followed up in three months' time. [facility] Signed and Approved by: LAUREN BAUMANN . 09/06/2021 09:46:00[facility]06-28-2022 Evaluation note* Encounter Date Diagnosis Assessment [...] physcial activity....walk 3-4x a day to start. [facility] Other 06-22-2022 Evaluation note* Encounter Date Diagnosis [...] the plan all his questions were addressed. [facility] Other 10-07-2021 Evaluation note* Encounter Date Diagnosis [...] Nov, Other Try Mylanta for acid reflux. [facility] Other Evaluation + Plan note Future Appointments Appointment Date:12/26/2023 11:00:00 AM Scheduled Provider:Marino SPEAR MD Location:[facility] Appointment Type:URO Office Visit Diagnostic Tests Pending * PSA Total 12/23/22 [facility] evaluation + Plan note Future Appointments Appointment Date:03/29/2024 11:40:00 AM Scheduled Provider:ALAN HURST PA-C [facility] Type:[facility]O Office Visit Diagnostic Tests Pending * PSA Total 03/22/24 [facility] Evaluation + Plan note Future Appointments Appointment Date:03/29/2024 11:40:00 AM Scheduled Provider:ALAN HURST PA-C Location:[facility] Appointment Type:URO Office Visit [facility] evaluation + Plan note Future Appointments Appointment Date:03/24/2025 10:30:00 AM Scheduled Provider: Location:[facility] Appointment Type:URO Nurse Visit Appointment Date:03/31/2025 09:40:00 AM Scheduled Provider:ALAN HURST PA-C [facility] App[facility] Type:URO Office Visit Future Scheduled Tests Laboratory* PSA Total 03/29/25 [facility] evalgfevdm noteNo [employer] Other Evaluvlrwi noteNo assessment information available [facility] Work Phone: evalucqqmu note* Constitutional: Well developed, awake/alert/oriented x3, no [...] senses, motor, response and reflexes, normal strength [facility] Diagnosis Low back pain, unspecified back pain laterality, unspecified chronicity, unspecified whether sciatica present- Primary documented in this encounter [facility] Work Phone: Evaluation note* Diagnosis Onset Date Resolution Status Grade I diastolic dysfunction acute Pulmonary fibrosis [facility] Work Phone: Evaluation note* Diagnosis Low back pain, unspecified back pain laterality, unspecified chronicity, unspecified whether sciatica present- Primary Lumbar pain Lumbago documented in this encounter [facility] Work Phone: Evaluation note* Diagnosis Lumbar pain Lumbago documented in this encounter [facility] Work Phone: Evaluation note* Diagnosis Onset Date Resolution Status AAA (abdominal aortic aneurysm) [facility] Work Phone: Evaluation note* Diagnosis Onset Date Resolution Status AAA (abdominal aortic aneurysm) acute Bronchiectasis acute Grade I diastolic dysfunction acute Pulmonary fibrosis [facility] Work Phone: Evaluation note* Diagnosis Essential hypertension Unspecified essential hypertension Mitral valve insufficiency, unspecified etiology Pulmonary fibrosis (Multi) Postinflammatory pulmonary fibrosis Pulmonary embolism, unspecified chronicity, unspecified pulmonary embolism type, unspecified whether acute cor pulmonale present (Multi) Mixed hyperlipidemia Abdominal aortic aneurysm (AAA) without rupture, unspecified part ([facility]) Lung crackles Class 1 obesity due to excess calories without serious comorbidity with body mass index (BMI) of 30.0 to 30.9 in adult documented in this encounter [facility] Work Phone: Evaluation note* Diagnosis Lumbar pain Lumbago documented in this encounter [facility] Work Phone: Evaluation note* Diagnosis Lumbar pain- Primary Lumbago Lumbar pain Lumbago documented in this encounter [facility] Work Phone: [employer] general Narrative - Reported* Type Description Date Medical History COPD Medical History asthma Medical History sleep apnea (negative PSG) Medical History aaa Medical History pe Surgical History spine 2001 Surgical History neck 2004 Surgical History prostate biopsy 2017 Surgical History dental extraction Hospitalization History as above Hospitalization History pe 2021 [facility] Other [facility] general Narrative - Reported* Type Description Date Medical History NOEL Medical History COPD Medical History asthma Medical History sleep apnea Surgical History spine 2001 Surgical History neck 2004 Surgical History prostate biopsy 2017 Hospitalization History as above [facility] Other Hiskiaq general Narrative - Reported* Type Description Date Medical History COPD Medical History asthma Medical History sleep apnea (negative PSG) Surgical History spine 2001 Surgical History neck 2004 Surgical History prostate biopsy 2017 Hospitalization History as above [facility] Other Hisduqz general Narrative - Reported* Type Description Date Medical History COPD Medical History asthma Medical History sleep apnea (negative PSG) Medical History aaa Medical History pulmonary embolism Surgical History spine 2001 Surgical History neck 2004 Surgical History prostate biopsy 2017 Surgical History dental extraction Hospitalization History as above Hospitalization History pulmonary embolism [facility] [facility] 06/2021 [employer] Other [facility] general Narrative - Reported* Type Description Date Medical History COPD Medical History asthma Medical History sleep apnea (negative PSG) Medical History aaa Medical History pulmonary embolism Medical History interstitial lung disease Medical History diastolic dysfunction Surgical History spine 2001 Surgical History neck 2004 Surgical History prostate biopsy 2017 Surgical History dental extraction Hospitalization History as above Hospitalization History pulmonary embolism [facility] 06/2021 [employer] Other History of Present illness NarrativeErik is [...] to the pain management center down in [place].[facility] Work Phone: Hospital course Narrative No data available for this section [facility] Hospital Discharge instructions* Activity:activity as tolerated. [...] weeks, please call ahead and schedule appointmentLocation: [address] [facility]: [phone] [facility] No data available for this section [facility] progress note No data available for this section [...] follow-up for recent admission to [facility] with bilateral pulmonary embolism leading to RV [...] pulmonary embolism. Recently follow-up CT scan at [facility] revealed resolution of the pulmonary emboli. Some other pathology was noted with densities requiring follow-up imaging in 3 to 6 months which has been arranged through his PCP. He is cu rrently anticoagulated with Eliquis. The patient is contemplating further dental work in December which he should be able to hold anticoagulation prior to. Recent nuclear stress test at [facility] was reviewed and shared with the patient and was normal. He is also known to have normal ejection fraction. He currently has no complaint to report physical examination was only remarkable for 8 pounds weight gain from last visit. He is now in the obesity range recent medical record from [facility] were reviewed with the patient and [...] thoracic and lumbar xrays and MRI in [place]. brought a disc.new patient. low back pain with RT sided pain to nee x 2 months. h/o sx in 1998. thoracic and lumbar xrays and MRI in [place]. brought a disc.F/U Lumbar after therapy, says [...] 2-3 views Curtis Meléndez MD [address] [facility], [address] [place] [id number] Referral ID Status Reason Start Date Expiration Date Visits Requested Visits Authorized [id number] Authorized Perform Procedure 06/03/2023 06/02/2024 1 1 Specialty Diagnoses / Procedures Referred By Contac t Referred To Contact Radiology Diagnoses Low back pain, unspecified back pain laterality, unspecified chronicity, unspecified whether sciatica present Procedures XR lumbar spine 2-3 views Curtis Meléndez MD [address] [facility], [address] [place] [id number] Referral ID Status Reason Start Date Expiration Date Visits Requested Visits Authorized [id number] Authorized Perform Procedure 02/28/2023 02/28/2024 1 1 [...] 2-3 views Curtis Meléndez MD [address] [facility], [address] [place] [address] Referral ID Status Reason Start Date Expiration Date Visits Requested Visits Authorized [id number] Authorized Perform Procedure 06/03/2023 06/02/2024 1 1 Reason Comments Follow-up 6m Specialty Diagnoses / Procedures Referred By Contac t Referred To Contact Cardiology Diagnoses Essential hypertension Mitral valve insufficiency, unspecified etiology Procedures Follow Up In Cardiology Cecilio Go MD [address] [place] [address] 2, [address] [address] Phone: tel: fax: Referral ID Status Reason Start Date Expiration Date Visits Re quested Visits Authorized [id number] Closed 12/09/2022 06/07/2023 1 1 Referral ID Status Reason Start Date Expiration Date Visits Requested Visits Authorized [id number] Authorized Perform Procedure 11/11/2023 11/10/2024 1 1 Reason Comments Follow-up L3-4 Lateral lumbar Fusion above prior L4-5 Fusion/L2-3, L3-4 Midline Lami from 11/04/22, xrays 1 year out Specialty Diagnoses / Procedures Referred By Contac t Referred To Contact Cardiology Diagnoses Essential hypertension Mitral valve insufficiency, unspecified etiology Procedures Follow Up In Cardiology Cecilio Go MD [address] [facility] 2, [address] [address] (unrecognized sect ion and content) No Status Records FoundNo Status Records FoundNo Status Records FoundNo Status Records FoundNo Status Records FoundNo Status Records FoundNo Status Records FoundNo Status Records FoundNo Status Records FoundNo Status Records Found INFORMATION SOURCE (unrecogn ized section and content) DATE CREATED AUTHOR 07/07/2022 [facility] DATE CREATED AUTHOR AUTHOR'S ORGANIZ ATION 10/25/2022 [facility] DATE CREATED AUTHOR AUTHOR'S ORGANIZ ATION 11/29/2022 [employer] DATE CREATED AUTHOR AUTHOR'S ORGANIZ ATION 12/14/2022 [facility] DATE CREATED AUTHOR AUTHOR'S ORGANIZ ATION 08/22/2023 [facility] DATE CREATED AUTHOR AUTHOR'S ORGANIZ ATION 11/17/2023 [facility] DATE CREATED AUTHOR AUTHOR'S ORGANIZ ATION 03/30/2024 [facility] DATE CREATED AUTHOR AUTHOR'S ORGANIZ ATION 04/11/2024 [facility] DATE CREATED AUTHOR AUTHOR'S ORGANIZ ATION 04/23/2024 [facility] Care Teams (unrecognized sec tion and content) Team Status: Active Member Role Status Dates Jean Nicholson MD Primary Care Provider Active Team Status: Inactive Member Role Status Dates Jean Nicholson MD Primary Care Provider Active Bianka Garcia NP-C Attending Provider Active [employer] Start Date End Date Radames Witt MD [address] [facility] [place] [address] PCP - General 06/04/22 Team Status: Inactive Member Role Status Dates Jean Nicholson MD Primary Care Provider Active JESSICA Gomez Attending Provider Active Team Status: Inactive Member Role Status Dates Jean Nicholson MD Primary Care Provider Active S tart: March 04, 2023 End: March 04, 2023 JESSICA Gomez Attending Provider Active Start: March 04, 2023 End: March 04, 2023 Team Status: Inactive Member Role Status Dates Jean Nicholson MD Primary Care Provider Active S tart: April 09, 2023 End: April 09, 2023 JESSICA Gomez Attending Provider Active Start: April 09, 2023 End: April 09, 2023 Team Status: Active Member Role Status Dates Radames Witt MD Primary Care Provider Active Team Status: Inactive Member Role Status Dates Danna Mcdaniel APRN [facility] Attending Provider Active Start: April 14, 2023 End: April 14, 2023 Radames Witt MD Primary Care Provider Active Start: April 14, 2023 End: April 14, 2023 [employer] Start Date End Date Radames Witt MD [address] [place] [address] PCP - General 06/04/22 [employer] [place] [address] [place] [id number] PCP - General 06/04/22 Team Status: Inactive Member Role Status Dates Julian Matthews MD Attending Provider Active Start: August 21, 2023 End: August 21, 2023 Radames Witt MD Primary Care Provider Active Start: August 21, 2023 End: August 21, 2023 Team Status: Inactive Member Role Status Dates Radames Witt MD Primary Care Provider Active Start: August 21, 2023 End: August 21, 2023 Bianka Garcia [employer]-C Attending Provider Active Start: August 21, 2023 End: August 21, 2023 Team Status: Inactive Member Role Status Dates Radames Witt MD Primary Care Provider Active Start: November 17, 2023 End: November 17, 2023 Danna Mcdaniel APRN [facility] Attending Provider Active Start: November 17, 2023 End: November 17, 2023 [employer] Start Date End Date Radames Witt MD [address] [place] [address] PCP - General 06/04/22 [employer] Start Date End Date Radames Witt MD [address] [facility] [place] [address] PCP - General 06/04/22 Goals (unrecognized section [...] BE BASED ON THE PRIMARY CLINICAL RECORDS. [employer] [facility]. provides no warranty or guarantee of the accuracy or completeness of information in this document.
--- NOTE | 2024-05-05 12:28 | P.CN_ITS ---
Consult Note: HPI Data of Consult Patient: known to practice within the last 3 years Requesting Physician: Mercedes Massey NP Primary Care Provider: Radames Ricks MD Consult Narrative Reason for consult: back pain Narrative: 68yom who presents for assessment. worsening low back pain. imaging reviewed, which shows multilevel degenerative changes and stenosis, as well as fusion from l4-s1. has continued in provider directed home exercise program >6 weeks, with minimal benefit. uses percocet 5-325mg BID PRN, nortriptyline 25mg hs, celebrex and baclofen as needed. denies adverse med side effects. low back pain right >left side 6/10 increasing with standing, walking. CANDACE 30% with moderate to severe pain impacting ADLs, ability to sit, ability to stand, sleep, social life, and travel. On 05/05/24 pt underwent bilateral L2-3 L3-4 facet medial branch block #1 and #2 with >80% improvement in pain and functional ability immediately after and 1 day following the procedure, preop pain up to 9/10 post op pain 03/05. cc:: CC: Mercedes Massey NP Review of Systems ROS Status of ROS 10 or more systems reviewed and unremark able except as noted in history and below Musculoskeletal Reports: back pain PFSH PFSH Medical History Fixation hardware in spine ?Z96.7 - Presence of other bone and tendon implants (ICD-10) Fusion of lumbar spine ?M43.26 - Fusion of spine, lumbar region (ICD-10) Pulmonary embolism ?I26.99 - Other pulmonary embolism without acute cor pulmonale (ICD-10) Generalized weakness ?R53.1 - Weakness (ICD-10) Meds Home Medications and Allergies Home Medications ?Medication ?Instructions ?Recorded ?Confirmed ?Type acetaminophen 325 mg tablet 325 mg PO Q6H PRN pain 09/06/22 05/03/24 History (Tylenol) albuterol sulfate 90 mcg/actuation 2 puff inhalation Q4H PRN 09/06/22 05/03/24 History aerosol inhaler shortness of breath or wheezing apixaban 5 mg tablet (Eliquis) 5 mg PO Q12H 09/06/22 05/03/24 History atorvastatin 40 mg tablet 40 mg PO QDAY 09/06/22 05/03/24 History baclofen 10 mg tablet 10 mg PO QDAY 09/06/22 05/03/24 History furosemide 20 mg tablet 20 mg PO QDAY 09/06/22 05/03/24 History lisinopril 20 mg tablet 20 mg PO QDAY 09/06/22 05/03/24 History metoprolol tartrate 25 mg tablet 25 mg PO Q12H 09/06/22 05/03/24 History omeprazole 40 mg capsule,delayed 40 mg PO QDAY 09/06/22 05/03/24 History release oxybutynin chloride 10 mg 10 mg PO QDAY 09/06/22 05/03/24 History tablet,extended release 24 hr potassium chloride 10 mEq 10 meq PO QDAY 09/06/22 05/03/24 History tablet,extended release docusate sodium 100 mg capsule 100 mg PO BID 11/08/22 05/03/24 History oxycodone-acetaminophen 5 mg-325 1 tab PO BID PRN pain #60 tabs 03/03/24 05/03/24 Rx mg tablet (Percocet) nortriptyline 25 mg capsule 25 mg PO DAILY #30 caps 04/07/24 05/03/24 Rx oxycodone-acetaminophen 5 mg-325 1 tab PO BID PRN pain #60 tabs 05/03/24 Rx mg tablet (Percocet) Allergies Allergy/AdvReac Type Severity Reaction Status Date / Time No Known Drug Allergies Allergy Verified 05/03/24 09:13 Exam Constitutional Documenting provider has reviewed patient's vital signs: yes Common normals: no apparent distress, oriented x3, healthy appearing, alert and well nourished General appearance: cooperative [facility] Common normals: normocephalic, hearing grossly normal bilaterally and moist oral mucous membranes Head and scalp: normocephalic Eye Common normals: PERRL Pupil: PERRL Neck & C-Spine Common normals: full ROM General: normal visual inspection Chest Common normals: inspection of chest normal Respiratory Common normals: normal respiratory effort, no retractions and no use of accessory muscles Back & Pelvis Lumbar spine/lower back: ROM limited, pain with ROM and straight leg raise negative bilaterally Other: sensation intact BLE strength 5/5 in BLE facet loading positive pain over L2-4 facets Extremity Common normals: normal to inspection and full ROM Neuro Common normals: oriented x3, CN's II-XII intact bilaterally, moves all extremities, no focal motor deficits, no sensory deficits noted and deep tendon reflexes 2+ bilaterally Sensorium/orientation: alert Motor exam: strength 5/5 throughout and no movement abnormalities noted Psych Common normals: mental status grossly normal, thought process normal, cooperative, affect normal, speech normal and activity/motor behavior normal Speech: normal speech Thought process: normal thought process Results Additional Findings Additional findings: If on a controlled substance or opioids, I have checked an [place]AR[place] report on this patient and there are no aberrancies noted in the prescribing history.??If on a controlled substance or opioid a drug screen was completed and reviewed within the last year, and if there has not been a drug screen completed we ordered one today to monitor higher risk, state monitored pain medication use. As part of providing excellent, safe, comprehensive care, the following was completed at our patient's visit: 1. A medication reconciliation and review to ensure accurate knowledge of current/active medications, including asking our patients to inform us about any iokd-yqu-[id number] medications or herbal remedies/nutritional supplements/alternative remedies. 2. A review to specifically ensure our patients have had annual screening for screening for depression, screening for tobacco use, and screening for unhealthy alcohol use. For concerning screenings had a discussion with the patient, provided patient education, and recommended follow-up with primary care provider when appropriate. If patient noted with a risk of falling, they received education on strength, gait, and balance training to prevent future risk of falling. Portions of this note may have been carried over from the previous visit and updated as appropriate. Please note this office utilizes paper charting in addition to the electronic medical record. A list of current medications, vitals, and PMH is available there as the clinical staff outside of myself do not have access to [employer] charting during the clinic day operations. As part of providing quality comprehensive care the current medications, vitals, and PMH were reviewed in the paper chart. Assessment and Plan Assessment and Plan (1) Lumbar spondylosis: Assessment and Plan: The patient has had over 3 months of moderate to severe low back pain with functional impairment and inadequate response to conservative care including NSAIDS (unless there are contraindication such as concurrent blood thinners), multiple oral or topical pain medications, and home exercise program/physical therapy.? Patient has completed >6 weeks of guided home exercise program and/or formal physical therapy program without relief of their symptoms.? We discussed the risks and benefits of the procedure with the patient, and we are NOT planning on using sedation as outlined in the guidelines from Medicare unless there is a documented reason that sedation would be strongly recommended.?? ?The procedure will be completed with fluroscopic guidance.? (2) Chronic use of opiate for therapeutic purpose: (3) Failed back syndrome: (4) Lumbar stenosis with neurogenic claudication: Assessment and Plan: >50% improvement from prior caudal BRIAN ongoing (5) Encounter for long-term use of opiate analgesic: Assessment and Plan: I feel these medications are improving the patient's quality of life and allow them to tolerate activities of daily living as well as participate in recreational activity.? The patient does not report intolerable side effects. T he patient is NOT opioid naive and non-pharmacologic and non-opioid treatment has failed to significantly relieve the patient's pain and improve functionality. The patient has a diagnosis that is related to a somatic or visceral pain etiology. ? ?? I reviewed with the patient the potential risks and side effects with the use of? opioid medications including but not limited to respiratory depression,? sedation, and even . Within the last 12 months I have verified the patient has access to naloxone should? these effects occur. The patient was advised to let? their family know they had Naloxone in case they would need to administer? the medication. I advised the patient to avoid the use of any other? sedation substances including alcohol, THC, and benzodiazepines while? taking opioid medications due to the risk of compounding side effects and? detrimental outcomes. within the last 12 months I have reviewed the [employer], pain treatment agreement and urine drug screen.? ?? A drug screen was completed within the last year, and no aberrancies were noted regarding their use of controlled substances. The patient understands they are subject to the terms and conditions of the pain contract that they have signed. ? ?? I have checked an [place]AR[place] report on this patient today and there are no aberrancies noted in the prescribing history.? Plan bilateral L2,3 L3,4 facet medial branch RFA for axial facet mediated low back pain continue HEP as tolerated continue current medications f/u 1 month after RFA complete, consider SCS if fails RFA
== END 2024-05-05 12:12 | disposition home or self-care (01) ==
LOC: PM 12:11
PROVIDERS: PCP Family Medicine; Visit Provider Nurse Practitioner
DX: M47.816 Spondylosis without myelopathy or radiculopathy, lumbar region (principal); Z79.891 Long term (current) use of opiate analgesic; M96.1 Postlaminectomy syndrome, not elsewhere classified; M48.062 Spinal stenosis, lumbar region with neurogenic claudication
CPT/HCPCS: G0463

== ENCOUNTER 2024-05-24 06:46 | Day surgery (SDC) | payer MEDICARE, SELFPAY ==
--- OUTSIDE RECORDS SUMMARY | 2024-05-24 06:48 | XMS_ITS | CCD ---
Author Organization [facility] Care Team Providers Care Warehouse Handler Name Role Phone Jean Nicholson Christophe Unavailable Unavailable Unavailable Julian Matthews Unavailable Bianka Garcia Unavailable Danna Mcdaniel Unavailable Radames [...] Unavail able Radames Witt Primary Care Physician [phone] Radames Witt MD Primary Care Provider [phone] MD Jean Nicholson Primary Care Provider [phone] Violeta CHURCH SECRETARYTodd Clay Attending Provider [phone] MD Radames Witt Primary Care Provider [phone] MD Radames Witt Primary Care Provider [phone] EDEL Garcia Attending Provider Bianka Garcia [...] (1 source) Nitroglycerin Drug Allergy 4 Unresponsive [facility] (20 sources) Nitroglycerin; Translations: [nitroglycerin] Drug Allergy 2 Other [facility] (9 sources) Nitroglycerin Drug Allergy Unknown [employer] Other (1 source) Aminolevulinic Acid Drug Allergy [facility] Repository (2 sources) Nitroglycerin Drug Allergy 2 [facility] Repository Medications Current Medications Medication Drug [...] day(s), # 90 tab(s), Refills(s) 3, Pharmacy: [facility]/pharmacy #[id number], 175, cm, 03/29/24 12:01:00 EST, Height/Length [...] CR 10 mEq ER tablet Indications: Other bed bug exterminator (current) drug therapy TAKE 1 TABLET BY MOUTH EVERY DAY 90 tablet 3 04/11/2023 Active sildenafil 50 mg oral tablet (1 source) Phosphodiesterase 5 Inhibitor Start: 03-29-2024 Viagra 50 mg Tab See Instructions, 1-2 tabs po 1 hr before sexual activity. 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 Patient Moderate 30-39 Min 00472 Urnls Dip Stick Auto w/o Microscopy POC 13563 2. H/O prostate cancer (Z85.46: Personal history of malignant neoplasm of prostate) Sp prostatectomy Feb 2016 by PRW. pre-op PSA around 3 (6 on Finasteride). Palms 3+4=7, 5% of one lobe. Neg SV, Neg margins, Neg nodes x 8. PSA 07/22/19 - <0.05 04/26/20 - <0.05 10/05/20 - <0.05 12/20/21 - <0.13 12/21/22 - <0.13 03/22/24 - <0.1 PSA low and stable. Check in 1 yr. Ordered: E&M of Est. Patient Moderate 30-39 Min 39290 PSA Total 3. ED (erectile dysfunction) (N52.9: [...] yr. Pt told me no hx heart issues/[place]. Has nitro on allergy list, so we know he's not on this. However after he left I reviewed his chart and problem list says he DOES have hx [place]. Will contact pharmacy and cancel sildenafil rx for now. Staff to clarify cardiac hx w pt. If sees regional retail sales manager, we will need to get clearance from them that his heart is healthy enough for sex/ED med. If no regional retail sales manager, will need clearance from PCP. Orders: oxybutynin, 10 mg = 1 tab(s), Oral, Daily, X 90 day(s), # 90 tab(s), Refills(s) 3, Pharmacy: [facility]/pharmacy #[id number], 175, cm, 03/29/24 12:01:00 EST, Height/Length Dosing, 87.6, kg, 03/29/24 12:01:00 EST, Weight Dosing sildenafil, See Instructions, 1-2 tabs po 1 hr before sexual activity. Do not exceed 2 tabs/100mg in 24 hrs., # 20 tab(s), Refills(s) 2, Pharmacy: [facility]/pharmacy #[id number], 175, cm, 03/29/24 12:01:00 EST, Height/Length Dosing, 87.6, kg, 03/29/24 12:01:00 EST, Weight Do... Follow-up With When Contact Information ALAN HURST PA-C, URL In 1 year [address] [place] [address] Additional Instructions: Patient Education Erectile [...] omeprazole, O (more content not included)... Normal [facility] Comment on above: Result Comment: Elec tronically Signed By: ALAN HURST PA-C\.br\Date and Time Signed: 03/29/24 12:28 EST PSA Totalon 03-23-2024 Prostate specific Ag [Mass/Vol] ng/mL Low 0.1-3.5 [facility] Comment on above: Result Comment: The concentration of PSA determined by different manufacturers can vary due to differences in assay methods and reagent specificity. Values obtained from different assay methods cannot be used interchangeably. The methodology used for this result was chemiluminescence using [employer]'s Access Hybritech PSA reagent. Performed By: #### 1 [id number] #### [facility] [address] [place] [address] Provider Letteron 03-03-2024 Provider Letter Provider Letter March 03, 2024 ERIK MORALES [address] [place] [id number] : 1955 Dear Erik Morales, We have been trying to reach you with no success. It is important that you return our call regarding a follow up appointment upon receiving this letter. Also, at the time of your call, please provide us with your current information. Thank you for your prompt attention to this matter. Sincerely, [facility] [address] [place] [address] [facility] XR LUMBAR SPINE 2-3 VIEWSon 11-11-2023 XR LUMBAR SPINE 2-3 VIEWS Interpreted By: Curtis Meléndez, STUDY: XR LUMBAR SPINE 2-3 VIEWS; 11/11/2023 8:52 am INDICATION: Signs/Symptoms:pain. ACCESSION NUMBER(S): [id number] ORDERING CLINICIAN: CURTIS MELÉNDEZ FINDINGS: AP lateral [...] Curtis Meléndez 11/11/2023 9:36 AM Dictation workstation: [id number] [facility] XR Lumbar spine 2 or 3 Views on 11-11-2023 Interpreted By: Curtis Love, STUDY: XR LUMBAR SPINE 2-3 VIEWS; 11/11/2023 8:52 am INDICATION: Signs/Symptoms:pain. ACCESSION NUMBER(S): [id number] ORDERING CLINICIAN: CURTIS MELÉNDEZ FINDINGS: AP lateral [...] Curtis Meléndez 11/11/2023 9:36 AM Dictation workstation: [id number] Curtis Meléndez MD - 11/11/2023 Interpreted By: Curtis Meléndez, STUDY: XR LUMBAR SPINE 2-3 VIEWS; 11/11/2023 8:52 am INDICATION: Signs/Symptoms:pain. ACCESSION NUMBER(S): [id number] ORDERING CLINICIAN: CURTIS MELÉNDEZ FINDINGS: AP lateral [...] Curtis Meléndez 11/11/2023 9:36 AM Dictation workstation: [id number] [facility] Work Phone: Radiology Study observation (narrative) [facility] Work Phone: XR Lumbar spine 2 or 3 Views Ordered By: Curtis Meléndez on 11-11-2023 [facility] Work Phone: US aortaon 08-21-2023 US aorta [facility] [address] [place] [address] Ultrasound Report Signed Patient: Erik Morales MR#: [id number] : 1955 Acct:[id number] Age/Sex: 67 / M ADM Date: 08/21/23 Loc: [facility]: Bianka Garcia BIOMEDICAL ELECTRONICS TECHNICIAN-C Ordering Provider: Bianka Garcia APRN Date of [...] Julian Matthews MD08/21/2023 2:21 PM Dictation [facility] Tech: Elham Rivera Transcribed By: LUIS 08/21/23 1421 Dictated By: Julian Matthews MD 08/21/23 1419 Signed By: 08/21/23 1421 [facility] XR LUMBAR SPINE 2-3 VIEWSon 06-03-2023 XR LUMBAR SPINE 2-3 VIEWS Interpreted By: Curtis Meléndez, STUDY: XR LUMBAR SPINE 2-3 VIEWS; 06/03/2023 1:42 pm INDICATION: Signs/Symptoms:pain. ACCESSION NUMBER(S): [id number] ORDERING CLINICIAN: CURTIS MELÉNDEZ FINDINGS: AP lateral [...] Curtis Meléndez 06/03/2023 1:56 PM Dictation workstation: [id number] [facility] XR Lumbar spine 2 or 3 Views on 06-03-2023 Interpreted By: Curtis Love, STUDY: XR LUMBAR SPINE 2-3 VIEWS; 06/03/2023 1:42 pm INDICATION: Signs/Symptoms:pain. ACCESSION NUMBER(S): [id number] ORDERING CLINICIAN: CURTIS MELÉNDEZ FINDINGS: AP lateral [...] Curtis Meléndez 06/03/2023 1:56 PM Dictation workstation: [id number] [facility] - 06/03/2023 Interpreted By: Curtis Meléndez, STUDY: XR LUMBAR SPINE 2-3 VIEWS; 06/03/2023 1:42 pm INDICATION: Signs/Symptoms:pain. ACCESSION NUMBER(S): [id number] ORDERING CLINICIAN: CURTIS MELÉNDEZ FINDINGS: AP lateral [...] Curtis Meléndez 06/03/2023 1:56 PM Dictation workstation: [id number] [facility] Work Phone: [facility] Work Phone: Radiology Study observation (narrative) [facility] Work Phone: CT chest wo con high reson 0 04-15-2023 CT chest wo con high res [facility] [place] [address] [place] [id number] [address] Scan Report Signed Patient: Erik Morales MR#: [id number] : 1955 Acct:[id number] Age/Sex: 67 / M ADM Date: 04/14/23 Loc: CT Room: Type: [facility] Attending Dr: ISATU Gomez APRN Copies to: [...] Christopher Cline M.D.04/15/2023 9:21 AM Dictation Location: [place] [address] Transcribed By: LUIS 04/15/23920 Dictated By: Christopher Cline DO 04/15/23903 Signed By: 04/15/23920 Normal [facility] XR LUMBAR SPINE 2-3 VIEWSon 02-28-2023 XR LUMBAR SPINE 2-3 VIEWS Interpreted By: Curtis Meléndez, STUDY: XR LUMBAR SPINE 2-3 VIEWS; ; 02/28/2023 1:37 pm INDICATION: Signs/Symptoms:low back pain. ACCESSION NUMBER(S): [id number] ORDERING CLINICIAN: CURTIS MELÉNDEZ FINDINGS: AP lateral [...] Curtis Meléndez 02/28/2023 3:09 PM Dictation workstation: [id number] [facility] Post Op (Orthopaedic Surgery )on 11-19-2022 Post Op (Orthopaedic Surgery) Orders Back pain Xray BN Spine, Lumbosacral; 2 or 3 Views; Status:Complete; Done: [id number] 02:21PM Radiologist to Determine Optimal Study : [...] Xray BN Spine, Lumbosacral; 2 or 3 [id number] 02:21PMCurtis Meléndez Test NameResultFlagReference Xray Lumbar Spine AP + Lateral(Report) FINAL REPORT Interpreted by: CURTIS MELÉNDEZ JON, MD 11/19/22 16:41 Patient Name: ERIK MORALES STUDY: SPINE, LUMBOSACRAL; 2 OR 3 VIEWS; ; 11/19/2022 2:21 pm INDICATION: pain M54.9: Back pain. ACCESSION NUMBER(S): [id number] ORDERING CLINICIAN: CURTIS MELÉNDEZ FINDINGS: AP lateral x-rays of the lumbar spine show an L3-4 lateral lumbar fusion with lateral plate and cage configuration. Cage pl (more content not included)... Normal [facility] 11-19-2022 XR Lumbar spine AP and Lateral [facility] Work Phone: SPINE, LUMBOSACRAL 2 OR 3 EWSon 11-19-2022 SPINE, LUMBOSACRAL 2 OR 3 VIEWS Patient Name: ERIK MORALES STUDY: SPINE, LUMBOSACRAL; 2 OR 3 VIEWS; ; 11/19/2022 2:21 pm INDICATION: pain M54.9: Back pain. ACCESSION NUMBER(S): [id number] ORDERING CLINICIAN: CURTIS MELÉNDEZ FINDINGS: AP lateral [...] by: CURTIS MELÉNDEZ MD Normal [facility] BASIC METABOLIC PANELon 10-25 Anion gap [Moles/Vol] 10 mmol/L Normal 10 - 20 [facility] Comment on above: Performed By: #### B MP #### [address] [id number] Calcium [Mass/Vol] 8.9 mg/dL Normal 8.6 - 10.3 [place] Comment on above: Performed By: #### B MP #### [address] [id number] Chloride [Moles/Vol] 101 mmol/L Normal 98 - 107 [facility] Comment on above: Performed By: #### B MP #### [address] [id number] Creatinine [Mass/Vol] 1.15 mg/dL Normal 0.50 - 1.30 [facility] Comment on above: Performed By: #### B MP #### [address] [id number] GFR/1.73 sq M.predicted among non-blacks MDRD (S/P/Bld) [Vol rate/Area] 70 mL/min/{1.73_m2} Normal >90 [facility] Comment on above: Result Comment: CALC ULATIONS OF ESTIMATED GFR ARE PERFORMED USING THE 2020 CKD-EPI STUDY REFIT EQUATION WITHOUT THE RACE VARIABLE FOR THE IDMS-TRACEABLE CREATININE METHODS. https://jasn.asnjournals.org/content//ASN.3353118 988 Performed By: #### B MP #### [address] [id number] Glucose [Mass/Vol] 106 mg/dL High 74 - 99 [facility] Comment on above: Performed By: #### B MP #### [address] [id number] HCO3 (Bld) [Moles/Vol] 29 mmol/L Normal 21 - 32 [facility] Comment on above: Performed By: #### B MP #### [address] [id number] Potassium [Moles/Vol] 4.5 mmol/L Normal 3.5 - 5.3 [facility] Comment on above: Performed By: #### B MP #### [address] [id number] Sodium [Moles/Vol] 135 mmol/L Low 136 - 145 [place] Comment on above: Performed By: #### B MP #### [address] [id number] Urea nitrogen [Mass/Vol] 13 mg/dL Normal 6 - 23 [facility] Comment on above: Performed By: #### B MP #### [address] [id number] Daily Progress Note-General Internal Medicineon 11-07-2022 Daily [...] intact. Objective Data: Objective Information: T PRBPMAPSpO2 [id number]/0180419% Date/Time11/07 8: 8: 8: 8: 21: 8:56 [...] laboratory results: Basic Metabolic Panel Trending View [id number] 10:23:00 06-Nov-2022 05:48:00 Glucose, Nmgzs965 H 95 NA135 L 138 K4.5 4.1 [...] discussed extensively with patient, RN and Ortho BIOMEDICAL ELECTRONICS TECHNICIAN. Patient verbalized understanding through teach back method. All questions and concerns addressed upon examination. Of note, this documentation is completed using the [employer] system (voice recognition software). There may be spelling and/or grammatical errors that were not corrected prior to final submission. Plan of Care Reviewed With: Plan of Care Reviewed With: patient Electronic Signatures: Heidy Escobar (CHURCH SECRETARY-EQUIPMENT SERVICE ENGINEER) (Signed 07-Nov-2022 14:59) Authored: Service, Subjective Data, Objective Data, Assessment and Plan, Note Completion Last Updated: 07-Nov-2022 14:59 by Heidy Escobar (CHURCH SECRETARY-EQUIPMENT SERVICE ENGINEER) Normal [facility] Daily Progress Note-Orthopae ibrahimason 11-07-2022 Daily Progress Note-Orthopaedics Service: Orthopaedics Subjective Data: ERIK MORALES is a 67 year old Male who is Hospital Day # 4 and POD #3 for 1. ;2. ;3. ;4. ;5. Patient seen and examined this morning. No acute events overnight. Objective Data: Objective Information: T PRBPMAPSpO2 Value36.84608090/3536427% Date/Time11/06 21: 21: 21: 21: 21: 21:08 [...] to home today Electronic Signatures: Gilda Mcmahon (CHURCH SECRETARY-EQUIPMENT SERVICE ENGINEER) (Signed 07-Nov-2022 08:00) Authored: Service, Subjective Data, Objective Data, Assessment and Plan, Note Completion Abner Maldonado) (Signed 07-Nov-2022 11:31) Co-Signer: Service, Subjective Data, Objective Data, Assessment and Plan, Note Completion Last Updated: 07-Nov-2022 11:31 by Abner Maldonado) Normal [facility] Laboratory - Chemistry and C hemistry - challengeon 11-07-2022 Anion gap [Moles/Vol] 10 mmol/L 10 - 20 [facility] Work Phone: Calcium [Mass/Vol] 8.9 mg/dL 8.6 - 10.[address] [address] [facility] Work Phone: Chloride [Moles/Vol] 101 mmol/L 98 - 107 [facility] Work Phone: CO2 [Moles/Vol] 29 mmol/L 21 - 32 [facility] Work Phone: Creatinine [Mass/Vol] 1.15 mg/dL See Below [facility] Work Phone: Comment on above: Reference Range: 0.5 0 - 1.30 Glucose [Mass/Vol] 106 mg/dL above high threshold 74 - 99 [facility] Work Phone: Potassium [Moles/Vol] 4.5 mmol/L 3.5 - 5.3 [facility] Work Phone: Sodium [Moles/Vol] 135 mmol/L below low threshold 136 - 145 [facility] Work Phone: Urea nitrogen [Mass/Vol] 13 mg/dL 6 - 23 [facility] Work Phone: No Panel Informationon 11-07 70 {mL/min/1.73m2} >90 [facility] Work Phone: Comment on above: CALCULATIONS OF MEGAN MATED GFR ARE PERFORMED USING THE 2020 CKD-EPI STUDY REFIT EQUATION WITHOUT THE RACE VARIABLE FOR THE IDMS-TRACEABLE CREATININE METHODS.https://jasn.asnjournals.org/content//ASN .4157688352 Order Reconciliationon 11-07 Order Reconciliation Page 1 Discharge Reconciliation Document Reconciliation Type: Discharge requested on behalf of Gilda Mcmahon (Advanced Practice Nurse-Admit) done by Gilda Mcmahon ([facility] SECRETARY-[facility]) Discharge - Reconciliation: 07-Nov-2022 09:21 by: Gilda Mcmahon (CHURCH SECRETARY-EQUIPMENT SERVICE ENGINEER) Home Medications EnteredHOME MEDICATIONS AT DISCHARGE DateReconciliation [...] oral tablet is not required Potassium Chloride (Yym-Ztea-Yyd 10) 10 mEq oral tablet, extended release 1 tab(s) orally once a day 21-Oct-2022 13:59 Potassium Chloride (Wiq-Huwy-Fua 10) 10 mEq oral tablet, extended release 1 tab(s) orally once a day 21-Oct-2022 13:59 Potassium Chloride (Snc-Rhjc-Jks 10) 10 mEq oral tablet, extended release is continued as Potassium Chloride (Dbs-Ancu-Jsd 10) 10 mEq oral tablet, extended release [...] (more content not included)... Normal [facility] Rehab Note-bit gatherer rohit 11-07-2022 Rehab Note-occupational therapy Rehab: Info: Mode of Treatmentoccupational therapy Time IN07:31 Time OUT08:00 Total Treatment [id number] Patient in ... at end of sessionchair; [...] Mobility/Tone: Bed Mobility Assessment/Interventionssu pine to sit Zwkgez-ut-Zll Mcdowell (Bed Mobility)standby assist; verbal cues; nonverbal cues (demo/gesture) Comment, Bed MobilityEducated pt on log roll technique to maintain spinal precautions. Simulated home s/u and transferred towards right side. Transfer Assessment/Interventionssi t to stand transfer; stand to sit transfer; bed to chair transfer; toilet transfer; shower transfer Comment, TransfersMin verbal cues for hand placement with sit <>stand transfers. Bed-Chair Mcdowell (Transfers)standby assist Bed-Chair Assistive Device (Transfers)walker, front-wheeled Sit-Stand Mcdowell (Transfers)standby assist; Multiple sit <>stand transfers performed from various surfaces and surface heights. Pt benefits from elevated surfaces however is able to complete transfers from standard surface heights. Sit-Stand Assistive Device (Transfers)walker, front-wheeled Stand-Sit Mcdowell (Transfers)standby assist Stand-Sit Assistive Device (Transfers)walker, front-wheeled Shower Mcdowell (Transfers)Pt reports having shower chair at home which he has used prior to admission. Verbal education provided on safe transfer techniques. Pt also educated to have someone present with transfer for fall prevention. Toilet Mcdowell (Transfers)standby assist Toilet Assistive Device (Transfer)grab bars/safety [...] Assessment/Interventionlow er body dressing; toileting; grooming; bathing Mcdowell Level (Bathing)Pt educated on using a bromination equipment operator to complete LB bathing vs purchasing a LH sponge. Verbal and visual education provided on technique from seated position on shower chair. Pt verbalized understanding. Mcdowell Level (Lower Body Dressing)don; pants/bottoms; shoes/slippers Assistive Devices (Lower Body Dressing)bromination equipment operator Comment (Lower Body Dressing)Reviewed education on use of bromination equipment operator. Wilfredo pants while seated EOB with fair (+) balance. Pt donned LB clothing with SBA. Educated pt on how to use bromination equipment operator to wilfredo slip on shoes. Pt reports brother can also assist with donning shoes. Pt educated to not walk in tedhose only, always wear shoes or non-slip socks Mcdowell Level (Grooming)standby assist Position (Grooming)standing Mcdowell Level (Toileting)standby assist Position (Toileting)sitting Skilled BADL Treatment/Interventionadap tive equipment training; BADL process/adaptation training; compensatory training; energy conservation Motor: Bcm-dq-Htehn (Balance)F+ Standing, Static (Balance)F+ Standing, Dynamic (Balance)F+ [...] Score20 Short Term Goals: Functional Transfer: Established [id number]-8533 Functional Transfer: Goal Detailspt will transfer to bed ,chair, toilet with modified indep Functional Transfer: Time Frame for Go (more content not included)... Normal [facility] Rehab Note-physical therapyo n 11-07-2022 Rehab Note-physical therapy Rehab: Info: Disciplinephysical therapist Mode of Treatmentphysical therapy Time IN08:16 Time OUT08:48 Total Treatment [id number] Patient in ... at end of sessionchair; alarm on Patient Effortexcellent Treatment Considerations/CommentsSer vices provided by RAFAEL Holt with direct supervision and guidance from Daniela Scott PT Patient Response to TreatmentPt cooperative and [...] brace in place. PT placed hands over telepathist on walker to cue pt of his [...] Score18 Short Term Goals: Bed Mobility: Date Jeqkfsxzarg21-Bhq-1958 Bed Mobility: Mcdowell Level Goalmodified independent; supine <> sidelying <> sitting Transfer: Established [id number]-[id number] Transfer: Transfer Type Aqijndm-zt-uctyg/chair-to- bed; vhk-oi-ctpyj/bdgcq-ki-rnj Transfer: Mcdowell Level Goalmodified independent Transfer: Assistive Device Goalrolling walker Gait: Established Gait: Mcdowell Level Goalmodified independent Gait: Assistive Device Goalrolling walker Gait: Distance Qqau703' Education: Learnerpatient Barriers to Learningno barrier Methodverbal [...] home Outcome Summary: Predicted Duration of Therapy Oytifxannyeo41 days Progress: Physical Therapyprogress toward functional goals as expected Therapy Frequency (PT Eval)2 times/day Predicted Duration of Therapy Zlcaefimhcvu94 days DC Recommendations: Discharge Recommendation (PT Eval)Pt would benefit from [facility] Electronic Signatures: Daniela Scott (PT) (Signed 07-Nov-2022 15:34) Co-Signer: Info, Mobility/Tone, Outcomes Tools, Short Term Goals, Education, Outcome Summary, DC Recommendations Fior Velez (SPT) (Signed 07-Nov-2022 13:43) Authored: Info, Mobility/Tone, Outcomes Tools, Short Term Goals, Education, Outcome Summary, DC Recommendations Last Updated: 07-Nov-2022 15:34 by Daniela Scott (PT) Normal [facility] BASIC METABOLIC PANELon 09- Anion gap [Moles/Vol] 9 mmol/L Low 10 - 20 [facility] Comment on above: Performed By: #### B MP #### [address] [id number] Calcium [Mass/Vol] 8.6 mg/dL Normal 8.6 - 10.3 [place] Comment on above: Performed By: #### B MP #### [address] [id number] Chloride [Moles/Vol] 105 mmol/L Normal 98 - 107 [facility] Comment on above: Performed By: #### B MP #### [address] [id number] Creatinine [Mass/Vol] 1.37 mg/dL High 0.50 - 1.30 [facility] Comment on above: Performed By: #### B MP #### [address] [id number] GFR/1.73 sq M.predicted among non-blacks MDRD (S/P/Bld) [Vol rate/Area] 57 mL/min/{1.73_m2} Abnormal >90 [facility] Comment on above: Result Comment: CALC ULATIONS OF ESTIMATED GFR ARE PERFORMED USING THE 2020 CKD-EPI STUDY REFIT EQUATION WITHOUT THE RACE VARIABLE FOR THE IDMS-TRACEABLE CREATININE METHODS. https://jasn.asnjournals.org/content//ASN.5331884 988 Performed By: #### B MP #### [address] [id number] Glucose [Mass/Vol] 95 mg/dL Normal 74 - 99 [facility] Comment on above: Performed By: #### B MP #### [address] [id number] HCO3 (Bld) [Moles/Vol] 28 mmol/L Normal 21 - 32 [facility] Comment on above: Performed By: #### B MP #### [address] [id number] Potassium [Moles/Vol] 4.1 mmol/L Normal 3.5 - 5.3 [facility] Comment on above: Performed By: #### B MP #### [address] [id number] Sodium [Moles/Vol] 138 mmol/L Normal 136 - 145 [facility] Comment on above: Performed By: #### B MP #### [address] [id number] Urea nitrogen [Mass/Vol] 14 mg/dL Normal 6 - 23 [facility] Comment on above: Performed By: #### B MP #### [address] [phone] Daily Progress Note-General Internal Medicineon 11-06-2022 Daily [...] intact. Objective Data: Objective Information: T PRBPMAPSpO2 [id number]/708627% Date/Time11/06 8: 8: 8: 8: 8: 8:18 Range(36.2C - 37.4C ) (63 - 79 ) (16 - 18 ) (104 - 132 )/ (58 - 77 ) (76 - 97 ) (94% - 96% ) Highest temp of 37.4 C was recorded at 11/05 19:08 Pain reported at 11/06 7:23: sleeping ---- Intake and Output ----- Mn/Dy/Year TimeIntakeOutputNet Nov 06, 2022 6:00 [id number] Nov 05, 2022 10:00 [id number] Nov 05, 2022 2:00 [id number] The Intake and Output Totals for the last 24 hours are: IntakeOutputNet [id number] Physical Exam Narrative: Physical Exam: Constitutional: awake/alert/oriented [...] discussed extensively with patient, RN and Ortho BIOMEDICAL ELECTRONICS TECHNICIAN. Patient verbalized understanding through teach back method. All questions and concerns addressed upon examination. Of note, this documentation is completed using the [employer] Dictation system (voice recognition software). There may be spelling and/or grammatical errors that were not corrected prior to final submission. Plan of Care Reviewed With: Plan of Care Reviewed With: patient Elec (more content not included)... Normal [facility] Daily Progress Note-Orthopae dicson 11-06-2022 Daily Progress Note-Orthopaedics Service: Orthopaedics Subjective Data: ERIK MORALES is a 67 year old Male who is Hospital Day # 3 and POD #2 for 1. ;2. ;3. ;4. ;5. Overnight Events: Patient had an uneventful night. Objective Data: Objective Information: T PRBPMAPSpO2 [id number]/014420% Date/Time11/06 8: 8: 8: 8: 8: 8:18 Range(36.2C - 37.4C ) (63 - 79 ) (16 - 18 ) (104 - 132 )/ (58 - 77 ) (76 - 97 ) (94% - 96% ) Highest temp of 37.4 C was recorded at 11/05 19:08 Pain reported at 11/06 7:23: sleeping ---- Intake and Output ----- Mn/Dy/Year TimeIntakeOutputNet Nov 06, 2022 6:00 [id number] Nov 05, 2022 10:00 [id number] Nov 05, 2022 2:00 [id number] The Intake and Output Totals for the last 24 hours are: IntakeOutputNet [id number] T PRBPMAPSpO2 Value37.82815302/809465% Date/Time11/06 8: 8: 8: 8: 8: 8:18 [...] bed -home today Electronic Signatures: Derrick Cunningham (CHURCH SECRETARY-EQUIPMENT SERVICE ENGINEER) (Signed 06-Nov-2022 09:07) Authored: Service, Subjective Data, Objective Data, Assessment and Plan, Note Completion Last Updated: 06-Nov-2022 09:07 by Derrick Cunningham (JESSICA-TRAY) Normal [facility] Discharge [id number] 023 Discharge Profile2 Discharge Orders: Anticipated Discharge Date: Anticipated Discharge [id number]-Gbc-8259 Anticipated Discharge Time12:00 Problem List: Admitting Dx: [...] Review of Medication Reconciliation and Orders Completedby CHURCH SECRETARY Reviewing ProviderFAINA Dwyer at 07-Nov-2022 09:17:40 Appointments: Follow-Up Appointment 01: Physician/Dept/ServiceDr. Meléndez Reason for Referralback Call to Schedule in2 weeks, please call ahead and schedule appointment [id number] [facility] Phone [phone] Electronic Signatures: Gilda Mcmahon (FAINA) (Signed 07-Nov-2022 09:17) Authored: Discharge Orders, Home Care Orders, Provider FINAL REVIEW of Orders, Appointments, Gold Form - Silhouette Artist Summary Last Updated: 07-Nov-2022 09:17 by Gilda Mcmahon (CHURCH SECRETARY-EQUIPMENT SERVICE ENGINEER) Normal [facility] Laboratory - Chemistry and C hemistry - challengeon 11-06-2022 Anion gap [Moles/Vol] 9 mmol/L below low threshold 10 - 20 -[facility] [place] Work Phone: Calcium [Mass/Vol] 8.6 mg/dL 8.6 - 10.3 -[facility] [place] Work Phone: Chloride [Moles/Vol] 105 mmol/L 98 - 107 - [facility] [place] Work Phone: CO2 [Moles/Vol] 28 mmol/L 21 - 32 -[facility] [place] Work Phone: Creatinine [Mass/Vol] 1.37 mg/dL above high threshold See Below [facility] [place] Work Phone: Comment on above: Reference Range: 0.5 0 - 1.30 Glucose [Mass/Vol] 95 mg/dL 74 - [address] [facility] [address] [facility] [place] Work Phone: Potassium [Moles/Vol] 4.1 mmol/L 3.5 - 5.3 -[facility] [place] Work Phone: Sodium [Moles/Vol] 138 mmol/L 136 - 145 -[facility] [place] Work Phone: Urea nitrogen [Mass/Vol] 14 mg/dL 6 - 23 -[facility] [place] Work Phone: MAGNESIUMon 11-06-2022 Magnesium [Mass/Vol] 2.06 mg/dL Normal 1.60 - 2.40 [facility] Comment on above: Performed By: #### M G #### [address] [phone] Magnesium, Serumon 3 Magnesium [Mass/Vol] 2.06 mg/dL See Below [facility] Work [facility]: Comment on above: Reference Range: 1.6 0 - 2.40 No Panel Informationon 11-06 57 {mL/min/1.73m2} Abnormal >[address] [facility]: Comment on above: CALCULATIONS OF MEGAN MATED GFR ARE PERFORMED USING THE 2020 CKD-EPI STUDY REFIT EQUATION WITHOUT THE RACE VARIABLE FOR THE IDMS-TRACEABLE CREATININE METHODS.https://jasn.asnjournals.org/content/early//ASN .8622618378 Rehab Note-bit gatherer [facility] 11-06-2022 Rehab Note-occupational therapy Rehab: Info: Mode of Treatmentoccupational therapy Time IN10:20 Time OUT10:58 Total Treatment [id number] Patient in ... at end of sessionchair; [...] sitting on sofas and armless chairs. Sit-Stand Mcdowell (Transfers)contact guard Sit-Stand Assistive Device (Transfers)walker, front-wheeled Stand-Sit Mcdowell (Transfers)contact guard Stand-Sit Assistive Device (Transfers)walker, front-wheeled Toilet Mcdowell (Transfers)contact guard Toilet Assistive Device (Transfer)grab bars/safety [...] alignment. UB bathing and dressing with SBA Mcdowell Level (Lower Body Dressing)don; pants/bottoms; shoes/slippers; minimum assist (75% patient effort) Assistive Devices (Lower Body Dressing)bromination equipment operator Comment (Lower Body Dressing)Pt educated on use of bromination equipment operator and sock aid for LB dressing with fair understanding and return demonstration. Mcdowell Level (Grooming)contact guard Comment (Grooming)Pt performed G/H tasks in stance at sink with fair balance x 2 1/2 min Motor: Iei-cj-Qlwli (Balance)fair balance Standing, Static (Balance)fair balance Standing, [...] Score18 Short Term Goals: Functional Transfer: Established Gpbz91-Bsn-5812 Functional Transfer: Goal Detailspt will transfer to bed ,chair, toilet with modified indep Functional Transfer: Time Frame for Goal2 wks Balance: Established Dsne03-Xcp-9532 Balance: Goal DetailsPt will demo fair + dyn std balance with ADLS Balance: Time Frame for Goal2 wks Upper Body Dressing: Established Upper Body Dressing: Mcdowell Level Goalstand-by assist Upper Body Dressing: Time Frame for Goal2 wks Lower Body Dressing: Established Lower Body Dressing: Mcdowell Level Goalminimum assist (75% patients effort) Lower Body Dressing: Time Frame for Goal2 wks Following Precautions: Established Vfkt18-Saj-3591 Following Precautions: Goal Detailspt will verbalize and [...] (more content not included)... Normal [facility] Rehab Note-physical therapyo n 11-06-2022 Rehab Note-physical therapy Rehab: Info: Disciplinephysical therapist Mode of Treatmentphysical therapy Time IN13:41 Time OUT14:07 Total Treatment Byugpkg04 Patient in ... at end of sessionbed, 3 railings up; alarm on Patient Effortexcellent Treatment Considerations/CommentsSer vices provided by RAFAEL Holt with direct supervision and guidance from Daniela Scott, JASE Patient Response to TreatmentPt cooperative during treatment. [...] Score18 Short Term Goals: Bed Mobility: Date Npppedjxbui59-Qex-5503 Bed Mobility: Mcdowell Level Goalmodified independent; supine <> sidelying <> sitting Transfer: Established Transfer: Transfer Type Ksezzcc-ee-adzfr/chair-to- bed; fhm-ur-ikkbv/uyqix-go-eyo Transfer: Mcdowell Level Goalmodified independent Transfer: Assistive Device Goalrolling walker Gait: Established Gait: Mcdowell Level Goalmodified independent Gait: Assistive Device Goalrolling walker Gait: Distance Obng055' Education: Learnerpatient Barriers to Learningno barrier Methodverbal [...] home Outcome Summary: Predicted Duration of Therapy Huikvdvsjhmv20 days Progress: Physical Therapyprogress toward functional goals as expected Therapy Frequency (PT Eval)2 times/day Predicted Duration of Therapy Avymnisjgbyy07 days DC Recommendations: Discharge Recommendation (PT Eval)Pt would benefit from [facility] Electronic Signatures: Daniela Scott (PT) (Signed 07-Nov-2022 03:43) Co-Signer: Info, Mobility/Tone, Motor, Sensory, Outcomes Tools, Short Term Goals, Education, Outcome Summary, DC Recommendations Fior Velez (SPT) (Signed 06-Nov-2022 14:31) Authored: Info, Mobility/Tone, Motor, Sensory, Outcomes Tools, Short Term Goals, Education, Outcome Summary, DC Recommendations Last Updated: 07-Nov-2022 03:43 by Daniela Scott (PT) Normal [facility] Rehab Note-physical therapy Rehab: Info: Mode of Treatmentphysical therapy Time IN09:36 Time OUT10:17 Total Treatment Hixlezo79 Patient in ... at end of sessionchair; [...] Score18 Short Term Goals: Bed Mobility: Date Nmceocsmqhi63-Iqi-0753 Bed Mobility: Mcdowell Level Goalmodified independent; supine <> sidelying <> sitting Transfer: Established Ubwc40-Arg-6981 Transfer: Transfer Type Fdhnrml-lq-cctwt/chair-to- bed; jcn-sn-smtmd/bqyon-hf-aqn Transfer: Mcdowell Level Goalmodified independent Transfer: Assistive Device Goalrolling walker Gait: Established [id number]-Tvr-4834 Gait: Mcdowell Level Goalmodified independent Gait: Assistive Device Goalrolling walker Gait: Distance Ycfl218' Education: Learnerpatient Methodverbal Topicrehab plan of care; precautions; discharge recommendations including destination and/or equipment; fall prevention Education - Topicproper use of FWW for transfers and gait to reduce the risk of fall, reviewed spinal precautions and body mechanics for getting in and out of bed, concerns for discharging home Outcome Summary: Predicted Duration of Therapy Fjhjmbbauhub08 days Progress: Physical Therapyprogress towards functional goals is fair Therapy Frequency (PT Eval)2 times/day Predicted Duration of Therapy Wetmbayxshpu45 days DC Recommendations: Discharge Recommendation (PT Eval)Pt would benefit from [facility] Electronic Signatures: Daniela Scott (PT) (Signed 07-Nov-2022 03:43) Co-Signer: Info, Mobility/Tone, Outcomes Tools, Short Term Goals, Education, Outcome Summary, DC Recommendations Fior Velez (SPT) (Signed 06-Nov-2022 14:30) Authored: Info, Mobility/Tone, Outcomes Tools, Short Term Goals, Education, Outcome Summary, DC Recommendations Last Updated: 07-Nov-2022 03:43 by Daniela Scott (PT) Normal [facility] BASIC METABOLIC PANELon 10-25 Anion gap [Moles/Vol] 12 mmol/L Normal 10 - 20 [facility] Comment on above: Performed By: #### B MP #### [address] [id number] Calcium [Mass/Vol] 8.8 mg/dL Normal 8.6 - 10.3 [place] Comment on above: Performed By: #### B MP #### [address] [id number] Chloride [Moles/Vol] 101 mmol/L Normal 98 - 107 [facility] Comment on above: Performed By: #### B MP #### [address] [id number] Creatinine [Mass/Vol] 1.75 mg/dL High 0.50 - 1.30 [facility] Comment on above: Performed By: #### B MP #### [address] [id number] GFR/1.73 sq M.predicted among non-blacks MDRD (S/P/Bld) [Vol rate/Area] 42 mL/min/{1.73_m2} Abnormal >90 [facility] Comment on above: Result Comment: CALC ULATIONS OF ESTIMATED GFR ARE PERFORMED USING THE 2020 CKD-EPI STUDY REFIT EQUATION WITHOUT THE RACE VARIABLE FOR THE IDMS-TRACEABLE CREATININE METHODS. https://jasn.asnjournals.org/content//ASN.3325170 988 Performed By: #### B MP #### [address] [id number] Glucose [Mass/Vol] 131 mg/dL High 74 - 99 [place] Comment on above: Performed By: #### B MP #### [address] [id number] HCO3 (Bld) [Moles/Vol] 26 mmol/L Normal 21 - 32 [facility] Comment on above: Performed By: #### B MP #### [address] [id number] Potassium [Moles/Vol] 4.0 mmol/L Normal 3.5 - 5.3 [facility] Comment on above: Performed By: #### B MP #### [address] [id number] Sodium [Moles/Vol] 135 mmol/L Low 136 - 145 [place] Comment on above: Performed By: #### B MP #### [address] [id number] Urea nitrogen [Mass/Vol] 14 mg/dL Normal 6 - 23 [facility] Comment on above: Performed By: #### B MP #### [address] [id number] CBCon 11-05-2022 Erythrocyte distribution width (RBC) [Ratio] 13.4 % Normal 11.5 - 14.5 [facility] Comment on above: Performed By: #### C BC #### [address] [id number] Hematocrit (Bld) [Volume fraction] 43.6 % Normal 41.0 - 52.0 [facility] Comment on above: Performed By: #### C BC #### [address] [id number] Hemoglobin (Bld) [Mass/Vol] 14.3 g/dL Normal 13.5 - 17.5 [facility] Comment on above: Performed By: #### C BC #### [address] [id number] MCHC (RBC) [Mass/Vol] 32.8 g/dL Normal 32.0 - 36.0 [facility] Comment on above: Performed By: #### C BC #### [address] [id number] MCV (RBC) [Entitic vol] 96 fL Normal 80 - 100 [facility] Comment on above: Performed By: #### C BC #### [address] [id number] Platelets (Bld) [#/Vol] 244 10*3/uL Normal 150 - 450 [facility] Comment on above: Performed By: #### C BC #### [address] [id number] RBC 4.54 x10E12/L Normal 4.50 - 5.90 [facility] Comment on above: Performed By: #### C BC #### [address] [id number] WBC (Bld) [#/Vol] 16.4 10*3/uL High 4.4 - 11.3 [facility] Comment on above: Performed By: #### C BC #### [address] [id number] Daily Progress Note-General Internal Medicineon 11-05-2022 Daily [...] intact. Objective Data: Objective Information: T PRBPMAPSpO2 [id number]/376754% Date/Time11/05 7: 0: 0: 7: 7: 7:33 [...] ----- Mn/Dy/Year TimeIntakeOutputNet Nov 05, 2022 6:00 [id number] Nov 04, 2022 10:00 [id number] Nov 04, 2022 2:00 [id number] The Intake and Output Totals for the last 24 hours are: IntakeOutputNet [id number] Physical Exam Narrative: Physical Exam: Constitutional: awake/alert/oriented [...] interview, assessm (more content not included)... Normal [facility] Daily Progress Note-Orthopae ibrahimason 11-05-2022 Daily Progress Note-Orthopaedics Service: Orthopaedics Subjective Data: ERIK MORALES is a 67 year old Male who is Hospital Day # 2 and POD #1 for 1. ;2. ;3. ;4. ;5. Overnight Events: Patient had an uneventful night. Objective Data: Objective Information: T PRBPMAPSpO2 Value36.72513292/104236% Date/Time11/05 7: 0: 0: 7: 7: 7:33 [...] ----- Mn/Dy/Year TimeIntakeOutputNet Nov 05, 2022 6:00 [id number] Nov 04, 2022 10:00 [id number] Nov 04, 2022 2:00 [id number] The Intake and Output Totals for the last 24 hours are: IntakeOutputNet [id number] T PRBPMAPSpO2 Value36.23381878/010870% Date/Time11/05 7: 0: 0: 7: 7: 7:33 [...] out of bed Electronic Signatures: Derrick Cunningham (CHURCH SECRETARY-EQUIPMENT SERVICE ENGINEER) (Signed 05-Nov-2022 08:16) Authored: Service, Subjective Data, Objective Data, Assessment and Plan, Note Completion Curtis Maldonado) (Signed 05-Nov-2022 09:30) Co-Signer: Service, Subjective Data, Objective Data, Assessment and Plan, Note Completion Last Updated: 05-Nov-2022 09:30 by Curtis Maldonado) Normal [facility] Laboratory - Chemistry and C hemistry - challengeon 11-05-2022 Anion gap [Moles/Vol] 12 mmol/L 10 - 20 [facility] [place] Work Phone: Calcium [Mass/Vol] 8.8 mg/dL 8.6 - 10.3 [facility] Work Phone: Chloride [Moles/Vol] 101 mmol/L 98 - 107 [facility] [place] Work Phone: CO2 [Moles/Vol] 26 mmol/L 21 - 32 [facility] [place] Work Phone: [phone] Creatinine [Mass/Vol] 1.75 mg/dL above high threshold See Below [facility] [place] Work Phone: Comment on above: Reference Range: 0.5 0 - 1.30 Glucose [Mass/Vol] 131 mg/dL above high threshold 74 - 99 [facility] [place] Work Phone: Potassium [Moles/Vol] 4.0 mmol/L 3.5 - 5.3 [facility] [employer] Work Phone: Sodium [Moles/Vol] 135 mmol/L below low threshold 136 - 145 [facility] Work Phone: Urea nitrogen [Mass/Vol] 14 mg/dL 6 - 23 [facility] [employer] Work Phone: Laboratory - Hematology and Cell countson 11-05-2022 Erythrocyte distribution width (RBC) [Ratio] 13.4 % See Below [facility] Work Phone: Comment on above: Reference Range: 11. 5 - 14.5 Hematocrit (Bld) [Volume fraction] 43.6 % See Below [facility] Work Phone: Comment on above: Reference Range: 41. 0 - 52.0 Hemoglobin (Bld) [Mass/Vol] 14.3 g/dL See Below [facility] [employer] Work Phone: Comment on above: Reference Range: 13. 5 - 17.5 MCHC (RBC) [Mass/Vol] 32.8 g/dL See Below [facility] [employer] Work Phone: Comment on above: Reference Range: 32. 0 - 36.0 MCV (RBC) [Entitic vol] 96 fL 80 - 100 [facility] Work Phone: Platelets (Bld) [#/Vol] 244 10*3/uL 150 - 450 -[facility] Work Phone: RBC (Bld) [#/Vol] 4.54 {x10E12/L} See Below -[facility] Work Phone: Comment on above: Reference Range: 4.5 0 - 5.90 WBC (Bld) [#/Vol] 16.4 10*3/uL above high threshold 4.4 - 11.3 [facility] Work Phone: No Panel Informationon 11-05 42 {mL/min/1.73m2} Abnormal >90 [facility] Work Phone: Comment on above: CALCULATIONS OF MEGAN MATED GFR ARE PERFORMED USING THE 2020 CKD-EPI STUDY REFIT EQUATION WITHOUT THE RACE VARIABLE FOR THE IDMS-TRACEABLE CREATININE METHODS.https://jasn.asnjournals.org/content/early//ASN .8338778920 OT Evaluation v2-occupationa l therapyon 11-05-2022 OT Evaluation v2-occupational therapy Rehab: Info: Mode of Treatmentoccupational therapy Time IN07:41 Time OUT08:05 Total Treatment Minutes0 Patient Effortgood Symptoms Noted During/After Treatmentnone Patient Profile Reviewedyes Onset of Illness/Injury or Date of Ienpvrj17-Htc-9409 Reason for ReferralL2-3, L3-4 lami, L3-4 lateral [...] Static (Balance)good balance Sitting, Dynamic (Balance)good balance Vhe-kz-Jacxg (Balance)good balance Standing, Static (Balance)fair balance Standing, Dynamic (Balance)fair balance Sensory: Pre-Treatment Pain Rating3/10 Post-Treatment Pain Rating3/10 Comment, Pre/Post Treatment Painlow back pain Sensory General Assessmentno sensation deficits identified Impression: Criteria for Skilled Therapeutic Interventions Met (OT Eval)treatment indicated OT DiagnosisADL impairment Rehab Potential (OT Eval)good, to achieve stated therapy goals Therapy Frequency (OT Eval)2 times/wk Predicted Duration of Therapy Folqmljilmqo54 days Functional Limitations in Following Categoriesself-care Planned [...] Score16 Short Term Goals: Functional Transfer: Established Zton02-Hfw-2355 Functional Transfer: Goal Detailspt will transfer to bed ,chair, toilet with modified indep Functional Transfer: Time Frame for Goal2 wks Balance: Established Mioh07-Wun-4750 Balance: Goal DetailsPt will demo fair + dyn std balance with ADLS Balance: Time Frame for Goal2 wks Upper Body Dressing: Established Sucq72-Kxu-7504 Upper Body Dressing: Mcdowell Level Goalstand-by assist Upper Body Dressing: Time Frame for Goal2 wks Lower Body Dressing: Established Lower Body Dressing: Mcdowell Level Goalminimum assist (75% patients effort) Lower Body Dressing: Time Frame for Goal2 wks Following Precautions: Established Ydqc52-Sgs-2857 Following Precautions: Goal Detailspt will verbalize and [...] by Marianna Hayes (OT) Normal [facility] PT Evaluation v2-physical th erapyon 11-05-2022 PT Evaluation v2-physical therapy Rehab: Info: Mode of Treatmentphysical therapy Time IN07:45 Time OUT08:05 Patient in ... at end of sessionchair; alarm on Patient Effortgood Patient Profile Reviewedyes Onset of Illness/Injury or Date of Ezjtiem08-Fvt-6460 Reason for ReferralSurgery 11.04.2022 L3-4 lateral interbody [...] Static (Balance)good balance Sitting, Dynamic (Balance)fair balance Rzm-if-Zoowm (Balance)fair + Standing, Static (Balance)fair + Standing, [...] (PT Eval)2 times/day Predicted Duration of Therapy Xxcexvxztnzz64 days Outcomes Tools: Turning from your back [...] (more content not included)... Normal [facility] Rehab Note-physical therapyo n 11-05-2022 Rehab Note-physical therapy Rehab: Info: Disciplinephysical graphic design assistant Mode of Treatmentphysical therapy Time IN14:19 Time OUT14:44 Total Treatment Mimyceh09 Patient in ... at end of sessionbed, [...] Score18 Short Term Goals: Bed Mobility: Date Usrglgwyvft76-Doz-8740 Bed Mobility: Mcdowell Level Goalmodified independent; supine <> sidelying <> sitting Transfer: Established Transfer: Transfer Type Rqysnsc-fk-wifvc/chair-to- bed; hie-bp-wksuz/pjqua-xr-fzo Transfer: Mcdowell Level Goalmodified independent Transfer: Assistive Device Goalrolling walker Gait: Established Gait: Mcdowell Level Goalmodified independent Gait: Assistive Device Goalrolling walker Gait: Distance Ootc121' Education: Learnerpatient; family member Methodverbal Outcome Evaluation1=partially meets; needs review Education - Topicpt able to recall spinal precautions , Able to don and doff TLSO brace Outcome Summary: Progress: Physical Therapyprogress toward functional goals as expected Electronic Signatures: Kelsea Cueto (INTEGRATION ENGINEER) (Signed 05-Nov-2022 16:34) Authored: Info, Mobility/Tone, Sensory, Outcomes Tools, Short Term Goals, Education, Outcome Summary Daniela Scott (PT) (Signed 06-Nov-2022 03:32) Co-Signer: Info, Mobility/Tone, Sensory, Outcomes Tools, Short Term Goals, Education, Outcome Summary Last Updated: 06-Nov-2022 03:32 by Daniela Scott (PT) Normal [facility] Admission Risk Screen - Adul ton 11-04-2022 Admission Risk Screen - Adult Allergies: Intolerances: nitroglycerin: Unknown Patient Verification: New W ID Band Applied in my Departmentno Type of ID Patient is WearingW wristband, but not applied here Patient [facility] Patient Identity Verified Bypatient ID Band [...] AlertFor Ebola-like Symptoms: Isolate Patient and Notify Provider/Refining Still Operator For Contact: Notify Provider/Refining Still Operator Advance Directive: Advance Directive/DNRyes Advance Directive typeLiving Will, Durable Power of Clinical Rehab Liaison for Healthcare Living Will AvailabilityLiving Will not available now Living Will Nhdtgepnh24-Zto-8507 Durable Power of Clinical Rehab Liaison AvailabilityDPOA not available now Durable Power of Clinical Rehab Liaison Qhycyjvtk85-Agz-6699 Durable Power of Clinical Rehab Liaison contact (name and number)Dana [phone] [place] Fall Screen: History of falling (immediate [...] instruction; skill demonstration Cultural Considerationsnone Developmental Considerationsnone Cheondoism Considerationsnone Learning Assessment (Other Learner): Other learner availableno Depression Screen: During the past month, have you often been bothered by feeling down, depressed or hopelessno During the past month, have you often had little interest or pleasure in doing thingsno Have you had any thoughts of harming anyone elseno [place] Suicide: Risk Screen Not Applicable/Able to Answerable to be screened In the Past Month: Have you wished you were or could go to sleep and not wake upno In the Past Month: Have you had any actual thoughts of killing yourselfno Lifetime: Have you ever done, started to do, or prepared to do anything to end your lifeno [place] Suicide Risknegative Adult Nutrition Screen: Have you [...] (more content not included)... Normal [facility] Consult-General Internal Med sotero 11-04-2022 Consult-General [...] nitroglycerin: Unknown Objective: Objective Information: T PRBPMAPSpO2 [id number]% Date/Time11/04 15: 15: 15: 15: 15: 15:32 [...] (more content not included)... 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 Drives. Pt plans to dc home. CT team will continue to monitor care progression and potential dc needs. Darya Jay RN TCC 11/06/22 0900 TCC UPDATE: [facility] score is PT (18) OT (16), PT recommends home no further PT needs. Per rounding report with David Cunningham, TRAY and team, pt is s/p Lami fusion and dura tear, pt has lumbosacral brace, will DC marian no needs, ADOD today vs tomorrow. CT team will continue monitoring case for progression and potential DC needs. Sultana Jones RN TCC. Assessment: Discharge Planning Assessment [id number] Primary Contact Name and NumberDale (brother) [phone] Lives Withsibling(s) Living Arrangementshouse PCPHoy [facility] Anticipated at Transitionnone InsuranceDevoted Anticipated Changes [...] 06-Nov-2022 15:26 by Sultana Jones (CLIN COOR) [facility] Order Reconciliationon 11-04 Order Reconciliation Page 1 Admission Reconciliation Document Reconciliation Type: Admission requested on behalf of Heidy Escobar (Advanced Practice Nurse) done by Heidy Escobar (CHURCH SECRETARY-[facility]) Admission - Partial Reconciliation: 04-Nov-2022 15:50 by: Heidy Escobar (CHURCH SECRETARY-EQUIPMENT SERVICE ENGINEER) Admission - Reconciliation: 04-Nov-2022 15:50 by: Heidy Escobar (CHURCH SECRETARY-EQUIPMENT SERVICE ENGINEER) Home MedicationsEnteredLast Dose TakenReconciled with current Order Reconciliation Comment/ Additional Information atorvastatin 40 mg oral tablet 1 tab(s) orally once a day (at bedtime) Atorvastatin Tablet (LIPITOR)DOSE = 40 mg Oral At Bedtimeatorvastatin 40 mg oral tablet continued as the inpatient order Atorvastatin baclofen 10 mg oral tablet 1 tab(s) orally once a dyx39-May-176478-Eag-1646 PM Reviewed and Held Eliquis 5 mg oral tablet 1 tab(s) orally 2 times a day---AWARE TO HOLD PRIOR TO PROCEDURE Reviewed and Held furosemide 20 mg oral tablet 1 tab(s) orally once a osx09-Pew-998632-Xxt-9545 AM Furosemide Tablet (LASIX)DOSE = 20 mg Oral Dailyfurosemide 20 mg oral tablet is continued and suspended as Furosemide lisinopril 20 mg oral tablet 1 tab(s) orally once a bwf41-Cad-205045-Ccq-2917 PM Lisinopril Tablet (PRINIVIL, ZESTRIL)DOSE = 20 mg Oral Dailylisinopril 20 mg oral tablet is continued and suspended as Lisinopril metoprolol tartrate 25 mg oral tablet 1 tab(s) orally 2 times a day---AWARE TO TAKE MORNING OF PROCEDUE WITH A SIP OF ODWWR76-Axz-539884-Thn-846 3 02:30 AM Reviewed and Held Multiple Vitamins oral tablet 1 tab(s) orally once a vah53-Lur-255804-Nov-2022 AM Multivitamin with Minerals TabletDOSE = 1 tablet(s) Oral Daily Multiple Vitamins oral tablet continued as the inpatient order Multivitamin with Minerals nortriptyline 25 mg oral capsule orally once a rog98-Rif-752462-Exk-7395 PM Nortriptyline Capsule (PAMELOR)DOSE = 25 mg [...] release 1 tab(s) orally once a day 85-Uas-230177199756-Cdh-2586 PM Reviewed and Held oxycodone-acetaminophen 5 mg-325 mg oral tablet 1 tab(s) orally 2 times a day, As Ohnhsx77-Ryp-264675-Twf-91 23 Reviewed and Held Potassium Chloride (Vxb-Ndlt-Ula 10) 10 mEq oral tablet, extended release 1 tab(s) orally once a doy90-Hpp-654743-Dfi-2122 PM Reviewed and Held Additional Current Orders [...] 12 HoursRecommended Infusion Time: 60 minute(s) Normal [facility] Radiologyon 11-04-2022 Fluoroscopy duration Please click on the link to view the study images [facility] Work Phone: Established Visit (Orthopaed ic [...] instructions were (more content not included)... Normal [facility] Demand 10-21-2022 aPTT Coag (Bld) [Time] 34 s Normal 27 - 38 [facility] Comment on above: Result Comment: Note new reference range as of 08/13/2022 at 10:00am. Performed By: #### A PTT #### [address] [id number] Activated Partial Thrombopla stin Timeon 10-21-2022 aPTT Coag (PPP) [Time] 34 s 27 - 38 [facility] Work Phone: Comment on above: Note new reference r jana as of 08/13/2022 at 10:00am. CBC AND DIFFERENTIALon 10-21 % AUTOMATED IMMATURE GRAN 0.3 % Normal 0.0 - 0.9 [facility] Comment on above: Result Comment: Jovanna ture Granulocyte Count (IG) includes promyelocytes, myelocytes and metamyelocytes but does not include bands. Percent differential counts (%) should be interpreted in the context of the absolute cell counts (cells/L). Performed By: #### C BCDF #### [address] [id number] Basophils (Bld) [#/Vol] 0.11 10*3/uL High 0.00 - 0.10 [facility] Comment on above: Performed By: #### C BCDF #### [address] [id number] Basophils/100 WBC (Bld) 1.2 % Normal 0.0 - 2.0 [facility] Comment on above: Performed By: #### C BCDF #### [address] [id number] Eosinophils (Bld) [#/Vol] 0.21 10*3/uL Normal 0.00 - 0.70 [facility] Comment on above: Performed By: #### C BCDF #### [address] [id number] Eosinophils/100 WBC (Bld) 2.2 % Normal 0.0 - 6.0 [facility] Comment on above: Performed By: #### C BCDF #### [address] [id number] Erythrocyte distribution width (RBC) [Ratio] 13.5 % Normal 11.5 - 14.5 [facility] Comment on above: Performed By: #### C BCDF #### [address] [id number] Hematocrit (Bld) [Volume fraction] 44.9 % Normal 41.0 - 52.0 [facility] Comment on above: Performed By: #### C BCDF #### [address] [id number] Hemoglobin (Bld) [Mass/Vol] 14.8 g/dL Normal 13.5 - 17.5 [facility] Comment on above: Performed By: #### C BCDF #### [address] [id number] Lymphocytes (Bld) [#/Vol] 1.28 10*3/uL Normal 1.20 - 4.80 [facility] Comment on above: Performed By: #### C BCDF #### [address] [id number] Lymphocytes/100 WBC (Bld) 13.6 % Normal 13.0 - 44.0 [facility] Comment on above: Performed By: #### C BCDF #### [address] [id number] MCHC (RBC) [Mass/Vol] 33.0 g/dL Normal 32.0 - 36.0 [facility] Comment on above: Performed By: #### C BCDF #### [address] [id number] MCV (RBC) [Entitic vol] 94 fL Normal 80 - 100 [facility] Comment on above: Performed By: #### C BCDF #### [address] [id number] Monocytes (Bld) [#/Vol] 0.72 10*3/uL Normal 0.10 - 1.00 [facility] Comment on above: Performed By: #### C BCDF #### [address] [id number] Monocytes/100 WBC (Bld) 7.7 % Normal 2.0 - 10.0 [facility] Comment on above: Performed By: #### C BCDF #### [address] [id number] Neutrophils (Bld) [#/Vol] 7.04 10*3/uL Normal 1.20 - 7.70 [facility] Comment on above: Performed By: #### C BCDF #### [address] [id number] Neutrophils/100 WBC (Bld) 75.0 % Normal 40.0 - 80.0 [facility] Comment on above: Performed By: #### C BCDF #### [address] [id number] Platelets (Bld) [#/Vol] 251 10*3/uL Normal 150 - 450 [facility] Comment on above: Performed By: #### C BCDF #### [address] [id number] RBC 4.78 x10E12/L Normal 4.50 - 5.90 [facility] Comment on above: Performed By: #### C BCDF #### [address] [id number] WBC (Bld) [#/Vol] 9.4 10*3/uL Normal 4.4 - 11.3 [place] Comment on above: Performed By: #### C BCDF #### [address] [id number] COMPREHENSIVE PANELon 2022 Albumin [Mass/Vol] 4.0 g/dL Normal 3.4 - 5.0 [place] Comment on above: Performed By: #### C BC #### [address] [id number] ALP [Catalytic activity/Vol] 127 U/L Normal 33 - 136 [facility] Comment on above: Performed By: #### C BC #### [address] [id number] ALT [Catalytic activity/Vol] 16 U/L Normal 10 - 52 [facility] Comment on above: Result Comment: Becca ents treated with Sulfasalazine may generate falsely decreased results for ALT. Performed By: #### C BC #### [address] [id number] Anion gap [Moles/Vol] 12 mmol/L Normal 10 - 20 [facility] Comment on above: Performed By: #### C BC #### [address] [id number] AST [Catalytic activity/Vol] 21 U/L Normal 9 - 39 [facility] Comment on above: Performed By: #### C BC #### [address] [id number] Bilirubin [Mass/Vol] 0.6 mg/dL Normal 0.0 - 1.2 [facility] Comment on above: Performed By: #### C BC #### [address] [id number] Calcium [Mass/Vol] 9.3 mg/dL Normal 8.6 - 10.3 [place] Comment on above: Performed By: #### C BC #### [address] [id number] Chloride [Moles/Vol] 103 mmol/L Normal 98 - 107 [facility] Comment on above: Performed By: #### C BC #### [address] [id number] Creatinine [Mass/Vol] 1.29 mg/dL Normal 0.50 - 1.30 [facility] Comment on above: Performed By: #### C BC #### [address] [id number] GFR/1.73 sq M.predicted among non-blacks MDRD (S/P/Bld) [Vol rate/Area] 61 mL/min/{1.73_m2} Normal >90 [facility] Comment on above: Result Comment: CALC ULATIONS OF ESTIMATED GFR ARE PERFORMED USING THE 2020 CKD-EPI STUDY REFIT EQUATION WITHOUT THE RACE VARIABLE FOR THE IDMS-TRACEABLE CREATININE METHODS. https://jasn.asnjournals.org/content/early//ASN.8449984 988 Performed By: #### C BC #### [address] [id number] Glucose [Mass/Vol] 103 mg/dL High 74 - 99 [place] Comment on above: Performed By: #### C BC #### [address] [id number] HCO3 (Bld) [Moles/Vol] 27 mmol/L Normal 21 - 32 [facility] Comment on above: Performed By: #### C BC #### [address] [id number] Potassium [Moles/Vol] 3.8 mmol/L Normal 3.5 - 5.3 [facility] Comment on above: Performed By: #### C BC #### [address] [id number] Protein [Mass/Vol] 7.4 g/dL Normal 6.4 - 8.2 [place] Comment on above: Performed By: #### C BC #### [address] [id number] Sodium [Moles/Vol] 138 mmol/L Normal 136 - 145 [place] Comment on above: Performed By: #### C BC #### [address] [id number] Urea nitrogen [Mass/Vol] 11 mg/dL Normal 6 - 23 [facility] Comment on above: Performed By: #### C BC #### [address] [id number] Complete Blood Count + Tanna alfaro 10-21-2022 Basophils/100 WBC (Bld) 1.2 % 0.0 - 2.0 [facility] [place] Work Phone: [phone] Erythrocyte distribution width (RBC) [Ratio] 13.5 % See Below [facility] [place] Work Phone: [phone] Comment on above: Reference Range: 11. 5 - 14.5 Hematocrit (Bld) [Volume fraction] 44.9 % See Below [facility] Work Phone: [phone] Comment on above: Reference Range: 41. 0 - 52.0 Hemoglobin (Bld) [Mass/Vol] 14.8 g/dL See Below [facility] Work Phone: [phone] Comment on above: Reference Range: 13. 5 - 17.5 Lymphocytes/100 WBC (Bld) 13.6 % See Below [facility] [place] Work Phone: [phone] Comment on above: Reference Range: 13. 0 - 44.0 MCHC (RBC) [Mass/Vol] 33.0 g/dL See Below [facility] Work Phone: [phone] Comment on above: Reference Range: 32. 0 - 36.0 MCV (RBC) [Entitic vol] 94 fL 80 - 100 [facility] Work Phone: [phone] Monocytes/100 WBC (Bld) 7.7 % 2.0 - 10.0 [facility] [place] Work Phone: [phone] Neutrophils/100 WBC (Bld) 75.0 % See Below [facility] Work Phone: [phone] Comment on above: Reference Range: 40. 0 - 80.0 Platelets (Bld) [#/Vol] 251 10*3/uL 150 - 450 [facility] Work Phone: RBC (Bld) [#/Vol] 4.78 {x10E12/L} See Below [facility] Work Phone: Comment on above: Reference Range: 4.5 0 - 5.90 WBC (Bld) [#/Vol] 9.4 10*3/uL 4.4 - 11.3 [facility] Work Phone: Complete Blood Count + Differential 0.11 {x10E9/L} above high threshold See Below [facility] Work Phone: Comment on above: Reference Range: 0.0 0 - 0.10 Complete Blood Count + Differential 0.21 {x10E9/L} See Below [facility] Work Phone: Comment on above: Reference Range: 0.0 0 - 0.70 Complete Blood Count + Differential 0.72 {x10E9/L} See Below [facility] Work Phone: Comment on above: Reference Range: 0.1 0 - 1.00 Complete Blood Count + Differential 1.28 {x10E9/L} See Below [facility] Work Phone: Comment on above: Reference Range: 1.2 0 - 4.80 Complete Blood Count + Differential 7.04 {x10E9/L} See Below [facility] Work Phone: Comment on above: Reference Range: 1.2 0 - 7.70 Complete Blood Count + Differential 2.2 % 0.0 - 6.0 [facility] Work Phone: Complete Blood Count + Differential 0.3 % 0.0 - 0.9 [facility] Work Phone: [phone] Comment on above: Immature Granulocyte Count (IG) includes promyelocytes, myelocytes and metamyelocytes but does not include bands. Percent differential counts (%) should be interpreted in the context of the absolute cell counts (cells/L). Electrocardiogram 12 Leadon 10-21-2022 Electrocardiogram 12 Lead Ventricular Rate 64 Atrial Rate 64 P-R Interval 172 QRS Duration 84 Q-T Interval 398 QTC Calculation(Bazett) 410 P [place] 22 R [place] 17 T [place] 32 QRS Count 11 Q Onset 225 [...] dye [Mass/Vol] 4.0 g/dL 3.4 - 5.0 -[facility] Work Phone: ALP [Catalytic activity/Vol] 127 U/L 33 - 136 -[facility] Work Phone: [phone] ALT With P-5'-P [Catalytic activity/Vol] 16 U/L 10 - 52 -[facility] Work Phone: [phone] Comment on above: Patients treated wit h Sulfasalazine may generate falsely decreased results for ALT. Anion gap [Moles/Vol] 12 mmol/L 10 - 20 -[facility] Work Phone: [phone] AST With P-5'-P [Catalytic activity/Vol] 21 U/L 9 - 39 [facility] Work Phone: [phone] Bilirubin [Mass/Vol] 0.6 mg/dL 0.0 - 1.2 [facility] Work Phone: [phone] Calcium [Mass/Vol] 9.3 mg/dL 8.6 - 10.[address] [facility] Work Phone: [phone] Chloride [Moles/Vol] 103 mmol/L 98 - 107 [facility] Work Phone: CO2 [Moles/Vol] 27 mmol/L 21 - 32 [facility] Work Phone: Creatinine [Mass/Vol] 1.29 mg/dL See Below [facility] Work Phone: [phone] Comment on above: Reference Range: 0.5 0 - 1.30 Glucose [Mass/Vol] 103 mg/dL above high threshold 74 - 99 [facility] Work Phone: [phone] Potassium [Moles/Vol] 3.8 mmol/L 3.5 - 5.3 [facility] Work Phone: Protein [Mass/Vol] 7.4 g/dL 6.4 - 8.2 [facility] Work Phone: Sodium [Moles/Vol] 138 mmol/L 136 - 145 [facility] Work Phone: Urea nitrogen [Mass/Vol] 11 mg/dL 6 - 23 -[facility] Work Phone: Laboratory - Coagulationon 0 10-21-2022 INR Coag (PPP) [Relative time] 1.4 {INR} above high threshold 0.9 - 1.1 [facility] Work Phone: PT Coag (PPP) [Time] 16.2 s above high threshold 9.8 - 12.8 [facility] Work Phone: Comment on above: Note new reference r jana as of 08/13/2022 at 10:00am. MRSA Screenon 10-21-2022 Staphylococcus sp identified Org specific cx Nom (Unsp spec) Abnormal [facility] Work Phone: No Panel Informationon 10-21 [email or web address] ?RetrieveTestByDateTime?Pa zsbcfHV=[id number]&Date=&Time=14%3a28%3a16% 3a00&TestType=ECG&Site=1&O utputType=PDF&Ext=PDF [facility] [place] Work Phone: [phone] Normal sinus rhythm [facility] [place] Work Phone: [phone] Borderline Normal [facility] [place] Work Phone: [phone] [facility] [place] Work Phone: [phone] [facility] [place] Work Phone: [phone] [facility] [place] Work Phone: [phone] [facility] [place] Work Phone: [phone] [facility] [place] Work Phone: [phone] [facility] [place] Work Phone: [phone] [facility] [place] Work Phone: [phone] [facility] [place] Work Phone: [phone] [facility] [place] Work Phone: [phone] [facility] [place] Work Phone: [phone] [facility] [place] Work Phone: [phone] [facility] [place] Work Phone: [phone] [facility] [place] Work Phone: [phone] [facility] [place] Work Phone: [phone] {mL/min/1.73m2} >[address] [place] Work Phone: [phone] Comment on above: CALCULATIONS OF MEGAN MATED GFR ARE PERFORMED USING THE 2020 CKD-EPI STUDY REFIT EQUATION WITHOUT THE RACE VARIABLE FOR THE IDMS-TRACEABLE CREATININE METHODS.https://jasn.asnjournals.org/content/early/ASN .0655229474 PT/INRon 10-21-2022 PT Coag (PPP) [Time] 16.2 s High 9.8 - 12.8 [facility] Comment on above: Result Comment: Note new reference range as of 08/13/2022 at 10:00am. 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 (procedure may be cancelled if no cdl dedicated truck driver), center location, insurance information Prep Instructions Reviewedyes Prep TypeCHG wipes Instructed to Have No Fluids AfterNPO after midnight How to be AddressedGarry Spoken Language PreferredEnglish Source of Informationpatient Stated Reason for AdmissionBack surgery Primary Contact Name and NumberJose Carlos (brother) [phone] Other Contact Names and NumbersDerick Ady (friend) [phone] Limitations on Visitors/Phone Callsnone Medications Brought to Hospitalno General Health: Weight in kg90.4 kilogram(s) Weight in krs922.2 pound(s) Weight Methodactual (measured) Scale Typestanding Height [...] CommentsLives with brother Resource/Environmental Concernsnone Anticipated Transition [place] [facility] Anticipated at Transitionnone Tobacco Use: Tobacco Useno former cigar smoker, quit 15 years ago Pre-op Checklist: Arrival [id number] Arrival Time09:25 Procedure TypeL2-3, L3-4 LAMINECTOMY, L3-4 INSTRUMENTATION, L2-3, L3-4 POSTERIOR LATERAL FUSION, L3-4LATERAL LUMBAR INTERBODY FUSION NPOyes Last Food Hjunre91-Xux-4327 18:30 Last Clear Fluid [id number]-[id number] 19:00 ID Band On Patientpatient ID (name), falls risk Consent Signedyes H&P Completeyes Anesthesia Assessment Completedpending EKG Performedsee results tab Chest X-Ray Performednot ordered Preop Antibioticssent to OR Beta-sushant Last Dose Date/Zufj97-Atu-1365 02:30 Glucose Resultn/a Type and Screen Resultedn/a [...] General Health, Pre-op Checklist, Additional Information Nelli Aj (MARGAUX) (Signed 21-Oct-2022 13:51) Authored: Initial Info, General Health, Health Mgmt, Relationship/Environ, Tobacco Use, Additional Information Last Updated: 04-Nov-2022 05:56 by Moira Marsh (SANTI) Normal [facility] STAPH/MRSA SCREENon 10-22-19 23 STAPH/MRSA SCREEN PATIENT: ERIK MORALES LOCATION: [facility] BILL#: [id number] : 55 AGE: SEX: M ORDERED BY: CURTIS MELÉNDEZ SOURCE: [facility] COLLECTED: 10/21/22 14:18 ANTIBIOTICS AT TEDDY.: RECEIVED : 10/21/22 21:56 SITE: R E S U L T S STAPH/MRSA SCREEN FINAL 10/23/22 12:12 ISOLATE1 : Staphylococcus aureus METHICILLIN SENSITIVE STAPHYLOCOCCUS AUREUS (MSSA) Normal [facility] Comment on above: Performed By: #### S TAPH #### [facility] [address] [place] [address] URINALYSIS WITH CULTURE IF I NDICATEDon 10-21-2022 Appearance (U) CLEAR Normal CLEAR [facility] Comment on above: Performed By: #### U ARFX #### [address] [id number] Bilirubin Ql (U) Negative Normal NEGATIVE [facility] Comment on above: Performed By: #### U ARFX #### [address] [id number] Color (U) YELLOW Normal STRAW,YELLO W [facility] Comment on above: Performed By: #### U ARFX #### [address] [id number] Glucose Ql (U) Negative Normal NEGATIVE [facility] Comment on above: Performed By: #### U ARFX #### [address] [id number] Hemoglobin Ql (U) Negative Normal NEGATIVE [facility] Comment on above: Performed By: #### U ARFX #### [address] [id number] Ketones Ql (U) Negative Normal NEGATIVE [facility] Comment on above: Performed By: #### U ARFX #### [address] [id number] Leukocyte esterase Test strip Ql (U) Negative Normal NEGATIVE [facility] Comment on above: Performed By: #### U ARFX #### [address] [id number] Nitrite Ql (U) Negative Normal NEGATIVE [facility] Comment on above: Performed By: #### U ARFX #### [address] [id number] pH (U) 6.0 [pH] Normal 5.0 - 8.0 [facility] Comment on above: Performed By: #### U ARFX #### [address] [id number] Protein Ql (U) Negative Normal NEGATIVE [facility] Comment on above: Performed By: #### U ARFX #### [address] [id number] Specific gravity (U) [Rel density] 1.010 Normal 1.005 - 1.035 [facility] Comment on above: Performed By: #### U ARFX #### [address] [id number] Urobilinogen (U) [Mass/Vol] mg/dL Normal 0.0 - 1.9 [facility] Comment on above: Performed By: #### U ARFX #### [address] [id number] Color (U) YELLOW See Below [facility] [place] Work Phone: [phone] Comment on above: Reference Range: STR AW,YELLOW Glucose Ql (U) Negative NEGATIVE -[facility] [place] Work Phone: [phone] Ketones Ql (U) Negative NEGATIVE -[facility] [place] Work Phone: [phone] Leukocyte esterase Test strip Ql (U) Negative NEGATIVE [facility] Work Phone: [phone] pH (U) 6.0 [pH] 5.0 - 8.0 [facility] [place] Work Phone: [phone] Protein (U) [Mass/Vol] Negative NEGATIVE [facility] [place] Work Phone: [phone] RBC (U) [#/Vol] Negative NEGATIVE [facility] [place] Work Phone: [phone] Specific gravity (U) [Rel density] 1.010 1 See Below [facility] [place] Work Phone: [phone] Comment on above: Reference Range: 1.0 05 - 1.035 URINALYSIS WITH CULTURE IF INDICATED Negative NEGATIVE [facility] Work Phone: [phone] URINALYSIS WITH CULTURE IF INDICATED <2.0 0.0 - 1.9 [facility] [place] Work Phone: [phone] URINALYSIS WITH CULTURE IF INDICATED CLEAR CLEAR [facility] Work Phone: [phone] Established Visit (Orthopaed ic Surgery)on 09-19-2022 Established Visit (Orthopaedic Surgery) Orders Back pain, Other intervertebral disc degeneration, lumbar region [place] [facility]; Status:Need Information - Financial Authorization; Requested for:[id number]; Osteogenesic Stimulator; Status:Active; Requested for:[id number]; Provider Impressions Assessment: At this time, I [...] Normal [facility] 08-23-2022 Initial Visit (Orthopaedic Surgery) Provider Impressions [...] plates and the interbody cage is a [place] cage. He currently has stenosis at L2-L3 [...] back pain with RT [facility]. h/o sx in 1998. thoracic and lumbar xrays and MRI in [place]. brought a disc. History of Present IllnessGarry [...] to the pain management center down in [place]. Review of Systems Review of systems, past [...] surgery Histo (more content not included)... Normal [facility] Radiologyon 08-23-2022 XR Lumbar spine AP and Lateral Normal [facility] Work Phone: SPINE, LUMBOSACRAL 2 OR 3 EWSon 08-23-2022 SPINE, LUMBOSACRAL 2 OR 3 VIEWS Patient Name: ERIK MORALES STUDY: SPINE, LUMBOSACRAL; 2 OR 3 VIEWS; ; 08/23/2022 1:37 pm INDICATION: pain M51.36: Other intervertebral disc degeneration, lumbar region M54.9: Back pain. ACCESSION NUMBER(S): [id number] ORDERING CLINICIAN: CURTIS MELÉNDEZ FINDINGS: Flexion-extension x-rays [...] vasculature. Electronically signed by: CURTIS MELÉNDEZ MD [facility] VASC LAB Abdominal Aorta/Nancy ac/IVC Ultraon 07-31-2022 VASC LAB Abdominal Aorta/Iliac/IVC Ultra [address], [address], [place] [address] Vascular Lab Report Abdominal Aorta Iliac Ultrasound/IVC Ultrasound Patient Name: ERIK Mckoy Physician: [id number] Cecilio Go MD, [facility] Study Date: 07/31/2022 Referring CECILIO GO Physician: MRN/PID: [id number] PCP: Radames Witt Accession/Order#: [id number] CC Report to: Date of : 1955 Technologist: Karol Hull RDCS Dali Gender: M Technologist 2: Admission Status: Outpatient Location Performed: [facility] Diagnosis/ICD: I71.43-Infrarenal abdominal aortic aneurysm, without rupture Indication: HTN, Hyperlipidemia, Obesity, Former Smoker, Dyspnea, Pulmonary Fibrosis Procedure/CPT: 68805 Duplex Aorta/IVC/Iliac/Bypass [id number] CONCLUSIONS: Aorta/Common Iliac Arteries/IVC: Infrarenal fusiform abdominal [...] Proximal 0.71 cm 0.96 cm 0.96 cm/s [id number] Cecilio Go MD, FACC Final Normal [facility] VAS LAB Abdominal Aorta/Nancy ac/IVC Ultrasoundon 07-31-2022 VAS LAB Abdominal Aorta/Iliac/IVC Ultrasound -[facility] [address] DO Work Phone: [...] by: IRAIS LORENZANA Date: 2022-07-02 13:50 Normal [facility] Office Visit (Cardiology)on 06-04-2022 Follow-up visit [...] Weight Tips; Status:Complete - Retrospective Authorization; Done: 04Jun2022 Some eating tips that can help you lose weight.; Status:Complete - Retrospective Authorization; Done: 04Jun2022 SocHx: Former smoker Tobacco Use Screening; Status:Complete; Done: 04Jun2022 Patient Instructions Please bring all medicines, vitamins, [...] rashes. Neurologic (more content not included)... Normal [facility] Tobacco Screening.on 023 Adult depression screening assessment No [facility] [place] [facility] [address] DO Work Phone: Fall risk assessment a) No falls within the last year [facility] [place] [address] DO Work Phone: Tobacco use status CPHS b) No [facility] [address] DO Work Phone: CREATININEon 02-18-2022 Creatinine [Mass/Vol] 1.23 mg/dL Normal 0.70-1.30 [facility] Comment on above: Performed By: #### E RUR #### [facility] [address] [place] [address] [address] Arielle Biswas EGFR-AF NAURUAN >60 Normal >=60 [facility] Comment on above: Performed By: #### E RUR #### [facility] [address] [place] [address] [address] Arielle Biswas EGFR-NON AF NAURUAN 59 mL/min/1.73m2 Critically low >=60 [facility] Comment on above: Performed By: #### E RUR #### [facility] [address] [place] [address] CHEST W CONon [...] Date: 2022-02-18 15:28 Normal [facility] Office Visit (Cardiology)on 12-11-2021 Follow-up visit [...] Weight Tips; Status:Complete - Retrospective Authorization; Done: [id number] Some eating tips that can help you lose weight.; Status:Complete - Retrospective Authorization; Done: [id number] SocHx: Former smoker Tobacco Use Screening; Status:Complete; Done: [id number] Patient Instructions Please bring all medicines, vitamins, [...] Recently follow-up CT scan at [facility] revealed resolution of the pulmonary emboli. Some other pathology was noted with densities requiring follow-up imaging in 3 to 6 months which has been arranged through his PCP. He is currently anticoagulated with Eliquis. The patient is contemplating further dental work in December which he should be able to hold anticoagulation prior to. Recent nuclear stress test at [facility] was reviewed and shared with the patient and was normal. He is also known to have normal ejection fraction. He currently has no complaint to report physical examination was only remarkable for 8 pounds weight gain from last visit. He is now in the obesity range recent medical record from [facility] were reviewed with the patient and [...] palpitations, but (more content not included)... Normal [facility] Tobacco Screening.on Fall risk assessment a) No falls within the last year [facility] [employer] 250 DO Work Phone: Tobacco use status CP b) No [facility] [employer] DO Work Phone: Tobacco Screening. Yes [facility] [employer] 250 DO Work Phone: CTA CHEST WO [...] by: BRITANY TSANG Date: 2021-11-05 11:08 Normal [facility] NM STRESS/REST MULTIon 10-17 MA STRESS/REST MULTI Patient: ERIK MORALES Exam Date: 10/17/2021 : 1955 Gender:M Ordering : DR RADAMES WITT . Admission #: [id number] Family : Order #: [id number] CLICK HERE TO VIEW EXAM RADIOLOGY REPORT [...] 10/17/2021 at 13:48 Normal [facility] T4, T3U, FTI LABCORPon 10-10 Free Thyroxine Index 2.1 Normal 1.2-4.9 [facility] Comment on above: Performed By: #### E RUR #### [facility] [address] [place] [address] Dr. Arielle Biswas T3 Uptake 28 % Normal 24-39 [facility] Comment on above: Performed By: #### E RUR #### [facility] [address] [place] [address] Dr. Arielle Biswas T4 [Mass/Vol] 7.5 ug/dL Normal 4.5-12.0 [facility] Comment on above: Performed By: #### E RUR #### [facility] [address] [place] [address] Dr. Arielle Biswas BNPon 10-09-2021 Natriuretic peptide B (Bld) [Mass/Vol] 319.0 pg/mL Normal <=900.0 [facility] Comment on above: Performed By: #### B BIOMEDICAL ELECTRONICS TECHNICIAN, TSH, CMP #### [facility] [address] [place] [address] Dr. Arielle Biswas CBC AUTO DIFFon 10-09-2021 BASO # 0.1 103/ul Normal 0.0-0.1 [facility] Comment on above: Performed By: #### C BC #### [facility] [address] [place] [address] Dr. Arielle Biswas Basophils/100 WBC (Bld) 1.3 % Normal 0.2-2.0 [facility] Comment on above: Performed By: #### C BC #### [facility] [address] [place] [address] Dr. Arielle Biswas EO # 0.2 103/ul Normal 0.0-0.7 [facility] Comment on above: Performed By: #### C BC #### [facility] [address] [place] [address] Dr. Arielle Biswas Eosinophils/100 WBC (Bld) 3.0 % Normal 0.9-7.0 [facility] Comment on above: Performed By: #### C BC #### [facility] [address] [place] [address] Dr. Arielle Biswas Erythrocyte distribution width (RBC) [Ratio] 13.5 % Normal 11.0-15.0 [facility] Comment on above: Performed By: #### C BC #### [facility] [address] [place] [address] Dr. Arielle Biswas Hematocrit (Bld) [Volume fraction] 41.8 % Critically low 42.0-54.0 [facility] Comment on above: Performed By: #### C BC #### [facility] [address] [place] [address] Dr. Arielle Biswas Hemoglobin (Bld) [Mass/Vol] 13.6 g/dL Critically low 14.0-18.0 [facility] Comment on above: Performed By: #### C BC #### [facility] [address] [place] [address] Dr. Arielle Biswas IG # 0.03 10e3/ul Normal 0.00-0.03 [facility] Comment on above: Performed By: #### C BC #### [facility] [address] [place] [address] Dr. Arielle Biswas IG % 0.4 % Normal 0.0-0.5 [facility] Comment on above: Performed By: #### C BC #### [facility] [address] [place] [address] Dr. Arielle Biswas LYMPH # 1.2 103/ul Normal 1.2-3.8 [facility] Comment on above: Performed By: #### C BC #### [facility] [address] [place] [address] Dr. Arielle Biswas Lymphocytes/100 WBC (Bld) 16.5 % Critically low 20.5-60.0 [facility] Comment on above: Performed By: #### C BC #### [facility] [address] [place] [address] Dr. Arielle Biswas MANUAL DIFF REQ NO Normal [facility] Comment on above: Performed By: #### C BC #### [facility] [address] [place] [address] Dr. Arielle Biswas MCH (RBC) [Entitic mass] 31.2 pg Normal 25.9-34.0 [facility] Comment on above: Performed By: #### C BC #### [facility] [address] [place] [address] Dr. Arielle Biswas MCHC (RBC) [Mass/Vol] 32.5 g/dL Normal 29.9-35.2 [facility] Comment on above: Performed By: #### C BC #### [facility] [address] [place] [address] Dr. Arielle Biswas MCV (RBC) [Entitic vol] 95.9 fL Critically high 80.0-94.0 [facility] Comment on above: Performed By: #### C BC #### [facility] [address] [place] [address] Dr. Arielle Biswas MONO # 0.8 103/ul Normal 0.3-0.8 [facility] Comment on above: Performed By: #### C BC #### [facility] [address] [place] [address] Dr. Arielle Biswas Monocytes/100 WBC (Bld) 11.5 % Normal 1.7-12.0 [facility] Comment on above: Performed By: #### C BC #### [facility] [address] [place] [address] Dr. Arielle Biswas NEUT # 4.7 103/ul Normal 1.4-6.5 [facility] Comment on above: Performed By: #### C BC #### [facility] [address] [place] [address] Dr. Arielle Biswas Neutrophils/100 WBC (Bld) 67.3 % Normal 43.0-75.0 [facility] Comment on above: Performed By: #### C BC #### [facility] [address] [place] [address] [address] Arielle Biswas Platelet mean volume (Bld) [Entitic vol] 10.2 fL Normal 9.5-13.5 [facility] Comment on above: Performed By: #### C BC #### [facility] [address] [place] [address] Dr. Arielle Biswas PLT 243 103/ul Normal 150-450 [facility] Comment on above: Performed By: #### C BC #### [facility] [address] [place] [address] [address] Arielle Biswas RBC 4.36 106/ul Critically low 4.70-6.10 [facility] Comment on above: Performed By: #### C BC #### [facility] [address] [place] [address] Dr. Arielle Biswas WBC 7.0 103/ul Normal 4.0-11.0 [facility] Comment on above: Performed By: #### C BC #### [facility] [address] [place] [address] Dr. Arielle Biswas D-DIMERon 10-09-2021 D-DIMER 0.30 mg/L FEU Normal <=0.59 [facility] Comment on above: Performed By: #### E RUR #### [facility] [address] [place] [address] Dr. Arielle Biswas D-DIMER COMMENTS SEE BELOW Normal [facility] Comment on above: Result Comment: Incr [...] By: #### E RUR #### [facility] [address] [place] [address] [address] Arielle Biswas PROF 14(COMP METB)on 022 Albumin [Mass/Vol] 3.0 g/dL Critically low 3.4-5.0 [facility] Comment on above: Performed By: #### B BIOMEDICAL ELECTRONICS TECHNICIAN, TSH, CMP #### [facility] [address] [place] [address] [address] Arielle Biswas Albumin/Globulin [Mass ratio] 0.8 {ratio} Normal [facility] Comment on above: Performed By: #### B BIOMEDICAL ELECTRONICS TECHNICIAN, TSH, CMP #### [facility] [address] [place] [address] [address] Arielle Biswas ALP [Catalytic activity/Vol] 120 U/L Critically high 46-116 [facility] Comment on above: Performed By: #### B BIOMEDICAL ELECTRONICS TECHNICIAN, TSH, CMP #### [facility] [address] [place] [address] Dr. Arielle Biswas ALT [Catalytic activity/Vol] 21 U/L Normal 16-63 [facility] Comment on above: Performed By: #### B BIOMEDICAL ELECTRONICS TECHNICIAN, TSH, CMP #### [facility] [address] [place] [address] [address] Arielle Biswas Anion gap [Moles/Vol] 9.9 mmol/L Normal [facility] Comment on above: Performed By: #### B BIOMEDICAL ELECTRONICS TECHNICIAN, TSH, CMP #### [facility] [address] [place] [address] [address] Arielle Biswas AST [Catalytic activity/Vol] 20 U/L Normal 15-37 [facility] Comment on above: Performed By: #### B BIOMEDICAL ELECTRONICS TECHNICIAN, TSH, CMP #### [facility] [address] [place] [address] [address] Arielle Biswas Bilirubin [Mass/Vol] 0.6 mg/dL Normal 0.2-1.0 [facility] Comment on above: Performed By: #### B BIOMEDICAL ELECTRONICS TECHNICIAN, TSH, CMP #### [facility] [address] [place] [address] [address] Arielle Biswas Calcium [Mass/Vol] 8.8 mg/dL Normal 8.5-10.1 [facility] Comment on above: Performed By: #### B BIOMEDICAL ELECTRONICS TECHNICIAN, TSH, CMP #### [facility] [address] [place] [address] [address] Arielle Biswas Chloride [Moles/Vol] 103 mmol/L Normal 98-107 [facility] Comment on above: Performed By: #### B BIOMEDICAL ELECTRONICS TECHNICIAN, TSH, CMP #### [facility] [address] [place] [address] [address] Arielle Biswas CO2 [Moles/Vol] 29.0 mmol/L Normal 21.0-32.0 [facility] Comment on above: Performed By: #### B BIOMEDICAL ELECTRONICS TECHNICIAN, TSH, CMP #### [facility] [address] [place] [address] [address] Arielle Biswas Creatinine [Mass/Vol] 1.23 mg/dL Normal 0.70-1.30 [facility] Comment on above: Performed By: #### B BIOMEDICAL ELECTRONICS TECHNICIAN, TSH, CMP #### [facility] [address] [place] [address] Dr. Arielle Biswas EGFR-AF NAURUAN >60 Normal >=60 [facility] Comment on above: Performed By: #### B BIOMEDICAL ELECTRONICS TECHNICIAN, TSH, CMP #### [facility] [address] [place] [address] [address] Arielle Biswas EGFR-NON AF NAURUAN 59 mL/min/1.73m2 Critically low >=60 [facility] Comment on above: Performed By: #### B BIOMEDICAL ELECTRONICS TECHNICIAN, TSH, CMP #### [facility] [address] [place] [address] Dr. Arielle Biswas Globulin (S) [Mass/Vol] 3.7 g/dL Normal [facility] Comment on above: Performed By: #### B BIOMEDICAL ELECTRONICS TECHNICIAN, TSH, CMP #### [facility] [address] [place] [address] [address] Arielle Biswas Glucose [Mass/Vol] 95 mg/dL Normal 74-106 [facility] Comment on above: Performed By: #### B BIOMEDICAL ELECTRONICS TECHNICIAN, TSH, CMP #### [facility] [address] [place] [address] Dr. Arielle Biswas Potassium [Moles/Vol] 3.9 mmol/L Normal 3.5-5.1 [facility] Comment on above: Performed By: #### B BIOMEDICAL ELECTRONICS TECHNICIAN, TSH, CMP #### [facility] [address] [place] [address] Dr. Arielle Biswas Protein [Mass/Vol] 6.7 g/dL Normal 6.4-8.2 [facility] Comment on above: Performed By: #### B BIOMEDICAL ELECTRONICS TECHNICIAN, TSH, CMP #### [facility] [address] [place] [address] Dr. Arielle Biswas Sodium [Moles/Vol] 138 mmol/L Normal 136-145 [facility] Comment on above: Performed By: #### B BIOMEDICAL ELECTRONICS TECHNICIAN, TSH, CMP #### [facility] [address] [place] [address] Dr. Arielle Biswas Urea nitrogen [Mass/Vol] 13.0 mg/dL Normal 7.0-18.0 [facility] Comment on above: Performed By: #### B BIOMEDICAL ELECTRONICS TECHNICIAN, TSH, CMP #### [facility] [address] [place] [address] Dr. Arielle Biswas Urea nitrogen/Creatinine [Mass ratio] 10.6 mg/mg Normal [facility] Comment on above: Performed By: #### B BIOMEDICAL ELECTRONICS TECHNICIAN, TSH, CMP #### [facility] [address] [place] [address] Dr. Arielle Biswas TSHon 10-09-2021 TSH 0.393 uIU/mL Normal 0.358-3.740 [facility] Comment on above: Performed By: #### B BIOMEDICAL ELECTRONICS TECHNICIAN, TSH, CMP #### [facility] [address] [place] [address] Dr. Arielle Biswas Tobacco Screening.on 022 Adult depression screening assessment No [facility] [address] DO Work Phone: Fall risk assessment a) No falls within the last year [facility] [address] DO Work Phone: Tobacco use status CPHS b) No [facility] DO Work Phone: CARDIAC DAVON 3-6on 2 CK [Catalytic activity/Vol] 80 U/L Normal 39-308 [facility] Comment on above: Performed By: #### E RUR #### [facility] [address] [place] [address] Dr. Arielle Biswas CK.MB [Mass/Vol] 2.19 ng/mL Normal <=3.60 [facility] Comment on above: Performed By: #### E RUR #### [facility] [address] [place] [address] Dr. Arielle Biswas HSTROP 152.1 pg/mL Critically high 4.0-76.1 [facility] Comment on above: Result Comment: CUT- OFF POINTS HAVE BEEN ESTABLISHED BASED ON THE FOURTH UNIVERSAL DEFINITIONS OF MYOCARDIAL INFARCTION. THE UPPER REFERENCE LIMIT (URL) OF TROPONIN, DEFINED THE 99TH PERCENTILE OF cTnI DISTRIBUTION IN A REFERENCE POPULATION, HAS BEEN CONFIRMED THE DECISION THRESHOLD FOR [place] DIAGNOSIS. repeated Performed By: #### E RUR #### [facility] [address] [place] [address] Dr. Arielle Biswas CARDIAC DAVON ADMITon 022 CK [Catalytic activity/Vol] 32 U/L Critically low 39-308 [facility] Comment on above: Performed By: #### AMANDA Lindsay MP #### [facility] [address] [place] [address] Dr. Arielle iBswas CK.MB [Mass/Vol] 2.01 ng/mL Normal <=3.60 [facility] Comment on above: Performed By: #### AMANDA Lindsay MP #### [facility] [address] [place] [address] Dr. Arielle Biswas HSTROP 144.5 pg/mL Critically high 4.0-76.1 [facility] Comment on above: Result Comment: CUT- OFF POINTS HAVE BEEN ESTABLISHED BASED ON THE FOURTH UNIVERSAL DEFINITIONS OF MYOCARDIAL INFARCTION. THE UPPER REFERENCE LIMIT (URL) OF TROPONIN, DEFINED THE 99TH PERCENTILE OF cTnI DISTRIBUTION IN A REFERENCE POPULATION, HAS BEEN CONFIRMED THE DECISION THRESHOLD FOR [place] DIAGNOSIS. repeated Performed By: #### AMANDA Lindsay MP #### [facility] [address] [place] [address] Dr. Arielle Biswas PJ 39 ng/mL Normal 16-96 [facility] Comment on above: Performed By: #### B MP, CMADM #### [facility] [address] [place] [address] Dr. Arielle Biswas CBC AUTO DIFFon 07-14-2021 BASO # 0.1 103/ul Normal 0.0-0.1 [facility] Comment on above: Performed By: #### E RUR #### [facility] [address] [place] [address] Dr. Arielle Biswas Basophils/100 WBC (Bld) 0.5 % Normal 0.2-2.0 [facility] Comment on above: Performed By: #### E RUR #### [facility] [address] [place] [address] Dr. Arielle Biswas EO # 0.1 103/ul Normal 0.0-0.7 [facility] Comment on above: Performed By: #### E RUR #### [facility] [address] [place] [address] Dr. Arielle Biswas Eosinophils/100 WBC (Bld) 0.6 % Critically low 0.9-7.0 [facility] Comment on above: Performed By: #### E RUR #### [facility] [address] [place] [address] Dr. Arielle Biswas Erythrocyte distribution width (RBC) [Ratio] 14.6 % Normal 11.0-15.0 [facility] Comment on above: Performed By: #### E RUR #### [facility] [address] [place] [address] Dr. Arielle Biswas Hematocrit (Bld) [Volume fraction] 45.5 % Normal 42.0-54.0 [facility] Comment on above: Performed By: #### E RUR #### [facility] [address] [place] [address] Dr. Arielle Biswas Hemoglobin (Bld) [Mass/Vol] 14.5 g/dL Normal 14.0-18.0 [facility] Comment on above: Performed By: #### E RUR #### [facility] [address] [address] [address] Arielle Biswas IG # 0.13 10e3/ul Critically high 0.00-0.03 [facility] [facility] Comment on above: Performed By: #### E RUR #### [facility] [address] [place] [address] Dr. Arielle Biswas IG % 0.8 % Critically high 0.0-0.5 [facility] Comment on above: Performed By: #### E RUR #### [facility] [address] [place] [address] Dr. Arielle Biswas LYMPH # 1.4 103/ul Normal 1.2-3.8 [facility] Comment on above: Performed By: #### E RUR #### [facility] [address] [place] [address] Dr. Arielle Biswas Lymphocytes/100 WBC (Bld) 8.7 % Critically low 20.5-60.0 [facility] Comment on above: Performed By: #### E RUR #### [facility] [address] [place] [address] Dr. Arielle Biswas MANUAL DIFF REQ NO Normal [facility] Comment on above: Performed By: #### E RUR #### [facility] [address] [place] [address] Dr. Arielle Biswas MCH (RBC) [Entitic mass] 30.5 pg Normal 25.9-34.0 [facility] Comment on above: Performed By: #### E RUR #### [facility] [address] [place] [address] Dr. Arielle Biswas MCHC (RBC) [Mass/Vol] 31.9 g/dL Normal 29.9-35.2 [facility] Comment on above: Performed By: #### E RUR #### [facility] [address] [place] [address] Dr. Arielle Biswas MCV (RBC) [Entitic vol] 95.6 fL Critically high 80.0-94.0 [facility] Comment on above: Performed By: #### E RUR #### [facility] [address] [address] [address] Arielle Biswas MONO # 1.1 103/ul Critically high 0.3-0.8 [facility] Comment on above: Performed By: #### E RUR #### [facility] [address] [place] [address] Dr. Arielle Biswas Monocytes/100 WBC (Bld) 7.1 % Normal 1.7-12.0 [facility] Comment on above: Performed By: #### E RUR #### [facility] [address] [place] [address] Dr. Arielle Biswas NEUT # 12.9 103/ul Critically high 1.4-6.5 [facility] Comment on above: Performed By: #### E RUR #### [facility] [address] [place] [address] Dr. Arielle Biswas Neutrophils/100 WBC (Bld) 82.3 % Critically high 43.0-75.0 [facility] Comment on above: Performed By: #### E RUR #### [facility] [address] [place] [address] Dr. Arielle Biswas Platelet mean volume (Bld) [Entitic vol] 9.7 fL Normal 9.5-13.5 [facility] Comment on above: Performed By: #### E RUR #### [facility] [address] [place] [address] Dr. Arielle Biswas PLT 206 103/ul Normal 150-450 [facility] Comment on above: Performed By: #### E RUR #### [facility] [address] [place] [address] Dr. Arielle Biswas RBC 4.76 106/ul Normal 4.70-6.10 [facility] Comment on above: Performed By: #### E RUR #### [facility] [address] [place] [address] Dr. Arielle Biswas WBC 15.6 103/ul Critically high 4.0-11.0 [facility] Comment on above: Performed By: #### E RUR #### [facility] [address] [place] [address] Dr. Arielle Biswas CTA CHEST WO W [...] content not included)... Normal [facility] Covid-19 PCR (CVDTBH)on 06-25 SARS-CoV-2 (COVID-19) RNA ELKIN+probe Ql (Unsp spec) Not detected Normal NOT DETECTED [facility] Comment on above: Result Comment: When diagnostic testing is negative, the possibility of a false negative should be considered in the context of a patient's recent exposures and the presence of clinical signs and symptoms consistent with SARS-CoV-2. This test is not yet approved or cleared by the [place] Food and Drug Administration (FDA). This test was developed by [employer], [place], [place]. The performance characteristics of this test were validated by [facility]. The results are not intended to be used as the sole means for clinical diagnosis or patient management decisions. [facility] is authorized under Clinical Laboratory Improvement [...] for this test is supported by the [place] of Health and Human Service's declaration that [...] By: #### E RUR #### [facility] [address] [address] [address] Arielle Biswas ER URINE PROFILEon 2 Bilirubin Ql (U) Negative Normal NEGATIVE [facility] Comment on above: Performed By: #### E RUR #### [facility] [address] [place] [address] Dr. Arielle Biswas Clarity (U) CLEAR Normal CLEAR [facility] Comment on above: Performed By: #### E RUR #### [facility] [address] [place] [address] Dr. Arielle Biswas Color (U) LT. YELLOW Normal YELLOW [facility] Comment on above: Performed By: #### E RUR #### [facility] [address] [place] [address] Dr. Arielle Biswas ERUSHANITA A micrscopic examina tion will be performed if indicated. Normal [facility] Comment on above: Performed By: #### E RUR #### [facility] [address] [place] [address] Dr. Arielle Biswas Glucose Ql (U) Negative Normal NEGATIVE [facility] Comment on above: Performed By: #### E RUR #### [facility] [address] [place] [address] Dr. Arielle Biswas Hemoglobin Ql (U) Negative Normal NEGATIVE [facility] Comment on above: Performed By: #### E RUR #### [facility] [address] [place] [address] Dr. Arielle Biswas Ketones Ql (U) Negative Normal NEGATIVE [facility] Comment on above: Performed By: #### E RUR #### [facility] [address] [place] [address] Dr. Arielle Biswas LEUKOCYTES Negative Normal NEGATIVE [facility] Comment on above: Performed By: #### E RUR #### [facility] [address] [place] [address] Dr. Arielle Biswas Nitrite Ql (U) Negative Normal NEGATIVE [facility] Comment on above: Performed By: #### E RUR #### [facility] [address] [place] [address] Dr. Arielle Biswas pH (U) 6.0 [pH] Normal 5-9 [facility] Comment on above: Performed By: #### E RUR #### [facility] [address] [place] [address] Dr. Arielle Biswas SPEC GRAVITY 1.005 Normal 1.005-<=1.0 25 [facility] Comment on above: Performed By: #### E RUR #### [facility] [address] [place] [address] Dr. Arielle Biswas UA PROTEIN Negative Normal NEGATIVE/ TRACE [facility] Comment on above: Performed By: #### E RUR #### [facility] [address] [address] [address] Arielle Biswas UR MICRO IND NOT INDICATED Normal [facility] Comment on above: Performed By: #### E RUR #### [facility] [address] [place] [address] Dr. Arielle Biswas Urobilinogen Qn (U) 0.2 {Fernando'U}/dL Normal 0.2 - 1. 0 [facility] Comment on above: Performed By: #### E RUR #### [facility] [address] [place] [address] Dr. Arielle Biswas LACTATE/LACTIC ACIDon 2021 Lactate [Moles/Vol] 3.0 mmol/L Critically high 0.4-1.9 [facility] Comment on above: Result Comment: repe ated Performed By: #### E RUR #### [facility] [address] [place] [address] Dr. Arielle Biswas PROF CHEM 8 (BAS METB)on Anion gap [Moles/Vol] 14.0 mmol/L Normal [facility] Comment on above: Performed By: #### B MANJULA ESTESDM #### [facility] [address] [place] [address] Dr. Arielle Biswas Calcium [Mass/Vol] 8.9 mg/dL Normal 8.5-10.1 [facility] Comment on above: Performed By: #### B FRANKLYN, CMADM #### [facility] [address] [place] [address] Dr. Arielle Biswas Chloride [Moles/Vol] 96 mmol/L Critically low 98-107 [facility] Comment on above: Performed By: #### B FRANKLYN, CMADM #### [facility] [address] [place] [address] Dr. Arielle Biswas CO2 [Moles/Vol] 26.5 mmol/L Normal 21.0-32.0 [facility] Comment on above: Performed By: #### B FRANKLYN, CMADM #### [facility] [address] [place] [address] Dr. Arielle Biswas Creatinine [Mass/Vol] 1.43 mg/dL Critically high 0.70-1.30 [facility] Comment on above: Performed By: #### B FRANKLYN, CMADM #### [facility] [address] [place] [address] Dr. Arielle Biswas EGFR-AF NAURUAN 60 mL/min/1.73m2 Normal >=60 [facility] Comment on above: Performed By: #### B FRANKLYN, CMADM #### [facility] [address] [place] [address] Dr. Arielle Biswas EGFR-NON AF NAURUAN 50 mL/min/1.73m2 Critically low >=60 [facility] Comment on above: Performed By: #### B FRANKLYN, CMADM #### [facility] [address] [place] [address] Dr. Arielle Biswas Glucose [Mass/Vol] 122 mg/dL Critically high 74-106 [facility] Comment on above: Performed By: #### B FRANKLYN, CMADM #### [facility] [address] [place] [address] Dr. Arielle Biswas Potassium [Moles/Vol] 3.5 mmol/L Normal 3.5-5.1 [facility] Comment on above: Performed By: #### B FRANKLYN, CMADM #### [facility] [address] [place] [address] Dr. Arielle Biswas Sodium [Moles/Vol] 133 mmol/L Critically low 136-145 [facility] Comment on above: Performed By: #### B FRANKLYN, CMADM #### [facility] [address] [place] [address] Dr. Arielle Biswas Urea nitrogen [Mass/Vol] 12.0 mg/dL Normal 7.0-18.0 [facility] Comment on above: Performed By: #### B FRANKLYN, MANJULADM #### [facility] [address] [place] [address] Dr. Arielle Biswas Urea nitrogen/Creatinine [Mass ratio] 8.4 mg/mg Normal [facility] Comment on above: Performed By: #### B MANJULA ESTESDM #### [facility] [address] [place] [address] Dr. Arielle Biswas PROTIMEon 07-14-2021 INR Coag (PPP) [Relative time] 0.99 {INR} Normal [facility] Comment on above: Performed By: #### P TT, PT #### [facility] [address] [place] [address] Dr. Arielle Biswas INR GUIDELINES SEE BELOW Normal [facility] Comment on above: Result Comment: YANG RED INR: 2.0 - 3.0 CONDITIONS NOT LISTED BELOW 2.5 - 3.5 FOR PROSTHETIC HEART VALVE REPLACEMENT 2.5 - 3.5 RECURRENT THROMBOSIS Performed By: #### P TT, PT #### [facility] [address] [place] [address] Dr. Arielle Biswas PT Coag (PPP) [Time] 10.7 s Normal 9.0-11.6 [facility] Comment on above: Performed By: #### P TT, PT #### [facility] [address] [place] [address] Dr. Arielle Biswas PTTon 07-14-2021 aPTT Coag (Bld) [Time] 26.6 s Normal 22.3-36.2 [facility] Comment on above: Performed By: #### P TT, PT #### [facility] [address] [place] [address] Dr. Arielle Biswas Tobacco Screening.on 022 Fall risk assessment a) No falls within the last year -[facility] [address] DO Work Phone: Tobacco use status CPHS b) No -[facility] [address] DO Work Phone: Tobacco Screening. Yes [facility] [address] DO Work Phone: [phone] Tobacco Screening.on 021 Fall risk assessment a) No falls within the last year [facility] [address] DO Work Phone: Tobacco use status CP b) No [facility] [address] DO Work Phone: Tobacco Screening.on Fall risk assessment a) No falls within the last year [facility] [address] DO Work Phone: Tobacco use status CPHS b) No [facility] [address] DO Work Phone: [phone] Vital Signs Date Time Vital Sign Value Performing Clinician Facility 03-29-2024 11:47-0500 Blood Pressure Location ALAN HURST [facility] 03-29-2024 11:47-0500 Diastolic blood pressure 86 mm[Hg] ALAN HURST [facility] 03-29-2024 11:47-0500 Heart rate 88 /min ALAN HURST [facility] 03-29-2024 11:47-0500 Systolic blood pressure 138 mm[Hg] ALAN HURST [facility] 01-08-2024 10:04-0500 Body height 175.3 cm Cecilio Go MD Work Phone: [facility] 01-08-2024 10:04-0500 Body mass index (BMI) [Ratio] 30.72 kg/m2 Cecilio Go MD Work Phone: [facility] 01-08-2024 10:04-0500 Body weight 94.35 kg Cecilio Go MD Work Phone: [facility] 01-08-2024 10:04-0500 Diastolic blood pressure 82 mm[Hg] Cecilio Go MD Work Phone: [facility] 01-08-2024 10:04-0500 Heart rate 60 /min Cecilio Go MD Work Phone: [facility] 01-08-2024 10:04-0500 Systolic blood pressure 120 mm[Hg] Cecilio Go MD Work Phone: [facility] 11-17-2023 10:20-0400 Body height 175.26 cm MD Radames Witt Work Phone: [facility] 11-17-2023 10:20-0400 Body mass index (BMI) [Ratio] 30.4 kg/m2 MD Radames Witt Work Phone: [facility] 11-17-2023 10:20-0400 Body temperature 97.4 [degF] MD Radames Witt Work Phone: [facility] 11-17-2023 10:20-0400 Body weight 93.44 kg MD Radames Witt Work Phone: [facility] 11-17-2023 10:20-0400 Diastolic blood pressure 83 mm[Hg] MD Radames Witt Work Phone: [facility] 11-17-2023 10:20-0400 Heart rate 69 /min MD Radames Witt Work Phone: [facility] 11-17-2023 10:20-0400 Respiratory rate 20 /min MD Radames Witt Work Phone: [facility] 11-17-2023 10:20-0400 SaO2% (BldA) [Mass fraction] 95 % MD Radames Witt Work Phone: [facility] 11-17-2023 10:20-0400 Systolic blood pressure 164 mm[Hg] MD Radames Witt Work Phone: [facility] 08-21-2023 11:11-0400 Body height 175.26 cm MD Radames Witt Work Phone: [facility] 08-21-2023 11:11-0400 Body mass index (BMI) [Ratio] 29.9 kg/m2 MD Radames Witt Work Phone: [facility] 08-21-2023 11:11-0400 Body temperature 96.1 [degF] MD Radames Witt Work Phone: [facility] 08-21-2023 11:11-0400 Body weight 92.07 kg MD Radames Witt Work Phone: [facility] 08-21-2023 11:11-0400 Diastolic blood pressure 80 mm[Hg] MD Radames Witt Work Phone: [facility] 08-21-2023 11:11-0400 Heart rate 77 /min MD Radames Witt Work Phone: [facility] 08-21-2023 11:11-0400 SaO2% (BldA) [Mass fraction] 97 % MD Radames Witt Work Phone: [facility] 08-21-2023 11:11-0400 Systolic blood pressure 140 mm[Hg] MD Radames Witt Work Phone: [facility] 04-09-2023 10:04-0500 Body height 175.26 cm MD Jean Nicholson Work Phone: [facility] 04-09-2023 10:04-0500 Body mass index (BMI) [Ratio] 29.9 kg/m2 MD Jean Nicholson Work Phone: [facility] 04-09-2023 10:04-0500 Body temperature 96.7 [degF] MD Jean Nicholson Work Phone: [facility] 04-09-2023 10:04-0500 Body weight 92.07 kg MD Jean Nicholson Work Phone: [facility] 04-09-2023 10:04-0500 Diastolic blood pressure 93 mm[Hg] MD Jean Nicholson Work Phone: [facility] 04-09-2023 10:04-0500 Heart rate 98 /min MD Jean Nicholson Work Phone: [facility] 04-09-2023 10:04-0500 Respiratory rate 20 /min MD Jean Nicholson Work Phone: [facility] 04-09-2023 10:04-0500 SaO2% (BldA) [Mass fraction] 100 % MD Jean Nicholson Work Phone: [facility] 04-09-2023 10:04-0500 Systolic blood pressure 152 mm[Hg] MD Jean Nicholson Work Phone: [facility] 12-23-2022 10:50-0400 Blood Pressure Location Marino SPEAR [facility] 12-23-2022 10:50-0400 Diastolic blood pressure 62 mm[Hg] Marino SPEAR [facility] 12-23-2022 10:50-0400 Heart rate 69 /min Marino SPEAR [facility] 12-23-2022 10:50-0400 Respiratory rate 16 /min Marino SPEAR [facility] 12-23-2022 10:50-0400 Systolic blood pressure 95 mm[Hg] Marino SPEAR [facility] 11-07-2022 10:56-0400 Body temperature 98.6 [degF] Radames Hoy Other Phone: [facility] 11-07-2022 10:56-0400 Diastolic blood pressure 69 mm[Hg] Radames Hoy Other Phone: [facility] 11-07-2022 10:56-0400 Heart rate 97 /min Radames Hoy Other Phone: [facility] 11-07-2022 10:56-0400 Respiratory rate 16 /min Radames Hoy Other Phone: [facility] 11-07-2022 10:56-0400 SaO2% (BldA) [Mass fraction] 96 % Radames Hoy Other Phone: [facility] 11-07-2022 10:56-0400 Systolic blood pressure 113 mm[Hg] Radames Hoy Other Phone: [facility] 10-30-2022 10:00-0400 Body height 175.26 cm Danna Violeta Other [employer] Other 10-30-2022 10:00-0400 Body mass index (BMI) [Ratio] 30.27 kg/m2 Danna Violeta Other [employer] Other 10-30-2022 10:00-0400 Body temperature 97 [degF] Danna Violeta Other [employer] Other 10-30-2022 10:00-0400 Body weight 92.99 kg Danna Violeta Other [employer] Other 10-30-2022 10:00-0400 Diastolic blood pressure 75 mm[Hg] Danna Violeta Other [employer] Other 10-30-2022 10:00-0400 Respiratory rate 20 /min Danna Violeta Other [employer] Other 10-30-2022 10:00-0400 SaO2% (BldA) [Mass fraction] 96 % Danna Violeta Other [employer] Other 10-30-2022 10:00-0400 Systolic blood pressure 116 mm[Hg] Danna Violeta Other [employer] Other 08-23-2022 12:57-0400 Body height 175.26 cm Radames Álvarez Hoy Work Phone: [facility] [place] Work Phone: 08-23-2022 12:57-0400 Body mass index (BMI) [Ratio] 30.57 kg/m2 Radames Preeti Hoy Work Phone: [facility] [place] Work Phone: 08-23-2022 12:57-0400 Body surface area Derived from formula 2.1 m2 Radames Álvarez Hoy Work Phone: [facility] [place] Work Phone: 08-23-2022 12:57-0400 Body weight 93.9 kg Radames Álvarez Hoy Work Phone: [facility] [place] Work Phone: 08-20-2022 11:30-0400 Body height 175.26 cm Danna Violeta Other [employer] Other 08-20-2022 11:30-0400 Body mass index (BMI) [Ratio] 30.42 kg/m2 Danna Violeta Other [employer] Other 08-20-2022 11:30-0400 Body temperature 96.8 [degF] Danna Violeta Other [employer] Other 08-20-2022 11:30-0400 Body weight 93.44 kg Danna Violeta Other [employer] Other 08-20-2022 11:30-0400 Diastolic blood pressure 80 mm[Hg] Danna Violeta Other [employer] Other 08-20-2022 11:30-0400 Respiratory rate 20 /min Danna Violeta Other [employer] Other 08-20-2022 11:30-0400 SaO2% (BldA) [Mass fraction] 97 % Danna Violeta Other [employer] Other 08-20-2022 11:30-0400 Systolic blood pressure 142 mm[Hg] Danna Violeta Other [employer] Other 08-15-2022 09:30-0400 Body height 175.26 cm Bianka Rosszhang Other [employer] Other 08-15-2022 09:30-0400 Body mass index (BMI) [Ratio] 30.57 kg/m2 Bianka Rosszhang Other [employer] Other 08-15-2022 09:30-0400 Body temperature 96.7 [degF] Bianka Rossareliso Other [employer] Other 08-15-2022 09:30-0400 Body weight 93.9 kg Bianka Rossareliso Other [employer] Other 08-15-2022 09:30-0400 Diastolic blood pressure 70 mm[Hg] Bianka Shainao Other [employer] Other 08-15-2022 09:30-0400 SaO2% (BldA) [Mass fraction] 98 % Bianka Shainao Other [employer] Other 08-15-2022 09:30-0400 Systolic blood pressure 118 mm[Hg] Bianka Garcia Other [employer] Other 06-04-2022 11:33-0400 Body height 175.26 cm Radames M Hoy Work Phone: [facility] [address] DO Work Phone: 06-04-2022 11:33-0400 Body mass index (BMI) [Ratio] 30.13 kg/m2 Radames M Hoy Work Phone: [facility] [address] DO Work Phone: 06-04-2022 11:33-0400 Body surface area Derived from formula 2.08 m2 Radames M Hoy Work Phone: [facility] DO Work Phone: 06-04-2022 11:33-0400 Body weight 92.53 kg Radames M Hoy Work Phone: [facility] [address] DO Work Phone: 06-04-2022 11:33-0400 Diastolic blood pressure 72 mm[Hg] Radames M Hoy Work Phone: [facility] DO Work Phone: 06-04-2022 11:33-0400 Heart rate 68 /min Radames M Hoy Work Phone: [facility] DO Work Phone: 06-04-2022 11:33-0400 Systolic blood pressure 110 mm[Hg] Radames M Hoy Work Phone: [facility] DO Work Phone: 02-05-2022 15:30-0500 Body height 175.26 cm Danna Mcdaniel Other [employer] Other 02-05-2022 15:30-0500 Body mass index (BMI) [Ratio] 29.97 kg/m2 Danna Violeta Other [employer] Other 02-05-2022 15:30-0500 Body temperature 98.4 [degF] Danna Violeta Other [employer] Other 02-05-2022 15:30-0500 Body weight 92.08 kg Danna Violeta Other [employer] Other 02-05-2022 15:30-0500 Diastolic blood pressure 83 mm[Hg] Danna Violeta Other [employer] Other 02-05-2022 15:30-0500 Respiratory rate 20 /min Danna Violeta Other [employer] Other 02-05-2022 15:30-0500 SaO2% (BldA) [Mass fraction] 96 % Danna Violeta Other [employer] Other 02-05-2022 15:30-0500 Systolic blood pressure 143 mm[Hg] Danna Violeta Other [employer] Other 12-11-2021 11:39-0400 Body height 175.26 cm Jaen Saeed Naderer Work Phone: [facility] [employer] [facility] DO Work Phone: 12-11-2021 11:39-0400 Body mass index (BMI) [Ratio] 30.72 kg/m2 Jean A Naderer Work Phone: [facility] [employer] [facility] DO Work Phone: 12-11-2021 11:39-0400 Body surface area Derived from formula 2.1 m2 Jean Mejiaerer Work Phone: [facility] [employer] 250 DO Work Phone: 12-11-2021 11:39-0400 Body weight 94.35 kg Jean Mejiaerer Work Phone: [facility] [employer] [address] DO Work Phone: 12-11-2021 11:39-0400 Diastolic blood pressure 72 mm[Hg] Jean Mejiaerer Work Phone: [facility] [employer] DO Work Phone: 12-11-2021 11:39-0400 Heart rate 72 /min Jean Mejiaerer Work Phone: [facility] [employer] [address] DO Work Phone: 12-11-2021 11:39-0400 Systolic blood pressure 124 mm[Hg] Jean Mejiaerer Work Phone: [facility] [employer] [address] DO Work Phone: 08-21-2021 15:00-0400 Body height 175.26 cm Danna Violeta Other [employer] Other 08-21-2021 15:00-0400 Body mass index (BMI) [Ratio] 28.35 kg/m2 Danna Violeta Other [employer] Other 08-21-2021 15:00-0400 Body temperature 97.5 [degF] Danna Violeta Other [employer] Other 08-21-2021 15:00-0400 Body weight 87.09 kg Danna Violeta Other [employer] Other 08-21-2021 15:00-0400 Diastolic blood pressure 70 mm[Hg] Danna Violeta Other [employer] Other 08-21-2021 15:00-0400 Respiratory rate 20 /min Danna Violeta Other [employer] Other 08-21-2021 15:00-0400 SaO2% (BldA) [Mass fraction] 94 % Danna Violeta Other [employer] Other 08-21-2021 15:00-0400 Systolic blood pressure 110 mm[Hg] Danna Violeta Other [employer] Other 08-15-2021 11:30-0400 Body height 175.26 cm Julian Matthews Other [employer] Other 08-15-2021 11:30-0400 Body mass index (BMI) [Ratio] 28.06 kg/m2 Julian Matthews Other [employer] Other 08-15-2021 11:30-0400 Body temperature 97.5 [degF] Julian Matthews Other [employer] Other 08-15-2021 11:30-0400 Body weight 86.18 kg Julian Matthews Other [employer] Other 08-15-2021 11:30-0400 Diastolic blood pressure 68 mm[Hg] Julian Matthews Other [employer] Other 08-15-2021 11:30-0400 SaO2% (BldA) [Mass fraction] 98 % Julian Matthews Other [employer] Other 08-15-2021 11:30-0400 Systolic blood pressure 102 mm[Hg] Julian Gutierrezradha Other [facility] Other 08-02-2021 08:32-0400 Body height 175.26 cm Jean A Naderer Work Phone: Formerly [facility] 250 DO Work Phone: 08-02-2021 08:32-0400 Body mass index (BMI) [Ratio] 28.8 kg/m2 Jean A Naderer Work Phone: [facility] 250 DO Work Phone: 08-02-2021 08:32-0400 Body surface area Derived from formula 2.04 m2 Jean A Naderer Work Phone: Former[facility] [employer] 250 DO Work Phone: 08-02-2021 08:32-0400 Body weight 88.45 kg Jean A Naderer Work Phone: [facility] 250 DO Work Phone: 08-02-2021 08:32-0400 Diastolic blood pressure 62 mm[Hg] Jean A Naderer Work Phone: [facility] 250 DO Work Phone: 08-02-2021 08:32-0400 Heart rate 68 /min Jean A Naderer Work Phone: [facility] 250 DO Work Phone: 08-02-2021 08:32-0400 Systolic blood pressure 108 mm[Hg] Jean A Naderer Work Phone: [facility] 250 DO Work Phone: 07-14-2021 00:00-0400 60 1 Jean A Naderer Work Phone: [facility] 250 DO Work Phone: Comment on above: [id number] 04-30-2021 13:22-0500 Body height 175.26 cm Jean A Naderer Work Phone: [facility] 250 DO Work Phone: 04-30-2021 13:22-0500 Body mass index (BMI) [Ratio] 29.45 kg/m2 Jean A Naderer Work Phone: [facility] 250 DO Work Phone: 04-30-2021 13:22-0500 Body surface area Derived from formula 2.06 m2 Jean A Naderer Work Phone: [facility] 250 DO Work Phone: 04-30-2021 13:22-0500 Body weight 90.45 kg Jean A Naderer Work Phone: [facility] 250 DO Work Phone: 04-30-2021 13:22-0500 Diastolic blood pressure 90 mm[Hg] Jean A Naderer Work Phone: [facility] 250 DO Work Phone: 04-30-2021 13:22-0500 Heart rate 69 /min Jean A Naderer Work Phone: [facility] 250 DO Work Phone: 04-30-2021 13:22-0500 Systolic blood pressure 134 mm[Hg] Jean A Naderer Work Phone: [facility] 250 DO Work Phone: 02-20-2021 14:06-0500 Body height 175.26 cm Jean A Naderer Work Phone: [facility] 250 DO Work Phone: 02-20-2021 14:06-0500 Body mass index (BMI) [Ratio] 29.98 kg/m2 Jean Saeed Naderer Work Phone: [facility] 250 DO Work Phone: 02-20-2021 14:06-0500 Body surface area Derived from formula 2.08 m2 Jean Saeed Naderer Work Phone: [facility] 250 DO Work Phone: 02-20-2021 14:06-0500 Body weight 92.08 kg Jean Saeed Naderer Work Phone: [facility] 250 DO Work Phone: 02-20-2021 14:06-0500 Diastolic blood pressure 76 mm[Hg] Jean Christophe Naderer Work Phone: [facility] 250 DO Work Phone: 02-20-2021 14:06-0500 Heart rate 80 /min Jean Saeed Naderer Work Phone: [facility] 250 DO Work Phone: 02-20-2021 14:06-0500 Systolic blood pressure 110 mm[Hg] Jean Christophe Naderer Work Phone: [facility] 250 DO Work Phone: 02-06-2021 16:10-0500 Diastolic blood pressure 84 mm[Hg] Jean Christophe Naderer Work Phone: [facility] 250 DO Work Phone: 02-06-2021 16:10-0500 Systolic blood pressure 130 mm[Hg] Jean Christophe Naderer Work Phone: [facility] 250 DO Work Phone: 02-06-2021 15:37-0500 Body height 175.26 cm Jean Saeed Naderer Work Phone: [facility] 250 DO Work Phone: 02-06-2021 15:37-0500 Body mass index (BMI) [Ratio] 30.13 kg/m2 Jean Saeed Naderer Work Phone: [facility] 250 DO Work Phone: 02-06-2021 15:37-0500 Body surface area Derived from formula 2.08 m2 Jean Saeed Naderer Work Phone: [facility] [employer] 250 DO Work Phone: 02-06-2021 15:37-0500 Body weight 92.53 kg Jean Saeed Naderer Work Phone: [facility] [employer] 250 DO Work Phone: 02-06-2021 15:37-0500 Diastolic blood pressure 90 mm[Hg] Jean Saeed Jackieerer Work Phone: [facility] [employer] 250 DO Work Phone: 02-06-2021 15:37-0500 Heart rate 125 /min Jean Christophe Naderer Work Phone: [facility] [employer] 250 DO Work Phone: 02-06-2021 15:37-0500 Systolic blood pressure 128 mm[Hg] Jean Saeed Naderer Work Phone: [facility] [employer] 250 DO Work Phone: 11-30-2020 11:30-0400 Body height 175.26 cm Danna Violeat Other [employer] Other 11-30-2020 11:30-0400 Body mass index (BMI) [Ratio] 29.68 kg/m2 Danna Violeta Other [employer] Other 11-30-2020 11:30-0400 Body weight 91.17 kg Danna Violeta Other [employer] Other 11-30-2020 11:30-0400 Diastolic blood pressure 83 mm[Hg] Danna Violeta Other [employer] Other 11-30-2020 11:30-0400 Respiratory rate 20 /min Danna Violeta Other [employer] Other 11-30-2020 11:30-0400 SaO2% (BldA) [Mass fraction] 98 % Danna Violeta Other [employer] Other 11-30-2020 11:30-0400 Systolic blood pressure 126 mm[Hg] Adnna Violeta Other [employer] Other Encounters Encounter Date Encounter Type Care Provider Facility Start: 03-31-2025 ambulatory ALAN Colmenares ty:[facility] [place] Start: 03-24-2025 ambulatory ALAN Colmenares ty:[facility] Start: 05-03-2024 End: 05-03-2024 [facility] Start: 04-19-2024 End: 04-19-2024 ambulatory Maribell Leigh MD Facility: [place] Start: 03-29-2024 End: 03-29-2024 ambulatory ALAN HURST Facility:[facility] Start: 03-29-2024 End: 03-29-2024 Patient encounter procedure [facility] Start: 03-22-2024 End: 03-22-2024 ambulatory Marino SPEAR [facility] Start: 03-22-2024 End: 03-22-2024 Lab Drop off Marino SPEAR [facility] Start: 03-22-2024 End: 03-22-2024 ambulatory Marino SPEAR Facility:[facility] Start: 03-22-2024 End: 03-22-2024 Patient encounter procedure Marino SPEAR [facility] [place] Start: 01-08-2024 End: 01-08-2024 Office outpatient visit 25 minutes Cecilio Go MD Work Phone: [facility] Comment on above: Essential hypertensi on; Mitral valve insufficiency, unspecified etiology; Pulmonary fibrosis (Multi); Pulmonary embolism, unspecified chronicity, unspecified pulmonary embolism type, unspecified whether acute cor pulmonale present (Multi); Mixed hyperlipidemia; Abdominal aortic aneurysm (AAA) without rupture, unspecified part ([facility]); Lung crackles; Class 1 obesity due to excess calories without serious comorbidity with body mass index (BMI) of 30.0 to 30.9 in adult Start: 01-08-2024 End: 01-08-2024 ambulatory [facility] Start: 12-26-2023 ambulatory Marino SPEAR Facili ty:[facility] Start: 11-17-2023 End: 11-17-2023 ambulatory MD Radames Witt Work Phone: [facility] Work Phone: Start: 11-17-2023 End: 11-17-2023 Patient encounter procedure MD Radames Witt Work Phone: [facility] Work Phone: Start: 11-11-2023 End: 11-11-2023 Office outpatient visit 15 minutes Curtis Meléndez MD Work Phone: [facility] Comment on above: Lumbar pain (Primary Dx) Start: 11-11-2023 End: 11-11-2023 Subsequent hospital visit by physician Serene Shetty X-Ray 2 [facility] Comment on above: Lumbar pain Start: 11-11-2023 End: 11-11-2023 ambulatory [facility] Start: 09-22-2023 End: 09-22-2023 ambulatory Maribell Leigh MD Facility:[facility] [place] Start: 08-21-2023 End: 08-21-2023 ambulatory MD Radames Witt Work Phone: [facility] Work Phone: Start: 08-21-2023 End: 08-21-2023 Patient encounter procedure MD Radames Witt Work Phone: [facility] Work Phone: Start: 06-03-2023 End: 06-03-2023 Office outpatient visit 15 minutes Curtis Meléndez MD Work Phone: [facility] Comment on above: Low back pain, unspe cified back pain laterality, unspecified chronicity, unspecified whether sciatica present (Primary Dx); Lumbar pain Start: 06-03-2023 End: 06-03-2023 Subsequent hospital visit by physician Serene Ayers101 X-Ray 2 [facility] Comment on above: Lumbar pain Start: 06-03-2023 End: 06-03-2023 ambulatory [facility] Start: 05-19-2023 End: 05-19-2023 ambulatory Maribell Leigh MD Facility:[facility] [place] Start: 04-14-2023 End: 04-14-2023 Patient encounter procedure MD Jean Nicholson Work Phone: [facility] Work Phone: Start: 04-14-2023 End: 04-14-2023 ambulatory MD Jean Nicholson Work Phone: [facility] Work Phone: Start: 04-09-2023 End: 04-09-2023 ambulatory MD Jean Nicholson Work Phone: [facility] Work Phone: Start: 04-09-2023 End: 04-09-2023 Patient encounter procedure MD Jean Nicholson Work Phone: [facility] Work Phone: Start: 03-04-2023 End: 03-04-2023 Patient encounter procedure MD Jean Nicholson Work Phone: [facility]Res[facility] Work Phone: Start: 03-04-2023 End: 03-04-2023 ambulatory MD Jean Nicholson Work Phone: [facility] Work Phone: Start: 02-28-2023 End: 02-28-2023 Office outpatient visit 15 minutes Curtis Meléndez MD Work Phone: [facility] Comment on above: Low back pain, unspe cified back pain laterality, unspecified chronicity, unspecified whether sciatica present (Primary Dx) Start: 02-28-2023 End: 02-28-2023 ambulatory [facility] Start: 12-23-2022 End: 12-23-2022 Patient encounter procedure Marino SPEAR [facility] Start: 11-19-2022 Patient encounter procedure Radames Witt [facility] Work Phone: Start: 11-19-[address] Curtis Meléndez Facility:[id number] Start: 11-04-2022 End: 11-07-2022 Evaluation and management of inpatient [facility] 610 Start: 10-30-2022 End: 10-30-2022 ambulatory Danna Mcdaniel Other [employer] Other Start: 10-30-2022 Office outpatient vi sit 25 minutes Danna Violeta [facility] Start: 10-22-2022 Patient encounter procedure Radames Álvarez Millicent Work Phone: [facility] Work Phone: Start: 10-22-[address] Curtis Meléndez Facility:[id number] Start: 10-22-2022 Encounter for other preprocedural examination Dr. Curtis Meléndez [facility] Start: 10-21-[address] Radames Wtit Facility:[id number] Start: 10-21-2022 Encounter for preprocedural cardiovascular examination Dr. Curtis Meléndez [facility] Start: 10-21-2022 Encounter for preprocedural laboratory examination Dr. Curtis Meléndez [facility] Start: 09-19-2022 Patient encounter procedure Radames Witt Work Phone: [facility] Work Phone: Start: 09-19-[address] Radames Witt Facility:[id number] Start: 08-23-2022 Chart Update Radames Witt Work Phone: [facility] Work Phone: Start: 08-23-2022 Patient encounter procedure Radames Witt Work Phone: [facility] Work Phone: Start: 08-23-[address] Radames Witt Facility:[id number] Start: 08-20-2022 End: 08-20-2022 ambulatory Danna Violeta Other [employer] Other Start: 08-20-2022 Office outpatient vi sit 25 minutes Danna Violeta [facility] Start: 08-15-2022 End: 08-15-2022 Patient encounter procedure Bianka Garcia [facility] Start: 08-15-2022 End: 08-15-2022 ambulatory MD Jean Nicholson Work Phone: [facility] Other Start: 07-31-2022 Chart Update [facility] Work Phone: Start: 07-31-[address] Cecilio Go Facility:[id number] Start: 07-02-2022 End: 07-03-[address] IRAIS LORENZANA Facility:[facility]1 Start: 06-05-2022 AUDIT Radames Witt Work Phone: [facility] Work Phone: Start: 06-04-2022 Patient encounter procedure [facility]ames Witt [facility] Work Phone: Start: 06-04-[address] Radames Witt Facility: Start: 05-09-2022 End: 05-10-2022 ambulatory LAUREN BAUMANN . Facility:[facility]1 Start: 04-19-2022 Rx Renewal Jean Nicholson Work Phone: [facility] 250 DO Work Phone: Start: 02-18-2022 End: 02-19-[address] BRITANY TSANG Facility:[facility]1 Start: 02-07-2022 End: 02-08-2022 ambulatory LAUREN BAUMANN . Facility:[facility] Start: 02-05-2022 End: 02-05-2022 ambulatory Danna Violeta Other [facility] Other Start: 02-05-2022 Office outpatient vi sit 25 minutes Danna Violeta [facility] Start: 12-20-2021 End: 12-21-[address] MARINO SPEAR . Facility:[facility]1 Start: 12-11-2021 Office outpatient vi sit 25 minutes Jean Nicholson Work Phone: [facility] 250 DO Work Phone: Start: 12-11-[address] Jean Nicholson Facility:[id number] Start: 11-27-2021 End: 11-28-[address] LORENA ANDERSON . Facility:[facility]1 Start: 11-27-2021 Rx Renewal Jean Nicholson Work Phone: [facility] 250 DO Work Phone: Start: 11-05-2021 End: 11-06-[address] BRITANY TSANG Facility:H1 Start: 10-17-2021 End: 10-18-[address] RADAMES WITT . Facility:[facility]1 Start: 10-12-2021 Rx Renewal Jean Nicholson Work Phone: [facility] 250 DO Work Phone: Start: 10-09-2021 End: 10-10-2021 ambulatory KATHERINE MARTINEZ Facility:[facility]1 Start: 08-30-2021 End: 08-31-2021 ambulatory LAUREN BAUMANN . Facility:[facility] Start: 08-21-2021 End: 08-21-2021 ambulatory Danna Violeta Other [employer] Other Start: 08-21-2021 Office outpatient vi sit 25 minutes Danna Violeta [facility] Start: 08-16-2021 End: 08-16-2021 ambulatory Bianka Garcia Other [employer] Other Start: 08-16-2021 Telephone encounter Bianka Lira [facility] Start: 08-15-2021 End: 08-15-2021 ambulatory Julian Matthews Other [employer] Other Start: 08-15-2021 Office outpatient vi sit 25 minutes Julian Matthews [facility] Start: 08-02-2021 Office outpatient vi sit 25 minutes Jean Nicholson [facility] Work Phone: Start: 07-20-2021 End: 07-20-2021 ambulatory Bianka Garcia Other [facility] Other Start: 07-20-2021 Telephone encounter Bianka Lira [facility] Start: 07-14-2021 End: 07-14-2021 ambulatory CYNDI SIBLEY Facility: Start: 04-30-2021 Office outpatient vi sit 25 minutes Jean A Naderer Work Phone: [facility] [employer] 250 DO Work Phone: Start: 03-26-2021 Rx Renewal Jean A Naderer Work Phone: [facility] [employer] 250 DO Work Phone: Start: 02-20-2021 Patient encounter procedure Jean A Naderer Work Phone: [facility] [employer] 250 DO Work Phone: Start: 11-30-2020 Office [...] By: #### P SAD #### [facility] [address] [place] [address] Dr. Arielle Biswas Start: 07-14-2021 Operation for pulmon brian embolism Marino SPEAR Start: 03-21-2016 Radical prostatectomy Cesario SPEAR Start: 01-15-2016 Cystoscopy Marino BECKY BATISTA Start: 01-15-2016 Transrectal biopsy o f prostate using ultrasound guidance Marino SPEAR Colonoscopy Jean A Naderer Work Phone: Comment on above: Feb 2017; Colonoscopy Marino SPEAR Extraction of cataract Maguikee bobo SPEAR Operation on lung Jean A Nad [...] 65+ Years (3 - PPSV23 or PCV20) [facility] Start: 01-03-2025 Pneumococcal Vaccine : 65+ Years (3 of 3 - PPSV23 or PCV20) Pneumococcal Vaccine: 65+ Years (3 of 3 - PPSV23 or PCV20) [facility] Start: 08-20-2024 End: 08-20-2024 Patient encounter procedure 08/20/2024 2:30 PM EDT Office Visit [facility] [address] [facility] [address] [place] [address] Cecilio Go MD [facility] [facility] [address] [place] [address] [facility] Start: 01-08-2024 End: 01-08-2024 Patient encounter procedure 01/08/2024 10:10 AM EST Office Visit [facility] [address] [place] [address] Cecilio Go MD [address] [facility] [place] [address] [facility] Start: 12-05-2023 End: 12-05-2023 Patient encounter procedure 12/05/2023 1:30 PM EDT Office Visit [facility] [address] [address] Curtis Meléndez MD [address] [facility], [address] [place] [id number] [facility] Start: 10-26-2023 COVID-19 Vaccine ( season) COVID-19 Vaccine ( season) [facility] Start: 10-26-2023 COVID-19 Vaccine ( season) COVID-19 Vaccine ( season) [facility] Start: 10-26-2023 Influenza vaccination Influenza Vacc ine (#1) [facility] Start: 06-17-2023 End: 06-17-2023 Patient encounter procedure 06/17/2023 10:20 AM EDT Office Visit [facility] [address] [place] [address] Cecilio Go MD [address] [facility] [address], [address] [place] [address] [facility] Start: 04-14-2023 CT Chest WO contrast [facility] Start: 04-14-2023 CT of chest without contrast CT chest wo con high res [facility] Start: 02-28-2023 End: 02-29-2024 XR Lumbar spine 2 or 3 Views [facility] Service Area Work Phone: Comment on above: Expected: 02/28/2023 , Expires: 02/29/2024 Start: 12-10-2022 FUV, Provider: Cecilio Go, Status: Pen, Time: 11:10 AM FUV, Provider: Cecilio Go, Status: Pen, Time: 11:10 AM [facility] DO Work Phone: Start: 12-09-2022 FUV, Provider: Cecilio Go, Status: Pen, Time: 3:00 PM FUV, Provider: Cecilio Go, Status: Pen, Time: 3:00 PM [facility] Work Phone: Start: 12-09-2022 Patient encounter procedure [facility] [place] Start: 11-19-2022 Patient encounter procedure [facility] Start: 11-19-2022 POV, Provider: Curtis Meléndez, Status: Pen, Time: 1:30 PM POV, Provider: Curtis Meléndez, Status: Pen, Time: 1:30 PM [facility] Work Phone: Start: 11-05-2022 End: 11-05-2023 [facility] Start: 11-04-2022 End: 11-05-2023 [facility] Comment on above: If oral and IV lucita cotics ordered, use oral first and only use IV if oral is ineffective or cannot take oral. Do NOT give oral and IV within one hour of each other unless specificaly ordered. If NO result from Se nokot. Do NOT use with [employer]. Start: 11-04-2022 [facility], Provider: Curtis Meléndez, Status: Pen, Time: 7:30 AM [facility], Provider: Curtis Meléndez, Status: Pen, Time: 7:30 AM [facility] Work Phone: Start: 10-25-2022 COVID-19 Vaccine () COVID-19 Vaccine () [facility] Start: 10-22-2022 [facility], Provider: Curtis Meléndez, Status: Pen, Time: 1:30 PM [facility], Provider: Curtis Meléndez, Status: Pen, Time: 1:30 PM [facility] Work Phone: Start: 09-24-2022 FUV, Provider: Curtis Meléndez, Status: Pen, Time: 1:30 PM FUV, Provider: Curtis Meléndez, Status: Pen, Time: 1:30 PM [facility] Work Phone: Start: 08-23-2022 NPV, Provider: Curtis Meléndez, Status: Pen, Time: 1:15 PM NPV, Provider: Curtis Meléndez, Status: Pen, Time: 1:15 PM [facility] 250 DO Work Phone: Start: 08-15-2022 US scan of aorta US aorta [facility] Start: 08-15-2022 US Thoracic and abdominal aorta [facility] Start: 08-08-2022 ambulatory Ambulatory Facility:H 1 Start: 07-31-2022 AOILIVC, Provider: FRANKIE LOYAI ULTRASOUND ,[id number], Status: Pen, Time: 1:30 PM AOILIVC, Provider: FRANKIE LOYAI [employer]TR[employer] 01,[id number], Status: Pen, Time: 1:30 PM [facility] Work Phone: Start: 06-04-2022 FUV, Provider: Cecilio Go, Status: Pen, Time: 11:30 AM FUV, Provider: Cecilio Go, Status: Pen, Time: 11:30 AM -[facility] 250 DO Work Phone: Start: 02-06-2022 FUV, Provider: Cecilio Go, Status: Pen, Time: 8:50 AM FUV, Provider: Cecilio Go, Status: Pen, Time: 8:50 AM -[facility] [employer] 250 DO Work Phone: Start: 12-11-2021 FUV, Provider: Cecilio Go, Status: Pen, Time: 11:20 AM FUV, Provider: Cecilio Go, Status: Pen, Time: 11:20 AM [facility] [employer] 250 DO Work Phone: Start: 04-30-2021 FUV, Provider: Cecilio Go, Status: Pen, Time: 1:20 PM FUV, Provider: Cecilio Go, Status: Pen, Time: 1:20 PM -[facility] 250 DO Work Phone: Start: 02-15-2021 COVID-19 Vaccine (4 - Moderna series) COVID-19 Vaccine (4 - Moderna series) [facility] Start: 2015 RSV High Risk: (Elderly (60+) or Population) (1 - Risk 60-74 years 1-dose series) RSV High Risk: (Elderly (60+) or Population) (1 - Risk 60-74 years 1-dose series) [facility] Start: 2015 RSV patient s and/or patients aged 60+ years (1 - 1-dose 60+ series) RSV patients and/or patients aged 60+ years (1 - 1-dose 60+ series) [facility] Start: 10-18-2005 Zoster Vaccines (1 o f 2) Zoster Vaccines (1 of 2) [facility] Start: 10-18-1977 DTaP/Tdap/Td Vaccine s (1 - Tdap) DTaP/Tdap/Td Vaccines (1 - Tdap) [facility] Start: 10-18-1973 Diabetes mellitus screening Diabetes Screening [facility] Start: 10-18-1973 Hepatitis C screening Hepatitis C [facility] Start: 1955 Lipid panel Lipid Panel [facility] Start: 1955 Medicare Annual Wellness Visit Medicare Annual Wellness Visit (AWV) [facility] Start: 1955 Screening for malignant neoplasm of colon [facility] CT Chest WO contrast [place] [facility] Immunizations Immunization Date Immunization Notes Care Provider Rhys estevez 11-06-2022 influenza, high dose seasonal, preservative-free Radames Witt Other Phone: [facility] 11-06-2022 influenza virus vaccine, unspecified formulation Curtis Meléndez MD Work Phone: [facility] Work Phone: 12-26-2021 Fluad Quadrivalent 0 .5 ML Intramuscular Prefilled Syringe Jean Nicholson Work Phone: [facility] 308 DO Work Phone: 12-26-2021 influenza, seasonal, injectable Curtis Meléndez MD Work Phone: [facility] Work Phone: 12-21-2020 [employer] COVID-19 Vacc 30 MCG/0.3ML Intramuscular Suspension Jean Nicholson Work Phone: [facility] 12-21-2020 pneumococcal conjuga te vaccine, 13 valent Jean Nicholson Work Phone: [facility] 12-21-2020 zoster vaccine recombinant Jean Nicholson Work Phone: [facility] 250 DO Work Phone: 12-21-2020 zoster vaccine, unspecified formulation Curtis Meléndez MD Work Phone: [facility] Work Phone: 12-10-2020 Fluad Quadrivalent 0 .5 ML Intramuscular Prefilled Syringe Jean Nicholson Work Phone: [facility] 250 DO Work Phone: 12-10-2020 influenza, seasonal, injectable Curtis Meléndez MD Work Phone: [facility] Work Phone: 06-21-2020 COVID-19 Vaccine Moderna - Documentation Purposes Only Danna Mcdaniel Other [employer] Other 05-09-2020 COVID-19 Vaccine Moderna - Documentation Purposes Only Danna Mcdaniel Other [employer] Other 01-04-2020 influenza, injectabl e, quadrivalent, preservative free Jean A Naderer Work Phone: [facility] YAZUO DO Work Phone: 01-04-2020 influenza, seasonal, injectable Curtis Meléndez MD Work Phone: [facility] Work Phone: 01-04-2020 pneumococcal polysaccharide vaccine, 23 valent Jean A Naderer Work Phone: [facility] 12-20-2019 influenza, seasonal, injectable Jean A Naderer Work Phone: [facility] 10-25-2018 influenza, injectabl e, quadrivalent, preservative free Curtis Meléndez MD Work Phone: [facility] Work Phone: 10-25-2018 influenza, seasonal, injectable Jean A Naderer Work Phone: [facility] [employer] 250 DO Work Phone: 11-24-2017 influenza virus vaccine, unspecified formulation Jean A Naderer Work Phone: [facility] [employer] 250 DO Work Phone: 02-25-2016 pneumococcal polysaccharide vaccine, 23 valent Jean A Naderer Work Phone: [facility] Payers Date Payer Category Payer Dual Eligibility Medicare/Medicaid Organization [facility] DUAL COMPLETE [id number] 2023 Private Health Insurance [facility] DUAL [facility]TE [facility] DUAL COMPLETE [id number] 2023-Present [address] [address] [place] [address] [id number] 2023 Private Health Insurance [id number] 2023 Medicare 2022 Self-pay [id number] 2022 Unknown 2020 Unknown [id number] 2.16840.1.529196.19 2020 Medicaid [id number]. 1.13.647.2 .[id number] 2020 Medicaid [id number] 2020 Unknown [id number] 2.16.840.1.459035.19 1959 Unknown [id number] 1955 Unknown [id number] 2.16.840.1.974437.3.579.2 .593 1955 Unknown [id number] 2.16.840.1.586266.3.579.2 .593 1955 Unknown [id number] 2.16.840.1.909891.3.579.2 .593 1955 Unknown [id number] 2.16.840.1.208211.3.579.2 .593 1955 Unknown [id number] 2.16.840.1.763840.3.579.2 .593 1955 Unknown [id number] 2.16.840.1.867505.3.579.2 .593 1955 Unknown [id number] 2.16.840.1.370984.3.579.2 .593 1955 Unknown [id number] 2.16.840.1.552311.3.579.2 .593 1955 Unknown [id number] 2.16.840.1.753798.3.579.2 .593 1955 Unknown [id number] 2.16.840.1.225394.3.579.2 .593 1955 Unknown [id number] 2.840.1.235102.3.579.2 .593 1955 Unknown [id number] 2.16.840.1.991861.3.579.2 .593 1955 Unknown [id number] 2.16.840.1.920953.3.579.2 .356 1955 Unknown [id number] 2.16.840.1.755386.3.579.2 .356 1955 Unknown [id number] 2.16840.1.025546.3.579.2 .1068 1955 Unknown [id number] 2.16.840.1.551277.3.579.2 .1068 1955 Unknown [id number] 2.16.840.1.257633.3.579.2 .1068 1955 Unknown [id number] 2.16.840.1.717717.3.579.2 .1068 1955 Unknown [id number] 2.16.840.1.092609.3.579.2 .1068 1955 Unknown [id number] 2.16.840.1.300403.3.579.2 .1068 1955 Unknown [id number] 2.16.840.1.624152.3.579.2 .1068 1955 Unknown [id number] 2.16.840.1.609762.3.579.2 .1246 1955 Unknown [id number] 2.16.840.1.218523.3.579.2 .1246 1955 Unknown [id number] 2.16.840.1.042785.3.579.2 .1245 1955 Unknown [id number] 2.16.840.1.298038.3.579.2 .1245 1955 Unknown [id number] 2.16840.1.138212.3.579.2 .124 1955 Unknown [id number] 2.16.840.1.988201.3.579.2 .1246 1955 Unknown [id number] 2.16840.1.075383.3.579.2 .7 1955 Unknown [id number] 2.16.840.1.280678.3.579.2 .727 1955 Unknown [id number] 2.16840.1.940942.3.579.2 .727 1955 Unknown [id number] 2.16.840.1.941994.3.579.2 .727 1955 Unknown [id number] 2.16840.1.148673.3.579.2 .727 1955 Unknown [id number] 2.16.840.1.426388.3.579.2 .727 1955 Unknown [id number] 2.16840.1.090457.3.579.2 .1244 1955 Unknown [id number] 2.16.840.1.738225.3.579.2 .196 1955 Unknown [id number] 2.16.840.1.474367.3.579.2 .196 1955 Unknown [id number] 2.16.840.1.688282.3.579.2 .196 1955 Unknown [id number] 2.16.840.1.201107.3.579.2 .196 Medicare [id number] 2.16.840.1.116811.19 Medicare Lely MCR PFFS [id number] Medicare [id number] Unknown [id number] 2.16.840.1.131783.3.579.2 .531 Unknown [id number] 2.16840.1.488105.3.579.2 .531 Unknown [id number] 2.16.840.1.463725.3.579.2 .531 Social History Date Type Detail Facility Start: 12-09-2022 End: 01-08-2024 Former smoker Former smoker [facility] 250 DO Work Phone: Start: 12-09-2022 End: 01-08-2024 Sex Assigned At [facility] Start: 07-14-2021 End: 12-09-2022 Tobacco smoking status AKIS Never smoked tobacco (finding) [facility] Start: 1955 Sex Assigned At Male F [facility] Tobacco smoking consumption unknown [facility] Start: 12-18-2020 End: 03-29-2024 Tobacco smoking status Ex-smoker (finding) [facility] Start: 12-09-2022 Tobacco use and exposure Smokeless tobacco non-user [facility] Work Phone: Start: 12-09-2022 End: 01-08-2024 Alcohol intake Lifetime non-drinker (finding) [facility] Work Phone: Start: 1955 Sex Assigned At Not on file U [facility] Work Phone: Start: 02-18-2023 End: 01-08-2024 Exposure to SARS-CoV-2 (event) Not sure [facility] Functional Status Date Assessment Result Facility 03-29-2024 Functional Status N/A [facility] 12-23-2022 Functional Status N/A [facility] Functional observable [place] Mental Status Date Assessment Result Facility 11-06-2022 Cognitive functions 04312:[id number] [facility] Clinical Notes 11-30-2020 to 03-29-2024 Cecilio Go MD - 01/08/2024 10:10 AM ESTPatient InstructionsAttachmentsCurtis Meléndez MD - 11/11/2023 9:15 AM EDTRvinay Meléndez MD - 06/03/2023 1:45 PM EDT [...] Follow these instructions at home: Medicines Take yvli-bmz-jmxbpkh and prescription medicines only as told by [...] provider. Document Revised: 05/09/2021 Document Reviewed: 05/09/2021 [employer] Patient Education 2023 Elite Form. Follow Up Care 03/09/2024 09:44:23 With:NATALI LEON, ALAN Abraham, URL Address: [address] [place] [address]. [place] [address] When:Within 1 Year(s) [facility] 03-29-20[facility] Note Patient Education Urology Erectile Dysfunction [...] these instructions at home: Medicines ??? Take cvav-not-irkfgxm and prescription medicines only as told by [...] Do not u (more content not included)... [facility] 01-08-2024 History of Present illness Narrative Subjective [...] aortic aneurysm (AAA) without rupture, unspecified part ([facility]) 7. Lung crackles 8. Class 1 obesity due to excess calories without serious comorbidity with body mass index (BMI) of 30.0 to 30.9 in adult Scribe Attestation By signing my name below, I, Giovani Andino LPN attest that this documentation has been prepared [...] discussion and plan. documented in this encounter [facility] Work Phone: 01-08-2024 Instructions Annemarie Flores [...] be sent through Care Everywhere.Heart Healthy Diet ([place])documented in this encounter [facility] Work Phone: 11-11-2023 History of Present [...] split dictation. -Nicolas Kohli PA-C In a pxpp-ql-ljoe encounter, I performed a history and physical [...] MD Orthopedic surgery documented in this encounter [facility] Work Phone: 06-03-2023 History of Present [...] split dictation. -Nicolas Kohli PA-C In a frmc-gk-lmar encounter, I performed a history and physical [...] MD Orthopedic surgery documented in this encounter [facility] Work Phone: 02-28-2023 History of Present [...] portion of this split dictation. In a uqkw-nz-wlxn encounter, I performed a history and physical [...] the lumbar spine. documented in this encounter [facility] Work Phone: 12-23-2022 Hospital Discharge instructions [...] treatment? Where to find more information [employer]: www.cancer.org [employer]: www.auanet.org Contact a health care [...] provider. Document Revised: 08/06/2021 Document Reviewed: 08/06/2021 [employer] Patient Education 2022 Elite Form. Follow Up Care 12/21/2021 12:26:12 With:RAINER JIMENEZ, Marino Calabrese, URL Address: [facility] [address] , [place] [phone] When: Unknown Comments:1 yr w/ PSA [facility] 11-07-2022 Note Send Summary: Discharge Summary Providers: Provider RoleProvider Name Radames Conner Robert ConsultingKher, Chirag PrimaryRadames Witt Note Recipients: Curtis Meléndez MD - [id number] [Preferred] Radames Witt MD - [id number] [] Cayden Flores MD Discharge: Summary: Admission Date: .04-Nov-2022 05:14:00 Discharge Date: 07-Nov-2022 Attending Physician at Discharge: Curtis Meléndez Admission Reason: Lumbar stenosis and spondylolisthesis(1) Final Discharge Diagnoses: Back pain Procedures: Date: 04-Nov-2022 13:07:00 Procedure Name: 1. 2. 3. 4. 5. Condition at Discharge: Satisfactory Disposition at Discharge: .Home Vital Signs: T PRBPMAPSpO2 [id number]% Date/Time11/07 8:5611/07 8:5611/07 8:5614 8:5611/06 21:08914 8:56 Range(36.7C - 37.1C ) (63 - [...] please call ahead and schedule appointment Location: [address] [facility] Phone Number: [phone] Discharge Medications: Home Medication furosemide 20 mg [...] tab(s) orally once a day Potassium Chloride (Rao-Rayn-Eyz 10) 10 mEq oral tablet, extended release [...] discharge: Full Code Electronic Signatures: Gilda Mcmahon ([employer] SECRETARY-EQUIPMENT SERVICE ENGINEER) (Signed 07-Nov-2022 09:26) Authored: Send Summary, Summary Content, Immunizations, Ongoing Care, DNR Status, Note Completion Last Updated: 07-Nov-2022 09:26 by Gilda Mcmahon ([employer] SECRETARY-EQUIPMENT SERVICE ENGINEER) References: 1. Data Referenced From [facility]-General Internal Medicine 04-Nov-2022 16:29 [facility] 11-04-2022 Note Post Operative Note: Post-Procedure Diagnosis: Lumbar stenosis and spondylolisthesis Procedure: 1. 2. 3. 4. 5. Surgeon: Ángela Resident/Fellow/Other Helicopter Technician: Alice Estimated Blood Loss (mL): 100 cc Specimen: no Findings: Lumbar stenosis and spondylolisthesis Operative Report Dictated: Dictation: not applicable - note contains Operative Report Note Recipients: Curtis Meléndez MD - [id number] [Preferred] Radames Witt MD - [id number] [] Operative Report: Preoperative diagnosis: L2-3 and [...] Meléndez M.D. Asst.: Sonu HillThe physician medical laboratory assistant was present through the entire case. Given the nature of the disease process and the procedure to be performed a skilled certified surgical assistant was necessary during the case. The medical laboratory assistant was necessary in order to hold retractors and directly assist in the operation. A certified nutritionist was at the back table managing instruments [...] dilat (more content not included)... [facility] 11-04-2022 Reason for referral (narrative) Reason for Referral: Surgery 11.04.2022 L3-4 lateral interbody fusion, L2-3 and L3-4 laminectomy and posterior lateral fusion, L3-4 lateral instrumentation, thermal ablation of median nerve to L2-3 and L3-4 [facility] 10-30-2022 Evaluation note Encounter Date Diagnosis Assessment Notes Oct, Diastolic dysfunction (ICD-10 - I51.89) Continue all recommendati on/medicatio ns per your [employer] Floor Layer . Oct, ILD (interstitial lung disease) (ICD-10 - J84.9) Pulmonary Function Test as scheudled prior to next office appointment. [employer] Other 07-27-2023 History of Present illness NarrativeGarry [...] sweats. He has no bowel or bladder complaints.-[facility] Work Phone: [phone] 759-411206-27-2023 Evaluation note* Encounter Date Diagnosis Assessment Notes Treatment Notes Treatment Clinical Notes Jul, Diastolic dysfunction (ICD-10 - I51.89) Jul, ILD (interstitial lung disease) (ICD-10 - J84.9) I reviewed results and images of your Chest CT completed at [facility] 10/2021 and 01/2022. There is evidence of very mild fibrosis (scarring). Continue with physcial activity as you are. [employer] Other 06-22-2023 Evaluation note* Encounter Date Diagnosis [...] agrees with plan, and denies any questions. [employer] Other 03-16-2023 NoteCONSULTATION CONSULTATION DATE: 05/09/2022 HISTORY: [...] is currently under the care of a loan servicing representative. Most recent physician appointment does show that his lungs are slowly improving. He does have a Cardiology appointment on 06/13/2022, and at that time, he will discuss with the regional retail sales manager regarding possible use of sedation and holding [...] Patient agrees with this care.[facility] [id number] NoteCONSULTATION CONSULTATION DATE: 02/07/2022 HISTORY OF PRESENT [...] still being followed up with Pulmonology in [facility] and, most recently, they feel he [...] three months, unless otherwise indicated.[facility] [id number] Evaluation note* Encounter Date Diagnosis Assessment Notes Treatment Notes Treatment Clinical Notes Jan, Diastolic dysfunction (ICD-10 - I51.89) Jan, ILD (interstitial lung disease) (ICD-10 - J84.9) I will look at Chest CT from [place] and let you know if any further testing is needed. Jan, Dyspnea (ICD-10 - R06.00) [employer] Other 10-04-2022 NoteCONSULTATION CONSULTATION DATE: 11/27/2021 CHIEF [...] is under the care of Dr. Go, regional retail sales manager, who has suggested that the patient not hold the Eliquis for any treatment right now and, as such, we will maintain a conservative approach. IMPRESSION: As such, the patient's current working diagnosis is chronic low back pain, new diagnosis of cystic fibrosis. A recent CT of the lung was performed and the patient is under the care of [facility]. The patient is also under anticoagulation therapy. PLAN: We will refill the patient's Percocet 5/325 b.i.d. The patient will be returning in clinic as needed. The patient has had a rhizotomy, radiofrequency along the low back and, as such, is stable with regards to his low back.[facility] [id number] NoteCONSULTATION CONSULTATION DATE: 08/30/2021 This is a [...] leg. The patient was transferred to [facility] where the large PE was surgically [...] be followed up in three months' time. IFC Signed and Approved by: LAUREN BAUMANN . 09/06/2021 09:46:00[facility]06-28-2022 Evaluation note* Encounter Date Diagnosis Assessment [...] physcial activity....walk 3-4x a day to start. [employer] Other 06-22-2022 Evaluation note* Encounter Date Diagnosis [...] the plan all his questions were addressed. [employer] Other 10-07-2021 Evaluation note* Encounter Date Diagnosis [...] Nov, Other Try Mylanta for acid reflux. [employer] Other Evaluation + Plan note Future Appointments Appointment Date:12/26/2023 11:00:00 AM Scheduled Provider:Marino SPEAR MD Location:[facility] Appointment Type:URO Office Visit Diagnostic Tests Pending * PSA Total 12/23/22 [facility] evaluation + Plan note Future Appointments Appointment Date:03/29/2024 11:40:00 AM Scheduled Provider:ALAN HURST PA-C Location:[facility] Appointment Type:URO Office Visit Diagnostic Tests Pending * PSA Total 03/22/24 [facility] Evaluation + Plan note Future Appointments Appointment Date:03/29/2024 11:40:00 AM Scheduled Provider:ALAN HURST PA-C Location:[facility] Appointment Type:URO Office Visit [facility] evaluation + Plan note Future Appointments Appointment Date:03/24/2025 10:30:00 AM Scheduled Provider: Location:[facility] Appointment Type:URO Nurse Visit Appointment Date:03/31/2025 09:40:00 AM Scheduled Provider:ALAN HURST PA-C Location:[facility] Appointment Type:URO Office Visit Future Scheduled Tests Laboratory* PSA Total 03/29/25 [facility] evaluation noteNo InformationNort [facility] Other evaluwulws noteNo assessment information available [facility] Work Phone: evaluation note* Constitutional: Well developed, awake/alert/oriented x3, no [...] response and reflexes, normal strength [facility]* Diagnosis Low back pain, unspecified back pain laterality, unspecified chronicity, unspecified whether sciatica present- Primary documented in this encounter [facility] Work Phone: Evaluation note* Diagnosis Onset Date Resolution Status Grade I diastolic dysfunction acute Pulmonary fibrosis [facility] Work Phone: Evaluation note* Diagnosis Low back pain, unspecified back pain laterality, unspecified chronicity, unspecified whether sciatica present- Primary Lumbar pain Lumbago documented in this encounter [facility] Work Phone: Evaluation note* Diagnosis Lumbar pain Lumbago documented in this encounter [facility] Work Phone: Evaluation note* Diagnosis Onset Date Resolution Status AAA (abdominal aortic aneurysm) [facility] Work Phone: Evaluation note* Diagnosis Onset Date Resolution Status AAA (abdominal aortic aneurysm) acute Bronchiectasis acute Grade I diastolic dysfunction acute Pulmonary fibrosis [facility] Work Phone: Evaluation note* Diagnosis Essential hypertension Unspecified essential hypertension Mitral valve insufficiency, unspecified etiology Pulmonary fibrosis (Multi) Postinflammatory pulmonary fibrosis Pulmonary embolism, unspecified chronicity, unspecified pulmonary embolism type, unspecified whether acute cor pulmonale present (Multi) Mixed hyperlipidemia Abdominal aortic aneurysm (AAA) without rupture, unspecified part (CMS-HCC) Lung crackles Class 1 obesity due to excess calories without serious comorbidity with body mass index (BMI) of 30.0 to 30.9 in adult documented in this encounter [facility] Work Phone: Evaluation note* Diagnosis Lumbar pain Lumbago documented in this encounter [facility] Work Phone: Evaluation note* Diagnosis Lumbar pain- Primary Lumbago Lumbar pain Lumbago documented in this encounter [facility] Work Phone: History general Narrative - Reported* Type Description Date Medical History COPD Medical History asthma Medical History sleep apnea (negative PSG) Medical History aaa Medical History pe Surgical History spine 2001 Surgical History neck 2004 Surgical History prostate biopsy 2017 Surgical History dental extraction Hospitalization History as above Hospitalization History 2021 [employer] Other Hisscqd general Narrative - Reported* Type Description Date Medical History NOEL Medical History COPD Medical History asthma Medical History sleep apnea Surgical History spine 2001 Surgical History neck 2004 Surgical History prostate biopsy 2017 Hospitalization History as above [employer] Other Hisnwga general Narrative - Reported* Type Description Date Medical History COPD Medical History asthma Medical History sleep apnea (negative PSG) Surgical History spine 2001 Surgical History neck 2004 Surgical History prostate biopsy 2017 Hospitalization History as above [employer] Other Hiswxlc general Narrative - Reported* Type Description Date Medical History COPD Medical History asthma Medical History sleep apnea (negative PSG) Medical History aaa Medical History pulmonary embolism Surgical History spine 2001 Surgical History neck 2004 Surgical History prostate biopsy 2017 Surgical History dental extraction Hospitalization History as above Hospitalization History pulmonary embolism [facility] 06/2021 [employer] Other Hismsil general Narrative - Reported* Type Description Date Medical History COPD Medical History asthma Medical History sleep apnea (negative PSG) Medical History aaa Medical History pulmonary embolism Medical History interstitial lung disease Medical History diastolic dysfunction Surgical History spine 2001 Surgical History neck 2004 Surgical History prostate biopsy 2017 Surgical History dental extraction Hospitalization History as above Hospitalization History pulmonary embolism [facility] 06/2021 [employer] Other History of Present illness Xi is [...] [facility] pain management [facility] in [place] Work Phone: Hospital course Narrative No data available for this section [facility] Hospital Discharge instructions* Activity:activity as tolerated. [...] weeks, please call ahead and schedule appointmentLocation: [address] [place]: [phone] [facility] Dis[facility] instructions No data available for this section [facility] progress note No data available for this section [facility] Chief Complaint Pt came in today [...] for follow-up for recent admission to [facility] with bilateral pulmonary embolism leading to [...] anticoagulation to be monitored closely * ERIK VICKEY is being seen for a 7 month follow-up of. * Patient is in the office for follow-up for for pulmonary embolism. Recently follow-up CT scan at [facility] revealed resolution of the pulmonary emboli. Some other pathology was noted with densities requiring follow-up imaging in 3 to 6 months which has been arranged through his PCP. He is cu rrently anticoagulated with Eliquis. The patient is contemplating further dental work in December which he should be able to hold anticoagulation prior to. Recent nuclear stress test at [facility] was reviewed and shared with the patient and was normal. He is also known to have normal ejection fraction. He currently has no complaint to report physical examination was only remarkable for 8 pounds weight gain from last visit. He is now in the obesity range recent medical record from [facility] were reviewed with the patient and [...] thoracic and lumbar xrays and MRI in [place]. brought a disc.new patient. low back pain with RT sided pain to nee x 2 months. h/o sx in 1998. thoracic and lumbar xrays and MRI in [place]. brought a disc.F/U Lumbar after therapy, says [...] Specialty Diagnoses / Procedures Referred By Rona guzmán Referred To Contact Radiology Diagnoses Lumbar pain Procedures XR lumbar spine 2-3 views Curtis Meléndez MD [address] [facility], [address] [place] [id number] Referral ID Status Reason Start Date Expiration Date Visits Requested Visits Authorized [id number] Authorized Perform Procedure 06/03/2023 06/02/2024 1 1 Specialty Diagnoses / Procedures Referred By Rona guzmán Referred To Contact Radiology Diagnoses Low back pain, unspecified back pain laterality, unspecified chronicity, unspecified whether sciatica present Procedures XR lumbar spine 2-3 views Curtis Meléndez MD [address] [facility], [address] [place] [id number] Referral ID Status Reason Start Date Expiration Date Visits Requested Visits Authorized [id number] Authorized Perform Procedure 02/28/2023 02/28/2024 1 1 [...] 2-3 views Curtis Meléndez MD [address] [facility], [address] [place] [id number] Referral ID Status Reason Start Date Expiration Date Visits Requested Visits Authorized [id number] Authorized Perform Procedure 06/03/2023 06/02/2024 1 1 Reason Comments Follow-up 6m Specialty Diagnoses / Procedures Referred By Contac t Referred To Contact Cardiology Diagnoses Essential hypertension Mitral valve insufficiency, unspecified etiology Procedures Follow Up In Cardiology Cecilio Go MD [address] [place] [address], [address] [address] Phone: tel: fax: Referral ID Status Reason Start Date Expiration Date Visits Re quested Visits Authorized [id number] Closed 12/09/2022 06/07/2023 1 1 Referral ID Status Reason Start Date Expiration Date Visits Requested Visits Authorized [id number] Authorized Perform Procedure 11/11/2023 11/10/2024 1 1 Reason Comments Follow-up L3-4 Lateral lumbar Fusion above prior L4-5 Fusion/L2-3, L3-4 Midline Lami from 11/04/22, xrays 1 year out Specialty Diagnoses / Procedures Referred By Contac t Referred To Contact Cardiology Diagnoses Essential hypertension Mitral valve insufficiency, unspecified etiology Procedures Follow Up In Cardiology Cecilio Go MD [address] [facility] [address] [place] [address] (unrecognized sect ion and content) No Status Records FoundNo Status Records FoundNo Status Records FoundNo Status Records FoundNo Status Records FoundNo Status Records FoundNo Status Records FoundNo Status Records FoundNo Status Records FoundNo Status Records Found INFORMATION SOURCE (unrecogn ized section and content) DATE CREATED AUTHOR 07/07/2022 [facility] DATE CREATED AUTHOR AUTHOR'S ORGANIZ ATION 10/25/2022 [facility] DATE CREATED AUTHOR AUTHOR'S ORGANIZ ATION 11/29/2022 [employer] DATE CREATED AUTHOR AUTHOR'S ORGANIZ ATION [facility]22 [facility] DATE CREATED AUTHOR AUTHOR'S ORGANIZ ATION 08/22/2023 [facility] DATE CREATED AUTHOR AUTHOR'S ORGANIZ ATION 11/17/2023 [facility] DATE CREATED AUTHOR AUTHOR'S ORGANIZ ATION 03/30/2024 [facility] DATE CREATED AUTHOR AUTHOR'S ORGANIZ ATION 04/11/2024 [facility] DATE CREATED AUTHOR AUTHOR'S ORGANIZ ATION 05/12/2024 [facility] Care Teams (unrecognized sec tion and content) Team Status: Active Member Role Status Dates Jean Nicholson MD Primary Care Provider Active Team Status: Inactive Member Role Status Dates Jean Nicholson MD Primary Care Provider Active Bianka Garcia NP-C Attending Provider Active Warehouse Handler Relationship Specialty Start Date End Date Radames Witt MD [address] [facility] [place] [address] PCP - General 06/04/22 Team Status: Inactive Member Role Status Dates Jean Nicholson MD Primary Care Provider Active Danna Mcdaniel APRN [facility] Attending Provider Active Team Status: Inactive Member [...] Team Status: Active Member Role Status Dates Rdaames Witt MD Primary Care Provider Active Team Status: Inactive Member Role Status Dates Danna Mcdaniel APRN ACNP-BC Attending Provider Active Start: April 14, 2023 End: April 14, 2023 Radames Witt MD Primary Care Provider Active Start: April 14, 2023 End: April 14, 2023 Warehouse Handler Relationship Specialty Start Date End Date Radames Witt MD [address] [place] [address] PCP - General 06/04/22 Warehouse Handler Relationship Specialty Start Date End Date Radames Witt MD [address] [place] [address] PCP - General 06/04/22 Team Status: Inactive [...] End: November 17, 2023 Danna Mcdaniel APRN ACNP-BC Attending Provider Active Start: November 17, 2023 End: November 17, 2023 Warehouse Handler Relationship Specialty Start Date End Date Radames Witt MD [address] [facility] [place] [address] PCP - General 06/04/22 Warehouse Handler Relationship Specialty Start Date End Date Radames Witt MD [address] [facility] [place] [address] PCP - General 06/04/22 Goals (unrecognized section [...] BE BASED ON THE PRIMARY CLINICAL RECORDS. [employer] provides no warranty or guarantee of the accuracy or completeness of information in this document.
[2024-05-24 06:59] VITALS: BP 136/80; PULSE 66; TEMP 36.3; O2SAT 96
[2024-05-24] MEDS: 0.9 % SODIUM CHLORIDE 500 ML IV (07:06)
--- NOTE | 2024-05-24 08:24 | P.ON_ITS ---
Date of procedure: 05/24/24 Pre-op diagnosis: Pain due to lumbar spondylosis without myelopathy Post-op diagnosis: same as pre-op Procedure: Procedure: Bilateral L2-3, 3-4 radiofrequency ablation Medications: Bupivacaine 0.25% 6cc, lidocaine 2% 6cc, depomedrol 80mg The patient was seen and examined in the preoperative holding area.? The site was marked.? Written informed consent was obtained and placed on the chart.? The patient was brought to the medical procedure unit and placed in the prone position.? A timeout was completed verifying correct patient, procedure, positioning, and special requirements.? The skin overlying the target points, the designated medial branch, were prepped and draped in the usual sterile fashion.? The target point was achieved with a 20-gauge 15 cm with a 10 mm curved active tip radiofrequency cannula under direct fluoroscopic visualization .? The needle was inserted at level L2 on the right side. Needle tip position was confirmed with lateral fluoroscopic position.? Motor stimulation was carried out at 2 Hz up to 5 volts with the absence of extremity activity.? This was repeated at level L3, 4 on right side.?? Sensory stimulation was carried out.? Concordant pain was realized at the above- mentioned sites.? Then radiofrequency lesioning was carried out times 90 seconds at 80 degrees times 2 lesions at each level.? The radiofrequency probe was removed prior to cannula removal.? The above-mentioned injectate was placed in 1 mL increments.? The needle was removed. The same procedure, with the same steps, was then completed on the left side at the same levels. Insertion sites were covered.? The patient was taken to the postoperative recovery area and monitored for an appropriate length of time before being found suitable for discharge in the company of a responsible adult. Anesthesia: MAC Surgeon: Maribell Leigh Pathology: none sent Condition: stable Disposition: no change
[2024-05-24] MEDS: BUPIVACAINE HCL 0.25% PF 25 MG/10 ML VIAL 4 ML INJ (08:25)
[2024-05-24] MEDS: LIDOCAINE HCL 2% 400 MG/20 ML MDV 9 ML INJ (08:25)
[2024-05-24] MEDS: METHYLPREDNISOLONE ACETATE 40 MG/ML VIAL 80 MG INJ (08:25)
[2024-05-24 08:28] VITALS: BP 129/78; PULSE 59; TEMP 36.6; O2SAT 97
[2024-05-24 08:29] VITALS: BP 127/74; PULSE 55; TEMP 36.6; O2SAT 97
== END 2024-05-24 08:52 | disposition home or self-care (01) ==
LOC: SURGOUT 06:46
PROVIDERS: PCP Family Medicine; Visit Provider Anesthesiology
DX: M47.816 Spondylosis without myelopathy or radiculopathy, lumbar region (principal); M54.50 Low back pain, unspecified
CPT/HCPCS: 64635; 64636; J0665; J1010; J2704

== ENCOUNTER 2024-06-16 12:37 | Outpatient (OUT) | payer MEDICARE, SELFPAY ==
--- NOTE | 2024-06-16 13:08 | PM.CN ---
Consult Note: HPI Data of Consult Patient: known to practice within the last 3 years Requesting Physician: Mercedes Massey NP Primary Care Provider: Radames Ricks MD Consult Narrative Reason for consult: back pain Narrative: 68yom who presents for assessment. worsening low back pain. imaging reviewed, which shows multilevel degenerative changes and stenosis, as well as fusion from l4-s1. has continued in provider directed home exercise program >6 weeks, with minimal benefit. uses percocet 5-325mg BID PRN, nortriptyline 25mg hs, celebrex and baclofen as needed. denies adverse med side effects. low back pain right >left side 10 increasing with standing, walking. CANDACE 22% with moderate to severe pain impacting ADLs, ability to sit, ability to stand, sleep, social life, and travel. on 05/24/24 pt underwent bilateral L2/3 L3/4 RFA with mild ongoing relief, however this was less than 4 weeks ago. cc:: CC: Mercedes Massey NP Review of Systems ROS Status of ROS 10 or more systems reviewed and unremarkable except as noted in history and below Musculoskeletal Reports: back pain PFSH PFSH Medical History Fixation hardware in spine ?Z96.7 - Presence of other bone and tendon implants (ICD-10) Fusion of lumbar spine ?M43.26 - Fusion of spine, lumbar region (ICD-10) Pulmonary embolism ?I26.99 - Other pulmonary embolism without acute cor pulmonale (ICD-10) Generalized weakness ?R53.1 - Weakness (ICD-10) Meds Home Medications and Allergies Home Medications ?Medication ?Instructions ?Recorded ?Confirmed ?Type acetaminophen 325 mg tablet 325 mg PO Q6H PRN pain 09/06/22 05/24/24 History (Tylenol) albuterol sulfate 90 mcg/actuation 2 puff inhalation Q4H PRN 09/06/22 05/24/24 History aerosol inhaler shortness of breath or wheezing apixaban 5 mg tablet (Eliquis) 5 mg PO Q12H 09/06/22 05/24/24 History atorvastatin 40 mg tablet 40 mg PO QDAY 09/06/22 05/24/24 History baclofen 10 mg tablet 10 mg PO QDAY 09/06/22 05/24/24 History furosemide 20 mg tablet 20 mg PO QDAY 09/06/22 05/24/24 History lisinopril 20 mg tablet 20 mg PO QDAY 09/06/22 05/24/24 History metoprolol tartrate 25 mg tablet 25 mg PO Q12H 09/06/22 05/24/24 History omeprazole 40 mg capsule,delayed 40 mg PO QDAY 09/06/22 05/24/24 History release oxybutynin chloride 10 mg 10 mg PO QDAY 09/06/22 05/24/24 History tablet,extended release 24 hr potassium chloride 10 mEq 10 meq PO QDAY 09/06/22 05/24/24 History tablet,extended release docusate sodium 100 mg capsule 100 mg PO BID 11/08/22 05/24/24 History nortriptyline 25 mg capsule 25 mg PO DAILY #30 caps 04/07/24 05/24/24 Rx oxycodone-acetaminophen 5 mg-325 1 tab PO BID PRN pain #60 tabs 05/03/24 05/24/24 Rx mg tablet (Percocet) oxycodone-acetaminophen 5 mg-325 1 tab PO BID PRN pain #60 tabs 05/27/24 Rx mg tablet (Percocet) nortriptyline 25 mg capsule 25 mg PO DAILY #30 caps 06/16/24 Rx Allergies Allergy/AdvReac Type Severity Reaction Status Date / Time No Known Drug Allergies Allergy Verified 05/24/24 07:04 Exam Constitutional Documenting provider has reviewed patient's vital signs: yes Common normals: no apparent distress, oriented x3, healthy appearing, alert and well nourished General appearance: cooperative [facility] Common normals: normocephalic, hearing grossly normal bilaterally and moist oral mucous membranes Head and scalp: normocephalic Eye Common normals: PERRL Pupil: PERRL Neck & C-Spine Common normals: full ROM General: normal visual inspection Chest Common normals: inspection of chest normal Respiratory Common normals: normal respiratory effort, no retractions and no use of accessory muscles Back & Pelvis Lumbar spine/lower back: lumbar ROM normal, pain with ROM and straight leg raise negative bilaterally; no lumbar spinal tenderness Other: sensation intact BLE strength 5/5 in BLE facet loading positive right > left Extremity Common normals: normal to inspection and full ROM Neuro Common normals: oriented x3, CN's II-XII intact bilaterally, moves all extremities, no focal motor deficits, no sensory deficits noted and deep tendon reflexes 2+ bilaterally Sensorium/orientation: alert Motor exam: strength 5/5 throughout and no movement abnormalities noted Psych Common normals: mental status grossly normal, thought process normal, cooperative, affect normal, speech normal and activity/motor behavior normal Speech: normal speech Thought process: normal thought process Results Additional Findings Additional findings: If on a controlled substance or opioids, I have checked an [place]AR[place] report on this patient and there are no aberrancies noted in the prescribing history.??If on a controlled substance or opioid a drug screen was completed and reviewed within the last year, and if there has not been a drug screen completed we ordered one today to monitor higher risk, state monitored pain medication use. As part of providing excellent, safe, comprehensive care, the following was completed at our patient's visit: 1. A medication reconciliation and review to ensure accurate knowledge of current/active medications, including asking our patients to inform us about any [id number] medications or herbal remedies/nutritional supplements/alternative remedies. 2. A review to specifically ensure our patients have had annual screening for screening for depression, screening for tobacco use, and screening for unhealthy alcohol use. For concerning screenings had a discussion with the patient, provided patient education, and recommended follow-up with primary care provider when appropriate. If patient noted with a risk of falling, they received education on strength, gait, and balance training to prevent future risk of falling. Portions of this note may have been carried over from the previous visit and updated as appropriate. Please note this office utilizes paper charting in addition to the electronic medical record. A list of current medications, vitals, and PMH is available there as the clinical staff outside of myself do not have access to [facility] charting during the clinic day operations. As part of providing quality comprehensive care the current medications, vitals, and PMH were reviewed in the paper chart. Assessment and Plan Assessment and Plan (1) Lumbar spondylosis: Assessment and Plan: The patient has had over 3 months of moderate to severe low back pain with functional impairment and inadequate response to conservative care including NSAIDS (unless there are contraindication such as concurrent blood thinners), multiple oral or topical pain medications, and home exercise program/physical therapy.? Patient has completed >6 weeks of guided home exercise program and/or formal physical therapy program without relief of their symptoms.? (2) Chronic use of opiate for therapeutic purpose: (3) Failed back syndrome: (4) Lumbar stenosis with neurogenic claudication: Assessment and Plan: >50% improvement from prior caudal BRIAN ongoing (5) Encounter for long-term use of opiate analgesic: Assessment and Plan: I feel these medications are improving the patient's quality of life and allow them to tolerate activities of daily living as well as participate in recreational activity.? The patient does not report intolerable side effects. The patient is NOT opioid naive and non-pharmacologic and non-opioid treatment has failed to significantly relieve the patient's pain and improve functionality. The patient has a diagnosis that is related to a somatic or visceral pain etiology. ? ?? I reviewed with the patient the potential risks and side effects with the use of? opioid medications including but not limited to respiratory depression,? sedation, and even . Within the last 12 months I have verified the patient has access to naloxone should? these effects occur. The patient was advised to let? their family know they had Naloxone in case they would need to administer? the medication. I advised the patient to avoid the use of any other? sedation substances including alcohol, THC, and benzodiazepines while? taking opioid medications due to the risk of compounding side effects and? detrimental outcomes. within the last 12 months I have reviewed the DIABETES TRAINER, pain treatment agreement and urine drug screen.? ?? A drug screen was completed within the last year, and no aberrancies were noted regarding their use of controlled substances. The patient understands they are subject to the terms and conditions of the pain contract that they have signed. ? ?? I have checked an [place]AR[place] report on this patient today and there are no aberrancies noted in the prescribing history.? Plan bilateral L2,3 L3,4 facet medial branch RFA remains in the healing phase continue HEP as tolerated continue current medications f/u 1 month, consider scs if pt fails to benefit from RFA
== END 2024-06-16 12:38 | disposition home or self-care (01) ==
PROVIDERS: PCP Family Medicine; Visit Provider Nurse Practitioner
DX: M47.816 Spondylosis without myelopathy or radiculopathy, lumbar region (principal); Z79.891 Long term (current) use of opiate analgesic; M96.1 Postlaminectomy syndrome, not elsewhere classified; M48.062 Spinal stenosis, lumbar region with neurogenic claudication
CPT/HCPCS: G0463

== ENCOUNTER 2024-07-29 10:33 | Outpatient (OUT) | payer MEDICARE, SELFPAY ==
--- NOTE | 2024-07-29 10:48 | PM.CN ---
Consult Note: HPI Data of Consult Patient: known to practice within the last 3 years Requesting Physician: Mercedes Massey NP Primary Care Provider: Radames Ricks MD Consult Narrative Reason for consult: back pain Narrative: 68yom who presents for assessment. worsening low back pain. imaging reviewed, which shows multilevel degenerative changes and stenosis, as well as fusion from l4-s1. has continued in provider directed home exercise program >6 weeks, with minimal benefit. uses percocet 5-325mg BID PRN, nortriptyline 25mg hs, celebrex and baclofen as needed. denies adverse med side effects. low back pain right >left side 210 increasing with standing, walking. CANDACE 18% with moderate to severe pain impacting ADLs, ability to sit, ability to stand, sleep, social life, and travel. on 05/24/24 pt underwent bilateral L2/3 L3/4 RFA with >50% improvement ongoing in pain and functional ability. cc:: CC: Mercedes Massey NP Review of Systems ROS Status of ROS 10 or more systems reviewed and unremarkable except as noted in history and below Musculoskeletal Reports: back pain PFSH PFSH Medical History Fixation hardware in spine ?Z96.7 - Presence of other bone and tendon implants (ICD-10) Fusion of lumbar spine ?M43.26 - Fusion of spine, lumbar region (ICD-10) Pulmonary embolism ?I26.99 - Other pulmonary embolism without acute cor pulmonale (ICD-10) Generalized weakness ?R53.1 - Weakness (ICD-10) Meds Home Medications and Allergies Home Medications ?Medication ?Instructions ?Recorded ?Confirmed ?Type acetaminophen 325 mg tablet 325 mg PO Q6H PRN pain 09/06/22 05/24/24 History (Tylenol) albuterol sulfate 90 mcg/actuation 2 puff inhalation Q4H PRN 09/06/22 05/24/24 History aerosol inhaler shortness of breath or wheezing apixaban 5 mg tablet (Eliquis) 5 mg PO Q12H 09/06/22 05/24/24 History atorvastatin 40 mg tablet 40 mg PO QDAY 09/06/22 05/24/24 History baclofen 10 mg tablet 10 mg PO QDAY 09/06/22 05/24/24 History furosemide 20 mg tablet 20 mg PO QDAY 09/06/22 05/24/24 History lisinopril 20 mg tablet 20 mg PO QDAY 09/06/22 05/24/24 History metoprolol tartrate 25 mg tablet 25 mg PO Q12H 09/06/22 05/24/24 History omeprazole 40 mg capsule,delayed 40 mg PO QDAY 09/06/22 05/24/24 History release oxybutynin chloride 10 mg 10 mg PO QDAY 09/06/22 05/24/24 History tablet,extended release 24 hr potassium chloride 10 mEq 10 meq PO QDAY 09/06/22 05/24/24 History tablet,extended release docusate sodium 100 mg capsule 100 mg PO BID 11/08/22 05/24/24 History nortriptyline 25 mg capsule 25 mg PO DAILY #30 caps 04/07/24 05/24/24 Rx oxycodone-acetaminophen 5 mg-325 1 tab PO BID PRN pain #60 tabs 05/03/24 05/24/24 Rx mg tablet (Percocet) oxycodone-acetaminophen 5 mg-325 1 tab PO BID PRN pain #60 tabs 05/27/24 Rx mg tablet (Percocet) nortriptyline 25 mg capsule 25 mg PO DAILY #30 caps 06/16/24 Rx oxycodone-acetaminophen 5 mg-325 1 tab PO BID PRN pain #60 tabs 07/06/24 Rx mg tablet (Percocet) Allergies Allergy/AdvReac Type Severity Reaction Status Date / Time No Known Drug Allergies Allergy Verified 05/24/24 07:04 Exam Constitutional Documenting provider has reviewed patient's vital signs: yes Common normals: no apparent distress, oriented x3, healthy appearing, alert and well nourished General appearance: cooperative [facility] Common normals: normocephalic, hearing grossly normal bilaterally and moist oral mucous membranes Head and scalp: normocephalic Eye Common normals: PERRL Pupil: PERRL Neck & C-Spine Common normals: full ROM General: normal visual inspection Chest Common normals: inspection of chest normal Respiratory Common normals: normal respiratory effort, no retractions and no use of accessory muscles Back & Pelvis Lumbar spine/lower back: lumbar ROM normal and straight leg raise negative bilaterally; no pain with ROM and no lumbar spinal tenderness Other: sensation intact BLE strength 5/5 in BLE facet loading negative Extremity Common normals: normal to inspection and full ROM Neuro Common normals: oriented x3, CN's II-XII intact bilaterally, moves all extremities, no focal motor deficits, no sensory deficits noted and deep tendon reflexes 2+ bilaterally Sensorium/orientation: alert Motor exam: strength 5/5 throughout and no movement abnormalities noted Psych Common normals: mental status grossly normal, thought process normal, cooperative, affect normal, speech normal and activity/motor behavior normal Speech: normal speech Thought process: normal thought process Results Additional Findings Additional findings: If on a controlled substance or opioids, I have checked an [place] report on this patient and there are no aberrancies noted in the prescribing history.??If on a controlled substance or opioid a drug screen was completed and reviewed within the last year, and if there has not been a drug screen completed we ordered one today to monitor higher risk, state monitored pain medication use. As part of providing excellent, safe, comprehensive care, the following was completed at our patient's visit: 1. A medication reconciliation and review to ensure accurate knowledge of current/active medications, including asking our patients to inform us about any [id number] medications or herbal remedies/nutritional supplements/alternative remedies. 2. A review to specifically ensure our patients have had annual screening for screening for depression, screening for tobacco use, and screening for unhealthy alcohol use. For concerning screenings had a discussion with the patient, provided patient education, and recommended follow-up with primary care provider when appropriate. If patient noted with a risk of falling, they received education on strength, gait, and balance training to prevent future risk of falling. Portions of this note may have been carried over from the previous visit and updated as appropriate. Please note this office utilizes paper charting in addition to the electronic medical record. A list of current medications, vitals, and PMH is available there as the clinical staff outside of myself do not have access to [employer] charting during the clinic day operations. As part of providing quality comprehensive care the current medications, vitals, and PMH were reviewed in the paper chart. Assessment and Plan Assessment and Plan (1) Lumbar spondylosis: (2) Chronic use of opiate for therapeutic purpose: (3) Failed back syndrome: (4) Lumbar stenosis with neurogenic claudication: Assessment and Plan: >50% improvement from prior caudal BRIAN ongoing (5) Encounter for long-term use of opiate analgesic: Assessment and Plan: I feel these medications are improving the patient's quality of life and allow them to tolerate activities of daily living as well as participate in recreational activity.? The patient does not report intolerable side effects. The patient is NOT opioid naive and non-pharmacologic and non-opioid treatment has failed to significantly relieve the patient's pain and improve functionality. The patient has a diagnosis that is related to a somatic or visceral pain etiology. ? ?? I reviewed with the patient the potential risks and side effects with the use of? opioid medications including but not limited to respiratory depression,? sedation, and even . Within the last 12 months I have verified the patient has access to naloxone should? these effects occur. The patient was advised to let? their family know they had Naloxone in case they would need to administer? the medication. I advised the patient to avoid the use of any other? sedation substances including alcohol, THC, and benzodiazepines while? taking opioid medications due to the risk of compounding side effects and? detrimental outcomes. within the last 12 months I have reviewed the [employer], pain treatment agreement and urine drug screen.? ?? A drug screen was completed within the last year, and no aberrancies were noted regarding their use of controlled substances. The patient understands they are subject to the terms and conditions of the pain contract that they have signed. ? ?? I have checked an [place]AR[place] report on this patient today and there are no aberrancies noted in the prescribing history.? Plan bilateral L2,3 L3,4 facet medial branch RFA providing >50% improvement in pain and functional ability at this time decrease percocet 5-325mg once daily as needed for moderate to severe pain, encouraged tylenol heat and rest prior to utilizing opioids. may consider decreasing to hydrocodone in the future. pt advised to call if he has increased pain or decline in functional ability continue HEP as tolerated continue nortriptyline 25mg daily f/u 3 months, sooner if needed
== END 2024-07-29 10:34 | disposition home or self-care (01) ==
PROVIDERS: PCP Family Medicine; Visit Provider Nurse Practitioner
DX: M47.816 Spondylosis without myelopathy or radiculopathy, lumbar region (principal); Z79.891 Long term (current) use of opiate analgesic; M96.1 Postlaminectomy syndrome, not elsewhere classified; M48.062 Spinal stenosis, lumbar region with neurogenic claudication
CPT/HCPCS: G0463

== ENCOUNTER 2024-10-28 10:07 | Outpatient (OUT) | payer MEDICARE, SELFPAY ==
--- OUTSIDE RECORDS SUMMARY | 2024-10-28 10:13 | XMS_ITS | CCD ---
Author Organization [facility] Care Team Providers Care Supervisor Public Message Service Name Role Phone Jean Nicholson Unavailable Unavailable [...] Unavailable JUAN, KATHERINE Primary Care Unavailable JUAN, KTAHERINE Attending Unavailable JUAN, KATHERINE Admitting Unavailable JUAN, [...] Go, Dr. Cecilio Harman Referring Aracely vailable Go, Dr. Cecilio Harman Attending Aracely vailable Millicent, Dr. Carmen Fabian Primary Care Unavail able Go, Dr. Cecilio Harman Referring Aracely vailable Go, Dr. Cecilio Harman Attending Aracely vailable Carmen Witt Unavailable Curtis Meléndez Unavailable Cayden Flores Unavailable Unavailable Cecilio Go Unavailable Dr. Carmen Witt Primary Care Unavail able Ángela, Dr. [...] Unavail able Carmen Witt Primary Care Physician Carmen Witt MD Primary Care Provider [phone] MD Jean Nicholson Primary Care Provider Violeta, SECONDS HANDLER Danna Attending Provider MD Carmen Witt Primary Care Provider [phone] MD Carmen Witt Primary Care Provider [phone] EDEL Garcia Attending Provider Bianka Garcia Attending Unavailable Bianka Garcia Admitting Unavailable Carmen Witt Primary Care Unavailable Violeta, Danna Attending Unavailable Violeta, Danna Admitting Unavailable Carmen Witt Primary Care Unavailable Violeta, Danna Admitting Unavailable Jean Nicholson Primary Care Unavailable Violeta, Danna Attending Unavailable Marino SPEAR Attending Unavailable Marino SPEAR Attending Unavailable ALAN HURST Attending Unavailable Marino SPEAR Admitting Unavailable Marino SPEAR Attending Unavailable ALAN HURST Attending Unavailable ALAN HURST Attending Unavailable Reese JIMENEZ, Maribell Boland Attending Unavailable Reese JIMENEZ, Andregla Boland Attending Unavailable Reese JIMENEZ, Andrius Boland Attending Unavailable Reese JIMENEZ, Rafaelrius Boland Attending Unavailable Carmen Witt MD Primary Care Provider CURTIS MELÉNDEZ Attending Unavailable CECILIO GO Referring Unavailable CARMEN WITT Primary Care Unavailable CURTIS MELÉNDEZ Referring Unavailable CARMEN WITT Primary Care Unavailable CECILIO GO Referring Unavailable CARMEN WITT Primary Care Unavailable CECILIO GO Attending Unavailable CECILIO GO Referring Unavailable CARMEN WITT Primary Care Unavailable CECILIO GO Attending Unavailable CECILIO GO Referring Unavailable CARMEN WITT Primary Care Unavailable Allergies Allergy Classification Reported Allergen(s) Allergy Type Date of Onset Reaction(s) Facility Nitrate Vasodilator (1 source) Nitroglycerin Drug Allergy 4 Unresponsive [facility] (20 sources) Nitroglycerin; Translations: [nitroglycerin] Drug Allergy 2 Other [facility] (9 sources) Nitroglycerin Drug Allergy Unknown [employer] Other (1 source) Aminolevulinic Acid Drug Allergy [facility] Repository (2 sources) Nitroglycerin Drug Allergy 2 [facility] Repository Medications Current Medications Medication Drug [...] tablet (20 sources) Factor Xa Inhibitor Start: 02-02-2024 End: 02-01-2025 take 1 tablet by mouth twice daily apixaban (Eliquis) 5 mg tablet Indications: Abdominal aortic aneurysm (AAA) without rupture, unspecified part , Pulmonary embolism, unspecified chronicity, unspecified pulmonary embolism type, unspecified whether acute cor pulmonale present (Multi) Take 1 tablet (5 mg) by mouth 2 times a day. 180 tablet 3 02/02/2024 02/01/2025 Active Start: 04-09-2023 take 1 mg by mouth e very twelve hours Apixaban (Eliquis) 5 mg tablet [...] oral capsule (5 sources) Start: 11-07-2022 End: 09-13-2024 take 1 capsule by mouth twice daily docusate sodium (Colace) 100 mg capsule TAKE 1 CAPSULE BY MOUTH TWO TIMES A DAY FOR 30 DAYS 60 capsule 11/07/2022 11/07/2023 Active Comment on above: Medication should be taken with plenty o f water. furosemide 20 mg oral tablet (20 sources) Loop Diuretic Start: 12-18-2020 End: 02-01-2025 take 1 tablet by mouth once daily before mealtime furosemide (Lasix) 20 mg tablet Indications: Essential hypertension Take 1 tablet (20 mg) by mouth once daily in the morning. Take before meals. 90 tablet 3 02/02/2024 02/01/2025 Active lisinopril 20 mg oral tablet (20 [...] (20 sources) beta-Adrenergic Sushant Start: 02-06-2021 End: 02-01-2025 take 1 tablet by mouth twice daily metoprolol tartrate (Lopressor) 25 mg tablet Indications: Sinus tachycardia , Essential hypertension Take 1 tablet (25 mg) by mouth 2 times a day. 180 tablet 3 02/02/2024 02/01/2025 Active take 1 tablet by siobhan th [...] capsule (20 sources) Tricyclic Antidepressant Start: 01-30-20 21 take 1 capsule by mouth once daily at bedtime nortriptyline (Pamelor) 25 mg capsule Take 1 capsule (25 mg) by mouth once daily at bedtime. 01/29/2021 Active omeprazole 40 mg delayed release oral capsule (20 sources) Proton Pump Inhibitor Start: 01-12-20 21 take 1 capsule by mouth once daily [...] (20 sources) Cholinergic Muscarinic Antagonist Start: 12-18-2020 End: 03-24-2025 take 1 tablet by mouth once daily oxybutynin XL (Ditropan-XL) 10 mg 24 hr tablet Take 1 tablet (10 mg) by mouth once daily. 12/18/2020 Active potassium chloride 10 meq extended release oral tablet (20 sources) Start: 04-01-2024 End: 04-01-2025 take 1 tablet by mouth once daily potassium chloride CR 10 mEq ER tablet Indications: Other snf (current) drug therapy Take 1 tablet (10 mEq) by mouth once daily. 90 tablet 3 04/01/2024 04/01/2025 Active Start: 12-18-2020 take 1 tablet by siobhan th twice daily potassium chloride 10 mEq ER Tab mEq tab(s), Oral, BID, Refills(s) 0 Start Date: 12/18/20 Status: Ordered Start: 10-24-2020 take 1 tablet by siobhan th once daily potassium chloride CR 10 mEq ER tablet Indications: Other moth exterminator (current) drug therapy TAKE 1 TABLET BY MOUTH EVERY DAY 90 tablet 3 04/11/2023 Active sildenafil 50 mg oral tablet (1 source) Phosphodiesterase 5 Inhibitor Start: 03-29-2024 Viagra 50 mg Tab See Instructions, 1-2 tabs po 1 hr before sexual activity. Do not exceed 2 tabs/100mg in 24 hrs., # 20 tab(s), Refills(s) 2, Pharmacy: [facility]/pharmacy #[id number], 175, cm, 03/29/24 12:01:00 EST, Height/Length [...] disease (1 source) Atherosclerotic heart disease of [place] coronary artery without angina pectoris; Translations: [AS[place] W/O ANGINA PECTORIS] Onset: 07-17-2021 Chronic [...] other medications] Episodic Other aftercare (2 sources) moth exterminator (current) use of anticoagulants; Translations: [INDUSTRIAL SALES ENGINEER CURRNT USE ANTICOAGULANTS] Onset: 11-29-2021 Episodic Other aftercare (1 source) Taking high risk medication; Translations: [Other snf (current) drug therapy] 08-20-2024 Episodic Other and ill-defined heart disease (13 sources) Diastolic dysfunction; Translations: [Other ill-defined heart diseases] 04-08-2023 Chronic Other and ill-defined heart disease (7 sources) Other ill-defined heart diseases; Translations: [Heart disease, unspecified] Onset: 08-21-2021 Resolved: 08-21-2021 Chronic Other connective tissue disease (1 source) [...] nutritional; endocrine; and metabolic disorders (2 sources) Obesity caused by energy imbalance; Translations: [Class [...] Ex-smoker; Translations: [Personal history of tobacco use] Onset: 08-20-2024 07-26-2019 Episodic Spondylosis; intervertebral disc disorders; other back problems (17 sources) Spondylosis without myelopathy or radiculopathy, lumbar [...] Unclassified (1 source) Primary hypertension 11-04-2022 Unclassified (3 sources) Abdominal aortic aneurysm, without rupture, unspecified; Translations: [Abdominal aortic aneurysm, without rupture, unspecified] Onset: 07-31-2022 Unclassified (1 source) Interstitial pulmonary disease, unspecified; Translations: [Interstitial pulmonary disease, unspecified] Onset: 03-04-2023 Unclassified (2 sources) Infrarenal abdominal aortic aneurysm, without rupture; Translations: [Infrarenal abdominal aortic aneurysm, without rupture] Onset: 11-07-2022 Unclassified (1 source) Low back pain, unspecified; Translations: [Low back pain, unspecified] Onset: 11-11-2023 Unclassified (1 source) Abdominal aortic aneurysm, without [...] 07-14-2021 Episodic Other aftercare (1 source) Other moth exterminator (current) drug therapy; Translations: [OTH PENITENTIARY CURRENT DRUG THERAPY] Onset: 07-17-2021 Episodic Other circulatory disease (20 sources) Respiratory crackles; Translations: [Abnormal chest sounds] Onset: 11-07-2022 11-07-2022 Episodic Other circulatory disease (2 sources) Other [...] (AAA) without rupture, unspecified part I71.40 Unclassified (9 sources) Onset: 12-09-2022 Resolved: 08-20-2024 12-09-2022 Unclassified (2 sources) Abdominal aortic aneurysm, without rupture, unspecified; Translations: [Abdominal aortic aneurysm, without rupture, unspecified] Onset: 08-20-2024 Unclassified (2 sources) Infrarenal abdominal aortic aneurysm, without rupture; Translations: [Infrarenal abdominal aortic aneurysm, without rupture] Onset: 08-20-2024 Unclassified (1 source) Abdominal aortic aneurysm, without rupture, unspecified (CMS-HCC); Translations: [Abdominal aortic aneurysm, without rupture, unspecified (CMS-HCC)] Onset: 01-08-2024 Unclassified (1 source) Obesity, class 1; Translations: [Obesity, class 1] Onset: 01-08-2024 Results Test Name Value Interpretation Reference Range Facility VAS US AORTA ILIAC DUPLEX C OMPLETEon 10-07-2024 [facility] US AORTA ILIAC DUPLEX COMPLETE [address], [place] [address] Vascular Lab Report [facility] US AORTA ILIAC DUPLEX COMPLETE Patient Name: ERIK WOODSQuiros Physician: [id number] Go MD, [facility] Study Date: 10/07/2024 Ordering Provider: [id number] GO MRN/PID: [id number] Fellow: Technologist: Karol Hull RD, [facility] Date of /Age: 8 1955 / 68 years Technologist 2: Gender: M Admission Status: Outpatient Location Performed: [facility] Diagnosis/ICD: Abdominal aortic aneurysm, without rupture, unspecified-I71.40; Infrarenal abdominal aortic aneurysm, without rupture-I71.43 Indication: History of PE, CKD-Stage III, Obesity, Pulmonary Fibrosis, HTN, Hyperlipidemia, Former Smoker CPT Codes: 92239 Duplex Aorta/IVC/Iliac/Bypass Graft CONCLUSIONS: Aorta/Common Iliac Arteries/IVC: Small infrarenal abdominal aortic aneurysm measuring 3.16 x 3.24 cm AP/transverse diameter respectively, it measures 5.68 cm in length with no thrombus, when compared to history from 07/31/2022, no significant interval changes were seen. Imaging & Doppler Findings: AORTA AP Lateral PSV Proximal 2.58 cm 2.53 cm 43.5 cm/s Mid 1.72 cm 2.78 cm 34.6 cm/s Distal 3.16 cm 3.24 cm 33.2 cm/s RIGHT AP Lateral PSV KARMA Proximal 0.60 cm 0.79 cm 25.00 cm/s LEFT AP Lateral PSV KARMA Proximal 1.23 cm 1.45 cm 36.00 cm/s [id number] Cecilio Go MD, FACC Final [facility] Urology Office/Clinic Noteon 03-29-2024 Urology Office/Clinic Note [...] E&M of Est. Patient Moderate 30-39 Min 68683 Urnls Dip Stick Auto w/o Microscopy POC 79214 2. H/O prostate cancer (Z85.46: Personal history of malignant neoplasm of prostate) Sp prostatectomy Feb 2016 by PRW. pre-op PSA around 3 (6 on Finasteride). [place] 3+4=7, 5% of one lobe. Neg SV, Neg margins, Neg nodes x 8. PSA 07/22/19 - <0.05 04/26/20 - <0.05 10/05/20 - <0.05 12/20/21 - <0.13 12/21/22 - <0.13 03/22/24 - <0.1 PSA low and stable. Check in 1 yr. Ordered: E&M of Est. Patient Moderate 30-39 Min 41557 PSA Total 3. ED (erectile dysfunction) (N52.9: [...] yr. Pt told me no hx heart issues/FL. Has nitro on allergy list, so we know he's not on this. However after he left I reviewed his chart and problem list says he DOES have hx FL. Will contact pharmacy and cancel sildenafil rx for now. Staff to clarify cardiac hx w pt. If sees chicken and fish cleaner, we will need to get clearance from them that his heart is healthy enough for sex/ED med. If no chicken and fish cleaner, will need clearance from PCP. Orders: oxybutynin, 10 mg = 1 tab(s), Oral, Daily, X 90 day(s), # 90 tab(s), Refills(s) 3, Pharmacy: [facility]/pharmacy #[id number], 175, cm, 03/29/24 12:01:00 EST, Height/Length Dosing, 87.6, kg, 03/29/24 12:01:00 EST, Weight Dosing sildenafil, See Instructions, 1-2 tabs po 1 hr before sexual activity. Do not exceed 2 tabs/100mg in 24 hrs., # 20 tab(s), Refills(s) 2, Pharmacy: [facility]/pharmacy #[id number], 175, cm, 03/29/24 12:01:00 EST, Height/Length Dosing, 87.6, kg, 03/29/24 12:01:00 EST, Weight Do... Follow-up With When Contact Information NATALI LEON, ALAN Abraham, URL In 1 year [address] [place] [address] Additional Instructions: Patient Education Erectile [...] omeprazole, O (more content not included)... Normal [facility] Comment on above: Result Comment: Elec tronically Signed By: ALAN HURST PA-C\.jarred\Date and Time Signed: 03/29/24 12:28 EST PSA Totalon 03-23-2024 Prostate specific Ag [Mass/Vol] ng/mL Low 0.1-3.5 [facility] Comment on above: Result Comment: The concentration of PSA determined by different manufacturers can vary due to differences in assay methods and reagent specificity. Values obtained from different assay methods cannot be used interchangeably. The methodology used for this result was chemiluminescence using [employer]'s Access Hybritech PSA reagent. Performed By: #### 1 [id number] #### [facility] [address] [place] [address] Provider Letteron 03-03-2024 Provider Letter Provider Letter March 03, 2024 ERIK MORALES [address] [place] [phone] : 1955 Dear Erik Morales, We have been trying to reach you with no success. It is important that you return our call regarding a follow up appointment upon receiving this letter. Also, at the time of your call, please provide us with your current information. Thank you for your prompt attention to this matter. Sincerely, [facility] [place] [address] Normal [facility] XR LUMBAR SPINE 2-3 VIEWSon 11-11-2023 XR LUMBAR SPINE 2-3 VIEWS Interpreted By: Curtis Meléndez, STUDY: XR LUMBAR SPINE 2-3 VIEWS; 11/11/2023 8:52 am INDICATION: Signs/Symptoms:pain. ACCESSION NUMBER(S): [id number] ORDERING CLINICIAN: CURTIS MELÉNDEZ FINDINGS: AP lateral [...] Curtis Meléndez 11/11/2023 9:36 AM Dictation workstation: [id number] [facility] XR Lumbar spine 2 or 3 Views on 11-11-2023 Interpreted By: Curtis Love, STUDY: XR LUMBAR SPINE 2-3 VIEWS; 11/11/2023 8:52 am INDICATION: Signs/Symptoms:pain. ACCESSION NUMBER(S): [id number] ORDERING CLINICIAN: CURTIS MELÉNDEZ FINDINGS: AP lateral [...] Curtis Meléndez 11/11/2023 9:36 AM Dictation workstation: [id number] Curtis Meléndez MD - 11/11/2023 Interpreted By: Curtis Meléndez, STUDY: XR LUMBAR SPINE 2-3 VIEWS; 11/11/2023 8:52 am INDICATION: Signs/Symptoms:pain. ACCESSION NUMBER(S): [id number] ORDERING CLINICIAN: CURTIS MELÉNDEZ FINDINGS: AP lateral [...] Curtis Meléndez 11/11/2023 9:36 AM Dictation workstation: [id number] [facility] Work Phone: Radiology Study observation (narrative) [facility] Work Phone: XR Lumbar spine 2 or 3 Views Ordered By: Curtis Meléndez on 11-11-2023 [facility] Work Phone: US aortaon 08-21-2023 US aorta [facility] [address] [place] [address] Ultrasound Report Signed Patient: Erik Morales MR#: [id number] : 1955 Acct:[id number] Age/Sex: 67 / M ADM Date: 08/21/23 Loc: [facility] Room: Type: [facility] Attending Dr: Bianka Garcia BAGGAGE INSPECTOR-C Ordering Provider: Bianka Garcia APRN Date of [...] 08/21/23 1419 Signed By: 08/21/23 1421 Normal [facility] XR Lumbar spine 2 or 3 Views on 06-03-2023 Interpreted By: Curtis Love, STUDY: XR LUMBAR SPINE 2-3 VIEWS; 06/03/2023 1:42 pm INDICATION: Signs/Symptoms:pain. ACCESSION NUMBER(S): [id number] ORDERING CLINICIAN: CURTIS MELÉNDEZ FINDINGS: AP lateral [...] Curtis Meléndez 06/03/2023 1:56 PM Dictation workstation: [id number] Curtis Wise MD - 06/03/2023 Interpreted By: Curtis Meléndez, STUDY: XR LUMBAR SPINE 2-3 VIEWS; 06/03/2023 1:42 pm INDICATION: Signs/Symptoms:pain. ACCESSION NUMBER(S): [id number] ORDERING CLINICIAN: CURTIS MELÉNDEZ FINDINGS: AP lateral [...] Curtis Meléndez 06/03/2023 1:56 PM Dictation workstation: [id number] [facility] Work Phone: [facility] Work Phone: Radiology Study observation (narrative) [facility] Work Phone: CT chest wo con high reson 0 04-15-2023 CT chest wo con high res [facility] [address] [place] [address] CT Scan Report Signed Patient: Erik Morales MR#: [id number] : 1955 Acct:[id number] Age/Sex: 67 / M ADM Date: 04/14/23 Loc: CT Room: Type: [facility] Attending Dr: ISATU Gomez [...] Christopher Cline M.D.04/15/2023 9:21 AM Dictation Location: [place] [address] Transcribed By: LUIS 04/15/23920 Dictated By: Christopher Cline DO 04/15/2304 Signed By: 04/15/23920 Normal [facility] Post Op (Orthopaedic Surgery )on 11-19-2022 Post Op (Orthopaedic Surgery) Orders Back pain Xray BN Spine, Lumbosacral; 2 or 3 Views; Status:Complete; Done: [id number] 02:21PM Radiologist to Determine Optimal Study : [...] Xray BN Spine, Lumbosacral; 2 or 3 [id number] 02:21PMCurtis Meléndez Test NameResultFlagReference Xray Lumbar Spine AP + Lateral(Report) FINAL REPORT Interpreted by: CURTIS MELÉNDEZ JON, MD 11/19/22 16:41 Patient Name: TORI MORALESRY STUDY: SPINE, LUMBOSACRAL; 2 OR 3 VIEWS; ; 11/19/2022 2:21 pm INDICATION: pain M54.9: Back pain. ACCESSION NUMBER(S): [id number] ORDERING CLINICIAN: CURTIS MELÉNDEZ FINDINGS: AP lateral x-rays of the lumbar spine show an L3-4 lateral lumbar fusion with lateral plate and cage configuration. Cage pl (more content not included)... Normal [facility] Radiologyon 11-19-2022 XR Lumbar spine AP and Lateral Normal [facility] Work Phone: SPINE, LUMBOSACRAL 2 OR 3 EWSon 11-19-2022 SPINE, LUMBOSACRAL 2 OR 3 VIEWS Patient Name: YOAVSIRISHA ERIK STUDY: SPINE, LUMBOSACRAL; 2 OR 3 VIEWS; ; 11/19/2022 2:21 pm INDICATION: pain M54.9: Back pain. ACCESSION NUMBER(S): [id number] ORDERING CLINICIAN: CURTIS MELÉNDEZ FINDINGS: AP lateral [...] Electronically signed by: CURTIS MELÉNDEZ MD Normal [facility] BASIC METABOLIC PANELon 10-25 Anion gap [Moles/Vol] 10 mmol/L Normal 10 - 20 [facility] Comment on above: Performed By: #### B MP #### [address] [id number] Calcium [Mass/Vol] 8.9 mg/dL Normal 8.6 - 10.3 [facility] Comment on above: Performed By: #### B MP #### [address] [id number] Chloride [Moles/Vol] 101 mmol/L Normal 98 - 107 [facility] Comment on above: Performed By: #### B MP #### [address] [id number] Creatinine [Mass/Vol] 1.15 mg/dL Normal 0.50 - 1.30 [facility] Comment on above: Performed By: #### B MP #### [address] [id number] GFR/1.73 sq M.predicted among non-blacks MDRD (S/P/Bld) [Vol rate/Area] 70 mL/min/{1.73_m2} Normal >90 [facility] Comment on above: Result Comment: CALC ULATIONS OF ESTIMATED GFR ARE PERFORMED USING THE 2020 CKD-EPI STUDY REFIT EQUATION WITHOUT THE RACE VARIABLE FOR THE IDMS-TRACEABLE CREATININE METHODS. https://jasn.asnjournals.org/content/early/ASN.6357192 988 Performed By: #### B MP #### [address] [id number] Glucose [Mass/Vol] 106 mg/dL High 74 - 99 [facility] Comment on above: Performed By: #### B MP #### [address] [id number] HCO3 (Bld) [Moles/Vol] 29 mmol/L Normal 21 - 32 [facility] Comment on above: Performed By: #### B MP #### [address] [id number] Potassium [Moles/Vol] 4.5 mmol/L Normal 3.5 - 5.3 [facility] Comment on above: Performed By: #### B MP #### [address] [id number] Sodium [Moles/Vol] 135 mmol/L Low 136 - 145 [facility] Comment on above: Performed By: #### B MP #### [address] [id number] Urea nitrogen [Mass/Vol] 13 mg/dL Normal 6 - 23 [facility] Comment on above: Performed By: #### B MP #### [address] [id number] Daily Progress Note-General Internal Medicineon 11-07-2022 Daily [...] intact. Objective Data: Objective Information: T PRBPMAPSpO2 [id number]/[id number]% Date/Time11/07 8: 8: 8: 8: 21: 8:56 [...] laboratory results: Basic Metabolic Panel Trending View [id number] 10:23:00 06-Nov-2022 05:48:00 Glucose, Oxfae408 H 95 NA135 L 138 K4.5 4.1 [...] discussed extensively with patient, RN and Ortho BAGGAGE INSPECTOR. Patient verbalized understanding through teach back method. All questions and concerns addressed upon examination. Of note, this documentation is completed using the [employer] system (voice recognition software). There may be spelling and/or grammatical errors that were not corrected prior to final submission. Plan of Care Reviewed With: Plan of Care Reviewed With: patient Electronic Signatures: Heidy Escobar (SECONDS HANDLER-PAYROLL SPECIALIST) (Signed 07-Nov-2022 14:59) Authored: Service, Subjective Data, Objective Data, Assessment and Plan, Note Completion Last Updated: 07-Nov-2022 14:59 by Heidy Escobar (SECONDS HANDLER-PAYROLL SPECIALIST) Katerina [facility] Daily Progress Note-Orthopae frederic 11-07-2022 Daily Progress Note-Orthopaedics Service: Orthopaedics Subjective Data: ERIK MORALES is a 67 year old Male who is Hospital Day # 4 and POD #3 for 1. ;2. ;3. ;4. ;5. Patient seen and examined this morning. No acute events overnight. Objective Data: Objective Information: T PRBPMAPSpO2 Value36.60355360/9520538% Date/Time11/06 21: 21: 21: 21: 21: 21:08 [...] to home today Electronic Signatures: Gilda Mcmahon (SECONDS HANDLER-PAYROLL SPECIALIST) (Signed 07-Nov-2022 08:00) Authored: Service, Subjective Data, Objective Data, Assessment and Plan, Note Completion Abner Maldonado) (Signed 07-Nov-2022 11:31) Co-Signer: Service, Subjective Data, Objective Data, Assessment and Plan, Note Completion Last Updated: 07-Nov-2022 11:31 by Abner Maldonado) [facility] - Chemistry and C hemistry - challengeon 11-07-2022 Anion gap [Moles/Vol] 10 mmol/L 10 - 20 -[facility] [place] Work Phone: Calcium [Mass/Vol] 8.9 mg/dL 8.6 - 10.[address] [facility] [place] Work Phone: Chloride [Moles/Vol] 101 mmol/L 98 - 107 [facility] [place] Work Phone: CO2 [Moles/Vol] 29 mmol/L 21 - 32 -[facility] [place] Work Phone: Creatinine [Mass/Vol] 1.15 mg/dL See Below -[facility] [place] Work Phone: Comment on above: Reference Range: 0.5 0 - 1.30 Glucose [Mass/Vol] 106 mg/dL above high threshold 74 - 99 -[facility] [place] Work Phone: Potassium [Moles/Vol] 4.5 mmol/L 3.5 - 5.3 -[facility] [place] Work Phone: Sodium [Moles/Vol] 135 mmol/L below low threshold 136 - 145 -[facility] [place] Work Phone: Urea nitrogen [Mass/Vol] 13 mg/dL 6 - 23 -[facility] [place] Work Phone: No Panel Informationon 11-07 70 {mL/min/1.73m2} >[address] [facility] [place] Work Phone: Comment on above: CALCULATIONS OF MEGAN MATED GFR ARE PERFORMED USING THE 2020 CKD-EPI STUDY REFIT EQUATION WITHOUT THE RACE VARIABLE FOR THE IDMS-TRACEABLE CREATININE METHODS.https://jasn.asnjournals.org/content//ASN .1018407792 Order Reconciliationon 11-07 Order Reconciliation Page 1 Discharge Reconciliation Document Reconciliation Type: Discharge requested on behalf of Gilda Mcmahon (Advanced Practice Nurse-Admit) done by Gilda Mcmahon (SECONDS HANDLER-[facility]) Discharge - Reconciliation: 07-Nov-2022 09:21 by: Gilda Mcmahon (SECONDS HANDLER-[facility]) Home Medications EnteredHOME MEDICATIONS AT DISCHARGE DateReconciliation [...] oral tablet is not required Potassium Chloride (Vul-Ehpg-Qya 10) 10 mEq oral tablet, extended release 1 tab(s) orally once a day 21-Oct-2022 13:59 Potassium Chloride (Snj-Vgan-Jou 10) 10 mEq oral tablet, extended release 1 tab(s) orally once a day 21-Oct-2022 13:59 Potassium Chloride (Svn-Nfgy-Wjn 10) 10 mEq oral tablet, extended release is continued as Potassium Chloride (Zgk-Laqr-Xpe 10) 10 mEq oral tablet, extended release [...] Lactated Ringers (more content not included)... Normal [facility] Rehab Note-occupational analyst apyon 11-07-2022 Rehab Note-occupational therapy Rehab: Info: Mode of Treatmentoccupational therapy Time IN07:31 Time OUT08:00 Total Treatment [id number] Patient in ... at end of sessionchair; [...] Mobility/Tone: Bed Mobility Assessment/Interventionssu pine to sit Mxcsvv-fd-Kdl Lassen (Bed Mobility)standby assist; verbal cues; nonverbal cues (demo/gesture) Comment, Bed MobilityEducated pt on log roll technique to maintain spinal precautions. Simulated home s/u and transferred towards right side. Transfer Assessment/Interventionssi t to stand transfer; stand to sit transfer; bed to chair transfer; toilet transfer; shower transfer Comment, TransfersMin verbal cues for hand placement with sit <>stand transfers. Bed-Chair Lassen (Transfers)standby assist Bed-Chair Assistive Device (Transfers)walker, front-wheeled Sit-Stand Lassen (Transfers)standby assist; Multiple sit <>stand transfers performed from various surfaces and surface heights. Pt benefits from elevated surfaces however is able to complete transfers from standard surface heights. Sit-Stand Assistive Device (Transfers)walker, front-wheeled Stand-Sit Lassen (Transfers)standby assist Stand-Sit Assistive Device (Transfers)walker, front-wheeled Shower Lassen (Transfers)Pt reports having shower chair at home which he has used prior to admission. Verbal education provided on safe transfer techniques. Pt also educated to have someone present with transfer for fall prevention. Toilet Lassen (Transfers)standby assist Toilet Assistive Device (Transfer)grab bars/safety [...] Assessment/Interventionlow er body dressing; toileting; grooming; bathing Lassen Level (Bathing)Pt educated on using a finishing inspector to complete LB bathing vs purchasing a LH sponge. Verbal and visual education provided on technique from seated position on shower chair. Pt verbalized understanding. Lassen Level (Lower Body Dressing)don; pants/bottoms; shoes/slippers Assistive Devices (Lower Body Dressing)finishing inspector Comment (Lower Body Dressing)Reviewed education on use of finishing inspector. Wilfredo pants while seated EOB with fair (+) balance. Pt donned LB clothing with SBA. Educated pt on how to use finishing inspector to wilfredo slip on shoes. Pt reports brother can also assist with donning shoes. Pt educated to not walk in tedhose only, always wear shoes or non-slip socks Lassen Level (Grooming)standby assist Position (Grooming)standing Lassen Level (Toileting)standby assist Position (Toileting)sitting Skilled BADL Treatment/Interventionadap tive equipment training; BADL process/adaptation training; compensatory training; energy conservation Motor: Wtu-qi-Otqay (Balance)F+ Standing, Static (Balance)F+ Standing, Dynamic (Balance)F+ [...] Score20 Short Term Goals: Functional Transfer: Established Aqci51-Bac-3388 Functional Transfer: Goal Detailspt will transfer to bed ,chair, toilet with modified indep Functional Transfer: Time Frame for Go (more content not included)... Normal [facility] Rehab Note-physical therapyo n 11-07-2022 Rehab Note-physical therapy Rehab: Info: Disciplinephysical therapist Mode of Treatmentphysical therapy Time IN08:16 Time OUT08:48 Total Treatment [id number] Patient in ... at end of sessionchair; [...] brace in place. PT placed hands over brick and blocker aid labor on walker to cue pt of his [...] hospital rooma little Climbing 3-5 steps with dennise lopez AM-PAC (PT) Total Score18 Short Term Goals: Bed Mobility: Date Wfdvynlwjaa00-Emb-7258 Bed Mobility: Lassen Level Goalmodified independent; supine <> sidelying <> sitting Transfer: Established Rjtl93-Pmz-6003 Transfer: Transfer Type Jzhbxhx-yz-rzhcl/chair-to- bed; dho-sx-ekunk/jvfcb-dz-cyb Transfer: Lassen Level Goalmodified independent Transfer: Assistive Device Goalrolling walker Gait: Established Jlyj76-Wbz-9972 Gait: Lassen Level Goalmodified independent Gait: Assistive Device Goalrolling walker Gait: Distance Gnku895' Education: Learnerpatient Barriers to Learningno barrier Methodverbal [...] home Outcome Summary: Predicted Duration of Therapy Seecittqreex89 days Progress: Physical Therapyprogress toward functional goals as expected Therapy Frequency (PT Eval)2 times/day Predicted Duration of Therapy Elzrlwxeyhck69 days DC Recommendations: Discharge Recommendation (PT Eval)Pt would benefit from [facility] Electronic Signatures: Daniela Scott (PT) (Signed 07-Nov-2022 15:34) Co-Signer: Info, Mobility/Tone, Outcomes Tools, Short Term Goals, Education, Outcome Summary, DC Recommendations Fior Velez (SPT) (Signed 07-Nov-2022 13:43) Authored: Info, Mobility/Tone, Outcomes Tools, Short Term Goals, Education, Outcome Summary, DC Recommendations Last Updated: 07-Nov-2022 15:34 by Daniela Scott (PT) Normal [facility] BASIC METABOLIC PANELon 09-1 Anion gap [Moles/Vol] 9 mmol/L Low 10 - 20 [facility] Comment on above: Performed By: #### B MP #### [facility] [address] [place], [place] [id number] Calcium [Mass/Vol] 8.6 mg/dL Normal 8.6 - 10.3 [facility] Comment on above: Performed By: #### B MP #### [address] [id number] Chloride [Moles/Vol] 105 mmol/L Normal 98 - 107 [facility] Comment on above: Performed By: #### B MP #### [address] [id number] Creatinine [Mass/Vol] 1.37 mg/dL High 0.50 - 1.30 [facility] Comment on above: Performed By: #### B MP #### [address] [id number] GFR/1.73 sq M.predicted among non-blacks MDRD (S/P/Bld) [Vol rate/Area] 57 mL/min/{1.73_m2} Abnormal >90 [facility] Comment on above: Result Comment: CALC ULATIONS OF ESTIMATED GFR ARE PERFORMED USING THE 2020 CKD-EPI STUDY REFIT EQUATION WITHOUT THE RACE VARIABLE FOR THE IDMS-TRACEABLE CREATININE METHODS. https://jasn.asnjournals.org/content/early//ASN.6224021 988 Performed By: #### B MP #### [address] [id number] Glucose [Mass/Vol] 95 mg/dL Normal 74 - 99 [facility] Comment on above: Performed By: #### B MP #### [address] [id number] HCO3 (Bld) [Moles/Vol] 28 mmol/L Normal 21 - 32 [facility] Comment on above: Performed By: #### B MP #### [address] [id number] Potassium [Moles/Vol] 4.1 mmol/L Normal 3.5 - 5.3 [facility] Comment on above: Performed By: #### B MP #### [address] [id number] Sodium [Moles/Vol] 138 mmol/L Normal 136 - 145 [facility] Comment on above: Performed By: #### B MP #### [facility] [address], [place] [id number] Urea nitrogen [Mass/Vol] 14 mg/dL Normal 6 - 23 [facility] Comment on above: Performed By: #### B MP #### [facility] [address], [place] [id number] Daily Progress Note-General Internal Medicineon 11-06-2022 Daily [...] intact. Objective Data: Objective Information: T PRBPMAPSpO2 Value37.32775405/772936% Date/Time11/06 8: 8: 8: 8: 8: 8:18 Range(36.2C - 37.4C ) (63 - 79 ) (16 - 18 ) (104 - 132 )/ (58 - 77 ) (76 - 97 ) (94% - 96% ) Highest temp of 37.4 C was recorded at 11/05 19:08 Pain reported at 11/06 7:23: sleeping ---- Intake and Output ----- Mn/Dy/[facility]Out[facility] Nov 06, 2022 6:00 [id number] Nov 05, 2022 10:00 [id number] Nov 05, 2022 2:00 [id number] The Intake and Output Totals for the last 24 hours are: IntakeOutputNet [id number] Physical Exam Narrative: Physical Exam: Constitutional: awake/alert/oriented [...] discussed extensively with patient, RN and Ortho BAGGAGE INSPECTOR. Patient verbalized understanding through teach back method. All questions and concerns addressed upon examination. Of note, this documentation is completed using the [employer] Dictation system (voice recognition software). There may be spelling and/or grammatical errors that were not corrected prior to final submission. Plan of Care Reviewed With: Plan of Care Reviewed With: patient Elec (more content not included)... Normal [facility] Daily Progress Note-Orthopae frederic 11-06-2022 Daily Progress Note-Orthopaedics Service: Orthopaedics Subjective Data: ERIK MORALES is a 67 year old Male who is Hospital Day # 3 and POD #2 for 1. ;2. ;3. ;4. ;5. Overnight Events: Patient had an uneventful night. Objective Data: Objective Information: T PRBPMAPSpO2 Value37.89498105/433859% Date/Time11/06 8: 8: 8: 8: 8: 8:18 Range(36.2C - 37.4C ) (63 - 79 ) (16 - 18 ) (104 - 132 )/ (58 - 77 ) (76 - 97 ) (94% - 96% ) Highest temp of 37.4 C was recorded at 11/05 19:08 Pain reported at 11/06 7:23: sleeping ---- Intake and Output ----- Mn/Dy/Year TimeIntakeOutputNet Nov 06, 2022 6:00 [id number] Nov 05, 2022 10:00 [id number] Nov 05, 2022 2:00 [id number] The Intake and Output Totals for the last 24 hours are: IntakeOutputNet [id number] T PRBPMAPSpO2 Value37.31062052/773883% Date/Time11/06 8: 8: 8: 8: 8: 8:18 [...] bed -home today Electronic Signatures: Derrick Cunningham (SECONDS HANDLER-PAYROLL SPECIALIST) (Signed 06-Nov-2022 09:07) Authored: Service, Subjective Data, Objective Data, Assessment and Plan, Note Completion Last Updated: 06-Nov-2022 09:07 by Derrick Cunningham (SECONDS HANDLER-PAYROLL SPECIALIST) Normal [facility] Discharge Hitfxwq2er 023 Discharge Profile2 Discharge Orders: Anticipated Discharge Date: Anticipated Discharge [id number]-[id number] Anticipated Discharge Time12:00 Problem List: Admitting Dx: [...] Review of Medication Reconciliation and Orders Completedby SECONDS HANDLER Reviewing ProviderFAINA Dwyer at 07-Nov-2022 09:17:40 Appointments: Follow-Up Appointment 01: Physician/Dept/ServiceDr. Meléndez Reason for Referralback Call to Schedule in2 weeks, please call ahead and schedule appointment [id number] [facility] Phone [phone] Electronic Signatures: Gilda Mcmahon (JESSICA-PAYROLL SPECIALIST) (Signed 07-Nov-2022 09:17) Authored: Discharge Orders, Home Care Orders, Provider FINAL REVIEW of Orders, Appointments, Gold Form - Faculty Member Summary Last Updated: 07-Nov-2022 09:17 by Gilda Mcmahon (SECONDS HANDLER-PAYROLL SPECIALIST) Normal [facility] Laboratory - Chemistry and C hemistry - challengeon 11-06-2022 Anion gap [Moles/Vol] 9 mmol/L below low threshold 10 - 20 [facility] Work Phone: Calcium [Mass/Vol] 8.6 mg/dL 8.6 - 10.[address] [facility] [place] Work Phone: Chloride [Moles/Vol] 105 mmol/L 98 - 107 [facility] [place] Work Phone: CO2 [Moles/Vol] 28 mmol/L 21 - 32 [facility] Work Phone: Creatinine [Mass/Vol] 1.37 mg/dL above high threshold See Below [facility] Work Phone: Comment on above: Reference Range: 0.5 0 - 1.30 Glucose [Mass/Vol] 95 mg/dL 74 - [address] [facility] [place] Work Phone: Potassium [Moles/Vol] 4.1 mmol/L 3.5 - 5.3 [facility] Work Phone: Sodium [Moles/Vol] 138 mmol/L 136 - [address] [facility] Work Phone: Urea nitrogen [Mass/Vol] 14 mg/dL 6 - 23 -[facility] Work Phone: MAGNESIUMon 11-06-2022 Magnesium [Mass/Vol] 2.06 mg/dL Normal 1.60 - 2.40 [facility] Comment on above: Performed By: #### M G #### [address] [id number] Magnesium, Serumon Magnesium [Mass/Vol] 2.06 mg/dL See Below [facility] Work Phone: Comment on above: Reference Range: 1.6 0 - 2.40 No Panel Informationon 11-06 57 {mL/min/1.73m2} Abnormal >[address] [facility] Work Phone: Comment on above: CALCULATIONS OF MEGAN MATED GFR ARE PERFORMED USING THE 2020 CKD-EPI STUDY REFIT EQUATION WITHOUT THE RACE VARIABLE FOR THE IDMS-TRACEABLE CREATININE METHODS.https://jasn.asnjournals.org/content/early//ASN .4100413379 Rehab Note-occupational analyst rohit 11-06-2022 Rehab Note-occupational therapy Rehab: Info: Mode of Treatmentoccupational therapy Time IN10:20 Time OUT10:58 Total Treatment [id number] Patient in ... at end of sessionchair; [...] sitting on sofas and armless chairs. Sit-Stand Lassen (Transfers)contact guard Sit-Stand Assistive Device (Transfers)walker, front-wheeled Stand-Sit Lassen (Transfers)contact guard Stand-Sit Assistive Device (Transfers)walker, front-wheeled Toilet Lassen (Transfers)contact guard Toilet Assistive Device (Transfer)grab bars/safety [...] alignment. UB bathing and dressing with SBA Lassen Level (Lower Body Dressing)don; pants/bottoms; shoes/slippers; minimum assist (75% patient effort) Assistive Devices (Lower Body Dressing)finishing inspector Comment (Lower Body Dressing)Pt educated on use of finishing inspector and sock aid for LB dressing with fair understanding and return demonstration. Lassen Level (Grooming)contact guard Comment (Grooming)Pt performed G/H tasks in stance at sink with fair balance x 2 1/2 min Motor: Wbv-bm-Zecve (Balance)fair balance Standing, Static (Balance)fair balance Standing, [...] Score18 Short Term Goals: Functional Transfer: Established Sgow76-Rpe-8121 Functional Transfer: Goal Detailspt will transfer to bed ,chair, toilet with modified indep Functional Transfer: Time Frame for Goal2 wks Balance: Established Balance: Goal DetailsPt will demo fair + dyn std balance with ADLS Balance: Time Frame for Goal2 wks Upper Body Dressing: Established Upper Body Dressing: Lassen Level Goalstand-by assist Upper Body Dressing: Time Frame for Goal2 wks Lower Body Dressing: Established Lower Body Dressing: Lassen Level Goalminimum assist (75% patients effort) Lower [...] to d (more content not included)... Normal [facility] Rehab Note-physical therapyo n 11-06-2022 Rehab Note-physical therapy Rehab: Info: Disciplinephysical therapist Mode of Treatmentphysical therapy Time IN13:41 Time OUT14:07 Total Treatment [id number] Patient in ... at end of sessionbed, [...] Score18 Short Term Goals: Bed Mobility: Date Dmatbrizpzh79-Hqx-2246 Bed Mobility: Lassen Level Goalmodified independent; supine <> sidelying <> sitting Transfer: Established Ibvy94-Fnd-6248 Transfer: Transfer Type Hhxhixy-sb-ewlev/chair-to- bed; hjl-cc-wsnez/bdhfl-ip-ryn Transfer: Lassen Level Goalmodified independent Transfer: Assistive Device Goalrolling walker Gait: Established Virw44-Boq-4788 Gait: Lassen Level Goalmodified independent Gait: Assistive Device Goalrolling walker Gait: Distance Imgl236' Education: Learnerpatient Barriers to Learningno barrier Methodverbal [...] home Outcome Summary: Predicted Duration of Therapy Wghjosdtevjf51 days Progress: Physical Therapyprogress toward functional goals as expected Therapy Frequency (PT Eval)2 times/day Predicted Duration of Therapy Cjnvntofruce38 days DC Recommendations: Discharge Recommendation (PT Eval)Pt would benefit from [facility] Electronic Signatures: Daniela Scott (PT) (Signed 07-Nov-2022 03:43) Co-Signer: Info, Mobility/Tone, Motor, Sensory, Outcomes Tools, Short Term Goals, Education, Outcome Summary, DC Recommendations Fior Velez (SPT) (Signed 06-Nov-2022 14:31) Authored: Info, Mobility/Tone, Motor, Sensory, Outcomes Tools, Short Term Goals, Education, Outcome Summary, DC Recommendations Last Updated: 07-Nov-2022 03:43 by Daniela Scott (PT) [facility] Rehab Note-physical therapy Rehab: Info: Mode of Treatmentphysical therapy Time IN09:36 Time OUT10:17 Total Treatment Qftmvup91 Patient in ... at end of sessionchair; [...] Score18 Short Term Goals: Bed Mobility: Date Jeargkqznuq03-Bot-1407 Bed Mobility: Lassen Level Goalmodified independent; supine <> sidelying <> sitting Transfer: Established Gvpk46-Ixl-1805 Transfer: Transfer Type Qnroput-ta-uvedm/chair-to- bed; emj-gx-urknz/qeijv-eo-lqn Transfer: Lassen Level Goalmodified independent Transfer: Assistive Device Goalrolling walker Gait: Established Qbon01-Ycu-6818 Gait: Lassen Level Goalmodified independent Gait: Assistive Device Goalrolling walker Gait: Distance Upbd166' Education: Learnerpatient Methodverbal Topicrehab plan of care; precautions; discharge recommendations including destination and/or equipment; fall prevention Education - Topicproper use of FWW for transfers and gait to reduce the risk of fall, reviewed spinal precautions and body mechanics for getting in and out of bed, concerns for discharging home Outcome Summary: Predicted Duration of Therapy Ojmcwmnhcbfq33 days Progress: Physical Therapyprogress towards functional goals is fair Therapy Frequency (PT Eval)2 times/day Predicted Duration of Therapy Uspzvnfmrvrb52 days DC Recommendations: Discharge Recommendation (PT Eval)Pt would benefit from [facility] Electronic Signatures: Daniela Scott (PT) (Signed 07-Nov-2022 03:43) Co-Signer: Info, Mobility/Tone, Outcomes Tools, Short Term Goals, Education, Outcome Summary, DC Recommendations Fior Velez (SPT) (Signed 06-Nov-2022 14:30) Authored: Info, Mobility/Tone, Outcomes Tools, Short Term Goals, Education, Outcome Summary, DC Recommendations Last Updated: 07-Nov-2022 03:43 by Daniela Scott (PT) Normal [facility] BASIC METABOLIC PANELon 10-25 Anion gap [Moles/Vol] 12 mmol/L Normal 10 - 20 [facility] Comment on above: Performed By: #### B MP #### [address] [id number] Calcium [Mass/Vol] 8.8 mg/dL Normal 8.6 - 10.3 [facility] Comment on above: Performed By: #### B MP #### [address] [id number] Chloride [Moles/Vol] 101 mmol/L Normal 98 - 107 [facility] Comment on above: Performed By: #### B MP #### [address] [id number] Creatinine [Mass/Vol] 1.75 mg/dL High 0.50 - 1.30 [facility] Comment on above: Performed By: #### B MP #### [address] [id number] GFR/1.73 sq M.predicted among non-blacks MDRD (S/P/Bld) [Vol rate/Area] 42 mL/min/{1.73_m2} Abnormal >90 [facility] Comment on above: Result Comment: CALC ULATIONS OF ESTIMATED GFR ARE PERFORMED USING THE 2020 CKD-EPI STUDY REFIT EQUATION WITHOUT THE RACE VARIABLE FOR THE IDMS-TRACEABLE CREATININE METHODS. https://jasn.asnjournals.org/content/early//ASN.9892727 988 Performed By: #### B MP #### [address] [id number] Glucose [Mass/Vol] 131 mg/dL High 74 - 99 [facility] Comment on above: Performed By: #### B MP #### [address] [id number] HCO3 (Bld) [Moles/Vol] 26 mmol/L Normal 21 - 32 [facility] Comment on above: Performed By: #### B MP #### [address] [id number] Potassium [Moles/Vol] 4.0 mmol/L Normal 3.5 - 5.3 [facility] Comment on above: Performed By: #### B MP #### [address] [id number] Sodium [Moles/Vol] 135 mmol/L Low 136 - 145 [facility] Comment on above: Performed By: #### B MP #### [address] [id number] Urea nitrogen [Mass/Vol] 14 mg/dL Normal 6 - 23 [facility] Comment on above: Performed By: #### B MP #### [address] [id number] CBCon 11-05-2022 Erythrocyte distribution width (RBC) [Ratio] 13.4 % Normal 11.5 - 14.5 [facility] Comment on above: Performed By: #### C BC #### [address] [id number] Hematocrit (Bld) [Volume fraction] 43.6 % Normal 41.0 - 52.0 [facility] Comment on above: Performed By: #### C BC #### [address] [id number] Hemoglobin (Bld) [Mass/Vol] 14.3 g/dL Normal 13.5 - 17.5 [facility] Comment on above: Performed By: #### C BC #### [address] [id number] MCHC (RBC) [Mass/Vol] 32.8 g/dL Normal 32.0 - 36.0 [facility] Comment on above: Performed By: #### C BC #### [address] [id number] MCV (RBC) [Entitic vol] 96 fL Normal 80 - 100 [facility] Comment on above: Performed By: #### C BC #### [address] [id number] Platelets (Bld) [#/Vol] 244 10*3/uL Normal 150 - 450 [facility] Comment on above: Performed By: #### C BC #### [address] [id number] RBC 4.54 x10E12/L Normal 4.50 - 5.90 [facility] Comment on above: Performed By: #### C BC #### [address] [id number] WBC (Bld) [#/Vol] 16.4 10*3/uL High 4.4 - 11.3 [facility] Comment on above: Performed By: #### C BC #### [address] [id number] Daily Progress Note-General Internal Medicineon 11-05-2022 Daily [...] intact. Objective Data: Objective Information: T PRBPMAPSpO2 Value36.75199370/623386% Date/Time11/05 7: 0: 0: 7: 7: 7:33 [...] ----- Mn/Dy/Year TimeIntakeOutputNet Nov 05, 2022 6:00 [id number] Nov 04, 2022 10:00 [id number] Nov 04, 2022 2:00 [id number] The Intake and Output Totals for the last 24 hours are: IntakeOutputNet [id number] Physical Exam Narrative: Physical Exam: Constitutional: awake/alert/oriented [...] interview, assessm (more content not included)... Normal [facility] Daily Progress Note-Orthopae frederic 11-05-2022 Daily Progress Note-Orthopaedics Service: Orthopaedics Subjective Data: ERIK MORALES is a 67 year old Male who is Hospital Day # 2 and POD #1 for 1. ;2. ;3. ;4. ;5. Overnight Events: Patient had an uneventful night. Objective Data: Objective Information: T PRBPMAPSpO2 Value36.03902743/864585% Date/Time11/05 7: 0:409 0:40912 7:339 7:339 7:33 Range(36.1C - 36.8C [...] ----- Mn/Dy/Year TimeIntakeOutputNet Nov 05, 2022 6:00 [id number] Nov 04, 2022 10:00 [id number] Nov 04, 2022 2:00 [id number] The Intake and Output Totals for the last 24 hours are: IntakeOutputNet [id number] T PRBPMAPSpO2 Value36.99094968/699356% Date/Time11/05 7: 0: 0: 7: 7: 7:33 [...] out of bed Electronic Signatures: Derrick Cunningham (SECONDS HANDLER-PAYROLL SPECIALIST) (Signed 05-Nov-2022 08:16) Authored: Service, Subjective Data, Objective Data, Assessment and Plan, Note Completion Curtis Maldonado) (Signed 05-Nov-2022 09:30) Co-Signer: Service, Subjective Data, Objective Data, Assessment and Plan, Note Completion Last Updated: 05-Nov-2022 09:30 by Curtis Maldonado) [facility] Laboratory - Chemistry and C hemistry - challengeon 11-05-2022 Anion gap [Moles/Vol] 12 mmol/L 10 - 20 [facility] [place] Work Phone: Calcium [Mass/Vol] 8.8 mg/dL 8.6 - 10.[address] [address] [facility] [place] Work Phone: Chloride [Moles/Vol] 101 mmol/L 98 - 107 [facility] [place] Work Phone: CO2 [Moles/Vol] 26 mmol/L 21 - 32 -[facility] [place] Work Phone: Creatinine [Mass/Vol] 1.75 mg/dL above high threshold See Below -[facility] [place] Work Phone: Comment on above: Reference Range: 0.5 0 - 1.30 Glucose [Mass/Vol] 131 mg/dL above high threshold 74 - 99 -[facility] [place] Work Phone: Potassium [Moles/Vol] 4.0 mmol/L 3.5 - 5.3 -[facility] [place] Work Phone: Sodium [Moles/Vol] 135 mmol/L below low threshold 136 - 145 -[facility] [place] Work Phone: Urea nitrogen [Mass/Vol] 14 mg/dL 6 - 23 -[facility] [place] Work Phone: Laboratory - Hematology and Cell countson 09-12-2023 Erythrocyte distribution width (RBC) [Ratio] 13.4 % See Below [facility] [employer] Work Phone: Comment on above: Reference Range: 11. 5 - 14.5 Hematocrit (Bld) [Volume fraction] 43.6 % See Below [facility] [employer] Work Phone: Comment on above: Reference Range: 41. 0 - 52.0 Hemoglobin (Bld) [Mass/Vol] 14.3 g/dL See Below [facility] [employer] Work Phone: Comment on above: Reference Range: 13. 5 - 17.5 MCHC (RBC) [Mass/Vol] 32.8 g/dL See Below [facility] [employer] Phone: Comment on above: Reference Range: 32. 0 - 36.0 MCV (RBC) [Entitic vol] 96 fL 80 - 100 [facility] Work Phone: Platelets (Bld) [#/Vol] 244 10*3/uL 150 - 450 [facility] [employer] Phone: RBC (Bld) [#/Vol] 4.54 {x10E12/L} See Below [facility] [place] [place] Work Phone: Comment on above: Reference Range: 4.5 0 - 5.90 WBC (Bld) [#/Vol] 16.4 10*3/uL above high threshold 4.4 - 11.3 [facility] Work Phone: No Panel Informationon 11-05 42 {mL/min/1.73m2} Abnormal >90 [facility] [employer] Work Phone: Comment on above: CALCULATIONS OF MEGAN MATED GFR ARE PERFORMED USING THE 2020 CKD-EPI STUDY REFIT EQUATION WITHOUT THE RACE VARIABLE FOR THE IDMS-TRACEABLE CREATININE METHODS.https://jasn.asnjournals.org/content/early//ASN .5604486845 OT Evaluation v2-occupationa l therapyon 11-05-2022 OT Evaluation v2-occupational therapy Rehab: Info: Mode of Treatmentoccupational therapy Time IN07:41 Time OUT08:05 Total Treatment Minutes0 Patient Effortgood Symptoms Noted During/After Treatmentnone Patient Profile Reviewedyes Onset of Illness/Injury or Date of Pvjnjcs59-Isc-6175 Reason for ReferralL2-3, L3-4 lami, L3-4 lateral [...] Static (Balance)good balance Sitting, Dynamic (Balance)good balance Lpb-dg-Virlu (Balance)good balance Standing, Static (Balance)fair balance Standing, Dynamic (Balance)fair balance Sensory: Pre-Treatment Pain Rating3/10 Post-Treatment Pain Rating3/10 Comment, Pre/Post Treatment Painlow back pain Sensory General Assessmentno sensation deficits identified Impression: Criteria for Skilled Therapeutic Interventions Met (OT Eval)treatment indicated OT DiagnosisADL impairment Rehab Potential (OT Eval)good, to achieve stated therapy goals Therapy Frequency (OT Eval)2 times/wk Predicted Duration of Therapy Drrjmzdrjedh49 days Functional Limitations in Following Categoriesself-care Planned [...] Score16 Short Term Goals: Functional Transfer: Established Endr39-Qlo-8463 Functional Transfer: Goal Detailspt will transfer to bed ,chair, toilet with modified indep Functional Transfer: Time Frame for Goal2 wks Balance: Established Rxih42-Jkc-9183 Balance: Goal DetailsPt will demo fair + dyn std balance with ADLS Balance: Time Frame for Goal2 wks Upper Body Dressing: Established Upper Body Dressing: Lassen Level Goalstand-by assist Upper Body Dressing: Time Frame for Goal2 wks Lower Body Dressing: Established Lower Body Dressing: Lassen Level Goalminimum assist (75% patients effort) Lower Body Dressing: Time Frame for Goal2 wks Following Precautions: Established Srsq34-Hbl-9487 Following Precautions: Goal Detailspt will verbalize and [...] 05-Nov-2022 09:56 by Marianna Hayes (OT) Normal [facility] PT Evaluation v2-physical th erapyon 11-05-2022 PT Evaluation v2-physical therapy Rehab: Info: Mode of Treatmentphysical therapy Time IN07:45 Time OUT08:05 Patient in ... at end of sessionchair; alarm on Patient Effortgood Patient Profile Reviewedyes Onset of Illness/Injury or Date of Tbhgazk85-Tdr-4033 Reason for ReferralSurgery 11.04.2022 L3-4 lateral interbody fusion, L2-3 and L3-4 laminectomy and posterior lateral fusion, L3-4 lateral instrumentation, thermal ablation of median nerve to L2-3 and L3-4 Referring PhysicianPT/OT 11.04.2022 Ángela Lumbosacral brace up Spinal precautions Patient/Family/Caregiver Comments/ObservationsServi bari provided by Alta Velez, SPT with direct supervision and guidance from Daniela Scott, JASE General Observations of PatientPt supine in bed [...] Static (Balance)good balance Sitting, Dynamic (Balance)fair balance Wtn-xp-Ikoxo (Balance)fair + Standing, Static (Balance)fair + Standing, [...] (PT Eval)2 times/day Predicted Duration of Therapy Zzzinhfepfsh49 days Outcomes Tools: Turning from your back [...] in hosp (more content not included)... 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 at end of sessionbed, [...] Score18 Short Term Goals: Bed Mobility: Date Frmctidbmmw44-Ahq-4169 Bed Mobility: Lassen Level Goalmodified independent; supine <> sidelying <> sitting Transfer: Established Zrwh05-Jry-1381 Transfer: Transfer Type Pstwhzr-ar-fmppc/chair-to- bed; esz-ip-zndfg/wahjj-ql-cdn Transfer: Lassen Level Goalmodified independent Transfer: Assistive Device Goalrolling walker Gait: Established Amzb86-Zla-5027 Gait: Lassen Level Goalmodified independent Gait: Assistive Device Goalrolling walker Gait: Distance Kjsd213' Education: Learnerpatient; family member Methodverbal Outcome Evaluation1=partially meets; needs review Education - Topicpt able to recall spinal precautions , Able to don and doff TLSO brace Outcome Summary: Progress: Physical Therapyprogress toward functional goals as expected Electronic Signatures: Kelsea Cueto (MOTORCYCLE REPAIRER) (Signed 05-Nov-2022 16:34) Authored: Info, Mobility/Tone, Sensory, Outcomes Tools, Short Term Goals, Education, Outcome Summary Daniela Scott (PT) (Signed 06-Nov-2022 03:32) Co-Signer: Info, Mobility/Tone, Sensory, Outcomes Tools, Short Term Goals, Education, Outcome Summary Last Updated: 06-Nov-2022 03:32 by Daniela Scott (PT) Normal [facility] Admission Risk Screen - Adul ton 11-04-2022 Admission Risk Screen - Adult Allergies: Intolerances: nitroglycerin: Unknown Patient Verification: New W ID Band Applied in my Departmentno Type of ID Patient is WearingW wristband, but not applied here Patient Transferred from Other Facility ([facility], [facility],etc)no Patient Identity Verified Bypatient [...] AlertFor Ebola-like Symptoms: Isolate Patient and Notify Provider/Crusher Supervisor For Contact: Notify Provider/Crusher Supervisor Advance Directive: Advance Directive/DNRyes Advance Directive typeLiving Will, Durable Power of Oil Pumper for Healthcare Living Will AvailabilityLiving Will not available now Living Will Uujlsarvj21-Ybf-7112 Durable Power of Oil Pumper AvailabilityDPOA not available now Durable Power of Oil Pumper Inobjicmm70-Bgo-7498 Durable Power of Oil Pumper contact (name and number)Dana [phone] [place] Fall Screen: History of falling (immediate [...] instruction; skill demonstration Cultural Considerationsnone Developmental Considerationsnone Anglican Considerationsnone Learning Assessment (Other Learner): Other learner availableno Depression Screen: During the past month, have you often been bothered by feeling down, depressed or hopelessno During the past month, have you often had little interest or pleasure in doing thingsno Have you had any thoughts of harming anyone elseno [place] Suicide: Risk Screen Not Applicable/Able to Answerable to be screened In the Past Month: Have you wished you were or could go to sleep and not wake upno In the Past Month: Have you had any actual thoughts of killing yourselfno Lifetime: Have you ever done, started to do, or prepared to do anything to end your lifeno [place] Suicide Risknegative Adult Nutrition Screen: Have you [...] (frequency/quality)frequen t; (more content not included)... Normal [facility] Consult-General Internal Med sotero 11-04-2022 Consult-General Internal [...] nitroglycerin: Unknown Objective: Objective Information: T PRBPMAPSpO2 [id number]% Date/Time11/04 15: 15: 15: 15: 15: 15:32 [...] to b (more content not included)... 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 Drives. Pt plans to dc home. CT team will continue to monitor care progression and potential dc needs. Darya Jay RN TCC 11/06/22 0900 TCC UPDATE: [facility] score is PT (18) OT (16), [...] Jones RN TCC. Assessment: Discharge Planning Assessment Ougi40-Ibh-1631 Primary Contact Name and NumberDale (brother) [phone] Lives Withsibling(s) Living Arrangementshouse PCPHoy [facility] Anticipated at Transitionnone InsuranceDevoted Anticipated [...] Discharge Documentation Last Updated: 06-Nov-2022 15:26 by Sultnaa Jones ([employer] [employer]) Normal [facility] Order Reconciliationon 11-04 Order Reconciliation Page 1 Admission Reconciliation Document Reconciliation Type: Admission requested on behalf of Heidy Escobar (Advanced Practice Nurse) done by Heidy Escobar ([facility]) Admission - Partial Reconciliation: 04-Nov-2022 15:50 by: Heidy Escobar ([facility]) Admission - Reconciliation: 04-Nov-2022 15:50 by: Heidy Escobar ([facility]) Home MedicationsEnteredLast Dose TakenReconciled with current Order Reconciliation Comment/ Additional Information atorvastatin 40 mg oral tablet 1 tab(s) orally once a day (at bedtime) PM Atorvastatin Tablet (LIPITOR)DOSE = 40 mg Oral At Bedtimeatorvastatin 40 mg oral tablet continued as the inpatient order Atorvastatin baclofen 10 mg oral tablet 1 tab(s) orally once a hxn89-Inm-656357-Wqy-1102 PM Reviewed and Held Eliquis 5 mg oral tablet 1 tab(s) orally 2 times a day---AWARE TO HOLD PRIOR TO PROCEDURE Reviewed and Held furosemide 20 mg oral tablet 1 tab(s) orally once a mdx36-Khd-775129-Ynp-2097 AM Furosemide Tablet (LASIX)DOSE = 20 mg Oral Dailyfurosemide 20 mg oral tablet is continued and suspended as Furosemide lisinopril 20 mg oral tablet 1 tab(s) orally once a hso18-Pns-225754-Ugf-0734 PM Lisinopril Tablet (PRINIVIL, ZESTRIL)DOSE = 20 mg Oral Dailylisinopril 20 mg oral tablet is continued and suspended as Lisinopril metoprolol tartrate 25 mg oral tablet 1 tab(s) orally 2 times a day---AWARE TO TAKE MORNING OF PROCEDUE WITH A SIP OF [id number]-Mph-856361-Kjy-858 3 02:30 AM Reviewed and Held Multiple Vitamins oral tablet 1 tab(s) orally once a fdt89-Njc-310904-Nov-2022 AM Multivitamin with Minerals TabletDOSE = 1 tablet(s) Oral Daily Multiple Vitamins oral tablet continued as the inpatient order Multivitamin with Minerals nortriptyline 25 mg oral capsule orally once a vvq46-Vwb-664074-Zsu-6090 PM Nortriptyline Capsule (PAMELOR)DOSE = 25 mg [...] tab(s) orally 2 times a day, As Tgknbh12-Bto-358251-Pgy-39 23 Reviewed and Held Potassium Chloride (Ohy-Lbrk-Ljx 10) 10 mEq oral tablet, extended release 1 tab(s) orally once a xcs59-Bdz-163828-Cit-2636 PM Reviewed and Held Additional Current Orders [...] 12 HoursRecommended Infusion Time: 60 minute(s) Normal [facility] Radiologyon 11-04-2022 Fluoroscopy duration Please click on the link to view the study images Normal [facility] Work Phone: Established Visit (Orthopaed [...] instructions were (more content not included)... Normal [employer] APTTon 10-21-2022 aPTT Coag (Bld) [Time] 34 s Normal 27 - 38 [facility] Comment on above: Result Comment: Note new reference range as of 08/13/2022 at 10:00am. Performed By: #### A PTT #### [address] [id number] Activated Partial Thrombopla stin Timeon 10-21-2022 aPTT Coag (PPP) [Time] 34 s 27 - [address] [facility] Work Phone: Comment on above: Note new reference r jana as of 08/13/2022 at 10:00am. CBC AND DIFFERENTIALon 10-21 % AUTOMATED IMMATURE GRAN 0.3 % Normal 0.0 - 0.9 [facility] Comment on above: Result Comment: Jovanna ture Granulocyte Count (IG) includes promyelocytes, myelocytes and metamyelocytes but does not include bands. Percent differential counts (%) should be interpreted in the context of the absolute cell counts (cells/L). Performed By: #### C BCDF #### [address] [id number] Basophils (Bld) [#/Vol] 0.11 10*3/uL High 0.00 - 0.10 [facility] Comment on above: Performed By: #### C BCDF #### [address] [id number] Basophils/100 WBC (Bld) 1.2 % Normal 0.0 - 2.0 [facility] Comment on above: Performed By: #### C BCDF #### [address] [id number] Eosinophils (Bld) [#/Vol] 0.21 10*3/uL Normal 0.00 - 0.70 [facility] Comment on above: Performed By: #### C BCDF #### [address] [id number] Eosinophils/100 WBC (Bld) 2.2 % Normal 0.0 - 6.0 [facility] Comment on above: Performed By: #### C BCDF #### [address] [id number] Erythrocyte distribution width (RBC) [Ratio] 13.5 % Normal 11.5 - 14.5 [facility] Comment on above: Performed By: #### C BCDF #### [address] [id number] Hematocrit (Bld) [Volume fraction] 44.9 % Normal 41.0 - 52.0 [facility] Comment on above: Performed By: #### C BCDF #### [address] [id number] Hemoglobin (Bld) [Mass/Vol] 14.8 g/dL Normal 13.5 - 17.5 [facility] Comment on above: Performed By: #### C BCDF #### [address] [id number] Lymphocytes (Bld) [#/Vol] 1.28 10*3/uL Normal 1.20 - 4.80 [facility] Comment on above: Performed By: #### C BCDF #### [address] [id number] Lymphocytes/100 WBC (Bld) 13.6 % Normal 13.0 - 44.0 [facility] Comment on above: Performed By: #### C BCDF #### [address] [id number] MCHC (RBC) [Mass/Vol] 33.0 g/dL Normal 32.0 - 36.0 [facility] Comment on above: Performed By: #### C BCDF #### [address] [id number] MCV (RBC) [Entitic vol] 94 fL Normal 80 - 100 [facility] Comment on above: Performed By: #### C BCDF #### [address] [id number] Monocytes (Bld) [#/Vol] 0.72 10*3/uL Normal 0.10 - 1.00 [facility] Comment on above: Performed By: #### C BCDF #### [address] [id number] Monocytes/100 WBC (Bld) 7.7 % Normal 2.0 - 10.0 [facility] Comment on above: Performed By: #### C BCDF #### [address] [id number] Neutrophils (Bld) [#/Vol] 7.04 10*3/uL Normal 1.20 - 7.70 [facility] Comment on above: Performed By: #### C BCDF #### [address] [id number] Neutrophils/100 WBC (Bld) 75.0 % Normal 40.0 - 80.0 [facility] Comment on above: Performed By: #### C BCDF #### [address] [id number] Platelets (Bld) [#/Vol] 251 10*3/uL Normal 150 - 450 [facility] Comment on above: Performed By: #### C BCDF #### [address] [id number] RBC 4.78 x10E12/L Normal 4.50 - 5.90 [facility] Comment on above: Performed By: #### C BCDF #### [address] [id number] WBC (Bld) [#/Vol] 9.4 10*3/uL Normal 4.4 - 11.3 [facility] Comment on above: Performed By: #### C BCDF #### [address] [id number] COMPREHENSIVE PANELon 2022 Albumin [Mass/Vol] 4.0 g/dL Normal 3.4 - 5.0 [facility] Comment on above: Performed By: #### C BC #### [address] [id number] ALP [Catalytic activity/Vol] 127 U/L Normal 33 - 136 [facility] Comment on above: Performed By: #### C BC #### [address] [id number] ALT [Catalytic activity/Vol] 16 U/L Normal 10 - 52 [facility] Comment on above: Result Comment: Becca ents treated with Sulfasalazine may generate falsely decreased results for ALT. Performed By: #### C BC #### [address] [id number] Anion gap [Moles/Vol] 12 mmol/L Normal 10 - 20 [facility] Comment on above: Performed By: #### C BC #### [address] [id number] AST [Catalytic activity/Vol] 21 U/L Normal 9 - 39 [facility] Comment on above: Performed By: #### C BC #### [address] [id number] Bilirubin [Mass/Vol] 0.6 mg/dL Normal 0.0 - 1.2 [facility] Comment on above: Performed By: #### C BC #### [address] [id number] Calcium [Mass/Vol] 9.3 mg/dL Normal 8.6 - 10.3 [facility] Comment on above: Performed By: #### C BC #### [address] [id number] Chloride [Moles/Vol] 103 mmol/L Normal 98 - 107 [facility] Comment on above: Performed By: #### C BC #### [address] [id number] Creatinine [Mass/Vol] 1.29 mg/dL Normal 0.50 - 1.30 [facility] Comment on above: Performed By: #### C BC #### [address] [id number] GFR/1.73 sq M.predicted among non-blacks MDRD (S/P/Bld) [Vol rate/Area] 61 mL/min/{1.73_m2} Normal >90 [facility] Comment on above: Result Comment: CALC ULATIONS OF ESTIMATED GFR ARE PERFORMED USING THE 2020 CKD-EPI STUDY REFIT EQUATION WITHOUT THE RACE VARIABLE FOR THE IDMS-TRACEABLE CREATININE METHODS. https://jasn.asnjournals.org/content//ASN.8229643 988 Performed By: #### C BC #### [address] [id number] Glucose [Mass/Vol] 103 mg/dL High 74 - 99 [facility] Comment on above: Performed By: #### C BC #### [address] [id number] HCO3 (Bld) [Moles/Vol] 27 mmol/L Normal 21 - 32 [facility] Comment on above: Performed By: #### C BC #### [address], [place] [id number] Potassium [Moles/Vol] 3.8 mmol/L Normal 3.5 - 5.3 [facility] Comment on above: Performed By: #### C BC #### [address] [id number] Protein [Mass/Vol] 7.4 g/dL Normal 6.4 - 8.2 [facility] Comment on above: Performed By: #### C BC #### [address] [id number] Sodium [Moles/Vol] 138 mmol/L Normal 136 - 145 [facility] Comment on above: Performed By: #### C BC #### [address] [id number] Urea nitrogen [Mass/Vol] 11 mg/dL Normal 6 - 23 [facility] Comment on above: Performed By: #### C BC #### [address] [id number] Complete Blood Count + Diffe rentialon 10-21-2022 Basophils/100 WBC (Bld) 1.2 % 0.0 - 2.0 [facility] Work Phone: Erythrocyte distribution width (RBC) [Ratio] 13.5 % See Below [facility] Work Phone: Comment on above: Reference Range: 11. 5 - 14.5 Hematocrit (Bld) [Volume fraction] 44.9 % See Below [facility] Work Phone: Comment on above: Reference Range: 41. 0 - 52.0 Hemoglobin (Bld) [Mass/Vol] 14.8 g/dL See Below [facility] Work Phone: Comment on above: Reference Range: 13. 5 - 17.5 Lymphocytes/100 WBC (Bld) 13.6 % See Below [facility] Work Phone: Comment on above: Reference Range: 13. 0 - 44.0 MCHC (RBC) [Mass/Vol] 33.0 g/dL See Below [facility] Work Phone: [phone] Comment on above: Reference Range: 32. 0 - 36.0 MCV (RBC) [Entitic vol] 94 fL 80 - [address] [facility] Work Phone: [phone] Monocytes/100 WBC (Bld) 7.7 % 2.0 - 10.[address] [facility] Work Phone: [phone] Neutrophils/100 WBC (Bld) 75.0 % See Below [facility] Work Phone: [phone] Comment on above: Reference Range: 40. 0 - 80.0 Platelets (Bld) [#/Vol] 251 10*3/uL 150 - [address] [facility] Work Phone: [phone] RBC (Bld) [#/Vol] 4.78 {x10E12/L} See Below [facility] Work Phone: [phone] Comment on above: Reference Range: 4.5 0 - 5.90 WBC (Bld) [#/Vol] 9.4 10*3/uL 4.4 - 11.3 [facility] Work Phone: [phone] Blood Count + Differential 0.11 {x10E9/L} above high threshold See Below [facility] Work Phone: [phone] Comment on above: Reference Range: 0.0 0 - 0.10 Complete Blood Count + Differential 0.21 {x10E9/L} See Below [facility] Work Phone: [phone] Comment on above: Reference Range: 0.0 0 - 0.70 Complete Blood Count + Differential 0.72 {x10E9/L} See Below [facility] Work Phone: [phone] Comment on above: Reference Range: 0.1 0 - 1.00 Complete Blood Count + Differential 1.28 {x10E9/L} See Below [facility] Work Phone: [phone] Comment on above: Reference Range: 1.2 0 - 4.80 Complete Blood Count + Differential 7.04 {x10E9/L} See Below [facility] Work Phone: [phone] Comment on above: Reference Range: 1.2 0 - 7.70 Complete Blood Count + Differential 2.2 % 0.0 - 6.0 [facility] Work Phone: [phone] Complete Blood Count + Differential 0.3 % 0.0 - 0.9 [facility] Work Phone: [phone] Comment on above: Immature Granulocyte Count (IG) includes promyelocytes, myelocytes and metamyelocytes but does not include bands. Percent differential counts (%) should be interpreted in the context of the absolute cell counts (cells/L). Electrocardiogram 12 Leadon 10-21-2022 Electrocardiogram 12 Lead Ventricular Rate 64 Atrial Rate 64 P-R Interval 172 QRS Duration 84 Q-T Interval 398 QTC Calculation(Bazett) 410 P [place] 22 R [place] 17 T [place] 32 QRS Count 11 Q Onset 225 P Onset 139 P Offset 198 T Offset 424 QTC Fredericia 406 Diagnosis Class Borderline Normal Diagnosis Normal sinus rhythm Early transition Otherwise normal ECG No previous ECGs available Confirmed by Curtis Trejo ([id number]) on 10/24/2022 9:27:[address] [facility] - Chemistry and C hemistry - challengeon 10-21-2022 Albumin BCP dye [Mass/Vol] 4.0 g/dL 3.4 - 5.0 [facility] Work Phone: [phone] ALP [Catalytic activity/Vol] 127 U/L 33 - 136 [facility] Work Phone: [phone] ALT With P-5'-P [Catalytic activity/Vol] 16 U/L 10 - 52 [facility] Work Phone: [phone] Comment on above: Patients treated wit h Sulfasalazine may generate falsely decreased results for ALT. Anion gap [Moles/Vol] 12 mmol/L 10 - 20 [facility] Work Phone: [phone] AST With P-5'-P [Catalytic activity/Vol] 21 U/L 9 - 39 -[facility] Work Phone: [phone] Bilirubin [Mass/Vol] 0.6 mg/dL 0.0 - 1.2 [facility] Work Phone: [phone] Calcium [Mass/Vol] 9.3 mg/dL 8.6 - 10.[address] [facility] Work Phone: [phone] Chloride [Moles/Vol] 103 mmol/L 98 - 107 [facility] Work Phone: [phone] CO2 [Moles/Vol] 27 mmol/L 21 - 32 -[facility] Work Phone: [phone] Creatinine [Mass/Vol] 1.29 mg/dL See Below -[facility] Work Phone: [phone] Comment on above: Reference Range: 0.5 0 - 1.30 Glucose [Mass/Vol] 103 mg/dL above high threshold 74 - 99 -[facility] Work Phone: [phone] Potassium [Moles/Vol] 3.8 mmol/L 3.5 - 5.3 -[facility] Work Phone: [phone] Protein [Mass/Vol] 7.4 g/dL 6.4 - 8.[address] [facility] [facility] Work Phone: [phone] Sodium [Moles/Vol] 138 mmol/L 136 - [address] [facility] Work Phone: [phone] Urea nitrogen [Mass/Vol] 11 mg/dL 6 - 23 [facility] Work Phone: Laboratory - Coagulationon 0 10-21-2022 INR Coag (PPP) [Relative time] 1.4 {INR} above high threshold 0.9 - 1.1 [facility] [place] Work Phone: [phone] PT Coag (PPP) [Time] 16.2 s above high threshold 9.8 - 12.8 [facility] [place] Work Phone: [phone] Comment on above: Note new reference yrn bates as of 08/13/2022 at 10:00am. MRSA Screenon 10-21-2022 Staphylococcus sp identified Org specific cx Nom (Unsp spec) Abnormal [facility] [place] Work Phone: [phone] Panel Informationon 10-21 [email or web address] ?RetrieveTestByDateTime?Pa [id number]&Date=&Time=14%3a28%3a16% 3a00&TestType=ECG&Site=1&O utputType=PDF&Ext=PDF [facility] [place] Work Phone: [phone] Normal sinus rhythm [facility] [place] Work Phone: [phone] Borderline Normal [facility] [place] Work Phone: [phone] [facility] [place] Work Phone: [phone] [facility] [place] Work Phone: [phone] [facility] [place] Work Phone: [phone] [facility] [place] Work Phone: [phone] [facility] [place] Work Phone: 1 [facility] [place] Work Phone: 1 [facility] [place] Work Phone: [phone] [facility] [place] Work Phone: [phone] [facility] [place] Work Phone: [phone] [facility] [place] Work Phone: [phone] [facility] [place] Work Phone: [phone] [facility] [place] Work Phone: [phone] [facility] [place] Work Phone: [phone] [facility] [place] Work Phone: {mL/min/1.73m2} >90 [facility] [place] Work Phone: Comment on above: CALCULATIONS OF MEGAN MATED GFR ARE PERFORMED USING THE 2020 CKD-EPI STUDY REFIT EQUATION WITHOUT THE RACE VARIABLE FOR THE IDMS-TRACEABLE CREATININE METHODS.https://jasn.asnjournals.org/content/early/ASN .8651739690 PT/INRon 10-21-2022 PT Coag (PPP) [Time] 16.2 s High 9.8 - 12.8 [facility] Comment on above: Result Comment: Note new reference range as of 08/13/2022 at 10:00am. Performed By: #### P TINR #### [address] [id number] PT, INR 1.4 High 0.9 - 1.1 [facility] Comment on above: Performed By: #### P TINR #### [address] [id number] Patient Profile - Preop v3on 10-21-2022 Patient Profile - Preop v3 Patient Profile - Preop: Initial Info: Patient DemographicsName: ERIK MORALES Date: 1955 Address: [address] [place] [address] Date/Time [id number] 13:33 Primary Phone [phone] Instructions Givenappropriate clothing, bring responsible adult as the limb driver (procedure may be cancelled if no limb driver), center location, insurance information Prep Instructions Reviewedyes Prep TypeCHG wipes Instructed to Have No Fluids AfterNPO after midnight How to be AddressedGarry Spoken Language PreferredEnglish Source of Informationpatient Stated Reason for AdmissionBack surgery Primary Contact Name and Irene (brother) [phone] Other Contact Names and NumbersDerick Garsia (friend) [phone] Limitations on Visitors/Phone Callsnone Medications Brought to Hospitalno General Health: Weight in kg90.4 kilogram(s) Weight in ijc540.2 pound(s) Weight Methodactual (measured) Scale Typestanding Height [...] CommentsLives with brother Resource/Environmental Concernsnone Anticipated Transition Tolester Services Anticipated at Transitionnone Tobacco Use: Tobacco Useno former cigar smoker, quit 15 years ago Pre-op Checklist: Arrival [id number] Arrival Time09:25 Procedure TypeL2-3, L3-4 LAMINECTOMY, L3-4 INSTRUMENTATION, L2-3, L3-4 POSTERIOR LATERAL FUSION, L3-4LATERAL LUMBAR INTERBODY FUSION NPOyes Last Food [id number] 18:30 Last Clear Fluid [id number] 19:00 ID Band On Patientpatient ID (name), falls risk Consent Signedyes H&P Completeyes Anesthesia Assessment Completedpending EKG Performedsee results tab Chest X-Ray Performednot ordered Preop Antibioticssent to OR Beta-sushant Last Dose Date/[id number] 02:30 Glucose Resultn/a Type and Screen Resultedn/a [...] Updated: 04-Nov-2022 05:56 by Moira Marsh) Normal [facility] STAPH/MRSA SCREENon 10-22-19 23 STAPH/MRSA SCREEN PATIENT: ERIK MORALES LOCATION: [facility] BILL#: [id number] : 55 AGE: SEX: M ORDERED BY: CURTIS MELÉNDEZ [facility] COL[facility]ED: 10/21/22 14:18 ANTIBIOTICS AT TEDDY.: RECEIVED : 10/21/22 21:56 SITE: R E S U L T S STAPH/MRSA SCREEN FINAL 10/23/22 12:12 ISOLATE1 : Staphylococcus aureus METHICILLIN SENSITIVE STAPHYLOCOCCUS AUREUS (MSSA) Normal [facility] Comment on above: Performed By: #### S TAP #### [facility] [address] [place] [address] URINALYSIS WITH CULTURE IF I NDICATEDon 10-21-2022 Appearance (U) CLEAR Normal CLEAR [facility] Comment on above: Performed By: #### U ARFX #### [address] [id number] Bilirubin Ql (U) Negative Normal NEGATIVE [facility] Comment on above: Performed By: #### U ARFX #### [address] [id number] Color (U) YELLOW Normal STRAW,YELLO W [facility] Comment on above: Performed By: #### U ARFX #### [address] [id number] Glucose Ql (U) Negative Normal NEGATIVE [facility] Comment on above: Performed By: #### U ARFX #### [address] [id number] Hemoglobin Ql (U) Negative Normal NEGATIVE [facility] Comment on above: Performed By: #### U ARFX #### [address] [id number] Ketones Ql (U) Negative Normal NEGATIVE [facility] Comment on above: Performed By: #### U ARFX #### [address] [id number] Leukocyte esterase Test strip Ql (U) Negative Normal NEGATIVE [facility] Comment on above: Performed By: #### U ARFX #### [address] [id number] Nitrite Ql (U) Negative Normal NEGATIVE [facility] Comment on above: Performed By: #### U ARFX #### [address] [id number] pH (U) 6.0 [pH] Normal 5.0 - 8.0 [facility] Comment on above: Performed By: #### U ARFX #### [address] [id number] Protein Ql (U) Negative Normal NEGATIVE [facility] Comment on above: Performed By: #### U ARFX #### [address] [id number] Specific gravity (U) [Rel density] 1.010 Normal 1.005 - 1.035 [facility] Comment on above: Performed By: #### U ARFX #### [address] [id number] Urobilinogen (U) [Mass/Vol] mg/dL Normal 0.0 - 1.9 [facility] Comment on above: Performed By: #### U ARFX #### [address] [id number] Color (U) YELLOW See Below [facility] Work Phone: Comment on above: Reference Range: STR AW,YELLOW Glucose Ql (U) Negative NEGATIVE [facility] Work Phone: [phone] Ketones Ql (U) Negative NEGATIVE [facility] Work Phone: [phone] Leukocyte esterase Test strip Ql (U) Negative NEGATIVE [facility] Work Phone: pH (U) 6.0 [pH] 5.0 - 8.0 [facility] Work Phone: [phone] Protein (U) [Mass/Vol] Negative NEGATIVE [facility] Work Phone: [phone] RBC (U) [#/Vol] Negative NEGATIVE [facility] Work Phone: Specific gravity (U) [Rel density] 1.010 1 See Below [facility] Work Phone: Comment on above: Reference Range: 1.0 05 - 1.035 URINALYSIS WITH CULTURE IF INDICATED Negative NEGATIVE [facility] Work Phone: URINALYSIS WITH CULTURE IF INDICATED <2.0 0.0 - 1.[address] [facility] Work Phone: URINALYSIS WITH CULTURE IF INDICATED CLEAR CLEAR [facility] Work Phone: Established Visit (Orthopaed ic Surgery)on 09-19-2022 Established Visit (Orthopaedic Surgery) Orders Back pain, Other intervertebral disc degeneration, lumbar region Thompson Back Brace; Status:Need Information - Financial Authorization; Requested for:[id number]; Osteogenesic Stimulator; Status:Active; Requested for:[id number]; Provider Impressions Assessment: At this time, I [...] included)... Normal [employer] Initial Visit (Orthopaedic [facility])on 08-23-2022 Initial Visit (Orthopaedic Surgery) Provider [...] plates and the interbody cage is a Ralston cage. He currently has stenosis at L2-L3 [...] back pain with RT sided pain to ale x 2 months. h/o sx in 1998. thoracic and lumbar xrays and MRI in [place]. brought a disc. History of Present IllnessToriry is a new patient to us, new [...] to the pain management center down in [place]. Review of Systems Review of systems, past [...] XR Lumbar spine AP and Lateral Normal [facility] Work Phone: SPINE, LUMBOSACRAL 2 OR 3 EWSon 08-23-2022 SPINE, LUMBOSACRAL 2 OR 3 VIEWS Patient Name: ERIK MORALES STUDY: SPINE, LUMBOSACRAL; 2 OR 3 VIEWS; ; 08/23/2022 1:37 pm INDICATION: pain M51.36: Other intervertebral disc degeneration, lumbar region M54.9: Back pain. ACCESSION NUMBER(S): [id number] ORDERING CLINICIAN: CURTIS MELÉNDEZ FINDINGS: Flexion-extension x-rays [...] Electronically signed by: CURTIS MELÉNDEZ MD Normal [facility] VASC LAB Abdominal Aorta/Nancy ac/IVC Ultraon 07-31-2022 VASC LAB Abdominal Aorta/Iliac/IVC Ultra [address], [address] [place] [address] Vascular Lab Report Abdominal Aorta Iliac Ultrasound/IVC Ultrasound Patient Name: ERIK Mckoy Physician: [id number] Cecilio Go MD, [facility] Study Date: 07/31/2022 Referring CECILIO GO Physician: MRN/PID: [id number] PCP: Carmen Witt Accession/Order#: [id number] CC Report to: Date of : 1955 Technologist: Karol Maxton RDCS, RVT Gender: M Technologist 2: Admission Status: Outpatient Location Performed: [facility] Diagnosis/ICD: I71.43-Infrarenal abdominal aortic aneurysm, without rupture Indication: HTN, Hyperlipidemia, Obesity, Former Smoker, Dyspnea, Pulmonary Fibrosis Procedure/CPT: 32725 Duplex Aorta/IVC/Iliac/Bypass Graft-[id number] CONCLUSIONS: Aorta/Common Iliac Arteries/IVC: Infrarenal fusiform abdominal [...] Proximal 0.71 cm 0.96 cm 0.96 cm/s [id number] Cecilio Go MD, FACC Final Normal [facility] VASC LAB Abdominal Aorta/Nancy ac/IVC Ultrasoundon 07-31-2022 VASC LAB Abdominal Aorta/Iliac/IVC Ultrasound [facility] [facility] DO Work Phone: XR [...] IRAIS LORENZANA Date: 2022-07-02 13:50 Normal [facility] Office Visit (Cardiology)on 06-04-2022 Follow-up [...] Weight Tips; Status:Complete - Retrospective Authorization; Done: [id number] Some eating tips that can help you lose weight.; Status:Complete - Retrospective Authorization; Done: [id number] SocHx: Former smoker Tobacco Use Screening; Status:Complete; Done: [id number] Patient Instructions Please bring all medicines, vitamins, [...] rashes. Neurologic (more content not included)... Normal [employer] Tobacco Screening.on 023 Adult depression screening assessment No [facility] [employer] 250 DO Work Phone: Fall risk assessment a) No falls within the last year [facility] [employer] 250 DO Work Phone: Tobacco use status CPHS b) No [facility] [employer] 250 DO Work Phone: CREATININEon 02-18-2022 Creatinine [Mass/Vol] 1.23 mg/dL Normal 0.70-1.30 [facility] Comment on above: Performed By: #### E RUR #### [facility] [address] [address] [address] Arielle Biswas EGFR-AF SWISS >60 Normal >=60 [facility] Comment on above: Performed By: #### E RUR #### [facility] [address] [address] [address] Arielle Biswas EGFR-NON AF SWISS 59 mL/min/1.73m2 Critically low >=60 [facility] Comment on above: Performed By: #### E RUR #### [facility] [address] [address] [address] CHEST W CONon [...] BRITANY TSANG Date: 2022-02-18 15:28 Normal [facility] Office Visit (Cardiology)on 12-11-2021 Follow-up [...] Former smoker Tobacco Use Screening; Status:Complete; Done: [id number] Patient Instructions Please bring all medicines, vitamins, [...] pulmonary embolism. Recently follow-up CT scan at [facility] revealed resolution of the pulmonary emboli. Some other pathology was noted with densities requiring follow-up imaging in 3 to 6 months which has been arranged through his PCP. He is currently anticoagulated with Eliquis. The patient is contemplating further dental work in December which he should be able to hold anticoagulation prior to. Recent nuclear stress test at [facility] was reviewed and shared with the patient and was normal. He is also known to have normal ejection fraction. He currently has no complaint to report physical examination was only remarkable for 8 pounds weight gain from last visit. He is now in the obesity range recent medical record from [facility] were reviewed with the patient [...] palpitations, but (more content not included)... Normal [employer] Tobacco Screening.on 10-18-2 022 Fall risk assessment a) No falls within the last year [facility] [facility] DO Work Phone: Tobacco use status CP b) No [facility] [facility] DO Work Phone: Tobacco Screening. Yes [facility] 250 DO Work [...] by: BRITANY TSANG Date: 2021-11-05 11:08 Normal [facility] NM STRESS/REST MULTIon 10-17 NM STRESS/REST MULTI Patient: ERIK MORALES Exam Date: 10/17/2021 : 1955 Gender:M Ordering : DR CARMEN WITT . Admission #: [id number] Family : Order #: [id number] CLICK HERE TO VIEW EXAM RADIOLOGY REPORT [...] M.D. on 10/17/2021 at 13:48 Normal [facility] T4, T3U, FTI LABCORPon 10-10 Free Thyroxine Index 2.1 Normal 1.2-4.9 [facility] Comment on above: Performed By: #### E RUR #### [facility] [address] [place] [address] Dr. Arielle Biswas T3 Uptake 28 % Normal 24-39 [facility] Comment on above: Performed By: #### E RUR #### [facility] [address] [address] [address] Arielle Biswas T4 [Mass/Vol] 7.5 ug/dL Normal 4.5-12.0 [facility] Comment on above: Performed By: #### E RUR #### [facility] [address] [address] [address] Arielle Biswas BNPon 10-09-2021 Natriuretic peptide B (Bld) [Mass/Vol] 319.0 pg/mL Normal <=900.0 [facility] Comment on above: Performed By: #### B BAGGAGE INSPECTOR, TSH, CMP #### [facility] [address] [place] [address] Dr. Arielle Biswas CBC AUTO DIFFon 10-09-2021 BASO # 0.1 103/ul Normal 0.0-0.1 [facility] Comment on above: Performed By: #### C BC #### [facility] [address] [place] [address] Dr. Arielle Biswas Basophils/100 WBC (Bld) 1.3 % Normal 0.2-2.0 [facility] Comment on above: Performed By: #### C BC #### [facility] [address] [place] [address] Dr. Arielle Biswas EO # 0.2 103/ul Normal 0.0-0.7 [facility] Comment on above: Performed By: #### C BC #### [facility] [address] [place] [address] Dr. Arielle Biswas Eosinophils/100 WBC (Bld) 3.0 % Normal 0.9-7.0 [facility] Comment on above: Performed By: #### C BC #### [facility] [address] [place] [address] Dr. Arielle Biswas Erythrocyte distribution width (RBC) [Ratio] 13.5 % Normal 11.0-15.0 [facility] Comment on above: Performed By: #### C BC #### [facility] [address] [place] [address] Dr. Arielle Biswas Hematocrit (Bld) [Volume fraction] 41.8 % Critically low 42.0-54.0 [facility] Comment on above: Performed By: #### C BC #### [facility] [address] [place] [address] Dr. Arielle Biswas Hemoglobin (Bld) [Mass/Vol] 13.6 g/dL Critically low 14.0-18.0 [facility] Comment on above: Performed By: #### C BC #### [facility] [address] [place] [address] Dr. Arielle Biswas IG # 0.03 10e3/ul Normal 0.00-0.03 [facility] Comment on above: Performed By: #### C BC #### [facility] [address] [place] [address] Dr. Arielle Biswas IG % 0.4 % Normal 0.0-0.5 [facility] Comment on above: Performed By: #### C BC #### [facility] [address] [place] [address] Dr. Arielle Biswas LYMPH # 1.2 103/ul Normal 1.2-3.8 [facility] Comment on above: Performed By: #### C BC #### [facility] [address] [place] [address] Dr. Arielle Biswas Lymphocytes/100 WBC (Bld) 16.5 % Critically low 20.5-60.0 [facility] Comment on above: Performed By: #### C BC #### [facility] [address] [place] [address] Dr. Arielle Biswas MANUAL DIFF REQ NO Normal [facility] Comment on above: Performed By: #### C BC #### [facility] [address] [place] [address] Dr. Arielle Biswas MCH (RBC) [Entitic mass] 31.2 pg Normal 25.9-34.0 [facility] Comment on above: Performed By: #### C BC #### [facility] [address] [place] [address] Dr. Arielle Biswas MCHC (RBC) [Mass/Vol] 32.5 g/dL Normal 29.9-35.2 [facility] Comment on above: Performed By: #### C BC #### [facility] [address] [place] [address] Dr. Arielle Biswas MCV (RBC) [Entitic vol] 95.9 fL Critically high 80.0-94.0 [facility] Comment on above: Performed By: #### C BC #### [facility] [address] [place] [address] Dr. Arielle Biswas MONO # 0.8 103/ul Normal 0.3-0.8 [facility] Comment on above: Performed By: #### C BC #### [facility] [address] [place] [address] Dr. Arielle Biswas Monocytes/100 WBC (Bld) 11.5 % Normal 1.7-12.0 [facility] Comment on above: Performed By: #### C BC #### [facility] [address] [place] [address] Dr. Arielle Biswas NEUT # 4.7 103/ul Normal 1.4-6.5 [facility] Comment on above: Performed By: #### C BC #### [facility] [address] [place] [address] Dr. Arielle Biswas Neutrophils/100 WBC (Bld) 67.3 % Normal 43.0-75.0 [facility] Comment on above: Performed By: #### C BC #### [facility] [address] [place] [address] Dr. Arielle Biswas Platelet mean volume (Bld) [Entitic vol] 10.2 fL Normal 9.5-13.5 [facility] Comment on above: Performed By: #### C BC #### [facility] [address] [place] [address] Dr. Arielle Biswas PLT 243 103/ul Normal 150-450 [facility] Comment on above: Performed By: #### C BC #### [facility] [address] [place] [address] Dr. Arielle Biswas RBC 4.36 106/ul Critically low 4.70-6.10 [facility] Comment on above: Performed By: #### C BC #### [facility] [address] [place] [address] Dr. Arielle Biswas WBC 7.0 103/ul Normal 4.0-11.0 [facility] Comment on above: Performed By: #### C BC #### [facility] [address] [place] [address] Dr. Arielle Biswas D-DIMERon 10-09-2021 D-DIMER 0.30 mg/L FEU Normal <=0.59 [facility] Comment on above: Performed By: #### E RUR #### [facility] [address] [place] [address] Dr. Arielle Biswas D-DIMER COMMENTS SEE BELOW Normal [facility] Comment on above: Result Comment: Incr eases [...] hospitalization. Performed By: #### E RUR #### [facility] [address] [place] [address] Dr. Arielle Biswas PROF 14(COMP METB)on 022 Albumin [Mass/Vol] 3.0 g/dL Critically low 3.4-5.[address] [facility] Comment on above: Performed By: #### B BAGGAGE INSPECTOR, TSH, CMP #### [facility] [address] [place] [address] Dr. Arielle Biswas Albumin/Globulin [Mass ratio] 0.8 {ratio} Normal [facility] Comment on above: Performed By: #### B BAGGAGE INSPECTOR, TSH, CMP #### [facility] [address] [place] [address] Dr. Arielle Biswas ALP [Catalytic activity/Vol] 120 U/L Critically high 46-116 [facility] Comment on above: Performed By: #### B BAGGAGE INSPECTOR, TSH, CMP #### [facility] [address] [place] [address] Dr. Arielle Biswas ALT [Catalytic activity/Vol] 21 U/L Normal 16-63 [facility] Comment on above: Performed By: #### B BAGGAGE INSPECTOR, TSH, CMP #### [facility] [address] [place] [address] Dr. Arielle Biswas Anion gap [Moles/Vol] 9.9 mmol/L Normal [facility] Comment on above: Performed By: #### B BAGGAGE INSPECTOR, TSH, CMP #### [facility] [address] [place] [address] Dr. Arielle Biswas AST [Catalytic activity/Vol] 20 U/L Normal 15-37 [facility] Comment on above: Performed By: #### B BAGGAGE INSPECTOR, TSH, CMP #### [facility] [address] [place] [address] Dr. Arielle Biswas Bilirubin [Mass/Vol] 0.6 mg/dL Normal 0.2-1.0 [facility] Comment on above: Performed By: #### B BAGGAGE INSPECTOR, TSH, CMP #### [facility] [address] [place] [address] Dr. Arielle Biswas Calcium [Mass/Vol] 8.8 mg/dL Normal 8.5-10.1 [facility] Comment on above: Performed By: #### B BAGGAGE INSPECTOR, TSH, CMP #### [facility] [address] [place] [address] Dr. Arielle Biswas Chloride [Moles/Vol] 103 mmol/L Normal 98-107 [facility] Comment on above: Performed By: #### B BAGGAGE INSPECTOR, TSH, CMP #### [facility] [address] [place] [address] Dr. Arielle Biswas CO2 [Moles/Vol] 29.0 mmol/L Normal 21.0-32.0 [facility] Comment on above: Performed By: #### B BAGGAGE INSPECTOR, TSH, CMP #### [facility] [address] [place] [address] Dr. Arielle Biswas Creatinine [Mass/Vol] 1.23 mg/dL Normal 0.70-1.30 [facility] Comment on above: Performed By: #### B BAGGAGE INSPECTOR, TSH, CMP #### [facility] [address] [place] [address] Dr. Arielle Biswas EGFR-AF SWISS >60 Normal >=60 [facility] Comment on above: Performed By: #### B BAGGAGE INSPECTOR, TSH, CMP #### [facility] [address] [address] [address] Arielle Biswas EGFR-NON AF SWISS 59 mL/min/1.73m2 Critically low >=60 [facility] Comment on above: Performed By: #### B BAGGAGE INSPECTOR, TSH, CMP #### [facility] [address] [place] [address] Dr. Arielle Biswas Globulin (S) [Mass/Vol] 3.7 g/dL Normal [facility] Comment on above: Performed By: #### B BAGGAGE INSPECTOR, TSH, CMP #### [facility] [address] [place] [address] Dr. Arielle Biswas Glucose [Mass/Vol] 95 mg/dL Normal 74-106 [facility] Comment on above: Performed By: #### B BAGGAGE INSPECTOR, TSH, CMP #### [facility] [address] [place] [address] Dr. Arielle Biswas Potassium [Moles/Vol] 3.9 mmol/L Normal 3.5-5.1 [facility] Comment on above: Performed By: #### B BAGGAGE INSPECTOR, TSH, CMP #### [facility] [address] [place] [address] Dr. Arielle Biswas Protein [Mass/Vol] 6.7 g/dL Normal 6.4-8.2 [facility] Comment on above: Performed By: #### B BAGGAGE INSPECTOR, TSH, CMP #### [facility] [address] [place] [address] Dr. Arielle Biswas Sodium [Moles/Vol] 138 mmol/L Normal 136-145 [facility] Comment on above: Performed By: #### B BAGGAGE INSPECTOR, TSH, CMP #### [facility] [address] [place] [address] Dr. Arielle Biswas Urea nitrogen [Mass/Vol] 13.0 mg/dL Normal 7.0-18.0 [facility] Comment on above: Performed By: #### B BAGGAGE INSPECTOR, TSH, CMP #### [facility] [address] [place] [address] Dr. Arielle Biswas Urea nitrogen/Creatinine [Mass ratio] 10.6 mg/mg Normal [facility] Comment on above: Performed By: #### B BAGGAGE INSPECTOR, TSH, CMP #### [facility] [address] [address] [address] Arielle Biswas TSHon 10-09-2021 TSH 0.393 uIU/mL Normal 0.358-3.740 [facility] Comment on above: Performed By: #### B BAGGAGE INSPECTOR, TSH, CMP #### [facility] [address] [place] [address] Dr. Arielle Biswas Tobacco Screening.on 022 Adult depression screening assessment No [facility] [place] [address] DO Work Phone: Fall risk assessment a) No falls within the last year [facility] [place] [facility] DO Work Phone: Tobacco use status [facility]PHS b) No [facility] [place] [facility] DO Work Phone: CARDIAC DAVON 3-6on 2 CK [Catalytic activity/Vol] 80 U/L Normal 39-308 [facility] Comment on above: Performed By: #### E RUR #### [facility] [address] [place] [address] Dr. Arielle Biswas CK.MB [Mass/Vol] 2.19 ng/mL Normal <=3.60 [facility] Comment on above: Performed By: #### E RUR #### [facility] [address] [place] [address] Dr. Arielle Biswas HSTROP 152.1 pg/mL Critically high 4.0-76.1 [facility] Comment on above: Result Comment: CUT- OFF POINTS HAVE BEEN ESTABLISHED BASED ON THE FOURTH UNIVERSAL DEFINITIONS OF MYOCARDIAL INFARCTION. THE UPPER REFERENCE LIMIT (URL) OF TROPONIN, DEFINED THE 99TH PERCENTILE OF cTnI DISTRIBUTION IN A REFERENCE POPULATION, HAS BEEN CONFIRMED THE DECISION THRESHOLD FOR [place] DIAGNOSIS. repeated Performed By: #### E RUR #### [facility] [address] [place] [address] Dr. Arielle Biswas CARDIAC DAVON ADMITon 022 CK [Catalytic activity/Vol] 32 U/L Critically low 39-308 [facility] Comment on above: Performed By: #### B MP, MANJULADM #### [facility] [address] [place] [address] Dr. Arielle Biswas CK.MB [Mass/Vol] 2.01 ng/mL Normal <=3.60 [facility] Comment on above: Performed By: #### B FRANKLYN, MANJULADM #### [facility] [address] [place] [address] Dr. Arielle Biswas HSTROP 144.5 pg/mL Critically high 4.0-76.1 [facility] Comment on above: Result Comment: CUT- OFF POINTS HAVE BEEN ESTABLISHED BASED ON THE FOURTH UNIVERSAL DEFINITIONS OF MYOCARDIAL INFARCTION. THE UPPER REFERENCE LIMIT (URL) OF TROPONIN, DEFINED THE 99TH PERCENTILE OF cTnI DISTRIBUTION IN A REFERENCE POPULATION, HAS BEEN CONFIRMED THE DECISION THRESHOLD FOR [place] DIAGNOSIS. repeated Performed By: #### B AMANDA ESTES #### [facility] [address] [place] [address] Dr. Arielle Biswas PJ 39 ng/mL Normal 16-96 [facility] Comment on above: Performed By: #### B MANJULA ESTESDM #### [facility] [address] [place] [address] Dr. Arielle Biswas CBC AUTO DIFFon 07-14-2021 BASO # 0.1 103/ul Normal 0.0-0.1 [facility] Comment on above: Performed By: #### E RUR #### [facility] [address] [place] [address] Dr. Arielle Biswas Basophils/100 WBC (Bld) 0.5 % Normal 0.2-2.0 [facility] Comment on above: Performed By: #### E RUR #### [facility] [address] [place] [address] Dr. Arielle Biswas EO # 0.1 103/ul Normal 0.0-0.7 [facility] Comment on above: Performed By: #### E RUR #### [facility] [address] [place] [address] Dr. Arielle Biswas Eosinophils/100 WBC (Bld) 0.6 % Critically low 0.9-7.0 [facility] Comment on above: Performed By: #### E RUR #### [facility] [address] [address] [address] Arielle Biswas Erythrocyte distribution width (RBC) [Ratio] 14.6 % Normal 11.0-15.0 [facility] Comment on above: Performed By: #### E RUR #### [facility] [address] [place] [address] Dr. Arielle Biswas Hematocrit (Bld) [Volume fraction] 45.5 % Normal 42.0-54.0 [facility] Comment on above: Performed By: #### E RUR #### [facility] [address] [place] [address] Dr. Arielle Biswas Hemoglobin (Bld) [Mass/Vol] 14.5 g/dL Normal 14.0-18.0 [facility] Comment on above: Performed By: #### E RUR #### [facility] [address] [place] [address] Dr. Arielle Biswas IG # 0.13 10e3/ul Critically high 0.00-0.03 [facility] Comment on above: Performed By: #### E RUR #### [facility] [address] [place] [address] Dr. Arielle Biswas IG % 0.8 % Critically high 0.0-0.5 [facility] Comment on above: Performed By: #### E RUR #### [facility] [address] [place] [address] Dr. Arielle Biswas LYMPH # 1.4 103/ul Normal 1.2-3.8 [facility] Comment on above: Performed By: #### E RUR #### [facility] [address] [place] [address] Dr. Arielle Biswas Lymphocytes/100 WBC (Bld) 8.7 % Critically low 20.5-60.0 [facility] Comment on above: Performed By: #### E RUR #### [facility] [address] [place] [address] Dr. Arielle Biswas MANUAL DIFF REQ NO Normal [facility] Comment on above: Performed By: #### E RUR #### [facility] [address] [address] [address] Arielle Biswas MCH (RBC) [Entitic mass] 30.5 pg Normal 25.9-34.0 [facility] Comment on above: Performed By: #### E RUR #### [facility] [address] [place] [address] Dr. Arielle Biswas MCHC (RBC) [Mass/Vol] 31.9 g/dL Normal 29.9-35.2 [facility] Comment on above: Performed By: #### E RUR #### [facility] [address] [place] [address] Dr. Arielle Biswas MCV (RBC) [Entitic vol] 95.6 fL Critically high 80.0-94.0 [facility] Comment on above: Performed By: #### E RUR #### [facility] [address] [place] [address] Dr. Arielle Biswas MONO # 1.1 103/ul Critically high 0.3-0.8 [facility] Comment on above: Performed By: #### E RUR #### [facility] [address] [place] [address] Dr. Arielle Biswas Monocytes/100 WBC (Bld) 7.1 % Normal 1.7-12.0 [facility] Comment on above: Performed By: #### E RUR #### [facility] [address] [place] [address] Dr. Arielle Biswas NEUT # 12.9 103/ul Critically high 1.4-6.5 [facility] Comment on above: Performed By: #### E RUR #### [facility] [address] [place] [address] Dr. Arielle Biswas Neutrophils/100 WBC (Bld) 82.3 % Critically high 43.0-75.0 [facility] Comment on above: Performed By: #### E RUR #### [facility] [address] [place] [address] Dr. Arielle Biswas Platelet mean volume (Bld) [Entitic vol] 9.7 fL Normal 9.5-13.5 [facility] Comment on above: Performed By: #### E RUR #### [facility] [address] [place], [place] [address] Dr. Arielle Biswas PLT 206 103/ul Normal 150-450 [facility] Comment on above: Performed By: #### E RUR #### [facility] [address] [place], [place] [address] Dr. Arielle Biswas RBC 4.76 106/ul Normal 4.70-6.10 [facility] Comment on above: Performed By: #### E RUR #### [facility] [address] [place], [place] [address] Dr. Arielle Biswas WBC 15.6 103/ul Critically high 4.0-11.0 [facility] Comment on above: Performed By: #### E RUR #### [facility] [address] [id number] Arielle Biswas CTA CHEST WO W [...] H (more content not included)... Normal [facility] Covid-19 PCR (CVDTB)on 06-25 SARS-CoV-2 (COVID-19) RNA ELKIN+probe Ql (Unsp spec) Not detected Normal NOT DETECTED [facility] Comment on above: Result Comment: When diagnostic testing is negative, the possibility of a false negative should be considered in the context of a patient's recent exposures and the presence of clinical signs and symptoms consistent with SARS-CoV-2. This test is not yet approved or cleared by the [place] Food and Drug Administration (FDA). This test was developed by [employer], [place], [place]. The performance characteristics of this test were validated by [facility]. The results are not intended to be used as the sole means for clinical diagnosis or patient management decisions. [facility] is authorized under Clinical Laboratory [...] for this test is supported by the [employer] of Health and Human Service's declaration that [...] used). Performed By: #### E RUR #### [facility] [address] [place] [address] Dr. Arielle Biswas ER URINE PROFILEon 2 Bilirubin Ql (U) Negative Normal NEGATIVE [facility] Comment on above: Performed By: #### E RUR #### [facility] [address] [place] [address] Dr. Arielle Biswas Clarity (U) CLEAR Normal CLEAR [facility] Comment on above: Performed By: #### E RUR #### [facility] [address] [place] [address] Dr. Arielle Biswas Color (U) LT. YELLOW Normal YELLOW [facility] Comment on above: Performed By: #### E RUR #### [facility] [address] [place] [address] Dr. Arielle Biswas ERUAHD A micrscopic examina tion will be performed if indicated. Normal [facility] Comment on above: Performed By: #### E RUR #### [facility] [address] [place] [address] Dr. Arielle Biswas Glucose Ql (U) Negative Normal NEGATIVE [facility] Comment on above: Performed By: #### E RUR #### [facility] [address] [place] [address] Dr. Arielle Biswas Hemoglobin Ql (U) Negative Normal NEGATIVE [facility] Comment on above: Performed By: #### E RUR #### [facility] [address] [place] [address] Dr. Arielle Biswas Ketones Ql (U) Negative Normal NEGATIVE [facility] Comment on above: Performed By: #### E RUR #### [facility] [address] [place] [address] Dr. Arielle Biswas LEUKOCYTES Negative Normal NEGATIVE [facility] Comment on above: Performed By: #### E RUR #### [facility] [address] [place] [address] Dr. Arielle Biswas Nitrite Ql (U) Negative Normal NEGATIVE [facility] Comment on above: Performed By: #### E RUR #### [facility] [address] [place] [address] Dr. Arielle Biswas pH (U) 6.0 [pH] Normal 5-9 [facility] Comment on above: Performed By: #### E RUR #### [facility] [address] [place] [address] Dr. Arielle Biswas SPEC GRAVITY 1.005 Normal 1.005-<=1.[address] [place] [address] Comment on above: Performed By: #### E RUR #### [facility] [address] [place] [address] Dr. Arielle Biswas UA PROTEIN Negative Normal NEGATIVE/ TRACE [facility] Comment on above: Performed By: #### E RUR #### [facility] [address] [place] [address] Dr. Arielle Biswas UR MICRO IND NOT INDICATED Normal [facility] Comment on above: Performed By: #### E RUR #### [facility] [address] [place] [address] Dr. Arielle Biswas Urobilinogen Qn (U) 0.2 {Fernando'U}/dL Normal 0.2 - 1. 0 [facility] Comment on above: Performed By: #### E RUR #### [facility] [address] [place] [address] Dr. Arielle Biswas LACTATE/LACTIC ACIDon 2021 Lactate [Moles/Vol] 3.0 mmol/L Critically high 0.4-1.9 [facility] Comment on above: Result Comment: repe ated Performed By: #### E RUR #### [facility] [address] [place] [address] Dr. Arielle Biswas PROF CHEM 8 (BAS METB)on Anion gap [Moles/Vol] 14.0 mmol/L Normal [facility] Comment on above: Performed By: #### B FRANKLYN, AMANDA #### [facility] [address] [place] [address] Dr. Arielle Biswas Calcium [Mass/Vol] 8.9 mg/dL Normal 8.5-10.1 [facility] Comment on above: Performed By: #### B AMANDA ESTES #### [facility] [address] [place] [address] Dr. Arielle Biswas Chloride [Moles/Vol] 96 mmol/L Critically low 98-107 [facility] Comment on above: Performed By: #### B AMANDA ESTES #### [facility] [address] [place] [address] Dr. Arielle Biswas CO2 [Moles/Vol] 26.5 mmol/L Normal 21.0-32.0 [facility] Comment on above: Performed By: #### B AMANDA ESTES #### [facility] [address] [place] [address] Dr. Arielle Biswas Creatinine [Mass/Vol] 1.43 mg/dL Critically high 0.70-1.30 [facility] Comment on above: Performed By: #### B MANJULA ESTESDM #### [facility] [address] [place] [address] Dr. Arielle Biswas EGFR-AF SWISS 60 mL/min/1.73m2 Normal >=60 [facility] Comment on above: Performed By: #### B FRANKLYN, AMANDA #### [facility] [address] [place] [address] Dr. Arielle Biswas EGFR-NON AF SWISS 50 mL/min/1.73m2 Critically low >=60 [facility] Comment on above: Performed By: #### AMANDA Lindsay MP #### [facility] [address] [address] [address] Arielle Biswas Glucose [Mass/Vol] 122 mg/dL Critically high 74-106 [facility] Comment on above: Performed By: #### B FRANKLYN, CMADM #### [facility] [address] [address] [address] Arielle Biswas Potassium [Moles/Vol] 3.5 mmol/L Normal 3.5-5.1 [facility] Comment on above: Performed By: #### B FRANKLYN, CMADM #### [facility] [address] [address] [address] Arielle Biswas Sodium [Moles/Vol] 133 mmol/L Critically low 136-[address] [facility] Comment on above: Performed By: #### B FRANKLYN, CMADM #### [facility] [address] [place] [address] Dr. Arielle Biswas Urea nitrogen [Mass/Vol] 12.0 mg/dL Normal 7.0-18.0 [facility] Comment on above: Performed By: #### B FRANKLYN, MANJULADM #### [facility] [address] [place] [address] Dr. Arielle Biswas Urea nitrogen/Creatinine [Mass ratio] 8.4 mg/mg Normal [facility] Comment on above: Performed By: #### B FRANKLYN, CMADM #### [facility] [address] [place] [address] Dr. Arielle Biswas PROTIMEon 07-14-2021 INR Coag (PPP) [Relative time] 0.99 {INR} Normal [facility] Comment on above: Performed By: #### P TT, PT #### [facility] [address] [place] [address] Dr. Arielle Biswas INR GUIDELINES SEE BELOW Normal [facility] Comment on above: Result Comment: YANG RED INR: 2.0 - 3.0 CONDITIONS NOT LISTED BELOW 2.5 - 3.5 FOR PROSTHETIC HEART VALVE REPLACEMENT 2.5 - 3.5 RECURRENT THROMBOSIS Performed By: #### P TT, PT #### [facility] [address] [place] [address] Dr. Arielle Biswas PT Coag (PPP) [Time] 10.7 s Normal 9.0-11.6 [facility] Comment on above: Performed By: #### P TT, PT #### [facility] [address] [address] [address] Arielle Biswas PTTon 07-14-2021 aPTT Coag (Bld) [Time] 26.6 s Normal 22.3-36.2 [facility] Comment on above: Performed By: #### P TT, PT #### [facility] [address] [address] [address] Arielle Biswas Tobacco Screening.on 022 Fall risk assessment a) No falls within the last year [facility] [place] [address] DO Work Phone: Tobacco use status CPHS b) No [facility] [place] [facility] DO Work Phone: Tobacco Screening. Yes [facility] [facility] DO Work Phone: [phone] Tobacco Screening.on 021 Fall risk assessment a) No falls within the last year [facility] [place] [facility] DO Work Phone: [phone] Tobacco use status CPHS b) No [facility] [place] [facility] DO Work Phone: [phone] Tobacco Screening.on 021 Fall risk assessment a) No falls within the last year [facility] [place] [facility] DO Work Phone: Tobacco use status CPHS b) No [facility] [place] [facility] DO Work Phone: [phone] Vital Signs Date Time Vital Sign Value Performing Clinician Facility 08-20-2024 14:47-0400 Body height 175.3 cm Cecilio Go MD Work Phone: [facility] 08-20-2024 14:47-0400 Body mass index (BMI) [Ratio] 30.42 kg/m2 Cecilio Go MD Work Phone: [facility] 08-20-2024 14:47-0400 Body weight 93.44 kg Cecilio Go MD Work Phone: [facility] 08-20-2024 14:47-0400 Diastolic blood pressure 60 mm[Hg] Cecilio Go MD Work Phone: [facility] 08-20-2024 14:47-0400 Heart rate 72 /min Cecilio Go MD Work Phone: [facility] 08-20-2024 14:47-0400 Systolic blood pressure 104 mm[Hg] Cecilio Go MD Work Phone: [facility] 03-29-2024 11:47-0500 Blood Pressure Location ALAN HURST [facility] 03-29-2024 11:47-0500 Diastolic blood pressure 86 mm[Hg] ALAN HURST [facility] 03-29-2024 11:47-0500 Heart rate 88 /min ALAN NATALI [facility] 03-29-2024 11:47-0500 Systolic blood pressure 138 mm[Hg] ALAN NATALI [facility] 01-08-2024 10:04-0500 Body height 175.3 cm Cecilio Go MD Work Phone: [facility] 01-08-2024 10:04-0500 Body mass index (BMI) [Ratio] 30.72 kg/m2 Cecilio Go MD Work Phone: [facility] 01-08-2024 10:04-0500 Body weight 94.35 kg Cecilio Go MD Work Phone: [facility] 01-08-2024 10:04-0500 Diastolic blood pressure 82 mm[Hg] Cecilio Go MD Work Phone: [facility] 01-08-2024 10:04-0500 Heart rate 60 /min Cecilio Go MD Work Phone: [facility] 01-08-2024 10:04-0500 Systolic blood pressure 120 mm[Hg] Cecilio Go MD Work Phone: [facility] 11-17-2023 10:20-0400 Body height 175.26 cm MD Carmen Witt Work Phone: [facility] 11-17-2023 10:20-0400 Body mass index (BMI) [Ratio] 30.4 kg/m2 MD Carmen Witt Work Phone: [facility] 11-17-2023 10:20-0400 Body temperature 97.4 [degF] MD Carmen Wtit Work Phone: [facility] 11-17-2023 10:20-0400 Body weight 93.44 kg MD Carmen Witt Work Phone: [facility] 11-17-2023 10:20-0400 Diastolic blood pressure 83 mm[Hg] MD Carmen Witt Work Phone: [facility] 11-17-2023 10:20-0400 Heart rate 69 /min MD Carmen Witt Work Phone: [facility] 11-17-2023 10:20-0400 Respiratory rate 20 /min MD Carmen Witt Work Phone: [facility] 11-17-2023 10:20-0400 SaO2% (BldA) [Mass fraction] 95 % MD Carmen Witt Work Phone: [facility] 11-17-2023 10:20-0400 Systolic blood pressure 164 mm[Hg] MD Carmen Witt Work Phone: [facility] 08-21-2023 11:040 Body height 175.26 cm MD Carmen Witt Work Phone: [facility] 08-21-2023 11:11-0400 Body mass index (BMI) [Ratio] 29.9 kg/m2 MD Carmen Witt Work Phone: [facility] 08-21-2023 11:11-0400 Body temperature 96.1 [degF] MD Carmen Witt Work Phone: [facility] 08-21-2023 11:11-0400 Body weight 92.07 kg MD Carmen Witt Work Phone: [facility] 08-21-2023 11:11-0400 Diastolic blood pressure 80 mm[Hg] MD Carmen Witt Work Phone: [facility] 08-21-2023 11:11-0400 Heart rate 77 /min MD Carmen Witt Work Phone: [facility] 08-21-2023 11:11-0400 SaO2% (BldA) [Mass fraction] 97 % MD Carmen Witt Work Phone: [facility] 08-21-2023 11:11-0400 Systolic blood pressure 140 mm[Hg] MD Carmen Witt Work Phone: [facility] 04-09-2023 10:04-0500 Body height 175.26 cm MD Jean Nicholson Work Phone: [facility] 04-09-2023 10:04-0500 Body mass index (BMI) [Ratio] 29.9 kg/m2 MD Jean Nicholson Work Phone: [facility] 04-09-2023 10:04-0500 Body temperature 96.7 [degF] MD Jean Nicholson Work Phone: [facility] 04-09-2023 10:04-0500 Body weight 92.07 kg MD Jean Nicholson Work Phone: [facility] 04-09-2023 10:04-0500 Diastolic blood pressure 93 mm[Hg] MD Jean Nicholson Work Phone: [facility] 04-09-2023 10:04-0500 Heart rate 98 /min MD Jean Nicholson Work Phone: [facility] 04-09-2023 10:04-0500 Respiratory rate 20 /min MD Jean Nicholson Work Phone: [facility] 04-09-2023 10:04-0500 SaO2% (BldA) [Mass fraction] 100 % MD Jean Nicholson Work Phone: [facility] 04-09-2023 10:04-0500 Systolic blood pressure 152 mm[Hg] MD Jean Nicholson Work Phone: [facility] 12-23-2022 10:50-0400 Blood Pressure Location Marino SPEAR [facility] 12-23-2022 10:50-0400 Diastolic blood pressure 62 mm[Hg] Marino SPEAR [facility] 12-23-2022 10:50-0400 Heart rate 69 /min Marino SPEAR [facility] 12-23-2022 10:50-0400 Respiratory rate 16 /min Marino SPEAR [facility] 12-23-2022 10:50-0400 Systolic blood pressure 95 mm[Hg] Marino SPEAR [facility] 11-07-2022 10:56-0400 Body temperature 98.6 [degF] Carmen Hoy Other Phone: [facility] 11-07-2022 10:56-0400 Diastolic blood pressure 69 mm[Hg] Carmen Hoy Other Phone: [facility] 11-07-2022 10:56-0400 Heart rate 97 /min Carmen Hoy Other Phone: [facility] 11-07-2022 10:56-0400 Respiratory rate 16 /min Carmen Hoy Other Phone: [facility] 11-07-2022 10:56-0400 SaO2% (BldA) [Mass fraction] 96 % Carmen Hoy Other Phone: [facility] 11-07-2022 10:56-0400 Systolic blood pressure 113 mm[Hg] Carmen Hoy Other Phone: [facility] [facility] 10-30-2022 10:00-0400 Body height 175.26 cm Danna Violeta Other [employer] [facility] Other 10-30-2022 10:00-0400 Body mass index (BMI) [Ratio] 30.27 kg/m2 Danna Violeta Other [employer] Other 10-30-2022 10:00-0400 Body temperature 97 [degF] Danna Violeta Other [employer] Other 10-30-2022 10:00-0400 Body weight 92.99 kg Danna Violeta Other [employer] Other 10-30-2022 10:00-0400 Diastolic blood pressure 75 mm[Hg] Danna Violeta Other [employer] Other 10-30-2022 10:00-0400 Respiratory rate 20 /min Danna Violeta Other [employer] Other 10-30-2022 10:00-0400 SaO2% (BldA) [Mass fraction] 96 % Danna Violeta Other [employer] Other 10-30-2022 10:00-0400 Systolic blood pressure 116 mm[Hg] Danna Violeta Other [employer] Other 08-23-2022 12:57-0400 Body height 175.26 cm Carmen Witt Work Phone: [facility] [place] Work Phone: 08-23-2022 12:57-0400 Body mass index (BMI) [Ratio] 30.57 kg/m2 Carmen Gloriay Work Phone: [facility] [place] Work Phone: 08-23-2022 12:57-0400 Body surface area Derived from formula 2.1 m2 Carmen Gloriay Work Phone: [facility] [place] Work Phone: 08-23-2022 12:57-0400 Body weight 93.9 kg Carmen Witt Work Phone: [facility] [place] Work Phone: 08-20-2022 11:30-0400 Body height 175.26 cm Danna Violeta Other [employer] Other 08-20-2022 11:30-0400 Body mass index (BMI) [Ratio] 30.42 kg/m2 Danna Violeta Other [employer] Other 08-20-2022 11:30-0400 Body temperature 96.8 [degF] Danna Violeta Other [employer] Other 08-20-2022 11:30-0400 Body weight 93.44 kg Danna Violeta Other [employer] Other 08-20-2022 11:30-0400 Diastolic blood pressure 80 mm[Hg] Danna Violeta Other [employer] Other 08-20-2022 11:30-0400 Respiratory rate 20 /min Danna Violeta Other [employer] Other 08-20-2022 11:30-0400 SaO2% (BldA) [Mass fraction] 97 % Danna Violeta Other [employer] Other 08-20-2022 11:30-0400 Systolic blood pressure 142 mm[Hg] Danna Violeta Other [employer] Other 08-15-2022 09:30-0400 Body height 175.26 cm Bianka Rosszhang Other [employer] Other 08-15-2022 09:30-0400 Body mass index (BMI) [Ratio] 30.57 kg/m2 Bianka Rosszhang Other [employer] Other 08-15-2022 09:30-0400 Body temperature 96.7 [degF] Bianka Jose Other [employer] Other 08-15-2022 09:30-0400 Body weight 93.9 kg Bianka Jose Other [employer] Other 08-15-2022 09:30-0400 Diastolic blood pressure 70 mm[Hg] Bianka Garcia Other [employer] Other 08-15-2022 09:30-0400 SaO2% (BldA) [Mass fraction] 98 % Bianka Gacria Other [employer] Other 08-15-2022 09:30-0400 Systolic blood pressure 118 mm[Hg] Bianka Garcia Other [employer] Other 06-04-2022 11:33-0400 Body height 175.26 cm Carmen M Hoy Work Phone: [facility] DO Work Phone: 06-04-2022 11:33-0400 Body mass index (BMI) [Ratio] 30.13 kg/m2 Carmen M Hoy Work Phone: [facility] 250 DO Work Phone: 06-04-2022 11:33-0400 Body surface area Derived from formula 2.08 m2 Carmen M Hoy Work Phone: [facility] 250 DO Work Phone: 06-04-2022 11:33-0400 Body weight 92.53 kg Carmen M Hoy Work Phone: [facility] 250 DO Work Phone: 06-04-2022 11:33-0400 Diastolic blood pressure 72 mm[Hg] Carmen M Hoy Work Phone: [facility] 250 DO Work Phone: 06-04-2022 11:33-0400 Heart rate 68 /min Carmen M Hoy Work Phone: [facility] 250 DO Work Phone: 06-04-2022 11:33-0400 Systolic blood pressure 110 mm[Hg] Carmen M Hoy Work Phone: [facility] 250 DO Work Phone: 02-05-2022 15:30-0500 Body height 175.26 cm Danna Violeta Other [facility] Other 02-05-2022 15:30-0500 Body mass index (BMI) [Ratio] 29.97 kg/m2 Danna Violeta Other [employer] Other 02-05-2022 15:30-0500 Body temperature 98.4 [degF] Danna Violeta Other [employer] Other 02-05-2022 15:30-0500 Body weight 92.08 kg Danna Violeta Other [employer] Other 02-05-2022 15:30-0500 Diastolic blood pressure 83 mm[Hg] Danna Violeta Other [employer] Other 02-05-2022 15:30-0500 Respiratory rate 20 /min Danna Violeta Other [employer] Other 02-05-2022 15:30-0500 SaO2% (BldA) [Mass fraction] 96 % Danna Violeta Other [employer] Other 02-05-2022 15:30-0500 Systolic blood pressure 143 mm[Hg] Danna Violeta Other [employer] Other 12-11-2021 11:39-0400 Body height 175.26 cm Jean Saeed [employer] Work Phone: [employer] DO Work Phone: 12-11-2021 11:39-0400 Body mass index (BMI) [Ratio] 30.72 kg/m2 Jean Saeed [employer] Work Phone: [employer] DO Work Phone: 12-11-2021 11:39-0400 Body surface area Derived from formula 2.1 m2 Jean Saeed [employer] Work Phone: [employer] [place] [facility] 250 DO Work Phone: 12-11-2021 11:39-0400 Body weight 94.35 kg Jean Saeed Naderer Work Phone: [facility] 250 DO Work Phone: 12-11-2021 11:39-0400 Diastolic blood pressure 72 mm[Hg] Jean Saeed Naderer Work Phone: [facility] DO Work Phone: 12-11-2021 11:39-0400 Heart rate 72 /min Jean Saeed Naderer Work Phone: [facility] 250 DO Work Phone: 12-11-2021 11:39-0400 Systolic blood pressure 124 mm[Hg] Jean Saeed Naderer Work Phone: [facility] 250 DO Work Phone: 08-21-2021 15:00-0400 Body height 175.26 cm Danna Violeta Other [employer] Other 08-21-2021 15:00-0400 Body mass index (BMI) [Ratio] 28.35 kg/m2 Danna Violeta Other [employer] Other 08-21-2021 15:00-0400 Body temperature 97.5 [degF] Danna Violeta Other [employer] Other 08-21-2021 15:00-0400 Body weight 87.09 kg Danna Voileta Other [employer] Other 08-21-2021 15:00-0400 Diastolic blood pressure 70 mm[Hg] Danna Violeta Other [employer] Other 08-21-2021 15:00-0400 Respiratory rate 20 /min Danna Violeta Other [employer] Other 08-21-2021 15:00-0400 SaO2% (BldA) [Mass fraction] 94 % Danan Violeta Other [employer] Other 08-21-2021 15:00-0400 Systolic blood pressure 110 mm[Hg] Danan Violeta Other [employer] Other 08-15-2021 11:30-0400 Body height 175.26 cm Julian Matthews Other [employer] Other 08-15-2021 11:30-0400 Body mass index (BMI) [Ratio] 28.06 kg/m2 Julian Matthews Other [employer] Other 08-15-2021 11:30-0400 Body temperature 97.5 [degF] Julian Matthews Other [employer] Other 08-15-2021 11:30-0400 Body weight 86.18 kg Julian Matthews Other [employer] Other 08-15-2021 11:30-0400 Diastolic blood pressure 68 mm[Hg] Julian Matthews Other [employer] Other 08-15-2021 11:30-0400 SaO2% (BldA) [Mass fraction] 98 % Julian Matthews Other [employer] Other 08-15-2021 11:30-0400 Systolic blood pressure 102 mm[Hg] Julian Matthews Other [employer] Other 08-02-2021 08:32-0400 Body height 175.26 cm Jean A Naderer Work Phone: [facility] 250 DO Work Phone: 08-02-2021 08:32-0400 Body mass index (BMI) [Ratio] 28.8 kg/m2 Jean A Naderer Work Phone: [facility] 250 DO Work Phone: 08-02-2021 08:32-0400 Body surface area Derived from formula 2.04 m2 Jean A Naderer Work Phone: [facility] 250 DO Work Phone: 08-02-2021 08:32-0400 Body weight 88.45 kg Jean A Naderer Work Phone: [facility] DO Work Phone: 08-02-2021 08:32-0400 Diastolic blood pressure 62 mm[Hg] Jean A Naderer Work Phone: [facility] 250 DO Work Phone: 08-02-2021 08:32-0400 Heart rate 68 /min Jean A Naderer Work Phone: [facility] 250 DO Work Phone: 08-02-2021 08:32-0400 Systolic blood pressure 108 mm[Hg] Jean A Naderer Work Phone: [facility] 250 DO Work Phone: 07-14-2021 00:00-0400 60 1 Jean A Naderer Work Phone: [facility] 250 DO Work Phone: Comment on above: [id number] 04-30-2021 13:22-0500 Body height 175.26 cm Jean A Naderer Work Phone: [facility] 250 DO Work Phone: 04-30-2021 13:22-0500 Body mass index (BMI) [Ratio] 29.45 kg/m2 Jean Saeed Jackieerer Work Phone: [facility] 250 DO Work Phone: 04-30-2021 13:22-0500 Body surface area Derived from formula 2.06 m2 Jean Saeed Jackiee[employer] Work Phone: [facility] DO Work Phone: 04-30-2021 13:22-0500 Body weight 90.45 kg Jean Saeed Jackieerer Work Phone: [facility] 250 DO Work Phone: 04-30-2021 13:22-0500 Diastolic blood pressure 90 mm[Hg] Jean Saeed Jackieerer Work Phone: [facility] 250 DO Work Phone: 04-30-2021 13:22-0500 Heart rate 69 /min Jean aSeed Jackieerer Work Phone: [facility] 250 DO Work Phone: 04-30-2021 13:22-0500 Systolic blood pressure 134 mm[Hg] Jean Saeed Jackieerer Work Phone: [facility] 250 DO Work Phone: 02-20-2021 14:06-0500 Body height 175.26 cm Jean Saeed Naderer Work Phone: [facility] 250 DO Work Phone: 02-20-2021 14:06-0500 Body mass index (BMI) [Ratio] 29.98 kg/m2 Jean Saeed Jackieerer Work Phone: [facility] DO Work Phone: 02-20-2021 14:06-0500 Body surface area Derived from formula 2.08 m2 Jean Christophe Naderer Work Phone: [facility] 250 DO Work Phone: 02-20-2021 14:06-0500 Body weight 92.08 kg Jean A Naderer Work Phone: [facility] DO Work Phone: 02-20-2021 14:06-0500 Diastolic blood pressure 76 mm[Hg] Jean Saeed Naderer Work Phone: [facility] 250 DO Work Phone: 02-20-2021 14:06-0500 Heart rate 80 /min Jean Saeed Naderer Work Phone: [facility] 250 DO Work Phone: 02-20-2021 14:06-0500 Systolic blood pressure 110 mm[Hg] Jean Saeed Naderer Work Phone: [facility] 250 DO Work Phone: 02-06-2021 16:10-0500 Diastolic blood pressure 84 mm[Hg] Jean A Naderer Work Phone: [facility] DO Work Phone: 02-06-2021 16:10-0500 Systolic blood pressure 130 mm[Hg] Jean A Naderer Work Phone: [facility] 250 DO Work Phone: 02-06-2021 15:37-0500 Body height 175.26 cm Jean A Naderer Work Phone: [facility] DO Work Phone: 02-06-2021 15:37-0500 Body mass index (BMI) [Ratio] 30.13 kg/m2 Jean Saeed Naderer Work Phone: [facility] [employer] 250 DO Work Phone: 02-06-2021 15:37-0500 Body surface area Derived from formula 2.08 m2 Jean Saeed Naderer Work Phone: [facility] [employer] 250 DO Work Phone: 02-06-2021 15:37-0500 Body weight 92.53 kg Jean Saeed Naderer Work Phone: [facility] [employer] 250 DO Work Phone: 02-06-2021 15:37-0500 Diastolic blood pressure 90 mm[Hg] Jean Saeed Naderer Work Phone: [facility] [employer] 250 DO Work Phone: 02-06-2021 15:37-0500 Heart rate 125 /min Jean Saeed Naderer Work Phone: [facility] [employer] 250 DO Work Phone: 02-06-2021 15:37-0500 Systolic blood pressure 128 mm[Hg] Jean Saeed Naderer Work Phone: [facility] [employer] 250 DO Work Phone: 11-30-2020 11:30-0400 Body height 175.26 cm Danna Violeta Other [employer] Other 11-30-2020 11:30-0400 Body mass index (BMI) [Ratio] 29.68 kg/m2 Danna Violeta Other [employer] Other 11-30-2020 11:30-0400 Body weight 91.17 kg Danna Violeta Other [employer] Other 11-30-2020 11:30-0400 Diastolic blood pressure 83 mm[Hg] Danna Violeta Other [employer] Other 11-30-2020 11:30-0400 Respiratory rate 20 /min Danna Violeta Other [employer] Other 11-30-2020 11:30-0400 SaO2% (BldA) [Mass fraction] 98 % Danna Violeta Other [employer] Other 11-30-2020 11:30-0400 Systolic blood pressure 126 mm[Hg] Danna Violeta Other [employer] Other Encounters Encounter Date Encounter Type Care Provider Facility Start: 03-31-2025 ambulatory ALAN Colmenares ty:CHRISTIANO Werner Start: 03-24-2025 ambulatory ALAN Colmenares ty:CHRISTIANO [facility] Start: 10-07-2024 End: 10-07-2024 Subsequent hospital visit by physician Serene Agrawal Echo/Vasc Room 2 [facility] Comment on above: Abdominal aortic ane urysm (AAA) without rupture, unspecified part; Infrarenal abdominal aortic aneurysm (AAA) without rupture Start: 10-07-2024 End: 10-07-2024 [facility] Start: 08-20-2024 End: 08-20-2024 Office outpatient visit 25 minutes Cecilio Go MD Work Phone: [facility] Comment on above: Bilateral pulmonary embolism (Multi) (Primary Dx); High risk medication use; Shortness of breath; Essential hypertension; Mixed hyperlipidemia; Mitral valve insufficiency, unspecified etiology; Pulmonary fibrosis (Multi); Abdominal aortic aneurysm (AAA) without rupture, unspecified part; Class 1 obesity due to excess calories without serious comorbidity with body mass index (BMI) of 30.0 to 30.9 in adult; Former smoker; Infrarenal abdominal aortic aneurysm (AAA) without rupture Start: 08-20-2024 End: 08-20-2024 [facility] Start: 05-24-2024 End: 05-24-2024 ambulatory Maribell Leigh MD Facility:[facility] Start: 05-03-2024 End: 05-03-2024 ambulatory Maribell Leigh MD Facility:[facility] Start: 04-19-2024 End: 04-19-2024 ambulatory Maribell Leigh MD Facility:[facility] Start: 03-29-2024 End: 03-29-2024 ambulatory ALAN HURST Facility:[facility] Start: 03-29-2024 End: 03-29-2024 Patient encounter procedure ALAN HURST [facility] Start: 03-22-2024 End: 03-22-2024 ambulatory Marino SPEAR Facility:[facility] Start: 03-22-2024 End: 03-22-2024 Lab Drop off Marino SPEAR [facility] Start: 03-22-2024 End: 03-22-2024 ambulatory Marino SPEAR Facility:[facility] Start: 03-22-2024 End: 03-22-2024 Patient encounter procedure Marino SPEAR [facility] Start: 01-08-2024 End: 01-08-2024 Office outpatient visit 25 minutes Cecilio Go MD Work Phone: [facility] Comment on above: Essential hypertensi on; Mitral valve insufficiency, unspecified etiology; Pulmonary fibrosis (Multi); Pulmonary embolism, unspecified chronicity, unspecified pulmonary embolism type, unspecified whether acute cor pulmonale present (Multi); Mixed hyperlipidemia; Abdominal aortic aneurysm (AAA) without rupture, unspecified part (CMS-HCC); Lung crackles; Class 1 obesity due to excess calories without serious comorbidity with body mass index (BMI) of 30.0 to 30.9 in adult Start: 01-08-2024 End: 01-08-2024 ambulatory [facility] Ambulatory Start: 12-26-2023 ambulatory Marino Calabrese RAINER Colmenares ty:[facility] Start: 11-17-2023 End: 11-17-2023 ambulatory MD Carmen Witt Work Phone: [facility] Work Phone: Start: 11-17-2023 End: 11-17-2023 Patient encounter procedure MD Carmen Witt Work Phone: [facility] Work Phone: Start: 11-11-2023 End: 11-11-2023 Office outpatient visit 15 minutes Curtis Meléndez MD Work Phone: [facility] Comment on above: Lumbar pain (Primary Dx) Start: 11-11-2023 End: 11-11-2023 Subsequent hospital visit by physician Serene Ayers101 X-Ray 2 [facility] Comment on above: Lumbar pain Start: 11-11-2023 End: 11-11-2023 ambulatory [facility] Start: 09-22-2023 End: 09-22-2023 ambulatory Maribell Leigh MD Facility:[facility] Start: 08-21-2023 End: 08-21-2023 ambulatory MD Carmen Witt Work Phone: [facility] Work Phone: Start: 08-21-2023 End: 08-21-2023 Patient encounter procedure MD Carmen Witt Work Phone: [facility] Work Phone: Start: 06-03-2023 End: 06-03-2023 Office outpatient visit 15 minutes Curtis Meléndez MD Work Phone: [facility] Comment on above: Low back pain, unspe cified back pain laterality, unspecified chronicity, unspecified whether sciatica present (Primary Dx); Lumbar pain Start: 06-03-2023 End: 06-03-2023 Subsequent hospital visit by physician Serene Shetty X-Ray 2 [facility] Comment on above: Lumbar pain Start: 04-14-2023 End: 04-14-2023 Patient encounter procedure MD Jean Nicholson Work Phone: [facility] [address] Work Phone: Start: 04-14-2023 End: 04-14-2023 ambulatory MD Jean Nicholson Work Phone: [facility] Work Phone: Start: 04-09-2023 End: 04-09-2023 ambulatory MD Jean Nicholson Work Phone: [facility] Work Phone: Start: 04-09-2023 End: 04-09-2023 Patient encounter procedure MD Jean Nicholson Work Phone: [facility] Work Phone: Start: 03-04-2023 End: 03-04-2023 Patient encounter procedure MD Jean Nicholson Work Phone: [facility] Work Phone: Start: 03-04-2023 End: 03-04-2023 ambulatory MD Jean Nicholson Work Phone: [facility] Work Phone: Start: 02-28-2023 End: 02-28-2023 Office outpatient visit 15 minutes Curtis Meléndez MD Work Phone: [facility] Comment on above: Low back pain, unspe cified back pain laterality, unspecified chronicity, unspecified whether sciatica present (Primary Dx) Start: 12-23-2022 End: 12-23-2022 Patient encounter procedure Marino SPEAR [facility] Start: 11-19-2022 Patient encounter procedure Carmen Witt Work Phone[facility] Work Phone: Start: 11-19-[address] Curtis Meléndez Facility:[id number] Start: 11-04-2022 End: 11-07-2022 Evaluation and management of inpatient Curtis Miller [facility] 610 01 Start: 10-30-2022 End: 10-30-2022 ambulatory Danna Violeta Other [employer] Other Start: 10-30-2022 Office outpatient vi sit 25 minutes Danna Violeta [facility] Start: 10-22-2022 Patient encounter procedure Carmen Witt Work Phone: [facility] Work Phone: Start: 10-22-[address] Curtis Meléndez Facility:[id number] Start: 10-22-2022 Encounter for other preprocedural examination Dr. Curtis Meléndez [facility] Start: 10-21-[address] Carmen Witt Facility:[id number] Start: 10-21-2022 Encounter for preprocedural cardiovascular examination Dr. Curtis Meléndez [facility] Start: 10-21-2022 Encounter for preprocedural laboratory examination Dr. Curtis Meléndez [facility] Start: 09-19-2022 Patient encounter procedure Carmen Witt Work Phone: [facility] Work Phone: Start: 09-19-[address] Carmen Witt Facility:[id number] Start: 08-23-2022 Chart Update Carmen Witt Work Phone: [facility] [place] Work Phone: Start: 08-23-2022 Patient encounter procedure Carmen Witt Work Phone: [facility] Work Phone: Start: 08-23-[address] Carmen Witt Facility:[id number] Start: 08-20-2022 End: 08-20-2022 ambulatory Danna Violeta Other [facility] Other Start: 08-20-2022 Office outpatient vi sit 25 minutes Danna Violeta [facility] Start: 08-15-2022 End: 08-15-2022 Patient encounter procedure Bianka Merrittsrinivasan [facility] Start: 08-15-2022 End: 08-15-2022 ambulatory MD Jean Nicholson Work Phone: [facility] Other Start: 07-31-2022 Chart Update Carmen Witt Work Phone: [facility] 250 DO Work Phone: Start: 07-31-[address] Cecilio Go Facility:[id number] Start: 07-02-2022 End: 07-03-[address] IRAIS LORENZANA Facility:[facility]1 Start: 06-05-2022 AUDIT Carmen Witt Work Phone: [facility] Work Phone: Start: 06-04-2022 Patient encounter procedure [facility] Work Phone: Start: 06-04-[address] Carmen Witt Facility: Start: 05-09-2022 End: 05-10-2022 ambulatory LAUREN BAMUANN . Facility:[facility]1 Start: 04-19-2022 Rx Renewal Jean Nicholson Work Phone: [facility] 250 DO Work Phone: Start: 02-18-2022 End: 02-19-[address] BRITANY TSANG Facility:[facility]1 Start: 02-07-2022 End: 02-08-2022 ambulatory LAUREN BAUMANN . Facility:[facility] Start: 02-05-2022 End: 02-05-2022 ambulatory Danna Violeta Other [facility] Other Start: 02-05-2022 Office outpatient vi sit 25 minutes Danna Violeta [facility] Start: 12-20-2021 End: 12-21-[address] MARINO SPEAR . Facility:[facility]1 Start: 12-11-2021 Office outpatient vi sit 25 minutes Jean Nicholson Work Phone: [facility] 250 DO Work Phone: Start: 12-11-[address] Jean Nicholson Facility: Start: 11-27-2021 End: 11-28-[address] LORENA ANDERSON . Facility:[facility]1 Start: 11-27-2021 Rx Renewal [facility] Work Phone: Start: 11-05-2021 End: 11-06-[address] BRITANY TSANG Facility:[facility]1 Start: 10-17-2021 End: 10-18-[address] CARMEN WITT . Facility:[facility]1 Start: 10-12-2021 Rx Renewal Jean Nicholson Work Phone: [facility] 250 DO Work Phone: Start: 10-09-2021 End: 10-10-2021 ambulatory KATHERINE MARTINEZ Facility:[facility]1 Start: 08-30-2021 End: 08-31-2021 ambulatory LAUREN BAUMANN . Facility:[facility]1 Start: 08-21-2021 End: 08-21-2021 ambulatory Danna Violeta Other [facility] Other Start: 08-21-2021 Office outpatient vi sit 25 minutes Danna Violeta [facility] Start: 08-16-2021 End: 08-16-2021 ambulatory Bianka Garcia Other [facility] Other Start: 08-16-2021 Telephone encounter Bianka [facility] Start: 08-15-2021 End: 08-15-2021 ambulatory Julian Matthews Other [employer] Other Start: 08-15-2021 Office outpatient vi sit 25 minutes Julian Byron [facility] Start: 08-02-2021 Office outpatient vi sit 25 minutes Jean Saeed Naderer [email or web address] Work Phone: Start: 07-20-2021 End: 07-20-2021 ambulatory Bianka Garcia Other [facility] Other Start: 07-20-2021 Telephone encounter Bianka [facility] Start: 07-14-2021 End: 07-14-2021 ambulatory CYNDI KUNAL Facility: Start: 04-30-2021 Office outpatient vi sit 25 minutes Jean A Naderer [facility] Work Phone: Start: 03-26-2021 Rx Renewal Jean [facility] Work Phone: Start: 02-20-2021 Patient encounter procedure Jean [facility]rer [facility] Work Phone: Start: 11-30-2020 Office outpatient vi sit 25 minutes Danna Mcdaniel [facility] Pulmonary Disease Procedures Date Procedure Procedure Detail Performing Clinician Start: 10-07-2024 Dup-scan aorta ivc i liac vascl/bpgs complete Cecilio Go MD Work Phone: Start: 11-11-2023 Radex spine lumbosac ral 2/3 views Curtis Meléndez MD Work Phone: Start: 08-21-2023 US scan of aorta MD Mike Witt Work Phone: Start: 06-03-2023 Radex spine lumbosac ral 2/3 views Curtis Meléndez MD Work Phone: Start: 11-04-2022 Lumbar spinal fusion Keaton SPEAR Start: 12-20-2021 PSA screening LAUREN Olmstead Comment on above: Performed By: #### P SAD #### [facility] [address] [place] [address] Dr. Arielle Biswas Start: 07-14-2021 Operation for pulmon brian embolism Marino SPEAR Start: 03-21-2016 Radical prostatectomy P marino SPEAR Start: 01-15-2016 Cystoscopy Marino BATISTA Start: 01-15-2016 Transrectal biopsy o f prostate using ultrasound guidance Marino SPEAR Colonoscopy Jean A Naderer Work Phone: Comment on above: Feb 2017; Colonoscopy Marinoantoinette SPEAR Extraction of cataract Mario SPEAR Operation [...] Treatment Date Care Activity Detail Author Start: 12-21-2025 Pneumococcal vaccination Pneumococcal Vaccine (3 of 3 - PCV20 or PCV21) [facility] Start: 11-07-2025 Diabetes mellitus screening Diabetes Screening [facility] Start: 04-01-2025 End: 04-01-2025 Patient encounter procedure 04/01/2025 2:50 PM EST Office Visit [facility] [address] [facility] [address] [place] [address] Cecilio Go MD [address] [place] [address] [facility] Start: 02-19-2025 End: 08-20-2026 US Heart Transthoracic Transthoracic Echo Complete Echocardiography Routine Essential hypertension Mitral valve insufficiency, unspecified etiology Expected: 02/19/2025 (Approximate), Expires: 08/20/2026 [facility] Service Area Work Phone: Comment on above: Expected: 02/19/2025 (Approximate), Expires: 08/20/2026 Start: 02-19-2025 End: 08-20-2026 US.doppler Aorta and Iliac artery - bilateral Vascular US Aorta Iliac Duplex Complete Vascular Ultrasound Routine Abdominal aortic aneurysm (AAA) without rupture, unspecified part Infrarenal abdominal aortic aneurysm (AAA) without rupture Expected: 02/19/2025 (Approximate), Expires: 08/20/2026 [facility] Work Phone: Comment on above: Expected: 02/19/2025 (Approximate), Expires: 08/20/2026 Start: 01-03-2025 Pneumococcal Vaccine : 65+ Years (3 - PPSV23 or PCV20) Pneumococcal Vaccine: 65+ Years (3 - PPSV23 or PCV20) [facility] Start: 01-03-2025 Pneumococcal Vaccine : 65+ Years (3 of 3 - PPSV23 or PCV20) Pneumococcal Vaccine: 65+ Years (3 of 3 - PPSV23 or PCV20) [facility] Start: 11-03-2024 End: 11-03-2024 Patient encounter procedure 11/03/2024 12:30 PM EDT Appointment [place] [id number] [facility] [address] [place] [address] [facility] Start: 10-25-2024 Influenza vaccination Influenza Vacc ine (#1) [facility] Start: 10-07-2024 End: 10-07-2024 Patient encounter procedure 10/07/2024 7:45 AM EDT Appointment [place] [id number] [facility] [address] [place] [address] [facility] Start: 08-20-2024 End: 08-20-2024 Patient encounter procedure 08/20/2024 2:30 PM EDT Office Visit [address] [place] [address] Cecilio Go MD [address] [facility] [address] [place] [address] [facility] Start: 01-08-2024 End: 01-08-2024 Patient encounter procedure 01/08/2024 10:10 AM EST Office Visit [address] [place] [address] Cecilio Go MD [address] [facility] [address] [place] [address] [facility] Start: 12-05-2023 End: 12-05-2023 Patient encounter procedure 12/05/2023 1:30 PM EDT Office Visit [facility] [address] [place] [id number] Curtis Meléndez MD [address] [facility], [address] [place] [address], [place] [id number] [facility] Start: 10-26-2023 COVID-19 Vaccine () COVID-19 Vaccine () [facility] Start: 10-26-2023 COVID-19 Vaccine ( season) COVID-19 Vaccine ( season) [facility] Start: 10-26-2023 Influenza vaccination Influenza Vacc ine (#1) [facility] Start: 06-17-2023 End: 06-17-2023 Patient encounter procedure 06/17/2023 10:20 AM EDT Office Visit [facility] [address] [facility] [address] [place] [address] Cecilio Go MD [address] [place] [address] [facility] Start: 04-14-2023 CT Chest WO contrast Fi [facility] Start: 04-14-2023 CT of chest without contrast CT chest wo con high res [facility] Start: 02-28-2023 End: 02-29-2024 XR Lumbar spine 2 or 3 Views [facility] Service Area Work Phone: Comment on above: Expected: 02/28/2023 , Expires: 02/29/2024 Start: 12-10-2022 FUV, Provider: Cecilio Go, Status: Pen, Time: 11:10 AM FUV, Provider: Cecilio Go, Status: Pen, Time: 11:10 AM [facility] [address] DO Work Phone: Start: 12-09-2022 FUV, Provider: Cecilio Go, Status: Pen, Time: 3:00 PM FUV, Provider: Cecilio Go, Status: Pen, Time: 3:[address] [facility] Work Phone: Start: 12-09-2022 Patient encounter procedure [facility] [place] Start: 11-19-[address] [facility] Start: 11-19-2022 POV, Provider: Curtis Meléndez, Status: Pen, Time: 1:30 PM POV, Provider: Curtis Meléndez, Status: Pen, Time: 1:[address] [facility] Work Phone: Start: 11-05-2022 End: 11-05-2023 [facility] Start: 11-04-2022 End: 11-05-2023 [facility] Comment on above: If oral and IV lucita cotics ordered, use oral first and only use IV if oral is ineffective or cannot take oral. Do NOT give oral and IV within one hour of each other unless specificaly ordered. If NO result from Se nokot. Do NOT use with Senokot. Start: 11-04-2022 [facility], Provider: Curtis Meléndez, Status: Pen, Time: 7:30 AM [facility], Provider: Curtis Meléndez, Status: Deven, Time: 7:30 AM [facility] [place] Work Phone: Start: 10-25-2022 COVID-19 Vaccine ( season) COVID-19 Vaccine ( season) [facility] Start: 10-22-2022 [facility], Provider: Curtis Meléndez, Status: Pen, Time: 1:30 PM [facility], Provider: Curtis Meléndez, Status: Pen, Time: 1:30 PM [facility] [place] Work Phone: Start: 09-24-2022 FUV, Provider: Curtis Meléndez, Status: Pen, Time: 1:30 PM FUV, Provider: Curtis Meléndez, Status: Pen, Time: 1:30 PM [facility] [place] Work Phone: Start: 08-23-2022 NPV, Provider: Curtis Meléndez, Status: Pen, Time: 1:15 PM NPV, Provider: Curtis Meléndez, Status: Pen, Time: 1:15 PM -[facility] [address] DO Work Phone: Start: 08-15-2022 US scan of aorta US aorta [facility] Start: 08-15-2022 US Thoracic and abdominal aorta [facility] Start: 08-08-2022 ambulatory Ambulatory Facility:H 1 Start: 07-31-2022 AOIL[facility], Provider: FRANKIE LOYAI ULTRASOUND 01,[id number], Status: Pen, Time: 1:30 PM [facility], Provider: FRANKIE HHVI ULTRASOUND 01,[id number], Status: Pen, Time: 1:30 PM [facility] Work Phone: Start: 06-04-2022 FUV, Provider: Cecilio Go, Status: Pen, Time: 11:30 AM FUV, Provider: Cecilio Go, Status: Pen, Time: 11:30 AM -[facility] [address] DO Work Phone: Start: 02-06-2022 FUV, Provider: Cecilio Go, Status: Pen, Time: 8:50 AM FUV, Provider: Cecilio Go, Status: Pen, Time: 8:50 AM -[facility] [address] DO Work Phone: Start: 12-11-2021 FUV, Provider: Cecilio Go, Status: Pen, Time: 11:20 AM FUV, Provider: Cecilio Go, Status: Pen, Time: 11:20 AM -[facility] [address] DO Work Phone: Start: 04-30-2021 FUV, Provider: Cecilio Go, Status: Pen, Time: 1:20 PM FUV, Provider: Cecilio Go, Status: Pen, Time: 1:20 PM -[facility] [address] DO Work Phone: Start: 02-15-2021 COVID-19 Vaccine (4 - Moderna series) COVID-19 Vaccine (4 - Moderna series) [facility] Start: 2015 RSV High Risk: (Elde rly (60+) or Population) (1 - Risk 60-74 years 1-dose series) RSV High Risk: (Elderly (60+) or Population) (1 - Risk 60-74 years 1-dose series) [facility] Start: 2015 RSV patient s and/or patients aged 60+ years (1 - 1-dose 60+ series) RSV patients and/or patients aged 60+ years (1 - 1-dose 60+ series) [facility] Start: 10-18-2005 Prostate specific antigen measurement PSA Prostate Cancer Screening [facility] Start: 10-18-2005 Zoster Vaccines (1 o f 2) Zoster Vaccines (1 of 2) [facility] Start: 10-18-1977 DTaP/Tdap/Td Vaccine s (1 - Tdap) DTaP/Tdap/Td Vaccines (1 - Tdap) [facility] Start: 10-18-1973 Diabetes mellitus screening Diabetes Screening [facility] Start: 10-18-1973 Hepatitis C screening [facility] Start: 10-18-1956 MMR Vaccines (1 of 1 - Standard series) MMR Vaccines (1 of 1 - Standard series) [facility] Start: 1955 Lipid panel Lipid Panel [facility] Start: 1955 Medicare Annual Wellness Visit Medicare Annual Wellness Visit (AWV) [facility] Start: 1955 Screening for malign ant neoplasm of colon [facility] CT Chest WO contrast [facility] US.doppler Aorta and Iliac artery - bilateral Vascular US Aorta Iliac Duplex Complete Vascular Ultrasound Routine Abdominal aortic aneurysm (AAA) without rupture, unspecified part Infrarenal abdominal aortic aneurysm (AAA) without rupture 10/07/2024 8:11 AM EDT [facility] Service Area Work Phone: Immunizations Immunization Date Immunization Notes Care Provider Rhys estevez 12-09-2023 Influenza, Seasonal, Quadrivalent, Adjuvanted Cecilio Go MD Work Phone: [facility] 12-09-2023 influenza virus vaccine, unspecified formulation Serene 2 [facility] Work Phone: 11-06-2022 influenza, high dose seasonal, preservative-free Carmen Witt Other Phone: [facility] 11-06-2022 influenza virus vaccine, unspecified formulation Curtis Meléndez MD Work Phone: [facility] Work Phone: 12-26-2021 Fluad Quadrivalent 0 .5 ML Intramuscular Prefilled Syringe Jean Christophe Jackieiwonayrn Work Phone: [facility] [address] DO Work Phone: 12-26-2021 influenza, seasonal, injectable Curtis Meléndez MD Work Phone: [facility] Work Phone: 12-21-2020 Pfizer-BioNTTraffio COVID-19 Vacc 30 MCG/0.3ML Intramuscular Suspension Jean Harrisyrn Work Phone: [facility] 12-21-2020 pneumococcal conjuga te vaccine, 13 valent Jean Christophe Gina Work Phone: [facility] 12-21-2020 zoster vaccine recombinant Jean Saeed Gina Work Phone: [place] [address] [place] Work Phone: 12-21-2020 zoster vaccine, unspecified formulation Curtis Meléndez MD Work Phone: [facility] Work Phone: 12-10-2020 Fluad Quadrivalent 0 .5 ML Intramuscular Prefilled Syringe Jean Christophe Kimberlyr Work Phone: [facility] [address] DO Work Phone: 12-10-2020 influenza, seasonal, injectable Curtis Meléndez MD Work Phone: [facility] Work Phone: 06-21-2020 COVID-19 Vaccine Moderna - Documentation Purposes Only Danna Mcdaniel Other [employer] [facility] [employer] Other 05-09-2020 COVID-19 Vaccine Moderna - Documentation Purposes Only Danna Mcdaniel Other [employer] Other 01-04-2020 influenza, injectabl e, quadrivalent, preservative free Jean A Naderer Work Phone: [facility] [address] DO Work Phone: 01-04-2020 influenza, seasonal, injectable Curtis Meléndez MD Work Phone: [facility] Work Phone: 01-04-2020 pneumococcal polysaccharide vaccine, 23 valent Jean A Naderer Work Phone: [facility] 12-20-2019 influenza, seasonal, injectable Jean A Naderer Work Phone: [facility] 10-25-2018 influenza, injectabl e, quadrivalent, preservative free Curtis Meléndez MD Work Phone: [facility] Work Phone: 10-25-2018 influenza, seasonal, injectable Jean A Naderer Work Phone: [place] [address] DO Work Phone: 11-24-2017 influenza virus vaccine, unspecified formulation Jean A Naderer Work Phone: [place] [address] DO Work Phone: 02-25-2016 pneumococcal polysaccharide vaccine, 23 valent Jean A Naderer Work Phone: [facility] Payers Date Payer Category Payer Dual Eligibility Medicare/Medicaid Organization [id number] 2023 Private Health Insurance [employer] DUAL COMPLETE [facility] [id number] 2023-Present Cesario Arthur [address] [place] [address] [id number] 2023 Private Health Insurance [facility] [id number] 2023 Medicare 2022 Self-pay [id number] 2022 Unknown 2020 Unknown [id number] 2.16.840.1.459307.19 2020 Medicaid [id number] 2020 Medicaid [id number] 2020 Unknown [id number] 2.16.840.1.074765.19 1959 Unknown [id number] 1955 Unknown [id number] 2.16.840.1.201457.3.579.2 .593 1955 Unknown [id number] 2.16.840.1.840273.3.579.2 .593 1955 Unknown [id number] 2.16.840.1.254460.3.579.2 .593 1955 Unknown [id number] 2.16.840.1.998115.3.579.2 .593 1955 Unknown [id number] 2.16.840.1.276614.3.579.2 .593 1955 Unknown [id number] 2.16.840.1.987139.3.579.2 .593 1955 Unknown [id number] 2.16.840.1.003031.3.579.2 .593 1955 Unknown [id number] 2.16.840.1.049941.3.579.2 .593 1955 Unknown [id number] 2.16.840.1.265450.3.579.2 .593 1955 Unknown [id number] 2.16.840.1.134200.3.579.2 .593 1955 Unknown [id number] 2.16.840.1.476803.3.579.2 .593 1955 Unknown [id number] 2.16.840.1.175373.3.579.2 .593 1955 Unknown [id number] 2.16.840.1.424162.3.579.2 .356 1955 Unknown [id number] 2.16.840.1.810359.3.579.2 .356 1955 Unknown [id number] 2.16.840.1.473147.3.579.2 .8 1955 Unknown [id number] 2.16840.1.914179.3.579.2 .1068 1955 Unknown [id number] 2.840.1.152516.3.579.2 .106 1955 Unknown [id number] 2.16840.1.615254.3.579.2 .1068 1955 Unknown [id number] 2.16840.1.428502.3.579.2 .1068 1955 Unknown [id number] 2.16840.1.254983.3.579.2 .1068 1955 Unknown [id number] 2.16840.1.122362.3.579.2 .1068 1955 Unknown [id number] 2.16840.1.560992.3.579.2 .727 1955 Unknown [id number] 2.16.840.1.310659.3.579.2 .727 1955 Unknown [id number] 2.16840.1.536999.3.579.2 .727 1955 Unknown [id number] 2.16840.1.843342.3.579.2 .727 1955 Unknown [id number] 2.16.840.1.686104.3.579.2 .727 1955 Unknown [id number] 2.16840.1.942806.3.579.2 .727 1955 Unknown [id number] 2.16.840.1.936770.3.579.2 .196 1955 Unknown [id number] 2.16840.1.996665.3.579.2 .196 1955 Unknown [id number] 2.16840.1.427790.3.579.2 .196 1955 Unknown [id number] 2.16840.1.360259.3.579.2 .196 1955 Unknown [id number] 2.840.1.191557.3.579.2 .1246 1955 Unknown [id number] 2.840.1.030039.3.579.2 .1246 1955 Unknown [id number] 2.840.1.387690.3.579.2 .1246 1955 Unknown [id number] 2.840.1.833907.3.579.2 .1244 1955 Unknown [id number] 2.840.1.795567.3.579.2 .1244 Medicare [id number] 2.840.1.291086.19 Medicare [facility] [id number] Medicare [id number] Unknown [id number] 2.840.1.301244.3.579.2 .531 Unknown [id number] 2.840.1.351198.3.579.2 .531 Unknown [id number] 2.840.1.427167.3.579.2 .531 Social History Date Type Detail Facility Start: 12-09-2022 End: 08-20-2024 Former smoker Former smoker -[facility] [address] DO Work Phone: Start: 12-09-2022 End: 08-20-2024 Sex Assigned At [facility] Start: 07-14-2021 End: 12-09-2022 Tobacco smoking status NHIS Never smoked tobacco (finding) [facility] Start: 1955 Sex Assigned At Male [facility] Tobacco smoking consumption unknown [facility] Start: 12-18-2020 End: 03-29-2024 Tobacco smoking status Ex-smoker (finding) [facility] Start: 12-09-2022 Tobacco use and exposure Smokeless tobacco non-user [facility] Work Phone: Start: 12-09-2022 End: 08-20-2024 Alcohol intake Lifetime non-drinker (finding) [facility] Work Phone: Start: 1955 Sex Assigned At Not on file [facility] Work Phone: Start: 02-18-2023 End: 01-08-2024 Exposure to SARS-CoV-2 (event) Not sure [facility] Start: 01-18-2022 Sex Male [facility] Functional Status Date Assessment Result Facility 03-29-2024 Functional Status N/A [facility] 12-23-2022 Functional Status N/A [facility] Functional observable [facility] Mental Status Date Assessment Result Facility 11-06-2022 Cognitive functions [id number] [facility] Clinical Notes 11-30-2020 to 08-20-2024 Cecilio Go MD - 08/20/2024 2:30 PM EDTPatient InstructionsAttaSurinder Go MD - 01/08/2024 10:10 AM ESTPatient InstructionsAttachAdrian Meléndez MD - 11/11/2023 9:15 AM EDT Note Date & Type Note Facility 08-20-2024 History of Present illness Narrative Chief Complaint Patient presents with Follow-up 6 month Follow up for Hypertension Subjective HPI Patient is in the office for follow-up for history of pulmonary embolism treated successfully with Eliquis with no recurrences. He sees his PCP Dr. Witt in [place] on regular basis and apparently blood work was done couple months ago and we requested copies to be sent our way. I did review with the patient his CBC and basic metabolic profile from November 2023. He had only mild renal impairment stage IIIa chronic kidney disease. The patient has had no bleeding complications and no indication of recurrent VTE. He is known to have small abdominal aortic aneurysm which is being monitored noninvasively. He is due for the next ultrasound for next visit. He also has mild mitral regurgitation which is likely to be at the present time inconsequential. His weight remains above target class I obesity. He continue to follow with pulmonary medicine. He uses inhaler on as-needed basis. He continues to have crackles in the lung base of his lung bilaterally. Assessment/recommendations: 1-mild dyspnea caused by mild pulmonary fibrosis managed through pulmonary medicine with no progression. He is non-smoker 2-history of pulmonary embolism that was bilateral in 2021 on Eliquis which will be on a long-term basis. The event was unprovoked, will continue to monitor CBC 3-mild mitral regurgitation , last echo 2021, currently inconsequential will follow-up on the echocardiogram before next visit 4-no evidence of myocardial ischemia based on nuclear stress test 5- class I obesity advised patient to reduce calorie intake, he cannot do much exercise due to dyspnea. 6-small abdominal aortic aneurysm less than 3.5 cm by ultrasound July 2022 patient is reformed smoker, follow-up testing will be scheduled before next visit 7- high risk medication with anticoagulation to be monitored closely 8-essential hypertension on lisinopril under control. Patient follows low-salt diet, he need to go on low calorie diet to lose weight and try to maintain active lifestyle. 9-dyslipidemia on atorvastatin 20 mg daily well-tolerated. Lipid profile is ordered. Advised patient to continue to follow low-fat diet, exercise regularly and try to achieve ideal body weight ROS Review of systems unremarkable Vitals: 08/20/24 1447 BP: 104/60 BP Location: Left arm Patient Position: Sitting Pulse: 72 Weight: 93.4 kg (206 lb) Height: 1.753 m (5' 9 ) Objective Physical Exam Constitutional: Appearance: Normal appearance. HENT: Nose: Nose normal. Neck: Vascular: No carotid bruit. Cardiovascular: Rate and Rhythm: Normal rate. Pulses: Normal pulses. Heart sounds: Normal heart sounds. Pulmonary: Effort: Pulmonary effort is normal. Abdominal: General: Bowel sounds are normal. Palpations: [...] normal. Allergies Nitroglycerin Current Medications Current Outpatient Medications Medication Instructions apixaban (ELIQUIS) 5 mg, oral, 2 times daily atorvastatin (Lipitor) 40 mg tablet 1 tablet, Nightly furosemide (LASIX) 20 mg, oral, Daily before breakfast lisinopril 20 mg tablet 1 tablet, Daily metoprolol tartrate (LOPRESSOR) 25 mg, oral, 2 times daily nortriptyline (Pamelor) 25 mg capsule 1 capsule, Nightly omeprazole (PriLOSEC) [address] capsule 1 capsule, Daily oxybutynin XL (Ditropan-XL) 10 mg 24 hr tablet 1 tablet, Daily oxyCODONE-acetaminophen (Percocet) 5-325 mg tablet TAKE 1 TABLET Twice daily PRN potassium chloride CR 10 mEq ER tablet 10 mEq, oral, Daily tiZANidine (Zanaflex) 4 mg tablet 1 tablet, Nightly Assessment/Plan 1. Bilateral pulmonary embolism (Multi) 2. High risk medication use 3. Shortness of breath 4. Essential hypertension Follow Up In Cardiology Follow Up In Cardiology Transthoracic Echo Complete 5. Mixed hyperlipidemia 6. Mitral valve insufficiency, unspecified etiology Transthoracic Echo Complete 7. Pulmonary fibrosis (Multi) 8. Abdominal aortic aneurysm (AAA) without rupture, unspecified part Vascular US Aorta Iliac Duplex Complete 9. Class 1 obesity due to excess calories without serious comorbidity with body mass index (BMI) of 30.0 to 30.9 in adult 10. Former smoker 11. Infrarenal abdominal aortic aneurysm (AAA) without rupture Vascular US Aorta Iliac Duplex Complete Scribe Attestation By signing my name below, I, Annemarie Woody ROBERTS , Scribe attest that this documentation has [...] discussion and plan. documented in this encounter [facility] Work Phone: 08-20-2024 Instructions Annemarie Flores LPN - 08/20/2024 2:30 PM EDT Please bring all medicines, vitamins, and herbal supplements with you when you come to the office. Prescriptions will not be filled unless you are compliant with your follow up appointments or have a follow up appointment scheduled as per instruction of your physician. Refills should be requested at the time of your visit. BMI was above normal measurement. Current weight: 93.4 kg (206 lb) Weight change since last visit (-) denotes wt loss -2 lbs Weight loss needed to achieve BMI 25: 37.1 Lbs Weight loss needed to achieve BMI 30: 3.3 Lbs Provided instructions on dietary changes Provided instructions on exercise. The following attachments cannot be sent through Care Everywhere.Heart Healthy Diet (Indonesian)documented in this encounter [facility] Work Phone: 03-29-2024 Hospital Discharge instructions Patient Education 03/29/2024 [...] Follow these instructions at home: Medicines Take [id number]-opr-[id number] and prescription medicines only as told by [...] provider. Document Revised: 05/09/2021 Document Reviewed: 05/09/2021 [employer] Patient Education 2023 [employer]. Follow Up Care 03/09/2024 09:44:23 With:NATALI LOEN, ALAN Abraham, URL Address: [address] [place] [address] When:Within 1 Year(s) [facility] 03-29-2024 Note Patient Education Urology Erectile [...] these instructions at home: Medicines ??? Take [id number] and prescription medicines only as told by [...] Do not u (more content not included)... [facility] 01-08-2024 History of Present illness Narrative [...] aneurysm (AAA) without rupture, unspecified part (CMS-HCC) 7. Lung crackles 8. Class 1 obesity due to excess calories without serious comorbidity with body mass index (BMI) of 30.0 to 30.9 in adult Scribe Attestation By signing my name below, I, Annemarie Mckay LPN Scribe attest that this documentation has been [...] discussion and plan. documented in this encounter [facility] Work Phone: 01-08-2024 Instructions Annemarie [...] be sent through Care Everywhere.Heart Healthy Diet (Indonesian)documented in this encounter [facility] Work Phone: 11-11-2023 History of [...] split dictation. -Nicolas Kohli PA-C In a lhze-qb-emaq encounter, I performed a history and physical [...] MD Orthopedic surgery documented in this encounter [facility] Work Phone: 06-03-2023 History of [...] split dictation. -Nicolas Kohli PA-C In a ngca-xq-mzyo encounter, I performed a history and physical [...] MD Orthopedic surgery documented in this encounter [facility] Work Phone: 02-28-2023 History of [...] portion of this split dictation. In a lrgd-vr-yamq encounter, I performed a history and physical [...] the lumbar spine. documented in this encounter [facility] Work Phone: 12-23-2022 Hospital Discharge [...] treatment? Where to find more information [employer]: www.cancer.org [employer]: www.auanet.org Contact a health care [...] provider. Document Revised: 08/06/2021 Document Reviewed: 08/06/2021 [employer] Patient Education 2022 [employer]. Follow Up Care 12/21/2021 12:26:12 With:RAINER JIMENEZ, Marino Calabrese, URL Address: [facility] [address], [place] [phone] When: Unknown Comments:1 yr w/ PSA [facility] 11-07-2022 Note Send Summary: Discharge Summary Providers: Provider RoleProvider Name [facility] Robert ConsultingKher, Chirag [facility] Note Recipients: Curtis Meléndez MD - [id number] [Preferred] Carmen Witt MD - [id number] [] Cayden Flores MD Discharge: Summary: Admission Date: .04-Nov-2022 05:14:00 Discharge Date: 07-Nov-2022 Attending Physician at Discharge: Curtis Meléndez Admission Reason: Lumbar stenosis and spondylolisthesis(1) Final Discharge Diagnoses: Back pain Procedures: Date: 04-Nov-2022 13:07:00 Procedure Name: 1. 2. 3. 4. 5. Condition at Discharge: Satisfactory Disposition at Discharge: .Home Vital Signs: T PRBPMAPSpO2 [id number]% Date/Time11/07 8: 8: 8: 8: 21: 8:56 [...] please call ahead and schedule appointment Location: [address] [facility] Phone Number: [phone] Discharge Medications: Home Medication furosemide 20 mg [...] tab(s) orally once a day Potassium Chloride (Rec-Xhzg-Sef 10) 10 mEq oral tablet, extended release [...] discharge: Full Code Electronic Signatures: Gilda Mcmahon (SECONDS HANDLER-PAYROLL SPECIALIST) (Signed 07-Nov-2022 09:26) Authored: Send Summary, Summary Content, Immunizations, Ongoing Care, DNR Status, Note Completion Last Updated: 07-Nov-2022 09:26 by Gilda Mcmahon (SECONDS HANDLER-PAYROLL SPECIALIST) References: 1. Data Referenced From Consult-General Internal Medicine 04-Nov-2022 16:29 [facility] 11-04-2022 Note Post Operative Note: Post-Procedure Diagnosis: Lumbar stenosis and spondylolisthesis Procedure: 1. 2. 3. 4. 5. Surgeon: Ángela Resident/Fellow/Other Chair Upholsterer: Alice Estimated Blood Loss (mL): 100 cc Specimen: no Findings: Lumbar stenosis and spondylolisthesis Operative Report Dictated: Dictation: not applicable - note contains Operative Report Note Recipients: Curtis Meléndez MD - [id number] [Preferred] Carmen Witt MD - [id number] [] Operative Report: Preoperative diagnosis: L2-3 and [...] Curtis Meléndez M.D. Asst.: Sonu HillThe physician manufacturing assistant was present through the entire case. Given the nature of the disease process and the procedure to be performed a skilled surgical services asst was necessary during the case. The manufacturing assistant was necessary in order to hold retractors and directly assist in the operation. A certified low vision therapist was at the back table managing instruments [...] the large dilat (more content not included)... [facility] 11-04-2022 Reason for referral (narrative) Reason for Referral: Surgery 11.04.2022 L3-4 lateral interbody fusion, L2-3 and L3-4 laminectomy and posterior lateral fusion, L3-4 lateral instrumentation, thermal ablation of median nerve to L2-3 and L3-4 [facility] 10-30-2022 Evaluation note Encounter Date Diagnosis Assessment Notes Oct, Diastolic dysfunction (ICD-10 - I51.89) Continue all recommendati on/medicatio ns per your Power Barker . Oct, ILD (interstitial lung disease) (ICD-10 - J84.9) Pulmonary Function Test as scheudled prior to next office appointment. [employer] Other 07-27-2023 History of Present illness Xi [...] sweats. He has no bowel or bladder complaints.[facility] Work Phone: [phone]) [phone] Evaluation note* Encounter Date Diagnosis Assessment Notes Treatment Notes Treatment Clinical Notes Jul, Diastolic dysfunction (ICD-10 - I51.89) Jul, ILD (interstitial lung disease) (ICD-10 - J84.9) I reviewed results and images of your Chest CT completed at [facility] 10/2021 and 01/2022. There is evidence of very mild fibrosis (scarring). Continue with physcial activity as you are. [employer] Other 06-22-2023 Evaluation note* Encounter Date [...] agrees with plan, and denies any questions. [employer] Other 03-16-2023 NoteCONSULTATION CONSULTATION DATE: 05/09/2022 [...] is currently under the care of a consultant nurse. Most recent physician appointment does show that his lungs are slowly improving. He does have a Cardiology appointment on 06/13/2022, and at that time, he will discuss with the chicken and fish cleaner regarding possible use of sedation and holding [...] otherwise indicated. Patient agrees with this care.[facility] [id number] NoteCONSULTATION CONSULTATION DATE: 02/07/2022 HISTORY OF PRESENT [...] still being followed up with Pulmonology in [facility] and, most recently, they feel he [...] up in three months, unless otherwise indicated.[facility] [id number] Evaluation note* Encounter Date Diagnosis Assessment Notes Treatment Notes Treatment Clinical Notes Jan, Diastolic dysfunction (ICD-10 - I51.89) Jan, ILD (interstitial lung disease) (ICD-10 - J84.9) I will look at Chest CT from [place] and let you know if any further testing is needed. Jan, Dyspnea (ICD-10 - R06.00) [employer] Other 10-04-2022 NoteCONSULTATION CONSULTATION DATE: 11/27/2021 [...] is under the care of Dr. Go, chicken and fish cleaner, who has suggested that the patient not hold the Eliquis for any treatment right now and, as such, we will maintain a conservative approach. IMPRESSION: As such, the patient's current working diagnosis is chronic low back pain, new diagnosis of cystic fibrosis. A recent CT of the lung was performed and the patient is under the care of [facility]. The patient is also under anticoagulation therapy. PLAN: We will refill the patient's Percocet 5/325 b.i.d. The patient will be returning in clinic as needed. The patient has had a rhizotomy, radiofrequency along the low back and, as such, is stable with regards to his low back.[facility] [id number] NoteCONSULTATION CONSULTATION DATE: 08/30/2021 This is a [...] past he had been diagnosed with an FL in addition to an aneurysm and cystic fibrosis. The patient was worked up in the emergency department and it was found that he had multiple PEs in his lungs and in his right lower leg. The patient was transferred to [facility] where the large PE was surgically [...] and Approved by: LAUREN BAUMANN . 09/06/2021 09:46:00[facility]06-28-2022 Evaluation note* Encounter Date [...] physcial activity....walk 3-4x a day to start. [employer] Other 06-22-2022 Evaluation note* Encounter Date Diagnosis [...] the plan all his questions were addressed. [employer] Other 10-07-2021 Evaluation note* Encounter Date [...] Nov, Other Try Mylanta for acid reflux. [employer] Other Evaluation + Plan note Future Appointments Appointment Date:12/26/2023 11:00:00 AM Scheduled Provider:Marino SPEAR MD Location:[facility] Appointment Type:URO Office Visit Diagnostic Tests Pending * PSA Total 12/23/22 [facility] evaluation + Plan note Future Appointments Appointment Date:03/29/2024 11:40:00 AM Scheduled Provider:ALAN HURST PA-C Location:[facility] Appointment Type:URO Office Visit Diagnostic Tests Pending * PSA Total 03/22/24 [facility] Evaluation + Plan note Future Appointments Appointment Date:03/29/2024 11:40:00 AM Scheduled Provider:ALAN HURST PA-C Location:[facility] Appointment Type:URO Office Visit [facility] evaluation + Plan note Future Appointments Appointment Date:03/24/2025 10:30:00 AM Scheduled Provider: Location:[facility] Appointment Type:URO Nurse Visit Appointment Date:03/31/2025 09:40:00 AM Scheduled Provider:ALAN HURST PA-C Location:[facility] Appointment Type:URO Office Visit Future Scheduled Tests Laboratory* PSA Total 03/29/25 [facility] evaluation noteNo InformationNort [employer] Other Evaluation noteNo assessment information available [facility] Work Phone: Evaluation note* Constitutional: Well [...] senses, motor, response and reflexes, normal strength [facility] Diagnosis Low back pain, unspecified back pain laterality, unspecified chronicity, unspecified whether sciatica present- Primary documented in this encounter [facility] Work Phone: Evaluation note* Diagnosis Onset Date Resolution Status Grade I diastolic dysfunction acute Pulmonary fibrosis acute [facility] Work Phone: Evaluation note* Diagnosis Low back pain, unspecified back pain laterality, unspecified chronicity, unspecified whether sciatica present- Primary Lumbar pain Lumbago documented in this encounter [facility] Work Phone: Evaluation note* Diagnosis Lumbar pain Lumbago documented in this encounter [facility] Work Phone: Evaluation note* Diagnosis Onset Date Resolution Status AAA (abdominal aortic aneurysm) acute [facility] Work Phone: Evaluation note* Diagnosis Onset Date Resolution Status AAA (abdominal aortic aneurysm) acute Bronchiectasis acute Grade I diastolic dysfunction acute Pulmonary fibrosis acute [facility] Work Phone: Evaluation note* Diagnosis Essential [...] 30.9 in adult documented in this encounter [facility] Work Phone: Evaluation note* Diagnosis Lumbar pain Lumbago documented in this encounter [facility] Work Phone: Evaluation note* Diagnosis Lumbar pain- Primary Lumbago Lumbar pain Lumbago documented in this encounter [facility] Work Phone: Evaluation note* Diagnosis Bilateral pulmonary embolism (Multi)- Primary Other pulmonary embolism and infarction High risk medication use Shortness of breath Essential hypertension Unspecified essential hypertension Mixed hyperlipidemia Mitral valve insufficiency, unspecified etiology Pulmonary fibrosis (Multi) Postinflammatory pulmonary fibrosis Abdominal aortic aneurysm (AAA) without rupture, unspecified part Class 1 obesity due to excess calories without serious comorbidity with body mass index (BMI) of 30.0 to 30.9 in adult Former smoker Personal history of tobacco use, presenting hazards to health Infrarenal abdominal aortic aneurysm (AAA) without rupture documented in this encounter [facility] Work Phone: Evaluation note* Diagnosis Abdominal aortic aneurysm (AAA) without rupture, unspecified part Infrarenal abdominal aortic aneurysm (AAA) without rupture documented in this encounter [facility] Work Phone: Hisepxn general Narrative - Reported* Type Description Date Medical History COPD Medical History asthma Medical History sleep apnea (negative PSG) Medical History aaa Medical History pe Surgical History spine 2001 Surgical History neck 2004 Surgical History prostate biopsy 2017 Surgical History dental extraction Hospitalization History as above Hospitalization History pe 2021 [employer] Other Hisewcr general Narrative - Reported* Type Description Date Medical History NOEL Medical History COPD Medical History asthma Medical History sleep apnea Surgical History spine 2001 Surgical History neck 2004 Surgical History prostate biopsy 2017 Hospitalization History as above [employer] Other Hisyjwr general Narrative - Reported* Type Description Date Medical History COPD Medical History asthma Medical History sleep apnea (negative PSG) Surgical History spine 2001 Surgical History neck 2004 Surgical History prostate biopsy 2017 Hospitalization History as above [employer] Other Hisnisn general Narrative - Reported* Type Description Date Medical History COPD Medical History asthma Medical History sleep apnea (negative PSG) Medical History aaa Medical History pulmonary embolism Surgical History spine 2001 Surgical History neck 2004 Surgical History prostate biopsy 2017 Surgical History dental extraction Hospitalization History as above Hospitalization History pulmonary embolism [facility] 06/2021 [employer] Other Hisdptb general Narrative - Reported* Type Description Date Medical History COPD Medical History asthma Medical History sleep apnea (negative PSG) Medical History aaa Medical History pulmonary embolism Medical History interstitial lung disease Medical History diastolic dysfunction Surgical History spine 2001 Surgical History neck 2004 Surgical History prostate biopsy 2017 Surgical History dental extraction Hospitalization History as above Hospitalization History pulmonary embolism [facility] 06/2021 [employer] Other History of Present illness NarrativeErik [...] to the pain management center down [place].[facility] Work Phone: Hospital course Narrative No data available for this section [facility] Hospital Discharge instructions* Activity:activity as tolerated. [...] ahead and schedule appointmentLocation: [address] [facility]: [phone] [facility] No data available for this section [facility] progress note No data available for this section [facility] reason for visit Narrative* Imaging (Routine) - Authorized Specialty Diagnoses / Procedures Referred By Rona t Referred To Contact Cardiology Diagnoses Abdominal aortic aneurysm (AAA) without rupture, unspecified part Infrarenal abdominal aortic aneurysm (AAA) without rupture Procedures Vascular US Aorta Iliac Duplex Complete Cecilio Go MD [address] [facility] [address], [facility] [address] [place] [address] Phone: tel: fax: Referral ID Status Reason Start Date Expiration Date Visits Requested Visits Authorized [id number] Authorized Perform Procedure 08/20/2024 08/20/2025 1 1 [facility] Work Phone: Chief Complaint Pt came in today for [...] for follow-up for recent admission to [facility] with bilateral pulmonary embolism leading to [...] pulmonary embolism. Recently follow-up CT scan at [facility] revealed resolution of the pulmonary emboli. Some other pathology was noted with densities requiring follow-up imaging in 3 to 6 months which has been arranged through his PCP. He is cu rrently anticoagulated with Eliquis. The patient is contemplating further dental work in December which he should be able to hold anticoagulation prior to. Recent nuclear stress test at [facility] was reviewed and shared with the patient and was normal. He is also known to have normal ejection fraction. He currently has no complaint to report physical examination was only remarkable for 8 pounds weight gain from last visit. He is now in the obesity range recent medical record from [facility] were reviewed with the patient [...] thoracic and lumbar xrays and MRI in [place]. brought a disc.new patient. low back pain with RT sided pain to nee x 2 months. h/o sx in 1998. thoracic and lumbar xrays and MRI in [place]. brought a disc.F/U Lumbar after therapy, says [...] 2-3 views Curtis Meléndez MD [address] [facility], [address] [place] [id number] Referral ID Status Reason Start Date Expiration Date Visits Requested Visits Authorized [id number] Authorized Perform Procedure 06/03/2023 06/02/2024 1 1 Specialty Diagnoses / Procedures Referred By Rona t Referred To Contact Radiology Diagnoses Low back pain, unspecified back pain laterality, unspecified chronicity, unspecified whether sciatica present Procedures XR lumbar spine 2-3 views Curtis Meléndez MD [address] [facility], [address] [place] [id number] Referral ID Status Reason Start Date Expiration Date Visits Requested Visits Authorized [id number] Authorized Perform Procedure 02/28/2023 02/28/2024 1 1 [...] lumbar spine 2-3 views Curtis Meléndez MD [address] [facility], [address] [place] [address] Referral ID Status Reason Start Date Expiration Date Visits Requested Visits Authorized [id number] Authorized Perform Procedure 06/03/2023 06/02/2024 1 1 Reason Comments Follow-up 6m Specialty Diagnoses / Procedures Referred By Contac t Referred To Contact Cardiology Diagnoses Essential hypertension Mitral valve insufficiency, unspecified etiology Procedures Follow Up In Cardiology Cecilio Go MD [address] [facility] [address], [address] [address] Phone: tel: fax: Referral ID Status Reason Start Date Expiration Date Visits Re quested Visits Authorized [id number] Closed 12/09/2022 06/07/2023 1 1 Referral ID Status Reason Start Date Expiration Date Visits Requested Visits Authorized [id number] Authorized Perform Procedure 11/11/2023 11/10/2024 1 1 Reason Comments Follow-up L3-4 Lateral lumbar Fusion above prior L4-5 Fusion/L2-3, L3-4 Midline Lami from 11/04/22, xrays 1 year out Specialty Diagnoses / Procedures Referred By Contac t Referred To Contact Cardiology Diagnoses Essential hypertension Mitral valve insufficiency, unspecified etiology Procedures Follow Up In Cardiology Cecilio Go MD [address] [facility] [address], [address] [address] Reason Comments Follow-up 6 month Follow up fo r Hypertension Specialty Diagnoses / Procedures Referred By Rona t Referred To Contact Cardiology Diagnoses Essential hypertension Procedures Follow Up In Cardiology Cecilio Go MD [address] [facility] [address], [facility] [address] [place] [address] Phone: tel: fax: Cecilio Go MD [address] [facility] [address], [address] [address] Phone: tel: fax: Referral ID Status Reason Start Date Expiration Date V isits Requested Visits Authorized [id number] Pending Review 01/08/2024 01/07/2025 1 1 (unrecognized sect ion and content) No Status Records FoundNo Status Records FoundNo Status Records FoundNo Status Records FoundNo Status Records FoundNo Status Records FoundNo Status Records FoundNo Status Records FoundNo Status Records FoundNo Status Records Found INFORMATION SOURCE (unrecogn ized section and content) DATE CREATED AUTHOR 07/07/2022 [facility] DATE CREATED AUTHOR AUTHOR'S ORGANIZ ATION 10/25/2022 [facility] DATE CREATED AUTHOR AUTHOR'S ORGANIZ ATION 11/29/2022 [employer] DATE CREATED AUTHOR AUTHOR'S ORGANIZ ATION [facility]2022 [facility] DATE CREATED AUTHOR AUTHOR'S ORGANIZ ATION 08/22/2023 [facility] DATE CREATED AUTHOR AUTHOR'S ORGANIZ ATION 03/30/2024 [facility] DATE CREATED AUTHOR AUTHOR'S ORGANIZ ATION 05/30/2024 [facility] DATE CREATED AUTHOR AUTHOR'S ORGANIZ ATION 10/11/2024 [facility] DATE CREATED AUTHOR AUTHOR'S ORGANIZ ATION 10/11/2024 [facility] Surfacing Machine Operator Teams (unrecognized sec tion and content) Team Status: Active Member Role Status Dates Jean Nicholson MD Primary Care Provider Active Team Status: Inactive Member Role Status Dates Jean Nicholson MD Primary Care Provider Active Bianka Garcia NP-C Attending Provider Active Supervisor Public Message Service Relationship Specialty Start Date End Date Carmen Witt MD [address] [facility] [place] [address] PCP - General 06/04/22 Team Status: Inactive Member Role Status Dates Jean Nicholson MD Primary Care Provider Active Danna Mcdaniel APRN [facility]- Attending Provider Active Team Status: Inactive Member Role Status Dates Jean Nicholson MD Primary Care Provider Active S tart: March 04, 2023 End: March 04, 2023 Danna Mcdaniel SECONDS HANDLER ACNP-BC Attending Provider Active Start: March 04, 2023 End: March 04, 2023 Team Status: Inactive Member Role Status Dates Jean Nicholson MD Primary Care Provider Active S tart: April 09, 2023 End: April 09, 2023 Danna Mcdaniel APRN ACN-BC Attending Provider Active Start: April 09, 2023 End: April 09, 2023 Team Status: Active Member Role Status Dates Carmen Witt MD Primary Care Provider Active Team Status: Inactive Member Role Status Dates Danna Mcdaniel APRN ACN-BC Attending Provider Active Start: April 14, 2023 End: April 14, 2023 Carmen Witt MD Primary Care Provider Active Start: April 14, 2023 End: April 14, 2023 Supervisor Public Message Service Relationship Specialty Start Date End Date Carmen Witt MD [address] [facility] [place] [address] PCP - General 06/04/22 Supervisor Public Message Service Relationship Specialty Start Date End Date Carmen Witt MD [address] [facility] [place] [address] PCP - General 06/04/22 Team Status: Inactive [...] End: November 17, 2023 Danna Mcdaniel APRN [facility] Attending Provider Active Start: November 17, 2023 End: November 17, 2023 Supervisor Public Message Service Relationship Specialty Start Date End Date Carmen Witt MD [address] [place] [id number] PCP - General 06/04/22 Supervisor Public Message Service Relationship Specialty Start Date End Date Carmen Witt MD [address] [id number] PCP - General 06/04/22 Supervisor Public Message Service Relationship Specialty Start Date End Date Carmen Witt MD [address] [id number] PCP - General 06/04/22 Supervisor Public Message Service Relationship Specialty Start Date End Date Carmen Witt MD [address] [id number] PCP - General 06/04/22 Goals (unrecognized section [...] BE BASED ON THE PRIMARY CLINICAL RECORDS. [employer] provides no warranty or guarantee of the accuracy or completeness of information in this document.
--- NOTE | 2024-10-28 10:33 | P.CN_ITS ---
Consult Note: HPI Data of Consult Patient: known to practice within the last 3 years Requesting Physician: Mercedes Massey NP Primary Care Provider: Radames Ricks MD Consult Narrative Reason for consult: back pain Narrative: 69yom who presents for assessment. worsening low back pain. imaging reviewed, which shows multilevel degenerative changes and stenosis, as well as fusion from l4-s1. has continued in provider directed home exercise program >6 weeks, with minimal benefit. uses percocet 5-325mg BID PRN, nortriptyline 25mg hs, celebrex and baclofen as needed. denies adverse med side effects. low back pain 05/03 increasing with standing, walking. CANDACE 27% with moderate pain impacting ADLs, ability to sit, ability to stand, sleep, social life, and travel. on 05/24/24 pt underwent bilateral L2/3 L3/4 RFA with >50% improvement ongoing in pain and functional ability. cc:: CC: Mercedes Massey NP Review of Systems ROS Musculoskeletal Reports: back pain PFSH PFSH Medical History Fixation hardware in spine ?Z96.7 - Presence of other bone and tendon implants (ICD-10) Fusion of lumbar spine ?M43.26 - Fusion of spine, lumbar region (ICD-10) Pulmonary embolism ?I26.99 - Other pulmonary embolism without acute cor pulmonale (ICD-10) Generalized weakness ?R53.1 - Weakness (ICD-10) Meds Home Medications and Allergies Home Medications ?Medication ?Instructions ?Recorded ?Confirmed ?Type acetaminophen 325 mg tablet 325 mg PO Q6H PRN pain 05/24/24 History (Tylenol) albuterol sulfate 90 mcg/actuation 2 puff inhalation Q 4H PRN 09/06/22 05/24/24 History aerosol inhaler shortness of breath or wheez ing apixaban 5 mg tablet (Eliquis) 5 mg PO Q12H 09/06/22 0 05/24/24 History atorvastatin 40 mg tablet 40 mg PO QDAY 09/06/2205/24 History baclofen 10 mg tablet 10 mg PO QDAY 09/06/2205/24 History furosemide 20 mg tablet 20 mg PO QDAY 09/06/2205/24 History lisinopril 20 mg tablet 20 mg PO QDAY 09/06/2205/24 History metoprolol tartrate 25 mg tablet 25 mg PO Q12H 3 05/24/24 History omeprazole 40 mg capsule,delayed 40 mg PO QDAY 3 05/24/24 History release oxybutynin chloride 10 mg 10 mg PO QDAY 09/06/2205/24 History tablet,extended release 24 hr potassium chloride 10 mEq 10 meq PO QDAY 09/06/2204/26 History tablet,extended release docusate sodium 100 mg capsule 100 mg PO BID 11/08/22 05/24/24 History nortriptyline 25 mg capsule 25 mg PO DAILY #30 caps Rx oxycodone-acetaminophen 5 mg-325 1 tab PO DAILY PRN pa in #30 tabs 07/29/24 Rx mg tablet (Percocet) oxycodone-acetaminophen 5 mg-325 1 tab PO DAILY PRN pa in #30 tabs 09/06/24 Rx mg tablet (Percocet) oxycodone-acetaminophen 5 mg-325 1 tab PO DAILY PRN pa in #30 tabs 10/06/24 Rx mg tablet (Percocet) oxycodone-acetaminophen 5 mg-325 1 tab PO QDAY PRN ernst n #30 tabs 10/11/24 Rx mg tablet (Percocet) Allergies Allergy/AdvReac Type Severity Reaction Status Date / Time No Known Drug Allergies Allergy Verified 05/24/24 07:04 Exam Constitutional Documenting provider has reviewed patient's vital signs: yes Common normals: no apparent distress, oriented x3, healthy appearing, alert and well nourished General appearance: cooperative [facility] Common normals: normocephalic, hearing grossly normal bilaterally and moist oral mucous membranes Head and scalp: normocephalic Eye Common normals: PERRL Pupil: PERRL Neck & C-Spine Common normals: full ROM General: normal visual inspection Chest Common normals: inspection of chest normal Respiratory Common normals: normal respiratory effort, no retractions and no use of accessory muscles Back & Pelvis Lumbar spine/lower back: lumbar ROM normal, pain with ROM and straight leg raise negative bilaterally; no lumbar spinal tenderness Other: sensation intact BLE strength 5/5 in BLE facet loading mildly positive Extremity Common normals: normal to inspection and full ROM Neuro Common normals: oriented x3 Sensorium/orientation: alert Motor exam: strength 5/5 throughout and no movement abnormalities noted Psych Common normals: mental status grossly normal, thought process normal, cooperative, affect normal, speech normal and activity/motor behavior normal Speech: normal speech Thought process: normal thought process Results Additional Findings Additional findings: If on a controlled substance or opioids, I have checked an [place] report on this patient and there are no aberrancies noted in the prescribing history.??If on a controlled substance or opioid a drug screen was completed and reviewed within the last year, and if there has not been a drug screen completed we ordered one today to monitor higher risk, state monitored pain medication use. As part of providing excellent, safe, comprehensive care, the following was completed at our patient's visit: 1. A medication reconciliation and review to ensure accurate knowledge of current/active medications, including asking our patients to inform us about any oyii-day-nankzvk medications or herbal remedies/nutritional supplements/alternative remedies. 2. A review to specifically ensure our patients have had annual screening for screening for depression, screening for tobacco use, and screening for unhealthy alcohol use. For concerning screenings had a discussion with the patient, provided patient education, and recommended follow-up with primary care provider when appropriate. If patient noted with a risk of falling, they received education on strength, gait, and balance training to prevent future risk of falling. Portions of this note may have been carried over from the previous visit and updated as appropriate. Please note this office utilizes paper charting in addition to the electronic medical record. A list of current medications, vitals, and PMH is available there as the clinical staff outside of myself do not have access to [employer] charting during the clinic day operations. As part of providing quality comprehensive care the current medications, vitals, and PMH were reviewed in the paper chart. Assessment and Plan Assessment and Plan (1) Lumbar spondylosis: Assessment and Plan: pain well controlled from prior RFA (2) Chronic use of opiate for therapeutic purpose: (3) Failed back syndrome: (4) Lumbar stenosis with neurogenic claudication: Assessment and Plan: >50% improvement from prior caudal BRIAN ongoing (5) Encounter for long-term use of opiate analgesic: Assessment and Plan: I feel these medications are improving the patient's quality of life and allow them to tolerate activities of daily living as well as participate in recreational activity.? The patient does not report intolerable side effects. The patient is NOT opioid naive and non-pharmacologic and non-opioid treatment has failed to significantly relieve the patient's pain and improve functionality. The patient has a diagnosis that is related to a somatic or visceral pain etiology. ? ?? I reviewed with the patient the potential risks and side effects with the use of? opioid medications including but not limited to respiratory depression,? sedation, and even . Within the last 12 months I have verified the patient has access to naloxone should? these effects occur. The patient was advised to let? their family know they had Naloxone in case they would need to administer? the medication. I advised the patient to avoid the use of any other? sedation substances including alcohol, THC, and benzodiazepines while? taking opioid medications due to the risk of compounding side effects and? detrimental outcomes. within the last 12 months I have reviewed the [employer], pain treatment agreement and urine drug screen.? ?? A drug screen was completed within the last year, and no aberrancies were noted regarding their use of controlled substances. The patient understands they are subject to the terms and conditions of the pain contract that they have signed. ? ?? I have checked an [place]AR[place] report on this patient today and there are no aberrancies noted in the prescribing history.? Plan bilateral L2,3 L3,4 facet medial branch RFA providing >50% improvement in pain and functional ability continue percocet 5-325mg BID PRN moderate to severe pain, finds benefit and denies side effects. pt notes moderate pain relief for 6-8 hours after each dose with improvement in pain with standing, walking, lifting, twisting update yearly UDS continue HEP as tolerated continue nortriptyline 25mg daily continue baclofen 10mg prn pain/spasms f/u 3 months, sooner if needed
== END 2024-10-28 10:08 | disposition home or self-care (01) ==
LOC: PM 10:07
PROVIDERS: PCP Family Medicine; Visit Provider Nurse Practitioner
DX: M47.816 Spondylosis without myelopathy or radiculopathy, lumbar region (principal); Z79.891 Long term (current) use of opiate analgesic; M96.1 Postlaminectomy syndrome, not elsewhere classified; M48.062 Spinal stenosis, lumbar region with neurogenic claudication
CPT/HCPCS: G0463

== ENCOUNTER 2024-12-07 10:53 | Outpatient (OUT) | payer MEDICARE, SELFPAY ==
--- OUTSIDE RECORDS SUMMARY | 2021-05-14 10:00 | XMS_ITS | Continuity of Care Document ---
Author Organization [facility] Address [address] [place] [address] Phone Care Team Providers Care Cafeteria Table Attendant Name Role Phone Stefanie NOAH Eduardo Unavailable Unavailable Medications Medication Instructions Dosage Effective Dates (start - stop) Status Comments oxycodone 5 mg tablet take 1 tablet by o ral route every 4 - 6 hours as needed 5 MG - Active nortriptyline 10 mg capsule take 1 capsule by oral route every day at bedtime 10 MG - Active oxybutynin chloride ER 10 mg tablet,extended release 24 hr take 1 tablet by oral route every day 10 MG - Active potassium chloride ER 10 mEq tablet,extended release take 1 tablet by oral route every day with food 10 MEQ - Active lisinopril 5 mg tablet take 1 tablet by oral route every day 5 MG - Active furosemide 20 mg tablet take 1 tablet by oral route every day 20 MG - Active omeprazole 40 mg capsule,delayed release take 1 capsule by oral route every day before a meal 40 MG - Active Dutoprol 100 mg-12.5 mg tablet,extended release take 1 tablet by oral route every day - Active tizanidine 4 mg capsule take 1 capsule b y oral route every 6 - 8 hours as needed not to exceed 3 doses in 24 hours 4 MG - Active Emergen-C Electro Mix 408 mg-100 mg-120 mg-2 mg oral powder packet - Active furosemide 20 mg tablet take 1 tablet by oral route every day 20 MG - Active prednisone 10 mg tablet take 1 tablet by oral route every day 10 MG - Active temazepam 30 mg capsule take 1 capsule b y oral route every day at bedtime as needed 30 MG - Active Procedures Procedure Date Panoramic Film Comp Oral Eval New/estab Patient 2021 Comp Oral Eval New/estab Patient 2021 Oral Hygiene Instruction Advance Directives Directive Yes / No Effective Date File Name No Information Encounters Encounter Description Practice Location Reason(s) For Visit Diagnoses Date Provider Providers Copied on Encounter [facility], [address], [place], [id number], [place] tel:[phone] Dental Clinic Dental new (chief complaint) Encounter for screening for dental disorders Stefanie Clark. [address] [place], [address], [place]. tel:[phone] Family History Family Member Type Diagnosis Age At Onset Father Problem (finding) Father Problem cancer of colon Mother Problem Car accident Father Problem (finding) Payers Payer name Insurance type Covered constitution party ID Adolph schuler(s) [employer] ([employer]) 17 [id number] Social History Type Description Quantity Date Captured Comments Alcohol Use Details Unknown Caffeine Use Details Unknown Tobacco Use Status Current non-smoker Smoking Status Never smoker Non-Smoking Tobacco Use Details : No Details Available : No Details Available Sex Male Sexual Orientation Straight or heterosexual Gender Identity Male Chief Complaint And Reason For Visit From encounter dated '05/14/2021 14:00'. Dental new (chief complaint). Description: Dental new, estab dental care Reason For Referral Reason For Referral No Information History Of Present Illness Encounter Date Complaint History Of Prese nt Illness Dental new Dental new, esta b dental care Functional Status Date Functional Assessmen t No Information Instructions Date Instruction Additional Infor mation No Information Assessments Type Assessment Date assessment Encounter for screening for dent al disorders Patient Care Teams Name Effective Dates (start - stop) Status Members No Information
--- OUTSIDE RECORDS SUMMARY | 2024-12-07 11:07 | XMS_ITS | Clinical Summary ---
Author Organization [facility] Address [address] [place], [place] [id number] Care Team Providers Care Salesperson Floor Coverings Name Role Phone Davi Cade DO Primary Care Provider Toby Cummings Unavailable [phone] Allergies Active Allergy Reactions Criticality Noted Date Comments Nitro Other: See Comments 02/13/2016 hypotension Medications finasteride (PROSCAR) 5 mg tablet 01/12/2016 Active promethazine (PHENERGAN) 25 mg tablet 02/09/2016 Active nortriptyline (PAMELOR) 25 mg capsule 10/27/2015 Active oxyCODONE-acetamin ophen (PERCOCET) 5-325 mg tablet 02/07/2016 Act alejandro sulfamethoxazole-t rimethoprim (BACTRIM DS,SEPTRA DS) 800-160 mg per tablet 01/22/2016 Active Active Problems Problem Noted Date Diagnosed Date Prostate cancer 02/13/2016 Family History Medical History Relation Comments Colon Cancer Brother Colon Cancer Father Cancer Mother Relation Status Comments Brother Father Mother Social History Tobacco Use Types Packs/Day Years Used Date Smoking Tobacco: Former Cigars Q uit: 08/14/2015 Alcohol Use Standard Drinks/Week Comments Yes 0 (1 standard drink = 0.6 oz pur e alcohol) occ Sex and Gender Information Value Date Recorded Sex Assigned at Not on file Legal Sex Male 11:22 AM EDT Gender Identity Not on file Sexual Orientation Not on file Last Filed Vital Signs Vital Sign Reading Time Taken Comments Blood Pressure 139/86 03/08/2016 11:16 AM EST Pulse 76 03/08/2016 11:16 AM EST Temperature - - Respiratory Rate 18 03/08/2016 11:16 AM EST Oxygen Saturation 100% 03/08/2016 11:16 AM EST Inhaled Oxygen Concentration - - Weight 86.2 kg (190 lb) 03/08/2016 11:16 AM EST Height 175.3 cm (5' 9 ) 03/08/2016 11:16 AM EST Body Mass Index 28.06 03/08/2016 11:16 AM EST Plan of Treatment Health Maintenance Due Date Last Done Comments Abdominal Aortic Aneurysm Screening 1955 Anxiety Screening 10/18/1973 Depression Screening 10/18/1973 Hepatitis C Screening 10/18/1973 DTaP,Tdap,Td Vaccine (1 - Tdap) 10/18/1974 Lipid Screening 10/18/1990 CT Colonography 10/18/2000 Cologuard (FIT-DNA) 10/18/2000 Colonoscopy 10/18/2000 Colorectal Cancer Screening 10/18/2000 Diabetes Screening 10/18/2000 Fecal Occult Blood 10/18/2000 Sigmoidoscopy 10/18/2000 Pneumococcal Vaccine: 50+ (1 of 1 - PCV) 10/18/2005 Shingrix Vaccine (1 of 2) 10/18/2005 Advance Directive Discussion 02/25/2024 Covid-19 Vaccine (1 - 2024-26 season) 2024 Influenza Vaccine (#1) 2024 RSV Vaccine (1 - 1-dose 75+ series) 10/18/2030 Insurance MEDICARE ADVANTAGE PPO Care Teams Salesperson Floor Coverings Relationship Specialty Start Date End Date Davi Cade DO PCP - General Family Medicine 06/03/13 Toby Cummings [address] [facility] [place] [address] Primary Staff Physician Cardiology 05/12/18
--- OUTSIDE RECORDS SUMMARY | 2024-12-07 11:07 | XMS_ITS | Encounter Summary ---
Author Organization [facility] Address [address] [place] [address] Phone Care Team Providers Care Photonics Engineering Technologist Name Role Phone Jean Fuentes MD Primary Care Provider + Radames Ricks MD Primary Care Provider [phone] Encounter Details Date Type Department Care Team (Late st Contact Info) Description 06/26/2020 Orders Only [facility] [address] [place] [address] Conversion, Onbase Social History Tobacco Use Types Packs/Day Years Used Date Smoking Tobacco: Never Assessed Sex and Gender Information Value Date Recorded Sex Assigned at Not on file Legal Sex Male 1:01 PM EST Gender Identity Not on file Sexual Orientation Not on file documented as of this encounter Plan of Treatment Upcoming Encounters Date Type Department Care Team (Late st Contact Info) Description 04/01/2025 2:50 PM EST Office Visit [facility] [address] [facility] [address] [place] [address] Cecilio Arita MD [address] [facility] [address] [place] [address] Scheduled Orders Name Type Priority Associated Diagnoses Orde r Schedule OUTSIDE LAB SCAN Lab Ordered: 06/26/2020 documented as of this encounter Visit Diagnoses Not on filedocumented in this encounter Care Teams Photonics Engineering Technologist Relationship Specialty Start Date End Date Jean Fuentes MD PCP - General 07/15/18 06/03/22 Radames Ricks MD [address] [place] [address] PCP - General 06/04/22 documented as of this encounter
--- OUTSIDE RECORDS SUMMARY | 2024-12-07 11:08 | XMS_ITS | Encounter Summary ---
Author Organization [facility] Address [address] [place] [address] Care Team Providers Care Instructor Pilot Name Role Phone Davi Cade MD Primary Care Provider [phone] Encounter Details Date Type Department Care Team (Late st Contact Info) Description 07/23/2022 Abstract [facility] [address] [place] [address] Rafaela Mckeon, [facility] [address] [facility] [place] [address] Social History Tobacco Use Types Packs/Day Years Used Date Smoking Tobacco: Some Days Cigarettes Tobacco Cessation:Ready to Q uit: Not Asked; Counseling Given: Not Answered Comments:1-9 cigarettes/day, other tobacco user. Alcohol Use Standard Drinks/Week Comments Not Currently 0 (1 standard drink = 0.6 oz pur e alcohol) Sex and Gender Information Value Date Recorded Sex Assigned at Not on file Legal Sex Male 7:26 PM EDT Gender Identity Not on file Sexual Orientation Not on file documented as of this encounter Plan of Treatment Not on file documented as of this encounter Visit Diagnoses Not on filedocumented in this encounter Care Teams Instructor Pilot Relationship Specialty Start Date End Date Davi Cade MD [address] [place] [address] PCP - General Family Medicine 07/24/22 documented as of this encounter
--- OUTSIDE RECORDS SUMMARY | 2024-12-07 11:08 | XMS_ITS | Clinical Summary ---
Author Organization [facility] Address [address] 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 Active lisinopril 20 mg tablet Take 1 tablet (20 mg) by mouth once daily. 1 Active nortriptyline (Pamelor) 25 mg capsule Take 1 capsule (25 mg) by mouth once daily at bedtime. 1 Active omeprazole (PriLOSEC) [address] capsule Take 1 capsule (40 mg) by mouth once daily. 1 Active oxybutynin XL (Ditropan-XL) 10 mg 24 hr tablet Take 1 tablet (10 mg) by mouth once daily. 1 Active oxyCODONE-acetami nophen (Percocet) 5-325 mg tablet TAKE 1 TABLET Twice daily PRN 1 Active tiZANidine (Zanaflex) 4 mg tablet Take 1 tablet (4 mg) by mouth once daily at bedtime. 1 Active metoprolol tartrate (Lopressor) 25 mg tabletIndications :Sinus tachycardia,Essen tial hypertension Take 1 tablet (25 mg) by mouth 2 times a day. 180 tablet 3 4 02/02/20 25 Active furosemide (Lasix) 20 mg tabletIndications :Essential hypertension Take 1 tablet (20 mg) by mouth once daily in the morning. Take before meals. 90 tablet 3 4 02/02/20 25 Active apixaban (Eliquis) 5 mg tabletIndications :Abdominal aortic aneurysm (AAA) without rupture, unspecified part,Pulmonary embolism, unspecified chronicity, unspecified pulmonary embolism type, unspecified whether acute cor pulmonale present (Multi) Take 1 tablet (5 mg) by mouth 2 times a day. 180 tablet 3 4 02/02/20 25 Active potassium chloride CR 10 mEq ER tabletIndications :Other snf (current) drug therapy Take 1 tablet (10 mEq) by mouth once daily. 90 tablet 3 5 04/01/19 26 Active Active Problems Problem Noted Date Diagnosed Date Former smoker 08/20/2024 AAA (abdominal aortic aneurysm) 11/07/2022 Abnormal EKG 11/07/2022 Dyspnea 11/07/2022 Essential hypertension 11/07/2022 Hyperlipidemia 11/07/2022 Lung crackles 11/07/2022 Mitral regurgitation 11/07/2022 Pulmonary embolism (Multi) 11/07/2022 Pulmonary fibrosis (Multi) 11/07/2022 Sinus tachycardia 11/07/2022 Class 1 obesity with body ma ss index (BMI) of 30.0 to 30.9 in adult 11/07/2022 Other intervertebral disc degeneration, lumbar r egion 11/07/2022 Encounters Date Type Department Care Team Description 11/12/2024 12:22 PM EDT - 11/12/2024 11:59 PM EDT Hospital Encounter [place] [id number] [facility] [address] [place] [address] Essential hypertension; Mitral valve insufficiency, unspecified etiology Discharge Disposition: Home 11/12/2024 Travel 10/11/2024 Results Follow-Up [facility] [address] [place] [phone] Kimberli Irwin RN Vascular US Aorta Iliac Duplex Complete 10/07/2024 7:36 AM EDT - 10/07/2024 11:59 PM EDT [facility] [address] [address] Abdominal aortic aneurysm (AAA) without rupture, unspecified part; Infrarenal abdominal aortic aneurysm (AAA) without rupture Discharge Disposition: Home 10/07/2024 Travel from Last 3 Months Immunizations Immunization Administration Dates Next Due Flu vaccine (IIV4), preserva tive free *Check age/dose* 10/25/2018 Influenza, Seasonal, Quadriv alent, Adjuvanted 12/09/2023 Influenza, Unspecified 11/24/2017 Influenza, seasonal, injectable 12/27/19 22,12/10/2020,01/04/2020,12/19 Moderna SARS-CoV-2 Vaccination 06/21/2020,2020 Pfizer Purple Cap SARS-CoV-2 12/21/2020 Pneumococcal conjugate vacci ne, 13-valent (PREVNAR 13) 12/21/2020 Pneumococcal polysaccharide vaccine, 23-valent, age 2 years and older (PNEUMOVAX 23) 01/04/2020,02/25/2016 Zoster, Unspecified 12/21/2020 Family History Medical History Relation Name Comments Atrial fibrillation Brother Cancer Brother Cancer Father Hypertension Father angina pectoris Father Cancer Mother cardiac disorder Mother Relation Name Status Comments Brother Father Mother Social History Tobacco Use Types Packs/Day Years Used Date Smoking Tobacco: Never Smokeless Tobacco: Never Tobacco Cessation:Counseling Given: Not Answered Alcohol Use Standard Drinks/Week Comments Never 0 (1 standard drink = 0.6 oz pur e alcohol) PHQ-2 Answer Date Recorded Patient Health Questionnaire-2 Score 0 12/09/2022 Sex and Gender Information Value Date Recorded Sex Assigned at Not on file Legal Sex Male 1:01 PM EST Gender Identity Not on file Sexual Orientation Not on file Last Filed Vital Signs Vital Sign Reading Time Taken Comments Blood Pressure 106/66 11/12/2024 1:13 PM EDT Pulse 72 08/20/2024 2:47 PM EDT Temperature - - Respiratory Rate - - Oxygen Saturation - - Inhaled Oxygen Concentration - - Weight 93.4 kg (206 lb) 11/12/2024 1:13 PM EDT Height 175.3 cm (5' 9 ) 11/12/2024 1:13 PM EDT Body Mass Index 30.42 11/12/2024 1:13 PM EDT Plan of Treatment Upcoming Encounters Date Type Department Care Team (Late st Contact Info) Description 04/01/2025 2:50 PM EST Office Visit [facility] [address] [facility] [address] [place] [phone] Cade Arita MD [address] [facility] [address] [place] [address] Health Maintenance Due Date Last Done Comments CT Colonography 1955 Colonoscopy 1955 Colorectal Cancer Screening 1955 FIT-DNA (Cologuard) 1955 FIT 1955 Lipid Panel 1955 Medicare Annual Wellness Visit (AWV) 1955 Sigmoidoscopy 1955 MMR Vaccines (1 of 1 - Standard series) 10/18/1956 Hepatitis C Screening 10/18/1973 DTaP/Tdap/Td Vaccines (1 - Tdap) 10/18/1977 PSA Prostate Cancer Screening 10/18/2005 Zoster Vaccines (1 of 2) 10/18/2005 12/21/2020 RSV High Risk: (Elderly (60+) or Population) (1 - Risk 60-74 years 1-dose series) 2015 COVID-19 Vaccine (4 - season) 2024 12/21/2020, 06/21/2020, 05/09/2020 Influenza Vaccine (#1) 2024 4, 12/26/2021, 12/10/2020, Additional history exists Diabetes Screening 11/07/2025 11/07/2022, 0 11/06/2022, 11/05/2022, Additional history exists Pneumococcal Vaccine (3 of 3 - PCV20 or PCV21) 12/21/2025 12/21/2020, 01/04/2020, 02/25/2016 HIB Vaccines Aged Out No longer eligi ble based on patient's age to complete this topic HPV Vaccines Aged Out No longer eligi ble based on patient's age to complete this topic Hepatitis A Vaccines Aged Out No long er eligible based on patient's age to complete this topic Hepatitis B Vaccines Aged Out No long er eligible based on patient's age to complete this topic IPV Vaccines Aged Out No longer eligi ble based on patient's age to complete this topic Meningococcal Vaccine Aged Out No angelica chip eligible based on patient's age to complete this topic Rotavirus Vaccines Aged Out No longer eligible based on patient's age to complete this topic Procedures Procedure Name Priority Date/Time Associated Diagnosis Comments TRANSTHORACIC ECHO (TTE) COMPLETE Routine 11/12/2024 2:04 PM EDT Essential hypertension Mitral valve insufficiency, unspecified etiology VASC US AORTA ILIAC DUPLEX COMPLETE Routine 10/07/2024 8:11 AM EDT Abdominal aortic aneurysm (AAA) without rupture, unspecified part Infrarenal abdominal aortic aneurysm (AAA) without rupture BASIC METABOLIC PANEL STAT 11/07/2022 10:23 AM EDT from Last 3 Months or Most Recently Relevant to Health Maintenance Results * TRANSTHORACIC ECHO (TTE) COMPLETE (11/12/2024 2:04 PM EDT) AV mn grad 3 mmHg SYNGO AV pk jos 1.18 m/s SYNGO LV Biplane EF 67 % SYNGO LVOT diam 2.14 cm SYNGO MV E/A ratio 1.00 SYNGO Tricuspid annular plane systolic excursion 2.3 cm SYNGO MV avg E/e' ratio 9.37 SYNGO LA vol index A/L 13.2 ml/m2 SYNGO LV EF 63 % SYNGO RV free wall pk S' 17.60 cm/s SYNGO RVSP 30 mmHg SYNGO LVIDd 4.78 cm SYNGO Aortic Valve Area by Continuity of Peak Velocity 2.61 cm2 SYNGO AV pk grad 6 mmHg SYNGO Aortic Valve Area by Continuity of VTI 2.96 cm2 SYNGO LV A4C EF 60.4 SYNGO 11/12/2024 1:12 PM EDT Impressions SYNGO - 11/12/2024 5:54 PM EDT CONCLUSIONS: 1. Left ventricular ejection fraction is normal by visual estimate at 60-65%. 2. Spectral Doppler shows a Grade I (impaired relaxation pattern) of left ventricular diastolic filling with normal left atrial filling pressure. 3. Sigmoid septum, normal variant. 4. There is normal right ventricular global systolic function. 5. The Doppler estimated RVSP is within normal limits at 30 mmHg. 6. When compared to study from 2021, the right ventricular systolic function and size have returned to normal, RVSP has dropped from 60 mmHg down to 30 mmHg, the previously reported moderate aortic root dilatation is no longer seen. Narrative SYNGO - 11/12/2024 5:54 PM EDT [address], [address], [place] [address] TRANSTHORACIC ECHOCARDIOGRAM REPORT Patient Name: ERIK HURD Reading Physician: [id number] Cade Arita MD, [facility] Study Date: 11/12/2024 Ordering Provider: [id number] CADE ARITA MRN/PID: [id number] Fellow: Nurse: Date of /Age: 8 1955 Online Marketing Strategist: Letty Chávez RDCS years Gender Assigned at Additional Staff: : Height: 175.26 cm Admit Date: Weight: 92.08 kg Admission Status: Outpatient BSA / BMI: 2.08 m2 / 29.98 Department Location: [facility] Heart kg/m2 [place] Study Type: TRANSTHORACIC ECHO (TTE) COMPLETE Diagnosis/ICD: Essential (primary) hypertension-I10; Nonrheumatic mitral (valve) insufficiency-I34.0 Indication: Hx Pulmonary Embolism, HLD, Former Smoker, CKD Stage III, Obesity, AAA, Pulmonary Fibrosis CPT Codes: Echo Complete w Full Doppler-[id number] Study Detail: The following Echo studies were performed: 2D, M-Mode, Doppler and color flow. PHYSICIAN INTERPRETATION: Left Ventricle: Left ventricular ejection fraction is normal by visual estimate at 60-65%. There are no regional wall motion abnormalities. The left ventricular cavity size is normal. There is normal septal thickness. There is left ventricular concentric remodeling. Spectral Doppler shows a Grade I (impaired relaxation pattern) of left ventricular diastolic filling with normal left atrial filling pressure. Sigmoid septum, normal variant. Left Atrium: The left atrial size is normal. Right Ventricle: The right ventricle is normal in size. There is normal right ventricular global systolic function. Right Atrium: The right atrial size is normal. Aortic Valve: The aortic valve is trileaflet. The aortic valve area by VTI is 2.96 cm with a peak velocity of 1.18 m/s. The peak and mean gradients are 6 mmHg and 3 mmHg, respectively, with a dimensionless index of 0.83. There is no evidence of aortic valve regurgitation. Mitral Valve: The mitral valve is mildly thickened. The doppler estimated peak and mean diastolic gradients are 4 mmHg and 1 mmHg, respectively. There is trace to mild mitral valve regurgitation. The E Vmax is 0.81 m/s. Tricuspid Valve: The tricuspid valve is structurally normal. There is trace tricuspid regurgitation. The Doppler estimated right ventricular systolic pressure (RVSP) is within normal limits at 30 mmHg. Pulmonic Valve: The pulmonic valve is structurally normal. There is no indication of pulmonic valve regurgitation. Pericardium: No pericardial effusion noted. Aorta: The aortic root is normal. Systemic Veins: The inferior vena cava appears normal in size, IVC inspiratory collapse is not well visualized. In comparison to the previous echocardiogram(s): When compared to study from 2021, the right ventricular systolic function and size have returned to normal, RVSP has dropped from 60 mmHg down to 30 mmHg, the previously reported moderate aortic root dilatation is no longer seen. CONCLUSIONS: 1. Left ventricular ejection fraction is normal by visual estimate at 60-65%. 2. Spectral Doppler shows a Grade I (impaired relaxation pattern) of left ventricular diastolic filling with normal left atrial filling pressure. 3. Sigmoid septum, normal variant. 4. There is normal right ventricular global systolic function. 5. The Doppler estimated RVSP is within normal limits at 30 mmHg. 6. When compared to study from 2021, the right ventricular systolic function and size have returned to normal, RVSP has dropped from 60 mmHg down to 30 mmHg, the previously reported moderate aortic root dilatation is no longer seen. QUANTITATIVE DATA SUMMARY: 2D MEASUREMENTS: Normal Ranges: LAs: 3.14 cm (2.7-4.0cm) RVIDd: 3.29 cm (0.9-3.6cm) IVSd: 0.99 cm (0.6-1.1cm) LVPWd: 1.15 cm (0.6-1.1cm) LVIDd: 4.78 cm (3.9-5.9cm) LVIDs: 3.45 cm LV Mass Index: 88.9 g/m2 LVEDV Index: 32.70 ml/m2 LV % FS 27.7 % LEFT ATRIUM: Normal Ranges: LA Vol A4C: 23.0 ml (22+/-6mL/m2) LA Vol A2C: 30.3 ml LA Vol BP: 27.5 ml LA Vol Index A4C: 11.1ml/m2 LA Vol Index A2C: 14.6 ml/m2 LA Vol Index BP: 13.2 ml/m2 LA Vol A4C: 21.7 ml LA Vol A2C: 28.1 ml LA Vol Index BSA: 12.0 ml/m2 LV SYSTOLIC FUNCTION: Normal Ranges: EF-A4C View: 60 % (>=55%) EF-A2C View: 71 % EF-Biplane: 67 % EF-Visual: 63 % LV EF Reported: 63 % LV DIASTOLIC FUNCTION: Normal Ranges: MV Peak E: 0.81 m/s (0.7-1.2 m/s) MV Peak A: 0.81 m/s (0.42-0.7 m/s) E/A Ratio: 1.00 (1.0-2.2) MV e' 0.082 m/s (>8.0) MV lateral e' 0.09 m/s MV medial e' 0.08 m/s E/e' Ratio: 9.86 (<8.0) PulmV Sys Jos: 67.14 cm/s PulmV Mendoza Jos: 48.66 cm/s PulmV S/D Jos: 1.38 PulmV A Revs Jos: 27.95 cm/s PulmV A Revs Dur: 87.54 msec MITRAL VALVE: Normal Ranges: MV Vmax: 0.99 m/s (<=1.3m/s) MV peak P.9 mmHg (<5mmHg) MV mean P.3 mmHg (<48mmHg) MV VTI: 26.33 cm (10-13cm) MV DT: 224 msec (150-240msec) MITRAL INSUFFICIENCY: Normal Ranges: MR Vmax: 498.16 cm/s dP/dt: 2080 mmHg/s (>1200mmHg/sec) AORTIC VALVE: Normal Ranges: AoV Vmax: 1.18 m/s (<=1.7m/s) AoV Peak P.5 mmHg (<20mmHg) AoV Mean P.9 mmHg (1.7-11.5mmHg) LVOT Max Jos: 0.86 m/s (<=1.1m/s) AoV VTI: 22.02 cm (18-25cm) LVOT VTI: 18.21 cm LVOT Diameter: 2.14 cm (1.8-2.4cm) AoV Area, VTI: 2.96 cm2 (2.5-5.5cm2) AoV Area,Vmax: 2.61 cm2 (2.5-4.5cm2) AoV Dimensionless Index: 0.83 RIGHT VENTRICLE: RV Basal 2.68 cm RV Major 6.4 cm TAPSE: 22.7 mm RV s' 0.18 m/s TRICUSPID VALVE/RVSP: Normal Ranges: Peak TR Velocity: 2.60 m/s Est. RA Pressure: 3 mmHg RV Syst Pressure: 30 mmHg (< 30mmHg) IVC Diam: 1.92 cm PULMONARY VEINS: PulmV A Revs Dur: 87.54 msec PulmV A Revs Jos: 27.95 cm/s PulmV Mendoza Jos: 48.66 cm/s PulmV S/D Jos: 1.38 PulmV Sys Jos: 67.14 cm/s AORTA: Asc Ao Diam 3.53 cm [id number] Cade Arita MD, [facility] Electronically signed on 11/12/2024 at 5:54:13 PM Final Procedure Note Cade Arita MD - 11/12/[address], [address] [place] [address] TRANSTHORACIC ECHOCARDIOGRAM REPORT Patient Name: ERIK Mckoy Physician: [id number] Arita MD,[facility] Study Date: 11/12/2024 Ordering Provider: [id number] MEGAN ARITA MRN/PID: [id number] Fellow: Nurse: Date of /Age: 8 1955 Online Marketing Strategist: Letty sarmiento Gender Assigned at M Additional Staff: : Height: 175.26 cm Admit Date: Weight: 92.08 kg Admission Status: Outpatient BSA / BMI: 2.08 m2 / 29.98 Department Location: [facility] kg/m2 [place] Study Type: TRANSTHORACIC ECHO (TTE) COMPLETE Diagnosis/ICD: Essential (primary) hypertension-I10; Nonrheumatic mitral(valve) insufficiency-I34.0 Indication: Hx Pulmonary Embolism, HLD, Former Smoker, CKD Stage III, Obesity, AAA, Pulmonary Fibrosis CPT Codes: Echo Complete w Full Doppler-[id number] Study Detail: The following Echo studies were performed: 2D, M-Mode,Doppler and color flow. PHYSICIAN INTERPRETATION: Left Ventricle: Left ventricular ejection fraction is normal by visualestimate at 60-65%. There are no regional wall motion abnormalities. Theleft ventricular cavity size is normal. There is normal septal thickness.There is left ventricular concentric remodeling. Spectral Doppler shows aGrade I (impaired relaxation pattern) of left ventricular diastolicfilling with normal left atrial filling pressure. Sigmoid septum, normalvariant. Left Atrium: The left atrial size is normal. Right Ventricle: The right ventricle is normal in size. There is normalright ventricular global systolic function. Right Atrium: The right atrial size is normal. Aortic Valve: The aortic valve is trileaflet. The aortic valve area by VTIis 2.96 cm with a peak velocity of 1.18 m/s. The peak and mean gradientsare 6 mmHg and 3 mmHg, respectively, with a dimensionless index of 0.83.There is no evidence of aortic valve regurgitation. Mitral Valve: The mitral valve is mildly thickened. The doppler estimatedpeak and mean diastolic gradients are 4 mmHg and 1 mmHg, respectively.There is trace to mild mitral valve regurgitation. The E Vmax is 0.81m/s. Tricuspid Valve: The tricuspid valve is structurally normal. There istrace tricuspid regurgitation. The Doppler estimated right ventricularsystolic pressure (RVSP) is within normal limits at 30 mmHg. Pulmonic Valve: The pulmonic valve is structurally normal. There is noindication of pulmonic valve regurgitation. Pericardium: No pericardial effusion noted. Aorta: The aortic root is normal. Systemic Veins: The inferior vena cava appears normal in size, IVCinspiratory collapse is not well visualized. In comparison to the previous echocardiogram(s): When compared to studyfrom 2021, the right ventricular systolic function and size have returnedto normal, RVSP has dropped from 60 mmHg down to 30 mmHg, the previouslyreported moderate aortic root dilatation is no longer seen. CONCLUSIONS: 1. Left ventricular ejection fraction is normal by visual estimate at60-65%. 2. Spectral Doppler shows a Grade I (impaired relaxation pattern) of leftventricular diastolic filling with normal left atrial filling pressure. 3. Sigmoid septum, normal variant. 4. There is normal right ventricular global systolic function. 5. The Doppler estimated RVSP is within normal limits at 30 mmHg. 6. When compared to study from 2021, the right ventricular systolicfunction and size have returned to normal, RVSP has dropped from 60 mmHgdown to 30 mmHg, the previously reported moderate aortic root dilatationis no longer seen. QUANTITATIVE DATA SUMMARY: 2D MEASUREMENTS: Normal Ranges: LAs: 3.14 cm (2.7-4.0cm) RVIDd: 3.29 cm (0.9-3.6cm) IVSd: 0.99 cm (0.6-1.1cm) LVPWd: 1.15 cm (0.6-1.1cm) LVIDd: 4.78 cm (3.9-5.9cm) LVIDs: 3.45 cm LV Mass Index: 88.9 g/m2 LVEDV Index: 32.70 ml/m2 LV % FS 27.7 % LEFT ATRIUM: Normal Ranges: LA Vol A4C: 23.0 ml (22+/-6mL/m2) LA Vol A2C: 30.3 ml LA Vol BP: 27.5 ml LA Vol Index A4C: 11.1ml/m2 LA Vol Index A2C: 14.6 ml/m2 LA Vol Index BP: 13.2 ml/m2 LA Vol A4C: 21.7 ml LA Vol A2C: 28.1 ml LA Vol Index BSA: 12.0 ml/m2 LV SYSTOLIC FUNCTION: Normal Ranges: EF-A4C View: 60 % (>=55%) EF-A2C View: 71 % EF-Biplane: 67 % EF-Visual: 63 % LV EF Reported: 63 % LV DIASTOLIC FUNCTION: Normal Ranges: MV Peak E: 0.81 m/s (0.7-1.2 m/s) MV Peak A: 0.81 m/s (0.42-0.7 m/s) E/A Ratio: 1.00 (1.0-2.2) MV e' 0.082 m/s (>8.0) MV lateral e' 0.09 m/s MV medial e' 0.08 m/s E/e' Ratio: 9.86 (<8.0) PulmV Sys Jos: 67.14 cm/s PulmV Mendoza Jos: 48.66 cm/s PulmV S/D Jos: 1.38 PulmV A Revs Jos: 27.95 cm/s PulmV A Revs Dur: 87.54 msec MITRAL VALVE: Normal Ranges: MV Vmax: 0.99 m/s (<=1.3m/s) MV peak P.9 mmHg (<5mmHg) MV mean P.3 mmHg (<48mmHg) MV VTI: 26.33 cm (10-13cm) MV DT: 224 msec (150-240msec) MITRAL INSUFFICIENCY: Normal Ranges: MR Vmax: 498.16 cm/s dP/dt: 2080 mmHg/s (>1200mmHg/sec) AORTIC VALVE: Normal Ranges: AoV Vmax: 1.18 m/s (<=1.7m/s) AoV Peak P.5 mmHg (<20mmHg) AoV Mean P.9 mmHg (1.7-11.5mmHg) LVOT Max Jos: 0.86 m/s (<=1.1m/s) AoV VTI: 22.02 cm (18-25cm) LVOT VTI: 18.21 cm LVOT Diameter: 2.14 cm (1.8-2.4cm) AoV Area, VTI: 2.96 cm2 (2.5-5.5cm2) AoV Area,Vmax: 2.61 cm2 (2.5-4.5cm2) AoV Dimensionless Index: 0.83 RIGHT VENTRICLE: RV Basal 2.68 cm RV Major 6.4 cm TAPSE: 22.7 mm RV s' 0.18 m/s TRICUSPID VALVE/RVSP: Normal Ranges: Peak TR Velocity: 2.60 m/s Est. RA Pressure: 3 mmHg RV Syst Pressure: 30 mmHg (< 30mmHg) IVC Diam: 1.92 cm PULMONARY VEINS: PulmV A Revs Dur: 87.54 msec PulmV A Revs Jos: 27.95 cm/s PulmV Mendoza Jos: 48.66 cm/s PulmV S/D Jos: 1.38 PulmV Sys Jos: 67.14 cm/s AORTA: Asc Ao Diam 3.53 cm [id number] Cade Arita MD, [facility] Electronically signed on 11/12/2024 at 5:54:13 PM Final IMPRESSION: CONCLUSIONS: 1. Left ventricular ejection fraction is normal by visual estimate at60-65%. 2. Spectral Doppler shows a Grade I (impaired relaxation pattern) of leftventricular diastolic filling with normal left atrial filling pressure. 3. Sigmoid septum, normal variant. 4. There is normal right ventricular global systolic function. 5. The Doppler estimated RVSP is within normal limits at 30 mmHg. 6. When compared to study from 2021, the right ventricular systolicfunction and size have returned to normal, RVSP has dropped from 60 mmHgdown to 30 mmHg, the previously reported moderate aortic root dilatationis no longer seen. us Cade Arita MD CV ECHO PROCEDURES Final Res ult SYNGO * Vascular US Aorta Iliac Duplex Complete (10/07/2024 8:11 AM EDT) Anatomical Region Laterality Modality Abdomen Echocardiography 10/07/2024 7:46 AM EDT Narrative 10/10/2024 11:35 AM EDT [address], [address] [place] [address] Vascular Lab Report VASC US AORTA ILIAC DUPLEX COMPLETE Patient Name: ERIK HURD [place] Physician: [id number] Cade Arita MD, [facility] Study Date: 10/07/2024 Ordering Provider: [id number] CADE ARITA MRN/PID: [id number] Fellow: Technologist: Karol Hull RD, T Date of /Age: 8 1955 / 68 years Technologist 2: Gender: M Admission Status: Outpatient Location Performed: [facility] Diagnosis/ICD: Abdominal aortic aneurysm, without rupture, unspecified-I71.40; Infrarenal abdominal aortic aneurysm, without rupture-I71.43 Indication: History of PE, CKD-Stage III, Obesity, Pulmonary Fibrosis, HTN, Hyperlipidemia, Former Smoker CPT Codes: 24557 Duplex Aorta/IVC/Iliac/Bypass Graft CONCLUSIONS: Aorta/Common Iliac Arteries/IVC: [...] Proximal 1.23 cm 1.45 cm 36.00 cm/s [id number] Arita MD, FACC Final Procedure Note Cade Arita MD - 10/10/[address], [address] [place] [address] Vascular Lab Report [facility] US AORTA ILIAC DUPLEX COMPLETE Patient Name: ERIK Mckoy Physician: Paulino Guadarrama MD, FACC Study Date: 10/07/2024 Ordering Provider: Paulino ARITA MRN/PID: [id number] Fellow: Technologist: Karol Keith RVT Date of /Age: 8 1955 / 68 years Technologist 2: Gender: M Admission Status: Outpatient Location Performed: [facility] Diagnosis/ICD: Abdominal aortic aneurysm, without rupture,unspecified-I71.40; Infrarenal abdominal aortic aneurysm, withoutrupture-I71.43 Indication: History of PE, CKD-Stage III, Obesity, Pulmonary Fibrosis,HTN, Hyperlipidemia, Former Smoker CPT Codes: 99929 Duplex Aorta/IVC/Iliac/Bypass Graft CONCLUSIONS: Aorta/Common Iliac Arteries/IVC: Small infrarenal abdominal aorticaneurysm measuring 3.16 x 3.24 cm AP/transverse diameter respectively, itmeasures 5.68 cm in length with no thrombus, when compared to history from07/31/2022, no significant interval changes were seen. Imaging & Doppler Findings: AORTA AP Lateral PSV Proximal 2.58 cm 2.53 cm 43.5 cm/s Mid 1.72 cm 2.78 cm 34.6 cm/s Distal 3.16 cm 3.24 cm 33.2 cm/s RIGHT AP Lateral PSV KARMA Proximal 0.60 cm 0.79 cm 25.00 cm/s LEFT AP Lateral PSV KARMA Proximal 1.23 cm 1.45 cm 36.00 cm/s [id number] Cade Arita MD, FACC at11:35:29 AM Final us Cade Arita MD CV VASCULAR PROCEDURES Final Result * (ABNORMAL) Basic Metabolic Panel (11/07/2022 10:23 AM EDT) Glucose 106(H) 74 - 99 mg/dL [facility] Sodium 135(L) 136 - 145 mmol/L [facility] Potassium 4.5 3.5 - 5.3 mmol/L [facility] Chloride 101 98 - 107 mmol/L [facility] Bicarbonate 29 21 - 32 mmol/L [facility] Anion Gap 10 10 - 20 mmol/L [facility] Urea Nitrogen 13 6 - 23 mg/dL [facility] Creatinine 1.15 0.50 - 1.30 mg/dL [facility] GFR MALE 70 >90 mL/min/1.7 3m2 [facility] Comment: CALCULATIONS OF ESTIMATED GFR ARE PERFORMED USING THE 2020 CKD-EPI STUDY REFIT EQUATION WITHOUT THE RACE VARIABLE FOR THE IDMS-TRACEABLE CREATININE METHODS. https://jasn.asnjournals.org/content/early//ASN.0690582397 Calcium 8.9 8.6 - 10.3 mg/dL [facility] 11/07/2022 10:2 3 AM EDT 11/07/2022 10:29 AM EDT us Heidy Escobar [employer]ET[employer]PERATIONS MANAGER[employer] [facility] BLOOD ORDERABLES Fi nal Result [facility] [address] [place] [address] from Last 3 Months or Most Recently Relevant to Health Maintenance Insurance [facility] DUAL COMPLETE 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
--- OUTSIDE RECORDS SUMMARY | 2024-12-07 11:08 | XMS_ITS | Encounter Summary ---
Author Organization [facility] Address [address] [place] [address] Phone Care Team Providers Care Crm Coordinator Name Role Phone Jean Fuentes MD Primary Care Provider + Radames Ricks MD Primary Care Provider [phone] Encounter Details Date Type Department Care Team (Late st Contact Info) Description 10/09/2021 Orders Only [facility] [address] [place] [address] Conversion, Onbase Social History Tobacco Use Types [...] Description 04/01/2025 2:50 PM EST Office Visit [facility] [address] [facility] [address] [place] [address] Cecilio Arita MD [address] [facility] [address] [place] [address] Scheduled Orders Name Type Priority Associated Diagnoses Orde r Schedule OUTSIDE LAB SCAN Lab Ordered: 10/09/2021 documented as of this encounter Visit Diagnoses Not on filedocumented in this encounter Care Teams Crm Coordinator Relationship Specialty Start Date End Date Jean Fuentes MD PCP - General 07/15/18 06/03/22 Radames Ricks MD [address] [place] [address] PCP - General 06/04/22 documented as of this encounter
--- OUTSIDE RECORDS SUMMARY | 2024-12-07 11:08 | XMS_ITS | Clinical Summary ---
Author Organization [facility] Address [address] [place] [address] Care Team Providers Care Box Stapler Name Role Phone Davi Cade MD Primary Care Provider [phone] Medications lisinopril 20 MG tabletIndication s:Essential hypertension, benign TAKE 1 TABLET BY MOUTH EVERY DAY 90 tablet 5 04/07/2024 Active Family History Medical History Relation Name Comments Cancer Father Heart disease Father Heart disease Father's Brother Heart disease Father's Sister Heart disease Maternal Grandfather Heart disease Maternal Grandmother Asthma Mother Cancer Mother Heart disease Mother Asthma Mother's Brother Heart disease Paternal Grandfather Heart disease Paternal Grandmother Cancer Sibling Diabetes Sibling Heart disease Sibling Relation Name Status Comments Father Father's Brother Father's Sister Maternal Grandfather Maternal Grandmother Mother Mother's Brother Paternal Grandfather Paternal Grandmother Sibling Social History Tobacco Use Types Packs/Day Years [...] on file Sexual Orientation Not on file Plan of Treatment Not on file Insurance [employer] Care Teams Box Stapler Relationship Specialty Start Date End Date Davi Cade MD [address] [place] [id number] PCP - General Family Medicine 07/24/22
--- OUTSIDE RECORDS SUMMARY | 2024-12-07 11:08 | XMS_ITS | Encounter Summary ---
Author Organization [facility] Address [address] [place] [address] Phone Care Team Providers Care Director Client Name Role Phone Radames Ricks MD Primary Care Provider [phone] Encounter Details Date Type Department Care Team (Late st Contact Info) Description 11/04/2022 Scanned Document [facility] [address] [place] [address] Conversion, Onbase Social History Tobacco Use Types [...] Description 04/01/2025 2:50 PM EST Office Visit [place] [id number] [facility] [address] [place] [address] Cecilio Arita MD [address] [facility] [address] [place] [address] documented as of this encounter Visit Diagnoses Not on filedocumented in this encounter Care Teams Director Client Relationship Specialty Start Date End Date Radames Ricks MD [address] [place] [address] PCP - General 06/04/22 documented as of this encounter
--- OUTSIDE RECORDS SUMMARY | 2024-12-07 11:08 | XMS_ITS | Clinical Summary ---
Author Organization [employer] [facility] tem Address [id number] [address] [place] [address] Care Team Providers Care Floating Derrick Operator Name Role Phone Davi Cade DO Primary Care Provider Leonor lablaura Allergies Active Allergy Reactions Criticality Noted Date Comments Nitro Hypotension 02/13/2016 hypotension Medications tiZANidine (ZANAFLEX) 4 mg tablet Take 4 mg by mouth nightly. 2 10/28/2017 Active oxyCODONE-aceta minophen (PERCOCET) 5-325 mg per tablet 1 tablet 2 (two) times a day as needed. 0 10/17/2017 Active omeprazole (PriLOSEC) 40 mg capsule Take 1 capsule (40 mg total) by mouth daily. 30 capsule 1 12/05/2017 Active oxybutynin (DITROPAN) 5 mg tablet Take 5 mg by mouth daily. 3 12/22/2017 Active Active Problems No known active problems Family History Medical History Relation Name Comments Colon cancer Brother Diabetes Brother Colon cancer Father Heart disease Mother Hypertension Mother Relation Name Status Comments Brother Father Mother Social History Tobacco Use Types Packs/Day Years Used Date Smoking Tobacco: Former Smokeless Tobacco: Current Chew Comments:quit 5 years ago Alcohol Use Standard Drinks/Week Comments No 0 (1 standard drink = 0.6 oz pur e alcohol) Childcare Answer Date Recorded Childcare Unknown 08/05/2018 Employment Answer Date Recorded Employment Unknown 08/05/2018 Purpose - Life Answer Date Recorded Purpose and direction in life Unknown Sex and Gender Information Value Date Recorded Sex Assigned at Not on file Legal Sex Male 11:22 AM EDT Gender Identity Not on file Sexual Orientation Not on file Last Filed Vital Signs Vital Sign Reading Time Taken Comments Blood Pressure 150/88 02/10/2018 8:40 AM EST Pulse - - Temperature - - Respiratory Rate - - Oxygen Saturation - - Inhaled Oxygen Concentration - - Weight 82.1 kg (181 lb) 02/10/2018 8:40 AM EST Height 175.3 cm (5' 9 ) 02/10/2018 8:40 AM EST Body Mass Index 26.73 02/10/2018 8:40 AM EST Plan of Treatment Health Maintenance Due Date Last Done Comments Depression Screening 1967 Tobacco Screening 1967 Adult BMI Screening 10/18/1973 DTaP,Tdap and Td Vaccines (1 - Tdap) 10/18/1974 Fall Risk Screening 10/18/2020 Zoster (Shingles) Vaccine (2 of 2) 02/15/2021 12/21/2020 Colonoscopy 11/26/2022 11/26/2017 COVID-19 Vaccine (4 - 2024-2 6 season) 2024 12/21/2020, 06/21/2020, 05/09/2020 Influenza Vaccine 10/25/2024 12/26/2021, , 01/04/2020, Additional history exists Medical Devices Not on file Insurance [employer] Care Teams Floating Derrick Operator Relationship Specialty Start Date End Date Davi Cade DO PCP - General 09/26/17
--- OUTSIDE RECORDS SUMMARY | 2024-12-07 11:11 | XMS_ITS | CCD ---
Author Organization [facility] Care Team Providers Care [address] Name Role Phone Jean Nicholson Unavailable Unavailable Unavailable Julian Matthews Unavailable [phone] iBanka Garcia Unavailable Danna Mcdaniel Unavailable Radames Witt Unavailable BAUMANN ., LAUREN Consulting Unavailable [...] Primary Care Unavailable JUAN, KATHERINE Attending Unavailable JUNA, KATHERINE Admitting Unavailable JUAN, KATHERINE Consulting Unavailable RAINER ., DR PICHARDO Consulting Unavailable JUAN, KATHERINE Primary Care Unavailable SPEAR ., DR PICHARDO Attending Unavailable SPEAR ., DR PICHARDO Admitting Unavailable ZIEBER, DR [...] Primary Care Unavailable PALENCIA, DRAGAN Consulting Unavailable ANDERSON ., DR LORENA Dunham Consulting Unavailable JUAN, [...] Cecilio Harman Referring Aracely vailable Go, Dr. eCcilio Harman Attending Aracely vailable Miryam, Dr. Radames Fabian Primary Care Unavail able Go, Dr. Cecilio Harman Referring Aracely vailable Go, Dr. Cecilio Harman Attending Aracely Radames Connor Unavailable Curtis Meléndez Unavailable Cayden Flores Unavailable Unavailable Cecilio Go Unavailable Dr. Radames Witt Primary Care Unavail able Ángela, Dr. Curtis Keys Attending Leonor Meléndez, Dr. Curtis Keys Attending Leonor Witt, Dr. Radames Fabian Primary Care Unavail able Miryam, Dr. Radames Fabian Primary Care Unavail able Ángela, Dr. Curtis Keys Attending Leonor Meléndez, Dr. Curtis Keys Attending Leonor Witt, Dr. Radames Fabian Primary Care Unavail able Miryam, Dr. Radames Fabian Primary Care Unavail able Ángela, Dr. Curtis Keys Attending Leonor Go, Dr. Cecilio Harman Attending Aracely olga Witt, Dr. Radames Fabian Primary Care Unavail able Ángela, Dr. Curtis Keys Attending Leonor Meléndez, Dr. Curtis Keys Admitting Leonor Witt, Dr. Radames Fabian Referring Unavail able Miryam, Dr. Radames Fabian Primary Care Unavail able Radames Witt Primary Care Physician [phone] Radames Witt MD Primary Care Provider [phone] MD Jean Nicholson Primary Care Provider Violeta, JESSICA Clay Attending Provider MD Radames Witt Primary Care Provider [id number] MD Radames Witt Primary Care Provider [phone] EDEL Garcia Attending Provider Bianka Garcia Attending Unavailable Bianka Garcia Admitting Unavailable Radames Witt Primary Care Unavailable Violeta, Danna Attending Unavailable Violeta Danna Admitting Unavailable Radames Witt Primary Care Unavailable Violeta, Danna Admitting Unavailable Jean Nicholson Primary Care Unavailable Violeta, Danna Attending Unavailable Marino SPEAR Attending Unavailable Marino SPEAR Attending Unavailable ALAN HURST Attending Unavailable Marino SPEAR Admitting Unavailable Marino SPEAR Attending Unavailable ALAN HURST Attending Unavailable ALAN HURST Attending Unavailable Reese JIMENEZ, Andregla Boland Attending Unavailable Reese JIEMNEZ, Andrius Boland Attending Unavailable Reese JIMENEZ, Andrius Boland Attending Unavailable Reese JIMENEZ, Andrius Boland Attending Unavailable Radames Witt MD Primary Care Provider CECILIO GO Attending Unavailable CECILIO GO Referring Unavailable RADAMES WITT Primary Care Unavailable CECILIO GO Attending Unavailable CECILIO GO Referring Unavailable RADAMES WITT Primary Care Unavailable CECILIO GO Referring Unavailable RADAMES WITT Primary Care Unavailable CECILIO GO Referring Unavailable RADAMES WITT Primary Care Unavailable Radames Witt MD Primary Care Provider [phone] Violeta CONSULTING DATABASE ADMINISTRATOR, Danna Attending Provider Allergies Allergy Classification Reported Allergen(s) Allergy Type Date of Onset Reaction(s) Facility Nitrate Vasodilator (1 source) Nitroglycerin Drug Allergy 4 Unresponsive [facility] (20 sources) Nitroglycerin; Translations: [nitroglycerin] Drug Allergy 2 Other [facility] Comment on above: Patient states his h eart stopped. (9 sources) Nitroglycerin Drug Allergy Unknown [facility] Other (1 source) Aminolevulinic Acid Drug Allergy [facility] Rep[facility] (2 sources) Nitroglycerin Drug Allergy 2 [facility] Repository Medications Current Medications Medication Drug [...] 1 tablet by siobhan th twice daily as needed for pain Oxycodone-Acetaminophen 5-325 mg tablet Active 1 TAB PO Twice daily as needed for Pain July 14, 2021 12:00am Complies with drug therapy Start: 02-01-2021 oxyCODONE-Acet aminophen 5-325 MG Oral [...] inhalation solution (20 sources) beta2-Adrenergic Agonist Start: End: take 2.5 mg by inhalation every six hours Albuterol Sulfate 2.5 mg /3 mL (0.083 %) solution for nebulization Active 2.5 MG INHALATION Q6H 360 November 17, 2023 11:06am DX Bronchiectasis J47.9 Complies with drug therapy Start: 07-14-2021 take 1 puff(s) by in halation every four hours as needed for wheezing Albuterol Sulfate 90 mcg/actuation HFA aerosol inhaler Active 2 PUFF INHALATION Q4H as needed for Shortness Of Breath Or Wheezing July 14, 2021 12:00am Complies with drug therapy Start: 01-26-2021 Albuterol Sulf ate HFA 108 [...] Every 12 hours April 09, 2023 1:00am Complies with drug therapy Start: 07-16-2021 End: 04-09-2023 take 1 tablet by mouth twice daily Apixaban (Eliquis Dvt-Pe Treat 30d Start) 5 mg (74 tabs) Tablets,Dose Pack Discontinued 0 .ROUTE .COMPLEX July 16, 2021 12:00am April 09, 2023 11:29am orally per package directions then 5mg twice daily after completion of starter pack atorvastatin 40 mg oral tablet (20 sources) HMG-CoA Reductase Inhibitor Start: 07-16-2021 take 1 tablet by mouth once daily in the evening Atorvastatin 40 mg Tablet Active 40 MG PO Every evening July 16, 2021 12:00am Complies with drug therapy Baclofen (19 sources) gamma-Aminobutyr ic Acid-ergic Agonist Start: 12-23-2022 BACLOFEN 10MG TAB BACLOFEN 10MG TAB Start Date: 12/23/22 Status: Ordered Start: 07-14-2021 take 1 tablet by mouth once da patsy Baclofen 10 mg tablet Active 10 MG PO Daily July 14, 2021 12:00am Complies with drug therapy Baclofen Active celecoxib 200 mg oral capsule [...] take 1 tablet by mouth once daily Furosemide 20 mg tablet Active 20 MG PO Daily at 0800 July 14, 2021 12:00am Complies with drug therapy lisinopril 20 mg oral tablet (20 sources) Angiotensin Converting Enzyme Inhibitor Start: 12-18-2020 take 1 tablet by mouth once daily Lisinopril 20 mg tablet Active 20 MG PO Daily July 14, 2021 12:00am Complies with drug therapy melatonin 10 mg extended release oral tablet (4 sources) Melatonin 10 MG as directed Orally Active metoprolol tartrate 25 mg oral tablet (20 sources) beta-Adrenergic Sushant Start: 02-06-2021 End: 02-01-2025 take 1 tablet by mouth twice daily Metoprolol Tartrate 25 mg tablet Active 25 MG PO Twice daily July 14, 2021 12:00am Complies with drug therapy take 1 tablet by siobhan th every [...] Start: 01-30-20 take 1 capsule by mouth at bedtime Nortriptyline 25 mg capsule Active 25 MG PO Bedtime July 14, 2021 12:00am Complies with drug therapy omeprazole 40 mg delayed release oral capsule (20 sources) Proton Pump Inhibitor Start: 01-12-20 take 1 capsule by mouth once daily Omeprazole 40 mg capsule,delayed release(DR/EC) Active 40 MG PO Daily at 0800 July 14, 2021 12:00am Complies with drug therapy Start: 12-18-2020 omeprazole Ora l, Daily, Refills(s) [...] take 1 tablet by mouth once daily Oxybutynin Chloride 10 mg tablet extended release 24 hr Active 10 MG PO Daily July 14, 2021 12:00am Complies with drug therapy potassium chloride 10 meq extended release oral tablet (20 sources) Start: 12-18-2020 take 1 tablet by mouth twice daily potassium chloride 10 mEq ER Tab mEq tab(s), Oral, BID, Refills(s) 0 Start Date: 12/18/20 Status: Ordered Start: 10-24-2020 End: 04-01-2025 take 1 tablet by mouth once daily potassium chloride CR 10 mEq ER tablet Indications: Other shelter (current) drug therapy Take 1 tablet (10 mEq) by mouth once daily. 90 tablet 3 04/01/2024 04/01/2025 Active sildenafil 50 mg oral tablet (1 source) Phosphodiesterase 5 Inhibitor Start: 03-29-2024 Viagra 50 mg Tab See Instructions, 1-2 tabs po 1 hr before sexual activity. Do not exceed 2 tabs/100mg in 24 hrs., # 20 tab(s), Refills(s) 2, Pharmacy: [facility]/pharmacy #[id number], 175, cm, 03/29/24 12:01:00 EST, Height/Length Dosing, 87.6, kg, 03/29/24 12:01:00 EST, Weight Dosing Start Date: 03/29/24 Status: Ordered temazepam 30 mg oral capsule (20 sources) Benzodiazepine Start: 01-11-2021 take 1 capsule by mouth at bedtime Temazepam 30 mg capsule Active 30 MG PO Bedtime July 14, 2021 12:00am Complies with drug therapy tiZANidine 4 mg oral capsule (20 sources) Central alpha-2 Adrenergic Agonist Start: 07-14-2021 take 1 capsule by mouth at bedtime Tizanidine 4 mg capsule Active 4 MG PO Bedtime July 14, 2021 12:00am Complies with drug therapy Start: 02-01-2021 take 1 tablet by siobhan [...] DO Active predniSONE 10 mg oral tablet (18 sources) Start: 02-01-2021 predniSONE 10 MG Oral Tablet 1 TAB DAILR FIR 90 DAYS Quantity: 0 Refills: 0 Ordered: 01-Feb-2021 DO Start : 01-Feb-2021 Active Start: 11-30-2020 End: 04-09-2023 take 1 tablet by mouth once daily Prednisone 10 mg tablet Discontinued 10 MG PO Daily July 16, 2021 12:00am April 09, 2023 11:12am Problems Active Problems Problem Classification Problem Date Documented Date Episodic/Chronic Acute and unspecified renal failure (3 sources) Injury of kidney; Translations: [Acute kidney failure, unspecified] Onset: 3 11-05-2022 Episodic Acute myocardial infarction (4 sources) Myocardial infarction 09-12-2018 Chronic Aortic; peripheral; and visceral artery aneurysms (20 sources) Abdominal aortic aneurysm; Translations: [Abdominal aneurysm without mention of rupture] Onset: 2 Resolved: 2 Chronic Comment on above: 3.0 cm-5.5 cm in sj meter Asthma (2 sources) Asthma; Translations: [Unspecified asthma, uncomplicated] 11-04-2023 Chronic Cancer of prostate (5 sources) Malignant neoplasm of prostate; Translations: [Malignant tumor of prostate] Onset: 3 Chronic Cancer of prostate (10 sources) Personal history of malignant neoplasm of prostate; Translations: [History of malignant neoplasm of prostate] Onset: 2 Episodic Chronic kidney disease (1 source) Chronic kidney disease, unspecified; Translations: [CHRONIC KIDNEY DISEASE UNSPECIFIED] Onset: 2 Chronic Chronic obstructive pulmonary disease and bronchiectasis (14 sources) Chronic obstructive lung disease; Translations: [Chronic obstructive pulmonary disease, unspecified] Onset: 2 11-17-2023 Chronic Congestive heart failure; nonhypertensive (1 source) Unspecified diastolic (congestive) heart failure; Translations: [UNSPECIFIED DIASTOLIC HEART FAILURE] Onset: 2 Chronic Coronary atherosclerosis and other heart disease (1 source) Atherosclerotic heart disease of [place] coronary artery without angina pectoris; Translations: [ASHD [place] W/O ANGINA PECTORIS] Onset: 2 Chronic Cystic fibrosis (8 sources) Cystic fibrosis, unspecified; Translations: [Cystic fibrosis] [...] regurgitation; Translations: [Mitral valve disorders] Onset: 3 11-07-2022 Chronic Comment on above: mild/moderate; Hypertension with complications and secondary hypertension (5 sources) Hypertensive heart disease with heart failure; Translations: [Hypertensive chronic kidney disease with stage 1 through stage 4 chronic kidney disease, or unspecified chronic kidney disease] Onset: 2 Chronic Osteoarthritis (4 sources) Arthritis 09-12-2018 Chronic Other acquired deformities (1 source) Spondylolisthesis, lumbar region; Translations: [Spondylolisthesis, lumbar region] Onset: 3 Episodic Other aftercare (14 sources) Drug therapy finding; Translations: [Long-term (current) use of other medications] Episodic Other aftercare (2 sources) animal tech (current) use of anticoagulants; Translations: [GLOBAL LOGISTICS MANAGER CURRNT USE ANTICOAGULANTS] Onset: 2 Episodic Other aftercare (1 source) Taking high risk medication; Translations: [Other shelter (current) drug therapy] 08-20-2024 Episodic Other and ill-defined heart disease (16 sources) Diastolic dysfunction; Translations: [Other ill-defined heart [...] Resolved: 2 Chronic Other lower respiratory disease (7 sources) Pulmonary fibrosis, unspecified; Translations: [Postinflammatory pulmonary fibrosis] Onset: 3 04-09-2023 Chronic Other lower respiratory disease (5 sources) Interstitial lung disease; Translations: [Interstitial pulmonary disease, unspecified] 04-09-2023 Chronic Other lower respiratory disease (20 sources) History of chronic obstructive airway disease; Translations: [Personal history of other diseases of respiratory system] Resolved: 1 09-12-2018 Episodic Other lower respiratory disease (2 sources) Dyspnea, unspecified; Translations: [Dyspnea R06.00] Onset: 1 Resolved: 1 Episodic Other male genital disorders (4 sources) Impotence 07-26-2019 Chronic Other male genital disorders (1 source) Male erectile dysfunction, unspecified; Translations: [Erectile dysfunction] Onset: 5 Chronic Other nervous system disorders (1 source) [...] [Other obesity due to excess calories] Onset: 3 Chronic Other nutritional; endocrine; and [...] Onset: 2 07-14-2021 Episodic Residual codes; unclassified (11 sources) Sleep apnea; Translations: [Sleep apnea, unspecified] 11-04-2023 Chronic Residual codes; unclassified (1 source) Sleep apnea, unspecified; Translations: [Sleep apnea G47.30] Onset: 1 Resolved: 1 Chronic Residual codes; unclassified (1 source) Obstructive sleep apnea (adult) (pediatric); Translations: [OBSTRUCTIVE SLEEP APNEA] Onset: 2 Chronic Screening and history of mental health and substance abuse codes (20 sources) Ex-smoker; Translations: [Personal history of tobacco use] Onset: 5 07-26-2019 Episodic Spondylosis; intervertebral disc disorders; other back problems (18 sources) Spondylosis without myelopathy or radiculopathy, lumbar region; Translations: [Other intervertebral disc degeneration, lumbar region] Onset: 3 11-07-2022 Chronic Substance-related disorders (1 source) Nicotine [...] [Interstitial pulmonary disease, unspecified] Onset: 4 Unclassified (2 sources) Infrarenal abdominal aortic aneurysm, without rupture; Translations: [Infrarenal abdominal aortic aneurysm, without rupture] Onset: 3 Unclassified (1 source) Abdominal aortic aneurysm, without rupture, unspecified (CMS-HCC); Translations: [Abdominal aortic aneurysm, without rupture, unspecified (CMS-HCC)] Onset: 3 Unclassified (1 source) Obesity, class 1; Translations: [Obesity, class 1] Onset: 3 Past or Other Problems Problem Classification Problem Date Documented Date Episodic/Chronic Cardiac dysrhythmias (20 sources) Sinus tachycardia; Translations: [Other specified cardiac dysrhythmias] Onset: 11-07-2022 11-07-2022 Episodic Hyperplasia of prostate (4 sources) Benign prostatic hypertrophy with outflow obstruction Resolved: 09-12-2018 11-23-2018 Chronic Nonspecific chest pain (3 sources) Other chest pain; Translations: [OTHER CHEST PAIN] Onset: 07-14-2021 Episodic Other aftercare (1 source) Other shelter (current) drug therapy; Translations: [OTH GLOBAL LOGISTICS MANAGER CURRENT DRUG THERAPY] Onset: 07-17-2021 Episodic Other [...] nonspecific abnormal finding of lung field; Translations: [OT NONSPECIFIC ABN FIND LNG FIELD] Onset: 02-18-2022 [...] Mass Index 31.0-31.9, adult] Resolved: 02-06-2021 Chronic Spondylosis; intervertebral disc disorders; other back problems (20 sources) Dorsalgia, unspecified; Translations: [Intervertebral disc disorders with radiculopathy, lumbar region] Onset: 09-04-2021 Episodic Unclassified (1 source) LOW BACK PAIN, UNSPECIFIED; Translations: [LOW BACK PAIN, UNSPECIFIED] Onset: 05-09-2022 Unclassified (1 source) Abdominal aortic aneurysm (AAA) without rupture, unspecified part I71.40 Unclassified (10 sources) Onset: 12-09-2022 Resolved: 08-20-2024 12-09-2022 Unclassified [...] Test Name Value Interpretation Reference Range Facility TRANSTHORACIC ECHO (TTE) COM PLETEon 11-12-2024 TRANSTHORACIC ECHO (TTE) COMPLETE [address], [address] [address] TRANSTHORACIC ECHOCARDIOGRAM REPORT Patient Name: ERIK MORALES Reading Physician: [id number] Go MD, [facility] Study Date: 11/12/2024 Ordering Provider: [id number] CECILIO GO MRN/PID: [id number] Fellow: Nurse: Date of /Age: 8 1955 / 69 [employer] Crime Scene Technician: Letty Chávez RDCS years Gender Assigned at Additional Staff: : Height: 175.26 cm Admit Date: Weight: 92.08 kg Admission Status: Outpatient BSA / BMI: 2.08 m2 / 29.98 Department Location: [address] Study Type: TRANSTHORACIC ECHO (TTE) COMPLETE Diagnosis/ICD: Essential (primary) hypertension-I10; Nonrheumatic mitral (valve) insufficiency-I34.0 Indication: Hx Pulmonary Embolism, HLD, Former Smoker, CKD Stage III, Obesity, AAA, Pulmonary Fibrosis CPT Codes: Echo Complete w Full Doppler-[id number] Study Detail: The following Echo studies were [...] aortic valve area by VTI is 2.96 cm?? with a peak velocity of 1.18 m/s. [...] m/s E/e' Ratio: 9.86 (<8.0) PulmV Sys Will: 67.14 cm/s PulmV [place] Will: 48.66 cm/s PulmV S/D Will: 1.38 PulmV A Revs Will: 27.95 cm/s PulmV A Revs Dur: 87.54 msec MITRAL VALVE: Normal Ranges: MV Vmax: 0.99 m/s (<=1.3m/s) MV peak P.9 mmHg (<5mmHg) MV mean P.3 mmHg (<48mmHg) MV VTI: 26.33 cm (10-13cm) MV DT: 224 msec (150-240msec) MITR (more content not included)... Normal [facility] US Heart Transthoracicon Aortic Valve Area by Continuity of Peak Velocity 2.61 cm2 [facility] Work Phone: Aortic Valve Area by Continuity of VTI 2.96 cm2 [facility] Work Phone: AV mn grad 3 mmHg [facility] Work Phone: AV pk grad 6 mmHg [facility] Work Phone: AV pk will 1.18 m/s [facility] Work Phone: LA vol index A/L 13.2 ml/m2 [facility] Work Phone: LV A4C EF 60.4 [facility] Work Phone: LV Biplane EF 67 % [facility] Work Phone: LV EF 63 % [facility] Work Phone: LVIDd 4.78 cm [facility] Work Phone: LVOT diam 2.14 cm [facility] Work Phone: MV avg E/e' ratio 9.37 [facility] Work Phone: MV E/A ratio 1.00 [facility] Work Phone: RV free wall pk S' 17.60 cm/s [facility] Work Phone: RVSP 30 mmHg [facility] Work Phone: Tricuspid annular plane systolic excursion 2.3 cm [facility] Work Phone: CONCLUSIONS: 1. Left ventricular ejection fraction is [...] aortic root dilatation is no longer seen. [facility] [address], [address], [place] [address] TRANSTHORACIC ECHOCARDIOGRAM REPORT Patient Name: ERIK MORALES Reading Physician: [id number] Cecilio Go MD, [facility] Study Date: 11/12/2024 Ordering Provider: [id number] CECILIO GO MRN/PID: [id number] Fellow: Nurse: Date of /Age: 8 1955 / 69 [employer] Crime Scene Technician: Letty Chávez RDCS years Gender Assigned at Additional Staff: : Height: 175.26 cm Admit Date: Weight: 92.08 kg Admission Status: Outpatient BSA / BMI: 2.08 m2 / 29.98 Department Location: [facility] Heart kg/m2 [place] Study Type: TRANSTHORACIC ECHO (TTE) COMPLETE Diagnosis/ICD: Essential (primary) hypertension-I10; Nonrheumatic mitral (valve) insufficiency-I34.0 Indication: Hx Pulmonary Embolism, HLD, Former Smoker, CKD Stage III, Obesity, AAA, Pulmonary Fibrosis CPT Codes: Echo Complete w Full Doppler-[id number] Study Detail: The following Echo studies were [...] 60 % (>=55%) EF-A2C View: 71 % (more content not included)... Cecilio Stevenson M D - 11/12/[address], [address], [place] [address] TRANSTHORACIC ECHOCARDIOGRAM REPORT Patient Name: ERIK VICKEY Mckoy Physician: [id number] Go MD, [facility] Study Date: 11/12/2024 Ordering Provider: [id number] CECILIO GO MRN/PID: [id number] Fellow: Nurse: Date of /Age: 8 1955 [employer] Crime Scene Technician: Letty Chávez RDCS years Gender Assigned at Additional Staff: : Height: 175.26 cm Admit Date: Weight: 92.08 kg Admission Status: Outpatient BSA / BMI: 2.08 m2 / 29.98 Department Location: [address] Study Type: TRANSTHORACIC ECHO (TTE) COMPLETE Diagnosis/ICD: Essential (primary) hypertension-I10; Nonrheumatic mitral (valve) insufficiency-I34.0 Indication: Hx Pulmonary Embolism, HLD, Former Smoker, CKD Stage III, Obesity, AAA, Pulmonary Fibrosis CPT Codes: Echo Complete w Full Doppler-85815 Study Detail: The following Echo studies were [...] m/s E/e' Ratio: 9.86 (<8.0) PulmV Sys Will: 67.14 cm/s PulmV [place] Will: 48.66 cm/s PulmV S/D Will: 1.38 PulmV A Revs Will: 27.95 cm/s PulmV A Revs Dur: 87.54 msec MITRAL VALVE: Normal Ranges: MV Vmax: 0.99 m/s (<=1.3m/s) MV peak P.9 mmH (more content not included)... [facility] Work Phone: [facility] Work Phone: VASC US AORTA ILIAC DUPLEX C OMPLETEon 10-07-2024 VASC US AORTA ILIAC DUPLEX COMPLETE [address], [address] [place] [address] Vascular Lab Report VASC US AORTA ILIAC DUPLEX COMPLETE Patient Name: ERIK MORALES Reading Physician: Paulino Go MD, FAC Study Date: 10/07/2024 Ordering Provider: Paulino GO MRN/PID: [id number] Fellow: Technologist: Karol Hull RDCS, T Date of /Age: 8 1955 / 68 years Technologist 2: Gender: M Admission Status: Outpatient Location Performed: [facility] Diagnosis/ICD: Abdominal aortic aneurysm, without rupture, unspecified-I71.40; Infrarenal abdominal aortic aneurysm, without rupture-I71.43 Indication: History of PE, CKD-Stage III, Obesity, Pulmonary Fibrosis, HTN, Hyperlipidemia, Former Smoker CPT Codes: 33695 Duplex Aorta/IVC/Iliac/Bypass Graft CONCLUSIONS: Aorta/Common Iliac Arteries/IVC: [...] Proximal 1.23 cm 1.45 cm 36.00 cm/s Paulino Go MD, FACC Final [facility] Urology Office/Clinic Noteon 03-29-2024 Urology Office/Clinic [...] E&M of Est. Patient Moderate 30-39 Min 93957 Urnls Dip Stick Auto w/o Microscopy POC 98856 2. H/O prostate cancer (Z85.46: Personal history of malignant neoplasm of prostate) Sp prostatectomy Feb 2016 by PRW. pre-op PSA around 3 (6 on Finasteride). [place] 3+4=7, 5% of one lobe. Neg SV, Neg margins, Neg nodes x 8. PSA 07/22/19 - <0.05 04/26/20 - <0.05 10/05/20 - <0.05 12/20/21 - <0.13 12/21/22 - <0.13 03/22/24 - <0.1 PSA low and stable. Check in 1 yr. Ordered: E&M of Est. Patient Moderate 30-39 Min 11862 PSA Total 3. ED (erectile dysfunction) (N52.9: [...] yr. Pt told me no hx heart issues/VA. Has nitro on allergy list, so we know he's not on this. However after he left I reviewed his chart and problem list says he DOES have hx VA. Will contact pharmacy and cancel sildenafil rx for now. Staff to clarify cardiac hx w pt. If sees insert operator, we will need to get clearance from them that his heart is healthy enough for sex/ED med. If no insert operator, will need clearance from PCP. Orders: oxybutynin, 10 mg = 1 tab(s), Oral, Daily, X 90 day(s), # 90 tab(s), Refills(s) 3, Pharmacy: [facility]/pharmacy #[id number], 175, cm, 03/29/24 12:01:00 EST, Height/Length Dosing, 87.6, kg, 03/29/24 12:01:00 EST, Weight Dosing sildenafil, See Instructions, 1-2 tabs po 1 hr before sexual activity. Do not exceed 2 tabs/100mg in 24 hrs., # 20 tab(s), Refills(s) 2, Pharmacy: [facility]/pharmacy #[id number], 175, cm, 03/29/24 12:01:00 EST, Height/Length Dosing, 87.6, kg, 03/29/24 12:01:00 EST, Weight Do... Follow-up With When Contact Information ALAN HURST PA-C, URL In 1 year [address] [place] [address] Additional Instructions: Patient Education Erectile [...] omeprazole, O (more content not included)... Normal [facility] Comment on above: Result Comment: Elec tronically Signed By: ALAN HURST PA-C\.br\Date and Time Signed: 03/29/24 12:28 EST PSA Totalon 03-23-2024 Prostate specific Ag [Mass/Vol] ng/mL Low 0.1-3.5 [facility] Comment on above: Result Comment: The concentration of PSA determined by different manufacturers can vary due to differences in assay methods and reagent specificity. Values obtained from different assay methods cannot be used interchangeably. The methodology used for this result was chemiluminescence using Chana Kirkwood's Access Hybritech PSA reagent. Performed By: #### 1 [id number] #### [facility] [address] [place] [address] Provider Letteron 03-03-2024 Provider Letter Provider Letter March 03, 2024 ERIK MORALES [address] [place] [id number] : 1955 Dear Erik Morales, We have been trying to reach you with no success. It is important that you return our call regarding a follow up appointment upon receiving this letter. Also, at the time of your call, please provide us with your current information. Thank you for your prompt attention to this matter. Sincerely, [facility] [place] [address] [address] [place] [address] Normal [facility] XR Lumbar spine 2 or 3 Views on 11-11-2023 Interpreted By: Curtis Love, STUDY: XR LUMBAR SPINE 2-3 VIEWS; 11/11/2023 8:52 am INDICATION: Signs/Symptoms:pain. ACCESSION NUMBER(S): [id number] ORDERING CLINICIAN: CURTIS MELÉNDEZ FINDINGS: AP lateral [...] Curtis Meléndez 11/11/2023 9:36 AM Dictation workstation: [id number] Curtis Meléndez MD - 11/11/2023 Interpreted By: Curtis Meléndez, STUDY: XR LUMBAR SPINE 2-3 VIEWS; 11/11/2023 8:52 am INDICATION: Signs/Symptoms:pain. ACCESSION NUMBER(S): [id number] ORDERING CLINICIAN: CURTIS MELÉNDEZ FINDINGS: AP lateral [...] Curtis Meléndez 11/11/2023 9:36 AM Dictation workstation: [id number] [facility] Work Phone: Radiology Study observation (narrative) [facility] Work Phone: XR Lumbar spine 2 or 3 Views Ordered By: Curtis Meléndez on 11-11-2023 [facility] Work Phone: US aortaon 08-21-2023 US aorta [facility] [address] [place] [address] Ultrasound Report Signed Patient: Erik Morales MR#: [id number] : 1955 Acct:[id number] Age/Sex: 67 / M ADM Date: 08/21/23 Loc: [facility] Room: Type: [facility] Attending Dr: Bianka Garcia GHOST WRITER-C Ordering Provider: Bianka Garcia APRN Date of [...] Julian Matthews MD08/21/2023 2:21 PM [facility] Tech: Elham Rivera Transcribed By: [facility] 08/21/23 1421 Dictated By: Julian Matthews MD 08/21/23 1419 Signed By: 08/21/23 1421 Normal [facility] XR Lumbar spine 2 or 3 Views on 06-03-2023 Interpreted By: Curtis Love, STUDY: XR LUMBAR SPINE 2-3 VIEWS; 06/03/2023 1:42 pm INDICATION: Signs/Symptoms:pain. ACCESSION NUMBER(S): [id number] ORDERING CLINICIAN: CURTIS MELÉNDEZ FINDINGS: AP lateral [...] Curtis Meléndez 06/03/2023 1:56 PM Dictation workstation: [id number] [facility] Curtis Meléndez MD - 06/03/2023 Interpreted By: Curtis Meléndez, STUDY: XR LUMBAR SPINE 2-3 VIEWS; 06/03/2023 1:42 pm INDICATION: Signs/Symptoms:pain. ACCESSION NUMBER(S): [id number] ORDERING CLINICIAN: CURTIS MELÉNDEZ FINDINGS: AP lateral [...] Curtis Meléndez 06/03/2023 1:56 PM Dictation workstation: [id number] [facility] Work Phone: [facility] Work Phone: Radiology Study observation (narrative) [facility] Work Phone: CT chest wo con high reson 0 04-15-2023 CT chest wo con high res [facility] [place] [address] CT Scan Report Signed Patient: Erik Morales MR#: [id number] : 1955 Acct:[id number] Age/Sex: 67 / M ADM Date: 04/14/23 Loc: CT Room: Type: [facility] Attending Dr: ISATU Gomez APRN Copies [...] Christopher Cline M.D.04/15/2023 9:21 AM Dictation Location: [place] [address] Transcribed By: [facility] 04/15/23920 Dictated By: Christopher Cline DO 04/15/23903 Signed By: 04/15/23920 Normal [facility] Post Op (Orthopaedic Surgery )on 11-19-2022 Post Op (Orthopaedic Surgery) Orders Back pain Xray BN Spine, Lumbosacral; 2 or 3 Views; Status:Complete; Done: [id number] 02:21PM Radiologist to Determine Optimal Study : [...] Xray BN Spine, Lumbosacral; 2 or 3 [id number] 02:21PMCurtis Meléndez Test NameResultFlagReference Xray Lumbar Spine AP + Lateral(Report) FINAL REPORT Interpreted by: CURTIS MELÉNDEZ JON, MD 11/19/22 16:41 Patient Name: ERIK MORALES STUDY: SPINE, LUMBOSACRAL; 2 OR 3 VIEWS; ; 11/19/2022 2:21 pm INDICATION: pain M54.9: Back pain. ACCESSION NUMBER(S): [id number] ORDERING CLINICIAN: CURTIS MELÉNDEZ FINDINGS: AP lateral x-rays of the lumbar spine show an L3-4 lateral lumbar fusion with lateral plate and cage configuration. Cage pl (more content not included)... Normal [facility] 11-19-2022 XR Lumbar spine AP and Lateral Normal [facility] Work Phone: SPINE, LUMBOSACRAL 2 OR 3 EWSon 11-19-2022 SPINE, LUMBOSACRAL 2 OR 3 VIEWS Patient Name: ERIK MORALES STUDY: SPINE, LUMBOSACRAL; 2 OR 3 VIEWS; ; 11/19/2022 2:21 pm INDICATION: pain M54.9: Back pain. ACCESSION NUMBER(S): [id number] ORDERING CLINICIAN: CURTIS MELÉNDEZ FINDINGS: AP lateral [...] Electronically signed by: CURTIS MELÉNDEZ MD Normal [facility] BASIC METABOLIC PANELon 10-25 Anion gap [Moles/Vol] 10 mmol/L Normal 10 - [address] [facility] Comment on above: Performed By: #### B MP #### [address] [id number] Calcium [Mass/Vol] 8.9 mg/dL Normal 8.6 - 10.3 [facility] Comment on above: Performed By: #### B MP #### [address] [id number] Chloride [Moles/Vol] 101 mmol/L Normal 98 - 107 [facility] Comment on above: Performed By: #### B MP #### [address] [id number] Creatinine [Mass/Vol] 1.15 mg/dL Normal 0.50 - 1.30 [facility] Comment on above: Performed By: #### B MP #### [address] [id number] GFR/1.73 sq M.predicted among non-blacks MDRD (S/P/Bld) [Vol rate/Area] 70 mL/min/{1.73_m2} Normal >90 [facility] Comment on above: Result Comment: CALC ULATIONS OF ESTIMATED GFR ARE PERFORMED USING THE 2020 CKD-EPI STUDY REFIT EQUATION WITHOUT THE RACE VARIABLE FOR THE IDMS-TRACEABLE CREATININE METHODS. https://jasn.asnjournals.org/content/early//ASN.8503629 988 Performed By: #### B MP #### [address] [id number] Glucose [Mass/Vol] 106 mg/dL High 74 - 99 [facility] Comment on above: Performed By: #### B MP #### [address] [id number] HCO3 (Bld) [Moles/Vol] 29 mmol/L Normal 21 - 32 [facility] Comment on above: Performed By: #### B MP #### [address] [id number] Potassium [Moles/Vol] 4.5 mmol/L Normal 3.5 - 5.[address] [facility] Comment on above: Performed By: #### B MP #### [address] [id number] Sodium [Moles/Vol] 135 mmol/L Low 136 - 145 [facility] Comment on above: Performed By: #### B MP #### [address] [id number] Urea nitrogen [Mass/Vol] 13 mg/dL Normal 6 - 23 [facility] Comment on above: Performed By: #### B MP #### [address] [id number] Daily Progress Note-General Internal Medicineon 11-07-2022 Daily [...] intact. Objective Data: Objective Information: T PRBPMAPSpO2 [id number]/[id number]% Date/Time11/07 8: 8: 8: 8: 21:0811/07 8:56 [...] laboratory results: Basic Metabolic Panel Trending View [id number]-Kvi-1598 10:23:00 -Oct-2022 05:48:00 Glucose, Ocfhf280 H 95 NA135 L 138 K4.5 4.1 [...] discussed extensively with patient, RN and Ortho GHOST WRITER. Patient verbalized understanding through teach back method. All questions and concerns addressed upon examination. Of note, this documentation is completed using the [employer] system (voice recognition software). There may be spelling and/or grammatical errors that were not corrected prior to final submission. Plan of Care Reviewed With: Plan of Care Reviewed With: patient Electronic Signatures: Heidy Escobar (CONSULTING DATABASE ADMINISTRATOR-SATELLITE COMMUNICATIONS OPERATOR) (Signed 07-Nov-2022 14:59) Authored: Service, Subjective Data, Objective Data, Assessment and Plan, Note Completion Last Updated: 07-Nov-2022 14:59 by Heidy Escobar (CONSULTING DATABASE ADMINISTRATOR-SATELLITE COMMUNICATIONS OPERATOR) Normal [facility] Daily Progress Note-Orthopae dicson 11-07-2022 Daily Progress Note-Orthopaedics Service: Orthopaedics Subjective Data: ERIK MORALES is a 67 year old Male who is Hospital Day # 4 and POD #3 for 1. ;2. ;3. ;4. ;5. Patient seen and examined this morning. No acute events overnight. Objective Data: Objective Information: T PRBPMAPSpO2 Value36.93417955/5150878% Date/Time11/06 21: 21: 21: 21: 21: 21:08 [...] to home today Electronic Signatures: Gilda Mcmahon (CONSULTING DATABASE ADMINISTRATOR-SATELLITE COMMUNICATIONS OPERATOR) (Signed 07-Nov-2022 08:00) Authored: Service, Subjective Data, Objective Data, Assessment and Plan, Note Completion Abner Maldonado) (Signed 07-Nov-2022 11:31) Co-Signer: Service, Subjective Data, Objective Data, Assessment and Plan, Note Completion Last Updated: 07-Nov-2022 11:31 by Abner Maldonado) Normal [facility] Laboratory - Chemistry and C hemistry - challengeon 11-07-2022 Anion gap [Moles/Vol] 10 mmol/L 10 - 20 [facility] [place] Work Phone: Calcium [Mass/Vol] 8.9 mg/dL 8.6 - 10.[address] [facility] [place] Work Phone: Chloride [Moles/Vol] 101 mmol/L 98 - 107 [facility] [place] Work Phone: CO2 [Moles/Vol] 29 mmol/L 21 - 32 [facility] [place] Work Phone: Creatinine [Mass/Vol] 1.15 mg/dL See Below [facility] [place] Work Phone: Comment on above: Reference Range: 0.5 0 - 1.30 Glucose [Mass/Vol] 106 mg/dL above high threshold 74 - 99 [facility] [place] Work Phone: Potassium [Moles/Vol] 4.5 mmol/L 3.5 - 5.3 [facility] Work Phone: Sodium [Moles/Vol] 135 mmol/L below low threshold 136 - 145 [facility] Work Phone: Urea nitrogen [Mass/Vol] 13 mg/dL 6 - 23 [facility] Work Phone: No Panel Informationon 11-07 70 {mL/min/1.73m2} >90 [facility] Work Phone: Comment on above: CALCULATIONS OF MEGAN MATED GFR ARE PERFORMED USING THE 2020 CKD-EPI STUDY REFIT EQUATION WITHOUT THE RACE VARIABLE FOR THE IDMS-TRACEABLE CREATININE METHODS.https://jasn.asnjournals.org/content//ASN .1894256416 Order Reconciliationon 11-07 Order Reconciliation Page 1 Discharge Reconciliation Document Reconciliation Type: Discharge requested on behalf of Gilda Mcmahon (Advanced Practice Nurse-Admit) done by Gilda Mcmahon (CONSULTING DATABASE ADMINISTRATOR-SATELLITE COMMUNICATIONS OPERATOR) Discharge - Reconciliation: 07-Nov-2022 09:21 by: Gilda Mcmahon (CONSULTING DATABASE ADMINISTRATOR-SATELLITE COMMUNICATIONS OPERATOR) Home Medications EnteredHOME MEDICATIONS AT DISCHARGE DateReconciliation [...] oral tablet is not required Potassium Chloride (Bzr-Mezh-Zby 10) 10 mEq oral tablet, extended release 1 tab(s) orally once a day 21-Oct-2022 13:59 Potassium Chloride (Qbk-Zyqb-Dzj 10) 10 mEq oral tablet, extended release 1 tab(s) orally once a day 21-Oct-2022 13:59 Potassium Chloride (Vrg-Qgsw-Hsk 10) 10 mEq oral tablet, extended release is continued as Potassium Chloride (Qxx-Mubt-Qeo 10) 10 mEq oral tablet, extended release [...] Lactated Ringers (more content not included)... Normal [facility] Rehab Note-acute care occupational therapist rohit 11-07-2022 Rehab Note-occupational therapy Rehab: Info: Mode of Treatmentoccupational therapy Time IN07:31 Time OUT08:00 Total Treatment [id number] Patient in ... at end of sessionchair; [...] Mobility/Tone: Bed Mobility Assessment/Interventionssu pine to sit Unixjz-is-Itg [place] (Bed Mobility)standby assist; verbal cues; nonverbal cues (demo/gesture) Comment, Bed MobilityEducated pt on log roll technique to maintain spinal precautions. Simulated home s/u and transferred towards right side. Transfer Assessment/Interventionssi t to stand transfer; stand to sit transfer; bed to chair transfer; toilet transfer; shower transfer Comment, TransfersMin verbal cues for hand placement with sit <>stand transfers. Bed-Chair [place] (Transfers)standby assist Bed-Chair Assistive Device (Transfers)walker, front-wheeled Sit-Stand [place] (Transfers)standby assist; Multiple sit <>stand transfers performed from various surfaces and surface heights. Pt benefits from elevated surfaces however is able to complete transfers from standard surface heights. Sit-Stand Assistive Device (Transfers)walker, front-wheeled Stand-Sit [place] (Transfers)standby assist Stand-Sit Assistive Device (Transfers)walker, front-wheeled Shower [place] (Transfers)Pt reports having shower chair at home which he has used prior to admission. Verbal education provided on safe transfer techniques. Pt also educated to have someone present with transfer for fall prevention. Toilet [place] (Transfers)standby assist Toilet Assistive Device (Transfer)grab bars/safety [...] Assessment/Interventionlow er body dressing; toileting; grooming; bathing [place] Level (Bathing)Pt educated on using a cottonseed meat presser to complete LB bathing vs purchasing a LH sponge. Verbal and visual education provided on technique from seated position on shower chair. Pt verbalized understanding. [place] Level (Lower Body Dressing)don; pants/bottoms; shoes/slippers Assistive Devices (Lower Body Dressing)cottonseed meat presser Comment (Lower Body Dressing)Reviewed education on use of cottonseed meat presser. Wilfredo pants while seated EOB with fair (+) balance. Pt donned LB clothing with SBA. Educated pt on how to use cottonseed meat presser to wilfredo slip on shoes. Pt reports brother can also assist with donning shoes. Pt educated to not walk in tedhose only, always wear shoes or non-slip socks [place] Level (Grooming)standby assist Position (Grooming)standing [place] Level (Toileting)standby assist Position (Toileting)sitting Skilled BADL Treatment/Interventionadap tive equipment training; BADL process/adaptation training; compensatory training; energy conservation Motor: Idn-ku-Kerbk (Balance)F+ Standing, Static (Balance)F+ Standing, Dynamic (Balance)F+ [...] Score20 Short Term Goals: Functional Transfer: Established [id number] Functional Transfer: Goal Detailspt will transfer to bed ,chair, toilet with modified indep Functional Transfer: Time Frame for Go (more content not included)... Normal [facility] Rehab Note-physical therapyo n 11-07-2022 Rehab Note-physical therapy Rehab: Info: Disciplinephysical therapist Mode of Treatmentphysical therapy Time IN08:16 Time OUT08:48 Total Treatment [id number] Patient in ... at end of sessionchair; [...] brace in place. PT placed hands over postdoctoral scholar on walker to cue pt of his [...] Score18 Short Term Goals: Bed Mobility: Date [id number]-9978 Bed Mobility: Freestone Level Goalmodified independent; supine <> sidelying <> sitting Transfer: Established Rxaa55-Aal-8896 Transfer: Transfer Type Skudtgo-tb-wlqry/chair-to- bed; aae-mb-yshvb/onnos-wy-htk Transfer: Freestone Level Goalmodified independent Transfer: Assistive Device Goalrolling walker Gait: Established Mtbp54-Hla-6728 Gait: Freestone Level Goalmodified independent Gait: Assistive Device Goalrolling walker Gait: Distance Taon796' Education: Learnerpatient Barriers to Learningno barrier Methodverbal [...] home Outcome Summary: Predicted Duration of Therapy Dsikgkouueet43 days Progress: Physical Therapyprogress toward functional goals as expected Therapy Frequency (PT Eval)2 times/day Predicted Duration of Therapy Xmuiyxrewfqa41 days DC Recommendations: Discharge Recommendation (PT Eval)Pt would benefit from [facility] Electronic Signatures: Daniela Scott (PT) (Signed 07-Nov-2022 15:34) Co-Signer: Info, Mobility/Tone, Outcomes Tools, Short Term Goals, Education, Outcome Summary, DC Recommendations Fior Velez (SPT) (Signed 07-Nov-2022 13:43) Authored: Info, Mobility/Tone, Outcomes Tools, Short Term Goals, Education, Outcome Summary, DC Recommendations Last Updated: 07-Nov-2022 15:34 by Daniela Scott (PT) Normal [facility] BASIC METABOLIC PANELon 09-1 Anion gap [Moles/Vol] 9 mmol/L Low 10 - 20 [facility] Comment on above: Performed By: #### B MP #### [address] [id number] Calcium [Mass/Vol] 8.6 mg/dL Normal 8.6 - 10.3 [facility] Comment on above: Performed By: #### B MP #### [address] [id number] Chloride [Moles/Vol] 105 mmol/L Normal 98 - 107 [facility] Comment on above: Performed By: #### B MP #### [address] [id number] Creatinine [Mass/Vol] 1.37 mg/dL High 0.50 - 1.30 [facility] Comment on above: Performed By: #### B MP #### [address] [id number] GFR/1.73 sq M.predicted among non-blacks MDRD (S/P/Bld) [Vol rate/Area] 57 mL/min/{1.73_m2} Abnormal >90 [facility] Comment on above: Result Comment: CALC ULATIONS OF ESTIMATED GFR ARE PERFORMED USING THE 2020 CKD-EPI STUDY REFIT EQUATION WITHOUT THE RACE VARIABLE FOR THE IDMS-TRACEABLE CREATININE METHODS. https://jasn.asnjournals.org/content/early//ASN.0841468 988 Performed By: #### B MP #### [address] [id number] Glucose [Mass/Vol] 95 mg/dL Normal 74 - 99 [facility] Comment on above: Performed By: #### B MP #### [address] [id number] HCO3 (Bld) [Moles/Vol] 28 mmol/L Normal 21 - 32 [facility] Comment on above: Performed By: #### B MP #### [address] [id number] Potassium [Moles/Vol] 4.1 mmol/L Normal 3.5 - 5.3 [facility] Comment on above: Performed By: #### B MP #### [address] [id number] Sodium [Moles/Vol] 138 mmol/L Normal 136 - 145 [facility] Comment on above: Performed By: #### B MP #### [address] [id number] Urea nitrogen [Mass/Vol] 14 mg/dL Normal 6 - 23 [facility] Comment on above: Performed By: #### B MP #### [address] [id number] Daily Progress Note-General Internal Medicineon 11-06-2022 Daily [...] intact. Objective Data: Objective Information: T PRBPMAPSpO2 Value37.01562703/400393% Date/Time11/06 8: 8: 8: 8: 8: 8:18 Range(36.2C - 37.4C ) (63 - 79 ) (16 - 18 ) (104 - 132 )/ (58 - 77 ) (76 - 97 ) (94% - 96% ) Highest temp of 37.4 C was recorded at 11/05 19:08 Pain reported at 11/06 7:23: sleeping ---- Intake and Output ----- Mn/Dy/Year TimeIntakeOutputNet Nov 06, 2022 6:00 [id number] Nov 05, 2022 10:00 [id number] Nov 05, 2022 2:00 [id number] The Intake and Output Totals for the last 24 hours are: IntakeOutputNet [id number] Physical Exam Narrative: Physical Exam: Constitutional: awake/alert/oriented [...] spirometer education and demonstration addressed Discharge planning [facility] reviewed Vital signs every 8 # HTN [...] discussed extensively with patient, RN and Ortho GHOST WRITER. Patient verbalized understanding through teach back method. All questions and concerns addressed upon examination. Of note, this documentation is completed using the [employer] Dictation system (voice recognition software). There may be spelling and/or grammatical errors that were not corrected prior to final submission. Plan of Care Reviewed With: Plan of Care Reviewed With: patient Elec (more content not included)... Normal [facility] Daily Progress Note-Orthopae frederic 11-06-2022 Daily Progress Note-Orthopaedics Service: Orthopaedics Subjective Data: RAIFSNIDER, ERIK is a 67 year old Male who is Hospital Day # 3 and POD #2 for 1. ;2. ;3. ;4. ;5. Overnight Events: Patient had an uneventful night. Objective Data: Objective Information: T PRBPMAPSpO2 Value37.88819896/496090% Date/Time11/06 8: 8: 8: 8: 8: 8:18 Range(36.2C - 37.4C ) (63 - 79 ) (16 - 18 ) (104 - 132 )/ (58 - 77 ) (76 - 97 ) (94% - 96% ) Highest temp of 37.4 C was recorded at 11/05 19:08 Pain reported at 11/06 7:23: sleeping ---- Intake and Output ----- Mn/Dy/Year TimeIntakeOutputNet Nov 06, 2022 6:00 [id number] Nov 05, 2022 10:00 [id number] Nov 05, 2022 2:00 [id number] The Intake and Output Totals for the last 24 hours are: IntakeOutputNet [id number] T PRBPMAPSpO2 Value37.26565211/977182% Date/Time11/06 8: 8: 8: 8: 8: 8:18 [...] bed -home today Electronic Signatures: Derrick Cunningham (CONSULTING DATABASE ADMINISTRATOR-SATELLITE COMMUNICATIONS OPERATOR) (Signed 06-Nov-2022 09:07) Authored: Service, Subjective Data, Objective Data, Assessment and Plan, Note Completion Last Updated: 06-Nov-2022 09:07 by Derrick Cunningham (CONSULTING DATABASE ADMINISTRATOR-SATELLITE COMMUNICATIONS OPERATOR) Normal [facility] Discharge [id number] 023 Discharge Profile2 Discharge Orders: Anticipated Discharge Date: Anticipated Discharge Cdir77-Uoe-2764 Anticipated Discharge Time12:00 Problem List: Admitting Dx: [...] Review of Medication Reconciliation and Orders Completedby CONSULTING DATABASE ADMINISTRATOR Reviewing ProviderFAINA Dwyer at 07-Nov-2022 09:17:40 Appointments: Follow-Up Appointment 01: Physician/Dept/ServiceDr. Meléndez Reason for Referralback Call to Schedule in2 weeks, please call ahead and schedule appointment [id number] [facility] Phone [phone] Electronic Signatures: Gilda Mcmahon (FAINA) (Signed 07-Nov-2022 09:17) Authored: Discharge Orders, Home Care Orders, Provider FINAL REVIEW of Orders, Appointments, Gold Form - Scoring Machine Operator Summary Last Updated: 07-Nov-2022 09:17 by Gilda Mcmahon (JESSICA-SATELLITE COMMUNICATIONS OPERATOR) Normal [facility] Laboratory - Chemistry and C hemistry - challengeon 11-06-2022 Anion gap [Moles/Vol] 9 mmol/L below low threshold 10 - 20 [facility] Work Phone: Calcium [Mass/Vol] 8.6 mg/dL 8.6 - 10.3 [facility] Work Phone: Chloride [Moles/Vol] 105 mmol/L 98 - 107 [facility] [place] Work Phone: CO2 [Moles/Vol] 28 mmol/L 21 - 32 [facility] [place] Work Phone: Creatinine [Mass/Vol] 1.37 mg/dL above high threshold See Below [facility] [place] Work Phone: Comment on above: Reference Range: 0.5 0 - 1.30 Glucose [Mass/Vol] 95 mg/dL 74 - [address] [facility] [place] Work Phone: Potassium [Moles/Vol] 4.1 mmol/L 3.5 - 5.3 [facility] [place] Work Phone: Sodium [Moles/Vol] 138 mmol/L 136 - 145 [facility] [place] Work Phone: Urea nitrogen [Mass/Vol] 14 mg/dL 6 - 23 [facility] [place] Work Phone: MAGNESIUMon 11-06-2022 Magnesium [Mass/Vol] 2.06 mg/dL Normal 1.60 - 2.40 [facility] Comment on above: Performed By: #### M G #### [address] [id number] Magnesium, Serumon Magnesium [Mass/Vol] 2.06 mg/dL See Below [facility] [place] [facility] Work Phone: Comment on above: Reference Range: 1.6 0 - 2.40 No Panel Informationon 11-06 57 {mL/min/1.73m2} Abnormal >[address] [facility] [place] Work Phone: Comment on above: CALCULATIONS OF MEGAN MATED GFR ARE PERFORMED USING THE 2020 CKD-EPI STUDY REFIT EQUATION WITHOUT THE RACE VARIABLE FOR THE IDMS-TRACEABLE CREATININE METHODS.https://jasn.asnjournals.org/content//ASN .2219944562 Rehab Note-acute care occupational therapist rohit 11-06-2022 Rehab Note-occupational therapy Rehab: Info: Mode of Treatmentoccupational therapy Time IN10:20 Time OUT10:58 Total Treatment Mblrcpd13 Patient in ... at end of sessionchair; [...] sitting on sofas and armless chairs. Sit-Stand Freestone (Transfers)contact guard Sit-Stand Assistive Device (Transfers)walker, front-wheeled Stand-Sit Freestone (Transfers)contact guard Stand-Sit Assistive Device (Transfers)walker, front-wheeled Toilet Freestone (Transfers)contact guard Toilet Assistive Device (Transfer)grab bars/safety [...] alignment. UB bathing and dressing with SBA Freestone Level (Lower Body Dressing)don; pants/bottoms; shoes/slippers; minimum assist (75% patient effort) Assistive Devices (Lower Body Dressing)cottonseed meat presser Comment (Lower Body Dressing)Pt educated on use of cottonseed meat presser and sock aid for LB dressing with fair understanding and return demonstration. Freestone Level (Grooming)contact guard Comment (Grooming)Pt performed G/H tasks in stance at sink with fair balance x 2 1/2 min Motor: Htp-zi-Rhjlv (Balance)fair balance Standing, Static (Balance)fair balance Standing, [...] Upper Body Dressing: Established Upper Body Dressing: Freestone Level Goalstand-by assist Upper Body Dressing: Time Frame for Goal2 wks Lower Body Dressing: Established Lower Body Dressing: Freestone Level Goalminimum assist (75% patients effort) Lower [...] to d (more content not included)... Normal [facility] Rehab Note-physical therapyo n 11-06-2022 Rehab Note-physical therapy Rehab: Info: Disciplinephysical therapist Mode of Treatmentphysical therapy Time IN13:41 Time OUT14:07 Total Treatment Lovxaif77 Patient in ... at end of sessionbed, [...] Score18 Short Term Goals: Bed Mobility: Date Hxwabqhiddb07-Hlj-1398 Bed Mobility: Freestone Level Goalmodified independent; supine <> sidelying <> sitting Transfer: Established Transfer: Transfer Type Qlcuogj-kh-lllsv/chair-to- bed; wtg-jr-cihwr/fqsks-fu-ari Transfer: Freestone Level Goalmodified independent Transfer: Assistive Device Goalrolling walker Gait: Established Gkob72-Kgk-3584 Gait: Freestone Level Goalmodified independent Gait: Assistive Device Goalrolling walker Gait: Distance Ndys135' Education: Learnerpatient Barriers to Learningno barrier Methodverbal [...] home Outcome Summary: Predicted Duration of Therapy Pcpmwtklhdcm22 days Progress: Physical Therapyprogress toward functional goals as expected Therapy Frequency (PT Eval)2 times/day Predicted Duration of Therapy Rshbvyizdusl73 days DC Recommendations: Discharge Recommendation (PT Eval)Pt would benefit from [facility] Electronic Signatures: Daniela Scott (PT) (Signed 07-Nov-2022 03:43) Co-Signer: Info, Mobility/Tone, Motor, Sensory, Outcomes Tools, Short Term Goals, Education, Outcome Summary, DC Recommendations Fior Velez (SPT) (Signed 06-Nov-2022 14:31) Authored: Info, Mobility/Tone, Motor, Sensory, Outcomes Tools, Short Term Goals, Education, Outcome Summary, DC Recommendations Last Updated: 07-Nov-2022 03:43 by Daniela Scott (PT) Normal [facility] Rehab Note-physical therapy Rehab: Info: Mode of Treatmentphysical therapy Time IN09:36 Time OUT10:17 Total Treatment Pecyosg20 Patient in ... at end of sessionchair; alarm on Patient Effortgood Symptoms Noted During/After Treatmentfatigue Treatment Considerations/CommentsSer vices provided by Alta Velez, [facility] with direct supervision and guidance from [...] Score18 Short Term Goals: Bed Mobility: Date Zydmsggboso52-Klx-9730 Bed Mobility: Freestone Level Goalmodified independent; supine <> sidelying <> sitting Transfer: Established Acge58-Atb-1119 Transfer: Transfer Type Cutqhbc-pa-mlvsy/chair-to- bed; hbb-xh-hhftg/mutzc-hk-owy Transfer: Freestone Level Goalmodified independent Transfer: Assistive Device Goalrolling walker Gait: Established Bzhj07-Zbm-1778 Gait: Freestone Level Goalmodified independent Gait: Assistive Device Goalrolling walker Gait: Distance Auxq852' Education: Learnerpatient Methodverbal Topicrehab plan of care; precautions; discharge recommendations including destination and/or equipment; fall prevention Education - Topicproper use of FWW for transfers and gait to reduce the risk of fall, reviewed spinal precautions and body mechanics for getting in and out of bed, concerns for discharging home Outcome Summary: Predicted Duration of Therapy Qfntpwsuikod75 days Progress: Physical Therapyprogress towards functional goals is fair Therapy Frequency (PT Eval)2 times/day Predicted Duration of Therapy Uattumhijluh46 days DC Recommendations: Discharge Recommendation (PT Eval)Pt would benefit from [facility] Electronic Signatures: Daniela Scott (PT) (Signed 07-Nov-2022 03:43) Co-Signer: Info, Mobility/Tone, Outcomes Tools, Short Term Goals, Education, Outcome Summary, DC Recommendations Fior Velez (SPT) (Signed 06-Nov-2022 14:30) Authored: Info, Mobility/Tone, Outcomes Tools, Short Term Goals, Education, Outcome Summary, DC Recommendations Last Updated: 07-Nov-2022 03:43 by Daniela Scott (PT) Normal [facility] BASIC METABOLIC PANELon - Anion gap [Moles/Vol] 12 mmol/L Normal 10 - 20 [facility] Comment on above: Performed By: #### B MP #### [address] [id number] Calcium [Mass/Vol] 8.8 mg/dL Normal 8.6 - 10.3 [facility] Comment on above: Performed By: #### B MP #### [address] [id number] Chloride [Moles/Vol] 101 mmol/L Normal 98 - 107 [facility] Comment on above: Performed By: #### B MP #### [address] [id number] Creatinine [Mass/Vol] 1.75 mg/dL High 0.50 - 1.30 [facility] Comment on above: Performed By: #### B MP #### [address] [id number] GFR/1.73 sq M.predicted among non-blacks MDRD (S/P/Bld) [Vol rate/Area] 42 mL/min/{1.73_m2} Abnormal >90 [facility] Comment on above: Result Comment: CALC ULATIONS OF ESTIMATED GFR ARE PERFORMED USING THE 2020 CKD-EPI STUDY REFIT EQUATION WITHOUT THE RACE VARIABLE FOR THE IDMS-TRACEABLE CREATININE METHODS. https://jasn.asnjournals.org/content/early/ASN.4086979 988 Performed By: #### B MP #### [address] [id number] Glucose [Mass/Vol] 131 mg/dL High 74 - 99 [facility] Comment on above: Performed By: #### B MP #### [address] [id number] HCO3 (Bld) [Moles/Vol] 26 mmol/L Normal 21 - 32 [facility] Comment on above: Performed By: #### B MP #### [address] [id number] Potassium [Moles/Vol] 4.0 mmol/L Normal 3.5 - 5.3 [facility] Comment on above: Performed By: #### B MP #### [address] [id number] Sodium [Moles/Vol] 135 mmol/L Low 136 - 145 [facility] Comment on above: Performed By: #### B MP #### [address] [id number] Urea nitrogen [Mass/Vol] 14 mg/dL Normal 6 - 23 [facility] Comment on above: Performed By: #### B MP #### [address] [id number] CBCon 11-05-2022 Erythrocyte distribution width (RBC) [Ratio] 13.4 % Normal 11.5 - 14.5 [facility] Comment on above: Performed By: #### C BC #### [address] [id number] Hematocrit (Bld) [Volume fraction] 43.6 % Normal 41.0 - 52.0 [facility] Comment on above: Performed By: #### C BC #### [address] [id number] Hemoglobin (Bld) [Mass/Vol] 14.3 g/dL Normal 13.5 - 17.5 [facility] Comment on above: Performed By: #### C BC #### [address] [id number] MCHC (RBC) [Mass/Vol] 32.8 g/dL Normal 32.0 - 36.0 [facility] Comment on above: Performed By: #### C BC #### [address] [id number] MCV (RBC) [Entitic vol] 96 fL Normal 80 - 100 [facility] Comment on above: Performed By: #### C BC #### [address] [id number] Platelets (Bld) [#/Vol] 244 10*3/uL Normal 150 - 450 [facility] Comment on above: Performed By: #### C BC #### [address] [id number] RBC 4.54 x10E12/L Normal 4.50 - 5.90 [facility] Comment on above: Performed By: #### C BC #### [address] [id number] WBC (Bld) [#/Vol] 16.4 10*3/uL High 4.4 - 11.3 [facility] Comment on above: Performed By: #### C BC #### [address] [id number] Daily Progress Note-General Internal Medicineon 11-05-2022 Daily [...] intact. Objective Data: Objective Information: T PRBPMAPSpO2 Value36.61763639/945594% Date/Time11/05 7: 0: 0: 7: 7: 7:33 [...] ----- Mn/Dy/Year TimeIntakeOutputNet Nov 05, 2022 6:00 [id number] Nov 04, 2022 10:00 [id number] Nov 04, 2022 2:00 [id number] The Intake and Output Totals for the last 24 hours are: IntakeOutputNet [id number] Physical Exam Narrative: Physical Exam: Constitutional: awake/alert/oriented [...] interview, assessm (more content not included)... Normal [facility] Daily Progress Note-Orthopae ibrahimason 11-05-2022 Daily Progress Note-Orthopaedics Service: Orthopaedics Subjective Data: ERIK MORALES is a 67 year old Male who is Hospital Day # 2 and POD #1 for 1. ;2. ;3. ;4. ;5. Overnight Events: Patient had an uneventful night. Objective Data: Objective Information: T PRBPMAPSpO2 Value36.65961644/835726% Date/Time11/05 7:339 0:40912 0:40912 7:339 7: 7:33 [...] ----- Mn/Dy/Year TimeIntakeOutputNet Nov 05, 2022 6:00 [id number] Nov 04, 2022 10:00 [id number] Nov 04, 2022 2:00 [id number] The Intake and Output Totals for the last 24 hours are: IntakeOutputNet [id number] T PRBPMAPSpO2 Value36.29685071/533490% Date/Time11/05 7: 0: 0: 7: 7:339 7:33 Range(36.1C - 36.8C ) (62 [...] out of bed Electronic Signatures: Derrick Cunningham (CONSULTING DATABASE ADMINISTRATOR-SATELLITE COMMUNICATIONS OPERATOR) (Signed 05-Nov-2022 08:16) Authored: Service, Subjective Data, Objective Data, Assessment and Plan, Note Completion Curtis Maldonado) (Signed 05-Nov-2022 09:30) Co-Signer: Service, Subjective Data, Objective Data, Assessment and Plan, Note Completion Last Updated: 05-Nov-2022 09:30 by Curtis Maldonado) [facility] Laboratory - Chemistry and C hemistry - challengeon 11-05-2022 Anion gap [Moles/Vol] 12 mmol/L 10 - 20 [facility] Work Phone: Calcium [Mass/Vol] 8.8 mg/dL 8.6 - 10.[address] [address] [facility] [place] Work Phone: Chloride [Moles/Vol] 101 mmol/L 98 - 107 [facility] [place] Work Phone: CO2 [Moles/Vol] 26 mmol/L 21 - 32 -[facility] [place] Work Phone: Creatinine [Mass/Vol] 1.75 mg/dL above high threshold See Below -[facility] [place] Work Phone: Comment on above: Reference Range: 0.5 0 - 1.30 Glucose [Mass/Vol] 131 mg/dL above high threshold 74 - 99 [facility] [place] Work Phone: Potassium [Moles/Vol] 4.0 mmol/L 3.5 - 5.3 [facility] Work Phone: Sodium [Moles/Vol] 135 mmol/L below low threshold 136 - 145 [facility] [place] Work Phone: Urea nitrogen [Mass/Vol] 14 mg/dL 6 - 23 [facility] Work Phone: [phone] Laboratory - Hematology and Cell countson 11-05-2022 Erythrocyte distribution width (RBC) [Ratio] 13.4 % See Below [facility] Work Phone: Comment on above: Reference Range: 11. 5 - 14.5 Hematocrit (Bld) [Volume fraction] 43.6 % See Below [facility] Work Phone: Comment on above: Reference Range: 41. 0 - 52.0 Hemoglobin (Bld) [Mass/Vol] 14.3 g/dL See Below [facility] Work Phone: [phone] Comment on above: Reference Range: 13. 5 - 17.5 MCHC (RBC) [Mass/Vol] 32.8 g/dL See Below [facility] Work Phone: Comment on above: Reference Range: 32. 0 - 36.0 MCV (RBC) [Entitic vol] 96 fL 80 - 100 [facility] Work Phone: [phone] Platelets (Bld) [#/Vol] 244 10*3/uL 150 - 450 [facility] Work Phone: [phone] RBC (Bld) [#/Vol] 4.54 {x10E12/L} See Below [facility] Work Phone: [phone] Comment on above: Reference Range: 4.5 0 - 5.90 WBC (Bld) [#/Vol] 16.4 10*3/uL above high threshold 4.4 - 11.3 [facility] Work Phone: No Panel Informationon 11-05 42 {mL/min/1.73m2} Abnormal >90 [facility] Work Phone: Comment on above: CALCULATIONS OF MEGAN MATED GFR ARE PERFORMED USING THE 2020 CKD-EPI STUDY REFIT EQUATION WITHOUT THE RACE VARIABLE FOR THE IDMS-TRACEABLE CREATININE METHODS.https://jasn.asnjournals.org/content/early/ASN .8307382137 OT Evaluation v2-occupationa l therapyon 11-05-2022 OT Evaluation v2-occupational therapy Rehab: Info: Mode of Treatmentoccupational therapy Time IN07:41 Time OUT08:05 Total Treatment Minutes0 Patient Effortgood Symptoms Noted During/After Treatmentnone Patient Profile Reviewedyes Onset of Illness/Injury or Date of Jxapiuj87-Rhr-2846 Reason for ReferralL2-3, L3-4 lami, L3-4 lateral [...] CGA with ww ADL: BADL Assessment/Interventionfee addison bourne grooming indep UB ADLs min A to don back brace LB ADLS mod A to don underwear and pants using recaher toileting CGA Motor: Sitting, Static (Balance)good balance Sitting, Dynamic (Balance)good balance Lhr-wf-Elaii (Balance)good balance Standing, Static (Balance)fair balance Standing, Dynamic (Balance)fair balance Sensory: Pre-Treatment Pain Rating3/10 Post-Treatment Pain Rating3/10 Comment, Pre/Post Treatment Painlow back pain Sensory General Assessmentno sensation deficits identified Impression: Criteria for Skilled Therapeutic Interventions Met (OT Eval)treatment indicated OT DiagnosisADL impairment Rehab Potential (OT Eval)good, to achieve stated therapy goals Therapy Frequency (OT Eval)2 times/wk Predicted Duration of Therapy Llnlgbckmthn92 days Functional Limitations in Following Categoriesself-care Planned [...] Upper Body Dressing: Established Upper Body Dressing: Freestone Level Goalstand-by assist Upper Body Dressing: Time Frame for Goal2 wks Lower Body Dressing: Established Lower Body Dressing: Freestone Level Goalminimum assist (75% patients effort) Lower [...] Updated: 05-Nov-2022 09:56 by Marianna Hayes (OT) [facility] PT Evaluation v2-physical th erapyon 11-05-2022 PT Evaluation v2-physical therapy Rehab: Info: Mode of Treatmentphysical therapy Time IN07:45 Time OUT08:05 Patient in ... at end of sessionchair; alarm on Patient Effortgood Patient Profile Reviewedyes Onset of Illness/Injury or Date of Hximidf40-Bwe-9309 Reason for ReferralSurgery 11.04.2022 L3-4 lateral interbody [...] Static (Balance)good balance Sitting, Dynamic (Balance)fair balance Lly-ul-Gchfq (Balance)fair + Standing, Static (Balance)fair + Standing, [...] (PT Eval)2 times/day Predicted Duration of Therapy Atiavznwwrjw67 days Outcomes Tools: Turning from your back [...] in hosp (more content not included)... Normal [facility] Rehab Note-physical therapyo n 11-05-2022 Rehab Note-physical therapy Rehab: Info: Disciplinephysical infusion therapy nurse Mode of Treatmentphysical therapy Time IN14:19 Time OUT14:44 Total Treatment Rgtruux12 Patient in ... at end of sessionbed, [...] Score18 Short Term Goals: Bed Mobility: Date Nqfowatwbfl11-Blo-0541 Bed Mobility: Freestone Level Goalmodified independent; supine <> sidelying <> sitting Transfer: Established Hpam99-Wpc-6065 Transfer: Transfer Type Ehuigsm-bl-cxphl/chair-to- bed; phn-hy-qhopg/pojmv-rl-zsd Transfer: Freestone Level Goalmodified independent Transfer: Assistive Device Goalrolling walker Gait: Established Lneo59-Fsd-3054 Gait: Freestone Level Goalmodified independent Gait: Assistive Device Goalrolling walker Gait: Distance Qywk021' Education: Learnerpatient; family member Methodverbal Outcome Evaluation1=partially meets; needs review Education - Topicpt able to recall spinal precautions , Able to don and doff TLSO brace Outcome Summary: Progress: Physical Therapyprogress toward functional goals as expected Electronic Signatures: Kelsea Cueto (FOUNDRY ENGINEER) (Signed 05-Nov-2022 16:34) Authored: Info, Mobility/Tone, Sensory, Outcomes Tools, Short Term Goals, Education, Outcome Summary Daniela Scott (PT) (Signed 06-Nov-2022 03:32) Co-Signer: Info, Mobility/Tone, Sensory, Outcomes Tools, Short Term Goals, Education, Outcome Summary Last Updated: 06-Nov-2022 03:32 by Daniela Scott (PT) Normal [facility] Admission Risk Screen - Adul ton 11-04-2022 Admission Risk Screen - Adult Allergies: Intolerances: nitroglycerin: Unknown Patient Verification: New W ID Band Applied in my Departmentno Type of ID Patient is WearingW wristband, but not applied here Patient Transferred from Other Facility ([facility], [facility],etc)no Patient Identity Verified Bypatient [...] AlertFor Ebola-like Symptoms: Isolate Patient and Notify Provider/Field Research Assistant For Contact: Notify Provider/Field Research Assistant Advance Directive: Advance Directive/DNRyes Advance Directive typeLiving Will, Durable Power of Assistant Teacher Primary for Healthcare Living Will AvailabilityLiving Will not available now Living Will Iyhreczmq19-Xoo-7294 Durable Power of Assistant Teacher Primary AvailabilityDPOA not available now Durable Power of Assistant Teacher Primary Jpqoubxwm99-Gux-1046 Durable Power of Assistant Teacher Primary contact (name and number)Dana [phone] [place] Fall Screen: History of falling (immediate [...] instruction; skill demonstration Cultural Considerationsnone Developmental Considerationsnone Caodaism Considerationsnone Learning Assessment (Other Learner): Other learner availableno Depression Screen: During the past month, have you often been bothered by feeling down, depressed or hopelessno During the past month, have you often had little interest or pleasure in doing thingsno Have you had any thoughts of harming anyone elseno [place] Suicide: Risk Screen Not Applicable/Able to Answerable to be screened In the Past Month: Have you wished you were or could go to sleep and not wake upno In the Past Month: Have you had any actual thoughts of killing yourselfno Lifetime: Have you ever done, started to do, or prepared to do anything to end your lifeno [place] Suicide Risknegative Adult Nutrition Screen: Have you [...] (frequency/quality)frequen t; (more content not included)... Normal [facility] Consult-General Internal Med sotero 11-04-2022 Consult-General Internal [...] nitroglycerin: Unknown Objective: Objective Information: T PRBPMAPSpO2 Value36.43550839/5525576% Date/Time11/04 15: 15: 15: 15: 15: 15:32 [...] to b (more content not included)... Normal [facility] Discharge Planning Kvtm7in 0 11-04-2022 Discharge Planning Note2 Discharge Planning: Planned Dispositionhome Discharge Destinationhome [place] of Choice Explainedyes Anticipated Discharge Kyse99-Qkh-3112 Discharge Planning 11/04/22 @ 1508 hours: Received [...] he is independent of ADLs and IADLs FOUNDRY ENGINEER and does not use AD. Drives. Pt plans to dc home. CT team will continue to monitor care progression and potential dc needs. Darya Jay RN TCC 11/06/22 0900 TCC UPDATE: [facility] score is PT (18) OT (16), [...] Jones RN TCC. Assessment: Discharge Planning Assessment Cgxq78-Vzp-6393 Primary Contact Name and NumberJose Carlos (brother) [phone] Lives Withsibling(s) Living Arrangementshouse PCPHoy [facility]ated [facility] Anticipated at Transitionnone InsuranceDevoted Anticipated [...] 06-Nov-2022 15:26 by Sultana Jones (CLIN COOR) [facility] Order Reconciliationon 11-04 Order Reconciliation Page 1 Admission Reconciliation Document Reconciliation Type: Admission requested on behalf of Heidy Escobar (Advanced Practice Nurse) done by Heidy Escobar (CONSULTING DATABASE ADMINISTRATOR-[facility]) Admission - Partial Reconciliation: 04-Nov-2022 15:50 by: Heidy Escobar (CONSULTING DATABASE ADMINISTRATOR-[facility]) Admission - Reconciliation: 04-Nov-2022 15:50 by: Heidy Escobar (CONSULTING DATABASE ADMINISTRATOR-[facility]) Home MedicationsEnteredLast Dose TakenReconciled with current Order Reconciliation Comment/ Additional Information atorvastatin 40 mg oral tablet 1 tab(s) orally once a day (at bedtime) PM Atorvastatin Tablet (LIPITOR)DOSE = 40 mg Oral At Bedtimeatorvastatin 40 mg oral tablet continued as the inpatient order Atorvastatin baclofen 10 mg oral tablet 1 tab(s) orally once a pmw93-Caf-059868-Ead-3398 PM Reviewed and Held Eliquis 5 mg oral tablet 1 tab(s) orally 2 times a day---AWARE TO HOLD PRIOR TO PROCEDURE Reviewed and Held furosemide 20 mg oral tablet 1 tab(s) orally once a jce33-Pri-853395-Rpt-4780 AM Furosemide Tablet (LASIX)DOSE = 20 mg Oral Dailyfurosemide 20 mg oral tablet is continued and suspended as Furosemide lisinopril 20 mg oral tablet 1 tab(s) orally once a fcj74-Eeg-892988-Uex-0073 PM Lisinopril Tablet (PRINIVIL, ZESTRIL)DOSE = 20 mg Oral Dailylisinopril 20 mg oral tablet is continued and suspended as Lisinopril metoprolol tartrate 25 mg oral tablet 1 tab(s) orally 2 times a day---AWARE TO TAKE MORNING OF PROCEDUE WITH A SIP OF KGKSV82-Dqq-515510-Wlt-458 3 02:30 AM Reviewed and Held Multiple Vitamins oral tablet 1 tab(s) orally once a gmb77-Kqe-988604-Nov-2022 AM Multivitamin with Minerals TabletDOSE = 1 tablet(s) Oral Daily Multiple Vitamins oral tablet continued as the inpatient order Multivitamin with Minerals nortriptyline 25 mg oral capsule orally once a hga70-Vbo-478461-Pag-8470 PM Nortriptyline Capsule (PAMELOR)DOSE = 25 mg [...] tab(s) orally 2 times a day, As Irlfet97-Ida-208501-Nuv-72 23 Reviewed and Held Potassium Chloride (Iys-Chht-Yvk 10) 10 mEq oral tablet, extended release 1 tab(s) orally once a ino51-Dhw-522558-Xni-9913 PM Reviewed and Held Additional Current Orders [...] 12 HoursRecommended Infusion Time: 60 minute(s) Normal [facility] Radiologyon 11-04-2022 Fluoroscopy duration Please click on the link to view the study images Normal [facility] Work Phone: Established Visit (Orthopaed [...] instructions were (more content not included)... Normal Eletrogóes APTTon 10-21-2022 aPTT Coag (Bld) [Time] 34 s Normal 27 - 38 [facility] Comment on above: Result Comment: Note new reference range as of 08/13/2022 at 10:00am. Performed By: #### A PTT #### [address] [id number] Activated Partial Thrombopla stin Timeon 10-21-2022 aPTT Coag (PPP) [Time] 34 s 27 - 38 [facility] Work Phone: Comment on above: Note new reference r jana as of 08/13/2022 at 10:00am. CBC AND DIFFERENTIALon 10-21 % AUTOMATED IMMATURE GRAN 0.3 % Normal 0.0 - 0.9 [facility] Comment on above: Result Comment: Jovanna ture Granulocyte Count (IG) includes promyelocytes, myelocytes and metamyelocytes but does not include bands. Percent differential counts (%) should be interpreted in the context of the absolute cell counts (cells/L). Performed By: #### C BCDF #### [address] [id number] Basophils (Bld) [#/Vol] 0.11 10*3/uL High 0.00 - 0.10 [facility] Comment on above: Performed By: #### C BCDF #### [address] [id number] Basophils/100 WBC (Bld) 1.2 % Normal 0.0 - 2.0 [facility] Comment on above: Performed By: #### C BCDF #### [address] [id number] Eosinophils (Bld) [#/Vol] 0.21 10*3/uL Normal 0.00 - 0.70 [facility] Comment on above: Performed By: #### C BCDF #### [address] [id number] Eosinophils/100 WBC (Bld) 2.2 % Normal 0.0 - 6.0 [facility] Comment on above: Performed By: #### C BCDF #### [address] [id number] Erythrocyte distribution width (RBC) [Ratio] 13.5 % Normal 11.5 - 14.5 [facility] Comment on above: Performed By: #### C BCDF #### [address] [id number] Hematocrit (Bld) [Volume fraction] 44.9 % Normal 41.0 - 52.0 [facility] Comment on above: Performed By: #### C BCDF #### [address] [id number] Hemoglobin (Bld) [Mass/Vol] 14.8 g/dL Normal 13.5 - 17.5 [facility] Comment on above: Performed By: #### C BCDF #### [address] [id number] Lymphocytes (Bld) [#/Vol] 1.28 10*3/uL Normal 1.20 - 4.80 [facility] Comment on above: Performed By: #### C BCDF #### [address] [id number] Lymphocytes/100 WBC (Bld) 13.6 % Normal 13.0 - 44.0 [facility] Comment on above: Performed By: #### C BCDF #### [address] [id number] MCHC (RBC) [Mass/Vol] 33.0 g/dL Normal 32.0 - 36.0 [facility] Comment on above: Performed By: #### C BCDF #### [address] [id number] MCV (RBC) [Entitic vol] 94 fL Normal 80 - 100 [facility] Comment on above: Performed By: #### C BCDF #### [address] [id number] Monocytes (Bld) [#/Vol] 0.72 10*3/uL Normal 0.10 - 1.00 [facility] Comment on above: Performed By: #### C BCDF #### [address] [id number] Monocytes/100 WBC (Bld) 7.7 % Normal 2.0 - 10.0 [facility] Comment on above: Performed By: #### C BCDF #### [address] [id number] Neutrophils (Bld) [#/Vol] 7.04 10*3/uL Normal 1.20 - 7.70 [facility] Comment on above: Performed By: #### C BCDF #### [address] [id number] Neutrophils/100 WBC (Bld) 75.0 % Normal 40.0 - 80.0 [facility] Comment on above: Performed By: #### C BCDF #### [address] [id number] Platelets (Bld) [#/Vol] 251 10*3/uL Normal 150 - 450 [facility] Comment on above: Performed By: #### C BCDF #### [address] [id number] RBC 4.78 x10E12/L Normal 4.50 - 5.90 [facility] Comment on above: Performed By: #### C BCDF #### [address] [id number] WBC (Bld) [#/Vol] 9.4 10*3/uL Normal 4.4 - 11.3 [facility] Comment on above: Performed By: #### C BCDF #### [address] [id number] COMPREHENSIVE PANELon 2022 Albumin [Mass/Vol] 4.0 g/dL Normal 3.4 - 5.0 [facility] Comment on above: Performed By: #### C BC #### [address] [id number] ALP [Catalytic activity/Vol] 127 U/L Normal 33 - 136 [facility] Comment on above: Performed By: #### C BC #### [address] [id number] ALT [Catalytic activity/Vol] 16 U/L Normal 10 - 52 [facility] Comment on above: Result Comment: Becca ents treated with Sulfasalazine may generate falsely decreased results for ALT. Performed By: #### C BC #### [address] [id number] Anion gap [Moles/Vol] 12 mmol/L Normal 10 - 20 [facility] Comment on above: Performed By: #### C BC #### [address] [id number] AST [Catalytic activity/Vol] 21 U/L Normal 9 - 39 [facility] Comment on above: Performed By: #### C BC #### [address] [id number] Bilirubin [Mass/Vol] 0.6 mg/dL Normal 0.0 - 1.2 [facility] Comment on above: Performed By: #### C BC #### [address] [id number] Calcium [Mass/Vol] 9.3 mg/dL Normal 8.6 - 10.3 [facility] Comment on above: Performed By: #### C BC #### [address] [id number] Chloride [Moles/Vol] 103 mmol/L Normal 98 - 107 [facility] Comment on above: Performed By: #### C BC #### [address] [id number] Creatinine [Mass/Vol] 1.29 mg/dL Normal 0.50 - 1.30 [facility] Comment on above: Performed By: #### C BC #### [address] [id number] GFR/1.73 sq M.predicted among non-blacks MDRD (S/P/Bld) [Vol rate/Area] 61 mL/min/{1.73_m2} Normal >90 [facility] Comment on above: Result Comment: CALC ULATIONS OF ESTIMATED GFR ARE PERFORMED USING THE 2020 CKD-EPI STUDY REFIT EQUATION WITHOUT THE RACE VARIABLE FOR THE IDMS-TRACEABLE CREATININE METHODS. https://jasn.asnjournals.org/content//ASN.2721314 988 Performed By: #### C BC #### [address] [id number] Glucose [Mass/Vol] 103 mg/dL High 74 - 99 [facility] Comment on above: Performed By: #### C BC #### [address] [id number] HCO3 (Bld) [Moles/Vol] 27 mmol/L Normal 21 - 32 [facility] Comment on above: Performed By: #### C BC #### [address] [id number] Potassium [Moles/Vol] 3.8 mmol/L Normal 3.5 - 5.3 [facility] Comment on above: Performed By: #### C BC #### [address] [id number] Protein [Mass/Vol] 7.4 g/dL Normal 6.4 - 8.2 [facility] Comment on above: Performed By: #### C BC #### [address] [id number] Sodium [Moles/Vol] 138 mmol/L Normal 136 - 145 [facility] Comment on above: Performed By: #### C BC #### [address] [id number] Urea nitrogen [Mass/Vol] 11 mg/dL Normal 6 - 23 [facility] Comment on above: Performed By: #### C BC #### [address] [id number] Complete Blood Count + Diffe maratialon 10-21-2022 Basophils/100 WBC (Bld) 1.2 % 0.0 - 2.0 [facility] Work Phone: Erythrocyte distribution width (RBC) [Ratio] 13.5 % See Below [facility] Work Phone: Comment on above: Reference Range: 11. 5 - 14.5 Hematocrit (Bld) [Volume fraction] 44.9 % See Below [facility] [place] Work Phone: Comment on above: Reference Range: 41. 0 - 52.0 Hemoglobin (Bld) [Mass/Vol] 14.8 g/dL See Below [facility] [place] Work Phone: Comment on above: Reference Range: 13. 5 - 17.5 Lymphocytes/100 WBC (Bld) 13.6 % See Below [facility] [place] Work Phone: [phone] Comment on above: Reference Range: 13. 0 - 44.0 MCHC (RBC) [Mass/Vol] 33.0 g/dL See Below [facility] [place] Work Phone: Comment on above: Reference Range: 32. 0 - 36.0 MCV (RBC) [Entitic vol] 94 fL 80 - 100 [facility] [place] Work Phone: [phone] Monocytes/100 WBC (Bld) 7.7 % 2.0 - 10.0 [facility] [place] Work Phone: [phone] Neutrophils/100 WBC (Bld) 75.0 % See Below [facility] [place] Work Phone: [phone] Comment on above: Reference Range: 40. 0 - 80.0 Platelets (Bld) [#/Vol] 251 10*3/uL 150 - 450 [facility] [place] Work Phone: [phone] RBC (Bld) [#/Vol] 4.78 {x10E12/L} See Below [facility] [place] Work Phone: [phone] Comment on above: Reference Range: 4.5 0 - 5.90 WBC (Bld) [#/Vol] 9.4 10*3/uL 4.4 - 11.[address] [facility] [address] [facility] [place] Work Phone: [phone] Complete Blood Count + Differential 0.11 {x10E9/L} above high threshold See Below [facility] Work Phone: Comment on above: Reference Range: 0.0 0 - 0.10 Complete Blood Count + Differential 0.21 {x10E9/L} See Below [facility] Work Phone: Comment on above: Reference Range: 0.0 0 - 0.70 Complete Blood Count + Differential 0.72 {x10E9/L} See Below [facility] Work Phone: Comment on above: Reference Range: 0.1 0 - 1.00 Complete Blood Count + Differential 1.28 {x10E9/L} See Below [facility] Work Phone: Comment on above: Reference Range: 1.2 0 - 4.80 Complete Blood Count + Differential 7.04 {x10E9/L} See Below [facility] Work Phone: Comment on above: Reference Range: 1.2 0 - 7.70 Complete Blood Count + Differential 2.2 % 0.0 - 6.0 [facility] Work Phone: Complete Blood Count + Differential 0.3 % 0.0 - 0.9 [facility] Work Phone: Comment on above: Immature Granulocyte Count (IG) includes promyelocytes, myelocytes and metamyelocytes but does not include bands. Percent differential counts (%) should be interpreted in the context of the absolute cell counts (cells/L). Electrocardiogram 12 Leadon 10-21-2022 Electrocardiogram 12 Lead Ventricular Rate 64 Atrial Rate 64 P-R Interval 172 QRS Duration 84 Q-T Interval 398 QTC Calculation(Bazett) 410 P Hawks 22 R Hawks 17 T Hawks 32 QRS Count 11 Q Onset 225 P Onset 139 P Offset 198 T Offset 424 QTC Fredericia 406 Diagnosis Class Borderline Normal Diagnosis Normal sinus rhythm Early transition Otherwise normal ECG No previous ECGs available Confirmed by Curtis Trejo ([id number]) on 10/24/2022 9:27:12 AM Normal [facility] - Chemistry and C hemistry - challengeon 10-21-2022 Albumin BCP dye [Mass/Vol] 4.0 g/dL 3.4 - 5.0 -[facility] Work Phone: [phone] ALP [Catalytic activity/Vol] 127 U/L 33 - 136 -[facility] Work Phone: [phone] ALT With P-5'-P [Catalytic activity/Vol] 16 U/L 10 - 52 -[facility] Work Phone: [phone] Comment on above: Patients treated wit h Sulfasalazine may generate falsely decreased results for ALT. Anion gap [Moles/Vol] 12 mmol/L 10 - 20 -[facility] Work Phone: AST With P-5'-P [Catalytic activity/Vol] 21 U/L 9 - 39 -[facility] Work Phone: Bilirubin [Mass/Vol] 0.6 mg/dL 0.0 - 1.2 [facility] Work Phone: Calcium [Mass/Vol] 9.3 mg/dL 8.6 - 10.[address] [facility] Work Phone: Chloride [Moles/Vol] 103 mmol/L 98 - 107 [facility] Work Phone: [phone] CO2 [Moles/Vol] 27 mmol/L 21 - 32 -[facility] Work Phone: [phone] Creatinine [Mass/Vol] 1.29 mg/dL See Below -[facility] Work Phone: Comment on above: Reference Range: 0.5 0 - 1.30 Glucose [Mass/Vol] 103 mg/dL above high threshold 74 - 99 -[facility] Work Phone: Potassium [Moles/Vol] 3.8 mmol/L 3.5 - 5.3 [facility] Work Phone: [phone] Protein [Mass/Vol] 7.4 g/dL 6.4 - 8.[address] [facility] [place] Work Phone: [phone] Sodium [Moles/Vol] 138 mmol/L 136 - [address] [facility] Work Phone: [phone] Urea nitrogen [Mass/Vol] 11 mg/dL 6 - 23 [facility] Work Phone: [phone] - Coagulationon 0 10-21-2022 INR Coag (PPP) [Relative time] 1.4 {INR} above high threshold 0.9 - 1.1 [facility] Work Phone: [phone] PT Coag (PPP) [Time] 16.2 s above high threshold 9.8 - 12.8 -[place] [facility] Work Phone: [phone] Comment on above: Note new reference r jana as of 08/13/2022 at 10:00am. MRSA Screenon 10-21-2022 Staphylococcus sp identified Org specific cx Nom (Unsp spec) Abnormal [facility] Work Phone: [phone] Panel Informationon 10-21 [email or web address] ?RetrieveTestByDateTime?Pa zxszhHZ=[id number]&Date=&Time=14%3a28%3a16% 3a00&TestType=ECG&Site=1&O utputType=PDF&Ext=PDF -[facility] Work Phone: [phone] Normal sinus rhythm [facility] Work Phone: [phone] Borderline Normal [facility] Work Phone: [facility] Work Phone: [phone] [facility] [place] Work Phone: [phone] [facility] [place] Work Phone: [phone] [facility] [place] Work Phone: [phone] [facility] [place] Work Phone: [phone] [facility] [place] Work Phone: [phone] [facility] [place] Work Phone: [phone] [facility] [place] Work Phone: [phone] [facility] [place] Work Phone: [phone] [facility] [place] Work Phone: [phone] [facility] [place] Work Phone: [phone] [facility] [place] Work Phone: [phone] [facility] [place] Work Phone: [phone] [facility] [place] Work Phone: [phone] {mL/min/1.73m2} >[address] [facility] [place] Work Phone: [phone] Comment on above: CALCULATIONS OF MEGAN MATED GFR ARE PERFORMED USING THE 2020 CKD-EPI STUDY REFIT EQUATION WITHOUT THE RACE VARIABLE FOR THE IDMS-TRACEABLE CREATININE METHODS.https://jasn.asnjournals.org/content//ASN .5213742535 PT/INRon 10-21-2022 PT Coag (PPP) [Time] 16.2 s High 9.8 - 12.8 [facility] Comment on above: Result Comment: Note new reference range as of 08/13/2022 at 10:00am. Performed By: #### P TINR #### [address], [place] [id number] PT, INR 1.4 High 0.9 - 1.1 [facility] Comment on above: Performed By: #### P TINR #### [address] [id number] Patient Profile - Preop v3on 10-21-2022 Patient Profile - Preop v3 Patient Profile - Preop: Initial Info: Patient DemographicsName: ERIK MORALES Date: 1955 Address: [address] [place] [address] Date/Time [id number] 13:33 Primary Phone [phone] Instructions Givenappropriate clothing, bring responsible adult as the drive away driver (procedure may be cancelled if no drive away driver), center location, insurance information Prep Instructions Reviewedyes Prep TypeCHG wipes Instructed to Have No Fluids AfterNPO after midnight How to be AddressedGarry Spoken Language PreferredEnglish Source of Informationpatient Stated Reason for AdmissionBack surgery Primary Contact Name and NumberJose Carlos (brother) [phone] Other Contact Names and NumbersDerick Garsia (friend) [phone] Limitations on Visitors/Phone Callsnone Medications Brought to [facility]: Weight in kg90.4 kilogram(s) Weight in ddp800.2 pound(s) Weight Methodactual (measured) Scale Typestanding Height [...] CommentsLives with brother Resource/Environmental Concernsnone Anticipated Transition [place] [facility] Anticipated at Transitionnone Tobacco Use: Tobacco Useno former cigar smoker, quit 15 years ago Pre-op Checklist: Arrival [id number] Arrival Time09:25 Procedure TypeL2-3, L3-4 LAMINECTOMY, L3-4 INSTRUMENTATION, L2-3, L3-4 POSTERIOR LATERAL FUSION, L3-4LATERAL LUMBAR INTERBODY FUSION NPOyes Last Food [id number] 18:30 Last Clear Fluid [id number] 19:00 ID Band On Patientpatient ID (name), falls risk Consent Signedyes H&P Completeyes Anesthesia Assessment Completedpending EKG Performedsee results tab Chest X-Ray Performednot ordered Preop Antibioticssent to OR Beta-sushant Last Dose Date/[id number] 02:30 Glucose Resultn/a Type and Screen Resultedn/a [...] Updated: 04-Nov-2022 05:56 by Moira Marsh) Normal [facility] STAPH/MRSA SCREENon 10-22-19 23 STAPH/MRSA SCREEN PATIENT: ERIK MORALES LOCATION: [facility] BILL#: [id number] : [birth year] AGE: SEX: M ORDERED BY: CURTIS MELÉNDEZ SOURCE: MISC COLLECTED: 10/21/22 14:18 ANTIBIOTICS AT TEDDY.: RECEIVED : 10/21/22 21:56 SITE: R E S U L T S STAPH/MRSA SCREEN FINAL 10/23/22 12:12 ISOLATE1 : Staphylococcus aureus METHICILLIN SENSITIVE STAPHYLOCOCCUS AUREUS (MSSA) Normal [facility] Comment on above: Performed By: #### S TAPH #### [facility] [address] [place] [address] URINALYSIS WITH CULTURE IF I NDICATEDon 10-21-2022 Appearance (U) CLEAR Normal CLEAR [facility] Comment on above: Performed By: #### U ARFX #### [address] [id number] Bilirubin Ql (U) Negative Normal NEGATIVE [facility] Comment on above: Performed By: #### U ARFX #### [address] [id number] Color (U) YELLOW Normal STRAW,YELLO W [facility] Comment on above: Performed By: #### U ARFX #### [address] [id number] Glucose Ql (U) Negative Normal NEGATIVE [facility] Comment on above: Performed By: #### U ARFX #### [address] [id number] Hemoglobin Ql (U) Negative Normal NEGATIVE [facility] Comment on above: Performed By: #### U ARFX #### [address] [id number] Ketones Ql (U) Negative Normal NEGATIVE [facility] Comment on above: Performed By: #### U ARFX #### [address] [id number] Leukocyte esterase Test strip Ql (U) Negative Normal NEGATIVE [facility] Comment on above: Performed By: #### U ARFX #### [address] [id number] Nitrite Ql (U) Negative Normal NEGATIVE [facility] Comment on above: Performed By: #### U ARFX #### [address] [id number] pH (U) 6.0 [pH] Normal 5.0 - 8.0 [facility] Comment on above: Performed By: #### U ARFX #### [address] [id number] Protein Ql (U) Negative Normal NEGATIVE [facility] Comment on above: Performed By: #### U ARFX #### [address] [id number] Specific gravity (U) [Rel density] 1.010 Normal 1.005 - 1.035 [facility] Comment on above: Performed By: #### U ARFX #### [address] [id number] Urobilinogen (U) [Mass/Vol] mg/dL Normal 0.0 - 1.9 [facility] Comment on above: Performed By: #### U ARFX #### [address] [id number] Color (U) YELLOW See Below -[facility] Work Phone: Comment on above: Reference Range: STR AW,YELLOW Glucose Ql (U) Negative NEGATIVE -[facility] Work Phone: Ketones Ql (U) Negative NEGATIVE -[facility] Work Phone: Leukocyte esterase Test strip Ql (U) Negative NEGATIVE -[facility] [employer] Phone: pH (U) 6.0 [pH] 5.0 - 8.0 -[facility] [place] Phone: Protein (U) [Mass/Vol] Negative NEGATIVE -[facility] Work Phone: RBC (U) [#/Vol] Negative NEGATIVE -[facility] [place] Phone: Specific gravity (U) [Rel density] 1.010 1 See Below -[facility] [employer] Phone: Comment on above: Reference Range: 1.0 05 - 1.035 URINALYSIS WITH CULTURE IF INDICATED Negative NEGATIVE -[facility] [employer] Phone: URINALYSIS WITH CULTURE IF INDICATED <2.0 0.0 - 1.9 -[facility] [place] Phone: URINALYSIS WITH CULTURE IF INDICATED CLEAR CLEAR -[facility] [employer] Phone: Established Visit (Orthopaed ic Surgery)on 09-19-2022 Established Visit (Orthopaedic Surgery) Orders Back pain, Other intervertebral disc degeneration, lumbar region Cinebar Back Brace; Status:Need Information - Financial Authorization; Requested for:[id number]; Osteogenesic Stimulator; Status:Active; Requested for:[id number]; Provider Impressions Assessment: At this time, I [...] Normal [facility]on 08-23-2022 Initial Visit (Orthopaedic Surgery) Provider [...] thoracic and lumbar xrays and MRI in [place]. brought a disc. History of Present IllnessErik [...] to the pain management center down in [place]. Review of Systems Review of systems, past [...] XR Lumbar spine AP and Lateral Normal [facility] [facility] Work Phone: SPINE, LUMBOSACRAL 2 OR 3 EWSon 08-23-2022 SPINE, LUMBOSACRAL 2 OR 3 VIEWS Patient Name: ERIK MORALES STUDY: SPINE, LUMBOSACRAL; 2 OR 3 VIEWS; ; 08/23/2022 1:37 pm INDICATION: pain M51.36: Other intervertebral disc degeneration, lumbar region M54.9: Back pain. ACCESSION NUMBER(S): [id number] ORDERING CLINICIAN: CURTIS MELÉNDEZ FINDINGS: Flexion-extension x-rays [...] Electronically signed by: CURTIS MELÉNDEZ MD Normal [facility] Abdominal Aorta/Nancy ac/IVC Ultraon 07-31-2022 VASC LAB Abdominal Aorta/Iliac/IVC Ultra [address], [address] [address] Vascular Lab Report Abdominal Aorta Iliac Ultrasound/IVC Ultrasound Patient Name: ERIK Mckoy Physician: [id number] VICKEY Sparks MD [facility] Study Date: 07/31/2022 Referring CECILIO GO Physician: MRN/PID: [id number] PCP: Radames Witt Accession/Order#: [id number] CC Report to: Date of : 1955 Technologist: Karol Hull RDCS, T Gender: M Technologist 2: Admission Status: Outpatient Location Performed: [facility] Diagnosis/ICD: I71.43-Infrarenal abdominal aortic aneurysm, without rupture Indication: HTN, Hyperlipidemia, Obesity, Former Smoker, Dyspnea, Pulmonary Fibrosis Procedure/CPT: 54746 Duplex Aorta/IVC/Iliac/Bypass Graft-[id number] CONCLUSIONS: Aorta/Common Iliac Arteries/IVC: Infrarenal fusiform abdominal [...] Proximal 0.71 cm 0.96 cm 0.96 cm/s [id number] Cecilio Go MD, [facility] Final Normal [facility] Abdominal Aorta/Nancy ac/IVC Ultrasoundon 07-31-2022 [facility] Abdominal Aorta/Iliac/IVC Ultrasound [facility] [address] DO Work Phone: XR [...] IRAIS LORENZANA Date: 2022-07-02 13:50 Normal [facility] Office Visit (Cardiology)on 06-04-2022 Follow-up visit Diagnoses/Problems [...] Weight Tips; Status:Complete - Retrospective Authorization; Done: [id number] Some eating tips that can help you lose weight.; Status:Complete - Retrospective Authorization; Done: [id number] SocHx: Former smoker Tobacco Use Screening; Status:Complete; Done: [id number] Patient Instructions Please bring all medicines, vitamins, [...] rashes. Neurologic (more content not included)... Normal [place] Tobacco Screening.on 023 Adult depression screening assessment No [facility] [address] DO Work Phone: Fall risk assessment a) No falls within the last year [facility] [address] DO Work Phone: Tobacco use status CPHS b) No [facility] [address] DO Work Phone: CREATININEon 02-18-2022 Creatinine [Mass/Vol] 1.23 mg/dL Normal 0.70-1.30 [facility] Comment on above: Performed By: #### E RUR #### [facility] [address] [place] [address] Dr. Arielle Biswas EGFR-AF DOMINICAN >60 Normal >=60 [facility] Comment on above: Performed By: #### E RUR #### [facility] [address] [place], [place] [address] Dr. Arielle Biswas EGFR-NON AF DOMINICAN 59 mL/min/1.73m2 Critically low >=60 [facility] Comment on above: Performed By: #### E RUR #### [facility] [address] [place], [place] [address] CHEST W CONon [...] BRITANY TSANG Date: 2022-02-18 15:28 Normal [facility] Office Visit (Cardiology)on 12-11-2021 Follow-up visit Diagnoses/Problems [...] Weight Tips; Status:Complete - Retrospective Authorization; Done: [id number] Some eating tips that can help you lose weight.; Status:Complete - Retrospective Authorization; Done: [id number] SocHx: Former smoker Tobacco Use Screening; Status:Complete; Done: [id number] Patient Instructions Please bring all medicines, vitamins, [...] pulmonary embolism. Recently follow-up CT scan at [facility] revealed resolution of the pulmonary emboli. Some other pathology was noted with densities requiring follow-up imaging in 3 to 6 months which has been arranged through his PCP. He is currently anticoagulated with Eliquis. The patient is contemplating further dental work in December which he should be able to hold anticoagulation prior to. Recent nuclear stress test at [facility] was reviewed and shared with the patient and was normal. He is also known to have normal ejection fraction. He currently has no complaint to report physical examination was only remarkable for 8 pounds weight gain from last visit. He is now in the obesity range recent medical record from [facility] were reviewed with the patient and reviewed [...] palpitations, but (more content not included)... Normal [place] Tobacco Screening.on Fall risk assessment a) No falls within the last year -[facility] [address] DO Work Phone: Tobacco use status CPHS b) No -[facility] [address] DO Work Phone: [phone] Tobacco Screening. Yes [facility] [address] DO Work [...] BRITANY TSANG Date: 2021-11-05 11:08 Normal [facility] NM STRESS/REST MULTIon 10-17 NM STRESS/REST MULTI Patient: ERIK MORALES Exam Date: 10/17/2021 : 1955 Gender:M Ordering : DR RADAMES WITT . Admission #: [id number] Family : Order #: [id number] CLICK HERE TO VIEW EXAM RADIOLOGY REPORT [...] M.D. on 10/17/2021 at 13:48 Normal [facility] T4, T3U, FTI LABCORPon 10-10 Free Thyroxine Index 2.1 Normal 1.2-4.9 [facility] Comment on above: Performed By: #### E RUR #### [facility] [address] [place] [address] Dr. Arielle Biswas T3 Uptake 28 % Normal 24-39 [facility] Comment on above: Performed By: #### E RUR #### [facility] [address] [place] [address] Dr. Arielle Biswas T4 [Mass/Vol] 7.5 ug/dL Normal 4.5-12.0 [facility] Comment on above: Performed By: #### E RUR #### [facility] [address] [place] [address] Dr. Arielle Biswas BNPon 10-09-2021 Natriuretic peptide B (Bld) [Mass/Vol] 319.0 pg/mL Normal <=900.0 [facility] Comment on above: Performed By: #### B GHOST WRITER, TSH, CMP #### [facility] [address] [place] [address] Dr. Arielle Biswas CBC AUTO DIFFon 10-09-2021 BASO # 0.1 103/ul Normal 0.0-0.1 [facility] Comment on above: Performed By: #### C BC #### [facility] [address] [place] [address] Dr. Arielle Biswas Basophils/100 WBC (Bld) 1.3 % Normal 0.2-2.0 [facility] Comment on above: Performed By: #### C BC #### [facility] [address] [place] [address] Dr. Arielle Biswas EO # 0.2 103/ul Normal 0.0-0.7 [facility] Comment on above: Performed By: #### C BC #### [facility] [address] [place] [address] Dr. Arielle Biswas Eosinophils/100 WBC (Bld) 3.0 % Normal 0.9-7.0 [facility] Comment on above: Performed By: #### C BC #### [facility] [address] [place] [address] Dr. Arielle Biswas Erythrocyte distribution width (RBC) [Ratio] 13.5 % Normal 11.0-15.0 [facility] Comment on above: Performed By: #### C BC #### [facility] [address] [place] [address] Dr. Arielle Biswas Hematocrit (Bld) [Volume fraction] 41.8 % Critically low 42.0-54.0 [facility] Comment on above: Performed By: #### C BC #### [facility] [address] [place] [address] Dr. Arielle Biswas Hemoglobin (Bld) [Mass/Vol] 13.6 g/dL Critically low 14.0-18.0 [facility] Comment on above: Performed By: #### C BC #### [facility] [address] [place] [address] Dr. Arielle Biswas IG # 0.03 10e3/ul Normal 0.00-0.03 [facility] Comment on above: Performed By: #### C BC #### [facility] [address] [place] [address] Dr. Arielle Biswas IG % 0.4 % Normal 0.0-0.5 [facility] Comment on above: Performed By: #### C BC #### [facility] [address] [place] [address] Dr. Arielle Biswas LYMPH # 1.2 103/ul Normal 1.2-3.8 [facility] Comment on above: Performed By: #### C BC #### [facility] [address] [place] [address] Dr. Arielle Biswas Lymphocytes/100 WBC (Bld) 16.5 % Critically low 20.5-60.0 [facility] Comment on above: Performed By: #### C BC #### [facility] [address] [place] [address] Dr. Arielle Biswas MANUAL DIFF REQ NO Normal [facility] Comment on above: Performed By: #### C BC #### [facility] [address] [place] [address] Dr. Arielle Biswas MCH (RBC) [Entitic mass] 31.2 pg Normal 25.9-34.0 [facility] Comment on above: Performed By: #### C BC #### [facility] [address] [place] [address] [address] Arielle Biswas MCHC (RBC) [Mass/Vol] 32.5 g/dL Normal 29.9-35.2 [facility] Comment on above: Performed By: #### C BC #### [facility] [address] [place] [address] [address] Arielle Biswas MCV (RBC) [Entitic vol] 95.9 fL Critically high 80.0-94.0 [facility] Comment on above: Performed By: #### C BC #### [facility] [address] [place] [address] [address] Arielle Biswas MONO # 0.8 103/ul Normal 0.3-0.8 [facility] Comment on above: Performed By: #### C BC #### [facility] [address] [place] [address] Dr. Arielle Biswas Monocytes/100 WBC (Bld) 11.5 % Normal 1.7-12.0 [facility] Comment on above: Performed By: #### C BC #### [facility] [address] [place] [address] Dr. Arielle Biswas NEUT # 4.7 103/ul Normal 1.4-6.5 [facility] Comment on above: Performed By: #### C BC #### [facility] [address] [place] [address] Dr. Arielle Biswas Neutrophils/100 WBC (Bld) 67.3 % Normal 43.0-75.0 [facility] Comment on above: Performed By: #### C BC #### [facility] [address] [place] [address] Dr. Arielle Biswas Platelet mean volume (Bld) [Entitic vol] 10.2 fL Normal 9.5-13.5 [facility] Comment on above: Performed By: #### C BC #### [facility] [address] [place] [address] Dr. Arielle Biswas PLT 243 103/ul Normal 150-450 [facility] Comment on above: Performed By: #### C BC #### [facility] [address] [place] [address] Dr. Arielle Biswas RBC 4.36 106/ul Critically low 4.70-6.10 [facility] Comment on above: Performed By: #### C BC #### [facility] [address] [place] [address] Dr. Arielle Biswas WBC 7.0 103/ul Normal 4.0-11.0 [facility] Comment on above: Performed By: #### C BC #### [facility] [address] [place] [address] Dr. Arielle Biswas D-DIMERon 10-09-2021 D-DIMER 0.30 mg/L FEU Normal <=0.59 [facility] Comment on above: Performed By: #### E RUR #### [facility] [address] [place] [address] Dr. Arielle Biswas D-DIMER COMMENTS SEE BELOW Normal [facility] Comment on above: Result Comment: Incr eases [...] hospitalization. Performed By: #### E RUR #### [facility] [address] [place] [address] Dr. Arielle Biswas PROF 14(COMP METB)on 022 Albumin [Mass/Vol] 3.0 g/dL Critically low 3.4-5.0 [facility] Comment on above: Performed By: #### B GHOST WRITER, TSH, CMP #### [facility] [address] [place] [address] Dr. Arielle Biswas Albumin/Globulin [Mass ratio] 0.8 {ratio} Normal [facility] Comment on above: Performed By: #### B GHOST WRITER, TSH, CMP #### [facility] [address] [place] [address] Dr. Arielle Biswas ALP [Catalytic activity/Vol] 120 U/L Critically high 46-116 [facility] Comment on above: Performed By: #### B GHOST WRITER, TSH, CMP #### [facility] [address] [place] [address] [address] Arielle Biswas ALT [Catalytic activity/Vol] 21 U/L Normal 16-63 [facility] Comment on above: Performed By: #### B GHOST WRITER, TSH, CMP #### [facility] [address] [address] [address] Arielle Biswas Anion gap [Moles/Vol] 9.9 mmol/L Normal [facility] Comment on above: Performed By: #### B GHOST WRITER, TSH, CMP #### [facility] [address] [place] [address] Dr. Arielle Biswas AST [Catalytic activity/Vol] 20 U/L Normal 15-37 [facility] Comment on above: Performed By: #### B GHOST WRITER, TSH, CMP #### [facility] [address] [place] [address] Dr. Arielle Biswas Bilirubin [Mass/Vol] 0.6 mg/dL Normal 0.2-1.0 [facility] Comment on above: Performed By: #### B GHOST WRITER, TSH, CMP #### [facility] [address] [place] [address] Dr. Arielle Biswas Calcium [Mass/Vol] 8.8 mg/dL Normal 8.5-10.1 [facility] Comment on above: Performed By: #### B GHOST WRITER, TSH, CMP #### [facility] [address] [place] [address] Dr. Arielle Biswas Chloride [Moles/Vol] 103 mmol/L Normal 98-107 [facility] Comment on above: Performed By: #### B GHOST WRITER, TSH, CMP #### [facility] [address] [place] [address] Dr. Arielle Biswas CO2 [Moles/Vol] 29.0 mmol/L Normal 21.0-32.0 [facility] Comment on above: Performed By: #### B GHOST WRITER, TSH, CMP #### [facility] [address] [place] [address] [address] Arielle Biswas Creatinine [Mass/Vol] 1.23 mg/dL Normal 0.70-1.30 [facility] Comment on above: Performed By: #### B GHOST WRITER, TSH, CMP #### [facility] [address] [place] [address] [address] Arielle Biswas EGFR-AF DOMINICAN >60 Normal >=60 [facility] Comment on above: Performed By: #### B GHOST WRITER, TSH, CMP #### [facility] [address] [address] [address] Arielle Biswas EGFR-NON AF DOMINICAN 59 mL/min/1.73m2 Critically low >=60 [facility] Comment on above: Performed By: #### B GHOST WRITER, TSH, CMP #### [facility] [address] [address] [address] Arielle Biswas Globulin (S) [Mass/Vol] 3.7 g/dL Normal [facility] Comment on above: Performed By: #### B GHOST WRITER, TSH, CMP #### [facility] [address] [address] [address] Arielle Biswas Glucose [Mass/Vol] 95 mg/dL Normal 74-106 [facility] Comment on above: Performed By: #### B GHOST WRITER, TSH, CMP #### [facility] [address] [address] [address] Arielle Biswas Potassium [Moles/Vol] 3.9 mmol/L Normal 3.5-5.1 [facility] Comment on above: Performed By: #### B GHOST WRITER, TSH, CMP #### [facility] [address] [address] [address] Arielle Biswas Protein [Mass/Vol] 6.7 g/dL Normal 6.4-8.2 [facility] Comment on above: Performed By: #### B GHOST WRITER, TSH, CMP #### [facility] [address] [address] [address] Arielle Biswas Sodium [Moles/Vol] 138 mmol/L Normal 136-145 [facility] Comment on above: Performed By: #### B GHOST WRITER, TSH, CMP #### [facility] [address] [address] [address] Arielle Biswas Urea nitrogen [Mass/Vol] 13.0 mg/dL Normal 7.0-18.0 [facility] Comment on above: Performed By: #### B GHOST WRITER, TSH, CMP #### [facility] [address] [place] [address] Dr. Arielle Biswas Urea nitrogen/Creatinine [Mass ratio] 10.6 mg/mg Normal [facility] Comment on above: Performed By: #### B GHOST WRITER, TSH, CMP #### [facility] [address] [place] [address] Dr. Arielle Biswas TSHon 10-09-2021 TSH 0.393 uIU/mL Normal 0.358-3.740 [facility] Comment on above: Performed By: #### B GHOST WRITER, TSH, CMP #### [facility] [address] [place] [address] Dr. Arielle Biswas Tobacco Screening.on 022 Adult depression screening assessment No [facility] [address] DO Work Phone: Fall risk assessment a) No falls within the last year [facility] [address] DO Work Phone: Tobacco use status CPHS b) No [facility] [address] DO Work Phone: CARDIAC DAVON 3-6on 2 CK [Catalytic activity/Vol] 80 U/L Normal 39-308 [facility] Comment on above: Performed By: #### E RUR #### [facility] [address] [place] [address] Dr. Arielle Biswas CK.MB [Mass/Vol] 2.19 ng/mL Normal <=3.60 [facility] Comment on above: Performed By: #### E RUR #### [facility] [address] [place] [address] Dr. Arielle Biswas HSTROP 152.1 pg/mL Critically high 4.0-76.1 [facility] Comment on above: Result Comment: CUT- OFF POINTS HAVE BEEN ESTABLISHED BASED ON THE FOURTH UNIVERSAL DEFINITIONS OF MYOCARDIAL INFARCTION. THE UPPER REFERENCE LIMIT (URL) OF TROPONIN, DEFINED THE 99TH PERCENTILE OF cTnI DISTRIBUTION IN A REFERENCE POPULATION, HAS BEEN CONFIRMED THE DECISION THRESHOLD FOR VA DIAGNOSIS. repeated Performed By: #### E RUR #### [facility] [address] [place] [address] Dr. Arielle Biswas CARDIAC DAVON ADMITon 022 CK [Catalytic activity/Vol] 32 U/L Critically low 39-308 [facility] Comment on above: Performed By: #### B FRANKLYN, CMADM #### [facility] [address] [place] [address] Dr. Arielle Biswas CK.MB [Mass/Vol] 2.01 ng/mL Normal <=3.60 [facility] Comment on above: Performed By: #### B FRANKLYN, CMADM #### [facility] [address] [place] [address] Dr. Arielle Biswas HSTROP 144.5 pg/mL Critically high 4.0-76.1 [facility] Comment on above: Result Comment: CUT- OFF POINTS HAVE BEEN ESTABLISHED BASED ON THE FOURTH UNIVERSAL DEFINITIONS OF MYOCARDIAL INFARCTION. THE UPPER REFERENCE LIMIT (URL) OF TROPONIN, DEFINED THE 99TH PERCENTILE OF cTnI DISTRIBUTION IN A REFERENCE POPULATION, HAS BEEN CONFIRMED THE DECISION THRESHOLD FOR VA DIAGNOSIS. repeated Performed By: #### B FRANKLYN, CMADM #### [facility] [address] [place] [address] Dr. Arielle Biswas PJ 39 ng/mL Normal 16-96 [facility] Comment on above: Performed By: #### B FRANKLYN, CMADM #### [facility] [address] [place] [address] Dr. Arielle Biswas CBC AUTO DIFFon 07-14-2021 BASO # 0.1 103/ul Normal 0.0-0.1 [facility] Comment on above: Performed By: #### E RUR #### [facility] [address] [place] [address] Dr. Arielle Biswas Basophils/100 WBC (Bld) 0.5 % Normal 0.2-2.0 [facility] Comment on above: Performed By: #### E RUR #### [facility] [address] [address] [address] Arielle Biswas EO # 0.1 103/ul Normal 0.0-0.7 [facility] Comment on above: Performed By: #### E RUR #### [facility] [address] [place] [address] Dr. Arielle Biswas Eosinophils/100 WBC (Bld) 0.6 % Critically low 0.9-7.0 [facility] Comment on above: Performed By: #### E RUR #### [facility] [address] [place] [address] Dr. Arielle Biswas Erythrocyte distribution width (RBC) [Ratio] 14.6 % Normal 11.0-15.0 [facility] Comment on above: Performed By: #### E RUR #### [facility] [address] [place] [address] Dr. Arielle Biswas Hematocrit (Bld) [Volume fraction] 45.5 % Normal 42.0-54.0 [facility] Comment on above: Performed By: #### E RUR #### [facility] [address] [place] [address] Dr. Arielle Biswas Hemoglobin (Bld) [Mass/Vol] 14.5 g/dL Normal 14.0-18.0 [facility] Comment on above: Performed By: #### E RUR #### [facility] [address] [place] [address] Dr. Arielle Biswas IG # 0.13 10e3/ul Critically high 0.00-0.03 [facility] Comment on above: Performed By: #### E RUR #### [facility] [address] [place] [address] Dr. Arielle Biswas IG % 0.8 % Critically high 0.0-0.5 [facility] Comment on above: Performed By: #### E RUR #### [facility] [address] [place] [address] Dr. Arielle Biswas LYMPH # 1.4 103/ul Normal 1.2-3.8 [facility] Comment on above: Performed By: #### E RUR #### [facility] [address] [address] [address] Arielle Biswas Lymphocytes/100 WBC (Bld) 8.7 % Critically low 20.5-60.0 [facility] Comment on above: Performed By: #### E RUR #### [facility] [address] [address] [address] Arielle Biswas MANUAL DIFF REQ NO Normal [facility] Comment on above: Performed By: #### E RUR #### [facility] [address] [address] [address] Arielle Biswas MCH (RBC) [Entitic mass] 30.5 pg Normal 25.9-34.0 [facility] Comment on above: Performed By: #### E RUR #### [facility] [address] [place] [address] Dr. Arielle Biswas MCHC (RBC) [Mass/Vol] 31.9 g/dL Normal 29.9-35.2 [facility] Comment on above: Performed By: #### E RUR #### [facility] [address] [address] [address] Arielle Biswas MCV (RBC) [Entitic vol] 95.6 fL Critically high 80.0-94.0 [facility] Comment on above: Performed By: #### E RUR #### [facility] [address] [place] [address] Dr. Arielle Biswas MONO # 1.1 103/ul Critically high 0.3-0.8 [facility] Comment on above: Performed By: #### E RUR #### [facility] [address] [address] [address] Arielle Biswas Monocytes/100 WBC (Bld) 7.1 % Normal 1.7-12.0 [facility] Comment on above: Performed By: #### E RUR #### [facility] [address] [address] [address] Arielle Biswas NEUT # 12.9 103/ul Critically high 1.4-6.5 [facility] Comment on above: Performed By: #### E RUR #### [facility] [address] [address] [address] Arielle Biswas Neutrophils/100 WBC (Bld) 82.3 % Critically high 43.0-75.0 [facility] Comment on above: Performed By: #### E RUR #### [facility] [address] [place] [address] Dr. Arielle Biswas Platelet mean volume (Bld) [Entitic vol] 9.7 fL Normal 9.5-13.5 [facility] Comment on above: Performed By: #### E RUR #### [facility] [address] [place] [address] Dr. Arielle Biswas PLT 206 103/ul Normal 150-450 [facility] Comment on above: Performed By: #### E RUR #### [facility] [address] [place] [address] Dr. Arielle Biswas RBC 4.76 106/ul Normal 4.70-6.10 [facility] Comment on above: Performed By: #### E RUR #### [facility] [address] [place] [address] Dr. Arielle Biswas WBC 15.6 103/ul Critically high 4.0-11.0 [facility] Comment on above: Performed By: #### E RUR #### [facility] [address] [place] [address] Dr. Arielle Biswas CTA CHEST WO W CONon 05--2 022 CTA CHEST WO W CON EXAM: [...] H (more content not included)... Normal [facility] SARS-CoV-2 (COVID-19) RNA ELKIN+probe Ql (Unsp spec) Not detected Normal NOT DETECTED [facility] Comment on above: Result Comment: When diagnostic testing is negative, the possibility of a false negative should be considered in the context of a patient's recent exposures and the presence of clinical signs and symptoms consistent with SARS-CoV-2. This test is not yet approved or cleared by the [place] Food and Drug Administration (FDA). This test was developed by [employer], [place], [place]. The performance characteristics of this test were validated by [facility]. The results are not intended to be used as the sole means for clinical diagnosis or patient management decisions. [facility] is authorized under Clinical Laboratory Improvement Amendments [...] for this test is supported by the [place] of Health and Human Service's declaration that [...] used). Performed By: #### E RUR #### [facility] [address] [place] [address] Dr. Arielle Biswas ER URINE PROFILEon 2 Bilirubin Ql (U) Negative Normal NEGATIVE [facility] Comment on above: Performed By: #### E RUR #### [facility] [address] [place] [address] Dr. Arielle Biswas Clarity (U) CLEAR Normal CLEAR [facility] Comment on above: Performed By: #### E RUR #### [facility] [address] [place] [address] Dr. Arielle Biswas Color (U) LT. YELLOW Normal YELLOW [facility] Comment on above: Performed By: #### E RUR #### [facility] [address] [place] [address] Dr. Arielle Biswas ERUAHD A micrscopic examina tion will be performed if indicated. Normal [facility] Comment on above: Performed By: #### E RUR #### [facility] [address] [place] [address] Dr. Arielle Biswas Glucose Ql (U) Negative Normal NEGATIVE [facility] Comment on above: Performed By: #### E RUR #### [facility] [address] [place] [address] Dr. Arielle Biswas Hemoglobin Ql (U) Negative Normal NEGATIVE [facility] Comment on above: Performed By: #### E RUR #### [facility] [address] [place] [address] Dr. Arielle Biswas Ketones Ql (U) Negative Normal NEGATIVE [facility] Comment on above: Performed By: #### E RUR #### [facility] [address] [place] [address] Dr. Arielle Biswas LEUKOCYTES Negative Normal NEGATIVE [facility] Comment on above: Performed By: #### E RUR #### [facility] [address] [place] [address] Dr. Arielle Biswas Nitrite Ql (U) Negative Normal NEGATIVE [facility] Comment on above: Performed By: #### E RUR #### [facility] [address] [place] [address] Dr. Arielle Biswas pH (U) 6.0 [pH] Normal 5-9 [facility] Comment on above: Performed By: #### E RUR #### [facility] [address] [place] [address] Dr. Arielle Biswas SPEC GRAVITY 1.005 Normal 1.005-<=1.0 25 [facility] Comment on above: Performed By: #### E RUR #### [facility] [address] [place] [address] Dr. Arielle Biswas UA PROTEIN Negative Normal NEGATIVE/ TRACE [facility] Comment on above: Performed By: #### E RUR #### [facility] [address] [place] [address] Dr. Arielle Biswas UR MICRO IND NOT INDICATED Normal [facility] Comment on above: Performed By: #### E RUR #### [facility] [address] [place] [address] Dr. Arielle Biswas Urobilinogen Qn (U) 0.2 {Fernando'U}/dL Normal 0.2 - 1. 0 [facility] Comment on above: Performed By: #### E RUR #### [facility] [address] [place] [address] Dr. Arielle Biswas LACTATE/LACTIC ACIDon 2021 Lactate [Moles/Vol] 3.0 mmol/L Critically high 0.4-1.9 [facility] Comment on above: Result Comment: repe ated Performed By: #### E RUR #### [facility] [address] [place] [address] Dr. Arielle Biswas PROF CHEM 8 (BAS METB)on Anion gap [Moles/Vol] 14.0 mmol/L Normal [facility] Comment on above: Performed By: #### B AMANDA ESTES #### [facility] [address] [place] [address] Dr. Arielle Biswas Calcium [Mass/Vol] 8.9 mg/dL Normal 8.5-10.1 [facility] Comment on above: Performed By: #### AMANDA Lindsay MP #### [facility] [address] [place] [address] Dr. Arielle Biswas Chloride [Moles/Vol] 96 mmol/L Critically low 98-107 [facility] Comment on above: Performed By: #### AMANDA Lindsay MP #### [facility] [address] [place] [address] Dr. Arielle Biswas CO2 [Moles/Vol] 26.5 mmol/L Normal 21.0-32.0 [facility] Comment on above: Performed By: #### AMANDA Lindsay MP #### [facility] [address] [place] [address] Dr. Arielle Biswas Creatinine [Mass/Vol] 1.43 mg/dL Critically high 0.70-1.30 [facility] Comment on above: Performed By: #### AMANDA Lindsay MP #### [facility] [address] [address] [address] Arielle Biswas EGFR-AF DOMINICAN 60 mL/min/1.73m2 Normal >=60 [facility] Comment on above: Performed By: #### B FRANKLYN, CMADM #### [facility] [address] [address] [address] Arielle Biswas EGFR-NON AF DOMINICAN 50 mL/min/1.73m2 Critically low >=60 [facility] Comment on above: Performed By: #### B FRANKLYN, CMADM #### [facility] [address] [address] [address] Arielle Biswas Glucose [Mass/Vol] 122 mg/dL Critically high 74-106 T [facility] Comment on above: Performed By: #### B FRANKLYN, CMADM #### [facility] [address] [place] [address] Dr. Arielle Biswas Potassium [Moles/Vol] 3.5 mmol/L Normal 3.5-5.1 [facility] Comment on above: Performed By: #### B FRANKLYN, CMADM #### [facility] [address] [place] [address] Dr. Arielle Biswas Sodium [Moles/Vol] 133 mmol/L Critically low 136-145 [facility] Comment on above: Performed By: #### B FRANKLYN, CMADM #### [facility] [address] [place] [address] Dr. Arielle Biswas Urea nitrogen [Mass/Vol] 12.0 mg/dL Normal 7.0-18.0 [facility] Comment on above: Performed By: #### B FRANKLYN, CMADM #### [facility] [address] [place] [address] Dr. Arielle Biswas Urea nitrogen/Creatinine [Mass ratio] 8.4 mg/mg Normal [facility] Comment on above: Performed By: #### B FRANKLYN, CMADM #### [facility] [address] [place] [address] Dr. Arielle Biswas PROTIMEon 07-14-2021 INR Coag (PPP) [Relative time] 0.99 {INR} Normal [facility] Comment on above: Performed By: #### P TT, PT #### [facility] [address] [address] [address] Arielle Biswas INR GUIDELINES SEE BELOW Normal [facility] Comment on above: Result Comment: YANG RED INR: 2.0 - 3.0 CONDITIONS NOT LISTED BELOW 2.5 - 3.5 FOR PROSTHETIC HEART VALVE REPLACEMENT 2.5 - 3.5 RECURRENT THROMBOSIS Performed By: #### P TT, PT #### [facility] [address] [address] [address] Arielle Biswas PT Coag (PPP) [Time] 10.7 s Normal 9.0-11.6 [facility] Comment on above: Performed By: #### P TT, PT #### [facility] [address] [place] [address] Dr. Arielle Biswas PTTon 07-14-2021 aPTT Coag (Bld) [Time] 26.6 s Normal 22.3-36.2 [facility] Comment on above: Performed By: #### P TT, PT #### [facility] [address] [place] [address] Dr. Arielle Biswas Tobacco Screening.on 022 Fall risk assessment a) No falls within the last year [facility] [place] [address] DO Work Phone: [phone] Tobacco use status [facility] b) No [facility] [place] [address] DO Work Phone: Tobacco Screening. Yes [facility] [address] DO Work Phone: Tobacco Screening.on 021 Fall risk assessment a) No falls within the last year [facility] [place] [address] DO Work Phone: Tobacco use status [facility] b) No [facility] [place] [address] DO Work Phone: Tobacco Screening.on 021 Fall risk assessment a) No falls within the last year [facility] [place] [address] DO Work Phone: Tobacco use status [facility] b) No [facility] [place] [address] DO Work Phone: Vital Signs Date Time Vital Sign Value Performing Clinician Facility 11-15-2024 09:46-0400 Body height 175.26 cm Radames Witt MD Work Phone: [facility] 11-15-2024 09:46-0400 Body mass index (BMI) [Ratio] 30.1 kg/m2 Radames Witt MD Work Phone: [facility] 11-15-2024 09:46-0400 Body weight 92.53 kg Radames Witt MD Work Phone: [facility] 11-15-2024 09:46-0400 Diastolic blood pressure 69 mm[Hg] Radames Witt MD Work Phone: [facility] 11-15-2024 09:46-0400 Heart rate 65 /min Radames Witt MD Work Phone: [facility] 11-15-2024 09:46-0400 Respiratory rate 20 /min Radames Witt MD Work Phone: [facility] 11-15-2024 09:46-0400 SaO2% (BldA) [Mass fraction] 97 % Radames Witt MD Work Phone: [facility] 11-15-2024 09:46-0400 Systolic blood pressure 124 mm[Hg] Radames Witt MD Work Phone: [facility] 11-12-2024 13:13-0400 Body height 175.[address] 11-12-2024 13:13-0400 Body mass index (BMI) [Ratio] 30.42 kg/m2 [address] 11-12-2024 13:13-0400 Body weight 93.[address] 11-12-2024 13:13-0400 Diastolic blood pressure 66 mm[Hg] [address] 11-12-2024 13:13-0400 Systolic blood pressure 106 mm[Hg] [address] 08-20-2024 14:47-0400 Body height 175.3 cm Cecilio Go MD Work Phone: [facility] 08-20-2024 14:47-0400 Body mass index (BMI) [Ratio] 30.42 kg/m2 Cecilio Go MD Work Phone: [facility] 08-20-2024 14:47-0400 Body weight 93.44 kg Cecilio Go MD Work Phone: [facility] 08-20-2024 14:47-0400 Diastolic blood pressure 60 mm[Hg] Cecilio Go MD Work Phone: [facility] 08-20-2024 14:47-0400 Heart rate 72 /min Cecilio Go MD Work Phone: [facility] 08-20-2024 14:47-0400 Systolic blood pressure 104 mm[Hg] Cecilio Go MD Work Phone: [facility] 03-29-2024 11:47-0500 Blood Pressure Location ALAN HURST [facility] 03-29-2024 11:47-0500 Diastolic blood pressure 86 mm[Hg] ALAN ZARATERY [facility] 03-29-2024 11:47-0500 Heart rate 88 /min ALAN HURST [facility] 03-29-2024 11:47-0500 Systolic blood pressure 138 mm[Hg] ALNA ZARATERY [facility] 01-08-2024 10:04-0500 Body height 175.3 cm Cecilio Go MD Work Phone: [facility] 01-08-2024 10:04-0500 Body mass index (BMI) [Ratio] 30.72 kg/m2 Cecilio Go MD Work Phone: [facility] 01-08-2024 10:04-0500 Body weight 94.35 kg Cecilio Go MD Work Phone: [facility] 01-08-2024 10:04-0500 Diastolic blood pressure 82 mm[Hg] Cecilio Go MD Work Phone: [facility] 01-08-2024 10:04-0500 Heart rate 60 /min Cecilio Go MD Work Phone: [facility] 01-08-2024 10:04-0500 Systolic blood pressure 120 mm[Hg] Cecilio Go MD Work Phone: [facility] 11-17-2023 10:20-0400 Body height 175.26 cm MD Radames Witt Work Phone: [facility] 11-17-2023 10:20-0400 Body mass index (BMI) [Ratio] 30.4 kg/m2 MD Radames Witt Work Phone: [facility] 11-17-2023 10:20-0400 Body temperature 97.4 [degF] MD Radames Witt Work Phone: [facility] 11-17-2023 10:20-0400 Body weight 93.44 kg MD Radames Witt Work Phone: [facility] 11-17-2023 10:20-0400 Diastolic blood pressure 83 mm[Hg] MD Radames Witt Work Phone: [facility] 11-17-2023 10:20-0400 Heart rate 69 /min MD Radames Witt Work Phone: [facility] 11-17-2023 10:20-0400 Respiratory rate 20 /min MD Radames Witt Work Phone: [facility] 11-17-2023 10:20-0400 SaO2% (BldA) [Mass fraction] 95 % MD Radames Witt Work Phone: [facility] 11-17-2023 10:20-0400 Systolic blood pressure 164 mm[Hg] MD Radames Witt Work Phone: [facility] 08-21-2023 11:11-0400 Body height 175.26 cm MD Radames Witt Work Phone: [facility] 08-21-2023 11:11-0400 Body mass index (BMI) [Ratio] 29.9 kg/m2 MD Radames Witt Work Phone: [facility] 08-21-2023 11:11-0400 Body temperature 96.1 [degF] MD Radames Witt Work Phone: [facility] 08-21-2023 11:11-0400 Body weight 92.07 kg MD Radames Witt Work Phone: [facility] 08-21-2023 11:11-0400 Diastolic blood pressure 80 mm[Hg] MD Radames Witt Work Phone: [facility] 08-21-2023 11:11-0400 Heart rate 77 /min MD Radames Witt Work Phone: [facility] 08-21-2023 11:11-0400 SaO2% (BldA) [Mass fraction] 97 % MD Radames Witt Work Phone: [facility] 08-21-2023 11:11-0400 Systolic blood pressure 140 mm[Hg] MD Radames Witt Work Phone: [facility] 04-09-2023 10:04-0500 Body height 175.26 cm MD Jean Nicholson Work Phone: [facility] 04-09-2023 10:04-0500 Body mass index (BMI) [Ratio] 29.9 kg/m2 MD Jean Nicholson Work Phone: [facility] 04-09-2023 10:04-0500 Body temperature 96.7 [degF] MD Jean Nicholson Work Phone: [facility] 04-09-2023 10:04-0500 Body weight 92.07 kg MD Jean Nicholson Work Phone: [facility] 04-09-2023 10:04-0500 Diastolic blood pressure 93 mm[Hg] MD Jean Nicholson Work Phone: [facility] 04-09-2023 10:04-0500 Heart rate 98 /min MD Jean Nicholson Work Phone: [facility] 04-09-2023 10:04-0500 Respiratory rate 20 /min MD Jean Nicholson Work Phone: [facility] 04-09-2023 10:04-0500 SaO2% (BldA) [Mass fraction] 100 % MD Jean Nicholson Work Phone: [facility] 04-09-2023 10:04-0500 Systolic blood pressure 152 mm[Hg] MD Jean Nicholson Work Phone: [facility] 12-23-2022 10:50-0400 Blood Pressure Location Marino SPEAR [facility] 12-23-2022 10:50-0400 Diastolic blood pressure 62 mm[Hg] Marino SPEAR [facility] 12-23-2022 10:50-0400 Heart rate 69 /min Marino SPEAR [facility] 12-23-2022 10:50-0400 Respiratory rate 16 /min Marino SPERA [facility] 12-23-2022 10:50-0400 Systolic blood pressure 95 mm[Hg] Marino SPEAR [facility] 11-07-2022 10:56-0400 Body temperature 98.6 [degF] Radames Hoy Other Phone: [facility] 11-07-2022 10:56-0400 Diastolic blood pressure 69 mm[Hg] Radames Hoy Other Phone: [facility] 11-07-2022 10:56-0400 Heart rate 97 /min Radames Hoy Other Phone: [facility] 11-07-2022 10:56-0400 Respiratory rate 16 /min Radames Hoy Other Phone: [facility] 11-07-2022 10:56-0400 SaO2% (BldA) [Mass fraction] 96 % Radames Hoy Other Phone: [facility] 11-07-2022 10:56-0400 Systolic blood pressure 113 mm[Hg] Radames Hoy Other Phone: [facility] 10-30-2022 10:00-0400 Body height 175.26 cm Danna Violeta Other [facility] [employer] Other 10-30-2022 10:00-0400 Body mass index (BMI) [Ratio] 30.27 kg/m2 Danna Violeta Other [employer] Other 10-30-2022 10:00-0400 Body temperature 97 [degF] Danna Violeta Other [employer] Other 10-30-2022 10:00-0400 Body weight 92.99 kg Danna Violeta Other [employer] Other 10-30-2022 10:00-0400 Diastolic blood pressure 75 mm[Hg] Danna Violeta Other [employer] Other 10-30-2022 10:00-0400 Respiratory rate 20 /min Danna Violeta Other [employer] Other 10-30-2022 10:00-0400 SaO2% (BldA) [Mass fraction] 96 % Danna Violeta Other [employer] Other 10-30-2022 10:00-0400 Systolic blood pressure 116 mm[Hg] Danna Violeta Other [employer] Other 08-23-2022 12:57-0400 Body height 175.26 cm Radames Seeq Hoy Work Phone: [facility] [place] Work Phone: 08-23-2022 12:57-0400 Body mass index (BMI) [Ratio] 30.57 kg/m2 Radames M Hoy Work Phone: [facility] [place] Work Phone: 08-23-2022 12:57-0400 Body surface area Derived from formula 2.1 m2 Radames Seeq Hoy Work Phone: [facility] [place] Work Phone: 08-23-2022 12:57-0400 Body weight 93.9 kg Radames Preeti Hoy Work Phone: [facility] [place] Work Phone: 08-20-2022 11:30-0400 Body height 175.26 cm Danna Violeta Other [employer] Other 08-20-2022 11:30-0400 Body mass index (BMI) [Ratio] 30.42 kg/m2 Danna Violeta Other [employer] Other 08-20-2022 11:30-0400 Body temperature 96.8 [degF] Danna Violeta Other [employer] Other 08-20-2022 11:30-0400 Body weight 93.44 kg Danna Violeta Other [employer] Other 08-20-2022 11:30-0400 Diastolic blood pressure 80 mm[Hg] Danna Violeta Other [employer] Other 08-20-2022 11:30-0400 Respiratory rate 20 /min Danna Violeta Other [employer] Other 08-20-2022 11:30-0400 SaO2% (BldA) [Mass fraction] 97 % Danna Violeta Other [employer] Other 08-20-2022 11:30-0400 Systolic blood pressure 142 mm[Hg] Danna Violeta Other [employer] Other 08-15-2022 09:30-0400 Body height 175.26 cm Bianka Garcia Other [employer] Other 08-15-2022 09:30-0400 Body mass index (BMI) [Ratio] 30.57 kg/m2 Bianka Garcia Other [employer] Other 08-15-2022 09:30-0400 Body temperature 96.7 [degF] Bianka Garcia Other [employer] Other 08-15-2022 09:30-0400 Body weight 93.9 kg Bianka Garcia Other [employer] Other 08-15-2022 09:30-0400 Diastolic blood pressure 70 mm[Hg] Bianka Garcia Other [employer] Other 08-15-2022 09:30-0400 SaO2% (BldA) [Mass fraction] 98 % Bianka Garcia Other [employer] Other 08-15-2022 09:30-0400 Systolic blood pressure 118 mm[Hg] Bianka Garcia Other [employer] Other 06-04-2022 11:33-0400 Body height 175.26 cm Radames Seeq Hoy Work Phone: [facility] [facility] DO Work Phone: 06-04-2022 11:33-0400 Body mass index (BMI) [Ratio] 30.13 kg/m2 Radames M Hoy Work Phone: [facility] 250 DO Work Phone: 06-04-2022 11:33-0400 Body surface area Derived from formula 2.08 m2 Radames M Hoy Work Phone: [facility] 250 DO Work Phone: 06-04-2022 11:33-0400 Body weight 92.53 kg Radames M Hoy Work Phone: [facility] [facility] DO Work Phone: 06-04-2022 11:33-0400 Diastolic blood pressure 72 mm[Hg] Radames M Hoy Work Phone: [facility] [facility] DO Work Phone: 06-04-2022 11:33-0400 Heart rate 68 /min Radames M Hoy Work Phone: [facility] [facility] DO Work Phone: 06-04-2022 11:33-0400 Systolic blood pressure 110 mm[Hg] Radames M Hoy Work Phone: [facility] [employer] [facility] DO Work Phone: 02-05-2022 15:30-0500 Body height 175.26 cm Danna Violeta Other [employer] Other 02-05-2022 15:30-0500 Body mass index (BMI) [Ratio] 29.97 kg/m2 Danna Violeta Other [employer] Other 02-05-2022 15:30-0500 Body temperature 98.4 [degF] Danna Violeta Other [employer] Other 02-05-2022 15:30-0500 Body weight 92.08 kg Danna Violeta Other [employer] Other 02-05-2022 15:30-0500 Diastolic blood pressure 83 mm[Hg] Danna Violeta Other [employer] Other 02-05-2022 15:30-0500 Respiratory rate 20 /min Danna Violeta Other [employer] Other 02-05-2022 15:30-0500 SaO2% (BldA) [Mass fraction] 96 % Danna Violeta Other [employer] Other 02-05-2022 15:30-0500 Systolic blood pressure 143 mm[Hg] Danna Violeta Other [employer] Other 12-11-2021 11:39-0400 Body height 175.26 cm Jean Mejiaerer Work Phone: [facility] [employer] [facility] DO Work Phone: 12-11-2021 11:39-0400 Body mass index (BMI) [Ratio] 30.72 kg/m2 Jean Saeed Naderer Work Phone: [facility] [facility] DO Work Phone: 12-11-2021 11:39-0400 Body surface area Derived from formula 2.1 m2 Jean Saeed Naderer Work Phone: [facility] 250 DO Work Phone: 12-11-2021 11:39-0400 Body weight 94.35 kg Jean Saeed Naderer Work Phone: [facility] [place] 250 DO Work Phone: 12-11-2021 11:39-0400 Diastolic blood pressure 72 mm[Hg] Jean Saeed Naderer Work Phone: [facility] [facility] DO Work Phone: 12-11-2021 11:39-0400 Heart rate 72 /min Jean Saeed Naderer Work Phone: [facility] [facility] DO Work Phone: 12-11-2021 11:39-0400 Systolic blood pressure 124 mm[Hg] Jean Saeed Naderer Work Phone: [facility] [employer] 250 DO Work Phone: 08-21-2021 15:00-0400 Body height 175.26 cm Danna Violeta Other [facility] [employer] Other 08-21-2021 15:00-0400 Body mass index (BMI) [Ratio] 28.35 kg/m2 Danna Violeta Other [employer] Other 08-21-2021 15:00-0400 Body temperature 97.5 [degF] Danna Violeta Other [employer] Other 08-21-2021 15:00-0400 Body weight 87.09 kg Danna Violeta Other [employer] Other 08-21-2021 15:00-0400 Diastolic blood pressure 70 mm[Hg] Danna Violeta Other [employer] Other 08-21-2021 15:00-0400 Respiratory rate 20 /min Danna Violeta Other [employer] Other 08-21-2021 15:00-0400 SaO2% (BldA) [Mass fraction] 94 % Danna Violeta Other [employer] Other 08-21-2021 15:00-0400 Systolic blood pressure 110 mm[Hg] Danna Violeta Other [employer] Other 08-15-2021 11:30-0400 Body height 175.26 cm Julian Matthews Other [employer] Other 08-15-2021 11:30-0400 Body mass index (BMI) [Ratio] 28.06 kg/m2 Julian Matthews Other [employer] Other 08-15-2021 11:30-0400 Body temperature 97.5 [degF] Julian Matthews Other [employer] Other 08-15-2021 11:30-0400 Body weight 86.18 kg Julian Matthews Other [employer] Other 08-15-2021 11:30-0400 Diastolic blood pressure 68 mm[Hg] Julian Matthews Other [employer] Other 08-15-2021 11:30-0400 SaO2% (BldA) [Mass fraction] 98 % Julian Matthews Other [employer] Other 08-15-2021 11:30-0400 Systolic blood pressure 102 mm[Hg] Julian Gutierrezradha Other [employer] Other 08-02-2021 08:32-0400 Body height 175.26 cm Jean Saeed Naderer Work Phone: [facility] [place] [facility] DO Work Phone: 08-02-2021 08:32-0400 Body mass index (BMI) [Ratio] 28.8 kg/m2 Jean Christophe Naderer Work Phone: [facility] [place] [facility] DO Work Phone: 08-02-2021 08:32-0400 Body surface area Derived from formula 2.04 m2 Jean Saeed Naderer Work Phone: [facility] [place] 250 DO Work Phone: 08-02-2021 08:32-0400 Body weight 88.45 kg Jean Saeed Naderer Work Phone: [facility] [facility] DO Work Phone: 08-02-2021 08:32-0400 Diastolic blood pressure 62 mm[Hg] Jean Christophe Naderer Work Phone: [facility] [facility] DO Work Phone: 08-02-2021 08:32-0400 Heart rate 68 /min Jean Saeed Naderer Work Phone: [facility] [facility] DO Work Phone: 08-02-2021 08:32-0400 Systolic blood pressure 108 mm[Hg] Jean Saeed Naderer Work Phone: [facility] [facility] DO Work Phone: 07-14-2021 00:00-0400 60 1 Jean Saeed Naderer Work Phone: [facility] [facility] DO Work Phone: Comment on above: [id number] 04-30-2021 13:22-0500 Body height 175.26 cm Jean Saeed Naderer Work Phone: [facility] [facility] DO Work Phone: 04-30-2021 13:22-0500 Body mass index (BMI) [Ratio] 29.45 kg/m2 Jean Saeed Naderer Work Phone: [facility] 250 DO Work Phone: 04-30-2021 13:22-0500 Body surface area Derived from formula 2.06 m2 Jean Saeed Naderer Work Phone: [facility] 250 DO Work Phone: 04-30-2021 13:22-0500 Body weight 90.45 kg Jean Saeed Naderer Work Phone: [facility] [facility] DO Work Phone: 04-30-2021 13:22-0500 Diastolic blood pressure 90 mm[Hg] Jean Saeed Naderer Work Phone: [facility] [facility] DO Work Phone: 04-30-2021 13:22-0500 Heart rate 69 /min Jean Saeed Naderer Work Phone: [facility] 250 DO Work Phone: 04-30-2021 13:22-0500 Systolic blood pressure 134 mm[Hg] Jean Saeed Naderer Work Phone: [facility] [facility] DO Work Phone: 02-20-2021 14:06-0500 Body height 175.26 cm Jean A Naderer Work Phone: [facility] [facility] DO Work Phone: 02-20-2021 14:06-0500 Body mass index (BMI) [Ratio] 29.98 kg/m2 Jean A Naderer Work Phone: [facility] [facility] DO Work Phone: 02-20-2021 14:06-0500 Body surface area Derived from formula 2.08 m2 Jean A Naderer Work Phone: [facility] [facility] DO Work Phone: 02-20-2021 14:06-0500 Body weight 92.08 kg Jean A Naderer Work Phone: [facility] [facility] DO Work Phone: 02-20-2021 14:06-0500 Diastolic blood pressure 76 mm[Hg] Jean A Naderer Work Phone: [facility] [facility] DO Work Phone: 02-20-2021 14:06-0500 Heart rate 80 /min Jean Christophe Naderer Work Phone: [facility] [facility] DO Work Phone: 02-20-2021 14:06-0500 Systolic blood pressure 110 mm[Hg] Jean A Naderer Work Phone: [facility] [facility] DO Work Phone: 02-06-2021 16:10-0500 Diastolic blood pressure 84 mm[Hg] Jean A Naderer Work Phone: [facility] [facility] DO Work Phone: 02-06-2021 16:10-0500 Systolic blood pressure 130 mm[Hg] Jean A Naderer Work Phone: [facility] 250 DO Work Phone: 02-06-2021 15:37-0500 Body height 175.26 cm Jean A Naderer Work Phone: [facility] 250 DO Work Phone: 02-06-2021 15:37-0500 Body mass index (BMI) [Ratio] 30.13 kg/m2 Jean A Naderer Work Phone: [facility] [facility] DO Work Phone: 02-06-2021 15:37-0500 Body surface area Derived from formula 2.08 m2 Jean A Naderer Work Phone: [facility] [facility] DO Work Phone: 02-06-2021 15:37-0500 Body weight 92.53 kg Jean A Naderer Work Phone: [facility] [facility] DO Work Phone: 02-06-2021 15:37-0500 Diastolic blood pressure 90 mm[Hg] Jean A Naderer Work Phone: [facility] [facility] DO Work Phone: 02-06-2021 15:37-0500 Heart rate 125 /min Jean A Naderer Work Phone: [facility] [employer] [facility] DO Work Phone: 02-06-2021 15:37-0500 Systolic blood pressure 128 mm[Hg] Jean A Naderer Work Phone: [facility] [facility] DO Work Phone: 11-30-2020 11:30-0400 Body height 175.26 cm Danna Mcdaniel Other [employer] Other 11-30-2020 11:30-0400 Body mass index (BMI) [Ratio] 29.68 kg/m2 Danna Violeta Other [employer] Other 11-30-2020 11:30-0400 Body weight 91.17 kg Danna Violeta Other [employer] Other 11-30-2020 11:30-0400 Diastolic blood pressure 83 mm[Hg] Danna Violeta Other [employer] Other 11-30-2020 11:30-0400 Respiratory rate 20 /min Danna Violeta Other [employer] Other 11-30-2020 11:30-0400 SaO2% (BldA) [Mass fraction] 98 % Danna Violeta Other [employer] Other 11-30-2020 11:30-0400 Systolic blood pressure 126 mm[Hg] Danna Violeta Other [employer] Other Encounters Encounter Date Encounter Type Care Provider Facility Start: 03-31-2025 ambulatory ALAN E NATALI Facili ty:[facility] Start: 03-24-2025 ambulatory ALAN E NATALI Facili ty:[facility] Start: 11-15-2024 End: 11-15-2024 ambulatory Radames Witt MD Work Phone: [facility] Work Phone: Start: 11-15-2024 End: 11-15-2024 Patient encounter procedure Danna Mckay APRN [facility] Pulmonary Work Phone: Start: 11-12-2024 End: 11-12-2024 Subsequent hospital visit by physician Serene Agrawal Echo/Vasc Room 3 [facility] Comment on above: Essential hypertensi on; Mitral valve insufficiency, unspecified etiology Start: 11-12-2024 End: 11-12-2024 ambulatory [facility] Start: 10-07-2024 End: 10-07-2024 Subsequent hospital visit by physician Serene Agrawal Echo/Vasc Room 2 [facility] Comment on above: Abdominal aortic ane urysm (AAA) without rupture, unspecified part; Infrarenal abdominal aortic aneurysm (AAA) without rupture Start: 10-07-2024 End: 10-07-2024 ambulatory [facility] Start: 08-20-2024 End: 08-20-2024 Office outpatient visit 25 minutes Cecilio Go MD Work Phone: [facility] Comment on above: Bilateral pulmonary [...] without rupture Start: 08-20-2024 End: 08-20-2024 ambulatory [facility] Start: 05-24-2024 End: 05-24-2024 ambulatory Maribell Leigh MD Facility: [facility] Start: 05-03-2024 End: 05-03-2024 ambulatory Maribell Leigh MD Facility: [facility] Start: 04-19-2024 End: 04-19-2024 ambulatory Maribell Leigh MD Facility:[facility] Start: 03-29-2024 End: 03-29-2024 ambulatory ALAN HURST Facility: [facility] Start: 03-29-2024 End: 03-29-2024 Patient encounter procedure ALAN HURST [facility] Start: 03-22-2024 End: 03-22-2024 ambulatory Marino SPEAR Facility:[facility] Start: 03-22-2024 End: 03-22-2024 Lab Drop off Marino SPEAR [facility] Start: 03-22-2024 End: 03-22-2024 ambulatory Marino SPEAR Facility:[facility] [place] Start: 03-22-2024 End: 03-22-2024 Patient encounter procedure Marino SPEAR [facility] Start: 01-08-2024 End: 01-08-2024 Office outpatient visit 25 minutes Cecilio Go MD Work Phone: [facility] Comment on above: Essential hypertensi on; Mitral valve insufficiency, unspecified etiology; Pulmonary fibrosis (Multi); Pulmonary embolism, unspecified chronicity, unspecified pulmonary embolism type, unspecified whether acute cor pulmonale present (Multi); Mixed hyperlipidemia; Abdominal aortic aneurysm (AAA) without rupture, unspecified part ([facility]); Lung crackles; Class 1 obesity due to excess calories without serious comorbidity with body mass index (BMI) of 30.0 to 30.9 in adult Start: 01-08-2024 End: 01-08-2024 ambulatory [facility] Start: 12-26-2023 ambulatory Marino SPEAR Facili ty:[facility] [place] Start: 11-17-2023 End: 11-17-2023 ambulatory MD Radames Witt Work Phone: [facility] Work Phone: Start: 11-17-2023 End: 11-17-2023 Patient encounter procedure MD Radames Witt Work Phone: [facility] Work Phone: Start: 11-11-2023 End: 11-11-2023 Office outpatient visit 15 minutes Curtis Meléndez MD Work Phone: [facility] Comment on above: Lumbar pain (Primary Dx) Start: 11-11-2023 End: 11-11-2023 Subsequent hospital visit by physician Serene Shetty X-Ray 2 [facility] Comment on above: Lumbar pain Start: 09-22-2023 End: 09-22-2023 ambulatory Maribell Leigh MD Facility:[facility] Start: 08-21-2023 End: 08-21-2023 ambulatory MD Radames Witt Work Phone: [facility] Work Phone: Start: 08-21-2023 End: 08-21-2023 Patient encounter procedure MD Radames Witt Work Phone: [facility] Work Phone: [...] encounter procedure MD Jean Nicholson Work Phone: [facility] [place] Work Phone: Start: 04-14-2023 End: 04-14-2023 ambulatory MD Jean Nicholson Work Phone: [facility] Work Phone: Start: 04-09-2023 End: 04-09-2023 ambulatory MD Jean Nichoslon Work Phone: [facility] Work Phone: Start: 04-09-2023 End: 04-09-2023 Patient encounter procedure MD Jean Nicholson Work Phone: [facility] Work Phone: Start: 03-04-2023 End: 03-04-2023 Patient encounter procedure MD Jean Nicholson Work Phone: [facility] Work Phone: Start: 03-04-2023 End: 03-04-2023 ambulatory MD Jean Nicholson Work Phone: [facility] Work Phone: Start: 02-28-2023 End: 02-28-2023 Office outpatient visit 15 minutes Curtis Meléndez MD Work Phone: [facility] Comment on above: Low back pain, unspe cified back pain laterality, unspecified chronicity, unspecified whether sciatica present (Primary Dx) Start: 12-23-2022 End: 12-23-2022 Patient encounter procedure Marino SPEAR [facility] Start: 11-19-2022 Patient encounter procedure Radames Witt Work Phone: [facility] Work Phone: Start: 11-19-[address] Curtis Meléndez Facility:[id number] Start: 11-04-2022 End: 11-07-2022 Evaluation and management of inpatient Curtis Ángela [place] [facility] [id number] Start: 10-30-2022 End: 10-30-2022 ambulatory Danna Violeta Other [employer] Other Start: 10-30-2022 Office outpatient vi sit 25 minutes Danna Violeta [facility] Start: 10-22-2022 Patient encounter procedure Radames Witt Work Phone: [facility] Work Phone: Start: 08-29-[address] Curtis Meléndez Facility:[id number] Start: 10-22-2022 Encounter for other preprocedural examination Dr. Curtis Meléndez [facility] Start: 10-21-[address] Radames Witt Facility:[id number] Start: 10-21-2022 Encounter for preprocedural cardiovascular examination Dr. Curtis Meléndez [facility] Start: 10-21-2022 Encounter for preprocedural laboratory examination Dr. Curtis Meléndez [facility] Start: 09-19-2022 Patient encounter procedure Radames Witt Work Phone: [facility] Work Phone: Start: 09-19-[address] Radames Witt Facility:[id number] Start: 08-23-2022 Chart Update Radames Witt Work Phone: [facility] Work Phone: Start: 08-23-2022 Patient encounter procedure Radames Witt Work Phone: [facility] Work Phone: Start: 08-23-[address] Radames Witt Facility:[id number] Start: 08-20-2022 End: 08-20-2022 ambulatory Danna Violeta Other [facility] [employer] Other Start: 08-20-2022 Office outpatient vi sit 25 minutes Danna Violeta [facility] Start: 08-15-2022 End: 08-15-2022 Patient encounter procedure Bianka Garcia [facility] Start: 08-15-2022 End: 08-15-2022 ambulatory MD Jean Nicholson Work Phone: [employer] Other Start: 07-31-2022 Chart Update Radames Witt Work Phone: [facility] 250 DO Work Phone: Start: 07-31-[address] Cecilio Go Facility:[id number] Start: 07-02-2022 End: 07-03-[address] IRAIS LORENZANA Facility:[facility]1 Start: 06-05-2022 AUDIT Radames Witt Work Phone: [facility] Work Phone: Start: 06-04-2022 Patient encounter procedure Radames Álvarez Miryam Work Phone: [facility] 250 DO Work Phone: Start: 06-04-[address] Radames Witt Facility: Start: 05-09-2022 End: 05-10-2022 ambulatory LAUREN BAUMANN . Facility:[facility]1 Start: 04-19-2022 Rx Renewal Jean Nicholson Work Phone: [facility] 250 DO Work Phone: Start: 02-18-2022 End: 02-19-[address] BRITANY TSANG Facility:[facility]1 Start: 02-07-2022 End: 02-08-2022 ambulatory LAUREN BAUMANN . Facility:[facility] Start: 02-05-2022 End: 02-05-2022 ambulatory Danna Mcdaniel Other [facility] [employer] Other Start: 02-05-2022 Office outpatient vi sit 25 minutes Danna Mcdaniel [facility] Start: 12-20-2021 End: 12-21-[address] MARINO SPEAR . Facility:[facility]1 Start: 12-11-2021 Office outpatient vi sit 25 minutes Jean Nicholson Work Phone: [facility] 250 DO Work Phone: Start: 12-11-[address] Jean Nicholson Facility: Start: 11-27-2021 End: 11-28-[address] LORENA ANDERSON . Facility:[facility]1 Start: 11-27-2021 Rx Renewal Jean Nicholson Work Phone: [facility] 250 DO Work Phone: Start: 11-05-2021 End: 11-06-[address] BRITANY TSANG Facility:[facility]1 Start: 10-17-2021 End: 10-18-[address] RADAMES WITT . Facility:[facility]1 Start: 10-12-2021 Rx Renewal Jean Nicholson Work Phone: [facility] 250 DO Work Phone: Start: 10-09-2021 End: 10-10-2021 ambulatory KATHERINE MARTINEZ Facility:[facility]1 Start: 08-30-2021 End: 08-31-2021 ambulatory LAUREN BAUMANN . Facility:[facility]1 Start: 08-21-2021 End: 08-21-2021 ambulatory Danna Violeta Other [employer] Other Start: 08-21-2021 Office outpatient vi sit 25 minutes Danna Violeta [facility] Start: 08-16-2021 End: 08-16-2021 ambulatory Bianka Garcia Other [employer] Other Start: 08-16-2021 Telephone encounter Bianka Lira [facility] Start: 08-15-2021 End: 08-15-2021 ambulatory Julian Matthews Other [employer] Other Start: 08-15-2021 Office outpatient vi sit 25 minutes Julian Matthews [facility] Start: 08-02-2021 Office outpatient vi sit 25 minutes Jean Harrisr Work Phone: [facility] 250 DO Work Phone: Start: 07-20-2021 End: 07-20-2021 ambulatory Bianka Garcia Other [employer] Other Start: 07-20-2021 Telephone encounter Bianka Lira [facility] Start: 07-14-2021 End: 07-14-2021 ambulatory CYNDI SIBLEY Facility:[facility]1 Start: 04-30-2021 Office outpatient vi sit 25 minutes Jean Nicholson Work Phone: [facility] 250 DO Work Phone: Start: 03-26-2021 Rx Renewal Jean Nicholson [facility] DO Work Phone: Start: 02-20-2021 Patient encounter procedure Jean Nicholson Work Phone: [facility] 250 DO Work Phone: Start: 11-30-2020 Office outpatient vi sit 25 minutes Danna Violeta [facility] Procedures Date Procedure Procedure Detail Performing Clinician Start: 11-12-2024 Echo tthrc r-t 2d w/wom-mode compl spec&colr d Cecilio Go MD Work Phone: Start: 10-07-2024 Dup-scan aorta ivc i liac [...] above: Performed By: #### P SAD #### [facility] [address] [place] [address] Dr. Arielle Biswas Start: 07-14-2021 Operation for pulmon brian embolism Marino SPEAR Start: 03-21-2016 Radical prostatectomy P atrick SPEAR Start: 01-15-2016 Cystoscopy Marino BECKY BATISTA Start: 01-15-2016 Transrectal biopsy o f prostate using ultrasound guidance Marino SPEAR Colonoscopy Jean Saeed Naderer Work Phone: Comment on above: Feb 2017; Colonoscopy Marino SPEAR Extraction of cataract Maguikee bobo RAINER Operation on lung Jean A Nad erer [...] (3 of 3 - PCV20 or PCV21) [facility] Start: 11-07-2025 Diabetes mellitus screening Diabetes Screening [facility] Start: 04-01-2025 End: 04-01-2025 Patient encounter procedure 04/01/2025 2:50 PM EST Office Visit [facility] [address] [facility] [address] [place] [address] Cecilio Go MD [address] [facility], [place] [address] [place] [address] [facility] Start: 02-19-2025 End: 08-20-2026 US Heart Transthoracic Transthoracic Echo Complete Echocardiography Routine Essential hypertension Mitral valve insufficiency, unspecified etiology Expected: 02/19/2025 (Approximate), Expires: 08/20/2026 [facility] Service Area Work Phone: Comment on above: Expected: 02/19/2025 (Approximate), Expires: 08/20/2026 Start: 02-19-2025 End: 08-20-2026 US.doppler Aorta and Iliac artery - bilateral Vascular US Aorta Iliac Duplex Complete Vascular Ultrasound Routine Abdominal aortic aneurysm (AAA) without rupture, unspecified part Infrarenal abdominal aortic aneurysm (AAA) without rupture Expected: 02/19/2025 (Approximate), Expires: 08/20/2026 [facility] Work Phone: Comment on above: Expected: 02/19/2025 (Approximate), Expires: 08/20/2026 Start: 01-03-2025 Pneumococcal Vaccine : 65+ Years (3 - PPSV23 or PCV20) Pneumococcal Vaccine: 65+ Years (3 - PPSV23 or PCV20) [facility] Start: 01-03-2025 Pneumococcal Vaccine : 65+ Years (3 of 3 - PPSV23 or PCV20) Pneumococcal Vaccine: 65+ Years (3 of 3 - PPSV23 or PCV20) [facility] Start: 11-03-2024 End: 11-03-2024 Patient encounter procedure 11/03/2024 12:30 PM EDT Appointment [address] [phone] [facility] Start: 10-25-2024 COVID-19 Vaccine ( season) COVID-19 Vaccine ( season) [facility] Start: 10-25-2024 Influenza vaccination Influenza Vacc ine (#1) [facility] Start: 10-07-2024 End: 10-07-2024 Patient encounter procedure 10/07/2024 7:45 AM EDT Appointment [address] [phone] [facility] Start: 08-20-2024 End: 08-20-2024 Patient encounter procedure 08/20/2024 2:30 PM EDT Office Visit [address] [place] [place] [phone] Cecilio Go MD [address] [facility], [place] [address] [place] [address] [facility] Start: 01-08-2024 End: 01-08-2024 Patient encounter procedure 01/08/2024 10:10 AM EST Office Visit [place] [address] [address] [place] [address] Cecilio Go MD [address] [facility] [address], [facility] 250 [place] [address] [facility] Start: 12-05-2023 End: 12-05-2023 Patient encounter procedure 12/05/2023 1:30 PM EDT Office Visit [facility] [address] [phone] Curtis Meléndez MD [address] [facility], [address] [place] [phone] [facility] Start: 10-26-2023 COVID-19 Vaccine ( season) COVID-19 Vaccine ( season) [facility] Start: 10-26-2023 COVID-19 Vaccine ( season) COVID-19 Vaccine ( season) [facility] Start: 10-26-2023 Influenza vaccination Influenza Vacc ine (#1) [facility] Start: 06-17-2023 End: 06-17-2023 Patient encounter procedure 06/17/2023 10:20 AM EDT Office Visit [facility] [address] [place] [address] Cecilio Go MD [facility] 250 [place] [address] [facility] Start: 04-14-2023 CT Chest WO contrast [facility] Start: 04-14-2023 CT of chest without contrast CT chest wo con high res [facility] Start: 02-28-2023 End: 02-29-2024 XR Lumbar spine 2 or 3 Views [facility] Service Area Work Phone: Comment on above: Expected: 02/28/2023 , Expires: 02/29/2024 Start: 12-10-2022 FUV, Provider: Cecilio Go, Status: Pen, Time: 11:10 AM FUV, Provider: Cecilio Go, Status: Pen, Time: 11:10 AM [facility] 250 DO Work Phone: Start: 12-09-2022 FUV, Provider: Cecilio Go, Status: Pen, Time: 3:00 PM FUV, Provider: Cecilio Go, Status: Pen, Time: 3:00 PM [facility] [place] Work Phone: Start: 12-09-2022 Patient encounter procedure [facility] [place] Start: 11-19-2022 Patient encounter procedure [facility] Start: 11-19-2022 POV, Provider: Curtis Meléndez, Status: Pen, Time: 1:30 PM POV, Provider: Curtis Meléndez, Status: Pen, Time: 1:30 PM [facility] [place] Work Phone: Start: 11-05-2022 End: 11-05-[address] [facility] Start: 11-04-2022 End: 11-05-[address] [facility] Comment on above: If oral and IV [...] Curtis Meléndez, Status: Pen, Time: 7:30 AM [facility] [facility] [place] Work Phone: Start: 10-25-2022 COVID-19 Vaccine ( season) COVID-19 Vaccine ( season) [facility] Start: 10-22-2022 PREADMIT, Provider: Curtis Meléndez, Status: Pen, Time: 1:30 PM PREADMIT, Provider: Curtis Meléndez, Status: Pen, Time: 1:30 PM -[facility] [place] Work Phone: Start: 09-24-2022 FUV, Provider: Curtis Meléndez, Status: Pen, Time: 1:30 PM FUV, Provider: Curtis Meléndez, Status: Pen, Time: 1:30 PM [facility] [place] Work Phone: Start: 08-23-2022 NPV, Provider: Curtis Meléndez, Status: Pen, Time: 1:15 PM NPV, Provider: Curtis Meléndez, Status: Pen, Time: 1:15 PM -[facility] 250 DO Work Phone: Start: 08-15-2022 US scan of aorta US aorta [facility] Start: 08-15-2022 US Thoracic and abdominal aorta [facility] Start: 08-08-2022 ambulatory Ambulatory Facility:H 1 Start: 07-31-2022 AOILIVC, Provider: FRANKIE LOYAI ULTRASOUND ,[id number], Status: Pen, Time: 1:30 PM AOILIVC, Provider: FRANKIE LOYAI ULTRASOUND ,[id number], Status: Pen, Time: 1:30 PM [facility] Work Phone: Start: 06-04-2022 FUV, Provider: Cecilio Go, Status: Pen, Time: 11:30 AM FUV, Provider: Cecilio Go, Status: Pen, Time: 11:30 AM [facility] 250 DO Work Phone: Start: 02-06-2022 FUV, Provider: Cecilio Go, Status: Pen, Time: 8:50 AM FUV, Provider: Cecilio Go, Status: Pen, Time: 8:50 AM -[facility] 250 DO Work Phone: Start: 12-11-2021 FUV, Provider: Cecilio Go, Status: Pen, Time: 11:20 AM FUV, Provider: Cecilio Go, Status: Pen, Time: 11:20 AM -[facility] 250 DO Work Phone: Start: 04-30-2021 FUV, Provider: Cecilio Go, Status: Pen, Time: 1:20 PM FUV, Provider: Cecilio Go, Status: Pen, Time: 1:20 PM -[facility] 250 DO Work Phone: Start: 02-15-2021 COVID-19 Vaccine (4 - Moderna series) COVID-19 Vaccine (4 - Moderna series) [facility] Start: 2015 RSV High Risk: (Elde rly (60+) or Population) (1 - Risk 60-74 years 1-dose series) RSV High Risk: (Elderly (60+) or Population) (1 - Risk 60-74 years 1-dose series) [facility] Start: 2015 RSV patient s and/or patients aged 60+ years (1 - 1-dose 60+ series) RSV patients and/or patients aged 60+ years (1 - 1-dose 60+ series) [facility] Start: 10-18-2005 Prostate specific antigen measurement PSA Prostate Cancer Screening [facility] Start: 10-18-2005 Zoster Vaccines (1 o f 2) Zoster Vaccines (1 of 2) [facility] Start: 10-18-1977 DTaP/Tdap/Td Vaccine s (1 - Tdap) DTaP/Tdap/Td Vaccines (1 - Tdap) [facility] Start: 10-18-1973 Diabetes mellitus screening Diabetes Screening [facility] Start: 10-18-1973 Hepatitis C screening Hepatitis C Sc reedavey [facility] Start: 10-18-1956 MMR Vaccines (1 of 1 - Standard series) MMR Vaccines (1 of 1 - Standard series) [facility] Start: 1955 Lipid panel Lipid Panel [facility] Start: 1955 Medicare Annual Wellness Visit Medicare Annual Wellness Visit (AWV) [facility] Start: 1955 Screening for malign ant neoplasm of colon [facility] CT Chest WO contrast [facility] US.doppler Aorta and Iliac artery - bilateral Vascular US Aorta Iliac Duplex Complete Vascular Ultrasound Routine Abdominal aortic aneurysm (AAA) without rupture, unspecified part Infrarenal abdominal aortic aneurysm (AAA) without rupture 10/07/2024 8:11 AM EDT [facility] Service Area Work Phone: Immunizations Immunization Date Immunization Notes Care Provider Fa [facility] 12-09-2023 Influenza, Seasonal, Quadrivalent, Adjuvanted Cecilio Go MD Work Phone: [facility] 12-09-2023 influenza virus vaccine, unspecified formulation Serene 2 [facility] Work Phone: 11-06-2022 influenza, high dose seasonal, preservative-free Radames Witt Other Phone: [facility] 11-06-2022 influenza virus vaccine, unspecified formulation Curtis Meléndez MD Work Phone: [facility] Work Phone: 12-26-2021 Fluad Quadrivalent 0 .5 ML Intramuscular Prefilled Syringe Jean Nicholson Work [facility] Work Phone: 12-26-2021 influenza, seasonal, injectable Curtis Meléndez MD Work Phone: [facility] Work Phone: 12-21-2020 Pfizer-BioNTArrogene COVID-19 Vacc 30 MCG/0.3ML Intramuscular Suspension Jean Nicholson Work Phone: [facility] 12-21-2020 pneumococcal conjuga te vaccine, 13 valent Jean Nicholson Work Phone: [facility] 12-21-2020 zoster vaccine recombinant Jean Nicholson Work Phone: [place] [address] DO Work Phone: 12-21-2020 zoster vaccine, unspecified formulation Curtis Meléndez MD Work Phone: [facility] Work Phone: 12-10-2020 Fluad Quadrivalent 0 .5 ML Intramuscular Prefilled Syringe Jean Nicholson Work Phone: [place] [address] DO Work Phone: 12-10-2020 influenza, seasonal, injectable Curtis Meléndez MD Work Phone: [facility] Work Phone: 06-21-2020 COVID-19 Vaccine Moderna - Documentation Purposes Only Danna Violeta Other [facility] [employer] Other 05-09-2020 COVID-19 Vaccine Moderna - Documentation Purposes Only Danna Violeta Other [facility] [employer] Other 01-04-2020 influenza, injectabl e, quadrivalent, preservative free Jean Nicholson Work Phone: [place] [address] DO Work Phone: 01-04-2020 influenza, seasonal, injectable Curtis Meléndez MD Work Phone: [facility] Work Phone: 01-04-2020 pneumococcal polysaccharide vaccine, 23 valent Jean Nicholson Work Phone: [facility] 12-20-2019 influenza, seasonal, injectable Jean A Naderer Work Phone: [facility] 10-25-2018 influenza, injectabl e, quadrivalent, preservative free Curtis Meléndez MD Work Phone: [facility] Work Phone: 10-25-2018 influenza, seasonal, injectable Jean Nicholson Work Phone: [facility] 250 DO Work Phone: 11-24-2017 influenza virus vaccine, unspecified formulation Jean Nicholson Work Phone: [facility] 250 DO Work Phone: 02-25-2016 pneumococcal polysaccharide vaccine, 23 valent Jean Nicholson Work Phone: [facility] Payers Date Payer Category Payer Dual Eligibility Medicare/Medicaid Organization [id number] 2023 Private Health Insurance [facility] DUAL COMPLETE [facility] DUAL COMPLETE [id number] 2023-Present Cesario Arthur [address] [place] [address] [id number] .[id number] 2023 Private Health Insurance [id number] 2023 Medicare 2022 Self-pay [id number] 2022 Unknown 2020 Unknown [id number] 2.16.840.1.941873.19 2020 Medicaid [id number]. 1.13.647.2 .[id number] 2020 Medicaid [id number] 2020 Unknown [id number] 2.16.840.1.874102.19 1959 Unknown [id number] 1955 Unknown [id number] 2.16.840.1.517984.3.579.2 .593 1955 Unknown [id number] 2.16.840.1.075187.3.579.2 .593 1955 Unknown [id number] 2.16.840.1.728122.3.579.2 .593 1955 Unknown [id number] 2.16.840.1.198550.3.579.2 .593 1955 Unknown [id number] 2.16.840.1.231268.3.579.2 .593 1955 Unknown [id number] 2.16.840.1.707025.3.579.2 .593 1955 Unknown [id number] 2.16.840.1.690385.3.579.2 .593 1955 Unknown [id number] 2.16.840.1.631656.3.579.2 .593 1955 Unknown [id number] 2.16.840.1.892849.3.579.2 .593 1955 Unknown [id number] 2.16.840.1.195037.3.579.2 .593 1955 Unknown [id number] 2.16.840.1.773099.3.579.2 .593 1955 Unknown [id number] 2.16.840.1.604621.3.579.2 .593 1955 Unknown [id number] 2.16.840.1.609654.3.579.2 .356 1955 Unknown [id number] 2.16.840.1.560346.3.579.2 .356 1955 Unknown [id number] 2.16.840.1.953055.3.579.2 .8 1955 Unknown [id number] 2.16.840.1.157331.3.579.2 .1067 1955 Unknown [id number] 2.16.840.1.266077.3.579.2 .1067 1955 Unknown [id number] 2.16.840.1.047363.3.579.2 .1067 1955 Unknown [id number] 2.16.840.1.828598.3.579.2 .1067 1955 Unknown [id number] 2.16840.1.730246.3.579.2 .1067 1955 Unknown [id number] 2.16.840.1.281127.3.579.2 .1067 1955 Unknown [id number] 2.840.1.034846.3.579.2 .1955 Unknown [id number] 2.16840.1.371971.3.579.2 .1955 Unknown [id number] 2.840.1.497879.3.579.2 .1955 Unknown [id number] 2.16840.1.748735.3.579.2 .72 1955 Unknown [id number] 2.840.1.465341.3.579.2 .1955 Unknown [id number] 2.16840.1.436621.3.579.2 .1955 Unknown [id number] 2.16840.1.867662.3.579.2 .1955 Unknown [id number] 2.16840.1.525638.3.579.2 .196 1955 Unknown [id number] 2.16840.1.464708.3.579.2 .196 1955 Unknown [id number] 2.16.840.1.657005.3.579.2 .196 1955 Unknown [id number] 2.16.840.1.832182.3.579.2 .1244 1955 Unknown [id number] 2.16.840.1.601708.3.579.2 .1244 1955 Unknown [id number] 2.16.840.1.100325.3.579.2 .1246 1955 Unknown [id number] 2.16.840.1.264379.3.579.2 .1246 Medicare [id number] 2.16.840.1.401824.19 Medicare [facility] PF [id number] Medicare [id number] Unknown [id number] 2.16.840.1.708300.3.579.2 .531 Unknown [id number] 2.16.840.1.778551.3.579.2 .531 Unknown [id number] 2.16.840.1.078124.3.579.2 .531 Social History Date Type Detail Facility Start: 12-09-2022 End: 08-20-2024 Former smoker Former smoker [facility] 250 DO Work Phone: Start: 12-09-2022 End: 08-20-2024 Sex Assigned At [facility] Start: 07-14-2021 End: 12-09-2022 Tobacco smoking status NHIS Never smoked tobacco (finding) [facility] Start: 1955 Sex Assigned At Male [facility] Tobacco smoking consumption unknown [facility] Start: 12-18-2020 End: 11-11-2024 Tobacco smoking status Ex-smoker (finding) [facility] Start: 12-09-2022 Tobacco use and exposure Smokeless tobacco non-user [facility] Work Phone: Start: 12-09-2022 End: 08-20-2024 Alcohol intake Lifetime non-drinker (finding) [facility] Work Phone: Start: 1955 Sex Assigned At Not on file [facility] Work Phone: Start: 02-18-2023 End: 01-08-2024 Exposure to SARS-CoV-2 (event) Not sure [facility] Start: 01-18-2022 Sex Male [facility] Sex Male (finding) [facility] Functional Status Date Assessment Result Facility 03-29-2024 Functional Status N/A [facility] 12-23-2022 Functional Status N/A [facility] Functional observable [facility] Mental Status Date Assessment Result Facility 11-06-2022 Cognitive functions [id number]:[id number] [facility] Clinical Notes 11-30-2020 to 08-20-2024 Cecilio Go MD - 08/20/2024 2:30 PM EDTPatient InstructionsMecca Go MD - 01/08/2024 10:10 AM ESTPatient InstructionsAttaParker Meléndez MD - 11/11/2023 9:15 AM EDT Note Date & Type Note Facility 08-20-2024 History of Present illness Narrative Chief Complaint Patient presents with Follow-up 6 month Follow up for Hypertension Subjective HPI Patient is in the office for follow-up for history of pulmonary embolism treated successfully with Eliquis with no recurrences. He sees his PCP Dr. Witt in [place] on regular basis and apparently blood work [...] discussion and plan. documented in this encounter [facility] Work Phone: 08-20-2024 Instructions Annemarie Flores [...] be sent through Care Everywhere.Heart Healthy Diet (Cook Islander)documented in this encounter [facility] Work Phone: 03-29-2024 Hospital Discharge instructions [...] Follow these instructions at home: Medicines Take rcjo-rxp-wpgmwxz and prescription medicines only as told by [...] provider. Document Revised: 05/09/2021 Document Reviewed: 05/09/2021 [employer] Patient Education 2023 [employer]. Follow Up Care 03/09/2024 09:44:23 With:NATALI LEON, ALAN Abraham, URL Address: [address] [place] [address] When:Within 1 Year(s) [facility] 03-29-2024 Note Patient Education Urology Erectile [...] these instructions at home: Medicines ??? Take hzsz-fvk-akaeoby and prescription medicines only as told by [...] Do not u (more content not included)... [facility] 01-08-2024 History of Present illness Narrative [...] aortic aneurysm (AAA) without rupture, unspecified part ([facility]) 7. Lung crackles 8. Class 1 obesity [...] discussion and plan. documented in this encounter [facility] Work Phone: 01-08-2024 Instructions Annemarie Flores [...] be sent through Care Everywhere.Heart Healthy Diet (Cook Islander)documented in this encounter [facility] Work Phone: 11-11-2023 History of Present [...] split dictation. -Nicolas Kohli PA-C In a tpmw-mj-hhyh encounter, I performed a history and physical [...] MD Orthopedic surgery documented in this encounter [facility] Work Phone: 06-03-2023 History of Present [...] split dictation. -Nicolas Kohli PA-C In a zjxx-qn-mozi encounter, I performed a history and physical [...] MD Orthopedic surgery documented in this encounter [facility] Work Phone: 02-28-2023 History of Present [...] portion of this split dictation. In a glrr-se-aupr encounter, I performed a history and physical [...] the lumbar spine. documented in this encounter [facility] Work Phone: 12-23-2022 Hospital Discharge instructions [...] treatment? Where to find more information [employer]: www.cancer.org [employer]: www.auanet.org Contact a health care [...] provider. Document Revised: 08/06/2021 Document Reviewed: 08/06/2021 [employer] Patient Education 2022 [employer] Follow Up Care 12/21/2021 12:26:12 With:RAINER JIMENEZ, Marino Calabrese, URL Address: [facility] [address] , [place] [address] [phone] When: Unknown Comments:1 yr w/ PSA [facility] 11-07-2022 Note Send Summary: Discharge Summary Providers: Provider RoleProvider Name Radames Conner AttendingCurtis Meléndez Chirag PrimaryRadames Witt Note Recipients: Curtis Meléndez MD - [id number] [Preferred] Radames Witt MD - [id number] [] Cayden Flores MD Discharge: Summary: Admission Date: .04-Nov-2022 05:14:00 Discharge Date: 07-Nov-2022 Attending Physician at Discharge: Curtis Meléndez Admission Reason: Lumbar stenosis and spondylolisthesis(1) Final Discharge Diagnoses: Back pain Procedures: Date: 04-Nov-2022 13:07:00 Procedure Name: 1. 2. 3. 4. 5. Condition at Discharge: Satisfactory Disposition at Discharge: .Home Vital Signs: T PRBPMAPSpO2 [id number]% Date/Time11/07 8:5611/07 8:5611/07 8:5611/07 8:5611/06 21:0811/07 8:56 [...] please call ahead and schedule appointment Location: [address] [facility] Phone Number: [phone] Discharge Medications: Home Medication furosemide 20 mg [...] tab(s) orally once a day Potassium Chloride (Qnv-Aqgj-Npk 10) 10 mEq oral tablet, extended release [...] discharge: Full Code Electronic Signatures: Gilda Mcmahon (CONSULTING DATABASE ADMINISTRATOR-SATELLITE COMMUNICATIONS OPERATOR) (Signed 07-Nov-2022 09:26) Authored: Send Summary, Summary Content, Immunizations, Ongoing Care, DNR Status, Note Completion Last Updated: 07-Nov-2022 09:26 by Gilda Mcmahon (CONSULTING DATABASE ADMINISTRATOR-SATELLITE COMMUNICATIONS OPERATOR) References: 1. Data Referenced From [facility] 04-Nov-2022 16:29 [facility] 11-04-2022 Note Post Operative Note: Post-Procedure Diagnosis: Lumbar stenosis and spondylolisthesis Procedure: 1. 2. 3. 4. 5. Surgeon: Ángela Resident/Fellow/Other Audio Narrator: Alice Estimated Blood Loss (mL): 100 cc Specimen: no Findings: Lumbar stenosis and spondylolisthesis Operative Report Dictated: Dictation: not applicable - note contains Operative Report Note Recipients: Curtis Meléndez MD - [id number] [Preferred] Radames Witt MD - [id number] [] Operative Report: Preoperative diagnosis: L2-3 and [...] Curtis Meléndez M.D. Asst.: Sonu HillThe physician clerical dentist assistant was present through the entire case. Given the nature of the disease process and the procedure to be performed a skilled financial legal assistant was necessary during the case. The clerical dentist assistant was necessary in order to hold retractors and directly assist in the operation. A master certified rv technician was at the back table managing [...] the large dilat (more content not included)... [facility] 11-04-2022 Reason for referral (narrative) Reason for Referral: Surgery 11.04.2022 L3-4 lateral interbody fusion, L2-3 and L3-4 laminectomy and posterior lateral fusion, L3-4 lateral instrumentation, thermal ablation of median nerve to L2-3 and L3-4 [facility] 10-30-2022 Evaluation note Encounter Date Diagnosis Assessment Notes Oct, Diastolic dysfunction (ICD-10 - I51.89) Continue all recommendati on/medicatio ns per your Rayon Tester . Oct, ILD (interstitial lung disease) (ICD-10 - J84.9) Pulmonary Function Test as scheudled prior to next office appointment. [facility] Other 07-27-2023 History of Present illness NarrativeGarry [...] sweats. He has no bowel or bladder complaints.-[facility] Work Phone: 1(270) 161-663206-27-2023 Evaluation note* Encounter Date Diagnosis Assessment Notes Treatment Notes Treatment Clinical Notes Jul, Diastolic dysfunction (ICD-10 - I51.89) Jul, ILD (interstitial lung disease) (ICD-10 - J84.9) I reviewed results and images of your Chest CT completed at [facility] 10/2021 and 01/2022. There is evidence of very mild fibrosis (scarring). Continue with physcial activity as you are. [facility] Other 06-22-2023 Evaluation note* Encounter Date Diagnosis [...] agrees with plan, and denies any questions. [facility] Other 03-16-2023 NoteCONSULTATION CONSULTATION DATE: 05/09/2022 HISTORY: [...] is currently under the care of a utilization specialist. Most recent physician appointment does show that his lungs are slowly improving. He does have a Cardiology appointment on 06/13/2022, and at that time, he will discuss with the insert operator regarding possible use of sedation and holding [...] otherwise indicated. Patient agrees with this care.[id number] NoteCONSULTATION CONSULTATION DATE: 02/07/2022 HISTORY OF PRESENT [...] still being followed up with Pulmonology in [facility] and, most recently, they feel he [...] up in three months, unless otherwise indicated.[facility] [id number] Evaluation note* Encounter Date Diagnosis Assessment Notes Treatment Notes Treatment Clinical Notes Jan, Diastolic dysfunction (ICD-10 - I51.89) Jan, ILD (interstitial lung disease) (ICD-10 - J84.9) I will look at Chest CT from [place] and let you know if any further testing is needed. Jan, Dyspnea (ICD-10 - R06.00) [facility] Other 10-04-2022 NoteCONSULTATION CONSULTATION DATE: 11/27/2021 CHIEF [...] is under the care of Dr. Go, insert operator, who has suggested that the patient not hold the Eliquis for any treatment right now and, as such, we will maintain a conservative approach. IMPRESSION: As such, the patient's current working diagnosis is chronic low back pain, new diagnosis of cystic fibrosis. A recent CT of the lung was performed and the patient is under the care of [facility]. The patient is also under anticoagulation therapy. PLAN: We will refill the patient's Percocet 5/325 b.i.d. The patient will be returning in clinic as needed. The patient has had a rhizotomy, radiofrequency along the low back and, as such, is stable with regards to his low back.[facility] [id number] NoteCONSULTATION CONSULTATION DATE: 08/30/2021 This is a [...] past he had been diagnosed with an VA in addition to an aneurysm and cystic fibrosis. The patient was worked up in the emergency department and it was found that he had multiple PEs in his lungs and in his right lower leg. The patient was transferred to [facility] where the large PE was [...] and Approved by: LAUREN BAUMANN . 09/06/2021 09:46:00[facility]06-28-2022 Evaluation note* Encounter Date Diagnosis Assessment [...] physcial activity....walk 3-4x a day to start. [facility] Other 06-22-2022 Evaluation note* Encounter Date Diagnosis [...] the plan all his questions were addressed. [facility] Other 10-07-2021 Evaluation note* Encounter Date Diagnosis [...] Nov, Other Try Mylanta for acid reflux. [facility] Other Evaluation + Plan note Future Appointments Appointment Date:12/26/2023 11:00:00 AM Scheduled Provider:Marino SPEAR MD Location:[facility] Appointment Type:URO Office Visit Diagnostic Tests Pending * PSA Total 12/23/22 [facility] evaluation + Plan note Future Appointments Appointment Date:03/29/2024 11:40:00 AM Scheduled Provider:ALAN HURST PA-C Location:[facility] Appointment Type:URO Office Visit Diagnostic Tests Pending * PSA Total 03/22/24 [facility] evaluation + Plan note Future Appointments Appointment Date:03/29/2024 11:40:00 AM Scheduled Provider:ALAN HURST PA-C Location:[facility] Appointment Type:URO Office Visit [facility] evaluation + Plan note Future Appointments Appointment Date:03/24/2025 10:30:00 AM Scheduled Provider: Location:[facility] Appointment Type:URO Nurse Visit Appointment Date:03/31/2025 09:40:00 AM Scheduled Provider:ALAN HURST PA-C Location:[facility] Appointment Type:URO Office Visit Future Scheduled Tests Laboratory* PSA Total 03/29/25 [facility] evaluation noteNo InformationNoperry [facility] [employer] Other Evalucixed noteNo assessment information available [facility] Work Phone: Evaluation note* Constitutional: [...] senses, motor, response and reflexes, normal strength [facility]* Diagnosis Low back pain, unspecified back pain laterality, unspecified chronicity, unspecified whether sciatica present- Primary documented in this encounter [facility] Work Phone: Evaluation note* Diagnosis Onset Date Resolution Status Grade I diastolic dysfunction acute Pulmonary fibrosis [facility] Work Phone: Evaluation note* Diagnosis Low back pain, unspecified back pain laterality, unspecified chronicity, unspecified whether sciatica present- Primary Lumbar pain Lumbago documented in this encounter [facility] Work Phone: Evaluation note* Diagnosis Lumbar pain Lumbago documented in this encounter [facility] Work Phone: Evaluation note* Diagnosis Onset Date Resolution Status AAA (abdominal aortic aneurysm) [facility] Work Phone: Evaluation note* Diagnosis Onset Date [...] aortic aneurysm (AAA) without rupture, unspecified part ([facility]) Lung crackles Class 1 obesity due to excess calories without serious comorbidity with body mass index (BMI) of 30.0 to 30.9 in adult documented in this encounter [facility] Work Phone: Evaluation note* Diagnosis Lumbar pain Lumbago documented in this encounter [facility] Work Phone: Evaluation note* Diagnosis Lumbar pain- Primary Lumbago Lumbar pain Lumbago documented in this encounter [facility] Work Phone: Evaluation note* Diagnosis Bilateral [...] (AAA) without rupture documented in this encounter [facility] Work Phone: Evaluation note* Diagnosis Abdominal aortic aneurysm (AAA) without rupture, unspecified part Infrarenal abdominal aortic aneurysm (AAA) without rupture documented in this encounter [facility] Work Phone: Evaluation note* Diagnosis Essential hypertension Unspecified essential hypertension Mitral valve insufficiency, unspecified etiology documented in this encounter [facility] Work Phone: Evaluation note* Diagnosis Onset Date Resolution Status Admit Date Bronchiectasis acute November 15, 2024 9:51am Grade I diastolic dysfunction acute November 15, 2024 9:51am Pulmonary fibrosis acute Septem 2024 9:51am [facility] Work Phone: History general Narrative - Reported* Type Description Date Medical History COPD Medical History asthma Medical History sleep apnea (negative PSG) Medical History aaa Medical History pe Surgical History spine 2001 Surgical History neck 2003 Surgical History prostate biopsy 2017 Surgical History dental extraction Hospitalization History as above Hospitalization History pe 2021 [facility] Other History general Narrative - Reported* Type Description Date Medical History NOEL Medical History COPD Medical History asthma Medical History sleep apnea Surgical History spine 2000 Surgical History neck 2004 Surgical History prostate biopsy 2017 Hospitalization History as above [facility] Other His[facility] general Narrative - Reported* Type Description Date Medical History COPD Medical History asthma Medical History sleep apnea (negative PSG) Surgical History spine 2001 Surgical History neck 2004 Surgical History prostate biopsy 2017 Hospitalization History as above [facility] Other Hisgrdy general Narrative - Reported* Type Description Date Medical History COPD Medical History asthma Medical History sleep apnea (negative PSG) Medical History aaa Medical History pulmonary embolism Surgical History spine 2001 Surgical History neck 2004 Surgical History prostate biopsy 2017 Surgical History dental extraction Hospitalization History as above Hospitalization History pulmonary embolism [facility] 06/2021 [facility] Other Hisgbvg general Narrative - Reported* Type Description Date Medical History COPD Medical History asthma Medical History sleep apnea (negative PSG) Medical History aaa Medical History pulmonary embolism Medical History interstitial lung disease Medical History diastolic dysfunction Surgical History spine 2001 Surgical History neck 2003 Surgical History prostate biopsy 2017 Surgical History dental extraction Hospitalization History as above Hospitalization History pulmonary embolism [facility] 06/2021 [facility] Other History of Present illness NarrativeErik is [...] to the pain management center down in [place].[facility] Work Phone: Hospital course Narrative No data available for this section [facility] Hospital Discharge instructions* Activity:activity as tolerated. [...] weeks, please call ahead and schedule appointmentLocation: [address] [facility]: [phone] [facility] No data available for this section [facility] progress note No data available for this section [facility] reason for referral (narrative)No reason for referral information availableAvita Health [facility] Work Phone: Reason for visit Narrative* Imaging (Routine) - Authorized Specialty Diagnoses / Procedures Referred By Contac t Referred To Contact Cardiology Diagnoses Abdominal aortic aneurysm (AAA) without rupture, unspecified part Infrarenal abdominal aortic aneurysm (AAA) without rupture Procedures Vascular US Aorta Iliac Duplex Complete Cecilio Go MD [address] [facility], [place] [address] [place] [address] Phone: tel: fax: Referral ID Status Reason Start Date Expiration Date Visits Requested Visits Authorized [id number] Authorized Perform Procedure 08/20/2024 08/20/2025 1 1 [facility] Work Phone: Reason for visit Narrative* CV Imaging (Routine) - Authorized Specialty Diagnoses / Procedures Referred By Contac t Referred To Contact Cardiology Diagnoses Essential hypertension Mitral valve insufficiency, unspecified etiology Procedures Transthoracic Echo Complete MS ECHO TTHRC R-T 2D W/WOM-MODE COMPL SPEC&COLR D Cecilio Go MD [facility] [facility], [address] [address] Phone: tel: fax: Referral ID Status Reason Start Date Expiration Date Visits Requested Visits Authorized [id number] Authorized Perform Procedure 08/20/2024 08/20/2025 1 1 [facility] Work Phone: Chief Complaint Pt came [...] for follow-up for recent admission to [facility] with bilateral pulmonary embolism leading [...] pulmonary embolism. Recently follow-up CT scan at [facility] revealed resolution of the pulmonary emboli. Some other pathology was noted with densities requiring follow-up imaging in 3 to 6 months which has been arranged through his PCP. He is cu rrently anticoagulated with Eliquis. The patient is contemplating further dental work in December which he should be able to hold anticoagulation prior to. Recent nuclear stress test at [facility] was reviewed and shared with the patient and was normal. He is also known to have normal ejection fraction. He currently has no complaint to report physical examination was only remarkable for 8 pounds weight gain from last visit. He is now in the obesity range recent medical record from [facility] were reviewed with the patient and reviewed [...] thoracic and lumbar xrays and MRI in [place]. brought a disc.new patient. low back pain with RT sided pain to nee x 2 months. h/o sx in 1998. thoracic and lumbar xrays and MRI in [place]. brought a disc.F/U Lumbar after therapy, says [...] Bronchiectasis Grade I diastolic dysfunction Pulmonary fibrosis Chief Complaint Admit Date H yr f/u ILD November 15, 2024 9:51am Reason for Visit Admit Date Bronchiectasis November 15, 2024 9:51am Grade I diastolic dysfunction November 15, 2024 9:51am Pulmonary fibrosis November 15, 2024 9:51am Reason for Referral Specialty Diagnoses / Procedures Referred By Contac t Referred To Contact Radiology Diagnoses Lumbar pain Procedures XR lumbar spine 2-3 views Curtis Meléndez MD [address] [facility], [address] [place] [address] Referral ID Status Reason Start Date Expiration Date Visits Requested Visits Authorized [id number] Authorized Perform Procedure 06/03/2023 06/02/2024 1 1 Specialty Diagnoses / Procedures Referred By Contac t Referred To Contact Radiology Diagnoses Low back pain, unspecified back pain laterality, unspecified chronicity, unspecified whether sciatica present Procedures XR lumbar spine 2-3 views Curtis Meléndez MD [address] [facility], [address] [place] [id number] Referral ID Status Reason Start Date Expiration Date Visits Requested Visits Authorized [id number] Authorized Perform Procedure 02/28/2023 02/28/2024 1 1 [...] 2-3 views Curtis Meléndez MD [address] [facility], [address] [place] [id number] Referral ID Status Reason Start Date Expiration Date Visits Requested Visits Authorized [id number] Authorized Perform Procedure 06/03/2023 06/02/2024 1 1 Reason Comments Follow-up 6m Specialty Diagnoses / Procedures Referred By Contac t Referred To Contact Cardiology Diagnoses Essential hypertension Mitral valve insufficiency, unspecified etiology Procedures Follow Up In Cardiology Cecilio Go MD [address] [facility] 2, [address] [address] Phone: tel: fax: Referral ID Status Reason Start Date Expiration Date Visits Re quested Visits Authorized [id number] Closed 12/09/2022 06/07/2023 1 1 Referral ID Status Reason Start Date Expiration Date Visits Requested Visits Authorized [id number] Authorized Perform Procedure 11/11/2023 11/10/2024 1 1 Reason Comments Follow-up L3-4 Lateral lumbar Fusion above prior L4-5 Fusion/L2-3, L3-4 Midline Lami from 11/04/22, xrays 1 year out Specialty Diagnoses / Procedures Referred By Rona guzmán Referred To Contact Cardiology Diagnoses Essential hypertension Mitral valve insufficiency, unspecified etiology Procedures Follow Up In Cardiology Cecilio Go MD [address] [facility] 2, [address] [address] Reason Comments Follow-up 6 month Follow up fo r Hypertension Specialty Diagnoses / Procedures Referred By Rona guzmán Referred To Contact Cardiology Diagnoses Essential hypertension Procedures Follow Up In Cardiology Cecilio Go MD [address] [facility] 2, [address] [address] Phone: tel: fax: Cecilio Go MD [address] [place] [address] 2, [address] [address] Phone: tel: fax: Referral ID Status Reason Start Date Expiration Date V isits Requested Visits Authorized [id number] Pending Review 01/08/2024 01/07/2025 1 1 (unrecognized sect ion and content) No Status Records FoundNo Status Records FoundNo Status Records FoundNo Status Records FoundNo Status Records FoundNo Status Records FoundNo Status Records FoundNo Status Records FoundNo Status Records FoundNo Status Records Found INFORMATION SOURCE (unrecogn ized section and content) DATE CREATED AUTHOR 07/07/2022 [facility] DATE CREATED AUTHOR AUTHOR'S ORGANIZ ATION [facility]2022 [facility] DATE CREATED AUTHOR AUTHOR'S ORGANIZ ATION 11/29/2022 [employer] DATE CREATED AUTHOR AUTHOR'S ORGANIZ ATION 12/14/2022 [facility] DATE CREATED AUTHOR AUTHOR'S ORGANIZ ATION 08/22/2023 [facility] DATE CREATED AUTHOR AUTHOR'S ORGANIZ ATION 03/30/2024 [facility] DATE CREATED AUTHOR AUTHOR'S ORGANIZ ATION 05/30/2024 [facility] DATE CREATED AUTHOR AUTHOR'S ORGANIZ ATION 10/11/2024 [facility] DATE CREATED AUTHOR AUTHOR'S ORGANIZ ATION 11/15/2024 [facility] Care Teams (unrecognized sec tion and content) Team Status: Active Member Role Status Dates Jean Nicholson MD Primary Care Provider Active Team Status: Inactive Member Role Status Dates Jean Nicholson MD Primary Care Provider Active Bianka Garcia NP-C Attending Provider Active [employer] Relationship Specialty Start Date End Date Radames Witt MD [address] [id number] PCP - General 06/04/22 Team Status: Inactive Member Role Status Dates Jean Nicholson MD Primary Care Provider Active JESSICA Gomez Attending Provider Active Team Status: Inactive Member Role Status Dates Jean Nihcolson MD Primary Care Provider Active S tart: [...] Team Status: Inactive Member Role Status Dates JESSICA Gomez Attending Provider Active Start: April 14, 2023 End: April 14, 2023 Radames Witt MD Primary Care Provider Active Start: April 14, 2023 End: April 14, 2023 [employer] Relationship Specialty Start Date End Date Radames Witt MD [address] [place] [address] PCP - General 06/04/22 [employer] Relationship Specialty Start Date End Date Radames Witt MD [address] [place] [address] PCP - General 06/04/22 Team Status: Inactive [...] End: November 17, 2023 Danna Mcdaniel APRN [facility] Attending Provider Active Start: November 17, 2023 End: November 17, 2023 [employer] Relationship Specialty Start Date End Date Radames Witt MD [address] [place] [address] PCP - General 06/04/22 [employer] Relationship Specialty Start Date End Date Radames Witt MD [address] [place] [address] PCP - General 06/04/22 [employer] Relationship Specialty Start Date End Date Radames Witt MD [address] [facility] [address] [place] [id number] PCP - General 06/04/22 [employer] Relationship Specialty Start Date End Date Radames Witt MD [address] [facility] [place] [address] PCP - General 06/04/22 [employer] Relationship Specialty Start Date End Date Radames Witt MD [address] [facility] [place] [address] PCP - General 06/04/22 Team Status: Inactive Member Role Status Dates Radames Witt MD Primary Care Provider Active Start: November 15, 2024 End: November 15, 2024 Danna Mcdaniel APRN [facility] Attending Provider Active Start: November 15, 2024 End: November 15, 2024 Goals (unrecognized section and content) Goals may [...] BE BASED ON THE PRIMARY CLINICAL RECORDS. [facility] [employer] [facility]. provides no warranty or guarantee of the accuracy or completeness of information in this document.
[2024-12-07 12:29] LABS: Hematocrit 39.2 % (42.0-54.0); Hemoglobin 12.8 g/dL (14.0-18.0); Immature Granulocytes Abs Auto 0.02 10^3/uL (0.00-0.03); Immature Granulocytes Pct Auto 0.3 % (0.0-0.5); Lymphocytes Absolute Auto 1.0 10^3/uL (1.2-3.8); Mean Corpuscular HGB Conc 32.7 g/dL (29.9-35.2); Mean Corpuscular Hemoglobin 31.2 pg (25.9-34.0); Mean Corpuscular Volume 95.6 fL (80.0-94.0); Platelet Count 253 10^3/uL (150-450); Red Blood Count 4.10 10^6/uL (4.70-6.10); White Blood Count 7.9 10^3/uL (4.0-11.0)
[2024-12-07 13:37] LABS: Alanine Aminotransferase 22 U/L (16-63); Albumin Globulin Ratio 0.7; Albumin Level 3.1 g/dL (3.4-5.0); Alkaline Phosphatase 132 U/L (46-116); Anion Gap 9.4; Aspartate Amino Transferase 15 U/L (15-37); Blood Urea Nitrogen 22.0 mg/dL (7.0-18.0); Calcium 8.9 mg/dL (8.5-10.1); Carbon Dioxide 29.1 mmol/L (21.0-32.0); Chloride 107 mmol/L (98-107); Cholesterol 148 mg/dL (<=200); Estimated GFR (African America >60 (>=60 mL/min/1.73m^2); Estimated GFR (Non-African Ame 54 (>=60 mL/min/1.73m^2); Free T3 3.09 pg/mL (2.18-3.98); Globulin 4.4 g/dL; Glucose 100 mg/dL (74-106); HDL Cholesterol 36 mg/dL (40-60); Potassium 4.5 mmol/L (3.5-5.1); Sodium 141 mmol/L (136-145); Thyroid Stimulating Hormone 0.712 uIU/mL (0.358-3.740); Total Protein 7.5 g/dL (6.4-8.2); Triglycerides 148 mg/dL (<=150); Uric Acid 8.6 mg/dL (3.5-7.2); VLDL CHOLESTEROL 29.6 mg/dL
== END 2024-12-07 10:54 | disposition home or self-care (01) ==
PROVIDERS: PCP Family Medicine; Visit Provider Nurse Practitioner Family
DX: E78.5 Hyperlipidemia, unspecified (principal); R73.09 Other abnormal glucose; M25.50 Pain in unspecified joint; R53.83 Other fatigue; N18.2 Chronic kidney disease, stage 2 (mild); Z12.5 Encounter for screening for malignant neoplasm of prostate
CPT/HCPCS: 36415; 80053; 80061; 83036; 83525; 84436; 84443; 84481; 84550; 85025; G0103

== ENCOUNTER 2025-01-27 13:10 | Outpatient (OUT) | payer MEDICARE, SELFPAY ==
--- NOTE | 2025-01-27 13:49 | PM.CN ---
Consult Note: HPI Data of Consult Patient: known to practice within the last 3 years Requesting Physician: Mercedes Massey NP Primary Care Provider: Radames Ricks MD Consult Narrative Reason for consult: back pain Narrative: 69yom who presents for assessment. worsening low back pain. imaging reviewed, which shows multilevel degenerative changes and stenosis, as well as fusion from l4-s1. has continued in provider directed home exercise program >6 weeks, with minimal benefit. uses nortriptyline 25mg daily and baclofen 10mg hs as needed. denies adverse med side effects. low back pain 4/10 increasing to 6/10 with standing, walking, vacuuming, sitting too long, pushing, pulling, twisting. cc:: CC: Mercedes Massey NP Review of Systems ROS Musculoskeletal Reports: back pain PFSH PFSH Medical History Fixation hardware in spine ?Z96.7 - Presence of other bone and tendon implants (ICD-10) Fusion of lumbar spine ?M43.26 - Fusion of spine, lumbar region (ICD-10) Pulmonary embolism ?I26.99 - Other pulmonary embolism without acute cor pulmonale (ICD-10) Generalized weakness ?R53.1 - Weakness (ICD-10) Meds Home Medications and Allergies Home Medications ?Medication ?Instructions ?Recorded ?Confirmed ?Type acetaminophen 325 mg tablet 325 mg PO Q6H PRN pain 09/06/22 05/24/24 History (Tylenol) albuterol sulfate 90 mcg/actuation 2 puff inhalation Q4H PRN 09/06/22 05/24/24 History aerosol inhaler shortness of breath or wheezing apixaban 5 mg tablet (Eliquis) 5 mg PO Q12H 09/06/22 05/24/24 History atorvastatin 40 mg tablet 40 mg PO QDAY 09/06/22 05/24/24 History baclofen 10 mg tablet 10 mg PO QDAY 09/06/22 05/24/24 History furosemide 20 mg tablet 20 mg PO QDAY 09/06/22 05/24/24 History lisinopril 20 mg tablet 20 mg PO QDAY 09/06/22 05/24/24 History metoprolol tartrate 25 mg tablet 25 mg PO Q12H 09/06/22 05/24/24 History omeprazole 40 mg capsule,delayed 40 mg PO QDAY 09/06/22 05/24/24 History release oxybutynin chloride 10 mg 10 mg PO QDAY 09/06/22 05/24/24 History tablet,extended release 24 hr potassium chloride 10 mEq 10 meq PO QDAY 09/06/22 05/24/24 History tablet,extended release docusate sodium 100 mg capsule 100 mg PO BID 11/08/22 05/24/24 History nortriptyline 25 mg capsule 25 mg PO DAILY #30 caps 10/28/24 Rx oxycodone-acetaminophen 5 mg-325 1 tab PO DAILY PRN pain #30 tabs 10/28/24 Rx mg tablet (Percocet) Allergies Allergy/AdvReac Type Severity Reaction Status Date / Time No Known Drug Allergies Allergy Verified 05/24/24 07:04 Exam Constitutional Documenting provider has reviewed patient's vital signs: yes Common normals: no apparent distress, oriented x3 and alert General appearance: cooperative HENMT Common normals: normocephalic, hearing grossly normal bilaterally and moist oral mucous membranes Head and scalp: normocephalic Eye Common normals: PERRL Pupil: PERRL Neck & C-Spine Common normals: full ROM General: normal visual inspection Chest Common normals: inspection of chest normal Respiratory Common normals: normal respiratory effort, no retractions and no use of accessory muscles Back & Pelvis Lumbar spine/lower back: lumbar ROM normal, pain with ROM and straight leg raise negative bilaterally; no lumbar spinal tenderness Other: sensation intact BLE strength 5/5 in BLE facet loading positive Extremity Common normals: normal to inspection and full ROM Neuro Common normals: oriented x3 Sensorium/orientation: alert Motor exam: strength 5/5 throughout and no movement abnormalities noted Psych Common normals: mental status grossly normal, thought process normal, cooperative, affect normal, speech normal and activity/motor behavior normal Speech: normal speech Thought process: normal thought process Results Additional Findings Additional findings: If on a controlled substance or opioids, I have checked an [place]AR[place] report on this patient and there are no aberrancies noted in the prescribing history.??If on a controlled substance or opioid a drug screen was completed and reviewed within the last year, and if there has not been a drug screen completed we ordered one today to monitor higher risk, state monitored pain medication use. As part of providing excellent, safe, comprehensive care, the following was completed at our patient's visit: 1. A medication reconciliation and review to ensure accurate knowledge of current/active medications, including asking our patients to inform us about any [id number] medications or herbal remedies/nutritional supplements/alternative remedies. 2. A review to specifically ensure our patients have had annual screening for screening for depression, screening for tobacco use, and screening for unhealthy alcohol use. For concerning screenings had a discussion with the patient, provided patient education, and recommended follow-up with primary care provider when appropriate. If patient noted with a risk of falling, they received education on strength, gait, and balance training to prevent future risk of falling. Portions of this note may have been carried over from the previous visit and updated as appropriate. Please note this office utilizes paper charting in addition to the electronic medical record. A list of current medications, vitals, and PMH is available there as the clinical staff outside of myself do not have access to [employer] charting during the clinic day operations. As part of providing quality comprehensive care the current medications, vitals, and PMH were reviewed in the paper chart. Assessment and Plan Assessment and Plan (1) Lumbar spondylosis: Assessment and Plan: prior bilateral L2-3 L3-4 facet RFA provided at least 50% improvement in pain and functional ability (2) Chronic use of opiate for therapeutic purpose: (3) Failed back syndrome: (4) Lumbar stenosis with neurogenic claudication: Assessment and Plan: >50% improvement from prior caudal BRIAN ongoing (5) Encounter for long-term use of opiate analgesic: Assessment and Plan: I feel these medications are improving the patient's quality of life and allow them to tolerate activities of daily living as well as participate in recreational activity.? The patient does not report intolerable side effects. The patient is NOT opioid naive and non-pharmacologic and non-opioid treatment has failed to significantly relieve the patient's pain and improve functionality. The patient has a diagnosis that is related to a somatic or visceral pain etiology. ? ?? I reviewed with the patient the potential risks and side effects with the use of? opioid medications including but not limited to respiratory depression,? sedation, and even . Within the last 12 months I have verified the patient has access to naloxone should? these effects occur. The patient was advised to let? their family know they had Naloxone in case they would need to administer? the medication. I advised the patient to avoid the use of any other? sedation substances including alcohol, THC, and benzodiazepines while? taking opioid medications due to the risk of compounding side effects and? detrimental outcomes. within the last 12 months I have reviewed the [employer], pain treatment agreement and urine drug screen.? ?? A drug screen was completed within the last year, and no aberrancies were noted regarding their use of controlled substances. The patient understands they are subject to the terms and conditions of the pain contract that they have signed. ? ?? I have checked an OARRS report on this patient today and there are no aberrancies noted in the prescribing history.? Plan The patient has had over 3 months of moderate to severe low back pain with functional impairment and inadequate response to conservative care including NSAIDS (unless there are contraindication such as concurrent blood thinners), multiple oral or topical pain medications, and home exercise program/physical therapy.? Patient has completed >6 weeks of guided home exercise program and/or formal physical therapy program without relief of their symptoms.? I have reviewed the imaging of the lumbar spine and no red flags were identified.? The Oswestry Disability Index was completed, and the patient scored a 24%.? bilateral L4-5 L5-S1 facet medial branch RFA for facet mediated pain. prior RFA provided at least 50% improvement greater than 6 months continue HEP as tolerated continue nortriptyline 25mg daily continue baclofen 10mg prn pain/spasms f/u after procedure
== END 2025-01-27 13:11 | disposition home or self-care (01) ==
LOC: PM 13:11
PROVIDERS: PCP Family Medicine; Visit Provider Nurse Practitioner
DX: M47.816 Spondylosis without myelopathy or radiculopathy, lumbar region (principal); Z79.891 Long term (current) use of opiate analgesic; M96.1 Postlaminectomy syndrome, not elsewhere classified; M48.062 Spinal stenosis, lumbar region with neurogenic claudication
CPT/HCPCS: G0463